=== PATIENT | male | born 1950 | race Caucasian/White ===

== ENCOUNTER 2016-11-10 12:48 | Inpatient (IN) | payer MEDICARE, MEDICAID ==
[~2016-11-10] VITALS: Ht 182.8 cm; Wt 103.9 kg
[2016-11-10] VITALS (10 sets, daily range): BP systolic 115–170; BP diastolic 71–97
--- NOTE | ~2016-11-10 | EKG ---
[place], [place] ELECTROCARDIOGRAM REPORT NAME: DEBORAH SANTACRUZ UNIT #: [id number] ROOM: 421 DOCTOR: PAM ALVARADO MD BIRTHDATE: [birth year] DOS: 11/11/2016 TIME: 1236 hours. Normal sinus rhythm at 60 beats per minute. Poor R-wave progression is present. Possible old anterior wall ME. An old inferior wall ME is also noted. There is no significant change from ECG of last week. PAM ALVARADO MD CM:EKGRPT:ELECTROCARDIOGRAM REPORT [id number] 44 PAM ALVARADO MD
--- NOTE | ~2016-11-10 | CON ---
[place], [place] REPORT OF CONSULTATION NAME: DEBORAH SANTACRUZ [facility] #: [id number] UNIT #: [id number] ROOM: 421 DOCTOR: PAM ALVARADO MD BIRTHDATE: [birth year] DOS: 11/12/2016 HISTORY OF PRESENT ILLNESS: This is a 66-year-old -[place] man who is in and out of this hospital almost every week, he has had admissions in [facility] as well and generally nothing really pans out and he is discharged. He comes back again with vague symptoms. He was discharged home just a few days ago and now comes back because of right lateral abdominal pain. He does not complain of any chest pain or heaviness in the chest. He has chronic shortness of breath. He has not had any palpitation, dizziness, or loss of consciousness, although he has taken a fall recently. He has morbid obesity, COPD, some speech problems, essential hypertension, diabetes mellitus, hyperlipidemia, cholecystectomy, but a year and a half or 2 ago, I had stented the right coronary artery and subsequent study had demonstrated patent stent. His LV systolic function has been normal. He does not smoke. I believe he lives at home. He is on numerous medications. His cardiac medications included atorvastatin, carvedilol, furosemide, Protonix, potassium chloride, ranolazine, nitroglycerin sublingually. PHYSICAL EXAMINATION: GENERAL: The patient is morbidly obese. He has a rash on the left side of the face and the neck. His complexion is fine. He is not tachypneic. His temperature is normal. VITAL SIGNS: Pulse is regular at 80 beats per minute, blood pressure of 128/67. NECK: JVP difficult to assess because of short and big neck. HEART: No murmurs are present. There is no cardiomegaly. There is no edema in lower extremities. LUNGS: Breath sounds are fairly decent with some adventitious sounds. LABORATORY DATA: An ECG showed normal sinus rhythm with old inferior wall AZ and perhaps old anterior wall AZ, although by his coronary angiogram, LAD was patent. Troponin I level is also normal. Hemoglobin is 7.7 grams. Creatinine 1.9. IMPRESSION: 1. This patient has coronary artery disease, but does not complain of chest pain. His pain is mainly on the right side of the abdomen. Initially, he winces, although the wince is rather delayed due to palpation and then I tried to distract him and he did not have any tenderness. 2. Severe anemia is present, he may need blood transfusion to raise his hemoglobin to 9-10 grams. 3. Chronic kidney disease. [place], [place] REPORT OF CONSULTATION NAME: DEBORAH SANTACRUZ UNIT #: [id number] ROOM: 421 DOCTOR: PAM ALVARADO MD BIRTHDATE: [birth year] I thank you for this consult. PAM ALVARADO MD CM:CONSTR:REPORT OF CONSULTATION 1738 11/13/16 0446 interface
--- NOTE | ~2016-11-10 | CON ---
[place], [place] REPORT OF CONSULTATION NAME: DEBORAH SANTACRUZ [facility] #: [id number] UNIT #: [id number] ROOM: 421 DOCTOR: LAURA WHITTINGTON M.D. BIRTHDATE: [birth year] DOS: 11/11/2016 WOUND CARE CONSULT HISTORY OF PRESENT ILLNESS: This is a 66-year-old male known to the Wound Clinic for a diabetic foot ulcer with history of recent osteomyelitis that was treated with oral Zyvox. The patient was taken to surgery and had incision and drainage of infection. This was done at the end of August and he has been following up in the Wound Clinic since September. He has been in and out of the hospital on multiple occasions since has been initially to the Wound Clinic with multiple complaints, complaints have varied from recurrent chest pains, recurrent shortness of breath, generalized weakness, difficulty ambulating. He was recently discharged from the hospital on 11/07/2016 where he said he felt good as I did see him upon the day of discharge and it was reported to me that the patient had been walking on his foot without a protection, without a sock or a shoe, just the dressing. He continues to have an open wound on the bottom of his right foot. In any case, the patient was discharged home and returns through the Emergency Room Department on 11/10/2016 with complaints of difficulty taking his medications, repetitive nausea, vomiting, generalized weakness since discharge. He was having difficulty keeping down any food or pills. PAST MEDICAL HISTORY: He has got multiple problems including anxiety which is chronic, ataxia, BPH, coronary artery disease, multiple stents, apparently recent acute SC with ST elevation, chronic diastolic heart failure, chronic kidney disease, COPD, depression, dizziness, gastric ulcer, GERD, gout, history of CVA with residual deficit, hypothyroidism, insulin-dependent diabetes, mixed hyperlipidemia, normocytic anemia, non-ST elevation SC, obesity, chronic osteomyelitis, acute renal calculus, seizure disorder, severe protein calorie malnutrition, history of chronic shortness of breath, ST elevation myocardial infarction, temporal arteritis. PAST SURGICAL HISTORY: He is status post coronary artery stents, rotator cuff surgery, right total hip replacement, laparoscopic cholecystectomy, status post appendectomy, he is status post left great toe amputation, status post amputation of the left foot, of a toe from the left foot as well. SOCIAL HISTORY: He does drink alcohol, 6-pack of beer a week, former smoker, history of cocaine abuse. The patient denies drug use. The patient reports that home health has not been coming in any more. Apparently, they discharged him from their practice. He was told by home health that his home situation is very unsanitary. FAMILY HISTORY: Mother has some history of stomach cancer, at age 40-50; father, coronary artery disease. ALLERGIES: Multiple and include DOXYCYCLINE, PIPERACILLIN, TAZOBACTAM, VANCOMYCIN. CURRENT MEDICATIONS: That have been ordered are as follows: Vitamin D 1999 [place], [place] REPORT OF CONSULTATION NAME: DEBORAH SANTACRUZ UNIT #: [id number] ROOM: 421 DOCTOR: LAURA WHITTINGTON M.D. BIRTHDATE: [birth year] units daily, sodium bicarbonate 650 p.o. b.i.d., Micro-K 10 mEq t.i.d., Zyvox 600 p.o. b.i.d., iron sulfate 325 daily, Lovenox 40 subcutaneously daily, Cymbalta 60 daily, Depakote 250 daily, Protonix 40 daily, levothyroxine 125 mcg daily, Ranexa 500 q.12, Dulera 200 mcg daily, Levemir subcutaneously q.12 hours, Neurontin 300 q.8, Coreg 25 p.o. b.i.d., Tessalon Perles 100 mg q.8 hours, Lipitor 40 daily, albuterol nebs p.r.n., magnesium, just a one-time dose. REVIEW OF SYSTEMS: The patient reports some chronic shortness of breath with exertion. Currently, he denies any chest pain. He said he had some abdominal discomfort, nausea. No fevers or chills are noted, but he did state that he felt cold at home. He does have a rash present on his face. He reports that his dressing was removed yesterday in hospital. I had put a dressing prior to discharge on Thursday, it should have been changed on Thursday. However, apparently he kept the dressing on and it was removed yesterday; however, a new dressing was not applied, not even just plain Telfa or 4 x 4, it was just open to air when I walked into the room. He offers no other specific complaints. PHYSICAL EXAMINATION: VITAL SIGNS: From this morning, his temperature is 97.7, pulse of 71, respirations 20, blood pressure is 102/63, pulse ox is 98%. GENERAL: The patient appears to be in no acute respiratory distress. He is pleasant and cooperative. He does have a diffuse erythematous rash on his face. He had had a rash on his face on prior occasions; however, does seem more prominent today than before. NECK: I do not appreciate any JVD. LUNGS: Fairly clear. CARDIOVASCULAR: S1, S2 regular rate and rhythm. ABDOMEN: Soft, slightly tender in the epigastric region on examination at this time. EXTREMITIES: He has no edema. His pulses are palpable. He has got a wound that is measuring approximately 7 cm in length by 0.7 in width and 0.5 in depth, possibly in the deepest part; however, it measures slightly deeper at 0.6-0.7. The undermining that was noted last time is much improved by my exam, there is still some fibrin slough present in the most distal part of the wound, the closest by the toes. There is some necrotic tissue still present, but overall I do not appreciate any redness. There is no purulence. There is no odor and it is not acutely tender to touch. I can feel bone with probing, however, it is not visible as it was last time I had examined him. LABORATORY DATA: His white count is 6.5. His hemoglobin is 8.8, hematocrit is 27.6, platelets are 103. Initial troponin was negative. Blood cultures were done. Chest x-ray shows no acute pulmonary process. The patient had an abdominal and pelvic CT which showed a hyperdense cyst of the lower pole of the right kidney, cortical thinning of the kidneys, diverticulosis in the sigmoid area, status post cholecystectomy. His BUN was 35, his creatinine is 2.21. Hemoglobin A1c is 8.6. Lactic acid is 3.4, down to 2.9. C-reactive protein on the 10th was 1.79, last albumin is 2.7 and prealbumin is 12. ASSESSMENT AND PLAN: Multiple medical problems in this patient that are being managed by his medical team. His wound, however, seems to be stable. At this [place], [place] REPORT OF CONSULTATION NAME: DEBORAH SANTACRUZ UNIT #: [id number] ROOM: [facility] DOCTOR: NELSY Rodriguez,LAURA BIRTHDATE: [birth year] point clinically, it does not appear to be cellulitic in any way. I do not see any significant change as far as the wound goes. In fact, it does seem to be filling in. The undermined areas are also improved. I would wait to see what Infectious Disease says regarding this. If there is concern of a possible source of infection, perhaps an imaging study such as a CT scan without contrast may be helpful. He is on oral Zyvox. He does have a rash present on his face, the etiology of the rash is unclear, might possibly be related to medications at this point. The dressing orders were written for. I would continue to use some of the TheraHoney to help with some of the necrotic tissue that is still present and also pack the wound with Aquacel Ag. A very bulky dressing was applied and a gentle Yariel wrap was applied over this to help keep the dressing in place. I was concerned that when I walked into the room, the patient did not have a dressing on. He reports having no dressing on since yesterday when it was taken off, so this is of concern. I would definitely want this wound to be covered. I encouraged him to make sure that if he is going to be ambulating, he needs to keep the area protected, he does have a postop shoe. I will follow along with you. LAURA WHITTINGTON MD CM:CONSTR:REPORT OF CONSULTATION 1408 11/24/16 1219 interface
--- NOTE | ~2016-11-10 | CON ---
[place], [place] REPORT OF CONSULTATION NAME: DEBORAH SANTACRUZ [facility] #: [id number] UNIT #: [id number] ROOM: 421 DOCTOR: BLADIMIR MOYA MD BIRTHDATE: [birth year] DOS: 11/11/2016 REASON FOR CONSULTATION: Osteomyelitis, on treatment. CHIEF COMPLAINT: Dizziness. HISTORY OF PRESENTING ILLNESS: This is a 66-year-old man whom I have recently seen about a week ago, now presenting with dizziness and nausea and vomiting. He was recently admitted and discharged a few days ago for same complaints and symptomatically got better in the next few days and was discharged home. He had been on oral Zyvox twice daily for the last 5 weeks. He will finish 6 weeks of treatment next week for the osteomyelitis associated with MRSA and he had been following up with wound care for the same. His wound had been healing well except the proximal portion, which is still slow to heal, but no real drainage. Of note, he admitted that he had been taking Cymbalta at home, although he was advised not to take Cymbalta while on Zyvox. PAST MEDICAL HISTORY: Positive for history of anxiety, ataxia, BPH, coronary artery disease, diastolic heart failure, chronic kidney disease, COPD, depression, dizziness, GERD, gout, stroke, hypothyroidism, insulin-dependent diabetes mellitus, hyperlipidemia, coronary artery disease, osteomyelitis, temporal arteritis. PAST SURGICAL HISTORY: History of coronary artery stent, rotator cuff surgery, total hip replacement, laparoscopic cholecystectomy, amputation of left great toe, and left fourth toe amputation, I and D. SOCIAL HISTORY: Still smokes about 6 pack of beer per week. Former smoker, occasionally cocaine use. No marijuana use. FAMILY HISTORY: Mother had stomach cancer. Father had coronary artery disease. ALLERGIES: Reviewed. HE IS ALLERGIC TO PIPERACILLIN, TAZOBACTAM, which causes him to have rash and trouble breathing as well as VANCOMYCIN with face rash and trouble breathing. Per documentation, he is allergic to DOXYCYCLINE, which causes rash and trouble breathing, but when I asked the patient, he said he did not know that he is allergic to doxycycline and he only has allergy to PENICILLIN antibiotics and he is willing to try doxycycline. HOME MEDICATIONS: Reviewed. CURRENT INPATIENT MEDICATIONS: Reviewed. REVIEW OF SYSTEMS: A 14-review of systems otherwise negative unless otherwise specified in the HPI. PHYSICAL EXAMINATION: VITAL SIGNS: Showed temperature of 97.3, heart rate 65, blood pressure of 102/57, respiratory rate of 20, pulse ox 98 on room air. GENERAL APPEARANCE: Awake, alert, oriented to time, place and person. No acute [place], [place] REPORT OF CONSULTATION NAME: DEBORAH SANTACRUZ UNIT #: [id number] ROOM: 421 DOCTOR: BLADIMIR MOYA MD BIRTHDATE: [birth year] distress. Oral cavity moist and intact. NECK: Supple, no JVD, no lymphadenopathy. HEART: Regular rate and rhythm. S1, S2 normal. No murmurs, gallops or rubs. LUNGS: Clear to auscultation. Equal air entry bilaterally. ABDOMEN: Soft, nontender, nondistended. Bowel sounds heard. EXTREMITIES: Warm to touch. Pulses palpated bilaterally equal. Right foot with a 7-cm wound on the plantar aspect of the foot with a slow healing on the proximal portion. LABORATORY DATA: Reviewed. WBC of 6.5, hemoglobin of 8.8, platelets were 103. Chemistry showing BUN of 35; and creatinine of 2.2, baseline of 1.65. Microbiology from the wounds in the past showed MRSA sensitive to doxycycline, Bactrim, and clindamycin. Sed rate and C-reactive protein reviewed. Pathology in the past on 10/08/2016 has shown acute osteomyelitis. Lactic acid was 2.4 on admission, later it was 2.9. ASSESSMENT AND PLAN: 1. Adverse drug reaction likely secondary to linezolid with interaction with Cymbalta. Linezolid is known to cause a serotonin-like syndrome with SSRI, but the patient has no classical symptoms of serotonin syndrome. He has nausea and vomiting, but no high grade fever. He does have lactic acidosis. I will discontinue the Zyvox at this point. He was asked not to take Cymbalta as well before, but he had been taking the same in the last few weeks. I would repeat lactic acid tomorrow. I will get a sed rate and C-reactive protein repeated. He also a rash, which he thinks is secondary to allergy to topical moisturizers he had been using on his previous admission in the hospital. 2. Acute osteomyelitis of the right foot with MRSA. Currently, on week 5 of Zyvox. We will stop Zyvox and switch him to doxycycline p.o. 100 mg twice daily for one more week. The patient has an allergy documented to doxycycline, but the patient says he is allergic only to PENICILLIN ANTIBIOTICS AND VANCOMYCIN. He is willing to try doxycycline. 3. Acute follicular rash on his face, chest and upper back, likely mucocutaneous candidiasis. Try topical antifungals and see how he responds. We will also repeat sed rate and CRP tomorrow morning and follow. BLADIMIR MOYA MD CM:CONSTR:REPORT OF CONSULTATION 1702 11/28/16 0850 interface
[~2016-11-10 12:48] MED LIST: 'PARAFON FORTE500 M1 PO; 'XANAX1 MG PO; ABILIFY2 MG PO; ACETAMINOPHEN-H1 TA2 PO; ACTOS45 MG PO; ALBUTEROL0.09 MG/A2 IH; ALLOPURINOL100 MG PO; ALPRAZOLAM1 M2 PO; AMLODIPINE10 MG PO; AMLODIPINE5 MG PO; AMOX/CLAV POT 81 TAB PO; APLISOL5 TU/0.1 M ID; APRESOLINE25 MG PO; ASPIR LOW81 MG PO; ASPIRIN ADULT L81 M2 PO; ASPIRIN325 MG PO; ASPIRIN81 M1 PO; ATARAX25 MG PO; ATIVAN1 MG PO; AUGMENTIN 875 M1 TA1 PO; AUGMENTIN 875 M1 TAB PO; BACTRIM DS 8001 TA1 PO; BENADRYL25 M1 PO; CALCIUM CITRATE1 TA7 PO; CATAFLAM50 MG PO; CEFTIN250 MG PO; CENTRUM1 TAB PO; CILOXAN 10 ML10 ML; CILOXAN 5 ML5 M1 OP; CILOXAN 5 ML5 M1 OT; CIPRO500 MG PO; CIPRO500 MG/5 M PO; CIPROFLOXACIN 110 ML OPH; CIPROFLOXACIN 55 M2 OP; CIPROFLOXACIN500 MG PO; CLARITIN10 MG PO; CLINDAMYCIN HC300 MG PO; COLACE100 MG PO; COREG12.5 M1 PO; COREG25 MG PO; CRESTOR20 MG PO; CRESTOR5 MG PO; CYMBALTA60 M1 PO; CYMBALTA60 MG PO; Carafate1 GM PO; Carafate1 GM/10 ML PO; DARVOCET N 1001 TAB PO; DAYPRO600 M1 PO; DEEP SEA 45 ML45 ML NAS; DEPAKOTE DR500 MG PO; DEPAKOTE SPRIN125 MG PO; DEPAKOTE250 MG PO; DIVALPROEX SOD250 MG PO; DIVALPROEX SOD500 MG PO; DOXYCYCLINE MO100 MG PO; DULCOLAX R; DULCOLAX10 MG R; DULOXETINE20 MG PO; DULOXETINE60 MG PO; DUONEB 3 MG/3 ML3 M1 INH; Depakote ER500 MG PO; Depakote250 MG PO; Depakote500 MG PO; Duoneb 3ML 3 MG/3 ML INH; EFFIENT10 M1 PO; ELIMITE 5%60 GM T; FEOSOL325 MG PO; FERROUS SULFATE65 MG PO; FLAGYL500 MG PO; FLEET 135 ML135 ML R; FLEET ENEMA 13135 ML R; FLEXERIL10 MG PO; FLOMAX0.4 MG PO; FOLIC ACID1 MG PO; FUROSEMIDE20 M1 PO; GABAPENTIN300 MG PEG; GLIPIZIDE10 MG PO; GLIPIZIDE5 MG PO; HALDOL0.5 MG PO; HEP-LOCK100 U/ML IV; HUMALOG SC; HUMALOG100 U/ML SC; HYDROCODONE BIT1 T11 PO; HYDROCODONE-APA1 TA1 PO; IMDUR SA30 MG PO; IMDUR SA60 M1 PO; INSULIN-HUMA100 U/ML SC; KEFLEX500 MG PO; KLOR-CON 1010 ME1 PO; KLOR-CON M1010 ME1 PO; LANTUS SOLOS100 U/M1 SC; LANTUS100 U/ML SC; LANTUS100 U/ML SQ; LEVAQUIN500 M2 PO; LEVAQUIN750 M1 PO; LEVEMIR FLEX100 U/ML SC; LEVEMIR10 ML SQ; LEVOFLOXACIN500 MG PO; LEVOTHYROXIN0.025 M1 PO; LEVOTHYROXIN0.025 MG PO; LEVOTHYROXIN0.125 M1 PO; LIDODERM 5% PATC1 EA T; LIPITOR20 MG PO; LIPITOR40 MG PO; LISINOPRIL10 M1 PO; LISINOPRIL20 MG PO; LODINE PO; LOMOTIL 0.025 M1 TA1 PO; LOPRESSOR50 M1 PO; Lopressor25 MG PO; MAG-AL PLUS 3030 ML PO; MAG-OX 400400 MG PO; MAGNESIUM OXID400 MG PO; MAGOX 400400 MG PO; MEDROL DOSEPAK4 MG PO; MERREM IV1 GM IV; METICORTEN1 MG PO; METOPROLOL SR25 MG PO; METOPROLOL SR50 MG PO; METOPROLOL SUCC25 M2 PO; METOPROLOL SUCC50 M1 PO; METOPROLOL50 MG PO; MIRALAX17 GM PO; MIRTAZAPINE15 M2 PO; MOM30 ML PO; MOTRIN600 MG PO; MOTRIN800 MG PO; MULTIPLE VITAMI1 CAP PO; NAPROSYN500 MG PO; NAPROXEN250 MG PO; NATURE'S BLEND F1 MG PO; NEURONTIN100 MG PO; NEURONTIN300 MG PO; NEURONTIN600 MG PO; NITROSTAT0.4 MG SL; NO MED LIST; NORCO 325 MG-51 TAB PO; NORCO 5-325 TA1 EACH PO; NORFLEX100 MG PO; NORVASC5 MG PO; NOVOLIN N100 U/ML SC; NOVOLOG FLEX100 U/ML SC; NOVOLOG1 UNIT/0.0 SC; OMNICEF300 MG PO; OXYCODONE5 M1 PO; PANTOPRAZOLE SO40 MG PO; PERCOCET 325 MG1 TA2 PO; PLAVIX75 M1 PO; POTASSIUM CHLO10 ME4 PO; PRAVACHOL40 MG PO; PRAVASTATIN SOD40 MG PO; PREDNISONE10 MG PO; PREDNISONE20 M1 PO; PRILOSEC10 MG PO; PRILOSEC20 M1 PO; PRILOSEC20 M2 PO; PRILOSEC20 MG PO; PRINIVIL20 M1 PO; PROAIR HFA8.5 GM INH; PROTONIX40 MG PO; PULMICORT RES0.25 M1 INH; PULMICORT RESP0.5 MG INH; RANEXA500 M1 PO; RANEXA500 MG PO; REMERON15 M2 PO; ROBAXIN750 MG PO; SANTYL250 U/GM T; SENEXON-S 50 MG1 TAB PO; SEROQUEL100 MG PO; SEROQUEL50 MG PO; SLOW MAG 110 MG64 MG PO; SODIUM BICARBO650 MG PO; SYMBICORT1 AE1 IH; SYMBICORT1 AE1 INH; SYMBICORT1 AER IH; TESSALON PERLE100 M1 PO; TICAGRELOR PO; TOPROL XL50 M1 PO; TOPROL-XL50 MG PO; TORADOL10 MG PO; TRAMADOL HCL50 MG PO; TRIAMCINOLONE AC0.1% T; TYLENOL ES500 MG PO; TYLENOL325 M1 PO; TYLENOL325 M2 PO; Tobradex 0.3-0.15 ML OPH; ULTRAM50 MG PO; VENTOLIN H0.09 MG/AC INH; VIBRAMYCIN100 MG PO; VICODIN 5-3001 EACH PO; VICODIN 5/500 505 MG PO; VICODIN 500 MG-1 TAB PO; VICODIN ES 7501 TA1 PO; VISTARIL25 M2 PO; VITAMIN D31000 IU PO; VITAMIN D32000 UNIT PO; VITAMIN D50000 I1 PO; VITAMIN D50000 I3 PO; VOLTAREN50 MG PO; XANAX0.5 MG PO; XANAX1 MG PO; ZANTAC 150150 MG PO; ZITHROMAX Z PA250 MG PO; ZITHROMAX250 MG PO; ZOFRAN ODT4 MG PO; ZOFRAN ODT4 MG SL; ZOFRAN4 MG PO; ZOVIRAX800 MG PO; ZYVOX600 MG PO
[2016-11-10 14:03] LABS: BASO % 0.2 % (0.0-1.0); EOS # 0.2 10*3/uL (0.0-0.4); EOS % 1.9 % (1.0-4.0); HEMATOCRIT 34.4 % (42.0-52.0); HEMOGLOBIN 11.1 g/dl (14.0-18.0); LYMPH # 2.4 10*3/uL (1.3-4.4); MEAN CELL VOLUME 88.4 fl (80.0-94.0); MEAN CORPUSCULAR HGB 28.5 pg (27.0-31.0); MEAN CORPUSCULAR HGB CONC 32.3 g/dl (33.0-37.0); MEAN PLATELET VOLUME 11.3 fl (9.6-12.3); MONO # 0.7 10*3/uL (0.1-1.0); MONO % 7.4 % (3.0-9.0); NEUT # 6.5 10*3/uL (2.3-7.9); NEUT % 66.2 % (47.0-73.0); PLATELET COUNT AUTOMATED 130 10*3/uL (130-400); RED BLOOD COUNT 3.89 10*6/uL (4.50-5.90); RED CELL DISTRI WIDTH 18.2 % (0-14.5); WHITE BLOOD COUNT 9.8 10*3/uL (4.8-10.8)
[2016-11-10 14:22] LABS: ALBUMIN 3.3 gm/dl (3.1-4.5); BILIRUBIN, TOTAL 0.6 mg/dl (0.2-1.0); POTASSIUM 5.1 mmol/L (3.5-5.1); TOTAL PROTEIN 7.1 gm/dL (6.4-8.2)
[2016-11-10 16:00] LABS: LA>2 REFLEX 2 HR DRAW NOW
[2016-11-10 16:15] LABS: LA>2 RFLX FOLLOW UP AT 2 HRS 2.4 mmol/L (0.4-2.0)
[2016-11-10 16:18] LABS: INTERNATIONAL NORM RATIO 1.1 (2.0-3.5)
[2016-11-10 16:27] LABS: MAGNESIUM 1.1 mg/dL (1.5-2.1)
[2016-11-10 18:07] LABS: LA>2 REFLEX 4 HR DRAW NOW
[2016-11-10 18:51] LABS: CKMB 1.9 ng/ml (0.5-3.6)
[2016-11-11] VITALS: BP 105/55
[2016-11-11 00:46] LABS: CKMB 1.7 ng/ml (0.5-3.6)
[2016-11-11 06:17] LABS: BASO % 0.3 % (0.0-1.0); EOS # 0.3 10*3/uL (0.0-0.4); EOS % 3.9 % (1.0-4.0); LYMPH # 2.1 10*3/uL (1.3-4.4); MEAN CELL VOLUME 89.6 fl (80.0-94.0); MEAN CORPUSCULAR HGB 28.6 pg (27.0-31.0); MEAN CORPUSCULAR HGB CONC 31.9 g/dl (33.0-37.0); MEAN PLATELET VOLUME 11.5 fl (9.6-12.3); MONO # 0.7 10*3/uL (0.1-1.0); MONO % 10.9 % (3.0-9.0); NEUT # 3.4 10*3/uL (2.3-7.9); NEUT % 52.4 % (47.0-73.0); PLATELET COUNT AUTOMATED 103 10*3/uL (130-400); RED BLOOD COUNT 3.08 10*6/uL (4.50-5.90); RED CELL DISTRI WIDTH 17.8 % (0-14.5); WHITE BLOOD COUNT 6.5 10*3/uL (4.8-10.8)
[2016-11-11 06:20] LABS: CKMB 0.8 ng/ml (0.5-3.6)
[2016-11-11 06:25] LABS: HEMATOCRIT 27.6 % (42.0-52.0); HEMOGLOBIN 8.8 g/dl (14.0-18.0)
[2016-11-11 06:29] LABS: INTERNATIONAL NORM RATIO 1.1 (2.0-3.5); PROTHROMBIN TIME 11.9 SECONDS (9.0-12.4)
[2016-11-11 06:32] LABS: ALBUMIN 2.7 gm/dl (3.1-4.5); BILIRUBIN, TOTAL 0.5 mg/dl (0.2-1.0); POTASSIUM 4.5 mmol/L (3.5-5.1); TOTAL PROTEIN 5.8 gm/dL (6.4-8.2)
[2016-11-11 06:41] LABS: FREE T4 0.92 ng/dl (0.76-1.46); MAGNESIUM 1.7 mg/dL (1.5-2.1)
[2016-11-11 06:42] LABS: THYROID STIM HORMONE (HS) 7.12 uIU/ml (0.358-4.75)
[2016-11-11 08:00] VITALS: BP 102/63
[2016-11-11 12:00] VITALS: BP 84/60
[2016-11-11 15:47] LABS: BILIRUBIN NEGATIVE (NEGATIVE); BLOOD NEGATIVE (NEGATIVE); COLOR YELLOW (YELLOW); GLUCOSE 1+ (NEGATIVE); KETONE TRACE (NEGATIVE); LEUKO ESTERASE NEGATIVE (NEGATIVE); NITRITE NEGATIVE (NEGATIVE); PROTEIN 1+ (NEGATIVE); SPECIFIC GRAVITY >= 1.030 (1.005-1.030); UROBILINOGEN 0.2 E.U./dl (0.2-1.0)
[2016-11-11 16:00] VITALS: BP 102/57
[2016-11-11 16:04] LABS: CLARITY SL CLOUDY (CLEAR); HYALINE CAST 35-40; MUCOUS TRACE; RBC 0-2 rbc/hpf (0-2); URINE REFLEX COMMENT NO (NO)
[2016-11-11 18:24] LABS: CKMB 1.9 ng/ml (0.5-3.6)
[2016-11-11 20:00] VITALS: BP 119/62
[2016-11-12] VITALS: BP 120/65
[2016-11-12 01:25] LABS: CKMB 1.3 ng/ml (0.5-3.6)
[2016-11-12 06:32] LABS: BASO % 0.2 % (0.0-1.0); EOS # 0.2 10*3/uL (0.0-0.4); EOS % 4.4 % (1.0-4.0); HEMATOCRIT 24.4 % (42.0-52.0); HEMOGLOBIN 7.7 g/dl (14.0-18.0); LYMPH # 1.8 10*3/uL (1.3-4.4); LYMPH % 34.2 % (27.0-41.0); MEAN CELL VOLUME 90.7 fl (80.0-94.0); MEAN CORPUSCULAR HGB 28.6 pg (27.0-31.0); MEAN CORPUSCULAR HGB CONC 31.6 g/dl (33.0-37.0); MEAN PLATELET VOLUME 11.9 fl (9.6-12.3); MONO # 0.4 10*3/uL (0.1-1.0); MONO % 7.6 % (3.0-9.0); NEUT # 2.8 10*3/uL (2.3-7.9); PLATELET COUNT AUTOMATED 82 10*3/uL (130-400); RED BLOOD COUNT 2.69 10*6/uL (4.50-5.90); RED CELL DISTRI WIDTH 17.8 % (0-14.5); WHITE BLOOD COUNT 5.3 10*3/uL (4.8-10.8)
[2016-11-12 06:43] LABS: CKMB 1.5 ng/ml (0.5-3.6)
[2016-11-12 07:10] LABS: POTASSIUM 5.2 mmol/L (3.5-5.1)
[2016-11-12 07:58] VITALS: BP 150/62
[2016-11-12 12:00] VITALS: BP 100/72
[2016-11-12 16:00] VITALS: BP 128/67
[2016-11-12 20:00] VITALS: BP 128/60
[2016-11-13] VITALS: BP 160/64
[2016-11-13 06:55] LABS: BASO % 0.2 % (0.0-1.0); EOS # 0.2 10*3/uL (0.0-0.4); EOS % 2.9 % (1.0-4.0); HEMATOCRIT 24.8 % (42.0-52.0); HEMOGLOBIN 7.8 g/dl (14.0-18.0); LYMPH # 1.7 10*3/uL (1.3-4.4); LYMPH % 29.4 % (27.0-41.0); MEAN CELL VOLUME 90.2 fl (80.0-94.0); MEAN CORPUSCULAR HGB 28.4 pg (27.0-31.0); MEAN CORPUSCULAR HGB CONC 31.5 g/dl (33.0-37.0); MEAN PLATELET VOLUME 11.8 fl (9.6-12.3); MONO # 0.5 10*3/uL (0.1-1.0); MONO % 8.7 % (3.0-9.0); NEUT # 3.4 10*3/uL (2.3-7.9); NEUT % 58.1 % (47.0-73.0); PLATELET COUNT AUTOMATED 94 10*3/uL (130-400); RED BLOOD COUNT 2.75 10*6/uL (4.50-5.90); RED CELL DISTRI WIDTH 17.6 % (0-14.5); WHITE BLOOD COUNT 5.9 10*3/uL (4.8-10.8)
[2016-11-13 07:29] LABS: POTASSIUM 5.5 mmol/L (3.5-5.1)
[2016-11-13 07:43] VITALS: BP 140/74
[2016-11-13] MEDS ORDERED: DOXYCYCLINE MO100 M1 PO (11:02)
[2016-11-13] MEDS ORDERED: LASIX20 MG PO (11:02)
[2016-12-11] MEDS ORDERED: PREDNISONE20 M1 PO (14:58)
[2017-01-01] MEDS ORDERED: PRINIVIL20 M1 PO (10:22)
[2017-01-01] MEDS ORDERED: METOPROLOL SUCC50 M1 PO (10:23)
[2017-01-01] MEDS ORDERED: PANTOPRAZOLE SO40 MG PO (10:24)
[2017-01-01] MEDS ORDERED: K-TAB10 MEQ PO (10:25)
[2017-01-01] MEDS ORDERED: RANEXA500 M1 PO (10:26)
[2017-01-01] MEDS ORDERED: ANTACID II 1601 CTB PO (10:27)
[2017-01-01] MEDS ORDERED: FINASTERIDE5 M1 PO (10:28)
[2017-01-01] MEDS ORDERED: AMLODIPINE BES1 TAB PO (10:28)
[2017-01-01] MEDS ORDERED: TAMSULOSIN HCL0.4 MG PO (10:29)
[2017-01-01] MEDS ORDERED: INVANZ1 GM IV (10:30)
[2017-01-01] MEDS ORDERED: LEVEMIR10 ML SC (10:30)
[2017-01-07] MEDS ORDERED: AMLODIPINE BESYL5 MG PO (09:40)
== END 2016-11-13 12:15 | disposition home or self-care (01) | DRG 871 ==
LOC: ED 12:48 → EDHOLD 17:47 → 4E 17:47
PROVIDERS: Family Medicine; Hospitalist; Registered Nurse
DX: A41.9 Sepsis, unspecified organism (principal); E43 Unspecified severe protein-calorie malnutrition; I13.0 Hypertensive heart and chronic kidney disease with heart failure and stage 1 through stage 4 chronic kidney disease, or unspecified chronic kidney disease; B37.89 Other sites of candidiasis; M86.171 Other acute osteomyelitis, right ankle and foot; L03.115 Cellulitis of right lower limb; N18.3 Chronic kidney disease, stage 3 (moderate); Z96.641 Presence of right artificial hip joint; E11.69 Type 2 diabetes mellitus with other specified complication; K52.9 Noninfective gastroenteritis and colitis, unspecified; D63.8 Anemia in other chronic diseases classified elsewhere; E11.65 Type 2 diabetes mellitus with hyperglycemia; E83.42 Hypomagnesemia; K21.9 Gastro-esophageal reflux disease without esophagitis; E78.2 Mixed hyperlipidemia; E66.01 Morbid (severe) obesity due to excess calories; F41.9 Anxiety disorder, unspecified; I25.10 Atherosclerotic heart disease of native coronary artery without angina pectoris; Z86.73 Personal history of transient ischemic attack (TIA), and cerebral infarction without residual deficits; I25.2 Old myocardial infarction; Z90.49 Acquired absence of other specified parts of digestive tract; Z68.31 Body mass index [BMI] 31.0-31.9, adult; Z87.891 Personal history of nicotine dependence; Z80.0 Family history of malignant neoplasm of digestive organs; Z82.49 Family history of ischemic heart disease and other diseases of the circulatory system; Z88.1 Allergy status to other antibiotic agents; Z79.4 Long term (current) use of insulin; Z79.899 Other long term (current) drug therapy

== ENCOUNTER 2016-11-15 11:46 | Emergency (ER) | payer MEDICARE, MEDICAID ==
[~2016-11-15] VITALS: Ht 182.8 cm; Wt 103.4 kg
[~2016-11-15 11:46] MED LIST changes: +DOXYCYCLINE MO100 M1 PO; +LASIX20 MG PO
[2016-11-15 11:54] VITALS: BP 163/90
[2016-11-15 12:22] LABS: BASO % 0.3 % (0.0-1.0); EOS # 0.2 10*3/uL (0.0-0.4); EOS % 2.2 % (1.0-4.0); HEMATOCRIT 27.3 % (42.0-52.0); HEMOGLOBIN 8.9 g/dl (14.0-18.0); IG # 0.2 10*3/uL (0.0-0.1); LYMPH # 2.2 10*3/uL (1.3-4.4); LYMPH % 24.5 % (27.0-41.0); MEAN CELL VOLUME 88.9 fl (80.0-94.0); MEAN CORPUSCULAR HGB CONC 32.6 g/dl (33.0-37.0); MEAN PLATELET VOLUME 11.2 fl (9.6-12.3); MONO # 0.5 10*3/uL (0.1-1.0); MONO % 6.1 % (3.0-9.0); NEUT # 5.7 10*3/uL (2.3-7.9); NEUT % 64.7 % (47.0-73.0); NUCLEATED RED BLOOD CELL 0.2 % (0.0-0.0); PLATELET COUNT AUTOMATED 114 10*3/uL (130-400); RED BLOOD COUNT 3.07 10*6/uL (4.50-5.90); RED CELL DISTRI WIDTH 18.1 % (0-14.5); WHITE BLOOD COUNT 8.8 10*3/uL (4.8-10.8)
[2016-11-15 12:36] LABS: ALBUMIN 2.9 gm/dl (3.1-4.5); BILIRUBIN, TOTAL 0.4 mg/dl (0.2-1.0); TOTAL PROTEIN 6.3 gm/dL (6.4-8.2)
[2016-11-15 13:17] LABS: BILIRUBIN NEGATIVE (NEGATIVE); BLOOD NEGATIVE (NEGATIVE); CLARITY CLEAR (CLEAR); COLOR YELLOW (YELLOW); GLUCOSE NEGATIVE (NEGATIVE); KETONE NEGATIVE (NEGATIVE); LEUKO ESTERASE NEGATIVE (NEGATIVE); NITRITE NEGATIVE (NEGATIVE); PROTEIN 1+ (NEGATIVE); UROBILINOGEN 0.2 E.U./dl (0.2-1.0)
[2016-11-15 13:31] LABS: BACTERIA TRACE; HYALINE CAST 16-20; URINE REFLEX COMMENT NO (NO)
[2016-11-15] MEDS ORDERED: ZOFRAN ODT4 MG SL (13:39)
[2016-12-11] MEDS ORDERED: PREDNISONE20 M1 PO (14:58)
[2017-01-01] MEDS ORDERED: PRINIVIL20 M1 PO (10:22)
[2017-01-01] MEDS ORDERED: METOPROLOL SUCC50 M1 PO (10:23)
[2017-01-01] MEDS ORDERED: PANTOPRAZOLE SO40 MG PO (10:24)
[2017-01-01] MEDS ORDERED: K-TAB10 MEQ PO (10:25)
[2017-01-01] MEDS ORDERED: RANEXA500 M1 PO (10:26)
[2017-01-01] MEDS ORDERED: ANTACID II 1601 CTB PO (10:27)
[2017-01-01] MEDS ORDERED: FINASTERIDE5 M1 PO (10:28)
[2017-01-01] MEDS ORDERED: AMLODIPINE BES1 TAB PO (10:28)
[2017-01-01] MEDS ORDERED: TAMSULOSIN HCL0.4 MG PO (10:29)
[2017-01-01] MEDS ORDERED: INVANZ1 GM IV (10:30)
[2017-01-01] MEDS ORDERED: LEVEMIR10 ML SC (10:30)
[2017-01-07] MEDS ORDERED: AMLODIPINE BESYL5 MG PO (09:40)
== END 2016-11-15 13:40 | disposition home or self-care (01) ==
LOC: ED 11:46
PROVIDERS: Registered Nurse
DX: R10.30 Lower abdominal pain, unspecified (principal); L03.211 Cellulitis of face; E11.65 Type 2 diabetes mellitus with hyperglycemia; Z95.5 Presence of coronary angioplasty implant and graft; Z96.641 Presence of right artificial hip joint; Z90.49 Acquired absence of other specified parts of digestive tract; Z87.891 Personal history of nicotine dependence; Z88.1 Allergy status to other antibiotic agents; Z88.8 Allergy status to other drugs, medicaments and biological substances

== ENCOUNTER 2016-11-18 09:38 | Emergency (ER) | payer MEDICARE, MEDICAID ==
[~2016-11-18] VITALS: Ht 182.8 cm; Wt 103.4 kg
--- NOTE | ~2016-11-18 | EKG ---
[place], [place] ELECTROCARDIOGRAM REPORT NAME: DEBORAH SANTACRUZ UNIT #: [id number] ROOM: DOCTOR: PAM ALVARADO MD BIRTHDATE: [birth year] DOS: 11/18/2016 TIME: 1002 hours. Normal sinus rhythm at 93 beats per minute. Old inferior wall TN. Probable old anterior wall TN. No previous tracing is available for comparison. PAM ALVARADO MD CM:EKGRPT:ELECTROCARDIOGRAM REPORT 1703 1800 PAM ALVARADO MD
[~2016-11-18 09:38] MED LIST changes: -AMLODIPINE BES1 TAB PO; -AMLODIPINE BESYL5 MG PO; -ANTACID II 1601 CTB PO; -CILOXAN 10 ML10 ML OPH; -COREG6.25 MG PO; -COSOPT 2%-0.5%10 ML OPH; -FINASTERIDE5 M1 PO; -Fioricet 325 MG1 TAB PO; -INVANZ1 GM IV; -K-TAB10 MEQ PO; -LATANOPROST 2.2.5 ML OP; -LEVEMIR10 ML SC; -MAGNESIUM400 MG PO; -TAMSULOSIN HCL0.4 MG PO
[2016-11-18 10:22] LABS: BASO % 0.2 % (0.0-1.0); EOS # 0.2 10*3/uL (0.0-0.4); EOS % 3.4 % (1.0-4.0); HEMATOCRIT 28.9 % (42.0-52.0); HEMOGLOBIN 9.2 g/dl (14.0-18.0); LYMPH # 1.9 10*3/uL (1.3-4.4); LYMPH % 33.4 % (27.0-41.0); MEAN CELL VOLUME 89.8 fl (80.0-94.0); MEAN CORPUSCULAR HGB 28.6 pg (27.0-31.0); MEAN CORPUSCULAR HGB CONC 31.8 g/dl (33.0-37.0); MEAN PLATELET VOLUME 11.1 fl (9.6-12.3); MONO # 0.5 10*3/uL (0.1-1.0); MONO % 8.6 % (3.0-9.0); NEUT % 53.9 % (47.0-73.0); PLATELET COUNT AUTOMATED 127 10*3/uL (130-400); RED BLOOD COUNT 3.22 10*6/uL (4.50-5.90); RED CELL DISTRI WIDTH 18.3 % (0-14.5); WHITE BLOOD COUNT 5.6 10*3/uL (4.8-10.8)
[2016-11-18 10:31] LABS: INTERNATIONAL NORM RATIO 1.1 (2.0-3.5); PROTHROMBIN TIME 12.2 SECONDS (9.0-12.4)
[2016-11-18 10:48] LABS: BILIRUBIN, TOTAL 0.4 mg/dl (0.2-1.0); POTASSIUM 4.7 mmol/L (3.5-5.1); TOTAL PROTEIN 6.4 gm/dL (6.4-8.2)
[2016-11-18 11:18] LABS: URINE AMPHETAMINES < 1000 (1000ng/ml); URINE BARBITURATES < 200 (200ng/ml); URINE COCAINE < 300 (300ng/ml)
[2016-11-18 14:07] VITALS: BP 131/73
[2016-11-18 14:26] LABS: CKMB 0.9 ng/ml (0.5-3.6)
[2016-11-18] MEDS ORDERED: Fioricet 325 MG1 TAB PO (14:39)
[2016-12-11] MEDS ORDERED: PREDNISONE20 M1 PO (14:58)
[2017-01-01] MEDS ORDERED: PRINIVIL20 M1 PO (10:22)
[2017-01-01] MEDS ORDERED: METOPROLOL SUCC50 M1 PO (10:23)
[2017-01-01] MEDS ORDERED: PANTOPRAZOLE SO40 MG PO (10:24)
[2017-01-01] MEDS ORDERED: K-TAB10 MEQ PO (10:25)
[2017-01-01] MEDS ORDERED: RANEXA500 M1 PO (10:26)
[2017-01-01] MEDS ORDERED: ANTACID II 1601 CTB PO (10:27)
[2017-01-01] MEDS ORDERED: AMLODIPINE BES1 TAB PO (10:28)
[2017-01-01] MEDS ORDERED: FINASTERIDE5 M1 PO (10:28)
[2017-01-01] MEDS ORDERED: TAMSULOSIN HCL0.4 MG PO (10:29)
[2017-01-01] MEDS ORDERED: LEVEMIR10 ML SC (10:30)
[2017-01-01] MEDS ORDERED: INVANZ1 GM IV (10:30)
[2017-01-07] MEDS ORDERED: AMLODIPINE BESYL5 MG PO (09:40)
== END 2016-11-18 15:07 | disposition home or self-care (01) ==
LOC: ED 09:38
PROVIDERS: Student in an Organized Health Care Education/Training Program
DX: R07.9 Chest pain, unspecified (principal); R06.02 Shortness of breath; R51 Headache; R05 Cough; J44.9 Chronic obstructive pulmonary disease, unspecified; I25.2 Old myocardial infarction; F41.9 Anxiety disorder, unspecified; I25.10 Atherosclerotic heart disease of native coronary artery without angina pectoris; F32.9 Major depressive disorder, single episode, unspecified; K21.9 Gastro-esophageal reflux disease without esophagitis; Z86.73 Personal history of transient ischemic attack (TIA), and cerebral infarction without residual deficits; M1A.9XX0 Chronic gout, unspecified, without tophus (tophi); I99.8 Other disorder of circulatory system; E30.9 Disorder of puberty, unspecified; E78.5 Hyperlipidemia, unspecified; D64.9 Anemia, unspecified; G40.909 Epilepsy, unspecified, not intractable, without status epilepticus; E78.2 Mixed hyperlipidemia; E11.22 Type 2 diabetes mellitus with diabetic chronic kidney disease; N18.3 Chronic kidney disease, stage 3 (moderate); M86.9 Osteomyelitis, unspecified; F14.10 Cocaine abuse, uncomplicated; F17.200 Nicotine dependence, unspecified, uncomplicated; Z88.1 Allergy status to other antibiotic agents; Z79.899 Other long term (current) drug therapy

== ENCOUNTER → 2016-11-18 | Outpatient (CLI) | payer MEDICARE, MEDICAID ==
[~2016-11-18] MED LIST changes: +AMLODIPINE BES1 TAB PO; +AMLODIPINE BESYL5 MG PO; +ANTACID II 1601 CTB PO; +CILOXAN 10 ML10 ML OPH; +COREG6.25 MG PO; +COSOPT 2%-0.5%10 ML OPH; +FINASTERIDE5 M1 PO; +Fioricet 325 MG1 TAB PO; +INVANZ1 GM IV; +K-TAB10 MEQ PO; +LATANOPROST 2.2.5 ML OP; +LEVEMIR10 ML SC; +MAGNESIUM400 MG PO; +TAMSULOSIN HCL0.4 MG PO
--- NOTE | ~2016-11-18 | PR ---
[place], [place] PROGRESS NOTE NAME: DEBORAH SANTACRUZ [facility] #: [id number] UNIT #: [id number] ROOM: DOCTOR: NELSY RodriguezLAURA BIRTHDATE: [birth year] DOS: 11/18/2016 WOUND CARE PROGRESS NOTE CHIEF COMPLAINT: Followup of diabetic foot ulcer of the right foot. HISTORY OF PRESENT ILLNESS: This is a 66-year-old male with type 2 diabetes, who has had a plantar wound with acute osteomyelitis of the right foot since the beginning of September. He continues to have an open wound that has healed quite a bit since first coming; however, he still has an area that goes straight to bone at the metatarsal area that is still present. He is maintained on oral antibiotics. Recently, he was switched from p.o. linezolid to p.o. doxycycline. The patient has been in and out of the hospitals on multiple occasions since his wound visit last 2 weeks ago for complaints of chest pains and shortness of breath, difficulty ambulating. The patient comes in today without any new specific complaints regarding the wound. He says he still has a lot of discomfort in his leg when he walks not particularly from the wound; however. He does not have home health coming any more. They have refused to come to his house due to unsanitary conditions per patient report. He said he was able to follow up with Dr. Nixon as an outpatient and states that Dr. Nixon told him, he has a lot of blocked areas that he is going to open up and he plans to do this sometime later this week. We do not have a full report regarding this at this time. The patient also has a history of recurrent chest pains. The etiology is unclear and he is complaining to us today in the wound clinic of chest pain that started last night associated with some shortness of breath and he does admit to a cough. He is not really able to tell me any alleviating or aggravating factors at this time, but he says he has had it all night long and still has it today and it is just around the entire chest. PHYSICAL EXAMINATION: VITAL SIGNS: Today, he is afebrile. His pulse is 74, respirations 18, blood pressure is 138/70. WOUND EXAMINATION: The wound is generally measuring slightly smaller at 6.5 x 0.5 x 0.8 in depth. At the distal part of the wound near the metatarsal area, it is still fairly deep. There is some visible necrotic tissue present in that part of the wound itself. The rest of the wound seems to be doing fairly well and looks clean. There is undermining still noted in the 11 to 1 o'clock position with the maximum depth of 1 cm. Debridement was done today of the wound. The tissue removed was fibrin, slough, and subcutaneous tissue. There was really a small amount of bleeding that was controlled with pressure. The post-debridement measurements are unchanged. The patient tolerated the debridement well. Cetacaine spray was used for topical anesthesia. Timeout was conducted prior to the start of the procedure. I did listen to the patient's lungs. They seem to be clear; however, he does have a prolonged expiratory phase. In addition, his cardiovascular exam is S1, S2, regular rate and rhythm. ASSESSMENT AND PLAN: Chronic wound, diabetic foot ulcer, Coleman stage 3. He continues to have bone exposed in the distal part of the wound. I am concerned about this part not healing still. I would like to use a collagen dressing for now and have him follow up in the Wound Clinic in one week. Due to the [place], [place] PROGRESS NOTE NAME: DE[facility]ANT[facility]CRUZ [id number] UNIT #: [id number] ROOM: DOCTOR: LAURA WHITTINGTON M.D. BIRTHDATE: [birth year] complaints of chest pain, I did notify the Emergency Room Department, spoke with Dr. Smith. The patient will be transferred to the ER for further evaluation. In addition, he also has some vascular disease. We do not have the exact report whether where the blockages are but hope to hear from Dr. Nixon's office soon. He apparently is planning a revascularization. I hope this will facilitate healing. I would like to order a more sturdy offloading device for him. We will see if we can order a low Air Walker to see if this will help facilitate healing. In addition, there is no sign of acute infection. I think that he would probably benefit from a wound VAC; however, since he still has a fair amount of depth to the wound. Due to the fact that he does not have home health, so this may be very difficult to realistically order as he is not going to be able to do the change. He does not have anybody who can reliably help him to change the wound VAC and ideally the patient probably would benefit from a detention facility; however, he apparently has refused going to these on multiple occasions. In addition, he also would be considered to meet criteria for HBO as he continues to have bone exposed despite the antibiotics and bone debridement; however, due to his recurrent complaints of shortness of breath and recurrent chest pains, it is not ideal for him to be going into the hyperbaric chamber with these continued complaints. Follow up in the Wound Care Clinic once medically stable in one week. LAURA WHITTINGTON MD CM:RICHI [id number] LAURA WHITTINGTON M.D. 11/19/16 0757 interface
== END ==
LOC: WOUNDCARE 01:49
DX: E11.621 Type 2 diabetes mellitus with foot ulcer (principal); L97.512 Non-pressure chronic ulcer of other part of right foot with fat layer exposed; E11.69 Type 2 diabetes mellitus with other specified complication; M86.071 Acute hematogenous osteomyelitis, right ankle and foot; I99.9 Unspecified disorder of circulatory system; R06.02 Shortness of breath

== ENCOUNTER 2016-11-22 12:47 | Inpatient (IN) | payer MEDICARE, MEDICAID ==
[~2016-11-22] VITALS: Ht 182.9 cm; Wt 105.7 kg
--- NOTE | ~2016-11-22 | PR ---
[place], [place] PROGRESS NOTE NAME: DEBORAH SANTACRUZ [facility] #: [id number] UNIT #: [id number] ROOM: 520 DOCTOR: PAM ALVARADO MD BIRTHDATE: [birth year] DOS: 11/27/2016 SUBJECTIVE: He has been walking around a little bit and has been eating well, has not had any abdominal pain, just some discomfort on the lateral side of the abdomen and the chest. His breathing is fine. No palpitations. This patient has had numerous admissions and he comes to the hospital almost on a weekly or bi-weekly basis and usually workup is negative. PHYSICAL EXAMINATION: GENERAL: The patient who is pleasant, alert, morbidly obese, difficult to comprehend his speech. VITAL SIGNS: Pulse is regular at 64, blood pressure 142/70. NECK: JVP is normal. LUNGS: Clear. EXTREMITIES: 1+ pedal edema. LABORATORY DATA: He had an echocardiogram done 2 days ago. It demonstrated an LV ejection fraction of 55% to 60% and normal right ventricular systolic function, mildly hypertrophic interventricular septum, trace to mild aortic incompetence, and trace to mild pulmonic incompetence. IMPRESSION: This patient has coronary artery disease, but his symptoms are most likely noncardiac. From cardiac standpoint, he should be ambulated and discharged home. PAM ALVARADO MD CM:PNTRANS [id number] PMA ALVARADO MD 01/01/17 1024 interface
--- NOTE | ~2016-11-22 | CON ---
[place], [place] REPORT OF CONSULTATION NAME[id number] UNIT #: [id number] ROOM: 520 DOCTOR: RADHA OMNCADA MD BIRTHDATE: [birth year] DOS: 11/23/2016 NEPHROLOGY CONSULTATION REASON FOR CONSULTATION: Acute kidney injury. HISTORY OF PRESENT ILLNESS: This is a 66-year-old male. He has a history of known chronic kidney disease, BPH, coronary artery disease, COPD, and hypertension. He has been seen by our service on a number of occasions. It seems he has baseline creatinine in the low to middle 1s range. He was admitted to the hospital, it seems recently due to feeling dizzy and had questionable syncopal episode. He is receiving IV fluids and his creatinine has been elevated to 1.6, fairly stable. He denies shortness of breath, nausea, vomiting, fevers, chills or night sweats. His creatinine today was 1.56 and was noted to be 1.64 yesterday. It has also been noted that the patient has had some very high sugar readings, but this seems to be a little better controlled. Again, I do not know the details of what exactly has transpired, but he is being admitted for observation and further workup. I did see that he had a CT scan performed without contrast, which showed no acute intracranial process. HOME MEDICATIONS: Included nitroglycerin, albuterol, Neurontin, Vicodin, levothyroxine, Lipitor, iron, sodium bicarbonate tablets, vitamin D, Depakote. ALLERGIES: Listed DOXYCYCLINE, TAZOBACTAM, PIPERACILLIN, VANCOMYCIN. PAST MEDICAL HISTORY: 1. Acute on chronic kidney disease. 2. Hypertension. 3. Anxiety. 4. BPH. 4. Coronary artery disease. 5. COPD. 6. Depression. 7. Gastric ulcer. 8. GERD. 9. Gout. 10. History of CVA. 11. Hypothyroidism. 12. Diabetes mellitus. 13. Hyperlipidemia. 14. Renal calculi. 15. Seizure disorder. 16. History of questionable temporal arteritis. 17. Cardiac stenting. 18. Rotator cuff surgery. 19. Total right hip replacement. 20. Laparoscopic cholecystectomy. 21. Appendectomy. 22. Amputation of left great toe. 23. Amputation of the fourth toe. [place], [place] REPORT OF CONSULTATION NAME: DEBORAH SANTACRUZ UNIT #: [id number] ROOM: 520 DOCTOR: RADHA MONCADA MD BIRTHDATE: [birth year] 24. Lower extremity wound and peripheral vascular disease. 25. History of renal lesion. FAMILY HISTORY: No reported history of chronic kidney disease, otherwise, noncontributory. SOCIAL HISTORY: He has a previous history of tobacco abuse. He does drink alcohol about 6 beers per week, previously had a history of cocaine abuse, details unclear. REVIEW OF SYSTEMS: As per HPI, otherwise a 10-point review of systems was reviewed and was negative. PHYSICAL EXAMINATION: VITAL SIGNS: Temperature 97.3, pulse 65, respiratory rate 20, blood pressure 126/69. GENERAL: He is awake, alert, resting comfortably, in no acute distress. HEENT: Shows no JVD. Sclerae anicteric. Mucous membranes were moist. Oropharynx was clear. NECK: Supple. Trachea was midline. There is no neck lymphadenopathy. There is no thyromegaly. LUNGS: Clear. No crackles, wheezes, or rales. No tactile fremitus. He is not using accessory muscles of respiration. HEART: Normal S1, S2. No rub, thrill or gallop. ABDOMEN: Soft and nontender. There is no organomegaly or rigidity. There is no rebound or guarding. There is no CVA tenderness. EXTREMITIES: Had trace edema. There is no lower extremity lymphadenopathy. Distal pulses are present. SKIN: Showed no overt rash. There is no petechia or purpura. Skin temperature was warm. NEUROLOGIC: He is awake, alert and following commands. Cranial nerves are intact. LABORATORY DATA: Hemoglobin 8.1, white count of 4.2, platelets 149. BUN 29, creatinine 1.56. Sodium 143, potassium 4.2, calcium 7.2, albumin of 2.7. IMPRESSION: 1. Acute on chronic kidney disease with a baseline creatinine in the low to middle 1s range, likely related to prerenal factors. The patient's renal function is stable and seems to be at baseline. 2. Dizziness with questionable presyncope. 3. Anemia. 4. Diabetes mellitus. 5. Coronary artery disease. 6. Chronic obstructive pulmonary disease. 7. History of gout. PLAN: 1. Continue IV fluids for now. 2. Continue ongoing supportive care. Replace electrolytes as needed. [facility] [place], [place] REPORT OF CONSULTATION NAME: DEBORAH SANTACRUZ UNIT #: [id number] ROOM: 520 DOCTOR: CORAL HOOVER,RADHA Chaney BIRTHDATE: [birth year] 3. Avoid hypotension and nephrotoxic agents such as contrast if possible. 4. Await further plans per the primary service. Thank you for this consultation. We will follow with you. RADHA MONCADA MD CM:CONSTR:REPORT OF CONSULTATION 1443 11/24/16 0836 interface
--- NOTE | ~2016-11-22 | PR ---
[place], [place] PROGRESS NOTE NAME: [id number] UNIT #: [id number] ROOM: 520 DOCTOR: ARACELIS QUINTERO MD BIRTHDATE: [birth year] DOS: 11/24/2016 NEPHROLOGY PROGRESS NOTE SUBJECTIVE: The patient was seen and evaluated in followup of acute on chronic kidney injury. He is tolerating fluids well. He is without acute complaints at this time. No further syncopal episodes were noted. Blood sugars are under adequate control. OBJECTIVE: VITAL SIGNS: 98.2, 74, 20, 135/70, 94% on room air. GENERAL: Awake, alert and oriented, no acute distress, facial plethora and Pickwickian phenotype. LUNGS: Otherwise clear. No audible rales or wheeze. CARDIOVASCULAR: Rate regular. No audible rub. ABDOMEN: Obese, soft, nontender. No rebound, no guarding. EXTREMITIES: Peripheries with trace edema. LABORATORY DATA AND DIAGNOSTICS: White blood cell count 5.7, hemoglobin 8.1, platelets 148. Sodium 145, potassium 4.5, chloride 111, bicarb 24, BUN 27, creatinine 1.45, glucose 138, calcium 6.9, albumin 2.6, phosphorus 3.3, magnesium 0.7. He was replaced with 4 grams. ASSESSMENT AND PLAN: 1. Acute kidney injury on chronic kidney disease stage 3. Creatinine is near his baseline. IV fluids can be discontinued at this time. 2. Hypomagnesemia has been replaced with 4 grams of IV magnesium. We will continue to follow and replace further as necessary. May need to consider adjustment of this diuretic if it continues, monitor p.o. intake. 3. Anemia is stable. Continue on oral iron. Monitor for any acute blood loss. Hypertension is acceptably controlled. Avoid further NSAIDs and was given one dose of ketorolac on the . Creatinine does seem to be stable though. ARACELIS QUINTERO MD CM:PNTRANS 1614 [id number] ARACELIS QUINTERO MD 11/25/16 0422 interface
--- NOTE | ~2016-11-22 | CON ---
[place], [place] REPORT OF CONSULTATION NAME: DEBORAH SANTACRUZ [facility] #: [id number] UNIT #: [id number] ROOM: 520 DOCTOR: BLADIMIR MOYA MD BIRTHDATE: [birth year] DOS: 11/27/2016 The patient was seen on 11/27/2016. CHIEF COMPLAINT: Chest pain. REASON FOR CONSULTATION: Chronic osteomyelitis of the right foot, right big toe. CONSULTING DOCTOR: Dr. Steve Guzmán HISTORY OF PRESENT ILLNESS: This is a 66-year-old man who is well known to myself from his past visits for similar reasons, now admitted with chest pain again. I saw him actually in fact 2 weeks ago, and he was asked to finish his 6 weeks of antibiotic therapy a week ago. Prior to this, he had been on oral Zyvox twice daily. He had finished 5 weeks. When I saw him on 11/11/2016, we decided to stop his Zyvox and switch him to oral doxycycline for 1 more week to finish a total of 6 weeks. He had been following him with wound care for the same. He still has a slowly healing wound inside the plantar aspect of his right foot without any evidence of infection. PAST MEDICAL HISTORY: Positive for history of coronary artery disease, diabetes mellitus, chronic kidney disease, COPD, diastolic heart failure, depression, GERD, gout, stroke, hypothyroidism, hyperlipidemia, osteomyelitis, temporal arteritis, anxiety, ataxia, BPH. PAST SURGICAL HISTORY: History of rotator cuff surgery, total hip replacement, laparoscopic cholecystectomy, coronary artery stent placement, amputation of left great toe, left fourth toe amputation, and incision and drainage. SOCIAL HISTORY: He still drinks about 6-pack of beer per week. He is a former smoker with a [id number] history. Occasional cocaine. He used no marijuana or other illicit drugs. FAMILY HISTORY: Mother had stomach cancer. Father had coronary artery disease. ALLERGIES: Reviewed. He is allergic to PIPERACILLIN, TAZOBACTAM, AND VANCOMYCIN. He states he is ALLERGIC TO DOXYCYCLINE, but when I asked the patient, he said he is only allergic to PENICILLIN RELATED ANTIBIOTICS. He had tolerated doxycycline well in the past. HOME MEDICATIONS: Reviewed. CURRENT INPATIENT MEDICATIONS: Reviewed. REVIEW OF SYSTEMS: A 14-point review of systems otherwise negative unless, otherwise specified in the HPI. PHYSICAL EXAMINATION: VITAL SIGNS: Showed a temperature of 98.2, heart rate of 70, blood pressure of [place], [place] REPORT OF CONSULTATION NAME: DEBORAH SANTACRUZ UNIT #: [id number] ROOM: 520 DOCTOR: BLADIMIR MOYA MD BIRTHDATE: [birth year] 140/70, respiratory rate of 14, pulse ox of 97 on 2 liters of oxygen through nasal cannula. GENERAL APPEARANCE: Awake, alert, oriented in time, place, and person, in no acute distress. Oral cavity moist. NECK: Neck supple, no JVD, no lymphadenopathy. HEART: Regular rate and rhythm. S1, S2 normal. No murmurs, gallops or rubs. HEENT: Face with eczematous, erythematous rash on his bilateral nasal folds. ABDOMEN: Obese, distended, no hepatosplenomegaly. EXTREMITIES: Right foot with a 7-cm sized wound on the plantar aspect of the foot with a slow healing proximal portion without any purulence or drainage. LABORATORY DATA: Reviewed. WBC of 4.9, hemoglobin of 12.1, platelets were 172. BUN 30, creatinine of 1.49. X-ray of the foot reviewed, possible erosion focally of the medial aspect of the head of the first metatarsal indicative of osteomyelitis. ASSESSMENT AND PLAN: 1. Diabetic foot ulcer with first metatarsal head osteomyelitis, status post 6 weeks of antibiotics. He had 5 weeks of Zyvox followed by one week of oral doxycycline. The wound defect on the plantar aspect of his right foot is feeling in and he continues to follow up with wound care. I do not see any reason to continue the antibiotics at this point. He had an x-ray of the foot showing concerns for osteomyelitis of the first metatarsal head, but he had 6 weeks of treatment so far and the wound is healing well. Therefore, I do not recommend any further antibiotics at this point. Follow up with myself after discharge in about 4 weeks and continue following up with wound care. 2. Lactic acidosis present on admission. Unclear reason, resolved already. 3. Onychomycosis of bilateral toenails. We will recommend topical terbinafine along with oral terbinafine for up to a month and follow up with myself for further recommendations in the clinic. Thank you, Dr. Guzmán, for this consult. I will continue to follow as needed. BLADIMIR MOYA MD CM:CONSTR:REPORT OF CONSULTATION 1629 11/28/16 0541 interface
--- NOTE | ~2016-11-22 | WRIGHTHP ---
[place], [place] PATIENT HISTORY AND PHYSICAL EXAM NAME: DEBORAH SANTACRUZ [facility] #: [id number] UNIT #: [id number] ROOM: 520 DOCTOR: MGEHAN GREGORY MD BIRTHDATE: [birth year] DOS: HISTORY OF PRESENT ILLNESS: He is admitted to the hospital as he became dizzy and passed out at home and fell down at about 11:30 a.m. yesterday at his home and he was completely out for sometime and he fell down on the ground and also sustained some injury on his right hip, but he could get up after that and can move his right hip. He did not have any localized paralyzed o upper or lower limb. He can move all the 4 limbs. He is conscious and alert at present, but he is complaining of some pain in the chest, but no difficulty in breathing. PAST MEDICAL HISTORY: He has history of acute gastroenteritis in the past, history of acute kidney failure with tubular necrosis, anemia of chronic disease, anxiety with depression, BPH, coronary heart disease, has coronary stent placement, chronic diastolic failure, COPD, chronic kidney failure, depression, diabetes mellitus, dizziness, GERD syndrome, gout, history of CVA in the past, hypothyroidism, insulin dependent diabetes mellitus, hyperlipidemia, obesity, and seizure disorder. SURGICAL HISTORY: He has a history of heart stent placement with 9 stents placed, history of rotator cuff injury, history of total right hip replacement, history of laparoscopic cholecystectomy, status-post amputation of the left great toe, status-post amputation of the toe of the left foot i.e. fourth toe, and past history of incision and drainage. MEDICATIONS: The patient is taking following medications at present: Nitroglycerin 0.4 mg, albuterol sulfate 2 puffs q.6 hours p.r.n. for wheezing, Neurontin 300 mg 3 times daily, Vicodin 5/325 one tablet q.6 hours p.r.n., levothyroxine 125 mcg daily, Lipitor 40 mg daily, ferrous sulfate 325 mg daily, sodium bicarbonate 650 mg twice daily, vitamin-D 2000 units daily and Depakote 250 mg daily. FAMILY HISTORY: His mother of cancer when she was in 40s and his father of heart attack, he was 81-year-old. SOCIAL HISTORY: The patient drinks moderately. He has past history of chronic alcoholism. He used to smoke before, but he does not smoke now. He has a past history of cocaine abuse. PHYSICAL EXAMINATION: GENERAL: The patient is conscious, alert and oriented, does not seem to be in any distress. No cyanosis, no diaphoresis. VITAL SIGNS: His blood pressure 124/72, pulse is 66, respirations 20, temperature 97.4. HEENT: Pupils are equal and reacting to light and accommodation. NECK: Neck veins are not distended. Carotid pulsation normal. HEART: Regular. No murmur or thrills. LUNGS: Clear. No crepitus or rhonchi. ABDOMEN: Soft. Liver and spleen not palpable. No area of tenderness, no mass palpable. EXTREMITIES: The patient can move all the 4 limbs without any problem. There [place], [place] PATIENT HISTORY AND PHYSICAL EXAM [facility]: [id number] UNIT #: [id number] ROOM: [facility] DOCTOR: MEGHAN GREGORY MD BIRTHDATE: [birth year] is some tenderness in the right hip region, but the patient can move his hip and he is having amputation of the left big toe and fourth toe. NEUROLOGICAL: No evident localized neurological deficit observed. LABORATORY DATA: His baseline lactic acid is 3.1 which is high. Comprehensive metabolic profile shows glucose 446, BUN 25, creatinine 1.64, GFR 42. Calcium is 7.2, total protein 6.3, albumin is 2.9, having hyperproteinemia, albuminemia. Alkaline phosphatase is 134. Other values are normal. Troponin level is normal. Ketones are negative. CT scan of the head showed no acute intracranial bleed or any other abnormality. X-ray of the cervical spine shows no fracture or dislocation. X-ray of the right hip shows stable postsurgical change in the right hip, no acute fracture or dislocation seen. Repeat troponin level is normal. Repeat lactic acid level is 2.5. DIAGNOSES: Syncopal attack, cause of which is not definite with history of ASHD, status-post cardiac catheterization, status-post stent placement, history of diabetes mellitus insulin-dependent, history of seizure disorder and having hypochromic anemia, chronic renal failure, depression, and anxiety. PLAN OF TREATMENT: As dictated by Dr. Guzmán. He will be observed closely and we will do his cardiac workup, EKG and we will also watch him for any evidence of myocardial infarction or any evidence of stroke. MEGHAN GREGORY MD CM:HISPHYS:PATIENT HISTORY AND PHYSICAL EXAMINATION 1152 [id number] MEGHAN GREGORY MD 01/01/17 1022 interface
--- NOTE | ~2016-11-22 | CON ---
[place], [place] REPORT OF CONSULTATION NAME: DEBORAH SANTACRUZ [facility] #: [id number] UNIT #: [id number] ROOM: 520 DOCTOR: NELSY RodriguezLAURA BIRTHDATE: [birth year] DOS: 11/24/2016 WOUND CARE CONSULTATION HISTORY OF PRESENT ILLNESS: This is a 66-year-old male known to me from the Wound Clinic for a diabetic foot ulcer of the right foot. He has type 2 diabetes and had a diabetic foot infection with osteomyelitis present in September. He underwent OR debridement late in August and has been on oral antibiotics. Initially, was on linezolid and then this was recently switched to doxycycline. He has been coming to the Wound Clinic and has had a lot of improvement in the wound; however, there continues to be one area near the metatarsal head that continues to travel quite deep without any signs of granulation within the past several weeks now. He has had problems with recurrent hospitalizations for complaints of chest pains and shortness of breath, difficulty ambulating, so he has been in and out of the hospital quite frequently. In addition, he has a problem with peripheral vascular disease as well and is supposed to be seen by Dr. Nixon for a femoral angiogram this week. The patient was seen on 11/18/2016 in the Wound Clinic. The dressing that was applied was a collagen dressing and that the present dressing was still on when I came to see the patient this morning. The patient was admitted to the hospital for complaints of syncope. Thus, Wound Care has been consulted for his wound. PAST MEDICAL HISTORY: Significant for multiple medical problems and includes a history of gastroenteritis, gsrgp-[id number]-yugojeo renal failure, anemia of chronic disease, anxiety with depression, BPH, coronary artery disease. He is status post stent placement. He has a history of chronic diastolic failure, COPD, diabetes, dizziness, GERD, gout, history of CVA in the past, hypothyroidism, insulin-dependent diabetes, hyperlipidemia, obesity and seizure disorder. He has had a heart stent placed back in March I believe, he has had 9 stents placed total. Rotator cuff injury, total hip replacement, laparoscopic cholecystectomy. He is status post amputation of the left great toe, status post amputation of the toe of the left foot and a recent I and D as stated above. He has had multiple admissions for complaints of recurrent chest pains and shortness of breath very frequently. MEDICATIONS: The current medications that have been ordered are as follows: Cipro eyedrops, iron sulfate 325 daily, vitamin D 2000 units daily, Lasix 20 daily, Depakote 250 daily, NovoLog sliding scale, levothyroxine 125 daily, Ranexa 500 mg q.12, Dulera 200 mcg inhalation every 12, Levemir subcutaneously q.12 hours, Neurontin 300 t.i.d., doxycycline 100 p.o. b.i.d., Coreg 25 p.o. b.i.d., Lipitor 40 at bedtime, albuterol nebs q.i.d., sodium bicarbonate 650 p.o. b.i.d., nitroglycerin sublingual p.r.n. FAMILY HISTORY: His father had coronary artery disease, at the age of 81, his mother of cancer. SOCIAL HISTORY: He drinks moderately. He has a history of chronic alcoholism. He is a nonsmoker presently. Has a history of cocaine abuse. [place], [place] REPORT OF CONSULTATION NAME: DEBORAH SANTACRUZ UNIT #: [id number] ROOM: [facility] DOCTOR: LAURA WHITTINGTON M.D. BIRTHDATE: [birth year] ALLERGIES: TAZOBACTAM, PIPERACILLIN and VANCOMYCIN. REVIEW OF SYSTEMS: The patient is a very poor historian. He states he felt dizzy and weak at home and fell. Apparently, he passed out and sustained an injury on his right hip. He complains of some pain in his foot. He has not changed the dressings since it was placed 6 days ago. He does not have home health to come in and help him anymore and is really unable to do the dressing changes by himself. He has chronic shortness of breath and complains of chronic chest pains. No other specific complaints are noted at this time. PHYSICAL EXAMINATION: VITAL SIGNS: His temperature is 98.2, pulse is 74, respirations 20, blood pressure is 135/70. GENERAL: This is an elderly male who appears older than his stated age. He is pale on examination. Pleasant and cooperative. LUNGS: Clear to auscultation anteriorly. CARDIOVASCULAR: S1, S2 regular rate and rhythm. ABDOMEN: Soft at this time, but he does complain of tenderness upon minimal palpation. WOUND EXAMINATION: The wound dressing was removed today. There was a little bit of an odor; however, after cleansing out the odor was gone. There was drainage coming through the dressing. He had a lot of Kerlix applied to it and an ABD pad. There was some maceration present in the periwound. The wound itself looked pretty good. Measurements are approximately 6.5 x 0.5 x 0.8 at the deepest depth in the metatarsal area. There is still some slight undermining at the 12 o'clock position around 0.8, 0.9 cm. There is really no periwound erythema, that seems to have gone down quite a bit. There is a lot of healing with the distal part of the wound that was definitely improving. There is still that one area near the metatarsal head that has just not healed yet. There is really no surrounding cellulitis that I could see or purulence. The wound was redressed with Maxorb silver dressing to be packed to the wound base, I would continue that or Aquacel Ag. We do not have collagen available on the floors, collagen dressing was used in the Wound Clinic. ASSESSMENT AND PLAN: Chronic nonhealing diabetic foot ulcer with osteomyelitis. He is on p.o. antibiotics. He would meet criteria for hyperbaric oxygen; as adjuvant treatment as he has had the standard wound care as well as antibiotic therapy as well as bone debridement; however, he does need to get this vascular study done, which hopefully will be able to be done soon. He has multiple medical problems that include diabetes, uncontrolled, chronic anemia, chronic obstructive pulmonary disease, congestive heart failure, chronic renal failure, low albumin state that will all contribute to poor wound healing. The patient also has difficulty finding home health to come in to help him. Apparently, the last home health agency said they would not come into the house any longer due to the condition of the home, so he does not have home health anymore. Ideally, I think he would benefit from a custodial placement if he would agree to it. Due to his multiple medical problems, he is not an ideal candidate to go into hyperbaric oxygen therapy, but we will keep this in mind after revascularization if he continues to stall. We may need to work him up by obtaining the echocardiogram and results of recent PFTs. Another consideration is application [place], [place] REPORT OF CONSULTATION NAME: DEBORAH SANTACRUZ UNIT #: [id number] ROOM: 520 DOCTOR: NELSY Rodriguez,LAURA BIRTHDATE: [birth year] of a wound VAC to that area where it is still fairly deep. So, we will consider this at his next wound care appointment. Follow up in the Wound Care Clinic upon discharge. LAURA WHITTINGTON MD CM:CONSTR:REPORT OF CONSULTATION 1536 12/05/16 1328 interface
--- NOTE | ~2016-11-22 | EKG ---
[place], [place] ELECTROCARDIOGRAM REPORT NAME: DEBORAH SANTACRUZ UNIT #: [id number] ROOM: [facility] DOCTOR: PAM ALVARADO MD BIRTHDATE: [birth year] DOS: 11/22/2016 TIME: 1253 hours. Normal sinus rhythm at 76 beats per minute. An old inferior wall OR. Low voltage in limb leads. Probable old anterior wall OR. PAM ALVARADO MD CM:EKGRPT:ELECTROCARDIOGRAM REPORT 1703 1810 PAM ALVARADO MD
--- NOTE | ~2016-11-22 | CON ---
[place], [place] REPORT OF CONSULTATION NAME: DEBORAH SANTACRUZ [facility] #: [id number] UNIT #: [id number] ROOM: 520 DOCTOR: EMILY THACKER MDHISH BIRTHDATE: [birth year] DOS: The patient of Dr. Metz, I am covering for Dr. Metz. HISTORY OF PRESENT ILLNESS: A 66-year-old gentleman who has been admitted multiple times and basically like every other week here. Please refer to the detailed consultation by Dr. Metz done recently. The patient readmitted with significant bilaterally aches and pain and right-sided scalp pain, neck pain, right hip pain. He does have chronic chest pain also, has been admitted multiple times, had been evaluated, does have cardiomyopathy with a history of coronary artery disease, history of previous stent placement. No acute EKG changes suggestion of myocardial injury or infarction. He says that he is passing out recently and does have pain all across the chest and also the neck area. He is a very poor historian. He says it increases with movement. REVIEW OF SYSTEMS: CONSTITUTIONAL: No fever, no chills, as per HPI. HEENT: No visual disturbances, hearing problems. RESPIRATORY: Denies any cough. CARDIOVASCULAR: Positive for as per HPI. Does have history of syncope. No chest pain, body ache, left arm pain. GASTROINTESTINAL: No nausea, no vomiting. GENITOURINARY: No dysuria. MUSCULOSKELETAL: Positive for as per HPI. SKIN: No rashes. PSYCHIATRIC: Intact. HEMATOLOGIC: No symptoms. All other review of systems are noncontributory. MEDICATIONS: Nitroglycerin, gabapentin, levothyroxine, atorvastatin, ferrous sulfate, cholecalciferol. PAST MEDICAL HISTORY: Anxiety, ataxia, cellulitis, chronic chest pain, chronic diastolic heart failure, depression, gastroesophageal reflux disease, diabetes mellitus, hyperglycemia, morbid obesity, seizure disorder, septicemia, temporal arteritis. PAST SURGICAL HISTORY: Had multiple stents by Dr. Metz, rotator cuff surgery, hip surgery, cholecystectomy, status post amputation of the left great toe, amputation of the left foot permanent, status post incision and drainage, also had an arteriogram of the legs. SOCIAL HISTORY: Admits to alcohol use, former smoker, history of alcoholism which is chronic. FAMILY HISTORY: Positive for coronary artery disease. PHYSICAL EXAMINATION: GENERAL: Does not look to be in acute distress. The patient is sleeping. VITAL SIGNS: His blood pressure is 110/70. HEENT: Unremarkable. [place], [place] REPORT OF CONSULTATION NAME: DEBORAH SANTACRUZ UNIT #: [id number] ROOM: [facility] DOCTOR: NAIN THACKER MD BIRTHDATE: [birth year] NECK: Supple, no JVD, no thyromegaly, no lymphadenopathy. LUNGS: Diminished breath sounds. HEART: Sounds are regular. ABDOMEN: Soft, nontender. EXTREMITIES: Intact pulses. NEUROLOGIC: Intact. LABORATORY DATA: Shows hemoglobin 8.1, hematocrit 25.4, BUN and creatinine 29 and 1.5. Urine so far negative. IMPRESSION: The patient admitted with atypical chest discomfort and a near syncopal episode. I do not think there are any cardiac issues which are new at this point. RECOMMENDATIONS: Continue to monitor orthostatic blood pressure. CT scan of the head showed no acute intracranial bleed or territorial stroke, just chronic changes. The patient has hyperglycemia, diabetes mellitus, had a syncopal episode, get an echocardiogram if it is not done in 6 months, also get carotid Dopplers if it is not done, do orthostatic blood pressure. Continue the home medications and we will follow up. NAIN THACKER MD CM:CONSTR:REPORT OF CONSULTATION 0729 01/01/17 1031 interface
--- NOTE | ~2016-11-22 | PR ---
[place], [place] PROGRESS NOTE NAME: DEBORAH SANTACRUZ [facility] #: [id number] UNIT #: [id number] ROOM: 520 DOCTOR: NAIN THACKER MD BIRTHDATE: [birth year] DOS: 11/25/2016 SUBJECTIVE: 24-hour events noted. I am covering for Dr. Metz. The patient has multiple admissions in the past. Cardiac enzymes all have been negative. He has a nonspecific pain, had chest discomfort for which he had an EKG, showed no acute EKG abnormalities. Blood pressure and heart rate appeared to be normal. OBJECTIVE: VITAL SIGNS: The last blood pressure is 130/70. He is in sinus rhythm, heart rate of 76. NECK: Supple, no JVD. LUNGS: Diminished breath sounds. HEART: Sounds are regular. ABDOMEN: Obese. EXTREMITIES: Intact pulses. LABORATORY DATA: Last hemoglobin 8.1 repeat is pending. Electrolytes are all pending. The last creatinine is 1.4. IMPRESSION: The patient with known coronary artery disease, chronic renal insufficiency, chronic pain issues with multiple hospital admissions. I discussed with Dr. Metz who does not think anything needs to be done on him. All the cardiac workup has been done. Ultrasound of the carotid shows less than 50% bilateral carotid stenosis. The patient impression near syncopal episode, anemia, gastroesophageal reflux disease, COPD, morbid obesity, known history of coronary artery disease. RECOMMENDATIONS: Agree with the present care and management. We will get an echocardiogram. I will review the echocardiogram. Continue the other medications and we will follow up. NAIN THACKER MD CM:PNTRANS [id number] NAIN THACKER MD 01/01/17 1026 interface
--- NOTE | ~2016-11-22 | PR ---
[place], [place] PROGRESS NOTE NAME: DEBORAH SANTACRUZ [facility] #: [id number] UNIT #: [id number] ROOM: 520 DOCTOR: NELSY RodriguezLAURA BIRTHDATE: [birth year] DOS: 11/27/2016 WOUND CARE PROGRESS NOTE: The patient reports no significant changes regarding his foot. He has had the dressings changed by staff, and he has allowed them to do it. He reports that his oxygen drops when he was in therapy. His echo was done. It shows normal left ventricular systolic function. There is grade 1 diastolic dysfunction, [id number] aortic regurg, trace pulmonic regurgitation. OBJECTIVE: VITAL SIGNS: Show a temperature of 98.2, pulse is 70, respirations 14, blood pressure is 140/70. The dressing was removed today. The wound was examined. The wound is healed quite a bit actually, essentially now instead of 1 big long wound, it is 2 smaller wounds. The proximal metatarsal head area is still open and fairly deep, but seems to have filled in a bit. I would say the depth is not as deep as it was in and I would classify it as 0.6 to 0.7 instead of deeper. In addition, the actual open area near the metatarsal head, I would say is measuring approximately 1 cm x 0.5 cm, and there is less undermining noted as well. There is no purulence. There is no tenderness. There is no cellulitis. His labs show a white count of 4.9, a hemoglobin of 12, hematocrit of 39, and platelets of 172. Chem-7 shows a potassium of 5.2, BUN of 30, creatinine of 1.49, glucose is 131. He did have an x-ray done, which showed possible erosion of the medial aspect of the head of the first metatarsal area. They did recommend MRI if further evaluation is warranted. However, the patient does not have an open wound of this area. There is no wound, there is no callus, there is nothing in that area to suggest an ulcer and it does not mention anything between the fourth and fifth metatarsals, which is where the wound is. So, this does not correlate to my exam. ASSESSMENT AND PLAN: Chronic ulcer of the right foot secondary to diabetes, osteomyelitis. I was concerned that there was poor wound healing at the metatarsal area and I was considering possibly starting a wound VAC; however, it does look better to me today than just a few days ago, which may be related to the fact that the patient is getting the wound care and dressing changed that is like he should and has probably been staying off of his foot more. Also he does need to have his vascular study done, which once he gets this if there is a stenotic area, hopefully, this can be rectified. This should help his wound as well. We will see what Infectious Disease recommends. In general, I will continue with the same dressings for now and upon discharge. If he does end up going to residential, then we can change his wound care orders to a collagen. Wound care orders have been written for just in case he is being discharged. FOLLOWUP: The patient should follow up next week in the Wound Clinic. [place], [place] PROGRESS NOTE NAME: DEBORAH SANTACRUZ UNIT #: [id number] ROOM: [facility] [place] DOCTOR: LAURA WHITTINGTON M.D. BIRTHDATE: [birth year] LAURA WHITTINGTON MD CM:RICHI [id number] LAURA WHITTINGTON M.D. 11/28/16 0531 interface
[~2016-11-22 12:47] MED LIST changes: +Fioricet 325 MG1 TAB PO
[2016-11-22 13:01] VITALS: BP 155/76
[2016-11-22 13:12] LABS: BASO % 0.4 % (0.0-1.0); EOS # 0.1 10*3/uL (0.0-0.4); EOS % 2.5 % (1.0-4.0); HEMOGLOBIN 9.3 g/dl (14.0-18.0); LYMPH # 1.5 10*3/uL (1.3-4.4); LYMPH % 26.1 % (27.0-41.0); MEAN CELL VOLUME 90.1 fl (80.0-94.0); MEAN CORPUSCULAR HGB 28.9 pg (27.0-31.0); MEAN CORPUSCULAR HGB CONC 32.1 g/dl (33.0-37.0); MEAN PLATELET VOLUME 10.9 fl (9.6-12.3); MONO # 0.4 10*3/uL (0.1-1.0); MONO % 6.9 % (3.0-9.0); NEUT # 3.6 10*3/uL (2.3-7.9); NEUT % 63.6 % (47.0-73.0); PLATELET COUNT AUTOMATED 169 10*3/uL (130-400); RED BLOOD COUNT 3.22 10*6/uL (4.50-5.90); WHITE BLOOD COUNT 5.7 10*3/uL (4.8-10.8)
[2016-11-22 13:27] LABS: ALBUMIN 2.9 gm/dl (3.1-4.5); BILIRUBIN, TOTAL 0.4 mg/dl (0.2-1.0); POTASSIUM 4.9 mmol/L (3.5-5.1); TOTAL PROTEIN 6.3 gm/dL (6.4-8.2)
[2016-11-22 15:00] VITALS: BP 130/66
[2016-11-22 15:08] LABS: LA>2 REFLEX 2 HR DRAW NOW
[2016-11-22 15:35] LABS: LA>2 RFLX FOLLOW UP AT 2 HRS 3.3 mmol/L (0.4-2.0)
[2016-11-22 16:00] VITALS: BP 130/66
[2016-11-22 17:29] LABS: LA>2 REFLEX 4 HR DRAW NOW
[2016-11-22 18:14] LABS: BILIRUBIN NEGATIVE (NEGATIVE); BLOOD NEGATIVE (NEGATIVE); CLARITY SL CLOUDY (CLEAR); COLOR YELLOW (YELLOW); GLUCOSE TRACE (NEGATIVE); KETONE NEGATIVE (NEGATIVE); LEUKO ESTERASE NEGATIVE (NEGATIVE); NITRITE NEGATIVE (NEGATIVE); PROTEIN NEGATIVE (NEGATIVE); UROBILINOGEN 0.2 E.U./dl (0.2-1.0)
[2016-11-22 18:22] LABS: BACTERIA 1+; HYALINE CAST TNTC
[2016-11-22 20:00] VITALS: BP 124/59
[2016-11-23] VITALS: BP 121/70
[2016-11-23 02:28] LABS: LA>2 REFLEX 2 HR DRAW NOW
[2016-11-23 06:06] LABS: BASO % 0.2 % (0.0-1.0); EOS # 0.2 10*3/uL (0.0-0.4); EOS % 4.3 % (1.0-4.0); HEMATOCRIT 25.4 % (42.0-52.0); HEMOGLOBIN 8.1 g/dl (14.0-18.0); LYMPH # 1.3 10*3/uL (1.3-4.4); LYMPH % 31.8 % (27.0-41.0); MEAN CELL VOLUME 90.7 fl (80.0-94.0); MEAN CORPUSCULAR HGB 28.9 pg (27.0-31.0); MEAN CORPUSCULAR HGB CONC 31.9 g/dl (33.0-37.0); MEAN PLATELET VOLUME 10.8 fl (9.6-12.3); MONO # 0.3 10*3/uL (0.1-1.0); MONO % 7.3 % (3.0-9.0); NEUT # 2.4 10*3/uL (2.3-7.9); NEUT % 55.7 % (47.0-73.0); PLATELET COUNT AUTOMATED 149 10*3/uL (130-400); WHITE BLOOD COUNT 4.2 10*3/uL (4.8-10.8)
[2016-11-23 06:44] LABS: ALBUMIN 2.7 gm/dl (3.1-4.5); BILIRUBIN, TOTAL 0.3 mg/dl (0.2-1.0); POTASSIUM 4.2 mmol/L (3.5-5.1); TOTAL PROTEIN 5.4 gm/dL (6.4-8.2)
[2016-11-23 06:46] LABS: THYROID STIM HORMONE (HS) 1.77 uIU/ml (0.358-4.75)
[2016-11-23 08:00] VITALS: BP 124/72
[2016-11-23 12:00] VITALS: BP 126/69
[2016-11-23] MEDS ORDERED: CILOXAN 10 ML10 ML OPH (14:58)
[2016-11-23 16:00] VITALS: BP 117/63
[2016-11-23 20:00] VITALS: BP 120/70
[2016-11-24] VITALS (8 sets, daily range): BP systolic 104–149; BP diastolic 42–82
[2016-11-24 05:50] LABS: CKMB 1.2 ng/ml (0.5-3.6)
[2016-11-24 09:42] LABS: BASO % 0.3 % (0.0-1.0); EOS # 0.2 10*3/uL (0.0-0.4); EOS % 3.1 % (1.0-4.0); HEMATOCRIT 26.1 % (42.0-52.0); HEMOGLOBIN 8.1 g/dl (14.0-18.0); LYMPH # 2.3 10*3/uL (1.3-4.4); LYMPH % 40.4 % (27.0-41.0); MEAN CELL VOLUME 93.5 fl (80.0-94.0); MEAN PLATELET VOLUME 10.5 fl (9.6-12.3); MONO # 0.3 10*3/uL (0.1-1.0); MONO % 5.4 % (3.0-9.0); NEUT # 2.9 10*3/uL (2.3-7.9); NEUT % 50.1 % (47.0-73.0); PLATELET COUNT AUTOMATED 148 10*3/uL (130-400); RED BLOOD COUNT 2.79 10*6/uL (4.50-5.90); RED CELL DISTRI WIDTH 18.6 % (0-14.5); WHITE BLOOD COUNT 5.7 10*3/uL (4.8-10.8)
[2016-11-24 09:58] LABS: ALBUMIN 2.6 gm/dl (3.1-4.5); BILIRUBIN, TOTAL 0.2 mg/dl (0.2-1.0); PHOSPHOROUS 3.3 mg/dL (2.5-4.9); POTASSIUM 4.5 mmol/L (3.5-5.1); TOTAL PROTEIN 5.5 gm/dL (6.4-8.2)
[2016-11-24 10:02] LABS: MAGNESIUM 0.7 mg/dL (1.5-2.1)
[2016-11-25] VITALS (15 sets, daily range): BP systolic 117–175; BP diastolic 51–90
[2016-11-25 08:00] LABS: BASO % 0.2 % (0.0-1.0); EOS # 0.1 10*3/uL (0.0-0.4); EOS % 1.5 % (1.0-4.0); LYMPH # 1.4 10*3/uL (1.3-4.4); LYMPH % 34.8 % (27.0-41.0); MEAN CELL VOLUME 91.7 fl (80.0-94.0); MEAN CORPUSCULAR HGB 29.7 pg (27.0-31.0); MEAN CORPUSCULAR HGB CONC 32.4 g/dl (33.0-37.0); MEAN PLATELET VOLUME 10.9 fl (9.6-12.3); MONO # 0.3 10*3/uL (0.1-1.0); MONO % 8.1 % (3.0-9.0); NEUT # 2.2 10*3/uL (2.3-7.9); NEUT % 54.4 % (47.0-73.0); PLATELET COUNT AUTOMATED 149 10*3/uL (130-400); RED CELL DISTRI WIDTH 17.6 % (0-14.5); WHITE BLOOD COUNT 4.1 10*3/uL (4.8-10.8)
[2016-11-25 08:12] LABS: HEMATOCRIT 32.1 % (42.0-52.0); HEMOGLOBIN 10.4 g/dl (14.0-18.0)
[2016-11-25 08:36] LABS: ALBUMIN 2.8 gm/dl (3.1-4.5); ALKALINE PHOSPHATASE 120 U/L (45-117); BILIRUBIN, TOTAL 0.6 mg/dl (0.2-1.0); BUN 31 mg/dl (7-24); CARBON DIOXIDE 27 mmol/L (21-32); CHLORIDE 109 mmol/L (98-107); EST GLOM FILT AFRICAN AMERICAN > 60 ml/min; GLUCOSE 89 mg/dL (65-99); POTASSIUM 4.8 mmol/L (3.5-5.1); SGOT/AST 19 IU/L (3-35); SGPT/ALT 29 U/L (12-78); SODIUM 142 mmol/L (136-145); TOTAL PROTEIN 5.9 gm/dL (6.4-8.2)
[2016-11-25 11:56] LABS: BASO % 0.2 % (0.0-1.0); EOS # 0.2 10*3/uL (0.0-0.4); EOS % 2.8 % (1.0-4.0); HEMATOCRIT 34.1 % (42.0-52.0); LYMPH # 1.5 10*3/uL (1.3-4.4); LYMPH % 29.1 % (27.0-41.0); MEAN CELL VOLUME 91.7 fl (80.0-94.0); MEAN CORPUSCULAR HGB 29.6 pg (27.0-31.0); MEAN CORPUSCULAR HGB CONC 32.3 g/dl (33.0-37.0); MEAN PLATELET VOLUME 10.9 fl (9.6-12.3); MONO # 0.3 10*3/uL (0.1-1.0); MONO % 6.2 % (3.0-9.0); NEUT # 3.2 10*3/uL (2.3-7.9); NEUT % 60.9 % (47.0-73.0); PLATELET COUNT AUTOMATED 171 10*3/uL (130-400); RED BLOOD COUNT 3.72 10*6/uL (4.50-5.90); WHITE BLOOD COUNT 5.3 10*3/uL (4.8-10.8)
[2016-11-25 12:07] LABS: MAGNESIUM 1.3 mg/dL (1.5-2.1)
[2016-11-26] VITALS: BP 153/66
[2016-11-26 07:25] LABS: BASO % 0.2 % (0.0-1.0); EOS # 0.1 10*3/uL (0.0-0.4); EOS % 2.4 % (1.0-4.0); HEMATOCRIT 35.6 % (42.0-52.0); HEMOGLOBIN 11.5 g/dl (14.0-18.0); LYMPH # 1.9 10*3/uL (1.3-4.4); LYMPH % 35.2 % (27.0-41.0); MEAN CELL VOLUME 92.5 fl (80.0-94.0); MEAN CORPUSCULAR HGB 29.9 pg (27.0-31.0); MEAN CORPUSCULAR HGB CONC 32.3 g/dl (33.0-37.0); MEAN PLATELET VOLUME 10.7 fl (9.6-12.3); MONO # 0.6 10*3/uL (0.1-1.0); MONO % 10.4 % (3.0-9.0); NEUT # 2.8 10*3/uL (2.3-7.9); NEUT % 51.1 % (47.0-73.0); PLATELET COUNT AUTOMATED 162 10*3/uL (130-400); RED BLOOD COUNT 3.85 10*6/uL (4.50-5.90); RED CELL DISTRI WIDTH 18.2 % (0-14.5); WHITE BLOOD COUNT 5.5 10*3/uL (4.8-10.8)
[2016-11-26 07:38] LABS: BUN 26 mg/dl (7-24); CARBON DIOXIDE 29 mmol/L (21-32); CHLORIDE 105 mmol/L (98-107); EST GLOM FILT AFRICAN AMERICAN > 60 ml/min; GLUCOSE 152 mg/dL (65-99); MAGNESIUM 1.3 mg/dL (1.5-2.1); POTASSIUM 4.7 mmol/L (3.5-5.1); SODIUM 141 mmol/L (136-145)
[2016-11-26 08:00] VITALS: BP 142/70
[2016-11-26 12:00] VITALS: BP 150/78
[2016-11-26 16:00] VITALS: BP 144/78
[2016-11-26 20:00] VITALS: BP 129/61
[2016-11-27] VITALS: BP 140/56
[2016-11-27 08:00] VITALS: BP 146/68
[2016-11-27 08:19] LABS: BASO % 0.2 % (0.0-1.0); EOS # 0.2 10*3/uL (0.0-0.4); EOS % 4.1 % (1.0-4.0); HEMOGLOBIN 12.1 g/dl (14.0-18.0); LYMPH # 1.7 10*3/uL (1.3-4.4); LYMPH % 34.4 % (27.0-41.0); MEAN CELL VOLUME 93.8 fl (80.0-94.0); MEAN CORPUSCULAR HGB 29.1 pg (27.0-31.0); MEAN PLATELET VOLUME 11.2 fl (9.6-12.3); MONO # 0.7 10*3/uL (0.1-1.0); MONO % 13.6 % (3.0-9.0); NEUT # 2.3 10*3/uL (2.3-7.9); NEUT % 46.9 % (47.0-73.0); PLATELET COUNT AUTOMATED 172 10*3/uL (130-400); RED BLOOD COUNT 4.16 10*6/uL (4.50-5.90); RED CELL DISTRI WIDTH 17.9 % (0-14.5); WHITE BLOOD COUNT 4.9 10*3/uL (4.8-10.8)
[2016-11-27 08:42] LABS: POTASSIUM 5.2 mmol/L (3.5-5.1)
[2016-11-27 12:00] VITALS: BP 140/70
[2016-11-27 16:00] VITALS: BP 156/70
[2016-11-27 20:00] VITALS: BP 147/60
[2016-11-28] VITALS: BP 119/65
[2016-11-28 08:00] VITALS: BP 126/76
[2016-11-29] MEDS ORDERED: CYMBALTA60 MG PO (15:51)
[2016-11-29] MEDS ORDERED: LANTUS100 U/ML SC (15:52)
[2016-11-29] MEDS ORDERED: PRILOSEC20 M1 PO (15:53)
[2016-11-29] MEDS ORDERED: MAGNESIUM400 MG PO (15:54)
[2016-11-29] MEDS ORDERED: ALLOPURINOL100 MG PO (15:55)
[2016-11-29] MEDS ORDERED: TRIAMCINOLONE AC0.1% T (15:55)
[2016-11-29] MEDS ORDERED: COREG6.25 MG PO (15:56)
[2016-12-11] MEDS ORDERED: PREDNISONE20 M1 PO (14:58)
[2017-01-01] MEDS ORDERED: PRINIVIL20 M1 PO (10:22)
[2017-01-01] MEDS ORDERED: METOPROLOL SUCC50 M1 PO (10:23)
[2017-01-01] MEDS ORDERED: PANTOPRAZOLE SO40 MG PO (10:24)
[2017-01-01] MEDS ORDERED: K-TAB10 MEQ PO (10:25)
[2017-01-01] MEDS ORDERED: RANEXA500 M1 PO (10:26)
[2017-01-01] MEDS ORDERED: ANTACID II 1601 CTB PO (10:27)
[2017-01-01] MEDS ORDERED: FINASTERIDE5 M1 PO (10:28)
[2017-01-01] MEDS ORDERED: AMLODIPINE BES1 TAB PO (10:28)
[2017-01-01] MEDS ORDERED: TAMSULOSIN HCL0.4 MG PO (10:29)
[2017-01-01] MEDS ORDERED: INVANZ1 GM IV (10:30)
[2017-01-01] MEDS ORDERED: LEVEMIR10 ML SC (10:30)
[2017-01-07] MEDS ORDERED: AMLODIPINE BESYL5 MG PO (09:40)
== END 2016-11-28 08:23 | disposition other institution (70) | DRG 682 ==
LOC: ED 12:47 → EDHOLD 14:59 → 5E 14:59
PROVIDERS: Hospitalist; Internal Medicine; Internal Medicine Nephrology; Nurse Practitioner Family
PROC: 30233N1 Transfusion of Nonautologous Red Blood Cells into Peripheral Vein, Percutaneous Approach (ICD-10-PCS; principal; 2016-11-22)
DX: N17.9 Acute kidney failure, unspecified (principal); E43 Unspecified severe protein-calorie malnutrition; E11.621 Type 2 diabetes mellitus with foot ulcer; I50.32 Chronic diastolic (congestive) heart failure; E83.42 Hypomagnesemia; M86.8X7 Other osteomyelitis, ankle and foot; I13.0 Hypertensive heart and chronic kidney disease with heart failure and stage 1 through stage 4 chronic kidney disease, or unspecified chronic kidney disease; R55 Syncope and collapse; E11.69 Type 2 diabetes mellitus with other specified complication; G40.909 Epilepsy, unspecified, not intractable, without status epilepticus; D50.9 Iron deficiency anemia, unspecified; F32.9 Major depressive disorder, single episode, unspecified; F41.9 Anxiety disorder, unspecified; G89.29 Other chronic pain; R07.9 Chest pain, unspecified; D63.8 Anemia in other chronic diseases classified elsewhere; M1A.9XX0 Chronic gout, unspecified, without tophus (tophi); J43.9 Emphysema, unspecified; E66.9 Obesity, unspecified; E78.2 Mixed hyperlipidemia; D64.9 Anemia, unspecified; E03.9 Hypothyroidism, unspecified; B35.1 Tinea unguium; K21.9 Gastro-esophageal reflux disease without esophagitis; E11.65 Type 2 diabetes mellitus with hyperglycemia; E66.01 Morbid (severe) obesity due to excess calories; N18.3 Chronic kidney disease, stage 3 (moderate); I65.23 Occlusion and stenosis of bilateral carotid arteries; Z86.73 Personal history of transient ischemic attack (TIA), and cerebral infarction without residual deficits; Z95.5 Presence of coronary angioplasty implant and graft; Z90.49 Acquired absence of other specified parts of digestive tract; Z98.890 Other specified postprocedural states; Z79.4 Long term (current) use of insulin; Z89.432 Acquired absence of left foot; Z87.891 Personal history of nicotine dependence; Z80.0 Family history of malignant neoplasm of digestive organs; Z82.49 Family history of ischemic heart disease and other diseases of the circulatory system; Z88.1 Allergy status to other antibiotic agents; Z79.899 Other long term (current) drug therapy; Z79.2 Long term (current) use of antibiotics; Z68.31 Body mass index [BMI] 31.0-31.9, adult; I25.119 Atherosclerotic heart disease of native coronary artery with unspecified angina pectoris

== ENCOUNTER 2016-11-29 15:04 | Inpatient (IN) | payer MEDICARE, MEDICAID ==
[~2016-11-29] VITALS: Ht 182.9 cm; Wt 105.5 kg
--- NOTE | ~2016-11-29 | PR ---
[place], [place] PROGRESS NOTE NAME: DEBORAH SANTACRUZ [facility] #: [id number] UNIT #: [id number] ROOM: 410 DOCTOR: NELSY RodriguezLAURA BIRTHDATE: [birth year] DOS: 12/01/2016 WOUND CARE PROGRESS NOTE SUBJECTIVE: The patient was seen last for his right foot wound. He has a chronic diabetic foot ulcer of the right foot with bone exposed and osteomyelitis. Currently has finished his oral antibiotics. We have had trouble acquiring home health to come in and help him with his dressings; however, we have not been able to find anybody to do this. In addition, it was also felt that the patient would benefit from a retirement facility; however, was on hold as the patient was transferred to [place] for looks like a cardiac catheterization, which he underwent. He underwent a cardiac catheterization on that looks like the 11/29/2016 and came back to the Emergency Department yesterday for wound check as he does not have anybody to help him with his dressings. Apparently, his calf, the patient reports was good; however, he developed chest pain and had some swelling of his eyes and developed hives on his back and has had while he was in the Emergency Department; therefore, he was admitted for this. He said his dressing came off at some point and it was just left open according to the patient; however, he is very vague about this and when I walked into the room he did have a dressing on in place. He currently offers no specific complaints regarding the wound. He does state occasionally there is some bloody drainage noted. He says overall he is feeling better today. His vitals are stable. Temperature is 97.6, pulse of 76, respirations 20, blood pressure is 142/78. The dressing was removed. The wound was examined. He had a Maxorb silver dressing on it and there is still quite a bit of depths to the wound on this visit, it seems a little bit deeper than it did on , that is not quite clear to me why if perhaps he had been walking on it more or had not had the dressing changed in that manner that was prescribed may also be a possibility; however, still it is a deep wound that I can still feel bone and there is still a minimal amount of undermining of approximately 0.5 cm at the 11-12 o'clock position. There is really no purulence or tenderness or any signs of cellulitis. His white count today was 6.9, his hemoglobin 11.9, platelets are 152. His glucose was elevated at 483. ASSESSMENT AND PLAN: Chronic diabetic foot ulcer. The wound is stable; however, we are having trouble granulating in what this one particular area near the metatarsal head, which still goes to the bone and is fairly deep and there are no signs of infection. I will go ahead and write for the wound VAC to be placed today. We will use the white foam for now and he can have this changed in the wound clinic at least 3 times a week, so these orders were written and the patient does have vascular disease and he has been trying to get Dr. Nixon, but this has been on hold due to his multiple frequent admissions and this definitely needs to be done and so his vascular intervention has been on hold for some time now. Thank you for this consult. We will follow along with you and the patient will need to be seen in the wound clinic this week. [place], [place] PROGRESS NOTE NAME: DEBORAH SANTACRUZ UNIT #: [id number] ROOM: 410 DOCTOR: LAURA WHITTINGTON M.D. BIRTHDATE: [birth year] LAURA WHITTINGTON MD CM:RICHI [id number] LAURA WHITTINGTON M.D. 12/05/16 1329 interface
--- NOTE | ~2016-11-29 | EKG ---
[place], [place] ELECTROCARDIOGRAM REPORT NAME: DEBORAH SANTACRUZ UNIT #: [id number] ROOM: 410 DOCTOR: PAM ALVARADO MD BIRTHDATE: [birth year] DOS: 11/29/2016 TIME: 1531 hours. Normal sinus rhythm at 87 beats per minute. Old inferior wall myocardial infarction. Probable old anterior wall myocardial infarction as well. An abnormal ECG. No previous tracing is available for comparison. PAM ALVARADO MD CM:EKGRPT:ELECTROCARDIOGRAM REPORT 56 36 PAM ALVARADO MD
--- NOTE | ~2016-11-29 | WRIGHTHP ---
[place], [place] PATIENT HISTORY AND PHYSICAL EXAM NAME: DEBORAH SANTACRUZ [facility] #: [id number] UNIT #: [id number] ROOM: 410 DOCTOR: MEGHAN GREGORY MD BIRTHDATE: [birth year] DOS: 11/29/2016 HISTORY OF PRESENT ILLNESS: A 66-year-old male who was admitted to hospital as an emergency admission with chest pain and some difficulty breathing. The patient was only recently discharged from the hospital 2 days ago when he was admitted to hospital with hyperglycemia and syncopal attack and malnutrition. The patient has history of syncope in the past, history of anemia of chronic disease, GERD syndrome, osteomyelitis, gout, COPD with emphysema, obesity, anxiety attack, coronary artery disease, seizure disorder, chronic diastolic heart failure, chronic kidney disease, hyperlipidemia, depression, hypothyroidism and severe protein malnutrition and nonhealing wound of the foot. At present, the patient is lying in the bed, very comfortable, conscious, alert and oriented. He denies having any chest pain at present The patient had a chest x-ray done which showed normal lung volume. His urine for drug screen was positive for barbiturate and benzodiazepine which patient is taking, otherwise was negative and urine examination was normal, and LDH, CK, CK-MB, and troponin levels were normal. Urine culture and sensitivity did not grow any bacteria. A repeat LDH, CK, CK-MB, troponin level is normal. PHYSICAL EXAMINATION: VITAL SIGNS: The patient's blood pressure is 140/70, pulse 80, respirations 18, temperature 98. CHEST: Clear, having increased expiration. No crepitus. HEART: Regular. ABDOMEN: Soft. NEUROLOGIC: No localized neurological deficit observed. ASSESSMENT AND PLAN: The patient had chest pain which was noncardiac with all his other medical problems of hypertension, diabetes mellitus, chronic obstructive pulmonary disease, emphysema. Will be observed. Watch closely and Dr. Guzmán has already given his order for his management. MEGHAN GREGORY MD CM:HISPHYS:PATIENT HISTORY AND PHYSICAL EXAMINATION [id number] MEGHAN GREGORY MD 01/02/17 7795 interface
[~2016-11-29 15:04] MED LIST changes: +CILOXAN 10 ML10 ML OPH
[2016-11-29 15:22] VITALS: BP 135/82
[2016-11-29] MEDS ORDERED: CYMBALTA60 MG PO (15:51)
[2016-11-29] MEDS ORDERED: LANTUS100 U/ML SC (15:52)
[2016-11-29] MEDS ORDERED: PRILOSEC20 M1 PO (15:53)
[2016-11-29] MEDS ORDERED: MAGNESIUM400 MG PO (15:54)
[2016-11-29] MEDS ORDERED: TRIAMCINOLONE AC0.1% T (15:55)
[2016-11-29] MEDS ORDERED: ALLOPURINOL100 MG PO (15:55)
[2016-11-29] MEDS ORDERED: COREG6.25 MG PO (15:56)
[2016-11-29 16:08] LABS: BASO % 0.3 % (0.0-1.0); EOS # 0.2 10*3/uL (0.0-0.4); EOS % 3.3 % (1.0-4.0); HEMATOCRIT 37.1 % (42.0-52.0); HEMOGLOBIN 11.9 g/dl (14.0-18.0); LYMPH # 2.2 10*3/uL (1.3-4.4); LYMPH % 32.2 % (27.0-41.0); MEAN CELL VOLUME 93.7 fl (80.0-94.0); MEAN CORPUSCULAR HGB 30.1 pg (27.0-31.0); MEAN CORPUSCULAR HGB CONC 32.1 g/dl (33.0-37.0); MEAN PLATELET VOLUME 11.4 fl (9.6-12.3); MONO # 0.7 10*3/uL (0.1-1.0); MONO % 10.5 % (3.0-9.0); NEUT # 3.7 10*3/uL (2.3-7.9); NEUT % 53.1 % (47.0-73.0); PLATELET COUNT AUTOMATED 152 10*3/uL (130-400); RED BLOOD COUNT 3.96 10*6/uL (4.50-5.90); RED CELL DISTRI WIDTH 17.3 % (0-14.5); WHITE BLOOD COUNT 6.9 10*3/uL (4.8-10.8)
[2016-11-29 16:21] LABS: INTERNATIONAL NORM RATIO 1.2 (2.0-3.5); PROTHROMBIN TIME 12.6 SECONDS (9.0-12.4)
[2016-11-29 16:26] LABS: ALBUMIN 3.1 gm/dl (3.1-4.5); ALKALINE PHOSPHATASE 122 U/L (45-117); BILIRUBIN, TOTAL 0.4 mg/dl (0.2-1.0); BUN 35 mg/dl (7-24); CARBON DIOXIDE 24 mmol/L (21-32); CHLORIDE 107 mmol/L (98-107); CKMB 0.5 ng/ml (0.5-3.6); CPK 29 U/L (39-308); EST GLOM FILT AFRICAN AMERICAN 48 ml/min; GLUCOSE 185 mg/dL (65-99); LDH 196 U/L (87-241); MAGNESIUM 1.2 mg/dL (1.5-2.1); POTASSIUM 5.3 mmol/L (3.5-5.1); SGOT/AST 30 IU/L (3-35); SGPT/ALT 38 U/L (12-78); SODIUM 143 mmol/L (136-145); TOTAL PROTEIN 6.9 gm/dL (6.4-8.2)
[2016-11-29 16:27] LABS: TROPONIN I < 0.015 ng/ml (<0.5)
[2016-11-29 18:33] VITALS: BP 138/66
[2016-11-29 20:19] VITALS: BP 116/68
[2016-11-29 20:30] VITALS: BP 163/86
[2016-11-29 20:43] LABS: BILIRUBIN NEGATIVE (NEGATIVE); BLOOD NEGATIVE (NEGATIVE); CLARITY CLEAR (CLEAR); COLOR YELLOW (YELLOW); GLUCOSE NEGATIVE (NEGATIVE); KETONE NEGATIVE (NEGATIVE); LEUKO ESTERASE NEGATIVE (NEGATIVE); NITRITE NEGATIVE (NEGATIVE); PROTEIN NEGATIVE (NEGATIVE); UROBILINOGEN 0.2 E.U./dl (0.2-1.0)
[2016-11-29 20:52] LABS: URINE AMPHETAMINES < 1000 (1000ng/ml); URINE BARBITURATES > 200 (200ng/ml); URINE COCAINE < 300 (300ng/ml)
[2016-11-29 20:58] LABS: BACTERIA TRACE; URINE REFLEX COMMENT NO (NO); WBC 0-2 wbc/hpf (0-5)
[2016-11-29 22:00] VITALS: BP 163/86
[2016-11-30] VITALS: BP 141/52
[2016-11-30 01:49] LABS: CKMB 0.6 ng/ml (0.5-3.6); CPK 40 U/L (39-308); LDH 195 U/L (87-241); TROPONIN I < 0.015 ng/ml (<0.5)
[2016-11-30 07:59] LABS: CKMB 0.8 ng/ml (0.5-3.6); LDH 140 U/L (87-241)
[2016-11-30 08:00] VITALS: BP 139/74
[2016-11-30 08:03] LABS: CPK 29 U/L (39-308); TROPONIN I < 0.015 ng/ml (<0.5)
[2016-11-30 12:00] VITALS: BP 143/70
[2016-11-30 16:00] VITALS: BP 145/73
[2016-11-30 20:00] VITALS: BP 150/74
[2016-12-01] VITALS: BP 153/88
[2016-12-01 08:00] VITALS: BP 142/78
[2016-12-01 12:00] VITALS: BP 132/54; BP 146/82
[2016-12-11] MEDS ORDERED: PREDNISONE20 M1 PO (14:58)
[2017-01-01] MEDS ORDERED: PRINIVIL20 M1 PO (10:22)
[2017-01-01] MEDS ORDERED: METOPROLOL SUCC50 M1 PO (10:23)
[2017-01-01] MEDS ORDERED: PANTOPRAZOLE SO40 MG PO (10:24)
[2017-01-01] MEDS ORDERED: K-TAB10 MEQ PO (10:25)
[2017-01-01] MEDS ORDERED: RANEXA500 M1 PO (10:26)
[2017-01-01] MEDS ORDERED: ANTACID II 1601 CTB PO (10:27)
[2017-01-01] MEDS ORDERED: FINASTERIDE5 M1 PO (10:28)
[2017-01-01] MEDS ORDERED: AMLODIPINE BES1 TAB PO (10:28)
[2017-01-01] MEDS ORDERED: TAMSULOSIN HCL0.4 MG PO (10:29)
[2017-01-01] MEDS ORDERED: INVANZ1 GM IV (10:30)
[2017-01-01] MEDS ORDERED: LEVEMIR10 ML SC (10:30)
[2017-01-07] MEDS ORDERED: AMLODIPINE BESYL5 MG PO (09:40)
== END 2016-12-01 15:14 | disposition home or self-care (01) | DRG 880 ==
LOC: ED 15:04 → EDHOLD 18:39 → 4E 18:39
PROVIDERS: Internal Medicine; Nurse Practitioner Family
DX: F41.9 Anxiety disorder, unspecified (principal); E46 Unspecified protein-calorie malnutrition; M86.671 Other chronic osteomyelitis, right ankle and foot; E66.01 Morbid (severe) obesity due to excess calories; E11.22 Type 2 diabetes mellitus with diabetic chronic kidney disease; I50.32 Chronic diastolic (congestive) heart failure; I13.0 Hypertensive heart and chronic kidney disease with heart failure and stage 1 through stage 4 chronic kidney disease, or unspecified chronic kidney disease; I25.2 Old myocardial infarction; K21.9 Gastro-esophageal reflux disease without esophagitis; M1A.9XX0 Chronic gout, unspecified, without tophus (tophi); J43.9 Emphysema, unspecified; I25.10 Atherosclerotic heart disease of native coronary artery without angina pectoris; N18.3 Chronic kidney disease, stage 3 (moderate); E78.2 Mixed hyperlipidemia; E11.69 Type 2 diabetes mellitus with other specified complication; F32.9 Major depressive disorder, single episode, unspecified; N40.0 Benign prostatic hyperplasia without lower urinary tract symptoms; E03.9 Hypothyroidism, unspecified; G40.909 Epilepsy, unspecified, not intractable, without status epilepticus; E11.621 Type 2 diabetes mellitus with foot ulcer; Z96.641 Presence of right artificial hip joint; Z98.61 Coronary angioplasty status; Z90.49 Acquired absence of other specified parts of digestive tract; Z80.0 Family history of malignant neoplasm of digestive organs; Z82.49 Family history of ischemic heart disease and other diseases of the circulatory system; Z86.73 Personal history of transient ischemic attack (TIA), and cerebral infarction without residual deficits; Z83.3 Family history of diabetes mellitus; Z88.1 Allergy status to other antibiotic agents; Z79.899 Other long term (current) drug therapy; Z79.4 Long term (current) use of insulin; Z68.31 Body mass index [BMI] 31.0-31.9, adult

== ENCOUNTER → 2016-12-03 | Outpatient (CLI) | payer MEDICARE, MEDICAID ==
[~2016-12-03] MED LIST changes: +AMLODIPINE BES1 TAB PO; +AMLODIPINE BESYL5 MG PO; +ANTACID II 1601 CTB PO; +COREG6.25 MG PO; +COSOPT 2%-0.5%10 ML OPH; +FINASTERIDE5 M1 PO; +INVANZ1 GM IV; +K-TAB10 MEQ PO; +LATANOPROST 2.2.5 ML OP; +LEVEMIR10 ML SC; +MAGNESIUM400 MG PO; +TAMSULOSIN HCL0.4 MG PO
--- NOTE | ~2016-12-03 | PR ---
[place], [place] PROGRESS NOTE NAME: DEBORAH SANTACRUZ [facility] #: [id number] UNIT #: [id number] ROOM: DOCTOR: NELSY RodriguezLAURA BIRTHDATE: [birth year] DOS: 12/03/2016 WOUND CARE PROGRESS NOTE CHIEF COMPLAINT: Followup diabetic ulcer of the right foot. HISTORY OF PRESENT ILLNESS: The elements: The location of the wound is the plantar aspect of the right foot in fourth and fifth metatarsal heads. There was associated osteomyelitis. The patient has been on oral antibiotics, which have been discontinued by Infectious Disease. He has probable peripheral vascular disease and is still awaiting vascular workup. Comorbid conditions are diabetes, poorly controlled, chronic debility, difficulty ambulating, chronic renal failure, multiple hospital admissions, multiple Emergency Room visits, recent cardiac catheterization, which according to the patient was good. The patient has been seen on multiple occasions in the hospital when he was admitted for other conditions other than the foot ulcer. I have been examining the wound frequently. It is continuing to heal quite nicely; however, there is one area near the metatarsal head that still remains deep with poor granulation tissue. He has no fevers or chills, offers no specific complaints. Home health will not come in to provide any wound care for him. Thus, he has been going to the Emergency Room for occasional dressing changes. He had an appointment with Dr. Nixon, but due to his recent hospitalization, this had to be canceled and he was to reschedule. The patient did tell me that he had a followup appointment with Dr. Nixon this week; however, today he says he does not have a scheduled followup and he thought that I would be setting up his appointment, though there is some confusion regarding this. PHYSICAL EXAMINATION: VITAL SIGNS: Stable. Temperature is 97.5, pulse of 80, respirations 16, blood pressure is 120/80. WOUND EXAMINATION: Now, 2 smaller wounds measuring 2 x 0.5 x 1 cm in depth with 0.5 cm of undermining at the 11-12 o'clock position. The distal portion of the wound is very small at 0.7 x 0.2 x 0.3 and has definitely improved quite a bit. There is some maceration noted around the wound. There is no purulence or cellulitis noted. Debridement was done today. The tissue removed was just nonviable tissue only, fibrin, slough was removed. Instruments used were forceps and scissors. There was a moderate amount of bleeding that was controlled with pressure. ASSESSMENT AND PLAN: Chronic diabetic foot ulcer with history of osteomyelitis, recent x-ray did not show any bony abnormality within the area of the wound bed. The problem is that we still have poorly healing wound in one particular area. Ideally, I think he would benefit from a wound VAC, but after further discussion with the staff, it was felt that he may have issues with balance. He does have a history of falls and this may not be the best solution for him, so we will hold off on wound VAC at this time. If we can get approval for very small portable lightweight wound VAC that is not cumbersome that will be bridged to the top of this instead of the bottom, that may be something we can consider in the future if we continue to have poor wound healing. We will try to get a followup appointment with Dr. Nixon. He was told about the risks of possible [place], [place] PROGRESS NOTE [id number] UNIT #: [id number] ROOM: DOCTOR: LAURA WHITTINGTON M.D. BIRTHDATE: [birth year] renal worsening with angio and it was told by Nephrology to hold off on his Lasix on the day of his angiogram. So, we will see if we can get this scheduled for him. We have used Hydrofera on one occasion, but did not give it a good adequate amount of time to see if there would be any benefit from it, so I would like to go back to this and see if we can get some improvement in the granulation. We used a lot of Aquacel silver and Maxorb silver and I do not see any changes for the past couple of weeks as far as any continued improvement. I think we have sort of stalled out on these dressings. The patient will follow up this week for a dressing change and then wound care visit next week. Follow up in 1 week. LAURA WHITTINGTON MD CM:PNTRANS 19 [phone] LAURA WHITTINGTON M.D. 12/03/16 2019 interface
== END ==
LOC: WOUNDCARE 03:49
DX: E11.621 Type 2 diabetes mellitus with foot ulcer (principal); L97.512 Non-pressure chronic ulcer of other part of right foot with fat layer exposed; E11.69 Type 2 diabetes mellitus with other specified complication; M86.071 Acute hematogenous osteomyelitis, right ankle and foot; B99.9 Unspecified infectious disease

== ENCOUNTER → 2016-12-05 | Outpatient (CLI) | payer MEDICARE, MEDICAID | LOC: WOUNDCARE 02:21 | DX: E11.621 Type 2 diabetes mellitus with foot ulcer (principal); L97.512 Non-pressure chronic ulcer of other part of right foot with fat layer exposed; E11.69 Type 2 diabetes mellitus with other specified complication; M86.071 Acute hematogenous osteomyelitis, right ankle and foot ==

== ENCOUNTER 2017-01-21 09:46 | Inpatient (IN) | payer MEDICARE ==
[~2017-01-21] VITALS: Ht 177.8 cm; Wt 106.8 kg
--- NOTE | ~2017-01-21 | CON ---
[place], [place] REPORT OF CONSULTATION NAME: DEBORAH SANTACRUZ [facility] #: [id number] UNIT #: [id number] ROOM: 428 DOCTOR: NELSY RodriguezLAURA BIRTHDATE: [birth year] DOS: 01/21/2017 WOUND CARE CONSULTATION HISTORY OF PRESENT ILLNESS: This is a 66-year-old male well known to the wound clinic as he has been a patient there for the past several months now. He originally had a diabetic foot ulcer that was I and D'd and debrided back in September and he had a pretty large wound at the bottom of his right foot near the fourth metatarsal head. He does have poorly controlled diabetes and neuropathy as well as peripheral vascular disease. Most of the wound had healed; however, he continued to have an open wound that probed to bone, right at the fourth metatarsal head. The wound failed to heal and despite wound care, IV antibiotic therapy. X-ray showed persistent osteomyelitis of the fourth metatarsal head. He was also felt to have some peripheral vascular disease and needed further workup. Due to this fact, the patient was referred to [facility] for vascular workup as well as surgical intervention for the osteomyelitis that was still present. The patient underwent vascular assessment and according to Vascular there was adequate flow to heal this wound so no intervention was needed of the right leg. He did eventually undergo further bone debridement by Podiatry of the fourth metatarsal head and this was done by Dr. Cruz. His hospital course at [place] was quite complicated as he had problems with GI bleeding as well as complaints of chest pain. The patient underwent a fairly extensive workup that it did include a cardiac catheterization. The bone culture grew Staph aureus, Proteus and Enterobacter. He was placed on Invanz outpatient therapy. Initially, I was under the impression that it was an intravenous antibiotic; however, it was actually intramuscular. He has had several doses of the antibiotic approximately 3 weeks' worth. The wound continued to heal and do quite well until approximately 10 days ago where it was noted that there was further purulent material noted coming from the wound once again. His wound care orders were changed to Arglaes silver dressing and he was placed on ciprofloxacin PO for the purulent material; culture grew yeast. Repeat consultation was requested with Infectious Disease and Cipro was added for approximately 2 weeks. The patient has had about 10 days' worth of oral Cipro. The wound continued to improve nicely after that. The patient was completing his antibiotic course outpatient here at the hospital today when he experienced a chest burning and shortness of breath, so he was admitted through the Emergency Room Department for these above symptoms. PAST MEDICAL HISTORY: Significant for multiple problems and include acute gastroenteritis, history of kidney failure with tubular necrosis, alkaline phosphatase elevation allergic reaction caused by medication, anemia of chronic disease, angina, anxiety, ataxia, BPH, coronary artery disease, cellulitis, chest pain, chronic diastolic heart failure, chronic kidney disease, COPD, depression, dermatitis, diabetes, dizziness, gastric ulceration, GERD, gout, history of CVA with residual deficits, hypomagnesemia, hypothyroidism. He is insulin-dependent, history of lactic acidosis, malaise and fatigue, malnutrition, mixed hyperlipidemia, morbid obesity, mucocutaneous candidiasis, non-ST elevation [place], history of osteomyelitis of the foot. He has had previous amputations of the left great toe, the fourth toe of the right foot. He has had syncope, multiple admissions for shortness of breath, tachycardia, temporal [place], [place] REPORT OF CONSULTATION NAME: DEBORAH SANTACRUZ UNIT #: [id number] ROOM: [facility] DOCTOR: LAURA WHITTINGTON M.D. BIRTHDATE: [birth year] arteritis, unable to ambulate, history of cardiac stents 9 stents placed, rotator cuff surgery, hip replacement, laparoscopic cholecystectomy, status post appendectomy, history of incision and drainage. SOCIAL HISTORY: The patient smokes a 6-pack of beer a week. He is a former smoker, history of cocaine abuse, denies IV drug use. FAMILY HISTORY: Positive for cancer in the mother, father cardiac disease. ALLERGIES: PIPERACILLIN, TAZOBACTAM, VANCOMYCIN. MEDICATIONS: Flomax 0.4 daily, Micro-K 10 mEq daily, Toprol-XL 50 daily, lisinopril 20 daily, Proscar 5 mg daily, amlodipine 5 mg daily, Protonix 40 daily, Requip 0.25 daily, Ranexa 500 q. 12, Levemir q. 12 subQ, Solu-Medrol 80 mg q. 12 hours, DuoNebs q. 4. REVIEW OF SYSTEMS: The patient currently offers no specific complaints; however, this morning when he was admitted, he complained of dizziness, lightheadedness, near syncope and some shortness of breath associated with diaphoresis, palpitations, nausea, lower extremity swelling. He does complain of pain in his foot when he steps on it, but he is trying to keep pressure off of it. PHYSICAL EXAMINATION: VITAL SIGNS: He is afebrile, pulse is 86, respirations 18, blood pressure is 166/86. GENERAL: He is in no acute distress, pleasant and cooperative, somewhat pale on examination. LUNGS: Clear to auscultation anteriorly. CARDIOVASCULAR: S1, S2 regular rate and rhythm. ABDOMEN: Obese and soft. EXTREMITIES: He has no edema. His dressing was removed from his right foot. There is very minimal drainage. I do not even actually see much drainage at all. The wound appears to be epithelializing at this time. There is no surrounding erythema. There is no purulence or signs of cellulitis. There is no sign of infection. Clinically, the wound looks really good. Also, he does not complain of tenderness when I press around the wound; however, he does complain of some discomfort at the metatarsal head of the second digit, which is very prominent in his forefoot. He has got positive pedal pulses and his toes are warm and he has got severe onychomycosis. LABORATORY DATA: Show white count of 6.5, hemoglobin of 12.3, INR is 1, BUN of 22, creatinine 1.29, glucose is 332, alkaline phosphatase is elevated at 146. Lipase is 543. ASSESSMENT AND PLAN: Diabetic foot ulcer with associated osteomyelitis, chronic, he is status post metatarsal resection of the fourth digit. The wound looks good. From my standpoint, I would just use a dry dressing at this time, just a pad and protect the area. Since he is complaining of continued discomfort, I would go ahead and get an x-ray, although I do not think that the discomfort that he feels is secondary to the wound. It may be neuropathic in [place], [place] REPORT OF CONSULTATION NAME: DEBORAH SANTACRUZ [place] UNIT #: [id number] ROOM: [facility] DOCTOR: LAURA WHITTINGTON M.D. BIRTHDATE: [birth year] nature or secondary to the forefoot deformity that he has from the diabetes. He is going to be getting some diabetic shoes. It looks like ID has been consulted. He was completing the antibiotics, ciprofloxacin and he was almost done with the Invanz and had been started on Cipro approximately 10 days ago. I would like to see what ID says before ordering any further antibiotics. As far as the pain goes in his foot, I would recommend having Podiatry take a look and see what their opinion is regarding the continued pain that he has, but I will go ahead and order an x-ray in the meantime. Thank you for this consult. ADDENDUM The x-ray of the patient was unremarkable without any abnormalities noted. Since the wound appears epithelialized, he does not have to follow back up in the wound center unless it reopens. He also can keep the wound protected with a dry dressing and change it if it gets dirty for about a week or more and then he can leave it open. As long as the wound remains closed, he does not need to follow up in the wound center. LAURA WHITTINGTON MD CM:CONSTR:REPORT OF CONSULTATION 1727 01/23/17 1424 interface
--- NOTE | ~2017-01-21 | CON ---
[place], [place] REPORT OF CONSULTATION NAME: DEBORAH SANTACRUZ [facility] #: [id number] UNIT #: [id number] ROOM: 428 DOCTOR: PAM ALVARADO MD BIRTHDATE: [birth year] DOS: 01/22/2017 HISTORY OF PRESENT ILLNESS: The patient is a 66-year-old -[place] man whom I have known for a very long time. He has coronary artery disease and RCA was stented a couple of times. He has been in this hospital and in [facility] numerous times because of chest pain and for most of the time, no cardiac etiology had been identified. He had a diagnostic heart cath earlier this month, which demonstrated normal LV systolic function, widely patent stents in the posterior descending artery and the distal right coronary artery disease in the other vessels. He has peripheral vascular disease and had an ulcer on the right foot and recently had right femoral artery stented by Dr. Daquan Turner. He has COPD, essential hypertension, diabetes mellitus, hyperlipidemia, has had cholecystectomy and has had problem with cocaine abuse until recently. He does not smoke cigarettes. He lives at home. He had come here for I believe IV antibiotics and developed some burning sensation in the chest, which still persists. There is no radiation of this feeling to the neck or to the arm. He has some epigastric discomfort as well. No sweating, dizziness or loss of consciousness. His medications were reviewed. Current home medications included amlodipine, finasteride, lisinopril, metoprolol, pantoprazole/Protonix, potassium chloride, ranolazine, ropinirole, Flomax and insulin. PHYSICAL EXAMINATION: GENERAL: Reveals a patient who is moderately obese. He is alert, oriented, very comfortable. He is not in any distress. He is not tachypneic. VITAL SIGNS: Pulse is regular at 76 beats per minute, blood pressure 149/75. NECK: JVP is difficult to assess. There is no carotid bruit. HEART: There is no cardiomegaly. Auscultation reveals no obvious murmurs. EXTREMITIES: There is no edema of the lower extremities. Right foot has a dressing on. LUNGS: Breath sounds are fairly decent bilaterally. Epigastrium is mildly tender. DIAGNOSTIC STUDIES: An ECG showed normal sinus rhythm and poor R-wave progression and an old inferior wall WI, which has been seen on previous ECGs over the last few years. LABORATORY DATA: Hemoglobin is 11.4 g/dL, WBC 5.3, platelets 105,000. Troponin is less than 0.015. Blood sugar yesterday was 332 mg/dL, creatinine is 1.29, BUN 22. IMPRESSION: 1. Coronary artery disease. He has had chest pain and burning sensation over the last few years. Stress test and recent coronary angiogram demonstrated that his chest pain is noncardiac, which I believe is the case this time as well. No further cardiac workup is warranted. His cardiac medications will be continued. 2. Peripheral vascular disease. This is being addressed along with treatment [place], [place] REPORT OF CONSULTATION NAME: DEBORAH SANTACRUZ UNIT #: [id number] ROOM: 428 DOCTOR: PAM ALVARADO MD BIRTHDATE: [birth year] of ischemic ulcer. I thank you for this consult. PAM ALVARADO MD CM:CONSTR:REPORT OF CONSULTATION 0705 01/22/17 1402 interface
--- NOTE | ~2017-01-21 | PR ---
[place], [place] PROGRESS NOTE NAME: DEBORAH SANTACRUZ [facility] #: [id number] UNIT #: [id number] ROOM: 428 DOCTOR: LAURA WHITTINGTON M.D. BIRTHDATE: [birth year] DOS: 01/23/2017 INTERVAL HISTORY: The patient's wound was examined again today. The dry dressing was removed, it remains dry. There is no drainage. The wound appears to continue to be epithelialized and closed. It is not opening up. I did see him walking around in the hallway without his postop shoe. For now, an x-ray was done, which was negative. He does continue to complain of pain in his feet. The pain that he describes does not appear to be related to the wound in my opinion at this point. As he has pain and discomfort in both of his feet, there is no open wound on his left foot either and needs a very nonspecific about where the pain is. Also on the right foot, he did have some discomfort around the metatarsal head of the forefoot, second and third digits of the right foot. There is no open wound there, but he does have a prominent forefoot deformity secondary to neuropathy and diabetes. From my standpoint, the patient's wound appears healed. He does not need to come back to the wound clinic unless it opens back up again, but I would recommend for him to be seen by Podiatry regarding his continued complaints of foot pain. In the meantime, a dry dressing was applied just to protect the area that has recently healed. LAURA WHITTINGTON MD CM:PNTRANS [id number] LAURA WHITTINGTON M.D. 01/23/17 1102 interface
[~2017-01-21 09:46] MED LIST changes: -COSOPT 2%-0.5%10 ML OPH; -LATANOPROST 2.2.5 ML OP
[2017-01-21 10:29] LABS: BASO % 0.5 % (0.0-1.0); EOS # 0.5 10*3/uL (0.0-0.4); HEMATOCRIT 36.5 % (42.0-52.0); HEMOGLOBIN 12.3 g/dl (14.0-18.0); LYMPH # 1.9 10*3/uL (1.3-4.4); LYMPH % 29.5 % (27.0-41.0); MEAN CELL VOLUME 92.2 fl (80.0-94.0); MEAN CORPUSCULAR HGB 31.1 pg (27.0-31.0); MEAN CORPUSCULAR HGB CONC 33.7 g/dl (33.0-37.0); MEAN PLATELET VOLUME 11.7 fl (9.6-12.3); MONO # 0.5 10*3/uL (0.1-1.0); MONO % 7.3 % (3.0-9.0); NEUT # 3.6 10*3/uL (2.3-7.9); NEUT % 55.2 % (47.0-73.0); PLATELET COUNT AUTOMATED 103 10*3/uL (130-400); RED BLOOD COUNT 3.96 10*6/uL (4.50-5.90); RED CELL DISTRI WIDTH 13.9 % (0-14.5); WHITE BLOOD COUNT 6.5 10*3/uL (4.8-10.8)
[2017-01-21 10:38] LABS: INTERNATIONAL NORM RATIO 1.1 (2.0-3.5)
[2017-01-21 10:47] LABS: ALBUMIN 2.9 gm/dl (3.1-4.5); ALKALINE PHOSPHATASE 146 U/L (45-117); BILIRUBIN, TOTAL 0.4 mg/dl (0.2-1.0); BUN 22 mg/dl (7-24); CARBON DIOXIDE 21 mmol/L (21-32); CHLORIDE 108 mmol/L (98-107); EST GLOM FILT AFRICAN AMERICAN > 60 ml/min; GLUCOSE 332 mg/dL (65-99); POTASSIUM 4.8 mmol/L (3.5-5.1); SGOT/AST 29 IU/L (3-35); SGPT/ALT 47 U/L (12-78); SODIUM 141 mmol/L (136-145); TOTAL PROTEIN 6.2 gm/dL (6.4-8.2)
[2017-01-21 10:58] LABS: MAGNESIUM 0.9 mg/dL (1.5-2.1); TROPONIN I < 0.015 ng/ml (<0.045)
[2017-01-21 14:13] LABS: CKMB 1.3 ng/ml (0.5-3.6); CPK 68 U/L (39-308); LDH 174 U/L (87-241)
[2017-01-21 14:14] LABS: TROPONIN I < 0.015 ng/ml (<0.045)
[2017-01-22 06:44] LABS: BASO % 0.4 % (0.0-1.0); EOS # 0.4 10*3/uL (0.0-0.4); EOS % 6.6 % (1.0-4.0); HEMATOCRIT 33.7 % (42.0-52.0); HEMOGLOBIN 11.4 g/dl (14.0-18.0); LYMPH # 1.7 10*3/uL (1.3-4.4); LYMPH % 32.6 % (27.0-41.0); MEAN CELL VOLUME 91.3 fl (80.0-94.0); MEAN CORPUSCULAR HGB 30.9 pg (27.0-31.0); MEAN CORPUSCULAR HGB CONC 33.8 g/dl (33.0-37.0); MEAN PLATELET VOLUME 11.1 fl (9.6-12.3); MONO # 0.4 10*3/uL (0.1-1.0); MONO % 8.2 % (3.0-9.0); NEUT # 2.7 10*3/uL (2.3-7.9); NEUT % 51.6 % (47.0-73.0); PLATELET COUNT AUTOMATED 105 10*3/uL (130-400); RED BLOOD COUNT 3.69 10*6/uL (4.50-5.90); RED CELL DISTRI WIDTH 14.1 % (0-14.5); WHITE BLOOD COUNT 5.3 10*3/uL (4.8-10.8)
[2017-01-22 07:27] LABS: CHLORIDE 107 mmol/L (98-107); POTASSIUM 4.3 mmol/L (3.5-5.1); SODIUM 141 mmol/L (136-145)
[2017-01-22 07:44] LABS: ALBUMIN 2.9 gm/dl (3.1-4.5); ALKALINE PHOSPHATASE 139 U/L (45-117); BILIRUBIN, TOTAL 0.4 mg/dl (0.2-1.0); BUN 21 mg/dl (7-24); CARBON DIOXIDE 21 mmol/L (21-32); EST GLOM FILT AFRICAN AMERICAN > 60 ml/min; GLUCOSE 199 mg/dL (65-99); SGOT/AST 18 IU/L (3-35); SGPT/ALT 38 U/L (12-78); TOTAL PROTEIN 5.9 gm/dL (6.4-8.2)
[2017-01-23 11:41] LABS: URINE AMPHETAMINES < 1000 (1000ng/ml); URINE BARBITURATES < 200 (200ng/ml); URINE COCAINE < 300 (300ng/ml)
== END 2017-01-23 13:26 | disposition left against medical advice (07) | DRG 438 ==
LOC: ED 09:46 → EDHOLD 11:11 → 4E 11:11
PROVIDERS: Internal Medicine; Nurse Practitioner Family; Student in an Organized Health Care Education/Training Program
DX: K85.90 Acute pancreatitis without necrosis or infection, unspecified (principal); E11.00 Type 2 diabetes mellitus with hyperosmolarity without nonketotic hyperglycemic-hyperosmolar coma (NKHHC); E46 Unspecified protein-calorie malnutrition; E11.51 Type 2 diabetes mellitus with diabetic peripheral angiopathy without gangrene; M86.9 Osteomyelitis, unspecified; E83.42 Hypomagnesemia; J44.1 Chronic obstructive pulmonary disease with (acute) exacerbation; L02.611 Cutaneous abscess of right foot; J44.9 Chronic obstructive pulmonary disease, unspecified; E11.621 Type 2 diabetes mellitus with foot ulcer; N18.3 Chronic kidney disease, stage 3 (moderate); I25.10 Atherosclerotic heart disease of native coronary artery without angina pectoris; E78.2 Mixed hyperlipidemia; Z53.21 Procedure and treatment not carried out due to patient leaving prior to being seen by health care provider; E11.69 Type 2 diabetes mellitus with other specified complication; Z96.641 Presence of right artificial hip joint; F32.9 Major depressive disorder, single episode, unspecified; K21.9 Gastro-esophageal reflux disease without esophagitis; N40.0 Benign prostatic hyperplasia without lower urinary tract symptoms; F41.9 Anxiety disorder, unspecified; M10.9 Gout, unspecified; Z86.73 Personal history of transient ischemic attack (TIA), and cerebral infarction without residual deficits; Z79.4 Long term (current) use of insulin; I25.2 Old myocardial infarction; Z95.5 Presence of coronary angioplasty implant and graft; Z90.49 Acquired absence of other specified parts of digestive tract; Z87.891 Personal history of nicotine dependence; Z80.0 Family history of malignant neoplasm of digestive organs; Z82.49 Family history of ischemic heart disease and other diseases of the circulatory system; Z88.1 Allergy status to other antibiotic agents; Z79.899 Other long term (current) drug therapy; Z68.31 Body mass index [BMI] 31.0-31.9, adult

== ENCOUNTER 2017-01-29 10:16 | Inpatient (IN) | payer MEDICARE ==
[~2017-01-29] VITALS: Ht 182.8 cm; Wt 107.7 kg
[2017-01-29] VITALS (7 sets, daily range): BP systolic 134–185; BP diastolic 68–105
--- NOTE | ~2017-01-29 | EKG ---
[place], [place] ELECTROCARDIOGRAM REPORT NAME: DEBORAH SANTACRUZ UNIT #: [id number] ROOM: [facility] DOCTOR: PAM ALVARADO MD BIRTHDATE: [birth year] DOS: 01/29/2017 TIME: 10:29 hours. Supraventricular tachycardia at 187 beats per minute. The rate is very regular with multifocal PVCs. An old inferior wall myocardial infarction. An abnormal ECG. PAM ALVARADO MD CM:EKGRPT:ELECTROCARDIOGRAM REPORT 1150 1347 PAM ALVARADO MD
--- NOTE | ~2017-01-29 | O ---
[place], [place] OPERATIVE NOTE NAME[id number] UNIT #: [id number] ROOM: 401 DOCTOR: BETHEL CHAO MD BIRTHDATE: [birth year] DOS: 01/31/2017 GASTROENDOSCOPIC REPORT HISTORY OF PRESENT ILLNESS: A 66-year-old patient who has presented with chief complaint of atypical chest pain, recurrent admissions as well cardiac tachycardia presentation, some nausea, subxyphoid pain, atypical chest pain. PROCEDURE: Today's procedure part of investigation is panendoscopy. PREMEDICATION: Versed and Diprivan. SCOPE: Olympus forward viewing gastroscope Q10 video. REPORT: After putting the patient in the left lateral position and after application of lubricant to the scope, the scope was introduced. Thereafter, under direct visualization, I advanced through the length of esophagus without difficulty. Distal esophageal ulceration at the esophagogastric junction was noticed, some evidence of distal esophagitis secondary to reflux seen. Gastric pouch was entered, antral erosions and linear ulcerations were photographed, biopsied. Duodenal bulb, second and third part within normal limits. The patient extubated, tolerated procedure well. IMPRESSION: Antral linear ulcers, status post biopsy, gastritis, distal esophageal ulcer, distal esophageal reflux, esophagitis. PLAN AND DISCUSSION: PPI, Gaviscon as antiacid of choice p.c. meals and p.r.n., soft diet and clinical reassessment and cardiac management. BETHEL CHAO MD CM:OPRECORD:OPERATIVE NOTE 0856 [id number] BETHEL CHAO MD 01/31/17 0911 interface
--- NOTE | ~2017-01-29 | CON ---
[place], [place] REPORT OF CONSULTATION NAME: DEBORAH SANTACRUZ [facility] #: [id number] UNIT #: [id number] ROOM: 401 DOCTOR: PAM ALVARADO MD BIRTHDATE: [birth year] DOS: 01/30/2017 HISTORY OF PRESENT ILLNESS: The patient is a 66-year-old -[place] man whom I know very well. He has coronary artery disease and has had inferior wall myocardial infarction and stents were deployed in the right coronary artery as well as in the posterior descending artery. He had a diagnostic heart catheterization done within the last few months and the stents were widely patent. LV systolic function is normal. An echocardiogram was also normal LV systolic function. PAST MEDICAL HISTORY: Includes COPD; chronic kidney disease, which fluctuates; BPH; chronic anxiety; diabetes mellitus; GERD and gastric ulcers; remote CVA with no residual; hypothyroidism. He also had used cocaine over the years and has been free of this consumption for the last year or so. He is a frequent visitor in this hospital and comes in almost on a monthly basis if not more frequently and this time, he had a more of a genuine reason to come. He woke up and a made a cup of coffee for himself and was feeling fine and soon thereafter developed fluttering in the chest as if his heart was beating really fast. After this began, he had a chest burning sensation which was of moderate severity. He did not have dizziness, did not pass out, and there was no sweating and nausea, and when he came to the Emergency Department, he was found to be in SVT at a rate of about 187 beats per minute and he was given adenosine, which took care of this dysrhythmia. He feels fine now, does not have any chest pain or breathing difficulty. No palpitations. He has some abdominal pain, which has been there for many weeks now. HOME MEDICATIONS: Include latanoprost eye drops, Cosopt eye drops, amlodipine 5 daily, potassium 10 mEq daily, ranolazine 500 mg every 12 hours, Flomax 0.4 mg daily, Protonix 40 mg daily, gabapentin 300 b.i.d., finasteride 5 mg daily, Cymbalta 60 mg daily, Depakote 250 mg daily. Apparently, he is not on a beta nikia or NATAN inhibitor. PHYSICAL EXAMINATION: GENERAL: This is a patient who is moderately obese. He is very pleasant, alert. His speech is not very clear and this is chronic. His complexion is fine. He is not diaphoretic. VITAL SIGNS: Temperature is normal. Pulse is regular at rate 84, blood pressure 143/84. NECK: JVP is difficult to assess. No bruit in the neck. HEART: There is no cardiomegaly. Auscultation reveals no murmurs or rubs. EXTREMITIES: There is no edema in the lower extremities: Pedal pulses are palpable. CHEST: Lungs are clear to percussion and auscultation with excellent breath sounds. No adventitious sounds were present. There is no chest wall tenderness. LABORATORY DATA: An ECG done in the Emergency Department demonstrates a [place], [place] REPORT OF CONSULTATION NAME: DEBORAH SANTACRUZ UNIT #: [id number] ROOM: [facility] DOCTOR: PAM ALVARADO MD BIRTHDATE: [birth year] supraventricular tachycardia that is very regular at 187 beats per minute, with old inferior wall myocardial infarction. Second ECG after [facility] of normal rhythm demonstrated normal sinus rhythm at 102 beats per minute with poor R-wave progression in chest leads and old inferior wall MS. This ECG is unchanged from ECG of the previous year or two. Troponin level is also normal. IMPRESSION: 1. This patient had this supraventricular tachycardia, which has not been documented previously. He is back in sinus rhythm. I would strongly recommend use of beta nikia, metoprolol 25 mg b.i.d. would be appropriate, this could also be used because of his coronary artery disease. 2. Coronary artery disease. He had chest burning sensation which was probably related to tachycardia. He has ruled out from acute myocardial infarction. As I mentioned above, additional beta nikia would be very important. I think an angiotensin-converting enzyme inhibitor should also be added in small doses. At one time, his blood pressure had been dropping significantly, so one needs to watch out for that. 3. No further cardiac workup such as an echocardiogram necessary. I thank you for this consult. PAM ALVARADO MD CM:CONSTR:REPORT OF CONSULTATION 0646 01/30/17 0821 interface
--- NOTE | ~2017-01-29 | EKG ---
[place], [place] ELECTROCARDIOGRAM REPORT NAME: DEBORAH SANTACRUZ UNIT #: [id number] ROOM: 401 DOCTOR: PAM ALVARADO MD BIRTHDATE: [birth year] DOS: 01/29/2017 TIME: 10:42 hours. Sinus tachycardia at 102 beats per minute. An old inferior wall myocardial infarction. Possible old anterior wall myocardial infarction. When compared with an ECG done about 14 minutes earlier, supraventricular tachycardia has been replaced by a normal sinus rhythm. PAM ALVARADO MD CM:EKGRPT:ELECTROCARDIOGRAM REPORT 1150 1339 PAM ALVARADO MD
--- NOTE | ~2017-01-29 | EKG ---
[place], [place] ELECTROCARDIOGRAM REPORT NAME: DEBORAH SANTACRUZ UNIT #: [id number] ROOM: 401 DOCTOR: PAM ALVARADO MD BIRTHDATE: [birth year] DOS: 01/30/2017 TIME: 08:21 hours. Normal sinus rhythm at 79 beats per minute. Poor R-wave progression. Old inferior wall myocardial infarction. No significant change from ECG done a couple of days earlier. PAM ALVARADO MD CM:EKGRPT:ELECTROCARDIOGRAM REPORT 1150 1350 PAM ALVARADO MD
--- NOTE | ~2017-01-29 | CON ---
[place], [place] REPORT OF CONSULTATION NAME: DEBROAH SANTACRUZ UNIT #: [id number] ROOM: 401 DOCTOR: BETHEL CHAO MD BIRTHDATE: [birth year] DOS: HISTORY OF PRESENT ILLNESS: A 66-year-old patient who presented with chief complaint of atypical chest pain, nausea, emesis and not responding to PPI, H2 nikia. His H and H was 13 and 39 at the time of admission, white blood cell was 9. INR was 1.1. Comprehensive metabolic panel, BUN and creatinine elevation; 30 and 1.3, electrolyte balance, liver function test, alkaline phosphatase 155. Chest x-ray: Small right pleural effusion. Lipase was 600. Chest x-ray again was reassessed. PAST MEDICAL HISTORY: Gastroesophageal reflux, hypothyroidism, diabetes, anxiety, CVA, chronic renal disease, COPD, BPH, hypothyroidism. PAST SURGICAL HISTORY: Rotator cuff, total knee, cholecystectomy, right toe amputation. SOCIAL HISTORY: Smoker and alcohol consumer. Recreational drug history. FAMILY HISTORY: Noncontributory. ALLERGIES: Piperacillin, vancomycin, tazobactam. MEDICATIONS: Reviewed. REVIEW OF SYSTEMS: HEENT: Denies double vision, blurred vision. RESPIRATORY: Denies shortness of breath. CARDIOVASCULAR: Denies chest pain. DIGESTIVE SYSTEM: Nausea, vomiting. PHYSICAL EXAMINATION: VITAL SIGNS: Stable. HEENT: Benign. NECK: Supple, no thyromegaly. CHEST: Symmetric anatomy, equal expansion. HEART: Normal sinus rhythm, no gallop, no murmur. ABDOMEN: Soft. No hepato-organomegaly. Bowel sounds present. Obese. EXTREMITIES: No cyanosis, no pedal edema. NEUROLOGIC: Alert, oriented to time, place and person. IMPRESSION: Nausea, vomiting, epigastric distress. Other adjunctive diagnoses as outlined in the paragraph of past medical and surgical history; atypical chest pain, dyspepsia. PLAN: EGD today. [place], [place] REPORT OF CONSULTATION NAME: DEBORAH SANTACRUZ [place] UNIT #: [id number] ROOM: 401 DOCTOR: BETHEL CHAO MD BIRTHDATE: [birth year] BETHEL CHAO MD CM:CONSTR:REPORT OF CONSULTATION 01/31/17 0857 interface
[2017-01-29 10:53] LABS: BASO % 0.3 % (0.0-1.0); EOS # 0.4 10*3/uL (0.0-0.4); EOS % 4.8 % (1.0-4.0); HEMATOCRIT 39.5 % (42.0-52.0); HEMOGLOBIN 13.3 g/dl (14.0-18.0); IG # 0.2 10*3/uL (0.0-0.1); LYMPH # 2.8 10*3/uL (1.3-4.4); LYMPH % 30.1 % (27.0-41.0); MEAN CELL VOLUME 92.1 fl (80.0-94.0); MEAN CORPUSCULAR HGB CONC 33.7 g/dl (33.0-37.0); MEAN PLATELET VOLUME 10.4 fl (9.6-12.3); MONO # 0.7 10*3/uL (0.1-1.0); NEUT # 5.2 10*3/uL (2.3-7.9); NEUT % 56.2 % (47.0-73.0); PLATELET COUNT AUTOMATED 217 10*3/uL (130-400); RED BLOOD COUNT 4.29 10*6/uL (4.50-5.90); RED CELL DISTRI WIDTH 14.6 % (0-14.5); WHITE BLOOD COUNT 9.3 10*3/uL (4.8-10.8)
[2017-01-29 11:01] LABS: INTERNATIONAL NORM RATIO 1.1 (2.0-3.5); PROTHROMBIN TIME 11.5 SECONDS (9.0-12.4)
[2017-01-29 11:11] LABS: ALBUMIN 3.6 gm/dl (3.1-4.5); ALKALINE PHOSPHATASE 155 U/L (45-117); BILIRUBIN, TOTAL 0.5 mg/dl (0.2-1.0); BUN 30 mg/dl (7-24); CARBON DIOXIDE 22 mmol/L (21-32); CHLORIDE 109 mmol/L (98-107); EST GLOM FILT AFRICAN AMERICAN > 60 ml/min; GLUCOSE 184 mg/dL (65-99); MAGNESIUM 1.2 mg/dL (1.5-2.1); POTASSIUM 4.4 mmol/L (3.5-5.1); SGOT/AST 19 IU/L (3-35); SGPT/ALT 48 U/L (12-78); SODIUM 142 mmol/L (136-145); TOTAL PROTEIN 7.4 gm/dL (6.4-8.2)
[2017-01-29 11:13] LABS: TROPONIN I < 0.015 ng/ml (<0.045)
[2017-01-29] MEDS ORDERED: CYMBALTA60 MG PO (13:18)
[2017-01-29] MEDS ORDERED: DEPAKOTE250 MG PO (13:22)
[2017-01-29] MEDS ORDERED: NEURONTIN300 MG PO (13:23)
[2017-01-29] MEDS ORDERED: COSOPT 2%-0.5%10 ML OPH (13:27)
[2017-01-29] MEDS ORDERED: LATANOPROST 2.2.5 ML OP (13:29)
[2017-01-29 21:11] LABS: CKMB 1.7 ng/ml (0.5-3.6); TROPONIN I 0.023 ng/ml (<0.045)
[2017-01-30] VITALS (9 sets, daily range): BP systolic 104–160; BP diastolic 63–102
[2017-01-31] VITALS (9 sets, daily range): BP systolic 96–141; BP diastolic 47–87
[2017-02-01] VITALS: BP 138/70
[2017-02-01 06:49] LABS: BASO % 0.4 % (0.0-1.0); EOS # 0.2 10*3/uL (0.0-0.4); EOS % 3.4 % (1.0-4.0); HEMATOCRIT 32.8 % (42.0-52.0); HEMOGLOBIN 10.6 g/dl (14.0-18.0); IG # 0.1 10*3/uL (0.0-0.1); LYMPH # 1.6 10*3/uL (1.3-4.4); LYMPH % 32.1 % (27.0-41.0); MEAN CELL VOLUME 93.4 fl (80.0-94.0); MEAN CORPUSCULAR HGB 30.2 pg (27.0-31.0); MEAN CORPUSCULAR HGB CONC 32.3 g/dl (33.0-37.0); MEAN PLATELET VOLUME 10.6 fl (9.6-12.3); MONO # 0.4 10*3/uL (0.1-1.0); MONO % 7.2 % (3.0-9.0); NEUT # 2.8 10*3/uL (2.3-7.9); NEUT % 55.9 % (47.0-73.0); PLATELET COUNT AUTOMATED 148 10*3/uL (130-400); RED BLOOD COUNT 3.51 10*6/uL (4.50-5.90); RED CELL DISTRI WIDTH 14.4 % (0-14.5)
[2017-02-01 07:10] LABS: BUN 25 mg/dl (7-24); CARBON DIOXIDE 24 mmol/L (21-32); CHLORIDE 115 mmol/L (98-107); EST GLOM FILT AFRICAN AMERICAN > 60 ml/min; GLUCOSE 177 mg/dL (65-99); POTASSIUM 5.1 mmol/L (3.5-5.1); SODIUM 146 mmol/L (136-145)
[2017-02-01 08:00] VITALS: BP 150/70
[2017-02-01 12:00] VITALS: BP 121/66
[2017-02-01] MEDS ORDERED: LISINOPRIL2.5 MG PO (12:32)
[2017-02-01] MEDS ORDERED: PROTONIX40 MG/PACK PO (12:32)
[2017-02-01] MEDS ORDERED: LOPRESSOR25 MG PO (12:32)
[2017-02-01] MEDS ORDERED: CARAFATE1 G1 PO (13:01)
[2017-02-03] MEDS ORDERED: CILOXAN 5 ML5 M1 OT (08:18)
== END 2017-02-01 13:36 | disposition home or self-care (01) | DRG 309 ==
LOC: ED 10:16 → 4E 11:42 → EDHOLD 11:42 → 4E 11:58
PROVIDERS: Family Medicine Adult Medicine; Internal Medicine
PROC: 0DB68ZX Excision of Stomach, Via Natural or Artificial Opening Endoscopic, Diagnostic (ICD-10-PCS; principal; 2017-01-31)
DX: I47.1 Supraventricular tachycardia (principal); L02.611 Cutaneous abscess of right foot; E11.22 Type 2 diabetes mellitus with diabetic chronic kidney disease; K22.10 Ulcer of esophagus without bleeding; I48.91 Unspecified atrial fibrillation; I13.0 Hypertensive heart and chronic kidney disease with heart failure and stage 1 through stage 4 chronic kidney disease, or unspecified chronic kidney disease; I50.32 Chronic diastolic (congestive) heart failure; E83.42 Hypomagnesemia; K25.9 Gastric ulcer, unspecified as acute or chronic, without hemorrhage or perforation; G40.909 Epilepsy, unspecified, not intractable, without status epilepticus; E11.65 Type 2 diabetes mellitus with hyperglycemia; F32.9 Major depressive disorder, single episode, unspecified; K21.0 Gastro-esophageal reflux disease with esophagitis; K29.70 Gastritis, unspecified, without bleeding; I25.10 Atherosclerotic heart disease of native coronary artery without angina pectoris; J44.9 Chronic obstructive pulmonary disease, unspecified; D63.8 Anemia in other chronic diseases classified elsewhere; F41.9 Anxiety disorder, unspecified; N40.0 Benign prostatic hyperplasia without lower urinary tract symptoms; N18.3 Chronic kidney disease, stage 3 (moderate); Z96.641 Presence of right artificial hip joint; M10.9 Gout, unspecified; E03.9 Hypothyroidism, unspecified; E78.2 Mixed hyperlipidemia; E66.01 Morbid (severe) obesity due to excess calories; E83.51 Hypocalcemia; Z86.73 Personal history of transient ischemic attack (TIA), and cerebral infarction without residual deficits; I25.2 Old myocardial infarction; Z87.442 Personal history of urinary calculi; Z90.49 Acquired absence of other specified parts of digestive tract; Z95.5 Presence of coronary angioplasty implant and graft; Z89.412 Acquired absence of left great toe; Z80.0 Family history of malignant neoplasm of digestive organs; Z82.49 Family history of ischemic heart disease and other diseases of the circulatory system; Z83.3 Family history of diabetes mellitus; Z79.84 Long term (current) use of oral hypoglycemic drugs; Z79.899 Other long term (current) drug therapy; Z87.11 Personal history of peptic ulcer disease; Z68.31 Body mass index [BMI] 31.0-31.9, adult

== ENCOUNTER → 2017-02-03 | Day surgery (SDC) | payer MEDICARE ==
[2017-01-17 09:29] VITALS: BP 142/64
[~2017-02-03] MED LIST changes: +CARAFATE1 G1 PO; +COSOPT 2%-0.5%10 ML OPH; +LATANOPROST 2.2.5 ML OP; +LISINOPRIL2.5 MG PO; +LOPRESSOR25 MG PO; +PROTONIX40 MG/PACK PO
--- NOTE | ~2017-02-03 | O ---
[place], [place] OPERATIVE NOTE NAME: [facility]Z [id number] UNIT #: [id number] ROOM: DOCTOR: PATRICIA COOK MD BIRTHDATE: [birth year] DOS: 02/03/2017 PREOPERATIVE DIAGNOSIS: Chronic otitis media with effusion. POSTOPERATIVE DIAGNOSIS: Chronic otitis media with effusion. OPERATION: BMT. SURGEON: Dr. Cook. ANESTHESIA: General. OPERATIVE FINDINGS AND PROCEDURE: The patient was taken to the operating room for BMT. Following induction of general anesthesia, the patient was positioned supine on the OR table and draped in the standard fashion for ear surgery. The surgical microscope was brought into the operative field. The right ear was examined. Myringotomy was performed. Standard Dimitri tympanostomy tube was inserted, and topical Ciprofloxacin drops were instilled. Next, the left ear was examined. Left myringotomy was performed. Standard Dimitri tympanostomy tube was inserted, and topical Ciprofloxacin drops were instilled. The patient tolerated the procedure well, was awakened, and transported to PACU in satisfactory condition. PATRICIA COOK MD CM:OPRECORD:OPERATIVE NOTE 0816 PATRICIA COOK MD 02/03/17 0831 interface
[2017-02-03 06:45] VITALS: BP 173/83
[2017-02-03 08:08] VITALS: BP 108/56
[2017-02-03 08:25] VITALS: BP 148/72
[2017-02-03 08:38] VITALS: BP 157/81
== END | disposition home or self-care (01) ==
LOC: SDC 12-18 08:00
DX: J35.01 Chronic tonsillitis (principal); I25.10 Atherosclerotic heart disease of native coronary artery without angina pectoris; Z86.73 Personal history of transient ischemic attack (TIA), and cerebral infarction without residual deficits; E78.00 Pure hypercholesterolemia, unspecified; E78.4 Other hyperlipidemia; F41.8 Other specified anxiety disorders; E11.22 Type 2 diabetes mellitus with diabetic chronic kidney disease; I12.9 Hypertensive chronic kidney disease with stage 1 through stage 4 chronic kidney disease, or unspecified chronic kidney disease; N18.9 Chronic kidney disease, unspecified; Z96.641 Presence of right artificial hip joint

== ENCOUNTER 2017-02-15 12:36 | Inpatient (IN) | payer MEDICARE ==
[~2017-02-15] VITALS: Ht 183 cm; Wt 103.6 kg
[2017-02-15 12:42] VITALS: BP 196/111
[2017-02-15 13:11] VITALS: BP 169/97
[2017-02-15 13:46] LABS: BASO % 0.4 % (0.0-1.0); EOS # 0.2 10*3/uL (0.0-0.4); EOS % 2.5 % (1.0-4.0); HEMATOCRIT 38.8 % (42.0-52.0); HEMOGLOBIN 13.2 g/dl (14.0-18.0); IG # 0.1 10*3/uL (0.0-0.1); LYMPH # 1.4 10*3/uL (1.3-4.4); LYMPH % 20.7 % (27.0-41.0); MEAN CELL VOLUME 91.1 fl (80.0-94.0); MEAN PLATELET VOLUME 11.3 fl (9.6-12.3); MONO # 0.5 10*3/uL (0.1-1.0); MONO % 7.6 % (3.0-9.0); NEUT # 4.6 10*3/uL (2.3-7.9); NEUT % 67.9 % (47.0-73.0); PLATELET COUNT AUTOMATED 108 10*3/uL (130-400); RED BLOOD COUNT 4.26 10*6/uL (4.50-5.90); RED CELL DISTRI WIDTH 13.8 % (0-14.5); WHITE BLOOD COUNT 6.8 10*3/uL (4.8-10.8)
[2017-02-15 14:04] LABS: BUN 20 mg/dl (7-24); CARBON DIOXIDE 23 mmol/L (21-32); CHLORIDE 103 mmol/L (98-107); EST GLOM FILT AFRICAN AMERICAN > 60 ml/min; GLUCOSE 228 mg/dL (65-99); POTASSIUM 4.6 mmol/L (3.5-5.1); SODIUM 138 mmol/L (136-145)
[2017-02-15 14:06] LABS: TROPONIN I < 0.015 ng/ml (<0.045)
[2017-02-15] MEDS ORDERED: RISPERIDONE M-0.5 MG PO (14:10)
[2017-02-15 14:21] VITALS: BP 168/90
[2017-02-15 16:49] VITALS: BP 143/87
[2017-02-15 18:05] VITALS: BP 122/98
[2017-02-15 20:00] VITALS: BP 126/87
[2017-02-16] VITALS (7 sets, daily range): BP systolic 110–156; BP diastolic 69–86
[2017-02-16 06:57] LABS: BASO % 0.2 % (0.0-1.0); HEMATOCRIT 34.5 % (42.0-52.0); HEMOGLOBIN 11.7 g/dl (14.0-18.0); IG # 0.1 10*3/uL (0.0-0.1); LYMPH # 0.6 10*3/uL (1.3-4.4); LYMPH % 13.6 % (27.0-41.0); MEAN CELL VOLUME 90.6 fl (80.0-94.0); MEAN CORPUSCULAR HGB 30.7 pg (27.0-31.0); MEAN CORPUSCULAR HGB CONC 33.9 g/dl (33.0-37.0); MEAN PLATELET VOLUME 12.2 fl (9.6-12.3); MONO # 0.1 10*3/uL (0.1-1.0); MONO % 2.4 % (3.0-9.0); NEUT # 3.7 10*3/uL (2.3-7.9); NEUT % 81.8 % (47.0-73.0); PLATELET COUNT AUTOMATED 116 10*3/uL (130-400); RED BLOOD COUNT 3.81 10*6/uL (4.50-5.90); RED CELL DISTRI WIDTH 13.7 % (0-14.5); WHITE BLOOD COUNT 4.6 10*3/uL (4.8-10.8)
[2017-02-16 07:35] LABS: ALBUMIN 2.9 gm/dl (3.1-4.5); POTASSIUM 5.1 mmol/L (3.5-5.1)
[2017-02-16 07:42] LABS: BILIRUBIN, TOTAL 0.3 mg/dl (0.2-1.0)
== END 2017-02-16 20:30 | disposition left against medical advice (07) | DRG 191 ==
LOC: ED 12:36 → EDHOLD 15:46 → 4E 16:11
PROVIDERS: Emergency Medicine; Internal Medicine
DX: J44.1 Chronic obstructive pulmonary disease with (acute) exacerbation (principal); N17.9 Acute kidney failure, unspecified; E11.22 Type 2 diabetes mellitus with diabetic chronic kidney disease; I13.0 Hypertensive heart and chronic kidney disease with heart failure and stage 1 through stage 4 chronic kidney disease, or unspecified chronic kidney disease; I50.32 Chronic diastolic (congestive) heart failure; S79.911A Unspecified injury of right hip, initial encounter; F41.9 Anxiety disorder, unspecified; N40.0 Benign prostatic hyperplasia without lower urinary tract symptoms; N18.3 Chronic kidney disease, stage 3 (moderate); F32.9 Major depressive disorder, single episode, unspecified; Z53.21 Procedure and treatment not carried out due to patient leaving prior to being seen by health care provider; E78.2 Mixed hyperlipidemia; I25.10 Atherosclerotic heart disease of native coronary artery without angina pectoris; E66.9 Obesity, unspecified; Z95.5 Presence of coronary angioplasty implant and graft; Z90.49 Acquired absence of other specified parts of digestive tract; Z89.432 Acquired absence of left foot; Z86.73 Personal history of transient ischemic attack (TIA), and cerebral infarction without residual deficits; I25.2 Old myocardial infarction; Z87.891 Personal history of nicotine dependence; Z80.0 Family history of malignant neoplasm of digestive organs; Z82.49 Family history of ischemic heart disease and other diseases of the circulatory system; Z79.4 Long term (current) use of insulin; Z79.899 Other long term (current) drug therapy; Z79.2 Long term (current) use of antibiotics; Z88.1 Allergy status to other antibiotic agents; Z68.30 Body mass index [BMI] 30.0-30.9, adult

== ENCOUNTER → 2017-02-18 | Outpatient (CLI) | payer MEDICARE ==
[~2017-02-18] MED LIST changes: +RISPERIDONE M-0.5 MG PO
[2017-02-18 11:16] LABS: BASO % 0.3 % (0.0-1.0); EOS # 0.3 10*3/uL (0.0-0.4); EOS % 3.1 % (1.0-4.0); HEMATOCRIT 38.6 % (42.0-52.0); IG # 0.1 10*3/uL (0.0-0.1); LYMPH # 2.7 10*3/uL (1.3-4.4); LYMPH % 27.9 % (27.0-41.0); MEAN CELL VOLUME 91.7 fl (80.0-94.0); MEAN CORPUSCULAR HGB 30.9 pg (27.0-31.0); MEAN CORPUSCULAR HGB CONC 33.7 g/dl (33.0-37.0); MEAN PLATELET VOLUME 11.3 fl (9.6-12.3); MONO # 0.6 10*3/uL (0.1-1.0); MONO % 6.3 % (3.0-9.0); NEUT # 5.8 10*3/uL (2.3-7.9); PLATELET COUNT AUTOMATED 162 10*3/uL (130-400); RED BLOOD COUNT 4.21 10*6/uL (4.50-5.90); WHITE BLOOD COUNT 9.6 10*3/uL (4.8-10.8)
[2017-02-18 11:47] LABS: ALBUMIN 3.2 gm/dl (3.1-4.5); ALKALINE PHOSPHATASE 142 U/L (45-117); BILIRUBIN, DIRECT < 0.1 mg/dL (0.0-0.2); BILIRUBIN, TOTAL 0.3 mg/dl (0.2-1.0); BUN 40 mg/dl (7-24); CARBON DIOXIDE 23 mmol/L (21-32); CHLORIDE 106 mmol/L (98-107); EST GLOM FILT AFRICAN AMERICAN 41 ml/min; GLUCOSE 324 mg/dL (65-99); POTASSIUM 4.8 mmol/L (3.5-5.1); SGOT/AST 8 IU/L (3-35); SGPT/ALT 22 U/L (12-78); SODIUM 141 mmol/L (136-145)
== END | disposition home or self-care (01) ==
LOC: LAB 10:50
PROVIDERS: Nurse Practitioner Family
DX: Z79.899 Other long term (current) drug therapy (principal)

== ENCOUNTER 2017-02-22 11:01 | Inpatient (IN) | payer MEDICARE ==
[2017-02-22] VITALS (8 sets, daily range): BP systolic 149–166; BP diastolic 64–84
[~2017-02-22] VITALS: Ht 182.8 cm; Wt 106.6 kg
--- NOTE | ~2017-02-22 | CON ---
[place], [place] REPORT OF CONSULTATION NAME: DE[facility]ANT[facility]CRUZ [facility] [id number] UNIT #: [id number] ROOM: 520 DOCTOR: PAM ALVARADO MD BIRTHDATE: [birth year] DOS: 02/23/2017 HISTORY OF PRESENT ILLNESS: This is a 66-year-old -[place] man with a history of coronary artery disease. He had a couple of stents deployed in the right coronary artery, last one was a year and a half ago or so. He has preserved LV systolic function. He has come to the hospital because of abdominal discomfort and lower anterior chest discomfort and pain. When he moves his right arm up, he has pain over the lateral side of the chest. The pain has been persistent for the last 2 days and has been accompanied by some nausea. He has not had any shortness of breath more than he is accustomed to. No palpitations, sweating, or any loss of consciousness. He has not had any swelling of the lower extremities and no orthopnea. PAST MEDICAL HISTORY: Also includes COPD, chronic kidney disease, BPH, chronic anxiety, diabetes mellitus, gastric ulcers, GERD and hypothyroidism. He has used cocaine over the years and last use was I believe last year. SOCIAL HISTORY: He has had addiction of cocaine, but has been dry for the last year or so. He does not smoke, lives at home. HOME MEDICATIONS: Symbicort, Cosopt eyedrops, ciprofloxacin eyedrops, latanoprost eyedrops, Depakote, Cymbalta, finasteride, furosemide 20 mg daily, gabapentin, lisinopril 2.5 mg, Protonix 40 b.i.d., potassium chloride 10 mEq daily, ranolazine 500 b.i.d., risperidone 0.5 mg at bedtime, Carafate 1 gram t.i.d., Flomax and insulin. PHYSICAL EXAMINATION: GENERAL: The patient who is morbidly obese. His speech is not quite clear. This is chronic. His complexion is fine. VITAL SIGNS: Pulse is irregular at 72 beats per minute, blood pressure 130/60. NECK: Normal JVP. No bruit in the neck. HEART: There is no cardiomegaly, no murmurs are present. RESPIRATORY: Breath sounds are fairly decent bilaterally with hardly any adventitious sounds. EXTREMITIES: No edema of the lower extremities. LABORATORY DATA: An ECG showed normal sinus rhythm and an old inferior wall LA, poor RV progression/old anterior wall LA. The ECG is unchanged from previous ECG over the last couple of years. Troponin I level was also normal. IMPRESSION: This patient has had numerous hospitalizations. He comes to the hospital almost on a monthly basis with chest pain and abdominal pain. I think this is noncardiac. No further cardiac workup is warranted. From cardiac standpoint, he may be discharged. I thank you for this consult. [place], [place] REPORT OF CONSULTATION NAME: DEBORAH SANTACRUZ UNIT #: [id number] ROOM: 520 DOCTOR: PAM ALVARADO MD BIRTHDATE: [birth year] PAM ALVARADO MD CM:CONSTR:REPORT OF CONSULTATION 1245 02/24/17 0129 interface
[~2017-02-22 11:01] MED LIST changes: -LATANOPROST 2.2.5 ML OP; +LATANOPROST 2.2.5 ML OU
[2017-02-22 11:59] LABS: BASO % 0.3 % (0.0-1.0); EOS # 0.2 10*3/uL (0.0-0.4); EOS % 2.2 % (1.0-4.0); HEMATOCRIT 37.5 % (42.0-52.0); HEMOGLOBIN 12.8 g/dl (14.0-18.0); IG # 0.2 10*3/uL (0.0-0.1); LYMPH % 23.3 % (27.0-41.0); MEAN CELL VOLUME 90.4 fl (80.0-94.0); MEAN CORPUSCULAR HGB 30.8 pg (27.0-31.0); MEAN CORPUSCULAR HGB CONC 34.1 g/dl (33.0-37.0); MONO # 0.6 10*3/uL (0.1-1.0); MONO % 7.3 % (3.0-9.0); NEUT # 5.6 10*3/uL (2.3-7.9); NEUT % 64.9 % (47.0-73.0); PLATELET COUNT AUTOMATED 181 10*3/uL (130-400); RED BLOOD COUNT 4.15 10*6/uL (4.50-5.90); RED CELL DISTRI WIDTH 13.5 % (0-14.5); WHITE BLOOD COUNT 8.6 10*3/uL (4.8-10.8)
[2017-02-22 12:07] LABS: INTERNATIONAL NORM RATIO 1.1 (2.0-3.5); PROTHROMBIN TIME 11.7 SECONDS (9.0-12.4)
[2017-02-22 12:16] LABS: ALBUMIN 3.4 gm/dl (3.1-4.5); ALKALINE PHOSPHATASE 153 U/L (45-117); BILIRUBIN, TOTAL 0.4 mg/dl (0.2-1.0); BUN 35 mg/dl (7-24); CARBON DIOXIDE 24 mmol/L (21-32); CHLORIDE 101 mmol/L (98-107); EST GLOM FILT AFRICAN AMERICAN 48 ml/min; GLUCOSE 426 mg/dL (65-99); POTASSIUM 4.2 mmol/L (3.5-5.1); SGOT/AST 18 IU/L (3-35); SGPT/ALT 29 U/L (12-78); SODIUM 137 mmol/L (136-145); TOTAL PROTEIN 6.9 gm/dL (6.4-8.2)
[2017-02-22 12:18] LABS: TROPONIN I < 0.015 ng/ml (<0.045)
[2017-02-22 12:20] LABS: MAGNESIUM 0.8 mg/dL (1.5-2.1)
[2017-02-22 13:56] LABS: LA>2 REFLEX 2 HR DRAW NOW
[2017-02-22 14:14] LABS: LA>2 RFLX FOLLOW UP AT 2 HRS 4.7 mmol/L (0.4-2.0)
[2017-02-22] MEDS ORDERED: LASIX20 MG PO (15:31)
[2017-02-22] MEDS ORDERED: SYMBICORT1 AER INH (15:32)
[2017-02-22] MEDS ORDERED: NORCO 5-325 TA1 EACH PO (15:33)
[2017-02-22 16:03] LABS: LA>2 REFLEX 4 HR DRAW NOW
[2017-02-22 16:52] LABS: CKMB 1.2 ng/ml (0.5-3.6); CPK 33 U/L (39-308); LDH 167 U/L (87-241)
[2017-02-22 16:53] LABS: TROPONIN I < 0.015 ng/ml (<0.045)
[2017-02-22 19:54] LABS: URINE AMPHETAMINES < 1000 (1000ng/ml); URINE BARBITURATES < 200 (200ng/ml); URINE COCAINE < 300 (300ng/ml)
[2017-02-22] MEDS ORDERED: LOPRESSOR50 M1 PO (20:39)
[2017-02-23] VITALS: BP 154/76
[2017-02-23 06:05] LABS: HEMATOCRIT 32.4 % (42.0-52.0); HEMOGLOBIN 11.1 g/dl (14.0-18.0); MEAN CELL VOLUME 89.8 fl (80.0-94.0); MEAN CORPUSCULAR HGB 30.7 pg (27.0-31.0); MEAN CORPUSCULAR HGB CONC 34.3 g/dl (33.0-37.0); MEAN PLATELET VOLUME 11.2 fl (9.6-12.3); PLATELET COUNT AUTOMATED 164 10*3/uL (130-400); RED BLOOD COUNT 3.61 10*6/uL (4.50-5.90); RED CELL DISTRI WIDTH 13.1 % (0-14.5)
[2017-02-23 06:28] LABS: BILIRUBIN, TOTAL 0.3 mg/dl (0.2-1.0); MAGNESIUM 1.4 mg/dL (1.5-2.1); TOTAL PROTEIN 6.1 gm/dL (6.4-8.2)
[2017-02-23 06:31] LABS: POTASSIUM 5.2 mmol/L (3.5-5.1)
[2017-02-23 06:38] LABS: LYMPHOCYTE # 0.5 10*3/uL (1.3-4.4); METAMYELOCYTES 2 % (0-0); MONOCYTE # 0.1 10*3/uL (0.1-1.0); NEUTROPHIL # 8.3 10*3/uL (2.3-7.9); NEUTROPHILS 92 % (47-73); POLYCHROMASIA SLIGHT; TOTAL CELLS COUNTED 100 #CELLS
[2017-02-23 06:39] LABS: PLATELET SUFFICIENCY NORMAL (NORMAL)
[2017-02-23 08:00] VITALS: BP 148/85
[2017-02-23 12:00] VITALS: BP 130/60
[2017-02-23 15:39] LABS: LA>2 REFLEX 2 HR DRAW NOW
[2017-02-23 16:00] VITALS: BP 127/72
[2017-02-23 16:15] LABS: LA>2 RFLX FOLLOW UP AT 2 HRS 4.9 mmol/L (0.4-2.0)
[2017-02-23 17:57] LABS: LA>2 REFLEX 4 HR DRAW NOW
[2017-02-23 20:00] VITALS: BP 117/69
[2017-02-24] VITALS: BP 128/69
[2017-02-24 05:47] LABS: HEMOGLOBIN 10.8 g/dl (14.0-18.0); MEAN CELL VOLUME 91.7 fl (80.0-94.0); MEAN CORPUSCULAR HGB 30.9 pg (27.0-31.0); MEAN CORPUSCULAR HGB CONC 33.8 g/dl (33.0-37.0); MEAN PLATELET VOLUME 11.5 fl (9.6-12.3); PLATELET COUNT AUTOMATED 158 10*3/uL (130-400); RED BLOOD COUNT 3.49 10*6/uL (4.50-5.90); RED CELL DISTRI WIDTH 13.6 % (0-14.5); WHITE BLOOD COUNT 8.8 10*3/uL (4.8-10.8)
[2017-02-24 05:58] LABS: ALBUMIN 2.7 gm/dl (3.1-4.5); BILIRUBIN, TOTAL 0.2 mg/dl (0.2-1.0); MAGNESIUM 1.6 mg/dL (1.5-2.1); PHOSPHOROUS 2.5 mg/dL (2.5-4.9); POTASSIUM 4.5 mmol/L (3.5-5.1); TOTAL PROTEIN 5.6 gm/dL (6.4-8.2)
[2017-02-24 06:41] LABS: LYMPHOCYTE # 1.2 10*3/uL (1.3-4.4); MONOCYTE # 0.4 10*3/uL (0.1-1.0); NEUTROPHIL # 7.2 10*3/uL (2.3-7.9); NEUTROPHILS 82 % (47-73); PLATELET SUFFICIENCY NORMAL (NORMAL); TOTAL CELLS COUNTED 100 #CELLS
[2017-02-24 08:00] VITALS: BP 135/71
[2017-02-24] MEDS ORDERED: METOPROLOL TART50 M1 PO (11:11)
[2017-02-24] MEDS ORDERED: HUMALOG100 U/ML SC (11:11)
[2017-02-24] MEDS ORDERED: AMLODIPINE BESYL5 MG PO (11:11)
[2017-02-24] MEDS ORDERED: DOXYCYCLINE MO100 M1 PO (11:11)
[2017-02-24] MEDS ORDERED: LEVEMIR10 ML SC (11:11)
[2017-02-24] MEDS ORDERED: PROAIR HFA8.5 GM INH (11:11)
[2017-02-24] MEDS ORDERED: TEST STRIPS1 EACH MC (11:55)
[2017-02-24] MEDS ORDERED: [UNRECOGNIZED DRUG - OTHER] TP (11:55)
[2017-02-24] MEDS ORDERED: INSULIN SYRING1 EAC1 MC (11:55)
[2017-02-24 13:00] LABS: LA>2 REFLEX 2 HR DRAW NOW
== END 2017-02-24 12:35 | disposition home or self-care (01) | DRG 191 ==
LOC: ED 11:01 → EDHOLD 13:43 → 5E 13:43 → 4E 14:10 → 5E 14:20
PROVIDERS: Internal Medicine; Nurse Practitioner Family
DX: J44.1 Chronic obstructive pulmonary disease with (acute) exacerbation (principal); E44.0 Moderate protein-calorie malnutrition; N17.9 Acute kidney failure, unspecified; E87.2 Acidosis; E87.1 Hypo-osmolality and hyponatremia; E83.42 Hypomagnesemia; E87.5 Hyperkalemia; E11.65 Type 2 diabetes mellitus with hyperglycemia; E11.22 Type 2 diabetes mellitus with diabetic chronic kidney disease; D64.9 Anemia, unspecified; E78.2 Mixed hyperlipidemia; I12.9 Hypertensive chronic kidney disease with stage 1 through stage 4 chronic kidney disease, or unspecified chronic kidney disease; F41.9 Anxiety disorder, unspecified; Z96.641 Presence of right artificial hip joint; N40.0 Benign prostatic hyperplasia without lower urinary tract symptoms; E66.9 Obesity, unspecified; I25.10 Atherosclerotic heart disease of native coronary artery without angina pectoris; N18.3 Chronic kidney disease, stage 3 (moderate); K21.9 Gastro-esophageal reflux disease without esophagitis; M10.9 Gout, unspecified; Z86.73 Personal history of transient ischemic attack (TIA), and cerebral infarction without residual deficits; I25.2 Old myocardial infarction; Z95.5 Presence of coronary angioplasty implant and graft; Z90.49 Acquired absence of other specified parts of digestive tract; Z89.411 Acquired absence of right great toe; Z87.891 Personal history of nicotine dependence; Z80.0 Family history of malignant neoplasm of digestive organs; Z82.49 Family history of ischemic heart disease and other diseases of the circulatory system; Z88.1 Allergy status to other antibiotic agents; Z79.2 Long term (current) use of antibiotics; Z79.4 Long term (current) use of insulin; Z79.899 Other long term (current) drug therapy; Z68.30 Body mass index [BMI] 30.0-30.9, adult

== ENCOUNTER 2017-02-28 15:26 | Inpatient (IN) | payer MEDICARE ==
[~2017-02-28] VITALS: Ht 182.9 cm; Wt 102.1 kg
--- NOTE | ~2017-02-28 | CON ---
[place], [place] REPORT OF CONSULTATION NAME[id number] UNIT #: [id number] ROOM: 521 DOCTOR: PAM ALVARADO MD BIRTHDATE: [birth year] DOS: 03/02/2017 HISTORY OF PRESENT ILLNESS: This is tenth admission of this patient to this hospital since November and that averages to 1 admission every 12 days. He had similar admission last year. This patient keeps coming back with similar pain which are almost always noncardiac. He was here last week with anterior chest pain and left lateral abdominal pain and workup was fine. His pain seemed to go away eventually. He came back now because of right lateral and anterolateral chest pain and right shoulder pain. He did not fall. Now, he complains of numbness in left arm that started about 15 minutes before I examined him. He has not had any worsening of this pain when he is walking around. When he moves his shoulder and arm, it seems to bother him more. No sweating, nausea. He has not had any blackouts and no palpitations. PAST MEDICAL HISTORY: Includes drug addiction with cocaine, COPD, chronic kidney disease, BPH, chronic anxiety, diabetes mellitus, gastric ulcers, GERD, hypothyroidism and coronary artery disease. He has had a couple of stents deployed in the right coronary artery. Had a heart catheterization a few months ago, showed no significant blockages, stents were widely patent. HOME MEDICATIONS: Included a large list, few breathing treatments, amlodipine 5 mg daily, atorvastatin 40 daily, Depakote 250 mg daily, doxycycline 100 mg q.12 hours, Cymbalta 60 daily, finasteride 5 mg daily, furosemide 20 mg daily, gabapentin 300 b.i.d., hydrocodone 5/325 mg daily, levothyroxine 125 mcg daily, magnesium oxide 400 b.i.d., metoprolol tartrate 50 b.i.d., sublingual nitroglycerin p.r.n., Protonix 40 daily, potassium chloride 10 mEq daily, Ranexa 500 b.i.d., risperidone and Carafate, also Flomax and insulin. PHYSICAL EXAMINATION: GENERAL: Reveals a patient who is moderately obese. He is alert and oriented, but his speech is garbled which has been for years. There is no finger clubbing. VITAL SIGNS: Pulse is 66 and regular, blood pressure 136/74. JVP is difficult to assess, no bruit. CARDIOVASCULAR: Cardiac auscultation unremarkable. LUNGS: Breath sounds are fairly decent. EXTREMITIES: He has no edema of lower extremities. MUSCULOSKELETAL: There is quite a bit of tenderness over the anterior area of the right shoulder joint and abduction causes quite a bit of pain. There is right lateral pectoralis muscle tenderness as well. LABORATORY DATA: Two ECGs have showed normal sinus rhythm, old inferior wall IL and poor R-wave progression. have remained unchanged over the last few years. He had an echocardiogram not long ago, which showed normal LV systolic function. IMPRESSION: This patient has coronary artery disease, but his pains are noncardiac. I think this is most likely musculoskeletal. He may even have mild arthritis or capsulitis of the right shoulder. [place], [place] REPORT OF CONSULTATION NAME: DEBORAH SANTACRUZ UNIT #: [id number] ROOM: 521 DOCTOR: PMA ALVARADO MD BIRTHDATE: [birth year] From cardiac standpoint, he should be ambulated and may be discharged home. Thank you for this consult. PAM ALVARADO MD CM:CONSTR:REPORT OF CONSULTATION 1215 03/02/17 7728 interface
--- NOTE | ~2017-02-28 | WRIGHTHP ---
[place], [place] PATIENT HISTORY AND PHYSICAL EXAM NAME: DEBORAH SANTACRUZ [facility] #: [id number] UNIT #: [id number] ROOM: 521 DOCTOR: MEGHAN GREGORY MD BIRTHDATE: [birth year] DOS: 02/28/2017 HISTORY OF PRESENT ILLNESS: The patient has been admitted to hospital on 02/28/2017 with history of having sharp chest pain in the mid sternal region and to the right side of chest. He is a known case of known case of cardiac problem in the past plus he was also having some shortness of breath and nauseated, came to the Emergency Department from where he is admitted to the hospital. The patient was only recently discharged from the hospital on 02/24/2017. At that time, he was admitted with history of COPD, acute excerebration and patient is a known case of COPD with emphysema, chronic venous insufficiency, lactic acidosis, hyponatremia, hyperkalemia, hyperglycemia, protein caloric malnutrition, moderate renal failure, obesity, insulin-dependent diabetes mellitus, and normocytic anemia. The patient was seen by Dr. Metz during his last admission along with Dr. Cates, partner marketing intern. During his last stay in the hospital, there was no evidence of any myocardial infarction and patient had also had echocardiogram done during that time. His echocardiogram showed left ____ normal, aortic valve functions normal, no aortic regurgitation, no aortic valve stenosis, mild tricuspid regurgitation, mild pulmonary hypertension, pulmonary valve was normal, normal left ventricular systolic function, diastolic function of left ventricle, grade 1, mild pulmonary hypertension. According to Dr. Metz consulted the patient with coronary heart disease. He had mild chest burning signs, which was probably related to the tachycardia. He has ruled out any form of acute myocardial infarction during that admission. The patient denies any nausea or vomiting. MEDICATIONS: The patient is taking following medications: Carafate 1 gram 3 times daily, metoprolol 50 mg 3 times daily, amlodipine 5 mg daily, Levemir 35 units twice daily, aerosol treatment with albuterol, Protonix 40 mg twice daily. PAST MEDICAL HISTORY: The patient has past history of surgical stent placement with permanent pacemaker here ____ placement. PAST SURGICAL HISTORY: Rotator cuff surgery, history of total right hip replacement, history of laparoscopic cholecystectomy, status post amputation of the left great toe, status post amputation of the left foot, status post incision and drainage. SOCIAL HISTORY: The patient drinks alcohol 6 pack of beer in a week. She used to smoke up to smoke before, but has stopped smoking now. FAMILY HISTORY: His mother of cancer of the stomach. Father of myocardial infarction. There is history of myocardial infarction in the family and coronary heart disease with diabetes mellitus. PHYSICAL EXAMINATION: GENERAL: The patient is conscious, alert and oriented, not in any stress. VITAL SIGNS: His blood pressure is 129/72, pulse 64, respirations 18, temperature 97.7. He is 6 feet tall, weighing 234 pounds. HEENT: His ENT examination is unremarkable. No glandular enlargement. NECK: Trachea is center. Neck veins are not distended. Carotid pulsation [place], [place] PATIENT HISTORY AND PHYSICAL EXAM NAME: DE[facility]CRUZ [facility] [id number] UNIT #: [id number] ROOM: 521 DOCTOR: MEGHAN GREGORY MD BIRTHDATE: [birth year] normal. HEART: Regular, no murmur. LUNGS: Showing some increased expiration with slight wheezing. ABDOMEN: Soft. Liver and spleen not palpable. No area of tenderness. No mass palpable. Status post amputation of the left foot. EXTREMITIES: No edema of the leg. LABORATORY DATA: The patient's CK-MB, troponin level 2 times has been done and normal. Chest x-ray showing no abnormality. Comprehensive metabolic profile showed chronic renal failure. Lipase level is 211, which is normal. DIAGNOSES: Chest pain with anxiety with history of chronic renal failure due to diabetes, chronic obstructive pulmonary disease, emphysema, depression, insulin-dependent diabetes mellitus, elevated blood pressure, gastroesophageal reflux disease syndrome, gout, history of cerebrovascular accident in the past, history of hyperglycemia, hyperkalemia, hypomagnesemia, hypothyroidism, morbid obesity, protein-calorie malnutrition. PLAN OF TREATMENT: The patient will be admitted to the hospital, will be continued on his home medication and will do serial EKG and isoenzymes level and will be watched closely regarding his cardiac status. MEGHAN GREGORY MD CM:HISPHYS:PATIENT HISTORY AND PHYSICAL EXAMINATION 1237 [id number] MEGHAN GREGORY MD 03/01/17 1328 interface
[2017-02-28 15:26] VITALS: BP 191/112
[~2017-02-28 15:26] MED LIST changes: +INSULIN SYRING1 EAC1 MC; +METOPROLOL TART50 M1 PO; +SYMBICORT1 AER INH; +TEST STRIPS1 EACH MC; +[UNRECOGNIZED DRUG - OTHER] TP
[2017-02-28 15:54] LABS: BASO % 0.3 % (0.0-1.0); EOS # 0.4 10*3/uL (0.0-0.4); EOS % 2.7 % (1.0-4.0); HEMATOCRIT 42.7 % (42.0-52.0); HEMOGLOBIN 14.7 g/dl (14.0-18.0); IG # 0.2 10*3/uL (0.0-0.1); LYMPH % 22.7 % (27.0-41.0); MEAN CELL VOLUME 89.1 fl (80.0-94.0); MEAN CORPUSCULAR HGB 30.7 pg (27.0-31.0); MEAN CORPUSCULAR HGB CONC 34.4 g/dl (33.0-37.0); MEAN PLATELET VOLUME 11.4 fl (9.6-12.3); MONO # 0.7 10*3/uL (0.1-1.0); MONO % 5.6 % (3.0-9.0); NEUT # 8.8 10*3/uL (2.3-7.9); NEUT % 67.4 % (47.0-73.0); PLATELET COUNT AUTOMATED 185 10*3/uL (130-400); RED BLOOD COUNT 4.79 10*6/uL (4.50-5.90); RED CELL DISTRI WIDTH 13.5 % (0-14.5); WHITE BLOOD COUNT 13.1 10*3/uL (4.8-10.8)
[2017-02-28 16:04] LABS: INTERNATIONAL NORM RATIO 1.1 (2.0-3.5)
[2017-02-28 16:14] LABS: ALBUMIN 3.3 gm/dl (3.1-4.5); ALKALINE PHOSPHATASE 147 U/L (45-117); BILIRUBIN, TOTAL 0.5 mg/dl (0.2-1.0); BUN 40 mg/dl (7-24); CARBON DIOXIDE 23 mmol/L (21-32); CHLORIDE 102 mmol/L (98-107); EST GLOM FILT AFRICAN AMERICAN 56 ml/min; GLUCOSE 201 mg/dL (65-99); POTASSIUM 4.5 mmol/L (3.5-5.1); SGOT/AST 24 IU/L (3-35); SGPT/ALT 39 U/L (12-78); SODIUM 140 mmol/L (136-145); TOTAL PROTEIN 6.8 gm/dL (6.4-8.2)
[2017-02-28 16:15] LABS: TROPONIN I < 0.015 ng/ml (<0.045)
[2017-02-28] MEDS ORDERED: NITROSTAT0.4 MG PO (16:27)
[2017-02-28] MEDS ORDERED: LIPITOR40 MG PO (16:27)
[2017-02-28] MEDS ORDERED: Synthroid,Lev125 MCG PO (16:28)
[2017-02-28] MEDS ORDERED: MAGNESIUM OXID400 MG PO (16:29)
[2017-02-28 16:59] VITALS: BP 162/90
[2017-02-28 17:30] VITALS: BP 148/86
[2017-02-28 20:00] VITALS: BP 150/87
[2017-03-01] VITALS: BP 119/77
[2017-03-01 00:31] LABS: CKMB 1.7 ng/ml (0.5-3.6); CPK 30 U/L (39-308)
[2017-03-01 00:34] LABS: TROPONIN I < 0.015 ng/ml (<0.045)
[2017-03-01 06:29] LABS: CKMB 1.1 ng/ml (0.5-3.6); CPK 30 U/L (39-308)
[2017-03-01 06:41] LABS: TROPONIN I < 0.015 ng/ml (<0.045)
[2017-03-01 08:00] VITALS: BP 129/72
[2017-03-01 12:00] VITALS: BP 147/84
[2017-03-01 16:00] VITALS: BP 96/62
[2017-03-01 19:40] VITALS: BP 102/61
[2017-03-01 20:00] VITALS: BP 121/62
[2017-03-02] VITALS: BP 100/51
[2017-03-02 08:00] VITALS: BP 136/74
[2017-03-02 12:00] VITALS: BP 114/68
== END 2017-03-02 14:20 | disposition home or self-care (01) | DRG 558 ==
LOC: ED 15:26 → EDHOLD 16:22 → 5E 16:22
PROVIDERS: Emergency Medicine; Internal Medicine
DX: M75.01 Adhesive capsulitis of right shoulder (principal); E44.0 Moderate protein-calorie malnutrition; E11.22 Type 2 diabetes mellitus with diabetic chronic kidney disease; E83.42 Hypomagnesemia; I50.32 Chronic diastolic (congestive) heart failure; I27.2 Other secondary pulmonary hypertension; I13.0 Hypertensive heart and chronic kidney disease with heart failure and stage 1 through stage 4 chronic kidney disease, or unspecified chronic kidney disease; E87.1 Hypo-osmolality and hyponatremia; I25.2 Old myocardial infarction; I25.10 Atherosclerotic heart disease of native coronary artery without angina pectoris; E11.65 Type 2 diabetes mellitus with hyperglycemia; F17.200 Nicotine dependence, unspecified, uncomplicated; N18.3 Chronic kidney disease, stage 3 (moderate); F41.9 Anxiety disorder, unspecified; F32.9 Major depressive disorder, single episode, unspecified; K21.9 Gastro-esophageal reflux disease without esophagitis; M10.9 Gout, unspecified; E87.5 Hyperkalemia; E03.9 Hypothyroidism, unspecified; M25.511 Pain in right shoulder; E66.01 Morbid (severe) obesity due to excess calories; Z95.0 Presence of cardiac pacemaker; Z79.4 Long term (current) use of insulin; Z86.73 Personal history of transient ischemic attack (TIA), and cerebral infarction without residual deficits; Z80.0 Family history of malignant neoplasm of digestive organs; Z79.899 Other long term (current) drug therapy; Z82.49 Family history of ischemic heart disease and other diseases of the circulatory system; Z83.3 Family history of diabetes mellitus; Z68.30 Body mass index [BMI] 30.0-30.9, adult; I87.2 Venous insufficiency (chronic) (peripheral); Z88.1 Allergy status to other antibiotic agents; N40.0 Benign prostatic hyperplasia without lower urinary tract symptoms; Z96.641 Presence of right artificial hip joint; Z90.49 Acquired absence of other specified parts of digestive tract; Z89.432 Acquired absence of left foot; F10.20 Alcohol dependence, uncomplicated; I07.1 Rheumatic tricuspid insufficiency; J43.9 Emphysema, unspecified

== ENCOUNTER → 2017-03-03 | Outpatient (CLI) | payer MEDICARE ==
[~2017-03-03] MED LIST changes: +NITROSTAT0.4 MG PO; +Synthroid,Lev125 MCG PO
== END | disposition home or self-care (01) ==
LOC: RESCLI 10:58
DX: M75.01 Adhesive capsulitis of right shoulder (principal); T36.4X5A Adverse effect of tetracyclines, initial encounter; N18.3 Chronic kidney disease, stage 3 (moderate); J44.9 Chronic obstructive pulmonary disease, unspecified; E11.9 Type 2 diabetes mellitus without complications; I10 Essential (primary) hypertension; Z90.49 Acquired absence of other specified parts of digestive tract; Z87.891 Personal history of nicotine dependence

== ENCOUNTER 2017-03-14 15:43 | Emergency (ER) | payer MEDICARE ==
[~2017-03-14] VITALS: Ht 182.8 cm; Wt 101.2 kg
[2017-03-14 15:50] VITALS: BP 152/78
[2017-03-14 16:24] LABS: BASO % 0.4 % (0.0-1.0); EOS # 0.2 10*3/uL (0.0-0.4); EOS % 1.7 % (1.0-4.0); HEMATOCRIT 36.2 % (42.0-52.0); HEMOGLOBIN 12.2 g/dl (14.0-18.0); IG # 0.1 10*3/uL (0.0-0.1); LYMPH % 17.6 % (27.0-41.0); MEAN CORPUSCULAR HGB 30.7 pg (27.0-31.0); MEAN CORPUSCULAR HGB CONC 33.7 g/dl (33.0-37.0); MEAN PLATELET VOLUME 10.8 fl (9.6-12.3); MONO # 0.6 10*3/uL (0.1-1.0); MONO % 5.7 % (3.0-9.0); NEUT # 8.3 10*3/uL (2.3-7.9); NEUT % 73.7 % (47.0-73.0); PLATELET COUNT AUTOMATED 136 10*3/uL (130-400); RED BLOOD COUNT 3.98 10*6/uL (4.50-5.90); RED CELL DISTRI WIDTH 13.6 % (0-14.5); WHITE BLOOD COUNT 11.2 10*3/uL (4.8-10.8)
[2017-03-14 16:41] LABS: BILIRUBIN, TOTAL 0.5 mg/dl (0.2-1.0); POTASSIUM 4.5 mmol/L (3.5-5.1); TOTAL PROTEIN 6.1 gm/dL (6.4-8.2)
[2017-03-14 17:32] LABS: BILIRUBIN NEGATIVE (NEGATIVE); BLOOD NEGATIVE (NEGATIVE); CLARITY CLEAR (CLEAR); COLOR YELLOW (YELLOW); GLUCOSE NEGATIVE (NEGATIVE); KETONE NEGATIVE (NEGATIVE); LEUKO ESTERASE NEGATIVE (NEGATIVE); NITRITE NEGATIVE (NEGATIVE); PH 5.5 (5.0-9.0); PROTEIN NEGATIVE (NEGATIVE); UROBILINOGEN 0.2 E.U./dl (0.2-1.0)
[2017-03-14 17:40] LABS: EPITHELIAL CELLS 0-2; HYALINE CAST 0-2; RBC 0-2 rbc/hpf (0-2); URINE REFLEX COMMENT NO (NO); WBC 0-2 wbc/hpf (0-5)
[2017-03-14] MEDS ORDERED: BENTYL10 MG PO (18:29)
[2017-03-15] MEDS ORDERED: LEVEMIR10 ML SC (17:54)
== END 2017-03-14 19:13 | disposition home or self-care (01) ==
LOC: ED 15:43
PROVIDERS: Emergency Medicine
DX: R19.7 Diarrhea, unspecified (principal); R10.32 Left lower quadrant pain; F41.9 Anxiety disorder, unspecified; N40.0 Benign prostatic hyperplasia without lower urinary tract symptoms; I25.10 Atherosclerotic heart disease of native coronary artery without angina pectoris; I12.9 Hypertensive chronic kidney disease with stage 1 through stage 4 chronic kidney disease, or unspecified chronic kidney disease; N18.3 Chronic kidney disease, stage 3 (moderate); J44.1 Chronic obstructive pulmonary disease with (acute) exacerbation; F32.9 Major depressive disorder, single episode, unspecified; K21.9 Gastro-esophageal reflux disease without esophagitis; M10.9 Gout, unspecified; E10.65 Type 1 diabetes mellitus with hyperglycemia; E78.5 Hyperlipidemia, unspecified; I25.2 Old myocardial infarction; E66.9 Obesity, unspecified; G40.909 Epilepsy, unspecified, not intractable, without status epilepticus; Z96.641 Presence of right artificial hip joint; Z68.34 Body mass index [BMI] 34.0-34.9, adult; Z86.73 Personal history of transient ischemic attack (TIA), and cerebral infarction without residual deficits; Z90.49 Acquired absence of other specified parts of digestive tract; Z98.890 Other specified postprocedural states; Z79.899 Other long term (current) drug therapy; Z88.1 Allergy status to other antibiotic agents

== ENCOUNTER 2017-03-15 15:13 | Inpatient (IN) | payer MEDICARE ==
[~2017-03-15] VITALS: Ht 182.9 cm; Wt 103.0 kg
--- NOTE | ~2017-03-15 | CON ---
[place], [place] REPORT OF CONSULTATION NAME: DEBORAH SANTACRUZ [facility] #: [id number] UNIT #: [id number] ROOM: 421 DOCTOR: MARK PENA MD BIRTHDATE: [birth year] DOS: 03/19/2017 The consultation was requested by Dr. Samanta Guzmán. REASON FOR CONSULTATION: Assess the patient nonresolving respiratory symptoms. HISTORY OF PRESENT ILLNESS: A 67-year-old white male who has been noted with past history of uncomplicated moderate persistent bronchial asthma and centrilobular emphysema as well as obstructive sleep apnea disorder, had been seen in my office last time in 10/2016. The patient presented to the Emergency Room. The patient is admitted under care of Dr. Samanta Guzmán on 03/15/2017. The patient reported symptoms of having increased chest tightness for this patient and some pain, which were described in the retrosternal area for this patient, nonradiating. Later, the patient was also noted symptoms of coughing with chest congestion with the patient having increased shortness of breath and continuous wheezing. The symptoms of the patient has been noted gradually worsen. The patient has been treated for these problems. The patient exacerbation of COPD. The patient states his symptoms of cough was noted persistent nonresolving and were quite severe. He has been trying very hard to expectorate sputum, unable to do that completely. The wheezing for the patient still described intermittently. Shortness of breath occurs with exertion, but not noted any distress. The patient denies symptoms of hemoptysis or any chest pain at the present time of assessment. REVIEW OF SYSTEMS: CONSTITUTIONAL: Fatigue and tiredness noted without symptoms of fever or chills. EYES: Denies any burning, redness or tenderness. EARS, NOSE, THROAT SYMPTOMS: No sore throat, hoarseness, otalgia, postnasal drainage or epistaxis. GASTROINTESTINAL: Denies dysphagia, nausea, vomiting, diarrhea, abdominal pain, hematemesis, melena or hematochezia. GENITOURINARY: Denies dysuria, suprapubic pain or hematuria. MUSCULOSKELETAL: The patient denies any symptoms of acute joint pain, redness or tenderness noted history of chronic degenerative arthritis. SKIN: Denies any lesions or rashes. CENTRAL NERVOUS SYSTEM: No dizziness, headache, diplopia, syncopal episodes or seizures. Remaining systems were reviewed with the patient, they were noted all negative. PAST MEDICAL HISTORY: History of: 1. Centrilobular emphysema. 2. Uncomplicated moderate persistent bronchial asthma. 3. Degenerative arthritis. 4. Type 2 diabetes mellitus. 5. Hypothyroidism. 6. Chronic moderate obesity. 7. History of nicotine dependence. [place], [place] REPORT OF CONSULTATION NAME: DEBORAH SANTACRUZ UNIT #: [id number] ROOM: 421 DOCTOR: SHAHANA MARCOS MD,MARK BIRTHDATE: [birth year] 8. History of congestive heart failure, systolic and diastolic dysfunction unknown at the present time. 9. History of essential hypertension. 10. History of restless leg syndrome. SOCIAL HISTORY: The patient was noted with history of tobacco use, half a pack of cigarettes per day since the age of [age] years old. There was no history of alcohol use, illicit drug use. 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 PAST SURGICAL HISTORY: 1. Reported as history of right hip arthroplasty. 2. Right foot toe amputation. FAMILY HISTORY: The patient's father at the age of 8989 years old, complication of myocardial infarction. Mother at age 40 years with complications related to cancer of the stomach. MEDICATIONS: The current administered medication patient which were noted on this admission as use of levalbuterol, heparin for DVT prophylaxis, IV Solu-Medrol 80 mg b.i.d., Norvasc, calcium carbonate, Depakote, Cymbalta, potassium chloride, Mucinex, levothyroxine, Protonix, Levemir insulin, Lipitor, Risperdal, gabapentin, Ranexa, Zithromax, IV Rocephin, and other p.r.n. medications administration. DRUG ALLERGIES: NOTED ALLERGY TO THE: 1. ZOSYN. 2. VANCOMYCIN. PHYSICAL EXAMINATION: GENERAL: A 67-year-old male who has been currently noted to be resting comfortably in the bed, who has been noted nonproductive cough on assessment. Height of 6 feet, weight of 227 pounds, BMI 30.8. VITAL SIGNS: For the patient which was recorded as normal temperature, respiratory recorded 18-20, heart rate of 98-104, blood pressure 140/68-140/80. Pulse oxygen saturation recorded for the patient on room air 96% saturation. HEENT: Examination shows head was atraumatic. Eyes nonicterus. NECK: Supple and obese. CARDIOVASCULAR: S1, S2 is audible. LUNGS: The patient was noted without any crackles. However, the expiratory wheezing in this patient was noted. ABDOMEN: Soft, nontender, bowel sounds present. CENTRAL NERVOUS SYSTEM: The patient was noted without any gross focal deficit. EXTREMITIES: The patient was noted without any edema, clubbing, cyanosis. Visible skin shows no lesions or rashes. MUSCULOSKELETAL: No deformities. CENTRAL NERVOUS SYSTEM: Cranial nerves 2-12 intact for this patient, no focal deficit. [place], [place] REPORT OF CONSULTATION NAME: DEBORAH SANTACRUZ UNIT #: [id number] ROOM: [facility] DOCTOR: SHAHANA MARCOS MD,[facility] BIRTHDATE: [birth year] LABORATORY DATA: CBC of the patient on admission on 03/14/2017, WBC count 11.2, hemoglobin 12.2, hematocrit 36.2, platelet count of 136,000. The CMP of the patient on 03/14/2017, BUN 27, creatinine 1.56, glucose 257, total protein of 6.1, albumin 3.0. Urine drug screen for the patient, which were done on 03/15/2017, patient was noted positive for cocaine. Ethyl alcohol noted less than 3 on patient on 03/15/2017. The CBC of the patient on 03/19/2017, hemoglobin 9.9, hematocrit 30.3, platelet count was normal. WBC count was normal. CMP this morning, BUN 31, creatinine 1.29, glucose 241. Review of the radiology data for this patient was performed. Chest x-ray of the patient that was done for this patient on 03/14/2017 in the Emergency Room, just one view taken no acute abnormality. CT scan of the abdomen and pelvis of the patient, which was done in the Emergency Room, the patient as well was not noted with any acute abnormality for this patient in the lungs for this patient or in the abdomen. Diverticulosis was described. Chest x-ray repeated on 03/15/2017 shows the same findings with changes of COPD, hyperinflation, the left lower lobe atelectasis noted. On 03/16/2017 chest 1-view x-ray was taken. The culture of the sputum for this patient, which was done for this patient during this hospitalization of 03/18/2017 shows heavy growth of gram-negative bacilli for this patient, pending identification sensitivities. The Gram stain shows many white blood cells, few epithelial cells, many gram-negative bacilli. IMPRESSION: 1. The patient who has been currently admitted to the hospital was suspected with gram-negative pneumonia. The patient with persistent respiratory symptoms of coughing and wheezing with exacerbation of COPD and chronic nicotine dependence, not responding to the current treatment effectively. 2. The patient with history of chronic moderate obesity as well. 3. History of obstructive sleep apnea disorder. Other multiple comorbid conditions were noted as well. PLAN OF TREATMENT: The patient will be started on the intravenous antibiotic Azactam for this patient because of allergy to the IV Zosyn. Other possibility of gram-negative infection will be considered Stenotrophomonas maltophilia for this patient as well. Further treatment changes for the patient will be done based on progression of the illness. The bronchoscopy was planned for the patient to be done tomorrow morning with risk and benefits that will not only help to improve the mucus impaction of airways, which was suspected for this patient, but also improve his overall respiratory symptoms as well because no further response noted in the patient and the symptom plateaued. Continue current dose of Solu-Medrol. Discontinue the IV Rocephin use for this patient as well since the patient will be covered with gram-negative infection with the use of the Azactam. The patient has been also getting Zithromax that might not be needed at the present time and will be discontinued. Based on the culture result, antibiotics will be modified. I will be also ordering a chest x-ray, PA and lateral view for this patient as well for more clear assessment of the left lower lobe process in the patient for the acute pneumonia as well. The risks and benefits of bronchoscopy were discussed with the patient in detail and the patient agreed for the procedure. The patient may use his own CPAP from home for this patient for the continued chronic medical management of sleep apnea disorder as tolerated. I do not have any records of his previous sleep study in [place], [place] REPORT OF CONSULTATION NAME: DEBORAH SANTACRUZ [place] UNIT #: [id number] ROOM: [facility] DOCTOR: SHAHANA MARCOS MD,MARK BIRTHDATE: [birth year] the office. [facility] the [facility]. MARK HARKINS MD CM:CONSTR:REPORT OF CONSULTATION 1625 03/20/17 0625 interface
--- NOTE | ~2017-03-15 | PR ---
[place], [place] PROGRESS NOTE NAME: DEBORAH SANTACRUZ UNIT #: [id number] ROOM: 421 DOCTOR: MARK PENA MD BIRTHDATE: [birth year] DOS: 03/20/2017 PULMONARY PROGRESS NOTE SUBJECTIVE: The patient was noted n.p.o. past midnight for bronchoscopy. He has not been noted with any symptoms of chest pain or any abdominal pain. OBJECTIVE: VITAL SIGNS: For the patient, which were recorded show the temperature of the patient noted as normal, respiratory rate 20, heart rate 87, blood pressure of patient noted as 140/90. Pulse oxygen saturation of the patient recorded on 3 liters nasal cannula 93% saturation. HEENT: Examination showed chronic obesity. Head was atraumatic. NECK: Supple. CARDIOVASCULAR SYSTEM: S1, S2 audible. LUNGS: Noted persistent expiratory wheezing in the lungs bilaterally. ABDOMEN: Soft and nontender. EXTREMITIES: Shows no new acute changes. LABORATORY DATA: Culture of the sputum for the patient was noted as heavy growth of Morganella morganii, which were noted sensitive to ceftazidime resistant to fluoroquinolones. IMPRESSION: 1. Ongoing acute exacerbation of chronic obstructive pulmonary disease with acute tracheobronchitis which failed to respond to current treatment. 2. 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 3. Obstructive sleep apnea disorder. 4. Chronic obesity. PLAN OF TREATMENT: Changes in the antibiotics for the patient based on the sensitivity results will be recommended. Proceed with bronchoscopy as planned. No further changes in treatment otherwise will be needed. Other therapy, plan of management and care. Usual treatment. Supportive care. [place], [place] PROGRESS NOTE NAME: DEBORAH SANTACRUZ UNIT #: [id number] ROOM: 421 DOCTOR: MARK PENA MD BIRTHDATE: [birth year] MARK HARKINS MD CM:PNTRANS 1344 [id number] MARK MARCOS MD 03/21/17 0344 interface
--- NOTE | ~2017-03-15 | PR ---
[place], [place] PROGRESS NOTE NAME: DEBORAH SANTACRUZ [facility] #: [id number] UNIT #: [id number] ROOM: 421 DOCTOR: MEGHAN GREGORY MD BIRTHDATE: [birth year] DOS: 03/21/2017 SUBJECTIVE: The patient has been admitted to hospital with acute exacerbation of COPD with emphysema and acute tracheobronchitis. The patient had bronchoscopy done by Dr. Reynolds. He has been advised to continue taking the antibiotic by Dr. Reynolds. The patient has also been seen by Dr. Metz, clinic office coordinator, and he advised the patient has coronary heart disease, which is chest pain, noncardiac origin, so just control his hypertension and he did not advise anything acute to be done. The patient was supposed to be discharged today, but he is complaining of chest pain today and his heart is regular. Lungs are showing some wheezing, no crepitation. He is also complaining of some pain in the suprapubic region and is saying he is having constipation and having black colored stools, so we will hold his discharge and we will give him some Fleet enema and do his stools for occult blood. His troponin level on 2 different occasions is normal and his Gram stain is moderate white blood cells, many epithelial cells, few positive cocci, and fungi test is pending. OBJECTIVE: VITAL SIGNS: His blood pressure is 135/72, pulse is 86, respirations 20, temperature 97.6. MEGHAN GREGORY MD CM:PNTRANS [id number] MEGHAN GREGORY MD 03/21/17 9309 interface
--- NOTE | ~2017-03-15 | EKG ---
[place], [place] ELECTROCARDIOGRAM REPORT NAME: DEBORAH SANTACRUZ UNIT #: [id number] ROOM: 421 DOCTOR: STEVEN ALLEN MD BIRTHDATE: [birth year] DOS: 03/15/2017 TIME: 15:30:03. RATE AND RHYTHM: Normal sinus rhythm at 91 beats per minute, MA interval 182 milliseconds, QRS duration 99 milliseconds, corrected QT interval is 451 milliseconds, QRS axis 23. IMPRESSION: Normal sinus rhythm. Low voltage in precordial leads, otherwise normal EKG. STEVEN ALLEN MD CM:EKGRPT:ELECTROCARDIOGRAM REPORT 1138 1218 STEVEN ALLEN MD
--- NOTE | ~2017-03-15 | PR ---
[place], [place] PROGRESS NOTE NAME: DEBORAH SANTACRUZ [facility] #: [id number] UNIT #: [id number] ROOM: 421 DOCTOR: PAM ALVARADO MD BIRTHDATE: [birth year] DOS: 03/18/2017 SUBJECTIVE: This patient is chronic complainer. He now complains of chest pain that is over the chest, particularly on the left side. It bothered him all last night and still some. His breathing is fine. He did not have any palpitations. He is eating well. OBJECTIVE: GENERAL: He is alert, oriented. Speech is difficult to comprehend. VITAL SIGNS: Pulse is 84 and regular, blood pressure 163/89, previous blood pressure had been fairly decent. NECK: Normal JVP. LUNGS: Few adventitious sounds. EXTREMITIES: No edema of the lower extremities. CHEST: Anterior chest is quite tender, which is what he is complaining about. IMPRESSION: This patient has noncardiac chest pain, most likely from chest wall and further workup is not recommended. This patient loves to be in the hospital. From cardiac standpoint, he can be discharged home. PAM ALVARADO MD CM:PNTRANS [id number] PAM ALVARADO MD 03/19/17 1541 interface
--- NOTE | ~2017-03-15 | PR ---
[place], [place] PROGRESS NOTE NAME: DEBORAH SANTACRUZ [facility] #: [id number] UNIT #: [id number] ROOM: 421 DOCTOR: PAM ALVARADO MD BIRTHDATE: [birth year] DOS: SUBJECTIVE: He has some cough and has not expectorating much sputum, chest pain is much better now. He did walk a little bit. He has not had any breathing difficulty at rest and his appetite is fine, in fact his appetite is very good. He has no specific complaints. OBJECTIVE: GENERAL: He looks alert, oriented, sitting eating some crackers. VITAL SIGNS: Pulse is regular at 80 beats per minute, blood pressure 171/76. Previous blood pressures had been . CARDIAC: Auscultation reveals no murmurs. NECK: JVP is normal. EXREMITIES: No edema in the lower extremities. LUNGS: Breath sounds are diminished with few lower zone adventitious sounds. IMPRESSION: 1. Coronary artery disease. Chest pain is noncardiac and has settled down. 2. Hypertension. Blood pressure is somewhat elevated and lisinopril 10 mg daily will be started. PAM ALVARADO MD CM:PNTRANS 42 [phone] PAM ALVARADO MD 03/20/171807 interface
--- NOTE | ~2017-03-15 | PROC NOTE ---
[place], [place] PROCEDURE NOTE NAME: [id number] UNIT #: [id number] ROOM: 421 DOCTOR: SHAHANA MARCOS MD,MARK BIRTHDATE: [birth year] DOS: 03/20/2017 PREOPERATIVE DIAGNOSES: The patient with persistent cough and wheezing, not responding to current treatment. POSTOPERATIVE DIAGNOSES: 1. Severe impaction of the mucus plugs, cleared from endobronchial tree bilaterally. 2. Evidence of ongoing tracheobronchitis. PROCEDURE DESCRIPTION: Informed consent obtained from the patient. The patient brought to the OR and placed in supine position. Conscious sedation administered by the Anesthesia Department. After achieving appropriate sedation, airway introduced into the mouth. Bronchoscope advanced into the airway into laryngeal area. Epiglottis and vocal cords were seen. The vocal cords were noted symmetrically moving with the phonation. The bronchoscope advanced to the vocal cord and the tracheal lumen. Tracheal lumen noted with copious amount of thick mucus secretions of the patient mixed with purulent secretion, which was suctioned out to the yessi level. Yessi noted sharp. Right upper, right middle, right lower, left upper, lingular, lower bronchus were noted with severe impaction of the thick mucus plugs with purulent secretion mixture. All secretions suctioned out with the help of normal saline wash, sent for cultures. Procedure was well tolerated by the patient without any difficulty. Postoperative findings will be discussed with the patient once the patient recovered the effects of acute sedation. Based on the current bronchoscopy, no change in treatment needs to be done. The patient currently be treated with intravenous antibiotics, corticosteroids, bronchodilators as previously ordered. MARK HARKINS MD CM:PROCNOTE:PROCEDURE NOTE [id number] MARK MARCOS MD
--- NOTE | ~2017-03-15 | PR ---
[place], [place] PROGRESS NOTE NAME: [facility]Z [facility] [id number] UNIT #: [id number] ROOM: 421 DOCTOR: SHAHANA MARCOS MD,MARK BIRTHDATE: [birth year] DOS: 03/23/2017 PULMONARY PROGRESS NOTE SUBJECTIVE: He had bronchoscopy done last Thursday with significant reduction and improvement in respiratory symptoms noted. The symptoms had not been completely resolved for the patient, but noted with reduction of the symptoms. OBJECTIVE: VITAL SIGNS: For the patient which has been recorded shows the temperature noted as normal, respiratory rate of 20, heart rate of 84, blood pressure 154/86-152/71. Pulse oxygen saturation of the patient recorded on room air as 98% saturation recorded. HEENT: Examination shows no new change. NECK: Supple. CARDIOVASCULAR: S1, S2 audible. LUNGS: The patient was noted without any crackles or wheezing. ABDOMEN: Soft, nontender. LABORATORY DATA: Culture of the bronchial washing of the patient was noted as evidence of heavy growth of Proteus vulgaris. IMPRESSION: The patient with resolving acute exacerbation of chronic obstructive pulmonary disease with acute tracheobronchitis with gram-negative infection noted with Proteus species. PLAN OF TREATMENT: Continue the patient's current plan of management at this time, no changes in the medical management for the patient otherwise will be needed. The patient has been currently planned for possible discharge home for the patient on oral antibiotics. The antibiotic will be ordered by the primary care physician for this patient as well. Outpatient followup for this patient if the patient desires. Other supportive plan of management and care. MARK HARKINS MD CM:PNTRANS 1049 MARK MARCOS MD 03/24/1799 interface
--- NOTE | ~2017-03-15 | PR ---
[place], [place] PROGRESS NOTE NAME: [facility]Z [id number] UNIT #: [id number] ROOM: 421 DOCTOR: NAIN THACKER MD BIRTHDATE: [birth year] DOS: 03/17/2017 SUBJECTIVE: The patient was seen by Dr. Metz yesterday. Appears to be stable. The patient is sleeping comfortably. Hemodynamically appears to be stable. Cardiac enzymes are all negative. PHYSICAL EXAMINATION: VITAL SIGNS: Blood pressure is 110/40. HEENT: Unremarkable. NECK: Supple, no JVD. LUNGS: Diminished breath sounds. HEART: Sounds are regular. ABDOMEN: Obese, soft, nontender. NEUROLOGICAL: Appears to be stable. LABORATORY DATA: Shows hemoglobin 9.8, hematocrit 29.7. Electrolytes are all normal. Creatinine is 2.0. Troponins have all been negative. IMPRESSION AND PLAN: The patient with chronic pain with multiple hospital admissions, accelerated hypertension, history of coronary artery disease, cardiomyopathy. Chest x-ray shows no evidence of any congestive heart failure. The patient has acute on chronic respiratory failure, chronic chest pain. The patient has been worked up significantly in the past, history of cocaine abuse, COPD, seizure disorder, hypocalcemia. Urine tox positive for cocaine. Beta blockers have been stopped. The patient explained the importance of quitting drugs explained to the patient, but he is sleeping. At this point, he does not understand. He has been admitted multiple times for the same reason. Detox protocol should be instituted and the patient probably needs to be sent for drug rehab. Continue the present medications and beta-blockers, lipid lowering agents and we will follow up. NAIN THACKER MD CM:PNTRANS 0713 [id number] NAIN THACKER MD 03/25/17 0703 interface
--- NOTE | ~2017-03-15 | PR ---
[place], [place] PROGRESS NOTE NAME: DEBORAH SANTACRUZ [facility] #: [id number] UNIT #: [id number] ROOM: 421 DOCTOR: MEGHAN GREGORY MD BIRTHDATE: [birth year] DOS: SUBJECTIVE: He is complaining of some pain in the lower abdomen. He has not had any bowel movement for many days and he is taking narcotic. I had ordered for him Fleet enema yesterday, somehow it was not given. I have requested nurses to give him Fleet enema today, if that does not work, he can have soapsuds enema. His urine culture and sensitivity show heavy growth of gram negative which is Proteus Vulgars. Started the patient on Bactrim DS twice daily. OBJECTIVE: VITAL SIGNS: His blood pressure is 140/78, pulse is 98, respirations 20, temperature 98. CHEST: Clear. HEART: Regular. ABDOMEN: Soft. PLAN: I have encouraged the patient to be active and ambulating and also drink lot of water, so that he can move his bowel and he will receive Fleet enema today. MEGHAN GREGORY MD CM:PNTRANS [phone] 30 MEGHAN GREGORY MD 03/23/17 1229 interface
--- NOTE | ~2017-03-15 | EKG ---
[place], [place] ELECTROCARDIOGRAM REPORT NAME: DEBORAH SANTACRUZ UNIT #: [id number] ROOM: 421 DOCTOR: KELVIN GARCÍA MD BIRTHDATE: [birth year] DOS: 03/16/2017 TIME: 21:25 p.m. Sinus rhythm at rate of 99. Probable old inferior wall myocardial infarction. Poor precordial R-wave progression with possible old anterior myocardial infarction. Nonspecific T-wave flattening, abnormal electrocardiogram. KELVIN GARCÍA MD CM:EKGRPT:ELECTROCARDIOGRAM REPORT [id number] 0257 KELVIN GARCÍA MD
--- NOTE | ~2017-03-15 | CON ---
[place], [place] REPORT OF CONSULTATION NAME: DEBORAH SANTACRUZ [facility] #: [id number] UNIT #: [id number] ROOM: 421 DOCTOR: NILA BUSTAMANTEMADHAVI BIRTHDATE: [birth year] DOS: 03/20/2017 PODIATRY CONSULTATION SUBJECTIVE: The patient is seen complaining of right foot pain on the ball of the foot. He states it has been going on for 2-3 weeks. He denies any trauma or injury. He was admitted to the hospital because of chest pain. He states he only gets pain in the foot when he bears weight and again denies any trauma. PAST MEDICAL HISTORY: Positive for hypertension, chronic angina, chronic anxiety, ataxia, BPH, CAD, chest pain, chronic diastolic heart failure, chronic renal insufficiency, chronic kidney disease, COPD, depression, diabetes, history of right foot abscess with removal of bone, gastroesophageal reflux, gout, history of CVA, diabetes. ALLERGIES: TO TAZOBACTAM, PIPERACILLIN, AND VANCOMYCIN. CURRENT MEDICATIONS: Include Diprivan, DuoNeb, Zestril, Norvasc, albuterol, aztreonam, levalbuterol, heparin, Solu-Medrol, Micro-K, Cymbalta, Depakote, Norvasc, Humalog, Protonix, Synthroid, Ranexa, Levemir, Neurontin, Lipitor, Garnett. OBJECTIVE: Upon lower extremity physical examination, DP pedal pulses are palpable. Skin temperature is warm. CFT is less than 2 seconds to all digits. Sensation is diminished bilateral feet consistent with neuropathy. The right foot has evidence of previous surgery with bone removal at the fourth metatarsal. There is prominent second and third metatarsal heads noted to palpation with no real tenderness to palpation. There is no open wound. There is no erythema or increased temperature, no blisters or macerations, no signs of cellulitis or infection. His x-ray was negative other than post-surgical changes. ASSESSMENT: Diabetic neuropathy with right foot pain secondary to prominent metatarsal heads. PLAN: Consult is performed. I discussed with him there is no wound, no infection. He has osseous changes secondary to his previous surgery. Continue with diabetic shoes and inserts. No further treatment is needed for the right foot. He could follow up as an outpatient. Thank you for the opportunity to take part in the care of this patient. [place], [place] REPORT OF CONSULTATION NAME: DEBORAH SANTACRUZ UNIT #: [id number] ROOM: 421 DOCTOR: MADHAVI DOTSON DPM BIRTHDATE: [birth year] MADHAVI DOTSON DPM CM:CONSTR:REPORT OF CONSULTATION 1222 03/21/17 0257 interface
--- NOTE | ~2017-03-15 | CON ---
[place], [place] REPORT OF CONSULTATION [id number] UNIT #: [id number] ROOM: 421 DOCTOR: PAM ALVARADO MD BIRTHDATE: [birth year] DOS: 03/16/2017 HISTORY OF PRESENT ILLNESS: This is his eleventh admission this year. It averages to about one admission every 12 days. He has had admission, he was in the hospital on 03/02/2017 with some abdominal pain and right-sided belly pain, which he has had for quite a long time and almost always he will be ruled out for acute myocardial infarction and acute coronary syndrome. He has COPD. He now tells me that he came here because he could not breathe and had this rope around his chest. This has been going on for a couple of days, he finally came to the Emergency Department from which he was admitted. No swelling of the legs or orthopnea or any palpitation, no loss of consciousness. PAST MEDICAL HISTORY: Cocaine addiction in the past and has not used it for about a year or so, COPD, chronic kidney disease, BPH, chronic anxiety, diabetes mellitus, gastric ulcers, GERD, hypothyroidism and coronary artery disease. He has had inferior wall myocardial infarction and stents were deployed in the right coronary artery, heart cath earlier this year had demonstrated patent stents and normal LV systolic function. He has morbid obesity as well. HOME MEDICATIONS: Include amlodipine, atorvastatin, Depakote, doxycycline, Cymbalta, finasteride, furosemide, gabapentin, hydrocodone, levothyroxine, mag oxide, metoprolol tartrate, Protonix, potassium chloride, Ranexa, risperidone, Carafate, Flomax, insulin. PHYSICAL EXAMINATION: GENERAL: The patient who is morbidly obese. He is alert, very obese. VITAL SIGNS: Pulse is 72 and regular. Blood pressure 118/70. NECK: JVP is difficult to assess. No bruits in the neck. There is no cardiomegaly. No murmurs were present. EXTREMITIES: He has easily appreciated pedal pulses and no edema in the lower extremities. RESPIRATORY: He has oxygen on with no tachypnea. Auscultation reveals mildly diminished breath sounds, but no adventitious sounds. ABDOMEN: He seems to wince when I was palpating his abdomen; however, when I was doing abdominojugular reflux, he did not seem to wince suggesting that he probably does not have any tenderness. Bowel sounds are fine. LABORATORY DATA: An ECG showed normal sinus rhythm with an old inferior wall MS. ECG over the last 2 years, have remained unchanged. Troponin I level is normal. Creatinine is somewhat increased. IMPRESSION: This patient has had recurrent chest pains and this is his twelfth admission this year with the same symptom. Now he seemed to be overplaying symptom of shortness of breath more than anything else and I do not feel there is any need for any further workup. He needs to be ambulated and discharged home. He may be better in a supervised facility. [place], [place] REPORT OF CONSULTATION NAME: DEBORAH SANTACRUZ UNIT #: [id number] ROOM: 421 DOCTOR: PAM ALVARADO MD BIRTHDATE: [birth year] I thank you for this consult. PAM ALVARADO MD CM:CONSTR:REPORT OF CONSULTATION 1211 03/17/17 1447 interface
--- NOTE | ~2017-03-15 | EKG ---
[place], [place] ELECTROCARDIOGRAM REPORT NAME: DEBORAH SANTACRUZ UNIT #: [id number] ROOM: 421 DOCTOR: STEVEN ALLEN MD BIRTHDATE: [birth year] DOS: 03/15/2017 TIME: 1530 RATE AND RHYTHM: Normal sinus rhythm at 91 beats per minute, ND interval 182 milliseconds, QRS duration 89 milliseconds, corrected QT interval is 366 milliseconds, QRS axis 26. IMPRESSION: 1. Sinus rhythm. 2. Low voltage in precordial leads. STEVEN ALLEN MD CM:EKGRPT:ELECTROCARDIOGRAM REPORT 0945 1159 STEVEN ALLEN MD
[~2017-03-15 15:13] MED LIST changes: +BENTYL10 MG PO
[2017-03-15 15:24] VITALS: BP 155/86
[2017-03-15 15:47] LABS: BASO % 0.4 % (0.0-1.0); EOS # 0.2 10*3/uL (0.0-0.4); EOS % 1.8 % (1.0-4.0); HEMATOCRIT 35.5 % (42.0-52.0); HEMOGLOBIN 11.8 g/dl (14.0-18.0); IG # 0.1 10*3/uL (0.0-0.1); LYMPH # 2.7 10*3/uL (1.3-4.4); LYMPH % 27.3 % (27.0-41.0); MEAN CELL VOLUME 92.7 fl (80.0-94.0); MEAN CORPUSCULAR HGB 30.8 pg (27.0-31.0); MEAN CORPUSCULAR HGB CONC 33.2 g/dl (33.0-37.0); MEAN PLATELET VOLUME 11.4 fl (9.6-12.3); MONO # 0.7 10*3/uL (0.1-1.0); MONO % 6.6 % (3.0-9.0); NEUT # 6.3 10*3/uL (2.3-7.9); NEUT % 63.3 % (47.0-73.0); PLATELET COUNT AUTOMATED 143 10*3/uL (130-400); RED BLOOD COUNT 3.83 10*6/uL (4.50-5.90)
[2017-03-15 15:56] LABS: INTERNATIONAL NORM RATIO 1.1 (2.0-3.5); PROTHROMBIN TIME 11.9 SECONDS (9.0-12.4)
[2017-03-15 16:04] LABS: ALBUMIN 3.1 gm/dl (3.1-4.5); ALKALINE PHOSPHATASE 129 U/L (45-117); BILIRUBIN, TOTAL 0.3 mg/dl (0.2-1.0); BUN 29 mg/dl (7-24); CARBON DIOXIDE 21 mmol/L (21-32); CHLORIDE 106 mmol/L (98-107); EST GLOM FILT AFRICAN AMERICAN 57 ml/min; GLUCOSE 96 mg/dL (65-99); POTASSIUM 4.1 mmol/L (3.5-5.1); SGOT/AST 16 IU/L (3-35); SGPT/ALT 33 U/L (12-78); SODIUM 142 mmol/L (136-145); TOTAL PROTEIN 6.4 gm/dL (6.4-8.2)
[2017-03-15 16:11] VITALS: BP 108/58
[2017-03-15 16:16] LABS: TROPONIN I < 0.015 ng/ml (<0.045)
[2017-03-15 16:31] VITALS: BP 105/62
[2017-03-15] MEDS ORDERED: LEVEMIR10 ML SC (17:54)
[2017-03-15 20:00] VITALS: BP 103/54
[2017-03-15 21:16] LABS: BILIRUBIN NEGATIVE (NEGATIVE); BLOOD NEGATIVE (NEGATIVE); CLARITY CLEAR (CLEAR); COLOR YELLOW (YELLOW); GLUCOSE NEGATIVE (NEGATIVE); KETONE NEGATIVE (NEGATIVE); LEUKO ESTERASE NEGATIVE (NEGATIVE); NITRITE NEGATIVE (NEGATIVE); PROTEIN NEGATIVE (NEGATIVE); UROBILINOGEN 0.2 E.U./dl (0.2-1.0)
[2017-03-15 21:27] LABS: URINE AMPHETAMINES < 1000 (1000ng/ml); URINE BARBITURATES < 200 (200ng/ml); URINE COCAINE > 300 (300ng/ml)
[2017-03-15 21:29] LABS: RBC 0-2 rbc/hpf (0-2); URINE REFLEX COMMENT NO (NO); WBC 0-2 wbc/hpf (0-5)
[2017-03-16] VITALS (9 sets, daily range): BP systolic 102–144; BP diastolic 68–76
[2017-03-16 00:35] LABS: CKMB 1.6 ng/ml (0.5-3.6); CPK 41 U/L (39-308)
[2017-03-16 00:37] LABS: TROPONIN I < 0.015 ng/ml (<0.045)
[2017-03-16 06:20] LABS: BASO % 0.1 % (0.0-1.0); EOS % 0.1 % (1.0-4.0); HEMATOCRIT 34.7 % (42.0-52.0); HEMOGLOBIN 11.6 g/dl (14.0-18.0); IG # 0.1 10*3/uL (0.0-0.1); LYMPH # 0.6 10*3/uL (1.3-4.4); LYMPH % 8.9 % (27.0-41.0); MEAN CORPUSCULAR HGB 30.8 pg (27.0-31.0); MEAN CORPUSCULAR HGB CONC 33.4 g/dl (33.0-37.0); MEAN PLATELET VOLUME 11.2 fl (9.6-12.3); MONO # 0.1 10*3/uL (0.1-1.0); MONO % 0.9 % (3.0-9.0); NEUT # 6.1 10*3/uL (2.3-7.9); NEUT % 88.8 % (47.0-73.0); PLATELET COUNT AUTOMATED 128 10*3/uL (130-400); RED BLOOD COUNT 3.77 10*6/uL (4.50-5.90); RED CELL DISTRI WIDTH 13.9 % (0-14.5); WHITE BLOOD COUNT 6.8 10*3/uL (4.8-10.8)
[2017-03-16 06:32] LABS: CKMB 1.3 ng/ml (0.5-3.6); CPK 38 U/L (39-308)
[2017-03-16 06:33] LABS: TROPONIN I < 0.015 ng/ml (<0.045)
[2017-03-16 06:52] LABS: ALBUMIN 2.9 gm/dl (3.1-4.5); BILIRUBIN, TOTAL 0.3 mg/dl (0.2-1.0); FREE T4 1.1 ng/dl (0.76-1.46); PHOSPHOROUS 2.9 mg/dL (2.5-4.9); POTASSIUM 4.3 mmol/L (3.5-5.1); TOTAL PROTEIN 6.1 gm/dL (6.4-8.2)
[2017-03-16 06:55] LABS: INTERNATIONAL NORM RATIO 1.2 (2.0-3.5); PROTHROMBIN TIME 12.3 SECONDS (9.0-12.4)
[2017-03-16 06:56] LABS: THYROID STIM HORMONE (HS) 0.425 uIU/ml (0.358-4.75)
[2017-03-16 06:58] LABS: MAGNESIUM 0.9 mg/dL (1.5-2.1)
[2017-03-16 07:01] LABS: FOLIC ACID 14.32 ng/mL (>5.38); VITAMIN D, 25-HYDROXY 30.7 ng/mL (30-100)
[2017-03-16 12:26] LABS: CKMB 1.7 ng/ml (0.5-3.6); CPK 36 U/L (39-308); TROPONIN I < 0.015 ng/ml (<0.045)
[2017-03-17] VITALS: BP 110/47
[2017-03-17 05:49] LABS: ALBUMIN 2.7 gm/dl (3.1-4.5); ALKALINE PHOSPHATASE 92 U/L (45-117); BILIRUBIN, TOTAL 0.1 mg/dl (0.2-1.0); CARBON DIOXIDE 21 mmol/L (21-32); CHLORIDE 110 mmol/L (98-107); EST GLOM FILT AFRICAN AMERICAN 40 ml/min; GLUCOSE 329 mg/dL (65-99); POTASSIUM 4.7 mmol/L (3.5-5.1); SGOT/AST 7 IU/L (3-35); SGPT/ALT 22 U/L (12-78); SODIUM 140 mmol/L (136-145); TOTAL PROTEIN 5.5 gm/dL (6.4-8.2)
[2017-03-17 05:50] LABS: BUN 46 mg/dl (7-24); TROPONIN I < 0.015 ng/ml (<0.045)
[2017-03-17 06:05] LABS: HEMATOCRIT 29.7 % (42.0-52.0); HEMOGLOBIN 9.8 g/dl (14.0-18.0); MEAN CELL VOLUME 94.3 fl (80.0-94.0); MEAN CORPUSCULAR HGB 31.1 pg (27.0-31.0); PLATELET COUNT AUTOMATED 122 10*3/uL (130-400); RED BLOOD COUNT 3.15 10*6/uL (4.50-5.90); WHITE BLOOD COUNT 9.9 10*3/uL (4.8-10.8)
[2017-03-17 06:52] LABS: LYMPHOCYTE # 0.2 10*3/uL (1.3-4.4); MONOCYTE # 0.1 10*3/uL (0.1-1.0); NEUTROPHIL # 9.6 10*3/uL (2.3-7.9); NEUTROPHILS 97 % (47-73); TOTAL CELLS COUNTED 100 #CELLS
[2017-03-17 06:53] LABS: PLATELET SUFFICIENCY LOW (NORMAL); POLYCHROMASIA SLIGHT
[2017-03-17 08:00] VITALS: BP 140/72
[2017-03-17 12:00] VITALS: BP 122/76
[2017-03-17 16:00] VITALS: BP 122/67
[2017-03-17 20:00] VITALS: BP 142/67
[2017-03-18] VITALS: BP 163/76
[2017-03-18 07:41] LABS: HEMATOCRIT 30.8 % (42.0-52.0); MEAN CELL VOLUME 94.8 fl (80.0-94.0); MEAN CORPUSCULAR HGB 30.8 pg (27.0-31.0); MEAN CORPUSCULAR HGB CONC 32.5 g/dl (33.0-37.0); MEAN PLATELET VOLUME 11.4 fl (9.6-12.3); PLATELET COUNT AUTOMATED 126 10*3/uL (130-400); RED BLOOD COUNT 3.25 10*6/uL (4.50-5.90); RED CELL DISTRI WIDTH 14.5 % (0-14.5); WHITE BLOOD COUNT 8.6 10*3/uL (4.8-10.8)
[2017-03-18 08:00] VITALS: BP 138/80
[2017-03-18 08:06] LABS: LYMPHOCYTE # 0.3 10*3/uL (1.3-4.4); MONOCYTE # 0.1 10*3/uL (0.1-1.0); NEUTROPHIL # 8.3 10*3/uL (2.3-7.9); NEUTROPHILS 96 % (47-73); PLATELET SUFFICIENCY LOW (NORMAL); TOTAL CELLS COUNTED 100 #CELLS
[2017-03-18 08:11] LABS: ALBUMIN 2.8 gm/dl (3.1-4.5); BILIRUBIN, TOTAL 0.2 mg/dl (0.2-1.0); POTASSIUM 4.9 mmol/L (3.5-5.1); TOTAL PROTEIN 5.6 gm/dL (6.4-8.2)
[2017-03-18 12:00] VITALS: BP 156/82
[2017-03-18 16:00] VITALS: BP 163/89
[2017-03-18 20:00] VITALS: BP 134/52
[2017-03-19] VITALS (7 sets, daily range): BP systolic 140–184; BP diastolic 68–82
[2017-03-19 06:00] LABS: ALBUMIN 2.7 gm/dl (3.1-4.5); ALKALINE PHOSPHATASE 76 U/L (45-117); BILIRUBIN, TOTAL 0.1 mg/dl (0.2-1.0); BUN 31 mg/dl (7-24); CARBON DIOXIDE 25 mmol/L (21-32); CHLORIDE 113 mmol/L (98-107); EST GLOM FILT AFRICAN AMERICAN > 60 ml/min; GLUCOSE 241 mg/dL (65-99); POTASSIUM 4.8 mmol/L (3.5-5.1); SGOT/AST 8 IU/L (3-35); SGPT/ALT 29 U/L (12-78); SODIUM 145 mmol/L (136-145); TOTAL PROTEIN 5.5 gm/dL (6.4-8.2)
[2017-03-19 06:13] LABS: HEMATOCRIT 30.3 % (42.0-52.0); HEMOGLOBIN 9.9 g/dl (14.0-18.0); MEAN CORPUSCULAR HGB CONC 32.7 g/dl (33.0-37.0); MEAN PLATELET VOLUME 11.3 fl (9.6-12.3); PLATELET COUNT AUTOMATED 131 10*3/uL (130-400); RED BLOOD COUNT 3.19 10*6/uL (4.50-5.90); RED CELL DISTRI WIDTH 14.2 % (0-14.5); WHITE BLOOD COUNT 7.5 10*3/uL (4.8-10.8)
[2017-03-19 07:05] LABS: LYMPHOCYTE # 0.5 10*3/uL (1.3-4.4); METAMYELOCYTES 1 % (0-0); MONOCYTE # 0.5 10*3/uL (0.1-1.0); MYELOCYTES 1 % (0-0); NEUTROPHIL # 6.5 10*3/uL (2.3-7.9); NEUTROPHILS 86 % (47-73); PLATELET SUFFICIENCY NORMAL (NORMAL); TOTAL CELLS COUNTED 100 #CELLS
[2017-03-20] VITALS (9 sets, daily range): BP systolic 137–166; BP diastolic 68–93
[2017-03-20] MEDS ORDERED: BACTRIM DS 8001 TA1 PO (12:19)
[2017-03-21] VITALS: BP 135/72
[2017-03-21 08:00] VITALS: BP 149/78
[2017-03-21 12:00] VITALS: BP 157/84
[2017-03-21 15:08] LABS: ACID FAST SPEC PROCESSING Concentration (.)
[2017-03-21 16:00] VITALS: BP 137/71
[2017-03-21 20:00] VITALS: BP 153/73
[2017-03-22] VITALS: BP 166/74
[2017-03-22 08:00] VITALS: BP 140/78
[2017-03-22 12:00] VITALS: BP 150/84
[2017-03-22 16:00] VITALS: BP 161/75
[2017-03-22 20:00] VITALS: BP 159/78
[2017-03-23] VITALS: BP 152/71
[2017-03-23 08:00] VITALS: BP 154/86
[2017-03-23] MEDS ORDERED: PREDNISONE10 MG PO (09:47)
[2017-03-23] MEDS ORDERED: DOXYCYCLINE100 M3 PO (09:47)
[2017-03-23] MEDS ORDERED: BACTRIM DS 8001 TA1 PO (15:56)
== END 2017-03-23 11:45 | disposition home or self-care (01) | DRG 177 ==
LOC: ED 15:13 → EDHOLD 16:27 → 4E 16:27
PROVIDERS: Emergency Medicine; Hospitalist; Internal Medicine Critical Care Medicine
PROC: 0BC28ZZ Extirpation of Matter from Carina, Via Natural or Artificial Opening Endoscopic (ICD-10-PCS; principal; 2017-03-20)
PROC: 0BC88ZZ Extirpation of Matter from Left Upper Lobe Bronchus, Via Natural or Artificial Opening Endoscopic (ICD-10-PCS; principal; 2017-03-20)
PROC: 0BCB8ZZ Extirpation of Matter from Left Lower Lobe Bronchus, Via Natural or Artificial Opening Endoscopic (ICD-10-PCS; principal; 2017-03-20)
PROC: 0BC98ZZ Extirpation of Matter from Lingula Bronchus, Via Natural or Artificial Opening Endoscopic (ICD-10-PCS; principal; 2017-03-20)
PROC: 0BC58ZZ Extirpation of Matter from Right Middle Lobe Bronchus, Via Natural or Artificial Opening Endoscopic (ICD-10-PCS; principal; 2017-03-20)
PROC: 0BC68ZZ Extirpation of Matter from Right Lower Lobe Bronchus, Via Natural or Artificial Opening Endoscopic (ICD-10-PCS; principal; 2017-03-20)
PROC: 0BC48ZZ Extirpation of Matter from Right Upper Lobe Bronchus, Via Natural or Artificial Opening Endoscopic (ICD-10-PCS; principal; 2017-03-20)
DX: J15.6 Pneumonia due to other Gram-negative bacteria (principal); J96.20 Acute and chronic respiratory failure, unspecified whether with hypoxia or hypercapnia; E44.0 Moderate protein-calorie malnutrition; I13.0 Hypertensive heart and chronic kidney disease with heart failure and stage 1 through stage 4 chronic kidney disease, or unspecified chronic kidney disease; I50.32 Chronic diastolic (congestive) heart failure; J44.0 Chronic obstructive pulmonary disease with (acute) lower respiratory infection; J44.1 Chronic obstructive pulmonary disease with (acute) exacerbation; J98.11 Atelectasis; D64.9 Anemia, unspecified; F14.10 Cocaine abuse, uncomplicated; K21.9 Gastro-esophageal reflux disease without esophagitis; N40.0 Benign prostatic hyperplasia without lower urinary tract symptoms; E66.9 Obesity, unspecified; F41.9 Anxiety disorder, unspecified; I25.118 Atherosclerotic heart disease of native coronary artery with other forms of angina pectoris; G40.909 Epilepsy, unspecified, not intractable, without status epilepticus; N18.3 Chronic kidney disease, stage 3 (moderate); E11.22 Type 2 diabetes mellitus with diabetic chronic kidney disease; E03.9 Hypothyroidism, unspecified; G47.33 Obstructive sleep apnea (adult) (pediatric); E11.40 Type 2 diabetes mellitus with diabetic neuropathy, unspecified; F17.200 Nicotine dependence, unspecified, uncomplicated; F32.9 Major depressive disorder, single episode, unspecified; E78.2 Mixed hyperlipidemia; Z96.641 Presence of right artificial hip joint; E83.51 Hypocalcemia; M10.9 Gout, unspecified; E83.42 Hypomagnesemia; M79.672 Pain in left foot; J20.9 Acute bronchitis, unspecified; Z68.29 Body mass index [BMI] 29.0-29.9, adult; Z86.73 Personal history of transient ischemic attack (TIA), and cerebral infarction without residual deficits; I25.2 Old myocardial infarction; Z90.49 Acquired absence of other specified parts of digestive tract; Z95.5 Presence of coronary angioplasty implant and graft; Z80.0 Family history of malignant neoplasm of digestive organs; Z82.49 Family history of ischemic heart disease and other diseases of the circulatory system; Z89.431 Acquired absence of right foot; Z88.1 Allergy status to other antibiotic agents; Z79.51 Long term (current) use of inhaled steroids; Z79.4 Long term (current) use of insulin; Z79.899 Other long term (current) drug therapy

== ENCOUNTER 2017-03-28 22:37 | Emergency (ER) | payer MEDICARE ==
[~2017-03-28 22:37] MED LIST changes: +DOXYCYCLINE100 M3 PO
[2017-03-28 22:43] VITALS: BP 158/96
[2017-03-29] MEDS ORDERED: NORCO 5-325 TA1 EACH PO (02:17)
[2017-03-30] MEDS ORDERED: 'XANAX0.5 MG PO (14:51)
[2017-03-30] MEDS ORDERED: DULE1ARO INH (15:21)
== END 2017-03-29 02:43 | disposition home or self-care (01) ==
LOC: ED 22:37
DX: G89.29 Other chronic pain (principal); M54.5 Low back pain; M50.320 Other cervical disc degeneration, mid-cervical region, unspecified level; F41.9 Anxiety disorder, unspecified; N40.0 Benign prostatic hyperplasia without lower urinary tract symptoms; I25.10 Atherosclerotic heart disease of native coronary artery without angina pectoris; F14.10 Cocaine abuse, uncomplicated; F32.9 Major depressive disorder, single episode, unspecified; K21.9 Gastro-esophageal reflux disease without esophagitis; E11.65 Type 2 diabetes mellitus with hyperglycemia; M10.9 Gout, unspecified; E03.9 Hypothyroidism, unspecified; E78.5 Hyperlipidemia, unspecified; E66.9 Obesity, unspecified; G40.909 Epilepsy, unspecified, not intractable, without status epilepticus; I12.9 Hypertensive chronic kidney disease with stage 1 through stage 4 chronic kidney disease, or unspecified chronic kidney disease; N18.3 Chronic kidney disease, stage 3 (moderate); Z68.34 Body mass index [BMI] 34.0-34.9, adult; Z98.890 Other specified postprocedural states; Z86.73 Personal history of transient ischemic attack (TIA), and cerebral infarction without residual deficits; Z96.641 Presence of right artificial hip joint; Z87.891 Personal history of nicotine dependence; Z79.899 Other long term (current) drug therapy; Z88.1 Allergy status to other antibiotic agents; Z88.8 Allergy status to other drugs, medicaments and biological substances; W19.XXXA Unspecified fall, initial encounter; Y93.89 Activity, other specified; Y92.009 Unspecified place in unspecified non-institutional (private) residence as the place of occurrence of the external cause; Y99.9 Unspecified external cause status

== ENCOUNTER 2017-03-30 10:52 | Inpatient (IN) | payer MEDICARE ==
[~2017-03-30] VITALS: Ht 182.9 cm; Wt 109.3 kg
[2017-03-30] VITALS (7 sets, daily range): BP systolic 121–159; BP diastolic 67–89
--- NOTE | ~2017-03-30 | EKG ---
[place], [place] ELECTROCARDIOGRAM REPORT NAME: DEBORAH SANTACRUZ UNIT #: [id number] ROOM: 402 DOCTOR: PAM ALVARADO MD BIRTHDATE: [birth year] DOS: 03/30/2017 TIME: 1139 hours. Normal sinus rhythm at 79 beats per minute. Poor R-wave progression is present. An old inferior wall [place]. An abnormal ECG. No previous tracing is available for comparison. PAM ALVARADO MD CM:EKGRPT:ELECTROCARDIOGRAM REPORT 1127 1230 PAM ALVARADO MD
[2017-03-30 11:46] LABS: BASO % 0.2 % (0.0-1.0); EOS # 0.1 10*3/uL (0.0-0.4); HEMATOCRIT 31.5 % (42.0-52.0); HEMOGLOBIN 10.4 g/dl (14.0-18.0); IG # 0.2 10*3/uL (0.0-0.1); LYMPH # 1.6 10*3/uL (1.3-4.4); LYMPH % 27.5 % (27.0-41.0); MEAN CELL VOLUME 94.3 fl (80.0-94.0); MEAN CORPUSCULAR HGB 31.1 pg (27.0-31.0); MEAN PLATELET VOLUME 10.7 fl (9.6-12.3); MONO # 0.4 10*3/uL (0.1-1.0); MONO % 6.8 % (3.0-9.0); NEUT # 3.6 10*3/uL (2.3-7.9); NEUT % 61.6 % (47.0-73.0); PLATELET COUNT AUTOMATED 138 10*3/uL (130-400); RED BLOOD COUNT 3.34 10*6/uL (4.50-5.90); RED CELL DISTRI WIDTH 13.7 % (0-14.5); WHITE BLOOD COUNT 5.9 10*3/uL (4.8-10.8)
[2017-03-30 11:54] LABS: INTERNATIONAL NORM RATIO 1.1 (2.0-3.5); PROTHROMBIN TIME 11.5 SECONDS (9.0-12.4)
[2017-03-30 12:01] LABS: ALBUMIN 2.8 gm/dl (3.1-4.5); ALKALINE PHOSPHATASE 91 U/L (45-117); BILIRUBIN, TOTAL 0.2 mg/dl (0.2-1.0); BUN 22 mg/dl (7-24); C-REACTIVE PROTEIN 1.34 MG/DL (0-0.3); CARBON DIOXIDE 22 mmol/L (21-32); CHLORIDE 111 mmol/L (98-107); CKMB 1.7 ng/ml (0.5-3.6); CPK 83 U/L (39-308); EST GLOM FILT AFRICAN AMERICAN > 60 ml/min; GLUCOSE 220 mg/dL (65-99); MAGNESIUM 1.1 mg/dL (1.5-2.1); POTASSIUM 4.7 mmol/L (3.5-5.1); SGOT/AST 14 IU/L (3-35); SGPT/ALT 47 U/L (12-78); SODIUM 143 mmol/L (136-145); TOTAL PROTEIN 5.7 gm/dL (6.4-8.2); TROPONIN I < 0.015 ng/ml (<0.045)
[2017-03-30 13:43] LABS: LA>2 REFLEX 2 HR DRAW NOW
[2017-03-30] MEDS ORDERED: 'XANAX0.5 MG PO (14:51)
[2017-03-30] MEDS ORDERED: DULE1ARO INH (15:21)
[2017-03-30 15:55] LABS: URINE AMPHETAMINES < 1000 (1000ng/ml); URINE BARBITURATES < 200 (200ng/ml); URINE COCAINE < 300 (300ng/ml)
[2017-03-30 18:26] LABS: CKMB 1.9 ng/ml (0.5-3.6); CPK 87 U/L (39-308)
[2017-03-30 18:27] LABS: TROPONIN I < 0.015 ng/ml (<0.045)
[2017-03-31] VITALS: BP 154/74
[2017-03-31 00:20] LABS: CKMB 1.4 ng/ml (0.5-3.6); CPK 88 U/L (39-308); TROPONIN I < 0.015 ng/ml (<0.045)
[2017-03-31 06:27] LABS: BASO % 0.2 % (0.0-1.0); EOS # 0.1 10*3/uL (0.0-0.4); HEMATOCRIT 30.9 % (42.0-52.0); HEMOGLOBIN 10.1 g/dl (14.0-18.0); IG # 0.1 10*3/uL (0.0-0.1); LYMPH # 1.6 10*3/uL (1.3-4.4); LYMPH % 26.5 % (27.0-41.0); MEAN CELL VOLUME 94.5 fl (80.0-94.0); MEAN CORPUSCULAR HGB 30.9 pg (27.0-31.0); MEAN CORPUSCULAR HGB CONC 32.7 g/dl (33.0-37.0); MONO # 0.5 10*3/uL (0.1-1.0); MONO % 8.6 % (3.0-9.0); NEUT # 3.7 10*3/uL (2.3-7.9); NEUT % 62.7 % (47.0-73.0); PLATELET COUNT AUTOMATED 112 10*3/uL (130-400); RED BLOOD COUNT 3.27 10*6/uL (4.50-5.90); RED CELL DISTRI WIDTH 13.5 % (0-14.5); WHITE BLOOD COUNT 5.8 10*3/uL (4.8-10.8)
[2017-03-31 06:46] LABS: CKMB 0.9 ng/ml (0.5-3.6); CPK 79 U/L (39-308)
[2017-03-31 06:47] LABS: TROPONIN I < 0.015 ng/ml (<0.045)
[2017-03-31 07:03] LABS: BUN 25 mg/dl (7-24); CARBON DIOXIDE 29 mmol/L (21-32); CHLORIDE 108 mmol/L (98-107); EST GLOM FILT AFRICAN AMERICAN > 60 ml/min; FREE T4 1.09 ng/dl (0.76-1.46); GLUCOSE 125 mg/dL (65-99); MAGNESIUM 1.2 mg/dL (1.5-2.1); PHOSPHOROUS 3.9 mg/dL (2.5-4.9); POTASSIUM 4.2 mmol/L (3.5-5.1); SODIUM 141 mmol/L (136-145)
[2017-03-31 07:10] LABS: THYROID STIM HORMONE (HS) 0.273 uIU/ml (0.358-4.75)
[2017-03-31 08:00] VITALS: BP 133/75
[2017-03-31 08:14] LABS: HEMOGLOBIN A1c 9.8 % (4.8-5.6)
[2017-03-31 11:52] VITALS: BP 132/73
== END 2017-03-31 13:37 | disposition home or self-care (01) | DRG 391 ==
LOC: ED 10:52 → 4E 13:20 → EDHOLD 13:20 → 4E 13:41
PROVIDERS: Emergency Medicine; Student in an Organized Health Care Education/Training Program
DX: K21.9 Gastro-esophageal reflux disease without esophagitis (principal); I50.33 Acute on chronic diastolic (congestive) heart failure; E44.0 Moderate protein-calorie malnutrition; E87.2 Acidosis; E11.65 Type 2 diabetes mellitus with hyperglycemia; J44.9 Chronic obstructive pulmonary disease, unspecified; E83.42 Hypomagnesemia; N40.0 Benign prostatic hyperplasia without lower urinary tract symptoms; M10.9 Gout, unspecified; I25.10 Atherosclerotic heart disease of native coronary artery without angina pectoris; G40.909 Epilepsy, unspecified, not intractable, without status epilepticus; E78.2 Mixed hyperlipidemia; N18.3 Chronic kidney disease, stage 3 (moderate); Z96.641 Presence of right artificial hip joint; M85.88 Other specified disorders of bone density and structure, other site; E66.9 Obesity, unspecified; D64.9 Anemia, unspecified; F14.10 Cocaine abuse, uncomplicated; F41.9 Anxiety disorder, unspecified; Z86.73 Personal history of transient ischemic attack (TIA), and cerebral infarction without residual deficits; I25.2 Old myocardial infarction; Z95.5 Presence of coronary angioplasty implant and graft; Z90.49 Acquired absence of other specified parts of digestive tract; Z89.412 Acquired absence of left great toe; Z89.432 Acquired absence of left foot; Z80.0 Family history of malignant neoplasm of digestive organs; Z82.49 Family history of ischemic heart disease and other diseases of the circulatory system; Z88.1 Allergy status to other antibiotic agents; Z79.51 Long term (current) use of inhaled steroids; Z79.899 Other long term (current) drug therapy; Z79.4 Long term (current) use of insulin; Z79.1 Long term (current) use of non-steroidal anti-inflammatories (NSAID); Z68.31 Body mass index [BMI] 31.0-31.9, adult

== ENCOUNTER 2017-04-01 13:00 | Emergency (ER) | payer MEDICARE ==
[~2017-04-01] VITALS: Ht 182.8 cm; Wt 101.2 kg
--- NOTE | ~2017-04-01 | EKG ---
[place], [place] ELECTROCARDIOGRAM REPORT NAME: DEBORAH SANTACRUZ UNIT #: [id number] ROOM: DOCTOR: PAM ALVARADO MD BIRTHDATE: [birth year] DOS: 04/01/2017 TIME: 1325 hours. Sinus tachycardia at 110 beats per minute. An old inferior wall ND. Possible old anterior wall myocardial infarction. PAM ALVARADO MD CM:EKGRPT:ELECTROCARDIOGRAM REPORT 1127 1254 PAM ALVARADO MD
[~2017-04-01 13:00] MED LIST changes: +'XANAX0.5 MG PO; +DULE1ARO INH
[2017-04-01 13:30] LABS: BASO % 0.3 % (0.0-1.0); EOS # 0.1 10*3/uL (0.0-0.4); EOS % 1.5 % (1.0-4.0); HEMOGLOBIN 11.5 g/dl (14.0-18.0); IG # 0.1 10*3/uL (0.0-0.1); LYMPH # 1.8 10*3/uL (1.3-4.4); LYMPH % 29.2 % (27.0-41.0); MEAN CELL VOLUME 94.3 fl (80.0-94.0); MEAN CORPUSCULAR HGB CONC 32.9 g/dl (33.0-37.0); MEAN PLATELET VOLUME 11.2 fl (9.6-12.3); MONO # 0.5 10*3/uL (0.1-1.0); MONO % 7.4 % (3.0-9.0); NEUT # 3.7 10*3/uL (2.3-7.9); NEUT % 59.7 % (47.0-73.0); PLATELET COUNT AUTOMATED 131 10*3/uL (130-400); RED BLOOD COUNT 3.71 10*6/uL (4.50-5.90); RED CELL DISTRI WIDTH 13.4 % (0-14.5); WHITE BLOOD COUNT 6.2 10*3/uL (4.8-10.8)
[2017-04-01 13:37] LABS: INTERNATIONAL NORM RATIO 1.1 (2.0-3.5); PROTHROMBIN TIME 11.7 SECONDS (9.0-12.4)
[2017-04-01 13:44] LABS: ALKALINE PHOSPHATASE 98 U/L (45-117); BILIRUBIN, TOTAL 0.4 mg/dl (0.2-1.0); BUN 19 mg/dl (7-24); CARBON DIOXIDE 23 mmol/L (21-32); CHLORIDE 107 mmol/L (98-107); EST GLOM FILT AFRICAN AMERICAN > 60 ml/min; GLUCOSE 165 mg/dL (65-99); MAGNESIUM 1.5 mg/dL (1.5-2.1); POTASSIUM 5.1 mmol/L (3.5-5.1); SGOT/AST 26 IU/L (3-35); SGPT/ALT 43 U/L (12-78); SODIUM 141 mmol/L (136-145); TOTAL PROTEIN 6.4 gm/dL (6.4-8.2)
[2017-04-01 13:47] LABS: BILIRUBIN NEGATIVE (NEGATIVE); BLOOD NEGATIVE (NEGATIVE); CLARITY CLEAR (CLEAR); COLOR YELLOW (YELLOW); GLUCOSE NEGATIVE (NEGATIVE); KETONE NEGATIVE (NEGATIVE); LEUKO ESTERASE NEGATIVE (NEGATIVE); NITRITE NEGATIVE (NEGATIVE); PROTEIN NEGATIVE (NEGATIVE); UROBILINOGEN 0.2 E.U./dl (0.2-1.0)
[2017-04-01 13:48] LABS: TROPONIN I < 0.015 ng/ml (<0.045)
[2017-04-01 13:55] LABS: URINE AMPHETAMINES < 1000 (1000ng/ml); URINE BARBITURATES < 200 (200ng/ml); URINE COCAINE < 300 (300ng/ml)
[2017-04-01 14:04] LABS: URINE REFLEX COMMENT NO (NO)
[2017-04-01 16:43] VITALS: BP 144/76
[2017-04-02] MEDS ORDERED: CYCLOBENZAPRINE5 M3 PO (21:39)
[2017-04-02] MEDS ORDERED: MEDROL DOSEPAK4 MG PO (21:39)
== END 2017-04-01 16:46 | disposition home or self-care (01) ==
LOC: ED 13:00
PROVIDERS: Emergency Medicine; Physician Assistant
DX: I10 Essential (primary) hypertension (principal); F14.10 Cocaine abuse, uncomplicated; Z87.891 Personal history of nicotine dependence; Z98.890 Other specified postprocedural states; Z96.641 Presence of right artificial hip joint; Z79.899 Other long term (current) drug therapy; Z88.1 Allergy status to other antibiotic agents; Z88.8 Allergy status to other drugs, medicaments and biological substances; Z88.3 Allergy status to other anti-infective agents

== ENCOUNTER 2017-04-02 20:19 | Emergency (ER) | payer MEDICARE ==
[~2017-04-02] VITALS: Ht 182.8 cm; Wt 106.1 kg
[2017-04-02 20:32] VITALS: BP 147/66
[2017-04-02 21:19] LABS: BILIRUBIN NEGATIVE (NEGATIVE); BLOOD NEGATIVE (NEGATIVE); CLARITY CLEAR (CLEAR); COLOR YELLOW (YELLOW); GLUCOSE TRACE (NEGATIVE); KETONE NEGATIVE (NEGATIVE); LEUKO ESTERASE NEGATIVE (NEGATIVE); NITRITE NEGATIVE (NEGATIVE); PROTEIN NEGATIVE (NEGATIVE); SPECIFIC GRAVITY 1.015 (1.005-1.030)
[2017-04-02 21:26] LABS: EPITHELIAL CELLS 0-2
[2017-04-02] MEDS ORDERED: CYCLOBENZAPRINE5 M3 PO (21:39)
[2017-04-02] MEDS ORDERED: MEDROL DOSEPAK4 MG PO (21:39)
== END 2017-04-02 21:49 | disposition home or self-care (01) ==
LOC: ED 20:19
PROVIDERS: Emergency Medicine
DX: G89.29 Other chronic pain (principal); M54.5 Low back pain; M43.10 Spondylolisthesis, site unspecified; F41.9 Anxiety disorder, unspecified; I25.10 Atherosclerotic heart disease of native coronary artery without angina pectoris; J44.9 Chronic obstructive pulmonary disease, unspecified; F32.9 Major depressive disorder, single episode, unspecified; M19.90 Unspecified osteoarthritis, unspecified site; K21.9 Gastro-esophageal reflux disease without esophagitis; I50.32 Chronic diastolic (congestive) heart failure; F14.10 Cocaine abuse, uncomplicated; G40.909 Epilepsy, unspecified, not intractable, without status epilepticus; I25.2 Old myocardial infarction; E78.2 Mixed hyperlipidemia; M86.8X7 Other osteomyelitis, ankle and foot; E11.9 Type 2 diabetes mellitus without complications; Z86.73 Personal history of transient ischemic attack (TIA), and cerebral infarction without residual deficits; M10.9 Gout, unspecified; F17.200 Nicotine dependence, unspecified, uncomplicated; Z88.1 Allergy status to other antibiotic agents; Z79.899 Other long term (current) drug therapy

== ENCOUNTER 2017-04-04 09:45 | Emergency (ER) | payer MEDICARE ==
[~2017-04-04 09:45] MED LIST changes: +CYCLOBENZAPRINE5 M3 PO
[2017-04-04 10:15] LABS: HEMATOCRIT 30.2 % (42.0-52.0); IG # 0.2 10*3/uL (0.0-0.1); LYMPH # 0.9 10*3/uL (1.3-4.4); LYMPH % 9.7 % (27.0-41.0); MEAN CELL VOLUME 94.4 fl (80.0-94.0); MEAN CORPUSCULAR HGB 31.3 pg (27.0-31.0); MEAN CORPUSCULAR HGB CONC 33.1 g/dl (33.0-37.0); MEAN PLATELET VOLUME 10.8 fl (9.6-12.3); MONO # 0.5 10*3/uL (0.1-1.0); MONO % 5.8 % (3.0-9.0); NEUT # 7.3 10*3/uL (2.3-7.9); NEUT % 82.7 % (47.0-73.0); PLATELET COUNT AUTOMATED 147 10*3/uL (130-400); RED CELL DISTRI WIDTH 13.6 % (0-14.5); WHITE BLOOD COUNT 8.9 10*3/uL (4.8-10.8)
[2017-04-04 10:16] LABS: BILIRUBIN NEGATIVE (NEGATIVE); BLOOD NEGATIVE (NEGATIVE); CLARITY CLEAR (CLEAR); COLOR YELLOW (YELLOW); GLUCOSE 3+ (NEGATIVE); KETONE NEGATIVE (NEGATIVE); LEUKO ESTERASE NEGATIVE (NEGATIVE); NITRITE NEGATIVE (NEGATIVE); PH 5.5 (5.0-9.0); PROTEIN NEGATIVE (NEGATIVE); SPECIFIC GRAVITY <= 1.005 (1.005-1.030); UROBILINOGEN 0.2 E.U./dl (0.2-1.0)
[2017-04-04 10:29] LABS: BILIRUBIN, TOTAL 0.2 mg/dl (0.2-1.0); MAGNESIUM 1.2 mg/dL (1.5-2.1); POTASSIUM 4.7 mmol/L (3.5-5.1); TOTAL PROTEIN 6.3 gm/dL (6.4-8.2)
[2017-04-04 10:35] LABS: URINE REFLEX COMMENT NO (NO)
[2017-04-04 12:35] VITALS: BP 120/63
== END 2017-04-04 12:28 | disposition home or self-care (01) ==
LOC: ED 09:45
PROVIDERS: Emergency Medicine
DX: E11.65 Type 2 diabetes mellitus with hyperglycemia (principal); Z87.891 Personal history of nicotine dependence; Z90.49 Acquired absence of other specified parts of digestive tract; F41.9 Anxiety disorder, unspecified; N40.0 Benign prostatic hyperplasia without lower urinary tract symptoms; I25.10 Atherosclerotic heart disease of native coronary artery without angina pectoris; I12.9 Hypertensive chronic kidney disease with stage 1 through stage 4 chronic kidney disease, or unspecified chronic kidney disease; N18.3 Chronic kidney disease, stage 3 (moderate); J44.9 Chronic obstructive pulmonary disease, unspecified; F32.9 Major depressive disorder, single episode, unspecified; K21.9 Gastro-esophageal reflux disease without esophagitis; Z79.4 Long term (current) use of insulin; Z88.1 Allergy status to other antibiotic agents; Z79.899 Other long term (current) drug therapy; Z88.8 Allergy status to other drugs, medicaments and biological substances

== ENCOUNTER 2017-04-04 22:57 | Emergency (ER) | payer MEDICARE | END 2017-04-04 23:57 | disposition left against medical advice (07) | LOC: ED 22:57 | DX: F10.129 Alcohol abuse with intoxication, unspecified (principal); Z53.21 Procedure and treatment not carried out due to patient leaving prior to being seen by health care provider ==

== ENCOUNTER 2017-04-08 15:08 | Inpatient (IN) | payer MEDICARE ==
[~2017-04-08] VITALS: Ht 182.9 cm; Wt 106.3 kg
--- NOTE | ~2017-04-08 | EKG ---
[place], [place] ELECTROCARDIOGRAM REPORT NAME: DEBORAH SANTACRUZ UNIT #: [id number] ROOM: 422 DOCTOR: PAM ALVARADO MD BIRTHDATE: [birth year] DOS: 04/08/2017 TIME: 1528 hours. Sinus tachycardia at 100 beats per minute. Old inferior wall AL. An abnormal ECG. No previous tracing is available for comparison. PAM ALVARADO MD CM:EKGRPT:ELECTROCARDIOGRAM REPORT 1631 30 PAM ALVARADO MD
[2017-04-08 15:08] VITALS: BP 153/85
[2017-04-08 16:09] LABS: BASO % 0.3 % (0.0-1.0); EOS # 0.1 10*3/uL (0.0-0.4); EOS % 1.3 % (1.0-4.0); HEMATOCRIT 34.7 % (42.0-52.0); HEMOGLOBIN 11.8 g/dl (14.0-18.0); IG # 0.1 10*3/uL (0.0-0.1); LYMPH # 2.3 10*3/uL (1.3-4.4); LYMPH % 30.2 % (27.0-41.0); MEAN CELL VOLUME 93.3 fl (80.0-94.0); MEAN CORPUSCULAR HGB 31.7 pg (27.0-31.0); MEAN PLATELET VOLUME 10.8 fl (9.6-12.3); MONO # 0.4 10*3/uL (0.1-1.0); MONO % 4.9 % (3.0-9.0); NEUT # 4.7 10*3/uL (2.3-7.9); NEUT % 62.1 % (47.0-73.0); PLATELET COUNT AUTOMATED 178 10*3/uL (130-400); RED BLOOD COUNT 3.72 10*6/uL (4.50-5.90); RED CELL DISTRI WIDTH 13.7 % (0-14.5); WHITE BLOOD COUNT 7.5 10*3/uL (4.8-10.8)
[2017-04-08 16:17] LABS: INTERNATIONAL NORM RATIO 1.1 (2.0-3.5); PROTHROMBIN TIME 11.4 SECONDS (9.0-12.4)
[2017-04-08 16:27] LABS: ALKALINE PHOSPHATASE 100 U/L (45-117); BILIRUBIN, TOTAL 0.2 mg/dl (0.2-1.0); BUN 23 mg/dl (7-24); CARBON DIOXIDE 22 mmol/L (21-32); CHLORIDE 106 mmol/L (98-107); EST GLOM FILT AFRICAN AMERICAN 59 ml/min; GLUCOSE 253 mg/dL (65-99); POTASSIUM 3.7 mmol/L (3.5-5.1); SGOT/AST 12 IU/L (3-35); SGPT/ALT 26 U/L (12-78); SODIUM 142 mmol/L (136-145); TOTAL PROTEIN 6.2 gm/dL (6.4-8.2)
[2017-04-08 16:30] LABS: MAGNESIUM 0.9 mg/dL (1.5-2.1); TROPONIN I < 0.015 ng/ml (<0.045)
[2017-04-08 18:05] VITALS: BP 145/89
[2017-04-08 18:30] VITALS: BP 168/96
[2017-04-08 20:00] VITALS: BP 156/87
[2017-04-08 22:13] LABS: BILIRUBIN NEGATIVE (NEGATIVE); BLOOD NEGATIVE (NEGATIVE); CLARITY SL CLOUDY (CLEAR); COLOR YELLOW (YELLOW); GLUCOSE NEGATIVE (NEGATIVE); KETONE NEGATIVE (NEGATIVE); LEUKO ESTERASE NEGATIVE (NEGATIVE); NITRITE NEGATIVE (NEGATIVE); PROTEIN NEGATIVE (NEGATIVE); UROBILINOGEN 0.2 E.U./dl (0.2-1.0)
[2017-04-08 22:33] LABS: BACTERIA TRACE; EPITHELIAL CELLS 0-2; URINE REFLEX COMMENT NO (NO); WBC 0-2 wbc/hpf (0-5)
[2017-04-08 22:51] LABS: URINE AMPHETAMINES < 1000 (1000ng/ml); URINE COCAINE < 300 (300ng/ml)
[2017-04-08 22:56] LABS: URINE BARBITURATES < 200 (200ng/ml)
[2017-04-09] VITALS: BP 116/74
[2017-04-09 00:55] LABS: CKMB 1.3 ng/ml (0.5-3.6); CPK 27 U/L (39-308)
[2017-04-09 00:57] LABS: TROPONIN I < 0.015 ng/ml (<0.045)
[2017-04-09 06:30] LABS: BASO % 0.2 % (0.0-1.0); EOS # 0.1 10*3/uL (0.0-0.4); EOS % 2.1 % (1.0-4.0); HEMATOCRIT 32.2 % (42.0-52.0); HEMOGLOBIN 10.6 g/dl (14.0-18.0); IG # 0.1 10*3/uL (0.0-0.1); LYMPH # 0.6 10*3/uL (1.3-4.4); LYMPH % 14.3 % (27.0-41.0); MEAN CORPUSCULAR HGB 31.3 pg (27.0-31.0); MEAN CORPUSCULAR HGB CONC 32.9 g/dl (33.0-37.0); MEAN PLATELET VOLUME 11.1 fl (9.6-12.3); MONO # 0.2 10*3/uL (0.1-1.0); MONO % 4.5 % (3.0-9.0); NEUT # 3.2 10*3/uL (2.3-7.9); NEUT % 77.2 % (47.0-73.0); PLATELET COUNT AUTOMATED 136 10*3/uL (130-400); RED BLOOD COUNT 3.39 10*6/uL (4.50-5.90); RED CELL DISTRI WIDTH 13.7 % (0-14.5); WHITE BLOOD COUNT 4.2 10*3/uL (4.8-10.8)
[2017-04-09 06:46] LABS: CKMB 1.3 ng/ml (0.5-3.6); HEMOGLOBIN A1c 9.7 % (4.8-5.6)
[2017-04-09 06:47] LABS: CPK 35 U/L (39-308); TROPONIN I < 0.015 ng/ml (<0.045)
[2017-04-09 07:08] LABS: BUN 20 mg/dl (7-24); CARBON DIOXIDE 25 mmol/L (21-32); CHLORIDE 110 mmol/L (98-107); CHOLESTEROL 183 mg/dL (<200); EST GLOM FILT AFRICAN AMERICAN > 60 ml/min; FREE T4 0.93 ng/dl (0.76-1.46); GLUCOSE 116 mg/dL (65-99); HDL CHOLESTEROL 48 mg/dl (40-60); MAGNESIUM 1.9 mg/dL (1.5-2.1); PHOSPHOROUS 4.1 mg/dL (2.5-4.9); POTASSIUM 3.6 mmol/L (3.5-5.1); SODIUM 144 mmol/L (136-145); TRIGLYCERIDES 467 mg/dl (<150)
[2017-04-09 07:16] LABS: FOLIC ACID 11.45 ng/mL (>5.38); VITAMIN D, 25-HYDROXY 13.4 ng/mL (30-100)
[2017-04-09 08:00] VITALS: BP 132/66
[2017-04-09 12:00] VITALS: BP 119/68
[2017-04-09 12:32] LABS: CKMB 0.8 ng/ml (0.5-3.6)
[2017-04-09 12:35] LABS: CPK 24 U/L (39-308); TROPONIN I < 0.015 ng/ml (<0.045)
== END 2017-04-09 14:10 | disposition home or self-care (01) | DRG 392 ==
LOC: ED 15:08 → 4E 16:27 → EDHOLD 16:27 → 4E 17:02
PROVIDERS: Emergency Medicine; Student in an Organized Health Care Education/Training Program
DX: K21.9 Gastro-esophageal reflux disease without esophagitis (principal); E44.0 Moderate protein-calorie malnutrition; R65.10 Systemic inflammatory response syndrome (SIRS) of non-infectious origin without acute organ dysfunction; I13.0 Hypertensive heart and chronic kidney disease with heart failure and stage 1 through stage 4 chronic kidney disease, or unspecified chronic kidney disease; N28.1 Cyst of kidney, acquired; I50.32 Chronic diastolic (congestive) heart failure; E11.22 Type 2 diabetes mellitus with diabetic chronic kidney disease; N40.0 Benign prostatic hyperplasia without lower urinary tract symptoms; I25.119 Atherosclerotic heart disease of native coronary artery with unspecified angina pectoris; K57.90 Diverticulosis of intestine, part unspecified, without perforation or abscess without bleeding; I25.2 Old myocardial infarction; R91.1 Solitary pulmonary nodule; F10.20 Alcohol dependence, uncomplicated; G40.909 Epilepsy, unspecified, not intractable, without status epilepticus; Z96.641 Presence of right artificial hip joint; N18.3 Chronic kidney disease, stage 3 (moderate); E78.2 Mixed hyperlipidemia; F32.9 Major depressive disorder, single episode, unspecified; D64.9 Anemia, unspecified; F14.10 Cocaine abuse, uncomplicated; M85.80 Other specified disorders of bone density and structure, unspecified site; E66.9 Obesity, unspecified; M10.9 Gout, unspecified; Z90.49 Acquired absence of other specified parts of digestive tract; Z95.5 Presence of coronary angioplasty implant and graft; Z89.412 Acquired absence of left great toe; Z89.432 Acquired absence of left foot; Z86.73 Personal history of transient ischemic attack (TIA), and cerebral infarction without residual deficits; Z87.891 Personal history of nicotine dependence; Z82.49 Family history of ischemic heart disease and other diseases of the circulatory system; Z80.0 Family history of malignant neoplasm of digestive organs; Z88.1 Allergy status to other antibiotic agents; Z79.51 Long term (current) use of inhaled steroids; Z79.899 Other long term (current) drug therapy; Z79.4 Long term (current) use of insulin; Z68.31 Body mass index [BMI] 31.0-31.9, adult

== ENCOUNTER 2017-04-22 14:26 | Emergency (ER) | payer MEDICARE ==
[~2017-04-22] VITALS: Ht 182.8 cm; Wt 106.1 kg
[2017-04-22 14:56] VITALS: BP 192/90
== END 2017-04-22 16:44 | disposition home or self-care (01) ==
LOC: ED 14:26
DX: L23.9 Allergic contact dermatitis, unspecified cause (principal); G89.29 Other chronic pain; M54.9 Dorsalgia, unspecified; F14.10 Cocaine abuse, uncomplicated; Z88.1 Allergy status to other antibiotic agents; Z79.899 Other long term (current) drug therapy

== ENCOUNTER 2017-04-25 11:46 | Emergency (ER) | payer MEDICARE ==
[~2017-04-25] VITALS: Ht 182.8 cm; Wt 106.1 kg
[2017-04-25 12:23] LABS: BASO % 0.3 % (0.0-1.0); EOS # 0.1 10*3/uL (0.0-0.4); EOS % 0.5 % (1.0-4.0); HEMATOCRIT 36.9 % (42.0-52.0); HEMOGLOBIN 12.5 g/dl (14.0-18.0); IG # 0.1 10*3/uL (0.0-0.1); LYMPH # 3.1 10*3/uL (1.3-4.4); LYMPH % 29.9 % (27.0-41.0); MEAN CELL VOLUME 94.6 fl (80.0-94.0); MEAN CORPUSCULAR HGB 32.1 pg (27.0-31.0); MEAN CORPUSCULAR HGB CONC 33.9 g/dl (33.0-37.0); MEAN PLATELET VOLUME 11.2 fl (9.6-12.3); MONO # 0.9 10*3/uL (0.1-1.0); MONO % 8.8 % (3.0-9.0); NEUT # 6.3 10*3/uL (2.3-7.9); NEUT % 59.8 % (47.0-73.0); PLATELET COUNT AUTOMATED 221 10*3/uL (130-400); RED CELL DISTRI WIDTH 13.8 % (0-14.5); WHITE BLOOD COUNT 10.5 10*3/uL (4.8-10.8)
[2017-04-25 12:33] LABS: INTERNATIONAL NORM RATIO 1.1 (2.0-3.5); PROTHROMBIN TIME 11.5 SECONDS (9.0-12.4)
[2017-04-25 12:41] LABS: ALBUMIN 3.6 gm/dl (3.1-4.5); ALKALINE PHOSPHATASE 107 U/L (45-117); BILIRUBIN, TOTAL 0.5 mg/dl (0.2-1.0); BUN 30 mg/dl (7-24); CARBON DIOXIDE 21 mmol/L (21-32); CHLORIDE 106 mmol/L (98-107); EST GLOM FILT AFRICAN AMERICAN 41 ml/min; GLUCOSE 255 mg/dL (65-99); MAGNESIUM 1.1 mg/dL (1.5-2.1); POTASSIUM 3.7 mmol/L (3.5-5.1); SGOT/AST 31 IU/L (3-35); SGPT/ALT 40 U/L (12-78); SODIUM 144 mmol/L (136-145)
[2017-04-25 12:42] LABS: TROPONIN I < 0.015 ng/ml (<0.045)
[2017-04-25 14:06] VITALS: BP 133/83
== END 2017-04-25 14:55 | disposition left against medical advice (07) ==
LOC: ED 11:46
PROVIDERS: Emergency Medicine
DX: I47.1 Supraventricular tachycardia (principal); I25.10 Atherosclerotic heart disease of native coronary artery without angina pectoris; J44.9 Chronic obstructive pulmonary disease, unspecified; K21.9 Gastro-esophageal reflux disease without esophagitis; E78.2 Mixed hyperlipidemia; E11.9 Type 2 diabetes mellitus without complications; F14.10 Cocaine abuse, uncomplicated; M86.8X7 Other osteomyelitis, ankle and foot; M1A.9XX0 Chronic gout, unspecified, without tophus (tophi); I50.32 Chronic diastolic (congestive) heart failure; G40.909 Epilepsy, unspecified, not intractable, without status epilepticus; N18.3 Chronic kidney disease, stage 3 (moderate); Z88.1 Allergy status to other antibiotic agents; Z86.73 Personal history of transient ischemic attack (TIA), and cerebral infarction without residual deficits; Z79.899 Other long term (current) drug therapy

== ENCOUNTER 2017-04-26 11:15 | Inpatient (IN) | payer MEDICARE ==
[~2017-04-26] VITALS: Ht 182.9 cm; Wt 104.3 kg
[2017-04-26] VITALS (8 sets, daily range): BP systolic 131–156; BP diastolic 67–109
--- NOTE | ~2017-04-26 | CON ---
[place], [place] REPORT OF CONSULTATION NAME: DEBORAH SANTACRUZ [facility] #: [id number] UNIT #: [id number] ROOM: 516 DOCTOR: EMILY THACKER MDHISH BIRTHDATE: [birth year] DOS: 04/28/2017 I am covering for Dr. Metz. CHIEF COMPLAINT: Consultation was obtained because of chest pain. HISTORY OF PRESENT ILLNESS: The patient has been admitted multiple times in the hospital, every one week he comes to different hospitals and gets admitted. This time, he complains of right-sided chest pain and right-sided back pain. No acute EKG changes, suggestion of myocardial ischemia. No left-sided precordial chest discomfort. He does have chronic pain issues. PAST MEDICAL HISTORY: Significant for cardiomyopathy, coronary artery disease, hypertension, hyperlipidemia, morbid obesity, COPD, chronic pain problem, pain medication seeking habits and diabetes. MEDICATIONS: He is on amlodipine, atorvastatin, Xanax, Lasix, gabapentin, insulin, levothyroxine, magnesium, pantoprazole, Ranexa, insulin, potassium, Flexeril and Ventolin. ALLERGIES: DOXYCYCLINE, TAZOBACTAM, PIPERACILLIN AND VANCOMYCIN. SOCIAL HISTORY: Drug abuse, alcohol abuse and tobacco abuse in the past. REVIEW OF SYSTEMS: CONSTITUTIONAL: No fever, no chills. HEENT: No visual disturbances or hearing problems. CARDIOVASCULAR: As described in HPI. GASTROINTESTINAL: No nausea, no vomiting. GENITOURINARY: No dysuria, hematuria. NEUROLOGIC: No syncope. PHYSICAL EXAMINATION: VITAL SIGNS: Blood pressure is 150/80. He is in sinus rhythm. NECK: Supple, no JVD. LUNGS: Clear. CARDIOVASCULAR: Heart sounds are regular. No murmur, no rub. ABDOMEN: Obese, soft, nontender. EXTREMITIES: Intact pulses. NEUROLOGIC: Stable. LABORATORY DATA: Today's is pending. Cardiac enzymes have all been negative. EKG, normal sinus rhythm, normal axis, normal intervals, QRS, QT and NE within normal limits. No acute ST-T abnormalities, small Q-waves in lead 3. Cardiac enzymes have all been negative. IMPRESSION: The patient with history of multiple admissions with pain medication seeking habits and chronic pain, history of coronary artery disease, cardiomyopathy, hypertension and hyperlipidemia. No new cardiac issues at this point. [place], [place] REPORT OF CONSULTATION NAME: DEBORAH SANTACRUZ UNIT #: [id number] ROOM: 516 DOCTOR: KEDAR HOOVER,NAIN BIRTHDATE: [birth year] RECOMMENDATIONS: Continue the present care. The patient is already on Ranexa, atorvastatin, amlodipine, and insulin. Continue the present care and we will follow up. NAIN THACKER MD CM:CONSTR:REPORT OF CONSULTATION 0728 04/28/17 0910 interface
--- NOTE | ~2017-04-26 | DS ---
[place], [place] DISCHARGE SUMMARY NAME: DEBORAH SANTACRUZ [facility] #: [id number] UNIT #: [id number] ROOM: 516 DOCTOR: STEVEN ALLEN MD BIRTHDATE: [birth year] DOS: 04/28/2017 REASON OF ADMISSION: Chest pain. HOSPITAL COURSE: This is a 67-year-old gentleman who has presented to the hospital multiple times for chest pains and at this time, he had complained of right-sided chest pain and also the arm pain. The patient had no acute EKG changes suggestive of myocardial ischemia. He had left-sided bradycardia precordial chest discomfort. On examination, the patient did have right shoulder pain and the same pain was elicited on movement of the right shoulder. The patient's cardiac enzymes have been negative. The patient at this point is complaining of chronic back pain and he gets his medications from Dr. Sevilla. He was asked to follow up with Dr. Sevilla as soon as possible within a week after the discharge. The patient's condition at the time of discharge is fair. FINAL DIAGNOSES AT THE TIME OF DISCHARGE: 1. Right-sided chest pain, arm pain, most likely secondary to right shoulder pain, it is a musculoskeletal pain. 2. Multiple admissions in the past because of chest pain. The patient has history of non-ST elevation myocardial infarction in the past and also history of supraventricular tachycardia in the past. 3. Substance abuse. The patient had cocaine in the urine, so he is not a candidate for beta blockers. 4. Gastroesophageal reflux disease. 5. Anxiety. 6. Benign prostatic hyperplasia and also chronic kidney disease stage 3. 7. Chronic obstructive pulmonary disease. 8. L4-L5 anterolisthesis. The patient has degenerative disk disease and has residual back pain from that. The patient has gout. 9. History of cerebrovascular accident in the past. 10. Insulin-dependent diabetes. 11. Hyperlipidemia. 12. Obesity. 13. History of osteomyelitis of the foot and history of osteopenia. 14. Seizure disorder. 15. History of temporal arteritis. PAST SURGICAL HISTORY: He has 9 stents placed in the heart, history of rotator cuff surgery, history of total right hip replacement, history of laparoscopic cholecystectomy and then status post amputation of the left greater toe, then status post incision and drainage of the fourth left toe in the past. DISCHARGE MEDICATIONS: Please cut and paste all the 19 medications from history and physical dictated yesterday. All the 19 medicines are same. DISCHARGE INSTRUCTIONS: 1. The patient will follow up with his primary care doctor, Dr. Sevilla. 2. The patient was demanding narcotics and I told him that he has to get those from his primary care doctor as only one doctor can prescribed them. [place], [place] DISCHARGE SUMMARY NAME: DEBORAH SANTACRUZ UNIT #: [id number] ROOM: 516 DOCTOR: STEVEN ALLEN MD BIRTHDATE: [birth year] CONDITION OF PATIENT ON DISCHARGE: Fair. STEVEN ALLEN MD CM:ANN-MARIE 1419 28 STEVEN ALLEN MD 04/28/171927 interface
--- NOTE | ~2017-04-26 | WRIGHTHP ---
[place], [place] PATIENT HISTORY AND PHYSICAL EXAM NAME: DEBORAH SANTACRUZ [facility] #: [id number] UNIT #: [id number] ROOM: 516 DOCTOR: STEVEN ALLEN MD BIRTHDATE: [birth year] DOS: 04/26/2017 CHIEF COMPLAINT: Chest pain. HISTORY OF PRESENT ILLNESS: A 67-year-old gentleman presented to the ED for evaluation of chest pain. The patient was having midsternal chest pain that radiated to his back. The patient was seen day before yesterday also in the ER where he came with the similar complaint. As per Dr. Kramer, the patient had heart rate of 180 at that time, but the patient left against medical advice. The patient stated to the ER doctor that the was breaking up his past. The patient denied any shortness of breath, dysuria, abdominal pain, chills, fever, arm pain, cough, diaphoresis or any other symptoms at that time. The patient was admitted to the floor and his cardiac enzymes have been negative so far. His chest x-ray done on showed no acute process. His last creatinine was 1.37 and sodium 146, potassium 3.6, chloride 111, carbon dioxide 22. Magnesium is 0.9. INR 1.1. His WBC count was 10.4, hemoglobin 12.4, hematocrit 37.1, platelets 215. I saw the patient in the morning today. He is having pain more in the right shoulder. When I moved the arm, the patient was having similar pain. He also complains of back pain which is chronic. PAST MEDICAL HISTORY: Significant for: 1. Coronary artery disease. He had NSTEMI in the past and history of SVT in the past. 2. GERD. 3. Anxiety. 4. Benign prostatic hyperplasia. 5. Chronic kidney disease stage III. 6. History of cocaine abuse. 7. COPD. 8. Degenerative disk disease. The patient had L4-L5 anterolisthesis. 9. The patient has history of gout. 10. History of cardiovascular accident in the past with residual deficit. 11. Insulin-dependent diabetes. 12. Hyperlipidemia. 13. Obesity. 14. Osteomyelitis of the foot and osteopenia in the past. 15. Seizure disorder. 16. Temporal arthritis. PAST SURGICAL HISTORY: 1. He has 9 stents placed in the heart. 2. History of rotator cuff surgery. 3. History of total right hip replacement. 4. History of laparoscopic cholecystectomy. 5. Status post amputation of the left great toe. 6. Status post incision and drainage of the fourth toe, left side in the past. [place], [place] PATIENT HISTORY AND PHYSICAL EXAM [facility]: [id number] UNIT #: [id number] ROOM: 516 DOCTOR: STEVEN ALLEN MD BIRTHDATE: [birth year] SOCIAL HISTORY: He admits to alcohol use, he consumes 6 packs of beer per week; former smoker; history of chronic alcoholism and chronic cocaine abuse. FAMILY HISTORY: Mother had stomach cancer, at age between 40-50; father at the age of 81, had AL. ALLERGIES: ZOSYN causes rash and trouble breathing; TAZOBACTAM causes rash and trouble breathing; VANCOMYCIN, rash and trouble breathing; DOXYCYCLINE causes hives. MEDICATIONS: At home: 1. Xanax 0.5 mg p.r.n. 2. ProAir HFA 2 puffs 4 times a day. 3. Amlodipine 5 mg daily. 4. Lipitor 40 mg daily. 5. Celexa 5 mg b.i.d. p.r.n. for muscle spasm. 6. Depakote 250 mg daily. 7. Cymbalta 60 mg daily. 8. Dulera 200/5 two puffs b.i.d. 9. Lasix 20 mg daily. 10. Gabapentin 300 b.i.d. 11. Jefferson 5/325 one tablet q. 6 hours p.r.n. for pain. 12. Levemir 25 units b.i.d. 13. Levothyroxine 125 mcg daily. 14. Magnesium oxide 400 mg b.i.d. 15. Nitroglycerin 0.4 mg p.o. daily p.r.n. 16. Protonix 40 mg b.i.d. 17. Potassium chloride 10 mEq daily. 18. Ranexa 500 b.i.d. 19. Risperidone 0.5 mg at bedtime. REVIEW OF SYSTEMS: As dictated above, he does have right shoulder pain, chest pain which comes with the movement of the right shoulder suggesting that it is coming from the right shoulder and back pain. Denies any diarrhea, constipation at this point. Denies any hemoptysis, denies wheezing. No edema noted in the lower extremities. Denied any substance abuse. Rest 10-point review of systems is unremarkable. PHYSICAL EXAMINATION: VITAL SIGNS: Today, blood pressure 119/74, pulse is 74, respiratory rate 20, temperature 97. HEENT: Head normocephalic, atraumatic. Eyes: Pupils equal, round, react to light. Extraocular movements are intact. Ear, nose, and throat: No discharge noted. NECK: No JVD, no lymphadenopathy, no thyromegaly. CHEST: Clinically clear to auscultation bilaterally. HEART: S1, S2, regular rate and no murmur. ABDOMEN: Soft, nontender. EXTREMITIES: No cyanosis, clubbing or edema. NEUROLOGIC: Grossly intact. No focal deficit. [place], [place] PATIENT HISTORY AND PHYSICAL EXAM NAME: DEBORAH SANTACRUZ UNIT #: [id number] ROOM: 6 DOCTOR: STEVEN ALLEN MD BIRTHDATE: [birth year] LUNGS: Normal breath sounds, no respiratory distress, no rhonchi, no wheeze. ABDOMEN: Soft. Positive bowel sounds. No guarding or rigidity noted. NEUROLOGICAL: As dictated. PSYCHOLOGICAL: Fair insight, fair judgment. SKIN: Warm and dry, no rashes, no ulcerations. ASSESSMENT: At this time: 1. Chest pain, rule out coronary artery disease. Dr. Metz was consulted. Cardiac enzymes have been negative. 2. Right shoulder pain. The patient already completed physical therapy at home. It seems to have improved, but this pain could also be the cause of his chest pain. 3. Back pain from spondylolisthesis, which is chronic. 4. Diabetes mellitus type 2. 5. Morbid obesity. 6. Chronic kidney disease stage 3. 7. Hypernatremia. 8. Hypocalcemia. PLAN OF CARE: 1. We will continue to monitor. 2. The patient's cardiac enzymes have been negative so far. 3. Dr. Metz has not seen the patient yet. 4. We will continue all home medications. 5. We will follow the patient in the morning. 6. All home meds were continued. STEVEN ALLEN MD CM:HISPHYS:PATIENT HISTORY AND PHYSICAL EXAMINATION 1315 1418 STEVEN ALLEN MD 04/27/17 1417 interface
[2017-04-26 11:48] LABS: BASO % 0.3 % (0.0-1.0); EOS # 0.1 10*3/uL (0.0-0.4); EOS % 1.3 % (1.0-4.0); HEMATOCRIT 37.1 % (42.0-52.0); HEMOGLOBIN 12.4 g/dl (14.0-18.0); IG # 0.1 10*3/uL (0.0-0.1); LYMPH # 3.1 10*3/uL (1.3-4.4); LYMPH % 29.2 % (27.0-41.0); MEAN CORPUSCULAR HGB 31.1 pg (27.0-31.0); MEAN CORPUSCULAR HGB CONC 33.4 g/dl (33.0-37.0); MONO # 0.7 10*3/uL (0.1-1.0); NEUT # 6.4 10*3/uL (2.3-7.9); NEUT % 61.5 % (47.0-73.0); PLATELET COUNT AUTOMATED 215 10*3/uL (130-400); RED BLOOD COUNT 3.99 10*6/uL (4.50-5.90); RED CELL DISTRI WIDTH 13.7 % (0-14.5); WHITE BLOOD COUNT 10.4 10*3/uL (4.8-10.8)
[2017-04-26 11:57] LABS: INTERNATIONAL NORM RATIO 1.1 (2.0-3.5); PROTHROMBIN TIME 12.2 SECONDS (9.0-12.4)
[2017-04-26 12:05] LABS: ALBUMIN 3.5 gm/dl (3.1-4.5); ALKALINE PHOSPHATASE 105 U/L (45-117); BILIRUBIN, TOTAL 0.7 mg/dl (0.2-1.0); BUN 22 mg/dl (7-24); CARBON DIOXIDE 22 mmol/L (21-32); CHLORIDE 111 mmol/L (98-107); EST GLOM FILT AFRICAN AMERICAN > 60 ml/min; GLUCOSE 86 mg/dL (65-99); POTASSIUM 3.6 mmol/L (3.5-5.1); SGOT/AST 27 IU/L (3-35); SGPT/ALT 47 U/L (12-78); SODIUM 146 mmol/L (136-145); TOTAL PROTEIN 6.6 gm/dL (6.4-8.2); TROPONIN I 0.022 ng/ml (<0.045)
[2017-04-26 12:08] LABS: MAGNESIUM 0.9 mg/dL (1.5-2.1)
[2017-04-26 17:39] LABS: CKMB 0.9 ng/ml (0.5-3.6); TROPONIN I 0.031 ng/ml (<0.045)
[2017-04-26 23:15] LABS: TROPONIN I 0.023 ng/ml (<0.045)
[2017-04-27] VITALS: BP 137/90
[2017-04-27 05:44] LABS: CKMB 1.1 ng/ml (0.5-3.6); LDH 154 U/L (87-241)
[2017-04-27 05:48] LABS: CPK 29 U/L (39-308); TROPONIN I < 0.015 ng/ml (<0.045)
[2017-04-27 08:00] VITALS: BP 119/74
[2017-04-27 12:00] VITALS: BP 131/69
[2017-04-27 16:00] VITALS: BP 150/71
[2017-04-27 20:00] VITALS: BP 139/66
[2017-04-28] VITALS: BP 142/72
[2017-04-28 08:00] VITALS: BP 128/63
== END 2017-04-28 14:22 | disposition home or self-care (01) | DRG 313 ==
LOC: ED 11:15 → 5E 14:08 → EDHOLD 14:08 → 5E 14:27
PROVIDERS: Emergency Medicine; Internal Medicine
DX: R07.89 Other chest pain (principal); I25.2 Old myocardial infarction; E87.0 Hyperosmolality and hypernatremia; E11.22 Type 2 diabetes mellitus with diabetic chronic kidney disease; I13.0 Hypertensive heart and chronic kidney disease with heart failure and stage 1 through stage 4 chronic kidney disease, or unspecified chronic kidney disease; I50.32 Chronic diastolic (congestive) heart failure; F14.10 Cocaine abuse, uncomplicated; K21.9 Gastro-esophageal reflux disease without esophagitis; F41.9 Anxiety disorder, unspecified; N40.0 Benign prostatic hyperplasia without lower urinary tract symptoms; N18.3 Chronic kidney disease, stage 3 (moderate); J44.9 Chronic obstructive pulmonary disease, unspecified; M51.36 Other intervertebral disc degeneration, lumbar region; Z86.73 Personal history of transient ischemic attack (TIA), and cerebral infarction without residual deficits; E78.5 Hyperlipidemia, unspecified; E66.9 Obesity, unspecified; G40.909 Epilepsy, unspecified, not intractable, without status epilepticus; Z88.1 Allergy status to other antibiotic agents; Z88.0 Allergy status to penicillin; Z79.4 Long term (current) use of insulin; F10.20 Alcohol dependence, uncomplicated; Z82.49 Family history of ischemic heart disease and other diseases of the circulatory system; Z83.3 Family history of diabetes mellitus; Z80.0 Family history of malignant neoplasm of digestive organs; I25.9 Chronic ischemic heart disease, unspecified; M43.16 Spondylolisthesis, lumbar region

== ENCOUNTER 2017-05-02 12:43 | Emergency (ER) | payer MEDICARE ==
[~2017-05-02] VITALS: Ht 182.8 cm; Wt 101.2 kg
[2017-05-02 13:05] VITALS: BP 162/82
== END 2017-05-02 13:06 | disposition left against medical advice (07) ==
LOC: ED 12:43
DX: Z76.0 Encounter for issue of repeat prescription (principal); N40.0 Benign prostatic hyperplasia without lower urinary tract symptoms; I13.0 Hypertensive heart and chronic kidney disease with heart failure and stage 1 through stage 4 chronic kidney disease, or unspecified chronic kidney disease; N18.3 Chronic kidney disease, stage 3 (moderate); I50.30 Unspecified diastolic (congestive) heart failure; J44.9 Chronic obstructive pulmonary disease, unspecified; K21.9 Gastro-esophageal reflux disease without esophagitis; M10.9 Gout, unspecified; E11.9 Type 2 diabetes mellitus without complications; E78.5 Hyperlipidemia, unspecified; I25.2 Old myocardial infarction; E66.9 Obesity, unspecified; G40.909 Epilepsy, unspecified, not intractable, without status epilepticus; Z68.34 Body mass index [BMI] 34.0-34.9, adult; Z53.21 Procedure and treatment not carried out due to patient leaving prior to being seen by health care provider; Z89.412 Acquired absence of left great toe; Z89.432 Acquired absence of left foot; Z98.890 Other specified postprocedural states; Z79.899 Other long term (current) drug therapy; Z88.1 Allergy status to other antibiotic agents; Z88.8 Allergy status to other drugs, medicaments and biological substances

== ENCOUNTER 2017-05-05 12:27 | Inpatient (IN) | payer MEDICARE ==
[~2017-05-05] VITALS: Ht 182.8 cm; Wt 108.1 kg
[2017-05-05 12:44] VITALS: BP 110/86
[2017-05-05 13:23] LABS: BASO % 0.2 % (0.0-1.0); EOS # 0.2 10*3/uL (0.0-0.4); EOS % 2.5 % (1.0-4.0); HEMATOCRIT 34.1 % (42.0-52.0); HEMOGLOBIN 11.1 g/dl (14.0-18.0); IG # 0.1 10*3/uL (0.0-0.1); LYMPH % 24.5 % (27.0-41.0); MEAN CELL VOLUME 95.5 fl (80.0-94.0); MEAN CORPUSCULAR HGB 31.1 pg (27.0-31.0); MEAN CORPUSCULAR HGB CONC 32.6 g/dl (33.0-37.0); MONO # 0.4 10*3/uL (0.1-1.0); MONO % 5.1 % (3.0-9.0); NEUT # 5.5 10*3/uL (2.3-7.9); NEUT % 66.5 % (47.0-73.0); PLATELET COUNT AUTOMATED 186 10*3/uL (130-400); RED BLOOD COUNT 3.57 10*6/uL (4.50-5.90); RED CELL DISTRI WIDTH 13.8 % (0-14.5); WHITE BLOOD COUNT 8.3 10*3/uL (4.8-10.8)
[2017-05-05 13:32] LABS: INTERNATIONAL NORM RATIO 1.1 (2.0-3.5); PROTHROMBIN TIME 11.8 SECONDS (9.0-12.4)
[2017-05-05 13:39] LABS: ALBUMIN 3.2 gm/dl (3.1-4.5); BILIRUBIN, TOTAL 0.4 mg/dl (0.2-1.0); C-REACTIVE PROTEIN 2.35 MG/DL (0-0.3); CKMB 1.3 ng/ml (0.5-3.6); POTASSIUM 4.3 mmol/L (3.5-5.1); TOTAL PROTEIN 6.7 gm/dL (6.4-8.2); TROPONIN I 0.016 ng/ml (<0.045)
[2017-05-05 13:43] LABS: MAGNESIUM 0.9 mg/dL (1.5-2.1)
[2017-05-05 15:21] LABS: LA>2 REFLEX 2 HR DRAW NOW
[2017-05-05 15:49] VITALS: BP 110/86
[2017-05-05 17:16] VITALS: BP 142/70
[2017-05-05 17:40] LABS: LA>2 REFLEX 4 HR DRAW NOW
[2017-05-05 17:55] VITALS: BP 135/75
[2017-05-05 18:32] LABS: CPK 54 U/L (39-308)
[2017-05-05 18:33] LABS: CKMB 1.5 ng/ml (0.5-3.6)
[2017-05-05 18:34] LABS: LDH 254 U/L (87-241); TROPONIN I < 0.015 ng/ml (<0.045)
[2017-05-05 20:00] VITALS: BP 103/55
[2017-05-06] VITALS: BP 129/57
[2017-05-06 00:36] LABS: CKMB 0.9 ng/ml (0.5-3.6)
[2017-05-06 06:27] LABS: BUN 23 mg/dl (7-24); CARBON DIOXIDE 20 mmol/L (21-32); CHLORIDE 109 mmol/L (98-107); EST GLOM FILT AFRICAN AMERICAN > 60 ml/min; GLUCOSE 292 mg/dL (65-99); MAGNESIUM 1.6 mg/dL (1.5-2.1); POTASSIUM 4.1 mmol/L (3.5-5.1); SODIUM 140 mmol/L (136-145)
[2017-05-06 08:00] VITALS: BP 133/73
[2017-05-06] MEDS ORDERED: DEPAKOTE ER250 MG PO (11:41)
[2017-05-06] MEDS ORDERED: CYMBALTA60 MG PO (11:42)
[2017-05-06] MEDS ORDERED: TRUSOPT 5 ML5 ML OPH (11:43)
[2017-05-06] MEDS ORDERED: XALATAN 0.005%2.5 ML OU (11:44)
[2017-05-06] MEDS ORDERED: NARCAN4 MG NAS (11:45)
[2017-05-06 12:00] VITALS: BP 124/53
[2017-05-06 13:05] LABS: BILIRUBIN NEGATIVE (NEGATIVE); BLOOD NEGATIVE (NEGATIVE); CLARITY SL CLOUDY (CLEAR); COLOR YELLOW (YELLOW); GLUCOSE 3+ (NEGATIVE); KETONE NEGATIVE (NEGATIVE); LEUKO ESTERASE NEGATIVE (NEGATIVE); NITRITE NEGATIVE (NEGATIVE); PH 5.5 (5.0-9.0); PROTEIN NEGATIVE (NEGATIVE); UROBILINOGEN 0.2 E.U./dl (0.2-1.0)
[2017-05-06 13:12] LABS: RBC 0-2 rbc/hpf (0-2); WBC 0-2 wbc/hpf (0-5)
[2017-05-06 16:00] VITALS: BP 152/73
[2017-05-06 20:00] VITALS: BP 145/72
[2017-05-07] VITALS: BP 136/57
[2017-05-07 06:25] LABS: BASO % 0.2 % (0.0-1.0); EOS # 0.1 10*3/uL (0.0-0.4); HEMATOCRIT 28.7 % (42.0-52.0); HEMOGLOBIN 9.5 g/dl (14.0-18.0); LYMPH # 1.6 10*3/uL (1.3-4.4); LYMPH % 33.1 % (27.0-41.0); MEAN CELL VOLUME 95.3 fl (80.0-94.0); MEAN CORPUSCULAR HGB 31.6 pg (27.0-31.0); MEAN CORPUSCULAR HGB CONC 33.1 g/dl (33.0-37.0); MEAN PLATELET VOLUME 10.7 fl (9.6-12.3); MONO # 0.3 10*3/uL (0.1-1.0); MONO % 6.2 % (3.0-9.0); NEUT # 2.7 10*3/uL (2.3-7.9); NEUT % 56.9 % (47.0-73.0); PLATELET COUNT AUTOMATED 142 10*3/uL (130-400); RED BLOOD COUNT 3.01 10*6/uL (4.50-5.90); RED CELL DISTRI WIDTH 13.7 % (0-14.5); WHITE BLOOD COUNT 4.7 10*3/uL (4.8-10.8)
[2017-05-07 06:53] LABS: ALBUMIN 2.7 gm/dl (3.1-4.5); BUN 20 mg/dl (7-24); CARBON DIOXIDE 22 mmol/L (21-32); CHLORIDE 112 mmol/L (98-107); EST GLOM FILT AFRICAN AMERICAN > 60 ml/min; GLUCOSE 265 mg/dL (65-99); MAGNESIUM 1.7 mg/dL (1.5-2.1); SGOT/AST 10 IU/L (3-35); SGPT/ALT 24 U/L (12-78); SODIUM 145 mmol/L (136-145)
[2017-05-07 06:54] LABS: ALKALINE PHOSPHATASE 92 U/L (45-117); BILIRUBIN, TOTAL 0.3 mg/dl (0.2-1.0); TOTAL PROTEIN 5.4 gm/dL (6.4-8.2)
[2017-05-07 06:57] LABS: POTASSIUM 5.7 mmol/L (3.5-5.1)
[2017-05-07 08:00] VITALS: BP 132/68
[2017-05-07 11:58] VITALS: BP 142/76
[2017-05-07 13:30] LABS: IRON 54 ug/dL (65-175); IRON SATURATION 20 %; UIBC 213 ug/dL (110-410)
[2017-05-07 15:42] VITALS: BP 130/73
[2017-05-07 20:00] VITALS: BP 145/76
[2017-05-08] VITALS: BP 152/71
[2017-05-08 06:29] LABS: BUN 15 mg/dl (7-24); CARBON DIOXIDE 24 mmol/L (21-32); CHLORIDE 109 mmol/L (98-107); EST GLOM FILT AFRICAN AMERICAN > 60 ml/min; GLUCOSE 104 mg/dL (65-99); POTASSIUM 5.7 mmol/L (3.5-5.1); SODIUM 141 mmol/L (136-145)
[2017-05-08 07:56] VITALS: BP 160/80
[2017-05-08 12:00] VITALS: BP 133/73
== END 2017-05-08 13:05 | disposition left against medical advice (07) | DRG 683 ==
LOC: ED 12:27 → EDHOLD 15:42 → 4E 15:42
PROVIDERS: Emergency Medicine; Family Medicine; Internal Medicine; Internal Medicine Cardiovascular Disease
DX: N17.0 Acute kidney failure with tubular necrosis (principal); E87.2 Acidosis; E44.0 Moderate protein-calorie malnutrition; E11.22 Type 2 diabetes mellitus with diabetic chronic kidney disease; I12.9 Hypertensive chronic kidney disease with stage 1 through stage 4 chronic kidney disease, or unspecified chronic kidney disease; N18.3 Chronic kidney disease, stage 3 (moderate); J44.9 Chronic obstructive pulmonary disease, unspecified; E11.618 Type 2 diabetes mellitus with other diabetic arthropathy; F10.20 Alcohol dependence, uncomplicated; Y90.9 Presence of alcohol in blood, level not specified; N40.0 Benign prostatic hyperplasia without lower urinary tract symptoms; I25.10 Atherosclerotic heart disease of native coronary artery without angina pectoris; E83.42 Hypomagnesemia; M19.90 Unspecified osteoarthritis, unspecified site; K21.9 Gastro-esophageal reflux disease without esophagitis; M10.9 Gout, unspecified; Z96.641 Presence of right artificial hip joint; Z53.21 Procedure and treatment not carried out due to patient leaving prior to being seen by health care provider; E78.2 Mixed hyperlipidemia; F41.9 Anxiety disorder, unspecified; F32.9 Major depressive disorder, single episode, unspecified; Z88.1 Allergy status to other antibiotic agents; Z90.49 Acquired absence of other specified parts of digestive tract; Z89.412 Acquired absence of left great toe; Z89.432 Acquired absence of left foot; Z79.4 Long term (current) use of insulin; Z86.73 Personal history of transient ischemic attack (TIA), and cerebral infarction without residual deficits; I25.2 Old myocardial infarction; Z95.5 Presence of coronary angioplasty implant and graft; Z80.0 Family history of malignant neoplasm of digestive organs; Z82.49 Family history of ischemic heart disease and other diseases of the circulatory system; Z79.51 Long term (current) use of inhaled steroids; Z79.899 Other long term (current) drug therapy; Z68.32 Body mass index [BMI] 32.0-32.9, adult

== ENCOUNTER 2017-05-12 17:51 | Inpatient (IN) | payer MEDICARE ==
[~2017-05-12] VITALS: Ht 182.9 cm; Wt 103.0 kg
[2017-05-12 02:50] VITALS: BP 129/64
[~2017-05-12 17:51] MED LIST changes: +DEPAKOTE ER250 MG PO; +NARCAN4 MG NAS; +TRUSOPT 5 ML5 ML OPH; +XALATAN 0.005%2.5 ML OU
[2017-05-12 18:07] VITALS: BP 90/50
[2017-05-12] MEDS ORDERED: ATORVASTATIN CA40 M1 PO (18:10)
[2017-05-12] MEDS ORDERED: RISPERDAL0.5 MG PO (18:11)
[2017-05-12] MEDS ORDERED: POTASSIUM CHLO10 ME4 PO (18:11)
[2017-05-12] MEDS ORDERED: NORVASC5 MG PO (18:12)
[2017-05-12] MEDS ORDERED: LISINOPRIL2.5 MG PO (18:12)
[2017-05-12] MEDS ORDERED: PROTONIX40 MG PO (18:12)
[2017-05-12] MEDS ORDERED: LASIX20 MG PO (18:13)
[2017-05-12] MEDS ORDERED: LOPRESSOR50 M1 PO (18:13)
[2017-05-12] MEDS ORDERED: NITROGLYCERIN0.4 MG SL (18:14)
[2017-05-12 18:24] VITALS: BP 144/77
[2017-05-12 18:35] LABS: BASO % 0.3 % (0.0-1.0); EOS # 0.2 10*3/uL (0.0-0.4); EOS % 2.2 % (1.0-4.0); HEMATOCRIT 31.8 % (42.0-52.0); HEMOGLOBIN 10.4 g/dl (14.0-18.0); IG # 0.1 10*3/uL (0.0-0.1); LYMPH # 2.5 10*3/uL (1.3-4.4); LYMPH % 35.3 % (27.0-41.0); MEAN CELL VOLUME 94.9 fl (80.0-94.0); MEAN CORPUSCULAR HGB CONC 32.7 g/dl (33.0-37.0); MEAN PLATELET VOLUME 11.3 fl (9.6-12.3); MONO # 0.4 10*3/uL (0.1-1.0); NEUT # 3.9 10*3/uL (2.3-7.9); NEUT % 55.4 % (47.0-73.0); PLATELET COUNT AUTOMATED 192 10*3/uL (130-400); RED BLOOD COUNT 3.35 10*6/uL (4.50-5.90); RED CELL DISTRI WIDTH 13.4 % (0-14.5); WHITE BLOOD COUNT 7.1 10*3/uL (4.8-10.8)
[2017-05-12 18:51] LABS: ALBUMIN 3.2 gm/dl (3.1-4.5); BILIRUBIN, TOTAL 0.3 mg/dl (0.2-1.0); POTASSIUM 5.6 mmol/L (3.5-5.1); TOTAL PROTEIN 6.4 gm/dL (6.4-8.2)
[2017-05-12 19:13] VITALS: BP 108/63
[2017-05-12 20:21] VITALS: BP 110/68
[2017-05-13] VITALS: BP 121/78
[2017-05-13 06:16] LABS: BASO % 0.4 % (0.0-1.0); EOS # 0.2 10*3/uL (0.0-0.4); HEMATOCRIT 30.4 % (42.0-52.0); IG # 0.1 10*3/uL (0.0-0.1); LYMPH # 2.1 10*3/uL (1.3-4.4); LYMPH % 39.4 % (27.0-41.0); MEAN CELL VOLUME 95.6 fl (80.0-94.0); MEAN CORPUSCULAR HGB 31.4 pg (27.0-31.0); MEAN CORPUSCULAR HGB CONC 32.9 g/dl (33.0-37.0); MEAN PLATELET VOLUME 11.2 fl (9.6-12.3); MONO # 0.4 10*3/uL (0.1-1.0); MONO % 6.8 % (3.0-9.0); NEUT # 2.6 10*3/uL (2.3-7.9); NEUT % 49.1 % (47.0-73.0); PLATELET COUNT AUTOMATED 156 10*3/uL (130-400); RED BLOOD COUNT 3.18 10*6/uL (4.50-5.90); RED CELL DISTRI WIDTH 13.3 % (0-14.5); WHITE BLOOD COUNT 5.3 10*3/uL (4.8-10.8)
[2017-05-13 06:38] LABS: FREE T4 0.69 ng/dl (0.76-1.46); PHOSPHOROUS 4.2 mg/dL (2.5-4.9); POTASSIUM 5.3 mmol/L (3.5-5.1)
[2017-05-13 06:44] LABS: THYROID STIM HORMONE (HS) 3.21 uIU/ml (0.358-4.75)
[2017-05-13 06:51] LABS: MAGNESIUM 0.8 mg/dL (1.5-2.1)
[2017-05-13 07:08] LABS: INTERNATIONAL NORM RATIO 1.1 (2.0-3.5); PROTHROMBIN TIME 12.2 SECONDS (9.0-12.4)
[2017-05-13 08:00] VITALS: BP 123/75
[2017-05-13 16:23] VITALS: BP 135/72
[2017-05-13 20:00] VITALS: BP 123/70
[2017-05-14] VITALS: BP 125/68
[2017-05-14 06:18] LABS: BASO % 0.4 % (0.0-1.0); EOS # 0.2 10*3/uL (0.0-0.4); EOS % 3.1 % (1.0-4.0); HEMATOCRIT 29.4 % (42.0-52.0); HEMOGLOBIN 9.6 g/dl (14.0-18.0); IG # 0.1 10*3/uL (0.0-0.1); LYMPH # 1.9 10*3/uL (1.3-4.4); LYMPH % 38.4 % (27.0-41.0); MEAN CELL VOLUME 94.8 fl (80.0-94.0); MEAN CORPUSCULAR HGB CONC 32.7 g/dl (33.0-37.0); MEAN PLATELET VOLUME 11.4 fl (9.6-12.3); MONO # 0.3 10*3/uL (0.1-1.0); MONO % 6.2 % (3.0-9.0); NEUT # 2.5 10*3/uL (2.3-7.9); NEUT % 50.7 % (47.0-73.0); PLATELET COUNT AUTOMATED 136 10*3/uL (130-400); RED CELL DISTRI WIDTH 13.4 % (0-14.5); WHITE BLOOD COUNT 4.8 10*3/uL (4.8-10.8)
[2017-05-14 06:38] LABS: BUN 21 mg/dl (7-24); CARBON DIOXIDE 21 mmol/L (21-32); CHLORIDE 109 mmol/L (98-107); EST GLOM FILT AFRICAN AMERICAN > 60 ml/min; GLUCOSE 220 mg/dL (65-99); POTASSIUM 4.7 mmol/L (3.5-5.1); SODIUM 142 mmol/L (136-145)
[2017-05-14 08:00] VITALS: BP 139/79
[2017-05-14 12:00] VITALS: BP 135/71
[2017-05-14 15:58] VITALS: BP 127/56
[2017-05-14 20:00] VITALS: BP 118/72
[2017-05-15] VITALS: BP 127/66
[2017-05-15 06:33] LABS: BASO % 0.2 % (0.0-1.0); EOS # 0.2 10*3/uL (0.0-0.4); EOS % 3.6 % (1.0-4.0); HEMATOCRIT 29.5 % (42.0-52.0); HEMOGLOBIN 9.8 g/dl (14.0-18.0); IG # 0.1 10*3/uL (0.0-0.1); LYMPH # 1.8 10*3/uL (1.3-4.4); LYMPH % 38.1 % (27.0-41.0); MEAN CELL VOLUME 95.8 fl (80.0-94.0); MEAN CORPUSCULAR HGB 31.8 pg (27.0-31.0); MEAN CORPUSCULAR HGB CONC 33.2 g/dl (33.0-37.0); MEAN PLATELET VOLUME 11.5 fl (9.6-12.3); MONO # 0.3 10*3/uL (0.1-1.0); MONO % 6.8 % (3.0-9.0); NEUT # 2.4 10*3/uL (2.3-7.9); NEUT % 49.8 % (47.0-73.0); PLATELET COUNT AUTOMATED 134 10*3/uL (130-400); RED BLOOD COUNT 3.08 10*6/uL (4.50-5.90); RED CELL DISTRI WIDTH 13.6 % (0-14.5); WHITE BLOOD COUNT 4.7 10*3/uL (4.8-10.8)
[2017-05-15 07:02] LABS: BUN 24 mg/dl (7-24); CARBON DIOXIDE 22 mmol/L (21-32); CHLORIDE 110 mmol/L (98-107); EST GLOM FILT AFRICAN AMERICAN > 60 ml/min; GLUCOSE 216 mg/dL (65-99); POTASSIUM 4.9 mmol/L (3.5-5.1); SODIUM 144 mmol/L (136-145)
[2017-05-15 08:00] VITALS: BP 140/75
[2017-05-15 12:00] VITALS: BP 120/66
== END 2017-05-15 12:14 | disposition home or self-care (01) | DRG 391 ==
LOC: ED 17:51 → EDHOLD 19:14 → 5E 19:14
PROVIDERS: Hospitalist; Internal Medicine; Internal Medicine Hospice and Palliative Medicine; Nurse Practitioner Family
DX: K21.9 Gastro-esophageal reflux disease without esophagitis (principal); N17.0 Acute kidney failure with tubular necrosis; E44.0 Moderate protein-calorie malnutrition; I50.32 Chronic diastolic (congestive) heart failure; I13.0 Hypertensive heart and chronic kidney disease with heart failure and stage 1 through stage 4 chronic kidney disease, or unspecified chronic kidney disease; I25.119 Atherosclerotic heart disease of native coronary artery with unspecified angina pectoris; E11.22 Type 2 diabetes mellitus with diabetic chronic kidney disease; M1A.9XX0 Chronic gout, unspecified, without tophus (tophi); E87.5 Hyperkalemia; D53.9 Nutritional anemia, unspecified; E87.8 Other disorders of electrolyte and fluid balance, not elsewhere classified; N18.3 Chronic kidney disease, stage 3 (moderate); G89.29 Other chronic pain; E78.2 Mixed hyperlipidemia; F41.9 Anxiety disorder, unspecified; F32.9 Major depressive disorder, single episode, unspecified; J44.9 Chronic obstructive pulmonary disease, unspecified; G40.909 Epilepsy, unspecified, not intractable, without status epilepticus; M51.36 Other intervertebral disc degeneration, lumbar region; E66.01 Morbid (severe) obesity due to excess calories; N40.0 Benign prostatic hyperplasia without lower urinary tract symptoms; Z96.641 Presence of right artificial hip joint; E11.65 Type 2 diabetes mellitus with hyperglycemia; E83.42 Hypomagnesemia; Z86.73 Personal history of transient ischemic attack (TIA), and cerebral infarction without residual deficits; I25.2 Old myocardial infarction; Z95.5 Presence of coronary angioplasty implant and graft; Z90.49 Acquired absence of other specified parts of digestive tract; Z89.432 Acquired absence of left foot; Z89.422 Acquired absence of other left toe(s); Z87.891 Personal history of nicotine dependence; Z82.49 Family history of ischemic heart disease and other diseases of the circulatory system; Z80.0 Family history of malignant neoplasm of digestive organs; Z88.1 Allergy status to other antibiotic agents; Z79.51 Long term (current) use of inhaled steroids; Z79.899 Other long term (current) drug therapy; Z79.4 Long term (current) use of insulin; Z68.30 Body mass index [BMI] 30.0-30.9, adult

== ENCOUNTER → 2017-05-17 | Outpatient (CLI) | payer MEDICARE ==
[~2017-05-17] MED LIST changes: +ATORVASTATIN CA40 M1 PO; +NITROGLYCERIN0.4 MG SL; +RISPERDAL0.5 MG PO
[2017-05-17 13:11] LABS: BUN 29 mg/dl (7-24); CARBON DIOXIDE 19 mmol/L (21-32); CHLORIDE 109 mmol/L (98-107); EST GLOM FILT AFRICAN AMERICAN > 60 ml/min; GLUCOSE 84 mg/dL (65-99); POTASSIUM 4.6 mmol/L (3.5-5.1); SODIUM 144 mmol/L (136-145)
== END | disposition home or self-care (01) ==
LOC: LAB 12:20
PROVIDERS: Internal Medicine
DX: N17.0 Acute kidney failure with tubular necrosis (principal)

== ENCOUNTER 2017-05-21 11:39 | Inpatient (IN) | payer MEDICARE ==
[~2017-05-21] VITALS: Ht 182.8 cm; Wt 107.7 kg
[2017-05-21 11:39] VITALS: BP 118/79
[2017-05-21 12:10] VITALS: BP 113/59
[2017-05-21 12:22] LABS: BASO % 0.3 % (0.0-1.0); EOS # 0.2 10*3/uL (0.0-0.4); EOS % 2.8 % (1.0-4.0); HEMATOCRIT 31.5 % (42.0-52.0); HEMOGLOBIN 10.3 g/dl (14.0-18.0); IG # 0.1 10*3/uL (0.0-0.1); LYMPH # 2.5 10*3/uL (1.3-4.4); LYMPH % 35.8 % (27.0-41.0); MEAN CELL VOLUME 94.6 fl (80.0-94.0); MEAN CORPUSCULAR HGB 30.9 pg (27.0-31.0); MEAN CORPUSCULAR HGB CONC 32.7 g/dl (33.0-37.0); MEAN PLATELET VOLUME 10.5 fl (9.6-12.3); MONO # 0.6 10*3/uL (0.1-1.0); MONO % 8.9 % (3.0-9.0); NEUT # 3.6 10*3/uL (2.3-7.9); NEUT % 50.9 % (47.0-73.0); PLATELET COUNT AUTOMATED 177 10*3/uL (130-400); RED BLOOD COUNT 3.33 10*6/uL (4.50-5.90); RED CELL DISTRI WIDTH 13.4 % (0-14.5); WHITE BLOOD COUNT 7.1 10*3/uL (4.8-10.8)
[2017-05-21 12:30] LABS: INTERNATIONAL NORM RATIO 1.1 (2.0-3.5); PROTHROMBIN TIME 12.2 SECONDS (9.0-12.4)
[2017-05-21 12:43] LABS: ALBUMIN 3.2 gm/dl (3.1-4.5); ALKALINE PHOSPHATASE 94 U/L (45-117); BILIRUBIN, TOTAL 0.3 mg/dl (0.2-1.0); BUN 46 mg/dl (7-24); CARBON DIOXIDE 22 mmol/L (21-32); CHLORIDE 107 mmol/L (98-107); EST GLOM FILT AFRICAN AMERICAN 36 ml/min; GLUCOSE 263 mg/dL (65-99); POTASSIUM 5.5 mmol/L (3.5-5.1); SGOT/AST 9 IU/L (3-35); SGPT/ALT 18 U/L (12-78); SODIUM 139 mmol/L (136-145)
[2017-05-21 12:49] LABS: TROPONIN I < 0.015 ng/ml (<0.045)
[2017-05-21 13:19] LABS: MAGNESIUM 0.8 mg/dL (1.5-2.1)
[2017-05-21 13:26] VITALS: BP 134/76
[2017-05-21 14:43] VITALS: BP 113/62; BP 137/73
[2017-05-21 16:21] VITALS: BP 140/70
[2017-05-21] MEDS ORDERED: LEVEMIR10 ML SQ (16:28)
[2017-05-21] MEDS ORDERED: NEURONTIN300 MG PO (16:29)
[2017-05-21] MEDS ORDERED: XANAX0.5 MG PO (16:29)
[2017-05-21 18:01] LABS: MAGNESIUM 2.6 mg/dL (1.5-2.1); POTASSIUM 4.8 mmol/L (3.5-5.1)
[2017-05-21 20:00] VITALS: BP 101/58
[2017-05-22] VITALS: BP 105/63
[2017-05-22 07:06] LABS: BASO % 0.2 % (0.0-1.0); EOS # 0.2 10*3/uL (0.0-0.4); EOS % 3.4 % (1.0-4.0); HEMATOCRIT 29.5 % (42.0-52.0); HEMOGLOBIN 9.8 g/dl (14.0-18.0); LYMPH # 1.6 10*3/uL (1.3-4.4); LYMPH % 32.5 % (27.0-41.0); MEAN CELL VOLUME 95.5 fl (80.0-94.0); MEAN CORPUSCULAR HGB 31.7 pg (27.0-31.0); MEAN CORPUSCULAR HGB CONC 33.2 g/dl (33.0-37.0); MEAN PLATELET VOLUME 11.2 fl (9.6-12.3); MONO # 0.4 10*3/uL (0.1-1.0); MONO % 8.6 % (3.0-9.0); NEUT # 2.7 10*3/uL (2.3-7.9); NEUT % 54.5 % (47.0-73.0); PLATELET COUNT AUTOMATED 130 10*3/uL (130-400); RED BLOOD COUNT 3.09 10*6/uL (4.50-5.90); RED CELL DISTRI WIDTH 13.2 % (0-14.5)
[2017-05-22 07:35] LABS: PHOSPHOROUS 4.3 mg/dL (2.5-4.9); POTASSIUM 4.6 mmol/L (3.5-5.1)
[2017-05-22 07:44] LABS: FREE T4 0.73 ng/dl (0.76-1.46); THYROID STIM HORMONE (HS) 2.92 uIU/ml (0.358-4.75)
[2017-05-22 08:52] VITALS: BP 122/64
[2017-05-22 13:02] VITALS: BP 120/68
[2017-05-22] MEDS ORDERED: LASIX20 MG PO (14:03)
== END 2017-05-22 15:56 | disposition home or self-care (01) | DRG 391 ==
LOC: ED 11:39 → EDHOLD 14:44 → 5E 14:44
PROVIDERS: Emergency Medicine; Internal Medicine
DX: K21.9 Gastro-esophageal reflux disease without esophagitis (principal); N17.0 Acute kidney failure with tubular necrosis; E11.65 Type 2 diabetes mellitus with hyperglycemia; I50.32 Chronic diastolic (congestive) heart failure; I13.10 Hypertensive heart and chronic kidney disease without heart failure, with stage 1 through stage 4 chronic kidney disease, or unspecified chronic kidney disease; I10 Essential (primary) hypertension; E11.9 Type 2 diabetes mellitus without complications; D53.9 Nutritional anemia, unspecified; E44.1 Mild protein-calorie malnutrition; E11.22 Type 2 diabetes mellitus with diabetic chronic kidney disease; R07.9 Chest pain, unspecified; I25.2 Old myocardial infarction; I25.10 Atherosclerotic heart disease of native coronary artery without angina pectoris; E78.5 Hyperlipidemia, unspecified; F41.9 Anxiety disorder, unspecified; F32.9 Major depressive disorder, single episode, unspecified; G89.29 Other chronic pain; I12.9 Hypertensive chronic kidney disease with stage 1 through stage 4 chronic kidney disease, or unspecified chronic kidney disease; E11.69 Type 2 diabetes mellitus with other specified complication; N18.3 Chronic kidney disease, stage 3 (moderate); J44.9 Chronic obstructive pulmonary disease, unspecified; M10.9 Gout, unspecified; E66.01 Morbid (severe) obesity due to excess calories; G40.909 Epilepsy, unspecified, not intractable, without status epilepticus; Z96.641 Presence of right artificial hip joint; E83.42 Hypomagnesemia; K59.00 Constipation, unspecified; E87.5 Hyperkalemia; Z68.32 Body mass index [BMI] 32.0-32.9, adult; Z95.5 Presence of coronary angioplasty implant and graft; Z90.49 Acquired absence of other specified parts of digestive tract; Z89.412 Acquired absence of left great toe; Z89.422 Acquired absence of other left toe(s); Z82.49 Family history of ischemic heart disease and other diseases of the circulatory system; Z83.3 Family history of diabetes mellitus; Z80.0 Family history of malignant neoplasm of digestive organs; Z86.73 Personal history of transient ischemic attack (TIA), and cerebral infarction without residual deficits; E86.0 Dehydration; N40.0 Benign prostatic hyperplasia without lower urinary tract symptoms

== ENCOUNTER 2017-05-24 14:29 | Emergency (ER) | payer MEDICARE ==
[~2017-05-24] VITALS: Wt 106.1 kg
[2017-05-24 15:32] LABS: BASO % 0.4 % (0.0-1.0); EOS # 0.2 10*3/uL (0.0-0.4); EOS % 2.6 % (1.0-4.0); HEMATOCRIT 31.7 % (42.0-52.0); HEMOGLOBIN 10.7 g/dl (14.0-18.0); IG # 0.1 10*3/uL (0.0-0.1); LYMPH # 1.7 10*3/uL (1.3-4.4); LYMPH % 25.4 % (27.0-41.0); MEAN CORPUSCULAR HGB 31.4 pg (27.0-31.0); MEAN CORPUSCULAR HGB CONC 33.8 g/dl (33.0-37.0); MEAN PLATELET VOLUME 10.6 fl (9.6-12.3); MONO # 0.6 10*3/uL (0.1-1.0); MONO % 8.5 % (3.0-9.0); NEUT # 4.2 10*3/uL (2.3-7.9); NEUT % 61.6 % (47.0-73.0); PLATELET COUNT AUTOMATED 157 10*3/uL (130-400); RED BLOOD COUNT 3.41 10*6/uL (4.50-5.90); RED CELL DISTRI WIDTH 13.3 % (0-14.5); WHITE BLOOD COUNT 6.9 10*3/uL (4.8-10.8)
[2017-05-24 15:41] LABS: INTERNATIONAL NORM RATIO 1.1 (2.0-3.5); PROTHROMBIN TIME 11.8 SECONDS (9.0-12.4)
[2017-05-24 15:48] LABS: ALBUMIN 3.4 gm/dl (3.1-4.5); ALKALINE PHOSPHATASE 103 U/L (45-117); BILIRUBIN, TOTAL 0.3 mg/dl (0.2-1.0); BUN 23 mg/dl (7-24); CARBON DIOXIDE 20 mmol/L (21-32); CHLORIDE 111 mmol/L (98-107); EST GLOM FILT AFRICAN AMERICAN > 60 ml/min; GLUCOSE 208 mg/dL (65-99); POTASSIUM 5.2 mmol/L (3.5-5.1); SGOT/AST 9 IU/L (3-35); SGPT/ALT 20 U/L (12-78); SODIUM 141 mmol/L (136-145); TOTAL PROTEIN 6.3 gm/dL (6.4-8.2)
[2017-05-24 15:53] LABS: TROPONIN I < 0.015 ng/ml (<0.045)
[2017-05-24 15:54] LABS: MAGNESIUM 0.9 mg/dL (1.5-2.1)
[2017-05-24 16:07] VITALS: BP 138/86
[2017-05-24 16:08] LABS: BILIRUBIN NEGATIVE (NEGATIVE); BLOOD TRACE-LYSED (NEGATIVE); CLARITY CLEAR (CLEAR); COLOR YELLOW (YELLOW); GLUCOSE TRACE (NEGATIVE); KETONE NEGATIVE (NEGATIVE); LEUKO ESTERASE NEGATIVE (NEGATIVE); NITRITE NEGATIVE (NEGATIVE); PH 5.5 (5.0-9.0); PROTEIN TRACE (NEGATIVE); UROBILINOGEN 0.2 E.U./dl (0.2-1.0)
[2017-05-24 16:16] LABS: URINE AMPHETAMINES < 1000 (1000ng/ml); URINE BARBITURATES < 200 (200ng/ml); URINE COCAINE < 300 (300ng/ml)
[2017-05-24 16:20] LABS: BACTERIA TRACE
[2017-05-24 16:21] LABS: EPITHELIAL CELLS 0-2; URINE REFLEX COMMENT NO (NO)
== END 2017-05-24 16:31 | disposition home or self-care (01) ==
LOC: ED 14:29
PROVIDERS: Physician Assistant
DX: S80.212A Abrasion, left knee, initial encounter (principal); R07.89 Other chest pain; Z87.891 Personal history of nicotine dependence; Z90.49 Acquired absence of other specified parts of digestive tract; Z95.5 Presence of coronary angioplasty implant and graft; Z88.0 Allergy status to penicillin; Z88.1 Allergy status to other antibiotic agents; Z88.8 Allergy status to other drugs, medicaments and biological substances; Z79.899 Other long term (current) drug therapy; W10.9XXA Fall (on) (from) unspecified stairs and steps, initial encounter; Y93.01 Activity, walking, marching and hiking; Y92.9 Unspecified place or not applicable; Y99.9 Unspecified external cause status

== ENCOUNTER → 2017-05-26 | Outpatient (CLI) | payer MEDICARE | END | disposition home or self-care (01) | LOC: RESCLI 04:14 | DX: E83.42 Hypomagnesemia (principal); E11.65 Type 2 diabetes mellitus with hyperglycemia; G89.4 Chronic pain syndrome; M19.90 Unspecified osteoarthritis, unspecified site; K21.9 Gastro-esophageal reflux disease without esophagitis; F41.9 Anxiety disorder, unspecified; M10.9 Gout, unspecified; M10.20 Drug-induced gout, unspecified site; E78.00 Pure hypercholesterolemia, unspecified; I25.10 Atherosclerotic heart disease of native coronary artery without angina pectoris; J44.9 Chronic obstructive pulmonary disease, unspecified; I12.9 Hypertensive chronic kidney disease with stage 1 through stage 4 chronic kidney disease, or unspecified chronic kidney disease; N18.3 Chronic kidney disease, stage 3 (moderate); E11.22 Type 2 diabetes mellitus with diabetic chronic kidney disease; F32.9 Major depressive disorder, single episode, unspecified; D63.1 Anemia in chronic kidney disease; Z91.81 History of falling; Z79.4 Long term (current) use of insulin ==

== ENCOUNTER 2017-05-31 10:19 | Emergency (ER) | payer MEDICARE ==
[~2017-05-31] VITALS: Wt 81.6 kg
--- NOTE | ~2017-05-31 | EKG ---
[place], [place] ELECTROCARDIOGRAM REPORT NAME: DEBORAH SANTACRUZ UNIT #: [id number] ROOM: DOCTOR: PAM ALVARADO MD BIRTHDATE: [birth year] DOS: 05/31/2017 TIME: 1034 hours. Sinus tachycardia at 103 beats per minute. Old inferior wall NE. Likely old anterior wall NE. Low voltage in precordial leads. An abnormal ECG. No previous tracing from an ECG of 05/21/2017. PAM ALVARADO MD CM:EKGRPT:ELECTROCARDIOGRAM REPORT 1739 00 PAM ALVARADO MD
[2017-05-31 10:34] LABS: BASO % 0.2 % (0.0-1.0); EOS # 0.3 10*3/uL (0.0-0.4); EOS % 2.9 % (1.0-4.0); HEMATOCRIT 34.1 % (42.0-52.0); HEMOGLOBIN 11.6 g/dl (14.0-18.0); IG # 0.1 10*3/uL (0.0-0.1); LYMPH # 2.1 10*3/uL (1.3-4.4); LYMPH % 23.7 % (27.0-41.0); MEAN CELL VOLUME 93.4 fl (80.0-94.0); MEAN CORPUSCULAR HGB 31.8 pg (27.0-31.0); MONO # 0.4 10*3/uL (0.1-1.0); MONO % 4.6 % (3.0-9.0); NEUT # 6.1 10*3/uL (2.3-7.9); NEUT % 67.8 % (47.0-73.0); PLATELET COUNT AUTOMATED 170 10*3/uL (130-400); RED BLOOD COUNT 3.65 10*6/uL (4.50-5.90); RED CELL DISTRI WIDTH 13.4 % (0-14.5)
[2017-05-31 10:43] LABS: INTERNATIONAL NORM RATIO 1.1 (2.0-3.5); PROTHROMBIN TIME 11.5 SECONDS (9.0-12.4)
[2017-05-31 10:51] LABS: ALBUMIN 3.5 gm/dl (3.1-4.5); ALKALINE PHOSPHATASE 125 U/L (45-117); BILIRUBIN, TOTAL 0.3 mg/dl (0.2-1.0); BUN 22 mg/dl (7-24); CARBON DIOXIDE 21 mmol/L (21-32); CHLORIDE 108 mmol/L (98-107); EST GLOM FILT AFRICAN AMERICAN 53 ml/min; GLUCOSE 227 mg/dL (65-99); POTASSIUM 3.9 mmol/L (3.5-5.1); SGOT/AST 16 IU/L (3-35); SGPT/ALT 25 U/L (12-78); SODIUM 141 mmol/L (136-145); TOTAL PROTEIN 6.8 gm/dL (6.4-8.2); TROPONIN I < 0.015 ng/ml (<0.045)
[2017-05-31 10:52] LABS: MAGNESIUM 0.8 mg/dL (1.5-2.1)
[2017-05-31 12:26] VITALS: BP 138/66
[2017-05-31 12:34] LABS: BILIRUBIN NEGATIVE (NEGATIVE); BLOOD NEGATIVE (NEGATIVE); CLARITY CLEAR (CLEAR); COLOR YELLOW (YELLOW); GLUCOSE NEGATIVE (NEGATIVE); KETONE NEGATIVE (NEGATIVE); LEUKO ESTERASE NEGATIVE (NEGATIVE); NITRITE NEGATIVE (NEGATIVE); PH 5.5 (5.0-9.0); PROTEIN NEGATIVE (NEGATIVE); UROBILINOGEN 0.2 E.U./dl (0.2-1.0)
[2017-05-31 12:41] LABS: EPITHELIAL CELLS 0-2; URINE REFLEX COMMENT NO (NO)
[2017-05-31 12:43] LABS: URINE AMPHETAMINES < 1000 (1000ng/ml); URINE BARBITURATES < 200 (200ng/ml); URINE COCAINE < 300 (300ng/ml)
[2017-05-31] MEDS ORDERED: MAGOX 400400 MG PO (14:11)
== END 2017-05-31 14:51 | disposition home or self-care (01) ==
LOC: ED 10:19
PROVIDERS: Emergency Medicine; Nurse Practitioner Family
DX: R07.9 Chest pain, unspecified (principal); R00.2 Palpitations; I16.0 Hypertensive urgency; R73.9 Hyperglycemia, unspecified; E83.42 Hypomagnesemia; Z88.1 Allergy status to other antibiotic agents; Z79.899 Other long term (current) drug therapy; Z87.891 Personal history of nicotine dependence

== ENCOUNTER 2017-06-10 20:08 | Emergency (ER) | payer MEDICARE ==
[~2017-06-10] VITALS: Ht 167.6 cm; Wt 104.3 kg
[2017-06-10 22:18] VITALS: BP 119/72
== END 2017-06-10 23:32 | disposition home or self-care (01) ==
LOC: ED 20:08
DX: S70.02XA Contusion of left hip, initial encounter (principal); S80.02XA Contusion of left knee, initial encounter; M54.9 Dorsalgia, unspecified; I25.10 Atherosclerotic heart disease of native coronary artery without angina pectoris; E11.22 Type 2 diabetes mellitus with diabetic chronic kidney disease; I13.0 Hypertensive heart and chronic kidney disease with heart failure and stage 1 through stage 4 chronic kidney disease, or unspecified chronic kidney disease; N18.3 Chronic kidney disease, stage 3 (moderate); I50.32 Chronic diastolic (congestive) heart failure; K21.9 Gastro-esophageal reflux disease without esophagitis; M10.9 Gout, unspecified; F14.10 Cocaine abuse, uncomplicated; M86.8X7 Other osteomyelitis, ankle and foot; G40.909 Epilepsy, unspecified, not intractable, without status epilepticus; E11.65 Type 2 diabetes mellitus with hyperglycemia; E78.5 Hyperlipidemia, unspecified; Z79.4 Long term (current) use of insulin; Z86.73 Personal history of transient ischemic attack (TIA), and cerebral infarction without residual deficits; Z88.0 Allergy status to penicillin; Z88.1 Allergy status to other antibiotic agents; Z79.899 Other long term (current) drug therapy; Z87.891 Personal history of nicotine dependence; W01.0XXA Fall on same level from slipping, tripping and stumbling without subsequent striking against object, initial encounter; Y93.89 Activity, other specified; Y92.89 Other specified places as the place of occurrence of the external cause; Y99.8 Other external cause status

== ENCOUNTER 2017-06-12 15:16 | Emergency (ER) | payer OTHER, MEDICARE ==
[~2017-06-12] VITALS: Ht 182.8 cm; Wt 106.6 kg
--- NOTE | ~2017-06-12 | EKG ---
[place], [place] ELECTROCARDIOGRAM REPORT NAME: DEBORAH SANTACRUZ UNIT #: [id number] ROOM: DOCTOR: PAM ALVARADO MD BIRTHDATE: [birth year] DOS: 06/12/2017 TIME: 1542 HOURS. Sinus tachycardia at 112 beats per minute. An old inferior wall W[place]. Probably an old anterior wall [place] as well. No significant change from ECG of previous few months. PAM ALVARADO MD CM:EKGRPT:ELECTROCARDIOGRAM REPORT 31 10 PAM ALVARADO MD
[2017-06-12 16:00] LABS: BILIRUBIN NEGATIVE (NEGATIVE); BLOOD NEGATIVE (NEGATIVE); CLARITY CLEAR (CLEAR); COLOR YELLOW (YELLOW); GLUCOSE NEGATIVE (NEGATIVE); KETONE NEGATIVE (NEGATIVE); LEUKO ESTERASE NEGATIVE (NEGATIVE); NITRITE NEGATIVE (NEGATIVE); PH 5.5 (5.0-9.0); PROTEIN NEGATIVE (NEGATIVE); SPECIFIC GRAVITY 1.015 (1.005-1.030); UROBILINOGEN 0.2 E.U./dl (0.2-1.0)
[2017-06-12 16:07] LABS: BASO % 0.2 % (0.0-1.0); EOS # 0.2 10*3/uL (0.0-0.4); EOS % 3.2 % (1.0-4.0); HEMATOCRIT 29.9 % (42.0-52.0); HEMOGLOBIN 10.1 g/dl (14.0-18.0); IG # 0.1 10*3/uL (0.0-0.1); LYMPH # 1.8 10*3/uL (1.3-4.4); LYMPH % 26.9 % (27.0-41.0); MEAN CELL VOLUME 95.2 fl (80.0-94.0); MEAN CORPUSCULAR HGB 32.2 pg (27.0-31.0); MEAN CORPUSCULAR HGB CONC 33.8 g/dl (33.0-37.0); MEAN PLATELET VOLUME 10.9 fl (9.6-12.3); MONO # 0.5 10*3/uL (0.1-1.0); NEUT % 60.8 % (47.0-73.0); PLATELET COUNT AUTOMATED 128 10*3/uL (130-400); RED BLOOD COUNT 3.14 10*6/uL (4.50-5.90); RED CELL DISTRI WIDTH 13.7 % (0-14.5); WHITE BLOOD COUNT 6.6 10*3/uL (4.8-10.8)
[2017-06-12 16:15] VITALS: BP 119/66
[2017-06-12 16:15] LABS: URINE AMPHETAMINES < 1000 (1000ng/ml); URINE BARBITURATES < 200 (200ng/ml); URINE COCAINE < 300 (300ng/ml)
[2017-06-12 16:16] LABS: INTERNATIONAL NORM RATIO 1.1 (2.0-3.5); PROTHROMBIN TIME 11.3 SECONDS (9.0-12.4)
[2017-06-12 16:27] LABS: BACTERIA TRACE
[2017-06-12 16:28] LABS: EPITHELIAL CELLS 0-2; MUCOUS 1+; URINE REFLEX COMMENT NO (NO); WBC 0-2 wbc/hpf (0-5)
[2017-06-12 16:29] LABS: ALBUMIN 2.9 gm/dl (3.1-4.5); ALKALINE PHOSPHATASE 134 U/L (45-117); BILIRUBIN, TOTAL 0.4 mg/dl (0.2-1.0); BUN 33 mg/dl (7-24); CARBON DIOXIDE 22 mmol/L (21-32); CHLORIDE 108 mmol/L (98-107); EST GLOM FILT AFRICAN AMERICAN 38 ml/min; GLUCOSE 170 mg/dL (65-99); POTASSIUM 4.8 mmol/L (3.5-5.1); SGOT/AST 18 IU/L (3-35); SGPT/ALT 23 U/L (12-78); SODIUM 140 mmol/L (136-145); TOTAL PROTEIN 5.9 gm/dL (6.4-8.2)
[2017-06-12 16:33] LABS: TROPONIN I < 0.015 ng/ml (<0.045)
[2017-06-12 16:34] LABS: MAGNESIUM 0.9 mg/dL (1.5-2.1)
== END 2017-06-12 18:05 | disposition short-term general hospital (02) ==
LOC: ED 15:16
PROVIDERS: Nurse Practitioner Family
DX: S20.219A Contusion of unspecified front wall of thorax, initial encounter (principal); R55 Syncope and collapse; E83.51 Hypocalcemia; E83.42 Hypomagnesemia; Z90.49 Acquired absence of other specified parts of digestive tract; Z95.5 Presence of coronary angioplasty implant and graft; Z88.1 Allergy status to other antibiotic agents; Z88.8 Allergy status to other drugs, medicaments and biological substances; Z79.4 Long term (current) use of insulin; Z79.899 Other long term (current) drug therapy; V59.9XXA Occupant (driver) (passenger) of pick-up truck or van injured in unspecified traffic accident, initial encounter; Y93.89 Activity, other specified; Y92.413 State road as the place of occurrence of the external cause; Y99.9 Unspecified external cause status

== ENCOUNTER → 2017-07-15 | Outpatient (CLI) | payer MEDICARE | END | disposition home or self-care (01) | LOC: RESCLI 01:32 | DX: J44.9 Chronic obstructive pulmonary disease, unspecified (principal); D64.9 Anemia, unspecified; E83.42 Hypomagnesemia; E11.65 Type 2 diabetes mellitus with hyperglycemia; G89.4 Chronic pain syndrome; M19.90 Unspecified osteoarthritis, unspecified site; K21.9 Gastro-esophageal reflux disease without esophagitis; F41.9 Anxiety disorder, unspecified; M10.9 Gout, unspecified; M10.20 Drug-induced gout, unspecified site; E78.5 Hyperlipidemia, unspecified; E03.9 Hypothyroidism, unspecified; H40.9 Unspecified glaucoma; N40.0 Benign prostatic hyperplasia without lower urinary tract symptoms; E11.22 Type 2 diabetes mellitus with diabetic chronic kidney disease; N18.3 Chronic kidney disease, stage 3 (moderate); I12.9 Hypertensive chronic kidney disease with stage 1 through stage 4 chronic kidney disease, or unspecified chronic kidney disease; F17.200 Nicotine dependence, unspecified, uncomplicated; Z91.81 History of falling ==

== ENCOUNTER 2017-07-20 13:25 | Inpatient (IN) | payer MEDICARE ==
[~2017-07-20] VITALS: Ht 182.8 cm; Wt 102.7 kg
--- NOTE | ~2017-07-20 | EKG ---
[place], [place] ELECTROCARDIOGRAM REPORT NAME: DEBORAH SANTACRUZ UNIT #: [id number] ROOM: 425 DOCTOR: PAM ALVARADO MD BIRTHDATE: [birth year] DOS: 07/22/2017 TIME: 1350 hours. Normal sinus rhythm at 71 beats per minute. An old inferior wall NM. Low voltage in precordial leads. An abnormal ECG. No previous tracing is available for comparison. PAM ALVARADO MD Jennifer Roach NP CM:EKGRPT:ELECTROCARDIOGRAM REPORT 1457 2225 PAM ALVARADO MD
[2017-07-20 13:37] VITALS: BP 140/72
[2017-07-20 13:46] LABS: BASO % 0.2 % (0.0-1.0); EOS # 0.2 10*3/uL (0.0-0.4); HEMATOCRIT 32.2 % (42.0-52.0); HEMOGLOBIN 10.3 g/dl (14.0-18.0); LYMPH # 3.7 10*3/uL (1.3-4.4); LYMPH % 33.3 % (27.0-41.0); MEAN CORPUSCULAR HGB 29.4 pg (27.0-31.0); MEAN PLATELET VOLUME 10.5 fl (9.6-12.3); MONO # 0.6 10*3/uL (0.1-1.0); MONO % 5.6 % (3.0-9.0); NEUT # 6.4 10*3/uL (2.3-7.9); NEUT % 58.2 % (47.0-73.0); PLATELET COUNT AUTOMATED 226 10*3/uL (130-400); WHITE BLOOD COUNT 11.1 10*3/uL (4.8-10.8)
[2017-07-20 14:01] LABS: ACT PARTIAL THROMBO TIME 26.4 SECONDS (20.8-31.5); INTERNATIONAL NORM RATIO 1.2 (2.0-3.5)
[2017-07-20 14:12] LABS: ALBUMIN 2.9 gm/dl (3.1-4.5); ALKALINE PHOSPHATASE 121 U/L (45-117); BUN 44 mg/dl (7-24); CHLORIDE 107 mmol/L (98-107); CKMB 0.6 ng/ml (0.5-3.6); CPK 44 U/L (39-308); CREATININE 1.92 mg/dL (0.70-1.30); LIPASE 479 U/L (73-393); MAGNESIUM 1.2 mg/dL (1.5-2.1); POTASSIUM 4.9 mmol/L (3.5-5.1); SGOT/AST 14 IU/L (3-35); SGPT/ALT 25 U/L (12-78); SODIUM 136 mmol/L (136-145); TOTAL PROTEIN 6.9 gm/dL (6.4-8.2)
[2017-07-20 14:13] LABS: TROPONIN I < 0.015 ng/ml (<0.045)
[2017-07-20 14:27] LABS: VALPROIC ACID (DEPAKENE) 30.1 ug/ml (50-100)
--- NOTE | 2017-07-20 16:21 | NUR ---
REPORT TO ANUJ RIVERS ON 4TH FLOOR.
[2017-07-20 16:23] VITALS: BP 116/62
--- NOTE | 2017-07-20 16:25 | NUR ---
PATIENT TAKEN TO 4TH FLOOR AT THIS TIME BY THIS NURSE.
--- NOTE | 2017-07-20 16:35 | NUR ---
A 67, admitted to , under the services of STEVEN Bennett MD with a diagnosis of DEHYDRATION, DIZZINESS, ARF. Chief complaint is DIZZINESS. Patient arrived via stretcher from ER. Monitor applied. Initial assessment completed. Vital signs taken and recorded. STEVEN BENNETT MD notified of admission to the unit. Orders received. See assessment for past medical history, medications and allergies. Patient and/or family oriented to unit. [address] visitation policy reviewed. Clothing/patient valuable form completed. DELFINA DE SOUZA
[2017-07-20 16:40] VITALS: BP 142/70
--- NOTE | 2017-07-20 16:40 | NUR ---
PATIENT WALKER HAS BEEN TAKEN TO 4TH FLOOR BY THIS NURSE. 4TH FLOOR STAFF WITH PATIENT AT THIS TIME.
[2017-07-20 18:16] LABS: BILIRUBIN NEGATIVE (NEGATIVE); BLOOD NEGATIVE (NEGATIVE); CLARITY CLEAR (CLEAR); COLOR YELLOW (YELLOW); GLUCOSE NEGATIVE (NEGATIVE); KETONE NEGATIVE (NEGATIVE); LEUKO ESTERASE NEGATIVE (NEGATIVE); NITRITE NEGATIVE (NEGATIVE); PH 5.5 (5.0-9.0); UROBILINOGEN 0.2 E.U./dl (0.2-1.0)
[2017-07-20 18:23] LABS: EPITHELIAL CELLS 0-2; RBC 0-2 rbc/hpf (0-2); WBC 0-2 wbc/hpf (0-5)
[2017-07-20 20:00] VITALS: BP 130/68
--- NOTE | 2017-07-20 20:25 | NUR ---
PATIENT RESTING IN BED WATCHING TV. RESPIRATIONS EASY/REGULAR. NO SXS OF DISTRESS. C/O HEADACHE AT AN 8. WILL MONITOR.
--- NOTE | 2017-07-20 20:37 | NUR ---
PATIENT OFF FLOOR FOR CT AT THIS TIME.
--- NOTE | 2017-07-20 20:50 | NUR ---
PATIENT RETURNED TO FLOOR.
--- NOTE | 2017-07-20 21:05 | NUR ---
DR LAKE NOTIFIED OF POSITIVE ORTHOS. NO NEW ORDERS AT THIS TIME.
[2017-07-21] VITALS: BP 94/55
[2017-07-21 05:53] LABS: ALBUMIN 2.7 gm/dl (3.1-4.5); CREATININE 1.49 mg/dL (0.70-1.30); MAGNESIUM 2.3 mg/dL (1.5-2.1); PHOSPHOROUS 3.5 mg/dL (2.5-4.9); POTASSIUM 4.1 mmol/L (3.5-5.1); TOTAL PROTEIN 6.3 gm/dL (6.4-8.2)
[2017-07-21 05:57] LABS: BASO % 0.1 % (0.0-1.0); EOS # 0.3 10*3/uL (0.0-0.4); EOS % 3.8 % (1.0-4.0); HEMATOCRIT 29.6 % (42.0-52.0); HEMOGLOBIN 9.5 g/dl (14.0-18.0); LYMPH # 2.3 10*3/uL (1.3-4.4); LYMPH % 34.3 % (27.0-41.0); MEAN CELL VOLUME 93.4 fl (80.0-94.0); MEAN CORPUSCULAR HGB CONC 32.1 g/dl (33.0-37.0); MEAN PLATELET VOLUME 10.6 fl (9.6-12.3); MONO # 0.5 10*3/uL (0.1-1.0); MONO % 7.2 % (3.0-9.0); NEUT # 3.7 10*3/uL (2.3-7.9); NEUT % 53.9 % (47.0-73.0); PLATELET COUNT AUTOMATED 183 10*3/uL (130-400); RED BLOOD COUNT 3.17 10*6/uL (4.50-5.90); RED CELL DISTRI WIDTH 14.8 % (0-14.5); WHITE BLOOD COUNT 6.8 10*3/uL (4.8-10.8)
[2017-07-21 05:59] LABS: THYROID STIM HORMONE (HS) 2.26 uIU/ml (0.358-4.75)
--- NOTE | 2017-07-21 06:08 | NUR ---
MEDICATED WITH PRN TYLENOL ORDERED FOR C/O A HEADACHE AND BACK PAIN RATED AN 8.
[2017-07-21 06:14] LABS: ACT PARTIAL THROMBO TIME 26.6 SECONDS (20.8-31.5); INTERNATIONAL NORM RATIO 1.1 (2.0-3.5)
--- NOTE | 2017-07-21 06:47 | NUR ---
PATIENT SLEPT THROUGHOUT SHIFT. PLEASANT/COOPERATIVE WITH CARE. FLUIDS MAINTAINED PER ORDER. CALL LIGHT IN REACH.
--- NOTE | 2017-07-21 07:30 | NUR ---
Media Senior Recruiter in to talk to patient. Patient states lives at [facility] ALONE with . There are steps in the home. Physician: DR ALLEN Pharmacy: [facility] Home health services: NONE Patient's level of ADLs: INDEPENDENT Patient has working utilities: YES DME: [facility] Follow-up physician's appointment after d/c: PREFERS TO MAKE HIS OWN APPT Does patient want to access PORTAL?: Discharge plan HOME. ARYA HOLT
[2017-07-21 08:00] VITALS: BP 107/72
--- NOTE | 2017-07-21 09:00 | NUR ---
Patient established with Dr. cooper and Dr. Metz. Patient requests to have Dr. Cooper to read echo.
--- NOTE | 2017-07-21 09:11 | NUR ---
PHYSICAL THERAPY PAtient with ECHO at this time. Thank you for this referral. Aziza De León,PT
--- NOTE | 2017-07-21 10:59 | NUR ---
OT EVALUATION COMPLETED AT BS. OT MOD COMPLEXITY DETERMINED BY CHART REVIEW, ASSESSMENT AND PT INFORMATION
[2017-07-21 11:05] LABS: VITAMIN D, 25-HYDROXY 32.1 ng/mL (30-100)
--- NOTE | 2017-07-21 11:13 | NUR ---
REC'D CALL FROM [facility]. HE IS UNDER THEIR SERVICES AT HOME.
--- NOTE | 2017-07-21 11:33 | NUR ---
PHYSICAL THERAPY APtient evaluated on 4, full evaluation to follow. Continue with PT as per plan of care with fall, vertigo and acute debility precautions. MAy require SNF for impaired mobility, pending progress of vertigo. PAtient is moderate complexity via chart review, tests and evaluation: 88621. tTank you for this referral. jan De León,PT
[2017-07-21 12:00] VITALS: BP 126/56
--- NOTE | 2017-07-21 12:27 | NUR ---
office notified of consult
[2017-07-21 16:00] VITALS: BP 94/50
[2017-07-21 20:00] VITALS: BP 135/72
--- NOTE | 2017-07-21 20:32 | NUR ---
PATIENT RESTING IN BED WATCHING TV. ONLY COMPLAINTS OF A BRAUN AT AN 8. RESPIRATIONS EASY/REGULAR. NO SXS OF DISTRESS. CALL LIGHT IS IN REACH. WILL MONITOR.
--- NOTE | 2017-07-21 21:50 | NUR ---
PATIENT MEDICATED WITH PRN TYLENOL ORDERD FOR C/O A HEADACHE.
[2017-07-22] VITALS: BP 113/66
--- NOTE | 2017-07-22 03:18 | NUR ---
SLEEPING. NO SXS OF DISTRESS. RESPIRATIONS EASY/REG. CALL LIGHT IN REACH.
[2017-07-22 06:49] LABS: BASO % 0.3 % (0.0-1.0); EOS # 0.3 10*3/uL (0.0-0.4); EOS % 4.9 % (1.0-4.0); HEMATOCRIT 28.4 % (42.0-52.0); LYMPH # 2.1 10*3/uL (1.3-4.4); LYMPH % 35.6 % (27.0-41.0); MEAN CELL VOLUME 93.1 fl (80.0-94.0); MEAN CORPUSCULAR HGB 29.5 pg (27.0-31.0); MEAN CORPUSCULAR HGB CONC 31.7 g/dl (33.0-37.0); MEAN PLATELET VOLUME 10.9 fl (9.6-12.3); MONO # 0.4 10*3/uL (0.1-1.0); MONO % 6.4 % (3.0-9.0); NEUT % 52.5 % (47.0-73.0); PLATELET COUNT AUTOMATED 163 10*3/uL (130-400); RED BLOOD COUNT 3.05 10*6/uL (4.50-5.90); RED CELL DISTRI WIDTH 14.6 % (0-14.5); WHITE BLOOD COUNT 5.8 10*3/uL (4.8-10.8)
[2017-07-22 07:03] LABS: BUN 33 mg/dl (7-24); CHLORIDE 109 mmol/L (98-107); CREATININE 1.35 mg/dL (0.70-1.30); SODIUM 140 mmol/L (136-145)
[2017-07-22 08:00] VITALS: BP 133/67
--- NOTE | 2017-07-22 09:15 | NUR ---
PHONE CALL TO DR MARIA REQUESTING STRONGER PAIN MED, PERCOCET ORDERED.
--- NOTE | 2017-07-22 09:55 | NUR ---
PRN PAIN MED GIVEN FOR 9/10 HEADACHE PAIN.
--- NOTE | 2017-07-22 10:13 | NUR ---
ORTHOSTATIC BLOOD PRESSURES; RIGHT ARM, LAYING BP 125/53, HR 64 SITTING BP 114/66, HR 72 STANDING BP 116/60, HR 77 PT REPORTS DIZZINESS WITH SITTING AND STANDING.
--- NOTE | 2017-07-22 11:36 | NUR ---
PATIENT SEEN 1:1 THIS DATE. IDENTIFIED PATIENT BY NAME AND DATE OF . PATIENT COMPLETED STAND TOLERANCE ACTIVITY APPROX 1 MIN USE FWW SUPPORT CGA WHILE COMPLETING SINGLE ARM LIFTS WITH C/O FEELING LIGHT HEADED. PATIENT INSTRUCTED TO SIT ON BED WITH C/O FEELING LIGHT HEADED SUBSIDING. PATIENT COMPLETED BUE STR. SEATED EOB ALL PLANES AND ALL JOINTS X 15 REPS WITH F+ ACTIVITY TOLERANCE WITH REST BREAKS REQUIRED FOR OPTIMAL FUCNTIONAL PERFORAMCE. PATIENT COMPLETED ADL TRAINING SEATED EOB DOFFING GOWN/DONNING NEW GOWN SBA AND DOFFING/DONNING SOCKS SEATED EOB SBA. CONTINUE TOWARDS PLAN OF CARE. BECKY CASTRO/Woodrow
[2017-07-22 12:00] VITALS: BP 123/68
[2017-07-22] MEDS ORDERED: LISINOPRIL2.5 MG PO (12:27)
--- NOTE | 2017-07-22 13:49 | NUR ---
Discharge instructions reviewed with patient/family. Patient receptive and verbalizes understanding. Follow-up care arranged. Written instructions given to patient/family. BEATRICE HOFFMANN
--- NOTE | 2017-07-23 14:14 | NUR ---
OCCUPATIONAL THERAPY CO-SIGN I approve of the Occupational Therapy notes written above. SERGE SNELL OTR/Woodrow
== END 2017-07-22 13:10 | disposition home or self-care (01) | DRG 683 ==
LOC: ED 13:25 → 4E 15:43 → EDHOLD 15:43 → 4E 16:15
PROVIDERS: Emergency Medicine; Internal Medicine; ADMIT Internal Medicine
DX: N17.9 Acute kidney failure, unspecified (principal); E44.0 Moderate protein-calorie malnutrition; I31.3 Pericardial effusion (noninflammatory); I50.32 Chronic diastolic (congestive) heart failure; I13.0 Hypertensive heart and chronic kidney disease with heart failure and stage 1 through stage 4 chronic kidney disease, or unspecified chronic kidney disease; E11.22 Type 2 diabetes mellitus with diabetic chronic kidney disease; G44.301 Post-traumatic headache, unspecified, intractable; E86.0 Dehydration; D72.829 Elevated white blood cell count, unspecified; R74.8 Abnormal levels of other serum enzymes; R79.82 Elevated C-reactive protein (CRP); K21.9 Gastro-esophageal reflux disease without esophagitis; N40.0 Benign prostatic hyperplasia without lower urinary tract symptoms; M10.9 Gout, unspecified; I25.10 Atherosclerotic heart disease of native coronary artery without angina pectoris; G40.909 Epilepsy, unspecified, not intractable, without status epilepticus; N18.3 Chronic kidney disease, stage 3 (moderate); M43.10 Spondylolisthesis, site unspecified; M85.80 Other specified disorders of bone density and structure, unspecified site; J44.9 Chronic obstructive pulmonary disease, unspecified; F41.9 Anxiety disorder, unspecified; F32.9 Major depressive disorder, single episode, unspecified; E78.5 Hyperlipidemia, unspecified; G89.29 Other chronic pain; E11.65 Type 2 diabetes mellitus with hyperglycemia; D64.9 Anemia, unspecified; E66.09 Other obesity due to excess calories; Z96.641 Presence of right artificial hip joint; H05.223 Edema of bilateral orbit; I25.2 Old myocardial infarction; Z98.61 Coronary angioplasty status; Z86.73 Personal history of transient ischemic attack (TIA), and cerebral infarction without residual deficits; Z88.1 Allergy status to other antibiotic agents; Z89.412 Acquired absence of left great toe; Z87.891 Personal history of nicotine dependence; Z90.49 Acquired absence of other specified parts of digestive tract; Z79.4 Long term (current) use of insulin; Z80.0 Family history of malignant neoplasm of digestive organs; Z82.49 Family history of ischemic heart disease and other diseases of the circulatory system; Z82.3 Family history of stroke; Z83.3 Family history of diabetes mellitus; Z68.30 Body mass index [BMI] 30.0-30.9, adult; Z79.899 Other long term (current) drug therapy

== ENCOUNTER → 2017-07-28 | Outpatient (CLI) | payer MEDICARE ==
[2017-07-28 12:27] LABS: BASO % 0.4 % (0.0-1.0); EOS # 0.2 10*3/uL (0.0-0.4); HEMATOCRIT 30.9 % (42.0-52.0); HEMOGLOBIN 9.7 g/dl (14.0-18.0); LYMPH # 2.6 10*3/uL (1.3-4.4); LYMPH % 32.6 % (27.0-41.0); MEAN CELL VOLUME 92.8 fl (80.0-94.0); MEAN CORPUSCULAR HGB 29.1 pg (27.0-31.0); MEAN CORPUSCULAR HGB CONC 31.4 g/dl (33.0-37.0); MEAN PLATELET VOLUME 11.4 fl (9.6-12.3); MONO # 0.6 10*3/uL (0.1-1.0); MONO % 7.1 % (3.0-9.0); NEUT # 4.5 10*3/uL (2.3-7.9); NEUT % 56.5 % (47.0-73.0); PLATELET COUNT AUTOMATED 176 10*3/uL (130-400); RED BLOOD COUNT 3.33 10*6/uL (4.50-5.90); RED CELL DISTRI WIDTH 14.5 % (0-14.5); WHITE BLOOD COUNT 7.9 10*3/uL (4.8-10.8)
[2017-07-28 12:57] LABS: BUN 25 mg/dl (7-24); CHLORIDE 107 mmol/L (98-107); CREATININE 1.26 mg/dL (0.70-1.30); POTASSIUM 5.1 mmol/L (3.5-5.1); SGOT/AST 13 IU/L (3-35); SGPT/ALT 24 U/L (12-78); SODIUM 138 mmol/L (136-145)
[2017-07-28 12:59] LABS: TOTAL PROTEIN 6.4 gm/dL (6.4-8.2)
[2017-07-28 13:02] LABS: ALKALINE PHOSPHATASE 101 U/L (45-117)
== END | disposition home or self-care (01) ==
LOC: LAB 11:57
PROVIDERS: Internal Medicine
DX: E11.9 Type 2 diabetes mellitus without complications (principal); Z79.899 Other long term (current) drug therapy

== ENCOUNTER → 2017-07-29 | Outpatient (CLI) | payer MEDICARE | END | disposition home or self-care (01) | LOC: RESCLI | DX: E11.65 Type 2 diabetes mellitus with hyperglycemia (principal); G89.4 Chronic pain syndrome; D64.9 Anemia, unspecified; E83.42 Hypomagnesemia; K21.9 Gastro-esophageal reflux disease without esophagitis; E78.5 Hyperlipidemia, unspecified; G40.909 Epilepsy, unspecified, not intractable, without status epilepticus; F32.9 Major depressive disorder, single episode, unspecified; G44.309 Post-traumatic headache, unspecified, not intractable; E11.22 Type 2 diabetes mellitus with diabetic chronic kidney disease; N18.3 Chronic kidney disease, stage 3 (moderate); J44.9 Chronic obstructive pulmonary disease, unspecified; I12.9 Hypertensive chronic kidney disease with stage 1 through stage 4 chronic kidney disease, or unspecified chronic kidney disease ==

== ENCOUNTER 2017-07-31 12:45 | Emergency (ER) | payer MEDICARE ==
[~2017-07-31] VITALS: Wt 81.6 kg
--- NOTE | ~2017-07-31 | EKG ---
[place], [place] ELECTROCARDIOGRAM REPORT NAME: DEBORAH SANTACRUZ UNIT #: [id number] ROOM: DOCTOR: PAM ALVARADO MD BIRTHDATE: [birth year] DOS: 07/31/2017 TIME: 1245 hours. Normal sinus rhythm at 69 beats per minute. Low voltage in all leads. An old inferior wall FL. Possible old anterior wall FL/poor R wave progression. An abnormal ECG. Previous tracing is not available for comparison. PAM ALVARADO MD CM:EKGRPT:ELECTROCARDIOGRAM REPORT PAM ALVARADO MD
[2017-07-31 12:45] VITALS: BP 126/78
[2017-07-31 13:01] LABS: BASO % 0.4 % (0.0-1.0); EOS # 0.2 10*3/uL (0.0-0.4); EOS % 3.5 % (1.0-4.0); HEMATOCRIT 29.1 % (42.0-52.0); HEMOGLOBIN 9.3 g/dl (14.0-18.0); LYMPH # 2.2 10*3/uL (1.3-4.4); LYMPH % 32.4 % (27.0-41.0); MEAN CELL VOLUME 92.1 fl (80.0-94.0); MEAN CORPUSCULAR HGB 29.4 pg (27.0-31.0); MEAN PLATELET VOLUME 10.9 fl (9.6-12.3); MONO # 0.5 10*3/uL (0.1-1.0); MONO % 7.1 % (3.0-9.0); NEUT # 3.8 10*3/uL (2.3-7.9); NEUT % 56.3 % (47.0-73.0); PLATELET COUNT AUTOMATED 135 10*3/uL (130-400); RED BLOOD COUNT 3.16 10*6/uL (4.50-5.90); RED CELL DISTRI WIDTH 14.3 % (0-14.5); WHITE BLOOD COUNT 6.8 10*3/uL (4.8-10.8)
[2017-07-31 13:10] LABS: ACT PARTIAL THROMBO TIME 28.3 SECONDS (20.8-31.5); INTERNATIONAL NORM RATIO 1.2 (2.0-3.5)
[2017-07-31 13:19] LABS: BUN 26 mg/dl (7-24); CHLORIDE 105 mmol/L (98-107); CREATININE 1.23 mg/dL (0.70-1.30); POTASSIUM 5.1 mmol/L (3.5-5.1); SODIUM 136 mmol/L (136-145); TROPONIN I < 0.015 ng/ml (<0.045)
== END 2017-07-31 14:12 | disposition home or self-care (01) ==
LOC: ED 12:45
PROVIDERS: Emergency Medicine
DX: R07.9 Chest pain, unspecified (principal); R73.9 Hyperglycemia, unspecified; I25.10 Atherosclerotic heart disease of native coronary artery without angina pectoris; I13.0 Hypertensive heart and chronic kidney disease with heart failure and stage 1 through stage 4 chronic kidney disease, or unspecified chronic kidney disease; E11.22 Type 2 diabetes mellitus with diabetic chronic kidney disease; N18.3 Chronic kidney disease, stage 3 (moderate); I50.32 Chronic diastolic (congestive) heart failure; F14.10 Cocaine abuse, uncomplicated; K21.9 Gastro-esophageal reflux disease without esophagitis; M10.9 Gout, unspecified; J44.9 Chronic obstructive pulmonary disease, unspecified; E78.5 Hyperlipidemia, unspecified; M86.8X7 Other osteomyelitis, ankle and foot; G40.909 Epilepsy, unspecified, not intractable, without status epilepticus; Z79.4 Long term (current) use of insulin; Z86.73 Personal history of transient ischemic attack (TIA), and cerebral infarction without residual deficits; Z88.1 Allergy status to other antibiotic agents; Z79.899 Other long term (current) drug therapy; Z87.891 Personal history of nicotine dependence

== ENCOUNTER 2017-08-03 10:31 | Emergency (ER) | payer MEDICARE ==
[~2017-08-03] VITALS: Ht 182.8 cm; Wt 106.6 kg
[2017-08-03 11:20] VITALS: BP 133/59
[2017-08-03] MEDS ORDERED: CLINDAMYCIN HC300 MG PO (13:21)
== END 2017-08-03 14:27 | disposition home or self-care (01) ==
LOC: ED 10:31
DX: L03.011 Cellulitis of right finger (principal); F17.200 Nicotine dependence, unspecified, uncomplicated; E11.65 Type 2 diabetes mellitus with hyperglycemia; I12.9 Hypertensive chronic kidney disease with stage 1 through stage 4 chronic kidney disease, or unspecified chronic kidney disease; E11.22 Type 2 diabetes mellitus with diabetic chronic kidney disease; N18.3 Chronic kidney disease, stage 3 (moderate); I25.10 Atherosclerotic heart disease of native coronary artery without angina pectoris; J44.9 Chronic obstructive pulmonary disease, unspecified; K21.9 Gastro-esophageal reflux disease without esophagitis; M10.9 Gout, unspecified; E78.5 Hyperlipidemia, unspecified; E66.9 Obesity, unspecified; G40.909 Epilepsy, unspecified, not intractable, without status epilepticus; Z86.73 Personal history of transient ischemic attack (TIA), and cerebral infarction without residual deficits; Z95.5 Presence of coronary angioplasty implant and graft; Z96.641 Presence of right artificial hip joint; Z89.412 Acquired absence of left great toe; Z89.432 Acquired absence of left foot; Z98.890 Other specified postprocedural states; Z79.899 Other long term (current) drug therapy; Z88.3 Allergy status to other anti-infective agents; Z88.1 Allergy status to other antibiotic agents

== ENCOUNTER 2017-08-12 12:41 | Inpatient (IN) | payer MEDICARE ==
[~2017-08-12] VITALS: Ht 182.8 cm; Wt 111.1 kg
[2017-08-12] VITALS (7 sets, daily range): BP systolic 106–153; BP diastolic 58–73
--- NOTE | ~2017-08-12 | EKG ---
[place], [place] ELECTROCARDIOGRAM REPORT NAME: DEBORAH SANTACRUZ UNIT #: [id number] ROOM: 428 DOCTOR: PAM ALVARADO MD BIRTHDATE: [birth year] DOS: 08/12/2017 TIME: 1321 hours. Normal sinus rhythm at 82 beats per minute. Consider an old inferior wall myocardial infarction and an old anterior wall myocardial infarction. Low voltage ECG. An abnormal ECG. No significant ECG done previously this year. PAM ALVARADO MD CM:EKGRPT:ELECTROCARDIOGRAM REPORT 1255 1406 PAM ALVARADO MD
--- NOTE | ~2017-08-12 | O ---
[place], [place] OPERATIVE NOTE NAME: DEBORAH SANTACRUZ UNIT #: [id number] ROOM: 428 DOCTOR: BETHEL CHAO MD BIRTHDATE: [birth year] DOS: HISTORY OF PRESENT ILLNESS: This is a 67-year-old patient who has presented with chief complaint of dysphagia, undergoing investigation. I have been asked for assessment of the patient regarding persistent dysphagia and dyspepsia. PAST MEDICAL HISTORY: Associated with congestive heart failure, morbid obesity, benign prostatic hypertrophy, COPD, diabetes mellitus, gastroesophageal reflux symptomatology. PAST SURGICAL HISTORY: Cholecystectomy, total right hip, rotator cuff, amputation of multiple fingers, lower extremities. SOCIAL HISTORY: Six packs per week, beer drinker, cocaine user, past smoker. FAMILY HISTORY: Noncontributory. ALLERGIES: VANCOMYCIN, PIPERACILLIN AND TAZOBACTAM and DOXYCYCLINE. MEDICATIONS: List has been reviewed. PROCEDURE: Today's procedure part of investigation is panendoscopy plus biopsy and balloon dilation of the esophagus. PREMEDICATION: Versed and Diprivan. SCOPE: Olympus forward-viewing gastroscope Q10 video. REPORT: After putting the patient in the left lateral position and after application of lubricant to the scope, the scope was introduced. Thereafter, under direct visualization, I advanced through the length of esophagus without difficulty. Ulceration of the mid esophagus with ulcer plaques was photographed, biopsied from one of the ulcer scar was obtained. Gastric pouch was entered. Gastritis, gastric erosions noted. Antral biopsy obtained. Duodenal bulb, second and third part within normal limits. Bile reflux, gastritis documented with photographic series The patient extubated, tolerated procedure well. IMPRESSION: Multiple gastric erosions, status post biopsy, esophageal ulcer secondary to reflux, gastroesophageal reflux disease (GERD). PLAN AND DISCUSSION: Protonix 40 mg daily, Carafate 2 grams slurry q.i.d. while he is inpatient, addition of Reglan 5 mg a.c. dinner to improve his gastric motility and clinical reassessment again. Thank you very much indeed for kind referral. [place], [place] OPERATIVE NOTE NAME: DEBORAH SANTACRUZ UNIT #: [id number] ROOM: 428 DOCTOR: BETHEL CHAO MD BIRTHDATE: [birth year] BETHEL CHAO MD CM:PETERORD:OPERATIVE NOTE 1513 30 BETHEL CHAO MD 08/14/171929 interface
--- NOTE | ~2017-08-12 | CON ---
[place], [place] REPORT OF CONSULTATION NAME: DEBORAH SANTACRUZ [facility] #: [id number] UNIT #: [id number] ROOM: 428 DOCTOR: PAM ALVARADO MD BIRTHDATE: [birth year] DOS: 08/14/2017 HISTORY OF PRESENT ILLNESS: This is a 67-year-old -[place] African man with a history of coronary artery disease. I stented his right coronary artery distally a couple of times and heart cath earlier this year had demonstrated widely patent stents, normal LV function and there was no significant stenosis of the other vessels. He has chronic chest pain, at least recurrent chest pains that has resolved in numerous hospitalizations. He was admitted to the hospital because of a burning sensation in the retrosternal area and also some left-sided chest pain. To me, he tells me it radiates to the right side of the chest, but the attending physician's history and physical examination mentions left-sided chest pain radiating into the left arm. He also had some nausea and retching, but did not vomit anything. He claims his appetite is not good. He has not had any dizziness or loss of consciousness, no swelling in the legs and he has not had difficulty breathing at night. PAST MEDICAL HISTORY: Includes recurrent addiction with cocaine; he has used it this year. He has COPD, BPH, diabetes mellitus, GERD, gastric ulcers, hypothyroidism and coronary artery disease with normal LV systolic function. HOME MEDICATIONS: Include albuterol HFA, alprazolam, amlodipine, atorvastatin, clindamycin, Depakote, Cymbalta, ferrous sulfate, gabapentin, lisinopril, mag oxide, metoprolol tartrate, Protonix, Risperdal, insulin lispro and sublingual nitroglycerin. He takes Levemir as well. PHYSICAL EXAMINATION: GENERAL: Reveals a patient who is alert, oriented. His speech is slurred as it has been for years. His complexion is fine. He is not jaundiced. He is not tachypneic. VITAL SIGNS: Pulse is 64 and regular, blood pressure 150/67. NECK: JVP difficult to assess, but appears to be normal. LUNGS: Auscultation reveals fairly good breath sounds without any adventitious sounds. EXTREMITIES: There is no edema in the lower extremities and pulses are fine. An ECG showed normal sinus rhythm with an old inferior wall DC and probably old anterior wall DC, although anterior wall has shown normal motion on echocardiogram. IMPRESSION: This patient has coronary artery disease and has had chest pain; however, recent diagnostic heart catheterization had demonstrated patent coronary arteries with patent coronary stents and normal left ventricular systolic function. He has ruled out for an acute myocardial infarction. GI etiology being sought with an upper EGD, which I think can be performed at average risk for perioperative cardiac complications. I thank you for this consult. [place], [place] REPORT OF CONSULTATION NAME: DEBORAH SANTACRUZ [id number] UNIT #: [id number] ROOM: [facility] DOCTOR: PAM ALVARADO MD BIRTHDATE: [birth year] PAM ALVARADO MD CM:CONSTR:REPORT OF CONSULTATION 1355 08/15/17 0229 interface
[~2017-08-12 12:41] MED LIST changes: +LEVEMIR FL100 UNIT/1 SQ
[2017-08-12 13:10] LABS: BASO % 0.7 % (0.0-1.0); EOS # 0.4 10*3/uL (0.0-0.4); HEMATOCRIT 30.8 % (42.0-52.0); HEMOGLOBIN 9.9 g/dl (14.0-18.0); LYMPH # 2.6 10*3/uL (1.3-4.4); MEAN CELL VOLUME 89.5 fl (80.0-94.0); MEAN CORPUSCULAR HGB 28.8 pg (27.0-31.0); MEAN CORPUSCULAR HGB CONC 32.1 g/dl (33.0-37.0); MEAN PLATELET VOLUME 10.3 fl (9.6-12.3); MONO # 0.4 10*3/uL (0.1-1.0); MONO % 6.8 % (3.0-9.0); NEUT # 2.6 10*3/uL (2.3-7.9); NEUT % 42.2 % (47.0-73.0); PLATELET COUNT AUTOMATED 204 10*3/uL (130-400); RED BLOOD COUNT 3.44 10*6/uL (4.50-5.90); RED CELL DISTRI WIDTH 14.1 % (0-14.5)
[2017-08-12 13:20] LABS: ACT PARTIAL THROMBO TIME 29.3 SECONDS (20.8-31.5); INTERNATIONAL NORM RATIO 1.2 (2.0-3.5)
[2017-08-12 13:27] LABS: ALBUMIN 2.9 gm/dl (3.1-4.5); ALKALINE PHOSPHATASE 109 U/L (45-117); BUN 19 mg/dl (7-24); CHLORIDE 109 mmol/L (98-107); CREATININE 1.37 mg/dL (0.70-1.30); LIPASE 280 U/L (73-393); MAGNESIUM 1.1 mg/dL (1.5-2.1); POTASSIUM 4.9 mmol/L (3.5-5.1); SGOT/AST 14 IU/L (3-35); SGPT/ALT 20 U/L (12-78); SODIUM 141 mmol/L (136-145); TOTAL PROTEIN 6.2 gm/dL (6.4-8.2)
[2017-08-12 13:28] LABS: TROPONIN I < 0.015 ng/ml (<0.045)
--- NOTE | 2017-08-12 13:36 | NUR ---
REPORT FROM [facility]. NO C/O PT ALERT,PLEASANT. VITALS STABLE.---RONNI MAHONEY RN
[2017-08-12 13:37] LABS: VALPROIC ACID (DEPAKENE) 17.1 ug/ml (50-100)
--- NOTE | 2017-08-12 14:25 | NUR ---
NO C/O RESP EASY. PULSE OX 99 ON 2L NOW. HE IS TALKING WITH HIS VISITOR---RONNI MAHONEY RN
--- NOTE | 2017-08-12 15:40 | NUR ---
PT MEDICATED WITH TYLENOL 975 MG PO PER MD ORDER FOR C/O HEADACHE.---RONNI MAHONEY RN
--- NOTE | 2017-08-12 16:35 | NUR ---
A 67, admitted to , under the services of STEVEN Benntet MD with a diagnosis of CHEST PAIN R/O CA. Chief complaint is SHORTNESS OF BREATH STARTE A FEW HOURS AGO AND LEFT SHOULDER PAIN. Patient arrived via stretcher from ER. Monitor applied. Initial assessment completed. Vital signs taken and recorded. STEVEN BENNETT MD notified of admission to the unit. Orders received. See assessment for past medical history, medications and allergies. Patient and/or family oriented to unit. [address] visitation policy reviewed. Clothing/patient valuable form completed. CHRISTOPH APPIAH
--- NOTE | 2017-08-12 16:45 | NUR ---
ADVISED PATIENT TO NOT BE WALKING IN THE [place] AND TO USE CALL LIGHT. BED ALARM IS ON. PATIENT IS VERY UNSTEADY ON HIS FEET.
[2017-08-12] MEDS ORDERED: HUMALOG KW200 UNIT/1 SQ (16:52)
[2017-08-12] MEDS ORDERED: PROZAC10 MG PO (16:54)
[2017-08-12] MEDS ORDERED: FERROUS SULFAT325 MG PO (17:38)
--- NOTE | 2017-08-12 17:43 | NUR ---
DR BARNARD AWARE THAT MEDS ARE VERIFIED PER PHARMACY
--- NOTE | 2017-08-12 20:00 | NUR ---
PT RESTING QUIETLY IN BED. NO C/O VOICED. PLEASANT AND COOPERATIVE. CALL LIGHT IN REACH.
[2017-08-13] VITALS: BP 148/74
--- NOTE | 2017-08-13 04:25 | NUR ---
PATIENT RESTING IN BED WITH EYES CLOSED. NO SIGNS OR SYMPTOMS OF DISTRESS NOTED. WILL CONTINUE TO MONITOR. CALL LIGHT IN REACH.
[2017-08-13 06:04] LABS: BASO % 0.6 % (0.0-1.0); EOS # 0.2 10*3/uL (0.0-0.4); EOS % 4.7 % (1.0-4.0); HEMATOCRIT 28.6 % (42.0-52.0); LYMPH # 2.2 10*3/uL (1.3-4.4); LYMPH % 43.2 % (27.0-41.0); MEAN CELL VOLUME 90.2 fl (80.0-94.0); MEAN CORPUSCULAR HGB 28.4 pg (27.0-31.0); MEAN CORPUSCULAR HGB CONC 31.5 g/dl (33.0-37.0); MEAN PLATELET VOLUME 10.8 fl (9.6-12.3); MONO # 0.5 10*3/uL (0.1-1.0); NEUT # 2.1 10*3/uL (2.3-7.9); NEUT % 41.3 % (47.0-73.0); PLATELET COUNT AUTOMATED 174 10*3/uL (130-400); RED BLOOD COUNT 3.17 10*6/uL (4.50-5.90); RED CELL DISTRI WIDTH 14.2 % (0-14.5); WHITE BLOOD COUNT 5.1 10*3/uL (4.8-10.8)
[2017-08-13 06:29] LABS: ALBUMIN 2.7 gm/dl (3.1-4.5); BUN 19 mg/dl (7-24); CHLORIDE 112 mmol/L (98-107); MAGNESIUM 1.6 mg/dL (1.5-2.1); POTASSIUM 4.9 mmol/L (3.5-5.1); SODIUM 142 mmol/L (136-145); TOTAL PROTEIN 5.6 gm/dL (6.4-8.2)
[2017-08-13 06:35] LABS: ALKALINE PHOSPHATASE 97 U/L (45-117); CHOLESTEROL 105 mg/dL (<200); CREATININE 1.15 mg/dL (0.70-1.30); HDL CHOLESTEROL 38 mg/dl (40-60); LDL CHOLESTEROL 23 mg/dL (9-159); SGOT/AST 12 IU/L (3-35); SGPT/ALT 18 U/L (12-78); TRIGLYCERIDES 222 mg/dl (<150); VLDL CHOLESTEROL 44 mg/dL (6-40)
[2017-08-13 08:00] VITALS: BP 128/76
--- NOTE | 2017-08-13 08:21 | NUR ---
PATIENT IS RESTING COMFORTABLY IN BED. PATIENT HAS HAD CHEST PAIN THAT RADIATES TO THE LEFT SHOULDER, BUT DENIES ANY PAIN AT THIS TIME. PATIENT DOES NOTE HAVING SOME INDIGESTION. SKIN IS WARM, DRY, AND INTACT WITH NO OPEN WOUNDS. PATIENT DENIES ANY SOB WITH 2LPM VIA NC. SEE SHIFT ASSESSMENT. CALL LIGHT IS WITHIN REACH.
--- NOTE | 2017-08-13 08:30 | NUR ---
[employer] in to talk to patient. Patient states lives at [facility] ALONE with . There are 0 steps in the home. Physician: DR ALLEN Pharmacy: Home health services: [facility] FILLS HIS MED CONTAINERS. AID 3X WEEK Patient's level of ADLs: MINIMAL ASSIST Patient has working utilities: YES DME: [facility] Follow-up physician's appointment after d/c: PREFERS TO MAKE HIS OWN APPT Does patient want to access PORTAL?: Discharge plan HOME. ARYA HOLT
[2017-08-13 12:00] VITALS: BP 145/76
--- NOTE | 2017-08-13 12:41 | NUR ---
PATIENT RESTING IN BED. PATIENT IS HAVING CHEST DISCOMFORT BUT SAYS IT FEELS LIKE INDIGESTION. PATIENT WAS GIVEN MAALOX AND PROTONIX PER PHYSICIAN ORDER. PATIENT IS ALERT AND ORIENTED BUT UPPER [place]. CALL LIGHT SYSTEM REINFORCED.
--- NOTE | 2017-08-13 13:00 | NUR ---
PATIENT STARTED HAVING SEVERE CHEST PAIN RATED A 9/10 WITH A COUGHING FIT THAT WAS EXACERBATING THE PAIN. PATIENT WAS GIVEN 50MG ULTRAM. WILL CONTINUE TO MONITOR AND RE-EVALUATE EFFECTIVENESS.
--- NOTE | 2017-08-13 13:48 | NUR ---
PAIN MEDICATION HAS BEEN EFFECTIVE EVIDENCE BY PATIENT RESTING COMFORTABLY IN BED WITHOUT ANY DISCOMFORT. WILL CONTINUE TO MONITOR.
--- NOTE | 2017-08-13 13:51 | NUR ---
DR. CHAO NOTIFIED OF CONUSLT. NEW ORDERS GIVEN.
[2017-08-13 16:00] VITALS: BP 173/90
--- NOTE | 2017-08-13 18:43 | NUR ---
PATIENT IS RESTING COMFORTABLY IN BED. PATIENT IS AWAKE AND ALERT BUT IS [place] AND HAS OCCASIONAL FORGETFULNESS. PATIENT HAS HAS MULTIPLE COMPLAINTS OF INDIGESTION AND PAIN THAT HAS BEEN UNRELIEVED WITH MAALOX, CARAFATE, AND PROTONIX. PATIENT HAS BEEN ABLE TO SLEEP THROUGHOUT THE DAY AND HAS BEEN COOPERATIVE DURING ASSESSMENT. CALL LIGHT IS WITHIN REACH. SEE SHIFT ASSESSMENT.
[2017-08-13 20:00] VITALS: BP 162/70
[2017-08-14] VITALS (7 sets, daily range): BP systolic 123–150; BP diastolic 62–71
--- NOTE | 2017-08-14 04:04 | NUR ---
PATIENT RESTING IN BED WITH EYES CLOSED. NO SIGNS OR SYMPTOMS OF DISTRESS NOTED. NO COMPLAINTS OF PAIN OR DISCOMFORT VOICED THROUGHOUT SHIFT. WILL CONTINUE TO MONITOR. CALL LIGHT IN REACH.
--- NOTE | 2017-08-14 10:00 | NUR ---
Sitting up in chair. Remains NPO for EGD. Elsa ARAUZ
--- NOTE | 2017-08-14 11:50 | NUR ---
DEXTROSE GIVEN FOR BSG OF 50. PT ASYMPTOMATIC. WILL MONITOR.
--- NOTE | 2017-08-14 12:20 | NUR ---
OFF FLOOR TO SURGERY.
--- NOTE | 2017-08-14 14:03 | NUR ---
DR. ALVARADO NOTIFIED OF CONSULT.
[2017-08-14] MEDS ORDERED: CLINDAMYCIN HC300 MG PO (15:51)
[2017-08-14] MEDS ORDERED: Synthroid,Levo25 MCG PO (15:51)
[2017-08-14] MEDS ORDERED: METOCLOPRAMIDE H5 M1 PO (15:51)
--- NOTE | 2017-08-14 16:02 | NUR ---
DISCHARGE INSTRUCTIONS REVIEWED WITH PT AND HE VERBALIZES GOOD UNDERSTANDING
--- NOTE | 2017-08-14 16:14 | NUR ---
DC TO HOME PT DROVE HERE HISSELF
[2017-08-15] MEDS ORDERED: NAPROSYN500 MG PO (15:13)
[2017-08-15] MEDS ORDERED: NORCO 5-325 TA1 EACH PO (15:13)
== END 2017-08-14 16:14 | disposition home or self-care (01) | DRG 392 ==
LOC: ED 12:41 → EDHOLD 15:06 → 4E 15:06
PROVIDERS: Emergency Medicine; Internal Medicine Hospice and Palliative Medicine; ADMIT Internal Medicine
DX: K21.9 Gastro-esophageal reflux disease without esophagitis (principal); E44.0 Moderate protein-calorie malnutrition; E87.2 Acidosis; I50.32 Chronic diastolic (congestive) heart failure; E11.22 Type 2 diabetes mellitus with diabetic chronic kidney disease; I13.0 Hypertensive heart and chronic kidney disease with heart failure and stage 1 through stage 4 chronic kidney disease, or unspecified chronic kidney disease; L03.116 Cellulitis of left lower limb; K22.10 Ulcer of esophagus without bleeding; I25.2 Old myocardial infarction; E83.42 Hypomagnesemia; F32.9 Major depressive disorder, single episode, unspecified; N40.0 Benign prostatic hyperplasia without lower urinary tract symptoms; I25.119 Atherosclerotic heart disease of native coronary artery with unspecified angina pectoris; E11.65 Type 2 diabetes mellitus with hyperglycemia; E66.09 Other obesity due to excess calories; R07.89 Other chest pain; D64.9 Anemia, unspecified; F41.1 Generalized anxiety disorder; G89.29 Other chronic pain; M51.36 Other intervertebral disc degeneration, lumbar region; G40.909 Epilepsy, unspecified, not intractable, without status epilepticus; K29.70 Gastritis, unspecified, without bleeding; N18.3 Chronic kidney disease, stage 3 (moderate); J44.9 Chronic obstructive pulmonary disease, unspecified; Z96.641 Presence of right artificial hip joint; M10.9 Gout, unspecified; E78.5 Hyperlipidemia, unspecified; Z68.33 Body mass index [BMI] 33.0-33.9, adult; Z90.49 Acquired absence of other specified parts of digestive tract; Z89.412 Acquired absence of left great toe; Z88.1 Allergy status to other antibiotic agents; Z88.0 Allergy status to penicillin; Z88.8 Allergy status to other drugs, medicaments and biological substances; Z79.4 Long term (current) use of insulin; Z79.899 Other long term (current) drug therapy; Z89.422 Acquired absence of other left toe(s); Z72.89 Other problems related to lifestyle; Z82.49 Family history of ischemic heart disease and other diseases of the circulatory system; Z83.3 Family history of diabetes mellitus; Z80.9 Family history of malignant neoplasm, unspecified; Z82.3 Family history of stroke; E87.8 Other disorders of electrolyte and fluid balance, not elsewhere classified

== ENCOUNTER 2017-08-15 13:01 | Emergency (ER) | payer MEDICARE ==
[~2017-08-15] VITALS: Ht 182.8 cm; Wt 111.1 kg
[2017-08-15 13:15] VITALS: BP 171/89
[2017-08-15] MEDS ORDERED: NAPROSYN500 MG PO (15:13)
[2017-08-15] MEDS ORDERED: NORCO 5-325 TA1 EACH PO (15:13)
== END 2017-08-15 15:18 | disposition home or self-care (01) ==
LOC: ED 13:01
DX: M70.22 Olecranon bursitis, left elbow (principal); R03.0 Elevated blood-pressure reading, without diagnosis of hypertension; Z87.891 Personal history of nicotine dependence; Z79.899 Other long term (current) drug therapy; Z88.1 Allergy status to other antibiotic agents

== ENCOUNTER → 2017-08-15 | Outpatient (CLI) | payer OTHER, MEDICARE ==
[~2017-08-15] MED LIST changes: +FERROUS SULFAT325 MG PO; +HUMALOG KW200 UNIT/1 SQ; +METOCLOPRAMIDE H5 M1 PO; +PROZAC10 MG PO; +Synthroid,Levo25 MCG PO
== END | disposition home or self-care (01) ==
LOC: US 08:20
DX: Z13.6 Encounter for screening for cardiovascular disorders (principal); T65.294S Toxic effect of other tobacco and nicotine, undetermined, sequela; Z72.0 Tobacco use

== ENCOUNTER → 2017-08-17 | Outpatient (CLI) | payer MEDICARE | END | disposition home or self-care (01) | LOC: RESCLI 01:30 | DX: Z09 Encounter for follow-up examination after completed treatment for conditions other than malignant neoplasm (principal); E11.65 Type 2 diabetes mellitus with hyperglycemia; K22.10 Ulcer of esophagus without bleeding; G89.4 Chronic pain syndrome; K21.0 Gastro-esophageal reflux disease with esophagitis; R07.89 Other chest pain; E78.5 Hyperlipidemia, unspecified; I10 Essential (primary) hypertension; E03.9 Hypothyroidism, unspecified; J44.9 Chronic obstructive pulmonary disease, unspecified; Z79.4 Long term (current) use of insulin ==

== ENCOUNTER 2017-08-25 17:22 | Emergency (ER) | payer MEDICARE ==
[~2017-08-25] VITALS: Wt 113.4 kg
[2017-08-25 17:41] LABS: BASO # 0.1 10*3/uL (0.0-0.1); BASO % 0.5 % (0.0-1.0); EOS # 0.4 10*3/uL (0.0-0.4); EOS % 4.3 % (1.0-4.0); HEMATOCRIT 34.1 % (42.0-52.0); HEMOGLOBIN 11.1 g/dl (14.0-18.0); LYMPH # 3.3 10*3/uL (1.3-4.4); LYMPH % 34.4 % (27.0-41.0); MEAN CELL VOLUME 88.3 fl (80.0-94.0); MEAN CORPUSCULAR HGB 28.8 pg (27.0-31.0); MEAN CORPUSCULAR HGB CONC 32.6 g/dl (33.0-37.0); MEAN PLATELET VOLUME 10.9 fl (9.6-12.3); MONO # 0.6 10*3/uL (0.1-1.0); MONO % 6.2 % (3.0-9.0); NEUT # 5.1 10*3/uL (2.3-7.9); NEUT % 53.9 % (47.0-73.0); PLATELET COUNT AUTOMATED 175 10*3/uL (130-400); RED BLOOD COUNT 3.86 10*6/uL (4.50-5.90); RED CELL DISTRI WIDTH 15.6 % (0-14.5); WHITE BLOOD COUNT 9.5 10*3/uL (4.8-10.8)
[2017-08-25 17:52] LABS: ACT PARTIAL THROMBO TIME 27.7 SECONDS (20.8-31.5); INTERNATIONAL NORM RATIO 1.1 (2.0-3.5)
[2017-08-25 17:58] VITALS: BP 173/91
[2017-08-25 17:58] LABS: ALBUMIN 3.6 gm/dl (3.1-4.5); ALKALINE PHOSPHATASE 113 U/L (45-117); BUN 30 mg/dl (7-24); CHLORIDE 107 mmol/L (98-107); CREATININE 1.49 mg/dL (0.70-1.30); MAGNESIUM 1.2 mg/dL (1.5-2.1); POTASSIUM 4.7 mmol/L (3.5-5.1); SGOT/AST 11 IU/L (3-35); SGPT/ALT 18 U/L (12-78); SODIUM 138 mmol/L (136-145); TOTAL PROTEIN 7.3 gm/dL (6.4-8.2)
[2017-08-25 18:01] LABS: TROPONIN I < 0.015 ng/ml (<0.045)
[2017-08-25] MEDS ORDERED: CARAFATE1 G1 PO (18:55)
== END 2017-08-25 18:58 | disposition home or self-care (01) ==
LOC: ED 17:22
PROVIDERS: Emergency Medicine
DX: K21.9 Gastro-esophageal reflux disease without esophagitis (principal); Z95.5 Presence of coronary angioplasty implant and graft; Z87.891 Personal history of nicotine dependence; E11.65 Type 2 diabetes mellitus with hyperglycemia; Z79.4 Long term (current) use of insulin; Z86.73 Personal history of transient ischemic attack (TIA), and cerebral infarction without residual deficits; I12.9 Hypertensive chronic kidney disease with stage 1 through stage 4 chronic kidney disease, or unspecified chronic kidney disease; N18.3 Chronic kidney disease, stage 3 (moderate); I25.10 Atherosclerotic heart disease of native coronary artery without angina pectoris; N40.0 Benign prostatic hyperplasia without lower urinary tract symptoms; Z88.1 Allergy status to other antibiotic agents

== ENCOUNTER → 2017-09-14 | Outpatient (CLI) | payer MEDICARE ==
[2017-09-14 15:23] LABS: FREE T4 0.82 ng/dl (0.76-1.46)
== END ==
LOC: RESCLI 01:57 → LAB 01:57 → RESCLI 13:38
PROVIDERS: Internal Medicine
DX: E03.9 Hypothyroidism, unspecified (principal); I10 Essential (primary) hypertension; E10.9 Type 1 diabetes mellitus without complications; I25.10 Atherosclerotic heart disease of native coronary artery without angina pectoris

== ENCOUNTER 2017-10-02 18:23 | Inpatient (IN) | payer MEDICARE ==
[~2017-10-02] VITALS: Ht 182.8 cm; Wt 111.1 kg
--- NOTE | ~2017-10-02 | EKG ---
[place], [place] ELECTROCARDIOGRAM REPORT NAME: DEBORAH SANTACRUZ UNIT #: [id number] ROOM: 532 DOCTOR: PAM ALVARADO MD BIRTHDATE: [birth year] DOS: 10/04/2017 TIME: 1435 hours. 1. Normal sinus rhythm at 65 beats per minute. 2. An old inferior wall [place]. 3. Possible old anteroseptal myocardial infarction. 4. Low voltage in limb leads. 5. No significant change from ECG of the previous day. PAM ALVARADO MD CM:EKGRPT:ELECTROCARDIOGRAM REPORT 1206 1341 PAM ALVARADO MD
--- NOTE | ~2017-10-02 | EKG ---
[place], [place] ELECTROCARDIOGRAM REPORT NAME: DEBORAH SANTACRUZ UNIT #: [id number] ROOM: 532 DOCTOR: PAM ALVARADO MD BIRTHDATE: [birth year] DOS: 10/03/2017 TIME: 0010 hours. 1. Normal sinus rhythm at 75 beats per minute. 2. An old inferior wall VA. 3. Also consider an old anteroseptal myocardial infarction. 4. When compared with an ECG of the previous day, no significant change has become apparent. PAM ALVARADO MD CM:EKGRPT:ELECTROCARDIOGRAM REPORT 1202 1254 PAM ALVARADO MD
--- NOTE | ~2017-10-02 | EKG ---
[place], [place] ELECTROCARDIOGRAM REPORT NAME: DEBORAH SANTACRUZ UNIT #: [id number] ROOM: 532 DOCTOR: PAM ALVARADO MD BIRTHDATE: [birth year] DOS: 10/02/2017 TIME: 2115 hours. 1. Normal sinus rhythm at 88 beats per minute. 2. An old inferior wall myocardial infarction. 3. Also an old anterior wall myocardial infarction. 4. No significant change from the ECG done at 1827 hours of the same day. PAM ALVARADO MD CM:EKGRPT:ELECTROCARDIOGRAM REPORT 1202 1251 PAM ALVARADO MD
--- NOTE | ~2017-10-02 | EKG ---
[place], [place] ELECTROCARDIOGRAM REPORT NAME: DEBORAH SANTACRUZ UNIT #: [id number] ROOM: [facility] DOCTOR: PAM ALVARADO MD BIRTHDATE: [birth year] DOS: 10/03/2017 TIME: 1809 hours. 1. Normal sinus rhythm at 77 beats per minute. 2. Low voltage in precordial leads. 3. An old inferior wall UT. 4. Possible old anteroseptal myocardial infarction. 5. Old ____ anteroseptal myocardial infarction. 6. No significant change from an ECG done 18 hours earlier. PAM ALVARADO MD CM:EKGRPT:ELECTROCARDIOGRAM REPORT 1202 1256 PAM ALVARADO MD
--- NOTE | ~2017-10-02 | EKG ---
[place], [place] ELECTROCARDIOGRAM REPORT NAME: DEBORAH SANTACRUZ UNIT #: [id number] ROOM: 532 DOCTOR: PAM ALVARADO MD BIRTHDATE: [birth year] DOS: 10/02/2017 TIME: 1827 hours. 1. Normal sinus rhythm at 84 beats per minute. 2. An old anterior wall UT. 3. Also consider an old ____ anterior wall myocardial infarction. 4. No previous tracing is available for comparison. PAM ALVARADO MD CM:EKGRPT:ELECTROCARDIOGRAM REPORT 1202 1249 PAM ALVARADO MD
[2017-10-02 18:35] VITALS: BP 178/92
[2017-10-02 18:42] LABS: BASO % 0.3 % (0.0-1.0); EOS # 0.3 10*3/uL (0.0-0.4); EOS % 3.6 % (1.0-4.0); HEMOGLOBIN 12.5 g/dl (14.0-18.0); LYMPH # 2.7 10*3/uL (1.3-4.4); LYMPH % 30.2 % (27.0-41.0); MEAN CELL VOLUME 87.4 fl (80.0-94.0); MEAN CORPUSCULAR HGB 28.7 pg (27.0-31.0); MEAN CORPUSCULAR HGB CONC 32.9 g/dl (33.0-37.0); MONO # 0.6 10*3/uL (0.1-1.0); MONO % 6.4 % (3.0-9.0); NEUT # 5.2 10*3/uL (2.3-7.9); NEUT % 58.2 % (47.0-73.0); PLATELET COUNT AUTOMATED 170 10*3/uL (130-400); RED BLOOD COUNT 4.35 10*6/uL (4.50-5.90); RED CELL DISTRI WIDTH 15.6 % (0-14.5)
[2017-10-02 18:52] LABS: ACT PARTIAL THROMBO TIME 25.3 SECONDS (20.8-31.5); INTERNATIONAL NORM RATIO 1.1 (2.0-3.5)
[2017-10-02 18:58] LABS: ALBUMIN 3.6 gm/dl (3.1-4.5); ALKALINE PHOSPHATASE 137 U/L (45-117); BUN 30 mg/dl (7-24); CHLORIDE 98 mmol/L (98-107); CREATININE 1.67 mg/dL (0.70-1.30); POTASSIUM 4.3 mmol/L (3.5-5.1); SGOT/AST 19 IU/L (3-35); SGPT/ALT 45 U/L (12-78); SODIUM 133 mmol/L (136-145); TOTAL PROTEIN 7.3 gm/dL (6.4-8.2)
[2017-10-02 19:02] LABS: TROPONIN I < 0.015 ng/ml (<0.045)
[2017-10-02 19:21] VITALS: BP 140/80
[2017-10-02 19:23] LABS: BILIRUBIN NEGATIVE (NEGATIVE); BLOOD 1+ (NEGATIVE); CLARITY SL CLOUDY (CLEAR); COLOR YELLOW (YELLOW); GLUCOSE 3+ (NEGATIVE); KETONE NEGATIVE (NEGATIVE); LEUKO ESTERASE NEGATIVE (NEGATIVE); NITRITE NEGATIVE (NEGATIVE); SPECIFIC GRAVITY 1.025 (1.005-1.030); UROBILINOGEN 0.2 E.U./dl (0.2-1.0)
[2017-10-02 19:29] LABS: BACTERIA 1+; MUCOUS TRACE
[2017-10-02 19:31] LABS: URINE AMPHETAMINES < 1000 (1000ng/ml); URINE BARBITURATES < 200 (200ng/ml); URINE BENZODIAZEPINES < 200 (200ng/ml); URINE CANNABINOIDS (THC) < 50 (50ng/ml); URINE COCAINE < 300 (300ng/ml); URINE METHADONE < 300 (300ng/ml); URINE OPIATES < 300 (300ng/ml); URINE PHENCYCLIDINE < 25 (25ng/ml)
[2017-10-02 20:00] VITALS: BP 161/83
[2017-10-02 20:05] VITALS: BP 161/83
[2017-10-03] VITALS (7 sets, daily range): BP systolic 132–158; BP diastolic 78–100
[2017-10-03 06:30] LABS: BASO % 0.7 % (0.0-1.0); EOS # 0.3 10*3/uL (0.0-0.4); EOS % 4.8 % (1.0-4.0); HEMATOCRIT 36.6 % (42.0-52.0); HEMOGLOBIN 12.2 g/dl (14.0-18.0); LYMPH # 1.9 10*3/uL (1.3-4.4); LYMPH % 32.6 % (27.0-41.0); MEAN CELL VOLUME 87.1 fl (80.0-94.0); MEAN CORPUSCULAR HGB CONC 33.3 g/dl (33.0-37.0); MEAN PLATELET VOLUME 11.7 fl (9.6-12.3); MONO # 0.5 10*3/uL (0.1-1.0); MONO % 7.8 % (3.0-9.0); NEUT # 3.1 10*3/uL (2.3-7.9); NEUT % 52.9 % (47.0-73.0); PLATELET COUNT AUTOMATED 146 10*3/uL (130-400); RED CELL DISTRI WIDTH 15.8 % (0-14.5); WHITE BLOOD COUNT 5.8 10*3/uL (4.8-10.8)
[2017-10-03 06:47] LABS: CHLORIDE 102 mmol/L (98-107); POTASSIUM 4.3 mmol/L (3.5-5.1); SODIUM 137 mmol/L (136-145)
[2017-10-03 06:59] LABS: ALBUMIN 3.2 gm/dl (3.1-4.5); ALKALINE PHOSPHATASE 125 U/L (45-117); BUN 30 mg/dl (7-24); CREATININE 1.31 mg/dL (0.70-1.30); SGOT/AST 16 IU/L (3-35); SGPT/ALT 40 U/L (12-78); TOTAL PROTEIN 6.7 gm/dL (6.4-8.2); VALPROIC ACID (DEPAKENE) 22.8 ug/ml (50-100)
[2017-10-03 07:14] LABS: VITAMIN D, 25-HYDROXY 9.3 ng/mL (30-100)
[2017-10-04] VITALS: BP 143/71
[2017-10-04 06:25] LABS: BASO % 0.6 % (0.0-1.0); EOS # 0.3 10*3/uL (0.0-0.4); EOS % 5.2 % (1.0-4.0); HEMATOCRIT 34.1 % (42.0-52.0); HEMOGLOBIN 11.1 g/dl (14.0-18.0); LYMPH # 2.1 10*3/uL (1.3-4.4); LYMPH % 38.4 % (27.0-41.0); MEAN CELL VOLUME 88.3 fl (80.0-94.0); MEAN CORPUSCULAR HGB 28.8 pg (27.0-31.0); MEAN CORPUSCULAR HGB CONC 32.6 g/dl (33.0-37.0); MEAN PLATELET VOLUME 11.4 fl (9.6-12.3); MONO # 0.4 10*3/uL (0.1-1.0); MONO % 7.9 % (3.0-9.0); NEUT # 2.5 10*3/uL (2.3-7.9); NEUT % 46.6 % (47.0-73.0); PLATELET COUNT AUTOMATED 134 10*3/uL (130-400); RED BLOOD COUNT 3.86 10*6/uL (4.50-5.90); RED CELL DISTRI WIDTH 15.7 % (0-14.5); WHITE BLOOD COUNT 5.4 10*3/uL (4.8-10.8)
[2017-10-04 07:03] LABS: CHLORIDE 107 mmol/L (98-107); POTASSIUM 4.6 mmol/L (3.5-5.1); SODIUM 140 mmol/L (136-145)
[2017-10-04 07:12] LABS: BUN 31 mg/dl (7-24); CREATININE 1.18 mg/dL (0.70-1.30); FREE T4 0.69 ng/dl (0.76-1.46); PHOSPHOROUS 3.5 mg/dL (2.5-4.9)
[2017-10-04 08:00] VITALS: BP 122/68
[2017-10-04 12:00] VITALS: BP 138/62
[2017-10-04 16:00] VITALS: BP 127/62
[2017-10-04 20:00] VITALS: BP 127/76
[2017-10-05] VITALS: BP 139/65
[2017-10-05 06:20] LABS: BASO % 0.6 % (0.0-1.0); EOS # 0.2 10*3/uL (0.0-0.4); EOS % 4.5 % (1.0-4.0); HEMATOCRIT 32.4 % (42.0-52.0); HEMOGLOBIN 10.6 g/dl (14.0-18.0); LYMPH # 1.6 10*3/uL (1.3-4.4); LYMPH % 32.2 % (27.0-41.0); MEAN CELL VOLUME 89.3 fl (80.0-94.0); MEAN CORPUSCULAR HGB 29.2 pg (27.0-31.0); MEAN CORPUSCULAR HGB CONC 32.7 g/dl (33.0-37.0); MEAN PLATELET VOLUME 11.6 fl (9.6-12.3); MONO # 0.4 10*3/uL (0.1-1.0); MONO % 7.3 % (3.0-9.0); NEUT # 2.7 10*3/uL (2.3-7.9); NEUT % 54.6 % (47.0-73.0); PLATELET COUNT AUTOMATED 118 10*3/uL (130-400); RED BLOOD COUNT 3.63 10*6/uL (4.50-5.90); RED CELL DISTRI WIDTH 15.9 % (0-14.5); WHITE BLOOD COUNT 4.9 10*3/uL (4.8-10.8)
[2017-10-05 06:34] LABS: BUN 27 mg/dl (7-24); CHLORIDE 112 mmol/L (98-107); POTASSIUM 4.8 mmol/L (3.5-5.1); SODIUM 141 mmol/L (136-145)
[2017-10-05 06:37] LABS: CREATININE 1.13 mg/dL (0.70-1.30)
[2017-10-05 08:00] VITALS: BP 130/72
[2017-10-05 12:00] VITALS: BP 120/82
[2017-10-05 14:45] VITALS: BP 119/59
[2017-10-05 20:00] VITALS: BP 155/74
[2017-10-06] VITALS: BP 150/71
[2017-10-06 06:36] LABS: BASO % 0.6 % (0.0-1.0); EOS # 0.2 10*3/uL (0.0-0.4); EOS % 3.8 % (1.0-4.0); HEMATOCRIT 32.7 % (42.0-52.0); HEMOGLOBIN 10.7 g/dl (14.0-18.0); LYMPH # 1.8 10*3/uL (1.3-4.4); LYMPH % 36.9 % (27.0-41.0); MEAN CELL VOLUME 89.8 fl (80.0-94.0); MEAN CORPUSCULAR HGB 29.4 pg (27.0-31.0); MEAN CORPUSCULAR HGB CONC 32.7 g/dl (33.0-37.0); MONO # 0.4 10*3/uL (0.1-1.0); MONO % 8.6 % (3.0-9.0); NEUT # 2.3 10*3/uL (2.3-7.9); NEUT % 49.1 % (47.0-73.0); PLATELET COUNT AUTOMATED 111 10*3/uL (130-400); RED BLOOD COUNT 3.64 10*6/uL (4.50-5.90); WHITE BLOOD COUNT 4.8 10*3/uL (4.8-10.8)
[2017-10-06 06:48] LABS: ALBUMIN 2.8 gm/dl (3.1-4.5); ALKALINE PHOSPHATASE 98 U/L (45-117); BUN 28 mg/dl (7-24); CHLORIDE 111 mmol/L (98-107); CREATININE 1.02 mg/dL (0.70-1.30); PHOSPHOROUS 3.1 mg/dL (2.5-4.9); POTASSIUM 4.8 mmol/L (3.5-5.1); SGPT/ALT 27 U/L (12-78); SODIUM 141 mmol/L (136-145); TOTAL PROTEIN 5.8 gm/dL (6.4-8.2)
[2017-10-06 06:55] LABS: SGOT/AST 12 IU/L (3-35)
[2017-10-06 08:00] VITALS: BP 160/58
[2017-10-06] MEDS ORDERED: Synthroid,Lev100 MCG PO (10:26)
== END 2017-10-06 12:41 | disposition home or self-care (01) | DRG 683 ==
LOC: ED 18:23 → 5E 18:37 → EDHOLD 18:37 → 5E 18:55
PROVIDERS: Emergency Medicine; Hospitalist; Internal Medicine Nephrology; Student in an Organized Health Care Education/Training Program; ADMIT Internal Medicine
DX: N17.0 Acute kidney failure with tubular necrosis (principal); E44.1 Mild protein-calorie malnutrition; E11.22 Type 2 diabetes mellitus with diabetic chronic kidney disease; E11.42 Type 2 diabetes mellitus with diabetic polyneuropathy; I25.110 Atherosclerotic heart disease of native coronary artery with unstable angina pectoris; I13.0 Hypertensive heart and chronic kidney disease with heart failure and stage 1 through stage 4 chronic kidney disease, or unspecified chronic kidney disease; I50.32 Chronic diastolic (congestive) heart failure; E87.1 Hypo-osmolality and hyponatremia; F33.9 Major depressive disorder, recurrent, unspecified; I95.1 Orthostatic hypotension; R13.10 Dysphagia, unspecified; K21.9 Gastro-esophageal reflux disease without esophagitis; G40.909 Epilepsy, unspecified, not intractable, without status epilepticus; N18.3 Chronic kidney disease, stage 3 (moderate); J44.9 Chronic obstructive pulmonary disease, unspecified; F41.1 Generalized anxiety disorder; M10.9 Gout, unspecified; F14.10 Cocaine abuse, uncomplicated; G89.29 Other chronic pain; E66.9 Obesity, unspecified; D64.9 Anemia, unspecified; E83.42 Hypomagnesemia; E78.5 Hyperlipidemia, unspecified; E03.9 Hypothyroidism, unspecified; N40.0 Benign prostatic hyperplasia without lower urinary tract symptoms; R31.9 Hematuria, unspecified; R74.8 Abnormal levels of other serum enzymes; R26.2 Difficulty in walking, not elsewhere classified; E11.65 Type 2 diabetes mellitus with hyperglycemia; E83.51 Hypocalcemia; Z96.641 Presence of right artificial hip joint; Z88.1 Allergy status to other antibiotic agents; Z87.891 Personal history of nicotine dependence; Z98.61 Coronary angioplasty status; Z87.11 Personal history of peptic ulcer disease; Z86.73 Personal history of transient ischemic attack (TIA), and cerebral infarction without residual deficits; I25.2 Old myocardial infarction; Z90.49 Acquired absence of other specified parts of digestive tract; Z89.412 Acquired absence of left great toe; Z89.422 Acquired absence of other left toe(s); Z82.49 Family history of ischemic heart disease and other diseases of the circulatory system; Z82.3 Family history of stroke; Z83.3 Family history of diabetes mellitus; Z80.0 Family history of malignant neoplasm of digestive organs; Z79.4 Long term (current) use of insulin; Z79.899 Other long term (current) drug therapy

== ENCOUNTER 2017-10-11 18:19 | Inpatient (IN) | payer MEDICARE ==
[~2017-10-11] VITALS: Ht 182.8 cm; Wt 106.7 kg
[~2017-10-11 18:19] MED LIST changes: +Synthroid,Lev100 MCG PO
[2017-10-11 18:57] LABS: BASO % 0.3 % (0.0-1.0); EOS # 0.2 10*3/uL (0.0-0.4); EOS % 2.6 % (1.0-4.0); HEMATOCRIT 33.5 % (42.0-52.0); HEMOGLOBIN 11.4 g/dl (14.0-18.0); LYMPH # 1.8 10*3/uL (1.3-4.4); LYMPH % 27.1 % (27.0-41.0); MEAN CELL VOLUME 85.9 fl (80.0-94.0); MEAN CORPUSCULAR HGB 29.2 pg (27.0-31.0); MEAN PLATELET VOLUME 10.8 fl (9.6-12.3); MONO # 0.5 10*3/uL (0.1-1.0); MONO % 7.6 % (3.0-9.0); NEUT % 61.2 % (47.0-73.0); PLATELET COUNT AUTOMATED 189 10*3/uL (130-400); RED CELL DISTRI WIDTH 15.6 % (0-14.5); WHITE BLOOD COUNT 6.5 10*3/uL (4.8-10.8)
[2017-10-11 19:00] VITALS: BP 160/88
[2017-10-11 19:07] LABS: ACT PARTIAL THROMBO TIME 25.8 SECONDS (20.8-31.5); INTERNATIONAL NORM RATIO 1.1 (2.0-3.5)
[2017-10-11 19:14] LABS: ALBUMIN 3.3 gm/dl (3.1-4.5); ALKALINE PHOSPHATASE 122 U/L (45-117); BUN 23 mg/dl (7-24); CHLORIDE 103 mmol/L (98-107); CREATININE 1.29 mg/dL (0.70-1.30); POTASSIUM 4.2 mmol/L (3.5-5.1); SGOT/AST 30 IU/L (3-35); SGPT/ALT 47 U/L (12-78); SODIUM 137 mmol/L (136-145); TOTAL PROTEIN 6.7 gm/dL (6.4-8.2)
[2017-10-11 19:19] LABS: TROPONIN I < 0.015 ng/ml (<0.045)
[2017-10-11 19:27] VITALS: BP 165/96
[2017-10-11 20:12] LABS: BILIRUBIN NEGATIVE (NEGATIVE); BLOOD 1+ (NEGATIVE); CLARITY CLEAR (CLEAR); COLOR YELLOW (YELLOW); GLUCOSE 2+ (NEGATIVE); KETONE NEGATIVE (NEGATIVE); LEUKO ESTERASE NEGATIVE (NEGATIVE); NITRITE NEGATIVE (NEGATIVE); SPECIFIC GRAVITY 1.025 (1.005-1.030); UROBILINOGEN 0.2 E.U./dl (0.2-1.0)
[2017-10-11 20:22] LABS: URINE AMPHETAMINES < 1000 (1000ng/ml); URINE BARBITURATES < 200 (200ng/ml); URINE BENZODIAZEPINES < 200 (200ng/ml); URINE CANNABINOIDS (THC) < 50 (50ng/ml); URINE COCAINE < 300 (300ng/ml); URINE METHADONE < 300 (300ng/ml); URINE OPIATES < 300 (300ng/ml)
[2017-10-11 20:23] LABS: URINE PHENCYCLIDINE < 25 (25ng/ml)
[2017-10-11 21:23] VITALS: BP 185/96
[2017-10-12] VITALS: BP 181/92
[2017-10-12 06:11] LABS: ALBUMIN 3.4 gm/dl (3.1-4.5); ALKALINE PHOSPHATASE 123 U/L (45-117); BUN 24 mg/dl (7-24); CHLORIDE 107 mmol/L (98-107); CREATININE 1.21 mg/dL (0.70-1.30); POTASSIUM 4.2 mmol/L (3.5-5.1); SGOT/AST 28 IU/L (3-35); SGPT/ALT 48 U/L (12-78); SODIUM 142 mmol/L (136-145); TOTAL PROTEIN 6.9 gm/dL (6.4-8.2)
[2017-10-12 06:25] LABS: BASO % 0.5 % (0.0-1.0); EOS # 0.2 10*3/uL (0.0-0.4); HEMATOCRIT 34.9 % (42.0-52.0); HEMOGLOBIN 11.5 g/dl (14.0-18.0); LYMPH # 2.6 10*3/uL (1.3-4.4); LYMPH % 45.6 % (27.0-41.0); MEAN CELL VOLUME 88.1 fl (80.0-94.0); MEAN PLATELET VOLUME 11.1 fl (9.6-12.3); MONO # 0.6 10*3/uL (0.1-1.0); MONO % 10.4 % (3.0-9.0); NEUT # 2.2 10*3/uL (2.3-7.9); NEUT % 39.3 % (47.0-73.0); PLATELET COUNT AUTOMATED 168 10*3/uL (130-400); RED BLOOD COUNT 3.96 10*6/uL (4.50-5.90); RED CELL DISTRI WIDTH 15.9 % (0-14.5); WHITE BLOOD COUNT 5.7 10*3/uL (4.8-10.8)
[2017-10-12 06:33] LABS: ACT PARTIAL THROMBO TIME 25.1 SECONDS (20.8-31.5)
[2017-10-12 08:00] VITALS: BP 160/80
[2017-10-12 12:00] VITALS: BP 164/88
== END 2017-10-12 13:55 | disposition home or self-care (01) | DRG 206 ==
LOC: ED 18:19 → 4E 19:48 → EDHOLD 19:48 → 4E 19:56
PROVIDERS: Hospitalist; Nurse Practitioner Family; ADMIT Internal Medicine
DX: M94.0 Chondrocostal junction syndrome [Tietze] (principal); E11.22 Type 2 diabetes mellitus with diabetic chronic kidney disease; E11.40 Type 2 diabetes mellitus with diabetic neuropathy, unspecified; I50.32 Chronic diastolic (congestive) heart failure; I13.0 Hypertensive heart and chronic kidney disease with heart failure and stage 1 through stage 4 chronic kidney disease, or unspecified chronic kidney disease; R07.9 Chest pain, unspecified; I25.10 Atherosclerotic heart disease of native coronary artery without angina pectoris; E83.42 Hypomagnesemia; J44.9 Chronic obstructive pulmonary disease, unspecified; N40.0 Benign prostatic hyperplasia without lower urinary tract symptoms; F32.9 Major depressive disorder, single episode, unspecified; F41.1 Generalized anxiety disorder; K21.9 Gastro-esophageal reflux disease without esophagitis; M10.9 Gout, unspecified; E78.5 Hyperlipidemia, unspecified; E03.9 Hypothyroidism, unspecified; G40.909 Epilepsy, unspecified, not intractable, without status epilepticus; E11.65 Type 2 diabetes mellitus with hyperglycemia; R80.9 Proteinuria, unspecified; R81 Glycosuria; E83.51 Hypocalcemia; E66.9 Obesity, unspecified; N18.3 Chronic kidney disease, stage 3 (moderate); Z96.641 Presence of right artificial hip joint; Z79.4 Long term (current) use of insulin; Z86.73 Personal history of transient ischemic attack (TIA), and cerebral infarction without residual deficits; I25.2 Old myocardial infarction; Z79.899 Other long term (current) drug therapy; Z95.5 Presence of coronary angioplasty implant and graft; Z90.49 Acquired absence of other specified parts of digestive tract; Z89.412 Acquired absence of left great toe; Z89.422 Acquired absence of other left toe(s); Z68.31 Body mass index [BMI] 31.0-31.9, adult; Z87.891 Personal history of nicotine dependence; Z88.1 Allergy status to other antibiotic agents; Z88.8 Allergy status to other drugs, medicaments and biological substances; Z80.0 Family history of malignant neoplasm of digestive organs; Z82.3 Family history of stroke; Z82.49 Family history of ischemic heart disease and other diseases of the circulatory system; Z83.3 Family history of diabetes mellitus

== ENCOUNTER 2017-10-18 08:17 | Emergency (ER) | payer MEDICARE ==
[~2017-10-18] VITALS: Ht 172.7 cm; Wt 108.9 kg
[2017-10-18 08:41] LABS: BASO % 0.4 % (0.0-1.0); EOS # 0.3 10*3/uL (0.0-0.4); EOS % 4.2 % (1.0-4.0); HEMATOCRIT 34.7 % (42.0-52.0); HEMOGLOBIN 11.3 g/dl (14.0-18.0); LYMPH # 1.8 10*3/uL (1.3-4.4); LYMPH % 25.1 % (27.0-41.0); MEAN CELL VOLUME 88.1 fl (80.0-94.0); MEAN CORPUSCULAR HGB 28.7 pg (27.0-31.0); MEAN CORPUSCULAR HGB CONC 32.6 g/dl (33.0-37.0); MEAN PLATELET VOLUME 10.4 fl (9.6-12.3); MONO # 0.5 10*3/uL (0.1-1.0); MONO % 6.4 % (3.0-9.0); NEUT # 4.5 10*3/uL (2.3-7.9); PLATELET COUNT AUTOMATED 151 10*3/uL (130-400); RED BLOOD COUNT 3.94 10*6/uL (4.50-5.90); RED CELL DISTRI WIDTH 15.5 % (0-14.5); WHITE BLOOD COUNT 7.2 10*3/uL (4.8-10.8)
[2017-10-18 08:51] LABS: ACT PARTIAL THROMBO TIME 25.1 SECONDS (20.8-31.5)
[2017-10-18 08:58] LABS: ALBUMIN 3.2 gm/dl (3.1-4.5); ALKALINE PHOSPHATASE 138 U/L (45-117); BUN 33 mg/dl (7-24); CHLORIDE 102 mmol/L (98-107); CREATININE 1.47 mg/dL (0.70-1.30); POTASSIUM 4.5 mmol/L (3.5-5.1); SGOT/AST 43 IU/L (3-35); SGPT/ALT 55 U/L (12-78); SODIUM 136 mmol/L (136-145)
[2017-10-18 09:00] LABS: TROPONIN I < 0.015 ng/ml (<0.045)
[2017-10-18 09:26] VITALS: BP 168/70
[2017-10-18] MEDS ORDERED: COMBIVENT RESPIM4 GM INH (09:59)
[2017-10-18] MEDS ORDERED: AVPAK AZITHROM250 M1 PO (09:59)
[2017-10-18] MEDS ORDERED: PREDNISONE50 MG PO (09:59)
== END 2017-10-18 09:50 | disposition home or self-care (01) ==
LOC: ED 08:17
PROVIDERS: Emergency Medicine
DX: J40 Bronchitis, not specified as acute or chronic (principal); J06.9 Acute upper respiratory infection, unspecified; F15.10 Other stimulant abuse, uncomplicated; G89.29 Other chronic pain; E11.22 Type 2 diabetes mellitus with diabetic chronic kidney disease; I12.9 Hypertensive chronic kidney disease with stage 1 through stage 4 chronic kidney disease, or unspecified chronic kidney disease; N18.3 Chronic kidney disease, stage 3 (moderate); I50.32 Chronic diastolic (congestive) heart failure; F32.9 Major depressive disorder, single episode, unspecified; E11.40 Type 2 diabetes mellitus with diabetic neuropathy, unspecified; E11.65 Type 2 diabetes mellitus with hyperglycemia; K21.9 Gastro-esophageal reflux disease without esophagitis; E83.51 Hypocalcemia; E78.5 Hyperlipidemia, unspecified; Z87.891 Personal history of nicotine dependence; Z79.4 Long term (current) use of insulin

== ENCOUNTER 2017-10-20 11:30 | Inpatient (IN) | payer MEDICARE, MEDICAID ==
[2017-10-20] VITALS (8 sets, daily range): BP systolic 144–177; BP diastolic 74–90
[~2017-10-20] VITALS: Ht 182.8 cm; Wt 110.4 kg
--- NOTE | ~2017-10-20 | EKG ---
[place], [place] ELECTROCARDIOGRAM REPORT NAME: DEBORAH SANTACRUZ UNIT #: [id number] ROOM: 506 DOCTOR: PAM ALVARADO MD BIRTHDATE: [birth year] DOS: 10/20/2017 TIME: 15:12 hours Normal sinus rhythm at 96 beats per minute. Low voltage ECG. An old inferior wall myocardial infarction. Probable old anterior wall myocardial infarction. No significant change from the ECG done about 3 hours earlier. PAM ALVARADO MD CM:EKGRPT:ELECTROCARDIOGRAM REPORT 1731 2231 PAM ALVARADO MD
--- NOTE | ~2017-10-20 | EKG ---
[place], [place] ELECTROCARDIOGRAM REPORT NAME: DEBORAH SANTACRUZ UNIT #: [id number] ROOM: 506 DOCTOR: PAM ALVARADO MD BIRTHDATE: [birth year] DOS: 10/20/2017 TIME: At 12:21 hours. This is a sinus tachycardia at 106 beats per minute. An old inferior wall myocardial infarction. Possible old anterior wall myocardial infarction. An abnormal ECG. No significant change from ECG done several days earlier. PAM ALVARADO MD CM:EKGRPT:ELECTROCARDIOGRAM REPORT 1731 2229 PAM ALVARADO MD
--- NOTE | ~2017-10-20 | EKG ---
[place], [place] ELECTROCARDIOGRAM REPORT NAME: DEBORAH SANTACRUZ UNIT #: [id number] ROOM: 506 DOCTOR: PAM ALVARADO MD BIRTHDATE: [birth year] DOS: 10/20/2017 TIME: 18:35 hours. Normal sinus rhythm at 90 beats per minute, an old inferior myocardial infarction. Likely old anterior wall myocardial infarction. No significant change from the ECG done about 3.5 hours earlier. PAM ALVARADO MD CM:EKGRPT:ELECTROCARDIOGRAM REPORT 1731 2232 PAM ALVARADO MD
[~2017-10-20 11:30] MED LIST changes: +AVPAK AZITHROM250 M1 PO; +COMBIVENT RESPIM4 GM INH; +PREDNISONE50 MG PO
--- NOTE | 2017-10-20 12:07 | NUR ---
PT TO LOBBY AMBULATING WITH WALKER WITHOUT DIFFICULTY.
--- NOTE | 2017-10-20 12:08 | NUR ---
PT STATES HE HAS NOW HAS DEVELOPED CHEST PAIN.
[2017-10-20 12:34] LABS: BASO % 0.4 % (0.0-1.0); EOS # 0.3 10*3/uL (0.0-0.4); EOS % 4.3 % (1.0-4.0); HEMOGLOBIN 10.9 g/dl (14.0-18.0); LYMPH # 1.8 10*3/uL (1.3-4.4); MEAN CORPUSCULAR HGB 29.3 pg (27.0-31.0); MEAN CORPUSCULAR HGB CONC 34.1 g/dl (33.0-37.0); MEAN PLATELET VOLUME 10.8 fl (9.6-12.3); MONO # 0.6 10*3/uL (0.1-1.0); MONO % 7.9 % (3.0-9.0); NEUT # 4.6 10*3/uL (2.3-7.9); NEUT % 61.1 % (47.0-73.0); PLATELET COUNT AUTOMATED 141 10*3/uL (130-400); RED BLOOD COUNT 3.72 10*6/uL (4.50-5.90); RED CELL DISTRI WIDTH 15.3 % (0-14.5); WHITE BLOOD COUNT 7.5 10*3/uL (4.8-10.8)
[2017-10-20 12:46] LABS: ACT PARTIAL THROMBO TIME 28.5 SECONDS (20.8-31.5); INTERNATIONAL NORM RATIO 1.1 (2.0-3.5)
--- NOTE | 2017-10-20 12:51 | NUR ---
THE PATIENT WAS GIVEN A WARM BLANKET. HE IS RESTING ON THE BED. NO NEW C/O AT THIS TIME
[2017-10-20 12:53] LABS: ALBUMIN 2.9 gm/dl (3.1-4.5); ALKALINE PHOSPHATASE 136 U/L (45-117); BUN 26 mg/dl (7-24); CHLORIDE 99 mmol/L (98-107); CREATININE 1.65 mg/dL (0.70-1.30); POTASSIUM 4.9 mmol/L (3.5-5.1); SGOT/AST 32 IU/L (3-35); SGPT/ALT 40 U/L (12-78); SODIUM 133 mmol/L (136-145); TOTAL PROTEIN 7.1 gm/dL (6.4-8.2)
[2017-10-20 13:00] LABS: TROPONIN I < 0.015 ng/ml (<0.045)
--- NOTE | 2017-10-20 13:47 | NUR ---
DR RAZA CALLED AND ASKED THAT PT BE CHANGED TO DR ALLEN'S SERVICE. HE WAS NOT A HOSPITALIST PT. NOTIFIED NURSING MOCK UP BUILDER WHO STATED"SHE WILL FIGURE THIS OUT". I EXPLAINED THAT DR RAZA WANTED HIM ADDED TO DR ALLEN'S SERVICE.
--- NOTE | 2017-10-20 13:49 | NUR ---
A 67, admitted to , under the services of LAKHWINDER Varghese DO with a diagnosis of CHEST PAIN . Chief complaint is CHEST PAIN. Patient arrived via stretcher from ER. Monitor applied. Initial assessment completed. Vital signs taken and recorded. DR.MOHINDAR ALLEN notified of admission to the unit. Orders received. See assessment for past medical history, medications and allergies. Patient and/or family oriented to unit. [facility] reviewed. Clothing/patient valuable form completed. PIPO SOTO
--- NOTE | 2017-10-20 13:59 | NUR ---
A 67, admitted to , under the services of LAKHWINDER Haas DO with a diagnosis of CHEST PAIN. Chief complaint is CHEST PAIN. Patient arrived via stretcher from ER. Monitor applied. Initial assessment completed. Vital signs taken and recorded. LAKHWINDER HAAS DO notified of admission to the unit. Orders received. See assessment for past medical history, medications and allergies. Patient and/or family oriented to unit. [facility] Clothing/patient valuable form completed. PIPO SOTO
--- NOTE | 2017-10-20 16:16 | NUR ---
RECIEVED CRITICAL 2 HR LACTIC ACID, 3.2. NOTIFIED DR ROSENBERG, NO NEW ORDERS. TRENDING DOWN FROM PREVIOUS BASE.
--- NOTE | 2017-10-20 18:14 | NUR ---
MED RECONCILIATION COMPLETED VIA FAX FROM PHARMACY. DR RAZA NOTIFIED AND AWARE.
--- NOTE | 2017-10-20 18:45 | NUR ---
NOTIFIED DR RAZA OF CRITICAL LACTIC OF 3.1. NO NEW ORDERS.
[2017-10-20 20:12] LABS: URINE AMPHETAMINES < 1000 (1000ng/ml); URINE BARBITURATES < 200 (200ng/ml); URINE BENZODIAZEPINES < 200 (200ng/ml); URINE CANNABINOIDS (THC) < 50 (50ng/ml); URINE COCAINE < 300 (300ng/ml); URINE METHADONE < 300 (300ng/ml); URINE OPIATES < 300 (300ng/ml); URINE PHENCYCLIDINE < 25 (25ng/ml)
[2017-10-21] VITALS: BP 158/70
[2017-10-21 07:47] LABS: HEMATOCRIT 30.9 % (42.0-52.0); HEMOGLOBIN 10.2 g/dl (14.0-18.0); MEAN CELL VOLUME 87.3 fl (80.0-94.0); MEAN CORPUSCULAR HGB 28.8 pg (27.0-31.0); MEAN PLATELET VOLUME 10.5 fl (9.6-12.3); PLATELET COUNT AUTOMATED 134 10*3/uL (130-400); RED BLOOD COUNT 3.54 10*6/uL (4.50-5.90); RED CELL DISTRI WIDTH 15.4 % (0-14.5); WHITE BLOOD COUNT 4.7 10*3/uL (4.8-10.8)
[2017-10-21 08:00] VITALS: BP 140/82
[2017-10-21 08:08] LABS: ATYPICAL LYMPHS 1 % (0-0); TOTAL CELLS COUNTED 100 #CELLS
[2017-10-21 08:15] LABS: ALBUMIN 2.6 gm/dl (3.1-4.5); ALKALINE PHOSPHATASE 116 U/L (45-117); BUN 17 mg/dl (7-24); CHLORIDE 108 mmol/L (98-107); CREATININE 1.07 mg/dL (0.70-1.30); SGOT/AST 18 IU/L (3-35); SGPT/ALT 32 U/L (12-78); TOTAL PROTEIN 6.2 gm/dL (6.4-8.2)
[2017-10-21 08:19] LABS: PLATELET SUFFICIENCY NORMAL (NORMAL); POLYCHROMASIA SLIGHT
[2017-10-21 08:25] LABS: POTASSIUM 3.8 mmol/L (3.5-5.1); SODIUM 138 mmol/L (136-145)
--- NOTE | 2017-10-21 08:30 | NUR ---
MARINE SUPERINTENDENT VS. PT UPSET THAT "JOSE" NOT AVAILABLE AND KICKED ME OUT OF HIS ROOM.
[2017-10-21 12:00] VITALS: BP 140/76
--- NOTE | 2017-10-21 12:08 | NUR ---
MEDICATED WITH PRN PO TYLENOL FOR LUQ PAIN.
--- NOTE | 2017-10-21 13:57 | NUR ---
SPEECH PATHOLOGY MBS completed as per orders. Patient was cooperative for tasks. He reported having difficulty swallowing since tracheostomy was performed several years ago. Patient was challenged with puree, solid foods and thin liquids taken by cup and straw. Oral and pharyngeal swallowing skills were WFL. One instance of transient penetration occurred with straw drinking but on subsequent swallow with straw, penetration did not occur. No aspiration occurred with any consistency. Recommend patient receive a regular diet and thin liquids. Recommend patient implement safe swallow strategies with meals including small bites/sips, chewing thoroughly due to limited dentition, alternating liquids and solids and eating slowly. Patient was educated on results and dana. and verbalized understanding of all information provided and was able to repeat it back. No follow up therapy is recommended at this time. Will inform patient's nurse of results and dana. Dictated report to follow. Thank you for this referral. YASMINE PAULSON MSCCC-ACCESS LEAD
--- NOTE | 2017-10-21 14:16 | NUR ---
PER SPEECH THERAPIST, PATIENT PASSED THE MODIFIED BARIUM SWALLOW, AND SHE RECOMMENDS REGULAR FOOD AND THIN LIQUIDS. DR. ROSENBERG NOTIFIED.
--- NOTE | 2017-10-21 15:10 | NUR ---
PRN PO TYLENOL EFFECTIVE, PER PATIENT.
--- NOTE | 2017-10-21 17:00 | NUR ---
PATIENT LEFT WITHOUT RECEIVING HIS DISCHARGE INSTRUCTIONS AND FOLLOW UP APPOINTMENT INFORMATION. HE WAS AMBULATORY TO [facility] FOR TRANSPORT HOME BY PRIVATE VEHICLE.
== END 2017-10-21 17:00 | disposition home or self-care (01) | DRG 871 ==
LOC: ED 11:30 → EDHOLD 13:10 → 5E 13:10
PROVIDERS: Internal Medicine; Physician Assistant; ADMIT Internal Medicine
PROC: BD1BYZZ Fluoroscopy of Mouth/Oropharynx using Other Contrast (ICD-10-PCS; principal; 2017-10-21)
DX: A41.9 Sepsis, unspecified organism (principal); N17.0 Acute kidney failure with tubular necrosis; E43 Unspecified severe protein-calorie malnutrition; E87.2 Acidosis; E83.42 Hypomagnesemia; E11.22 Type 2 diabetes mellitus with diabetic chronic kidney disease; R13.10 Dysphagia, unspecified; E11.40 Type 2 diabetes mellitus with diabetic neuropathy, unspecified; E87.1 Hypo-osmolality and hyponatremia; I13.0 Hypertensive heart and chronic kidney disease with heart failure and stage 1 through stage 4 chronic kidney disease, or unspecified chronic kidney disease; I50.32 Chronic diastolic (congestive) heart failure; E11.65 Type 2 diabetes mellitus with hyperglycemia; R65.20 Severe sepsis without septic shock; K52.9 Noninfective gastroenteritis and colitis, unspecified; D72.810 Lymphocytopenia; I25.119 Atherosclerotic heart disease of native coronary artery with unspecified angina pectoris; N18.3 Chronic kidney disease, stage 3 (moderate); N40.1 Benign prostatic hyperplasia with lower urinary tract symptoms; R35.0 Frequency of micturition; K21.9 Gastro-esophageal reflux disease without esophagitis; M1A.9XX0 Chronic gout, unspecified, without tophus (tophi); G40.909 Epilepsy, unspecified, not intractable, without status epilepticus; F14.10 Cocaine abuse, uncomplicated; J44.9 Chronic obstructive pulmonary disease, unspecified; G89.29 Other chronic pain; E03.9 Hypothyroidism, unspecified; F32.9 Major depressive disorder, single episode, unspecified; F41.1 Generalized anxiety disorder; D64.9 Anemia, unspecified; R74.8 Abnormal levels of other serum enzymes; R07.2 Precordial pain; Z96.641 Presence of right artificial hip joint; M51.36 Other intervertebral disc degeneration, lumbar region; E66.9 Obesity, unspecified; Z82.49 Family history of ischemic heart disease and other diseases of the circulatory system; Z79.4 Long term (current) use of insulin; Z79.899 Other long term (current) drug therapy; Z80.0 Family history of malignant neoplasm of digestive organs; Z83.3 Family history of diabetes mellitus; Z88.1 Allergy status to other antibiotic agents; Z88.8 Allergy status to other drugs, medicaments and biological substances; Z68.33 Body mass index [BMI] 33.0-33.9, adult; Z90.49 Acquired absence of other specified parts of digestive tract; Z89.432 Acquired absence of left foot; I25.2 Old myocardial infarction

== ENCOUNTER 2017-10-23 14:33 | Inpatient (IN) | payer MEDICARE, MEDICAID ==
[~2017-10-23] VITALS: Ht 182.9 cm; Wt 105.2 kg
--- NOTE | 2017-10-23 15:05 | NUR ---
PATIENT GLUCOSE NOTED >445. M CAROL GAMBLING DEALER NOTIFIED.
[2017-10-23 15:06] VITALS: BP 138/78
[2017-10-23 15:09] LABS: HEMATOCRIT 33.4 % (42.0-52.0); HEMOGLOBIN 11.1 g/dl (14.0-18.0); MEAN CELL VOLUME 88.1 fl (80.0-94.0); MEAN CORPUSCULAR HGB 29.3 pg (27.0-31.0); MEAN CORPUSCULAR HGB CONC 33.2 g/dl (33.0-37.0); MEAN PLATELET VOLUME 10.1 fl (9.6-12.3); NUCLEATED RED BLOOD CELL 0.2 % (0.0-0.0); PLATELET COUNT AUTOMATED 203 10*3/uL (130-400); RED BLOOD COUNT 3.79 10*6/uL (4.50-5.90); RED CELL DISTRI WIDTH 15.9 % (0-14.5); WHITE BLOOD COUNT 8.7 10*3/uL (4.8-10.8)
[2017-10-23 15:26] LABS: ALBUMIN 3.1 gm/dl (3.1-4.5); ALKALINE PHOSPHATASE 126 U/L (45-117); BUN 30 mg/dl (7-24); CHLORIDE 103 mmol/L (98-107); LIPASE 306 U/L (73-393); POTASSIUM 5.6 mmol/L (3.5-5.1); SGOT/AST 14 IU/L (3-35); SGPT/ALT 31 U/L (12-78); SODIUM 137 mmol/L (136-145); TOTAL PROTEIN 7.2 gm/dL (6.4-8.2)
[2017-10-23 15:28] LABS: TROPONIN I < 0.015 ng/ml (<0.045)
[2017-10-23 15:30] LABS: TOTAL CELLS COUNTED 100 #CELLS
[2017-10-23 15:31] LABS: PLATELET SUFFICIENCY NORMAL (NORMAL); POLYCHROMASIA SLIGHT
[2017-10-23 16:28] VITALS: BP 110/68
--- NOTE | 2017-10-23 16:58 | NUR ---
PT STATES HE DOESN'T WANT CT SCAN OF ABD BECAUSE HE JUST HAD ONE ON THE 10/20/17. DR HUFF NOTIFIED AND HE STATED IT WAS OK TO CANCEL THE TEST.
--- NOTE | 2017-10-23 17:12 | NUR ---
SPOKE TO DR GONZALES REGADING 2ND CT SCAN ORDERED AND NOTIFIED HIM THAT PT HAD BEEN REFUSING BECAUSE OF THE ONE HE JUST HAD ON THE 12TH AND THAT I SPOKE TO DR HUFF ALREADY REGARDING THIS.
[2017-10-23 19:38] LABS: BILIRUBIN NEGATIVE (NEGATIVE); BLOOD TRACE-LYSED (NEGATIVE); CLARITY CLEAR (CLEAR); COLOR YELLOW (YELLOW); GLUCOSE 3+ (NEGATIVE); KETONE NEGATIVE (NEGATIVE); LEUKO ESTERASE NEGATIVE (NEGATIVE); NITRITE NEGATIVE (NEGATIVE); UROBILINOGEN 0.2 E.U./dl (0.2-1.0)
--- NOTE | 2017-10-23 19:46 | NUR ---
NOTIFIED DR QURESHI OF CRITICAL LACTIC ACID 2.8
[2017-10-23 19:50] LABS: BACTERIA TRACE; HYALINE CAST 0-2; WBC 0-2 wbc/hpf (0-5)
--- NOTE | 2017-10-23 19:56 | NUR ---
LATE ENTRY---PTS HOME MEDICATIONS VERIFIED WITH [facility].
[2017-10-23 20:00] VITALS: BP 163/92
[2017-10-24] VITALS: BP 143/82
--- NOTE | 2017-10-24 04:15 | NUR ---
NOTIFIED DR GONZALES THAT PATIENT'S EXPENDITURE REQUISITION CLERK STRIP APPEARS TO BE HAVING SOME ST ELEVATION AT THIS TIME. DR GONZALES STATES HE WILL ORDER AN EKG AT THIS TIME. PATIENT RESTING IN BED WITH EYES CLOSED, NO S/S OF DISTRESS NOTED AT THIS TIME. BED IN LOW POSITION, SIDERAILS UP X2 AND CALL LIGHT WITHIN REACH.
[2017-10-24 06:53] LABS: HEMOGLOBIN 10.5 g/dl (14.0-18.0); MEAN CELL VOLUME 87.2 fl (80.0-94.0); MEAN CORPUSCULAR HGB 28.6 pg (27.0-31.0); MEAN CORPUSCULAR HGB CONC 32.8 g/dl (33.0-37.0); MEAN PLATELET VOLUME 10.5 fl (9.6-12.3); NUCLEATED RED BLOOD CELL 0.2 % (0.0-0.0); PLATELET COUNT AUTOMATED 208 10*3/uL (130-400); RED BLOOD COUNT 3.67 10*6/uL (4.50-5.90); RED CELL DISTRI WIDTH 15.3 % (0-14.5); WHITE BLOOD COUNT 10.4 10*3/uL (4.8-10.8)
[2017-10-24 07:23] LABS: PLATELET SUFFICIENCY NORMAL (NORMAL); TOTAL CELLS COUNTED 100 #CELLS
[2017-10-24 07:27] LABS: BUN 31 mg/dl (7-24); CHLORIDE 101 mmol/L (98-107); POLYCHROMASIA SLIGHT; POTASSIUM 5.3 mmol/L (3.5-5.1); SODIUM 138 mmol/L (136-145)
[2017-10-24 07:28] LABS: CREATININE 1.42 mg/dL (0.70-1.30); PHOSPHOROUS 2.8 mg/dL (2.5-4.9)
[2017-10-24 08:00] VITALS: BP 155/94
[2017-10-24 09:44] VITALS: BP 138/82
[2017-10-24 12:00] VITALS: BP 156/82; BP 156/91
--- NOTE | 2017-10-24 14:02 | NUR ---
PATIENT WALKING DOWN HALLWAY STATES HE HAS "ANTS IN MY PANTS" AND WANTS TO GO HOME PT WANTING ME TO CALL DR MARIA AND TELL HIM HE IS SIGNING OUT AMA DR MAGALIE MARIA NOTIFIED PATIENT SIGNING OUT AMA
--- NOTE | 2017-10-24 14:13 | NUR ---
PATIENT SIGNED AMA PAPER IV AND EXPENSE ANALYST REMOVED
--- NOTE | 2017-10-24 14:32 | NUR ---
PATIENT OFF THE FLOOR TO PRIVATE VEHICLE AFTER SIGNING OUT AMA ALL PRIVATE BELONGINGS IN HAND
== END 2017-10-24 14:34 | disposition left against medical advice (07) | DRG 637 ==
LOC: ED 14:33 → 4E 15:55 → EDHOLD 15:55 → 4E 16:07
PROVIDERS: Nurse Practitioner Family; Student in an Organized Health Care Education/Training Program; ADMIT Emergency Medicine
DX: E11.65 Type 2 diabetes mellitus with hyperglycemia (principal); N17.0 Acute kidney failure with tubular necrosis; E87.2 Acidosis; I50.32 Chronic diastolic (congestive) heart failure; I13.0 Hypertensive heart and chronic kidney disease with heart failure and stage 1 through stage 4 chronic kidney disease, or unspecified chronic kidney disease; E87.5 Hyperkalemia; R13.10 Dysphagia, unspecified; E11.22 Type 2 diabetes mellitus with diabetic chronic kidney disease; N18.3 Chronic kidney disease, stage 3 (moderate); I25.10 Atherosclerotic heart disease of native coronary artery without angina pectoris; J44.9 Chronic obstructive pulmonary disease, unspecified; F32.9 Major depressive disorder, single episode, unspecified; F41.1 Generalized anxiety disorder; K21.9 Gastro-esophageal reflux disease without esophagitis; M10.9 Gout, unspecified; E03.9 Hypothyroidism, unspecified; M85.80 Other specified disorders of bone density and structure, unspecified site; G40.909 Epilepsy, unspecified, not intractable, without status epilepticus; Z96.641 Presence of right artificial hip joint; E86.0 Dehydration; E78.5 Hyperlipidemia, unspecified; E66.09 Other obesity due to excess calories; E11.41 Type 2 diabetes mellitus with diabetic mononeuropathy; R74.8 Abnormal levels of other serum enzymes; N40.1 Benign prostatic hyperplasia with lower urinary tract symptoms; R35.0 Frequency of micturition; D64.9 Anemia, unspecified; Z80.0 Family history of malignant neoplasm of digestive organs; Z53.21 Procedure and treatment not carried out due to patient leaving prior to being seen by health care provider; Z79.899 Other long term (current) drug therapy; Z88.0 Allergy status to penicillin; Z88.1 Allergy status to other antibiotic agents; Z88.8 Allergy status to other drugs, medicaments and biological substances; Z86.73 Personal history of transient ischemic attack (TIA), and cerebral infarction without residual deficits; I25.2 Old myocardial infarction; Z79.4 Long term (current) use of insulin; Z95.5 Presence of coronary angioplasty implant and graft; Z90.49 Acquired absence of other specified parts of digestive tract; Z89.432 Acquired absence of left foot; Z89.431 Acquired absence of right foot; Z87.891 Personal history of nicotine dependence; Z82.49 Family history of ischemic heart disease and other diseases of the circulatory system; Z82.3 Family history of stroke; Z91.14 Patient's other noncompliance with medication regimen; Z68.31 Body mass index [BMI] 31.0-31.9, adult

== ENCOUNTER → 2017-10-27 | Outpatient (CLI) | payer MEDICARE, MEDICAID | END | disposition home or self-care (01) | LOC: RESCLI 02:07 | DX: I10 Essential (primary) hypertension (principal); J44.9 Chronic obstructive pulmonary disease, unspecified; E78.5 Hyperlipidemia, unspecified; E03.9 Hypothyroidism, unspecified; G89.4 Chronic pain syndrome; E11.65 Type 2 diabetes mellitus with hyperglycemia; K21.0 Gastro-esophageal reflux disease with esophagitis; F32.9 Major depressive disorder, single episode, unspecified; M10.9 Gout, unspecified; F41.9 Anxiety disorder, unspecified; Z91.19 Patient's noncompliance with other medical treatment and regimen; I25.10 Atherosclerotic heart disease of native coronary artery without angina pectoris ==

== ENCOUNTER 2017-10-31 12:34 | Inpatient (IN) | payer MEDICARE, MEDICAID ==
[~2017-10-31] VITALS: Ht 177.8 cm; Wt 104.6 kg
--- NOTE | ~2017-10-31 | CON ---
[place], [place] REPORT OF CONSULTATION NAME[id number] UNIT #: [id number] ROOM: 427 DOCTOR: ELIN CASANOVA MD BIRTHDATE: [birth year] DOS: 11/01/2017 REASON FOR CONSULTATION: Chest pain and nonsustained ventricular tachycardia. HISTORY OF PRESENT ILLNESS: The patient is a patient known to Dr. Mitchell and Dr. Metz, was admitted for chest pain. Dr. Metz is out of [facility] and [facility] was asked to see in consultation for his atypical chest pain and also 8 beats of nonsustained ventricular tachycardia. The patient has history of coronary artery disease with previous stents, details are unknown. He apparently had a cardiac catheterization in earlier part of 2016, which showed patent stent, per Dr. Metz's report. He had echo a few months ago, showed normal LV function. He is complaining of intermittent chest pains, which he is pointing towards his epigastric area as well as upper abdominal area. This pain came after eating a bowl of ____. He took some aspirin and came in to the Emergency Room. He described the pain as sharp, burning type of pain, which came at rest, but this pain did not get any better after sublingual nitroglycerin in the Emergency Room. This pain has no radiation, no associated nausea, but he did have some shortness of breath. This pain was relieved on its own. He denies any nausea, vomiting. No fever and chills. No cough or hemoptysis. No palpitations or dizziness. No PND, no orthopnea. No edema. REVIEW OF SYSTEMS: Review of the 8 systems except as mentioned above. PAST MEDICAL HISTORY: 1. Coronary artery disease, status post multiple stents, about possibly 9 stents, details unknown. Cardiac catheterization in earlier part of 2016, showed patent stents per Dr. Metz's notes. 2. Hypertension. 3. Non-morbid obesity. 4. Acid reflux. 5. History of cerebrovascular accident. 6. Hypothyroidism. 7. Anemia. 8. Depression. 9. COPD. PAST SURGICAL HISTORY: 1. History of multiple stents. 2. History of right hip replacement. SOCIAL HISTORY: The patient drinks 6-pack of beer per week. He uses sometimes cocaine, former smoker, but denies alcohol abuse. FAMILY HISTORY: Noncontributory. MEDICATIONS AND ALLERGIES: Reviewed. HOME MEDICATIONS: Reviewed. PHYSICAL EXAMINATION: [place], [place] REPORT OF CONSULTATION NAME: DEBORAH SANTACRUZ UNIT #: [id number] ROOM: 427 DOCTOR: JOCELYNE HOOVER,ABIGAILRAMÓN BIRTHDATE: [birth year] VITAL SIGNS: Blood pressure 157/84, pulse 74, respiratory rate 16. GENERAL: Alert, comfortable, in no acute distress. NECK: Supple, no distended neck veins, no carotid bruit. CHEST: Symmetrical, nontender. LUNGS: Clear to auscultation bilaterally. HEART: Regular rhythm, no S3. ABDOMEN: Obese. The patient had some significant tenderness present in the epigastric area of the right upper quadrant as well as left upper quadrant. Bowel sounds normal. No palpable masses. EXTREMITIES: Showed trace edema. Distal pulses palpable. HEART: Regular rhythm, no S3, no significant murmurs. LUNGS: Clear to auscultation bilaterally. NEUROLOGIC: The patient is alert, oriented. No focal neurologic deficit. RECTAL: Deferred. GENITOURINARY: Deferred. REVIEW OF THE DIAGNOSTIC TESTS: Labs, rhythm strips and EKGs reviewed. His magnesium is 1.4. EKG showed normal sinus rhythm with possible old inferior infarction. IMPRESSION: 1. Chest pain, atypical, myocardial infarction ruled out. Nonsustained ventricular tachycardia, possibly due to hypomagnesemia, N/R LV hypertrophy. Normal LV function by echo a few months ago. 2. Coronary artery disease, status multiple stents, cardiac catheterization 2017 apparently showed normal patent stents. 3. Hypermagnesemia. 4. Non-morbid obesity. 5. Hypertension. 6. History of cocaine use. RECOMMENDATIONS: 1. I had a long discussion with the patient regarding his atypical chest pains. I would give 2 mg magnesium sulfate intravenously for his low magnesium. 2. Increase beta blockers, metoprolol to 75 b.i.d. and monitor heart rate and blood pressures. 3. Repeat his magnesium levels today. If they are in the normal range, he can be discharged from the cardiac standpoint due to holidays and he will follow with his all purpose clerk in 1-2 weeks. 4. Aggressive risk factor modification for diet, exercise, weight loss as well as noncompliance with medications and also to quit using illicit drugs was discussed. [place], [place] REPORT OF CONSULTATION NAME: DEBORAH SANTACRUZ UNIT #: [id number] ROOM: 427 DOCTOR: JOCELYNE HOOVER,ELIN BIRTHDATE: [birth year] ELIN CASANOVA MD CM:CONSTR:REPORT OF CONSULTATION 175 11/01/17 2242 interface
--- NOTE | ~2017-10-31 | EKG ---
[place], [place] ELECTROCARDIOGRAM REPORT NAME: DEBORAH SANTACRUZ UNIT #: [id number] ROOM: 427 DOCTOR: JOCELYNE HOOVER,ELIN BIRTHDATE: [birth year] DOS: 10/31/2017 TIME: 2129 hours. IMPRESSION: 1. Sinus rhythm. 2. Poor R-wave progression. 3. Nonspecific ST-T changes. 4. Normal QT interval. ELIN CASANOVA MD CM:EKGRPT:ELECTROCARDIOGRAM REPORT 1044 1106 ELIN CASANOVA MD
[2017-10-31 13:00] VITALS: BP 160/86
[2017-10-31 13:06] LABS: BASO % 0.3 % (0.0-1.0); EOS # 0.1 10*3/uL (0.0-0.4); EOS % 1.7 % (1.0-4.0); HEMATOCRIT 32.3 % (42.0-52.0); HEMOGLOBIN 10.5 g/dl (14.0-18.0); LYMPH % 17.1 % (27.0-41.0); MEAN CELL VOLUME 88.7 fl (80.0-94.0); MEAN CORPUSCULAR HGB 28.8 pg (27.0-31.0); MEAN CORPUSCULAR HGB CONC 32.5 g/dl (33.0-37.0); MEAN PLATELET VOLUME 10.3 fl (9.6-12.3); MONO # 0.5 10*3/uL (0.1-1.0); MONO % 7.9 % (3.0-9.0); NEUT # 4.3 10*3/uL (2.3-7.9); NEUT % 71.7 % (47.0-73.0); PLATELET COUNT AUTOMATED 127 10*3/uL (130-400); RED BLOOD COUNT 3.64 10*6/uL (4.50-5.90); RED CELL DISTRI WIDTH 15.2 % (0-14.5)
[2017-10-31 13:25] LABS: ALBUMIN 2.8 gm/dl (3.1-4.5); ALKALINE PHOSPHATASE 101 U/L (45-117); BUN 30 mg/dl (7-24); CHLORIDE 104 mmol/L (98-107); CREATININE 1.65 mg/dL (0.70-1.30); POTASSIUM 4.9 mmol/L (3.5-5.1); SGOT/AST 58 IU/L (3-35); SGPT/ALT 57 U/L (12-78); SODIUM 136 mmol/L (136-145); TOTAL PROTEIN 6.1 gm/dL (6.4-8.2)
[2017-10-31 13:28] LABS: TROPONIN I < 0.015 ng/ml (<0.045)
[2017-10-31 13:55] LABS: ACT PARTIAL THROMBO TIME 23.9 SECONDS (20.8-31.5); INTERNATIONAL NORM RATIO 1.1 (2.0-3.5)
[2017-10-31 14:40] VITALS: BP 160/96
--- NOTE | 2017-10-31 14:40 | NUR ---
A 67, admitted to , under the services of RY Epstein DO with a diagnosis of CHEST PAIN. Chief complaint is CHEST PAIN. Patient arrived via stretcher from ER. Monitor applied. Initial assessment completed. Vital signs taken and recorded. RY EPSTEIN DO notified of admission to the unit. Orders received. See assessment for past medical history, medications and allergies. Patient and/or family oriented to unit. [facility]. Clothing/patient valuable form completed. NICOLE RENTERIA
[2017-10-31 16:00] VITALS: BP 146/75
--- NOTE | 2017-10-31 16:40 | NUR ---
MEDICATED PO TYLENOL FOR C/O CHEST PAIN. INFORMED PT THAT LUNG SCAN WAS ORDERED AND THEY WERE COMING IN TO DO IT. VOICES UNDERSTANDING
[2017-10-31 20:00] VITALS: BP 154/94
--- NOTE | 2017-10-31 20:52 | NUR ---
SPOKE TO AT THIS TIME CONCERNING PATIENT'S C/O CHEST PAIN. PO TYLENOL ADMINISTERED PER PRN ORDER AT THIS TIME, BUT PATIENT STATES THIS TYLENOL DID NOT WORK EARLIER. INSTRUCTED TO ORDER 400 MG OF PO MOTRIN X1 DOSE.
--- NOTE | 2017-10-31 21:36 | NUR ---
PO MOTRIN ADMINISTERED PER ONE TIME ORDER. PATIENT STATES EARLIER TYLENOL INEFFECTIVE. WILL MONITOR. CALL LIGHT LEFT IN REACH.
--- NOTE | 2017-10-31 22:34 | NUR ---
PATIENT STATES EARLIER MOTRIN HELPED SOME WITH HIS CHEST PAIN. STATES HE IS NOT REALLY HAVING ANYMORE AND IS JUST COMPLAINING OF HEARTBURN. WILL MONITOR. CALL LIGHT LEFT IN REACH.
[2017-11-01] VITALS (7 sets, daily range): BP systolic 132–176; BP diastolic 80–104
--- NOTE | 2017-11-01 00:56 | NUR ---
NOTIFIED OF 8 BEAT RUN OF [facility] AT 2307. PATIENT DENIES ANY NEW OR WORSENING SYMPTOMS, STATING THAT HE JUST FEELS HEARTBURN AT THIS TIME. INSTRUCTED TO OBSERVE PATIENT FOR NOW.
--- NOTE | 2017-11-01 06:00 | NUR ---
PT MEDICATED WITH PO TYLENOL PER PRN ORDER FOR C/O CHEST PAIN 04/18. WILL MONITOR EFFECTIVENESS. CALL LIGHT LEFT IN REACH.
[2017-11-01 06:38] LABS: BASO % 0.3 % (0.0-1.0); EOS # 0.2 10*3/uL (0.0-0.4); EOS % 4.2 % (1.0-4.0); HEMATOCRIT 28.5 % (42.0-52.0); HEMOGLOBIN 9.4 g/dl (14.0-18.0); LYMPH % 26.6 % (27.0-41.0); MEAN CELL VOLUME 89.1 fl (80.0-94.0); MEAN CORPUSCULAR HGB 29.4 pg (27.0-31.0); MEAN PLATELET VOLUME 10.9 fl (9.6-12.3); MONO # 0.3 10*3/uL (0.1-1.0); MONO % 9.4 % (3.0-9.0); NEUT # 2.1 10*3/uL (2.3-7.9); NEUT % 58.1 % (47.0-73.0); PLATELET COUNT AUTOMATED 102 10*3/uL (130-400); RED CELL DISTRI WIDTH 15.1 % (0-14.5); WHITE BLOOD COUNT 3.6 10*3/uL (4.8-10.8)
--- NOTE | 2017-11-01 07:01 | NUR ---
IN TO SEE PATIENT AT THIS TIME
[2017-11-01 07:10] LABS: CREATININE 1.46 mg/dL (0.70-1.30); POTASSIUM 4.3 mmol/L (3.5-5.1)
--- NOTE | 2017-11-01 07:22 | NUR ---
CALLED DR SEO ANSWERING SERVICE. TAX CLERK SAID KEDAR IS COVERING FOR HIM AT THIS TIME AND THAT SHE WOULD PAGE HIM.
[2017-11-01 07:23] LABS: THYROID STIM HORMONE (HS) 0.911 uIU/ml (0.358-4.75)
--- NOTE | 2017-11-01 08:00 | NUR ---
ASSUMED CARE OF PATIENT. PATIENT WAS AWAKE AND ALERT UPON ASSESSMENT. HE WAS SITTING IN BED, PLEASANT DEMEANOR. COOPERATIVE WITH NURSING DIRECTION. PATIENT HAS DIMINISHED LUNGS, NO EDEMA NOTED, AND IN STABLE CONDITION. C/O OF MILD CHEST PAIN, BUT STATES NOT INTOLERABLE.
[2017-11-01 08:26] LABS: VITAMIN D, 25-HYDROXY 17.6 ng/mL (30-100)
--- NOTE | 2017-11-01 15:22 | NUR ---
CARDIOLOGY CONSULT HAS BEEN CHANGED TO [facility]. SPOKE WITH DR CASNAOVA, WHO SAYS HE WILL SEE HIM IN THE MORNING. PATIENT HAS RECENT POTASSIUM AND MAGNESIUM LEVELS THAT WERE DRAWN THIS MORNING.
--- NOTE | 2017-11-01 16:00 | NUR ---
DR CASANOVA DECIDED TO LOOK AT PATIENT'S CHART. SAID THAT ONCE THE PATIENT RECEIVES HIS MAG RUN AND HAS HIS MAG LEVELS CHECKED, HE COULD BE DISCHARGED LONG MAG WAS WITHIN NORMAL LIMITS.
--- NOTE | 2017-11-01 19:30 | NUR ---
PT. AWAKE, ALERT, AND ORIENTED X 3 AT THIS TIME. PT. DENIES SOB ON RA, C/O MILD, INTERMITTENT CP, BP - 138/80, P - 92 AT THIS TIME, SPO2- 100%. CALL LIGHT WITHIN REACH, BED IN LOWEST POSITION. SEE SHIFT ASSESSMENT.
--- NOTE | 2017-11-01 19:34 | NUR ---
CALLED DR. LAKE AT THIS TIME REGARDING PTS. C/O OF CHEST PAIN/LOW BACK PAIN RATED 9/10, AND REFUSAL TO TAKE PRN TYLENOL. UPDATED DR. LAKE ON PTS. CURRENT VITALS OF BP - 138/80, P - 92, AND PT. STATING "I WANT THE SHOT, BUT THEY WON'T GIVE IT TO ME. DR. LAKE UPDATED ON PTS. POSSIBLE D/C TODAY THAT WAS POST-PONED D/T A NUMBER OF D/C'S THAT WERE DONE TODAY. PER DR. LAKE IT IS OKAY TO ORDER AND ADM. A ONE-TIME DOSE OF TORADOL AT THIS TIME.
--- NOTE | 2017-11-01 22:17 | NUR ---
PT. STATED HE FELT SOB AT THIS TIME. SPO2 - 95% AT THIS TIME, PT. REQUESTED NC AT THIS TIME. NC ON @ 2L.
[2017-11-02] VITALS: BP 160/90
[2017-11-02 01:40] VITALS: BP 148/84
[2017-11-02 08:00] VITALS: BP 166/76
--- NOTE | 2017-11-02 12:34 | NUR ---
[facility] Discharge instructions reviewed with patient/family. Patient receptive and verbalizes understanding. Follow-up care arranged. Written instructions given to patient/family. SÁNCHEZ FIELD
== END 2017-11-02 12:33 | disposition home or self-care (01) | DRG 641 ==
LOC: ED 12:34 → EDHOLD 13:10 → 4E 13:34
PROVIDERS: Emergency Medicine; Family Medicine; ADMIT Emergency Medicine
DX: E83.42 Hypomagnesemia (principal); I47.2 Ventricular tachycardia; E11.22 Type 2 diabetes mellitus with diabetic chronic kidney disease; E11.40 Type 2 diabetes mellitus with diabetic neuropathy, unspecified; I50.32 Chronic diastolic (congestive) heart failure; I13.0 Hypertensive heart and chronic kidney disease with heart failure and stage 1 through stage 4 chronic kidney disease, or unspecified chronic kidney disease; R07.89 Other chest pain; I25.10 Atherosclerotic heart disease of native coronary artery without angina pectoris; F41.1 Generalized anxiety disorder; E03.9 Hypothyroidism, unspecified; F32.9 Major depressive disorder, single episode, unspecified; G40.909 Epilepsy, unspecified, not intractable, without status epilepticus; M19.90 Unspecified osteoarthritis, unspecified site; N40.0 Benign prostatic hyperplasia without lower urinary tract symptoms; Z96.641 Presence of right artificial hip joint; E78.5 Hyperlipidemia, unspecified; G89.29 Other chronic pain; F14.90 Cocaine use, unspecified, uncomplicated; J44.9 Chronic obstructive pulmonary disease, unspecified; K21.9 Gastro-esophageal reflux disease without esophagitis; N18.3 Chronic kidney disease, stage 3 (moderate); Z88.1 Allergy status to other antibiotic agents; Z79.4 Long term (current) use of insulin; Z79.899 Other long term (current) drug therapy; Z86.73 Personal history of transient ischemic attack (TIA), and cerebral infarction without residual deficits; I25.2 Old myocardial infarction; Z95.5 Presence of coronary angioplasty implant and graft; Z90.49 Acquired absence of other specified parts of digestive tract; Z89.412 Acquired absence of left great toe; Z89.432 Acquired absence of left foot; Z87.891 Personal history of nicotine dependence; Z80.9 Family history of malignant neoplasm, unspecified; Z82.49 Family history of ischemic heart disease and other diseases of the circulatory system

== ENCOUNTER 2017-11-11 17:16 | Inpatient (IN) | payer OTHER, MEDICAID ==
[~2017-11-11] VITALS: Ht 185.4 cm; Wt 110.4 kg
--- NOTE | ~2017-11-11 | CON ---
[place], [place] REPORT OF CONSULTATION NAME[id number] UNIT #: [id number] ROOM: 505 DOCTOR: PAM ALVARADO MD BIRTHDATE: [birth year] DOS: 11/12/2017 HISTORY OF PRESENT ILLNESS: This is a 67-year-old -[place] man with morbid obesity, coronary artery disease. He had stents deployed in the right coronary artery a few years ago and a heart catheterization last year had demonstrated fairly patent vessels with normal LV systolic function. He also has a narrow complex regular SVT at a rate of about 180 beats per minute that has been documented few times in the past. This only appeared about a couple of years ago. He has never had atrial fibrillation. He does have COPD, diabetes mellitus, GERD, gastric ulcers, hypothyroidism and BPH. 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 He had numerous admissions to this hospital. He is in this hospital at least more than three times a month for palpitations and chest pain and has almost all the time has ruled out for myocardial infarction. He comes in again with some palpitations where his heart was racing and then it stopped. He had some chest pain which started yesterday and it is still lingering on. He had mild dizziness, but no loss of consciousness. No swelling of the lower extremities. He did sweat with palpitations. HOME MEDICATIONS: He is on Combivent, alprazolam, atorvastatin 40, Depakote 250 daily at night, Cymbalta 60 daily, ferrous sulfate, gabapentin, lisinopril 2.5 mg daily, magnesium oxide 400 mg b.i.d., metoprolol 50 b.i.d., Protonix and Carafate and also insulin/Levemir 40 units b.i.d. PHYSICAL EXAMINATION: GENERAL: This is a patient who is moderately obese. He is alert, oriented. Speech is not very easily understood, but this is chronic. VITAL SIGNS: Pulse is regular at 88 beats per minute, blood pressure 151/84. NECK: JVP is normal, no bruit in the neck. HEART: There is no murmur. EXTREMITIES: There is no edema in the lower extremities. Pedal pulses are palpable. RESPIRATORY: Breath sounds are mildly diminished bilaterally with a few adventitious sounds. ABDOMEN: Rather large and nontender. Several ECGs showed normal sinus rhythm and sinus tachycardia with old inferior wall DC and probably old anterior wall DC. These ECGs are same as in the last year or two. Monitor did show a narrow complex supraventricular tachycardia at about 180 beats per minute. This resolved spontaneously. Troponin I levels have been normal. Glucose 422 mg/dL on admission, BUN 24, creatinine 1.72, potassium 4.3. IMPRESSION: 1. This patient had narrow complex supraventricular tachycardia, which had [place], [place] REPORT OF CONSULTATION NAME: DEBORAH SANTACRUZ UNIT #: [id number] ROOM: 505 DOCTOR: CHRISTIANO HOOVER,PAM BIRTHDATE: [birth year] resolved spontaneously while inpatient and presumably had the same rhythm when he had palpitations. 2. Chest pain. He has coronary artery disease, but symptoms have persisted for over a day and troponin level is normal. ECG has shown no change., therefore I do not suspect this to be cardiac. I do not have any new recommendations for this gentleman. If blood pressure stays high, it is probably a good idea to increase the dose of metoprolol to 75 mg b.i.d. and it may help with SVT. I thank you for this consult. PAM ALVARADO MD CM:CONSTR:REPORT OF CONSULTATION 1914 11/12/17 2331 interface
--- NOTE | ~2017-11-11 | EKG ---
[place], [place] ELECTROCARDIOGRAM REPORT NAME: DEBORAH SANTACRUZ UNIT #: [id number] ROOM: [facility] DOCTOR: PAM ALVARADO MD BIRTHDATE: [birth year] DOS: 11/11/2017 TIME: 1732 hours. IMPRESSION: 1. Sinus tachycardia at 126 beats per minute. 2. Old anterior wall myocardial infarction and an old inferior wall myocardial infarction. 3. No significant change from previous ECGs of the last year or so. PAM ALVARADO MD CM:EKGRPT:ELECTROCARDIOGRAM REPORT 1152 1235 PAM ALVARADO MD
--- NOTE | ~2017-11-11 | EKG ---
[place], [place] ELECTROCARDIOGRAM REPORT NAME: DEBORAH SANTACRUZ UNIT #: [id number] ROOM: [facility] DOCTOR: PAM ALVARADO MD BIRTHDATE: [birth year] DOS: 11/11/2017 TIME: 2043 hours IMPRESSION: 1. Sinus tachycardia at 117 beats per minute. 2. Old inferior and anterior wall myocardial infarctions. 3. No significant change from ECG done at 1722 hours of the same day. PAM ALVARADO MD CM:EKGRPT:ELECTROCARDIOGRAM REPORT 1152 1241 PAM ALVARADO MD
--- NOTE | ~2017-11-11 | EKG ---
[place], [place] ELECTROCARDIOGRAM REPORT NAME: DEBORAH SANTACRUZ UNIT #: [id number] ROOM: [facility] DOCTOR: PAM ALVARADO MD BIRTHDATE: [birth year] DOS: 11/11/2017 TIME: 2259 hours IMPRESSION: 1. Sinus tachycardia at 103 beats per minute. 3. Old inferior and old anterior wall myocardial infarctions are likely to be present. 3. An abnormal ECG. 4. No significant change from an ECG done at 2043 hours of the same day. PAM ALVARADO MD CM:EKGRPT:ELECTROCARDIOGRAM REPORT 1152 1243 PAM ALVARADO MD
--- NOTE | ~2017-11-11 | PR ---
[place], [place] PROGRESS NOTE NAME: DEBORAH SANTACRUZ [facility] #: [id number] UNIT #: [id number] ROOM: 505 DOCTOR: NAIN THACKER MD BIRTHDATE: [birth year] DOS: 11/13/2017 SUBJECTIVE: A 24-hour events noted. Discussed with the nursing staff. The patient was seen by Dr. Metz. Lashay felt that his chest pain is probably noncardiac. No other significant cardiac dysrhythmia. The patient is comfortably sleeping now. He is in sinus rhythm. OBJECTIVE: VITAL SIGNS: Blood pressure is 140/70. HEENT: Unremarkable. NECK: Supple, no JVD. LUNGS: Clear. HEART: Sounds are regular. NEUROLOGIC: No changes. REVIEW OF SYSTEMS: The patient is improving. A 6-8 systems reviewed. LABORATORY DATA: Hemoglobin 10 and hematocrit 31. Electrolytes, creatinine is 1.3. All other labs are within normal limits. IMPRESSION: The patient with cardiomyopathy, history of drug abuse in the past, history of ventricular tachycardia, and nonischemic cardiomyopathy. RECOMMENDATIONS: Continue the metoprolol, NATAN inhibitor, Lipitor, and aspirin. Monitor the heart rate and blood pressure closely. Increase activity and we will follow up. The patient is not in congestive heart failure. NAIN THACKER MD CM:PNTRANS 0718 NAIN THACKER MD 11/13/17 0855 interface
[2017-11-11 17:19] VITALS: BP 156/66
[2017-11-11 17:40] VITALS: BP 135/81
[2017-11-11 17:41] LABS: BASO % 0.6 % (0.0-1.0); EOS # 0.1 10*3/uL (0.0-0.4); HEMATOCRIT 31.2 % (42.0-52.0); HEMOGLOBIN 10.4 g/dl (14.0-18.0); LYMPH # 1.3 10*3/uL (1.3-4.4); LYMPH % 26.7 % (27.0-41.0); MEAN CELL VOLUME 87.6 fl (80.0-94.0); MEAN CORPUSCULAR HGB 29.2 pg (27.0-31.0); MEAN CORPUSCULAR HGB CONC 33.3 g/dl (33.0-37.0); MEAN PLATELET VOLUME 10.7 fl (9.6-12.3); MONO # 0.3 10*3/uL (0.1-1.0); MONO % 7.2 % (3.0-9.0); NEUT # 2.9 10*3/uL (2.3-7.9); NEUT % 61.4 % (47.0-73.0); PLATELET COUNT AUTOMATED 146 10*3/uL (130-400); RED BLOOD COUNT 3.56 10*6/uL (4.50-5.90); RED CELL DISTRI WIDTH 14.4 % (0-14.5); WHITE BLOOD COUNT 4.7 10*3/uL (4.8-10.8)
[2017-11-11 17:49] LABS: ACT PARTIAL THROMBO TIME 29.9 SECONDS (20.8-31.5); INTERNATIONAL NORM RATIO 1.2 (2.0-3.5)
[2017-11-11 17:59] LABS: ALKALINE PHOSPHATASE 133 U/L (45-117); BUN 24 mg/dl (7-24); CHLORIDE 96 mmol/L (98-107); CREATININE 1.72 mg/dL (0.70-1.30); POTASSIUM 4.3 mmol/L (3.5-5.1); SGOT/AST 14 IU/L (3-35); SGPT/ALT 43 U/L (12-78); SODIUM 132 mmol/L (136-145)
[2017-11-11 18:01] LABS: TROPONIN I < 0.015 ng/ml (<0.045)
[2017-11-11 18:10] VITALS: BP 140/71
[2017-11-11 18:37] LABS: URINE AMPHETAMINES < 1000 (1000ng/ml); URINE BARBITURATES < 200 (200ng/ml); URINE BENZODIAZEPINES < 200 (200ng/ml); URINE CANNABINOIDS (THC) < 50 (50ng/ml); URINE COCAINE < 300 (300ng/ml); URINE METHADONE < 300 (300ng/ml); URINE OPIATES < 300 (300ng/ml); URINE PHENCYCLIDINE < 25 (25ng/ml)
[2017-11-11 18:40] VITALS: BP 158/85
[2017-11-11 19:10] VITALS: BP 144/84
[2017-11-11 20:00] VITALS: BP 144/84
[2017-11-11] MEDS ORDERED: MAGNESIUM400 MG PO (22:18)
[2017-11-11] MEDS ORDERED: CARAFATE1 G1 PO (22:19)
[2017-11-11] MEDS ORDERED: COMBIVENT RESPIM4 GM INH (22:20)
[2017-11-11] MEDS ORDERED: LEVEMIR100 UNIT/1 SC (22:21)
[2017-11-12] VITALS: BP 144/75
[2017-11-12 04:02] VITALS: BP 130/85
[2017-11-12 07:28] LABS: BASO % 0.5 % (0.0-1.0); EOS # 0.2 10*3/uL (0.0-0.4); EOS % 5.1 % (1.0-4.0); HEMATOCRIT 29.7 % (42.0-52.0); LYMPH # 1.1 10*3/uL (1.3-4.4); LYMPH % 29.5 % (27.0-41.0); MEAN CELL VOLUME 87.6 fl (80.0-94.0); MEAN CORPUSCULAR HGB 29.5 pg (27.0-31.0); MEAN CORPUSCULAR HGB CONC 33.7 g/dl (33.0-37.0); MONO # 0.3 10*3/uL (0.1-1.0); NEUT # 2.1 10*3/uL (2.3-7.9); NEUT % 55.8 % (47.0-73.0); PLATELET COUNT AUTOMATED 143 10*3/uL (130-400); RED BLOOD COUNT 3.39 10*6/uL (4.50-5.90); RED CELL DISTRI WIDTH 14.5 % (0-14.5); WHITE BLOOD COUNT 3.8 10*3/uL (4.8-10.8)
[2017-11-12 07:57] LABS: INTERNATIONAL NORM RATIO 1.1 (2.0-3.5)
[2017-11-12 08:00] VITALS: BP 160/74
[2017-11-12 08:00] LABS: ALBUMIN 2.7 gm/dl (3.1-4.5); ALKALINE PHOSPHATASE 115 U/L (45-117); BUN 24 mg/dl (7-24); CHLORIDE 103 mmol/L (98-107); CHOLESTEROL 147 mg/dL (<200); CREATININE 1.35 mg/dL (0.70-1.30); HDL CHOLESTEROL 42 mg/dl (40-60); LDL CHOLESTEROL 35 mg/dL (9-159); PHOSPHOROUS 4.1 mg/dL (2.5-4.9); SGOT/AST 14 IU/L (3-35); SGPT/ALT 36 U/L (12-78); SODIUM 138 mmol/L (136-145); TOTAL PROTEIN 6.1 gm/dL (6.4-8.2); TRIGLYCERIDES 348 mg/dl (<150); VLDL CHOLESTEROL 70 mg/dL (6-40)
[2017-11-12 08:47] LABS: VITAMIN D, 25-HYDROXY 15.6 ng/mL (30-100)
[2017-11-12 12:00] VITALS: BP 157/90
[2017-11-12 16:00] VITALS: BP 125/57
[2017-11-12 20:00] VITALS: BP 143/89
[2017-11-13] VITALS: BP 143/75
[2017-11-13 07:00] LABS: BASO % 0.6 % (0.0-1.0); EOS # 0.2 10*3/uL (0.0-0.4); EOS % 4.7 % (1.0-4.0); LYMPH # 1.5 10*3/uL (1.3-4.4); MEAN CELL VOLUME 89.3 fl (80.0-94.0); MEAN CORPUSCULAR HGB 28.8 pg (27.0-31.0); MEAN CORPUSCULAR HGB CONC 32.3 g/dl (33.0-37.0); MEAN PLATELET VOLUME 10.6 fl (9.6-12.3); MONO # 0.4 10*3/uL (0.1-1.0); MONO % 7.1 % (3.0-9.0); NEUT # 2.9 10*3/uL (2.3-7.9); NEUT % 57.2 % (47.0-73.0); PLATELET COUNT AUTOMATED 147 10*3/uL (130-400); RED BLOOD COUNT 3.47 10*6/uL (4.50-5.90); RED CELL DISTRI WIDTH 14.7 % (0-14.5); WHITE BLOOD COUNT 5.1 10*3/uL (4.8-10.8)
[2017-11-13 07:35] LABS: CHLORIDE 103 mmol/L (98-107); POTASSIUM 4.4 mmol/L (3.5-5.1); SODIUM 139 mmol/L (136-145)
[2017-11-13 07:42] LABS: BUN 22 mg/dl (7-24); PHOSPHOROUS 3.3 mg/dL (2.5-4.9)
[2017-11-13 08:00] VITALS: BP 136/76
[2017-11-13 12:00] VITALS: BP 140/68
[2017-11-13 16:00] VITALS: BP 115/70
[2017-11-13 20:00] VITALS: BP 121/75
[2017-11-14] VITALS: BP 142/78
[2017-11-14 07:05] LABS: BASO % 0.5 % (0.0-1.0); EOS # 0.2 10*3/uL (0.0-0.4); EOS % 4.3 % (1.0-4.0); HEMATOCRIT 32.8 % (42.0-52.0); HEMOGLOBIN 10.8 g/dl (14.0-18.0); LYMPH # 1.1 10*3/uL (1.3-4.4); LYMPH % 25.3 % (27.0-41.0); MEAN CELL VOLUME 90.9 fl (80.0-94.0); MEAN CORPUSCULAR HGB 29.9 pg (27.0-31.0); MEAN CORPUSCULAR HGB CONC 32.9 g/dl (33.0-37.0); MEAN PLATELET VOLUME 10.7 fl (9.6-12.3); MONO # 0.3 10*3/uL (0.1-1.0); NEUT # 2.7 10*3/uL (2.3-7.9); NEUT % 60.9 % (47.0-73.0); PLATELET COUNT AUTOMATED 167 10*3/uL (130-400); RED BLOOD COUNT 3.61 10*6/uL (4.50-5.90); RED CELL DISTRI WIDTH 14.9 % (0-14.5); WHITE BLOOD COUNT 4.4 10*3/uL (4.8-10.8)
[2017-11-14 07:17] LABS: ALBUMIN 2.8 gm/dl (3.1-4.5); ALKALINE PHOSPHATASE 116 U/L (45-117); BUN 21 mg/dl (7-24); CHLORIDE 102 mmol/L (98-107); CREATININE 1.27 mg/dL (0.70-1.30); PHOSPHOROUS 2.8 mg/dL (2.5-4.9); POTASSIUM 4.5 mmol/L (3.5-5.1); SGOT/AST 22 IU/L (3-35); SGPT/ALT 35 U/L (12-78); SODIUM 135 mmol/L (136-145); TOTAL PROTEIN 6.8 gm/dL (6.4-8.2)
[2017-11-14 08:00] VITALS: BP 152/74
[2017-11-14] MEDS ORDERED: Vitamin D PO (11:13)
[2017-11-14] MEDS ORDERED: LEVEMIR100 UNIT/1 SC (11:13)
== END 2017-11-14 13:00 | disposition home or self-care (01) | DRG 683 ==
LOC: ED 17:16 → EDHOLD 18:19 → 5E 18:19
PROVIDERS: Emergency Medicine; Family Medicine; Hospitalist; Student in an Organized Health Care Education/Training Program
DX: N17.0 Acute kidney failure with tubular necrosis (principal); I47.2 Ventricular tachycardia; E44.0 Moderate protein-calorie malnutrition; E11.22 Type 2 diabetes mellitus with diabetic chronic kidney disease; E11.42 Type 2 diabetes mellitus with diabetic polyneuropathy; E83.42 Hypomagnesemia; I47.1 Supraventricular tachycardia; I42.9 Cardiomyopathy, unspecified; E87.1 Hypo-osmolality and hyponatremia; I50.32 Chronic diastolic (congestive) heart failure; I13.0 Hypertensive heart and chronic kidney disease with heart failure and stage 1 through stage 4 chronic kidney disease, or unspecified chronic kidney disease; R07.9 Chest pain, unspecified; I25.10 Atherosclerotic heart disease of native coronary artery without angina pectoris; F32.9 Major depressive disorder, single episode, unspecified; N18.3 Chronic kidney disease, stage 3 (moderate); K21.9 Gastro-esophageal reflux disease without esophagitis; N40.1 Benign prostatic hyperplasia with lower urinary tract symptoms; J44.9 Chronic obstructive pulmonary disease, unspecified; F41.1 Generalized anxiety disorder; E78.5 Hyperlipidemia, unspecified; E03.9 Hypothyroidism, unspecified; G89.29 Other chronic pain; D64.9 Anemia, unspecified; M1A.9XX0 Chronic gout, unspecified, without tophus (tophi); M51.37 Other intervertebral disc degeneration, lumbosacral region; E66.09 Other obesity due to excess calories; G40.909 Epilepsy, unspecified, not intractable, without status epilepticus; Z96.641 Presence of right artificial hip joint; Z95.5 Presence of coronary angioplasty implant and graft; I69.30 Unspecified sequelae of cerebral infarction; Z68.31 Body mass index [BMI] 31.0-31.9, adult; Z90.49 Acquired absence of other specified parts of digestive tract; Z79.4 Long term (current) use of insulin; Z91.14 Patient's other noncompliance with medication regimen; Z89.412 Acquired absence of left great toe; Z88.8 Allergy status to other drugs, medicaments and biological substances; I25.2 Old myocardial infarction; Z79.899 Other long term (current) drug therapy; Z88.1 Allergy status to other antibiotic agents; Z87.891 Personal history of nicotine dependence; Z80.0 Family history of malignant neoplasm of digestive organs; Z82.3 Family history of stroke; Z82.49 Family history of ischemic heart disease and other diseases of the circulatory system

== ENCOUNTER 2017-11-15 12:58 | Emergency (ER) | payer OTHER, MEDICAID ==
[~2017-11-15] VITALS: Ht 182.8 cm; Wt 106.1 kg
--- NOTE | ~2017-11-15 | EKG ---
[place], [place] ELECTROCARDIOGRAM REPORT NAME: DEBORAH SANTACRUZ UNIT #: [id number] ROOM: DOCTOR: PAM ALVARADO MD BIRTHDATE: [birth year] DOS: 11/15/2017 TIME: 1301 hours. IMPRESSION: 1. Normal sinus rhythm at 90 beats per minute. 2. Old inferior and anterior wall myocardial infarctions. 3. No significant change from ECG of 11/11/2017. PAM ALVARADO MD CM:EKGRPT:ELECTROCARDIOGRAM REPORT 1152 1245 PAM ALVARADO MD
[~2017-11-15 12:58] MED LIST changes: +LEVEMIR100 UNIT/1 SC; +Vitamin D PO
[2017-11-15 13:00] VITALS: BP 113/65
[2017-11-15 13:34] LABS: BASO % 0.5 % (0.0-1.0); EOS # 0.3 10*3/uL (0.0-0.4); EOS % 4.1 % (1.0-4.0); HEMATOCRIT 35.1 % (42.0-52.0); HEMOGLOBIN 11.7 g/dl (14.0-18.0); LYMPH # 1.4 10*3/uL (1.3-4.4); LYMPH % 22.6 % (27.0-41.0); MEAN CELL VOLUME 89.1 fl (80.0-94.0); MEAN CORPUSCULAR HGB 29.7 pg (27.0-31.0); MEAN CORPUSCULAR HGB CONC 33.3 g/dl (33.0-37.0); MONO # 0.5 10*3/uL (0.1-1.0); MONO % 8.3 % (3.0-9.0); NEUT # 3.9 10*3/uL (2.3-7.9); PLATELET COUNT AUTOMATED 200 10*3/uL (130-400); RED BLOOD COUNT 3.94 10*6/uL (4.50-5.90); RED CELL DISTRI WIDTH 14.8 % (0-14.5); WHITE BLOOD COUNT 6.1 10*3/uL (4.8-10.8)
[2017-11-15 13:51] LABS: ALKALINE PHOSPHATASE 127 U/L (45-117); BUN 17 mg/dl (7-24); CHLORIDE 99 mmol/L (98-107); CREATININE 1.59 mg/dL (0.70-1.30); POTASSIUM 4.2 mmol/L (3.5-5.1); SGOT/AST 19 IU/L (3-35); SGPT/ALT 30 U/L (12-78); SODIUM 138 mmol/L (136-145); TOTAL PROTEIN 7.4 gm/dL (6.4-8.2)
[2017-11-15 13:52] LABS: TROPONIN I < 0.015 ng/ml (<0.045)
[2017-11-15 13:53] LABS: ACT PARTIAL THROMBO TIME 33.1 SECONDS (20.8-31.5); INTERNATIONAL NORM RATIO 1.2 (2.0-3.5)
== END 2017-11-15 15:45 | disposition home or self-care (01) ==
LOC: ED 12:58
PROVIDERS: Emergency Medicine
DX: R42 Dizziness and giddiness (principal); R00.2 Palpitations; E83.42 Hypomagnesemia; F14.10 Cocaine abuse, uncomplicated; I25.10 Atherosclerotic heart disease of native coronary artery without angina pectoris; I13.0 Hypertensive heart and chronic kidney disease with heart failure and stage 1 through stage 4 chronic kidney disease, or unspecified chronic kidney disease; E11.22 Type 2 diabetes mellitus with diabetic chronic kidney disease; N18.3 Chronic kidney disease, stage 3 (moderate); I50.9 Heart failure, unspecified; J44.9 Chronic obstructive pulmonary disease, unspecified; K21.9 Gastro-esophageal reflux disease without esophagitis; E78.5 Hyperlipidemia, unspecified; E03.9 Hypothyroidism, unspecified; E66.9 Obesity, unspecified; E11.65 Type 2 diabetes mellitus with hyperglycemia; Z87.891 Personal history of nicotine dependence; Z79.4 Long term (current) use of insulin; Z98.890 Other specified postprocedural states; Z96.641 Presence of right artificial hip joint; Z90.49 Acquired absence of other specified parts of digestive tract; Z79.899 Other long term (current) drug therapy; Z88.1 Allergy status to other antibiotic agents; Z88.8 Allergy status to other drugs, medicaments and biological substances

== ENCOUNTER 2017-11-16 17:40 | Inpatient (IN) | payer OTHER, MEDICAID ==
[~2017-11-16] VITALS: Ht 172.7 cm; Wt 106.6 kg
--- NOTE | ~2017-11-16 | PR ---
[place], [place] PROGRESS NOTE NAME: [facility] [id number] UNIT #: [id number] ROOM: 503 DOCTOR: PAM ALVARADO MD BIRTHDATE: [birth year] DOS: SUBJECTIVE: This patient has been in this hospital maybe 40-50 times this year. He is back at this hospital almost on a weekly basis because of chest pain and he has almost always ruled out for acute myocardial infarction. Heart catheterization done a year and half ago demonstrated patent stents in the RCA, normal LV function. He also has SVT at a rate of 180 beats per minute, which has not bothered him except when he was here last time. OBJECTIVE: GENERAL: He looks well, remains obese, alert, oriented. VITAL SIGNS: Fine with blood pressure ____. LUNGS: Breath sounds are diminished. IMPRESSION AND PLAN: This patient has frequent recurrent chest pain that ____ noncardiac. From cardiac standpoint, he may be discharged home. PAM ALVARADO MD CM:PNTRANS 1203 1336 PAM ALVARADO MD 11/18/17 1336 interface
--- NOTE | ~2017-11-16 | EKG ---
[place], [place] ELECTROCARDIOGRAM REPORT NAME: DEBORAH SANTACRUZ UNIT #: [id number] ROOM: [facility] DOCTOR: PAM ALVARADO MD BIRTHDATE: [birth year] DOS: 11/16/2017 TIME: 1804 hours. FINDINGS: 1. Normal sinus rhythm at 84 beats per minute. 2. An old inferior wall DC. 3. Poor R-wave progression is noted. 4. An abnormal ECG. 5. No previous tracing is available for comparison. PAM ALVARADO MD CM:EKGRPT:ELECTROCARDIOGRAM REPORT 1347 1748 PAM ALVARADO MD
--- NOTE | ~2017-11-16 | CON ---
[place], [place] REPORT OF CONSULTATION NAME: DEBORAH SANTACRUZ [facility] #: [id number] UNIT #: [id number] ROOM: 503 DOCTOR: NAIN THACKER MD BIRTHDATE: [birth year] DOS: 11/17/2017 HISTORY OF PRESENT ILLNESS: I am covering for Dr. Metz. The patient was recently discharged. He was seen by Dr. Metz on 11/12/2017. The patient apparently states that when he stands up, he is feeling extremely dizzy. He states that he did have some loss of consciousness and he fell, and hit the occipital area. CT scan of the head is negative. Orthostatic pressures are not documented. It looks like he says that whenever he stands up his pressure is dropping and he feels extremely lightheaded. He is on Lopressor 50 b.i.d. He denies any chest discomfort, surprisingly, this time. PAST MEDICAL HISTORY: History of cardiomyopathy, CHF, history of drug abuse, history of CVA, leukopenia, moderate protein malnutrition, history of previous myocardial infarction, and diabetes mellitus. PAST SURGICAL HISTORY: Coronary artery stent placement, history of hip replacement, and amputation of the great toe. SOCIAL HISTORY: Admits to alcohol abuse. A 6-pack of beer every day. Cocaine abuse. Former smoker. FAMILY HISTORY: Positive for coronary artery. ALLERGIES: VANCOMYCIN. HOME MEDICATIONS: He is on lisinopril 2.5 daily and metoprolol 50 b.i.d. REVIEW OF SYSTEMS: Complains of significant dizziness. No fever, no chills, no chest discomfort, no shortness of breath. As mentioned, he had a syncopal episode. ENDOCRINE: Intact. PHYSICAL EXAMINATION: VITAL SIGNS: Blood pressure 105/50. Orthostatic pressures are not done. HEENT: Unremarkable. NECK: Supple, no JVD. LUNGS: Clear. HEART: Sounds are regular. NEUROLOGICAL: Stable. LABORATORY DATA: Sodium 134, potassium 4.3, and creatinine is 3.1. Liver functions are normal. Troponin is negative. Hemoglobin 10.[address] of the head is normal. CT of the neck is normal. IMPRESSION: Probable orthostatic hypotension with a near syncopal episode and dizziness, sinus tachycardia, normocytic anemia, hyponatremia, history of systolic congestive heart failure, COPD, and chronic renal disease. RECOMMENDATIONS: Gentle hydration, decrease the beta blockers, do orthostatic blood pressures, use AMNA hose stockings if needed. , If an echo has not been [place], [place] REPORT OF CONSULTATION NAME: DEBORAH SANTACRUZ UNIT #: [id number] ROOM: [facility] DOCTOR: KEDAR HOOVER,NAIN BIRTHDATE: [birth year] done for the last 6 months, consider to repeat an echocardiogram to assess his ejection fraction. I thank on behalf of Dr. Metz for this consultation and we will follow up. NAIN THACKER MD CM:CONSTR:REPORT OF CONSULTATION 0740 11/17/17 0755 interface
[2017-11-16 18:11] VITALS: BP 97/70
[2017-11-16 18:40] LABS: BASO % 0.4 % (0.0-1.0); EOS # 0.3 10*3/uL (0.0-0.4); EOS % 4.6 % (1.0-4.0); HEMATOCRIT 32.9 % (42.0-52.0); HEMOGLOBIN 10.9 g/dl (14.0-18.0); LYMPH # 2.7 10*3/uL (1.3-4.4); LYMPH % 37.6 % (27.0-41.0); MEAN CELL VOLUME 88.9 fl (80.0-94.0); MEAN CORPUSCULAR HGB 29.5 pg (27.0-31.0); MEAN CORPUSCULAR HGB CONC 33.1 g/dl (33.0-37.0); MEAN PLATELET VOLUME 10.4 fl (9.6-12.3); MONO # 0.8 10*3/uL (0.1-1.0); MONO % 11.5 % (3.0-9.0); NEUT # 3.2 10*3/uL (2.3-7.9); NEUT % 43.9 % (47.0-73.0); PLATELET COUNT AUTOMATED 242 10*3/uL (130-400); RED CELL DISTRI WIDTH 14.9 % (0-14.5); WHITE BLOOD COUNT 7.2 10*3/uL (4.8-10.8)
[2017-11-16 18:50] LABS: ACT PARTIAL THROMBO TIME 36.1 SECONDS (20.8-31.5); INTERNATIONAL NORM RATIO 1.2 (2.0-3.5)
[2017-11-16 19:07] LABS: ALBUMIN 2.9 gm/dl (3.1-4.5); ALKALINE PHOSPHATASE 118 U/L (45-117); CHLORIDE 100 mmol/L (98-107); CREATININE 3.11 mg/dL (0.70-1.30); LIPASE 193 U/L (73-393); POTASSIUM 4.3 mmol/L (3.5-5.1); SGOT/AST 10 IU/L (3-35); SGPT/ALT 24 U/L (12-78); SODIUM 134 mmol/L (136-145)
[2017-11-16 19:08] LABS: BUN 31 mg/dl (7-24); TROPONIN I < 0.015 ng/ml (<0.045)
[2017-11-16 20:14] VITALS: BP 108/54
[2017-11-16 20:53] VITALS: BP 105/51
[2017-11-16 21:30] VITALS: BP 105/51
[2017-11-16 22:01] LABS: CPK 52 U/L (39-308)
[2017-11-16 22:02] LABS: TROPONIN I < 0.015 ng/ml (<0.045)
[2017-11-17] VITALS: BP 113/65
[2017-11-17 07:00] LABS: BASO % 0.5 % (0.0-1.0); EOS # 0.2 10*3/uL (0.0-0.4); EOS % 5.6 % (1.0-4.0); HEMATOCRIT 28.6 % (42.0-52.0); HEMOGLOBIN 9.4 g/dl (14.0-18.0); LYMPH # 1.8 10*3/uL (1.3-4.4); LYMPH % 43.6 % (27.0-41.0); MEAN CELL VOLUME 90.5 fl (80.0-94.0); MEAN CORPUSCULAR HGB 29.7 pg (27.0-31.0); MEAN CORPUSCULAR HGB CONC 32.9 g/dl (33.0-37.0); MEAN PLATELET VOLUME 10.6 fl (9.6-12.3); MONO # 0.5 10*3/uL (0.1-1.0); MONO % 12.7 % (3.0-9.0); NEUT # 1.5 10*3/uL (2.3-7.9); NEUT % 35.9 % (47.0-73.0); PLATELET COUNT AUTOMATED 190 10*3/uL (130-400); RED BLOOD COUNT 3.16 10*6/uL (4.50-5.90); RED CELL DISTRI WIDTH 14.7 % (0-14.5); WHITE BLOOD COUNT 4.1 10*3/uL (4.8-10.8)
[2017-11-17 07:21] LABS: ALBUMIN 2.7 gm/dl (3.1-4.5); CREATININE 2.44 mg/dL (0.70-1.30); PHOSPHOROUS 4.2 mg/dL (2.5-4.9); POTASSIUM 4.2 mmol/L (3.5-5.1); TOTAL PROTEIN 6.1 gm/dL (6.4-8.2)
[2017-11-17 07:30] LABS: THYROID STIM HORMONE (HS) 4.19 uIU/ml (0.358-4.75); VALPROIC ACID (DEPAKENE) 12.3 ug/ml (50-100)
[2017-11-17 08:00] VITALS: BP 123/71
[2017-11-17 12:00] VITALS: BP 107/59
[2017-11-17 14:03] LABS: BILIRUBIN NEGATIVE (NEGATIVE); BLOOD NEGATIVE (NEGATIVE); CLARITY CLEAR (CLEAR); COLOR YELLOW (YELLOW); GLUCOSE NEGATIVE (NEGATIVE); KETONE NEGATIVE (NEGATIVE); LEUKO ESTERASE NEGATIVE (NEGATIVE); NITRITE NEGATIVE (NEGATIVE); PH 5.5 (5.0-9.0); UROBILINOGEN 0.2 E.U./dl (0.2-1.0)
[2017-11-17 14:10] LABS: BACTERIA TRACE
[2017-11-17 16:00] VITALS: BP 124/64
[2017-11-17 20:00] VITALS: BP 126/75
[2017-11-18] VITALS: BP 149/81
[2017-11-18 07:16] LABS: BASO % 0.6 % (0.0-1.0); EOS # 0.2 10*3/uL (0.0-0.4); EOS % 6.3 % (1.0-4.0); HEMATOCRIT 30.9 % (42.0-52.0); HEMOGLOBIN 9.9 g/dl (14.0-18.0); LYMPH % 30.9 % (27.0-41.0); MEAN CELL VOLUME 90.4 fl (80.0-94.0); MEAN CORPUSCULAR HGB 28.9 pg (27.0-31.0); MEAN PLATELET VOLUME 10.3 fl (9.6-12.3); MONO # 0.4 10*3/uL (0.1-1.0); NEUT # 1.6 10*3/uL (2.3-7.9); NEUT % 48.7 % (47.0-73.0); PLATELET COUNT AUTOMATED 179 10*3/uL (130-400); RED BLOOD COUNT 3.42 10*6/uL (4.50-5.90); RED CELL DISTRI WIDTH 14.9 % (0-14.5); WHITE BLOOD COUNT 3.3 10*3/uL (4.8-10.8)
[2017-11-18 07:34] LABS: BUN 26 mg/dl (7-24); CHLORIDE 109 mmol/L (98-107); CREATININE 1.39 mg/dL (0.70-1.30); PHOSPHOROUS 2.5 mg/dL (2.5-4.9); POTASSIUM 4.5 mmol/L (3.5-5.1); SODIUM 140 mmol/L (136-145)
[2017-11-18 08:00] VITALS: BP 148/72
[2017-11-18] MEDS ORDERED: LOPRESSOR25 MG PO (11:25)
[2017-11-18 12:00] VITALS: BP 151/70
== END 2017-11-18 13:31 | disposition home or self-care (01) | DRG 682 ==
LOC: ED 17:40 → 5E 20:20 → EDHOLD 20:20 → 5E 20:56
PROVIDERS: Emergency Medicine; Family Medicine; Hospitalist; Student in an Organized Health Care Education/Training Program
DX: N17.0 Acute kidney failure with tubular necrosis (principal); E43 Unspecified severe protein-calorie malnutrition; E87.2 Acidosis; E87.1 Hypo-osmolality and hyponatremia; E11.40 Type 2 diabetes mellitus with diabetic neuropathy, unspecified; E11.65 Type 2 diabetes mellitus with hyperglycemia; I47.1 Supraventricular tachycardia; I50.32 Chronic diastolic (congestive) heart failure; I13.0 Hypertensive heart and chronic kidney disease with heart failure and stage 1 through stage 4 chronic kidney disease, or unspecified chronic kidney disease; Z79.899 Other long term (current) drug therapy; I69.30 Unspecified sequelae of cerebral infarction; N18.3 Chronic kidney disease, stage 3 (moderate); K21.9 Gastro-esophageal reflux disease without esophagitis; F41.1 Generalized anxiety disorder; F14.10 Cocaine abuse, uncomplicated; N40.0 Benign prostatic hyperplasia without lower urinary tract symptoms; M62.838 Other muscle spasm; R55 Syncope and collapse; I25.10 Atherosclerotic heart disease of native coronary artery without angina pectoris; J44.9 Chronic obstructive pulmonary disease, unspecified; F32.9 Major depressive disorder, single episode, unspecified; M10.9 Gout, unspecified; E78.5 Hyperlipidemia, unspecified; E03.9 Hypothyroidism, unspecified; E66.9 Obesity, unspecified; G40.909 Epilepsy, unspecified, not intractable, without status epilepticus; W18.39XA Other fall on same level, initial encounter; D64.9 Anemia, unspecified; G89.4 Chronic pain syndrome; R26.2 Difficulty in walking, not elsewhere classified; Z96.649 Presence of unspecified artificial hip joint; Z82.49 Family history of ischemic heart disease and other diseases of the circulatory system; Z68.35 Body mass index [BMI] 35.0-35.9, adult; Y93.89 Activity, other specified; Y92.89 Other specified places as the place of occurrence of the external cause; Y99.8 Other external cause status; Z79.4 Long term (current) use of insulin; Z95.5 Presence of coronary angioplasty implant and graft; I25.2 Old myocardial infarction; Z90.49 Acquired absence of other specified parts of digestive tract; Z89.412 Acquired absence of left great toe; Z87.891 Personal history of nicotine dependence; Z88.1 Allergy status to other antibiotic agents; Z88.0 Allergy status to penicillin

== ENCOUNTER → 2017-11-27 | Outpatient (CLI) | payer OTHER, MEDICAID | END | disposition home or self-care (01) | LOC: RAD 10:22 | DX: M47.897 Other spondylosis, lumbosacral region (principal); Z96.641 Presence of right artificial hip joint; Z91.81 History of falling ==

== ENCOUNTER 2017-11-28 12:39 | Emergency (ER) | payer OTHER, MEDICAID ==
[~2017-11-28] VITALS: Ht 182.8 cm; Wt 106.6 kg
[2017-11-28 13:43] VITALS: BP 112/62
== END 2017-11-28 13:44 | disposition home or self-care (01) ==
LOC: ED 12:39
DX: R42 Dizziness and giddiness (principal); I25.10 Atherosclerotic heart disease of native coronary artery without angina pectoris; I13.0 Hypertensive heart and chronic kidney disease with heart failure and stage 1 through stage 4 chronic kidney disease, or unspecified chronic kidney disease; E11.22 Type 2 diabetes mellitus with diabetic chronic kidney disease; N18.3 Chronic kidney disease, stage 3 (moderate); I50.9 Heart failure, unspecified; E11.65 Type 2 diabetes mellitus with hyperglycemia; E11.40 Type 2 diabetes mellitus with diabetic neuropathy, unspecified; K21.9 Gastro-esophageal reflux disease without esophagitis; E78.5 Hyperlipidemia, unspecified; E03.9 Hypothyroidism, unspecified; G40.909 Epilepsy, unspecified, not intractable, without status epilepticus; I25.2 Old myocardial infarction; E66.9 Obesity, unspecified; Z95.5 Presence of coronary angioplasty implant and graft; Z96.641 Presence of right artificial hip joint; Z98.890 Other specified postprocedural states; Z79.899 Other long term (current) drug therapy; Z86.73 Personal history of transient ischemic attack (TIA), and cerebral infarction without residual deficits; Z88.1 Allergy status to other antibiotic agents; Z88.3 Allergy status to other anti-infective agents; Z79.4 Long term (current) use of insulin; W19.XXXA Unspecified fall, initial encounter; Y93.89 Activity, other specified; Y92.098 Other place in other non-institutional residence as the place of occurrence of the external cause; Y99.9 Unspecified external cause status

== ENCOUNTER → 2017-12-01 | Outpatient (CLI) | payer OTHER, MEDICAID ==
[~2017-12-01] MED LIST changes: +FLECAINIDE ACE100 M1 PO; +MUCINEX1200 M1 PO
== END | disposition home or self-care (01) ==
LOC: RESCLI
DX: K21.9 Gastro-esophageal reflux disease without esophagitis (principal); G40.909 Epilepsy, unspecified, not intractable, without status epilepticus; E11.65 Type 2 diabetes mellitus with hyperglycemia; G89.4 Chronic pain syndrome; R42 Dizziness and giddiness; E83.42 Hypomagnesemia; M10.9 Gout, unspecified; L20.9 Atopic dermatitis, unspecified; I47.1 Supraventricular tachycardia; I25.118 Atherosclerotic heart disease of native coronary artery with other forms of angina pectoris; I12.9 Hypertensive chronic kidney disease with stage 1 through stage 4 chronic kidney disease, or unspecified chronic kidney disease; N18.3 Chronic kidney disease, stage 3 (moderate); Z88.1 Allergy status to other antibiotic agents; E11.22 Type 2 diabetes mellitus with diabetic chronic kidney disease

== ENCOUNTER 2017-12-05 23:56 | Inpatient (IN) | payer OTHER, MEDICAID ==
[~2017-12-05] VITALS: Ht 182.8 cm; Wt 106.1 kg
--- NOTE | ~2017-12-05 | EKG ---
[place], [place] ELECTROCARDIOGRAM REPORT NAME: DEBORAH SANTACRUZ UNIT #: [id number] ROOM: 416 DOCTOR: PAM ALVARADO MD BIRTHDATE: [birth year] DOS: 12/06/2017 TIME: 0015 hours. Normal sinus rhythm at 89 beats per minute. An old anterior wall myocardial infarction. Low voltage in precordial leads. An abnormal ECG. No significant change from ECG many done earlier this month. PAM ALVARADO MD CM:EKGRPT:ELECTROCARDIOGRAM REPORT 1703 2249 PAM ALVARADO MD
[~2017-12-05 23:56] MED LIST changes: -FLECAINIDE ACE100 M1 PO; -MUCINEX1200 M1 PO
[2017-12-06] VITALS (13 sets, daily range): BP systolic 101–182; BP diastolic 67–94
[2017-12-06 00:34] LABS: BASO % 0.5 % (0.0-1.0); EOS # 0.3 10*3/uL (0.0-0.4); EOS % 5.4 % (1.0-4.0); HEMATOCRIT 31.5 % (42.0-52.0); HEMOGLOBIN 10.2 g/dl (14.0-18.0); LYMPH # 2.2 10*3/uL (1.3-4.4); MEAN CELL VOLUME 90.5 fl (80.0-94.0); MEAN CORPUSCULAR HGB 29.3 pg (27.0-31.0); MEAN CORPUSCULAR HGB CONC 32.4 g/dl (33.0-37.0); MEAN PLATELET VOLUME 11.1 fl (9.6-12.3); MONO # 0.4 10*3/uL (0.1-1.0); MONO % 7.5 % (3.0-9.0); NEUT # 2.8 10*3/uL (2.3-7.9); NEUT % 47.9 % (47.0-73.0); PLATELET COUNT AUTOMATED 149 10*3/uL (130-400); RED BLOOD COUNT 3.48 10*6/uL (4.50-5.90); WHITE BLOOD COUNT 5.9 10*3/uL (4.8-10.8)
[2017-12-06 00:43] LABS: INTERNATIONAL NORM RATIO 1.1 (2.0-3.5)
[2017-12-06 00:54] LABS: ALBUMIN 3.2 gm/dl (3.1-4.5); ALKALINE PHOSPHATASE 93 U/L (45-117); BUN 35 mg/dl (7-24); CHLORIDE 108 mmol/L (98-107); CREATININE 2.07 mg/dL (0.70-1.30); LIPASE 159 U/L (73-393); SGOT/AST 10 IU/L (3-35); SGPT/ALT 17 U/L (12-78); SODIUM 142 mmol/L (136-145); TOTAL PROTEIN 6.1 gm/dL (6.4-8.2)
[2017-12-06 00:56] LABS: TROPONIN I < 0.015 ng/ml (<0.045)
[2017-12-06 01:18] LABS: BILIRUBIN NEGATIVE (NEGATIVE); BLOOD NEGATIVE (NEGATIVE); CLARITY CLEAR (CLEAR); COLOR YELLOW (YELLOW); GLUCOSE NEGATIVE (NEGATIVE); KETONE TRACE (NEGATIVE); LEUKO ESTERASE NEGATIVE (NEGATIVE); NITRITE NEGATIVE (NEGATIVE); PH 5.5 (5.0-9.0); SPECIFIC GRAVITY 1.015 (1.005-1.030); UROBILINOGEN 0.2 E.U./dl (0.2-1.0)
[2017-12-06 01:23] LABS: URINE AMPHETAMINES < 1000 (1000ng/ml); URINE BARBITURATES < 200 (200ng/ml); URINE BENZODIAZEPINES < 200 (200ng/ml); URINE CANNABINOIDS (THC) < 50 (50ng/ml); URINE COCAINE < 300 (300ng/ml); URINE METHADONE < 300 (300ng/ml); URINE OPIATES > 300 (300ng/ml)
[2017-12-06 01:31] LABS: URINE PHENCYCLIDINE < 25 (25ng/ml)
[2017-12-06 05:59] LABS: BASO % 0.7 % (0.0-1.0); EOS # 0.3 10*3/uL (0.0-0.4); HEMATOCRIT 30.8 % (42.0-52.0); HEMOGLOBIN 9.8 g/dl (14.0-18.0); LYMPH # 1.8 10*3/uL (1.3-4.4); LYMPH % 39.3 % (27.0-41.0); MEAN CELL VOLUME 91.4 fl (80.0-94.0); MEAN CORPUSCULAR HGB 29.1 pg (27.0-31.0); MEAN CORPUSCULAR HGB CONC 31.8 g/dl (33.0-37.0); MEAN PLATELET VOLUME 11.3 fl (9.6-12.3); MONO # 0.4 10*3/uL (0.1-1.0); NEUT % 44.7 % (47.0-73.0); PLATELET COUNT AUTOMATED 148 10*3/uL (130-400); RED BLOOD COUNT 3.37 10*6/uL (4.50-5.90); WHITE BLOOD COUNT 4.5 10*3/uL (4.8-10.8)
[2017-12-06 06:03] LABS: ALBUMIN 3.2 gm/dl (3.1-4.5); BUN 32 mg/dl (7-24); CHLORIDE 108 mmol/L (98-107); CREATININE 1.73 mg/dL (0.70-1.30); PHOSPHOROUS 3.6 mg/dL (2.5-4.9); POTASSIUM 4.9 mmol/L (3.5-5.1); SGOT/AST 10 IU/L (3-35); SGPT/ALT 19 U/L (12-78); SODIUM 141 mmol/L (136-145); TOTAL PROTEIN 6.2 gm/dL (6.4-8.2)
[2017-12-06 06:06] LABS: ALKALINE PHOSPHATASE 97 U/L (45-117)
[2017-12-06 06:12] LABS: TROPONIN I < 0.015 ng/ml (<0.045)
== END 2017-12-06 18:30 | disposition home or self-care (01) | DRG 683 ==
LOC: ED 23:56 → EDHOLD 12-06 03:25 → 4E 12-06 03:38
PROVIDERS: Emergency Medicine Emergency Medical Services; Hospitalist
DX: N17.9 Acute kidney failure, unspecified (principal); I50.32 Chronic diastolic (congestive) heart failure; E11.22 Type 2 diabetes mellitus with diabetic chronic kidney disease; E11.40 Type 2 diabetes mellitus with diabetic neuropathy, unspecified; I13.0 Hypertensive heart and chronic kidney disease with heart failure and stage 1 through stage 4 chronic kidney disease, or unspecified chronic kidney disease; N40.0 Benign prostatic hyperplasia without lower urinary tract symptoms; J44.9 Chronic obstructive pulmonary disease, unspecified; N18.3 Chronic kidney disease, stage 3 (moderate); I25.10 Atherosclerotic heart disease of native coronary artery without angina pectoris; K21.9 Gastro-esophageal reflux disease without esophagitis; G89.29 Other chronic pain; F32.9 Major depressive disorder, single episode, unspecified; F41.1 Generalized anxiety disorder; M10.9 Gout, unspecified; E83.42 Hypomagnesemia; E11.65 Type 2 diabetes mellitus with hyperglycemia; E78.5 Hyperlipidemia, unspecified; E66.9 Obesity, unspecified; G40.909 Epilepsy, unspecified, not intractable, without status epilepticus; Z96.641 Presence of right artificial hip joint; Z86.73 Personal history of transient ischemic attack (TIA), and cerebral infarction without residual deficits; Z79.4 Long term (current) use of insulin; Z98.61 Coronary angioplasty status; Z90.49 Acquired absence of other specified parts of digestive tract; Z89.412 Acquired absence of left great toe; Z89.432 Acquired absence of left foot; Z87.891 Personal history of nicotine dependence; Z80.0 Family history of malignant neoplasm of digestive organs; Z83.3 Family history of diabetes mellitus; Z88.1 Allergy status to other antibiotic agents; Z79.899 Other long term (current) drug therapy; I25.2 Old myocardial infarction; Z68.31 Body mass index [BMI] 31.0-31.9, adult

== ENCOUNTER 2017-12-11 23:40 | Inpatient (IN) | payer OTHER, MEDICAID ==
[~2017-12-11] VITALS: Ht 182.9 cm; Wt 104.8 kg
--- NOTE | ~2017-12-11 | EKG ---
[place], [place] ELECTROCARDIOGRAM REPORT NAME: DEBORAH SANTACRUZ UNIT #: [id number] ROOM: 405 DOCTOR: PAM ALVARADO MD BIRTHDATE: [birth year] DOS: 12/12/2017 TIME: 2346 hours. FINDINGS: 1. Sinus tachycardia at 119 beats per minute. 2. Consider an old inferior wall AL. 3. Also consider an old anterior wall myocardial infarction. 4. No previous tracing is available for comparison. PAM ALVARADO MD CM:EKGRPT:ELECTROCARDIOGRAM REPORT 1356 1709 PAM ALVARADO MD
--- NOTE | ~2017-12-11 | CON ---
[place], [place] REPORT OF CONSULTATION NAME: DEBORAH SANTACRUZ [facility] #: [id number] UNIT #: [id number] ROOM: 405 DOCTOR: PAM ALVARADO MD BIRTHDATE: [birth year] DOS: 12/12/2017 HISTORY OF PRESENT ILLNESS: This is a 67-year-old -[place] man whom I have known for many years now. He has coronary artery disease and has had inferior wall myocardial infarction. He had a couple of stents deployed in the right coronary artery, a few years ago. I believe I performed a diagnostic heart catheterization with selective coronary angiogram earlier last year and the stents were patent. LV systolic function was also normal. He also has SVT, which was diagnosed just a couple of years ago and this has recurred many times and has been admitted for this. He has never had atrial fibrillation, does have diabetes mellitus type 2, COPD, GERD, gastric ulcers, hypothyroidism and BPH. He also had been a cocaine addict and tells me that he has not used any for quite a long time now. He came to the hospital yesterday with palpitation, dizziness, loss of lightheadedness and also had some epigastric discomfort, pain and then had burning sensation in the chest. This feeling lasted for many, many hours and he has had such symptoms previously. He was not sweating, did not have any nausea, vomiting, and did not pass out. HOME MEDICATIONS: Include Combivent, metoprolol 25 mg b.i.d., gabapentin 300 b.i.d., mag oxide 400 b.i.d., ferrous sulfate 325 mg daily, Cymbalta 60 daily and Depakote ER 250 mg at night, atorvastatin 40 daily, alprazolam 0.5 mg at bedtime and Combivent inhaler. He also takes Protonix, Carafate, and vitamin D, and also Levemir insulin. PHYSICAL EXAMINATION: GENERAL: The patient who is morbidly obese, pleasant, alert. His speech is slurred, but this has been like this for years. He is not in any distress. There is no finger clubbing. There is no cyanosis. VITAL SIGNS: Pulse is irregular at 84 beats per minute, blood pressure 146/81. NECK: JVP difficult to assess. There is no carotid bruit. HEART: Auscultation revealed regular heart rate and no murmurs or rub. EXTREMITIES: He has good pedal pulses and no edema in lower extremities. RESPIRATORY: He is not tachypneic. Auscultation reveals reduced breath sounds with a few adventitious sounds in the lower zones. DIAGNOSTIC STUDIES: An ECG on admission demonstrated a narrow complex regular tachycardia at 171 beats per minute and old inferior wall NC. LABORATORY DATA: ECG shows sinus tachycardia at 119 beats per minute. Troponin I level have been normal. Hemoglobin 11.7 g/dL, creatinine 1.97, BUN 29, glucose 335 mg/dL, potassium 3.9, sodium 135. IMPRESSION: 1. This patient has had recurrent narrow complex supraventricular tachycardia. Metoprolol does not seem to be helping. 2. Chest pain. He has had numerous admissions for this over the last few years and seldom has he had any acute coronary issue. No further workup for this is [place], [place] REPORT OF CONSULTATION NAME: DEBORAH SANTACRUZ UNIT #: [id number] ROOM: 405 DOCTOR: CHRISTIANO HOOVER,PAM BIRTHDATE: [birth year] necessary. RECOMMENDATIONS: I think flecainide 100 mg q.12 hours, should be tried to see if SVT could be kept at bay. I discussed this plan with the resident looking after this patient. PAM ALVARADO MD CM:CONSTR:REPORT OF CONSULTATION 1236 12/12/172121 interface
--- NOTE | ~2017-12-11 | EKG ---
[place], [place] ELECTROCARDIOGRAM REPORT NAME: DEBORAH SANTACRUZ UNIT #: [id number] ROOM: 405 DOCTOR: PAM ALVARADO MD BIRTHDATE: [birth year] DOS: 12/12/2017 TIME: 0433 hours. FINDINGS: 1. Supraventricular tachycardia at 171 beats per minute, it is regular. 2. A single PVC is present. 3. Low voltage in precordial leads. 4. An old inferior wall PR. 5. No previous tracing is available for comparison. PAM ALVARADO MD CM:EKGRPT:ELECTROCARDIOGRAM REPORT 1356 1706 PAM ALVARADO MD
[2017-12-11 23:43] VITALS: BP 143/86
[2017-12-12] VITALS (16 sets, daily range): BP systolic 108–158; BP diastolic 62–101
[2017-12-12 00:05] LABS: BASO % 0.5 % (0.0-1.0); EOS # 0.2 10*3/uL (0.0-0.4); EOS % 2.2 % (1.0-4.0); HEMATOCRIT 34.7 % (42.0-52.0); HEMOGLOBIN 11.5 g/dl (14.0-18.0); LYMPH # 2.9 10*3/uL (1.3-4.4); LYMPH % 38.4 % (27.0-41.0); MEAN CELL VOLUME 88.3 fl (80.0-94.0); MEAN CORPUSCULAR HGB 29.3 pg (27.0-31.0); MEAN CORPUSCULAR HGB CONC 33.1 g/dl (33.0-37.0); MONO # 0.6 10*3/uL (0.1-1.0); MONO % 8.2 % (3.0-9.0); NEUT # 3.8 10*3/uL (2.3-7.9); NEUT % 49.5 % (47.0-73.0); PLATELET COUNT AUTOMATED 156 10*3/uL (130-400); RED BLOOD COUNT 3.93 10*6/uL (4.50-5.90); RED CELL DISTRI WIDTH 14.3 % (0-14.5); WHITE BLOOD COUNT 7.6 10*3/uL (4.8-10.8)
[2017-12-12 00:17] LABS: INTERNATIONAL NORM RATIO 1.2 (2.0-3.5)
[2017-12-12 00:25] LABS: ALBUMIN 3.3 gm/dl (3.1-4.5); CREATININE 1.97 mg/dL (0.70-1.30); POTASSIUM 3.9 mmol/L (3.5-5.1); TOTAL PROTEIN 6.7 gm/dL (6.4-8.2)
[2017-12-12 01:28] LABS: URINE AMPHETAMINES < 1000 (1000ng/ml); URINE BARBITURATES < 200 (200ng/ml); URINE BENZODIAZEPINES < 200 (200ng/ml); URINE CANNABINOIDS (THC) < 50 (50ng/ml); URINE COCAINE < 300 (300ng/ml); URINE METHADONE < 300 (300ng/ml); URINE OPIATES < 300 (300ng/ml)
[2017-12-12 01:30] LABS: URINE PHENCYCLIDINE < 25 (25ng/ml)
[2017-12-12 06:41] LABS: BASO # 0.1 10*3/uL (0.0-0.1); BASO % 0.8 % (0.0-1.0); EOS # 0.2 10*3/uL (0.0-0.4); EOS % 4.1 % (1.0-4.0); HEMATOCRIT 34.6 % (42.0-52.0); HEMOGLOBIN 11.7 g/dl (14.0-18.0); LYMPH # 1.7 10*3/uL (1.3-4.4); LYMPH % 29.5 % (27.0-41.0); MEAN CELL VOLUME 88.7 fl (80.0-94.0); MEAN CORPUSCULAR HGB CONC 33.8 g/dl (33.0-37.0); MEAN PLATELET VOLUME 11.3 fl (9.6-12.3); MONO # 0.5 10*3/uL (0.1-1.0); MONO % 8.8 % (3.0-9.0); NEUT # 3.3 10*3/uL (2.3-7.9); PLATELET COUNT AUTOMATED 149 10*3/uL (130-400); RED CELL DISTRI WIDTH 14.4 % (0-14.5); WHITE BLOOD COUNT 5.9 10*3/uL (4.8-10.8)
[2017-12-12 07:10] LABS: CREATININE 1.72 mg/dL (0.70-1.30); PHOSPHOROUS 3.4 mg/dL (2.5-4.9); POTASSIUM 3.9 mmol/L (3.5-5.1)
[2017-12-12 07:18] LABS: FREE T4 0.73 ng/dl (0.76-1.46); THYROID STIM HORMONE (HS) 5.38 uIU/ml (0.358-4.75)
[2017-12-13] VITALS: BP 153/79
[2017-12-13 07:15] LABS: CREATININE 1.86 mg/dL (0.70-1.30)
[2017-12-13 07:16] LABS: POTASSIUM 4.9 mmol/L (3.5-5.1)
[2017-12-13 08:00] VITALS: BP 158/90
[2017-12-13] MEDS ORDERED: MUCINEX1200 M1 PO (09:52)
[2017-12-13] MEDS ORDERED: LEVOFLOXACIN500 MG PO (09:52)
[2017-12-13] MEDS ORDERED: PREDNISONE10 MG PO (09:52)
[2017-12-13] MEDS ORDERED: FLECAINIDE ACE100 M1 PO (09:52)
== END 2017-12-13 10:51 | disposition home or self-care (01) | DRG 308 ==
LOC: ED 23:40 → EDHOLD 12-12 05:00 → 4E 12-12 05:06
PROVIDERS: Emergency Medicine; Internal Medicine; Student in an Organized Health Care Education/Training Program
DX: I48.91 Unspecified atrial fibrillation (principal); N17.0 Acute kidney failure with tubular necrosis; E87.2 Acidosis; E44.0 Moderate protein-calorie malnutrition; I50.32 Chronic diastolic (congestive) heart failure; J44.1 Chronic obstructive pulmonary disease with (acute) exacerbation; E87.1 Hypo-osmolality and hyponatremia; I13.0 Hypertensive heart and chronic kidney disease with heart failure and stage 1 through stage 4 chronic kidney disease, or unspecified chronic kidney disease; I47.1 Supraventricular tachycardia; E11.22 Type 2 diabetes mellitus with diabetic chronic kidney disease; E11.40 Type 2 diabetes mellitus with diabetic neuropathy, unspecified; E11.65 Type 2 diabetes mellitus with hyperglycemia; E83.42 Hypomagnesemia; F10.929 Alcohol use, unspecified with intoxication, unspecified; K21.9 Gastro-esophageal reflux disease without esophagitis; G40.909 Epilepsy, unspecified, not intractable, without status epilepticus; F41.1 Generalized anxiety disorder; F32.9 Major depressive disorder, single episode, unspecified; E03.9 Hypothyroidism, unspecified; E78.5 Hyperlipidemia, unspecified; D64.9 Anemia, unspecified; N40.0 Benign prostatic hyperplasia without lower urinary tract symptoms; I25.10 Atherosclerotic heart disease of native coronary artery without angina pectoris; G89.29 Other chronic pain; N18.3 Chronic kidney disease, stage 3 (moderate); Z96.641 Presence of right artificial hip joint; M10.9 Gout, unspecified; E66.9 Obesity, unspecified; Z79.4 Long term (current) use of insulin; Z86.73 Personal history of transient ischemic attack (TIA), and cerebral infarction without residual deficits; I25.2 Old myocardial infarction; Z95.5 Presence of coronary angioplasty implant and graft; Z90.49 Acquired absence of other specified parts of digestive tract; Z89.422 Acquired absence of other left toe(s); Z89.412 Acquired absence of left great toe; Z87.891 Personal history of nicotine dependence; Z80.0 Family history of malignant neoplasm of digestive organs; Z83.3 Family history of diabetes mellitus; Z82.49 Family history of ischemic heart disease and other diseases of the circulatory system; Z88.1 Allergy status to other antibiotic agents; Z88.8 Allergy status to other drugs, medicaments and biological substances; Z79.899 Other long term (current) drug therapy; Z68.31 Body mass index [BMI] 31.0-31.9, adult

== ENCOUNTER → 2017-12-17 | Outpatient (CLI) | payer OTHER, MEDICAID ==
[~2017-12-17] MED LIST changes: +FLECAINIDE ACE100 M1 PO; +MUCINEX1200 M1 PO
== END | disposition home or self-care (01) ==
LOC: RAD 11:55
DX: M25.551 Pain in right hip (principal); Z96.641 Presence of right artificial hip joint

== ENCOUNTER 2017-12-27 14:08 | Emergency (ER) | payer OTHER, MEDICAID ==
[~2017-12-27] VITALS: Ht 182.8 cm; Wt 106.1 kg
[2017-12-27 14:19] VITALS: BP 150/88
[2017-12-27 14:45] LABS: BASO % 0.2 % (0.0-1.0); LYMPH # 0.8 10*3/uL (1.3-4.4); LYMPH % 6.1 % (27.0-41.0); MEAN CELL VOLUME 91.1 fl (80.0-94.0); MEAN CORPUSCULAR HGB 30.4 pg (27.0-31.0); MEAN CORPUSCULAR HGB CONC 33.3 g/dl (33.0-37.0); MEAN PLATELET VOLUME 10.7 fl (9.6-12.3); MONO # 0.4 10*3/uL (0.1-1.0); NEUT # 11.6 10*3/uL (2.3-7.9); NEUT % 89.2 % (47.0-73.0); PLATELET COUNT AUTOMATED 233 10*3/uL (130-400); RED BLOOD COUNT 4.28 10*6/uL (4.50-5.90)
[2017-12-27 15:05] LABS: CREATININE 1.8 mg/dL (0.70-1.30); POTASSIUM 4.8 mmol/L (3.5-5.1)
== END 2017-12-27 15:18 | disposition home or self-care (01) ==
LOC: ED 14:08
PROVIDERS: Emergency Medicine
DX: I44.0 Atrioventricular block, first degree (principal); J44.9 Chronic obstructive pulmonary disease, unspecified; K21.9 Gastro-esophageal reflux disease without esophagitis; E03.9 Hypothyroidism, unspecified; I25.10 Atherosclerotic heart disease of native coronary artery without angina pectoris; I13.0 Hypertensive heart and chronic kidney disease with heart failure and stage 1 through stage 4 chronic kidney disease, or unspecified chronic kidney disease; E11.22 Type 2 diabetes mellitus with diabetic chronic kidney disease; N18.3 Chronic kidney disease, stage 3 (moderate); I50.9 Heart failure, unspecified; G40.909 Epilepsy, unspecified, not intractable, without status epilepticus; E78.5 Hyperlipidemia, unspecified; E11.40 Type 2 diabetes mellitus with diabetic neuropathy, unspecified; Z88.0 Allergy status to penicillin; Z88.1 Allergy status to other antibiotic agents; Z79.899 Other long term (current) drug therapy

== ENCOUNTER 2017-12-30 10:06 | Emergency (ER) | payer OTHER, MEDICAID ==
[~2017-12-30] VITALS: Ht 182.8 cm; Wt 106.1 kg
[2017-12-30 10:37] VITALS: BP 130/88
[2017-12-30 12:26] LABS: BASO % 0.1 % (0.0-1.0); EOS # 0.1 10*3/uL (0.0-0.4); EOS % 1.4 % (1.0-4.0); HEMATOCRIT 38.7 % (42.0-52.0); HEMOGLOBIN 12.5 g/dl (14.0-18.0); LYMPH # 1.8 10*3/uL (1.3-4.4); LYMPH % 19.3 % (27.0-41.0); MEAN CELL VOLUME 91.9 fl (80.0-94.0); MEAN CORPUSCULAR HGB 29.7 pg (27.0-31.0); MEAN CORPUSCULAR HGB CONC 32.3 g/dl (33.0-37.0); MEAN PLATELET VOLUME 10.4 fl (9.6-12.3); MONO # 0.8 10*3/uL (0.1-1.0); MONO % 8.4 % (3.0-9.0); NEUT # 6.4 10*3/uL (2.3-7.9); NEUT % 69.4 % (47.0-73.0); PLATELET COUNT AUTOMATED 164 10*3/uL (130-400); RED BLOOD COUNT 4.21 10*6/uL (4.50-5.90); RED CELL DISTRI WIDTH 15.2 % (0-14.5); WHITE BLOOD COUNT 9.2 10*3/uL (4.8-10.8)
[2017-12-30 12:35] LABS: ACT PARTIAL THROMBO TIME 21.4 SECONDS (20.8-31.5); INTERNATIONAL NORM RATIO 1.1 (2.0-3.5)
[2017-12-30 12:42] LABS: CREATININE 1.6 mg/dL (0.70-1.30); POTASSIUM 4.8 mmol/L (3.5-5.1)
[2017-12-30 12:43] LABS: TROPONIN I 0.015 ng/ml (<0.045)
== END 2017-12-30 13:14 | disposition home or self-care (01) ==
LOC: ED 10:06
PROVIDERS: Emergency Medicine
DX: S79.912A Unspecified injury of left hip, initial encounter (principal); R10.32 Left lower quadrant pain; F14.10 Cocaine abuse, uncomplicated; I13.0 Hypertensive heart and chronic kidney disease with heart failure and stage 1 through stage 4 chronic kidney disease, or unspecified chronic kidney disease; E11.22 Type 2 diabetes mellitus with diabetic chronic kidney disease; N18.3 Chronic kidney disease, stage 3 (moderate); I50.9 Heart failure, unspecified; G89.29 Other chronic pain; J44.9 Chronic obstructive pulmonary disease, unspecified; K21.9 Gastro-esophageal reflux disease without esophagitis; E66.9 Obesity, unspecified; G40.909 Epilepsy, unspecified, not intractable, without status epilepticus; I25.2 Old myocardial infarction; E11.65 Type 2 diabetes mellitus with hyperglycemia; I25.10 Atherosclerotic heart disease of native coronary artery without angina pectoris; E03.9 Hypothyroidism, unspecified; E78.5 Hyperlipidemia, unspecified; M10.9 Gout, unspecified; Z79.899 Other long term (current) drug therapy; Z79.4 Long term (current) use of insulin; Z87.891 Personal history of nicotine dependence; Z86.73 Personal history of transient ischemic attack (TIA), and cerebral infarction without residual deficits; Z98.890 Other specified postprocedural states; Z95.5 Presence of coronary angioplasty implant and graft; Z88.1 Allergy status to other antibiotic agents; Z88.8 Allergy status to other drugs, medicaments and biological substances; Z88.3 Allergy status to other anti-infective agents; W06.XXXA Fall from bed, initial encounter; Y93.89 Activity, other specified; Y92.69 Other specified industrial and construction area as the place of occurrence of the external cause; Y99.9 Unspecified external cause status

== ENCOUNTER 2018-01-10 13:20 | Inpatient (IN) | payer OTHER, MEDICAID ==
[~2018-01-10] VITALS: Ht 182.8 cm; Wt 101.6 kg
[2018-01-10] VITALS (10 sets, daily range): BP systolic 104–145; BP diastolic 57–86
--- NOTE | ~2018-01-10 | CON ---
[place], [place] REPORT OF CONSULTATION [id number] UNIT #: [id number] ROOM: 517 DOCTOR: PAM ALVARADO MD BIRTHDATE: [birth year] DOS: 01/11/2018 HISTORY OF PRESENT ILLNESS: This is a 67-year-old -Cypriot male with a history of coronary artery disease. RCA was stented a couple of years ago and early last year, stent was found to be widely patent. He also has had narrow complex SVT at a rate of 180 beats per minute, and has presented with this a few times, but he has never had atrial flutter or fibrillation. He is a frequent visitor to this hospital, comes here almost on a weekly basis or every other week. He presented to the Emergency Department because of palpitations and he was found to be in atrial flutter with 2:1 AV conduction. He was on IV Cardizem drip and eventually reverted to normal sinus rhythm and drip was discontinued. He did not have any dizziness or loss of consciousness, but has some chest pain, which he has had for years. PAST MEDICAL HISTORY: Coronary artery disease, type 2 diabetes mellitus, COPD, gastric ulcers, hypothyroidism, BPH and a SVT, also cocaine addict. His medications were reviewed and one of them was flecainide 100 b.i.d., which was started recently for SVT. PHYSICAL EXAMINATION: GENERAL: This is a patient who is alert, oriented. His speech is a little garbled, which is chronic. His complexion is fine. He is not in any distress. He is not tachypneic, but has oxygen on. VITAL SIGNS: Pulse now is 76 and regular, blood pressure 118/66. NECK: JVP difficult to assess. RESPIRATORY: Breath sounds are diminished with hardly any adventitious sounds. EXTREMITIES: There is no edema in the lower extremities. LABORATORY DATA: ECG showed atrial flutter with a rapid ventricular rate, and monitor now shows normal sinus rhythm with a QT interval that seems to be normal. IMPRESSION: This patient has atrial flutter and has gone back to normal sinus rhythm. Dose of flecainide has been increased to 150 b.i.d. and I think he should have chronic anticoagulation unless there is a contraindication to use of this drug. I thank you for this consult. PS: Recent echocardiograms have shown normal LV systolic function. [place], [place] REPORT OF CONSULTATION NAME: DEBORAH SANTACRUZ UNIT #: [id number] ROOM: [facility] DOCTOR: PAM ALVARADO MD BIRTHDATE: [birth year] PAM ALVARADO MD CM:CONSTR:REPORT OF CONSULTATION 1657 01/11/18 2144 interface
--- NOTE | ~2018-01-10 | PR ---
[place], [place] PROGRESS NOTE [id number] UN[facility] #: [id number] ROOM: 517 DOCTOR: NAIN THACKER MD BIRTHDATE: [birth year] DOS: 01/12/2018 SUBJECTIVE: The patient was seen by Dr. Metz. I am seeing this patient on behalf of Dr. Metz. The patient has been admitted multiple times. He has a history of RCA stent many years ago and also had a repeat heart catheterization. The patient stents were all patent. The patient had atrial flutter for a brief period of time, has gone back into normal sinus rhythm. The patient's flecainide has been increased to 150 b.i.d. The patient was seen by Dr. Metz as mentioned. Recent echocardiogram showed an excellent ejection fraction. PHYSICAL EXAMINATION: VITAL SIGNS: His blood pressure today is 115/58 and heart rate is much better 88. NECK: Supple. No JVD. LUNGS: Diminished breath sounds. HEART: Heart sounds are regular. NEUROLOGIC: Stable. REVIEW OF SYSTEMS: As per HPI, 6-8 systems are reviewed. LABORATORY DATA: Hemoglobin 8.6 and hematocrit 27.3. Potassium was 3.3, it looks like it has been supplemented by the house staff. IMPRESSION AND PLAN: The patient with a brief episode of atrial fibrillation, on flecainide, which has been increased. Long-term anticoagulation should be considered with Eliquis or Xarelto as mentioned by Dr. Metz. Monitor the H and H very closely and we will closely follow up. NAIN THACKER MD CM:PNTRANS 0732 0747 NAIN THACKER MD 01/12/18 0745 interface
--- NOTE | ~2018-01-10 | CON ---
[place], [place] REPORT OF CONSULTATION NAME: DEBORAH SANTACRUZ UNIT #: [id number] ROOM: 517 DOCTOR: YINKA HOOVERMADAY J BIRTHDATE: [birth year] DOS: 01/12/2018 PALLIATIVE CONSULT NOTE HISTORY OF PRESENT ILLNESS: The patient is a 67-year-old gentleman, presently admitted for atrial flutter with rapid ventricular response. The patient came in for palpitations. The patient says he is starting to feel better. No complaints of any chest pains recently and no increasing shortness of breath. No dizziness or fainting episode. No other GI or urinary symptoms. Just generalized weakness. The patient says he is living in an apartment building and is helped by his niece and also followed by ____ and he gets food with the help of Meals on Wheels. The patient says he is able to walk a little bit and he likes his present living situation. The patient was treated with flecainide, seen by his precision jig grinder, Dr. Mitchell and Dr. Metz and his heart rate is better controlled now. REVIEW OF SYSTEMS: LUNGS: No increasing shortness of breath. GASTROINTESTINAL: No nausea, vomiting, diarrhea or constipation. CARDIOVASCULAR: No chest pains, but recent complaints of palpitations. PAST MEDICAL HISTORY: 1. Positive for history of alcoholism. 2. Chronic kidney disease stage 3a 3. Benign prostatic hypertrophy. 4. Coronary artery disease of the [place] vessels. 5. Chronic diastolic type CHF 6. History of cocaine abuse. 7. COPD. 8. Diabetic polyneuropathy. 9. Type 2 diabetes mellitus. 10. Generalized anxiety disorder and major depression. 11. Obesity. 12. GERD. 13. Chronic gouty arthritis. 14. Mixed hyperlipidemia. 15. Hypothyroidism. 16. Moderate protein calorie malnutrition. 17. History of generalized seizure disorder. 18. History of total right hip replacement. 19. Laparoscopic cholecystectomy. 20. Amputation of the left great toe. MEDICATIONS: The patient is on flecainide, vitamin D, magnesium, iron, Cymbalta, Lipitor, Lovenox, Protonix, Carafate, metoprolol, gabapentin, Depakote, Vicodin, Xanax. [place], [place] REPORT OF CONSULTATION NAME: NOAMDEBORAH UNIT #: [id number] ROOM: [facility] DOCTOR: YINKA HOOVERMADAY Nava BIRTHDATE: [birth year] ALLERGIES: Known allergies to DOXYCYCLINE, TAZOBACTAM, PIPERACILLIN which is PENICILLIN AND VANCOMYCIN. PHYSICAL EXAMINATION: GENERAL: Alert and oriented x 3, in no visible distress, generalized weakness and morbid obesity. EXTREMITIES: With amputation of the left great toe in remote past. LABORATORY DATA: Blood cultures have been negative. BUN and creatinine 24 and 1.5, blood sugar 180. Hemoglobin 8.6, white cell count of 3500, platelets low at 108,000. IMPRESSION: The patient with multiple medical problems including advanced coronary artery disease, chronic diastolic type compensated congestive heart failure, atrial flutter with rapid ventricular response, type 2 diabetes mellitus and stage 3a chronic kidney disease with diabetic nephropathy, lives by himself in an apartment building with help from his niece who visits him regularly and ____ and also he gets Meals on Wheels. The patient is quite satisfied with his present living situation and would like to go back home and is not interested in hospice services at this time. The patient does get readmitted to hospital very frequently. For 1 year now the patient has been admitted monthly to the hospital. The patient may benefit from a alf placement where he can get better medical care, which may reduce his hospital readmissions. The patient does not appear to be interested in hospice services at this time, but he will be followed by palliative care nursing. Chronic obstructive pulmonary disease and centrilobular emphysema with chronic shortness of breath, treated and controlled. Chronic kidney disease and diabetic nephropathy stage 3a, appears to be stable at this time. Compensated diastolic type congestive heart failure with chronic shortness of breath. Generalized seizure disorder, asymptomatic with treatment with Depakote. Benign prostatic hypertrophy. The patient remains on Flomax and finasteride. Coronary artery disease of the [place] vessels. The patient remains on Ranexa and is followed by Cardiology. Atrial flutter with rapid ventricular response, better controlled with flecainide now. Dr. Mitchell and Dr. Metz, his cardiologists are following him. The patient with multiple medical problems and advanced adult failure to thrive with recurrent admissions to the hospital, almost monthly for last 1 year. [place], [place] REPORT OF CONSULTATION NAME: DEBORAH SANTACRUZ [facility] #: [id number] UNIT #: [id number] ROOM: 517 DOCTOR: YINKA HOOVER,MADAY Nava BIRTHDATE: [birth year] detention placement should be considered to reduce his hospital readmission and to make sure that he gets more reliable medical treatment. The patient is apparently noncompliant with treatment and having multiple medical issues. He gets sick at home and returns to the hospital for acute care. The patient can be followed by palliative care nurses at his apartment or if he decides to go for alf placement. At this time the patient prefers to be in the apartment where he lives with the help of his niece, ____ and Meals on Wheels. Dr. Zeus Costello, thank you for asking us to evaluate your patient. The patient will be followed by palliative care nursing and after discharge from the hospital. The patient's frequent readmissions to the hospital may be reduced if he decides to stay at a long-term facility because he is apparently not compliant with his medical treatment at home, although he likes his home living situation at present time. MADAY HONEYCUTT MD CM:CONSTR:REPORT OF CONSULTATION 1639 01/13/18 0502 interface
--- NOTE | ~2018-01-10 | EKG ---
[place], [place] ELECTROCARDIOGRAM REPORT NAME: DEBORAH SANTACRUZ UNIT #: [id number] ROOM: [facility] DOCTOR: PAM ALVARADO MD BIRTHDATE: [birth year] DOS: 01/14/2018 TIME: 0720 hours. FINDINGS: 1. Normal sinus rhythm at 74 beats per minute. 2. First degree heart block. 3. An old inferior wall ME. 4. Probably an old anterior wall ME. 5. An abnormal ECG. 6. No significant change from ECG just done a minute or 2 earlier. PAM ALVARADO MD CM:EKGRPT:ELECTROCARDIOGRAM REPORT 1849 22 PAM ALVARADO MD
--- NOTE | ~2018-01-10 | EKG ---
[place], [place] ELECTROCARDIOGRAM REPORT NAME: DEBORAH SANTACRUZ UNIT #: [id number] ROOM: [facility] DOCTOR: PAM ALVARADO MD BIRTHDATE: [birth year] DOS: 01/10/2018 TIME: 1736 hours. FINDINGS: 1. Atrial flutter with a ventricular rate of 100 beats per minute. 2. Old inferior wall MS. 3. Probably old anterior wall MS. 4. When compared with an ECG done about 4 hours earlier, atrial flutter persists, but ventricular rate has slowed down. PAM ALVARADO MD CM:EKGRPT:ELECTROCARDIOGRAM REPORT 1845 191 PAM ALVARADO MD
--- NOTE | ~2018-01-10 | PR ---
[place], [place] PROGRESS NOTE NAME: DEBORAH SANTACRUZ [facility] #: [id number] UNIT #: [id number] ROOM: 517 DOCTOR: PAM ALVARADO MD BIRTHDATE: [birth year] DOS: 01/14/2018 He is complaining of some chest pain. This started yesterday. He also had some cough after he tried to eat food as if it got stuck in his chest. His breathing is fine. He has no palpitations. PHYSICAL EXAMINATION: GENERAL: The patient is morbidly obese. Complexion is fine. He has some diffuse rash on the face. VITAL SIGNS: Pulse is 75 and regular, blood pressure 156/76. NECK: JVP difficult to assess. LUNGS: Clear. EXTREMITIES: There is no edema in lower extremities. Monitor shows normal sinus rhythm. IMPRESSION: 1. This patient had atrial flutter with 2:1 AV conduction and is now in normal sinus rhythm. 2. He also has supraventricular tachycardia, which he has not had this now. He was started on flecainide 150 b.i.d., not long ago. 3. Chest pain that he is complaining of is most likely noncardiac. PAM ALVARADO MD CM:PNTRANS 19 23 PAM ALVARADO MD 01/14/182021 interface
--- NOTE | ~2018-01-10 | EKG ---
[place], [place] ELECTROCARDIOGRAM REPORT NAME: DEBORAH SANTACRUZ UNIT #: [id number] ROOM: [facility] DOCTOR: PAM ALVARADO MD BIRTHDATE: [birth year] DOS: 01/12/2018 TIME: 0719 hours. FINDINGS: 1. Normal sinus rhythm at 77 beats per minute. 2. First degree heart block. 3. Inferior wall myocardial infarction. 4. Probably old anterior wall ME. 5. No significant ECG change from ECG done a few days ago. PAM ALVARADO MD CM:EKGRPT:ELECTROCARDIOGRAM REPORT 1849 19 PAM ALVARADO MD
--- NOTE | ~2018-01-10 | CON ---
[place], [place] REPORT OF CONSULTATION NAME: DEBORAH SANTACRUZ UNIT #: [id number] ROOM: 517 DOCTOR: ZHANNA HOOVERBETHEL BIRTHDATE: [birth year] DOS: 01/15/2018 HISTORY OF PRESENT ILLNESS: A 67-year-old patient who has presented with H of H initially 12 and 37, which is gradually dropped and the patient continued with dyspepsia, abdominal pain nonspecific, undergoing investigation with EGD planning. His fluid studies were negative. Her comprehensive metabolic panel revealed glucose of greater than 470. BUN and creatinine 24 and 1.8. Electrolytes were balanced, magnesium of 1.1. Troponin was normal. Lactic acid 5.3. Initially chest x-ray normal single image. Urine drugs study for opiate positivity. Lactic acid was followed and gradually comes down. His comprehensive metabolic panel of today, normalization of sugar nearly, liver function test normal. H and H 10 and 31. Troponins were negative. PAST MEDICAL HISTORY: Obesity, rosacea, coronary artery disease, congestive heart failure, COPD, depression, diabetes mellitus, CVA, electrolyte imbalance, gastroesophageal reflux. 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 SOCIAL HISTORY: Passive smoker, social drinker, 6 pack a week. FAMILY HISTORY: Noncontributory. MEDICATION: List has been reviewed. Records have been reviewed. ALLERGIES: Noticed PENICILLIN, TAZOBACTAM, VANCOMYCIN AND DOXYCYCLINE. REVIEW OF SYSTEMS: HEENT: Denies double vision, blurred vision. RESPIRATORY: Denies shortness of breath. CARDIOVASCULAR: Denies chest pain. DIGESTIVE SYSTEM: Abdominal pain. PHYSICAL EXAMINATION: VITAL SIGNS: Stable, rosacea is noticed. HEENT: Within normal limit. NECK: Supple, no thyromegaly. CHEST: Symmetric anatomy, COPD pattern. HEART: Normal sinus rhythm, no gallop, no murmur. ABDOMEN: Nonspecific epigastric tenderness. EXTREMITIES: 1+ edema. NEUROLOGIC: Alert and slow orientation. IMPRESSION: Anemia, drop in H and H, epigastric distress. Other adjunctive diagnoses as outlined above in past medical, surgical history. PLAN: Endoscopic assessment. [place], [place] REPORT OF CONSULTATION NAME: DEBORAH SANTACRUZ UNIT #: [id number] ROOM: [facility] DOCTOR: ZHANNA HOOVER,BETHEL BIRTHDATE: [birth year] BETHEL CHAO MD CM:CONSTR:REPORT OF CONSULTATION 1102 01/16/18 0132 interface
--- NOTE | ~2018-01-10 | O ---
[place], [place] OPERATIVE NOTE NAME: [facility]Z [id number] UNIT #: [id number] ROOM: 517 DOCTOR: BETHEL CHAO MD BIRTHDATE: [birth year] DOS: 01/15/2018 GASTROENDOSCOPIC REPORT INDICATIONS: A 67-year-old patient, who has presented with chief complaint of epigastric abdominal pain, anemia, drop in H and H. PROCEDURE: Today's procedure part of investigation is panendoscopy. PREMEDICATION: Propofol. SCOPE: Olympus forward-viewing gastroscope Q10 video. REPORT: After putting the patient in the left lateral position and after application of lubricant to the scope, the scope was introduced. Thereafter, under direct visualization, I advanced through the length of esophagus without difficulty. Esophagus, cervicothoracic distally carefully examined. A very small hiatal hernia was noticed. Gastric pouch was entered. Gastritis noticed. No biopsies obtained. Duodenal bulb, second and third part within normal limit. The patient extubated, tolerated the procedure well. IMPRESSION: Mild gastritis, small hiatal hernia. PLAN AND DISCUSSION: We are going to proceed with feeding the patient with a soft diet. Other systemic management in progress. BETHEL CHAO MD CM:OPRECORD:OPERATIVE NOTE 1155 1239 BETHEL CHAO MD 01/15/18 1237 interface
--- NOTE | ~2018-01-10 | EKG ---
[place], [place] ELECTROCARDIOGRAM REPORT NAME: DEBORAH SANTACRUZ UNIT #: [id number] ROOM: [facility] DOCTOR: PAM ALVARADO MD BIRTHDATE: [birth year] DOS: 01/10/2018 TIME: 1336 hours. FINDINGS: 1. Atrial flutter with 2:1 AV conduction with ventricular rate of 151 beats per minute. 2. Old inferior wall AK. 3. Probably old anterior wall AK. 4. An abnormal ECG. 5. No previous tracing is available for comparison. PAM ALVARADO MD CM:EKGRPT:ELECTROCARDIOGRAM REPORT 1845 1908 PAM ALVARADO MD
[2018-01-10 13:39] LABS: BASO % 0.4 % (0.0-1.0); EOS # 0.2 10*3/uL (0.0-0.4); EOS % 2.3 % (1.0-4.0); HEMATOCRIT 37.4 % (42.0-52.0); HEMOGLOBIN 12.4 g/dl (14.0-18.0); LYMPH # 2.2 10*3/uL (1.3-4.4); LYMPH % 30.1 % (27.0-41.0); MEAN CELL VOLUME 90.3 fl (80.0-94.0); MEAN CORPUSCULAR HGB CONC 33.2 g/dl (33.0-37.0); MEAN PLATELET VOLUME 10.6 fl (9.6-12.3); MONO # 0.5 10*3/uL (0.1-1.0); MONO % 7.5 % (3.0-9.0); NEUT # 4.3 10*3/uL (2.3-7.9); NEUT % 59.1 % (47.0-73.0); PLATELET COUNT AUTOMATED 166 10*3/uL (130-400); RED BLOOD COUNT 4.14 10*6/uL (4.50-5.90); RED CELL DISTRI WIDTH 14.6 % (0-14.5); WHITE BLOOD COUNT 7.2 10*3/uL (4.8-10.8)
[2018-01-10 13:48] LABS: ACT PARTIAL THROMBO TIME 26.3 SECONDS (20.8-31.5); INTERNATIONAL NORM RATIO 1.1 (2.0-3.5)
[2018-01-10 13:58] LABS: ALBUMIN 2.9 gm/dl (3.1-4.5); CREATININE 1.87 mg/dL (0.70-1.30); POTASSIUM 4.2 mmol/L (3.5-5.1); TOTAL PROTEIN 6.6 gm/dL (6.4-8.2); TROPONIN I 0.021 ng/ml (<0.045)
[2018-01-10 15:44] LABS: BILIRUBIN 1+ (NEGATIVE); BLOOD TRACE-LYSED (NEGATIVE); CLARITY CLEAR (CLEAR); COLOR YELLOW (YELLOW); GLUCOSE 3+ (NEGATIVE); KETONE TRACE (NEGATIVE); LEUKO ESTERASE NEGATIVE (NEGATIVE); NITRITE NEGATIVE (NEGATIVE); SPECIFIC GRAVITY 1.025 (1.005-1.030); UROBILINOGEN 0.2 E.U./dl (0.2-1.0)
[2018-01-10 15:52] LABS: URINE AMPHETAMINES < 1000 (1000ng/ml); URINE BARBITURATES < 200 (200ng/ml); URINE BENZODIAZEPINES < 200 (200ng/ml); URINE CANNABINOIDS (THC) < 50 (50ng/ml); URINE COCAINE < 300 (300ng/ml); URINE METHADONE < 300 (300ng/ml); URINE OPIATES > 300 (300ng/ml)
[2018-01-10 15:53] LABS: BACTERIA TRACE
[2018-01-10 15:56] LABS: URINE PHENCYCLIDINE < 25 (25ng/ml)
[2018-01-10] MEDS ORDERED: LOPRESSOR25 MG PO (17:22)
[2018-01-10] MEDS ORDERED: FLECAINIDE ACE100 M1 PO (17:23)
[2018-01-10] MEDS ORDERED: NORCO 5-325 TA1 EACH PO (17:34)
[2018-01-11] VITALS (10 sets, daily range): BP systolic 93–118; BP diastolic 47–68
[2018-01-11 05:43] LABS: ALBUMIN 2.5 gm/dl (3.1-4.5); ALKALINE PHOSPHATASE 102 U/L (45-117); BUN 24 mg/dl (7-24); CHLORIDE 104 mmol/L (98-107); CREATININE 1.37 mg/dL (0.70-1.30); PHOSPHOROUS 3.2 mg/dL (2.5-4.9); POTASSIUM 3.3 mmol/L (3.5-5.1); SGOT/AST 25 IU/L (3-35); SGPT/ALT 35 U/L (12-78); SODIUM 140 mmol/L (136-145); TOTAL PROTEIN 5.3 gm/dL (6.4-8.2)
[2018-01-11 05:50] LABS: BASO % 0.5 % (0.0-1.0); EOS # 0.2 10*3/uL (0.0-0.4); EOS % 3.3 % (1.0-4.0); LYMPH # 1.5 10*3/uL (1.3-4.4); LYMPH % 26.9 % (27.0-41.0); MEAN CELL VOLUME 91.4 fl (80.0-94.0); MEAN CORPUSCULAR HGB 30.2 pg (27.0-31.0); MEAN PLATELET VOLUME 11.2 fl (9.6-12.3); MONO # 0.5 10*3/uL (0.1-1.0); MONO % 8.2 % (3.0-9.0); NEUT # 3.3 10*3/uL (2.3-7.9); NEUT % 60.6 % (47.0-73.0); NUCLEATED RED BLOOD CELL 0.4 % (0.0-0.0); PLATELET COUNT AUTOMATED 145 10*3/uL (130-400); RED BLOOD COUNT 3.25 10*6/uL (4.50-5.90); RED CELL DISTRI WIDTH 14.8 % (0-14.5); WHITE BLOOD COUNT 5.5 10*3/uL (4.8-10.8)
[2018-01-11 06:02] LABS: HEMATOCRIT 29.7 % (42.0-52.0); HEMOGLOBIN 9.8 g/dl (14.0-18.0)
[2018-01-12] VITALS: BP 115/58
[2018-01-12 07:23] LABS: BASO % 0.6 % (0.0-1.0); EOS # 0.1 10*3/uL (0.0-0.4); HEMATOCRIT 27.3 % (42.0-52.0); HEMOGLOBIN 8.6 g/dl (14.0-18.0); LYMPH # 1.2 10*3/uL (1.3-4.4); LYMPH % 33.3 % (27.0-41.0); MEAN CELL VOLUME 94.1 fl (80.0-94.0); MEAN CORPUSCULAR HGB 29.7 pg (27.0-31.0); MEAN CORPUSCULAR HGB CONC 31.5 g/dl (33.0-37.0); MEAN PLATELET VOLUME 10.9 fl (9.6-12.3); MONO # 0.2 10*3/uL (0.1-1.0); MONO % 5.6 % (3.0-9.0); NEUT % 55.7 % (47.0-73.0); PLATELET COUNT AUTOMATED 108 10*3/uL (130-400); RED CELL DISTRI WIDTH 14.8 % (0-14.5); WHITE BLOOD COUNT 3.5 10*3/uL (4.8-10.8)
[2018-01-12 07:29] LABS: ALBUMIN 2.1 gm/dl (3.1-4.5); CREATININE 1.53 mg/dL (0.70-1.30); POTASSIUM 4.1 mmol/L (3.5-5.1); TOTAL PROTEIN 5.1 gm/dL (6.4-8.2)
[2018-01-12 08:00] VITALS: BP 134/78
[2018-01-12 12:00] VITALS: BP 104/54
[2018-01-12 16:00] VITALS: BP 133/77
[2018-01-12 20:00] VITALS: BP 132/67
[2018-01-12 23:55] VITALS: BP 131/74
[2018-01-13 06:38] LABS: BASO % 0.2 % (0.0-1.0); EOS # 0.1 10*3/uL (0.0-0.4); EOS % 2.9 % (1.0-4.0); HEMATOCRIT 27.7 % (42.0-52.0); LYMPH # 1.5 10*3/uL (1.3-4.4); LYMPH % 35.4 % (27.0-41.0); MEAN CELL VOLUME 94.2 fl (80.0-94.0); MEAN CORPUSCULAR HGB 30.6 pg (27.0-31.0); MEAN CORPUSCULAR HGB CONC 32.5 g/dl (33.0-37.0); MEAN PLATELET VOLUME 10.5 fl (9.6-12.3); MONO # 0.3 10*3/uL (0.1-1.0); MONO % 6.6 % (3.0-9.0); NEUT # 2.2 10*3/uL (2.3-7.9); NEUT % 53.7 % (47.0-73.0); PLATELET COUNT AUTOMATED 122 10*3/uL (130-400); RED BLOOD COUNT 2.94 10*6/uL (4.50-5.90); RED CELL DISTRI WIDTH 14.9 % (0-14.5); WHITE BLOOD COUNT 4.1 10*3/uL (4.8-10.8)
[2018-01-13 06:59] LABS: ALBUMIN 2.3 gm/dl (3.1-4.5); CREATININE 1.54 mg/dL (0.70-1.30); POTASSIUM 4.3 mmol/L (3.5-5.1); TOTAL PROTEIN 5.3 gm/dL (6.4-8.2)
[2018-01-13 08:00] VITALS: BP 130/70
[2018-01-13 12:00] VITALS: BP 142/84
[2018-01-13 16:00] VITALS: BP 155/88
[2018-01-13 20:00] VITALS: BP 158/84
[2018-01-14 00:25] VITALS: BP 152/78
[2018-01-14 07:45] LABS: BASO % 0.4 % (0.0-1.0); EOS # 0.1 10*3/uL (0.0-0.4); EOS % 2.3 % (1.0-4.0); HEMOGLOBIN 9.6 g/dl (14.0-18.0); LYMPH # 1.7 10*3/uL (1.3-4.4); LYMPH % 34.2 % (27.0-41.0); MEAN CELL VOLUME 92.9 fl (80.0-94.0); MEAN CORPUSCULAR HGB 30.8 pg (27.0-31.0); MEAN CORPUSCULAR HGB CONC 33.1 g/dl (33.0-37.0); MEAN PLATELET VOLUME 10.4 fl (9.6-12.3); MONO # 0.4 10*3/uL (0.1-1.0); MONO % 8.5 % (3.0-9.0); NEUT # 2.6 10*3/uL (2.3-7.9); NUCLEATED RED BLOOD CELL 0.6 % (0.0-0.0); PLATELET COUNT AUTOMATED 139 10*3/uL (130-400); RED BLOOD COUNT 3.12 10*6/uL (4.50-5.90); RED CELL DISTRI WIDTH 15.3 % (0-14.5); WHITE BLOOD COUNT 4.9 10*3/uL (4.8-10.8)
[2018-01-14 08:00] VITALS: BP 124/80
[2018-01-14 08:00] LABS: CKMB 0.8 ng/ml (0.5-3.6)
[2018-01-14 08:06] LABS: TROPONIN I < 0.015 ng/ml (<0.045)
[2018-01-14 08:14] LABS: ALBUMIN 2.5 gm/dl (3.1-4.5); ALKALINE PHOSPHATASE 104 U/L (45-117); BUN 21 mg/dl (7-24); CHLORIDE 105 mmol/L (98-107); POTASSIUM 4.2 mmol/L (3.5-5.1); SGOT/AST 16 IU/L (3-35); SGPT/ALT 26 U/L (12-78); SODIUM 140 mmol/L (136-145); TOTAL PROTEIN 5.8 gm/dL (6.4-8.2)
[2018-01-14 12:00] VITALS: BP 156/76
[2018-01-14 16:00] VITALS: BP 110/70
[2018-01-14 20:00] VITALS: BP 138/73
[2018-01-15] VITALS (7 sets, daily range): BP systolic 114–140; BP diastolic 57–72
[2018-01-15 07:31] LABS: BASO % 0.5 % (0.0-1.0); EOS # 0.2 10*3/uL (0.0-0.4); HEMATOCRIT 31.4 % (42.0-52.0); HEMOGLOBIN 10.1 g/dl (14.0-18.0); LYMPH # 1.9 10*3/uL (1.3-4.4); LYMPH % 32.6 % (27.0-41.0); MEAN CELL VOLUME 92.6 fl (80.0-94.0); MEAN CORPUSCULAR HGB 29.8 pg (27.0-31.0); MEAN CORPUSCULAR HGB CONC 32.2 g/dl (33.0-37.0); MEAN PLATELET VOLUME 10.7 fl (9.6-12.3); MONO # 0.4 10*3/uL (0.1-1.0); MONO % 7.2 % (3.0-9.0); NEUT # 3.3 10*3/uL (2.3-7.9); NEUT % 54.9 % (47.0-73.0); NUCLEATED RED BLOOD CELL 0.5 % (0.0-0.0); PLATELET COUNT AUTOMATED 172 10*3/uL (130-400); RED BLOOD COUNT 3.39 10*6/uL (4.50-5.90); RED CELL DISTRI WIDTH 15.6 % (0-14.5)
[2018-01-15 07:45] LABS: ALBUMIN 2.6 gm/dl (3.1-4.5); ALKALINE PHOSPHATASE 105 U/L (45-117); BUN 23 mg/dl (7-24); CHLORIDE 102 mmol/L (98-107); CREATININE 1.24 mg/dL (0.70-1.30); POTASSIUM 4.1 mmol/L (3.5-5.1); SGOT/AST 14 IU/L (3-35); SGPT/ALT 24 U/L (12-78); SODIUM 139 mmol/L (136-145); TOTAL PROTEIN 6.1 gm/dL (6.4-8.2)
[2018-01-15] MEDS ORDERED: FLECAINIDE ACE100 M1 PO (14:42)
[2018-01-15] MEDS ORDERED: XARE20MG PO (14:42)
== END 2018-01-15 15:54 | disposition home or self-care (01) | DRG 951 ==
LOC: ED 13:20 → EDHOLD 16:28 → 5E 16:28 → ICCU 16:52 → 5E 01-11 12:59
PROVIDERS: Emergency Medicine; Family Medicine Adult Medicine; Internal Medicine; Student in an Organized Health Care Education/Training Program
PROC: 0DJ08ZZ Inspection of Upper Intestinal Tract, Via Natural or Artificial Opening Endoscopic (ICD-10-PCS; principal; 2018-01-15)
DX: Z68.35 Body mass index [BMI] 35.0-35.9, adult (principal); E11.00 Type 2 diabetes mellitus with hyperosmolarity without nonketotic hyperglycemic-hyperosmolar coma (NKHHC); E44.0 Moderate protein-calorie malnutrition; E11.22 Type 2 diabetes mellitus with diabetic chronic kidney disease; E11.42 Type 2 diabetes mellitus with diabetic polyneuropathy; I47.1 Supraventricular tachycardia; I50.32 Chronic diastolic (congestive) heart failure; I13.0 Hypertensive heart and chronic kidney disease with heart failure and stage 1 through stage 4 chronic kidney disease, or unspecified chronic kidney disease; I48.91 Unspecified atrial fibrillation; I48.92 Unspecified atrial flutter; E83.42 Hypomagnesemia; J44.1 Chronic obstructive pulmonary disease with (acute) exacerbation; E66.9 Obesity, unspecified; N40.0 Benign prostatic hyperplasia without lower urinary tract symptoms; I25.10 Atherosclerotic heart disease of native coronary artery without angina pectoris; N18.3 Chronic kidney disease, stage 3 (moderate); F32.9 Major depressive disorder, single episode, unspecified; F41.1 Generalized anxiety disorder; K21.9 Gastro-esophageal reflux disease without esophagitis; E78.5 Hyperlipidemia, unspecified; G89.29 Other chronic pain; E03.9 Hypothyroidism, unspecified; G40.909 Epilepsy, unspecified, not intractable, without status epilepticus; Z96.641 Presence of right artificial hip joint; R74.0 Nonspecific elevation of levels of transaminase and lactic acid dehydrogenase [LDH]; D64.9 Anemia, unspecified; K29.70 Gastritis, unspecified, without bleeding; K44.9 Diaphragmatic hernia without obstruction or gangrene; M1A.9XX0 Chronic gout, unspecified, without tophus (tophi); Z79.01 Long term (current) use of anticoagulants; Z86.73 Personal history of transient ischemic attack (TIA), and cerebral infarction without residual deficits; Z88.0 Allergy status to penicillin; I25.2 Old myocardial infarction; Z88.1 Allergy status to other antibiotic agents; Z79.4 Long term (current) use of insulin; Z88.8 Allergy status to other drugs, medicaments and biological substances; Z79.899 Other long term (current) drug therapy; Z90.49 Acquired absence of other specified parts of digestive tract; Z89.412 Acquired absence of left great toe; Z95.5 Presence of coronary angioplasty implant and graft; Z87.891 Personal history of nicotine dependence; Z82.49 Family history of ischemic heart disease and other diseases of the circulatory system; Z80.0 Family history of malignant neoplasm of digestive organs; Z82.3 Family history of stroke

== ENCOUNTER 2018-01-18 15:21 | Inpatient (IN) | payer OTHER, MEDICAID ==
[2018-01-18] VITALS (7 sets, daily range): BP systolic 71–134; BP diastolic 44–104
[~2018-01-18] VITALS: Ht 175.3 cm; Wt 108.2 kg
--- NOTE | ~2018-01-18 | CON ---
[place], [place] REPORT OF CONSULTATION NAME: [id number] UNIT #: [id number] [facility]OM: [facility] DOCTOR: NAIN THACKER MD BIRTHDATE: [birth year] DOS: 01/19/2018 HISTORY OF PRESENT ILLNESS: The patient is 67 years old with multiple admissions in the hospital. I am seeing on behalf of Dr. Metz. The patient has a known history of coronary artery disease and history of drug abuse. The patient apparently discharged last week. The patient stated that he was lightheaded in the bathroom and upon standing, blacked out and fell, then he got up, he does not remember, on the way back, he blacked out again. The patient states he cannot remember anything. No acute EKG changes suggestion of myocardial injury or infarction. Known history of coronary artery disease and supraventricular tachycardia with frequent Emergency Department visits. The patient also has history of hypotension. He had unequal pupils. The patient is quite somnolent. I am not able to get much history from the patient. Blood sugar was normal. CAT scan showed no acute fracture or traumatic issues. Mild to moderate atrophy, mild presumed chronic microvascular ischemic changes. The patient is examined in the Intensive Care Unit. PAST MEDICAL HISTORY: Significant for cardiac dysrhythmia, congestive heart failure, cardiomyopathy, depression, drug abuse, hypertension, history of CVA with residual deficit, history of ST elevation infarction, history of coronary artery disease, history of stents, and diabetes mellitus. PAST SURGICAL HISTORY: Rotator cuff surgery, laparoscopic cholecystectomy, hip replacement, status post amputation of the left great toe, status post I and D. SOCIAL HISTORY: Permanent 6 packs of beer per week, cocaine abuse, former smoker. FAMILY HISTORY: Positive for coronary artery disease. ALLERGIES: VANCOMYCIN AND DOXYCYCLINE. HOME MEDICATIONS: Atorvastatin, ferrous sulfate, insulin, magnesium, metoprolol, rivaroxaban, and sucralfate. REVIEW OF SYSTEMS: Somewhat restricted because of altered mental status and lethargy. HEENT: No visual disturbances. Complains of headache. No fever, no chills. CARDIOVASCULAR: No chest discomfort. No palpitations. RESPIRATORY: No cough. No shortness of breath. ABDOMEN: Reports abdominal pain, generalized pain. GENITOURINARY: No dysuria. NEUROLOGIC: Somewhat lethargic, but arousable. PSYCHIATRIC: Depression. PHYSICAL EXAMINATION: VITAL SIGNS: Blood pressure is 98/48, pulse is 74. GENERAL: Alert, awake, not in distress. HEENT: Unremarkable. No carotid bruit. No thyromegaly. Pupils are reactive. [place], [place] REPORT OF CONSULTATION NAME: DEBORAH SANTACRUZ UNIT #: [id number] ROOM: [facility] DOCTOR: NAIN THACKER MD BIRTHDATE: [birth year] LUNGS: Diminished air entry. HEART: Heart sounds are regular. ABDOMEN: Soft, positive bowel sounds. NEUROLOGIC: Moving all extremities, intact. LABORATORY DATA: Shows hemoglobin 9.4, hematocrit 28.4, creatinine is 1.7. Sodium is 142. This morning, blood pressure is much better, 150/70. IMPRESSION: 1. Syncopal episode, probable hypotension, probable vasovagal episode. 2. Known history of coronary artery disease. 3. Hypertension. 4. Benign prostatic hyperplasia. 5. Seizure disorder. 6. History of cerebrovascular accident. 7. Diabetes mellitus. RECOMMENDATIONS: Agree with the present management. Agree with IV hydration. Monitor the blood pressure very closely. Hold antihypertensives till the pressure comes up. Continue neurological workup. Get an echocardiogram to assess the ejection fraction and we will follow up. NAIN THACKER MD CM:CONSTR:REPORT OF CONSULTATION 0730 01/19/18 0746 interface
--- NOTE | ~2018-01-18 | EKG ---
[place], [place] ELECTROCARDIOGRAM REPORT NAME: DEBORAH SANTACRUZ UNIT #: [id number] ROOM: 428 DOCTOR: PAM ALVARADO MD BIRTHDATE: [birth year] DOS: 01/18/2018 TIME: 1545 hours. FINDINGS: 1. Normal sinus rhythm at 74 beats per minute. 2. An intraventricular conduction defect. 3. An old inferior wall MS. 4. An abnormal ECG. 5. No previous tracing is available for comparison. PAM ALVARADO MD CM:EKGRPT:ELECTROCARDIOGRAM REPORT 1347 1359 PAM ALVARADO MD
--- NOTE | ~2018-01-18 | PR ---
[place], [place] PROGRESS NOTE NAME: DEBORAH SANTACRUZ UNIT #: [id number] ROOM: 428 DOCTOR: NAIN THACKER MD BIRTHDATE: [birth year] DOS: 01/20/2018 SUBJECTIVE: The patient is evaluated. The patient is comfortably sleeping at this point. He appears to be very comfortable. REVIEW OF SYSTEMS: A 6-8 systems reviewed, unchanged, and is stable. PHYSICAL EXAMINATION: VITAL SIGNS: Blood pressure is stable. His pressure is 140/69, heart rate is 73, respiratory rate is 19. She is afebrile. HEENT: Unremarkable. NECK: Supple. No JVD. LUNGS: Clear. HEART: Sounds are regular. ABDOMEN: Soft. Nontender. NEUROLOGIC: Appears to be stable. LABORATORY DATA: Sodium 142, potassium 4, BUN and creatinine is 25 and 1.75. Hemoglobin and hematocrit 9.4 and 28.4. IMPRESSION: The patient is admitted with hypotension, syncope, gastroesophageal reflux disease, coronary artery disease, and chronic diastolic heart failure. RECOMMENDATIONS: Continue the present medications as ordered. The patient is significantly improving. Agree with PT, OT, and present medications, which have been adjusted and we will follow up. NAIN THACKER MD CM:PNTRANS 0726 0810 NAIN THACKER MD 01/20/18 0808 interface
[~2018-01-18 15:21] MED LIST changes: +XARE20MG PO
[2018-01-18] MEDS ORDERED: VITAMIN D31000 UNI1 PO (16:43)
[2018-01-18 16:54] LABS: ABG HCO3 19.7 mmol/l (22-26); ABG O2 SATURATION 99.5 % (95-97); ARTERIAL BLOOD GAS PCO2 40.6 mmHg (35-45); ARTERIAL BLOOD GAS PH 7.305 (7.35-7.45)
[2018-01-18 16:56] LABS: ABG BASE EXCESS -5.8 mmol/L (-2.0-2.0)
[2018-01-18 18:08] LABS: BASO % 0.2 % (0.0-1.0); EOS # 0.1 10*3/uL (0.0-0.4); EOS % 2.7 % (1.0-4.0); HEMATOCRIT 28.6 % (42.0-52.0); HEMOGLOBIN 9.3 g/dl (14.0-18.0); LYMPH # 1.6 10*3/uL (1.3-4.4); LYMPH % 31.8 % (27.0-41.0); MEAN CELL VOLUME 91.4 fl (80.0-94.0); MEAN CORPUSCULAR HGB 29.7 pg (27.0-31.0); MEAN CORPUSCULAR HGB CONC 32.5 g/dl (33.0-37.0); MEAN PLATELET VOLUME 10.1 fl (9.6-12.3); MONO # 0.5 10*3/uL (0.1-1.0); MONO % 11.1 % (3.0-9.0); NEUT # 2.6 10*3/uL (2.3-7.9); NEUT % 53.4 % (47.0-73.0); PLATELET COUNT AUTOMATED 164 10*3/uL (130-400); RED BLOOD COUNT 3.13 10*6/uL (4.50-5.90); RED CELL DISTRI WIDTH 15.4 % (0-14.5); WHITE BLOOD COUNT 4.9 10*3/uL (4.8-10.8)
[2018-01-18 18:18] LABS: ACT PARTIAL THROMBO TIME 46.6 SECONDS (20.8-31.5); INTERNATIONAL NORM RATIO 1.8 (2.0-3.5)
[2018-01-18 18:24] LABS: ALBUMIN 2.6 gm/dl (3.1-4.5); CREATININE 2.33 mg/dL (0.70-1.30); TOTAL PROTEIN 5.8 gm/dL (6.4-8.2)
[2018-01-18 18:25] LABS: CKMB 0.8 ng/ml (0.5-3.6)
[2018-01-18 21:40] LABS: BILIRUBIN NEGATIVE (NEGATIVE); BLOOD NEGATIVE (NEGATIVE); CLARITY CLEAR (CLEAR); COLOR YELLOW (YELLOW); GLUCOSE NEGATIVE (NEGATIVE); KETONE NEGATIVE (NEGATIVE); LEUKO ESTERASE NEGATIVE (NEGATIVE); NITRITE NEGATIVE (NEGATIVE); PH 5.5 (5.0-9.0); UROBILINOGEN 0.2 E.U./dl (0.2-1.0)
[2018-01-18 21:48] LABS: BACTERIA TRACE; EPITHELIAL CELLS 20-25; HYALINE CAST 20-25; RBC 0-2 rbc/hpf (0-2)
[2018-01-18 21:49] LABS: URINE AMPHETAMINES < 1000 (1000ng/ml); URINE BARBITURATES < 200 (200ng/ml); URINE BENZODIAZEPINES < 200 (200ng/ml); URINE CANNABINOIDS (THC) < 50 (50ng/ml); URINE COCAINE < 300 (300ng/ml); URINE METHADONE < 300 (300ng/ml); URINE OPIATES > 300 (300ng/ml)
[2018-01-18 21:55] LABS: URINE PHENCYCLIDINE < 25 (25ng/ml)
[2018-01-19] VITALS: BP 144/78
[2018-01-19 04:00] VITALS: BP 154/78
[2018-01-19 05:25] LABS: ALBUMIN 2.6 gm/dl (3.1-4.5); CREATININE 1.75 mg/dL (0.70-1.30); PHOSPHOROUS 3.4 mg/dL (2.5-4.9); TOTAL PROTEIN 5.7 gm/dL (6.4-8.2)
[2018-01-19 05:53] LABS: BASO % 0.4 % (0.0-1.0); EOS # 0.1 10*3/uL (0.0-0.4); EOS % 1.8 % (1.0-4.0); HEMATOCRIT 28.4 % (42.0-52.0); HEMOGLOBIN 9.4 g/dl (14.0-18.0); LYMPH # 1.8 10*3/uL (1.3-4.4); LYMPH % 39.5 % (27.0-41.0); MEAN CELL VOLUME 92.2 fl (80.0-94.0); MEAN CORPUSCULAR HGB 30.5 pg (27.0-31.0); MEAN CORPUSCULAR HGB CONC 33.1 g/dl (33.0-37.0); MEAN PLATELET VOLUME 10.9 fl (9.6-12.3); MONO # 0.6 10*3/uL (0.1-1.0); MONO % 13.2 % (3.0-9.0); NEUT % 44.4 % (47.0-73.0); PLATELET COUNT AUTOMATED 179 10*3/uL (130-400); RED BLOOD COUNT 3.08 10*6/uL (4.50-5.90); RED CELL DISTRI WIDTH 15.4 % (0-14.5); WHITE BLOOD COUNT 4.5 10*3/uL (4.8-10.8)
[2018-01-19 06:14] LABS: ACT PARTIAL THROMBO TIME 45.5 SECONDS (20.8-31.5); INTERNATIONAL NORM RATIO 1.7 (2.0-3.5)
[2018-01-19 08:00] VITALS: BP 148/73
[2018-01-19 10:45] VITALS: BP 149/91
[2018-01-19 16:00] VITALS: BP 148/92
[2018-01-19 20:00] VITALS: BP 152/67
[2018-01-20] VITALS: BP 149/66
[2018-01-20 06:22] LABS: BASO % 0.4 % (0.0-1.0); EOS # 0.1 10*3/uL (0.0-0.4); EOS % 1.6 % (1.0-4.0); HEMATOCRIT 29.1 % (42.0-52.0); HEMOGLOBIN 9.6 g/dl (14.0-18.0); LYMPH # 1.7 10*3/uL (1.3-4.4); LYMPH % 34.1 % (27.0-41.0); MEAN CELL VOLUME 91.2 fl (80.0-94.0); MEAN CORPUSCULAR HGB 30.1 pg (27.0-31.0); MONO # 0.5 10*3/uL (0.1-1.0); MONO % 9.9 % (3.0-9.0); NEUT # 2.6 10*3/uL (2.3-7.9); NEUT % 53.6 % (47.0-73.0); PLATELET COUNT AUTOMATED 187 10*3/uL (130-400); RED BLOOD COUNT 3.19 10*6/uL (4.50-5.90); RED CELL DISTRI WIDTH 15.4 % (0-14.5); WHITE BLOOD COUNT 4.9 10*3/uL (4.8-10.8)
[2018-01-20 06:48] LABS: ALBUMIN 2.8 gm/dl (3.1-4.5); ALKALINE PHOSPHATASE 113 U/L (45-117); BUN 21 mg/dl (7-24); CHLORIDE 102 mmol/L (98-107); CREATININE 1.42 mg/dL (0.70-1.30); POTASSIUM 3.9 mmol/L (3.5-5.1); SGOT/AST 11 IU/L (3-35); SGPT/ALT 17 U/L (12-78); SODIUM 137 mmol/L (136-145); TOTAL PROTEIN 6.4 gm/dL (6.4-8.2)
[2018-01-20 06:52] LABS: INTERNATIONAL NORM RATIO 1.4 (2.0-3.5)
[2018-01-20 08:00] VITALS: BP 125/64
[2018-01-20 10:47] VITALS: BP 143/66
== END 2018-01-20 12:50 | disposition left against medical advice (07) | DRG 312 ==
LOC: ED 15:21 → 4E 16:11 → ICCU 16:11 → EDHOLD 16:11 → ICCU 16:15 → 4E 01-19 11:02
PROVIDERS: Emergency Medicine; Internal Medicine; Internal Medicine Hospice and Palliative Medicine
DX: I95.1 Orthostatic hypotension (principal); E43 Unspecified severe protein-calorie malnutrition; E87.2 Acidosis; E11.42 Type 2 diabetes mellitus with diabetic polyneuropathy; E11.22 Type 2 diabetes mellitus with diabetic chronic kidney disease; E11.65 Type 2 diabetes mellitus with hyperglycemia; I48.92 Unspecified atrial flutter; I50.32 Chronic diastolic (congestive) heart failure; I13.0 Hypertensive heart and chronic kidney disease with heart failure and stage 1 through stage 4 chronic kidney disease, or unspecified chronic kidney disease; Z79.82 Long term (current) use of aspirin; N18.3 Chronic kidney disease, stage 3 (moderate); G40.909 Epilepsy, unspecified, not intractable, without status epilepticus; K21.9 Gastro-esophageal reflux disease without esophagitis; R29.6 Repeated falls; I25.10 Atherosclerotic heart disease of native coronary artery without angina pectoris; G89.29 Other chronic pain; E66.9 Obesity, unspecified; F32.9 Major depressive disorder, single episode, unspecified; E03.9 Hypothyroidism, unspecified; E78.5 Hyperlipidemia, unspecified; J44.9 Chronic obstructive pulmonary disease, unspecified; D64.9 Anemia, unspecified; F14.10 Cocaine abuse, uncomplicated; N40.0 Benign prostatic hyperplasia without lower urinary tract symptoms; Z53.21 Procedure and treatment not carried out due to patient leaving prior to being seen by health care provider; M1A.9XX0 Chronic gout, unspecified, without tophus (tophi); M50.30 Other cervical disc degeneration, unspecified cervical region; Z96.641 Presence of right artificial hip joint; F41.1 Generalized anxiety disorder; Z68.29 Body mass index [BMI] 29.0-29.9, adult; Z88.1 Allergy status to other antibiotic agents; Z87.891 Personal history of nicotine dependence; Z86.73 Personal history of transient ischemic attack (TIA), and cerebral infarction without residual deficits; I25.2 Old myocardial infarction; Z90.49 Acquired absence of other specified parts of digestive tract; Z95.5 Presence of coronary angioplasty implant and graft; Z89.412 Acquired absence of left great toe; Z89.432 Acquired absence of left foot; Z80.0 Family history of malignant neoplasm of digestive organs; Z82.49 Family history of ischemic heart disease and other diseases of the circulatory system; Z79.899 Other long term (current) drug therapy

== ENCOUNTER 2018-01-20 14:17 | Inpatient (IN) | payer OTHER, MEDICAID ==
[~2018-01-20] VITALS: Ht 182.8 cm; Wt 82.8 kg
--- NOTE | ~2018-01-20 | PROC NOTE ---
[place], [place] PROCEDURE NOTE NAME: DEBORAH SANTACRUZ UNIT #: [id number] ROOM: [place] [address] DOCTOR: ROME RANDALL DO BIRTHDATE: [birth year] DOS: 01/24/2018 PROCEDURE: Lumbar puncture. INDICATION: Altered mental status, fever with unknown source. Head CT performed earlier today, was unremarkable for warning signs of herniation. PROCEDURE IN DETAIL: Informed consent was obtained from patient's power of attorney lawyer verbally over the phone and confirmed by 2 nurses given the patient's altered mental status and inability to cooperate. Conscious sedation was utilized, 250 mg of ketamine was injected. The patient was monitored hemodynamically and electrocardiographically throughout the procedure and placed on nonrebreather oxygen. Area was prepped and draped in usual sterile fashion using iliac crest as landmarks and lumbar puncture needle. The patient was anesthetized with 1% lidocaine using usual landmarks. The appropriate interspinous space was identified. Needle was advanced until clear fluid was obtained. 4 mL of clear fluid was collected in 4 tubes, 1 mL per tube. Labs ordered by Dr. Montalvo. Patient tolerated the procedure well and was monitored for the duration of the ketamine injection and remained stable throughout. ROME RANDALL DO CM:PROCNOTE:PROCEDURE NOTE 0122 0159 ROME RANDALL DO
--- NOTE | ~2018-01-20 | PR ---
[place], [place] PROGRESS NOTE NAME: DEBORAH SANTACRUZ UNIT #: [id number] ROOM: [place] [address] DOCTOR: PAM ALVARADO MD BIRTHDATE: [birth year] DOS: 01/23/2018 SUBJECTIVE: He is in 4 point restraints, agitated. He has garbled speech. Complexion is fine. OBJECTIVE: VITAL SIGNS: Temperature is normal, pulse is 96, blood pressure 104/74. LUNGS: A few crackles in both lungs. IMPRESSION: 1. This patient has acute confusional state, reason has not been determined. 2. History of atrial fibrillation, but remains in normal sinus rhythm. 3. History of coronary artery disease. This is not an issue at this time. PAM ALVARADO MD CM:PNTRANS 1305 1936 PAM ALVARADO MD 02/09/18 0902 interface
--- NOTE | ~2018-01-20 | PR ---
[place], [place] PROGRESS NOTE NAME: [id number] UNIT #: [id number] ROOM: [place] [address] DOCTOR: PAM ALVARADO MD BIRTHDATE: [birth year] DOS: 01/24/2018 SUBJECTIVE: He is less agitated. He is not able to answer any questions. He is still in 4-point restraints. He is just looking around aimlessly. When I asked him if he can see me, he was looking away from me and he said sure. I think there is probably some problem with his vision. He is not diaphoretic. Complexion is fine. OBJECTIVE: VITAL SIGNS: Pulse is regular at 88 beats per minute, blood pressure 158/72. NECK: JVP is difficult to assess. CARDIAC: Auscultation with no murmurs. LUNGS: Breath sounds are diminished and he has crackles, more so on the left side. EXTREMITIES: No edema in the lower extremities. Feet are warm. LABORATORY DATA: Monitor shows normal sinus rhythm with heart rate in the 90s. IMPRESSION: 1. This patient was admitted with acute confusional state, reason is not clear. He is still disoriented and is not following any instructions. 2. History of atrial fibrillation/flutter and supraventricular tachycardia, but now he is in normal sinus rhythm. 3. Coronary artery disease, status post stenting of the right coronary artery in the remote past. This is not causing any problems at this time. 4. No new recommendations. PAM ALVARADO MD CM:PNTRANS 1138 180 PAM ALVARADO MD 01/24/18 1758 interface
--- NOTE | ~2018-01-20 | PR ---
[place], [place] PROGRESS NOTE NAME: DEBORAH SANTACRUZ UNIT #: [id number] ROOM: [place] [address] DOCTOR: PAM ALVARADO MD BIRTHDATE: [birth year] DOS: 01/25/2018 He remains confused and short of breath. He is not able to talk much. Blood cultures were positive for Streptococci and the possibility of endocarditis was entertained and a GABRIELLE was requested. After getting consent from relative, the GABRIELLE procedure was performed. Anesthesia was provided by Anesthesiology service. No complications occurred from the procedure. LV ejection fraction was 65% with normal wall motion. Right ventricle was of normal size with normal systolic function. There was mild tricuspid regurgitation, mild aortic incompetence, and trace mitral regurgitation. There was no evidence of endocarditis. Trace pulmonic incompetence was also noted. There was no thrombus or spontaneous echo contrast in the left atrium or the left atrial appendage. The findings were discussed with Dr. Zeus Costello. PAM ALVARADO MD CM:PNTRANS 1050 1125 PAM ALVARADO MD 02/09/18 0856 interface
--- NOTE | ~2018-01-20 | CON ---
[place], [place] REPORT OF CONSULTATION NAME: DEBORAH SANTACRUZ UNIT #: [id number] ROOM: [place] [address] DOCTOR: PAM ALVARADO MD BIRTHDATE: [birth year] DOS: HISTORY OF PRESENT ILLNESS: I have been seeing this patient numerous this year. He was seen by me on the of this month and was discharged home, only to come back to the ER after a so-called fall. At this time, he was apparently hypotensive and had been very confused, disoriented. Speech was much worse than usually is and no obvious injuries were identified. He has had atrial fibrillation, atrial flutter and SVT, has coronary artery disease as described in my previous consult. MEDICATIONS: Reviewed. PHYSICAL EXAMINATION: GENERAL: The patient is totally out of it. He is agitated, restless and is in full restraints. Complexion is fine. His face is very large, but he is not cyanotic. He is tachypneic. VITAL SIGNS: Temperature is normal, pulse is regular at 96 beats per minute, blood pressure 100/50. RESPIRATORY: Breath sounds are diminished with adventitious sounds, but no edema in lower extremities. DIAGNOSTIC STUDIES: The monitor shows normal sinus rhythm with some ectopy. IMPRESSION: 1. This patient is in sinus rhythm now. 2. Coronary artery disease is not an issue. 3. Acute confusional state is present and reason is not clear, cerebrovascular accident is a possibility or drugs may be involved. RECOMMENDATIONS: No specific recommendations are offered at this time. I thank you for this consult. PAM ALVARADO MD CM:CONSTR:REPORT OF CONSULTATION 1304 02/09/18 0858 interface
--- NOTE | ~2018-01-20 | CON ---
[place], [place] REPORT OF CONSULTATION NAME: [facility]CRUZ [id number] UNIT #: [id number] ROOM: [place] [address] DOCTOR: PAM ALVARADO MD BIRTHDATE: [birth year] DOS: 01/21/2018 HISTORY OF PRESENT ILLNESS: This is a 67-year-old -[place] man with a history of extreme obesity, coronary artery disease. He had stents deployed in the right coronary artery a few years ago 2015. Stents were found to be patent and LV systolic function is normal. Recently, he had developed atrial flutter and has remained in sinus rhythm. He also has an SVT that has recorded rate of about 180 beats per minute. This is different from atrial flutter. He has diabetes mellitus type 2, COPD, gastric ulcers, hypothyroidism and cocaine addict. He lives at home. He has been in this hospital almost on a weekly basis for the last few years other the facilities from where he has left against medical advice and signed out from many facilities. He apparently fell out of his chair and hit his head. He is confused now. He does not know what happened, why he came to the hospital, when he left this hospital, which was just a couple of days ago. His medications were reviewed and have pretty much remained unchanged for quite some time. PHYSICAL EXAMINATION: GENERAL: The patient, who is extremely obese. Speech is much more slurred than previously. He is confused and disoriented. Complexion is fine. VITAL SIGNS: Pulse is 64, blood pressure 159/69. NECK: No bruit in the neck. HEART: No murmurs are present. EXTREMITIES: He has no edema in the lower extremity. RESPIRATORY: Breath sounds are diminished because of obesity and no adventitious sounds were present. DIAGNOSTIC DATA: Monitor shows normal sinus rhythm at a good rate. LABORATORY DATA: BUN 27, creatinine 1.52, glucose 84 mg/dL, potassium 4.7. Hemoglobin 9.6 grams. IMPRESSION: This patient had a fall, probably being because of being off balance. He is so confused now, disoriented. I do not suspect any acute cardiac problem, although SVT or atrial fibrillation and flutter of very short duration could have caused these symptoms, but I doubt this very much. My strongest recommendation would be to have him evaluated by renal social worker and he needs to be placed in an institution from where he cannot leave. I thank for this consult. [place], [place] REPORT OF CONSULTATION NAME: DEBORAH SANTACRUZ UNIT #: [id number] ROOM: [place] [address] DOCTOR: PAM ALVARADO MD BIRTHDATE: [birth year] PAM ALVARADO MD CM:CONSTR:REPORT OF CONSULTATION 1058 02/09/18 0900 interface
[~2018-01-20 14:17] MED LIST changes: +VITAMIN D31000 UNI1 PO
[2018-01-20 14:28] VITALS: BP 107/70
[2018-01-20 15:38] VITALS: BP 122/74
[2018-01-20 15:56] LABS: BASO % 0.3 % (0.0-1.0); EOS # 0.1 10*3/uL (0.0-0.4); HEMATOCRIT 29.3 % (42.0-52.0); HEMOGLOBIN 9.4 g/dl (14.0-18.0); LYMPH # 1.5 10*3/uL (1.3-4.4); LYMPH % 25.2 % (27.0-41.0); MEAN CELL VOLUME 92.4 fl (80.0-94.0); MEAN CORPUSCULAR HGB 29.7 pg (27.0-31.0); MEAN CORPUSCULAR HGB CONC 32.1 g/dl (33.0-37.0); MEAN PLATELET VOLUME 10.5 fl (9.6-12.3); MONO # 0.6 10*3/uL (0.1-1.0); MONO % 9.5 % (3.0-9.0); NEUT # 3.8 10*3/uL (2.3-7.9); NEUT % 62.2 % (47.0-73.0); PLATELET COUNT AUTOMATED 169 10*3/uL (130-400); RED BLOOD COUNT 3.17 10*6/uL (4.50-5.90); RED CELL DISTRI WIDTH 15.5 % (0-14.5); WHITE BLOOD COUNT 6.1 10*3/uL (4.8-10.8)
[2018-01-20 16:08] LABS: CREATININE 1.61 mg/dL (0.70-1.30); POTASSIUM 4.4 mmol/L (3.5-5.1)
[2018-01-20 16:21] VITALS: BP 126/60
[2018-01-20 17:38] VITALS: BP 110/54
[2018-01-20 20:00] VITALS: BP 116/61
[2018-01-21] VITALS: BP 158/70
[2018-01-21 07:19] LABS: BASO % 0.5 % (0.0-1.0); EOS # 0.1 10*3/uL (0.0-0.4); EOS % 1.8 % (1.0-4.0); HEMATOCRIT 30.2 % (42.0-52.0); HEMOGLOBIN 9.6 g/dl (14.0-18.0); LYMPH # 2.1 10*3/uL (1.3-4.4); LYMPH % 31.9 % (27.0-41.0); MEAN CELL VOLUME 93.2 fl (80.0-94.0); MEAN CORPUSCULAR HGB 29.6 pg (27.0-31.0); MEAN CORPUSCULAR HGB CONC 31.8 g/dl (33.0-37.0); MEAN PLATELET VOLUME 11.1 fl (9.6-12.3); MONO # 0.7 10*3/uL (0.1-1.0); MONO % 10.5 % (3.0-9.0); NEUT # 3.6 10*3/uL (2.3-7.9); NEUT % 54.7 % (47.0-73.0); NUCLEATED RED BLOOD CELL 0.3 % (0.0-0.0); PLATELET COUNT AUTOMATED 195 10*3/uL (130-400); RED BLOOD COUNT 3.24 10*6/uL (4.50-5.90); RED CELL DISTRI WIDTH 15.4 % (0-14.5); WHITE BLOOD COUNT 6.6 10*3/uL (4.8-10.8)
[2018-01-21 07:36] LABS: CREATININE 1.52 mg/dL (0.70-1.30); PHOSPHOROUS 3.8 mg/dL (2.5-4.9); POTASSIUM 4.3 mmol/L (3.5-5.1)
[2018-01-21 08:00] VITALS: BP 159/69
[2018-01-21 12:00] VITALS: BP 109/60
[2018-01-21 16:00] VITALS: BP 142/63
[2018-01-21 20:00] VITALS: BP 134/63
[2018-01-22] VITALS: BP 145/81
[2018-01-22 04:00] VITALS: BP 132/76
[2018-01-22 07:03] LABS: CREATININE 2.16 mg/dL (0.70-1.30)
[2018-01-22 08:00] VITALS: BP 90/50
[2018-01-22 08:02] LABS: BASO % 0.5 % (0.0-1.0); EOS # 0.2 10*3/uL (0.0-0.4); EOS % 1.9 % (1.0-4.0); HEMATOCRIT 32.2 % (42.0-52.0); HEMOGLOBIN 10.3 g/dl (14.0-18.0); LYMPH # 2.4 10*3/uL (1.3-4.4); LYMPH % 28.3 % (27.0-41.0); MEAN CELL VOLUME 94.4 fl (80.0-94.0); MEAN CORPUSCULAR HGB 30.2 pg (27.0-31.0); MEAN PLATELET VOLUME 11.5 fl (9.6-12.3); MONO # 0.7 10*3/uL (0.1-1.0); MONO % 7.8 % (3.0-9.0); NEUT # 5.1 10*3/uL (2.3-7.9); NEUT % 60.5 % (47.0-73.0); NUCLEATED RED BLOOD CELL 0.4 % (0.0-0.0); PLATELET COUNT AUTOMATED 207 10*3/uL (130-400); RED BLOOD COUNT 3.41 10*6/uL (4.50-5.90); RED CELL DISTRI WIDTH 15.6 % (0-14.5); WHITE BLOOD COUNT 8.3 10*3/uL (4.8-10.8)
[2018-01-22 08:06] LABS: ABG BASE EXCESS -2.4 mmol/L (-2.0-2.0); ABG HCO3 26.2 mmol/l (22-26); ABG O2 SATURATION 39.8 % (95-97); ARTERIAL BLOOD GAS PCO2 69.4 mmHg (35-45)
[2018-01-22 08:09] LABS: ARTERIAL BLOOD GAS PH 7.195 (7.35-7.45)
[2018-01-22 08:11] LABS: ARTERIAL BLOOD GAS PO2 26.6 mmHg (80-90)
[2018-01-22 08:27] LABS: ALBUMIN 2.6 gm/dl (3.1-4.5); ALKALINE PHOSPHATASE 94 U/L (45-117); BUN 30 mg/dl (7-24); CHLORIDE 102 mmol/L (98-107); CREATININE 2.17 mg/dL (0.70-1.30); PHOSPHOROUS 4.5 mg/dL (2.5-4.9); POTASSIUM 5.3 mmol/L (3.5-5.1); SGOT/AST 17 IU/L (3-35); SGPT/ALT 16 U/L (12-78); SODIUM 135 mmol/L (136-145); TOTAL PROTEIN 6.3 gm/dL (6.4-8.2)
[2018-01-22 08:35] LABS: TROPONIN I < 0.015 ng/ml (<0.045)
[2018-01-22 10:51] LABS: URINE AMPHETAMINES < 1000 (1000ng/ml); URINE BARBITURATES < 200 (200ng/ml); URINE BENZODIAZEPINES < 200 (200ng/ml); URINE CANNABINOIDS (THC) < 50 (50ng/ml); URINE COCAINE < 300 (300ng/ml); URINE METHADONE < 300 (300ng/ml); URINE OPIATES > 300 (300ng/ml)
[2018-01-22 10:53] LABS: BILIRUBIN NEGATIVE (NEGATIVE); BLOOD NEGATIVE (NEGATIVE); CLARITY CLEAR (CLEAR); COLOR YELLOW (YELLOW); GLUCOSE NEGATIVE (NEGATIVE); KETONE NEGATIVE (NEGATIVE); LEUKO ESTERASE NEGATIVE (NEGATIVE); NITRITE NEGATIVE (NEGATIVE); SPECIFIC GRAVITY 1.025 (1.005-1.030); UROBILINOGEN 0.2 E.U./dl (0.2-1.0)
[2018-01-22 10:54] LABS: URINE PHENCYCLIDINE < 25 (25ng/ml)
[2018-01-22 10:55] LABS: ABG HCO3 20.1 mmol/l (22-26); ABG O2 SATURATION 97.9 % (95-97); ARTERIAL BLOOD GAS PCO2 46.6 mmHg (35-45); ARTERIAL BLOOD GAS PH 7.256 (7.35-7.45)
[2018-01-22 11:03] LABS: ABG BASE EXCESS -6.2 mmol/L (-2.0-2.0)
[2018-01-22 12:00] VITALS: BP 92/40
[2018-01-22 12:20] LABS: BACTERIA TRACE; HYALINE CAST TNTC
[2018-01-22 16:00] VITALS: BP 100/50
[2018-01-22 20:00] VITALS: BP 135/57
[2018-01-23] VITALS: BP 113/35
[2018-01-23 04:00] VITALS: BP 137/71
[2018-01-23 06:01] LABS: BASO % 0.4 % (0.0-1.0); EOS # 0.1 10*3/uL (0.0-0.4); EOS % 1.4 % (1.0-4.0); HEMATOCRIT 27.8 % (42.0-52.0); HEMOGLOBIN 8.9 g/dl (14.0-18.0); LYMPH # 1.2 10*3/uL (1.3-4.4); LYMPH % 17.7 % (27.0-41.0); MEAN CELL VOLUME 93.6 fl (80.0-94.0); MONO # 0.5 10*3/uL (0.1-1.0); MONO % 7.8 % (3.0-9.0); NEUT % 72.3 % (47.0-73.0); RED BLOOD COUNT 2.97 10*6/uL (4.50-5.90); RED CELL DISTRI WIDTH 15.5 % (0-14.5); WHITE BLOOD COUNT 6.9 10*3/uL (4.8-10.8)
[2018-01-23 06:02] LABS: PLATELET COUNT AUTOMATED 286 10*3/uL (130-400)
[2018-01-23 08:00] VITALS: BP 114/63
[2018-01-23 09:04] LABS: ALBUMIN 2.6 gm/dl (3.1-4.5); CREATININE 2.16 mg/dL (0.70-1.30); PHOSPHOROUS 3.7 mg/dL (2.5-4.9); POTASSIUM 4.6 mmol/L (3.5-5.1); TOTAL PROTEIN 6.1 gm/dL (6.4-8.2)
[2018-01-23 12:00] VITALS: BP 101/34
[2018-01-23 16:00] VITALS: BP 133/61; BP 95/39
[2018-01-23 20:00] VITALS: BP 151/71
[2018-01-24] VITALS: BP 118/56
[2018-01-24 04:00] VITALS: BP 149/77
[2018-01-24 05:36] LABS: CHLORIDE 107 mmol/L (98-107); CREATININE 1.39 mg/dL (0.70-1.30); PHOSPHOROUS 2.7 mg/dL (2.5-4.9); POTASSIUM 4.2 mmol/L (3.5-5.1); SODIUM 139 mmol/L (136-145)
[2018-01-24 05:49] LABS: BASO % 0.2 % (0.0-1.0); EOS # 0.1 10*3/uL (0.0-0.4); EOS % 1.9 % (1.0-4.0); HEMATOCRIT 23.2 % (42.0-52.0); HEMOGLOBIN 7.3 g/dl (14.0-18.0); LYMPH # 1.3 10*3/uL (1.3-4.4); LYMPH % 20.7 % (27.0-41.0); MEAN CELL VOLUME 93.9 fl (80.0-94.0); MEAN CORPUSCULAR HGB 29.6 pg (27.0-31.0); MEAN CORPUSCULAR HGB CONC 31.5 g/dl (33.0-37.0); MONO # 0.6 10*3/uL (0.1-1.0); MONO % 9.5 % (3.0-9.0); NEUT # 4.3 10*3/uL (2.3-7.9); NEUT % 67.1 % (47.0-73.0); RED BLOOD COUNT 2.47 10*6/uL (4.50-5.90); RED CELL DISTRI WIDTH 15.3 % (0-14.5); WHITE BLOOD COUNT 6.3 10*3/uL (4.8-10.8)
[2018-01-24 05:52] LABS: BUN 18 mg/dl (7-24)
[2018-01-24 06:01] LABS: PLATELET COUNT AUTOMATED 184 10*3/uL (130-400)
[2018-01-24 08:00] VITALS: BP 158/72
[2018-01-24 12:00] VITALS: BP 104/54
[2018-01-24 16:00] VITALS: BP 122/59
[2018-01-24 19:22] LABS: ABG BASE EXCESS -3.1 mmol/L (-2.0-2.0); ABG HCO3 23.2 mmol/l (22-26); ABG O2 SATURATION 96.7 % (95-97); ARTERIAL BLOOD GAS PCO2 50.2 mmHg (35-45); ARTERIAL BLOOD GAS PH 7.282 (7.35-7.45); ARTERIAL BLOOD GAS PO2 92.4 mmHg (80-90)
[2018-01-24 20:00] VITALS: BP 152/79
[2018-01-24 21:25] LABS: ALBUMIN 2.2 gm/dl (3.1-4.5); ALKALINE PHOSPHATASE 85 U/L (45-117); BUN 13 mg/dl (7-24); CHLORIDE 100 mmol/L (98-107); CREATININE 1.26 mg/dL (0.70-1.30); POTASSIUM 4.1 mmol/L (3.5-5.1); SGOT/AST 16 IU/L (3-35); SGPT/ALT 12 U/L (12-78); SODIUM 133 mmol/L (136-145); TOTAL PROTEIN 5.7 gm/dL (6.4-8.2)
[2018-01-24 21:28] LABS: BASO % 0.3 % (0.0-1.0); EOS # 0.1 10*3/uL (0.0-0.4); EOS % 1.9 % (1.0-4.0); HEMATOCRIT 26.7 % (42.0-52.0); HEMOGLOBIN 8.3 g/dl (14.0-18.0); LYMPH # 1.4 10*3/uL (1.3-4.4); LYMPH % 18.1 % (27.0-41.0); MEAN CELL VOLUME 94.3 fl (80.0-94.0); MEAN CORPUSCULAR HGB 29.3 pg (27.0-31.0); MEAN CORPUSCULAR HGB CONC 31.1 g/dl (33.0-37.0); MEAN PLATELET VOLUME 10.5 fl (9.6-12.3); MONO # 0.7 10*3/uL (0.1-1.0); MONO % 9.3 % (3.0-9.0); NEUT # 5.3 10*3/uL (2.3-7.9); NEUT % 69.9 % (47.0-73.0); PLATELET COUNT AUTOMATED 213 10*3/uL (130-400); RED BLOOD COUNT 2.83 10*6/uL (4.50-5.90); RED CELL DISTRI WIDTH 15.4 % (0-14.5); WHITE BLOOD COUNT 7.5 10*3/uL (4.8-10.8)
[2018-01-25] VITALS: BP 152/79
[2018-01-25 02:01] LABS: CSF RBC < 1000 /uL; CSF WBC 8 /uL
[2018-01-25 02:02] LABS: CSF GLUCOSE 64 mg/dL (40-70)
[2018-01-25 02:03] LABS: CSF TOTAL PROTEIN 38.8 mg/dL (15-45)
[2018-01-25 02:15] LABS: CLARITY CLEAR; COLOR COLORLESS
[2018-01-25 04:00] VITALS: BP 117/48
[2018-01-25 04:50] LABS: CSF LYMPHOCYTES 54 % (40-80); CSF MONOCYTES 46 % (15-45)
[2018-01-25 05:28] LABS: ALBUMIN 2.3 gm/dl (3.1-4.5); ALKALINE PHOSPHATASE 87 U/L (45-117); BUN 13 mg/dl (7-24); CHLORIDE 101 mmol/L (98-107); CREATININE 1.19 mg/dL (0.70-1.30); PHOSPHOROUS 3.8 mg/dL (2.5-4.9); POTASSIUM 4.4 mmol/L (3.5-5.1); SGOT/AST 14 IU/L (3-35); SGPT/ALT 16 U/L (12-78); SODIUM 135 mmol/L (136-145); TOTAL PROTEIN 5.6 gm/dL (6.4-8.2)
[2018-01-25 06:18] LABS: BASO % 0.3 % (0.0-1.0); EOS # 0.2 10*3/uL (0.0-0.4); EOS % 1.8 % (1.0-4.0); HEMATOCRIT 26.2 % (42.0-52.0); HEMOGLOBIN 8.2 g/dl (14.0-18.0); LYMPH # 0.9 10*3/uL (1.3-4.4); LYMPH % 9.6 % (27.0-41.0); MEAN CELL VOLUME 94.6 fl (80.0-94.0); MEAN CORPUSCULAR HGB 29.6 pg (27.0-31.0); MEAN CORPUSCULAR HGB CONC 31.3 g/dl (33.0-37.0); MEAN PLATELET VOLUME 10.7 fl (9.6-12.3); MONO # 0.9 10*3/uL (0.1-1.0); MONO % 9.8 % (3.0-9.0); NEUT # 7.1 10*3/uL (2.3-7.9); NEUT % 77.7 % (47.0-73.0); PLATELET COUNT AUTOMATED 218 10*3/uL (130-400); RED BLOOD COUNT 2.77 10*6/uL (4.50-5.90); RED CELL DISTRI WIDTH 15.3 % (0-14.5); WHITE BLOOD COUNT 9.1 10*3/uL (4.8-10.8)
[2018-01-25 08:00] VITALS: BP 111/46
[2018-01-25 12:00] VITALS: BP 120/60
[2018-01-25 16:00] VITALS: BP 130/69
[2018-01-25] MEDS ORDERED: SEPTDS PO (16:52)
[2018-01-25] MEDS ORDERED: MIDODRINE HCL5 M1 PO (16:52)
[2018-01-25 18:25] VITALS: BP 126/84
[2018-01-26 08:10] LABS: HEPATITIS B SURFACE AG Negative (Negative); HEPATITIS C VIRUS ANTIBODY 0.1 s/co (0.0-0.9); HIV 1+2 AB + HIV1 P24 AG Non Reactive (Non Reactive)
[2018-01-29 20:09] LABS: HSV-2 DNA Negative (Negative)
== END 2018-01-25 18:25 | disposition short-term general hospital (02) | DRG 682 ==
LOC: ED 14:17 → EDHOLD 16:53 → ICCU 16:53 → 5E 16:53 → ICCU 01-22 07:06
PROVIDERS: Emergency Medicine; Family Medicine; Hospitalist; Internal Medicine; Internal Medicine Nephrology; Student in an Organized Health Care Education/Training Program
PROC: 02HV33Z Insertion of Infusion Device into Superior Vena Cava, Percutaneous Approach (ICD-10-PCS; 2018-01-23)
PROC: B548ZZA Ultrasonography of Superior Vena Cava, Guidance (ICD-10-PCS; 2018-01-23)
PROC: 009U3ZX Drainage of Spinal Canal, Percutaneous Approach, Diagnostic (ICD-10-PCS; principal; 2018-01-25)
DX: N17.9 Acute kidney failure, unspecified (principal); G93.41 Metabolic encephalopathy; E11.22 Type 2 diabetes mellitus with diabetic chronic kidney disease; I13.0 Hypertensive heart and chronic kidney disease with heart failure and stage 1 through stage 4 chronic kidney disease, or unspecified chronic kidney disease; E11.40 Type 2 diabetes mellitus with diabetic neuropathy, unspecified; I48.91 Unspecified atrial fibrillation; I50.32 Chronic diastolic (congestive) heart failure; R65.10 Systemic inflammatory response syndrome (SIRS) of non-infectious origin without acute organ dysfunction; I48.92 Unspecified atrial flutter; E11.649 Type 2 diabetes mellitus with hypoglycemia without coma; E87.1 Hypo-osmolality and hyponatremia; I95.1 Orthostatic hypotension; E11.65 Type 2 diabetes mellitus with hyperglycemia; J44.9 Chronic obstructive pulmonary disease, unspecified; R29.6 Repeated falls; D72.810 Lymphocytopenia; K21.9 Gastro-esophageal reflux disease without esophagitis; M1A.9XX0 Chronic gout, unspecified, without tophus (tophi); M51.35 Other intervertebral disc degeneration, thoracolumbar region; F32.9 Major depressive disorder, single episode, unspecified; N18.3 Chronic kidney disease, stage 3 (moderate); K29.50 Unspecified chronic gastritis without bleeding; I25.10 Atherosclerotic heart disease of native coronary artery without angina pectoris; F41.1 Generalized anxiety disorder; G89.29 Other chronic pain; E66.9 Obesity, unspecified; G40.909 Epilepsy, unspecified, not intractable, without status epilepticus; Z96.641 Presence of right artificial hip joint; E03.9 Hypothyroidism, unspecified; N40.1 Benign prostatic hyperplasia with lower urinary tract symptoms; H66.91 Otitis media, unspecified, right ear; L53.8 Other specified erythematous conditions; M31.6 Other giant cell arteritis; D64.9 Anemia, unspecified; F14.10 Cocaine abuse, uncomplicated; E78.5 Hyperlipidemia, unspecified; R33.9 Retention of urine, unspecified; E87.5 Hyperkalemia; E83.42 Hypomagnesemia; Z88.1 Allergy status to other antibiotic agents; Z79.4 Long term (current) use of insulin; Z79.899 Other long term (current) drug therapy; Z86.73 Personal history of transient ischemic attack (TIA), and cerebral infarction without residual deficits; Z95.5 Presence of coronary angioplasty implant and graft; Z90.49 Acquired absence of other specified parts of digestive tract; Z89.412 Acquired absence of left great toe; Z87.891 Personal history of nicotine dependence; Z82.49 Family history of ischemic heart disease and other diseases of the circulatory system; Z80.0 Family history of malignant neoplasm of digestive organs; Z82.3 Family history of stroke; Y93.89 Activity, other specified; Y92.098 Other place in other non-institutional residence as the place of occurrence of the external cause; Y99.8 Other external cause status; Z78.1 Physical restraint status; W01.198A Fall on same level from slipping, tripping and stumbling with subsequent striking against other object, initial encounter

== ENCOUNTER 2018-02-11 16:00 | Inpatient (IN) | payer OTHER, MEDICAID ==
[~2018-02-11] VITALS: Ht 182.9 cm; Wt 99.3 kg
[~2018-02-11 16:00] MED LIST changes: +MIDODRINE HCL5 M1 PO; +SEPTDS PO
[2018-02-11 16:01] VITALS: BP 144/92
[2018-02-11 17:07] LABS: BASO # 0.1 10*3/uL (0.0-0.1); BASO % 0.6 % (0.0-1.0); EOS # 0.6 10*3/uL (0.0-0.4); EOS % 5.9 % (1.0-4.0); HEMATOCRIT 28.1 % (42.0-52.0); HEMOGLOBIN 8.8 g/dl (14.0-18.0); LYMPH # 2.9 10*3/uL (1.3-4.4); LYMPH % 29.2 % (27.0-41.0); MEAN CELL VOLUME 90.6 fl (80.0-94.0); MEAN CORPUSCULAR HGB 28.4 pg (27.0-31.0); MEAN CORPUSCULAR HGB CONC 31.3 g/dl (33.0-37.0); MEAN PLATELET VOLUME 10.4 fl (9.6-12.3); MONO # 0.6 10*3/uL (0.1-1.0); NEUT # 5.7 10*3/uL (2.3-7.9); NEUT % 57.9 % (47.0-73.0); PLATELET COUNT AUTOMATED 350 10*3/uL (130-400); WHITE BLOOD COUNT 9.9 10*3/uL (4.8-10.8)
[2018-02-11 17:19] LABS: INTERNATIONAL NORM RATIO 1.2 (2.0-3.5)
[2018-02-11 17:24] LABS: ALBUMIN 2.6 gm/dl (3.1-4.5); ALKALINE PHOSPHATASE 103 U/L (45-117); BUN 26 mg/dl (7-24); CHLORIDE 103 mmol/L (98-107); CREATININE 3.08 mg/dL (0.70-1.30); POTASSIUM 4.1 mmol/L (3.5-5.1); SGOT/AST 17 IU/L (3-35); SGPT/ALT 20 U/L (12-78); SODIUM 137 mmol/L (136-145); TOTAL PROTEIN 6.8 gm/dL (6.4-8.2)
[2018-02-11 17:26] LABS: TROPONIN I < 0.015 ng/ml (<0.045)
[2018-02-11 18:50] VITALS: BP 117/49
[2018-02-11 20:00] VITALS: BP 94/49
[2018-02-12] VITALS: BP 111/46
[2018-02-12 06:38] LABS: BASO # 0.1 10*3/uL (0.0-0.1); BASO % 0.7 % (0.0-1.0); EOS # 0.6 10*3/uL (0.0-0.4); HEMATOCRIT 26.4 % (42.0-52.0); HEMOGLOBIN 8.2 g/dl (14.0-18.0); LYMPH # 2.3 10*3/uL (1.3-4.4); LYMPH % 31.6 % (27.0-41.0); MEAN CORPUSCULAR HGB 28.3 pg (27.0-31.0); MEAN CORPUSCULAR HGB CONC 31.1 g/dl (33.0-37.0); MEAN PLATELET VOLUME 10.4 fl (9.6-12.3); MONO # 0.6 10*3/uL (0.1-1.0); MONO % 8.1 % (3.0-9.0); NEUT # 3.7 10*3/uL (2.3-7.9); NEUT % 51.2 % (47.0-73.0); PLATELET COUNT AUTOMATED 296 10*3/uL (130-400); RED CELL DISTRI WIDTH 14.8 % (0-14.5); WHITE BLOOD COUNT 7.2 10*3/uL (4.8-10.8)
[2018-02-12 07:13] LABS: ALBUMIN 2.5 gm/dl (3.1-4.5); CREATININE 2.58 mg/dL (0.70-1.30); PHOSPHOROUS 5.8 mg/dL (2.5-4.9); TOTAL PROTEIN 6.1 gm/dL (6.4-8.2)
[2018-02-12 07:18] LABS: THYROID STIM HORMONE (HS) 1.27 uIU/ml (0.358-4.75)
[2018-02-12 08:00] VITALS: BP 124/59
[2018-02-12] MEDS ORDERED: FLECAINIDE ACE100 M1 PO (09:36)
[2018-02-12] MEDS ORDERED: HUMALOG100 UNIT/2 SQ (09:39)
[2018-02-12] MEDS ORDERED: PROTONIX40 MG PO (09:40)
[2018-02-12] MEDS ORDERED: RISPERDAL0.5 MG PO (09:41)
[2018-02-12] MEDS ORDERED: LEVEMIR100 UNIT/1 IV (09:43)
[2018-02-12] MEDS ORDERED: TOPROL XL25 MG PO (09:44)
[2018-02-12] MEDS ORDERED: Synthroid,Lev100 MCG PO (09:45)
[2018-02-12 12:00] VITALS: BP 120/40
[2018-02-12 16:00] VITALS: BP 125/43
[2018-02-12 20:00] VITALS: BP 128/58
[2018-02-13] VITALS: BP 145/54
[2018-02-13 07:48] LABS: BASO % 0.6 % (0.0-1.0); EOS # 0.5 10*3/uL (0.0-0.4); EOS % 7.7 % (1.0-4.0); HEMATOCRIT 26.3 % (42.0-52.0); MEAN CELL VOLUME 93.3 fl (80.0-94.0); MEAN CORPUSCULAR HGB 28.4 pg (27.0-31.0); MEAN CORPUSCULAR HGB CONC 30.4 g/dl (33.0-37.0); MEAN PLATELET VOLUME 10.9 fl (9.6-12.3); MONO # 0.4 10*3/uL (0.1-1.0); MONO % 6.5 % (3.0-9.0); NEUT # 3.6 10*3/uL (2.3-7.9); NEUT % 54.9 % (47.0-73.0); PLATELET COUNT AUTOMATED 274 10*3/uL (130-400); RED BLOOD COUNT 2.82 10*6/uL (4.50-5.90); RED CELL DISTRI WIDTH 15.1 % (0-14.5); WHITE BLOOD COUNT 6.6 10*3/uL (4.8-10.8)
[2018-02-13 08:00] VITALS: BP 147/66
[2018-02-13 08:01] LABS: CREATININE 1.51 mg/dL (0.70-1.30); POTASSIUM 4.3 mmol/L (3.5-5.1)
[2018-02-13 12:00] VITALS: BP 139/55
[2018-02-13 16:00] VITALS: BP 139/67
[2018-02-13 20:00] VITALS: BP 153/52
[2018-02-14] VITALS: BP 143/75
[2018-02-14 06:39] LABS: BASO # 0.1 10*3/uL (0.0-0.1); BASO % 0.8 % (0.0-1.0); EOS # 0.5 10*3/uL (0.0-0.4); EOS % 7.4 % (1.0-4.0); HEMATOCRIT 23.9 % (42.0-52.0); HEMOGLOBIN 7.4 g/dl (14.0-18.0); LYMPH # 2.5 10*3/uL (1.3-4.4); LYMPH % 39.5 % (27.0-41.0); MEAN CELL VOLUME 91.9 fl (80.0-94.0); MEAN CORPUSCULAR HGB 28.5 pg (27.0-31.0); MEAN PLATELET VOLUME 10.7 fl (9.6-12.3); MONO # 0.4 10*3/uL (0.1-1.0); MONO % 7.1 % (3.0-9.0); NEUT # 2.8 10*3/uL (2.3-7.9); NEUT % 44.7 % (47.0-73.0); PLATELET COUNT AUTOMATED 245 10*3/uL (130-400); WHITE BLOOD COUNT 6.2 10*3/uL (4.8-10.8)
[2018-02-14 06:56] LABS: ALBUMIN 2.4 gm/dl (3.1-4.5); BUN 20 mg/dl (7-24); CHLORIDE 113 mmol/L (98-107); POTASSIUM 4.2 mmol/L (3.5-5.1); SODIUM 142 mmol/L (136-145)
[2018-02-14 07:00] LABS: ALKALINE PHOSPHATASE 83 U/L (45-117); CREATININE 1.17 mg/dL (0.70-1.30); SGOT/AST 15 IU/L (3-35); SGPT/ALT 15 U/L (12-78); TOTAL PROTEIN 5.8 gm/dL (6.4-8.2)
[2018-02-14 08:00] VITALS: BP 120/50
[2018-02-14 12:00] VITALS: BP 138/64
[2018-02-14 16:00] VITALS: BP 126/47
[2018-02-14 20:00] VITALS: BP 135/63
[2018-02-15] VITALS: BP 135/66
[2018-02-15 06:42] LABS: BASO % 0.6 % (0.0-1.0); EOS # 0.5 10*3/uL (0.0-0.4); EOS % 9.3 % (1.0-4.0); HEMATOCRIT 25.5 % (42.0-52.0); HEMOGLOBIN 7.9 g/dl (14.0-18.0); LYMPH # 1.9 10*3/uL (1.3-4.4); LYMPH % 37.2 % (27.0-41.0); MEAN CELL VOLUME 91.1 fl (80.0-94.0); MEAN CORPUSCULAR HGB 28.2 pg (27.0-31.0); MEAN PLATELET VOLUME 10.6 fl (9.6-12.3); MONO # 0.4 10*3/uL (0.1-1.0); MONO % 7.6 % (3.0-9.0); NEUT # 2.2 10*3/uL (2.3-7.9); NEUT % 45.1 % (47.0-73.0); PLATELET COUNT AUTOMATED 226 10*3/uL (130-400); RED CELL DISTRI WIDTH 14.8 % (0-14.5)
[2018-02-15 08:00] VITALS: BP 150/90
[2018-02-16] MEDS ORDERED: IMODIUM A-D2 M2 PO (17:53)
[2018-02-16] MEDS ORDERED: ZOFRAN ODT4 MG SL (17:53)
== END 2018-02-15 11:41 | disposition home or self-care (01) | DRG 682 ==
LOC: ED 16:00 → 5E 17:41 → EDHOLD 17:41 → 5E 18:09
PROVIDERS: Emergency Medicine; Internal Medicine
DX: N17.0 Acute kidney failure with tubular necrosis (principal); E43 Unspecified severe protein-calorie malnutrition; E11.42 Type 2 diabetes mellitus with diabetic polyneuropathy; E11.22 Type 2 diabetes mellitus with diabetic chronic kidney disease; D72.1 Eosinophilia; E11.40 Type 2 diabetes mellitus with diabetic neuropathy, unspecified; E11.621 Type 2 diabetes mellitus with foot ulcer; I50.32 Chronic diastolic (congestive) heart failure; F33.9 Major depressive disorder, recurrent, unspecified; I13.0 Hypertensive heart and chronic kidney disease with heart failure and stage 1 through stage 4 chronic kidney disease, or unspecified chronic kidney disease; I95.1 Orthostatic hypotension; B37.2 Candidiasis of skin and nail; E11.65 Type 2 diabetes mellitus with hyperglycemia; D64.9 Anemia, unspecified; G40.909 Epilepsy, unspecified, not intractable, without status epilepticus; L89.620 Pressure ulcer of left heel, unstageable; I25.10 Atherosclerotic heart disease of native coronary artery without angina pectoris; K21.9 Gastro-esophageal reflux disease without esophagitis; L30.4 Erythema intertrigo; N18.3 Chronic kidney disease, stage 3 (moderate); N40.0 Benign prostatic hyperplasia without lower urinary tract symptoms; M1A.9XX0 Chronic gout, unspecified, without tophus (tophi); G89.29 Other chronic pain; F41.1 Generalized anxiety disorder; E03.9 Hypothyroidism, unspecified; E66.9 Obesity, unspecified; Z96.642 Presence of left artificial hip joint; I50.9 Heart failure, unspecified; F17.200 Nicotine dependence, unspecified, uncomplicated; I12.9 Hypertensive chronic kidney disease with stage 1 through stage 4 chronic kidney disease, or unspecified chronic kidney disease; J44.9 Chronic obstructive pulmonary disease, unspecified; K44.9 Diaphragmatic hernia without obstruction or gangrene; Y93.89 Activity, other specified; Y92.89 Other specified places as the place of occurrence of the external cause; Y99.8 Other external cause status; Z88.1 Allergy status to other antibiotic agents; Z88.8 Allergy status to other drugs, medicaments and biological substances; Z79.01 Long term (current) use of anticoagulants; Z79.899 Other long term (current) drug therapy; Z86.73 Personal history of transient ischemic attack (TIA), and cerebral infarction without residual deficits; V89.2XXA Person injured in unspecified motor-vehicle accident, traffic, initial encounter; Z95.818 Presence of other cardiac implants and grafts; Z90.49 Acquired absence of other specified parts of digestive tract; Z89.412 Acquired absence of left great toe; Z72.89 Other problems related to lifestyle; Z80.0 Family history of malignant neoplasm of digestive organs; Z82.3 Family history of stroke; Z83.3 Family history of diabetes mellitus; Z82.49 Family history of ischemic heart disease and other diseases of the circulatory system; Z68.29 Body mass index [BMI] 29.0-29.9, adult

== ENCOUNTER 2018-02-16 14:18 | Emergency (ER) | payer OTHER, MEDICAID ==
[~2018-02-16] VITALS: Wt 98.9 kg
[~2018-02-16 14:18] MED LIST changes: +HUMALOG100 UNIT/2 SQ; +LEVEMIR100 UNIT/1 IV; +TOPROL XL25 MG PO
[2018-02-16 15:04] LABS: BASO # 0.1 10*3/uL (0.0-0.1); BASO % 0.5 % (0.0-1.0); EOS # 0.7 10*3/uL (0.0-0.4); EOS % 7.1 % (1.0-4.0); HEMATOCRIT 25.8 % (42.0-52.0); HEMOGLOBIN 8.1 g/dl (14.0-18.0); LYMPH # 2.6 10*3/uL (1.3-4.4); LYMPH % 28.9 % (27.0-41.0); MEAN CELL VOLUME 90.8 fl (80.0-94.0); MEAN CORPUSCULAR HGB 28.5 pg (27.0-31.0); MEAN CORPUSCULAR HGB CONC 31.4 g/dl (33.0-37.0); MEAN PLATELET VOLUME 10.4 fl (9.6-12.3); MONO # 0.7 10*3/uL (0.1-1.0); MONO % 7.4 % (3.0-9.0); NEUT # 5.1 10*3/uL (2.3-7.9); NEUT % 55.7 % (47.0-73.0); PLATELET COUNT AUTOMATED 238 10*3/uL (130-400); RED BLOOD COUNT 2.84 10*6/uL (4.50-5.90); RED CELL DISTRI WIDTH 15.2 % (0-14.5); WHITE BLOOD COUNT 9.1 10*3/uL (4.8-10.8)
[2018-02-16 15:22] LABS: ALBUMIN 2.5 gm/dl (3.1-4.5); CREATININE 1.45 mg/dL (0.70-1.30); POTASSIUM 4.7 mmol/L (3.5-5.1); TOTAL PROTEIN 6.1 gm/dL (6.4-8.2)
[2018-02-16 17:46] VITALS: BP 119/65
[2018-02-16] MEDS ORDERED: IMODIUM A-D2 M2 PO (17:53)
[2018-02-16] MEDS ORDERED: ZOFRAN ODT4 MG SL (17:53)
== END 2018-02-16 17:54 | disposition home or self-care (01) ==
LOC: ED 14:18
PROVIDERS: Emergency Medicine
DX: K52.9 Noninfective gastroenteritis and colitis, unspecified (principal); E11.22 Type 2 diabetes mellitus with diabetic chronic kidney disease; I12.9 Hypertensive chronic kidney disease with stage 1 through stage 4 chronic kidney disease, or unspecified chronic kidney disease; N18.3 Chronic kidney disease, stage 3 (moderate); N17.9 Acute kidney failure, unspecified; E11.65 Type 2 diabetes mellitus with hyperglycemia; I25.10 Atherosclerotic heart disease of native coronary artery without angina pectoris; I48.92 Unspecified atrial flutter; G89.29 Other chronic pain; J44.9 Chronic obstructive pulmonary disease, unspecified; F32.9 Major depressive disorder, single episode, unspecified; E11.40 Type 2 diabetes mellitus with diabetic neuropathy, unspecified; K21.9 Gastro-esophageal reflux disease without esophagitis; E78.5 Hyperlipidemia, unspecified; G40.909 Epilepsy, unspecified, not intractable, without status epilepticus; E03.9 Hypothyroidism, unspecified; M10.9 Gout, unspecified; I95.9 Hypotension, unspecified; Z86.73 Personal history of transient ischemic attack (TIA), and cerebral infarction without residual deficits; Z88.1 Allergy status to other antibiotic agents; Z88.8 Allergy status to other drugs, medicaments and biological substances; Z79.899 Other long term (current) drug therapy; Z79.4 Long term (current) use of insulin; Z90.49 Acquired absence of other specified parts of digestive tract; Z96.643 Presence of artificial hip joint, bilateral; Z87.891 Personal history of nicotine dependence

== ENCOUNTER 2018-02-19 19:32 | Inpatient (IN) | payer OTHER, MEDICAID ==
[~2018-02-19] VITALS: Ht 182.8 cm; Wt 101.7 kg
--- NOTE | ~2018-02-19 | EKG ---
[place], [place] ELECTROCARDIOGRAM REPORT NAME: DEBORAH SANTACRUZ UNIT #: [id number] ROOM: 526 DOCTOR: PAM ALVARADO MD BIRTHDATE: [birth year] DOS: 02/19/2018 TIME: 2052 hours. FINDINGS: 1. Normal sinus rhythm at 93 beats per minute. 2. An old anterior wall VT is likely. 3. Also consider an old inferior wall VT. 4. An abnormal ECG. 5. No previous tracing is available for comparison. PAM ALVARADO MD CM:EKGRPT:ELECTROCARDIOGRAM REPORT 1646 1833 PAM ALVARADO MD
[~2018-02-19 19:32] MED LIST changes: +IMODIUM A-D2 M2 PO
[2018-02-19 19:39] VITALS: BP 137/57
[2018-02-19 20:46] LABS: BASO % 0.5 % (0.0-1.0); EOS # 0.3 10*3/uL (0.0-0.4); EOS % 4.5 % (1.0-4.0); HEMATOCRIT 25.7 % (42.0-52.0); HEMOGLOBIN 8.1 g/dl (14.0-18.0); LYMPH % 32.3 % (27.0-41.0); MEAN CELL VOLUME 89.9 fl (80.0-94.0); MEAN CORPUSCULAR HGB 28.3 pg (27.0-31.0); MEAN CORPUSCULAR HGB CONC 31.5 g/dl (33.0-37.0); MEAN PLATELET VOLUME 10.4 fl (9.6-12.3); MONO # 0.4 10*3/uL (0.1-1.0); MONO % 6.5 % (3.0-9.0); NEUT # 3.5 10*3/uL (2.3-7.9); PLATELET COUNT AUTOMATED 203 10*3/uL (130-400); RED BLOOD COUNT 2.86 10*6/uL (4.50-5.90); RED CELL DISTRI WIDTH 15.6 % (0-14.5); WHITE BLOOD COUNT 6.2 10*3/uL (4.8-10.8)
[2018-02-19 20:53] VITALS: BP 131/66
[2018-02-19 21:00] LABS: ACT PARTIAL THROMBO TIME 27.7 SECONDS (20.8-31.5); INTERNATIONAL NORM RATIO 1.2 (2.0-3.5)
[2018-02-19 21:02] LABS: ALBUMIN 2.7 gm/dl (3.1-4.5); ALKALINE PHOSPHATASE 94 U/L (45-117); BUN 13 mg/dl (7-24); CHLORIDE 107 mmol/L (98-107); CREATININE 1.34 mg/dL (0.70-1.30); LIPASE 170 U/L (73-393); POTASSIUM 4.2 mmol/L (3.5-5.1); SGOT/AST 16 IU/L (3-35); SGPT/ALT 14 U/L (12-78); SODIUM 141 mmol/L (136-145); TOTAL PROTEIN 6.2 gm/dL (6.4-8.2)
[2018-02-19 21:08] LABS: TROPONIN I < 0.015 ng/ml (<0.045)
[2018-02-19 23:05] VITALS: BP 119/79
[2018-02-20 02:27] LABS: BASO % 0.5 % (0.0-1.0); EOS # 0.4 10*3/uL (0.0-0.4); EOS % 6.3 % (1.0-4.0); HEMATOCRIT 26.1 % (42.0-52.0); HEMOGLOBIN 8.3 g/dl (14.0-18.0); LYMPH # 2.2 10*3/uL (1.3-4.4); LYMPH % 38.6 % (27.0-41.0); MEAN CELL VOLUME 89.7 fl (80.0-94.0); MEAN CORPUSCULAR HGB 28.5 pg (27.0-31.0); MEAN CORPUSCULAR HGB CONC 31.8 g/dl (33.0-37.0); MEAN PLATELET VOLUME 10.4 fl (9.6-12.3); MONO # 0.5 10*3/uL (0.1-1.0); MONO % 8.3 % (3.0-9.0); NEUT # 2.6 10*3/uL (2.3-7.9); NEUT % 46.1 % (47.0-73.0); PLATELET COUNT AUTOMATED 181 10*3/uL (130-400); RED BLOOD COUNT 2.91 10*6/uL (4.50-5.90); RED CELL DISTRI WIDTH 15.6 % (0-14.5); WHITE BLOOD COUNT 5.6 10*3/uL (4.8-10.8)
[2018-02-20 02:45] LABS: ALBUMIN 2.5 gm/dl (3.1-4.5); ALKALINE PHOSPHATASE 92 U/L (45-117); BUN 13 mg/dl (7-24); CHLORIDE 109 mmol/L (98-107); PHOSPHOROUS 3.8 mg/dL (2.5-4.9); POTASSIUM 4.2 mmol/L (3.5-5.1); SGOT/AST 11 IU/L (3-35); SGPT/ALT 13 U/L (12-78); SODIUM 142 mmol/L (136-145); TOTAL PROTEIN 5.9 gm/dL (6.4-8.2)
[2018-02-20 08:00] VITALS: BP 146/96
[2018-02-20 12:00] VITALS: BP 122/62
[2018-02-20 16:14] VITALS: BP 152/74
[2018-02-20 20:50] VITALS: BP 125/48
[2018-02-21] VITALS: BP 116/65
[2018-02-21 08:00] VITALS: BP 134/62
[2018-02-21 12:00] VITALS: BP 117/48
[2018-02-21] MEDS ORDERED: LEVEMIR100 UNIT/1 IV (12:45)
[2018-02-21] MEDS ORDERED: MAGNESIUM OXID400 MG PO (12:45)
== END 2018-02-21 14:00 | disposition home or self-care (01) | DRG 391 ==
LOC: ED 19:32 → EDHOLD 21:43 → 5E 21:58
PROVIDERS: Internal Medicine Nephrology; Physician Assistant
DX: K21.9 Gastro-esophageal reflux disease without esophagitis (principal); E43 Unspecified severe protein-calorie malnutrition; E11.40 Type 2 diabetes mellitus with diabetic neuropathy, unspecified; E11.22 Type 2 diabetes mellitus with diabetic chronic kidney disease; E87.2 Acidosis; D70.9 Neutropenia, unspecified; E87.8 Other disorders of electrolyte and fluid balance, not elsewhere classified; R65.10 Systemic inflammatory response syndrome (SIRS) of non-infectious origin without acute organ dysfunction; I48.92 Unspecified atrial flutter; I50.32 Chronic diastolic (congestive) heart failure; L97.429 Non-pressure chronic ulcer of left heel and midfoot with unspecified severity; I13.0 Hypertensive heart and chronic kidney disease with heart failure and stage 1 through stage 4 chronic kidney disease, or unspecified chronic kidney disease; I25.10 Atherosclerotic heart disease of native coronary artery without angina pectoris; E11.65 Type 2 diabetes mellitus with hyperglycemia; E83.41 Hypermagnesemia; R29.6 Repeated falls; R42 Dizziness and giddiness; R53.1 Weakness; R06.82 Tachypnea, not elsewhere classified; D64.9 Anemia, unspecified; E66.9 Obesity, unspecified; N40.0 Benign prostatic hyperplasia without lower urinary tract symptoms; M10.9 Gout, unspecified; G40.909 Epilepsy, unspecified, not intractable, without status epilepticus; M50.30 Other cervical disc degeneration, unspecified cervical region; G89.29 Other chronic pain; F41.1 Generalized anxiety disorder; F32.9 Major depressive disorder, single episode, unspecified; E03.9 Hypothyroidism, unspecified; E78.5 Hyperlipidemia, unspecified; J44.9 Chronic obstructive pulmonary disease, unspecified; N18.3 Chronic kidney disease, stage 3 (moderate); Z79.4 Long term (current) use of insulin; Z79.899 Other long term (current) drug therapy; Z88.1 Allergy status to other antibiotic agents; Z88.8 Allergy status to other drugs, medicaments and biological substances; Z90.49 Acquired absence of other specified parts of digestive tract; Z82.49 Family history of ischemic heart disease and other diseases of the circulatory system; Z80.9 Family history of malignant neoplasm, unspecified; Z83.3 Family history of diabetes mellitus; Z82.3 Family history of stroke; Z79.82 Long term (current) use of aspirin; Z87.19 Personal history of other diseases of the digestive system; Z89.412 Acquired absence of left great toe; Z89.432 Acquired absence of left foot; Z68.28 Body mass index [BMI] 28.0-28.9, adult; Z86.73 Personal history of transient ischemic attack (TIA), and cerebral infarction without residual deficits

== ENCOUNTER → 2018-02-22 | Outpatient (CLI) | payer OTHER, MEDICAID ==
--- NOTE | ~2018-02-22 | EKG ---
[place], [place] ELECTROCARDIOGRAM REPORT NAME: DEBORAH SANTACRUZ UNIT #: [id number] ROOM: DOCTOR: STEVEN ALLEN MD BIRTHDATE: [birth year] DOS: 02/23/2018 TIME: 14:59: RATE AND RHYTHM: Normal sinus rhythm at 71 beats per minute. IL interval 250 milliseconds, QRS duration 97 milliseconds, corrected QT interval 444 milliseconds, QRS axis 26. IMPRESSION: 1. Normal sinus rhythm. 2. Prolonged IL interval, first degree AV block. 3. Low voltage in precordial leads and Q-wave in leads V2-V4. Q-wave is more than 30 milliseconds. Consider old anterior infarct. 4. No old EKG to compare with. This is abnormal EKG. STEVEN ALLEN MD CM:EKGRPT:ELECTROCARDIOGRAM REPORT 1111 1205 STEVEN ALLEN MD
== END | disposition home or self-care (01) ==
LOC: RESCLI 00:43
DX: E11.65 Type 2 diabetes mellitus with hyperglycemia (principal); R00.2 Palpitations; E83.42 Hypomagnesemia; E78.5 Hyperlipidemia, unspecified; E03.9 Hypothyroidism, unspecified; J44.9 Chronic obstructive pulmonary disease, unspecified; I10 Essential (primary) hypertension; G40.909 Epilepsy, unspecified, not intractable, without status epilepticus; K21.9 Gastro-esophageal reflux disease without esophagitis; Z79.4 Long term (current) use of insulin

== ENCOUNTER 2018-02-26 20:20 | Inpatient (IN) | payer OTHER, MEDICAID ==
[~2018-02-26] VITALS: Ht 182.8 cm; Wt 114.8 kg
--- NOTE | ~2018-02-26 | EKG ---
[place], [place] ELECTROCARDIOGRAM REPORT NAME: DEBORAH SANTACRUZ UNIT #: [id number] ROOM: [facility] DOCTOR: PAM ALVARADO MD BIRTHDATE: [birth year] DOS: 02/27/2018 TIME: 0303 hours. FINDINGS: 1. Normal sinus rhythm at 68 beats per minute. 2. First degree heart block. 3. Complete left bundle-branch block. 4. An abnormal ECG. 5. No significant change from an ECG of the previous day. PAM ALVARADO MD CM:EKGRPT:ELECTROCARDIOGRAM REPORT 1658 1809 PAM ALVARADO MD
--- NOTE | ~2018-02-26 | EKG ---
[place], [place] ELECTROCARDIOGRAM REPORT NAME: DEBORAH SANTACRUZ UNIT #: [id number] ROOM: [facility] DOCTOR: PAM ALVARADO MD BIRTHDATE: [birth year] DOS: 02/26/2018 TIME: 2315 hours. FINDINGS: 1. Normal sinus rhythm at 68 beats per minute. 2. Incomplete left bundle-branch block. 3. No significant change from ECG done about an hour earlier. PAM ALVARADO MD CM:EKGRPT:ELECTROCARDIOGRAM REPORT 1658 1807 PAM ALVARADO MD
--- NOTE | ~2018-02-26 | EKG ---
[place], [place] ELECTROCARDIOGRAM REPORT NAME: DEBORAH SANTACRUZ UNIT #: [id number] ROOM: [facility] DOCTOR: PAM ALVARADO MD BIRTHDATE: [birth year] DOS: 02/26/2018 TIME: 2023. FINDINGS: 1. Normal sinus rhythm at 71 beats per minute. 2. First degree heart block. 3. Incomplete left bundle-branch block. 4. Low voltage in most leads. 5. An abnormal ECG. 6. No previous tracing is available for comparison. PAM ALVARADO MD CM:EKGRPT:ELECTROCARDIOGRAM REPORT 1658 1805 PAM ALVARADO MD
[2018-02-26 20:23] VITALS: BP 98/48
[2018-02-26 21:04] LABS: BASO % 0.5 % (0.0-1.0); EOS # 0.7 10*3/uL (0.0-0.4); EOS % 10.7 % (1.0-4.0); HEMATOCRIT 25.9 % (42.0-52.0); HEMOGLOBIN 7.9 g/dl (14.0-18.0); LYMPH # 2.3 10*3/uL (1.3-4.4); LYMPH % 35.6 % (27.0-41.0); MEAN CELL VOLUME 92.2 fl (80.0-94.0); MEAN CORPUSCULAR HGB 28.1 pg (27.0-31.0); MEAN CORPUSCULAR HGB CONC 30.5 g/dl (33.0-37.0); MONO # 0.5 10*3/uL (0.1-1.0); MONO % 7.1 % (3.0-9.0); NEUT # 2.9 10*3/uL (2.3-7.9); NEUT % 45.9 % (47.0-73.0); PLATELET COUNT AUTOMATED 123 10*3/uL (130-400); RED BLOOD COUNT 2.81 10*6/uL (4.50-5.90); RED CELL DISTRI WIDTH 15.3 % (0-14.5); WHITE BLOOD COUNT 6.4 10*3/uL (4.8-10.8)
[2018-02-26 21:16] LABS: ACT PARTIAL THROMBO TIME 41.1 SECONDS (20.8-31.5); INTERNATIONAL NORM RATIO 1.5 (2.0-3.5)
[2018-02-26 21:21] LABS: ALBUMIN 2.6 gm/dl (3.1-4.5); ALKALINE PHOSPHATASE 94 U/L (45-117); BUN 26 mg/dl (7-24); CHLORIDE 107 mmol/L (98-107); CREATININE 1.81 mg/dL (0.70-1.30); POTASSIUM 4.8 mmol/L (3.5-5.1); SGOT/AST 13 IU/L (3-35); SGPT/ALT 15 U/L (12-78); SODIUM 139 mmol/L (136-145); TOTAL PROTEIN 6.2 gm/dL (6.4-8.2)
[2018-02-26 21:24] LABS: TROPONIN I < 0.015 ng/ml (<0.045)
[2018-02-26 23:30] VITALS: BP 119/64
[2018-02-27] VITALS (12 sets, daily range): BP systolic 95–145; BP diastolic 20–79
[2018-02-27 03:06] LABS: INTERNATIONAL NORM RATIO 1.6 (2.0-3.5)
[2018-02-27 03:11] LABS: ALBUMIN 2.5 gm/dl (3.1-4.5); CREATININE 1.66 mg/dL (0.70-1.30); PHOSPHOROUS 4.1 mg/dL (2.5-4.9); POTASSIUM 4.7 mmol/L (3.5-5.1); TOTAL PROTEIN 5.8 gm/dL (6.4-8.2)
[2018-02-27 03:20] LABS: THYROID STIM HORMONE (HS) 3.61 uIU/ml (0.358-4.75)
[2018-02-27 05:25] LABS: URINE AMPHETAMINES < 1000 (1000ng/ml); URINE BARBITURATES < 200 (200ng/ml); URINE BENZODIAZEPINES < 200 (200ng/ml); URINE CANNABINOIDS (THC) < 50 (50ng/ml); URINE COCAINE < 300 (300ng/ml); URINE METHADONE < 300 (300ng/ml); URINE OPIATES > 300 (300ng/ml)
[2018-02-27 05:26] LABS: URINE PHENCYCLIDINE < 25 (25ng/ml)
[2018-02-27] MEDS ORDERED: LEVEMIR FL100 UNIT/1 SQ (06:14)
[2018-02-27 07:55] LABS: BASO % 0.4 % (0.0-1.0); EOS # 0.6 10*3/uL (0.0-0.4); EOS % 10.1 % (1.0-4.0); HEMATOCRIT 27.3 % (42.0-52.0); HEMOGLOBIN 8.5 g/dl (14.0-18.0); LYMPH # 1.7 10*3/uL (1.3-4.4); LYMPH % 31.6 % (27.0-41.0); MEAN CORPUSCULAR HGB 28.3 pg (27.0-31.0); MEAN CORPUSCULAR HGB CONC 31.1 g/dl (33.0-37.0); MEAN PLATELET VOLUME 11.3 fl (9.6-12.3); MONO # 0.4 10*3/uL (0.1-1.0); MONO % 7.3 % (3.0-9.0); NEUT # 2.7 10*3/uL (2.3-7.9); NEUT % 50.2 % (47.0-73.0); PLATELET COUNT AUTOMATED 125 10*3/uL (130-400); RED CELL DISTRI WIDTH 15.3 % (0-14.5); WHITE BLOOD COUNT 5.5 10*3/uL (4.8-10.8)
[2018-02-28] VITALS: BP 102/51; BP 107/53
[2018-02-28 07:50] LABS: BASO % 0.6 % (0.0-1.0); EOS # 0.5 10*3/uL (0.0-0.4); EOS % 8.3 % (1.0-4.0); LYMPH # 1.8 10*3/uL (1.3-4.4); LYMPH % 32.5 % (27.0-41.0); MEAN CELL VOLUME 90.1 fl (80.0-94.0); MEAN PLATELET VOLUME 11.5 fl (9.6-12.3); MONO # 0.3 10*3/uL (0.1-1.0); MONO % 6.1 % (3.0-9.0); NEUT # 2.9 10*3/uL (2.3-7.9); NEUT % 52.3 % (47.0-73.0); PLATELET COUNT AUTOMATED 128 10*3/uL (130-400); RED BLOOD COUNT 3.22 10*6/uL (4.50-5.90); RED CELL DISTRI WIDTH 15.2 % (0-14.5); WHITE BLOOD COUNT 5.5 10*3/uL (4.8-10.8)
[2018-02-28 08:00] VITALS: BP 148/70
[2018-02-28 08:17] LABS: CHLORIDE 107 mmol/L (98-107); POTASSIUM 4.5 mmol/L (3.5-5.1); SODIUM 139 mmol/L (136-145)
[2018-02-28 08:25] LABS: BUN 22 mg/dl (7-24); CREATININE 1.23 mg/dL (0.70-1.30); PHOSPHOROUS 4.1 mg/dL (2.5-4.9)
[2018-02-28 12:00] VITALS: BP 155/77
[2018-02-28 16:00] VITALS: BP 134/66
[2018-02-28 20:00] VITALS: BP 154/86
[2018-03-01] VITALS: BP 152/74
[2018-03-01 08:00] VITALS: BP 159/90
[2018-03-01 08:02] LABS: BASO % 0.5 % (0.0-1.0); EOS # 0.5 10*3/uL (0.0-0.4); EOS % 8.5 % (1.0-4.0); HEMATOCRIT 29.9 % (42.0-52.0); HEMOGLOBIN 9.3 g/dl (14.0-18.0); LYMPH # 1.9 10*3/uL (1.3-4.4); LYMPH % 30.4 % (27.0-41.0); MEAN CELL VOLUME 89.8 fl (80.0-94.0); MEAN CORPUSCULAR HGB 27.9 pg (27.0-31.0); MEAN CORPUSCULAR HGB CONC 31.1 g/dl (33.0-37.0); MEAN PLATELET VOLUME 11.3 fl (9.6-12.3); MONO # 0.4 10*3/uL (0.1-1.0); MONO % 7.2 % (3.0-9.0); NEUT # 3.2 10*3/uL (2.3-7.9); NEUT % 53.1 % (47.0-73.0); PLATELET COUNT AUTOMATED 138 10*3/uL (130-400); RED BLOOD COUNT 3.33 10*6/uL (4.50-5.90); RED CELL DISTRI WIDTH 15.5 % (0-14.5); WHITE BLOOD COUNT 6.1 10*3/uL (4.8-10.8)
[2018-03-01 08:20] LABS: BUN 19 mg/dl (7-24); CHLORIDE 108 mmol/L (98-107); CREATININE 1.23 mg/dL (0.70-1.30); PHOSPHOROUS 4.2 mg/dL (2.5-4.9); POTASSIUM 4.8 mmol/L (3.5-5.1); SODIUM 141 mmol/L (136-145)
[2018-03-01 12:00] VITALS: BP 134/82
[2018-03-01 16:00] VITALS: BP 128/62
[2018-03-01 20:00] VITALS: BP 133/60
[2018-03-02] VITALS: BP 139/63
[2018-03-02 06:29] LABS: BASO % 0.3 % (0.0-1.0); EOS # 0.5 10*3/uL (0.0-0.4); EOS % 8.4 % (1.0-4.0); HEMATOCRIT 29.6 % (42.0-52.0); HEMOGLOBIN 9.3 g/dl (14.0-18.0); LYMPH # 1.9 10*3/uL (1.3-4.4); LYMPH % 31.1 % (27.0-41.0); MEAN CORPUSCULAR HGB 28.3 pg (27.0-31.0); MEAN CORPUSCULAR HGB CONC 31.4 g/dl (33.0-37.0); MEAN PLATELET VOLUME 11.9 fl (9.6-12.3); MONO # 0.4 10*3/uL (0.1-1.0); MONO % 6.3 % (3.0-9.0); NEUT # 3.3 10*3/uL (2.3-7.9); NEUT % 53.7 % (47.0-73.0); PLATELET COUNT AUTOMATED 140 10*3/uL (130-400); RED BLOOD COUNT 3.29 10*6/uL (4.50-5.90); RED CELL DISTRI WIDTH 15.2 % (0-14.5); WHITE BLOOD COUNT 6.2 10*3/uL (4.8-10.8)
[2018-03-02 06:37] LABS: BUN 18 mg/dl (7-24); CHLORIDE 107 mmol/L (98-107); CREATININE 1.23 mg/dL (0.70-1.30); POTASSIUM 4.5 mmol/L (3.5-5.1); SODIUM 140 mmol/L (136-145)
[2018-03-02 08:00] VITALS: BP 148/72
[2018-03-02 12:00] VITALS: BP 151/78
[2018-03-02] MEDS ORDERED: MAGNESIUM400 MG PO (14:52)
[2018-03-02] MEDS ORDERED: NATURE'S BLEND F1 MG PO (14:52)
== END 2018-03-02 15:18 | disposition home or self-care (01) | DRG 682 ==
LOC: ED 20:20 → 5E 22:40 → EDHOLD 22:40 → 5E 22:49
PROVIDERS: Emergency Medicine; Emergency Medicine Emergency Medical Services; Family Medicine; Internal Medicine
PROC: 30233N1 Transfusion of Nonautologous Red Blood Cells into Peripheral Vein, Percutaneous Approach (ICD-10-PCS; principal; 2018-02-27)
DX: N17.0 Acute kidney failure with tubular necrosis (principal); E43 Unspecified severe protein-calorie malnutrition; D69.6 Thrombocytopenia, unspecified; D68.9 Coagulation defect, unspecified; E11.22 Type 2 diabetes mellitus with diabetic chronic kidney disease; E11.40 Type 2 diabetes mellitus with diabetic neuropathy, unspecified; I50.32 Chronic diastolic (congestive) heart failure; L97.429 Non-pressure chronic ulcer of left heel and midfoot with unspecified severity; I13.0 Hypertensive heart and chronic kidney disease with heart failure and stage 1 through stage 4 chronic kidney disease, or unspecified chronic kidney disease; K21.9 Gastro-esophageal reflux disease without esophagitis; Z91.81 History of falling; R07.89 Other chest pain; I25.10 Atherosclerotic heart disease of native coronary artery without angina pectoris; I95.2 Hypotension due to drugs; E83.42 Hypomagnesemia; E83.51 Hypocalcemia; N18.3 Chronic kidney disease, stage 3 (moderate); L97.519 Non-pressure chronic ulcer of other part of right foot with unspecified severity; N40.0 Benign prostatic hyperplasia without lower urinary tract symptoms; G89.29 Other chronic pain; J44.9 Chronic obstructive pulmonary disease, unspecified; E78.5 Hyperlipidemia, unspecified; E03.9 Hypothyroidism, unspecified; E66.9 Obesity, unspecified; G40.909 Epilepsy, unspecified, not intractable, without status epilepticus; E11.621 Type 2 diabetes mellitus with foot ulcer; M19.90 Unspecified osteoarthritis, unspecified site; F32.9 Major depressive disorder, single episode, unspecified; Z96.641 Presence of right artificial hip joint; F41.1 Generalized anxiety disorder; M10.9 Gout, unspecified; M51.37 Other intervertebral disc degeneration, lumbosacral region; M43.10 Spondylolisthesis, site unspecified; K44.9 Diaphragmatic hernia without obstruction or gangrene; Z68.34 Body mass index [BMI] 34.0-34.9, adult; Z88.1 Allergy status to other antibiotic agents; Z88.8 Allergy status to other drugs, medicaments and biological substances; Z79.01 Long term (current) use of anticoagulants; Z79.4 Long term (current) use of insulin; Z79.899 Other long term (current) drug therapy; Z95.818 Presence of other cardiac implants and grafts; Z90.49 Acquired absence of other specified parts of digestive tract; Z89.412 Acquired absence of left great toe; Z72.89 Other problems related to lifestyle; Z87.891 Personal history of nicotine dependence; Z80.0 Family history of malignant neoplasm of digestive organs; Z83.3 Family history of diabetes mellitus; Z82.3 Family history of stroke; Z82.49 Family history of ischemic heart disease and other diseases of the circulatory system; Z86.73 Personal history of transient ischemic attack (TIA), and cerebral infarction without residual deficits

== ENCOUNTER → 2018-02-26 | Outpatient (CLI) | payer OTHER, MEDICAID | END | disposition home or self-care (01) | LOC: WOUNDCARE 02:12 | DX: E11.621 Type 2 diabetes mellitus with foot ulcer (principal); L97.422 Non-pressure chronic ulcer of left heel and midfoot with fat layer exposed; L97.411 Non-pressure chronic ulcer of right heel and midfoot limited to breakdown of skin; E11.40 Type 2 diabetes mellitus with diabetic neuropathy, unspecified; E11.65 Type 2 diabetes mellitus with hyperglycemia; E03.9 Hypothyroidism, unspecified; E78.5 Hyperlipidemia, unspecified; E11.22 Type 2 diabetes mellitus with diabetic chronic kidney disease; I12.9 Hypertensive chronic kidney disease with stage 1 through stage 4 chronic kidney disease, or unspecified chronic kidney disease; N18.3 Chronic kidney disease, stage 3 (moderate); I48.92 Unspecified atrial flutter; J44.9 Chronic obstructive pulmonary disease, unspecified; Z96.641 Presence of right artificial hip joint; Z90.49 Acquired absence of other specified parts of digestive tract; Z89.422 Acquired absence of other left toe(s); Z87.891 Personal history of nicotine dependence ==

== ENCOUNTER → 2018-03-05 | Outpatient (CLI) | payer OTHER, MEDICAID | END | disposition home or self-care (01) | LOC: WOUNDCARE 00:44 | DX: E11.621 Type 2 diabetes mellitus with foot ulcer (principal); L97.422 Non-pressure chronic ulcer of left heel and midfoot with fat layer exposed; L97.511 Non-pressure chronic ulcer of other part of right foot limited to breakdown of skin; E11.65 Type 2 diabetes mellitus with hyperglycemia; E11.40 Type 2 diabetes mellitus with diabetic neuropathy, unspecified; E03.9 Hypothyroidism, unspecified; E78.5 Hyperlipidemia, unspecified; E11.22 Type 2 diabetes mellitus with diabetic chronic kidney disease; I12.9 Hypertensive chronic kidney disease with stage 1 through stage 4 chronic kidney disease, or unspecified chronic kidney disease; N18.3 Chronic kidney disease, stage 3 (moderate); I48.92 Unspecified atrial flutter; J44.9 Chronic obstructive pulmonary disease, unspecified; Z90.49 Acquired absence of other specified parts of digestive tract; Z89.412 Acquired absence of left great toe; Z89.422 Acquired absence of other left toe(s); Z96.643 Presence of artificial hip joint, bilateral; Z87.891 Personal history of nicotine dependence ==

== ENCOUNTER 2018-03-07 19:17 | Emergency (ER) | payer OTHER, MEDICAID ==
[~2018-03-07] VITALS: Wt 97.1 kg
--- NOTE | ~2018-03-07 | EKG ---
[place], [place] ELECTROCARDIOGRAM REPORT NAME: DEBORAH SANTACRUZ UNIT #: [id number] ROOM: DOCTOR: PAM ALVARADO MD BIRTHDATE: [birth year] DOS: 03/07/2018 TIME: 1939 hours. FINDINGS: 1. Normal sinus rhythm at 70 beats per minute. 2. Old inferior wall IL. 3. Also consider old anterior wall myocardial infarction. 4. An abnormal ECG. 5. No previous tracing is available for comparison. PAM ALVARADO MD CM:EKGRPT:ELECTROCARDIOGRAM REPORT 1636 1832 PAM ALVARADO MD
--- NOTE | ~2018-03-07 | EKG ---
[place], [place] ELECTROCARDIOGRAM REPORT NAME: DEBORAH SANTACRUZ UNIT #: [id number] ROOM: DOCTOR: PAM ALVARADO MD BIRTHDATE: [birth year] DOS: 03/07/2018 TIME: 2224 hours. FINDINGS: 1. Normal sinus rhythm at 62 beats per minute. 2. An old inferior wall MN. 3. Probably old anterior wall MN. 4. An abnormal ECG. 5. No significant change from the ECG done at 1929 hours of the same day. PAM ALVARADO MD CM:EKGRPT:ELECTROCARDIOGRAM REPORT 1636 1833 PAM ALVARADO MD
[2018-03-07 20:03] LABS: BASO % 0.3 % (0.0-1.0); EOS # 0.5 10*3/uL (0.0-0.4); EOS % 6.1 % (1.0-4.0); HEMATOCRIT 32.1 % (42.0-52.0); HEMOGLOBIN 9.6 g/dl (14.0-18.0); LYMPH # 3.1 10*3/uL (1.3-4.4); LYMPH % 35.6 % (27.0-41.0); MEAN CELL VOLUME 92.2 fl (80.0-94.0); MEAN CORPUSCULAR HGB 27.6 pg (27.0-31.0); MEAN CORPUSCULAR HGB CONC 29.9 g/dl (33.0-37.0); MONO # 0.7 10*3/uL (0.1-1.0); MONO % 7.4 % (3.0-9.0); NEUT # 4.4 10*3/uL (2.3-7.9); NEUT % 50.3 % (47.0-73.0); PLATELET COUNT AUTOMATED 181 10*3/uL (130-400); RED BLOOD COUNT 3.48 10*6/uL (4.50-5.90); WHITE BLOOD COUNT 8.8 10*3/uL (4.8-10.8)
[2018-03-07 20:20] LABS: ACT PARTIAL THROMBO TIME 48.8 SECONDS (20.8-31.5); INTERNATIONAL NORM RATIO 1.7 (2.0-3.5)
[2018-03-07 20:21] LABS: ALBUMIN 2.9 gm/dl (3.1-4.5); ALKALINE PHOSPHATASE 96 U/L (45-117); BUN 17 mg/dl (7-24); CHLORIDE 104 mmol/L (98-107); POTASSIUM 4.3 mmol/L (3.5-5.1); SGOT/AST 8 IU/L (3-35); SGPT/ALT 11 U/L (12-78); SODIUM 137 mmol/L (136-145); TOTAL PROTEIN 6.6 gm/dL (6.4-8.2)
[2018-03-07 20:22] LABS: TROPONIN I < 0.015 ng/ml (<0.045)
[2018-03-08 05:15] VITALS: BP 118/65
== END 2018-03-08 06:27 | disposition home or self-care (01) ==
LOC: ED 19:17
PROVIDERS: Emergency Medicine
DX: R07.89 Other chest pain (principal); E83.42 Hypomagnesemia; E78.5 Hyperlipidemia, unspecified; E03.9 Hypothyroidism, unspecified; G40.909 Epilepsy, unspecified, not intractable, without status epilepticus; E66.9 Obesity, unspecified; M10.9 Gout, unspecified; K21.9 Gastro-esophageal reflux disease without esophagitis; I13.0 Hypertensive heart and chronic kidney disease with heart failure and stage 1 through stage 4 chronic kidney disease, or unspecified chronic kidney disease; E11.22 Type 2 diabetes mellitus with diabetic chronic kidney disease; N18.3 Chronic kidney disease, stage 3 (moderate); I50.30 Unspecified diastolic (congestive) heart failure; I48.92 Unspecified atrial flutter; I25.10 Atherosclerotic heart disease of native coronary artery without angina pectoris; G89.29 Other chronic pain; Z79.4 Long term (current) use of insulin; Z86.73 Personal history of transient ischemic attack (TIA), and cerebral infarction without residual deficits; Z87.891 Personal history of nicotine dependence; Z95.5 Presence of coronary angioplasty implant and graft; Z96.651 Presence of right artificial knee joint; Z79.899 Other long term (current) drug therapy; Z88.1 Allergy status to other antibiotic agents; Z88.3 Allergy status to other anti-infective agents; Z88.8 Allergy status to other drugs, medicaments and biological substances

== ENCOUNTER → 2018-03-10 | Outpatient (CLI) | payer OTHER, MEDICAID ==
[~2018-03-10] MED LIST changes: +LIDEX 0.05% CRE15 GM T; +ONETOUCH LANCE1 EACH MC; +VISTARIL25 MG PO; +ZANTAC 7575 M1 PO
== END | disposition home or self-care (01) ==
LOC: WOUNDCARE 14:36
DX: E11.621 Type 2 diabetes mellitus with foot ulcer (principal); L97.422 Non-pressure chronic ulcer of left heel and midfoot with fat layer exposed; L97.411 Non-pressure chronic ulcer of right heel and midfoot limited to breakdown of skin; L97.511 Non-pressure chronic ulcer of other part of right foot limited to breakdown of skin; E11.22 Type 2 diabetes mellitus with diabetic chronic kidney disease; I12.9 Hypertensive chronic kidney disease with stage 1 through stage 4 chronic kidney disease, or unspecified chronic kidney disease; N18.3 Chronic kidney disease, stage 3 (moderate); E11.40 Type 2 diabetes mellitus with diabetic neuropathy, unspecified; E03.9 Hypothyroidism, unspecified; I48.92 Unspecified atrial flutter; J44.9 Chronic obstructive pulmonary disease, unspecified; Z87.891 Personal history of nicotine dependence; Z96.641 Presence of right artificial hip joint; Z89.412 Acquired absence of left great toe; Z89.422 Acquired absence of other left toe(s)

== ENCOUNTER → 2018-03-12 | Outpatient (CLI) | payer OTHER, MEDICAID ==
[~2018-03-12] MED LIST changes: -LIDEX 0.05% CRE15 GM T; -ONETOUCH LANCE1 EACH MC; -VISTARIL25 MG PO
== END | disposition home or self-care (01) ==
LOC: WOUNDCARE 02:01
DX: E11.621 Type 2 diabetes mellitus with foot ulcer (principal); L97.511 Non-pressure chronic ulcer of other part of right foot limited to breakdown of skin; L97.422 Non-pressure chronic ulcer of left heel and midfoot with fat layer exposed; L97.411 Non-pressure chronic ulcer of right heel and midfoot limited to breakdown of skin; E03.9 Hypothyroidism, unspecified; E11.40 Type 2 diabetes mellitus with diabetic neuropathy, unspecified; E78.5 Hyperlipidemia, unspecified; E11.22 Type 2 diabetes mellitus with diabetic chronic kidney disease; I12.9 Hypertensive chronic kidney disease with stage 1 through stage 4 chronic kidney disease, or unspecified chronic kidney disease; N18.3 Chronic kidney disease, stage 3 (moderate); E11.65 Type 2 diabetes mellitus with hyperglycemia; I48.92 Unspecified atrial flutter; J44.9 Chronic obstructive pulmonary disease, unspecified; Z87.891 Personal history of nicotine dependence; Z96.641 Presence of right artificial hip joint; Z90.49 Acquired absence of other specified parts of digestive tract; Z89.422 Acquired absence of other left toe(s); Z89.412 Acquired absence of left great toe

== ENCOUNTER → 2018-03-16 | Outpatient (CLI) | payer OTHER, MEDICAID ==
[~2018-03-16] MED LIST changes: +LIDEX 0.05% CRE15 GM T; +ONETOUCH LANCE1 EACH MC; +VISTARIL25 MG PO
== END | disposition home or self-care (01) ==
LOC: WOUNDCARE 02:39
DX: E11.621 Type 2 diabetes mellitus with foot ulcer (principal); L97.422 Non-pressure chronic ulcer of left heel and midfoot with fat layer exposed; L97.411 Non-pressure chronic ulcer of right heel and midfoot limited to breakdown of skin; L97.511 Non-pressure chronic ulcer of other part of right foot limited to breakdown of skin; E11.40 Type 2 diabetes mellitus with diabetic neuropathy, unspecified; E11.22 Type 2 diabetes mellitus with diabetic chronic kidney disease; I12.9 Hypertensive chronic kidney disease with stage 1 through stage 4 chronic kidney disease, or unspecified chronic kidney disease; N18.3 Chronic kidney disease, stage 3 (moderate); E03.9 Hypothyroidism, unspecified; E78.5 Hyperlipidemia, unspecified; I48.92 Unspecified atrial flutter; J44.9 Chronic obstructive pulmonary disease, unspecified; Z96.641 Presence of right artificial hip joint; Z90.49 Acquired absence of other specified parts of digestive tract; Z89.412 Acquired absence of left great toe; Z89.422 Acquired absence of other left toe(s); Z87.891 Personal history of nicotine dependence

== ENCOUNTER 2018-03-17 01:28 | Inpatient (IN) | payer OTHER, MEDICAID ==
[2018-03-17] VITALS (8 sets, daily range): BP systolic 130–180; BP diastolic 52–90
[~2018-03-17] VITALS: Ht 182.9 cm; Wt 110.0 kg
--- NOTE | ~2018-03-17 | EKG ---
[place], [place] ELECTROCARDIOGRAM REPORT NAME: DEBORAH SANTACRUZ UNIT #: [id number] ROOM: 425 DOCTOR: PAM ALVARADO MD BIRTHDATE: [birth year] DOS: 03/17/2018 TIME: 0147 hours. FINDINGS: 1. Normal sinus rhythm at 83 beats per minute. 2. First degree heart block. 3. An old inferior wall TX. 4. Probably an old anterior wall TX. 5. No previous tracing is available for comparison. PAM ALVARADO MD CM:EKGRPT:ELECTROCARDIOGRAM REPORT 183 19 PAM ALVARADO MD
--- NOTE | ~2018-03-17 | CON ---
[place], [place] REPORT OF CONSULTATION NAME: DEBORAH SANTACRUZ [facility] #: [id number] UNIT #: [id number] ROOM: 425 DOCTOR: PAM ALVARADO MD BIRTHDATE: [birth year] DOS: 03/17/2018 HISTORY OF PRESENT ILLNESS: This is a 68-year-old -[place] man whom I know very well. He has a history of coronary artery disease and had an inferior wall PR in the remote past and a stent was deployed in the right coronary artery. A couple of years ago, stents were widely patent. The LV ejection fraction was normal and an echocardiogram, less than 2 years ago, demonstrated normal LV systolic function as well. He has had atrial flutter that has been reverted to normal sinus rhythm previously with IV medications. He also has an SVT where his heart rate usually runs around 180 or so. He has hyperlipidemia, hypermagnesemia, hypothyroidism, chronic anemia, morbid obesity, seizure disorder, GERD, anxiety, essential hypertension, type 2 diabetes mellitus. He had used cocaine in the past. I believe earlier this year and last year, he had used it. He does not smoke. He has been admitted to this hospital numerous times, but this time, he came because of [facility] with [facility] magnesium level, which was 0.9 and was advised to come to the hospital for treatment. The patient tells me that he did not have any chest pain or more than usual shortness of breath. He had no palpitations, dizziness or loss of consciousness. He felt a little weak, but no twitching or any cramps in the muscles. CURRENT MEDICATIONS: Atorvastatin 40 daily, flecainide 100 mg b.i.d., levothyroxine 100 mcg daily, Mag-Ox 400 mg b.i.d., folic acid 1 mg daily, Cymbalta 60 mg daily, Depakote ER 250 mg at night, Imodium p.r.n., hydrocodone/acetaminophen 5/325, metoprolol succinate 25 mg b.i.d., midodrine 5 mg, Protonix 40 mg daily, ranitidine 75 mg daily, Risperdal 0.5 mg at bedtime, Xarelto 20 mg daily and insulin detemir 40 units b.i.d. and Humalog using sliding scale. PHYSICAL EXAMINATION: GENERAL: Reveals a patient who is moderately obese. He is alert, oriented. His speech has always been somewhat slurred. He is not in any distress. His complexion is a little pale. VITAL SIGNS: Temperature is normal, pulse is 72 and regular, blood pressure 155/81. NECK: Veins are difficult to appreciate. No bruit in the neck palpated. CARDIOVASCULAR: There is no cardiomegaly and there are no murmurs. Pedal pulses are fine. EXTREMITIES: He has 1+ right pedal and lower leg edema. RESPIRATORY: Breath sounds are diminished with few crackles in both lungs, more so on the right side. ABDOMEN: Supple. LABORATORY DATA: An ECG demonstrated normal sinus rhythm and first-degree heart block and old inferior wall PR and incomplete left bundle branch block. This is unchanged from previous ECGs. Troponin I levels are also normal. [place], [place] REPORT OF CONSULTATION NAME: DEBORHA SANTACRUZ UNIT #: [id number] ROOM: 425 DOCTOR: PAM ALVARADO MD BIRTHDATE: [birth year] BUN is 24, creatinine is 1.39, potassium 4.2, hemoglobin is 8.6 g/dL. IMPRESSION: 1. This patient has severe hypomagnesemia with just mild symptoms. This is being corrected with intravenous and p.o. supplement. 2. He has coronary artery disease that is asymptomatic. 3. There is no evidence of cardiac decompensation. 4. History of atrial flutter and supraventricular tachycardia. Hypomagnesemia did not precipitate these dysrhythmias. Currently, I have no recommendations. His cardiac medication should be continued. PAM ALVARADO MD CM:CONSTR:REPORT OF CONSULTATION 0238 03/17/182108 interface
--- NOTE | ~2018-03-17 | EKG ---
[place], [place] ELECTROCARDIOGRAM REPORT NAME: DEBORAH SANTACRUZ UNIT #: [id number] ROOM: 425 DOCTOR: PAM ALVARADO MD BIRTHDATE: [birth year] DOS: 03/17/2018 TIME: 0715 hours. FINDINGS: 1. Normal sinus rhythm at 84 beats per minute. 2. First-degree heart block. 3. Probably incomplete left bundle-branch block. 4. An old inferior wall IA. 5. No significant change from an ECG done at 0447 of the same day. PAM ALVARADO MD CM:EKGRPT:ELECTROCARDIOGRAM REPORT 183 23 PAM ALVARADO MD
--- NOTE | ~2018-03-17 | EKG ---
[place], [place] ELECTROCARDIOGRAM REPORT NAME: DEBORAH SANTACRUZ UNIT #: [id number] ROOM: 425 DOCTOR: PAM ALVARADO MD BIRTHDATE: [birth year] DOS: 03/17/2018 TIME: 0447 hours. FINDINGS: 1. Normal sinus rhythm at 78 beats per minute. 2. First-degree heart block. 3. An old inferior wall SC. 4. Probably old anterior wall myocardial infarction. 5. This may be from incomplete left bundle-branch block. 1. No significant change from an ECG done at 0147 hours of the same day. PAM ALVARADO MD CM:EKGRPT:ELECTROCARDIOGRAM REPORT 183 21 PAM ALVARADO MD
[~2018-03-17 01:28] MED LIST changes: -LIDEX 0.05% CRE15 GM T; -ONETOUCH LANCE1 EACH MC; -VISTARIL25 MG PO; -ZANTAC 7575 M1 PO
[2018-03-17 01:56] LABS: BASO % 0.4 % (0.0-1.0); EOS # 0.4 10*3/uL (0.0-0.4); HEMATOCRIT 28.7 % (42.0-52.0); HEMOGLOBIN 9.1 g/dl (14.0-18.0); LYMPH # 2.7 10*3/uL (1.3-4.4); LYMPH % 38.3 % (27.0-41.0); MEAN CELL VOLUME 87.2 fl (80.0-94.0); MEAN CORPUSCULAR HGB 27.7 pg (27.0-31.0); MEAN CORPUSCULAR HGB CONC 31.7 g/dl (33.0-37.0); MEAN PLATELET VOLUME 10.6 fl (9.6-12.3); MONO # 0.4 10*3/uL (0.1-1.0); MONO % 4.9 % (3.0-9.0); NEUT # 3.5 10*3/uL (2.3-7.9); NEUT % 49.4 % (47.0-73.0); PLATELET COUNT AUTOMATED 196 10*3/uL (130-400); RED BLOOD COUNT 3.29 10*6/uL (4.50-5.90); RED CELL DISTRI WIDTH 14.6 % (0-14.5); WHITE BLOOD COUNT 7.1 10*3/uL (4.8-10.8)
[2018-03-17 02:06] LABS: ACT PARTIAL THROMBO TIME 35.5 SECONDS (20.8-31.5); INTERNATIONAL NORM RATIO 1.4 (2.0-3.5)
[2018-03-17 02:12] LABS: ALBUMIN 2.9 gm/dl (3.1-4.5); ALKALINE PHOSPHATASE 107 U/L (45-117); BUN 24 mg/dl (7-24); CHLORIDE 104 mmol/L (98-107); CREATININE 1.54 mg/dL (0.70-1.30); POTASSIUM 4.1 mmol/L (3.5-5.1); SGOT/AST 16 IU/L (3-35); SGPT/ALT 22 U/L (12-78); SODIUM 139 mmol/L (136-145); TOTAL PROTEIN 6.4 gm/dL (6.4-8.2)
[2018-03-17 02:13] LABS: TROPONIN I < 0.015 ng/ml (<0.045)
[2018-03-17 06:17] LABS: ALBUMIN 2.7 gm/dl (3.1-4.5); ALKALINE PHOSPHATASE 105 U/L (45-117); BUN 24 mg/dl (7-24); CHLORIDE 103 mmol/L (98-107); CHOLESTEROL 108 mg/dL (<200); CREATININE 1.39 mg/dL (0.70-1.30); HDL CHOLESTEROL 41 mg/dl (40-60); LDL CHOLESTEROL 7 mg/dL (9-159); POTASSIUM 4.2 mmol/L (3.5-5.1); SGOT/AST 12 IU/L (3-35); SGPT/ALT 22 U/L (12-78); SODIUM 137 mmol/L (136-145); TOTAL PROTEIN 5.9 gm/dL (6.4-8.2); TRIGLYCERIDES 301 mg/dl (<150); VLDL CHOLESTEROL 60 mg/dL (6-40)
[2018-03-17 06:18] LABS: FREE T4 0.82 ng/dl (0.76-1.46)
[2018-03-17 06:28] LABS: INTERNATIONAL NORM RATIO 1.3 (2.0-3.5)
[2018-03-17 06:50] LABS: BASO % 0.4 % (0.0-1.0); EOS # 0.4 10*3/uL (0.0-0.4); EOS % 7.3 % (1.0-4.0); HEMATOCRIT 26.4 % (42.0-52.0); HEMOGLOBIN 8.6 g/dl (14.0-18.0); LYMPH # 1.9 10*3/uL (1.3-4.4); LYMPH % 33.3 % (27.0-41.0); MEAN CELL VOLUME 86.6 fl (80.0-94.0); MEAN CORPUSCULAR HGB 28.2 pg (27.0-31.0); MEAN CORPUSCULAR HGB CONC 32.6 g/dl (33.0-37.0); MEAN PLATELET VOLUME 11.2 fl (9.6-12.3); MONO # 0.3 10*3/uL (0.1-1.0); MONO % 6.1 % (3.0-9.0); NEUT # 2.9 10*3/uL (2.3-7.9); NEUT % 51.5 % (47.0-73.0); PLATELET COUNT AUTOMATED 203 10*3/uL (130-400); RED BLOOD COUNT 3.05 10*6/uL (4.50-5.90); RED CELL DISTRI WIDTH 14.6 % (0-14.5); WHITE BLOOD COUNT 5.6 10*3/uL (4.8-10.8)
[2018-03-17] MEDS ORDERED: ZANTAC 7575 M1 PO (13:53)
[2018-03-18] VITALS: BP 162/80
[2018-03-18 06:26] LABS: BASO % 0.5 % (0.0-1.0); EOS # 0.4 10*3/uL (0.0-0.4); HEMATOCRIT 31.4 % (42.0-52.0); HEMOGLOBIN 9.9 g/dl (14.0-18.0); LYMPH % 32.8 % (27.0-41.0); MEAN CELL VOLUME 86.7 fl (80.0-94.0); MEAN CORPUSCULAR HGB 27.3 pg (27.0-31.0); MEAN CORPUSCULAR HGB CONC 31.5 g/dl (33.0-37.0); MEAN PLATELET VOLUME 10.8 fl (9.6-12.3); MONO # 0.4 10*3/uL (0.1-1.0); MONO % 6.5 % (3.0-9.0); NEUT # 3.2 10*3/uL (2.3-7.9); NEUT % 52.9 % (47.0-73.0); PLATELET COUNT AUTOMATED 195 10*3/uL (130-400); RED BLOOD COUNT 3.62 10*6/uL (4.50-5.90); RED CELL DISTRI WIDTH 14.6 % (0-14.5)
[2018-03-18 06:45] LABS: BUN 26 mg/dl (7-24); CHLORIDE 105 mmol/L (98-107); CREATININE 1.22 mg/dL (0.70-1.30); POTASSIUM 4.2 mmol/L (3.5-5.1); SODIUM 139 mmol/L (136-145)
[2018-03-18 08:00] VITALS: BP 132/62
== END 2018-03-18 11:04 | disposition home or self-care (01) | DRG 640 ==
LOC: ED 01:28 → 4E 02:40 → EDHOLD 02:40 → 4E 02:58
PROVIDERS: Internal Medicine; Internal Medicine Hospice and Palliative Medicine; Student in an Organized Health Care Education/Training Program
DX: E83.42 Hypomagnesemia (principal); N17.0 Acute kidney failure with tubular necrosis; E44.0 Moderate protein-calorie malnutrition; E11.40 Type 2 diabetes mellitus with diabetic neuropathy, unspecified; E11.22 Type 2 diabetes mellitus with diabetic chronic kidney disease; I48.92 Unspecified atrial flutter; I50.32 Chronic diastolic (congestive) heart failure; I13.0 Hypertensive heart and chronic kidney disease with heart failure and stage 1 through stage 4 chronic kidney disease, or unspecified chronic kidney disease; I25.10 Atherosclerotic heart disease of native coronary artery without angina pectoris; R07.89 Other chest pain; N40.0 Benign prostatic hyperplasia without lower urinary tract symptoms; J44.9 Chronic obstructive pulmonary disease, unspecified; N18.3 Chronic kidney disease, stage 3 (moderate); G89.29 Other chronic pain; E11.65 Type 2 diabetes mellitus with hyperglycemia; K44.9 Diaphragmatic hernia without obstruction or gangrene; E53.8 Deficiency of other specified B group vitamins; F41.1 Generalized anxiety disorder; F10.21 Alcohol dependence, in remission; M10.9 Gout, unspecified; Z96.641 Presence of right artificial hip joint; E66.9 Obesity, unspecified; G40.909 Epilepsy, unspecified, not intractable, without status epilepticus; Z88.1 Allergy status to other antibiotic agents; Z88.8 Allergy status to other drugs, medicaments and biological substances; Z79.01 Long term (current) use of anticoagulants; Z79.4 Long term (current) use of insulin; Z79.899 Other long term (current) drug therapy; I69.90 Unspecified sequelae of unspecified cerebrovascular disease; Z91.81 History of falling; Z95.818 Presence of other cardiac implants and grafts; Z90.49 Acquired absence of other specified parts of digestive tract; Z89.412 Acquired absence of left great toe; Z89.429 Acquired absence of other toe(s), unspecified side; Z87.891 Personal history of nicotine dependence; Z80.0 Family history of malignant neoplasm of digestive organs; Z82.49 Family history of ischemic heart disease and other diseases of the circulatory system; Z83.3 Family history of diabetes mellitus; Z82.3 Family history of stroke; Z68.32 Body mass index [BMI] 32.0-32.9, adult

== ENCOUNTER → 2018-03-19 | Outpatient (CLI) | payer OTHER, MEDICAID ==
[~2018-03-19] MED LIST changes: +ZANTAC 7575 M1 PO
== END | disposition home or self-care (01) ==
LOC: WOUNDCARE 02:59
DX: E11.621 Type 2 diabetes mellitus with foot ulcer (principal); L97.511 Non-pressure chronic ulcer of other part of right foot limited to breakdown of skin; L97.422 Non-pressure chronic ulcer of left heel and midfoot with fat layer exposed; L97.411 Non-pressure chronic ulcer of right heel and midfoot limited to breakdown of skin; E03.9 Hypothyroidism, unspecified; E11.40 Type 2 diabetes mellitus with diabetic neuropathy, unspecified; E78.5 Hyperlipidemia, unspecified; E11.22 Type 2 diabetes mellitus with diabetic chronic kidney disease; I12.9 Hypertensive chronic kidney disease with stage 1 through stage 4 chronic kidney disease, or unspecified chronic kidney disease; N18.3 Chronic kidney disease, stage 3 (moderate); I48.92 Unspecified atrial flutter; Z96.641 Presence of right artificial hip joint; Z90.49 Acquired absence of other specified parts of digestive tract; Z89.412 Acquired absence of left great toe; Z89.422 Acquired absence of other left toe(s); Z87.891 Personal history of nicotine dependence

== ENCOUNTER → 2018-03-22 | Outpatient (CLI) | payer OTHER, MEDICAID ==
[~2018-03-22] MED LIST changes: +LIDEX 0.05% CRE15 GM T; +VISTARIL25 MG PO
== END | disposition home or self-care (01) ==
LOC: RESCLI 03-18 08:44
DX: E83.42 Hypomagnesemia (principal)

== ENCOUNTER 2018-03-23 06:44 | Emergency (ER) | payer OTHER, MEDICAID ==
[~2018-03-23] VITALS: Ht 182.8 cm; Wt 96.6 kg
[~2018-03-23 06:44] MED LIST changes: -LIDEX 0.05% CRE15 GM T; -ONETOUCH LANCE1 EACH MC; -VISTARIL25 MG PO
[2018-03-23 07:09] LABS: BASO % 0.7 % (0.0-1.0); EOS # 0.4 10*3/uL (0.0-0.4); EOS % 6.4 % (1.0-4.0); HEMATOCRIT 32.1 % (42.0-52.0); HEMOGLOBIN 10.3 g/dl (14.0-18.0); LYMPH # 2.4 10*3/uL (1.3-4.4); LYMPH % 40.1 % (27.0-41.0); MEAN CELL VOLUME 87.2 fl (80.0-94.0); MEAN CORPUSCULAR HGB CONC 32.1 g/dl (33.0-37.0); MEAN PLATELET VOLUME 10.4 fl (9.6-12.3); MONO # 0.4 10*3/uL (0.1-1.0); MONO % 5.9 % (3.0-9.0); NEUT # 2.7 10*3/uL (2.3-7.9); NEUT % 46.2 % (47.0-73.0); PLATELET COUNT AUTOMATED 225 10*3/uL (130-400); RED BLOOD COUNT 3.68 10*6/uL (4.50-5.90); WHITE BLOOD COUNT 5.9 10*3/uL (4.8-10.8)
[2018-03-23 07:17] LABS: ACT PARTIAL THROMBO TIME 27.3 SECONDS (20.8-31.5); INTERNATIONAL NORM RATIO 1.1 (2.0-3.5)
[2018-03-23 07:24] LABS: ALBUMIN 3.3 gm/dl (3.1-4.5); ALKALINE PHOSPHATASE 140 U/L (45-117); BUN 25 mg/dl (7-24); CHLORIDE 108 mmol/L (98-107); CREATININE 1.41 mg/dL (0.70-1.30); POTASSIUM 4.5 mmol/L (3.5-5.1); SGOT/AST 21 IU/L (3-35); SGPT/ALT 35 U/L (12-78); SODIUM 141 mmol/L (136-145)
[2018-03-23 07:31] LABS: TROPONIN I < 0.015 ng/ml (<0.045)
[2018-03-23 08:15] VITALS: BP 138/52
== END 2018-03-23 09:22 | disposition home or self-care (01) ==
LOC: ED 06:44
PROVIDERS: Student in an Organized Health Care Education/Training Program
DX: S09.90XA Unspecified injury of head, initial encounter (principal); R07.89 Other chest pain; R06.02 Shortness of breath; I25.10 Atherosclerotic heart disease of native coronary artery without angina pectoris; J44.9 Chronic obstructive pulmonary disease, unspecified; E11.40 Type 2 diabetes mellitus with diabetic neuropathy, unspecified; K21.9 Gastro-esophageal reflux disease without esophagitis; E03.9 Hypothyroidism, unspecified; E78.5 Hyperlipidemia, unspecified; I13.0 Hypertensive heart and chronic kidney disease with heart failure and stage 1 through stage 4 chronic kidney disease, or unspecified chronic kidney disease; E11.22 Type 2 diabetes mellitus with diabetic chronic kidney disease; N18.3 Chronic kidney disease, stage 3 (moderate); I50.30 Unspecified diastolic (congestive) heart failure; Z88.1 Allergy status to other antibiotic agents; Z86.73 Personal history of transient ischemic attack (TIA), and cerebral infarction without residual deficits; Z79.4 Long term (current) use of insulin; Z79.899 Other long term (current) drug therapy; Z87.891 Personal history of nicotine dependence; W06.XXXA Fall from bed, initial encounter; Y93.89 Activity, other specified; Y92.89 Other specified places as the place of occurrence of the external cause; Y99.8 Other external cause status

== ENCOUNTER → 2018-03-23 | Outpatient (CLI) | payer OTHER, MEDICAID ==
[~2018-03-23] MED LIST changes: +ONETOUCH LANCE1 EACH MC
--- NOTE | ~2018-03-23 | EKG ---
[place], [place] ELECTROCARDIOGRAM REPORT NAME: DEBORAH SANTACRUZ UNIT #: [id number] ROOM: DOCTOR: PAM ALVARADO MD BIRTHDATE: [birth year] DOS: 03/23/2018 TIME: 0648 hours. FINDINGS: 1. Normal sinus rhythm at 86 beats per minute. 2. An old inferior wall NE. 3. Probably old anterior wall NE. 4. An abnormal ECG. 5. No significant change from ECG that he has had many times this year. PAM ALVARADO MD CM:EKGRPT:ELECTROCARDIOGRAM REPORT 1637 1830 PAM ALVARADO MD
== END | disposition home or self-care (01) ==
LOC: WOUNDCARE 09:54
DX: E11.621 Type 2 diabetes mellitus with foot ulcer (principal); L97.512 Non-pressure chronic ulcer of other part of right foot with fat layer exposed; E11.40 Type 2 diabetes mellitus with diabetic neuropathy, unspecified; E03.9 Hypothyroidism, unspecified; E11.22 Type 2 diabetes mellitus with diabetic chronic kidney disease; I12.9 Hypertensive chronic kidney disease with stage 1 through stage 4 chronic kidney disease, or unspecified chronic kidney disease; N18.3 Chronic kidney disease, stage 3 (moderate); I48.92 Unspecified atrial flutter; E78.5 Hyperlipidemia, unspecified; Z89.412 Acquired absence of left great toe; Z89.422 Acquired absence of other left toe(s); Z87.891 Personal history of nicotine dependence

== ENCOUNTER 2018-03-26 12:16 | Emergency (ER) | payer OTHER, MEDICAID ==
[~2018-03-26] VITALS: Ht 182.8 cm; Wt 108.4 kg
[~2018-03-26 12:16] MED LIST changes: -LIDEX 0.05% CRE15 GM T; -VISTARIL25 MG PO
[2018-03-26 12:18] VITALS: BP 145/69
[2018-03-26] MEDS ORDERED: LIDEX 0.05% CRE15 GM T (12:47)
[2018-03-26] MEDS ORDERED: VISTARIL25 MG PO (13:15)
== END 2018-03-26 12:45 | disposition home or self-care (01) ==
LOC: ED 12:16
DX: L30.9 Dermatitis, unspecified (principal); R03.0 Elevated blood-pressure reading, without diagnosis of hypertension; K21.9 Gastro-esophageal reflux disease without esophagitis; J44.9 Chronic obstructive pulmonary disease, unspecified; G89.29 Other chronic pain; F32.9 Major depressive disorder, single episode, unspecified; I13.0 Hypertensive heart and chronic kidney disease with heart failure and stage 1 through stage 4 chronic kidney disease, or unspecified chronic kidney disease; E11.22 Type 2 diabetes mellitus with diabetic chronic kidney disease; N18.3 Chronic kidney disease, stage 3 (moderate); I50.32 Chronic diastolic (congestive) heart failure; N40.0 Benign prostatic hyperplasia without lower urinary tract symptoms; I25.10 Atherosclerotic heart disease of native coronary artery without angina pectoris; E11.40 Type 2 diabetes mellitus with diabetic neuropathy, unspecified; M10.9 Gout, unspecified; Z86.73 Personal history of transient ischemic attack (TIA), and cerebral infarction without residual deficits; Z79.4 Long term (current) use of insulin; Z79.899 Other long term (current) drug therapy; Z88.1 Allergy status to other antibiotic agents; Z88.8 Allergy status to other drugs, medicaments and biological substances

== ENCOUNTER → 2018-03-26 | Outpatient (CLI) | payer OTHER, MEDICAID ==
[~2018-03-26] MED LIST changes: +LIDEX 0.05% CRE15 GM T; +VISTARIL25 MG PO
== END | disposition home or self-care (01) ==
LOC: WOUNDCARE 02:42
DX: E11.621 Type 2 diabetes mellitus with foot ulcer (principal); L97.422 Non-pressure chronic ulcer of left heel and midfoot with fat layer exposed; L97.411 Non-pressure chronic ulcer of right heel and midfoot limited to breakdown of skin; L97.511 Non-pressure chronic ulcer of other part of right foot limited to breakdown of skin; L84 Corns and callosities; E03.9 Hypothyroidism, unspecified; E11.40 Type 2 diabetes mellitus with diabetic neuropathy, unspecified; E78.5 Hyperlipidemia, unspecified; E11.22 Type 2 diabetes mellitus with diabetic chronic kidney disease; I12.9 Hypertensive chronic kidney disease with stage 1 through stage 4 chronic kidney disease, or unspecified chronic kidney disease; N18.3 Chronic kidney disease, stage 3 (moderate); I48.92 Unspecified atrial flutter; J44.9 Chronic obstructive pulmonary disease, unspecified; Z87.891 Personal history of nicotine dependence; Z96.641 Presence of right artificial hip joint; Z90.49 Acquired absence of other specified parts of digestive tract; Z89.412 Acquired absence of left great toe; Z89.422 Acquired absence of other left toe(s)

== ENCOUNTER 2018-03-29 14:24 | Emergency (ER) | payer OTHER, MEDICAID ==
[~2018-03-29] VITALS: Wt 108.4 kg
[~2018-03-29 14:24] MED LIST changes: +LIDEX 0.05% CRE15 GM T; +VISTARIL25 MG PO
[2018-03-29 15:10] VITALS: BP 144/72
== END 2018-03-29 15:28 | disposition home or self-care (01) ==
LOC: ED 14:24
DX: S20.212A Contusion of left front wall of thorax, initial encounter (principal); I25.10 Atherosclerotic heart disease of native coronary artery without angina pectoris; G89.29 Other chronic pain; J44.9 Chronic obstructive pulmonary disease, unspecified; I13.0 Hypertensive heart and chronic kidney disease with heart failure and stage 1 through stage 4 chronic kidney disease, or unspecified chronic kidney disease; E11.22 Type 2 diabetes mellitus with diabetic chronic kidney disease; N18.3 Chronic kidney disease, stage 3 (moderate); I50.32 Chronic diastolic (congestive) heart failure; K21.9 Gastro-esophageal reflux disease without esophagitis; E11.40 Type 2 diabetes mellitus with diabetic neuropathy, unspecified; E11.65 Type 2 diabetes mellitus with hyperglycemia; E03.9 Hypothyroidism, unspecified; E78.5 Hyperlipidemia, unspecified; Z86.73 Personal history of transient ischemic attack (TIA), and cerebral infarction without residual deficits; Z88.1 Allergy status to other antibiotic agents; Z79.4 Long term (current) use of insulin; W01.0XXA Fall on same level from slipping, tripping and stumbling without subsequent striking against object, initial encounter; Y93.01 Activity, walking, marching and hiking; Y92.89 Other specified places as the place of occurrence of the external cause; Y99.8 Other external cause status

== ENCOUNTER → 2018-03-30 | Outpatient (CLI) | payer OTHER, MEDICAID ==
[~2018-03-30] MED LIST changes: +ONETOUCH LANCE1 EACH MC
== END | disposition home or self-care (01) ==
LOC: WOUNDCARE 09:48
DX: E11.621 Type 2 diabetes mellitus with foot ulcer (principal); L97.422 Non-pressure chronic ulcer of left heel and midfoot with fat layer exposed; L97.411 Non-pressure chronic ulcer of right heel and midfoot limited to breakdown of skin; L97.511 Non-pressure chronic ulcer of other part of right foot limited to breakdown of skin; E03.9 Hypothyroidism, unspecified; E11.40 Type 2 diabetes mellitus with diabetic neuropathy, unspecified; E78.5 Hyperlipidemia, unspecified; E11.22 Type 2 diabetes mellitus with diabetic chronic kidney disease; I12.9 Hypertensive chronic kidney disease with stage 1 through stage 4 chronic kidney disease, or unspecified chronic kidney disease; N18.3 Chronic kidney disease, stage 3 (moderate); I48.92 Unspecified atrial flutter; J44.9 Chronic obstructive pulmonary disease, unspecified; Z96.641 Presence of right artificial hip joint; Z90.49 Acquired absence of other specified parts of digestive tract; Z87.891 Personal history of nicotine dependence; Z89.412 Acquired absence of left great toe; Z89.422 Acquired absence of other left toe(s)

== ENCOUNTER → 2018-04-01 | Outpatient (CLI) | payer OTHER, MEDICAID ==
[~2018-04-01] MED LIST changes: -ONETOUCH LANCE1 EACH MC
== END | disposition home or self-care (01) ==
LOC: WOUNDCARE 02:49
DX: E11.621 Type 2 diabetes mellitus with foot ulcer (principal); L97.422 Non-pressure chronic ulcer of left heel and midfoot with fat layer exposed; L97.411 Non-pressure chronic ulcer of right heel and midfoot limited to breakdown of skin; L97.511 Non-pressure chronic ulcer of other part of right foot limited to breakdown of skin; E11.40 Type 2 diabetes mellitus with diabetic neuropathy, unspecified; E11.65 Type 2 diabetes mellitus with hyperglycemia; E03.9 Hypothyroidism, unspecified; E78.5 Hyperlipidemia, unspecified; J44.9 Chronic obstructive pulmonary disease, unspecified; I48.92 Unspecified atrial flutter; E11.22 Type 2 diabetes mellitus with diabetic chronic kidney disease; I12.9 Hypertensive chronic kidney disease with stage 1 through stage 4 chronic kidney disease, or unspecified chronic kidney disease; N18.3 Chronic kidney disease, stage 3 (moderate); Z87.891 Personal history of nicotine dependence

== ENCOUNTER → 2018-04-06 | Outpatient (CLI) | payer OTHER, MEDICAID ==
[~2018-04-06] MED LIST changes: +ONETOUCH LANCE1 EACH MC
== END | disposition home or self-care (01) ==
LOC: WOUNDCARE 04:34
DX: E11.621 Type 2 diabetes mellitus with foot ulcer (principal); L97.511 Non-pressure chronic ulcer of other part of right foot limited to breakdown of skin; L97.422 Non-pressure chronic ulcer of left heel and midfoot with fat layer exposed; E11.40 Type 2 diabetes mellitus with diabetic neuropathy, unspecified; E03.9 Hypothyroidism, unspecified; E78.5 Hyperlipidemia, unspecified; J44.9 Chronic obstructive pulmonary disease, unspecified; I48.92 Unspecified atrial flutter; E11.22 Type 2 diabetes mellitus with diabetic chronic kidney disease; I12.9 Hypertensive chronic kidney disease with stage 1 through stage 4 chronic kidney disease, or unspecified chronic kidney disease; N18.3 Chronic kidney disease, stage 3 (moderate); Z87.891 Personal history of nicotine dependence; Z89.412 Acquired absence of left great toe; Z89.422 Acquired absence of other left toe(s)

== ENCOUNTER 2018-04-10 12:05 | Emergency (ER) | payer OTHER, MEDICAID ==
[~2018-04-10] VITALS: Wt 119.7 kg
[~2018-04-10 12:05] MED LIST changes: -ONETOUCH LANCE1 EACH MC
[2018-04-10 12:11] VITALS: BP 182/89
[2018-04-10 12:55] LABS: BASO # 0.1 10*3/uL (0.0-0.1); BASO % 0.7 % (0.0-1.0); EOS # 0.3 10*3/uL (0.0-0.4); EOS % 3.7 % (1.0-4.0); HEMOGLOBIN 11.7 g/dl (14.0-18.0); LYMPH # 2.2 10*3/uL (1.3-4.4); LYMPH % 31.7 % (27.0-41.0); MEAN CELL VOLUME 86.2 fl (80.0-94.0); MEAN CORPUSCULAR HGB 27.3 pg (27.0-31.0); MEAN CORPUSCULAR HGB CONC 31.6 g/dl (33.0-37.0); MEAN PLATELET VOLUME 10.7 fl (9.6-12.3); MONO # 0.5 10*3/uL (0.1-1.0); MONO % 6.6 % (3.0-9.0); NEUT # 3.9 10*3/uL (2.3-7.9); PLATELET COUNT AUTOMATED 212 10*3/uL (130-400); RED BLOOD COUNT 4.29 10*6/uL (4.50-5.90); RED CELL DISTRI WIDTH 15.9 % (0-14.5); WHITE BLOOD COUNT 6.8 10*3/uL (4.8-10.8)
[2018-04-10 13:08] LABS: CREATININE 1.47 mg/dL (0.70-1.30); POTASSIUM 4.6 mmol/L (3.5-5.1)
== END 2018-04-10 14:20 | disposition home or self-care (01) ==
LOC: ED 12:05
PROVIDERS: Emergency Medicine
DX: R05 Cough (principal); R06.02 Shortness of breath; F17.200 Nicotine dependence, unspecified, uncomplicated; Z79.4 Long term (current) use of insulin; Z88.1 Allergy status to other antibiotic agents

== ENCOUNTER → 2018-04-12 | Outpatient (CLI) | payer OTHER, MEDICAID ==
[~2018-04-12] MED LIST changes: +ONETOUCH LANCE1 EACH MC
[2018-04-12 14:19] LABS: HEMATOCRIT 36.7 % (42.0-52.0); HEMOGLOBIN 11.8 g/dl (14.0-18.0)
[2018-04-12 15:02] LABS: ALBUMIN 3.5 gm/dl (3.1-4.5); ALKALINE PHOSPHATASE 157 U/L (45-117); BUN 30 mg/dl (7-24); PHOSPHOROUS 3.5 mg/dL (2.5-4.9); SGOT/AST 26 IU/L (3-35); SGPT/ALT 31 U/L (12-78); TOTAL PROTEIN 7.5 gm/dL (6.4-8.2)
[2018-04-12 15:15] LABS: CHLORIDE 102 mmol/L (98-107); POTASSIUM 4.6 mmol/L (3.5-5.1); SODIUM 135 mmol/L (136-145)
== END | disposition home or self-care (01) ==
LOC: RESCLI 04:04
PROVIDERS: Internal Medicine
DX: I10 Essential (primary) hypertension (principal); K21.9 Gastro-esophageal reflux disease without esophagitis; E03.9 Hypothyroidism, unspecified; E11.65 Type 2 diabetes mellitus with hyperglycemia; I25.10 Atherosclerotic heart disease of native coronary artery without angina pectoris; I48.92 Unspecified atrial flutter; E78.5 Hyperlipidemia, unspecified; E66.01 Morbid (severe) obesity due to excess calories; F41.1 Generalized anxiety disorder; N17.9 Acute kidney failure, unspecified; K92.1 Melena; I95.1 Orthostatic hypotension; G89.4 Chronic pain syndrome; G40.909 Epilepsy, unspecified, not intractable, without status epilepticus; E83.42 Hypomagnesemia; M10.9 Gout, unspecified; E53.8 Deficiency of other specified B group vitamins; F41.9 Anxiety disorder, unspecified; N40.0 Benign prostatic hyperplasia without lower urinary tract symptoms; R42 Dizziness and giddiness; R07.9 Chest pain, unspecified; R05 Cough

== ENCOUNTER 2018-04-13 15:12 | Emergency (ER) | payer OTHER, MEDICAID ==
[~2018-04-13] VITALS: Wt 104.3 kg
--- NOTE | ~2018-04-13 | EKG ---
[place], [place] ELECTROCARDIOGRAM REPORT NAME: DEBORAH SANTACRUZ UNIT #: [id number] ROOM: DOCTOR: PAM ALVARADO MD BIRTHDATE: [birth year] DOS: 04/13/2018 TIME: 1517 hours. FINDINGS: 1. Normal sinus rhythm at 95 beats per minute. 2. Old inferior wall myocardial infarction. 3. Probably old anterior wall myocardial infarction. 4. No previous tracing is available for comparison. PAM ALVARADO MD CM:EKGRPT:ELECTROCARDIOGRAM REPORT 1107 1237 PAM ALVARADO MD
[~2018-04-13 15:12] MED LIST changes: -ONETOUCH LANCE1 EACH MC
[2018-04-13 15:52] LABS: BASO % 0.5 % (0.0-1.0); EOS # 0.3 10*3/uL (0.0-0.4); EOS % 3.6 % (1.0-4.0); HEMATOCRIT 33.8 % (42.0-52.0); HEMOGLOBIN 10.9 g/dl (14.0-18.0); LYMPH # 2.3 10*3/uL (1.3-4.4); LYMPH % 29.2 % (27.0-41.0); MEAN CELL VOLUME 84.9 fl (80.0-94.0); MEAN CORPUSCULAR HGB 27.4 pg (27.0-31.0); MEAN CORPUSCULAR HGB CONC 32.2 g/dl (33.0-37.0); MEAN PLATELET VOLUME 10.8 fl (9.6-12.3); MONO # 0.5 10*3/uL (0.1-1.0); MONO % 6.4 % (3.0-9.0); NEUT # 4.7 10*3/uL (2.3-7.9); NEUT % 59.7 % (47.0-73.0); PLATELET COUNT AUTOMATED 225 10*3/uL (130-400); RED BLOOD COUNT 3.98 10*6/uL (4.50-5.90); RED CELL DISTRI WIDTH 15.9 % (0-14.5)
[2018-04-13 16:07] LABS: ALBUMIN 3.2 gm/dl (3.1-4.5); ALKALINE PHOSPHATASE 160 U/L (45-117); BUN 26 mg/dl (7-24); CHLORIDE 103 mmol/L (98-107); CREATININE 1.32 mg/dL (0.70-1.30); POTASSIUM 4.3 mmol/L (3.5-5.1); SGOT/AST 38 IU/L (3-35); SGPT/ALT 43 U/L (12-78); SODIUM 135 mmol/L (136-145); TOTAL PROTEIN 6.8 gm/dL (6.4-8.2)
[2018-04-13 16:10] LABS: TROPONIN I < 0.015 ng/ml (<0.045)
[2018-04-13 17:00] VITALS: BP 144/62
== END 2018-04-13 17:04 | disposition home or self-care (01) ==
LOC: ED 15:12
PROVIDERS: Family Medicine
DX: J06.9 Acute upper respiratory infection, unspecified (principal); R07.9 Chest pain, unspecified; I25.10 Atherosclerotic heart disease of native coronary artery without angina pectoris; I50.9 Heart failure, unspecified; J44.9 Chronic obstructive pulmonary disease, unspecified; F32.9 Major depressive disorder, single episode, unspecified; K21.9 Gastro-esophageal reflux disease without esophagitis; E11.22 Type 2 diabetes mellitus with diabetic chronic kidney disease; I12.9 Hypertensive chronic kidney disease with stage 1 through stage 4 chronic kidney disease, or unspecified chronic kidney disease; N18.3 Chronic kidney disease, stage 3 (moderate); E11.65 Type 2 diabetes mellitus with hyperglycemia; E78.5 Hyperlipidemia, unspecified; E83.42 Hypomagnesemia; F10.10 Alcohol abuse, uncomplicated; Z86.73 Personal history of transient ischemic attack (TIA), and cerebral infarction without residual deficits; Z87.891 Personal history of nicotine dependence; Z88.1 Allergy status to other antibiotic agents; Z88.8 Allergy status to other drugs, medicaments and biological substances; Z79.4 Long term (current) use of insulin; Z79.899 Other long term (current) drug therapy

== ENCOUNTER → 2018-04-13 | Outpatient (CLI) | payer OTHER, MEDICAID | END | disposition home or self-care (01) | LOC: WOUNDCARE 11:10 | DX: E11.621 Type 2 diabetes mellitus with foot ulcer (principal); L97.511 Non-pressure chronic ulcer of other part of right foot limited to breakdown of skin; L97.422 Non-pressure chronic ulcer of left heel and midfoot with fat layer exposed; E03.9 Hypothyroidism, unspecified; E11.40 Type 2 diabetes mellitus with diabetic neuropathy, unspecified; E78.5 Hyperlipidemia, unspecified; E11.22 Type 2 diabetes mellitus with diabetic chronic kidney disease; I12.9 Hypertensive chronic kidney disease with stage 1 through stage 4 chronic kidney disease, or unspecified chronic kidney disease; N18.3 Chronic kidney disease, stage 3 (moderate); I48.92 Unspecified atrial flutter; J44.9 Chronic obstructive pulmonary disease, unspecified; Z96.641 Presence of right artificial hip joint; Z90.49 Acquired absence of other specified parts of digestive tract; Z89.412 Acquired absence of left great toe; Z89.422 Acquired absence of other left toe(s); Z87.891 Personal history of nicotine dependence ==

== ENCOUNTER → 2018-04-16 | Outpatient (CLI) | payer OTHER, MEDICAID ==
[~2018-04-16] MED LIST changes: +ONETOUCH LANCE1 EACH MC
== END | disposition home or self-care (01) ==
LOC: WOUNDCARE 01:43
DX: E11.621 Type 2 diabetes mellitus with foot ulcer (principal); L97.511 Non-pressure chronic ulcer of other part of right foot limited to breakdown of skin; L97.422 Non-pressure chronic ulcer of left heel and midfoot with fat layer exposed; E11.40 Type 2 diabetes mellitus with diabetic neuropathy, unspecified; E03.9 Hypothyroidism, unspecified; E78.5 Hyperlipidemia, unspecified; J44.9 Chronic obstructive pulmonary disease, unspecified; E11.22 Type 2 diabetes mellitus with diabetic chronic kidney disease; I12.9 Hypertensive chronic kidney disease with stage 1 through stage 4 chronic kidney disease, or unspecified chronic kidney disease; N18.3 Chronic kidney disease, stage 3 (moderate); I48.92 Unspecified atrial flutter; Z87.891 Personal history of nicotine dependence; Z89.412 Acquired absence of left great toe; Z89.422 Acquired absence of other left toe(s)

== ENCOUNTER → 2018-04-20 | Outpatient (CLI) | payer OTHER, MEDICAID | END | disposition home or self-care (01) | LOC: WOUNDCARE 07:56 | DX: E11.621 Type 2 diabetes mellitus with foot ulcer (principal); L97.511 Non-pressure chronic ulcer of other part of right foot limited to breakdown of skin; E11.22 Type 2 diabetes mellitus with diabetic chronic kidney disease; I12.9 Hypertensive chronic kidney disease with stage 1 through stage 4 chronic kidney disease, or unspecified chronic kidney disease; N18.3 Chronic kidney disease, stage 3 (moderate); E11.40 Type 2 diabetes mellitus with diabetic neuropathy, unspecified; E11.65 Type 2 diabetes mellitus with hyperglycemia; E03.9 Hypothyroidism, unspecified; E78.5 Hyperlipidemia, unspecified; J44.9 Chronic obstructive pulmonary disease, unspecified; I48.92 Unspecified atrial flutter; Z96.641 Presence of right artificial hip joint; Z89.412 Acquired absence of left great toe; Z89.422 Acquired absence of other left toe(s); Z87.891 Personal history of nicotine dependence ==

== ENCOUNTER 2018-04-22 22:25 | Emergency (ER) | payer OTHER, MEDICAID ==
[~2018-04-22] VITALS: Ht 177.8 cm; Wt 95.3 kg
--- NOTE | ~2018-04-22 | EKG ---
[place], [place] ELECTROCARDIOGRAM REPORT NAME: DEBORAH SANTACRUZ UNIT #: [id number] ROOM: DOCTOR: PAM ALVARADO MD BIRTHDATE: [birth year] DOS: 04/22/2018 TIME: 2248 hours. FINDINGS: 1. Normal sinus rhythm at 70 beats per minute. 2. First-degree heart block. 3. An old inferior wall myocardial infarction. 4. Poor RV progression is present. 5. No previous tracing is available for comparison. PAM ALVARADO MD CM:EKGRPT:ELECTROCARDIOGRAM REPORT 1117 1404 PAM ALVARADO MD
[~2018-04-22 22:25] MED LIST changes: -ONETOUCH LANCE1 EACH MC
[2018-04-22 22:28] VITALS: BP 134/77
[2018-04-22 23:42] LABS: BASO # 0.1 10*3/uL (0.0-0.1); BASO % 0.5 % (0.0-1.0); EOS # 0.4 10*3/uL (0.0-0.4); EOS % 3.3 % (1.0-4.0); HEMATOCRIT 37.5 % (42.0-52.0); HEMOGLOBIN 11.5 g/dl (14.0-18.0); LYMPH # 4.3 10*3/uL (1.3-4.4); LYMPH % 38.5 % (27.0-41.0); MEAN CELL VOLUME 89.3 fl (80.0-94.0); MEAN CORPUSCULAR HGB 27.4 pg (27.0-31.0); MEAN CORPUSCULAR HGB CONC 30.7 g/dl (33.0-37.0); MEAN PLATELET VOLUME 10.7 fl (9.6-12.3); MONO # 0.6 10*3/uL (0.1-1.0); MONO % 5.3 % (3.0-9.0); NEUT # 5.7 10*3/uL (2.3-7.9); PLATELET COUNT AUTOMATED 192 10*3/uL (130-400); RED CELL DISTRI WIDTH 16.7 % (0-14.5); WHITE BLOOD COUNT 11.1 10*3/uL (4.8-10.8)
[2018-04-22 23:58] LABS: ALKALINE PHOSPHATASE 147 U/L (45-117); BUN 32 mg/dl (7-24); CHLORIDE 107 mmol/L (98-107); CKMB 1.6 ng/ml (0.5-3.6); CPK 69 U/L (39-308); LIPASE 393 U/L (73-393); POTASSIUM 4.5 mmol/L (3.5-5.1); SGOT/AST 18 IU/L (3-35); SGPT/ALT 29 U/L (12-78); SODIUM 136 mmol/L (136-145); TOTAL PROTEIN 6.7 gm/dL (6.4-8.2)
[2018-04-22 23:59] LABS: TROPONIN I < 0.015 ng/ml (<0.045)
== END 2018-04-23 02:13 | disposition left against medical advice (07) ==
LOC: ED 22:25
PROVIDERS: Emergency Medicine
DX: Z04.1 Encounter for examination and observation following transport accident (principal); I25.10 Atherosclerotic heart disease of native coronary artery without angina pectoris; I13.0 Hypertensive heart and chronic kidney disease with heart failure and stage 1 through stage 4 chronic kidney disease, or unspecified chronic kidney disease; E11.22 Type 2 diabetes mellitus with diabetic chronic kidney disease; N18.3 Chronic kidney disease, stage 3 (moderate); I50.30 Unspecified diastolic (congestive) heart failure; I48.92 Unspecified atrial flutter; J44.9 Chronic obstructive pulmonary disease, unspecified; K21.9 Gastro-esophageal reflux disease without esophagitis; E78.5 Hyperlipidemia, unspecified; E66.9 Obesity, unspecified; E03.9 Hypothyroidism, unspecified; G40.909 Epilepsy, unspecified, not intractable, without status epilepticus; E11.65 Type 2 diabetes mellitus with hyperglycemia; Z79.4 Long term (current) use of insulin; Z98.890 Other specified postprocedural states; Z79.899 Other long term (current) drug therapy; Z88.1 Allergy status to other antibiotic agents; Z88.3 Allergy status to other anti-infective agents; Z88.8 Allergy status to other drugs, medicaments and biological substances; Z86.73 Personal history of transient ischemic attack (TIA), and cerebral infarction without residual deficits; Z95.5 Presence of coronary angioplasty implant and graft; Z87.891 Personal history of nicotine dependence; V49.88XA Car occupant (driver) (passenger) injured in other specified transport accidents, initial encounter; Y93.89 Activity, other specified; Y92.89 Other specified places as the place of occurrence of the external cause; Y99.9 Unspecified external cause status

== ENCOUNTER → 2018-04-23 | Outpatient (CLI) | payer OTHER, MEDICAID ==
[~2018-04-23] MED LIST changes: +ONETOUCH LANCE1 EACH MC
== END ==
LOC: WOUNDCARE 08:50
DX: E11.621 Type 2 diabetes mellitus with foot ulcer (principal); L97.511 Non-pressure chronic ulcer of other part of right foot limited to breakdown of skin; E11.40 Type 2 diabetes mellitus with diabetic neuropathy, unspecified; E03.9 Hypothyroidism, unspecified; E11.65 Type 2 diabetes mellitus with hyperglycemia; E78.5 Hyperlipidemia, unspecified; J44.9 Chronic obstructive pulmonary disease, unspecified; E11.22 Type 2 diabetes mellitus with diabetic chronic kidney disease; I12.9 Hypertensive chronic kidney disease with stage 1 through stage 4 chronic kidney disease, or unspecified chronic kidney disease; N18.3 Chronic kidney disease, stage 3 (moderate); I48.92 Unspecified atrial flutter; Z89.412 Acquired absence of left great toe; Z89.422 Acquired absence of other left toe(s); Z87.891 Personal history of nicotine dependence

== ENCOUNTER 2018-04-26 22:02 | Inpatient (IN) | payer OTHER, MEDICAID ==
[~2018-04-26] VITALS: Ht 182.9 cm; Wt 104.3 kg
--- NOTE | ~2018-04-26 | EKG ---
[place], [place] ELECTROCARDIOGRAM REPORT NAME: DEBORAH SANTACRUZ UNIT #: [id number] ROOM: 516 DOCTOR: PAM ALVARADO MD BIRTHDATE: [birth year] DOS: 04/27/2018 TIME: 2336 hours. FINDINGS: 1. Normal sinus rhythm at 94 beats per minute. 2. First-degree heart block. 3. An old inferior wall MO should be considered. 4. Probably old anterior wall myocardial infarction. 5. No previous tracing is available for comparison. PAM ALVARADO MD CM:EKGRPT:ELECTROCARDIOGRAM REPORT 1121 1442 PAM ALVARADO MD
[~2018-04-26 22:02] MED LIST changes: -ONETOUCH LANCE1 EACH MC
[2018-04-26 22:16] VITALS: BP 117/70
[2018-04-26 22:51] LABS: BASO # 0.1 10*3/uL (0.0-0.1); BASO % 0.6 % (0.0-1.0); EOS # 0.3 10*3/uL (0.0-0.4); EOS % 3.9 % (1.0-4.0); HEMATOCRIT 32.7 % (42.0-52.0); HEMOGLOBIN 10.3 g/dl (14.0-18.0); LYMPH # 4.2 10*3/uL (1.3-4.4); MEAN CELL VOLUME 87.7 fl (80.0-94.0); MEAN CORPUSCULAR HGB 27.6 pg (27.0-31.0); MEAN CORPUSCULAR HGB CONC 31.5 g/dl (33.0-37.0); MEAN PLATELET VOLUME 10.5 fl (9.6-12.3); MONO # 0.6 10*3/uL (0.1-1.0); MONO % 6.5 % (3.0-9.0); NEUT # 3.5 10*3/uL (2.3-7.9); NEUT % 40.4 % (47.0-73.0); PLATELET COUNT AUTOMATED 174 10*3/uL (130-400); RED BLOOD COUNT 3.73 10*6/uL (4.50-5.90); RED CELL DISTRI WIDTH 17.2 % (0-14.5); WHITE BLOOD COUNT 8.7 10*3/uL (4.8-10.8)
[2018-04-26 23:08] LABS: ALBUMIN 3.1 gm/dl (3.1-4.5); CREATININE 2.02 mg/dL (0.70-1.30); POTASSIUM 4.1 mmol/L (3.5-5.1); TOTAL PROTEIN 6.9 gm/dL (6.4-8.2)
[2018-04-27] VITALS (10 sets, daily range): BP systolic 99–155; BP diastolic 42–88
[2018-04-27 05:13] LABS: BASO % 0.6 % (0.0-1.0); EOS # 0.2 10*3/uL (0.0-0.4); EOS % 3.7 % (1.0-4.0); HEMATOCRIT 32.3 % (42.0-52.0); HEMOGLOBIN 9.9 g/dl (14.0-18.0); LYMPH # 2.7 10*3/uL (1.3-4.4); LYMPH % 49.2 % (27.0-41.0); MEAN CORPUSCULAR HGB 27.3 pg (27.0-31.0); MEAN CORPUSCULAR HGB CONC 30.7 g/dl (33.0-37.0); MEAN PLATELET VOLUME 10.3 fl (9.6-12.3); MONO # 0.3 10*3/uL (0.1-1.0); MONO % 6.3 % (3.0-9.0); NEUT # 2.1 10*3/uL (2.3-7.9); NEUT % 39.5 % (47.0-73.0); PLATELET COUNT AUTOMATED 159 10*3/uL (130-400); RED BLOOD COUNT 3.63 10*6/uL (4.50-5.90); RED CELL DISTRI WIDTH 17.2 % (0-14.5); WHITE BLOOD COUNT 5.4 10*3/uL (4.8-10.8)
[2018-04-27 05:26] LABS: ACT PARTIAL THROMBO TIME 31.5 SECONDS (20.8-31.5); INTERNATIONAL NORM RATIO 1.2 (2.0-3.5)
[2018-04-27 05:30] LABS: ALKALINE PHOSPHATASE 139 U/L (45-117); BUN 28 mg/dl (7-24); CHLORIDE 105 mmol/L (98-107); CREATININE 2.07 mg/dL (0.70-1.30); PHOSPHOROUS 3.2 mg/dL (2.5-4.9); POTASSIUM 4.4 mmol/L (3.5-5.1); SGOT/AST 8 IU/L (3-35); SGPT/ALT 16 U/L (12-78); SODIUM 136 mmol/L (136-145); TOTAL PROTEIN 6.5 gm/dL (6.4-8.2)
[2018-04-27 05:31] LABS: TROPONIN I < 0.015 ng/ml (<0.045)
[2018-04-27 07:54] LABS: BILIRUBIN NEGATIVE (NEGATIVE); BLOOD NEGATIVE (NEGATIVE); CLARITY CLEAR (CLEAR); COLOR YELLOW (YELLOW); GLUCOSE 1+ (NEGATIVE); KETONE NEGATIVE (NEGATIVE); LEUKO ESTERASE NEGATIVE (NEGATIVE); NITRITE NEGATIVE (NEGATIVE); PH 5.5 (5.0-9.0); UROBILINOGEN 0.2 E.U./dl (0.2-1.0)
[2018-04-27 08:03] LABS: URINE AMPHETAMINES < 1000 (1000ng/ml); URINE BARBITURATES < 200 (200ng/ml); URINE BENZODIAZEPINES < 200 (200ng/ml); URINE CANNABINOIDS (THC) < 50 (50ng/ml); URINE COCAINE < 300 (300ng/ml); URINE METHADONE < 300 (300ng/ml); URINE OPIATES < 300 (300ng/ml)
[2018-04-27 08:04] LABS: BACTERIA 1+; URINE PHENCYCLIDINE < 25 (25ng/ml)
[2018-04-27] MEDS ORDERED: PANTOPRAZOLE SO40 MG PO (10:42)
[2018-04-28] VITALS: BP 142/77
[2018-04-28 07:20] LABS: HEMATOCRIT 32.7 % (42.0-52.0); HEMOGLOBIN 10.3 g/dl (14.0-18.0); MEAN CELL VOLUME 86.5 fl (80.0-94.0); MEAN CORPUSCULAR HGB 27.2 pg (27.0-31.0); MEAN CORPUSCULAR HGB CONC 31.5 g/dl (33.0-37.0); PLATELET COUNT AUTOMATED 184 10*3/uL (130-400); RED BLOOD COUNT 3.78 10*6/uL (4.50-5.90); RED CELL DISTRI WIDTH 16.7 % (0-14.5); WHITE BLOOD COUNT 9.1 10*3/uL (4.8-10.8)
[2018-04-28 07:31] LABS: POTASSIUM 4.4 mmol/L (3.5-5.1)
[2018-04-28 07:39] LABS: ALBUMIN 3.2 gm/dl (3.1-4.5); CREATININE 1.67 mg/dL (0.70-1.30); PHOSPHOROUS 2.5 mg/dL (2.5-4.9); TOTAL PROTEIN 6.8 gm/dL (6.4-8.2)
[2018-04-28 08:00] VITALS: BP 175/88
[2018-04-28 08:02] LABS: PLATELET SUFFICIENCY NORMAL (NORMAL); TOTAL CELLS COUNTED 100 #CELLS
[2018-04-28 09:00] VITALS: BP 148/74
[2018-04-28] MEDS ORDERED: LEVOFLOXACIN500 MG PO (10:37)
[2018-04-28] MEDS ORDERED: PREDNISONE10 MG PO (10:37)
== END 2018-04-28 13:00 | disposition home or self-care (01) | DRG 871 ==
LOC: ED 22:02 → EDHOLD 04-27 02:16 → ICCU 04-27 02:16 → 5E 04-27 15:04
PROVIDERS: Emergency Medicine Emergency Medical Services; Internal Medicine; Internal Medicine Nephrology
DX: A41.9 Sepsis, unspecified organism (principal); N17.0 Acute kidney failure with tubular necrosis; E44.0 Moderate protein-calorie malnutrition; F10.121 Alcohol abuse with intoxication delirium; J18.9 Pneumonia, unspecified organism; D68.9 Coagulation defect, unspecified; E11.22 Type 2 diabetes mellitus with diabetic chronic kidney disease; E11.42 Type 2 diabetes mellitus with diabetic polyneuropathy; I13.0 Hypertensive heart and chronic kidney disease with heart failure and stage 1 through stage 4 chronic kidney disease, or unspecified chronic kidney disease; I48.92 Unspecified atrial flutter; I50.32 Chronic diastolic (congestive) heart failure; J44.1 Chronic obstructive pulmonary disease with (acute) exacerbation; J44.0 Chronic obstructive pulmonary disease with (acute) lower respiratory infection; Z68.31 Body mass index [BMI] 31.0-31.9, adult; E11.65 Type 2 diabetes mellitus with hyperglycemia; E03.9 Hypothyroidism, unspecified; E78.5 Hyperlipidemia, unspecified; E83.42 Hypomagnesemia; E66.09 Other obesity due to excess calories; Z96.641 Presence of right artificial hip joint; F41.1 Generalized anxiety disorder; K21.9 Gastro-esophageal reflux disease without esophagitis; E53.8 Deficiency of other specified B group vitamins; M51.37 Other intervertebral disc degeneration, lumbosacral region; M43.10 Spondylolisthesis, site unspecified; G40.909 Epilepsy, unspecified, not intractable, without status epilepticus; G89.29 Other chronic pain; R07.9 Chest pain, unspecified; M10.9 Gout, unspecified; I25.10 Atherosclerotic heart disease of native coronary artery without angina pectoris; N40.0 Benign prostatic hyperplasia without lower urinary tract symptoms; F32.9 Major depressive disorder, single episode, unspecified; N18.3 Chronic kidney disease, stage 3 (moderate); Z88.1 Allergy status to other antibiotic agents; Z88.8 Allergy status to other drugs, medicaments and biological substances; Z79.4 Long term (current) use of insulin; Z79.899 Other long term (current) drug therapy; Z90.49 Acquired absence of other specified parts of digestive tract; Z89.412 Acquired absence of left great toe; Z95.818 Presence of other cardiac implants and grafts; Z82.49 Family history of ischemic heart disease and other diseases of the circulatory system; Z83.3 Family history of diabetes mellitus; Z82.3 Family history of stroke; Z80.9 Family history of malignant neoplasm, unspecified; Z91.81 History of falling

== ENCOUNTER → 2018-04-30 | Outpatient (CLI) | payer OTHER, MEDICAID ==
[~2018-04-30] MED LIST changes: +ONETOUCH LANCE1 EACH MC
== END | disposition home or self-care (01) ==
LOC: WOUNDCARE 04:27
DX: E11.621 Type 2 diabetes mellitus with foot ulcer (principal); L97.511 Non-pressure chronic ulcer of other part of right foot limited to breakdown of skin; E11.40 Type 2 diabetes mellitus with diabetic neuropathy, unspecified; E11.65 Type 2 diabetes mellitus with hyperglycemia; E11.22 Type 2 diabetes mellitus with diabetic chronic kidney disease; I12.9 Hypertensive chronic kidney disease with stage 1 through stage 4 chronic kidney disease, or unspecified chronic kidney disease; N18.3 Chronic kidney disease, stage 3 (moderate); E03.9 Hypothyroidism, unspecified; E78.5 Hyperlipidemia, unspecified; J44.9 Chronic obstructive pulmonary disease, unspecified; I48.92 Unspecified atrial flutter; Z96.641 Presence of right artificial hip joint; Z89.412 Acquired absence of left great toe; Z89.422 Acquired absence of other left toe(s); Z87.891 Personal history of nicotine dependence

== ENCOUNTER 2018-05-01 11:31 | Emergency (ER) | payer OTHER, MEDICAID ==
[~2018-05-01 11:31] MED LIST changes: -ONETOUCH LANCE1 EACH MC
[2018-05-01 11:53] LABS: BASO % 0.1 % (0.0-1.0); HEMATOCRIT 37.2 % (42.0-52.0); HEMOGLOBIN 11.8 g/dl (14.0-18.0); LYMPH # 1.5 10*3/uL (1.3-4.4); MEAN CELL VOLUME 86.9 fl (80.0-94.0); MEAN CORPUSCULAR HGB 27.6 pg (27.0-31.0); MEAN CORPUSCULAR HGB CONC 31.7 g/dl (33.0-37.0); MEAN PLATELET VOLUME 11.1 fl (9.6-12.3); MONO # 0.4 10*3/uL (0.1-1.0); MONO % 3.5 % (3.0-9.0); NEUT # 9.3 10*3/uL (2.3-7.9); NEUT % 82.4 % (47.0-73.0); PLATELET COUNT AUTOMATED 217 10*3/uL (130-400); RED BLOOD COUNT 4.28 10*6/uL (4.50-5.90); RED CELL DISTRI WIDTH 16.8 % (0-14.5); WHITE BLOOD COUNT 11.3 10*3/uL (4.8-10.8)
[2018-05-01 12:07] LABS: ALBUMIN 3.4 gm/dl (3.1-4.5); CREATININE 1.68 mg/dL (0.70-1.30); POTASSIUM 4.6 mmol/L (3.5-5.1); TOTAL PROTEIN 7.3 gm/dL (6.4-8.2)
[2018-05-01 12:41] VITALS: BP 184/94
== END 2018-05-01 13:29 | disposition home or self-care (01) ==
LOC: ED 11:31
PROVIDERS: Emergency Medicine
DX: R51 Headache (principal); E11.65 Type 2 diabetes mellitus with hyperglycemia; Z88.1 Allergy status to other antibiotic agents; Z88.3 Allergy status to other anti-infective agents; Z79.899 Other long term (current) drug therapy; Z79.4 Long term (current) use of insulin; Z95.5 Presence of coronary angioplasty implant and graft; Z98.890 Other specified postprocedural states; Z96.641 Presence of right artificial hip joint; Z87.891 Personal history of nicotine dependence

== ENCOUNTER → 2018-05-07 | Outpatient (CLI) | payer OTHER, MEDICAID ==
[~2018-05-07] MED LIST changes: +DIVALPROEX SOD500 M1 PO; +ONETOUCH LANCE1 EACH MC
== END | disposition home or self-care (01) ==
LOC: WOUNDCARE 03:44
DX: E11.621 Type 2 diabetes mellitus with foot ulcer (principal); L97.511 Non-pressure chronic ulcer of other part of right foot limited to breakdown of skin; L84 Corns and callosities; E03.9 Hypothyroidism, unspecified; E11.40 Type 2 diabetes mellitus with diabetic neuropathy, unspecified; E78.5 Hyperlipidemia, unspecified; E11.22 Type 2 diabetes mellitus with diabetic chronic kidney disease; I12.9 Hypertensive chronic kidney disease with stage 1 through stage 4 chronic kidney disease, or unspecified chronic kidney disease; N18.3 Chronic kidney disease, stage 3 (moderate); I48.92 Unspecified atrial flutter; J44.9 Chronic obstructive pulmonary disease, unspecified; Z87.891 Personal history of nicotine dependence; Z96.651 Presence of right artificial knee joint; Z90.49 Acquired absence of other specified parts of digestive tract; Z89.422 Acquired absence of other left toe(s)

== ENCOUNTER 2018-05-08 09:39 | Emergency (ER) | payer OTHER, MEDICAID ==
[~2018-05-08] VITALS: Ht 182.8 cm; Wt 106.1 kg
[~2018-05-08 09:39] MED LIST changes: -DIVALPROEX SOD500 M1 PO; -ONETOUCH LANCE1 EACH MC
[2018-05-08 10:42] LABS: BASO % 0.1 % (0.0-1.0); EOS % 0.1 % (1.0-4.0); HEMATOCRIT 35.9 % (42.0-52.0); HEMOGLOBIN 11.5 g/dl (14.0-18.0); LYMPH # 2.5 10*3/uL (1.3-4.4); LYMPH % 19.1 % (27.0-41.0); MEAN CELL VOLUME 85.7 fl (80.0-94.0); MEAN CORPUSCULAR HGB 27.4 pg (27.0-31.0); MEAN PLATELET VOLUME 11.2 fl (9.6-12.3); MONO # 0.6 10*3/uL (0.1-1.0); MONO % 4.7 % (3.0-9.0); NEUT # 9.7 10*3/uL (2.3-7.9); NEUT % 75.1 % (47.0-73.0); PLATELET COUNT AUTOMATED 183 10*3/uL (130-400); RED BLOOD COUNT 4.19 10*6/uL (4.50-5.90); RED CELL DISTRI WIDTH 16.3 % (0-14.5)
[2018-05-08 10:57] LABS: ALBUMIN 3.3 gm/dl (3.1-4.5); CREATININE 1.79 mg/dL (0.70-1.30); POTASSIUM 5.1 mmol/L (3.5-5.1); TOTAL PROTEIN 6.8 gm/dL (6.4-8.2)
[2018-05-08 11:09] VITALS: BP 142/82
[2018-05-08 11:30] LABS: BILIRUBIN NEGATIVE (NEGATIVE); BLOOD TRACE-INTACT (NEGATIVE); CLARITY CLEAR (CLEAR); COLOR YELLOW (YELLOW); GLUCOSE 3+ (NEGATIVE); KETONE NEGATIVE (NEGATIVE); LEUKO ESTERASE NEGATIVE (NEGATIVE); NITRITE NEGATIVE (NEGATIVE); UROBILINOGEN 0.2 E.U./dl (0.2-1.0)
[2018-05-08] MEDS ORDERED: ONETOUCH LANCE1 EACH MC (12:32)
== END 2018-05-08 12:14 | disposition home or self-care (01) ==
LOC: ED 09:39
PROVIDERS: Nurse Practitioner Family
DX: Z48.01 Encounter for change or removal of surgical wound dressing (principal); E11.9 Type 2 diabetes mellitus without complications; Z87.891 Personal history of nicotine dependence; Z79.899 Other long term (current) drug therapy; Z79.4 Long term (current) use of insulin; Z88.1 Allergy status to other antibiotic agents

== ENCOUNTER 2018-05-10 16:48 | Inpatient (IN) | payer OTHER, MEDICAID ==
[~2018-05-10] VITALS: Ht 182.8 cm; Wt 102.5 kg
[~2018-05-10 16:48] MED LIST changes: +ONETOUCH LANCE1 EACH MC
[2018-05-10 16:51] VITALS: BP 158/88
[2018-05-10 17:15] LABS: BASO % 0.2 % (0.0-1.0); EOS # 0.2 10*3/uL (0.0-0.4); EOS % 1.4 % (1.0-4.0); HEMATOCRIT 38.7 % (42.0-52.0); HEMOGLOBIN 12.1 g/dl (14.0-18.0); LYMPH # 3.4 10*3/uL (1.3-4.4); LYMPH % 25.8 % (27.0-41.0); MEAN CELL VOLUME 87.8 fl (80.0-94.0); MEAN CORPUSCULAR HGB 27.4 pg (27.0-31.0); MEAN CORPUSCULAR HGB CONC 31.3 g/dl (33.0-37.0); MEAN PLATELET VOLUME 11.4 fl (9.6-12.3); MONO # 0.7 10*3/uL (0.1-1.0); MONO % 5.7 % (3.0-9.0); NEUT # 8.6 10*3/uL (2.3-7.9); NEUT % 66.3 % (47.0-73.0); PLATELET COUNT AUTOMATED 223 10*3/uL (130-400); RED BLOOD COUNT 4.41 10*6/uL (4.50-5.90); RED CELL DISTRI WIDTH 16.5 % (0-14.5)
[2018-05-10 17:24] LABS: ACT PARTIAL THROMBO TIME 21.5 SECONDS (20.8-31.5)
[2018-05-10 17:32] LABS: ALBUMIN 3.2 gm/dl (3.1-4.5); BUN 35 mg/dl (7-24); CHLORIDE 105 mmol/L (98-107); CREATININE 1.82 mg/dL (0.70-1.30); LIPASE 336 U/L (73-393); POTASSIUM 4.4 mmol/L (3.5-5.1); SGOT/AST 12 IU/L (3-35); SGPT/ALT 23 U/L (12-78); SODIUM 138 mmol/L (136-145); TOTAL PROTEIN 7.1 gm/dL (6.4-8.2)
[2018-05-10 17:33] LABS: ALKALINE PHOSPHATASE 129 U/L (45-117)
[2018-05-10 17:34] LABS: VALPROIC ACID (DEPAKENE) 4.1 ug/ml (50-100)
[2018-05-10 17:37] LABS: TROPONIN I < 0.015 ng/ml (<0.045)
[2018-05-10 20:00] VITALS: BP 154/89
[2018-05-10 23:00] VITALS: BP 154/89
[2018-05-11] VITALS: BP 117/97; BP 126/74
[2018-05-11 05:23] LABS: ALBUMIN 2.6 gm/dl (3.1-4.5); BUN 32 mg/dl (7-24); CHLORIDE 111 mmol/L (98-107); PHOSPHOROUS 3.2 mg/dL (2.5-4.9); POTASSIUM 4.1 mmol/L (3.5-5.1); SODIUM 144 mmol/L (136-145)
[2018-05-11 05:56] LABS: BASO % 0.3 % (0.0-1.0); EOS # 0.1 10*3/uL (0.0-0.4); HEMOGLOBIN 10.2 g/dl (14.0-18.0); LYMPH # 2.7 10*3/uL (1.3-4.4); LYMPH % 38.1 % (27.0-41.0); MEAN CELL VOLUME 87.3 fl (80.0-94.0); MEAN CORPUSCULAR HGB 27.5 pg (27.0-31.0); MEAN CORPUSCULAR HGB CONC 31.5 g/dl (33.0-37.0); MEAN PLATELET VOLUME 11.2 fl (9.6-12.3); MONO # 0.5 10*3/uL (0.1-1.0); MONO % 7.3 % (3.0-9.0); NEUT # 3.6 10*3/uL (2.3-7.9); NEUT % 51.6 % (47.0-73.0); PLATELET COUNT AUTOMATED 161 10*3/uL (130-400); RED BLOOD COUNT 3.71 10*6/uL (4.50-5.90); RED CELL DISTRI WIDTH 16.9 % (0-14.5)
[2018-05-11 06:06] LABS: HEMATOCRIT 32.4 % (42.0-52.0)
[2018-05-11 08:00] VITALS: BP 125/69
[2018-05-11 12:00] VITALS: BP 126/66
== END 2018-05-11 12:32 | disposition home or self-care (01) | DRG 682 ==
LOC: ED 16:48 → EDHOLD 18:11 → 4E 18:11
PROVIDERS: Emergency Medicine; Internal Medicine
DX: N17.0 Acute kidney failure with tubular necrosis (principal); R65.11 Systemic inflammatory response syndrome (SIRS) of non-infectious origin with acute organ dysfunction; E43 Unspecified severe protein-calorie malnutrition; E11.22 Type 2 diabetes mellitus with diabetic chronic kidney disease; E11.42 Type 2 diabetes mellitus with diabetic polyneuropathy; E11.51 Type 2 diabetes mellitus with diabetic peripheral angiopathy without gangrene; E87.2 Acidosis; I48.92 Unspecified atrial flutter; E86.0 Dehydration; I50.32 Chronic diastolic (congestive) heart failure; I13.0 Hypertensive heart and chronic kidney disease with heart failure and stage 1 through stage 4 chronic kidney disease, or unspecified chronic kidney disease; R55 Syncope and collapse; M43.10 Spondylolisthesis, site unspecified; K21.9 Gastro-esophageal reflux disease without esophagitis; N40.1 Benign prostatic hyperplasia with lower urinary tract symptoms; R35.0 Frequency of micturition; M10.9 Gout, unspecified; E87.8 Other disorders of electrolyte and fluid balance, not elsewhere classified; G40.909 Epilepsy, unspecified, not intractable, without status epilepticus; I69.30 Unspecified sequelae of cerebral infarction; M51.37 Other intervertebral disc degeneration, lumbosacral region; G89.29 Other chronic pain; F41.1 Generalized anxiety disorder; F32.9 Major depressive disorder, single episode, unspecified; E03.9 Hypothyroidism, unspecified; E11.65 Type 2 diabetes mellitus with hyperglycemia; N18.3 Chronic kidney disease, stage 3 (moderate); J44.9 Chronic obstructive pulmonary disease, unspecified; K44.9 Diaphragmatic hernia without obstruction or gangrene; E53.8 Deficiency of other specified B group vitamins; D64.9 Anemia, unspecified; E83.42 Hypomagnesemia; Z96.641 Presence of right artificial hip joint; E66.09 Other obesity due to excess calories; Z91.81 History of falling; Z86.79 Personal history of other diseases of the circulatory system; Z68.30 Body mass index [BMI] 30.0-30.9, adult; Z79.4 Long term (current) use of insulin; Z90.49 Acquired absence of other specified parts of digestive tract; Z89.422 Acquired absence of other left toe(s); Z87.891 Personal history of nicotine dependence; Z80.0 Family history of malignant neoplasm of digestive organs; Z82.49 Family history of ischemic heart disease and other diseases of the circulatory system; Z83.3 Family history of diabetes mellitus; Z88.1 Allergy status to other antibiotic agents; Z88.8 Allergy status to other drugs, medicaments and biological substances; Z79.899 Other long term (current) drug therapy

== ENCOUNTER → 2018-05-13 | Outpatient (CLI) | payer OTHER, MEDICAID ==
[~2018-05-13] MED LIST changes: +DIVALPROEX SOD500 M1 PO
== END | disposition home or self-care (01) ==
LOC: WOUNDCARE 15:04
DX: E11.621 Type 2 diabetes mellitus with foot ulcer (principal); L97.511 Non-pressure chronic ulcer of other part of right foot limited to breakdown of skin; L84 Corns and callosities; E03.9 Hypothyroidism, unspecified; E11.40 Type 2 diabetes mellitus with diabetic neuropathy, unspecified; E78.5 Hyperlipidemia, unspecified; E11.22 Type 2 diabetes mellitus with diabetic chronic kidney disease; I12.9 Hypertensive chronic kidney disease with stage 1 through stage 4 chronic kidney disease, or unspecified chronic kidney disease; N18.3 Chronic kidney disease, stage 3 (moderate); I48.92 Unspecified atrial flutter; J44.9 Chronic obstructive pulmonary disease, unspecified; Z90.49 Acquired absence of other specified parts of digestive tract; Z89.412 Acquired absence of left great toe; Z89.422 Acquired absence of other left toe(s); Z96.641 Presence of right artificial hip joint; Z87.891 Personal history of nicotine dependence

== ENCOUNTER → 2018-05-17 | Outpatient (CLI) | payer OTHER, MEDICAID | END | disposition home or self-care (01) | LOC: WOUNDCARE 04:08 | DX: E11.621 Type 2 diabetes mellitus with foot ulcer (principal); L97.511 Non-pressure chronic ulcer of other part of right foot limited to breakdown of skin; E03.9 Hypothyroidism, unspecified; E11.40 Type 2 diabetes mellitus with diabetic neuropathy, unspecified; E78.5 Hyperlipidemia, unspecified; E11.22 Type 2 diabetes mellitus with diabetic chronic kidney disease; I12.9 Hypertensive chronic kidney disease with stage 1 through stage 4 chronic kidney disease, or unspecified chronic kidney disease; N18.3 Chronic kidney disease, stage 3 (moderate); I48.92 Unspecified atrial flutter; J44.9 Chronic obstructive pulmonary disease, unspecified; Z90.49 Acquired absence of other specified parts of digestive tract; Z96.641 Presence of right artificial hip joint; Z87.891 Personal history of nicotine dependence; Z89.412 Acquired absence of left great toe; Z89.422 Acquired absence of other left toe(s) ==

== ENCOUNTER → 2018-05-21 | Outpatient (CLI) | payer OTHER, MEDICAID | END | disposition home or self-care (01) | LOC: WOUNDCARE 12:29 | DX: E11.621 Type 2 diabetes mellitus with foot ulcer (principal); L97.511 Non-pressure chronic ulcer of other part of right foot limited to breakdown of skin; E11.40 Type 2 diabetes mellitus with diabetic neuropathy, unspecified; E11.65 Type 2 diabetes mellitus with hyperglycemia; E03.9 Hypothyroidism, unspecified; E78.5 Hyperlipidemia, unspecified; J44.9 Chronic obstructive pulmonary disease, unspecified; I48.92 Unspecified atrial flutter; E11.22 Type 2 diabetes mellitus with diabetic chronic kidney disease; I12.9 Hypertensive chronic kidney disease with stage 1 through stage 4 chronic kidney disease, or unspecified chronic kidney disease; N18.3 Chronic kidney disease, stage 3 (moderate); Z87.891 Personal history of nicotine dependence ==

== ENCOUNTER 2018-05-22 14:08 | Emergency (ER) | payer OTHER, MEDICAID ==
[~2018-05-22] VITALS: Ht 182.8 cm; Wt 106.1 kg
--- NOTE | ~2018-05-22 | EKG ---
[place], [place] ELECTROCARDIOGRAM REPORT NAME: DEBORAH SANTACRUZ UNIT #: [id number] ROOM: DOCTOR: PAM ALVARADO MD BIRTHDATE: [birth year] DOS: 05/22/2018 TIME: 1438 hours. FINDINGS: 1. Sinus tachycardia at 117 beats per minute with a single PVC. 2. An old inferior wall [place]. 3. Likely old anteroseptal myocardial infarction. 4. An abnormal ECG. 5. No previous tracing is available for comparison. PAM ALVARADO MD CM:EKGRPT:ELECTROCARDIOGRAM REPORT 1642 1813 PAM ALVARADO MD
--- NOTE | ~2018-05-22 | EKG ---
[place], [place] ELECTROCARDIOGRAM REPORT NAME: DEBORAH SANTACRUZ UNIT #: [id number] ROOM: DOCTOR: [facility] DRAFT REPORT BIRTHDATE: [birth year] [facility] Test Date: 2018-05-22 Test Time: 14:38:52 Pat Name: DEBORAH SANTACRUZ Department: Room: Gender: Public Health Registrar: : 1950 Requested By: BRADY COSTA Order Number: [id number] Reading MD: Janessa Metz MD Measurements Intervals [place] Rate: 117 P: -17 IA: 174 QRS: 27 QRSD: 86 T: 64 QT: 322 QTc: 450 Interpretive Statements Sinus tachycardia Ventricular premature complex Inferior infarct, old Anterior infarct, old Baseline wander in lead(s) V4 Electronically Signed On 05-24-2018 14:05:23 PDT by Janessa Metz MD CM:EKGRPT:ELECTROCARDIOGRAM REPORT 1438 1405 BRADY MORATAYA DRAFT REPORT BRADY COSTA M.D.
[~2018-05-22 14:08] MED LIST changes: -DIVALPROEX SOD500 M1 PO
[2018-05-22 14:50] LABS: BASO % 0.5 % (0.0-1.0); EOS # 0.2 10*3/uL (0.0-0.4); EOS % 3.8 % (1.0-4.0); HEMATOCRIT 35.3 % (42.0-52.0); HEMOGLOBIN 11.3 g/dl (14.0-18.0); LYMPH # 1.9 10*3/uL (1.3-4.4); LYMPH % 29.5 % (27.0-41.0); MEAN CELL VOLUME 85.3 fl (80.0-94.0); MEAN CORPUSCULAR HGB 27.3 pg (27.0-31.0); MEAN PLATELET VOLUME 10.6 fl (9.6-12.3); MONO # 0.4 10*3/uL (0.1-1.0); NEUT # 3.8 10*3/uL (2.3-7.9); NEUT % 59.7 % (47.0-73.0); PLATELET COUNT AUTOMATED 165 10*3/uL (130-400); RED BLOOD COUNT 4.14 10*6/uL (4.50-5.90); RED CELL DISTRI WIDTH 16.3 % (0-14.5); WHITE BLOOD COUNT 6.3 10*3/uL (4.8-10.8)
[2018-05-22 15:06] LABS: CREATININE 1.73 mg/dL (0.70-1.30); POTASSIUM 4.1 mmol/L (3.5-5.1); TOTAL PROTEIN 6.6 gm/dL (6.4-8.2)
[2018-05-22 15:45] VITALS: BP 132/80
== END 2018-05-22 16:30 | disposition home or self-care (01) ==
LOC: ED 14:08
PROVIDERS: Emergency Medicine
DX: E11.65 Type 2 diabetes mellitus with hyperglycemia (principal); I48.92 Unspecified atrial flutter; I25.10 Atherosclerotic heart disease of native coronary artery without angina pectoris; G89.29 Other chronic pain; I13.0 Hypertensive heart and chronic kidney disease with heart failure and stage 1 through stage 4 chronic kidney disease, or unspecified chronic kidney disease; E11.22 Type 2 diabetes mellitus with diabetic chronic kidney disease; N18.3 Chronic kidney disease, stage 3 (moderate); I50.32 Chronic diastolic (congestive) heart failure; J44.9 Chronic obstructive pulmonary disease, unspecified; K21.9 Gastro-esophageal reflux disease without esophagitis; M10.9 Gout, unspecified; E78.00 Pure hypercholesterolemia, unspecified; E78.5 Hyperlipidemia, unspecified; E03.9 Hypothyroidism, unspecified; E66.9 Obesity, unspecified; G40.909 Epilepsy, unspecified, not intractable, without status epilepticus; Z95.5 Presence of coronary angioplasty implant and graft; Z98.890 Other specified postprocedural states; Z96.641 Presence of right artificial hip joint; Z86.73 Personal history of transient ischemic attack (TIA), and cerebral infarction without residual deficits; Z90.49 Acquired absence of other specified parts of digestive tract; Z87.891 Personal history of nicotine dependence; Z79.899 Other long term (current) drug therapy; Z88.1 Allergy status to other antibiotic agents; Z88.3 Allergy status to other anti-infective agents

== ENCOUNTER 2018-05-28 00:33 | Inpatient (IN) | payer OTHER, MEDICAID ==
[~2018-05-28] VITALS: Ht 172.7 cm; Wt 108.5 kg
--- NOTE | ~2018-05-28 | EKG ---
[place], [place] ELECTROCARDIOGRAM REPORT NAME: DEBORAH SANTACRUZ UNIT #: [id number] ROOM: 516 DOCTOR: EPIPHANY DRAFT REPORT BIRTHDATE: [address] [facility] Test Date: 2018-05-28 Test Time: 00:40:41 Pat Name: DEBORAH SANTACRUZ Department: Room: Gender: Social Insurance Specialist: : 1950 Requested By: SACHA SAENZ Order Number: [id number] Reading MD: Hayder Cooper MD Measurements Intervals [place] Rate: 80 P: 26 IN: 242 QRS: 43 QRSD: 100 T: 68 QT: 404 QTc: 466 Interpretive Statements Sinus rhythm with first degree AVB Prolonged IN interval Low voltage, precordial leads Electronically Signed On 05-28-2018 11:14:24 PDT by Hayder Cooper MD CM:EKGRPT:ELECTROCARDIOGRAM REPORT 0040 1114 SACHA SAENZ MD EPIPHANY DRAFT REPORT SACHA SAENZ MD
--- NOTE | ~2018-05-28 | EKG ---
[place], [place] ELECTROCARDIOGRAM REPORT NAME: DEBORAH SANTACRUZ UNIT #: [id number] ROOM: 516 DOCTOR: RAFIA DRAFT REPORT BIRTHDATE: [birth year] [facility] Test Date: 2018-05-28 Test Time: 06:57:02 Pat Name: DEBORAH SANTACRUZ Department: Room: Gender: Parenting Skills Instructor: 0012 : 1950 Requested By: SACHA SAENZ Order Number: [id number] Reading MD: Hayder Cooper MD Measurements Intervals [place] Rate: 70 P: 0 LA: 224 QRS: 19 QRSD: 95 T: 67 QT: 414 QTc: 447 Interpretive Statements Sinus rhythm with first degree AVB Low voltage, precordial leads Nonspecific T abnormalities, lateral leads Electronically Signed On 05-28-2018 11:15:16 PDT by Hayder Cooper MD CM:EKGRPT:ELECTROCARDIOGRAM REPORT 0657 1115 SACHA SAENZ MD EPIPHANY DRAFT REPORT SACHA SAENZ MD
--- NOTE | ~2018-05-28 | EKG ---
[place], [place] ELECTROCARDIOGRAM REPORT NAME: DEBORAH SANTACRUZ UNIT #: [id number] ROOM: [facility] DOCTOR: RAFIA DRAFT REPORT BIRTHDATE: [birth year] [facility] Test Date: 2018-05-28 Test Time: 03:35:00 Pat Name: DEBORAH SANTACRUZ Department: 5E Room: [facility] Gender: M Conversion Developer: : 1950 Requested By: SACHA SAENZ Order Number: [id number] Reading MD: Hayder Cooper MD Measurements Intervals [place] Rate: 69 P: 6 MS: 234 QRS: 8 QRSD: 102 T: 29 QT: 441 QTc: 473 Interpretive Statements Sinus rhythm with first degree AVB Prolonged MS interval Inferior infarct, old Electronically Signed On 05-28-2018 11:14:45 PDT by Hayder Cooper MD CM:EKGRPT:ELECTROCARDIOGRAM REPORT 0335 1114 SACHA SAENZ MD EPIPHANY DRAFT REPORT SACHA SAENZ MD
[2018-05-28 00:57] LABS: BASO % 0.3 % (0.0-1.0); EOS # 0.3 10*3/uL (0.0-0.4); EOS % 4.5 % (1.0-4.0); LYMPH # 2.1 10*3/uL (1.3-4.4); LYMPH % 34.8 % (27.0-41.0); MEAN CELL VOLUME 88.4 fl (80.0-94.0); MEAN CORPUSCULAR HGB 27.4 pg (27.0-31.0); MEAN PLATELET VOLUME 10.6 fl (9.6-12.3); MONO # 0.5 10*3/uL (0.1-1.0); MONO % 7.9 % (3.0-9.0); NEUT # 3.1 10*3/uL (2.3-7.9); NEUT % 51.8 % (47.0-73.0); PLATELET COUNT AUTOMATED 189 10*3/uL (130-400); RED BLOOD COUNT 3.28 10*6/uL (4.50-5.90); RED CELL DISTRI WIDTH 15.9 % (0-14.5); WHITE BLOOD COUNT 5.9 10*3/uL (4.8-10.8)
[2018-05-28 01:03] VITALS: BP 88/51
[2018-05-28 01:05] LABS: ACT PARTIAL THROMBO TIME 34.7 SECONDS (20.8-31.5); INTERNATIONAL NORM RATIO 1.1 (2.0-3.5)
[2018-05-28 01:06] VITALS: BP 115/55
[2018-05-28 01:13] LABS: ALBUMIN 2.8 gm/dl (3.1-4.5); ALKALINE PHOSPHATASE 124 U/L (45-117); BUN 30 mg/dl (7-24); CHLORIDE 103 mmol/L (98-107); CREATININE 1.78 mg/dL (0.70-1.30); POTASSIUM 4.3 mmol/L (3.5-5.1); SGOT/AST 5 IU/L (3-35); SGPT/ALT 14 U/L (12-78); SODIUM 136 mmol/L (136-145); TOTAL PROTEIN 6.6 gm/dL (6.4-8.2)
[2018-05-28 01:14] LABS: TROPONIN I < 0.015 ng/ml (<0.045)
[2018-05-28 01:30] VITALS: BP 121/61
[2018-05-28 02:00] VITALS: BP 132/69
[2018-05-28 02:30] VITALS: BP 118/72; BP 128/66
[2018-05-28 04:11] LABS: BASO % 0.2 % (0.0-1.0); EOS # 0.2 10*3/uL (0.0-0.4); EOS % 4.5 % (1.0-4.0); HEMATOCRIT 30.3 % (42.0-52.0); HEMOGLOBIN 9.6 g/dl (14.0-18.0); LYMPH # 1.4 10*3/uL (1.3-4.4); LYMPH % 34.2 % (27.0-41.0); MEAN CELL VOLUME 87.3 fl (80.0-94.0); MEAN CORPUSCULAR HGB 27.7 pg (27.0-31.0); MEAN CORPUSCULAR HGB CONC 31.7 g/dl (33.0-37.0); MEAN PLATELET VOLUME 10.7 fl (9.6-12.3); MONO # 0.3 10*3/uL (0.1-1.0); MONO % 7.7 % (3.0-9.0); NEUT # 2.2 10*3/uL (2.3-7.9); NEUT % 52.7 % (47.0-73.0); PLATELET COUNT AUTOMATED 166 10*3/uL (130-400); RED BLOOD COUNT 3.47 10*6/uL (4.50-5.90); RED CELL DISTRI WIDTH 15.9 % (0-14.5); WHITE BLOOD COUNT 4.2 10*3/uL (4.8-10.8)
[2018-05-28 04:22] LABS: CREATININE 1.55 mg/dL (0.70-1.30); PHOSPHOROUS 3.8 mg/dL (2.5-4.9); POTASSIUM 4.4 mmol/L (3.5-5.1)
[2018-05-28 06:26] LABS: URINE BARBITURATES < 200 (200ng/ml); URINE BENZODIAZEPINES < 200 (200ng/ml); URINE COCAINE < 300 (300ng/ml); URINE METHADONE < 300 (300ng/ml); URINE OPIATES < 300 (300ng/ml)
[2018-05-28 06:35] LABS: URINE AMPHETAMINES < 1000 (1000ng/ml); URINE CANNABINOIDS (THC) < 50 (50ng/ml)
[2018-05-28 06:41] LABS: URINE PHENCYCLIDINE < 25 (25ng/ml)
[2018-05-28 08:00] VITALS: BP 149/82
== END 2018-05-28 11:00 | disposition home or self-care (01) | DRG 303 ==
LOC: ED 00:33 → EDHOLD 01:38 → 5E 01:38
PROVIDERS: Emergency Medicine Emergency Medical Services; Internal Medicine
DX: I25.119 Atherosclerotic heart disease of native coronary artery with unspecified angina pectoris (principal); E44.0 Moderate protein-calorie malnutrition; E11.22 Type 2 diabetes mellitus with diabetic chronic kidney disease; D68.59 Other primary thrombophilia; E11.65 Type 2 diabetes mellitus with hyperglycemia; E11.42 Type 2 diabetes mellitus with diabetic polyneuropathy; N18.3 Chronic kidney disease, stage 3 (moderate); I48.92 Unspecified atrial flutter; I50.32 Chronic diastolic (congestive) heart failure; E83.42 Hypomagnesemia; F10.920 Alcohol use, unspecified with intoxication, uncomplicated; N40.0 Benign prostatic hyperplasia without lower urinary tract symptoms; G89.29 Other chronic pain; J44.9 Chronic obstructive pulmonary disease, unspecified; F32.9 Major depressive disorder, single episode, unspecified; K21.9 Gastro-esophageal reflux disease without esophagitis; F41.1 Generalized anxiety disorder; M10.9 Gout, unspecified; E03.9 Hypothyroidism, unspecified; G40.909 Epilepsy, unspecified, not intractable, without status epilepticus; E78.2 Mixed hyperlipidemia; K44.9 Diaphragmatic hernia without obstruction or gangrene; E53.8 Deficiency of other specified B group vitamins; E66.01 Morbid (severe) obesity due to excess calories; Z96.641 Presence of right artificial hip joint; Z90.49 Acquired absence of other specified parts of digestive tract; Z89.412 Acquired absence of left great toe; Z80.8 Family history of malignant neoplasm of other organs or systems; Z79.4 Long term (current) use of insulin; Z88.8 Allergy status to other drugs, medicaments and biological substances; Z79.899 Other long term (current) drug therapy; Z86.73 Personal history of transient ischemic attack (TIA), and cerebral infarction without residual deficits; Z89.422 Acquired absence of other left toe(s); Z98.61 Coronary angioplasty status; Z87.891 Personal history of nicotine dependence; Z82.49 Family history of ischemic heart disease and other diseases of the circulatory system; Z83.3 Family history of diabetes mellitus; Z82.3 Family history of stroke; Z78.9 Other specified health status; Z68.36 Body mass index [BMI] 36.0-36.9, adult

== ENCOUNTER 2018-05-31 11:50 | Inpatient (IN) | payer OTHER, MEDICAID ==
[~2018-05-31] VITALS: Ht 172.7 cm; Wt 108.4 kg
--- NOTE | ~2018-05-31 | EKG ---
[place], [place] ELECTROCARDIOGRAM REPORT NAME: DEBORAH SANTACRUZ UNIT #: [id number] ROOM: 422 DOCTOR: RAFIA DRAFT REPORT BIRTHDATE: [birth year] [facility] Test Date: 2018-06-05 Test Time: 16:34:27 Pat Name: DEBORAH SANTACRUZ Department: Room: 422 1 Gender: M Hydrate Control Tender: : 1950 Requested By: CANDE HUFF Order Number: [id number] Reading MD: Hayder Cooper MD Measurements Intervals [place] Rate: 66 P: 260 AL: 261 QRS: 24 QRSD: 103 T: 92 QT: 454 QTc: 476 Interpretive Statements Sinus rhythm Prolonged AL interval Inferior infarct, old Anteroseptal infarct, old Compared to ECG 05/31/2018 15:24:21 Ectopic atrial rhythm now present First degree AV block now present Myocardial infarct finding now present Sinus rhythm no longer present Electronically Signed On 06-06-2018 11:12:03 PDT by Hayder Cooper MD CM:EKGRPT:ELECTROCARDIOGRAM REPORT 1634 1112 CANDE MEHTA DRAFT REPORT CANDE HUFF DO
--- NOTE | ~2018-05-31 | CON ---
[place], [place] REPORT OF CONSULTATION NAME: DEBORAH SANTACRUZ [facility] #: [id number] UNIT #: [id number] ROOM: 422 DOCTOR: BETHEL CHAO MD BIRTHDATE: [birth year] DOS: 06/02/2018 GASTROENDOSCOPIC CONSULTATION REPORT HISTORY OF PRESENT ILLNESS: The patient has presented with multiple problems, among which have been and right foot cellulitis which is undergoing investigation. His H and H at the time of admission was 9 and 29 with platelet count of 189. His INR was 1.0. Comprehensive metabolic panel with uncontrolled glucose of approximately 400, BUN and creatinine of 30 and 1.7 with GFR of 46. Electrolyte is balanced. Magnesium 1.4 and his albumin 2.8, alkaline phosphatase 124. Troponin was within normal limits. Chest x-ray was done and no acute pathology. His serum alcohol was 157. His hemoglobin A1c was greater than 10. The patient has been complaining of multiple issues. PAST MEDICAL HISTORY: Atrial fibrillation, BPH, coronary artery disease, morbid obesity, renal insufficiency, COPD, degenerative joint disease, diabetes, neuropathy, essential hypertension, GERD, and history of right foot ulceration. PAST SURGICAL HISTORY: Cholecystectomy, appendectomy, rotator cuff, post-amputation of left great toe, and status post incision and drainage previously. SOCIAL HISTORY: Passive smoker, heavy alcohol consumer. FAMILY HISTORY: Noncontributory except diabetes mellitus. ALLERGIES: TAZOBACTAM, PIPERACILLIN, VANCOMYCIN, DOXYCYCLINE. MEDICATIONS AT HOME: Reviewed. He is on Xarelto 20 mg daily. REVIEW OF SYSTEMS: HEENT: Denies double vision or blurred vision. RESPIRATORY: Denies acute shortness of breath; however, chronically short of breath. CARDIOVASCULAR: Denies chest pain; however, chronically subxiphoid pain. DIGESTIVE SYSTEM: No hematemesis, no hematochezia. PHYSICAL EXAMINATION: GENERAL: Morbidly obese patient. HEENT: Head is normocephalic, nontraumatic. Mouth and buccal mucosa benign. NECK: Supple. No thyromegaly, no cervical lymphadenopathy. CHEST: Symmetric anatomy. Decreased air entry in general. HEART: Normal sinus rhythm. No gallop, no murmur. ABDOMEN: Obese, large, soft. No hepato-organomegaly. Bowel sounds present. EXTREMITIES: Edema of the right foot with pre-markings for an incision and drainage. NEUROLOGIC: Alert and oriented to time, place, and person. IMPRESSION: 1. Anemia. [place], [place] REPORT OF CONSULTATION NAME: DEBORAH SANTACRUZ UNIT #: [id number] ROOM: 422 DOCTOR: BETHEL CHAO MD BIRTHDATE: [birth year] 2. Cellulitis of right foot. 3. Diabetes mellitus. 4. Alcohol intoxication. 5. Gastroesophageal reflux disease. 6. On anticoagulants. 7. Gout. 8. History of atrial fibrillation. 9. Coronary artery disease. 10. Seizure disorder. All have been recognized. PLAN AND DISCUSSION: We are going to do an EGD to assure that we do not have source of bleeding in upper GI tract. BETHEL CHAO MD CM:CONSTR:REPORT OF CONSULTATION 0933 06/02/18 1111 interface
--- NOTE | ~2018-05-31 | EKG ---
[place], [place] ELECTROCARDIOGRAM REPORT NAME: DEBORAH SANTACRUZ UNIT #: [id number] ROOM: 422 DOCTOR: RAFIA DRAFT REPORT BIRTHDATE: [birth year] [facility] Test Date: 2018-05-31 Test Time: 15:24:21 Pat Name: DEBORAH SANTACRUZ Department: Room: 422 1 Gender: M Cardiopulmonary Supervisor: : 1950 Requested By: URIEL HAWTHORNE Order Number: [id number] Reading MD: Cooper Thompson MD Measurements Intervals [place] Rate: 76 P: 46 MO: 206 QRS: 38 QRSD: 93 T: 24 QT: 396 QTc: 446 Interpretive Statements Sinus rhythm Poor precordial R-wave progression Compared to ECG 05/28/2018 06:57:02 No significant change Electronically Signed On 05-31-2018 19:22:41 PDT by Cooper Thompson MD CM:EKGRPT:ELECTROCARDIOGRAM REPORT 1524 1922 URIEL HAWTHORNE EPIPHANY DRAFT REPORT URIEL HAWTHORNE
--- NOTE | ~2018-05-31 | O ---
[place], [place] OPERATIVE NOTE NAME[id number] UNIT #: [id number] ROOM: 422 DOCTOR: BETHEL CHAO MD BIRTHDATE: [birth year] DOS: 06/02/2018 HISTORY: This is a 68-year-old who has presented with chief complaint of anemia, drop in H and H and multi other medical issues, alcohol intoxication, recreational drug history and diabetic foot ulcer complex. PROCEDURE: Today's procedure part of investigation is panendoscopy for anemia, drop in H and H. PREMEDICATION: Propofol. SCOPE: Olympus forward-viewing gastroscope Q10 video. REPORT: After putting the patient in left lateral position and application of lubricant to the scope, the scope was introduced. Thereafter, under direct visualization, advanced through the length of esophagus without difficulty. Gastric pouch was entered. Evidence of gastritis was seen. Antral erosions noticed. Duodenal bulb, second and third part within normal limits, no esophageal varicosity identified. No biopsy obtained from the antrum; however, photographic series were obtained for documentation. The biopsy was not obtained due to the fact the patient has been on Xarelto till yesterday. IMPRESSION: Gastritis, gastric erosions. PLAN AND DISCUSSION: Protonix 40 mg daily with holding Xarelto. The patient is undergoing diabetic foot ulcer management by Dr. Santos. Work in progress. BETHEL CHAO MD CM:OPRECORD:OPERATIVE NOTE 0959 1028 BETHEL CHAO MD 06/02/18 1027 interface
--- NOTE | ~2018-05-31 | PR ---
[place], [place] PROGRESS NOTE NAME: [id number] UNIT #: [id number] ROOM: 422 DOCTOR: BETHEL CHAO MD BIRTHDATE: [birth year] DOS: 06/04/2018 GASTROENDOSCOPIC REPORT HISTORY OF PRESENT ILLNESS: A 68-year-old patient who presented with chief complaint of epigastric distress. The patient underwent endoscopic evaluation, was found to have gastritis and gastric erosion. No acute bleeding was noticed. The patient did a history of ETOH and recreational drugs. He has been tolerating his diet. He has been complaining of nausea. His latest H and H is 10 and 31. His bowel movement is in order. His laboratory values were reviewed. CT scan of the abdomen of yesterday noticed. No acute process was found in the abdomen and compared to the last CT. REVIEW OF SYSTEMS: No hematemesis, no hematochezia, no shortness of breath, no chest pain, no nausea, some frequency of his stools secondary to contrast yesterday for a CT scan. PHYSICAL EXAMINATION: VITAL SIGNS: Stable. HEENT: Head normocephalic, nontraumatic. Mouth and buccal mucosa benign. NECK: Supple, no thyromegaly, no cervical lymphadenopathy. CHEST: Symmetric anatomy, equal expansion. Few scattered rhonchi. HEART: Normal sinus rhythm, no gallop, no murmur. ABDOMEN: Soft. No hepato-organomegaly. Bowel sounds present. No pulsatile mass. Obese. EXTREMITIES: 1+ edema bilaterally. NEUROLOGIC: Alert and oriented. IMPRESSION: Gastritis, borderline anemia. Other adjunctive diagnoses as outlined in consultation report. PLAN AND DISCUSSION: We are going to continue with supportive therapy for his COPD, atrial fibrillation, morbid obesity, degenerative joint disease, renal insufficiency, and diabetes mellitus. We are going to remain without a PPI management. Dietary modification given. [place], [place] PROGRESS NOTE NAME: DEBORAH SANTACRUZ UNIT #: [id number] ROOM: 422 DOCTOR: BETHEL CHAO MD BIRTHDATE: [birth year] BETHEL CHAO MD CM:RICHI 1231 1722 BETHEL CHAO MD 06/04/18 1720 interface
--- NOTE | ~2018-05-31 | EKG ---
[place], [place] ELECTROCARDIOGRAM REPORT NAME: DEBORAH SANTACRUZ UNIT #: [id number] ROOM: 422 DOCTOR: RAFIA DRAFT REPORT BIRTHDATE: [birth year] [facility] Test Date: 2018-06-04 Test Time: 10:23:51 Pat Name: DEBORAH SANTACRUZ Department: Room: 422 1 Gender: M Facility Operations Manager: : 1950 Requested By: URIEL HAWTHORNE Order Number: [id number] Reading MD: Measurements Intervals [place] Rate: 74 P: -15 NH: 271 QRS: 8 QRSD: 115 T: 35 QT: 417 QTc: 463 Interpretive Statements Sinus rhythm Prolonged [place] interval Nonspecific intraventricular conduction delay Inferior infarct, old Anterior infarct, old Lateral leads are also involved Baseline wander in lead(s) V4 Compared to ECG 05/31/2018 15:24:21 First degree AV block now present Intraventricular conduction delay now present Myocardial infarct finding now present CM:EKGRPT:ELECTROCARDIOGRAM REPORT 1023 0725 URIEL HAWTHORNE EPIPHANY DRAFT REPORT URIEL HAWTHORNE
--- NOTE | ~2018-05-31 | PR ---
[place], [place] PROGRESS NOTE [id number] UN[facility] #: [id number] ROOM: 422 DOCTOR: INGRID HOOVER,ARACELIS Guerrero BIRTHDATE: [birth year] DOS: 06/03/2018 TIME OF SERVICE: 11:00 a.m. SUBJECTIVE: The patient was seen in followup of acute kidney injury with volume and blood transfusion yesterday. His hemoglobin has improved. Blood pressure has stabilized. He is making a bit more urine. His creatinine has not significantly resolved yet, but is trending in positive directions. He is afebrile. His other vital signs are stable. His exam is otherwise unchanged. Plan will be continued gentle provision of volume as necessary for hypotensive events, but at this point if he is able to take orally, IV fluids can be discontinued and continue to hold other antihypertensive medications or diuretics for now. Case discussed with resident and nursing. ARACELIS QUINTERO MD CM:PNTRANS 22 0 ARACELIS QUINTERO MD 06/14/1820 interface
--- NOTE | ~2018-05-31 | PR ---
[place], [place] PROGRESS NOTE NAME: DEBORAH SANTACRUZ UNIT #: [id number] ROOM: 422 DOCTOR: RADHA MONCADA MD BIRTHDATE: [birth year] DOS: 06/05/2018 NEPHROLOGY FOLLOWUP NOTE SUBJECTIVE: The patient was seen and examined. He is awake and alert. He feels well. He is a poor historian. He hopes to go home. He was on room air. Denied shortness of breath. PHYSICAL EXAMINATION: VITAL SIGNS: Temperature 98.2, pulse 66, respiratory rate 20, blood pressure 128/78. HEENT: Shows no JVD. LUNGS: Fairly clear. HEART: S1, S2. No rub, thrill, or gallop. ABDOMEN: Soft, nontender. EXTREMITIES: With trace edema. LABORATORY DATA: Hemoglobin from yesterday 10.0, white count of 6.5. Chemistry from today showed sodium 143, potassium 5.4, CO2 of 26, BUN 21, creatinine 1.26, calcium 8.4, phosphorus 4.1, magnesium 1.9. ASSESSMENT AND PLAN: 1. Acute on chronic kidney disease. The patient's creatinine appears to be improved and likely now at baseline. Continue ongoing supportive care. His potassium is mildly elevated. Continue to monitor. Keep off ACEs and ARBs for now. 2. Hypertension. The patient has had recent low blood pressures. It seems he is now on midodrine. Keep off ACEs and ARBs at this time. 3. Anemia. Stable H and H. Transfuse as needed. 4. Osteomyelitis. The patient is on antibiotics. The patient states he is being discharged likely tomorrow. From renal standpoint, it is acceptable for discharge. He should follow up with Dr. Cates as an outpatient. We will sign off for now. [place], [place] PROGRESS NOTE NAME: DEBORAH SANTACRUZ UNIT #: [id number] ROOM: 422 DOCTOR: RADHA MONCADA MD BIRTHDATE: [birth year] RADHA MONCADA MD CM:PNTRANS 1413 2344 RADHA MONCADA MD 06/05/18 2342 interface
--- NOTE | ~2018-05-31 | CON ---
[place], [place] REPORT OF CONSULTATION NAME: DEBORAH SANTACRUZ UNIT #: [id number] ROOM: 422 DOCTOR: ARACELIS QUINTERO MD BIRTHDATE: [birth year] DOS: 06/02/2018 TIME: 11:45. HISTORY OF PRESENT ILLNESS: The patient is a 68-year-old gentleman with past medical history significant for chronic kidney disease with acute exacerbations on multiple occasions of COPD, uncontrolled hypertension, hyperlipidemia and congestive heart failure. The patient is admitted with cellulitis and shortness of breath, abdominal pain. GI has been consulted and there is note of hypotension with worsening anemia and decreased blood counts with hematochezia. The patient is not able to provide a full reliable history or medical history at this time. REVIEW OF SYSTEMS: Limited from the patient at this time due to current clinical condition. PAST MEDICAL, FAMILY AND SOCIAL HISTORY: Reviewed from the H and P. PHYSICAL EXAMINATION: VITAL SIGNS: Blood pressure 90/58, temperature 96.8, pulse 73, respiratory rate 16. GENERAL: The patient is ill appearing, older appearing than stated age, chronically ill gentleman. Work of breathing is increased as is fatigue and lethargy. The patient has no acute diaphoresis, but does appear to be working a bit harder and feels more fatigued and in pain. This seems to be worsening compared to earlier in the day according to nursing. LUNGS: His lung medellin are clear. His blood pressure is soft and he appears more pale than usual. SKIN: Without diffuse rashes otherwise. There are areas of cellulitis in the legs that are stable and dressed. ABDOMEN: There is no abdominal distention or rebound tenderness. No peritoneal signs. LABORATORY AND DIAGNOSTIC DATA: Reviewed from the EMR. ASSESSMENT AND PLAN: 1. Acute kidney injury, likely prerenal in nature. Continue to hold antihypertensive medications and diuretics and provide gentle IV fluid and/or blood products given the acute blood loss anemia, suspected secondary to gastrointestinal bleeding. 2. Gastroenterology has been consulted and plans are for an endoscopy and colonoscopy as necessary. 3. History of hypertension, now hypotension. Follow up for distributive shock and hypovolemic shock if there is a component of sepsis as well as acute loss of blood. Follow serial labs. No acute indication for dialysis at this time. [place], [place] REPORT OF CONSULTATION NAME: DEBORAH SANTACRUZ UNIT #: [id number] ROOM: 422 DOCTOR: INGRID HOOVER,ARACELIS Guerrero BIRTHDATE: [birth year] ARACELIS QUINTERO MD CM:CONSTR:REPORT OF CONSULTATION 2107 06/18/18 0716 interface
[2018-05-31 12:15] VITALS: BP 137/68
[2018-05-31 13:50] LABS: BASO % 0.6 % (0.0-1.0); EOS # 0.2 10*3/uL (0.0-0.4); EOS % 3.3 % (1.0-4.0); HEMATOCRIT 30.9 % (42.0-52.0); LYMPH # 1.7 10*3/uL (1.3-4.4); LYMPH % 31.2 % (27.0-41.0); MEAN CELL VOLUME 86.1 fl (80.0-94.0); MEAN CORPUSCULAR HGB 27.9 pg (27.0-31.0); MEAN CORPUSCULAR HGB CONC 32.4 g/dl (33.0-37.0); MEAN PLATELET VOLUME 10.9 fl (9.6-12.3); MONO # 0.4 10*3/uL (0.1-1.0); MONO % 7.4 % (3.0-9.0); NEUT # 3.1 10*3/uL (2.3-7.9); NEUT % 56.8 % (47.0-73.0); PLATELET COUNT AUTOMATED 214 10*3/uL (130-400); RED BLOOD COUNT 3.59 10*6/uL (4.50-5.90); RED CELL DISTRI WIDTH 15.5 % (0-14.5); WHITE BLOOD COUNT 5.4 10*3/uL (4.8-10.8)
[2018-05-31 14:12] LABS: ALBUMIN 2.9 gm/dl (3.1-4.5); CREATININE 1.53 mg/dL (0.70-1.30); POTASSIUM 4.1 mmol/L (3.5-5.1); TOTAL PROTEIN 6.8 gm/dL (6.4-8.2)
[2018-05-31 16:00] VITALS: BP 152/87
[2018-05-31 16:13] LABS: BILIRUBIN NEGATIVE (NEGATIVE); BLOOD NEGATIVE (NEGATIVE); CLARITY CLEAR (CLEAR); COLOR YELLOW (YELLOW); GLUCOSE NEGATIVE (NEGATIVE); KETONE NEGATIVE (NEGATIVE); LEUKO ESTERASE NEGATIVE (NEGATIVE); NITRITE NEGATIVE (NEGATIVE); PH 5.5 (5.0-9.0); UROBILINOGEN 0.2 E.U./dl (0.2-1.0)
[2018-05-31 16:19] LABS: BACTERIA 2+; RBC 0-2 rbc/hpf (0-2); WBC 16-20 wbc/hpf (0-5)
[2018-05-31 16:21] LABS: URINE AMPHETAMINES < 1000 (1000ng/ml); URINE BARBITURATES < 200 (200ng/ml); URINE BENZODIAZEPINES < 200 (200ng/ml); URINE CANNABINOIDS (THC) < 50 (50ng/ml); URINE COCAINE < 300 (300ng/ml); URINE METHADONE < 300 (300ng/ml); URINE OPIATES < 300 (300ng/ml); URINE PHENCYCLIDINE < 25 (25ng/ml)
[2018-06-01] VITALS: BP 151/76
[2018-06-01 05:50] LABS: BASO % 0.4 % (0.0-1.0); EOS # 0.2 10*3/uL (0.0-0.4); HEMOGLOBIN 8.7 g/dl (14.0-18.0); LYMPH # 1.7 10*3/uL (1.3-4.4); LYMPH % 35.1 % (27.0-41.0); MEAN CELL VOLUME 87.2 fl (80.0-94.0); MEAN CORPUSCULAR HGB 27.1 pg (27.0-31.0); MEAN CORPUSCULAR HGB CONC 31.1 g/dl (33.0-37.0); MEAN PLATELET VOLUME 11.1 fl (9.6-12.3); MONO # 0.4 10*3/uL (0.1-1.0); MONO % 8.1 % (3.0-9.0); NEUT # 2.6 10*3/uL (2.3-7.9); NEUT % 51.8 % (47.0-73.0); PLATELET COUNT AUTOMATED 185 10*3/uL (130-400); RED BLOOD COUNT 3.21 10*6/uL (4.50-5.90); RED CELL DISTRI WIDTH 15.6 % (0-14.5)
[2018-06-01 06:01] LABS: ALBUMIN 2.6 gm/dl (3.1-4.5); CREATININE 1.65 mg/dL (0.70-1.30); PHOSPHOROUS 4.1 mg/dL (2.5-4.9); POTASSIUM 4.1 mmol/L (3.5-5.1)
[2018-06-01 06:09] LABS: VALPROIC ACID (DEPAKENE) 13.8 ug/ml (50-100)
[2018-06-01 08:00] VITALS: BP 153/65
[2018-06-01 12:22] LABS: HEMATOCRIT 27.8 % (42.0-52.0); HEMOGLOBIN 8.6 g/dl (14.0-18.0)
[2018-06-01 16:00] VITALS: BP 107/57
[2018-06-02] VITALS (8 sets, daily range): BP systolic 90–116; BP diastolic 54–76
[2018-06-02 06:12] LABS: BASO % 0.4 % (0.0-1.0); EOS # 0.2 10*3/uL (0.0-0.4); HEMATOCRIT 26.3 % (42.0-52.0); HEMOGLOBIN 8.2 g/dl (14.0-18.0); LYMPH # 1.7 10*3/uL (1.3-4.4); MEAN CELL VOLUME 88.3 fl (80.0-94.0); MEAN CORPUSCULAR HGB 27.5 pg (27.0-31.0); MEAN CORPUSCULAR HGB CONC 31.2 g/dl (33.0-37.0); MEAN PLATELET VOLUME 11.2 fl (9.6-12.3); MONO # 0.3 10*3/uL (0.1-1.0); MONO % 7.5 % (3.0-9.0); NEUT # 2.3 10*3/uL (2.3-7.9); NEUT % 50.2 % (47.0-73.0); PLATELET COUNT AUTOMATED 165 10*3/uL (130-400); RED BLOOD COUNT 2.98 10*6/uL (4.50-5.90); RED CELL DISTRI WIDTH 15.9 % (0-14.5); RETICULOCYTE % 2.32 % (0.50-2.50); WHITE BLOOD COUNT 4.5 10*3/uL (4.8-10.8)
[2018-06-02 06:30] LABS: ALBUMIN 2.5 gm/dl (3.1-4.5); CREATININE 1.91 mg/dL (0.70-1.30); POTASSIUM 4.8 mmol/L (3.5-5.1); TOTAL PROTEIN 5.7 gm/dL (6.4-8.2)
[2018-06-02 07:43] LABS: FERRITIN 14.8 ng/mL (22.0-322.0)
[2018-06-02 10:01] LABS: PHOSPHOROUS 4.3 mg/dL (2.5-4.9)
[2018-06-03] VITALS (10 sets, daily range): BP systolic 107–155; BP diastolic 59–73
[2018-06-03 07:24] LABS: BASO % 0.5 % (0.0-1.0); EOS # 0.2 10*3/uL (0.0-0.4); EOS % 3.7 % (1.0-4.0); HEMOGLOBIN 8.1 g/dl (14.0-18.0); LYMPH # 1.4 10*3/uL (1.3-4.4); MEAN CELL VOLUME 88.4 fl (80.0-94.0); MEAN CORPUSCULAR HGB 27.6 pg (27.0-31.0); MEAN CORPUSCULAR HGB CONC 31.2 g/dl (33.0-37.0); MEAN PLATELET VOLUME 10.9 fl (9.6-12.3); MONO # 0.4 10*3/uL (0.1-1.0); MONO % 8.9 % (3.0-9.0); NEUT # 2.1 10*3/uL (2.3-7.9); NEUT % 50.7 % (47.0-73.0); PLATELET COUNT AUTOMATED 152 10*3/uL (130-400); RED BLOOD COUNT 2.94 10*6/uL (4.50-5.90); RED CELL DISTRI WIDTH 16.1 % (0-14.5); WHITE BLOOD COUNT 4.1 10*3/uL (4.8-10.8)
[2018-06-03 07:39] LABS: ALBUMIN 2.5 gm/dl (3.1-4.5); CREATININE 1.49 mg/dL (0.70-1.30); PHOSPHOROUS 3.2 mg/dL (2.5-4.9); POTASSIUM 4.9 mmol/L (3.5-5.1)
[2018-06-03 07:48] LABS: VALPROIC ACID (DEPAKENE) 28.8 ug/ml (50-100)
[2018-06-03 11:44] LABS: HEMATOCRIT 26.9 % (42.0-52.0); HEMOGLOBIN 8.3 g/dl (14.0-18.0)
[2018-06-03 21:07] LABS: HEMATOCRIT 30.3 % (42.0-52.0); HEMOGLOBIN 9.6 g/dl (14.0-18.0)
[2018-06-04] VITALS: BP 139/71
[2018-06-04 06:19] LABS: BASO % 0.5 % (0.0-1.0); EOS # 0.1 10*3/uL (0.0-0.4); EOS % 2.2 % (1.0-4.0); HEMATOCRIT 31.1 % (42.0-52.0); LYMPH # 2.2 10*3/uL (1.3-4.4); LYMPH % 33.8 % (27.0-41.0); MEAN CELL VOLUME 86.6 fl (80.0-94.0); MEAN CORPUSCULAR HGB 27.9 pg (27.0-31.0); MEAN CORPUSCULAR HGB CONC 32.2 g/dl (33.0-37.0); MEAN PLATELET VOLUME 10.6 fl (9.6-12.3); MONO # 0.5 10*3/uL (0.1-1.0); MONO % 7.1 % (3.0-9.0); NEUT # 3.6 10*3/uL (2.3-7.9); PLATELET COUNT AUTOMATED 172 10*3/uL (130-400); RED BLOOD COUNT 3.59 10*6/uL (4.50-5.90); RED CELL DISTRI WIDTH 15.9 % (0-14.5); WHITE BLOOD COUNT 6.5 10*3/uL (4.8-10.8)
[2018-06-04 07:03] LABS: ALBUMIN 2.7 gm/dl (3.1-4.5); BUN 21 mg/dl (7-24); CHLORIDE 108 mmol/L (98-107); CREATININE 1.22 mg/dL (0.70-1.30); PHOSPHOROUS 3.1 mg/dL (2.5-4.9); POTASSIUM 4.3 mmol/L (3.5-5.1); SODIUM 141 mmol/L (136-145)
[2018-06-04 08:00] VITALS: BP 167/70
[2018-06-04 12:31] VITALS: BP 150/75
[2018-06-04 16:50] VITALS: BP 129/66
[2018-06-04 20:00] VITALS: BP 148/71
[2018-06-05 07:25] LABS: ALBUMIN 2.6 gm/dl (3.1-4.5); ALKALINE PHOSPHATASE 105 U/L (45-117); BUN 21 mg/dl (7-24); CHLORIDE 108 mmol/L (98-107); CREATININE 1.26 mg/dL (0.70-1.30); PHOSPHOROUS 4.1 mg/dL (2.5-4.9); SGOT/AST 22 IU/L (3-35); SGPT/ALT 10 U/L (12-78); TOTAL PROTEIN 6.2 gm/dL (6.4-8.2)
[2018-06-05 07:39] LABS: SODIUM 143 mmol/L (136-145)
[2018-06-05 07:43] LABS: POTASSIUM 5.4 mmol/L (3.5-5.1)
[2018-06-05 08:00] VITALS: BP 128/78
[2018-06-05 15:59] VITALS: BP 140/70
[2018-06-06] VITALS: BP 141/68
[2018-06-06 08:00] VITALS: BP 142/74
[2018-06-06 09:02] LABS: BASO % 0.5 % (0.0-1.0); EOS # 0.2 10*3/uL (0.0-0.4); EOS % 2.7 % (1.0-4.0); HEMATOCRIT 31.8 % (42.0-52.0); HEMOGLOBIN 9.9 g/dl (14.0-18.0); LYMPH # 2.2 10*3/uL (1.3-4.4); LYMPH % 34.2 % (27.0-41.0); MEAN CELL VOLUME 88.6 fl (80.0-94.0); MEAN CORPUSCULAR HGB 27.6 pg (27.0-31.0); MEAN CORPUSCULAR HGB CONC 31.1 g/dl (33.0-37.0); MEAN PLATELET VOLUME 10.6 fl (9.6-12.3); MONO # 0.6 10*3/uL (0.1-1.0); NEUT # 3.3 10*3/uL (2.3-7.9); PLATELET COUNT AUTOMATED 172 10*3/uL (130-400); RED BLOOD COUNT 3.59 10*6/uL (4.50-5.90); RED CELL DISTRI WIDTH 15.6 % (0-14.5); WHITE BLOOD COUNT 6.4 10*3/uL (4.8-10.8)
[2018-06-06 09:29] LABS: BUN 24 mg/dl (7-24); CHLORIDE 106 mmol/L (98-107); CREATININE 1.24 mg/dL (0.70-1.30); POTASSIUM 4.6 mmol/L (3.5-5.1); SODIUM 140 mmol/L (136-145)
[2018-06-06 12:00] VITALS: BP 136/72
[2018-06-06 16:00] VITALS: BP 122/72
[2018-06-06 20:00] VITALS: BP 154/73
[2018-06-07] VITALS: BP 150/66
[2018-06-07 08:00] VITALS: BP 141/66
[2018-06-07 09:16] LABS: BASO % 0.6 % (0.0-1.0); EOS # 0.2 10*3/uL (0.0-0.4); EOS % 3.3 % (1.0-4.0); LYMPH # 1.7 10*3/uL (1.3-4.4); MEAN CELL VOLUME 89.1 fl (80.0-94.0); MEAN CORPUSCULAR HGB 27.9 pg (27.0-31.0); MEAN CORPUSCULAR HGB CONC 31.3 g/dl (33.0-37.0); MEAN PLATELET VOLUME 11.4 fl (9.6-12.3); MONO # 0.8 10*3/uL (0.1-1.0); MONO % 11.1 % (3.0-9.0); NEUT # 4.3 10*3/uL (2.3-7.9); NEUT % 58.9 % (47.0-73.0); PLATELET COUNT AUTOMATED 167 10*3/uL (130-400); RED BLOOD COUNT 3.59 10*6/uL (4.50-5.90); RED CELL DISTRI WIDTH 15.5 % (0-14.5); WHITE BLOOD COUNT 7.2 10*3/uL (4.8-10.8)
[2018-06-07 09:33] LABS: ALBUMIN 2.9 gm/dl (3.1-4.5); ALKALINE PHOSPHATASE 104 U/L (45-117); BUN 26 mg/dl (7-24); CHLORIDE 104 mmol/L (98-107); CREATININE 1.35 mg/dL (0.70-1.30); PHOSPHOROUS 3.5 mg/dL (2.5-4.9); POTASSIUM 4.6 mmol/L (3.5-5.1); SGOT/AST 11 IU/L (3-35); SGPT/ALT 8 U/L (12-78); SODIUM 138 mmol/L (136-145); TOTAL PROTEIN 6.5 gm/dL (6.4-8.2)
[2018-06-07] MEDS ORDERED: XARE20MG PO (12:05)
[2018-06-07] MEDS ORDERED: DIVALPROEX SOD500 M1 PO (12:05)
== END 2018-06-07 14:30 | disposition home or self-care (01) | DRG 623 ==
LOC: WOUNDCARE 11:50 → 4E 12:17
PROVIDERS: Internal Medicine; Registered Nurse; Student in an Organized Health Care Education/Training Program
PROC: 0QBN0ZX Excision of Right Metatarsal, Open Approach, Diagnostic (ICD-10-PCS; principal; 2018-06-02)
PROC: 0JBQ0ZZ Excision of Right Foot Subcutaneous Tissue and Fascia, Open Approach (ICD-10-PCS; principal; 2018-06-02)
PROC: 0DJ08ZZ Inspection of Upper Intestinal Tract, Via Natural or Artificial Opening Endoscopic (ICD-10-PCS; principal; 2018-06-02)
PROC: 30233N1 Transfusion of Nonautologous Red Blood Cells into Peripheral Vein, Percutaneous Approach (ICD-10-PCS; 2018-06-03)
DX: E11.69 Type 2 diabetes mellitus with other specified complication (principal); L03.115 Cellulitis of right lower limb; M86.171 Other acute osteomyelitis, right ankle and foot; N17.9 Acute kidney failure, unspecified; E44.0 Moderate protein-calorie malnutrition; E11.22 Type 2 diabetes mellitus with diabetic chronic kidney disease; E11.40 Type 2 diabetes mellitus with diabetic neuropathy, unspecified; I48.91 Unspecified atrial fibrillation; E87.2 Acidosis; E11.65 Type 2 diabetes mellitus with hyperglycemia; I48.92 Unspecified atrial flutter; I50.32 Chronic diastolic (congestive) heart failure; I13.0 Hypertensive heart and chronic kidney disease with heart failure and stage 1 through stage 4 chronic kidney disease, or unspecified chronic kidney disease; J44.9 Chronic obstructive pulmonary disease, unspecified; D50.9 Iron deficiency anemia, unspecified; I25.118 Atherosclerotic heart disease of native coronary artery with other forms of angina pectoris; E66.01 Morbid (severe) obesity due to excess calories; E78.2 Mixed hyperlipidemia; R07.9 Chest pain, unspecified; N18.3 Chronic kidney disease, stage 3 (moderate); K29.00 Acute gastritis without bleeding; N40.0 Benign prostatic hyperplasia without lower urinary tract symptoms; G89.29 Other chronic pain; F32.9 Major depressive disorder, single episode, unspecified; F41.1 Generalized anxiety disorder; K21.9 Gastro-esophageal reflux disease without esophagitis; M10.9 Gout, unspecified; E78.5 Hyperlipidemia, unspecified; E03.9 Hypothyroidism, unspecified; G40.909 Epilepsy, unspecified, not intractable, without status epilepticus; Z90.49 Acquired absence of other specified parts of digestive tract; M19.90 Unspecified osteoarthritis, unspecified site; B96.20 Unspecified Escherichia coli [E. coli] as the cause of diseases classified elsewhere; K44.9 Diaphragmatic hernia without obstruction or gangrene; Z96.641 Presence of right artificial hip joint; E83.42 Hypomagnesemia; F10.120 Alcohol abuse with intoxication, uncomplicated; Z22.322 Carrier or suspected carrier of Methicillin resistant Staphylococcus aureus; Z86.73 Personal history of transient ischemic attack (TIA), and cerebral infarction without residual deficits; Z95.5 Presence of coronary angioplasty implant and graft; Z89.412 Acquired absence of left great toe; Z87.891 Personal history of nicotine dependence; Z82.49 Family history of ischemic heart disease and other diseases of the circulatory system; Z83.3 Family history of diabetes mellitus; Z80.0 Family history of malignant neoplasm of digestive organs; Z80.52 Family history of malignant neoplasm of bladder; Z80.8 Family history of malignant neoplasm of other organs or systems; Z88.8 Allergy status to other drugs, medicaments and biological substances; Z79.899 Other long term (current) drug therapy; Z79.4 Long term (current) use of insulin; Z79.01 Long term (current) use of anticoagulants; Z68.36 Body mass index [BMI] 36.0-36.9, adult

== ENCOUNTER → 2018-06-08 | Outpatient (CLI) | payer OTHER, MEDICAID ==
[~2018-06-08] MED LIST changes: +DIVALPROEX SOD500 M1 PO
== END | disposition home or self-care (01) ==
LOC: WOUNDCARE 03:30 → RESCLI 11:49 → WOUNDCARE 13:52
DX: E11.621 Type 2 diabetes mellitus with foot ulcer (principal); L97.511 Non-pressure chronic ulcer of other part of right foot limited to breakdown of skin; L97.521 Non-pressure chronic ulcer of other part of left foot limited to breakdown of skin; L84 Corns and callosities; S90.852A Superficial foreign body, left foot, initial encounter; E11.22 Type 2 diabetes mellitus with diabetic chronic kidney disease; I12.9 Hypertensive chronic kidney disease with stage 1 through stage 4 chronic kidney disease, or unspecified chronic kidney disease; N18.3 Chronic kidney disease, stage 3 (moderate); E03.9 Hypothyroidism, unspecified; E11.40 Type 2 diabetes mellitus with diabetic neuropathy, unspecified; E78.5 Hyperlipidemia, unspecified; I48.92 Unspecified atrial flutter; J44.9 Chronic obstructive pulmonary disease, unspecified; Z87.891 Personal history of nicotine dependence; Z90.49 Acquired absence of other specified parts of digestive tract; Z89.412 Acquired absence of left great toe; Z89.422 Acquired absence of other left toe(s); Z96.641 Presence of right artificial hip joint; X58.XXXA Exposure to other specified factors, initial encounter; Y93.89 Activity, other specified; Y92.89 Other specified places as the place of occurrence of the external cause; Y99.8 Other external cause status

== ENCOUNTER 2018-06-15 22:39 | Emergency (ER) | payer OTHER, MEDICAID ==
[~2018-06-15] VITALS: Ht 182.8 cm; Wt 104.3 kg
[~2018-06-15 22:39] MED LIST changes: -CLEOCIN HCL300 MG PO; -DICYCLOMINE HCL10 MG PO; -INDOMETHACIN50 MG PO; -MUCINEX ER600 MG PO; -Meclizine25 MG PO; -Motrin,Rufen400 MG PO; -NOVOLOG FL100 UNIT/1 SC; -PROTONIX40 M1 PO
[2018-06-15 23:06] VITALS: BP 109/59
== END 2018-06-16 04:11 | disposition home or self-care (01) ==
LOC: ED 22:39
DX: I82.611 Acute embolism and thrombosis of superficial veins of right upper extremity (principal); I25.10 Atherosclerotic heart disease of native coronary artery without angina pectoris; J44.9 Chronic obstructive pulmonary disease, unspecified; M10.9 Gout, unspecified; G40.909 Epilepsy, unspecified, not intractable, without status epilepticus; M86.9 Osteomyelitis, unspecified; E03.9 Hypothyroidism, unspecified; E78.5 Hyperlipidemia, unspecified; K21.9 Gastro-esophageal reflux disease without esophagitis; E11.40 Type 2 diabetes mellitus with diabetic neuropathy, unspecified; I12.9 Hypertensive chronic kidney disease with stage 1 through stage 4 chronic kidney disease, or unspecified chronic kidney disease; E11.22 Type 2 diabetes mellitus with diabetic chronic kidney disease; N18.3 Chronic kidney disease, stage 3 (moderate); I48.92 Unspecified atrial flutter; F17.200 Nicotine dependence, unspecified, uncomplicated; Z79.4 Long term (current) use of insulin; Z86.73 Personal history of transient ischemic attack (TIA), and cerebral infarction without residual deficits; Z87.891 Personal history of nicotine dependence; Z88.1 Allergy status to other antibiotic agents; Z79.899 Other long term (current) drug therapy

== ENCOUNTER → 2018-06-15 | Outpatient (CLI) | payer OTHER, MEDICAID ==
[~2018-06-15] MED LIST changes: +CLEOCIN HCL300 MG PO; +DICYCLOMINE HCL10 MG PO; +INDOMETHACIN50 MG PO; +MUCINEX ER600 MG PO; +Meclizine25 MG PO; +Motrin,Rufen400 MG PO; +NOVOLOG FL100 UNIT/1 SC; +PROTONIX40 M1 PO
== END | disposition home or self-care (01) ==
LOC: WOUNDCARE 04:27
DX: E11.621 Type 2 diabetes mellitus with foot ulcer (principal); L97.511 Non-pressure chronic ulcer of other part of right foot limited to breakdown of skin; L97.528 Non-pressure chronic ulcer of other part of left foot with other specified severity; L84 Corns and callosities; E11.22 Type 2 diabetes mellitus with diabetic chronic kidney disease; I12.9 Hypertensive chronic kidney disease with stage 1 through stage 4 chronic kidney disease, or unspecified chronic kidney disease; N18.3 Chronic kidney disease, stage 3 (moderate); E03.9 Hypothyroidism, unspecified; E11.40 Type 2 diabetes mellitus with diabetic neuropathy, unspecified; E78.5 Hyperlipidemia, unspecified; I48.92 Unspecified atrial flutter; J44.9 Chronic obstructive pulmonary disease, unspecified; Z87.891 Personal history of nicotine dependence; Z96.641 Presence of right artificial hip joint; Z89.412 Acquired absence of left great toe; Z89.422 Acquired absence of other left toe(s)

== ENCOUNTER 2018-06-19 11:13 | Emergency (ER) | payer OTHER, MEDICAID ==
[~2018-06-19] VITALS: Ht 182.8 cm; Wt 106.1 kg
[2018-06-19 11:15] VITALS: BP 150/85
== END 2018-06-19 12:59 | disposition home or self-care (01) ==
LOC: ED 11:13
DX: S20.212A Contusion of left front wall of thorax, initial encounter (principal); I25.10 Atherosclerotic heart disease of native coronary artery without angina pectoris; I13.0 Hypertensive heart and chronic kidney disease with heart failure and stage 1 through stage 4 chronic kidney disease, or unspecified chronic kidney disease; I50.32 Chronic diastolic (congestive) heart failure; N18.3 Chronic kidney disease, stage 3 (moderate); J44.9 Chronic obstructive pulmonary disease, unspecified; E11.22 Type 2 diabetes mellitus with diabetic chronic kidney disease; M86.9 Osteomyelitis, unspecified; E66.01 Morbid (severe) obesity due to excess calories; E03.9 Hypothyroidism, unspecified; E78.5 Hyperlipidemia, unspecified; K21.9 Gastro-esophageal reflux disease without esophagitis; F17.200 Nicotine dependence, unspecified, uncomplicated; F14.10 Cocaine abuse, uncomplicated; Z88.1 Allergy status to other antibiotic agents; Z88.8 Allergy status to other drugs, medicaments and biological substances; Z79.899 Other long term (current) drug therapy; Z79.4 Long term (current) use of insulin; Z89.412 Acquired absence of left great toe; Z89.422 Acquired absence of other left toe(s); Z98.890 Other specified postprocedural states; W01.0XXA Fall on same level from slipping, tripping and stumbling without subsequent striking against object, initial encounter; Y93.89 Activity, other specified; Y92.89 Other specified places as the place of occurrence of the external cause; Y99.8 Other external cause status

== ENCOUNTER → 2018-07-02 | Outpatient (CLI) | payer OTHER, MEDICAID ==
[~2018-07-02] MED LIST changes: +CLEOCIN HCL300 MG PO; +DICYCLOMINE HCL10 MG PO; +INDOMETHACIN50 MG PO; +MUCINEX ER600 MG PO; +Meclizine25 MG PO; +Motrin,Rufen400 MG PO; +NOVOLOG FL100 UNIT/1 SC; +PROTONIX40 M1 PO
== END | disposition home or self-care (01) ==
LOC: WOUNDCARE 10:22
DX: E11.621 Type 2 diabetes mellitus with foot ulcer (principal); L97.511 Non-pressure chronic ulcer of other part of right foot limited to breakdown of skin; L84 Corns and callosities; E11.22 Type 2 diabetes mellitus with diabetic chronic kidney disease; I12.9 Hypertensive chronic kidney disease with stage 1 through stage 4 chronic kidney disease, or unspecified chronic kidney disease; N18.3 Chronic kidney disease, stage 3 (moderate); E11.65 Type 2 diabetes mellitus with hyperglycemia; E03.9 Hypothyroidism, unspecified; E11.40 Type 2 diabetes mellitus with diabetic neuropathy, unspecified; J44.9 Chronic obstructive pulmonary disease, unspecified; I48.92 Unspecified atrial flutter; Z87.891 Personal history of nicotine dependence

== ENCOUNTER → 2018-07-13 | Outpatient (CLI) | payer OTHER, MEDICAID | END | disposition home or self-care (01) | LOC: WOUNDCARE 10:42 | DX: E11.621 Type 2 diabetes mellitus with foot ulcer (principal); L97.516 Non-pressure chronic ulcer of other part of right foot with bone involvement without evidence of necrosis; E11.40 Type 2 diabetes mellitus with diabetic neuropathy, unspecified; E03.9 Hypothyroidism, unspecified; J44.9 Chronic obstructive pulmonary disease, unspecified; I48.92 Unspecified atrial flutter; E11.22 Type 2 diabetes mellitus with diabetic chronic kidney disease; I12.9 Hypertensive chronic kidney disease with stage 1 through stage 4 chronic kidney disease, or unspecified chronic kidney disease; N18.3 Chronic kidney disease, stage 3 (moderate); Z87.891 Personal history of nicotine dependence ==

== ENCOUNTER → 2018-07-16 | Outpatient (CLI) | payer OTHER, MEDICAID | END | disposition home or self-care (01) | LOC: WOUNDCARE 03:54 | DX: E11.621 Type 2 diabetes mellitus with foot ulcer (principal); L97.516 Non-pressure chronic ulcer of other part of right foot with bone involvement without evidence of necrosis; E11.22 Type 2 diabetes mellitus with diabetic chronic kidney disease; I12.9 Hypertensive chronic kidney disease with stage 1 through stage 4 chronic kidney disease, or unspecified chronic kidney disease; N18.3 Chronic kidney disease, stage 3 (moderate); E03.9 Hypothyroidism, unspecified; E11.40 Type 2 diabetes mellitus with diabetic neuropathy, unspecified; E78.5 Hyperlipidemia, unspecified; I10 Essential (primary) hypertension; J44.9 Chronic obstructive pulmonary disease, unspecified; I48.92 Unspecified atrial flutter; Z87.891 Personal history of nicotine dependence ==

== ENCOUNTER → 2018-07-22 | Outpatient (CLI) | payer OTHER, MEDICAID | END | disposition home or self-care (01) | LOC: WOUNDCARE 09:15 | DX: E11.621 Type 2 diabetes mellitus with foot ulcer (principal); L97.516 Non-pressure chronic ulcer of other part of right foot with bone involvement without evidence of necrosis; E11.40 Type 2 diabetes mellitus with diabetic neuropathy, unspecified; S90.852D Superficial foreign body, left foot, subsequent encounter; E11.65 Type 2 diabetes mellitus with hyperglycemia; E11.22 Type 2 diabetes mellitus with diabetic chronic kidney disease; I12.9 Hypertensive chronic kidney disease with stage 1 through stage 4 chronic kidney disease, or unspecified chronic kidney disease; N18.3 Chronic kidney disease, stage 3 (moderate); E03.9 Hypothyroidism, unspecified; E78.5 Hyperlipidemia, unspecified; J44.9 Chronic obstructive pulmonary disease, unspecified; I48.92 Unspecified atrial flutter; Z87.891 Personal history of nicotine dependence; X58.XXXA Exposure to other specified factors, initial encounter; Y93.89 Activity, other specified; Y92.89 Other specified places as the place of occurrence of the external cause; Y99.8 Other external cause status ==

== ENCOUNTER 2018-07-24 15:54 | Inpatient (IN) | payer OTHER, MEDICAID ==
[~2018-07-24] VITALS: Ht 182.8 cm; Wt 108.9 kg
--- NOTE | ~2018-07-24 | PR ---
[place], [place] PROGRESS NOTE NAME: DEBORAH SANTACRUZ UNIT #: [id number] ROOM: 424 DOCTOR: GUZMAN HOOVER,EVETTE BIRTHDATE: [birth year] DOS: 07/28/2018 I agree with the assessment and plan made by the certified medical asst Dr. Holder. I had a [id number] encounter. Reviewed imaging and labs and made the necessary changes in the note. Ara Hinds MD CM:PNTRANS 1654 EVETTE HINDS MD 08/24/18 0234 interface
--- NOTE | ~2018-07-24 | EKG ---
[place], [place] ELECTROCARDIOGRAM REPORT NAME: DEBORAH SANTACRUZ UNIT #: [id number] ROOM: 424 DOCTOR: RAFIA DRAFT REPORT BIRTHDATE: [birth year] [facility] Test Date: 2018-07-28 Test Time: 10:03:35 Pat Name: DEBORAH SANTACRUZ Department: Room: 424 1 Gender: M Disintegrator Feeder: : 1950 Requested By: LUIS QURESHI Order Number: [id number] Reading MD: Measurements Intervals [place] Rate: 58 P: -14 IN: 236 QRS: 3 QRSD: 102 T: 61 QT: 442 QTc: 435 Interpretive Statements Sinus rhythm Prolonged [place] interval Inferior infarct, old Compared to ECG 07/19/2018 13:01:41 Myocardial infarct finding now present Left bundle-branch block no longer present CM:EKGRPT:ELECTROCARDIOGRAM REPORT 1003 0706 LUIS MEHTA DRAFT REPORT LUIS QURESHI DO
--- NOTE | ~2018-07-24 | EKG ---
[place], [place] ELECTROCARDIOGRAM REPORT NAME: DEBORAH SANTACRUZ UNIT #: [id number] ROOM: 424 DOCTOR: RAFIA DRAFT REPORT BIRTHDATE: [birth year] [facility] Test Date: 2018-07-28 Test Time: 00:22:39 Pat Name: DEBORAH SANTACRUZ Department: Room: 424 1 Gender: M Gallery Assistant: : 1950 Requested By: LUIS QURESHI Order Number: [id number] Reading MD: Measurements Intervals [place] Rate: 72 P: -30 DE: 235 QRS: 10 QRSD: 100 T: 42 QT: 405 QTc: 444 Interpretive Statements Sinus rhythm Prolonged [place] interval Inferior infarct, old Consider anterior infarct Compared to ECG 07/19/2018 13:01:41 Myocardial infarct finding now present Left bundle-branch block no longer present CM:EKGRPT:ELECTROCARDIOGRAM REPORT LUIS MEHTA DRAFT REPORT LUIS QURESHI DO
--- NOTE | ~2018-07-24 | O ---
[place], [place] OPERATIVE NOTE NAME: DEBORAH SANTACRUZ [facility] #: [id number] UNIT #: [id number] ROOM: 424 DOCTOR: OUSMANE HONG MD BIRTHDATE: [birth year] DOS: 07/28/2018 SURGEON: Ousmane Hong MD. ASSISTANTS: Balwinder Daniels, PGY2, DPM and Kaye Fine MS3. PREOPERATIVE DIAGNOSIS: Osteomyelitis, fifth metatarsal head, right foot ulcer, lateral fifth metatarsal head, right. POSTOPERATIVE DIAGNOSIS: Osteomyelitis, fifth metatarsal head, right foot ulcer, lateral fifth metatarsal head, right. PROCEDURE: Right foot excisional debridement, bone biopsy of fifth metatarsal head. ANESTHESIA: MAC with local. HEMOSTASIS: None. ESTIMATED BLOOD LOSS: Less than 5 mL. MATERIALS: 1-0 nylon and 1/4 inch iodoform packing. INJECTABLES: 10 mL of 0.25 Marcaine plain. PATHOLOGY: Fifth metatarsal head. MICROBIOLOGY: Fifth metatarsal head and anaerobic, aerobic stain. COMPLICATIONS: None. DESCRIPTION OF PROCEDURE: Following satisfactory preop evaluation, the patient was brought into the OR and placed on the OR table in the supine position. MAC sedation was administered by anesthesia team. Following sedation of 10 mL of 0.25% Marcaine plain and ring block type fashion to the fifth metatarsal proximally, the foot was then prepped and draped in the usual sterile manner and lower down to the surgical field. Attention then was directed to the lateral aspect of the fifth metatarsal where there was noted to be an approximate 1 cm x 1 cm ulceration, probing to bone. Using a 15 blade, a skin incision was made around the ulcer edges, debriding any nonvital and nonviable tissue including necrotic and infected tissue. Hemostasis was achieved by pressure. The subcutaneous layers followed by the periosteum were then reflected utilizing a blunt dissection and a 15 blade exposing the distal half of the fifth metatarsal head. At this time, the metatarsal head was assessed as for quality. The bone was penetrated using blunt instrumentation and the bone quality was noted to be of poor quality. At this time, curettes were utilized to take a lateral portion of the fifth metatarsal head, which was handed off the field and sent for pathology and permanent stain. Another specimen of the bone was taken for microbiology, handed off the field. At this time, a Culturette was utilized to swab the soft tissues and was again passed off the field. The cavity was then [place], [place] OPERATIVE NOTE NAME: DEBORAH SANTACRUZ UNIT #: [id number] ROOM: 424 DOCTOR: HAL HOOVER,OUSMANE SALDIVAR BIRTHDATE: [birth year] inspected for any loose bony fragments, any spicules remaining on the fifth metatarsal remnant. They were removed using a pickup and 15 blades as well as planed with a file. All nonviable tissue was removed including the base of the skin ulcer. The wound was then flushed with copious amounts of normal saline. At this time, a 1-0 nylon suture was utilized for the purpose of primary closure on followup appointments. The ends of the suture were not tied and no reapproximation was made at this time. Plans are to primarily close in clinic once infection has subsided. Quarter inch iodoform packing was placed into the wound loosely to avoid any vascular complications or prevent any granulation from occurring. The dressings were as follows, 4 x 4, sterile gauze, 2 ABDs, 1 Kerlix and 1 Yariel to secure the dry sterile dressings. The patient tolerated the anesthesia and the procedure well, was transported to the PACU with vital signs stable and vascular status intact to the right foot. There was adequate capillary refill time to the fifth toe. Orders for the following were written: 1. Allowed partial weightbearing with a walker and surgical shoe to the right foot. 2. Elevate right leg. 3. Keep dressings clean, dry and intact. 4. No ice to the right lower extremity. 5. Discharge per anesthesia. 6. Follow up with Dr. Hong in the [facility]. OUSMANE HONG MD CM:OPRECORD:OPERATIVE NOTE 1326 1629 OUSMANE HONG MD 07/28/18 0727 interface
--- NOTE | ~2018-07-24 | EKG ---
[place], [place] ELECTROCARDIOGRAM REPORT NAME: DEBORAH SANTACRUZ UNIT #: [id number] ROOM: 424 DOCTOR: RAFIA DRAFT REPORT BIRTHDATE: [birth year] [facility] Test Date: 2018-07-28 Test Time: 02:59:54 Pat Name: DEBORAH SANTACRUZ Department: Room: 424 1 Gender: M Patient Intake Representative: ANTHONY : 1950 Requested By: LUIS QURESHI Order Number: [id number] Reading MD: Measurements Intervals [place] Rate: 67 P: 4 TX: 238 QRS: 5 QRSD: 101 T: 45 QT: 427 QTc: 451 Interpretive Statements Sinus rhythm Prolonged [place] interval Inferior infarct, old Anterior infarct, old Compared to ECG 07/19/2018 13:01:41 Myocardial infarct finding now present Left bundle-branch block no longer present CM:EKGRPT:ELECTROCARDIOGRAM REPORT 0259 0002 LUIS MEHTA DRAFT REPORT LUIS QURESHI DO
[~2018-07-24 15:54] MED LIST changes: -DICYCLOMINE HCL10 MG PO; -INDOMETHACIN50 MG PO; -MUCINEX ER600 MG PO; -Meclizine25 MG PO; -Motrin,Rufen400 MG PO; -NOVOLOG FL100 UNIT/1 SC; -PROTONIX40 M1 PO
[2018-07-24 15:55] VITALS: BP 166/82
[2018-07-24 17:04] LABS: BASO % 0.5 % (0.0-1.0); EOS # 0.3 10*3/uL (0.0-0.4); HEMATOCRIT 33.3 % (42.0-52.0); HEMOGLOBIN 10.7 g/dl (14.0-18.0); LYMPH # 2.3 10*3/uL (1.3-4.4); MEAN CELL VOLUME 92.5 fl (80.0-94.0); MEAN CORPUSCULAR HGB 29.7 pg (27.0-31.0); MEAN CORPUSCULAR HGB CONC 32.1 g/dl (33.0-37.0); MEAN PLATELET VOLUME 10.6 fl (9.6-12.3); MONO # 0.6 10*3/uL (0.1-1.0); MONO % 8.7 % (3.0-9.0); NEUT # 3.9 10*3/uL (2.3-7.9); NEUT % 53.8 % (47.0-73.0); PLATELET COUNT AUTOMATED 240 10*3/uL (130-400); WHITE BLOOD COUNT 7.3 10*3/uL (4.8-10.8)
[2018-07-24 17:20] LABS: ACT PARTIAL THROMBO TIME 47.2 SECONDS (20.8-31.5); INTERNATIONAL NORM RATIO 1.7 (2.0-3.5)
[2018-07-24 17:24] LABS: ALKALINE PHOSPHATASE 124 U/L (45-117); BUN 24 mg/dl (7-24); CHLORIDE 109 mmol/L (98-107); CREATININE 1.42 mg/dL (0.70-1.30); POTASSIUM 4.4 mmol/L (3.5-5.1); SGOT/AST 24 IU/L (3-35); SGPT/ALT 27 U/L (12-78); SODIUM 142 mmol/L (136-145); TOTAL PROTEIN 7.3 gm/dL (6.4-8.2)
[2018-07-24 17:25] LABS: TROPONIN I < 0.015 ng/ml (<0.045)
[2018-07-24 18:00] VITALS: BP 167/76
[2018-07-24 18:20] VITALS: BP 167/76
[2018-07-24] MEDS ORDERED: MAGOX 400400 MG PO (18:32)
[2018-07-24 19:07] LABS: BILIRUBIN NEGATIVE (NEGATIVE); BLOOD TRACE-LYSED (NEGATIVE); CLARITY CLEAR (CLEAR); COLOR YELLOW (YELLOW); GLUCOSE NEGATIVE (NEGATIVE); KETONE NEGATIVE (NEGATIVE); LEUKO ESTERASE NEGATIVE (NEGATIVE); NITRITE NEGATIVE (NEGATIVE); UROBILINOGEN 0.2 E.U./dl (0.2-1.0)
[2018-07-24 19:23] LABS: BACTERIA 1+; RBC 0-2 rbc/hpf (0-2); WBC 0-2 wbc/hpf (0-5)
[2018-07-24 20:00] VITALS: BP 151/66
[2018-07-25] VITALS: BP 152/62
[2018-07-25 07:06] LABS: BASO % 0.7 % (0.0-1.0); EOS # 0.3 10*3/uL (0.0-0.4); EOS % 5.2 % (1.0-4.0); HEMATOCRIT 31.9 % (42.0-52.0); HEMOGLOBIN 10.1 g/dl (14.0-18.0); LYMPH # 1.6 10*3/uL (1.3-4.4); LYMPH % 28.1 % (27.0-41.0); MEAN CELL VOLUME 94.1 fl (80.0-94.0); MEAN CORPUSCULAR HGB 29.8 pg (27.0-31.0); MEAN CORPUSCULAR HGB CONC 31.7 g/dl (33.0-37.0); MEAN PLATELET VOLUME 10.5 fl (9.6-12.3); MONO # 0.5 10*3/uL (0.1-1.0); MONO % 8.8 % (3.0-9.0); NEUT # 3.1 10*3/uL (2.3-7.9); NEUT % 56.3 % (47.0-73.0); PLATELET COUNT AUTOMATED 183 10*3/uL (130-400); RED BLOOD COUNT 3.39 10*6/uL (4.50-5.90); RED CELL DISTRI WIDTH 14.9 % (0-14.5); WHITE BLOOD COUNT 5.6 10*3/uL (4.8-10.8)
[2018-07-25 07:42] LABS: CREATININE 1.58 mg/dL (0.70-1.30); PHOSPHOROUS 3.8 mg/dL (2.5-4.9); POTASSIUM 4.4 mmol/L (3.5-5.1)
[2018-07-25 08:00] VITALS: BP 122/68
[2018-07-25 12:00] VITALS: BP 159/74
[2018-07-25 16:00] VITALS: BP 149/74
[2018-07-25 20:00] VITALS: BP 146/60; BP 150/63
[2018-07-26] VITALS: BP 119/82; BP 132/72
[2018-07-26 07:00] LABS: BUN 31 mg/dl (7-24); CHLORIDE 109 mmol/L (98-107); CREATININE 1.38 mg/dL (0.70-1.30); POTASSIUM 4.6 mmol/L (3.5-5.1); SODIUM 140 mmol/L (136-145)
[2018-07-26 12:00] VITALS: BP 117/63
[2018-07-26 16:00] VITALS: BP 113/72
[2018-07-26 20:00] VITALS: BP 126/57
[2018-07-27] VITALS: BP 121/62
[2018-07-27 08:00] VITALS: BP 129/72
[2018-07-27 12:00] VITALS: BP 131/72
[2018-07-27 16:00] VITALS: BP 114/51
[2018-07-27 20:00] VITALS: BP 139/63
[2018-07-28] VITALS (9 sets, daily range): BP systolic 89–164; BP diastolic 52–86
[2018-07-28 00:26] LABS: BASO % 0.8 % (0.0-1.0); EOS # 0.3 10*3/uL (0.0-0.4); EOS % 5.1 % (1.0-4.0); HEMATOCRIT 32.6 % (42.0-52.0); HEMOGLOBIN 10.3 g/dl (14.0-18.0); LYMPH # 1.8 10*3/uL (1.3-4.4); LYMPH % 33.4 % (27.0-41.0); MEAN CELL VOLUME 93.9 fl (80.0-94.0); MEAN CORPUSCULAR HGB 29.7 pg (27.0-31.0); MEAN CORPUSCULAR HGB CONC 31.6 g/dl (33.0-37.0); MEAN PLATELET VOLUME 10.2 fl (9.6-12.3); MONO # 0.5 10*3/uL (0.1-1.0); MONO % 9.1 % (3.0-9.0); NEUT # 2.7 10*3/uL (2.3-7.9); NEUT % 50.8 % (47.0-73.0); PLATELET COUNT AUTOMATED 184 10*3/uL (130-400); RED BLOOD COUNT 3.47 10*6/uL (4.50-5.90); WHITE BLOOD COUNT 5.3 10*3/uL (4.8-10.8)
[2018-07-28 00:37] LABS: ACT PARTIAL THROMBO TIME 38.7 SECONDS (20.8-31.5); INTERNATIONAL NORM RATIO 1.4 (2.0-3.5)
[2018-07-28 00:45] LABS: ALBUMIN 2.7 gm/dl (3.1-4.5); ALKALINE PHOSPHATASE 103 U/L (45-117); BUN 35 mg/dl (7-24); CHLORIDE 110 mmol/L (98-107); CREATININE 1.38 mg/dL (0.70-1.30); POTASSIUM 4.9 mmol/L (3.5-5.1); SGOT/AST 17 IU/L (3-35); SGPT/ALT 24 U/L (12-78); SODIUM 141 mmol/L (136-145); TOTAL PROTEIN 6.4 gm/dL (6.4-8.2)
[2018-07-28 00:47] LABS: TROPONIN I < 0.015 ng/ml (<0.045)
[2018-07-28 06:35] LABS: BASO % 0.6 % (0.0-1.0); EOS # 0.2 10*3/uL (0.0-0.4); EOS % 4.2 % (1.0-4.0); HEMATOCRIT 32.2 % (42.0-52.0); HEMOGLOBIN 10.3 g/dl (14.0-18.0); LYMPH % 39.1 % (27.0-41.0); MEAN CELL VOLUME 93.3 fl (80.0-94.0); MEAN CORPUSCULAR HGB 29.9 pg (27.0-31.0); MEAN PLATELET VOLUME 10.1 fl (9.6-12.3); MONO # 0.5 10*3/uL (0.1-1.0); MONO % 9.1 % (3.0-9.0); NEUT # 2.3 10*3/uL (2.3-7.9); NEUT % 46.2 % (47.0-73.0); PLATELET COUNT AUTOMATED 178 10*3/uL (130-400); RED BLOOD COUNT 3.45 10*6/uL (4.50-5.90); RED CELL DISTRI WIDTH 14.9 % (0-14.5); WHITE BLOOD COUNT 5.1 10*3/uL (4.8-10.8)
[2018-07-28 06:41] LABS: BUN 31 mg/dl (7-24); CHLORIDE 111 mmol/L (98-107); CREATININE 1.29 mg/dL (0.70-1.30); SODIUM 144 mmol/L (136-145)
[2018-07-29] VITALS: BP 124/66
[2018-07-29 06:14] LABS: BASO % 0.7 % (0.0-1.0); EOS # 0.3 10*3/uL (0.0-0.4); EOS % 4.9 % (1.0-4.0); HEMATOCRIT 31.7 % (42.0-52.0); LYMPH # 1.5 10*3/uL (1.3-4.4); LYMPH % 27.4 % (27.0-41.0); MEAN CELL VOLUME 93.8 fl (80.0-94.0); MEAN CORPUSCULAR HGB 29.6 pg (27.0-31.0); MEAN CORPUSCULAR HGB CONC 31.5 g/dl (33.0-37.0); MEAN PLATELET VOLUME 10.6 fl (9.6-12.3); MONO # 0.4 10*3/uL (0.1-1.0); MONO % 7.3 % (3.0-9.0); NEUT # 3.2 10*3/uL (2.3-7.9); NEUT % 59.2 % (47.0-73.0); PLATELET COUNT AUTOMATED 185 10*3/uL (130-400); RED BLOOD COUNT 3.38 10*6/uL (4.50-5.90); RED CELL DISTRI WIDTH 14.7 % (0-14.5); WHITE BLOOD COUNT 5.5 10*3/uL (4.8-10.8)
[2018-07-29 06:47] LABS: BUN 30 mg/dl (7-24); CHLORIDE 108 mmol/L (98-107); CREATININE 1.37 mg/dL (0.70-1.30); POTASSIUM 4.7 mmol/L (3.5-5.1); SODIUM 139 mmol/L (136-145)
[2018-07-29 08:00] VITALS: BP 129/70
[2018-07-29 12:00] VITALS: BP 130/77
[2018-07-29 16:00] VITALS: BP 114/53
[2018-07-29 20:00] VITALS: BP 128/61
[2018-07-30] VITALS: BP 141/75
[2018-07-30 07:03] LABS: BASO % 0.5 % (0.0-1.0); EOS # 0.2 10*3/uL (0.0-0.4); HEMATOCRIT 30.3 % (42.0-52.0); HEMOGLOBIN 9.7 g/dl (14.0-18.0); LYMPH # 1.9 10*3/uL (1.3-4.4); LYMPH % 33.5 % (27.0-41.0); MEAN CELL VOLUME 93.8 fl (80.0-94.0); MEAN PLATELET VOLUME 10.7 fl (9.6-12.3); MONO # 0.5 10*3/uL (0.1-1.0); MONO % 9.3 % (3.0-9.0); NEUT % 52.3 % (47.0-73.0); PLATELET COUNT AUTOMATED 168 10*3/uL (130-400); RED BLOOD COUNT 3.23 10*6/uL (4.50-5.90); RED CELL DISTRI WIDTH 14.7 % (0-14.5); WHITE BLOOD COUNT 5.7 10*3/uL (4.8-10.8)
[2018-07-30 07:14] LABS: BUN 33 mg/dl (7-24); CHLORIDE 110 mmol/L (98-107); CREATININE 1.35 mg/dL (0.70-1.30); SODIUM 143 mmol/L (136-145)
[2018-07-30 08:00] VITALS: BP 153/75
[2018-07-30 12:00] VITALS: BP 120/54
[2018-07-30 16:00] VITALS: BP 144/76
[2018-08-16] MEDS ORDERED: NEURONTIN300 MG PO (18:33)
[2018-09-01] MEDS ORDERED: ZOFRAN ODT4 MG SL (19:51)
[2018-09-24] MEDS ORDERED: Meclizine25 MG PO (21:36)
[2018-09-27] MEDS ORDERED: PREDNISONE20 M1 PO (10:55)
[2018-09-27] MEDS ORDERED: MUCINEX ER600 MG PO (10:55)
[2018-09-27] MEDS ORDERED: LEVAQUIN500 M2 PO (10:55)
== END 2018-07-30 18:03 | disposition home or self-care (01) | DRG 622 ==
LOC: ED 15:54 → 4E 16:22 → EDHOLD 16:22 → 4E 16:46
PROVIDERS: Emergency Medicine; Family Medicine; Internal Medicine; Student in an Organized Health Care Education/Training Program
DX: E11.69 Type 2 diabetes mellitus with other specified complication (principal); L89.893 Pressure ulcer of other site, stage 3; L03.115 Cellulitis of right lower limb; E87.2 Acidosis; E44.0 Moderate protein-calorie malnutrition; I50.32 Chronic diastolic (congestive) heart failure; I13.0 Hypertensive heart and chronic kidney disease with heart failure and stage 1 through stage 4 chronic kidney disease, or unspecified chronic kidney disease; L97.506 Non-pressure chronic ulcer of other part of unspecified foot with bone involvement without evidence of necrosis; I48.92 Unspecified atrial flutter; M86.8X7 Other osteomyelitis, ankle and foot; Z68.32 Body mass index [BMI] 32.0-32.9, adult; R21 Rash and other nonspecific skin eruption; L97.512 Non-pressure chronic ulcer of other part of right foot with fat layer exposed; D64.9 Anemia, unspecified; E87.8 Other disorders of electrolyte and fluid balance, not elsewhere classified; K21.9 Gastro-esophageal reflux disease without esophagitis; N40.0 Benign prostatic hyperplasia without lower urinary tract symptoms; M1A.9XX0 Chronic gout, unspecified, without tophus (tophi); G40.909 Epilepsy, unspecified, not intractable, without status epilepticus; M51.36 Other intervertebral disc degeneration, lumbar region; M43.16 Spondylolisthesis, lumbar region; G89.29 Other chronic pain; F41.1 Generalized anxiety disorder; F32.9 Major depressive disorder, single episode, unspecified; E03.9 Hypothyroidism, unspecified; E11.41 Type 2 diabetes mellitus with diabetic mononeuropathy; J44.9 Chronic obstructive pulmonary disease, unspecified; N18.3 Chronic kidney disease, stage 3 (moderate); E53.8 Deficiency of other specified B group vitamins; E11.22 Type 2 diabetes mellitus with diabetic chronic kidney disease; I25.10 Atherosclerotic heart disease of native coronary artery without angina pectoris; Z96.641 Presence of right artificial hip joint; E11.621 Type 2 diabetes mellitus with foot ulcer; R19.7 Diarrhea, unspecified; Z79.4 Long term (current) use of insulin; Z88.8 Allergy status to other drugs, medicaments and biological substances; Z79.899 Other long term (current) drug therapy; Z86.73 Personal history of transient ischemic attack (TIA), and cerebral infarction without residual deficits; Z95.5 Presence of coronary angioplasty implant and graft; Z90.49 Acquired absence of other specified parts of digestive tract; Z89.432 Acquired absence of left foot; Z89.422 Acquired absence of other left toe(s); Z82.49 Family history of ischemic heart disease and other diseases of the circulatory system; Z82.3 Family history of stroke; Z83.3 Family history of diabetes mellitus; Z85.89 Personal history of malignant neoplasm of other organs and systems; Z91.19 Patient's noncompliance with other medical treatment and regimen; Z22.322 Carrier or suspected carrier of Methicillin resistant Staphylococcus aureus

== ENCOUNTER 2018-07-31 22:37 | Emergency (ER) | payer OTHER, MEDICAID ==
[~2018-07-31] VITALS: Ht 182.8 cm; Wt 106.6 kg
[2018-07-31 22:42] VITALS: BP 96/51
[2018-08-16] MEDS ORDERED: NEURONTIN300 MG PO (18:33)
[2018-09-01] MEDS ORDERED: ZOFRAN ODT4 MG SL (19:51)
[2018-09-24] MEDS ORDERED: Meclizine25 MG PO (21:36)
[2018-09-27] MEDS ORDERED: LEVAQUIN500 M2 PO (10:55)
[2018-09-27] MEDS ORDERED: MUCINEX ER600 MG PO (10:55)
[2018-09-27] MEDS ORDERED: PREDNISONE20 M1 PO (10:55)
== END 2018-08-01 00:23 | disposition home or self-care (01) ==
LOC: ED 22:37
DX: Z48.01 Encounter for change or removal of surgical wound dressing (principal); I25.10 Atherosclerotic heart disease of native coronary artery without angina pectoris; I13.0 Hypertensive heart and chronic kidney disease with heart failure and stage 1 through stage 4 chronic kidney disease, or unspecified chronic kidney disease; E11.22 Type 2 diabetes mellitus with diabetic chronic kidney disease; N18.3 Chronic kidney disease, stage 3 (moderate); I50.32 Chronic diastolic (congestive) heart failure; J44.9 Chronic obstructive pulmonary disease, unspecified; K21.9 Gastro-esophageal reflux disease without esophagitis; M10.9 Gout, unspecified; E78.5 Hyperlipidemia, unspecified; E03.9 Hypothyroidism, unspecified; G40.909 Epilepsy, unspecified, not intractable, without status epilepticus; M86.9 Osteomyelitis, unspecified; E11.40 Type 2 diabetes mellitus with diabetic neuropathy, unspecified; Z88.1 Allergy status to other antibiotic agents; Z79.899 Other long term (current) drug therapy; Z79.4 Long term (current) use of insulin; Z86.73 Personal history of transient ischemic attack (TIA), and cerebral infarction without residual deficits

== ENCOUNTER → 2018-08-03 | Outpatient (CLI) | payer OTHER, MEDICAID ==
[~2018-08-03] MED LIST changes: +DICYCLOMINE HCL10 MG PO; +INDOMETHACIN50 MG PO; +MUCINEX ER600 MG PO; +Meclizine25 MG PO; +Motrin,Rufen400 MG PO; +NOVOLOG FL100 UNIT/1 SC; +PROTONIX40 M1 PO
== END | disposition home or self-care (01) ==
LOC: RESCLI 00:38
DX: E03.9 Hypothyroidism, unspecified (principal); E83.42 Hypomagnesemia; E11.65 Type 2 diabetes mellitus with hyperglycemia; B88.8 Other specified infestations; G89.4 Chronic pain syndrome; E78.5 Hyperlipidemia, unspecified; J44.9 Chronic obstructive pulmonary disease, unspecified; I10 Essential (primary) hypertension; G40.909 Epilepsy, unspecified, not intractable, without status epilepticus; K21.9 Gastro-esophageal reflux disease without esophagitis; I25.118 Atherosclerotic heart disease of native coronary artery with other forms of angina pectoris; I48.92 Unspecified atrial flutter; F41.1 Generalized anxiety disorder; N40.0 Benign prostatic hyperplasia without lower urinary tract symptoms; E66.01 Morbid (severe) obesity due to excess calories; H40.9 Unspecified glaucoma; E53.8 Deficiency of other specified B group vitamins; F32.9 Major depressive disorder, single episode, unspecified; L03.115 Cellulitis of right lower limb; Z79.4 Long term (current) use of insulin; Z79.899 Other long term (current) drug therapy; Z88.8 Allergy status to other drugs, medicaments and biological substances; Z87.891 Personal history of nicotine dependence; Z72.89 Other problems related to lifestyle

== ENCOUNTER 2018-08-05 23:16 | Emergency (ER) | payer OTHER, MEDICAID ==
[~2018-08-05] VITALS: Ht 182.8 cm; Wt 127.0 kg
[~2018-08-05 23:16] MED LIST changes: -DICYCLOMINE HCL10 MG PO; -INDOMETHACIN50 MG PO; -MUCINEX ER600 MG PO; -Meclizine25 MG PO; -Motrin,Rufen400 MG PO; -NOVOLOG FL100 UNIT/1 SC; -PROTONIX40 M1 PO
[2018-08-06 00:37] VITALS: BP 132/60
[2018-08-16] MEDS ORDERED: NEURONTIN300 MG PO (18:33)
[2018-09-01] MEDS ORDERED: ZOFRAN ODT4 MG SL (19:51)
[2018-09-24] MEDS ORDERED: Meclizine25 MG PO (21:36)
[2018-09-27] MEDS ORDERED: PREDNISONE20 M1 PO (10:55)
[2018-09-27] MEDS ORDERED: MUCINEX ER600 MG PO (10:55)
[2018-09-27] MEDS ORDERED: LEVAQUIN500 M2 PO (10:55)
== END 2018-08-06 02:30 | disposition home or self-care (01) ==
LOC: ED 23:16
DX: M79.671 Pain in right foot (principal); M79.604 Pain in right leg; Z88.1 Allergy status to other antibiotic agents; Z79.899 Other long term (current) drug therapy

== ENCOUNTER 2018-08-09 14:15 | Inpatient (IN) | payer OTHER ==
[~2018-08-09] VITALS: Ht 182.8 cm; Wt 105.3 kg
--- NOTE | ~2018-08-09 | EKG ---
[place], [place] ELECTROCARDIOGRAM REPORT NAME: DEBORAH SANTACRUZ UNIT #: [id number] ROOM: 525 DOCTOR: RAFIA DRAFT REPORT BIRTHDATE: [birth year] [facility] Test Date: 2018-08-09 Test Time: 20:27:14 Pat Name: DEBORAH SANTACRUZ Department: Room: 525 Gender: M Acls Specialist: Rosa Eckert : 1950 Requested By: RY MARIA Order Number: [id number] Reading MD: Janessa Metz MD Measurements Intervals [place] Rate: 68 P: 41 NV: 222 QRS: 30 QRSD: 103 T: 58 QT: 445 QTc: 474 Interpretive Statements Sinus rhythm Prolonged [place] interval Inferior infarct, old Anterior infarct, old Compared to ECG 07/28/2018 10:03:35 No significant changes Electronically Signed On 08-13-2018 11:27:52 PDT by Janessa Metz MD CM:EKGRPT:ELECTROCARDIOGRAM REPORT 26 1127 RY MEHTA DRAFT REPORT RY MARIA DO
--- NOTE | ~2018-08-09 | EKG ---
[place], [place] ELECTROCARDIOGRAM REPORT NAME: DEBORAH SANTACRUZ UNIT #: [id number] ROOM: 525 DOCTOR: RAFIA DRAFT REPORT BIRTHDATE: [birth year] [facility] Test Date: 2018-08-09 Test Time: 14:23:34 Pat Name: DEBORAH SANTACRUZ Department: Room: 525 Gender: M Final Canoe Inspector: Rosa Eckert : 1950 Requested By: RY MARIA Order Number: [id number] Reading MD: Janessa Metz MD Measurements Intervals [place] Rate: 72 P: 9 [place]: 220 QRS: 30 QRSD: 102 T: 69 QT: 423 QTc: 463 Interpretive Statements Sinus rhythm Prolonged [place] interval Inferior infarct, old Anterior infarct, old Baseline wander in lead(s) V4 Compared to ECG 07/28/2018 10:03:35 No significant changes Electronically Signed On 08-13-2018 11:27:29 PDT by Janessa Metz MD CM:EKGRPT:ELECTROCARDIOGRAM REPORT 1423 1127 RY MEHTA DRAFT REPORT RY MARIA DO
--- NOTE | ~2018-08-09 | EKG ---
[place], [place] ELECTROCARDIOGRAM REPORT NAME: DEBORAH SANTACRUZ UNIT #: [id number] ROOM: 525 DOCTOR: RAFIA DRAFT REPORT BIRTHDATE: [birth year] [facility] Test Date: 2018-08-09 Test Time: 16:59:09 Pat Name: DEBORAH SANTACRUZ Department: Room: 525 Gender: M Rubbish Collector: Rosa Eckert : 1950 Requested By: RY MARIA Order Number: [id number] Reading MD: Janessa Metz MD Measurements Intervals [place] Rate: 68 P: 36 MD: 229 QRS: 31 QRSD: 95 T: 59 QT: 430 QTc: 458 Interpretive Statements Sinus rhythm Prolonged MD interval Inferior infarct, old Anterior infarct, old Baseline wander in lead(s) V4,V5 Compared to ECG 07/28/2018 10:03:35 No significant changes Electronically Signed On 08-13-2018 11:27:41 PDT by Janessa Metz MD CM:EKGRPT:ELECTROCARDIOGRAM REPORT 1659 1127 RY MEHTA DRAFT REPORT RY MARIA DO
[2018-08-09 14:18] VITALS: BP 176/67
[2018-08-09 14:48] LABS: BASO % 0.4 % (0.0-1.0); EOS # 0.3 10*3/uL (0.0-0.4); EOS % 3.8 % (1.0-4.0); HEMATOCRIT 34.2 % (42.0-52.0); HEMOGLOBIN 11.4 g/dl (14.0-18.0); LYMPH # 1.9 10*3/uL (1.3-4.4); LYMPH % 23.4 % (27.0-41.0); MEAN CORPUSCULAR HGB 30.3 pg (27.0-31.0); MEAN CORPUSCULAR HGB CONC 33.3 g/dl (33.0-37.0); MEAN PLATELET VOLUME 10.4 fl (9.6-12.3); MONO # 0.3 10*3/uL (0.1-1.0); MONO % 3.8 % (3.0-9.0); NEUT # 5.6 10*3/uL (2.3-7.9); NEUT % 68.4 % (47.0-73.0); PLATELET COUNT AUTOMATED 160 10*3/uL (130-400); RED BLOOD COUNT 3.76 10*6/uL (4.50-5.90); RED CELL DISTRI WIDTH 14.1 % (0-14.5); WHITE BLOOD COUNT 8.2 10*3/uL (4.8-10.8)
[2018-08-09 14:57] LABS: ACT PARTIAL THROMBO TIME 33.8 SECONDS (20.8-31.5); INTERNATIONAL NORM RATIO 1.4 (2.0-3.5)
[2018-08-09 15:14] LABS: ALBUMIN 3.4 gm/dl (3.1-4.5); ALKALINE PHOSPHATASE 131 U/L (45-117); BUN 36 mg/dl (7-24); CHLORIDE 102 mmol/L (98-107); CREATININE 1.63 mg/dL (0.70-1.30); POTASSIUM 4.8 mmol/L (3.5-5.1); SGOT/AST 25 IU/L (3-35); SGPT/ALT 38 U/L (12-78); SODIUM 135 mmol/L (136-145); TOTAL PROTEIN 7.1 gm/dL (6.4-8.2)
[2018-08-09 15:26] LABS: TROPONIN I < 0.015 ng/ml (<0.045)
[2018-08-09 17:07] VITALS: BP 156/72
[2018-08-09 17:20] VITALS: BP 170/79
[2018-08-09 20:00] VITALS: BP 150/70
[2018-08-10] VITALS: BP 141/67
[2018-08-10 07:04] LABS: BASO % 0.6 % (0.0-1.0); EOS # 0.3 10*3/uL (0.0-0.4); EOS % 6.5 % (1.0-4.0); HEMATOCRIT 31.3 % (42.0-52.0); HEMOGLOBIN 10.1 g/dl (14.0-18.0); LYMPH # 1.8 10*3/uL (1.3-4.4); LYMPH % 34.9 % (27.0-41.0); MEAN CELL VOLUME 92.1 fl (80.0-94.0); MEAN CORPUSCULAR HGB 29.7 pg (27.0-31.0); MEAN CORPUSCULAR HGB CONC 32.3 g/dl (33.0-37.0); MONO # 0.2 10*3/uL (0.1-1.0); MONO % 4.4 % (3.0-9.0); NEUT # 2.7 10*3/uL (2.3-7.9); NEUT % 53.4 % (47.0-73.0); PLATELET COUNT AUTOMATED 125 10*3/uL (130-400); RED CELL DISTRI WIDTH 13.9 % (0-14.5); WHITE BLOOD COUNT 5.1 10*3/uL (4.8-10.8)
[2018-08-10 07:27] LABS: ALBUMIN 2.9 gm/dl (3.1-4.5); ALKALINE PHOSPHATASE 109 U/L (45-117); BUN 31 mg/dl (7-24); CHLORIDE 107 mmol/L (98-107); POTASSIUM 4.3 mmol/L (3.5-5.1); SGOT/AST 15 IU/L (3-35); SGPT/ALT 30 U/L (12-78); SODIUM 141 mmol/L (136-145); TOTAL PROTEIN 6.3 gm/dL (6.4-8.2)
[2018-08-10 08:20] VITALS: BP 150/68
[2018-08-10 12:00] VITALS: BP 127/70
[2018-08-10 16:00] VITALS: BP 123/64
[2018-08-10 20:00] VITALS: BP 140/68
[2018-08-11] VITALS: BP 152/66
[2018-08-11 06:28] LABS: BASO % 0.6 % (0.0-1.0); EOS # 0.3 10*3/uL (0.0-0.4); EOS % 6.8 % (1.0-4.0); HEMATOCRIT 30.3 % (42.0-52.0); HEMOGLOBIN 9.9 g/dl (14.0-18.0); LYMPH % 40.5 % (27.0-41.0); MEAN CELL VOLUME 91.8 fl (80.0-94.0); MEAN CORPUSCULAR HGB CONC 32.7 g/dl (33.0-37.0); MEAN PLATELET VOLUME 10.9 fl (9.6-12.3); MONO # 0.3 10*3/uL (0.1-1.0); MONO % 5.6 % (3.0-9.0); NEUT # 2.3 10*3/uL (2.3-7.9); NEUT % 46.5 % (47.0-73.0); PLATELET COUNT AUTOMATED 104 10*3/uL (130-400); RED CELL DISTRI WIDTH 13.9 % (0-14.5); WHITE BLOOD COUNT 4.8 10*3/uL (4.8-10.8)
[2018-08-11 06:51] LABS: ALBUMIN 2.9 gm/dl (3.1-4.5); ALKALINE PHOSPHATASE 109 U/L (45-117); BUN 33 mg/dl (7-24); CHLORIDE 108 mmol/L (98-107); CREATININE 1.24 mg/dL (0.70-1.30); POTASSIUM 4.6 mmol/L (3.5-5.1); SGOT/AST 15 IU/L (3-35); SGPT/ALT 28 U/L (12-78); SODIUM 141 mmol/L (136-145); TOTAL PROTEIN 5.8 gm/dL (6.4-8.2)
[2018-08-11 12:00] VITALS: BP 125/57
[2018-08-11 16:00] VITALS: BP 129/62
[2018-08-11 20:00] VITALS: BP 165/67
[2018-08-12] VITALS: BP 129/69
[2018-08-12 07:18] LABS: BASO % 0.9 % (0.0-1.0); EOS # 0.3 10*3/uL (0.0-0.4); EOS % 5.9 % (1.0-4.0); HEMATOCRIT 32.5 % (42.0-52.0); HEMOGLOBIN 10.5 g/dl (14.0-18.0); LYMPH # 1.8 10*3/uL (1.3-4.4); LYMPH % 41.6 % (27.0-41.0); MEAN CELL VOLUME 92.3 fl (80.0-94.0); MEAN CORPUSCULAR HGB 29.8 pg (27.0-31.0); MEAN CORPUSCULAR HGB CONC 32.3 g/dl (33.0-37.0); MEAN PLATELET VOLUME 10.6 fl (9.6-12.3); MONO # 0.3 10*3/uL (0.1-1.0); MONO % 6.2 % (3.0-9.0); NEUT % 45.4 % (47.0-73.0); PLATELET COUNT AUTOMATED 97 10*3/uL (130-400); RED BLOOD COUNT 3.52 10*6/uL (4.50-5.90); RED CELL DISTRI WIDTH 13.8 % (0-14.5); WHITE BLOOD COUNT 4.4 10*3/uL (4.8-10.8)
[2018-08-12 07:44] LABS: ALBUMIN 3.2 gm/dl (3.1-4.5); ALKALINE PHOSPHATASE 117 U/L (45-117); BUN 36 mg/dl (7-24); CHLORIDE 107 mmol/L (98-107); CREATININE 1.38 mg/dL (0.70-1.30); POTASSIUM 4.6 mmol/L (3.5-5.1); SGOT/AST 16 IU/L (3-35); SGPT/ALT 30 U/L (12-78); SODIUM 140 mmol/L (136-145); TOTAL PROTEIN 6.5 gm/dL (6.4-8.2)
[2018-08-12 12:00] VITALS: BP 112/63
[2018-08-12 16:00] VITALS: BP 145/50
[2018-08-12 20:00] VITALS: BP 155/94
[2018-08-13] VITALS: BP 133/61
[2018-08-13 06:29] LABS: BASO % 0.8 % (0.0-1.0); EOS # 0.3 10*3/uL (0.0-0.4); EOS % 5.7 % (1.0-4.0); HEMATOCRIT 29.6 % (42.0-52.0); HEMOGLOBIN 9.7 g/dl (14.0-18.0); LYMPH # 1.7 10*3/uL (1.3-4.4); LYMPH % 33.3 % (27.0-41.0); MEAN CELL VOLUME 91.1 fl (80.0-94.0); MEAN CORPUSCULAR HGB 29.8 pg (27.0-31.0); MEAN CORPUSCULAR HGB CONC 32.8 g/dl (33.0-37.0); MEAN PLATELET VOLUME 11.3 fl (9.6-12.3); MONO # 0.4 10*3/uL (0.1-1.0); MONO % 8.7 % (3.0-9.0); NEUT # 2.6 10*3/uL (2.3-7.9); NEUT % 51.3 % (47.0-73.0); PLATELET COUNT AUTOMATED 90 10*3/uL (130-400); RED BLOOD COUNT 3.25 10*6/uL (4.50-5.90); RED CELL DISTRI WIDTH 13.8 % (0-14.5); WHITE BLOOD COUNT 5.1 10*3/uL (4.8-10.8)
[2018-08-13 06:46] LABS: ALBUMIN 3.1 gm/dl (3.1-4.5); BUN 36 mg/dl (7-24); CHLORIDE 107 mmol/L (98-107); CREATININE 1.32 mg/dL (0.70-1.30); PHOSPHOROUS 3.5 mg/dL (2.5-4.9); POTASSIUM 4.8 mmol/L (3.5-5.1); SGOT/AST 13 IU/L (3-35); SGPT/ALT 26 U/L (12-78); SODIUM 140 mmol/L (136-145)
[2018-08-13 06:48] LABS: ALKALINE PHOSPHATASE 109 U/L (45-117); TOTAL PROTEIN 6.2 gm/dL (6.4-8.2)
[2018-08-13 12:00] VITALS: BP 120/54
[2018-08-16] MEDS ORDERED: NEURONTIN300 MG PO (18:33)
[2018-09-01] MEDS ORDERED: ZOFRAN ODT4 MG SL (19:51)
[2018-09-24] MEDS ORDERED: Meclizine25 MG PO (21:36)
[2018-09-27] MEDS ORDERED: MUCINEX ER600 MG PO (10:55)
[2018-09-27] MEDS ORDERED: LEVAQUIN500 M2 PO (10:55)
[2018-09-27] MEDS ORDERED: PREDNISONE20 M1 PO (10:55)
== END 2018-08-13 14:34 | disposition home or self-care (01) | DRG 391 ==
LOC: ED 14:15 → EDHOLD 16:18 → 5E 16:18
PROVIDERS: Emergency Medicine; Family Medicine; Internal Medicine
DX: K52.9 Noninfective gastroenteritis and colitis, unspecified (principal); N17.1 Acute kidney failure with acute cortical necrosis; E44.0 Moderate protein-calorie malnutrition; I50.32 Chronic diastolic (congestive) heart failure; D68.59 Other primary thrombophilia; M86.271 Subacute osteomyelitis, right ankle and foot; E87.2 Acidosis; I48.92 Unspecified atrial flutter; I13.0 Hypertensive heart and chronic kidney disease with heart failure and stage 1 through stage 4 chronic kidney disease, or unspecified chronic kidney disease; N18.3 Chronic kidney disease, stage 3 (moderate); L97.519 Non-pressure chronic ulcer of other part of right foot with unspecified severity; N40.0 Benign prostatic hyperplasia without lower urinary tract symptoms; I25.10 Atherosclerotic heart disease of native coronary artery without angina pectoris; J44.9 Chronic obstructive pulmonary disease, unspecified; E11.22 Type 2 diabetes mellitus with diabetic chronic kidney disease; E86.0 Dehydration; G89.29 Other chronic pain; F32.9 Major depressive disorder, single episode, unspecified; F41.1 Generalized anxiety disorder; E78.5 Hyperlipidemia, unspecified; E11.42 Type 2 diabetes mellitus with diabetic polyneuropathy; E03.9 Hypothyroidism, unspecified; G40.909 Epilepsy, unspecified, not intractable, without status epilepticus; K21.9 Gastro-esophageal reflux disease without esophagitis; M10.9 Gout, unspecified; F17.210 Nicotine dependence, cigarettes, uncomplicated; E11.69 Type 2 diabetes mellitus with other specified complication; K44.9 Diaphragmatic hernia without obstruction or gangrene; E53.8 Deficiency of other specified B group vitamins; D64.9 Anemia, unspecified; Z96.641 Presence of right artificial hip joint; Z68.28 Body mass index [BMI] 28.0-28.9, adult; Z86.73 Personal history of transient ischemic attack (TIA), and cerebral infarction without residual deficits; Z91.81 History of falling; Z95.5 Presence of coronary angioplasty implant and graft; Z90.49 Acquired absence of other specified parts of digestive tract; Z89.412 Acquired absence of left great toe; Z89.422 Acquired absence of other left toe(s); Z79.4 Long term (current) use of insulin; Z79.01 Long term (current) use of anticoagulants; Z79.899 Other long term (current) drug therapy; Z88.1 Allergy status to other antibiotic agents; Z80.0 Family history of malignant neoplasm of digestive organs; Z83.3 Family history of diabetes mellitus; Z82.49 Family history of ischemic heart disease and other diseases of the circulatory system; T36.8X5A Adverse effect of other systemic antibiotics, initial encounter

== ENCOUNTER → 2018-08-18 | Outpatient (CLI) | payer OTHER ==
[~2018-08-18] MED LIST changes: +DICYCLOMINE HCL10 MG PO; +INDOMETHACIN50 MG PO; +MUCINEX ER600 MG PO; +Meclizine25 MG PO; +Motrin,Rufen400 MG PO; +NOVOLOG FL100 UNIT/1 SC; +PROTONIX40 M1 PO
[2018-08-18 13:19] LABS: ALBUMIN 3.6 gm/dl (3.1-4.5); CREATININE 1.56 mg/dL (0.70-1.30); POTASSIUM 4.2 mmol/L (3.5-5.1); TOTAL PROTEIN 7.4 gm/dL (6.4-8.2)
[2018-08-18 13:21] LABS: BILIRUBIN NEGATIVE (NEGATIVE); BLOOD TRACE-INTACT (NEGATIVE); CLARITY CLEAR (CLEAR); COLOR YELLOW (YELLOW); GLUCOSE NEGATIVE (NEGATIVE); KETONE NEGATIVE (NEGATIVE); LEUKO ESTERASE NEGATIVE (NEGATIVE); NITRITE NEGATIVE (NEGATIVE); UROBILINOGEN 0.2 E.U./dl (0.2-1.0)
[2018-08-18 13:41] LABS: WBC 0-2 wbc/hpf (0-5)
== END | disposition home or self-care (01) ==
LOC: RESCLI 01:20
PROVIDERS: Student in an Organized Health Care Education/Training Program
DX: Z09 Encounter for follow-up examination after completed treatment for conditions other than malignant neoplasm (principal); E03.9 Hypothyroidism, unspecified; E83.42 Hypomagnesemia; E11.65 Type 2 diabetes mellitus with hyperglycemia; E78.5 Hyperlipidemia, unspecified; G89.4 Chronic pain syndrome; J44.9 Chronic obstructive pulmonary disease, unspecified; I10 Essential (primary) hypertension; G40.909 Epilepsy, unspecified, not intractable, without status epilepticus; K21.9 Gastro-esophageal reflux disease without esophagitis; I48.92 Unspecified atrial flutter; F41.1 Generalized anxiety disorder; N40.0 Benign prostatic hyperplasia without lower urinary tract symptoms; E66.01 Morbid (severe) obesity due to excess calories; E53.8 Deficiency of other specified B group vitamins; F32.9 Major depressive disorder, single episode, unspecified; L03.115 Cellulitis of right lower limb; I48.2 Chronic atrial fibrillation; I95.1 Orthostatic hypotension; R39.9 Unspecified symptoms and signs involving the genitourinary system; I25.118 Atherosclerotic heart disease of native coronary artery with other forms of angina pectoris; Z79.4 Long term (current) use of insulin

== ENCOUNTER → 2018-08-19 | Outpatient (CLI) | payer OTHER | END | disposition home or self-care (01) | LOC: WOUNDCARE 03:35 | DX: E11.621 Type 2 diabetes mellitus with foot ulcer (principal); L97.516 Non-pressure chronic ulcer of other part of right foot with bone involvement without evidence of necrosis; E11.65 Type 2 diabetes mellitus with hyperglycemia; E11.22 Type 2 diabetes mellitus with diabetic chronic kidney disease; I12.9 Hypertensive chronic kidney disease with stage 1 through stage 4 chronic kidney disease, or unspecified chronic kidney disease; N18.3 Chronic kidney disease, stage 3 (moderate); E11.40 Type 2 diabetes mellitus with diabetic neuropathy, unspecified; I48.92 Unspecified atrial flutter; E78.5 Hyperlipidemia, unspecified; E03.9 Hypothyroidism, unspecified; J44.9 Chronic obstructive pulmonary disease, unspecified; F19.90 Other psychoactive substance use, unspecified, uncomplicated; Z87.891 Personal history of nicotine dependence ==

== ENCOUNTER 2018-08-22 12:52 | Inpatient (IN) | payer OTHER ==
[~2018-08-22] VITALS: Ht 182.9 cm; Wt 105.2 kg
[2018-08-22] VITALS (7 sets, daily range): BP systolic 164–184; BP diastolic 75–91
--- NOTE | ~2018-08-22 | EKG ---
[place], [place] ELECTROCARDIOGRAM REPORT NAME: DEBORAH SANTACRUZ UNIT #: [id number] ROOM: DOCTOR: EPIPHANY DRAFT REPORT BIRTHDATE: [birth year] [facility] [place] Test Date: 2018-08-22 Test Time: 15:26:50 Pat Name: DEBORAH SANTACRUZ Department: Room: Gender: Nutrition Program Instructor: [place] : 1950 Requested By: URIEL HAWTHORNE Order Number: [id number] Reading MD: Measurements Intervals [place] Rate: 59 P: -4 VT: 273 QRS: 8 QRSD: 115 T: 65 QT: 459 QTc: 455 Interpretive Statements Sinus rhythm Prolonged [place] interval Nonspecific intraventricular conduction delay Inferior infarct, old Anterior infarct, old Compared to ECG 08/09/2018 20:27:14 Intraventricular conduction delay now present Myocardial infarct finding still present CM:EKGRPT:ELECTROCARDIOGRAM REPORT 1526 1230 URIEL HAWTHORNE EPIPHANY DRAFT REPORT URIEL HAWTHORNE
--- NOTE | ~2018-08-22 | PR ---
[place], [place] PROGRESS NOTE NAME: DEBORAH SANTACRUZ UNIT #: [id number] ROOM: 421 DOCTOR: RICH ZUNIGA DPM BIRTHDATE: [birth year] DOS: 08/25/2018 This patient is seen with resident PGY1, Simon Calloway, for wound of his right fifth toe. A full thickness sharp excisional debridement was performed on the fifth toe of the right foot. I was present, and with evaluation and treatment of the patient with the resident Simon Calloway. RICH ZUNIGA DPM CM:PNTRANS 0924 RICH ZUNIGA DPM 08/26/18 1147 interface
--- NOTE | ~2018-08-22 | PN ---
[place], [place] PROGRESS NOTE NAME: DEBORAH SANTACRUZ UNIT #: [id number] ROOM: 421 DOCTOR: RICH ZUNIGA DPM BIRTHDATE: [birth year] DATE: 08/25/18 ADDENDUM TO RESIDENT REPORT: I rounded with the resident and concur with their diagnosis and treatment as documented by the resident. RICH ZUNIGA DPM CM:PNTRANS 1030 154 RICH ZUNIGA DPM 09/22/18 1540 MARY KINGSLEY MIS.LLR
[~2018-08-22 12:52] MED LIST changes: -DICYCLOMINE HCL10 MG PO; -INDOMETHACIN50 MG PO; -MUCINEX ER600 MG PO; -Meclizine25 MG PO; -Motrin,Rufen400 MG PO; -NOVOLOG FL100 UNIT/1 SC; -PROTONIX40 M1 PO
[2018-08-22 15:50] LABS: BASO % 0.3 % (0.0-1.0); EOS # 0.5 10*3/uL (0.0-0.4); EOS % 3.8 % (1.0-4.0); HEMATOCRIT 37.6 % (42.0-52.0); HEMOGLOBIN 12.3 g/dl (14.0-18.0); LYMPH # 3.2 10*3/uL (1.3-4.4); LYMPH % 24.6 % (27.0-41.0); MEAN CELL VOLUME 93.3 fl (80.0-94.0); MEAN CORPUSCULAR HGB 30.5 pg (27.0-31.0); MEAN CORPUSCULAR HGB CONC 32.7 g/dl (33.0-37.0); MONO # 0.6 10*3/uL (0.1-1.0); MONO % 4.9 % (3.0-9.0); NEUT # 8.4 10*3/uL (2.3-7.9); NEUT % 65.6 % (47.0-73.0); PLATELET COUNT AUTOMATED 191 10*3/uL (130-400); RED BLOOD COUNT 4.03 10*6/uL (4.50-5.90); RED CELL DISTRI WIDTH 15.1 % (0-14.5); WHITE BLOOD COUNT 12.8 10*3/uL (4.8-10.8)
[2018-08-22 16:12] LABS: BILIRUBIN NEGATIVE (NEGATIVE); BLOOD TRACE-LYSED (NEGATIVE); CLARITY CLEAR (CLEAR); COLOR YELLOW (YELLOW); GLUCOSE 2+ (NEGATIVE); KETONE NEGATIVE (NEGATIVE); LEUKO ESTERASE NEGATIVE (NEGATIVE); NITRITE NEGATIVE (NEGATIVE); SPECIFIC GRAVITY 1.025 (1.005-1.030); UROBILINOGEN 0.2 E.U./dl (0.2-1.0)
[2018-08-22 16:15] LABS: ALBUMIN 3.5 gm/dl (3.1-4.5); ALKALINE PHOSPHATASE 141 U/L (45-117); BUN 31 mg/dl (7-24); CHLORIDE 106 mmol/L (98-107); CREATININE 1.37 mg/dL (0.70-1.30); POTASSIUM 5.4 mmol/L (3.5-5.1); SGOT/AST 36 IU/L (3-35); SGPT/ALT 43 U/L (12-78); SODIUM 138 mmol/L (136-145); TOTAL PROTEIN 7.5 gm/dL (6.4-8.2)
[2018-08-22 16:18] LABS: BACTERIA TRACE; WBC 0-2 wbc/hpf (0-5)
[2018-08-22 16:19] LABS: TROPONIN I < 0.015 ng/ml (<0.045)
[2018-08-23] VITALS: BP 165/66
[2018-08-23 06:36] LABS: HEMATOCRIT 32.4 % (42.0-52.0); HEMOGLOBIN 10.8 g/dl (14.0-18.0); MEAN CELL VOLUME 90.5 fl (80.0-94.0); MEAN CORPUSCULAR HGB 30.2 pg (27.0-31.0); MEAN CORPUSCULAR HGB CONC 33.3 g/dl (33.0-37.0); MEAN PLATELET VOLUME 10.9 fl (9.6-12.3); PLATELET COUNT AUTOMATED 180 10*3/uL (130-400); RED BLOOD COUNT 3.58 10*6/uL (4.50-5.90); RED CELL DISTRI WIDTH 14.9 % (0-14.5); WHITE BLOOD COUNT 11.2 10*3/uL (4.8-10.8)
[2018-08-23 06:47] LABS: ALBUMIN 3.3 gm/dl (3.1-4.5); ALKALINE PHOSPHATASE 135 U/L (45-117); BUN 31 mg/dl (7-24); CHLORIDE 107 mmol/L (98-107); CREATININE 1.42 mg/dL (0.70-1.30); FREE T4 0.97 ng/dl (0.76-1.46); PHOSPHOROUS 2.7 mg/dL (2.5-4.9); POTASSIUM 4.8 mmol/L (3.5-5.1); SGOT/AST 16 IU/L (3-35); SGPT/ALT 39 U/L (12-78); SODIUM 138 mmol/L (136-145)
[2018-08-23 06:52] LABS: THYROID STIM HORMONE (HS) 0.372 uIU/ml (0.358-4.75)
[2018-08-23 07:10] LABS: PLATELET SUFFICIENCY NORMAL (NORMAL); POLYCHROMASIA SLIGHT; TOTAL CELLS COUNTED 100 #CELLS
[2018-08-23 07:21] LABS: ACT PARTIAL THROMBO TIME 30.2 SECONDS (20.8-31.5); INTERNATIONAL NORM RATIO 1.3 (2.0-3.5)
[2018-08-23 08:00] VITALS: BP 150/90
[2018-08-23] MEDS ORDERED: NOVOLOG FL100 UNIT/1 SC (09:25)
[2018-08-23 12:00] VITALS: BP 144/88
[2018-08-23 16:00] VITALS: BP 162/78
[2018-08-23 20:00] VITALS: BP 151/66
[2018-08-24] VITALS: BP 140/74
[2018-08-24 06:25] LABS: HEMATOCRIT 29.5 % (42.0-52.0); HEMOGLOBIN 9.6 g/dl (14.0-18.0); MEAN CELL VOLUME 92.8 fl (80.0-94.0); MEAN CORPUSCULAR HGB 30.2 pg (27.0-31.0); MEAN CORPUSCULAR HGB CONC 32.5 g/dl (33.0-37.0); MEAN PLATELET VOLUME 11.4 fl (9.6-12.3); PLATELET COUNT AUTOMATED 192 10*3/uL (130-400); RED BLOOD COUNT 3.18 10*6/uL (4.50-5.90); RED CELL DISTRI WIDTH 15.6 % (0-14.5); WHITE BLOOD COUNT 12.9 10*3/uL (4.8-10.8)
[2018-08-24 06:54] LABS: ALBUMIN 3.2 gm/dl (3.1-4.5); POTASSIUM 4.9 mmol/L (3.5-5.1)
[2018-08-24 06:58] LABS: CREATININE 1.55 mg/dL (0.70-1.30); TOTAL PROTEIN 6.3 gm/dL (6.4-8.2)
[2018-08-24 07:15] LABS: ATYPICAL LYMPHS 1 % (0-0); TOTAL CELLS COUNTED 100 #CELLS
[2018-08-24 07:16] LABS: PLATELET SUFFICIENCY NORMAL (NORMAL)
[2018-08-24 08:00] VITALS: BP 134/56; BP 153/49
[2018-08-24 12:00] VITALS: BP 140/70
[2018-08-24 16:00] VITALS: BP 134/70
[2018-08-24 20:00] VITALS: BP 153/81
[2018-08-25] VITALS: BP 147/60
[2018-08-25 06:05] LABS: BASO % 0.1 % (0.0-1.0); HEMATOCRIT 30.6 % (42.0-52.0); HEMOGLOBIN 9.9 g/dl (14.0-18.0); LYMPH # 0.9 10*3/uL (1.3-4.4); LYMPH % 8.1 % (27.0-41.0); MEAN CELL VOLUME 94.2 fl (80.0-94.0); MEAN CORPUSCULAR HGB 30.5 pg (27.0-31.0); MEAN CORPUSCULAR HGB CONC 32.4 g/dl (33.0-37.0); MEAN PLATELET VOLUME 11.7 fl (9.6-12.3); MONO # 0.2 10*3/uL (0.1-1.0); NEUT # 9.5 10*3/uL (2.3-7.9); NEUT % 87.9 % (47.0-73.0); PLATELET COUNT AUTOMATED 192 10*3/uL (130-400); RED BLOOD COUNT 3.25 10*6/uL (4.50-5.90); RED CELL DISTRI WIDTH 15.9 % (0-14.5); WHITE BLOOD COUNT 10.8 10*3/uL (4.8-10.8)
[2018-08-25 06:32] LABS: BUN 40 mg/dl (7-24); CHLORIDE 110 mmol/L (98-107); POTASSIUM 5.1 mmol/L (3.5-5.1); SODIUM 141 mmol/L (136-145)
[2018-08-25 06:33] LABS: CREATININE 1.32 mg/dL (0.70-1.30); PHOSPHOROUS 3.3 mg/dL (2.5-4.9)
[2018-08-25 08:00] VITALS: BP 157/78
[2018-08-25 12:00] VITALS: BP 151/76
[2018-08-25] MEDS ORDERED: XARE20MG PO (12:23)
[2018-08-25] MEDS ORDERED: PREDNISONE10 MG PO (12:25)
[2018-09-01] MEDS ORDERED: ZOFRAN ODT4 MG SL (19:51)
[2018-09-24] MEDS ORDERED: Meclizine25 MG PO (21:36)
[2018-09-27] MEDS ORDERED: PREDNISONE20 M1 PO (10:55)
[2018-09-27] MEDS ORDERED: LEVAQUIN500 M2 PO (10:55)
[2018-09-27] MEDS ORDERED: MUCINEX ER600 MG PO (10:55)
== END 2018-08-25 13:30 | disposition home or self-care (01) | DRG 166 ==
LOC: ED 12:52 → 4E 17:03 → EDHOLD 17:03 → 4E 17:11
PROVIDERS: Internal Medicine; Nurse Practitioner; Student in an Organized Health Care Education/Training Program
PROC: 0JBR0ZZ Excision of Left Foot Subcutaneous Tissue and Fascia, Open Approach (ICD-10-PCS; principal; 2018-08-25)
DX: J44.0 Chronic obstructive pulmonary disease with (acute) lower respiratory infection (principal); J18.9 Pneumonia, unspecified organism; E87.2 Acidosis; I50.32 Chronic diastolic (congestive) heart failure; D68.59 Other primary thrombophilia; I48.92 Unspecified atrial flutter; I13.0 Hypertensive heart and chronic kidney disease with heart failure and stage 1 through stage 4 chronic kidney disease, or unspecified chronic kidney disease; I16.1 Hypertensive emergency; J44.1 Chronic obstructive pulmonary disease with (acute) exacerbation; R55 Syncope and collapse; E86.0 Dehydration; K21.9 Gastro-esophageal reflux disease without esophagitis; E87.5 Hyperkalemia; N40.0 Benign prostatic hyperplasia without lower urinary tract symptoms; G40.909 Epilepsy, unspecified, not intractable, without status epilepticus; I25.10 Atherosclerotic heart disease of native coronary artery without angina pectoris; N18.3 Chronic kidney disease, stage 3 (moderate); M51.36 Other intervertebral disc degeneration, lumbar region; K44.9 Diaphragmatic hernia without obstruction or gangrene; L97.519 Non-pressure chronic ulcer of other part of right foot with unspecified severity; D64.9 Anemia, unspecified; M10.9 Gout, unspecified; M43.16 Spondylolisthesis, lumbar region; G89.29 Other chronic pain; R00.1 Bradycardia, unspecified; E11.65 Type 2 diabetes mellitus with hyperglycemia; E83.42 Hypomagnesemia; F41.1 Generalized anxiety disorder; F32.9 Major depressive disorder, single episode, unspecified; E03.9 Hypothyroidism, unspecified; E11.42 Type 2 diabetes mellitus with diabetic polyneuropathy; Z96.641 Presence of right artificial hip joint; E78.5 Hyperlipidemia, unspecified; E11.22 Type 2 diabetes mellitus with diabetic chronic kidney disease; E11.621 Type 2 diabetes mellitus with foot ulcer; E53.8 Deficiency of other specified B group vitamins; R29.898 Other symptoms and signs involving the musculoskeletal system; Z72.0 Tobacco use; Z79.4 Long term (current) use of insulin; Z88.1 Allergy status to other antibiotic agents; Z95.5 Presence of coronary angioplasty implant and graft; Z90.49 Acquired absence of other specified parts of digestive tract; Z89.412 Acquired absence of left great toe; Z89.422 Acquired absence of other left toe(s); Z82.49 Family history of ischemic heart disease and other diseases of the circulatory system; Z80.0 Family history of malignant neoplasm of digestive organs; Z83.3 Family history of diabetes mellitus; Z82.3 Family history of stroke; Z86.73 Personal history of transient ischemic attack (TIA), and cerebral infarction without residual deficits; Z91.81 History of falling; Z79.899 Other long term (current) drug therapy

== ENCOUNTER → 2018-08-27 | Outpatient (CLI) | payer OTHER ==
[~2018-08-27] MED LIST changes: +DICYCLOMINE HCL10 MG PO; +INDOMETHACIN50 MG PO; +MUCINEX ER600 MG PO; +Meclizine25 MG PO; +Motrin,Rufen400 MG PO; +NOVOLOG FL100 UNIT/1 SC; +PROTONIX40 M1 PO
== END | disposition home or self-care (01) ==
LOC: RESCLI 03:44
DX: E11.621 Type 2 diabetes mellitus with foot ulcer (principal); L97.816 Non-pressure chronic ulcer of other part of right lower leg with bone involvement without evidence of necrosis; E11.40 Type 2 diabetes mellitus with diabetic neuropathy, unspecified; E11.65 Type 2 diabetes mellitus with hyperglycemia; E11.22 Type 2 diabetes mellitus with diabetic chronic kidney disease; I12.0 Hypertensive chronic kidney disease with stage 5 chronic kidney disease or end stage renal disease; N18.3 Chronic kidney disease, stage 3 (moderate); I48.92 Unspecified atrial flutter; E78.5 Hyperlipidemia, unspecified; E03.9 Hypothyroidism, unspecified; J44.9 Chronic obstructive pulmonary disease, unspecified; Z87.891 Personal history of nicotine dependence

== ENCOUNTER → 2018-08-31 | Outpatient (CLI) | payer OTHER | END | disposition home or self-care (01) | LOC: WOUNDCARE 03:41 | DX: E11.621 Type 2 diabetes mellitus with foot ulcer (principal); L97.519 Non-pressure chronic ulcer of other part of right foot with unspecified severity; E11.40 Type 2 diabetes mellitus with diabetic neuropathy, unspecified; E11.65 Type 2 diabetes mellitus with hyperglycemia; E11.22 Type 2 diabetes mellitus with diabetic chronic kidney disease; I12.0 Hypertensive chronic kidney disease with stage 5 chronic kidney disease or end stage renal disease; N18.3 Chronic kidney disease, stage 3 (moderate); E03.9 Hypothyroidism, unspecified; E78.5 Hyperlipidemia, unspecified; I48.92 Unspecified atrial flutter; J44.9 Chronic obstructive pulmonary disease, unspecified; Z87.891 Personal history of nicotine dependence ==

== ENCOUNTER 2018-09-04 11:05 | Inpatient (IN) | payer OTHER ==
[~2018-09-04] VITALS: Ht 182.8 cm; Wt 104.9 kg
--- NOTE | ~2018-09-04 | O ---
[place], [place] OPERATIVE NOTE NAME: DEBORAH SANTACRUZ UNIT #: [id number] ROOM: 425 DOCTOR: BETHEL CHAO MD BIRTHDATE: [birth year] DOS: 09/06/2018 IDENTIFICATION: The patient is a 68-year-old patient who presented with profound anemia, guaiac positivity, undergoing investigation. The patient with extreme chemical abnormalities as well as rhabdomyolysis and rescued with electrolyte correction and saline infusions and his sodium corrected to 127, potassium to 3.4, myoglobin remains about 1400. PROCEDURE: Today's procedure part of investigation is panendoscopy without biopsy plus photographic series. PREMEDICATION: Propofol. SCOPE: Olympus forward-viewing gastroscope Q10 video. REPORT: After putting the patient in left lateral position and application of lubricant to the scope, the scope was introduced. Thereafter, under direct visualization, advanced through the length of esophagus without difficulty. Diffuse esophageal ulcerations in upper and lower esophagus was identified. Small hiatal hernia of 2.5 cm was noticed. Gastric pouch was entered. Gastritis identified. As we approached in the second part of the duodenum after passing through duodenal bulb, there is a circular deeply penetrated ulcerations. No biopsy obtained since the patient just came off the heparin infusion. PLAN AND DISCUSSION: Continuation with Protonix 40 mg IV b.i.d., addition of sucralfate 2 g slurry q.i.d. and Ensure 1 can 5-6 times daily for his protein-calorie malnutrition and keeping him on soft diet hoping that his ulcer is going to organize and improved. Transfusion as may be necessary. At the present time his latest H and H has improved to 7 and 23, which I think he needs another unit of packed cell to at least improve his cardiac status. BETHEL CHAO MD CM:OPRECORD:OPERATIVE NOTE 1856 0614 BETHEL CHAO MD 09/07/18 0617 interface
--- NOTE | ~2018-09-04 | O ---
[place], [place] OPERATIVE NOTE NAME: [id number] UN[facility] #: [id number] ROOM: 425 DOCTOR: BETHEL CHAO MD BIRTHDATE: [birth year] DOS: 09/06/2018 GASTROENDOSCOPIC REPORT FAMILY HISTORY: [place]. INDICATIONS: The patient has presented with epigastric pain symptomatology of reflux, borderline anemia, renal insufficiency as of diabetes mellitus, advanced this stage. PROCEDURE: Today's procedure part of investigation is panendoscopy plus biopsy. PREMEDICATION: Propofol. SCOPE: Olympus forward-viewing gastroscope Q10 video. REPORT: After putting the patient in left lateral position and application of lubricant to the scope, the scope was introduced. Thereafter, under direct visualization, I advanced through the length of esophagus. Small hiatal hernia of 2 cm was noticed. Gastritis was appreciated. Antrum was biopsied. Duodenitis of mild degree seen. The patient was gradually extubated and tolerated the procedure well. IMPRESSION: Reflux esophagitis, small hiatal hernia, gastritis and duodenitis. PLAN: Protonix 40 mg days. Supportive management. BETHEL CHAO MD CM:OPRECORD:OPERATIVE NOTE 11 40 BETHEL CHAO MD 09/06/181840 interface
--- NOTE | ~2018-09-04 | EKG ---
[place], [place] ELECTROCARDIOGRAM REPORT NAME: DEBORAH SANTACRUZ UNIT #: [id number] ROOM: 425 DOCTOR: RAFIA DRAFT REPORT BIRTHDATE: [birth year] [facility] Test Date: 2018-09-05 Test Time: 06:37:30 Pat Name: DEBORAH SANTACRUZ Department: Room: 425 1 Gender: M Webbing Inspector: Jossy Pierre : 1950 Requested By: LUIS GONZALES Order Number: [id number] Reading MD: Janessa Metz MD Measurements Intervals [place] Rate: 61 P: -4 MN: 222 QRS: 8 QRSD: 99 T: 60 QT: 469 QTc: 473 Interpretive Statements Sinus rhythm Prolonged [place] interval Inferior infarct, old Compared to ECG 08/22/2018 15:26:50 Intraventricular conduction delay no longer present Myocardial infarct finding still present Electronically Signed On 09-05-2018 5:39:43 PDT by Janessa Metz MD CM:EKGRPT:ELECTROCARDIOGRAM REPORT 0637 0539 LUIS MEHTA DRAFT REPORT LUIS GONZALES DO
--- NOTE | ~2018-09-04 | EKG ---
[place], [place] ELECTROCARDIOGRAM REPORT NAME: DEBORAH SANTACRUZ UNIT #: [id number] ROOM: 425 DOCTOR: RAFIA DRAFT REPORT BIRTHDATE: [birth year] [facility] Test Date: 2018-09-04 Test Time: 11:22:17 Pat Name: DEBORAH SANTACRUZ Department: Room: 425 Gender: M Bow Making Machine Operator: : 1950 Requested By: RY MARIA Order Number: [id number] Reading MD: Janessa Metz MD Measurements Intervals [place] Rate: 80 P: 5 IL: 216 QRS: 25 QRSD: 94 T: 66 QT: 391 QTc: 451 Interpretive Statements Sinus rhythm Borderline prolonged [place] interval Inferior infarct, old Anterior infarct, old Compared to ECG 08/22/2018 15:26:50 Intraventricular conduction delay no longer present Myocardial infarct finding still present Electronically Signed On 09-05-2018 5:34:18 PDT by Janessa Metz MD CM:EKGRPT:ELECTROCARDIOGRAM REPORT 1122 0534 RY MEHTA DRAFT REPORT RY MARIA DO
--- NOTE | ~2018-09-04 | CON ---
[place], [place] REPORT OF CONSULTATION NAME[id number] UN[facility] #: [id number] ROOM: 425 DOCTOR: BETHEL CHAO MD BIRTHDATE: [birth year] DOS: 09/06/2018 HISTORY OF PRESENT ILLNESS: The patient is a 68-year-old who presented to Emergency Room with abdominal pain and Dr. Zeus Costello called me regarding his ambiguous abdominal pain after he has been studied as well as his borderline anemia and ambiguity of diagnosis as far as history of peptic ulcer disease is concerned. The patient's laboratory values were reviewed. His BUN and creatinine is 30 and 1.9, GFR 41. Electrolytes are balanced. Lipase of 520 initially. White blood cell of 8, H and H of 11 and 32. CBC differential was reassessed. Lactic acid 2.5. Comprehensive metabolic panel, electrolyte balance, liver function test normal. BNP 500. Chest x-ray was reassessed, no acute process. Abdominal KUB with no acute pathology. Cultures are negative. CBC: H and H dropped to 9 and 28, however macrocytic. PAST MEDICAL HISTORY: Associated with chronic congestive heart failure, history of peptic ulcer disease, foot ulcers, history of diabetes mellitus, history of gout, coronary artery disease, diabetic neuropathy, diabetic nephropathy, COPD, obesity, history of seizure disorder. PAST SURGICAL HISTORY: Multiple podiatric surgeries, status post amputation of left great toe, incision and drainage, status post appendectomy, myringotomy, cholecystectomy, right hip, rotator cuff. SOCIAL HISTORY: History of drug abuse, cocaine, and history of alcohol. FAMILY HISTORY: Noncontributory. ALLERGIES: PIPERACILLIN, VANCOMYCIN, TAZOBACTAM, AND DOXYCYCLINE. MEDICATIONS: List has been reviewed. REVIEW OF SYSTEMS: In general: HEENT: Denies double vision or blurred vision. RESPIRATORY: Denies shortness of breath. CARDIOVASCULAR: Denies chest pain. DIGESTIVE SYSTEM: Nonspecific abdominal pain. PHYSICAL EXAMINATION: VITAL SIGNS: Stable. HEENT: Difficulty with speech, this is chronic; otherwise, HEENT is benign. NECK: Supple. No thyromegaly. CHEST: Symmetric anatomy. Few scattered rhonchi. HEART: Normal sinus rhythm. No gallop, no murmur. ABDOMEN: Soft. No hepato-organomegaly. Obese. Bowel sounds present. EXTREMITIES: No cyanosis, no pedal edema. Multiple amputations and deformities as such of toes were noticed. NEUROLOGIC: Alert and oriented per degree of his IQ. IMPRESSION: Nonspecific abdominal pain, otherwise as dictated in the past medical and surgical history borderline anemia, renal insufficiency, sequelae of [place], [place] REPORT OF CONSULTATION NAME: DEBORAH SANTACRUZ UNIT #: [id number] ROOM: 425 DOCTOR: BETHEL CHAO MD BIRTHDATE: [birth year] advanced diabetes mellitus and complications of gastroesophageal reflux, and seizure disorder. PLAN: With the history of peptic ulcer disease and also history of abdominal pain, we are going to proceed with panendoscopy. BETHEL CHAO MD CM:CONSTR:REPORT OF CONSULTATION 1758 09/07/18 0446 interface
[~2018-09-04 11:05] MED LIST changes: -DICYCLOMINE HCL10 MG PO; -INDOMETHACIN50 MG PO; -MUCINEX ER600 MG PO; -Meclizine25 MG PO; -Motrin,Rufen400 MG PO; -PROTONIX40 M1 PO
[2018-09-04 11:07] VITALS: BP 127/71
[2018-09-04 11:29] LABS: BASO % 0.3 % (0.0-1.0); EOS # 0.2 10*3/uL (0.0-0.4); EOS % 2.2 % (1.0-4.0); HEMOGLOBIN 10.4 g/dl (14.0-18.0); LYMPH # 1.6 10*3/uL (1.3-4.4); LYMPH % 21.6 % (27.0-41.0); MEAN CELL VOLUME 95.5 fl (80.0-94.0); MEAN CORPUSCULAR HGB CONC 32.5 g/dl (33.0-37.0); MEAN PLATELET VOLUME 11.2 fl (9.6-12.3); MONO # 0.5 10*3/uL (0.1-1.0); MONO % 7.2 % (3.0-9.0); NEUT # 4.9 10*3/uL (2.3-7.9); NEUT % 68.3 % (47.0-73.0); PLATELET COUNT AUTOMATED 125 10*3/uL (130-400); RED BLOOD COUNT 3.35 10*6/uL (4.50-5.90); RED CELL DISTRI WIDTH 15.8 % (0-14.5); WHITE BLOOD COUNT 7.2 10*3/uL (4.8-10.8)
[2018-09-04 11:43] LABS: ALBUMIN 2.7 gm/dl (3.1-4.5); ALKALINE PHOSPHATASE 117 U/L (45-117); BUN 18 mg/dl (7-24); CHLORIDE 113 mmol/L (98-107); CREATININE 1.59 mg/dL (0.70-1.30); LIPASE 571 U/L (73-393); POTASSIUM 4.5 mmol/L (3.5-5.1); SGOT/AST 19 IU/L (3-35); SGPT/ALT 49 U/L (12-78); SODIUM 141 mmol/L (136-145); TOTAL PROTEIN 6.2 gm/dL (6.4-8.2)
[2018-09-04 11:44] LABS: TROPONIN I < 0.015 ng/ml (<0.045)
[2018-09-04 11:46] LABS: ACT PARTIAL THROMBO TIME 34.8 SECONDS (20.8-31.5); INTERNATIONAL NORM RATIO 1.4 (2.0-3.5)
[2018-09-04 17:23] VITALS: BP 125/80
[2018-09-04 20:00] VITALS: BP 124/63
[2018-09-05] VITALS: BP 140/57
[2018-09-05 06:45] LABS: BASO % 0.4 % (0.0-1.0); EOS # 0.2 10*3/uL (0.0-0.4); EOS % 3.4 % (1.0-4.0); HEMATOCRIT 32.2 % (42.0-52.0); HEMOGLOBIN 10.1 g/dl (14.0-18.0); LYMPH # 2.2 10*3/uL (1.3-4.4); LYMPH % 39.2 % (27.0-41.0); MEAN CORPUSCULAR HGB 30.4 pg (27.0-31.0); MEAN CORPUSCULAR HGB CONC 31.4 g/dl (33.0-37.0); MEAN PLATELET VOLUME 11.4 fl (9.6-12.3); MONO # 0.4 10*3/uL (0.1-1.0); MONO % 6.7 % (3.0-9.0); NEUT # 2.8 10*3/uL (2.3-7.9); NEUT % 49.9 % (47.0-73.0); PLATELET COUNT AUTOMATED 126 10*3/uL (130-400); RED BLOOD COUNT 3.32 10*6/uL (4.50-5.90); RED CELL DISTRI WIDTH 15.7 % (0-14.5); WHITE BLOOD COUNT 5.7 10*3/uL (4.8-10.8)
[2018-09-05 06:59] LABS: ALBUMIN 2.5 gm/dl (3.1-4.5); ALKALINE PHOSPHATASE 116 U/L (45-117); BUN 17 mg/dl (7-24); CHLORIDE 119 mmol/L (98-107); CREATININE 1.33 mg/dL (0.70-1.30); LIPASE 493 U/L (73-393); PHOSPHOROUS 2.9 mg/dL (2.5-4.9); POTASSIUM 4.9 mmol/L (3.5-5.1); SGOT/AST 23 IU/L (3-35); SGPT/ALT 48 U/L (12-78); SODIUM 145 mmol/L (136-145); TOTAL PROTEIN 5.8 gm/dL (6.4-8.2)
[2018-09-05 08:00] VITALS: BP 142/68
[2018-09-05 12:00] VITALS: BP 94/56
[2018-09-05 16:00] VITALS: BP 126/57
[2018-09-05 20:00] VITALS: BP 112/45
[2018-09-06] VITALS (8 sets, daily range): BP systolic 100–150; BP diastolic 45–87
[2018-09-06 06:45] LABS: BASO % 0.4 % (0.0-1.0); EOS # 0.2 10*3/uL (0.0-0.4); EOS % 3.8 % (1.0-4.0); HEMATOCRIT 28.4 % (42.0-52.0); HEMOGLOBIN 9.2 g/dl (14.0-18.0); LYMPH # 1.5 10*3/uL (1.3-4.4); LYMPH % 31.7 % (27.0-41.0); MEAN CELL VOLUME 96.6 fl (80.0-94.0); MEAN CORPUSCULAR HGB 31.3 pg (27.0-31.0); MEAN CORPUSCULAR HGB CONC 32.4 g/dl (33.0-37.0); MEAN PLATELET VOLUME 11.5 fl (9.6-12.3); MONO # 0.3 10*3/uL (0.1-1.0); MONO % 6.7 % (3.0-9.0); NEUT # 2.7 10*3/uL (2.3-7.9); PLATELET COUNT AUTOMATED 126 10*3/uL (130-400); RED BLOOD COUNT 2.94 10*6/uL (4.50-5.90); RED CELL DISTRI WIDTH 15.5 % (0-14.5); WHITE BLOOD COUNT 4.8 10*3/uL (4.8-10.8)
[2018-09-06 07:01] LABS: BUN 17 mg/dl (7-24); CHLORIDE 116 mmol/L (98-107); CREATININE 1.19 mg/dL (0.70-1.30); POTASSIUM 5.1 mmol/L (3.5-5.1); SODIUM 142 mmol/L (136-145)
[2018-09-07] VITALS: BP 131/58
[2018-09-07 08:00] VITALS: BP 140/58
[2018-09-07 11:53] VITALS: BP 105/68
[2018-09-07] MEDS ORDERED: DICYCLOMINE HCL10 MG PO (12:30)
[2018-09-07] MEDS ORDERED: Carafate1 GM/10 ML PO (12:30)
[2018-09-07] MEDS ORDERED: PROTONIX40 M1 PO (12:30)
[2018-09-24] MEDS ORDERED: Meclizine25 MG PO (21:36)
[2018-09-27] MEDS ORDERED: LEVAQUIN500 M2 PO (10:55)
[2018-09-27] MEDS ORDERED: MUCINEX ER600 MG PO (10:55)
[2018-09-27] MEDS ORDERED: PREDNISONE20 M1 PO (10:55)
== END 2018-09-07 13:38 | disposition home or self-care (01) | DRG 391 ==
LOC: ED 11:05 → EDHOLD 16:31 → 4E 16:31 → 5E 17:37 → 4E 18:06
PROVIDERS: Emergency Medicine; Internal Medicine
PROC: 0DB68ZX Excision of Stomach, Via Natural or Artificial Opening Endoscopic, Diagnostic (ICD-10-PCS; principal; 2018-09-06)
DX: K29.00 Acute gastritis without bleeding (principal); N17.0 Acute kidney failure with tubular necrosis; I50.32 Chronic diastolic (congestive) heart failure; I48.92 Unspecified atrial flutter; D68.59 Other primary thrombophilia; E87.2 Acidosis; M86.671 Other chronic osteomyelitis, right ankle and foot; K29.80 Duodenitis without bleeding; K44.9 Diaphragmatic hernia without obstruction or gangrene; K21.9 Gastro-esophageal reflux disease without esophagitis; N18.3 Chronic kidney disease, stage 3 (moderate); E83.42 Hypomagnesemia; N40.0 Benign prostatic hyperplasia without lower urinary tract symptoms; I25.10 Atherosclerotic heart disease of native coronary artery without angina pectoris; G89.29 Other chronic pain; E11.9 Type 2 diabetes mellitus without complications; F41.1 Generalized anxiety disorder; M10.9 Gout, unspecified; E78.5 Hyperlipidemia, unspecified; E03.9 Hypothyroidism, unspecified; D64.9 Anemia, unspecified; G40.909 Epilepsy, unspecified, not intractable, without status epilepticus; F17.210 Nicotine dependence, cigarettes, uncomplicated; M51.37 Other intervertebral disc degeneration, lumbosacral region; M43.10 Spondylolisthesis, site unspecified; F32.9 Major depressive disorder, single episode, unspecified; E11.42 Type 2 diabetes mellitus with diabetic polyneuropathy; J44.9 Chronic obstructive pulmonary disease, unspecified; E53.8 Deficiency of other specified B group vitamins; Z79.4 Long term (current) use of insulin; Z86.73 Personal history of transient ischemic attack (TIA), and cerebral infarction without residual deficits; Z96.641 Presence of right artificial hip joint; Z90.49 Acquired absence of other specified parts of digestive tract; Z95.5 Presence of coronary angioplasty implant and graft; Z80.0 Family history of malignant neoplasm of digestive organs; Z89.412 Acquired absence of left great toe; Z83.3 Family history of diabetes mellitus; Z82.49 Family history of ischemic heart disease and other diseases of the circulatory system; Z88.9 Allergy status to unspecified drugs, medicaments and biological substances; Z88.1 Allergy status to other antibiotic agents

== ENCOUNTER 2018-09-12 17:14 | Emergency (ER) | payer OTHER ==
--- NOTE | ~2018-09-12 | EKG ---
[place], [place] ELECTROCARDIOGRAM REPORT NAME: DEBORAH SANTACRUZ UNIT #: [id number] ROOM: DOCTOR: EPIPHANY DRAFT REPORT BIRTHDATE: [birth year] [facility] Test Date: 2018-09-12 Test Time: 17:47:23 Pat Name: DEBORAH SANTACRUZ Department: Room: Gender: Machine Assembler For Puller Over: Rosa Eckert : 1950 Requested By: LARA PRITCHETT DNP Order Number: [id number] Reading MD: Janessa Metz MD Measurements Intervals [place] Rate: 87 P: 76 DC: 209 QRS: 51 QRSD: 88 T: 72 QT: 386 QTc: 465 Interpretive Statements Sinus rhythm Inferior infarct, old Anterior infarct, old Baseline wander in lead(s) II,aVR Compared to ECG 09/05/2018 06:37:30 First degree AV block no longer present Myocardial infarct finding still present Electronically Signed On 09-16-2018 14:21:18 PST by Janessa Metz MD CM:EKGRPT:ELECTROCARDIOGRAM REPORT 1747 1421 [facility] RE[facility] LARA PRITCHETT DNP
[~2018-09-12 17:14] MED LIST changes: +DICYCLOMINE HCL10 MG PO; +PROTONIX40 M1 PO
[2018-09-12 17:56] LABS: BASO # 0.1 10*3/uL (0.0-0.1); BASO % 0.7 % (0.0-1.0); EOS # 0.3 10*3/uL (0.0-0.4); EOS % 3.4 % (1.0-4.0); HEMATOCRIT 32.9 % (42.0-52.0); LYMPH # 2.9 10*3/uL (1.3-4.4); LYMPH % 31.8 % (27.0-41.0); MEAN CELL VOLUME 92.7 fl (80.0-94.0); MEAN CORPUSCULAR HGB CONC 33.4 g/dl (33.0-37.0); MEAN PLATELET VOLUME 10.6 fl (9.6-12.3); MONO # 0.5 10*3/uL (0.1-1.0); MONO % 5.1 % (3.0-9.0); NEUT # 5.3 10*3/uL (2.3-7.9); NEUT % 58.1 % (47.0-73.0); PLATELET COUNT AUTOMATED 187 10*3/uL (130-400); RED BLOOD COUNT 3.55 10*6/uL (4.50-5.90); RED CELL DISTRI WIDTH 14.6 % (0-14.5); WHITE BLOOD COUNT 9.2 10*3/uL (4.8-10.8)
[2018-09-12 18:05] LABS: ACT PARTIAL THROMBO TIME 46.2 SECONDS (20.8-31.5); INTERNATIONAL NORM RATIO 1.7 (2.0-3.5)
[2018-09-12 18:13] LABS: ALBUMIN 2.9 gm/dl (3.1-4.5); CREATININE 2.23 mg/dL (0.70-1.30); POTASSIUM 4.4 mmol/L (3.5-5.1); TOTAL PROTEIN 6.8 gm/dL (6.4-8.2)
[2018-09-12 18:14] LABS: TROPONIN I 0.04 ng/ml (<0.045)
[2018-09-12 20:56] LABS: BILIRUBIN 1+ (NEGATIVE); BLOOD TRACE-LYSED (NEGATIVE); CLARITY SL CLOUDY (CLEAR); COLOR YELLOW (YELLOW); GLUCOSE 1+ (NEGATIVE); KETONE TRACE (NEGATIVE); LEUKO ESTERASE NEGATIVE (NEGATIVE); NITRITE NEGATIVE (NEGATIVE); PH 5.5 (5.0-9.0); SPECIFIC GRAVITY >= 1.030 (1.005-1.030); UROBILINOGEN 0.2 E.U./dl (0.2-1.0)
[2018-09-12 21:09] LABS: BACTERIA 2+; HYALINE CAST 51-100; RBC 21-30 rbc/hpf (0-2)
[2018-09-12 23:22] VITALS: BP 108/56
[2018-09-24] MEDS ORDERED: Meclizine25 MG PO (21:36)
[2018-09-27] MEDS ORDERED: PREDNISONE20 M1 PO (10:55)
[2018-09-27] MEDS ORDERED: LEVAQUIN500 M2 PO (10:55)
[2018-09-27] MEDS ORDERED: MUCINEX ER600 MG PO (10:55)
== END 2018-09-13 05:02 | disposition home or self-care (01) ==
LOC: ED 17:14
PROVIDERS: Nurse Practitioner Family
DX: I12.9 Hypertensive chronic kidney disease with stage 1 through stage 4 chronic kidney disease, or unspecified chronic kidney disease (principal); E11.22 Type 2 diabetes mellitus with diabetic chronic kidney disease; N18.9 Chronic kidney disease, unspecified; E11.65 Type 2 diabetes mellitus with hyperglycemia; R11.2 Nausea with vomiting, unspecified; R19.7 Diarrhea, unspecified; R10.11 Right upper quadrant pain; I25.10 Atherosclerotic heart disease of native coronary artery without angina pectoris; J44.9 Chronic obstructive pulmonary disease, unspecified; I25.2 Old myocardial infarction; Z88.1 Allergy status to other antibiotic agents; Z79.899 Other long term (current) drug therapy; Z86.73 Personal history of transient ischemic attack (TIA), and cerebral infarction without residual deficits; Z79.4 Long term (current) use of insulin

== ENCOUNTER 2018-09-17 12:17 | Emergency (ER) | payer OTHER ==
[~2018-09-17] VITALS: Ht 182.8 cm; Wt 124.3 kg
--- NOTE | ~2018-09-17 | EKG ---
[place], [place] ELECTROCARDIOGRAM REPORT NAME: DEBORAH SANTACRUZ UNIT #: [id number] ROOM: DOCTOR: RAFIA DRAFT REPORT BIRTHDATE: [birth year] [facility] Test Date: 2018-09-17 Test Time: 12:25:22 Pat Name: DEBORAH SANTACRUZ Department: Room: Gender: Shoe Cleaner: [place] : 1950 Requested By: BRADY COSTA Order Number: [id number] Reading MD: Measurements Intervals [place] Rate: 69 P: 27 [place]: 219 QRS: 44 QRSD: 95 T: 65 QT: 402 QTc: 431 Interpretive Statements Sinus rhythm Borderline prolonged [place] interval Anterior infarct, old Compared to ECG 09/15/2018 08:42:55 No significant changes CM:EKGRPT:ELECTROCARDIOGRAM REPORT 1225 0927 BRADY MORATAYA DRAFT REPORT BRADY COSTA M.D.
[2018-09-17 12:46] LABS: BASO # 0.1 10*3/uL (0.0-0.1); BASO % 0.6 % (0.0-1.0); EOS # 0.4 10*3/uL (0.0-0.4); EOS % 5.3 % (1.0-4.0); HEMATOCRIT 32.2 % (42.0-52.0); HEMOGLOBIN 10.9 g/dl (14.0-18.0); LYMPH # 1.9 10*3/uL (1.3-4.4); LYMPH % 24.8 % (27.0-41.0); MEAN CELL VOLUME 92.8 fl (80.0-94.0); MEAN CORPUSCULAR HGB 31.4 pg (27.0-31.0); MEAN CORPUSCULAR HGB CONC 33.9 g/dl (33.0-37.0); MEAN PLATELET VOLUME 11.7 fl (9.6-12.3); MONO # 0.5 10*3/uL (0.1-1.0); MONO % 6.9 % (3.0-9.0); NEUT # 4.8 10*3/uL (2.3-7.9); NEUT % 61.6 % (47.0-73.0); PLATELET COUNT AUTOMATED 164 10*3/uL (130-400); RED BLOOD COUNT 3.47 10*6/uL (4.50-5.90); RED CELL DISTRI WIDTH 14.5 % (0-14.5); WHITE BLOOD COUNT 7.8 10*3/uL (4.8-10.8)
[2018-09-17 13:02] LABS: ALKALINE PHOSPHATASE 143 U/L (45-117); BUN 25 mg/dl (7-24); CHLORIDE 105 mmol/L (98-107); CREATININE 1.48 mg/dL (0.70-1.30); POTASSIUM 4.6 mmol/L (3.5-5.1); SGOT/AST 24 IU/L (3-35); SGPT/ALT 31 U/L (12-78); SODIUM 140 mmol/L (136-145); TOTAL PROTEIN 6.7 gm/dL (6.4-8.2)
[2018-09-17 13:07] LABS: TROPONIN I < 0.015 ng/ml (<0.045)
[2018-09-17 14:32] VITALS: BP 125/79
[2018-09-24] MEDS ORDERED: Meclizine25 MG PO (21:36)
[2018-09-27] MEDS ORDERED: MUCINEX ER600 MG PO (10:55)
[2018-09-27] MEDS ORDERED: PREDNISONE20 M1 PO (10:55)
[2018-09-27] MEDS ORDERED: LEVAQUIN500 M2 PO (10:55)
== END 2018-09-17 14:39 | disposition home or self-care (01) ==
LOC: ED 12:17
PROVIDERS: Emergency Medicine
DX: E11.65 Type 2 diabetes mellitus with hyperglycemia (principal); I25.10 Atherosclerotic heart disease of native coronary artery without angina pectoris; J44.9 Chronic obstructive pulmonary disease, unspecified; E11.40 Type 2 diabetes mellitus with diabetic neuropathy, unspecified; K21.9 Gastro-esophageal reflux disease without esophagitis; E78.5 Hyperlipidemia, unspecified; E03.9 Hypothyroidism, unspecified; G40.909 Epilepsy, unspecified, not intractable, without status epilepticus; M19.90 Unspecified osteoarthritis, unspecified site; I13.0 Hypertensive heart and chronic kidney disease with heart failure and stage 1 through stage 4 chronic kidney disease, or unspecified chronic kidney disease; E11.22 Type 2 diabetes mellitus with diabetic chronic kidney disease; N18.3 Chronic kidney disease, stage 3 (moderate); I50.32 Chronic diastolic (congestive) heart failure; Z79.4 Long term (current) use of insulin; Z86.73 Personal history of transient ischemic attack (TIA), and cerebral infarction without residual deficits; Z88.1 Allergy status to other antibiotic agents; Z79.899 Other long term (current) drug therapy

== ENCOUNTER 2018-09-30 14:49 | Emergency (ER) | payer OTHER ==
[~2018-09-30] VITALS: Wt 106.1 kg
--- NOTE | ~2018-09-30 | EKG ---
[place], [place] ELECTROCARDIOGRAM REPORT NAME: DEBORAH SANTACRUZ UNIT #: [id number] ROOM: DOCTOR: RAFIA DRAFT REPORT BIRTHDATE: [birth year] [facility] Test Date: 2018-09-30 Test Time: 14:57:58 Pat Name: DEBORAH SANTACRUZ Department: Room: Gender: Machine Operator Packaging: : 1950 Requested By: BRADY COSTA Order Number: [id number] Reading MD: Measurements Intervals [place] Rate: 96 P: 49 RI: 195 QRS: 18 QRSD: 93 T: 51 QT: 365 QTc: 462 Interpretive Statements Sinus rhythm Inferior infarct, old Anterior infarct, old Compared to ECG 09/25/2018 13:40:27 First degree AV block no longer present ST (T wave) deviation no longer present Myocardial infarct finding still present CM:EKGRPT:ELECTROCARDIOGRAM REPORT 1457 1201 BRADY MORATAYA DRAFT REPORT BRADY COSTA M.D.
[~2018-09-30 14:49] MED LIST changes: +MUCINEX ER600 MG PO; +Meclizine25 MG PO
[2018-09-30 15:08] LABS: HEMATOCRIT 36.2 % (42.0-52.0); HEMOGLOBIN 12.1 g/dl (14.0-18.0); MEAN CELL VOLUME 94.8 fl (80.0-94.0); MEAN CORPUSCULAR HGB 31.7 pg (27.0-31.0); MEAN CORPUSCULAR HGB CONC 33.4 g/dl (33.0-37.0); MEAN PLATELET VOLUME 11.3 fl (9.6-12.3); NUCLEATED RED BLOOD CELL 0.2 % (0.0-0.0); PLATELET COUNT AUTOMATED 193 10*3/uL (130-400); RED BLOOD COUNT 3.82 10*6/uL (4.50-5.90); RED CELL DISTRI WIDTH 14.6 % (0-14.5); WHITE BLOOD COUNT 10.2 10*3/uL (4.8-10.8)
[2018-09-30 15:27] LABS: ALBUMIN 2.9 gm/dl (3.1-4.5); ALKALINE PHOSPHATASE 134 U/L (45-117); BUN 37 mg/dl (7-24); CHLORIDE 103 mmol/L (98-107); CREATININE 1.72 mg/dL (0.70-1.30); POTASSIUM 4.5 mmol/L (3.5-5.1); SGOT/AST 31 IU/L (3-35); SGPT/ALT 73 U/L (12-78); SODIUM 138 mmol/L (136-145); TOTAL PROTEIN 6.3 gm/dL (6.4-8.2)
[2018-09-30 15:29] LABS: TROPONIN I < 0.015 ng/ml (<0.045)
[2018-09-30 15:53] LABS: ATYPICAL LYMPHS 1 % (0-0); TOTAL CELLS COUNTED 100 #CELLS
[2018-09-30 15:54] LABS: PLATELET SUFFICIENCY NORMAL (NORMAL); POLYCHROMASIA SLIGHT
[2018-09-30 17:24] VITALS: BP 151/67
[2018-09-30] MEDS ORDERED: Fioricet 325 MG1 TAB PO (18:29)
== END 2018-09-30 18:22 | disposition home or self-care (01) ==
LOC: ED 14:49
PROVIDERS: Emergency Medicine
DX: R07.1 Chest pain on breathing (principal); E11.65 Type 2 diabetes mellitus with hyperglycemia; I25.10 Atherosclerotic heart disease of native coronary artery without angina pectoris; J44.9 Chronic obstructive pulmonary disease, unspecified; I12.9 Hypertensive chronic kidney disease with stage 1 through stage 4 chronic kidney disease, or unspecified chronic kidney disease; E11.22 Type 2 diabetes mellitus with diabetic chronic kidney disease; N18.3 Chronic kidney disease, stage 3 (moderate); E03.9 Hypothyroidism, unspecified; E66.9 Obesity, unspecified; G40.909 Epilepsy, unspecified, not intractable, without status epilepticus; E78.5 Hyperlipidemia, unspecified; K21.9 Gastro-esophageal reflux disease without esophagitis; Z79.4 Long term (current) use of insulin; Z88.1 Allergy status to other antibiotic agents; Z79.899 Other long term (current) drug therapy; Z86.73 Personal history of transient ischemic attack (TIA), and cerebral infarction without residual deficits

== ENCOUNTER 2018-10-08 14:10 | Emergency (ER) | payer OTHER ==
[~2018-10-08] VITALS: Ht 182.8 cm; Wt 106.1 kg
[2018-10-08 15:30] VITALS: BP 160/75
== END 2018-10-08 15:39 | disposition home or self-care (01) ==
LOC: ED 14:10
DX: J40 Bronchitis, not specified as acute or chronic (principal); E11.9 Type 2 diabetes mellitus without complications; F17.200 Nicotine dependence, unspecified, uncomplicated; Z88.1 Allergy status to other antibiotic agents; Z88.8 Allergy status to other drugs, medicaments and biological substances; Z79.2 Long term (current) use of antibiotics; Z79.899 Other long term (current) drug therapy; Z79.4 Long term (current) use of insulin; Z89.412 Acquired absence of left great toe; Z89.422 Acquired absence of other left toe(s); Z90.49 Acquired absence of other specified parts of digestive tract

== ENCOUNTER 2018-10-14 10:39 | Emergency (ER) | payer OTHER ==
[~2018-10-14] VITALS: Wt 106.1 kg
[2018-10-14 10:40] VITALS: BP 167/78
[2018-10-14] MEDS ORDERED: Motrin,Rufen400 MG PO (13:58)
[2018-10-15] MEDS ORDERED: NEURONTIN300 MG PO (10:38)
== END 2018-10-14 14:57 | disposition home or self-care (01) ==
LOC: ED 10:39
DX: S80.01XA Contusion of right knee, initial encounter (principal); I25.10 Atherosclerotic heart disease of native coronary artery without angina pectoris; J44.9 Chronic obstructive pulmonary disease, unspecified; I13.0 Hypertensive heart and chronic kidney disease with heart failure and stage 1 through stage 4 chronic kidney disease, or unspecified chronic kidney disease; E11.22 Type 2 diabetes mellitus with diabetic chronic kidney disease; N18.3 Chronic kidney disease, stage 3 (moderate); I50.32 Chronic diastolic (congestive) heart failure; K21.9 Gastro-esophageal reflux disease without esophagitis; E78.5 Hyperlipidemia, unspecified; M10.9 Gout, unspecified; E03.9 Hypothyroidism, unspecified; E66.9 Obesity, unspecified; G40.909 Epilepsy, unspecified, not intractable, without status epilepticus; Z88.1 Allergy status to other antibiotic agents; Z79.899 Other long term (current) drug therapy; Z79.4 Long term (current) use of insulin; Z86.73 Personal history of transient ischemic attack (TIA), and cerebral infarction without residual deficits; W06.XXXA Fall from bed, initial encounter; Y93.89 Activity, other specified; Y92.89 Other specified places as the place of occurrence of the external cause; Y99.8 Other external cause status

== ENCOUNTER 2018-10-14 22:58 | Inpatient (IN) | payer OTHER ==
[~2018-10-14] VITALS: Ht 182.8 cm; Wt 118.8 kg
--- NOTE | ~2018-10-14 | EKG ---
[place], [place] ELECTROCARDIOGRAM REPORT NAME: DEBORAH SANTACRUZ UNIT #: [id number] ROOM: 416 DOCTOR: RAFIA DRAFT REPORT BIRTHDATE: [birth year] [facility] Test Date: 2018-10-16 Test Time: 13:56:01 Pat Name: DEBORAH SANTACRUZ Department: Room: 416 2 Gender: M Monotype Mechanic: : 1950 Requested By: SHEY OBREGON Order Number: [id number] Reading MD: Measurements Intervals [place] Rate: 65 P: -27 FL: 258 QRS: 28 QRSD: 110 T: 45 QT: 462 QTc: 481 Interpretive Statements Sinus rhythm Prolonged [place] interval Incomplete left bundle branch block Inferior infarct, old Consider anterior infarct Compared to ECG 09/30/2018 14:57:58 First degree AV block now present Left bundle-branch block now present Myocardial infarct finding still present CM:EKGRPT:ELECTROCARDIOGRAM REPORT [id number] 1057 SHEY MEHTA DRAFT REPORT SHEY OBREGON DO
[2018-10-14 22:58] VITALS: BP 136/61
[~2018-10-14 22:58] MED LIST changes: +Motrin,Rufen400 MG PO
[2018-10-15 00:02] LABS: BASO # 0.1 10*3/uL (0.0-0.1); BASO % 0.8 % (0.0-1.0); EOS # 0.4 10*3/uL (0.0-0.4); EOS % 4.9 % (1.0-4.0); HEMATOCRIT 30.3 % (42.0-52.0); HEMOGLOBIN 10.3 g/dl (14.0-18.0); LYMPH # 1.9 10*3/uL (1.3-4.4); LYMPH % 24.1 % (27.0-41.0); MEAN CELL VOLUME 92.7 fl (80.0-94.0); MEAN CORPUSCULAR HGB 31.5 pg (27.0-31.0); MEAN PLATELET VOLUME 11.2 fl (9.6-12.3); MONO # 0.5 10*3/uL (0.1-1.0); MONO % 6.2 % (3.0-9.0); NEUT # 4.9 10*3/uL (2.3-7.9); NUCLEATED RED BLOOD CELL 0.4 % (0.0-0.0); PLATELET COUNT AUTOMATED 160 10*3/uL (130-400); RED BLOOD COUNT 3.27 10*6/uL (4.50-5.90); RED CELL DISTRI WIDTH 13.9 % (0-14.5); WHITE BLOOD COUNT 7.7 10*3/uL (4.8-10.8)
[2018-10-15 00:14] LABS: CREATININE 1.55 mg/dL (0.70-1.30); POTASSIUM 4.6 mmol/L (3.5-5.1)
[2018-10-15 01:56] VITALS: BP 147/69
[2018-10-15 04:00] VITALS: BP 152/74
[2018-10-15 04:19] LABS: BASO % 0.7 % (0.0-1.0); EOS # 0.3 10*3/uL (0.0-0.4); EOS % 5.2 % (1.0-4.0); HEMATOCRIT 31.7 % (42.0-52.0); HEMOGLOBIN 10.6 g/dl (14.0-18.0); LYMPH # 1.6 10*3/uL (1.3-4.4); LYMPH % 28.4 % (27.0-41.0); MEAN CELL VOLUME 94.1 fl (80.0-94.0); MEAN CORPUSCULAR HGB 31.5 pg (27.0-31.0); MEAN CORPUSCULAR HGB CONC 33.4 g/dl (33.0-37.0); MEAN PLATELET VOLUME 11.2 fl (9.6-12.3); MONO # 0.4 10*3/uL (0.1-1.0); MONO % 6.7 % (3.0-9.0); NEUT # 3.4 10*3/uL (2.3-7.9); NEUT % 58.3 % (47.0-73.0); PLATELET COUNT AUTOMATED 151 10*3/uL (130-400); RED BLOOD COUNT 3.37 10*6/uL (4.50-5.90); RED CELL DISTRI WIDTH 13.8 % (0-14.5); WHITE BLOOD COUNT 5.8 10*3/uL (4.8-10.8)
[2018-10-15 04:33] LABS: ALBUMIN 2.7 gm/dl (3.1-4.5); ALKALINE PHOSPHATASE 141 U/L (45-117); BUN 31 mg/dl (7-24); CHLORIDE 108 mmol/L (98-107); CREATININE 1.35 mg/dL (0.70-1.30); PHOSPHOROUS 3.9 mg/dL (2.5-4.9); SGOT/AST 22 IU/L (3-35); SGPT/ALT 41 U/L (12-78); SODIUM 143 mmol/L (136-145)
[2018-10-15 08:00] VITALS: BP 156/78
[2018-10-15] MEDS ORDERED: NEURONTIN300 MG PO (10:38)
[2018-10-15 12:00] VITALS: BP 156/78
[2018-10-15 16:00] VITALS: BP 142/69
[2018-10-15 18:10] LABS: BODY FLUID WBC 107 /uL
[2018-10-15 18:54] LABS: BF LYMPHOCYTES 37 %; BF MONOCYTES 42 %; BF NEUTROPHILS 21 %
[2018-10-15 20:00] VITALS: BP 165/68
[2018-10-16] VITALS: BP 146/72
[2018-10-16 08:00] VITALS: BP 140/80; BP 177/92
[2018-10-16 12:00] VITALS: BP 157/72
[2018-10-16] MEDS ORDERED: INDOMETHACIN50 MG PO (15:48)
[2018-10-16] MEDS ORDERED: PREDNISONE10 MG PO (15:48)
[2018-10-16 16:00] VITALS: BP 149/89
== END 2018-10-16 17:22 | disposition home or self-care (01) | DRG 564 ==
LOC: ED 22:58 → EDHOLD 10-15 03:11 → 4E 10-15 03:11
PROVIDERS: Emergency Medicine Emergency Medical Services; Family Medicine; Orthopaedic Surgery
PROC: 0S9C3ZZ Drainage of Right Knee Joint, Percutaneous Approach (ICD-10-PCS; principal; 2018-10-15)
DX: M25.461 Effusion, right knee (principal); M10.061 Idiopathic gout, right knee; E43 Unspecified severe protein-calorie malnutrition; E87.2 Acidosis; I50.32 Chronic diastolic (congestive) heart failure; D68.59 Other primary thrombophilia; I13.0 Hypertensive heart and chronic kidney disease with heart failure and stage 1 through stage 4 chronic kidney disease, or unspecified chronic kidney disease; M86.671 Other chronic osteomyelitis, right ankle and foot; I48.92 Unspecified atrial flutter; L03.115 Cellulitis of right lower limb; E87.8 Other disorders of electrolyte and fluid balance, not elsewhere classified; E11.42 Type 2 diabetes mellitus with diabetic polyneuropathy; I25.10 Atherosclerotic heart disease of native coronary artery without angina pectoris; E11.65 Type 2 diabetes mellitus with hyperglycemia; J44.9 Chronic obstructive pulmonary disease, unspecified; E11.22 Type 2 diabetes mellitus with diabetic chronic kidney disease; N18.3 Chronic kidney disease, stage 3 (moderate); G40.909 Epilepsy, unspecified, not intractable, without status epilepticus; N40.0 Benign prostatic hyperplasia without lower urinary tract symptoms; M19.90 Unspecified osteoarthritis, unspecified site; Z96.641 Presence of right artificial hip joint; F32.9 Major depressive disorder, single episode, unspecified; E83.42 Hypomagnesemia; D53.9 Nutritional anemia, unspecified; M50.320 Other cervical disc degeneration, mid-cervical region, unspecified level; M43.10 Spondylolisthesis, site unspecified; G89.29 Other chronic pain; E53.8 Deficiency of other specified B group vitamins; E66.01 Morbid (severe) obesity due to excess calories; E11.69 Type 2 diabetes mellitus with other specified complication; L97.519 Non-pressure chronic ulcer of other part of right foot with unspecified severity; F41.1 Generalized anxiety disorder; E03.9 Hypothyroidism, unspecified; K44.9 Diaphragmatic hernia without obstruction or gangrene; Z86.73 Personal history of transient ischemic attack (TIA), and cerebral infarction without residual deficits; Z95.5 Presence of coronary angioplasty implant and graft; Z90.49 Acquired absence of other specified parts of digestive tract; Z89.412 Acquired absence of left great toe; Z89.422 Acquired absence of other left toe(s); Z68.35 Body mass index [BMI] 35.0-35.9, adult; Z72.0 Tobacco use

== ENCOUNTER 2018-10-19 22:12 | Emergency (ER) | payer OTHER ==
[~2018-10-19] VITALS: Ht 185.4 cm; Wt 99.8 kg
[~2018-10-19 22:12] MED LIST changes: +INDOMETHACIN50 MG PO
[2018-10-19 22:13] VITALS: BP 165/86
[2018-10-19 23:09] LABS: ALBUMIN 2.8 gm/dl (3.1-4.5); CREATININE 1.88 mg/dL (0.70-1.30); POTASSIUM 3.8 mmol/L (3.5-5.1); TOTAL PROTEIN 6.4 gm/dL (6.4-8.2)
[2018-10-19 23:10] LABS: BASO % 0.4 % (0.0-1.0); EOS # 0.2 10*3/uL (0.0-0.4); EOS % 3.1 % (1.0-4.0); HEMATOCRIT 34.3 % (42.0-52.0); HEMOGLOBIN 11.1 g/dl (14.0-18.0); LYMPH # 2.7 10*3/uL (1.3-4.4); LYMPH % 35.3 % (27.0-41.0); MEAN CELL VOLUME 95.3 fl (80.0-94.0); MEAN CORPUSCULAR HGB 30.8 pg (27.0-31.0); MEAN CORPUSCULAR HGB CONC 32.4 g/dl (33.0-37.0); MONO # 0.8 10*3/uL (0.1-1.0); NEUT # 3.9 10*3/uL (2.3-7.9); NEUT % 50.5 % (47.0-73.0); PLATELET COUNT AUTOMATED 189 10*3/uL (130-400); RED CELL DISTRI WIDTH 14.5 % (0-14.5); WHITE BLOOD COUNT 7.7 10*3/uL (4.8-10.8)
== END 2018-10-20 02:12 | disposition home or self-care (01) ==
LOC: ED 22:12
PROVIDERS: Student in an Organized Health Care Education/Training Program
DX: R19.7 Diarrhea, unspecified (principal); K92.1 Melena; R10.30 Lower abdominal pain, unspecified; R50.9 Fever, unspecified; R11.2 Nausea with vomiting, unspecified; I25.10 Atherosclerotic heart disease of native coronary artery without angina pectoris; J44.9 Chronic obstructive pulmonary disease, unspecified; I13.0 Hypertensive heart and chronic kidney disease with heart failure and stage 1 through stage 4 chronic kidney disease, or unspecified chronic kidney disease; E11.22 Type 2 diabetes mellitus with diabetic chronic kidney disease; N18.3 Chronic kidney disease, stage 3 (moderate); I50.32 Chronic diastolic (congestive) heart failure; K21.9 Gastro-esophageal reflux disease without esophagitis; E03.9 Hypothyroidism, unspecified; G40.909 Epilepsy, unspecified, not intractable, without status epilepticus; E66.9 Obesity, unspecified; M10.9 Gout, unspecified; E11.40 Type 2 diabetes mellitus with diabetic neuropathy, unspecified; M86.9 Osteomyelitis, unspecified; Z88.1 Allergy status to other antibiotic agents; Z79.4 Long term (current) use of insulin; Z79.899 Other long term (current) drug therapy; Z86.73 Personal history of transient ischemic attack (TIA), and cerebral infarction without residual deficits

== ENCOUNTER → 2018-10-21 | Outpatient (CLI) | payer OTHER | END | disposition home or self-care (01) | LOC: RESCLI 11:16 | DX: I10 Essential (primary) hypertension (principal); K52.9 Noninfective gastroenteritis and colitis, unspecified; M10.9 Gout, unspecified; E11.65 Type 2 diabetes mellitus with hyperglycemia; E83.42 Hypomagnesemia; F17.210 Nicotine dependence, cigarettes, uncomplicated; Z79.899 Other long term (current) drug therapy; Z88.8 Allergy status to other drugs, medicaments and biological substances ==

== ENCOUNTER → 2018-10-26 | Outpatient (CLI) | payer OTHER | END | disposition home or self-care (01) | LOC: RESCLI 09:20 | DX: A04.72 Enterocolitis due to Clostridium difficile, not specified as recurrent (principal); I12.9 Hypertensive chronic kidney disease with stage 1 through stage 4 chronic kidney disease, or unspecified chronic kidney disease; E11.22 Type 2 diabetes mellitus with diabetic chronic kidney disease; N18.3 Chronic kidney disease, stage 3 (moderate); E78.5 Hyperlipidemia, unspecified; I25.10 Atherosclerotic heart disease of native coronary artery without angina pectoris; J44.9 Chronic obstructive pulmonary disease, unspecified; E66.9 Obesity, unspecified; Z88.8 Allergy status to other drugs, medicaments and biological substances; Z79.899 Other long term (current) drug therapy ==

== ENCOUNTER → 2018-11-04 | Outpatient (CLI) | payer OTHER ==
[~2018-11-04] MED LIST changes: +CARAFATE1 GM PO; +FLONASE ALLERG9.9 ML NAS; +LANTUS SOL100 UNIT/1 SQ; +LOMOTIL 2.5-0.1 EACH PO; +LOPERAMIDE HCL2 MG PO; +METOPROLOL SUC100 M1 PO; +NEURONTIN400 MG PO; +OCUFLOX 0.3% 5 M5 ML OT; +SYMB160 INH; +Synthroid,Levo88 MCG PO; -TOPROL XL25 MG PO; +VITAMIN D32000 UNI1 PO; +ZYLOPRIM100 MG PO
== END | disposition home or self-care (01) ==
LOC: RESCLI 08:23 → US 08:23
DX: R23.0 Cyanosis (principal); I70.213 Atherosclerosis of native arteries of extremities with intermittent claudication, bilateral legs

== ENCOUNTER → 2018-11-17 | Outpatient (CLI) | payer OTHER | END | disposition home or self-care (01) | LOC: RESCLI 13:02 | DX: I48.2 Chronic atrial fibrillation (principal); M10.9 Gout, unspecified; F41.9 Anxiety disorder, unspecified; M19.90 Unspecified osteoarthritis, unspecified site; E11.65 Type 2 diabetes mellitus with hyperglycemia; G89.4 Chronic pain syndrome; E78.5 Hyperlipidemia, unspecified; E03.9 Hypothyroidism, unspecified; J44.9 Chronic obstructive pulmonary disease, unspecified; I10 Essential (primary) hypertension; G40.909 Epilepsy, unspecified, not intractable, without status epilepticus; F32.9 Major depressive disorder, single episode, unspecified; K22.10 Ulcer of esophagus without bleeding; K21.9 Gastro-esophageal reflux disease without esophagitis; I47.1 Supraventricular tachycardia; I25.118 Atherosclerotic heart disease of native coronary artery with other forms of angina pectoris; F41.1 Generalized anxiety disorder; N40.0 Benign prostatic hyperplasia without lower urinary tract symptoms; E66.01 Morbid (severe) obesity due to excess calories; H91.93 Unspecified hearing loss, bilateral; G62.9 Polyneuropathy, unspecified; F39 Unspecified mood [affective] disorder; B86 Scabies; F17.200 Nicotine dependence, unspecified, uncomplicated; Z79.899 Other long term (current) drug therapy; Z96.22 Myringotomy tube(s) status; Z79.4 Long term (current) use of insulin; Z88.8 Allergy status to other drugs, medicaments and biological substances ==

== ENCOUNTER 2018-11-24 13:42 | Emergency (ER) | payer OTHER ==
[~2018-11-24] VITALS: Ht 182.8 cm; Wt 109.3 kg
[~2018-11-24 13:42] MED LIST changes: -CARAFATE1 GM PO; -FLONASE ALLERG9.9 ML NAS; -LANTUS SOL100 UNIT/1 SQ; -LOMOTIL 2.5-0.1 EACH PO; -LOPERAMIDE HCL2 MG PO; -METOPROLOL SUC100 M1 PO; -OCUFLOX 0.3% 5 M5 ML OT; -SYMB160 INH; -Synthroid,Levo88 MCG PO; -VITAMIN D32000 UNI1 PO; -ZYLOPRIM100 MG PO
[2018-11-24 13:43] VITALS: BP 121/79
[2018-11-24 14:24] LABS: BASO # 0.1 10*3/uL (0.0-0.1); BASO % 0.6 % (0.0-1.0); EOS # 0.4 10*3/uL (0.0-0.4); EOS % 5.1 % (1.0-4.0); HEMATOCRIT 36.4 % (42.0-52.0); HEMOGLOBIN 12.3 g/dl (14.0-18.0); LYMPH # 1.8 10*3/uL (1.3-4.4); LYMPH % 21.9 % (27.0-41.0); MEAN CELL VOLUME 92.2 fl (80.0-94.0); MEAN CORPUSCULAR HGB 31.1 pg (27.0-31.0); MEAN CORPUSCULAR HGB CONC 33.8 g/dl (33.0-37.0); MONO # 0.4 10*3/uL (0.1-1.0); MONO % 4.5 % (3.0-9.0); NEUT # 5.6 10*3/uL (2.3-7.9); NEUT % 67.3 % (47.0-73.0); PLATELET COUNT AUTOMATED 146 10*3/uL (130-400); RED BLOOD COUNT 3.95 10*6/uL (4.50-5.90); RED CELL DISTRI WIDTH 13.5 % (0-14.5); WHITE BLOOD COUNT 8.3 10*3/uL (4.8-10.8)
[2018-11-24 15:01] LABS: ALKALINE PHOSPHATASE 151 U/L (45-117); BUN 26 mg/dl (7-24); CHLORIDE 108 mmol/L (98-107); CREATININE 1.34 mg/dL (0.70-1.30); LIPASE 438 U/L (73-393); POTASSIUM 4.4 mmol/L (3.5-5.1); SGOT/AST 52 IU/L (3-35); SGPT/ALT 72 U/L (12-78); SODIUM 140 mmol/L (136-145); TOTAL PROTEIN 6.3 gm/dL (6.4-8.2)
[2018-11-24] MEDS ORDERED: LOMOTIL 2.5-0.1 EACH PO (15:19)
[2018-11-24 15:41] LABS: BILIRUBIN NEGATIVE (NEGATIVE); BLOOD 2+ (NEGATIVE); CLARITY CLEAR (CLEAR); COLOR YELLOW (YELLOW); GLUCOSE 1+ (NEGATIVE); KETONE NEGATIVE (NEGATIVE); LEUKO ESTERASE NEGATIVE (NEGATIVE); NITRITE NEGATIVE (NEGATIVE); SPECIFIC GRAVITY >= 1.030 (1.005-1.030); UROBILINOGEN 0.2 E.U./dl (0.2-1.0)
[2018-11-24 15:54] LABS: BACTERIA TRACE; WBC 0-2 wbc/hpf (0-5)
[2018-12-20] MEDS ORDERED: ZYLOPRIM100 MG PO (13:26)
[2018-12-20] MEDS ORDERED: PROAIR HFA8.5 GM INH (13:29)
[2018-12-20] MEDS ORDERED: SYMB160 INH (13:30)
[2018-12-20] MEDS ORDERED: LOPERAMIDE HCL2 MG PO (13:33)
[2018-12-20] MEDS ORDERED: ULTRAM50 MG PO (13:37)
[2018-12-20] MEDS ORDERED: OCUFLOX 0.3% 5 M5 ML OT (13:41)
[2019-01-11] MEDS ORDERED: FLONASE ALLERG9.9 ML NAS (19:01)
[2019-01-11] MEDS ORDERED: NOVOLOG FL100 UNIT/1 SC (19:02)
[2019-01-11] MEDS ORDERED: CARAFATE1 GM PO (19:03)
[2019-01-11] MEDS ORDERED: DICYCLOMINE HCL10 MG PO (19:04)
[2019-01-17] MEDS ORDERED: MERREM IV1 GM IV (14:53)
[2019-01-17] MEDS ORDERED: PREDNISONE10 MG PO (15:47)
[2019-01-17] MEDS ORDERED: LANTUS SOL100 UNIT/1 SQ (15:47)
[2019-01-17] MEDS ORDERED: Synthroid,Levo88 MCG PO (15:47)
[2019-01-17] MEDS ORDERED: METOPROLOL SUC100 M1 PO (15:47)
[2019-01-23] MEDS ORDERED: LANTUS SOL100 UNIT/1 SQ (08:48)
[2019-01-23] MEDS ORDERED: Synthroid,Lev100 MCG PO (08:53)
== END 2018-11-24 16:23 | disposition home or self-care (01) ==
LOC: ED 13:42
PROVIDERS: Physician Assistant
DX: R19.7 Diarrhea, unspecified (principal); N18.9 Chronic kidney disease, unspecified; E11.22 Type 2 diabetes mellitus with diabetic chronic kidney disease; I12.9 Hypertensive chronic kidney disease with stage 1 through stage 4 chronic kidney disease, or unspecified chronic kidney disease; J44.9 Chronic obstructive pulmonary disease, unspecified; I25.10 Atherosclerotic heart disease of native coronary artery without angina pectoris; E78.5 Hyperlipidemia, unspecified; F17.200 Nicotine dependence, unspecified, uncomplicated; Z88.8 Allergy status to other drugs, medicaments and biological substances; Z88.1 Allergy status to other antibiotic agents; Z79.4 Long term (current) use of insulin; Z79.899 Other long term (current) drug therapy; Z90.49 Acquired absence of other specified parts of digestive tract; Z89.412 Acquired absence of left great toe; Z89.422 Acquired absence of other left toe(s)

== ENCOUNTER → 2018-11-26 | Outpatient (CLI) | payer OTHER ==
[~2018-11-26] MED LIST changes: +BENADRYL ALLERG25 M5 PO; +CARAFATE1 GM PO; +CYMBALTA30 MG PO; +DICYCLOMINE HYD10 MG PO; +ERTAPENEM1 GM IV; +FLONASE ALLERG9.9 ML NAS; +KEFLEX500 M1 PO; +LANTUS SOL100 UNIT/1 SQ; +LEVEMIR FL100 UNIT/1 SC; +LEVOXYL88 MCG PO; +LOMOTIL 2.5-0.1 EACH PO; +LOPERAMIDE HCL2 MG PO; +METOPROLOL SUC100 M1 PO; +METOPROLOL SUC100 M2 PO; +MOTION SICKNESS25 MG PO; +OCUFLOX 0.3% 5 M5 ML OT; +ONDANSETRON HYDR4 M1 PO; +SYMB160 INH; +SYNTHROID,LEVO88 MCG PO; +Synthroid,Levo88 MCG PO; +VITAMIN D32000 UNI1 PO; +ZYLOPRIM100 MG PO
== END | disposition home or self-care (01) ==
LOC: RESCLI 02:25
DX: F41.9 Anxiety disorder, unspecified (principal); A04.72 Enterocolitis due to Clostridium difficile, not specified as recurrent; M19.90 Unspecified osteoarthritis, unspecified site; I12.9 Hypertensive chronic kidney disease with stage 1 through stage 4 chronic kidney disease, or unspecified chronic kidney disease; E11.65 Type 2 diabetes mellitus with hyperglycemia; E11.22 Type 2 diabetes mellitus with diabetic chronic kidney disease; N18.3 Chronic kidney disease, stage 3 (moderate); G89.4 Chronic pain syndrome; E78.5 Hyperlipidemia, unspecified; E03.9 Hypothyroidism, unspecified; M10.9 Gout, unspecified; J44.9 Chronic obstructive pulmonary disease, unspecified; E83.42 Hypomagnesemia; G40.909 Epilepsy, unspecified, not intractable, without status epilepticus; F32.9 Major depressive disorder, single episode, unspecified; K22.10 Ulcer of esophagus without bleeding; K21.9 Gastro-esophageal reflux disease without esophagitis; I47.1 Supraventricular tachycardia; I25.118 Atherosclerotic heart disease of native coronary artery with other forms of angina pectoris; F41.1 Generalized anxiety disorder; N40.0 Benign prostatic hyperplasia without lower urinary tract symptoms; E66.01 Morbid (severe) obesity due to excess calories; I48.2 Chronic atrial fibrillation; H91.93 Unspecified hearing loss, bilateral; G62.9 Polyneuropathy, unspecified; F39 Unspecified mood [affective] disorder; B86 Scabies; F17.200 Nicotine dependence, unspecified, uncomplicated; Z79.899 Other long term (current) drug therapy; Z79.4 Long term (current) use of insulin; Z96.22 Myringotomy tube(s) status; Z86.2 Personal history of diseases of the blood and blood-forming organs and certain disorders involving the immune mechanism; Z88.8 Allergy status to other drugs, medicaments and biological substances

== ENCOUNTER 2018-12-21 13:41 | Inpatient (IN) | payer OTHER ==
[~2018-12-21] VITALS: Ht 182.8 cm; Wt 110.2 kg
--- NOTE | ~2018-12-21 | EKG ---
[place], [place] ELECTROCARDIOGRAM REPORT NAME: DEBORAH SANTACRUZ UNIT #: [id number] ROOM: 426 DOCTOR: RAFIA DRAFT REPORT BIRTHDATE: [birth year] [facility] Test Date: 2018-12-21 Test Time: 17:22:34 Pat Name: DEBORAH SANTACRUZ Department: Room: 42 1 Gender: M Osteopathic Neurologist: : 1950 Requested By: AASHISH MAS Order Number: [id number] Reading MD: Measurements Intervals [place] Rate: 63 P: -8 OK: 248 QRS: 10 QRSD: 103 T: 53 QT: 421 QTc: 431 Interpretive Statements Sinus rhythm Prolonged [place] interval Inferior infarct, old Anterior infarct, old Baseline wander in lead(s) III,aVL,V1,V2,V3 Compared to ECG 10/28/2018 15:17:44 No significant changes CM:EKGRPT:ELECTROCARDIOGRAM REPORT 1722 1423 AASHISH MEHTA DRAFT REPORT AASHISH MAS DO
--- NOTE | ~2018-12-21 | EKG ---
[place], [place] ELECTROCARDIOGRAM REPORT NAME: DEBORAH SANTACRUZ UNIT #: [id number] ROOM: 426 DOCTOR: RAFIA DRAFT REPORT BIRTHDATE: [birth year] [facility] Test Date: 2018-12-21 Test Time: 20:02:20 Pat Name: DEBORAH SANTACRUZ Department: Room: 42 1 Gender: M Reconciliation Coordinator: : 1950 Requested By: AASHISH MAS Order Number: [id number] Reading MD: Measurements Intervals [place] Rate: 68 P: 5 ME: 245 QRS: 28 QRSD: 102 T: 68 QT: 436 QTc: 464 Interpretive Statements Sinus rhythm Prolonged [place] interval Anterior infarct, old Nonspecific T abnormalities, lateral leads Baseline wander in lead(s) I,II,aVR,aVF,V3 Compared to ECG 10/28/2018 15:17:44 T-wave abnormality now present Myocardial infarct finding still present CM:EKGRPT:ELECTROCARDIOGRAM REPORT 01 1703 AASHISH MEHTA DRAFT REPORT AASHISH MAS DO
--- NOTE | ~2018-12-21 | EKG ---
[place], [place] ELECTROCARDIOGRAM REPORT NAME: DEBORAH SANTACRUZ UNIT #: [id number] ROOM: DOCTOR: RAFIA DRAFT REPORT BIRTHDATE: [birth year] [facility] Test Date: 2018-12-21 Test Time: 14:10:52 Pat Name: DEBORAH SANTACRUZ Department: Room: Gender: Child Welfare Counselor: : 1950 Requested By: RY MARIA Order Number: [id number] Reading MD: Measurements Intervals [place] Rate: 66 P: 17 NV: 257 QRS: 27 QRSD: 104 T: 63 QT: 429 QTc: 450 Interpretive Statements Sinus rhythm Prolonged [place] interval Inferior infarct, old Anterior infarct, old Baseline wander in lead(s) I,II,aVR Compared to ECG 10/28/2018 15:17:44 No significant changes CM:EKGRPT:ELECTROCARDIOGRAM REPORT 1410 1114 RY MEHTA DRAFT REPORT RY MARIA DO
[~2018-12-21 13:41] MED LIST changes: -BENADRYL ALLERG25 M5 PO; -CARAFATE1 GM PO; -CYMBALTA30 MG PO; -DICYCLOMINE HYD10 MG PO; -ERTAPENEM1 GM IV; -FLONASE ALLERG9.9 ML NAS; -KEFLEX500 M1 PO; -LANTUS SOL100 UNIT/1 SQ; -LEVEMIR FL100 UNIT/1 SC; -LEVOXYL88 MCG PO; -METOPROLOL SUC100 M1 PO; -METOPROLOL SUC100 M2 PO; -MOTION SICKNESS25 MG PO; -ONDANSETRON HYDR4 M1 PO; -SYNTHROID,LEVO88 MCG PO; -Synthroid,Levo88 MCG PO; -VITAMIN D32000 UNI1 PO
[2018-12-21 13:44] VITALS: BP 171/80
[2018-12-21 15:39] LABS: BASO % 0.5 % (0.0-1.0); EOS # 0.3 10*3/uL (0.0-0.4); EOS % 3.9 % (1.0-4.0); HEMATOCRIT 36.4 % (42.0-52.0); HEMOGLOBIN 12.1 g/dl (14.0-18.0); LYMPH # 1.5 10*3/uL (1.3-4.4); LYMPH % 23.4 % (27.0-41.0); MEAN CELL VOLUME 91.2 fl (80.0-94.0); MEAN CORPUSCULAR HGB 30.3 pg (27.0-31.0); MEAN CORPUSCULAR HGB CONC 33.2 g/dl (33.0-37.0); MEAN PLATELET VOLUME 11.6 fl (9.6-12.3); MONO # 0.4 10*3/uL (0.1-1.0); MONO % 6.2 % (3.0-9.0); NEUT # 4.2 10*3/uL (2.3-7.9); NEUT % 65.5 % (47.0-73.0); PLATELET COUNT AUTOMATED 156 10*3/uL (130-400); RED BLOOD COUNT 3.99 10*6/uL (4.50-5.90); RED CELL DISTRI WIDTH 13.5 % (0-14.5); WHITE BLOOD COUNT 6.4 10*3/uL (4.8-10.8)
[2018-12-21 15:48] LABS: ACT PARTIAL THROMBO TIME 31.6 SECONDS (20.8-31.5); INTERNATIONAL NORM RATIO 1.2 (2.0-3.5)
--- NOTE | 2018-12-21 15:50 | NUR ---
PT DENIES ANY WOUNDS AT THIS TIME.
[2018-12-21 15:59] LABS: ALBUMIN 2.9 gm/dl (3.1-4.5); ALKALINE PHOSPHATASE 168 U/L (45-117); BUN 25 mg/dl (7-24); CHLORIDE 111 mmol/L (98-107); CREATININE 1.35 mg/dL (0.70-1.30); LIPASE 142 U/L (73-393); SGOT/AST 37 IU/L (3-35); SGPT/ALT 70 U/L (12-78); SODIUM 140 mmol/L (136-145); TOTAL PROTEIN 6.7 gm/dL (6.4-8.2)
[2018-12-21 16:00] VITALS: BP 122/64
[2018-12-21 16:01] LABS: TROPONIN I < 0.015 ng/ml (<0.045)
--- NOTE | 2018-12-21 16:28 | NUR ---
A 68, admitted to , under the services of CANDE Baker DO with a diagnosis of syncope. Chief complaint is fall today. Patient arrived via stretcher from ER. Monitor applied. Initial assessment completed. Vital signs taken and recorded. CANDE BAKER DO notified of admission to the unit. Orders received. See assessment for past medical history, medications and allergies. Patient and/or family oriented to unit. [facility] visitation policy reviewed. Clothing/patient valuable form completed. DEVYN BERG
[2018-12-21 16:42] VITALS: BP 122/64
--- NOTE | 2018-12-21 17:52 | NUR ---
DR. ALVARADO NOTIFIED OF CONSULT.
--- NOTE | 2018-12-21 19:00 | NUR ---
PERMETHRIN CREAM APPLIED ORDERED
[2018-12-21 20:00] VITALS: BP 153/69; BP 153/89
--- NOTE | 2018-12-21 21:45 | NUR ---
IV IN RIGHT FOOT PULLED OUT AND DISCONTINUED. Hep Lock discontinued. Site asymptomatic. Pressure applied. Sterile dressing applied. IV started right wrist with #22 angiocath after 1ST attempts. The IV site was prepped with Chloraprep. Heparin lock attached. Sterile dressing applied. Patient tolerated precedure well. Procedure performed according to [facility] policy & procedure. YAMILA ETIENNE
--- NOTE | 2018-12-21 23:56 | NUR ---
ULTRAM GIVEN PER ORDER FOR PAIN IN RIGHT LEG AND HIP RATED "8" SEE MAR.
[2018-12-22] VITALS: BP 145/76
--- NOTE | 2018-12-22 00:50 | NUR ---
ULTRAM HELPING A LITTLE PER PT.
--- NOTE | 2018-12-22 02:50 | NUR ---
PT. UPSET WANTING TO WALK IN THE HALLWAY EXPLAINED TO PATIENT HE HAD FALLEN AND WE DO NOT WANT HIM UP WALKING IN THE HALLWAY AT THIS TIME UNTIL HE IS REEVALUATED. PT. C/O PAIN MEDICATION ULTRAM IS NOT WORKING FOR THE PAIN IN HIS LEG AND HE CAN'T SLEEP AND "IM GOING TO SIGN MY SELF OUT". CALLED DR NOVA AND NOTIFIED HER OF THIS AND ORDERS RECEIVED.
--- NOTE | 2018-12-22 03:05 | NUR ---
SPOKE WITH PATIENT AND HE IS WILLING TO TAKE HIS MEDICATION AND LAY BACK DOWN IN BED.
--- NOTE | 2018-12-22 03:35 | NUR ---
PERCOCET GIVEN PER ORDER FOR PAIN IN LEGS AND VISTARIL GIVEN PER ORDER FOR ANXIETY. SEE MAR.
--- NOTE | 2018-12-22 04:31 | NUR ---
PERCOCET AND VISTARIL EFFECTIVE FOR PAIN AND ANXIETY PER PT.
--- NOTE | 2018-12-22 04:48 | NUR ---
24 HR chart check completed.
[2018-12-22 06:17] LABS: BASO % 0.5 % (0.0-1.0); EOS # 0.3 10*3/uL (0.0-0.4); EOS % 4.3 % (1.0-4.0); HEMATOCRIT 32.7 % (42.0-52.0); HEMOGLOBIN 10.7 g/dl (14.0-18.0); LYMPH # 1.6 10*3/uL (1.3-4.4); LYMPH % 25.7 % (27.0-41.0); MEAN CELL VOLUME 92.6 fl (80.0-94.0); MEAN CORPUSCULAR HGB 30.3 pg (27.0-31.0); MEAN CORPUSCULAR HGB CONC 32.7 g/dl (33.0-37.0); MEAN PLATELET VOLUME 11.1 fl (9.6-12.3); MONO # 0.4 10*3/uL (0.1-1.0); MONO % 6.3 % (3.0-9.0); NEUT # 3.9 10*3/uL (2.3-7.9); NEUT % 62.6 % (47.0-73.0); PLATELET COUNT AUTOMATED 122 10*3/uL (130-400); RED BLOOD COUNT 3.53 10*6/uL (4.50-5.90); RED CELL DISTRI WIDTH 13.6 % (0-14.5); WHITE BLOOD COUNT 6.2 10*3/uL (4.8-10.8)
[2018-12-22 06:45] LABS: ALBUMIN 2.7 gm/dl (3.1-4.5); ALKALINE PHOSPHATASE 140 U/L (45-117); BUN 29 mg/dl (7-24); CHLORIDE 111 mmol/L (98-107); CHOLESTEROL 110 mg/dL (<200); CREATININE 1.27 mg/dL (0.70-1.30); FREE T4 0.99 ng/dl (0.76-1.46); HDL CHOLESTEROL 34 mg/dl (40-60); LDL CHOLESTEROL 11 mg/dL (9-159); POTASSIUM 5.2 mmol/L (3.5-5.1); SGOT/AST 20 IU/L (3-35); SGPT/ALT 57 U/L (12-78); SODIUM 141 mmol/L (136-145); TRIGLYCERIDES 325 mg/dl (<150); VLDL CHOLESTEROL 65 mg/dL (6-40)
[2018-12-22 06:50] LABS: THYROID STIM HORMONE (HS) 0.149 uIU/ml (0.358-4.75)
--- NOTE | 2018-12-22 09:00 | NUR ---
case management visits with patient, patient lives at home, uses a walker to ambulate, patient has [facility] at home, called [facility] and staff stated that patient was scheduled to have an aid visit him at 11am, that staff would reschedule the aid for later today. patient denies any other needs at this time
[2018-12-22] MEDS ORDERED: VITAMIN D32000 UNI1 PO (09:26)
--- NOTE | 2018-12-22 10:48 | NUR ---
PT DISCHARGED AT THIS TIME. IV REMOVED AND PRESSURE DRESSING APPLIED. HEART MONITOR RETURNED TO FLOOR. VERBALIZED UNDERSTANDING OF DISCHARGE INSTRUCTIONS.
[2019-01-11] MEDS ORDERED: FLONASE ALLERG9.9 ML NAS (19:01)
[2019-01-11] MEDS ORDERED: NOVOLOG FL100 UNIT/1 SC (19:02)
[2019-01-11] MEDS ORDERED: CARAFATE1 GM PO (19:03)
[2019-01-11] MEDS ORDERED: DICYCLOMINE HCL10 MG PO (19:04)
[2019-01-17] MEDS ORDERED: MERREM IV1 GM IV (14:53)
[2019-01-17] MEDS ORDERED: LANTUS SOL100 UNIT/1 SQ (15:47)
[2019-01-17] MEDS ORDERED: METOPROLOL SUC100 M1 PO (15:47)
[2019-01-17] MEDS ORDERED: Synthroid,Levo88 MCG PO (15:47)
[2019-01-17] MEDS ORDERED: PREDNISONE10 MG PO (15:47)
[2019-01-23] MEDS ORDERED: LANTUS SOL100 UNIT/1 SQ (08:48)
[2019-01-23] MEDS ORDERED: SYNTHROID,LEVO88 MCG PO (08:53)
[2019-01-23] MEDS ORDERED: Synthroid,Lev100 MCG PO (08:53)
[2019-01-30] MEDS ORDERED: CLINDAMYCIN HC300 MG PO (17:44)
[2019-04-23] MEDS ORDERED: KEFLEX500 M1 PO (14:33)
== END 2018-12-22 10:48 | disposition home or self-care (01) | DRG 312 ==
LOC: ED 13:41 → 4E 14:40 → EDHOLD 14:40 → 4E 14:45
PROVIDERS: Emergency Medicine; Internal Medicine Nephrology; ADMIT Internal Medicine
DX: R55 Syncope and collapse (principal); E44.0 Moderate protein-calorie malnutrition; E87.2 Acidosis; I48.92 Unspecified atrial flutter; I50.32 Chronic diastolic (congestive) heart failure; I13.0 Hypertensive heart and chronic kidney disease with heart failure and stage 1 through stage 4 chronic kidney disease, or unspecified chronic kidney disease; D68.59 Other primary thrombophilia; M86.671 Other chronic osteomyelitis, right ankle and foot; D64.9 Anemia, unspecified; G40.909 Epilepsy, unspecified, not intractable, without status epilepticus; E11.42 Type 2 diabetes mellitus with diabetic polyneuropathy; B86 Scabies; R42 Dizziness and giddiness; D72.810 Lymphocytopenia; R74.0 Nonspecific elevation of levels of transaminase and lactic acid dehydrogenase [LDH]; R74.8 Abnormal levels of other serum enzymes; R79.89 Other specified abnormal findings of blood chemistry; R79.82 Elevated C-reactive protein (CRP); K21.9 Gastro-esophageal reflux disease without esophagitis; N40.0 Benign prostatic hyperplasia without lower urinary tract symptoms; E11.65 Type 2 diabetes mellitus with hyperglycemia; M1A.9XX0 Chronic gout, unspecified, without tophus (tophi); I25.10 Atherosclerotic heart disease of native coronary artery without angina pectoris; R07.89 Other chest pain; E11.69 Type 2 diabetes mellitus with other specified complication; M43.10 Spondylolisthesis, site unspecified; E11.621 Type 2 diabetes mellitus with foot ulcer; L97.519 Non-pressure chronic ulcer of other part of right foot with unspecified severity; M51.37 Other intervertebral disc degeneration, lumbosacral region; G89.29 Other chronic pain; F41.1 Generalized anxiety disorder; F32.9 Major depressive disorder, single episode, unspecified; E03.9 Hypothyroidism, unspecified; Z96.641 Presence of right artificial hip joint; E66.9 Obesity, unspecified; J44.9 Chronic obstructive pulmonary disease, unspecified; E11.22 Type 2 diabetes mellitus with diabetic chronic kidney disease; N18.3 Chronic kidney disease, stage 3 (moderate); K44.9 Diaphragmatic hernia without obstruction or gangrene; E53.8 Deficiency of other specified B group vitamins; M17.11 Unilateral primary osteoarthritis, right knee; W18.30XA Fall on same level, unspecified, initial encounter; Y93.89 Activity, other specified; Y92.89 Other specified places as the place of occurrence of the external cause; Y99.8 Other external cause status; Z72.0 Tobacco use; Z79.4 Long term (current) use of insulin; Z68.32 Body mass index [BMI] 32.0-32.9, adult; Z86.73 Personal history of transient ischemic attack (TIA), and cerebral infarction without residual deficits; Z95.5 Presence of coronary angioplasty implant and graft; Z89.412 Acquired absence of left great toe; Z80.1 Family history of malignant neoplasm of trachea, bronchus and lung; Z82.49 Family history of ischemic heart disease and other diseases of the circulatory system; Z83.3 Family history of diabetes mellitus; Z88.1 Allergy status to other antibiotic agents; Z79.899 Other long term (current) drug therapy

== ENCOUNTER → 2018-12-28 | Outpatient (CLI) | payer OTHER ==
[~2018-12-28] MED LIST changes: +BENADRYL ALLERG25 M5 PO; +CARAFATE1 GM PO; +CYMBALTA30 MG PO; +DICYCLOMINE HYD10 MG PO; +ERTAPENEM1 GM IV; +FLONASE ALLERG9.9 ML NAS; +KEFLEX500 M1 PO; +LANTUS SOL100 UNIT/1 SQ; +LEVEMIR FL100 UNIT/1 SC; +LEVOXYL88 MCG PO; +METOPROLOL SUC100 M1 PO; +METOPROLOL SUC100 M2 PO; +MOTION SICKNESS25 MG PO; +ONDANSETRON HYDR4 M1 PO; +SYNTHROID,LEVO88 MCG PO; +Synthroid,Levo88 MCG PO; +VITAMIN D32000 UNI1 PO
== END | disposition home or self-care (01) ==
LOC: RESCLI 13:22
DX: J44.1 Chronic obstructive pulmonary disease with (acute) exacerbation (principal); G89.4 Chronic pain syndrome; I25.10 Atherosclerotic heart disease of native coronary artery without angina pectoris; E78.5 Hyperlipidemia, unspecified; E11.22 Type 2 diabetes mellitus with diabetic chronic kidney disease; N18.3 Chronic kidney disease, stage 3 (moderate); E66.9 Obesity, unspecified; Z79.899 Other long term (current) drug therapy; Z86.2 Personal history of diseases of the blood and blood-forming organs and certain disorders involving the immune mechanism; Z88.8 Allergy status to other drugs, medicaments and biological substances

== ENCOUNTER 2019-01-02 20:04 | Inpatient (IN) | payer OTHER ==
[~2019-01-02] VITALS: Ht 182.9 cm; Wt 112.2 kg
[~2019-01-02 20:04] MED LIST changes: -BENADRYL ALLERG25 M5 PO; -CARAFATE1 GM PO; -CYMBALTA30 MG PO; -DICYCLOMINE HYD10 MG PO; -ERTAPENEM1 GM IV; -FLONASE ALLERG9.9 ML NAS; -KEFLEX500 M1 PO; -LANTUS SOL100 UNIT/1 SQ; -LEVEMIR FL100 UNIT/1 SC; -LEVOXYL88 MCG PO; -METOPROLOL SUC100 M1 PO; -METOPROLOL SUC100 M2 PO; -MOTION SICKNESS25 MG PO; -ONDANSETRON HYDR4 M1 PO; -SYNTHROID,LEVO88 MCG PO; -Synthroid,Levo88 MCG PO
--- NOTE | 2019-01-02 20:24 | NUR ---
THE PT WAS GIVEN A URINAL TO PROVIDE A SAMPLE
[2019-01-02 20:47] LABS: BILIRUBIN NEGATIVE (NEGATIVE); BLOOD 2+ (NEGATIVE); CLARITY CLEAR (CLEAR); COLOR YELLOW (YELLOW); GLUCOSE 3+ (NEGATIVE); KETONE NEGATIVE (NEGATIVE); LEUKO ESTERASE NEGATIVE (NEGATIVE); NITRITE NEGATIVE (NEGATIVE); SPECIFIC GRAVITY 1.015 (1.005-1.030); UROBILINOGEN 0.2 E.U./dl (0.2-1.0)
[2019-01-02 20:50] LABS: HEMOGLOBIN 12.2 g/dl (14.0-18.0); MEAN CELL VOLUME 88.8 fl (80.0-94.0); MEAN CORPUSCULAR HGB CONC 34.9 g/dl (33.0-37.0); MEAN PLATELET VOLUME 10.9 fl (9.6-12.3); NUCLEATED RED BLOOD CELL 0.2 % (0.0-0.0); PLATELET COUNT AUTOMATED 168 10*3/uL (130-400); RED BLOOD COUNT 3.94 10*6/uL (4.50-5.90); RED CELL DISTRI WIDTH 13.4 % (0-14.5); WHITE BLOOD COUNT 9.1 10*3/uL (4.8-10.8)
--- NOTE | 2019-01-02 20:56 | NUR ---
CRITICAL LAB 6.3 LACTIC ACID. RICHARD VEGA PA-C NOTIFIED..
[2019-01-02 20:58] LABS: BACTERIA TRACE; EPITHELIAL CELLS 0-2; WBC 0-2 wbc/hpf (0-5)
[2019-01-02 21:00] LABS: ACT PARTIAL THROMBO TIME 28.3 SECONDS (20.8-31.5); INTERNATIONAL NORM RATIO 1.4 (2.0-3.5)
[2019-01-02 21:03] VITALS: BP 190/110
[2019-01-02 21:14] LABS: ALBUMIN 3.2 gm/dl (3.1-4.5); ALKALINE PHOSPHATASE 169 U/L (45-117); BUN 35 mg/dl (7-24); CHLORIDE 104 mmol/L (98-107); CREATININE 1.45 mg/dL (0.70-1.30); LIPASE 176 U/L (73-393); POTASSIUM 4.6 mmol/L (3.5-5.1); SGOT/AST 96 IU/L (3-35); SGPT/ALT 137 U/L (12-78); SODIUM 136 mmol/L (136-145); TOTAL PROTEIN 6.5 gm/dL (6.4-8.2)
[2019-01-02 21:18] LABS: TROPONIN I < 0.015 ng/ml (<0.045)
[2019-01-02 21:20] LABS: TOTAL CELLS COUNTED 100 #CELLS
[2019-01-02 21:21] LABS: OVALOCYTES FEW; PLATELET SUFFICIENCY NORMAL (NORMAL); POLYCHROMASIA SLIGHT
[2019-01-02 21:56] VITALS: BP 228/121
[2019-01-02 22:17] VITALS: BP 190/96
[2019-01-02 22:45] VITALS: BP 128/52
[2019-01-02 23:00] VITALS: BP 168/84
--- NOTE | 2019-01-02 23:00 | NUR ---
A 68, admitted to 4E, under the services of DIEGO Coronado DO with a diagnosis of HYPERGLYCEMIA, GEN WEAKNESS, LACTIC ACIDOSIS. Chief complaint is HYPERGLYCEMIA. Patient arrived via bed from ER. Monitor applied. Initial assessment completed. Vital signs taken and recorded. DIEGO CORONADO DO notified of admission to the unit. Orders received. See assessment for past medical history, medications and allergies. Patient and/or family oriented to unit. [facility] visitation policy reviewed. Clothing/patient valuable form completed. SILVESTRE TAVARES
--- NOTE | 2019-01-02 23:23 | NUR ---
DR NOVA NOTIFIED OF ELEVATED LACTIC ACID LEVEL OF 3.0 NO FURTHER ORDERS AT THIS TIME.
[2019-01-03 01:51] LABS: BUN 32 mg/dl (7-24); CHLORIDE 108 mmol/L (98-107); CREATININE 1.08 mg/dL (0.70-1.30); POTASSIUM 4.5 mmol/L (3.5-5.1); SODIUM 140 mmol/L (136-145)
[2019-01-03 06:11] LABS: HEMOGLOBIN 12.4 g/dl (14.0-18.0); MEAN CORPUSCULAR HGB 30.3 pg (27.0-31.0); MEAN CORPUSCULAR HGB CONC 34.4 g/dl (33.0-37.0); MEAN PLATELET VOLUME 11.1 fl (9.6-12.3); NUCLEATED RED BLOOD CELL 0.4 % (0.0-0.0); PLATELET COUNT AUTOMATED 190 10*3/uL (130-400); RED BLOOD COUNT 4.09 10*6/uL (4.50-5.90); RED CELL DISTRI WIDTH 13.4 % (0-14.5); WHITE BLOOD COUNT 10.2 10*3/uL (4.8-10.8)
[2019-01-03 06:22] LABS: ALKALINE PHOSPHATASE 154 U/L (45-117); BUN 28 mg/dl (7-24); CHLORIDE 107 mmol/L (98-107); CREATININE 0.96 mg/dL (0.70-1.30); PHOSPHOROUS 2.4 mg/dL (2.5-4.9); POTASSIUM 4.1 mmol/L (3.5-5.1); SGOT/AST 77 IU/L (3-35); SGPT/ALT 126 U/L (12-78); SODIUM 140 mmol/L (136-145); TOTAL PROTEIN 6.1 gm/dL (6.4-8.2)
[2019-01-03 06:58] LABS: ATYPICAL LYMPHS 3 % (0-0); PLATELET SUFFICIENCY NORMAL (NORMAL); TOTAL CELLS COUNTED 100 #CELLS
[2019-01-03 08:00] VITALS: BP 154/90
--- NOTE | 2019-01-03 09:00 | NUR ---
Accounting Director in to talk to patient. Patient states lives at home with alone. There are few steps in the home. [facility]: [facility] Patient's level of ADLs: INDEPENDENT Patient has working utilities: all working DME: walker Follow-up physician's appointment after d/c: will be made by hospitalist nurse director upon discharge Does patient want to access PORTAL?: no Discharge plan discussed with patient, patient lives at home alone, he is independent in adls and uses a walker for ambulation, patient has [facility] aids. he will be going home when able and denies any home needs. STEVAN CASPER
[2019-01-03 12:00] VITALS: BP 164/74
--- NOTE | 2019-01-03 15:20 | NUR ---
Discharge instructions reviewed with patient/family. Patient receptive and verbalizes understanding. Follow-up care arranged with pcp in 1-2 weeks. Written instructions given to patient. patient taken off the floor via wheelchair. DAYLIN EDEN
[2019-01-11] MEDS ORDERED: FLONASE ALLERG9.9 ML NAS (19:01)
[2019-01-11] MEDS ORDERED: NOVOLOG FL100 UNIT/1 SC (19:02)
[2019-01-11] MEDS ORDERED: CARAFATE1 GM PO (19:03)
[2019-01-11] MEDS ORDERED: DICYCLOMINE HCL10 MG PO (19:04)
[2019-01-17] MEDS ORDERED: MERREM IV1 GM IV (14:53)
[2019-01-17] MEDS ORDERED: METOPROLOL SUC100 M1 PO (15:47)
[2019-01-17] MEDS ORDERED: PREDNISONE10 MG PO (15:47)
[2019-01-17] MEDS ORDERED: LANTUS SOL100 UNIT/1 SQ (15:47)
[2019-01-17] MEDS ORDERED: Synthroid,Levo88 MCG PO (15:47)
[2019-01-23] MEDS ORDERED: LANTUS SOL100 UNIT/1 SQ (08:48)
[2019-01-23] MEDS ORDERED: SYNTHROID,LEVO88 MCG PO (08:53)
[2019-01-23] MEDS ORDERED: Synthroid,Lev100 MCG PO (08:53)
[2019-01-30] MEDS ORDERED: CLINDAMYCIN HC300 MG PO (17:44)
[2019-04-23] MEDS ORDERED: KEFLEX500 M1 PO (14:33)
== END 2019-01-03 15:20 | disposition home or self-care (01) | DRG 637 ==
LOC: ED 20:04 → 4E 22:22 → EDHOLD 22:22 → 4E 22:52
PROVIDERS: Internal Medicine; Physician Assistant; ADMIT Internal Medicine
DX: E11.00 Type 2 diabetes mellitus with hyperosmolarity without nonketotic hyperglycemic-hyperosmolar coma (NKHHC) (principal); N17.0 Acute kidney failure with tubular necrosis; I50.32 Chronic diastolic (congestive) heart failure; E44.0 Moderate protein-calorie malnutrition; I13.0 Hypertensive heart and chronic kidney disease with heart failure and stage 1 through stage 4 chronic kidney disease, or unspecified chronic kidney disease; E87.2 Acidosis; D68.59 Other primary thrombophilia; I48.92 Unspecified atrial flutter; M86.671 Other chronic osteomyelitis, right ankle and foot; E11.65 Type 2 diabetes mellitus with hyperglycemia; E83.42 Hypomagnesemia; I16.0 Hypertensive urgency; I25.10 Atherosclerotic heart disease of native coronary artery without angina pectoris; K21.9 Gastro-esophageal reflux disease without esophagitis; N40.0 Benign prostatic hyperplasia without lower urinary tract symptoms; E11.621 Type 2 diabetes mellitus with foot ulcer; E11.69 Type 2 diabetes mellitus with other specified complication; L97.519 Non-pressure chronic ulcer of other part of right foot with unspecified severity; M10.9 Gout, unspecified; Z96.641 Presence of right artificial hip joint; F41.1 Generalized anxiety disorder; F32.9 Major depressive disorder, single episode, unspecified; E03.9 Hypothyroidism, unspecified; E66.9 Obesity, unspecified; G40.909 Epilepsy, unspecified, not intractable, without status epilepticus; E11.40 Type 2 diabetes mellitus with diabetic neuropathy, unspecified; E11.22 Type 2 diabetes mellitus with diabetic chronic kidney disease; N18.3 Chronic kidney disease, stage 3 (moderate); Z88.1 Allergy status to other antibiotic agents; Z95.5 Presence of coronary angioplasty implant and graft; Z90.49 Acquired absence of other specified parts of digestive tract; Z89.412 Acquired absence of left great toe; Z82.49 Family history of ischemic heart disease and other diseases of the circulatory system; Z83.3 Family history of diabetes mellitus; Z82.3 Family history of stroke; Z80.9 Family history of malignant neoplasm, unspecified; Z91.81 History of falling; Z79.899 Other long term (current) drug therapy; Z79.01 Long term (current) use of anticoagulants; Z68.33 Body mass index [BMI] 33.0-33.9, adult

== ENCOUNTER → 2019-01-04 | Outpatient (CLI) | payer OTHER ==
[~2019-01-04] MED LIST changes: +BENADRYL ALLERG25 M5 PO; +CARAFATE1 GM PO; +CYMBALTA30 MG PO; +DICYCLOMINE HYD10 MG PO; +ERTAPENEM1 GM IV; +FLONASE ALLERG9.9 ML NAS; +KEFLEX500 M1 PO; +LANTUS SOL100 UNIT/1 SQ; +LEVEMIR FL100 UNIT/1 SC; +LEVOXYL88 MCG PO; +METOPROLOL SUC100 M1 PO; +METOPROLOL SUC100 M2 PO; +MOTION SICKNESS25 MG PO; +ONDANSETRON HYDR4 M1 PO; +SYNTHROID,LEVO88 MCG PO; +Synthroid,Levo88 MCG PO
[2019-01-04 10:37] LABS: BASO % 0.3 % (0.0-1.0); EOS # 0.3 10*3/uL (0.0-0.4); EOS % 2.6 % (1.0-4.0); HEMATOCRIT 40.9 % (42.0-52.0); HEMOGLOBIN 13.9 g/dl (14.0-18.0); LYMPH # 1.7 10*3/uL (1.3-4.4); LYMPH % 17.6 % (27.0-41.0); MEAN CELL VOLUME 90.3 fl (80.0-94.0); MEAN CORPUSCULAR HGB 30.7 pg (27.0-31.0); MEAN PLATELET VOLUME 11.5 fl (9.6-12.3); MONO # 0.7 10*3/uL (0.1-1.0); MONO % 7.3 % (3.0-9.0); NEUT # 6.8 10*3/uL (2.3-7.9); NEUT % 69.4 % (47.0-73.0); NUCLEATED RED BLOOD CELL 0.2 % (0.0-0.0); PLATELET COUNT AUTOMATED 180 10*3/uL (130-400); RED BLOOD COUNT 4.53 10*6/uL (4.50-5.90); RED CELL DISTRI WIDTH 13.8 % (0-14.5); WHITE BLOOD COUNT 9.8 10*3/uL (4.8-10.8)
[2019-01-04 11:15] LABS: ALBUMIN 3.2 gm/dl (3.1-4.5); ALKALINE PHOSPHATASE 184 U/L (45-117); BUN 37 mg/dl (7-24); CHLORIDE 107 mmol/L (98-107); CHOLESTEROL 158 mg/dL (<200); CREATININE 1.42 mg/dL (0.70-1.30); HDL CHOLESTEROL 47 mg/dl (40-60); POTASSIUM 4.3 mmol/L (3.5-5.1); SGOT/AST 44 IU/L (3-35); SGPT/ALT 105 U/L (12-78); SODIUM 138 mmol/L (136-145); TOTAL PROTEIN 6.8 gm/dL (6.4-8.2); TRIGLYCERIDES 595 mg/dl (<150)
[2019-01-04 11:24] LABS: VITAMIN D, 25-HYDROXY 20.6 ng/mL (30-100)
== END | disposition home or self-care (01) ==
LOC: LAB 09:24
PROVIDERS: Family Medicine
DX: E11.65 Type 2 diabetes mellitus with hyperglycemia (principal); E03.9 Hypothyroidism, unspecified; E55.9 Vitamin D deficiency, unspecified; N18.3 Chronic kidney disease, stage 3 (moderate); E78.5 Hyperlipidemia, unspecified; Z79.899 Other long term (current) drug therapy

== ENCOUNTER → 2019-01-19 | Outpatient (CLI) | payer OTHER | END | disposition home or self-care (01) | LOC: RESCLI 02:32 | DX: E03.9 Hypothyroidism, unspecified (principal); I12.9 Hypertensive chronic kidney disease with stage 1 through stage 4 chronic kidney disease, or unspecified chronic kidney disease; E11.22 Type 2 diabetes mellitus with diabetic chronic kidney disease; E11.65 Type 2 diabetes mellitus with hyperglycemia; N18.3 Chronic kidney disease, stage 3 (moderate); E78.5 Hyperlipidemia, unspecified; D64.9 Anemia, unspecified; F32.9 Major depressive disorder, single episode, unspecified; M10.9 Gout, unspecified; K21.9 Gastro-esophageal reflux disease without esophagitis; I25.10 Atherosclerotic heart disease of native coronary artery without angina pectoris; I48.2 Chronic atrial fibrillation; G62.9 Polyneuropathy, unspecified; J44.1 Chronic obstructive pulmonary disease with (acute) exacerbation; F17.200 Nicotine dependence, unspecified, uncomplicated; Z79.4 Long term (current) use of insulin; Z79.899 Other long term (current) drug therapy ==

== ENCOUNTER → 2019-02-08 | Outpatient (CLI) | payer OTHER | END | disposition home or self-care (01) | LOC: WOUNDCARE 02:36 | DX: E11.621 Type 2 diabetes mellitus with foot ulcer (principal); L97.422 Non-pressure chronic ulcer of left heel and midfoot with fat layer exposed; E11.51 Type 2 diabetes mellitus with diabetic peripheral angiopathy without gangrene; E11.40 Type 2 diabetes mellitus with diabetic neuropathy, unspecified; E11.22 Type 2 diabetes mellitus with diabetic chronic kidney disease; I13.0 Hypertensive heart and chronic kidney disease with heart failure and stage 1 through stage 4 chronic kidney disease, or unspecified chronic kidney disease; N18.3 Chronic kidney disease, stage 3 (moderate); I50.9 Heart failure, unspecified; I25.10 Atherosclerotic heart disease of native coronary artery without angina pectoris; J44.9 Chronic obstructive pulmonary disease, unspecified; E03.9 Hypothyroidism, unspecified; E78.5 Hyperlipidemia, unspecified; K21.9 Gastro-esophageal reflux disease without esophagitis; D64.9 Anemia, unspecified; M10.9 Gout, unspecified; M19.90 Unspecified osteoarthritis, unspecified site; Z87.891 Personal history of nicotine dependence; Z96.641 Presence of right artificial hip joint; F41.9 Anxiety disorder, unspecified; F32.9 Major depressive disorder, single episode, unspecified; F19.10 Other psychoactive substance abuse, uncomplicated; Z90.49 Acquired absence of other specified parts of digestive tract; Z89.412 Acquired absence of left great toe; Z89.422 Acquired absence of other left toe(s) ==

== ENCOUNTER 2019-02-14 10:44 | Emergency (ER) | payer OTHER ==
[~2019-02-14] VITALS: Ht 182.8 cm; Wt 106.1 kg
[~2019-02-14 10:44] MED LIST changes: -BENADRYL ALLERG25 M5 PO; -CYMBALTA30 MG PO; -DICYCLOMINE HYD10 MG PO; -ERTAPENEM1 GM IV; -KEFLEX500 M1 PO; -LEVEMIR FL100 UNIT/1 SC; -LEVOXYL88 MCG PO; -METOPROLOL SUC100 M2 PO; -MOTION SICKNESS25 MG PO; -ONDANSETRON HYDR4 M1 PO
[2019-02-14 10:51] VITALS: BP 140/80
[2019-02-14] MEDS ORDERED: DEPAKOTE ER250 MG PO (11:08)
[2019-02-14] MEDS ORDERED: CYMBALTA30 MG PO (11:10)
[2019-02-14 12:02] LABS: HEMATOCRIT 33.3 % (42.0-52.0); HEMOGLOBIN 10.9 g/dl (14.0-18.0); MEAN CELL VOLUME 92.8 fl (80.0-94.0); MEAN CORPUSCULAR HGB 30.4 pg (27.0-31.0); MEAN CORPUSCULAR HGB CONC 32.7 g/dl (33.0-37.0); MEAN PLATELET VOLUME 10.9 fl (9.6-12.3); NUCLEATED RED BLOOD CELL 0.3 % (0.0-0.0); PLATELET COUNT AUTOMATED 207 10*3/uL (130-400); RED BLOOD COUNT 3.59 10*6/uL (4.50-5.90); RED CELL DISTRI WIDTH 13.7 % (0-14.5); WHITE BLOOD COUNT 6.3 10*3/uL (4.8-10.8)
[2019-02-14 12:22] LABS: PLATELET SUFFICIENCY NORMAL (NORMAL); TOTAL CELLS COUNTED 100 #CELLS
[2019-02-14 12:28] LABS: CREATININE 1.51 mg/dL (0.70-1.30); POTASSIUM 4.9 mmol/L (3.5-5.1); TOTAL PROTEIN 6.3 gm/dL (6.4-8.2)
[2019-02-14] MEDS ORDERED: ZOFRAN4 MG PO (14:13)
[2019-04-23] MEDS ORDERED: KEFLEX500 M1 PO (14:33)
== END 2019-02-14 14:10 | disposition home or self-care (01) ==
LOC: ED 10:44
PROVIDERS: Emergency Medicine
DX: R11.0 Nausea (principal); R63.0 Anorexia; R10.9 Unspecified abdominal pain; I25.10 Atherosclerotic heart disease of native coronary artery without angina pectoris; G89.29 Other chronic pain; J44.9 Chronic obstructive pulmonary disease, unspecified; E11.22 Type 2 diabetes mellitus with diabetic chronic kidney disease; I13.0 Hypertensive heart and chronic kidney disease with heart failure and stage 1 through stage 4 chronic kidney disease, or unspecified chronic kidney disease; N18.3 Chronic kidney disease, stage 3 (moderate); I50.32 Chronic diastolic (congestive) heart failure; E11.40 Type 2 diabetes mellitus with diabetic neuropathy, unspecified; K21.9 Gastro-esophageal reflux disease without esophagitis; E03.9 Hypothyroidism, unspecified; G40.909 Epilepsy, unspecified, not intractable, without status epilepticus; E66.9 Obesity, unspecified; F17.200 Nicotine dependence, unspecified, uncomplicated; Z88.8 Allergy status to other drugs, medicaments and biological substances; Z88.1 Allergy status to other antibiotic agents; Z79.899 Other long term (current) drug therapy; Z79.4 Long term (current) use of insulin; Z68.30 Body mass index [BMI] 30.0-30.9, adult; Z90.49 Acquired absence of other specified parts of digestive tract; Z89.412 Acquired absence of left great toe; Z89.422 Acquired absence of other left toe(s)

== ENCOUNTER 2019-02-16 10:21 | Inpatient (IN) | payer OTHER ==
[~2019-02-16] VITALS: Ht 182.9 cm; Wt 107.5 kg
--- NOTE | ~2019-02-16 | EKG ---
[place], [place] ELECTROCARDIOGRAM REPORT NAME: DEBORAH SANTACRUZ UNIT #: [id number] ROOM: DOCTOR: RAFIA DRAFT REPORT BIRTHDATE: [birth year] [facility] Test Date: 2019-02-16 Test Time: 10:35:14 Pat Name: DEBORAH SANTACRUZ Department: Room: Gender: Commercial Property Administrator: : 1950 Requested By: RY MARIA Order Number: [id number] Reading MD: Measurements Intervals [place] Rate: 107 P: 16 IN: 185 QRS: -4 QRSD: 94 T: 76 QT: 347 QTc: 463 Interpretive Statements Sinus tachycardia Inferior infarct, old Probable anterior infarct, old Baseline wander in lead(s) V5 Compared to ECG 02/08/2019 15:48:55 Sinus rhythm no longer present Myocardial infarct finding still present CM:EKGRPT:ELECTROCARDIOGRAM REPORT 1035 0740 RY MEHTA DRAFT REPORT RY MARIA DO
[~2019-02-16 10:21] MED LIST changes: +CYMBALTA30 MG PO
[2019-02-16 10:25] VITALS: BP 112/61
--- NOTE | 2019-02-16 10:51 | NUR ---
PATIENT VERBALLY CONSENTED TO AN IV ACCESS IN R BREAST. IV ACCESS SUCCESSFUL.
[2019-02-16 11:02] LABS: HEMATOCRIT 32.1 % (42.0-52.0); HEMOGLOBIN 10.4 g/dl (14.0-18.0); MEAN CELL VOLUME 94.1 fl (80.0-94.0); MEAN CORPUSCULAR HGB 30.5 pg (27.0-31.0); MEAN CORPUSCULAR HGB CONC 32.4 g/dl (33.0-37.0); MEAN PLATELET VOLUME 10.5 fl (9.6-12.3); NUCLEATED RED BLOOD CELL 0.2 % (0.0-0.0); PLATELET COUNT AUTOMATED 241 10*3/uL (130-400); RED BLOOD COUNT 3.41 10*6/uL (4.50-5.90); RED CELL DISTRI WIDTH 13.6 % (0-14.5); WHITE BLOOD COUNT 8.9 10*3/uL (4.8-10.8)
[2019-02-16 11:11] LABS: ACT PARTIAL THROMBO TIME 31.9 SECONDS (20.8-31.5); INTERNATIONAL NORM RATIO 1.2 (2.0-3.5)
--- NOTE | 2019-02-16 11:16 | NUR ---
NOTIFIED BY LAB PTS LACTIC ACID 2.4. DR MARIA NOTIFIED.
[2019-02-16 11:20] LABS: BURR CELLS FEW; PLATELET SUFFICIENCY NORMAL (NORMAL); TOTAL CELLS COUNTED 100 #CELLS
[2019-02-16 11:21] LABS: ALBUMIN 2.3 gm/dl (3.1-4.5); ALKALINE PHOSPHATASE 145 U/L (45-117); CHLORIDE 104 mmol/L (98-107); CREATININE 2.56 mg/dL (0.70-1.30); LIPASE 149 U/L (73-393); POTASSIUM 4.5 mmol/L (3.5-5.1); SGOT/AST 19 IU/L (3-35); SGPT/ALT 23 U/L (12-78); SODIUM 136 mmol/L (136-145); TOTAL PROTEIN 6.1 gm/dL (6.4-8.2)
[2019-02-16 11:23] LABS: BUN 28 mg/dl (7-24); TROPONIN I < 0.015 ng/ml (<0.045)
[2019-02-16 11:40] LABS: VALPROIC ACID (DEPAKENE) < 3.0 ug/ml (50-100)
--- NOTE | 2019-02-16 12:14 | NUR ---
TAYLA GIVEN BY TOBIAS RIVERS
[2019-02-16 13:44] VITALS: BP 136/74
[2019-02-16 14:50] VITALS: BP 117/54
--- NOTE | 2019-02-16 14:50 | NUR ---
A 68, admitted to , under the services of ZULMA Alberto DO with a diagnosis of DEHYDRATION,ACUTE RENAL FAILURE. Chief complaint is NOT EATING OR DRINKING PER PT, SHORTNESS OF BREATHE. Patient arrived via bed from ER. Monitor applied. Initial assessment completed. Vital signs taken and recorded. ZULMA ALBERTO DO notified of admission to the unit. Orders received. See assessment for past medical history, medications and allergies. Patient and/or family oriented to unit. [address] visitation policy reviewed. Clothing/patient valuable form completed. RADHA BRONSON
--- NOTE | 2019-02-16 15:15 | NUR ---
MEDICATIONS VERIFIED FROM LAST VISIT LAST WEEK FROM PHARMACY.
[2019-02-16 20:00] VITALS: BP 149/71
[2019-02-17] VITALS: BP 158/82
--- NOTE | 2019-02-17 02:33 | NUR ---
DR LARA NOTIFIED OF ELEVATED BP 158/80. PER DR LARA THIS IS OK. ALSO ASKED DR LARA REGARDING BLOOD SUGAR MEASUREMENTS. DR LARA STATES PATIENT SHOULD HAVE BLOOD SUGAR'S PLACED.
[2019-02-17 06:29] LABS: BASO % 0.3 % (0.0-1.0); EOS # 0.1 10*3/uL (0.0-0.4); EOS % 1.5 % (1.0-4.0); HEMATOCRIT 30.1 % (42.0-52.0); HEMOGLOBIN 9.4 g/dl (14.0-18.0); LYMPH # 1.6 10*3/uL (1.3-4.4); MEAN CELL VOLUME 93.8 fl (80.0-94.0); MEAN CORPUSCULAR HGB 29.3 pg (27.0-31.0); MEAN CORPUSCULAR HGB CONC 31.2 g/dl (33.0-37.0); MEAN PLATELET VOLUME 10.4 fl (9.6-12.3); MONO # 0.4 10*3/uL (0.1-1.0); MONO % 5.7 % (3.0-9.0); NEUT % 67.8 % (47.0-73.0); PLATELET COUNT AUTOMATED 195 10*3/uL (130-400); RED BLOOD COUNT 3.21 10*6/uL (4.50-5.90); RED CELL DISTRI WIDTH 13.7 % (0-14.5); WHITE BLOOD COUNT 7.4 10*3/uL (4.8-10.8)
[2019-02-17 06:57] LABS: CREATININE 1.7 mg/dL (0.70-1.30); PHOSPHOROUS 3.9 mg/dL (2.5-4.9); POTASSIUM 4.3 mmol/L (3.5-5.1)
--- NOTE | 2019-02-17 07:12 | NUR ---
NOAMDEBORAH Guerrero [id number] Please refer to the physician's history and physical for past medical history, comorbid conditions, and allergies. Diagnosis: ABDOMINAL PAIN,ACUTE RENAL FAILURE,DEHYDRATION Isauro Score: 18,AT RISK WOUND DESCRIPTIONS: Location of the wound: left great toe Thickness: Full Size: 1.5cm x 1.5cm x 0.2cm Tunneling: none Undermining: none Sinus Tract: none Presence of Exudate: Serosanguineous Amount: Light Color: Red, yellow, brown Odor: None Periwound Skin Appearance: Normal Wound edges: approximated Pain (associated with wound): none at time of assessment How does patient state this happened? pt stated he follows with Dr. Mayen and was supposed to follow up with [facility] today but unable since he was admitted here Surface the patient is resting on: Position Pro SKIN PREVENTION RECOMMENDATION: 1. Pressure redistribution support surface as appropriate 2. Elevate heels 3. Remove boots/TEDS every shift and reapply 4. Head of bed 30 degrees as tolerated 5. Assess nutrition and hydration 6. Manage moisture 7. Avoid the use of containment devices while in bed 8. Use absorptive products on surfaces limit layers of linens on bed 9. Turn and reposition every 1-2 hours in bed and every 1 hour in chair as tolerated 10. Weight shifts every 15 minutes while up in chair 11. Offloading with pillows or device to keep heels elevated off bed 12. Monitor skin at least every shift 13. Inspect under medical devices twice a day WOUND TREATMENT RECOMMENDATIONS: consult Dr. Mayen since patient follows with Dr. Mayen in the wound care center. Full thickness guidelines: Cleanse left great toe with nss and apply therahoney and cover with optifoam gentle daily and prn for soiling. Heel raiser pro boots to bilateral heels while in bed.
[2019-02-17 08:00] VITALS: BP 141/55
--- NOTE | 2019-02-17 10:04 | NUR ---
Dr. Patel notified of wound care recommendations.
--- NOTE | 2019-02-17 10:12 | NUR ---
Nursing screen received and chart review completed. Patient for probable discharge home today. Kinsey Sutherland OTR/L
--- NOTE | 2019-02-17 10:52 | NUR ---
Large Sheetfed Press Operator in to talk to patient. Patient states lives at HOME with ALONE. There are FEW steps in the home. [facility]ician[facility] Home health services: NONE Patient's level of ADLs: INDEPENDENT Patient has working utilities: YES DME: CONNIE Follow-up physician's appointment after d/c: WILL BE MADE BY HOSPITALIST NURSE DIRECTOR ON DISCHARGE Does patient want to access PORTAL?: NO Discharge plan PT LIVES AT HOME ALONE. PLANS TO RETURN HOME ON DISCHARGE. DENIES HOME NEEDS. WILL CONTINUE TO FOLLOW. STATES HE WILL HAVE A RIDE HOME.. NICOLE RENTERIA
[2019-02-17] MEDS ORDERED: ZOFRAN4 MG PO (14:14)
--- NOTE | 2019-02-17 15:28 | NUR ---
PT REFUSING DISCHARGE PHOTOS.
--- NOTE | 2019-02-17 16:33 | NUR ---
Discharge instructions reviewed with patient/family. Patient receptive and verbalizes understanding. Follow-up care arranged. Written instructions given to patient/family. ISIDRA SHERIDAN
[2019-04-23] MEDS ORDERED: KEFLEX500 M1 PO (14:33)
== END 2019-02-17 16:33 | disposition home or self-care (01) | DRG 682 ==
LOC: ED 10:21 → 4E 14:03
PROVIDERS: Emergency Medicine; Student in an Organized Health Care Education/Training Program; ADMIT Internal Medicine
DX: N17.0 Acute kidney failure with tubular necrosis (principal); E43 Unspecified severe protein-calorie malnutrition; E87.2 Acidosis; I50.32 Chronic diastolic (congestive) heart failure; I48.92 Unspecified atrial flutter; I13.0 Hypertensive heart and chronic kidney disease with heart failure and stage 1 through stage 4 chronic kidney disease, or unspecified chronic kidney disease; A08.4 Viral intestinal infection, unspecified; E86.0 Dehydration; E83.42 Hypomagnesemia; K21.9 Gastro-esophageal reflux disease without esophagitis; N40.0 Benign prostatic hyperplasia without lower urinary tract symptoms; M10.9 Gout, unspecified; I25.10 Atherosclerotic heart disease of native coronary artery without angina pectoris; G40.909 Epilepsy, unspecified, not intractable, without status epilepticus; F41.1 Generalized anxiety disorder; D64.9 Anemia, unspecified; N18.9 Chronic kidney disease, unspecified; E11.22 Type 2 diabetes mellitus with diabetic chronic kidney disease; Z79.4 Long term (current) use of insulin; Z68.32 Body mass index [BMI] 32.0-32.9, adult; Z82.49 Family history of ischemic heart disease and other diseases of the circulatory system; Z88.1 Allergy status to other antibiotic agents; Z88.8 Allergy status to other drugs, medicaments and biological substances; Z79.51 Long term (current) use of inhaled steroids; Z79.899 Other long term (current) drug therapy

== ENCOUNTER 2019-02-26 16:47 | Inpatient (IN) | payer OTHER ==
[~2019-02-26] VITALS: Ht 182.9 cm; Wt 104.4 kg
[2019-02-26] VITALS (7 sets, daily range): BP systolic 114–160; BP diastolic 52–70
--- NOTE | ~2019-02-26 | EKG ---
[place], [place] ELECTROCARDIOGRAM REPORT NAME: DEBORAH SANTACRUZ UNIT #: [id number] ROOM: 516 DOCTOR: RAFIA DRAFT REPORT BIRTHDATE: [birth year] [facility] Test Date: 2019-02-28 Test Time: 09:05:19 Pat Name: DEBORAH SANTACRUZ Department: Room: 51 1 Gender: M Marbleizer: Jossy Pierre : 1950 Requested By: LUIS GONZALES Order Number: [id number] Reading MD: Janessa Metz MD Measurements Intervals [place] Rate: 67 P: -72 OK: 271 QRS: 14 QRSD: 104 T: 54 QT: 427 QTc: 451 Interpretive Statements Sinus rhythm Prolonged [place] interval Inferior infarct, old Compared to ECG 02/26/2019 22:58:15 No significant changes Electronically Signed On 02-28-2019 8:12:16 PDT by Janessa Metz MD CM:EKGRPT:ELECTROCARDIOGRAM REPORT 4 0812 LUIS MEHTA DRAFT REPORT LUIS GONZALES DO
--- NOTE | ~2019-02-26 | EKG ---
[place], [place] ELECTROCARDIOGRAM REPORT NAME: DEBORAH SANTACRUZ UNIT #: [id number] ROOM: 516 DOCTOR: RAFIA DRAFT REPORT BIRTHDATE: [birth year] [facility] Test Date: 2019-02-26 Test Time: 19:31:53 Pat Name: DEBORAH SANTACRUZ Department: Room: 516 Gender: M Heel Sewer: Chilango Westfall : 1950 Requested By: TONY RIOS Order Number: [id number] Reading MD: Margareth Mancini Measurements Intervals [place] Rate: 73 P: -26 MI: 233 QRS: 9 QRSD: 105 T: 56 QT: 428 QTc: 472 Interpretive Statements Sinus rhythm Prolonged [place] interval Inferior infarct, old Consider anterior infarct Baseline wander in lead(s) V2 Compared to ECG 02/16/2019 10:35:14 First degree AV block now present Sinus tachycardia no longer present Myocardial infarct finding still present Electronically Signed On 02-27-2019 9:01:08 PDT by Margareth Mancini CM:EKGRPT:ELECTROCARDIOGRAM REPORT 30 0901 TONY MORATAYA DRAFT REPORT OTNY RIOS MD
--- NOTE | ~2019-02-26 | EKG ---
[place], [place] ELECTROCARDIOGRAM REPORT NAME: DEBORAH SANTACRUZ UNIT #: [id number] ROOM: 516 DOCTOR: RAFIA DRAFT REPORT BIRTHDATE: [birth year] [facility] Test Date: 2019-02-26 Test Time: 16:52:55 Pat Name: DEBORAH SANTACRUZ Department: Room: 516 Gender: M Second Ride Fare Collector: Sherrie Fernandez : 1950 Requested By: TONY RIOS Order Number: [id number] Reading MD: Margareth Mancini Measurements Intervals [place] Rate: 80 P: 4 TX: 230 QRS: -4 QRSD: 103 T: 42 QT: 396 QTc: 457 Interpretive Statements Sinus rhythm Prolonged [place] interval Inferior infarct, old Consider anterior infarct Compared to ECG 02/16/2019 10:35:14 First degree AV block now present Sinus tachycardia no longer present Myocardial infarct finding still present Electronically Signed On 02-27-2019 9:00:51 PDT by Margareth Mancini CM:EKGRPT:ELECTROCARDIOGRAM REPORT 1652 0900 TONY MORATAYA DRAFT REPORT TONY RIOS MD
--- NOTE | ~2019-02-26 | EKG ---
[place], [place] ELECTROCARDIOGRAM REPORT NAME: DEBORAH SANTACRUZ UNIT #: [id number] ROOM: 516 DOCTOR: RAFIA DRAFT REPORT BIRTHDATE: [birth year] [facility] Test Date: 2019-02-26 Test Time: 22:58:15 Pat Name: DEBORAH SANTACRUZ Department: Room: 516 Gender: M Middleware Architect: Chilango Westfall : 1950 Requested By: TONY RIOS Order Number: [id number] Reading MD: Margareth Mancini Measurements Intervals [place] Rate: 79 P: -53 DE: 232 QRS: 15 QRSD: 106 T: 45 QT: 416 QTc: 477 Interpretive Statements Sinus or ectopic atrial rhythm Prolonged [place] interval Inferior infarct, old Anterior infarct, old Compared to ECG 02/16/2019 10:35:14 Ectopic atrial rhythm now present First degree AV block now present Sinus tachycardia no longer present Myocardial infarct finding still present Electronically Signed On 02-27-2019 9:01:42 PDT by Margareth Mancini CM:EKGRPT:ELECTROCARDIOGRAM REPORT 2258 0901 TONY MORATAYA DRAFT REPORT TONY RIOS MD
[2019-02-26 17:09] LABS: BASO % 0.5 % (0.0-1.0); EOS # 0.1 10*3/uL (0.0-0.4); EOS % 1.8 % (1.0-4.0); HEMATOCRIT 33.8 % (42.0-52.0); HEMOGLOBIN 10.8 g/dl (14.0-18.0); LYMPH # 2.4 10*3/uL (1.3-4.4); MEAN CELL VOLUME 94.2 fl (80.0-94.0); MEAN CORPUSCULAR HGB 30.1 pg (27.0-31.0); MEAN PLATELET VOLUME 11.2 fl (9.6-12.3); MONO # 0.6 10*3/uL (0.1-1.0); MONO % 7.1 % (3.0-9.0); NEUT # 4.7 10*3/uL (2.3-7.9); NEUT % 60.1 % (47.0-73.0); PLATELET COUNT AUTOMATED 169 10*3/uL (130-400); RED BLOOD COUNT 3.59 10*6/uL (4.50-5.90); RED CELL DISTRI WIDTH 14.8 % (0-14.5); WHITE BLOOD COUNT 7.9 10*3/uL (4.8-10.8)
[2019-02-26 17:25] LABS: ACT PARTIAL THROMBO TIME 35.9 SECONDS (20.8-31.5); INTERNATIONAL NORM RATIO 1.3 (2.0-3.5)
[2019-02-26 17:27] LABS: ALBUMIN 2.6 gm/dl (3.1-4.5); ALKALINE PHOSPHATASE 140 U/L (45-117); BUN 21 mg/dl (7-24); CHLORIDE 107 mmol/L (98-107); CREATININE 1.66 mg/dL (0.70-1.30); POTASSIUM 4.4 mmol/L (3.5-5.1); SGOT/AST 14 IU/L (3-35); SGPT/ALT 15 U/L (12-78); SODIUM 137 mmol/L (136-145); TOTAL PROTEIN 6.6 gm/dL (6.4-8.2)
[2019-02-26 17:28] LABS: TROPONIN I < 0.015 ng/ml (<0.045)
--- NOTE | 2019-02-26 20:50 | NUR ---
A 68, admitted to 5E, under the services of RY Epstein DO with a diagnosis of CELLULITIS AND ABSCESS OF FOOT/DIZZINESS. Chief complaint is DIZZINESS. Patient arrived via stretcher from ER. Monitor applied. Initial assessment completed. Vital signs taken and recorded. RY EPSTEIN DO notified of admission to the unit. Orders received. See assessment for past medical history, medications and allergies. Patient and/or family oriented to unit. visitation policy reviewed. Clothing/patient valuable form completed. HARIS SAWANT
[2019-02-27] VITALS: BP 141/48
[2019-02-27] MEDS ORDERED: LIPITOR40 MG PO (00:53)
[2019-02-27] MEDS ORDERED: MIDODRINE HCL5 M1 PO (00:54)
[2019-02-27] MEDS ORDERED: FLECAINIDE ACE100 M1 PO (00:54)
[2019-02-27] MEDS ORDERED: XARE20MG PO (00:55)
[2019-02-27] MEDS ORDERED: MAGOX 400400 MG PO (00:55)
[2019-02-27] MEDS ORDERED: MOTION SICKNESS25 MG PO (02:08)
[2019-02-27] MEDS ORDERED: NEURONTIN400 MG PO (02:08)
[2019-02-27] MEDS ORDERED: ZYLOPRIM100 MG PO (02:08)
[2019-02-27] MEDS ORDERED: PROAIR HFA8.5 GM INH (02:09)
[2019-02-27] MEDS ORDERED: LOPERAMIDE HCL2 MG PO (02:11)
[2019-02-27] MEDS ORDERED: SYMB160 INH (02:11)
[2019-02-27] MEDS ORDERED: FLONASE ALLERG9.9 ML NAS (02:14)
[2019-02-27] MEDS ORDERED: VITAMIN D32000 UNI1 PO (02:14)
[2019-02-27] MEDS ORDERED: DICYCLOMINE HYD10 MG PO (02:15)
[2019-02-27] MEDS ORDERED: CARAFATE1 G1 PO (02:15)
[2019-02-27] MEDS ORDERED: METOPROLOL SUC100 M2 PO (02:16)
[2019-02-27] MEDS ORDERED: LEVOXYL88 MCG PO (02:17)
[2019-02-27] MEDS ORDERED: LEVEMIR FL100 UNIT/1 SC (02:17)
[2019-02-27] MEDS ORDERED: CYMBALTA30 MG PO (02:18)
[2019-02-27] MEDS ORDERED: ONDANSETRON HYDR4 M1 PO (02:18)
[2019-02-27] MEDS ORDERED: Depakote250 MG PO (02:18)
[2019-02-27 06:23] LABS: BASO # 0.1 10*3/uL (0.0-0.1); BASO % 0.8 % (0.0-1.0); EOS # 0.1 10*3/uL (0.0-0.4); EOS % 2.1 % (1.0-4.0); HEMATOCRIT 34.5 % (42.0-52.0); MEAN CORPUSCULAR HGB 30.3 pg (27.0-31.0); MEAN CORPUSCULAR HGB CONC 31.9 g/dl (33.0-37.0); MEAN PLATELET VOLUME 11.3 fl (9.6-12.3); MONO # 0.5 10*3/uL (0.1-1.0); MONO % 8.8 % (3.0-9.0); NEUT # 3.4 10*3/uL (2.3-7.9); NEUT % 55.8 % (47.0-73.0); PLATELET COUNT AUTOMATED 154 10*3/uL (130-400); RED BLOOD COUNT 3.63 10*6/uL (4.50-5.90); RED CELL DISTRI WIDTH 14.6 % (0-14.5); WHITE BLOOD COUNT 6.1 10*3/uL (4.8-10.8)
[2019-02-27 06:34] LABS: BUN 19 mg/dl (7-24); CHLORIDE 109 mmol/L (98-107); CREATININE 1.36 mg/dL (0.70-1.30); POTASSIUM 4.2 mmol/L (3.5-5.1); SODIUM 138 mmol/L (136-145)
[2019-02-27 08:00] VITALS: BP 148/56
--- NOTE | 2019-02-27 08:13 | NUR ---
INFECTION DISEASE AND PODIATRY CONSULTS COMPLETE AT THIS TIME.
[2019-02-27 16:00] VITALS: BP 115/44
[2019-02-27 20:00] VITALS: BP 127/46
--- NOTE | 2019-02-27 20:30 | NUR ---
RESTING IN BED WITH EYES CLOSED. NO DISTRESS NOTED. RESPIRATIONS EASY. LUNGS DIMINISHED, CLEAR. PULSE OX 100% RA. TRACE LLE EDEMA WITH DRESSING INTACT TO LEFT FOOT. OFFERED AND EDUCATED REGARDING TEDS, DECLINED. CALL LIGHT WITHIN REACH. NO VOICED COMPLAINTS
--- NOTE | 2019-02-27 21:12 | NUR ---
24 HR chart check completed.
--- NOTE | 2019-02-27 21:31 | NUR ---
MEDICATED WITH TYLENOL PER PRN ORDER FOR COMPLAINTS OF LEFT FOOT PAIN RATING A 5. CALL LIGHT WITHIN REACH. WILL MONITOR FOR EFFECTIVENESS
--- NOTE | 2019-02-27 23:00 | NUR ---
MEDS EFFECTIVE. SLEEPING. CALL LIGHT WITHIN REACH
[2019-02-28] VITALS: BP 119/43
--- NOTE | 2019-02-28 00:30 | NUR ---
SLEEPING WITH NO DISTRESS NOTED. RESPIRATIONS EASY. VSS. CALL LIGHT WITHIN REACH
--- NOTE | 2019-02-28 06:00 | NUR ---
SLEPT THROUGHOUT NIGHT WITH NO DISTRESS NOTED. RESPIRATIONS EASY. CALL LIGHT WITHIN REACH. NO VOICED COMPLAINTS THIS SHIFT
[2019-02-28 07:04] LABS: BASO % 0.6 % (0.0-1.0); EOS # 0.2 10*3/uL (0.0-0.4); EOS % 3.3 % (1.0-4.0); HEMATOCRIT 31.3 % (42.0-52.0); LYMPH % 21.4 % (27.0-41.0); MEAN CORPUSCULAR HGB CONC 31.9 g/dl (33.0-37.0); MEAN PLATELET VOLUME 11.5 fl (9.6-12.3); MONO # 0.4 10*3/uL (0.1-1.0); MONO % 7.2 % (3.0-9.0); NEUT # 3.2 10*3/uL (2.3-7.9); NEUT % 66.7 % (47.0-73.0); PLATELET COUNT AUTOMATED 154 10*3/uL (130-400); RED BLOOD COUNT 3.33 10*6/uL (4.50-5.90); RED CELL DISTRI WIDTH 14.4 % (0-14.5); WHITE BLOOD COUNT 4.9 10*3/uL (4.8-10.8)
[2019-02-28 07:13] LABS: POTASSIUM 4.5 mmol/L (3.5-5.1)
[2019-02-28 07:26] LABS: CREATININE 1.48 mg/dL (0.70-1.30); PHOSPHOROUS 3.2 mg/dL (2.5-4.9)
[2019-02-28 08:00] VITALS: BP 131/65
--- NOTE | 2019-02-28 08:53 | NUR ---
DEBORAH SANTACRUZ [id number] Please refer to the physician's history and physical for past medical history, comorbid conditions, and allergies. Diagnosis: CELLULITIS AND ABCESS OF FOOT,DIZZINESS Isauro Score: 16,AT RISK WOUND DESCRIPTIONS: Location of the wound: LEFT GREAT TOE Type of wound: SURGICAL Thickness: Full Size: 3.5cm X 2.0cm X <0.1cm Tunneling: NONE Undermining: NONE Sinus Tract: NONE Presence of Exudate: SEROSANG Amount: Light Color: Yellow, Red, Brown Odor: None Periwound Skin Appearance: Normal Wound edges: CLOSED WITH THREE INTACT SUTURES. Pain (associated with wound): DENIED AT TIME OF ASSESSMENT How does patient state this happened? PATIENT UNSURE HOW THIS HAPPENED. If wound is on legs/feet or hands, capillary refill time, pulses, color temp, sensation: CAP REFILL < 3 SECONDS. Location of the wound: LEFT HEEL Type of wound: FISSURE Thickness: Partial Size: 1.3cm X 0.2cm X 0.1cm Tunneling: NONE Undermining: NONE Sinus Tract: NONE Presence of Exudate: NONE Amount: None Color: Red Odor: None Periwound Skin Appearance: Normal Wound edges: APPROXIMATED Pain (associated with wound): DENIED AT TIME OF ASSESSMENT How does patient state this happened? PATIENT UNSURE HOW THIS HAPPENED. If wound is on legs/feet or hands, capillary refill time, pulses, color temp, sensation: CAP REFILL < 3 SECONDS. Surface the patient is resting on: Isoflex SKIN PREVENTION RECOMMENDATION: 1. Pressure redistribution support surface as appropriate 2. Elevate heels 3. Remove boots/TEDS every shift and reapply 4. Head of bed 30 degrees as tolerated 5. Assess nutrition and hydration 6. Manage moisture 7. Avoid the use of containment devices while in bed 8. Use absorptive products on surfaces limit layers of linens on bed 9. Turn and reposition every 1-2 hours in bed and every 1 hour in chair as tolerated 10. Weight shifts every 15 minutes while up in chair 11. Offloading with pillows or device to keep heels elevated off bed 12. Monitor skin at least every shift 13. Inspect under medical devices twice a day WOUND TREATMENT RECOMMENDATIONS: CONSULT PODIATRY PATIENT IS KNOWN TO THEM AND PERFORMED SURGERY 02-24-19. STAGE 3&4 GUIDELINES TO LEFT GREAT TOE AND LEFT HEEL FISSURE: CLEANSE WITH NSS APPLY SUREPREP AROUND THE WOUND ALLOW TO DRY APPLY THERAHONEY AND COVER WITH ABD KERLIX DAILY. HEEL RAISER PRO BOOTS WHILE IN BED.
--- NOTE | 2019-02-28 08:58 | NUR ---
PT COMPLAINS OF CHEST PAIN RATED AT A 6, FEELING DIZZY AND JUST "FEELING FUNNY". STATES HE CAN'T SIT UP TO EAT. DR. GONZALES NOTIFIED AND ORDERS OBTAINED. PTS VITALS WERE STABLE.
--- NOTE | 2019-02-28 09:15 | NUR ---
PT SLEEPING BEFORE STAT EKG ARRIVE. PT WOKE UP FOR EKG AND FELL BACK ASLEEP. WILL CONTINUE TO MONITOR.
--- NOTE | 2019-02-28 09:32 | NUR ---
SPEECH PATHOLOGY Nursing screen completed. Speech pathology services are not indicated at this time as there are no reports of acute communication or swallowing problems. This dept. will be available if future needs arise. JESUS ALBERTO PAULSON MSCCC-ARTIFICIAL BREAST FABRICATOR
--- NOTE | 2019-02-28 10:10 | NUR ---
Dr. Nails notified of wound care recommendations.
[2019-02-28 12:00] VITALS: BP 109/51
--- NOTE | 2019-02-28 13:48 | NUR ---
Linoleum Tile Layer in to talk to patient. Patient states lives at HOME with ALONE. There are NO steps in the home. [facility] [place] health services: NONE Patient's level of ADLs: INDEPENDENT Patient has working utilities: YES DME: CONNIE Follow-up physician's appointment after d/c: WILL BE MADE BY HOSPITIALIST NURSE DIRECTOR ON DISCHARGE Does patient want to access PORTAL?: NO Discharge plan PT LIVES AT HOME AND STATES NO NEEDS ON DISCHARGE. WILL CONTINUE TO FOLLOW. PT STATES HE WILL HAVE A RIDE HOME. . NICOLE RENTERIA
[2019-02-28 16:00] VITALS: BP 127/55
--- NOTE | 2019-02-28 16:06 | NUR ---
Nursing screen received and chart review completed. Encourage ADLs and functional mobility as able with wound care. No furtherOT indicated at this time. Thank you. Kinsey Sutherland OTR/l
--- NOTE | 2019-02-28 16:22 | NUR ---
PHYSICAL THERAPY Nursing screen received. Chart review complete. Recommend normal daily mobility with nursing prn. Just left AMA and was at home, (I) with mobility prior to returning with current medical issues. No PT recommended at this time. Thank you. Aziza De León,PT
--- NOTE | 2019-02-28 19:18 | NUR ---
24 HR chart check completed.
[2019-02-28 20:00] VITALS: BP 140/63
--- NOTE | 2019-02-28 20:00 | NUR ---
SLEEPING, AWAKENS EASILY. RESPIRATIONS EASY. LUNGS DIMINISHE, CLEAR. PULSE OX 98% RA. ABD SOFT WITH HYPERACTIVE BOWEL SOUNDS, C/O DIARRHEA - HAT PLACED IN TOILET FOR SPECIMEN. TRACE LLE EDEMA WITH DRESSING DRY AND INTACT. CALL LIGHT WITHIN REACH.
--- NOTE | 2019-02-28 20:44 | NUR ---
MEDICATED WITH TYLENOL PER PRN ORDER FOR COMPLAINTS OF LEFT FOOT PAIN RATING A 5. CALL LIGHT WITHIN REACH. WILL MONITOR FOR EFFECTIVENESS
--- NOTE | 2019-02-28 23:00 | NUR ---
MEDS EFFECTIVE. SLEEPING. RESPIRATIONS EASY. CALL LIGHT WITHIN REACH
[2019-03-01] VITALS (7 sets, daily range): BP systolic 98–146; BP diastolic 46–80
--- NOTE | 2019-03-01 00:30 | NUR ---
AWAKE, DRESSING REMOVED FROM LEFT FOOT STATING "IT HURTS." WOUND REDRESSED PER ORDER. PATIENT ENCOURAGED TO LEAVE IN PLACE
--- NOTE | 2019-03-01 01:00 | NUR ---
DRESSING AGAIN REMOVED. PATIENT REFUSING TO REAPPLY AT THIS TIME
--- NOTE | 2019-03-01 04:06 | NUR ---
Patient will follow up with podiatry on discharge.
--- NOTE | 2019-03-01 06:00 | NUR ---
PATIENT NOW PULLED IV OUT. ATTEMPTS X 4 TO RESTART UNSUCCESSFUL. AGREEABLE TO WOUND TO BE REDRESSED. WOUND LEFT FOOT NOTED TO HAVE 3 SUTURES INTACT
[2019-03-01 06:34] LABS: BASO # 0.1 10*3/uL (0.0-0.1); BASO % 0.9 % (0.0-1.0); EOS # 0.4 10*3/uL (0.0-0.4); EOS % 6.1 % (1.0-4.0); HEMATOCRIT 31.2 % (42.0-52.0); HEMOGLOBIN 9.8 g/dl (14.0-18.0); LYMPH # 2.6 10*3/uL (1.3-4.4); LYMPH % 44.5 % (27.0-41.0); MEAN CELL VOLUME 93.7 fl (80.0-94.0); MEAN CORPUSCULAR HGB 29.4 pg (27.0-31.0); MEAN CORPUSCULAR HGB CONC 31.4 g/dl (33.0-37.0); MEAN PLATELET VOLUME 11.6 fl (9.6-12.3); MONO # 0.6 10*3/uL (0.1-1.0); MONO % 9.7 % (3.0-9.0); NEUT # 2.2 10*3/uL (2.3-7.9); NEUT % 38.3 % (47.0-73.0); PLATELET COUNT AUTOMATED 142 10*3/uL (130-400); RED BLOOD COUNT 3.33 10*6/uL (4.50-5.90); RED CELL DISTRI WIDTH 14.5 % (0-14.5); WHITE BLOOD COUNT 5.8 10*3/uL (4.8-10.8)
[2019-03-01 06:59] LABS: CREATININE 1.71 mg/dL (0.70-1.30); POTASSIUM 4.5 mmol/L (3.5-5.1)
--- NOTE | 2019-03-01 09:43 | NUR ---
Patient is eating 100% of meals and receiving Glucerna with meals. Continue providing Glucerna supplements. Nutritional assessment was completed 02/24/2019. No further nutrition intervention needed at this time. Will monitor. Marce Coulter Marie Dietetic Student
--- NOTE | 2019-03-01 12:56 | NUR ---
PT STATES IF HE NEED IV ANTIBIOTICS AFTER DISCHARGE, HE WILL COME TO HOSPITAL AND GET THEM, THAT IS WHAT HE DID BEFORE. WILL CONTINUE TO FOLLOW.
--- NOTE | 2019-03-01 22:49 | NUR ---
CALLED DR. LARA AND NOTIFIED HIM PATIENT C/O "SOME LADY IS IN HERE KNOCKING ON THE WINDOW, KNOCKING ME IN THE HEAD." PT. CLIMBING OUT OF BED. DR. LARA ORDERS TO BE RECEIVED. MOVING PATIENT TO ROOM 524 FROM ROOM 516.
--- NOTE | 2019-03-01 23:08 | NUR ---
RESTORIL GIVEN PER ORDER TO HELP PT. RELAX/ SLEEP.
[2019-03-02] VITALS: BP 138/45
--- NOTE | 2019-03-02 01:00 | NUR ---
RESTORIL EFFECTIVE PT. SLEEPING.
--- NOTE | 2019-03-02 03:57 | NUR ---
24 HR chart check completed.
[2019-03-02 06:18] LABS: POTASSIUM 4.9 mmol/L (3.5-5.1)
[2019-03-02 06:22] LABS: CREATININE 1.86 mg/dL (0.70-1.30)
--- NOTE | 2019-03-02 07:30 | NUR ---
Patient resting quietly with no c/o discomfort. Respirations easy and regular. Vital signs stable. No overt distress. DEVYN SANCHEZ
[2019-03-02 07:50] VITALS: BP 148/68
--- NOTE | 2019-03-02 08:30 | NUR ---
Patient resting quietly with no c/o discomfort. Respirations easy and regular. Vital signs stable. No overt distress. DEVYN SANCHEZ
--- NOTE | 2019-03-02 08:42 | NUR ---
DR HINDS IN TOO SEE, SCRIPTS ON CHART.
--- NOTE | 2019-03-02 08:47 | NUR ---
DR ROBERTS STATES TO HOLD MIDODRINE D/T HTN CURRENTLY W/ A SBP IN THE 140s.
--- NOTE | 2019-03-02 11:00 | NUR ---
DR POTTER IN TO SEE PT. DRESSING TO LEFT GREAT TOE WILL BE CHANGED BY STUDENTS AND THEIR INSTRUCTOR SHORTLY.
[2019-03-02 11:33] LABS: ABG BASE EXCESS -0.8 mmol/L (-2.0-2.0); ABG HCO3 24.4 mmol/l (22-26); ABG O2 SATURATION 95.9 % (95-97); ARTERIAL BLOOD GAS PCO2 44.7 mmHg (35-45); ARTERIAL BLOOD GAS PH 7.354 (7.35-7.45); ARTERIAL BLOOD GAS PO2 79.5 mmHg (80-90)
--- NOTE | 2019-03-02 12:05 | NUR ---
DR. ROBERTS MADE AWARE BP 131/67, STATED TO HOLD MIDODRINE AT THIS TIME.
[2019-03-02 12:07] VITALS: BP 131/67
--- NOTE | 2019-03-02 13:12 | NUR ---
CALL PLACE TO INSURANCE FOR PRE AUTHORAZATION FOR IV DALVANCE AND ERTAPENEM FOR PT. AUTH RECIEVED FOR DALANCE. NO AUTH REQUIRED TO ERTAPENEM. WAITING FOR APPROVAL LETTER TO ARRIVE VIA FAX THEN WILL SET UP IV ANTIBIOTICS OUTPT PER PT REQUEST.
--- NOTE | 2019-03-02 15:30 | NUR ---
PT ASSISTED TO RESTROOM X5 RNS AND IS CUSSING AND YELLING, MAKING VERY LITTLE SENSE. HE THEN PROCEEDED TO REFUSE TO USE THE RESTROOM AND QUICKLY WALKED BACK TO BED, SHOVING THE RN'S HAND FROM HIS ARM SHE ASSISTED HIM INTO BED. HE IS REFUSING TO WEAR HIS O2, HAVE HIS IV HOOKED BACK UP AND TO HAVE HIS VITALS DONE. DR GONZALES ASKED TO SPEAK WITH PT.
[2019-03-02 16:00] VITALS: BP 119/48
[2019-03-02 20:00] VITALS: BP 135/66
[2019-03-03] VITALS: BP 123/51
[2019-03-03 06:39] LABS: CREATININE 1.46 mg/dL (0.70-1.30); POTASSIUM 5.2 mmol/L (3.5-5.1)
[2019-03-03 06:41] LABS: BASO % 0.2 % (0.0-1.0); EOS # 0.4 10*3/uL (0.0-0.4); EOS % 7.5 % (1.0-4.0); HEMATOCRIT 29.1 % (42.0-52.0); HEMOGLOBIN 9.1 g/dl (14.0-18.0); LYMPH # 1.9 10*3/uL (1.3-4.4); LYMPH % 34.1 % (27.0-41.0); MEAN CELL VOLUME 92.7 fl (80.0-94.0); MEAN CORPUSCULAR HGB CONC 31.3 g/dl (33.0-37.0); MEAN PLATELET VOLUME 11.7 fl (9.6-12.3); MONO # 0.5 10*3/uL (0.1-1.0); MONO % 8.2 % (3.0-9.0); NEUT # 2.7 10*3/uL (2.3-7.9); NEUT % 49.6 % (47.0-73.0); PLATELET COUNT AUTOMATED 105 10*3/uL (130-400); RED BLOOD COUNT 3.14 10*6/uL (4.50-5.90); RED CELL DISTRI WIDTH 14.3 % (0-14.5); WHITE BLOOD COUNT 5.5 10*3/uL (4.8-10.8)
[2019-03-03 08:00] VITALS: BP 84/40
--- NOTE | 2019-03-03 09:01 | NUR ---
PT SITTING UP EATING BREAKFAST. PT UPSET MUMBLING . PT ENCOURAGED TO SIT AND EAT HIS BREAKFAST. BED ALARM ON
--- NOTE | 2019-03-03 09:30 | NUR ---
PT MUMBLING THAT HES LEAVING STATING HE SIGNING OUT
[2019-03-03 09:59] VITALS: BP 124/56
[2019-03-03 10:52] VITALS: BP 130/74
--- NOTE | 2019-03-03 11:00 | NUR ---
PT RESTING IN BED, EYES CLOSED.
[2019-03-03 11:47] VITALS: BP 126/67
[2019-03-03 12:00] VITALS: BP 114/58
--- NOTE | 2019-03-03 12:00 | NUR ---
PT STATING AGAIN THAT HES LEAVING AMA
[2019-03-03 12:30] LABS: CREATININE 1.48 mg/dL (0.70-1.30); POTASSIUM 4.8 mmol/L (3.5-5.1)
--- NOTE | 2019-03-03 13:35 | NUR ---
PHYSICAL THERAPY PAtient discharged. Thank you for this referral. Aziza De León,PT
--- NOTE | 2019-03-03 14:00 | NUR ---
PT HAS VISITOR IN ROOM , ENCOURAGING PT TO STAY UNTIL HES DC'D
--- NOTE | 2019-03-03 14:03 | NUR ---
COPY OF ORDER, APPROVAL LETTERS AND FACE SHEET SENT TO PHARMACY, CENTRAL SCHEDULING AND REGISTRATION.
--- NOTE | 2019-03-03 15:54 | NUR ---
PT REFUSED DC WOUND PHOTOS
--- NOTE | 2019-03-03 16:00 | NUR ---
PT NOW UPSET THAT HES DC'D PT INSTRUCTED THAT HES DC'D AND COMING BACK [facility] FOR OUPT ANTIBIOTICS
--- NOTE | 2019-03-03 18:05 | NUR ---
Discharge instructions reviewed with patient/family. Patient receptive and verbalizes understanding. Follow-up care arranged. Written instructions given to patient/family. ELANA LEMON
[2019-04-23] MEDS ORDERED: KEFLEX500 M1 PO (14:33)
== END 2019-03-03 18:31 | disposition home or self-care (01) | DRG 637 ==
LOC: ED 16:47 → EDHOLD 19:54 → 5E 19:54
PROVIDERS: Emergency Medicine; Internal Medicine; Student in an Organized Health Care Education/Training Program; ADMIT Emergency Medicine
PROC: 05HY33Z Insertion of Infusion Device into Upper Vein, Percutaneous Approach (ICD-10-PCS; principal; 2019-03-01)
DX: E11.69 Type 2 diabetes mellitus with other specified complication (principal); E43 Unspecified severe protein-calorie malnutrition; I13.0 Hypertensive heart and chronic kidney disease with heart failure and stage 1 through stage 4 chronic kidney disease, or unspecified chronic kidney disease; I50.32 Chronic diastolic (congestive) heart failure; M86.671 Other chronic osteomyelitis, right ankle and foot; L02.612 Cutaneous abscess of left foot; L03.116 Cellulitis of left lower limb; E83.42 Hypomagnesemia; L97.524 Non-pressure chronic ulcer of other part of left foot with necrosis of bone; R42 Dizziness and giddiness; K21.9 Gastro-esophageal reflux disease without esophagitis; M1A.9XX0 Chronic gout, unspecified, without tophus (tophi); N40.0 Benign prostatic hyperplasia without lower urinary tract symptoms; G89.29 Other chronic pain; F32.9 Major depressive disorder, single episode, unspecified; F41.1 Generalized anxiety disorder; E11.42 Type 2 diabetes mellitus with diabetic polyneuropathy; N18.3 Chronic kidney disease, stage 3 (moderate); E11.22 Type 2 diabetes mellitus with diabetic chronic kidney disease; E11.621 Type 2 diabetes mellitus with foot ulcer; E11.65 Type 2 diabetes mellitus with hyperglycemia; Z96.641 Presence of right artificial hip joint; E03.9 Hypothyroidism, unspecified; E66.9 Obesity, unspecified; K44.9 Diaphragmatic hernia without obstruction or gangrene; L97.519 Non-pressure chronic ulcer of other part of right foot with unspecified severity; D64.9 Anemia, unspecified; I25.10 Atherosclerotic heart disease of native coronary artery without angina pectoris; Z91.81 History of falling; Z86.73 Personal history of transient ischemic attack (TIA), and cerebral infarction without residual deficits; Z95.5 Presence of coronary angioplasty implant and graft; Z90.49 Acquired absence of other specified parts of digestive tract; Z89.412 Acquired absence of left great toe; Z80.0 Family history of malignant neoplasm of digestive organs; Z89.422 Acquired absence of other left toe(s); Z83.3 Family history of diabetes mellitus; Z82.49 Family history of ischemic heart disease and other diseases of the circulatory system; Z88.1 Allergy status to other antibiotic agents; Z79.899 Other long term (current) drug therapy; Z79.01 Long term (current) use of anticoagulants; Z91.19 Patient's noncompliance with other medical treatment and regimen; Z68.31 Body mass index [BMI] 31.0-31.9, adult

== ENCOUNTER 2019-03-06 13:18 | Emergency (ER) | payer OTHER ==
[~2019-03-06] VITALS: Ht 182.8 cm; Wt 106.1 kg
[~2019-03-06 13:18] MED LIST changes: +DICYCLOMINE HYD10 MG PO; +LEVEMIR FL100 UNIT/1 SC; +LEVOXYL88 MCG PO; +METOPROLOL SUC100 M2 PO; +MOTION SICKNESS25 MG PO; +ONDANSETRON HYDR4 M1 PO
[2019-03-06 13:24] VITALS: BP 138/58
[2019-03-06] MEDS ORDERED: BENADRYL ALLERG25 M5 PO (14:11)
[2019-04-23] MEDS ORDERED: KEFLEX500 M1 PO (14:33)
== END 2019-03-06 14:21 | disposition home or self-care (01) ==
LOC: ED 13:18
DX: L23.9 Allergic contact dermatitis, unspecified cause (principal); L03.211 Cellulitis of face; L03.114 Cellulitis of left upper limb; L03.113 Cellulitis of right upper limb; K21.9 Gastro-esophageal reflux disease without esophagitis; E11.40 Type 2 diabetes mellitus with diabetic neuropathy, unspecified; I13.0 Hypertensive heart and chronic kidney disease with heart failure and stage 1 through stage 4 chronic kidney disease, or unspecified chronic kidney disease; E11.22 Type 2 diabetes mellitus with diabetic chronic kidney disease; N18.3 Chronic kidney disease, stage 3 (moderate); I50.32 Chronic diastolic (congestive) heart failure; I25.10 Atherosclerotic heart disease of native coronary artery without angina pectoris; E66.9 Obesity, unspecified; M86.9 Osteomyelitis, unspecified; E03.9 Hypothyroidism, unspecified; F17.200 Nicotine dependence, unspecified, uncomplicated; Z79.4 Long term (current) use of insulin; Z68.39 Body mass index [BMI] 39.0-39.9, adult; Z88.1 Allergy status to other antibiotic agents; Z79.899 Other long term (current) drug therapy; Z86.73 Personal history of transient ischemic attack (TIA), and cerebral infarction without residual deficits

== ENCOUNTER → 2019-03-22 | Outpatient (CLI) | payer OTHER ==
[~2019-03-22] MED LIST changes: +BENADRYL ALLERG25 M5 PO; +ERTAPENEM1 GM IV; +KEFLEX500 M1 PO
== END | disposition home or self-care (01) ==
LOC: US 14:28
DX: M79.662 Pain in left lower leg (principal); R60.0 Localized edema

== ENCOUNTER 2019-04-25 12:51 | Inpatient (IN) | payer OTHER ==
[~2019-04-25] VITALS: Ht 182.8 cm; Wt 106.7 kg
--- NOTE | ~2019-04-25 | PR ---
[place], [place] PROGRESS NOTE NAME: DEBORAH SANTACRUZ UNIT #: [id number] ROOM: 422 DOCTOR: CHUCK SANTIAGOFEBRUARY BIRTHDATE: [birth year] DOS: 04/30/2019 SUBJECTIVE: The patient is a 69-year-old obese male who is being followed for osteomyelitis of the left fifth metatarsal. Cultures have grown ESBL Proteus and Klebsiella pneumoniae. He is currently on Merrem. He is alert, very difficult to obtain review of systems or level of orientation as he has a significant speech impediment but he seems to be responding fairly appropriately. He does state he has pain in the left foot. Denies any nausea, vomiting or diarrhea. No trouble breathing, had blood transfusion earlier today according to the patient. LABORATORY DATA: BUN 41, creatinine 2.19. WBC is 10.4, platelets 202. PHYSICAL EXAMINATION: VITAL SIGNS: Temperature 97.5, pulse 80, respirations 20, BP 127/60. GENERAL: A 69-year-old obese male, in no acute distress. HEAD, EYES, EARS, NOSE AND THROAT: Normocephalic. Conjunctivae clear. NECK: Supple. No thrush. LUNGS: Clear to auscultation bilaterally. Respirations even and unlabored. HEART: Regular rhythm. No murmur appreciated. ABDOMEN: Soft, nontender, obese. EXTREMITIES: No edema. Left foot wrapped. SKIN: Warm, dry, pale. Free of rashes. ASSESSMENT: Left fifth metatarsal osteomyelitis with extended-spectrum beta-lactamase Proteus and Klebsiella. PLAN: Continue the Merrem, to be given ertapenem upon discharge. His creatinine is rising. He is up to 2.19. Labs today did not have peripheral eosinophilia, but we will check a urine for eosinophils. ADDENDUM I agree with the assessment and plan made by the nurse practitioner, Christine Woods. I reviewed the labs and imaging and made the necessary changes in the note. CHRISTINE WOODS CNP [place], [place] PROGRESS NOTE NAME: DEBORAH SANTACRUZ UNIT #: [id number] ROOM: 422 DOCTOR: CHUCK SANTIAGOFEBRUARY BIRTHDATE: [birth year] Stephy Jones MD CM:RICHI [id number] FEBRUARY CHUCK SANTIAGO 05/04/19 0547 interface
--- NOTE | ~2019-04-25 | EKG ---
[place], [place] ELECTROCARDIOGRAM REPORT NAME: DEBORAH SANTACRUZ UNIT #: [id number] ROOM: 422 DOCTOR: RAFIA DRAFT REPORT BIRTHDATE: [birth year] [facility] Test Date: 2019-04-25 Test Time: 21:18:23 Pat Name: DEBORAH SANTACRUZ Department: Room: 422 Gender: M Gas Collection System Operator: WILEY RESP : 1950 Requested By: PHYLICIA ROSENBERG Order Number: [id number] Reading MD: Margareth Mancini Measurements Intervals [place] Rate: 94 P: -23 PA: 197 QRS: 16 QRSD: 93 T: 20 QT: 364 QTc: 456 Interpretive Statements Sinus rhythm Inferior infarct, old Probable anterior infarct, old Compared to ECG 03/28/2019 22:13:51 No significant changes Electronically Signed On 04-28-2019 4:27:18 PDT by Margareth Mancini CM:EKGRPT:ELECTROCARDIOGRAM REPORT 17 0427 PHYLICIA MEHTA DRAFT REPORT PHYLICIA ROSENBERG DO
--- NOTE | ~2019-04-25 | EKG ---
[place], [place] ELECTROCARDIOGRAM REPORT NAME: DEBORAH SANTACRUZ UNIT #: [id number] ROOM: 422 DOCTOR: RAFIA DRAFT REPORT BIRTHDATE: [birth year] [facility] Test Date: 2019-04-25 Test Time: 13:34:47 Pat Name: DEBORAH SANTACRUZ Department: Room: 422 Gender: M Chief Counsel: : 1950 Requested By: RY MARIA Order Number: [id number] Reading MD: Margareth Mancini Measurements Intervals [place] Rate: 86 P: -18 LA: 194 QRS: 0 QRSD: 97 T: 27 QT: 371 QTc: 444 Interpretive Statements Sinus rhythm Ventricular premature complex Inferior infarct, old Anteroseptal infarct, old Baseline wander in lead(s) V3 Compared to ECG 03/28/2019 22:13:51 Ventricular premature complex(es) now present Myocardial infarct finding still present Electronically Signed On 04-28-2019 4:23:51 PDT by Margareth Mancini CM:EKGRPT:ELECTROCARDIOGRAM REPORT [id number] RY MEHTA DRAFT REPORT RY MARIA DO
--- NOTE | ~2019-04-25 | EKG ---
[place], [place] ELECTROCARDIOGRAM REPORT NAME: DEBORAH SANTACRUZ UNIT #: [id number] ROOM: 422 DOCTOR: RAFIA DRAFT REPORT BIRTHDATE: [birth year] [facility] Test Date: 2019-04-25 Test Time: 19:10:05 Pat Name: DEBORAH SANTACRUZ Department: Room: 422 Gender: M Behavioral Health Assistant: WILEY RESP : 1950 Requested By: PHYLICIA ROSENBERG Order Number: [id number] Reading MD: Margareth Mancini Measurements Intervals [place] Rate: 94 P: -10 LA: 179 QRS: 21 QRSD: 94 T: 31 QT: 349 QTc: 437 Interpretive Statements Sinus rhythm Inferior infarct, old Anterior infarct, old Baseline wander in lead(s) V2,V3,V5,V6 Compared to ECG 03/28/2019 22:13:51 No significant changes Electronically Signed On 04-28-2019 4:26:47 PDT by Margareth Mancini CM:EKGRPT:ELECTROCARDIOGRAM REPORT 09 0426 PHYLICIA MEHTA DRAFT REPORT PHYLICIA ROSENBERG DO
--- NOTE | ~2019-04-25 | PR ---
[place], [place] PROGRESS NOTE NAME: DEBORAH SANTACRUZ UNIT #: [id number] ROOM: 422 DOCTOR: CHUCK SANTIAGOFEBRUARY BIRTHDATE: [birth year] DOS: 05/01/2019 SUBJECTIVE: The patient is being seen for a left fifth metatarsal osteomyelitis. Cultures have grown ESBL positive Proteus and Klebsiella. He remains on Merrem. Today, he is sleepy, but does not really have any other complaints. He has significant speech impediment, very much limiting. REVIEW OF SYSTEMS: He has had no fevers. LABORATORY DATA: Show WBCs 8.7, platelets 204. BUN 36, creatinine is down to 1.7. OBJECTIVE: VITAL SIGNS: Temperature 98.4, pulse 75, respirations 20, BP 138/74. GENERAL: Very sleepy, a 69-year-old male, in no acute distress, does awaken easily. HEENT: Normocephalic, no thrush. Conjunctivae clear. NECK: Supple. LUNGS: Clear to auscultation bilaterally. Respirations even and unlabored. HEART: Regular rhythm. No murmur appreciated. ABDOMEN: Soft, nondistended. EXTREMITIES: +1 edema bilateral lower extremities. Left foot is wrapped. Right upper extremity has PICC in place. Dressing dry and intact. No signs of phlebitis. SKIN: Warm, dry, pale. Free of rashes. ASSESSMENT: Left fifth metatarsal osteomyelitis with extended-spectrum beta-lactamase Proteus and Klebsiella. PLAN: Continue Merrem. He is to be switched over to ertapenem upon discharge. Creatinine did show improvement today. Urine for eosinophils is pending, was ordered yesterday as there was a bump in his creatinine. ADDENDUM I agree with the assessment and plan made by the nurse practitioner, Christine Woods. I reviewed the labs and imaging and made the necessary changes in the note. CHRISTINE WOODS CNP [place], [place] PROGRESS NOTE NAME: DEBORAH SANTACRUZ UNIT #: [id number] ROOM: 422 DOCTOR: CHUCK SANTIAGOFEBRUARY BIRTHDATE: [birth year] Stephy Jones MD CM:RICHI [id number] FEBRUARY WOODS [facility] 05/04/19 0518 interface
[~2019-04-25 12:51] MED LIST changes: -ERTAPENEM1 GM IV
[2019-04-25 12:52] VITALS: BP 120/57
[2019-04-25 13:45] LABS: BASO % 0.2 % (0.0-1.0); EOS # 0.5 10*3/uL (0.0-0.4); EOS % 4.2 % (1.0-4.0); HEMOGLOBIN 8.5 g/dl (14.0-18.0); LYMPH # 1.6 10*3/uL (1.3-4.4); LYMPH % 14.3 % (27.0-41.0); MEAN CELL VOLUME 92.2 fl (80.0-94.0); MEAN CORPUSCULAR HGB CONC 31.5 g/dl (33.0-37.0); MEAN PLATELET VOLUME 10.8 fl (9.6-12.3); MONO # 0.5 10*3/uL (0.1-1.0); MONO % 4.7 % (3.0-9.0); NEUT # 8.3 10*3/uL (2.3-7.9); NEUT % 75.6 % (47.0-73.0); PLATELET COUNT AUTOMATED 188 10*3/uL (130-400); RED BLOOD COUNT 2.93 10*6/uL (4.50-5.90); RED CELL DISTRI WIDTH 13.8 % (0-14.5)
[2019-04-25 13:56] LABS: ACT PARTIAL THROMBO TIME 34.2 SECONDS (20.0-32.1); INTERNATIONAL NORM RATIO 1.2 (2.0-3.5)
[2019-04-25 14:03] LABS: ALBUMIN 2.2 gm/dl (3.1-4.5); ALKALINE PHOSPHATASE 110 U/L (45-117); BUN 33 mg/dl (7-24); CHLORIDE 106 mmol/L (98-107); CREATININE 1.68 mg/dL (0.70-1.30); LIPASE 124 U/L (73-393); POTASSIUM 4.6 mmol/L (3.5-5.1); SGOT/AST 11 IU/L (3-35); SGPT/ALT 27 U/L (12-78); SODIUM 136 mmol/L (136-145); TOTAL PROTEIN 5.8 gm/dL (6.4-8.2)
[2019-04-25 14:07] LABS: TROPONIN I < 0.015 ng/ml (<0.045)
--- NOTE | 2019-04-25 14:40 | NUR ---
PATIENT REFUSES IV AT THIS TIME. STATES HE WAS JUST SUPPOSED TO GET A SHOT AND GO HOME
[2019-04-25 16:49] VITALS: BP 147/64
[2019-04-25 17:31] VITALS: BP 137/64
--- NOTE | 2019-04-25 19:10 | NUR ---
WOUND PHOTOS TAKEN. PATIENT DENIES ANY OTHER WOUNDS AND REFUSES TO BE CHECKED.
[2019-04-25 20:00] VITALS: BP 145/59
--- NOTE | 2019-04-25 20:00 | NUR ---
Time: 1999 A 69 year old MALE admitted to under services of SHEY CLAUDIO DO. Pt. arrived via bed from ER. Chief complaint: HYPERGLYCEMIA. PT oriented to room/unit. Safety measures put in place. Initial assessment completed. Wounds to left foot measured, photos were taken in the ER per ER nurse. PT voices no complaints or needs at this time. He denies any pain or discomfort. ekg monitor tech applied. Belongings accounted for. TROY ESTRELLA
--- NOTE | 2019-04-25 22:36 | NUR ---
DR. WILEY NOTIFIED PT'S MED REC IS UNABLE TO BE UPDATED AT THIS TIME. PT STATES SOME OF HIS MEDICATIONS WERE RECENTLY SWITCHED AND HE IS NOT SURE WHAT HE TAKES. HE ALSO STATES HE WAS RECENTLY STARTED ON AN ANTIBIOTIC FOR A UTI BUT IS UNABLE TO REMEMBER THE NAME OF IT. HIS PHARMACY IS [facility] WHICH IS CLOSED AT THIS TIME AND DOES NOT OPEN UNTIL 9AM. THE PHONE NUMBER IS: PLEASE CALL TO VERIFY MEDICATIONS ON MED REC.
[2019-04-26] VITALS: BP 129/51
[2019-04-26 07:17] LABS: BASO % 0.2 % (0.0-1.0); EOS # 0.5 10*3/uL (0.0-0.4); EOS % 6.1 % (1.0-4.0); HEMOGLOBIN 8.2 g/dl (14.0-18.0); LYMPH # 1.4 10*3/uL (1.3-4.4); LYMPH % 16.6 % (27.0-41.0); MEAN CELL VOLUME 92.2 fl (80.0-94.0); MEAN CORPUSCULAR HGB 29.1 pg (27.0-31.0); MEAN CORPUSCULAR HGB CONC 31.5 g/dl (33.0-37.0); MEAN PLATELET VOLUME 10.7 fl (9.6-12.3); MONO # 0.4 10*3/uL (0.1-1.0); MONO % 4.6 % (3.0-9.0); NEUT % 71.2 % (47.0-73.0); PLATELET COUNT AUTOMATED 172 10*3/uL (130-400); RED BLOOD COUNT 2.82 10*6/uL (4.50-5.90); RED CELL DISTRI WIDTH 13.7 % (0-14.5); WHITE BLOOD COUNT 8.5 10*3/uL (4.8-10.8)
--- NOTE | 2019-04-26 07:25 | NUR ---
PHYSICAL THERAPY Nursing screen received. Chart reviewed. PAtient admitted due to BS 420+. PAtient usually (I) with mobility. No PT indicated at this time. Daily mobility with nursing prn recommneded. Thank you. Aziza De León,PT
--- NOTE | 2019-04-26 07:26 | NUR ---
DEBORAH SANTACRUZ [id number] Please refer to the physician's history and physical for past medical history, comorbid conditions, and allergies. Diagnosis: DEHYDRATION Isauro Score: 18,LOW OR NO RISK WOUND DESCRIPTIONS: Wound Number: 1 Location of the wound: left medial aspect of foot ( previous site of great toe) Type of wound: surgical Thickness: Full Size: 1.1cm x 1.6cm x <0.1cm Tunneling: none Undermining: none Sinus Tract: none Presence of Exudate: none Amount: None Color: Yellow, brown, red Odor: None Periwound Skin Appearance: Normal Wound edges: approximated Pain (associated with wound): none at time of assessment How does patient state this happened? pt stated he had the bone removed Wound Number: 2 Location of the wound: left heel distal Type of wound: fissure Thickness: Size: 1.1cm x 0.3cm x <0.1cm Tunneling: none Undermining: none Sinus Tract: none Presence of Exudate: Amount: None Color: Yellow Odor: None Periwound Skin Appearance: Normal Wound edges: closed Pain (associated with wound): none at time of assessment How does patient state this happened? pt stated he had this area for a while Wound Number: 3 Location of the wound: left lateral aspect of foot near 5th toe Thickness: Full Size: 3.6cm x 3.8cm x <0.1cm Tunneling: none Undermining: none Sinus Tract: none Presence of Exudate: none Amount: None Color: Black, brown, yellow, red Odor: None Periwound Skin Appearance: callus Wound edges: approximated Pain (associated with wound): none at time of assessment How does patient state this happened? pt stated he woke up when he was transfered with that wound Wound Number: 4 Location of the wound: left 3rd toe Thickness: Full Size: 0.2cm x 0.9cm x <0.1cm Tunneling: none Undermining: none Sinus Tract: none Presence of Exudate: none Amount: None Color: brown, yellow, red Odor: None Periwound Skin Appearance: Normal Wound edges: approximated Pain (associated with wound): none at time of assessment How does patient state this happened? pt is unsure how this happened Wound Number: 5 Location of the wound: left heel proximal Type of wound: unstageable Thickness: Full Size: 0.4cm x 0.3cm x <0.1cm Tunneling: none Undermining: none Sinus Tract: none Presence of Exudate: none Amount: None Color: Brown Odor: None Periwound Skin Appearance: Normal Wound edges: approximated Pain (associated with wound): none at time of assessment How does patient state this happened? pt is unsure how this happened Wound Number: 6 Location of the wound: left 5th toe Thickness: Partial Size: 0.2cm x 0.2cm x 0.1cm Tunneling: none Undermining: none Sinus Tract: none Presence of Exudate: none Amount: None Color: Red Odor: None Periwound Skin Appearance: Normal Wound edges: approximated Pain (associated with wound): none at time of assessment How does patient state this happened? pt is unsure how he got this wound Wound Number: 7 Location of the wound: below left 2nd toe Thickness: Partial Size: 1.2cm x 0.8cm x 0.1cm Tunneling: none Undermining: none Sinus Tract: none Presence of Exudate: none Amount: None Color: Red Odor: None Periwound Skin Appearance: Normal Wound edges: approximated Pain (associated with wound): none at time of assessment How does patient state this happened? pt unsure how this happened Surface the patient is resting on: Position Pro SKIN PREVENTION RECOMMENDATION: 1. Pressure redistribution support surface as appropriate 2. Elevate heels 3. Remove boots/TEDS every shift and reapply 4. Head of bed 30 degrees as tolerated 5. Assess nutrition and hydration 6. Manage moisture 7. Avoid the use of containment devices while in bed 8. Use absorptive products on surfaces limit layers of linens on bed 9. Turn and reposition every 1-2 hours in bed and every 1 hour in chair as tolerated 10. Weight shifts every 15 minutes while up in chair 11. Offloading with pillows or device to keep heels elevated off bed 12. Monitor skin at least every shift 13. Inspect under medical devices twice a day WOUND TREATMENT RECOMMENDATIONS: Consult podiatry since this patient is known to them and they did the last surgery, also for possible debridement if studies allow Venous and arterial studies due to non-healing wounds Imaging studies to left foot due to non-healing wounds. Partial thickness guidelines: Cleanse left 5th toe and below left 2nd toe with nss apply sureprep around the wound hydrogel to wound bed and cover with bandaid. Full thickness guidelines: Cleanse left medial aspect of foot. left heel distal, left lateral foot, left 3rd toe and left heel proximal with nss and apply sureprep around the wound therahoney to wound bed and cover with dsd daily and prn for soiling. Heel raiser pro boots to bilateral feet while in bed.
[2019-04-26 07:52] LABS: ALKALINE PHOSPHATASE 102 U/L (45-117); BUN 27 mg/dl (7-24); CHLORIDE 111 mmol/L (98-107); CREATININE 1.24 mg/dL (0.70-1.30); PHOSPHOROUS 3.7 mg/dL (2.5-4.9); POTASSIUM 4.3 mmol/L (3.5-5.1); SGOT/AST 10 IU/L (3-35); SGPT/ALT 21 U/L (12-78); SODIUM 139 mmol/L (136-145); TOTAL PROTEIN 5.3 gm/dL (6.4-8.2)
[2019-04-26 08:00] VITALS: BP 136/52
--- NOTE | 2019-04-26 08:07 | NUR ---
Nursing screen completed. Patient admitted with hyperglycemia. Patient is usually independent in ADLs at home. No OT indicated at this time. Encourage ADls with nursing care. Thank you. Kinsey Sutherland OTR/L
--- NOTE | 2019-04-26 09:00 | NUR ---
Crystal Attacher in to talk to patient. Patient states lives at home with alone. There are few steps in the home. [facility]ician: [facility] Home health services: aids 3 days a week Patient's level of ADLs: MINIMAL ASSIST Patient has working utilities: all working DME: walker Follow-up physician's appointment after d/c: will be made by hospitalist nurse director upon discharge Does patient want to access PORTAL?: no Discharge plan discussed with patient, patient lives at home alone, he is independent in ambulation with a walker. patient has aid services Thursday and Thursday 4 hours and Thursday 4 hours in the evening. he states his insurance company also provides him frozen meals 14 meals every two weeks, patient stated he has an appointment with Dr Zambrano on of this week, and would also like his va billed for his stay, patient denies any other needs at this time. STEVAN CASPER
--- NOTE | 2019-04-26 10:02 | NUR ---
MICHAELA CHAVEZ CALLED REGARDING PATIENTS MEDICATION LIST. SPOKE WITH PHARMACIST WHO STATES THAT THE ONLY MEDICATION THE PATIENT HAS HAD FILLED RECENTLY IS KEFLEX 500MG Q6H. HE STATES THAT ALL OTHER MEDICATIONS ARE CURRENTLY ON HOLD.
[2019-04-26] MEDS ORDERED: KEFLEX500 M1 PO (10:04)
--- NOTE | 2019-04-26 10:09 | NUR ---
DR RAZA NOTIFIED THAT PATIENTS MED REC IS UP TO DATE.
--- NOTE | 2019-04-26 10:31 | NUR ---
Dr. Schulz notified of wound care recommendations.
--- NOTE | 2019-04-26 11:30 | NUR ---
case management contacted Raudel Jolley [facility] regarding patient's admission to this facility, spoke to Meche, patient's information given, will await a return call from [facility] case finishing machine adjuster
[2019-04-26 12:00] VITALS: BP 138/56
--- NOTE | 2019-04-26 12:47 | NUR ---
case management received a call from Monik, case management from [facility], Monik requested patient's information be faxed, patient's information faxed to Monik
[2019-04-26 16:00] VITALS: BP 130/64
--- NOTE | 2019-04-26 19:20 | NUR ---
PT RESTING IN BED AT THIS TIME WITH HIS EYES SHUT. THERE ARE NO OBVIOUS SIGNS/SYMPTOMS OF PAIN OR DISCOMFORT NOTED. RESPIRATIONS ARE EASY AND NONLABORED ON ROOM AIR. HE IS NSR ON THE MONITOR. SAFETY MEASURES IN PLACE, CALL LIGHT IS WITHIN REACH. WILL CONTINUE TO MONITOR PT
--- NOTE | 2019-04-26 19:26 | NUR ---
PT STATES HE IS NAUSEATED AND FEELS LIKE HE IS GOING TO VOMIT. DR. MAYS NOTIFIED, NEW ORDERS FOR PRN ZOFRAN ADDED. WILL CONTINUE TO MONITOR PT
--- NOTE | 2019-04-26 19:35 | NUR ---
IV ZOFRAN ADMINISTERED PER ORDER FOR C/O NAUSEA. THERE IS NO ACTIVE VOMITING AT THIS TIME. WILL MONITOR FOR EFFECTIVENESS OF MEDICATION.
--- NOTE | 2019-04-26 19:52 | NUR ---
DR. MAYS NOTIFIED MED REC UP TO DATE.
--- NOTE | 2019-04-26 19:53 | NUR ---
DR. MAYS NOTIFIED OF PT'S TEMP OF 100.3 F. ONE TIME DOSE OF MOTRIN ORDERED. WILL REASSESS VITALS & CONTINUE TO MONITOR PT.
[2019-04-26 20:00] VITALS: BP 118/50
[2019-04-27] VITALS (7 sets, daily range): BP systolic 98–145; BP diastolic 44–67
--- NOTE | 2019-04-27 09:00 | NUR ---
case management visits with patient, patient will be having a procedure this am, no needs at this time
--- NOTE | 2019-04-27 09:03 | NUR ---
Dr. Schulz notified of wound care recommendations.
--- NOTE | 2019-04-27 15:36 | NUR ---
DR RAZA NOTIFIED OF PT C/O OF PAIN TO OPERATIVE FOOT. NEW ORDERS RECEIVED.
--- NOTE | 2019-04-27 21:30 | NUR ---
PT. C/O ABOUT PAIN TO LEFT FOOT. INFORMED PATIENT THAT I WOULD CALL THE DRCasandra FOR PAIN MEDICATION.
--- NOTE | 2019-04-27 22:00 | NUR ---
BLOOD SUGAR 325; COVERAGE GIVEN PER EMAR.
--- NOTE | 2019-04-27 22:05 | NUR ---
MEDICATED WITH ULTRAM FOR C/O LEFT FOOT PAIN RATED A 6/10. PT. STATES THAT "THAT'S NOT GOING TO DO ANY GOOD." WILL CONTINUE TO MONITOR.
--- NOTE | 2019-04-27 22:19 | NUR ---
MEDICATED WITH RESTORIL FOR C/O INSOMNIA.
[2019-04-28] VITALS: BP 98/47
--- NOTE | 2019-04-28 01:06 | NUR ---
MEDICATED WITH TYLENOL FOR C/O LEFT FOOT PAIN. PT. C/O THAT TYLENOL IS NOT GOING TO HELP. INFORMED PATIENT THAT HE WAS JUST MEDICATED AT APPROXIMATELY 22:00 WITH PAIN MEDICATION & SHORTLY AFTER THAT WITH RESTORIL. PT. VERBALIZED UNDERSTANDING. CALL LIGHT WITHIN REACH.
--- NOTE | 2019-04-28 02:36 | NUR ---
MEDICATED WITH MS 1 MG ONE TIME ORDER PER DUE TO PT. C/O LEFT FOOT PAIN.
--- NOTE | 2019-04-28 06:18 | NUR ---
MEDICATED WITH ULTRAM FOR C/O LEFT FOOT PAIN. BLOOD SUGAR 209; COVERAGE GIVEN PER EMAR.
--- NOTE | 2019-04-28 06:30 | NUR ---
BLOOD SUGAR 209; COVERAGE PER EMAR.
[2019-04-28 07:02] LABS: BASO % 0.2 % (0.0-1.0); EOS # 0.5 10*3/uL (0.0-0.4); EOS % 4.5 % (1.0-4.0); HEMATOCRIT 26.8 % (42.0-52.0); HEMOGLOBIN 8.3 g/dl (14.0-18.0); LYMPH # 1.4 10*3/uL (1.3-4.4); MEAN CELL VOLUME 92.4 fl (80.0-94.0); MEAN CORPUSCULAR HGB 28.6 pg (27.0-31.0); MONO # 0.5 10*3/uL (0.1-1.0); MONO % 4.4 % (3.0-9.0); NEUT # 7.8 10*3/uL (2.3-7.9); NEUT % 76.1 % (47.0-73.0); PLATELET COUNT AUTOMATED 205 10*3/uL (130-400); RED CELL DISTRI WIDTH 13.7 % (0-14.5); WHITE BLOOD COUNT 10.3 10*3/uL (4.8-10.8)
[2019-04-28 07:26] LABS: POTASSIUM 4.5 mmol/L (3.5-5.1)
[2019-04-28 07:49] LABS: ALBUMIN 2.2 gm/dl (3.1-4.5); CREATININE 1.66 mg/dL (0.70-1.30); TOTAL PROTEIN 5.8 gm/dL (6.4-8.2)
[2019-04-28 08:00] VITALS: BP 105/61
--- NOTE | 2019-04-28 08:30 | NUR ---
Patient resting quietly with no c/o discomfort. Respirations easy and regular. Vital signs stable. No overt distress. DELFINA DE SOUZA R
--- NOTE | 2019-04-28 09:00 | NUR ---
case mangagement visits with patient, patient states he will probable be discharged to home today, patient states he doesn't have any needs at home
[2019-04-28 12:00] VITALS: BP 122/61
[2019-04-28 15:07] LABS: ACID FAST SPEC PROCESSING Tissue Grinding (.)
[2019-04-28 15:07] LABS: ACID FAST SPEC PROCESSING Tissue Grinding (.)
[2019-04-28 16:00] VITALS: BP 146/76
[2019-04-28 20:00] VITALS: BP 125/66
--- NOTE | 2019-04-28 20:00 | NUR ---
PT. UP IN ROOM WITH WALKER & STATES THAT HE HAS TO GO TO THE BATHROOM BUT WALKING TO THE WINDOW. ASSIST OF 2 RN'S TO BATHROOM.
--- NOTE | 2019-04-28 20:10 | NUR ---
PT. VERY AGITATED AND DISREPECTFUL TO STAFF/PA'S WHILE PA'S ATTEMPTING TO ASSIST PATIENT BACK TO BED; CHANGE HIS PJ BOTTOMS & CHANGE HIS LINENS.
--- NOTE | 2019-04-28 20:15 | NUR ---
CHARGE NURSE INFORMED OF PT. BEING DISREPECTFUL & UNCOOPERATIVE & CAME INTO THE ROOM TO TALK TO THE PT.
--- NOTE | 2019-04-28 20:25 | NUR ---
MEDICATED WITH TYLENOL FOR ELEVATED TEMPERATURE.
--- NOTE | 2019-04-28 22:00 | NUR ---
TEMPERATURE 100.8; TYLENOL GIVEN EARLIER APPARENTLY EFFECTIVE.
--- NOTE | 2019-04-28 22:30 | NUR ---
PT. GETTING UP TO BATHROOM. PT. WILL NOT WAIT FOR RN TO DISCONNET IV; PT. FELL BACK ON THE BED. ASSISTED BACK UP BY THIS RN AND AMBULATED TO BATHROOM WITH ASSISTANCE OF WALKER. PA CALLED TO ROOM TO HELP THIS RN CHANGE PATIENT'S LINENS. PT. HAS HAD SEVERAL BOUTS OF DIARRHEA. BACK TO BED WITH ASSISTANCE OF 2. CALL LIGHT PLACED WITHIN REACH. WILL CONTINUE TO MONITOR.
[2019-04-29] VITALS: BP 106/53
--- NOTE | 2019-04-29 03:12 | NUR ---
MEDICATED WITH RESTORIL FOR C/O INSOMNIA. IV FLUIDS CONTINUE TO INFUSE WITHOUT DIFFICULTY. PT. STATES THAT HE IS FEELING BETTER THAN EARLIER IN THE SHIFT. CALL LIGHT WITHIN REACH. NO DISTRESS NOTED.
--- NOTE | 2019-04-29 06:15 | NUR ---
PT. PULLED OUT IV.
[2019-04-29 06:57] LABS: BASO % 0.2 % (0.0-1.0); EOS # 0.3 10*3/uL (0.0-0.4); EOS % 2.2 % (1.0-4.0); HEMATOCRIT 27.6 % (42.0-52.0); HEMOGLOBIN 8.4 g/dl (14.0-18.0); LYMPH # 1.5 10*3/uL (1.3-4.4); LYMPH % 11.8 % (27.0-41.0); MEAN CELL VOLUME 94.8 fl (80.0-94.0); MEAN CORPUSCULAR HGB 28.9 pg (27.0-31.0); MEAN CORPUSCULAR HGB CONC 30.4 g/dl (33.0-37.0); MEAN PLATELET VOLUME 10.7 fl (9.6-12.3); MONO # 0.7 10*3/uL (0.1-1.0); MONO % 5.3 % (3.0-9.0); NEUT # 10.4 10*3/uL (2.3-7.9); PLATELET COUNT AUTOMATED 210 10*3/uL (130-400); RED BLOOD COUNT 2.91 10*6/uL (4.50-5.90); RED CELL DISTRI WIDTH 13.8 % (0-14.5); WHITE BLOOD COUNT 12.9 10*3/uL (4.8-10.8)
[2019-04-29 07:09] LABS: CREATININE 1.89 mg/dL (0.70-1.30); TOTAL PROTEIN 5.8 gm/dL (6.4-8.2)
[2019-04-29 08:00] VITALS: BP 111/56
--- NOTE | 2019-04-29 11:31 | NUR ---
PT REQUESTED AND WAS MEDICATED WITH ULTRAM FOR C/O LEFT FOOT PAIN. CALL LIGHT IN REACH. WILL MONITOR
[2019-04-29 11:59] VITALS: BP 124/60
--- NOTE | 2019-04-29 15:41 | NUR ---
24 HR chart check completed.
[2019-04-29 15:47] VITALS: BP 128/58
[2019-04-29 20:00] VITALS: BP 102/43
--- NOTE | 2019-04-29 22:00 | NUR ---
PATIENT AGIATED. SCREAMING, CUSSING AT STAFF. PATIENT ATTEMPTED TO THROW WALKER AT RN ALEIDA. DISCONNECTED IV FLUIDS FROM PICC LINE. REFUSING FLUIDS,ANITBIOTICS. STATES HES LEAVING. DR. GREGORY NOTIFIED. RECOMMENED TO HAVE NRUSING DOUGH SCALER AND MIXER COME TO FLOOR. SECURITY CALLED TO FLOOR AT THIS TIME.
--- NOTE | 2019-04-29 22:15 | NUR ---
COMMERCIAL CREDIT HEAD AND THIS NURSE IN ROOM WITH SECURITY. PATIENT CAN NOT FIND HIS CELL PHONE. ACCUSING STAFF OF STEALING HIS CELL PHONE. CELL PHONE LOCATED IN HOSPITAL GROWN POCKET. STILL IRRATIONABLE, SCREAMING AND CUSSING AT STAFF. ATTEMPTING TO GET DRESSED. REFUSING ASSISTANCE.
--- NOTE | 2019-04-29 22:30 | NUR ---
SPOKE WITH DR. GREGORY REGARDING PATIENT PICC LINE. STATES THE PICC LINE MUST COME OUT BEFORE PATIENT LEAVES.
--- NOTE | 2019-04-29 22:35 | NUR ---
PATIENT STILL UNABLE TO GET DRESSED. STILL INSISTING HE IS LEAVING, REFUSING HELP TO PUT HIS CLOTHES ON. SECURITY OUTSIDE PATIENTS DOOR.
--- NOTE | 2019-04-29 22:45 | NUR ---
PATIENT NOW LAYING BACK IN BED. ATTEMPTED TO REMOVE PICC LINE. PATIENT REFUSING. THIS NURSE STATED "IF YOU ARE LEAVING AMA I HAVE TO REMOVE THE PICC LINE" PATIENT STATED "YOU ARENT FUCKING TOUCHING ME, ILL LEAVE IN A LITTLE. IM RELAXING." PATIENT REFUSING ALL CARE AND MEDICATIONS AT THIS TIME. WILL CONTINUE TO MONITOR. DR. GREGORY AND ENGLISH LANGUAGE LEARNER TEACHER NOTIFIED. SECURITY OFF FLOOR.
--- NOTE | 2019-04-29 22:45 | NUR ---
PATIENT NOW LAYING BACK IN BED. ATTEMPTED TO REMOVE PICC LINE. PATIENT REFUSES. PATIENT STATES " YOU ARENT FUCKING TOUCHING ME, ILL LEAVE IN A LITTLE, IM RELAXING." REFUSING TREATMENT. NOTIFIED DR. GREGORY. WILL CONTINUE TO MONITOR.
--- NOTE | 2019-04-30 02:22 | NUR ---
PATIENT SCREAMING OUT. THIS NURSE, TUBER OPERATOR AND PAS IN ROOM. PATIENT STATING THEIR IS A WOMEN IN THE BATHROOM AND SHE FELL AND NEEDS OUR HELP. ALSO STATES "HES MOVING OUT" SCREAMING AND CUSSING AT STAFF AGAIN. ATTEMPTED TO REORIENT PATIENT, ASSURED PATIENT THERE IS NO ONE IN HIS BATHROOM. PATIENT REQUESTED ICE FOR HIS DIET COLA. THIS NURSE GOT ICE FOR PATIENT. PATIENT NOW STATES WE ARE TRYING TO POSION HIM AND HE DOESNT WANT ANYTHING THAT WE GIVE HIM. PATIENT IN BED WITH BED ALARM ON. CALL LIGHT JADEN SINCLAIR. DR. GREGORY NOTIFIED. WILL CONTINUE TO MONITOR.
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
--- NOTE | 2019-04-30 03:43 | NUR ---
SLEEPING AT PRESENT TIME. RESP. EASY AND REG. VISUALLY SEE PICC LINE DRESSING SITE BLOODY BUT DOES NOT APPEAR TO BE ACTIVELY BLEEDING AT THIS TIME.
--- NOTE | 2019-04-30 04:05 | NUR ---
PT. SLEEPING AT PRESENT TIME. NOT AWAKENING PT AT THIS TIME.
[2019-04-30 07:08] LABS: BASO % 0.1 % (0.0-1.0); EOS # 0.4 10*3/uL (0.0-0.4); EOS % 3.5 % (1.0-4.0); HEMATOCRIT 24.5 % (42.0-52.0); HEMOGLOBIN 7.3 g/dl (14.0-18.0); LYMPH # 1.2 10*3/uL (1.3-4.4); LYMPH % 11.4 % (27.0-41.0); MEAN CORPUSCULAR HGB 28.3 pg (27.0-31.0); MEAN CORPUSCULAR HGB CONC 29.8 g/dl (33.0-37.0); MEAN PLATELET VOLUME 10.6 fl (9.6-12.3); MONO # 0.6 10*3/uL (0.1-1.0); MONO % 5.6 % (3.0-9.0); NEUT # 8.2 10*3/uL (2.3-7.9); NEUT % 78.8 % (47.0-73.0); PLATELET COUNT AUTOMATED 202 10*3/uL (130-400); RED BLOOD COUNT 2.58 10*6/uL (4.50-5.90); RED CELL DISTRI WIDTH 14.1 % (0-14.5); WHITE BLOOD COUNT 10.4 10*3/uL (4.8-10.8)
[2019-04-30 07:29] LABS: CREATININE 1.92 mg/dL (0.70-1.30); POTASSIUM 5.6 mmol/L (3.5-5.1)
[2019-04-30 08:00] VITALS: BP 122/58
[2019-04-30 08:57] VITALS: BP 122/58
--- NOTE | 2019-04-30 10:28 | NUR ---
PATIENT SCREAMING CUSSING WALKER ON BED PATIENT PANTS FALLING OFF INSISTING ON WALKING PICC LINE AND IVF'S ARE COMPOMISED AT THIS POINT. INSTRUCTED STUDENT NURSES TO GET OUT OF ROOM PATIENT WANTING TO HIT STAFF. DR. ROBERTS AWARE. PATIENT NON COMPLIANT WILL NOT LISTEN.
--- NOTE | 2019-04-30 10:46 | NUR ---
DR. ROBERTS IN ROOM.
[2019-04-30 11:35] VITALS: BP 127/60
[2019-04-30 12:17] LABS: CREATININE 2.19 mg/dL (0.70-1.30); POTASSIUM 4.9 mmol/L (3.5-5.1)
--- NOTE | 2019-04-30 12:25 | NUR ---
PATIENT FULLY DRESSED SAYS HE IS GOING HOME. A LITTLE LESS AGITATED.
--- NOTE | 2019-04-30 14:35 | NUR ---
PATIENT CALM IN CHAIR EATING.
[2019-04-30 16:00] VITALS: BP 109/64
[2019-04-30 20:00] VITALS: BP 137/66
[2019-05-01] VITALS: BP 131/80
[2019-05-01 06:28] LABS: BASO % 0.2 % (0.0-1.0); EOS # 0.7 10*3/uL (0.0-0.4); EOS % 7.6 % (1.0-4.0); HEMATOCRIT 25.8 % (42.0-52.0); HEMOGLOBIN 7.9 g/dl (14.0-18.0); LYMPH # 1.7 10*3/uL (1.3-4.4); LYMPH % 19.6 % (27.0-41.0); MEAN CELL VOLUME 94.2 fl (80.0-94.0); MEAN CORPUSCULAR HGB 28.8 pg (27.0-31.0); MEAN CORPUSCULAR HGB CONC 30.6 g/dl (33.0-37.0); MEAN PLATELET VOLUME 10.4 fl (9.6-12.3); MONO # 0.6 10*3/uL (0.1-1.0); MONO % 6.8 % (3.0-9.0); NEUT # 5.7 10*3/uL (2.3-7.9); NEUT % 65.5 % (47.0-73.0); PLATELET COUNT AUTOMATED 204 10*3/uL (130-400); RED BLOOD COUNT 2.74 10*6/uL (4.50-5.90); RED CELL DISTRI WIDTH 14.3 % (0-14.5); WHITE BLOOD COUNT 8.7 10*3/uL (4.8-10.8)
[2019-05-01 06:42] LABS: CREATININE 1.7 mg/dL (0.70-1.30); POTASSIUM 5.2 mmol/L (3.5-5.1)
[2019-05-01 08:00] VITALS: BP 138/74
[2019-05-01 16:00] VITALS: BP 143/63
[2019-05-01 20:00] VITALS: BP 138/58
[2019-05-02] VITALS (10 sets, daily range): BP systolic 99–137; BP diastolic 45–82
[2019-05-02 06:34] LABS: BASO % 0.3 % (0.0-1.0); EOS # 0.6 10*3/uL (0.0-0.4); EOS % 9.2 % (1.0-4.0); HEMATOCRIT 23.2 % (42.0-52.0); HEMOGLOBIN 7.1 g/dl (14.0-18.0); LYMPH # 1.6 10*3/uL (1.3-4.4); LYMPH % 25.2 % (27.0-41.0); MEAN CELL VOLUME 92.4 fl (80.0-94.0); MEAN CORPUSCULAR HGB 28.3 pg (27.0-31.0); MEAN CORPUSCULAR HGB CONC 30.6 g/dl (33.0-37.0); MEAN PLATELET VOLUME 10.5 fl (9.6-12.3); MONO # 0.6 10*3/uL (0.1-1.0); MONO % 9.7 % (3.0-9.0); NEUT # 3.5 10*3/uL (2.3-7.9); NEUT % 55.1 % (47.0-73.0); PLATELET COUNT AUTOMATED 194 10*3/uL (130-400); RED BLOOD COUNT 2.51 10*6/uL (4.50-5.90); RED CELL DISTRI WIDTH 14.2 % (0-14.5); WHITE BLOOD COUNT 6.3 10*3/uL (4.8-10.8)
[2019-05-02 07:03] LABS: BUN 29 mg/dl (7-24); CHLORIDE 113 mmol/L (98-107); CREATININE 1.21 mg/dL (0.70-1.30); POTASSIUM 4.9 mmol/L (3.5-5.1); SODIUM 142 mmol/L (136-145)
--- NOTE | 2019-05-02 09:00 | NUR ---
case management visits with patient, patient states he will be going home when able, discussed with him needing iv antibiotics as an outpatient, patient states he will be coming back to the hospital to received the antibiotics, no other needs at this time
--- NOTE | 2019-05-02 12:21 | NUR ---
MR. SANTACRUZ IS RESTING. HE HAS BEEN PLEASANT AND COOPERATIVE. AMBULATES TO RESTROOM INDEPENDANTLY. AWARE OF PENDING BLOOD TRANSFUSION ORDERRED. CONSENT HAS BEEN SIGNED AND AWAITING LAB NOTIFICATION.
--- NOTE | 2019-05-02 13:44 | NUR ---
case management contacted [employer] to precert Ertapenem iv for patient to receive as an outpatient upon discharge, spoke to Bel, ertepenem is covered at 100% through patient's insurance, call reference number is [id number], will set up with central scheduling when discharge is received
--- NOTE | 2019-05-02 20:38 | NUR ---
24 HR chart check completed.
--- NOTE | 2019-05-02 21:00 | NUR ---
SLEEPING, AWAKENS EASILY. RESPIRATIONS EASY. LUNGS DIMINISHED, CLEAR. PULSE OX 93% RA. TRACE BLE EDEMA. DRESSING INTACT TO LLE. CALL LIGHT WITHIN REACH. NO VOICED COMPLAINTS. BED ALARM MAINTAINED FOR SAFETY
[2019-05-03] VITALS: BP 145/70
--- NOTE | 2019-05-03 | NUR ---
SLEEPING. NO DISTRESS NOTED. RESPIRATIONS EASY. VSS. CALL LIGHT WITHIN REACH. BED ALARM MAINTAINED FOR SAFETY
--- NOTE | 2019-05-03 06:30 | NUR ---
BSG 58. PATIENT A&O, TALKATIVE. DECLINES D50. PROVIDED WITH SLEIN HARTLEY AND MEGHA
--- NOTE | 2019-05-03 06:30 | NUR ---
MEDCIATED WITH ULTRAM PER PRN ORDER FOR COMPLAINTS OF LEFT FOOT PAIN RATING A 5. WILL MONITOR FOR EFFECTIVENESS
--- NOTE | 2019-05-03 07:30 | NUR ---
STATES RELIEF FROM EARLIER ULTRAM. STUDENT NURSE TO RECHECK BSG
--- NOTE | 2019-05-03 07:50 | NUR ---
DEBORAH SANTACRUZ [id number] Please refer to the physician's history and physical for past medical history, comorbid conditions, and allergies. Diagnosis: DEHYDRATION Isauro Score: 18,LOW OR NO RISK WOUND DESCRIPTIONS: Patient has dressing intact to Left lower extremity we are not to remove post op dressing per physician orders until patient is seen in the outpatient clinic for follow up. Surface the patient is resting on: Position Pro SKIN PREVENTION RECOMMENDATION: 1. Pressure redistribution support surface as appropriate 2. Elevate heels 3. Remove boots/TEDS every shift and reapply 4. Head of bed 30 degrees as tolerated 5. Assess nutrition and hydration 6. Manage moisture 7. Avoid the use of containment devices while in bed 8. Use absorptive products on surfaces limit layers of linens on bed 9. Turn and reposition every 1-2 hours in bed and every 1 hour in chair as tolerated 10. Weight shifts every 15 minutes while up in chair 11. Offloading with pillows or device to keep heels elevated off bed 12. Monitor skin at least every shift 13. Inspect under medical devices twice a day
[2019-05-03 07:52] LABS: BASO % 0.4 % (0.0-1.0); EOS # 0.6 10*3/uL (0.0-0.4); EOS % 8.8 % (1.0-4.0); LYMPH # 1.7 10*3/uL (1.3-4.4); LYMPH % 24.8 % (27.0-41.0); MEAN CELL VOLUME 91.9 fl (80.0-94.0); MEAN CORPUSCULAR HGB 28.8 pg (27.0-31.0); MEAN CORPUSCULAR HGB CONC 31.3 g/dl (33.0-37.0); MEAN PLATELET VOLUME 10.2 fl (9.6-12.3); MONO # 0.5 10*3/uL (0.1-1.0); MONO % 7.4 % (3.0-9.0); PLATELET COUNT AUTOMATED 206 10*3/uL (130-400); RED CELL DISTRI WIDTH 13.8 % (0-14.5); WHITE BLOOD COUNT 6.9 10*3/uL (4.8-10.8)
[2019-05-03 07:53] LABS: HEMATOCRIT 29.4 % (42.0-52.0); HEMOGLOBIN 9.2 g/dl (14.0-18.0)
[2019-05-03 08:00] VITALS: BP 143/67
[2019-05-03 08:01] LABS: ALKALINE PHOSPHATASE 221 U/L (45-117); BUN 25 mg/dl (7-24); CHLORIDE 112 mmol/L (98-107); CREATININE 1.09 mg/dL (0.70-1.30); SGOT/AST 74 IU/L (3-35); SGPT/ALT 69 U/L (12-78); SODIUM 144 mmol/L (136-145); TOTAL PROTEIN 5.7 gm/dL (6.4-8.2)
--- NOTE | 2019-05-03 08:20 | NUR ---
Spoke with Dr. Dias regarding patient stating he wants to take the dressing off and he was going to remove himself if we don't remove it. This nurse explained to him what the physician orders were and that is to keep the dressing intact until his follow appointment in the clinic.
--- NOTE | 2019-05-03 09:00 | NUR ---
case management visits with patient, patient will be going home when medically stable and resume home services. patient will also be coming back to the hospital daily for 6 weeks for iv antibiotics. case management will follow for any other home needs
--- NOTE | 2019-05-03 10:29 | NUR ---
case management contacted [facility] pharmacy, spoke to Rodger regarding patient coming to the hospital on a daily basis for 6 weeks of iv ertapenem, Rodger stated they have this medication in stock, will notify pharmacy when patient is discharge, antibiotic script faxed
[2019-05-03] MEDS ORDERED: ERTAPENEM1 GM IV (10:48)
--- NOTE | 2019-05-03 10:52 | NUR ---
case management received a message that patient would be discharged to home today, notified scheduling and patient is set up for 10am daily for 6 weeks, notified patient and patient's nurse of what time patient would need to be back at the hospital in the am, patient verbalized understanding
--- NOTE | 2019-05-03 13:16 | NUR ---
[facility] Discharge instructions reviewed with patient/family. Patient receptive and verbalizes understanding. Follow-up care arranged. Written instructions given to patient/family. SÁNCHEZ FIELD
[2019-06-08 10:06] LABS: ACID FAST CULTURE Negative (.)
[2019-06-08 10:06] LABS: ACID FAST CULTURE Negative (.)
== END 2019-05-03 13:16 | disposition home or self-care (01) | DRG 853 ==
LOC: ED 12:51 → EDHOLD 16:44 → 4E 16:44
PROVIDERS: Emergency Medicine; Internal Medicine; Podiatrist Foot & Ankle Surgery; Registered Nurse; Student in an Organized Health Care Education/Training Program; ADMIT Internal Medicine
PROC: 0QBP0ZX Excision of Left Metatarsal, Open Approach, Diagnostic (ICD-10-PCS; principal; 2019-04-27)
PROC: 02HV33Z Insertion of Infusion Device into Superior Vena Cava, Percutaneous Approach (ICD-10-PCS; 2019-04-29)
DX: A41.9 Sepsis, unspecified organism (principal); G93.41 Metabolic encephalopathy; N17.0 Acute kidney failure with tubular necrosis; D68.59 Other primary thrombophilia; I50.32 Chronic diastolic (congestive) heart failure; I13.0 Hypertensive heart and chronic kidney disease with heart failure and stage 1 through stage 4 chronic kidney disease, or unspecified chronic kidney disease; M86.671 Other chronic osteomyelitis, right ankle and foot; M86.172 Other acute osteomyelitis, left ankle and foot; E86.0 Dehydration; R19.7 Diarrhea, unspecified; E83.42 Hypomagnesemia; K21.9 Gastro-esophageal reflux disease without esophagitis; N18.3 Chronic kidney disease, stage 3 (moderate); M10.9 Gout, unspecified; G89.29 Other chronic pain; R07.89 Other chest pain; L97.519 Non-pressure chronic ulcer of other part of right foot with unspecified severity; E11.621 Type 2 diabetes mellitus with foot ulcer; H66.91 Otitis media, unspecified, right ear; Z96.641 Presence of right artificial hip joint; E03.9 Hypothyroidism, unspecified; E66.9 Obesity, unspecified; B96.1 Klebsiella pneumoniae [K. pneumoniae] as the cause of diseases classified elsewhere; B96.4 Proteus (mirabilis) (morganii) as the cause of diseases classified elsewhere; E11.42 Type 2 diabetes mellitus with diabetic polyneuropathy; Z16.12 Extended spectrum beta lactamase (ESBL) resistance; E11.65 Type 2 diabetes mellitus with hyperglycemia; E11.69 Type 2 diabetes mellitus with other specified complication; I25.10 Atherosclerotic heart disease of native coronary artery without angina pectoris; N40.0 Benign prostatic hyperplasia without lower urinary tract symptoms; F41.1 Generalized anxiety disorder; F32.9 Major depressive disorder, single episode, unspecified; E11.22 Type 2 diabetes mellitus with diabetic chronic kidney disease; Z79.4 Long term (current) use of insulin; Z86.73 Personal history of transient ischemic attack (TIA), and cerebral infarction without residual deficits; Z91.81 History of falling; Z95.5 Presence of coronary angioplasty implant and graft; Z90.49 Acquired absence of other specified parts of digestive tract; Z89.412 Acquired absence of left great toe; Z89.422 Acquired absence of other left toe(s); Z80.0 Family history of malignant neoplasm of digestive organs; Z83.3 Family history of diabetes mellitus; Z82.49 Family history of ischemic heart disease and other diseases of the circulatory system; Z88.1 Allergy status to other antibiotic agents; Z79.899 Other long term (current) drug therapy; Z79.01 Long term (current) use of anticoagulants; Z68.31 Body mass index [BMI] 31.0-31.9, adult

== ENCOUNTER 2019-07-05 18:33 | Inpatient (IN) | payer MEDICARE, OTHER ==
[~2019-07-05] VITALS: Ht 182.8 cm; Wt 99.1 kg
[2019-07-05 18:45] VITALS: BP 112/53
[2019-07-05 19:00] LABS: BASO % 0.5 % (0.0-1.0); EOS # 0.5 10*3/uL (0.0-0.4); EOS % 6.5 % (1.0-4.0); HEMATOCRIT 29.1 % (42.0-52.0); LYMPH # 2.2 10*3/uL (1.3-4.4); LYMPH % 26.4 % (27.0-41.0); MEAN CELL VOLUME 90.4 fl (80.0-94.0); MEAN CORPUSCULAR HGB CONC 30.9 g/dl (33.0-37.0); MEAN PLATELET VOLUME 12.3 fl (9.6-12.3); MONO # 0.4 10*3/uL (0.1-1.0); MONO % 4.7 % (3.0-9.0); NEUT # 5.1 10*3/uL (2.3-7.9); NEUT % 61.5 % (47.0-73.0); PLATELET COUNT AUTOMATED 145 10*3/uL (130-400); RED BLOOD COUNT 3.22 10*6/uL (4.50-5.90); RED CELL DISTRI WIDTH 16.6 % (0-14.5); WHITE BLOOD COUNT 8.3 10*3/uL (4.8-10.8)
[2019-07-05 19:08] VITALS: BP 116/57
[2019-07-05 19:11] LABS: ACT PARTIAL THROMBO TIME 26.2 SECONDS (20.0-32.1); INTERNATIONAL NORM RATIO 1.1 (2.0-3.5)
[2019-07-05 19:17] LABS: ALKALINE PHOSPHATASE 144 U/L (45-117); BUN 29 mg/dl (7-24); CHLORIDE 113 mmol/L (98-107); CREATININE 1.48 mg/dL (0.70-1.30); POTASSIUM 4.6 mmol/L (3.5-5.1); SGOT/AST 17 IU/L (3-35); SGPT/ALT 30 U/L (12-78); SODIUM 141 mmol/L (136-145)
[2019-07-05 19:19] LABS: TROPONIN I < 0.015 ng/ml (<0.045)
[2019-07-05 19:20] VITALS: BP 117/58
[2019-07-05 19:38] VITALS: BP 117/63
[2019-07-05 20:14] VITALS: BP 124/63
--- NOTE | 2019-07-05 20:37 | NUR ---
patient refused wound photo on the left lower extremity. patient states he does not want me unwrapping bandage.
--- NOTE | 2019-07-05 21:00 | NUR ---
A 69, admitted to , under the services of CANDE Baker DO with a diagnosis of CHEST PAIN. Chief complaint is CHEST PAIN. Patient arrived via stretcher from ER. Monitor applied. Initial assessment completed. Vital signs taken and recorded. CANDE BAKER DO notified of admission to the unit. Orders received. See assessment for past medical history, medications and allergies. Patient and/or family oriented to unit. [facility]. Clothing/patient valuable form completed. JOSS CAMARENA
--- NOTE | 2019-07-05 21:09 | NUR ---
PATIENT AMBULATED TO ROOM WITH 2 ASSIST AND WALKER. MULTIPLE FALLS DURING AMBULATION. PATIENT STATES "I CAN NOT WALK". STATES "THEY GAVE ME THAT NITRO INSTEAD OF REAL PAIN MEDICINE SO NOW I HAVE A HEADACHE. I CAN GO HOME". REFUSING TO TAKE BOOT OFF OF LEFT LEG FOR ASSESSMENT.
--- NOTE | 2019-07-05 21:20 | NUR ---
DR LARA AWARE OF PATIENT STATING HE IS LEAVING UNLESS HE GETS PAIN MEDICATION.
[2019-07-05 22:00] VITALS: BP 133/58
--- NOTE | 2019-07-05 22:30 | NUR ---
OK TO COMPLETE MED REC FROM DISCHARGE PAPERS FROM April PER DR LARA
[2019-07-06] VITALS: BP 114/53
--- NOTE | 2019-07-06 03:45 | NUR ---
PATIENT RESTING IN BED WITH NO S/S OF DISTRESS. RESPS EASY AND REGULAR. BED IN LOWEST POSITION, CALL LIGHT IN REACH
--- NOTE | 2019-07-06 06:10 | NUR ---
PATIENT SETTING OFF BED ALARM. STATES "TURN THIS F*CKING THING OFF! I DO NOT WANT THIS F*CKING THING ON! I AM BETTER NOW AND CAN WALK JUST FINE!". WHEN TRIED TO DISCUSS WITH PATIENT THAT THE BED ALARM IS ON FOR HIS SAFETY DUE TO NOT BEING ABLE TO WALK STEADY EVEN WITH A WALKER AND 2 ASSIST, PATIENT STATES "I DO NOT GIVE A SHIT, I AM GOING HOME!". WHEN OFFERED TO SIGN AN AMA PAPER TO GO HOME PATIENT STATES "I DO NOT DO THAT SHIT! THEY WILL HAVE TO F*CKING RELEASE ME! THAT DOCTOR TOLD ME IT IS JUST MY ACID REFLUX AND I CAN GO HOME!". PATIENT OUT OF BED REFUSING ASSIST. VISIBLY UNSTEADY. WHEN OFFERED HELP PATIENT STATES "NO, I DO THIS SHIT AT HOME ON MY OWN EVERYDAY. I AM JUST GOING TO SIT IN THE CHAIR!". PATIENT PIVOTED TO CHAIR WITH NO ASSIST, VISIBLY UNSTEADY. PATIENT REFUSING BODY ALARM FOR SAFETY, EVEN AFTER SAFETY BENEFITS WERE EXPLAINED TO THE PATIENT. PATIENT IS SITTING IN CHAIR AT BEDSIDE WITH LOCKED WHEELS. ENCOURAGED TO USE CALL LIGHT WHEN NEEDING TO GET OUT OF CHAIR. CALL LIGHT IN REACH.
[2019-07-06 06:55] LABS: BASO % 0.4 % (0.0-1.0); EOS # 0.5 10*3/uL (0.0-0.4); EOS % 9.6 % (1.0-4.0); HEMATOCRIT 27.2 % (42.0-52.0); HEMOGLOBIN 8.5 g/dl (14.0-18.0); LYMPH # 1.8 10*3/uL (1.3-4.4); LYMPH % 31.9 % (27.0-41.0); MEAN CELL VOLUME 88.6 fl (80.0-94.0); MEAN CORPUSCULAR HGB 27.7 pg (27.0-31.0); MEAN CORPUSCULAR HGB CONC 31.3 g/dl (33.0-37.0); MEAN PLATELET VOLUME 12.4 fl (9.6-12.3); MONO # 0.3 10*3/uL (0.1-1.0); MONO % 5.5 % (3.0-9.0); NEUT # 2.9 10*3/uL (2.3-7.9); NEUT % 52.2 % (47.0-73.0); PLATELET COUNT AUTOMATED 136 10*3/uL (130-400); RED BLOOD COUNT 3.07 10*6/uL (4.50-5.90); RED CELL DISTRI WIDTH 16.4 % (0-14.5); WHITE BLOOD COUNT 5.6 10*3/uL (4.8-10.8)
[2019-07-06 07:04] LABS: BUN 28 mg/dl (7-24); CHLORIDE 114 mmol/L (98-107); CREATININE 1.31 mg/dL (0.70-1.30); PHOSPHOROUS 3.3 mg/dL (2.5-4.9); POTASSIUM 4.2 mmol/L (3.5-5.1); SODIUM 143 mmol/L (136-145)
[2019-07-06 08:00] VITALS: BP 148/79
--- NOTE | 2019-07-06 08:00 | NUR ---
RESTING IN BED, DENIES ANY COMPLAINTS. VITALS STABLE. WANTS TO GO HOME
--- NOTE | 2019-07-06 09:00 | NUR ---
Cyber Operator in to talk to patient. Patient states lives at home with alone. There are few steps in the home. Physician: [facility] Patient's level of ADLs: MINIMAL ASSIST Patient has working utilities: all working DME: walker, Follow-up physician's appointment after d/c: will be made by hospitalist nurse director upon discharge Does patient want to access PORTAL?: no Discharge plan discussed with patient, he states he lives at home alone, he uses a walker for ambulation, he has aid services Thursday, Thursday and Thursday 4 hours each day, he has 14 frozen meals delivered every 2 weeks from his insurance company, he states he was recently at [facility] and was recently discharged. he states he will be returning home when medically stable and will continue with current services, case management will follow. STEVAN CASPER
[2019-07-06] MEDS ORDERED: CARAFATE1 G1 PO (10:17)
[2019-07-06] MEDS ORDERED: PROTONIX40 MG PO (10:17)
--- NOTE | 2019-07-06 11:15 | NUR ---
Discharge instructions reviewed with patient/family. Patient receptive and verbalizes understanding. Follow-up care arranged. Written instructions given to patient/family. DEVYN BERG
--- NOTE | 2019-07-06 12:07 | NUR ---
PHYSICAL THERAPY Nursing screen received. Patient discharged at this time. Thank you. Zoila Edgar,PT,DPT.
--- NOTE | 2019-07-06 13:34 | NUR ---
Nursing screen received and patient discharged to home. Kinsey Sutherland OTr/L
== END 2019-07-06 11:15 | disposition home or self-care (01) | DRG 392 ==
LOC: ED 18:33 → EDHOLD 20:06 → 4E 20:39
PROVIDERS: Emergency Medicine; Internal Medicine; ADMIT Internal Medicine
DX: K21.9 Gastro-esophageal reflux disease without esophagitis (principal); E44.0 Moderate protein-calorie malnutrition; I50.32 Chronic diastolic (congestive) heart failure; M86.671 Other chronic osteomyelitis, right ankle and foot; I13.0 Hypertensive heart and chronic kidney disease with heart failure and stage 1 through stage 4 chronic kidney disease, or unspecified chronic kidney disease; E86.0 Dehydration; R11.0 Nausea; E87.8 Other disorders of electrolyte and fluid balance, not elsewhere classified; R42 Dizziness and giddiness; D72.1 Eosinophilia; N40.0 Benign prostatic hyperplasia without lower urinary tract symptoms; I25.10 Atherosclerotic heart disease of native coronary artery without angina pectoris; M50.30 Other cervical disc degeneration, unspecified cervical region; F41.1 Generalized anxiety disorder; F17.210 Nicotine dependence, cigarettes, uncomplicated; F32.9 Major depressive disorder, single episode, unspecified; E03.9 Hypothyroidism, unspecified; E11.69 Type 2 diabetes mellitus with other specified complication; N18.3 Chronic kidney disease, stage 3 (moderate); H66.91 Otitis media, unspecified, right ear; G89.29 Other chronic pain; E11.621 Type 2 diabetes mellitus with foot ulcer; L97.519 Non-pressure chronic ulcer of other part of right foot with unspecified severity; M10.9 Gout, unspecified; E53.8 Deficiency of other specified B group vitamins; Z96.641 Presence of right artificial hip joint; E11.22 Type 2 diabetes mellitus with diabetic chronic kidney disease; E66.9 Obesity, unspecified; E11.65 Type 2 diabetes mellitus with hyperglycemia; D64.9 Anemia, unspecified; E83.42 Hypomagnesemia; E11.42 Type 2 diabetes mellitus with diabetic polyneuropathy; Z79.4 Long term (current) use of insulin; Z71.6 Tobacco abuse counseling; Z86.73 Personal history of transient ischemic attack (TIA), and cerebral infarction without residual deficits; Z91.81 History of falling; Z90.49 Acquired absence of other specified parts of digestive tract; Z95.5 Presence of coronary angioplasty implant and graft; Z89.422 Acquired absence of other left toe(s); Z82.49 Family history of ischemic heart disease and other diseases of the circulatory system; Z83.3 Family history of diabetes mellitus; Z80.8 Family history of malignant neoplasm of other organs or systems; Z88.1 Allergy status to other antibiotic agents; Z79.899 Other long term (current) drug therapy; Z79.01 Long term (current) use of anticoagulants; Z68.29 Body mass index [BMI] 29.0-29.9, adult

== ENCOUNTER → 2019-07-05 | Outpatient (CLI) | payer MEDICARE, OTHER ==
[~2019-07-05] MED LIST changes: +ERTAPENEM1 GM IV
== END | disposition home or self-care (01) ==
LOC: RESCLI 08:31
DX: E03.9 Hypothyroidism, unspecified (principal); M10.9 Gout, unspecified; J44.9 Chronic obstructive pulmonary disease, unspecified; K21.9 Gastro-esophageal reflux disease without esophagitis; I48.2 Chronic atrial fibrillation; E83.42 Hypomagnesemia; J30.2 Other seasonal allergic rhinitis; I95.1 Orthostatic hypotension; E78.5 Hyperlipidemia, unspecified; R42 Dizziness and giddiness; I73.00 Raynaud's syndrome without gangrene; K58.9 Irritable bowel syndrome, unspecified; I12.9 Hypertensive chronic kidney disease with stage 1 through stage 4 chronic kidney disease, or unspecified chronic kidney disease; E11.22 Type 2 diabetes mellitus with diabetic chronic kidney disease; N18.3 Chronic kidney disease, stage 3 (moderate); Z79.899 Other long term (current) drug therapy

== ENCOUNTER → 2019-07-18 | Outpatient (CLI) | payer MEDICARE, OTHER, MEDICAID ==
[~2019-07-18] MED LIST changes: +ADALAT10 MG PO; +COZAAR25 M1 PO; +HYDROCODONE-AC1 EAC1 PO; +MAGNESIUM400 M1 PO; +PEPCID40 MG PO
== END | disposition home or self-care (01) ==
LOC: RESCLI 12:22
DX: L24.9 Irritant contact dermatitis, unspecified cause (principal); E11.65 Type 2 diabetes mellitus with hyperglycemia; E03.9 Hypothyroidism, unspecified; E78.5 Hyperlipidemia, unspecified; I12.9 Hypertensive chronic kidney disease with stage 1 through stage 4 chronic kidney disease, or unspecified chronic kidney disease; E11.22 Type 2 diabetes mellitus with diabetic chronic kidney disease; N18.3 Chronic kidney disease, stage 3 (moderate); J44.9 Chronic obstructive pulmonary disease, unspecified; F32.9 Major depressive disorder, single episode, unspecified; K21.9 Gastro-esophageal reflux disease without esophagitis; Z79.899 Other long term (current) drug therapy

== ENCOUNTER 2019-07-19 16:10 | Inpatient (IN) | payer MEDICARE, OTHER ==
[~2019-07-19] VITALS: Ht 182.8 cm; Wt 102.7 kg
[~2019-07-19 16:10] MED LIST changes: -ADALAT10 MG PO; -COZAAR25 M1 PO; -HYDROCODONE-AC1 EAC1 PO; -MAGNESIUM400 M1 PO; -PEPCID40 MG PO
[2019-07-19 16:12] VITALS: BP 116/57
[2019-07-19 16:40] LABS: BASO % 0.5 % (0.0-1.0); EOS # 0.5 10*3/uL (0.0-0.4); EOS % 7.1 % (1.0-4.0); HEMATOCRIT 29.3 % (42.0-52.0); HEMOGLOBIN 9.4 g/dl (14.0-18.0); LYMPH # 1.9 10*3/uL (1.3-4.4); MEAN CELL VOLUME 88.3 fl (80.0-94.0); MEAN CORPUSCULAR HGB 28.3 pg (27.0-31.0); MEAN CORPUSCULAR HGB CONC 32.1 g/dl (33.0-37.0); MEAN PLATELET VOLUME 11.7 fl (9.6-12.3); MONO # 0.4 10*3/uL (0.1-1.0); MONO % 5.1 % (3.0-9.0); NEUT # 4.7 10*3/uL (2.3-7.9); NEUT % 61.8 % (47.0-73.0); PLATELET COUNT AUTOMATED 186 10*3/uL (130-400); RED BLOOD COUNT 3.32 10*6/uL (4.50-5.90); RED CELL DISTRI WIDTH 17.7 % (0-14.5); WHITE BLOOD COUNT 7.6 10*3/uL (4.8-10.8)
[2019-07-19 16:54] LABS: ACT PARTIAL THROMBO TIME 23.9 SECONDS (20.0-32.1); INTERNATIONAL NORM RATIO 1.5 (2.0-3.5)
[2019-07-19 16:56] LABS: ALKALINE PHOSPHATASE 176 U/L (45-117); BUN 39 mg/dl (7-24); CHLORIDE 107 mmol/L (98-107); CREATININE 1.46 mg/dL (0.70-1.30); POTASSIUM 4.6 mmol/L (3.5-5.1); SGOT/AST 13 IU/L (3-35); SGPT/ALT 32 U/L (12-78); SODIUM 137 mmol/L (136-145); TOTAL PROTEIN 6.1 gm/dL (6.4-8.2)
[2019-07-19 16:57] LABS: TROPONIN I < 0.015 ng/ml (<0.045)
[2019-07-19 17:19] VITALS: BP 124/58; BP 129/61
--- NOTE | 2019-07-19 17:21 | NUR ---
PT SLEEPING IN BED AWOKE EASILY WITH VERBAL STIMULI NO SIGN OF DISTRESS RESP EASY
--- NOTE | 2019-07-19 17:22 | NUR ---
BED IN LOWEST POSITION BED RAILS UP X 2 CALL LIGHT IN REACH
[2019-07-19 18:45] VITALS: BP 129/61
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
--- NOTE | 2019-07-19 19:02 | NUR ---
THE PATIENT WANTED TO STAND UP TO SEE IF HE STILL FELT DIZZY WHEN HE STOOD UP. I DID HELP HIM TO STAND WITH HIS WALKER IN FRONT OF HIM. HE VERBALIZED THAT HE DID FELL DIZZY WHEN HE STOOD. HE LAYED BACK DOWN ON THE BED. BILATERAL SIDE RAILS WERE RAISED FOR SAFETY. CALL BUTTON IS ON THE BED BESIDE THE PATIENT
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
--- NOTE | 2019-07-19 19:25 | NUR ---
THE PT CAN NOT PROVIDE A URINE SAMPLE AT THE PRESENT
[2019-07-19 20:41] VITALS: BP 129/61
[2019-07-19 21:00] VITALS: BP 133/60
--- NOTE | 2019-07-19 21:00 | NUR ---
A 69, admitted to , under the services of SHEY Claudio DO with a diagnosis of SYNCOPY,CHEST PAIN. Chief complaint is DIZZINESS, CP. Patient arrived via stretcher from ER. Monitor applied. Initial assessment completed. Vital signs taken and recorded. SHEY CLAUDIO DO notified of admission to the unit. Orders received. See assessment for past medical history, medications and allergies. Patient and/or family oriented to unit. [facility] visitation policy reviewed. Clothing/patient valuable form completed. ALEXEI NEVAREZ
--- NOTE | 2019-07-19 23:30 | NUR ---
ANSWERING SERVICE NOTIFIED OF CONSULT FOR DR. ALVARADO.
--- NOTE | 2019-07-19 23:30 | NUR ---
DR. BRYANT NOTIFIED OF WOUNDS TO FEET. WANTS TO WAIT FOR RECCOMENDATIONS FROM WOUND CARE. PATIENT NOT WANTING SECOND PHOTO TAKEN . STATING HE WNTS TO TO BE LEFT ALONE SO HE CAN SLEEP
[2019-07-20] VITALS: BP 134/71
[2019-07-20 01:36] LABS: BILIRUBIN NEGATIVE (NEGATIVE); BLOOD NEGATIVE (NEGATIVE); CLARITY CLEAR (CLEAR); COLOR YELLOW (YELLOW); GLUCOSE 3+ (NEGATIVE); KETONE NEGATIVE (NEGATIVE); LEUKO ESTERASE NEGATIVE (NEGATIVE); NITRITE NEGATIVE (NEGATIVE); UROBILINOGEN 0.2 E.U./dl (0.2-1.0)
[2019-07-20 01:45] LABS: URINE AMPHETAMINES < 1000 (1000ng/ml); URINE BARBITURATES < 200 (200ng/ml); URINE BENZODIAZEPINES < 200 (200ng/ml); URINE CANNABINOIDS (THC) < 50 (50ng/ml); URINE COCAINE > 300 (300ng/ml); URINE METHADONE < 300 (300ng/ml); URINE OPIATES < 300 (300ng/ml)
[2019-07-20 01:46] LABS: URINE PHENCYCLIDINE < 25 (25ng/ml)
[2019-07-20 06:18] LABS: BASO % 0.6 % (0.0-1.0); EOS # 0.5 10*3/uL (0.0-0.4); EOS % 7.4 % (1.0-4.0); HEMATOCRIT 32.3 % (42.0-52.0); HEMOGLOBIN 10.2 g/dl (14.0-18.0); LYMPH # 1.8 10*3/uL (1.3-4.4); LYMPH % 29.3 % (27.0-41.0); MEAN CORPUSCULAR HGB 28.1 pg (27.0-31.0); MEAN CORPUSCULAR HGB CONC 31.6 g/dl (33.0-37.0); MEAN PLATELET VOLUME 11.5 fl (9.6-12.3); MONO # 0.4 10*3/uL (0.1-1.0); MONO % 5.9 % (3.0-9.0); NEUT # 3.5 10*3/uL (2.3-7.9); NEUT % 56.5 % (47.0-73.0); PLATELET COUNT AUTOMATED 181 10*3/uL (130-400); RED BLOOD COUNT 3.63 10*6/uL (4.50-5.90); RED CELL DISTRI WIDTH 17.8 % (0-14.5); WHITE BLOOD COUNT 6.2 10*3/uL (4.8-10.8)
[2019-07-20 06:48] LABS: ALBUMIN 3.3 gm/dl (3.1-4.5); BUN 32 mg/dl (7-24); CHLORIDE 111 mmol/L (98-107); POTASSIUM 3.8 mmol/L (3.5-5.1); SGOT/AST 13 IU/L (3-35); SGPT/ALT 32 U/L (12-78); SODIUM 142 mmol/L (136-145)
[2019-07-20 06:54] LABS: ALKALINE PHOSPHATASE 187 U/L (45-117); CHOLESTEROL 178 mg/dL (<200); CREATININE 1.24 mg/dL (0.70-1.30); HDL CHOLESTEROL 47 mg/dl (40-60); LDL CHOLESTEROL 58 mg/dL (9-159); PHOSPHOROUS 3.5 mg/dL (2.5-4.9); TOTAL PROTEIN 6.6 gm/dL (6.4-8.2); TRIGLYCERIDES 365 mg/dl (<150); VLDL CHOLESTEROL 73 mg/dL (6-40)
--- NOTE | 2019-07-20 07:24 | NUR ---
DEBORAH SANTACRUZ [id number] Please refer to the physician's history and physical for past medical history, comorbid conditions, and allergies. Diagnosis: DIZZINESS,ACUTE ON CHRONIC RENAL FAILURE Isauro Score: 17,AT RISK WOUND DESCRIPTIONS: Wound Number: 1 Location of the wound: left foot medial Thickness: Full Size: 2.0cm x 2.8cm x <0.1cm Tunneling: none Undermining: none Sinus Tract: none Presence of Exudate: none Amount: None Color: Yellow, red Odor: none Periwound Skin Appearance: Normal Wound edges: approximated Pain (associated with wound): none at time of assessment How does patient state this happened? pt stated that he no longer follows with podiatry and went to be seen in the wound care center yesterday but they told him he didnt need anything at this time. Wound Number: 2 Location of the wound: right 2nd toe Thickness: Partial Size: 0.5cm x 0.5cm x 0.1cm Tunneling: none Undermining: none Sinus Tract: none Presence of Exudate: none Amount: None Color: Red Odor: None Periwound Skin Appearance: Normal Wound edges: approximated Pain (associated with wound): none at time of assessment How does patient state this happened? pt stated that he no longer follows with podiatry and went to be seen in the wound care center yesterday but they told him he didnt need anything at this time. Wound Number: 3 Location of the wound: proximal left foot Thickness: Partial Size: 0.3cm x 2.5cm x 0.1cm Tunneling: none Undermining: none Sinus Tract: none Presence of Exudate: none Amount: None Color: Red Odor: None Periwound Skin Appearance: Normal Wound edges: approximated Pain (associated with wound): none at time of assessment How does patient state this happened? pt stated that he no longer follows with podiatry and went to be seen in the wound care center yesterday but they told him he didnt need anything at this time. Wound Number: 4 Location of the wound: distal left foot Thickness: Partial Size: 0.6cm x 0.6cm x 0.1cm Tunneling: none Undermining: none Sinus Tract: none Presence of Exudate: none Amount: None Color: Red Odor: None Periwound Skin Appearance: Normal Wound edges: approximated Pain (associated with wound): none at time of assessment How does patient state this happened? pt stated that he no longer follows with podiatry and went to be seen in the wound care center yesterday but they told him he didnt need anything at this time. Surface the patient is resting on: Isoflex SKIN PREVENTION RECOMMENDATION: 1. Pressure redistribution support surface as appropriate 2. Elevate heels 3. Remove boots/TEDS every shift and reapply 4. Head of bed 30 degrees as tolerated 5. Assess nutrition and hydration 6. Manage moisture 7. Avoid the use of containment devices while in bed 8. Use absorptive products on surfaces limit layers of linens on bed 9. Turn and reposition every 1-2 hours in bed and every 1 hour in chair as tolerated 10. Weight shifts every 15 minutes while up in chair 11. Offloading with pillows or device to keep heels elevated off bed 12. Monitor skin at least every shift 13. Inspect under medical devices twice a day WOUND TREATMENT RECOMMENDATIONS: Cleanse left foot proximal medial and distal with nss and apply sureprep around the wound therahoney to wound bed and cover with dsd daily and prn for soiling. Partial thickness guidelines: Cleanse right 2nd toe with nss and apply sureprep then cover with bandaid. Heel raiser pro boots to bilateral heels while in bed. Patient states will follow up in the wound care center with Geraldine LIVE.
[2019-07-20 08:00] VITALS: BP 134/78
--- NOTE | 2019-07-20 09:00 | NUR ---
Sales Program Coordinator in to talk to patient. Patient states lives at home with alone. There are no steps in the home. Physician: rosalinda ames [facility] Home health services: aid services -thu and thursday Patient's level of ADLs: INDEPENDENT Patient has working utilities: all working DME: walker Follow-up physician's appointment after d/c: will be made by hospitalist nurse director upon discharge Does patient want to access PORTAL?: no Discharge plan discuss with patient, he lives at home alone, uses a walker for ambulation. he has aid services 3 days a week for 4 hours each day, he has 14 meals delivered from the insurance [employer] every 2 weeks, patient states he will be returning home when medically stable and denies any home needs. STEVAN CASPER
--- NOTE | 2019-07-20 10:29 | NUR ---
Dr. Sánchez notified of wound care recommendations.
--- NOTE | 2019-07-20 11:00 | NUR ---
INFORMED CONSENT OBTAINED FOR LEXISCAN NUCLEAR STRESS TEST WITH DR. ALVARADO. RESTING EKG NSR WITH A RESTING HR OF 75 AND BP OF 132/68. LUNGS CLEAR WITH SPO2 OF 99% ON ROOM AIR. PT COMPLETED A 1:00 LEXISCAN PROTOCOL RECEIVING LEXISCAN 0.4 MG IV OVER 10 SECONDS. HAD NO CHEST PAIN OR ANY EKG CHANGES. HAD C/O NAUSEA THAT WAS RELIEVED IN RECOVERY. HAD A PEAK HR OF 93 WITH BP OF 124/70. LAST RECOVERY HR OF 89 WITH BP OF 132/70. AWAITING SCANNING IN STABLE CONDITION.
[2019-07-20 12:00] VITALS: BP 138/66
--- NOTE | 2019-07-20 13:52 | NUR ---
PHYSICAL THERAPY Physical therapy evaluation complete, 4E. Full evaluation/details to follow. Low complexity PT evaluation (01126) per chart review and evaluation. PT to progress with gait, transfers, LE strength, balance and safety per POC. Recommend home health PT/Nursing services at discharge. Thank you. Zoila Edgar,PT,DPT.
--- NOTE | 2019-07-20 14:36 | NUR ---
NOTIFIED DR. PLASCENCIA THAT PATIENTS MED REC IS UP TO DATE FOR MEDS TO BE ORDERED.
[2019-07-20 16:00] VITALS: BP 136/61
[2019-07-20 20:00] VITALS: BP 160/67
--- NOTE | 2019-07-20 21:33 | NUR ---
NORCO GIVEN FOR C/O FOOT PAIN RATED 6/10. CALL LIGHT IN REACH. WILL MONITOR.
--- NOTE | 2019-07-20 22:19 | NUR ---
SLEEPING, NO SXS OF DISTRESS. NORCO SEEMS TO BE EFFECTIVE FOR COMPLAINTS. CALL LIGHT IN REACH.
[2019-07-21] VITALS: BP 122/69
--- NOTE | 2019-07-21 02:59 | NUR ---
24HR CHART CHECK COMPLETED
--- NOTE | 2019-07-21 04:00 | NUR ---
PT SLEEPING IN BED. RESP-EASY AND REGULAR. CALL LIGHT IN REACH.
--- NOTE | 2019-07-21 05:25 | NUR ---
PT C/O RIGHT FOOT PAIN, RATES PAIN 10 ON PAIN SCALE 0-10. MEDICATED WITH NORCO PO PER PRN ORDER, SEE EMAR. [id number] SEE EMAR. TOLERATED ROUTINE MED WITH NO PROBLEM. CALL LIGHT IN REACH.
--- NOTE | 2019-07-21 09:00 | NUR ---
case management visits with patient, he will be returning home when able and denies any home needs
--- NOTE | 2019-07-21 09:01 | NUR ---
PHYSICAL THERAPY Patient is eating breakfast at this time. Will check back later. LAURA HINOJOSA LIFE ENRICHMENT ASSISTANT
--- NOTE | 2019-07-21 10:20 | NUR ---
PHYSICAL THERAPY Patient presented to therapy in supine with bed alarm NOT activated and head of bed elevated. Patient reports pain at base of toes when he walks and pain down legs at times. Patient gives informed consent for treatment. Patient was identified by name and . Patient performed supine to sitting at EOB with SBA. Patient sat on EOB unassisted. Patient sit to stand from EOB with SBA. Patient performed ambulation with Wh Walker and Close Supervision for 220' x 1 with no LOB or SOB. PATIENT DID HAVE PAIN IN THE BASE OF TOES WITH AMBUALTION. Patient then sat on EOB and performed seated bilateral LE ther ex x 15 reps each in all planes of movement for strengthening the LEs in order to improve patient's functional mobility. Patient was left in sitting at EOB with call light within reach and tray table near patient. Patient ambulates too and from restroom on his own throughtout the day. Patient was 1:1 with this TUTORIAL LABORATORY SUPERVISOR for 24 minutes total. LAURA HINOJOSA TUTORIAL LABORATORY SUPERVISOR
[2019-07-21] MEDS ORDERED: HYDROCODONE-AC1 EAC1 PO (10:58)
--- NOTE | 2019-07-21 12:00 | NUR ---
Discharge instructions reviewed with patient/family. Patient receptive and verbalizes understanding. Follow-up care arranged. Written instructions given to patient/family. HEPLOCK REMOVED 2X2 APPLIED. MONITOR REMOVED. PT ASSISTED VIA WHEELCHAIR WITH VISITOR AT HIS SIDE. RADHA BRONSON
--- NOTE | 2019-07-21 15:02 | NUR ---
SAMRA received call from Brenda([phone])- Rep at [facility]. She stated she needed clinicals to resume care for the patient at home. She provided fax number [phone]. SAMRA provided information to Monisha in Case Management. -SAMRA Bailey
--- NOTE | 2019-07-22 07:40 | NUR ---
PHYSICAL THERAPY CO-SIGN I approve of the Physical Therapy notes written above. YEHUDA HERRERA PT,DPT
== END 2019-07-21 12:00 | disposition home or self-care (01) | DRG 205 ==
LOC: ED 16:10 → EDHOLD 19:59 → 4E 19:59
PROVIDERS: Emergency Medicine; Internal Medicine; Nurse Practitioner; ADMIT Internal Medicine
PROC: 4A02XM4 Measurement of Cardiac Total Activity, External Approach (ICD-10-PCS; principal; 2019-07-20)
PROC: 3E073KZ Introduction of Other Diagnostic Substance into Coronary Artery, Percutaneous Approach (ICD-10-PCS; principal; 2019-07-20)
DX: M94.0 Chondrocostal junction syndrome [Tietze] (principal); N17.0 Acute kidney failure with tubular necrosis; I50.32 Chronic diastolic (congestive) heart failure; D68.59 Other primary thrombophilia; E44.0 Moderate protein-calorie malnutrition; I13.0 Hypertensive heart and chronic kidney disease with heart failure and stage 1 through stage 4 chronic kidney disease, or unspecified chronic kidney disease; M86.671 Other chronic osteomyelitis, right ankle and foot; I47.1 Supraventricular tachycardia; N18.3 Chronic kidney disease, stage 3 (moderate); H65.491 Other chronic nonsuppurative otitis media, right ear; F17.210 Nicotine dependence, cigarettes, uncomplicated; E87.8 Other disorders of electrolyte and fluid balance, not elsewhere classified; Z96.641 Presence of right artificial hip joint; N40.0 Benign prostatic hyperplasia without lower urinary tract symptoms; M43.10 Spondylolisthesis, site unspecified; I25.10 Atherosclerotic heart disease of native coronary artery without angina pectoris; M50.30 Other cervical disc degeneration, unspecified cervical region; D64.9 Anemia, unspecified; M54.5 Low back pain; E11.42 Type 2 diabetes mellitus with diabetic polyneuropathy; I48.91 Unspecified atrial fibrillation; J44.9 Chronic obstructive pulmonary disease, unspecified; E11.65 Type 2 diabetes mellitus with hyperglycemia; E11.22 Type 2 diabetes mellitus with diabetic chronic kidney disease; E55.9 Vitamin D deficiency, unspecified; F14.10 Cocaine abuse, uncomplicated; F41.1 Generalized anxiety disorder; M10.9 Gout, unspecified; E03.9 Hypothyroidism, unspecified; K44.9 Diaphragmatic hernia without obstruction or gangrene; Z88.0 Allergy status to penicillin; Z88.1 Allergy status to other antibiotic agents; Z88.8 Allergy status to other drugs, medicaments and biological substances; Z95.5 Presence of coronary angioplasty implant and graft; Z90.49 Acquired absence of other specified parts of digestive tract; Z82.3 Family history of stroke; Z89.422 Acquired absence of other left toe(s); Z80.0 Family history of malignant neoplasm of digestive organs; Z83.3 Family history of diabetes mellitus; Z79.84 Long term (current) use of oral hypoglycemic drugs; Z79.899 Other long term (current) drug therapy; Z79.82 Long term (current) use of aspirin; Z71.6 Tobacco abuse counseling; Z68.30 Body mass index [BMI] 30.0-30.9, adult; I25.2 Old myocardial infarction

== ENCOUNTER 2019-07-29 20:53 | Emergency (ER) | payer MEDICARE, OTHER ==
[~2019-07-29] VITALS: Ht 170 cm; Wt 72.6 kg
--- NOTE | ~2019-07-29 | EKG ---
[place], [place] ELECTROCARDIOGRAM REPORT NAME: DEBORAH SANTACRUZ UNIT #: [id number] ROOM: DOCTOR: EPIPHANY DRAFT REPORT BIRTHDATE: [birth year] [facility] Test Date: 2019-07-29 Test Time: 23:31:36 Pat Name: DEBORAH SANTACRUZ Department: ED Room: 13 Gender: M Certified Medical Coder: Nicolasa Garcias : 1950 Requested By: SACHA SAENZ Order Number: [id number] Reading MD: Janessa Metz MD Measurements Intervals [place] Rate: 75 P: -8 WV: 205 QRS: 13 QRSD: 85 T: 55 QT: 404 QTc: 452 Interpretive Statements Sinus rhythm Inferior infarct, old Consider anterior infarct Baseline wander in lead(s) V5 Compared to ECG 07/19/2019 21:15:20 No significant changes Electronically Signed On 08-01-2019 17:57:43 PDT by Janessa Metz MD CM:EKGRPT:ELECTROCARDIOGRAM REPORT [id number] SACHA SAENZ MD EPIPHANY DRAFT REPORT SACHA SAENZ MD
--- NOTE | ~2019-07-29 | EKG ---
[place], [place] ELECTROCARDIOGRAM REPORT NAME: DEBORAH SANTACRUZ UNIT #: [id number] ROOM: DOCTOR: EPIPHANY DRAFT REPORT BIRTHDATE: [birth year] [facility] Test Date: 2019-07-29 Test Time: 20:58:28 Pat Name: DEBORAH SANTACRUZ Department: Room: Gender: Slag Dumper: : 1950 Requested By: SACHA SAENZ Order Number: [id number] Reading MD: Janessa Metz MD Measurements Intervals [place] Rate: 70 P: 14 NC: 193 QRS: 33 QRSD: 82 T: 53 QT: 396 QTc: 428 Interpretive Statements Sinus rhythm Low voltage, precordial leads Anteroseptal infarct, old Compared to ECG 07/19/2019 21:15:20 Low QRS voltage now present Myocardial infarct finding still present Electronically Signed On 08-01-2019 17:57:13 PDT by Janessa Metz MD CM:EKGRPT:ELECTROCARDIOGRAM REPORT [id number] SACHA SAENZ MD EPIPHANY DRAFT REPORT SACHA SAENZ MD
[~2019-07-29 20:53] MED LIST changes: +HYDROCODONE-AC1 EAC1 PO
[2019-07-29 21:34] LABS: BASO # 0.1 10*3/uL (0.0-0.1); BASO % 0.6 % (0.0-1.0); EOS # 0.5 10*3/uL (0.0-0.4); EOS % 6.1 % (1.0-4.0); HEMATOCRIT 29.6 % (42.0-52.0); HEMOGLOBIN 9.2 g/dl (14.0-18.0); LYMPH # 2.3 10*3/uL (1.3-4.4); LYMPH % 29.2 % (27.0-41.0); MEAN CELL VOLUME 91.1 fl (80.0-94.0); MEAN CORPUSCULAR HGB 28.3 pg (27.0-31.0); MEAN CORPUSCULAR HGB CONC 31.1 g/dl (33.0-37.0); MEAN PLATELET VOLUME 11.1 fl (9.6-12.3); MONO # 0.4 10*3/uL (0.1-1.0); MONO % 5.2 % (3.0-9.0); NEUT # 4.6 10*3/uL (2.3-7.9); NEUT % 58.3 % (47.0-73.0); PLATELET COUNT AUTOMATED 178 10*3/uL (130-400); RED BLOOD COUNT 3.25 10*6/uL (4.50-5.90); RED CELL DISTRI WIDTH 17.1 % (0-14.5); WHITE BLOOD COUNT 7.9 10*3/uL (4.8-10.8)
[2019-07-29 21:50] LABS: ACT PARTIAL THROMBO TIME 33.1 SECONDS (20.0-32.1); ALBUMIN 3.1 gm/dl (3.1-4.5); ALKALINE PHOSPHATASE 169 U/L (45-117); BUN 24 mg/dl (7-24); CHLORIDE 105 mmol/L (98-107); CREATININE 1.25 mg/dL (0.70-1.30); INTERNATIONAL NORM RATIO 1.3 (2.0-3.5); POTASSIUM 4.8 mmol/L (3.5-5.1); SGOT/AST 9 IU/L (3-35); SGPT/ALT 24 U/L (12-78); SODIUM 136 mmol/L (136-145); TOTAL PROTEIN 6.2 gm/dL (6.4-8.2)
[2019-07-29 21:56] LABS: TROPONIN I < 0.015 ng/ml (<0.045)
[2019-07-29 23:40] VITALS: BP 142/68
[2019-07-30] MEDS ORDERED: ZITHROMAX250 MG PO (00:47)
== END 2019-07-30 01:05 | disposition home or self-care (01) ==
LOC: ED 20:53
PROVIDERS: Emergency Medicine Emergency Medical Services
DX: J06.9 Acute upper respiratory infection, unspecified (principal); I25.10 Atherosclerotic heart disease of native coronary artery without angina pectoris; K21.9 Gastro-esophageal reflux disease without esophagitis; E78.5 Hyperlipidemia, unspecified; E03.9 Hypothyroidism, unspecified; M86.9 Osteomyelitis, unspecified; M10.9 Gout, unspecified; I13.0 Hypertensive heart and chronic kidney disease with heart failure and stage 1 through stage 4 chronic kidney disease, or unspecified chronic kidney disease; E11.22 Type 2 diabetes mellitus with diabetic chronic kidney disease; N18.3 Chronic kidney disease, stage 3 (moderate); I50.32 Chronic diastolic (congestive) heart failure; E11.40 Type 2 diabetes mellitus with diabetic neuropathy, unspecified; Z88.0 Allergy status to penicillin; Z88.1 Allergy status to other antibiotic agents; Z79.899 Other long term (current) drug therapy; Z86.73 Personal history of transient ischemic attack (TIA), and cerebral infarction without residual deficits; Z79.4 Long term (current) use of insulin

== ENCOUNTER 2019-08-01 00:08 | Inpatient (IN) | payer MEDICARE, OTHER ==
[~2019-08-01] VITALS: Ht 182.9 cm; Wt 103.1 kg
[2019-08-01 00:14] VITALS: BP 132/64
[2019-08-01 00:53] LABS: BASO % 0.5 % (0.0-1.0); EOS # 0.5 10*3/uL (0.0-0.4); EOS % 6.3 % (1.0-4.0); HEMATOCRIT 30.2 % (42.0-52.0); HEMOGLOBIN 9.5 g/dl (14.0-18.0); INTERNATIONAL NORM RATIO 1.3 (2.0-3.5); LYMPH # 3.2 10*3/uL (1.3-4.4); LYMPH % 42.6 % (27.0-41.0); MEAN CELL VOLUME 91.2 fl (80.0-94.0); MEAN CORPUSCULAR HGB 28.7 pg (27.0-31.0); MEAN CORPUSCULAR HGB CONC 31.5 g/dl (33.0-37.0); MEAN PLATELET VOLUME 11.3 fl (9.6-12.3); MONO # 0.3 10*3/uL (0.1-1.0); MONO % 4.3 % (3.0-9.0); NEUT # 3.4 10*3/uL (2.3-7.9); NEUT % 45.1 % (47.0-73.0); PLATELET COUNT AUTOMATED 179 10*3/uL (130-400); RED BLOOD COUNT 3.31 10*6/uL (4.50-5.90); WHITE BLOOD COUNT 7.5 10*3/uL (4.8-10.8)
[2019-08-01 01:02] LABS: ALBUMIN 3.1 gm/dl (3.1-4.5); ALKALINE PHOSPHATASE 162 U/L (45-117); BUN 24 mg/dl (7-24); CHLORIDE 107 mmol/L (98-107); CREATININE 1.72 mg/dL (0.70-1.30); POTASSIUM 3.7 mmol/L (3.5-5.1); SGOT/AST 14 IU/L (3-35); SGPT/ALT 23 U/L (12-78); SODIUM 138 mmol/L (136-145); TOTAL PROTEIN 6.1 gm/dL (6.4-8.2)
[2019-08-01 01:03] LABS: TROPONIN I < 0.015 ng/ml (<0.045)
[2019-08-01] MEDS ORDERED: LANTUS SOL100 UNIT/1 SQ (04:43)
[2019-08-01] MEDS ORDERED: ADALAT10 MG PO (04:46)
[2019-08-01 04:50] VITALS: BP 156/74
--- NOTE | 2019-08-01 04:50 | NUR ---
A 69, admitted to , under the services of ZULMA Alberto DO with a diagnosis of DEBRA, HYPERGLYCEMIA, CHF. Chief complaint is SHORTNESS OF BREATH. Patient arrived via bed from ER. Monitor applied. Initial assessment completed. Vital signs taken and recorded. ZULMA ALBERTO DO notified of admission to the unit. Orders received. See assessment for past medical history, medications and allergies. Patient and/or family oriented to unit. [facility] visitation policy reviewed. Clothing/patient valuable form completed. CARLOS MANUEL THAKKAR
--- NOTE | 2019-08-01 05:19 | NUR ---
PATIENT HAS NO MED LIST WITH HIM. STATES HE GOES TO [facility] FOR HIS PHARMACY. UNABLE TO VERIFY MEDS AT THIS TIME
--- NOTE | 2019-08-01 05:44 | NUR ---
DR. PERRY MADE AWARE OF PATIENTS SKIN IMPAIRMENTS
--- NOTE | 2019-08-01 05:57 | NUR ---
EXPLAINED TO PATIENT THAT HE WAS A FALL RISK AND THAT TO MAKE SURE HE IS SAFE, HIS BED ALARM GETS PUT ON. PATIENT REFUSING BED ALARM.
--- NOTE | 2019-08-01 05:59 | NUR ---
ORTHOS PERFORMED. PATIENT ASYMPTOMATIC. ORTHOS NEGATIVE
--- NOTE | 2019-08-01 06:42 | NUR ---
DEBORAH SANTACRUZ [id number] Please refer to the physician's history and physical for past medical history, comorbid conditions, and allergies. Diagnosis: DEBRA CHF HYPERGLYCEMIA Isauro Score: 22,LOW OR NO RISK WOUND DESCRIPTIONS: Wound Number: 1 Location of the wound: left proximal foot Type of wound: unstageable Thickness: Full Size: 0.8cm x 2.0cm x <0.1cm Tunneling: none Undermining: none Sinus Tract: none Presence of Exudate: none Amount: None Color: Brown, yellow Odor: None Periwound Skin Appearance: Normal Wound edges: approximated Pain (associated with wound): none at time of assessment How does patient state this happened? he stated he has an appointment in the wound care center tomorrow and he will make his follow up appointment when he is discharged Wound Number: 2 Location of the wound: left lateral foot Type of wound: unstageable Thickness: Full Size: 0.5cm x 0.9cm x <0.1cm Tunneling: none Undermining: none Sinus Tract: none Presence of Exudate: none Amount: None Color: Brown, yellow Odor: None Periwound Skin Appearance: Normal Wound edges: approximated Pain (associated with wound): none at time of assessment How does patient state this happened? he stated he has an appointment in the wound care center tomorrow and he will make his follow up appointment when he is discharged Wound Number: 3 Location of the wound: right 2nd toe Type of wound: unstageable Thickness: Full Size: 0.2cm x 0.5cm x <0.1cm Tunneling: none Undermining: none Sinus Tract: none Presence of Exudate: Amount: None Color: Black Odor: None Periwound Skin Appearance: Normal Wound edges: approximated Pain (associated with wound): none How does patient state this happened? he stated he has an appointment in the wound care center tomorrow and he will make his follow up appointment when he is discharged Patient has red raised areas noted to upper back and chest patients states areas are very itchy at time of assessment. Intact scabs noted to left lower extremity no drainage or redness at time of assessment. Pt stated these areas just started when he was in the nursing facility. Surface the patient is resting on: Isoflex SKIN PREVENTION RECOMMENDATION: 1. Pressure redistribution support surface as appropriate 2. Elevate heels 3. Remove boots/TEDS every shift and reapply 4. Head of bed 30 degrees as tolerated 5. Assess nutrition and hydration 6. Manage moisture 7. Avoid the use of containment devices while in bed 8. Use absorptive products on surfaces limit layers of linens on bed 9. Turn and reposition every 1-2 hours in bed and every 1 hour in chair as tolerated 10. Weight shifts every 15 minutes while up in chair 11. Offloading with pillows or device to keep heels elevated off bed 12. Monitor skin at least every shift 13. Inspect under medical devices twice a day WOUND TREATMENT RECOMMENDATIONS: Full thickness guidelines: Cleanse left proximal foot, left lateral foot and right 2nd toe with nss and apply sureprep around the wound thereahoney to wound bed and cover with optifoam gentle or bandaid daily and prn for soiling. Heel rasier pro boots to bilateral feet while in bed. Cleanse back and upper chest with soap and water pat area dry then apply hydrocortisone BID.
[2019-08-01 08:26] VITALS: BP 140/82
--- NOTE | 2019-08-01 09:35 | NUR ---
PHYSICAL THERAPY Nursing screen received and chart reviewed. Physical therapy referral received. Thank you. Zoila Edgar,PT,DPT
--- NOTE | 2019-08-01 10:00 | NUR ---
Dr. Brumfield notified of wound care recommendations.
[2019-08-01 12:00] VITALS: BP 171/80
--- NOTE | 2019-08-01 15:18 | NUR ---
PHYSICAL THERAPY Physical therapy evaluation complete, 5E. Full evaluation/details to follow. Low complexity PT evaluation (16227) per chart review and evaluation. PT to progress transfers, gait, and balance per POC. Recommend return home with home health services at discharge. Thank you. Zoila Edgar,PT,DPT
--- NOTE | 2019-08-01 15:18 | NUR ---
Occupational therapy orders received and chart reviewed. OT eval and POC completed in full on floor five. Patient precautions include fall risk, IV lines, WW use, and impulsivity. Per OT eval, OT recommends home with HH SN, OT, and PT. Patient would benefit from OT treatment to maximize independence and safety with ADLs and mobility/transfers. Patient complexity is low, [id number]. Thank you for the referral. Deidra Scott, OTR/L
[2019-08-01 16:00] VITALS: BP 155/69
[2019-08-01 20:00] VITALS: BP 155/73
--- NOTE | 2019-08-01 22:52 | NUR ---
24 HR chart check completed.
[2019-08-02] VITALS: BP 152/77
--- NOTE | 2019-08-02 03:35 | NUR ---
SPOKE WITH DR. GREGORY ABOUT PATIENT RASH. HYDROCORTISONE CREAM ORDERED.
--- NOTE | 2019-08-02 04:05 | NUR ---
SLEEPING NO ACUTE DISTRESS NOTED. RESP EASY AND REG.
[2019-08-02 07:13] LABS: BASO % 0.4 % (0.0-1.0); EOS # 0.3 10*3/uL (0.0-0.4); EOS % 4.1 % (1.0-4.0); HEMATOCRIT 28.1 % (42.0-52.0); LYMPH # 1.9 10*3/uL (1.3-4.4); LYMPH % 27.4 % (27.0-41.0); MEAN CELL VOLUME 89.8 fl (80.0-94.0); MEAN CORPUSCULAR HGB 28.8 pg (27.0-31.0); MEAN PLATELET VOLUME 11.4 fl (9.6-12.3); MONO # 0.4 10*3/uL (0.1-1.0); MONO % 5.5 % (3.0-9.0); NEUT # 4.2 10*3/uL (2.3-7.9); PLATELET COUNT AUTOMATED 182 10*3/uL (130-400); RED BLOOD COUNT 3.13 10*6/uL (4.50-5.90); RED CELL DISTRI WIDTH 17.1 % (0-14.5); WHITE BLOOD COUNT 6.8 10*3/uL (4.8-10.8)
[2019-08-02 07:29] LABS: BUN 23 mg/dl (7-24); CHLORIDE 109 mmol/L (98-107); CREATININE 1.14 mg/dL (0.70-1.30); PHOSPHOROUS 3.1 mg/dL (2.5-4.9); POTASSIUM 3.5 mmol/L (3.5-5.1); SODIUM 140 mmol/L (136-145)
[2019-08-02 08:00] VITALS: BP 173/96
--- NOTE | 2019-08-02 09:31 | NUR ---
PHYSICAL THERAPY PT SUPINE IN BED UPON ARRIVAL WITH IV. PT IDENTIFIED BT NAME AND . PT AGREED TO ALL PT TREATMENT THIS A.M. PT PERFORMED BED MOBILITY (I). PT PERFORMES STS FROM EOB (I). PT GAIT TRAINED 220FT X1 WITH FWW AND SURGICAL FIRST ASSISTANT PULLING IV PULL. PT HAD NO LOB. PT PERFORMED STS TO EOB (I). PT IN BED WITH CALL LIGHT IN TRAY WITH IN ARMS REACH AND REPORTS NO OTHER NEEDS AT THIS TIME. PT STATES "I AM GOING HOME TODAY." PT SEEN 1:1 FOR 14 MINS. ALLEN REED PTA
--- NOTE | 2019-08-02 11:55 | NUR ---
Discharge instructions reviewed with patient/family. Patient receptive and verbalizes understanding. Follow-up care arranged. Written instructions given to patient/family. LYLY MELENDREZ
--- NOTE | 2019-08-02 12:06 | NUR ---
Senior Software Manager in to talk to patient. Patient states lives at HOME with ALONE. There are NO steps in the home. [facility]ician[facility] Home [facility]: [facility], STATES NURSES 2 DAYS A WEEK AND AIDS 3 DAYS A WEEK. SOMEONE TO CLEAN HOUSE. Patient's level of ADLs: MINIMAL ASSIST Patient has working utilities: YES DME: WALKER Follow-up physician's appointment after d/c: WILL BE MADE BY HOSPITALIST NURSE DIRECTOR Does patient want to access PORTAL?: NO Discharge plan PT LIVES AT HOME AND STATES HE HAS [facility] NURSES AND AIDS. STATES I HAVE ALL THE SERVICES I NEED AT THIS TIME. USES A WALKER TO GET AROUND. WILL CONTINUE TO FOLLOW. PT STATES HE WILL HAVE A RIDE HOME ON DISCHARGE.. NICOLE RENTERIA
--- NOTE | 2019-08-03 07:56 | NUR ---
PHYSICAL THERAPY CO-SIGN I approve of the Physical Therapy notes written above. YEHUDA HERRERA PT,DPT
== END 2019-08-02 12:33 | disposition home or self-care (01) | DRG 637 ==
LOC: ED 00:08 → EDHOLD 04:05 → 5E 04:05
PROVIDERS: Emergency Medicine; Internal Medicine; ADMIT Internal Medicine
DX: E11.65 Type 2 diabetes mellitus with hyperglycemia (principal); N17.0 Acute kidney failure with tubular necrosis; I50.32 Chronic diastolic (congestive) heart failure; M86.671 Other chronic osteomyelitis, right ankle and foot; I25.10 Atherosclerotic heart disease of native coronary artery without angina pectoris; E03.9 Hypothyroidism, unspecified; E11.22 Type 2 diabetes mellitus with diabetic chronic kidney disease; N40.0 Benign prostatic hyperplasia without lower urinary tract symptoms; F41.1 Generalized anxiety disorder; K21.9 Gastro-esophageal reflux disease without esophagitis; K44.9 Diaphragmatic hernia without obstruction or gangrene; M10.9 Gout, unspecified; E83.42 Hypomagnesemia; N18.3 Chronic kidney disease, stage 3 (moderate); F32.9 Major depressive disorder, single episode, unspecified; Z96.641 Presence of right artificial hip joint; E11.40 Type 2 diabetes mellitus with diabetic neuropathy, unspecified; E78.5 Hyperlipidemia, unspecified; M19.90 Unspecified osteoarthritis, unspecified site; E11.69 Type 2 diabetes mellitus with other specified complication; F17.210 Nicotine dependence, cigarettes, uncomplicated; Z90.49 Acquired absence of other specified parts of digestive tract; Z95.5 Presence of coronary angioplasty implant and graft; Z89.432 Acquired absence of left foot; Z86.73 Personal history of transient ischemic attack (TIA), and cerebral infarction without residual deficits; Z83.3 Family history of diabetes mellitus; Z82.49 Family history of ischemic heart disease and other diseases of the circulatory system; Z88.1 Allergy status to other antibiotic agents; Z88.8 Allergy status to other drugs, medicaments and biological substances; Z82.3 Family history of stroke; Z79.84 Long term (current) use of oral hypoglycemic drugs; Z79.899 Other long term (current) drug therapy

== ENCOUNTER 2019-08-05 14:38 | Inpatient (IN) | payer MEDICARE, OTHER, MEDICAID ==
[~2019-08-05] VITALS: Ht 182.8 cm; Wt 103.0 kg
[~2019-08-05 14:38] MED LIST changes: -COZAAR25 M1 PO; -MAGNESIUM400 M1 PO; -PEPCID40 MG PO
[2019-08-05 14:46] VITALS: BP 188/81
--- NOTE | 2019-08-05 14:51 | NUR ---
PT REFUSES IV START AT THIS TIME.
[2019-08-05 15:52] LABS: BASO # 0.1 10*3/uL (0.0-0.1); BASO % 0.6 % (0.0-1.0); EOS # 0.5 10*3/uL (0.0-0.4); EOS % 5.8 % (1.0-4.0); HEMATOCRIT 30.4 % (42.0-52.0); HEMOGLOBIN 9.6 g/dl (14.0-18.0); LYMPH # 2.5 10*3/uL (1.3-4.4); MEAN CELL VOLUME 91.3 fl (80.0-94.0); MEAN CORPUSCULAR HGB 28.8 pg (27.0-31.0); MEAN CORPUSCULAR HGB CONC 31.6 g/dl (33.0-37.0); MONO # 0.5 10*3/uL (0.1-1.0); MONO % 5.5 % (3.0-9.0); NEUT # 5.3 10*3/uL (2.3-7.9); NEUT % 59.3 % (47.0-73.0); PLATELET COUNT AUTOMATED 183 10*3/uL (130-400); RED BLOOD COUNT 3.33 10*6/uL (4.50-5.90); WHITE BLOOD COUNT 8.9 10*3/uL (4.8-10.8)
[2019-08-05 16:07] LABS: INTERNATIONAL NORM RATIO 1.5 (2.0-3.5)
[2019-08-05 16:18] LABS: ALBUMIN 3.1 gm/dl (3.1-4.5); ALKALINE PHOSPHATASE 158 U/L (45-117); BUN 34 mg/dl (7-24); CHLORIDE 108 mmol/L (98-107); CREATININE 1.31 mg/dL (0.70-1.30); SGOT/AST 9 IU/L (3-35); SGPT/ALT 21 U/L (12-78); SODIUM 140 mmol/L (136-145)
[2019-08-05 16:20] LABS: TROPONIN I < 0.015 ng/ml (<0.045)
[2019-08-05] MEDS ORDERED: COZAAR25 M1 PO (17:53)
[2019-08-05] MEDS ORDERED: ADALAT10 MG PO (17:54)
[2019-08-05 18:26] VITALS: BP 159/84
[2019-08-05 19:20] VITALS: BP 159/84
--- NOTE | 2019-08-05 19:34 | NUR ---
Time: 1919 A 69 year old MALE admitted to 4E under services of ZULMA RIVER DO. Pt. arrived via bed from ER. Chief complaint: CHEST PAIN. PATIENT ORIENTED TO THE FLOOR 4E. CALL LIGHT SYSTEM REVIEWED ORDERS RECEIVED. DAYLIN EDEN
[2019-08-06] VITALS: BP 154/86
[2019-08-06 06:42] LABS: HEMATOCRIT 33.8 % (42.0-52.0); HEMOGLOBIN 10.6 g/dl (14.0-18.0); MEAN CELL VOLUME 89.9 fl (80.0-94.0); MEAN CORPUSCULAR HGB 28.2 pg (27.0-31.0); MEAN CORPUSCULAR HGB CONC 31.4 g/dl (33.0-37.0); MEAN PLATELET VOLUME 11.3 fl (9.6-12.3); PLATELET COUNT AUTOMATED 198 10*3/uL (130-400); RED BLOOD COUNT 3.76 10*6/uL (4.50-5.90); RED CELL DISTRI WIDTH 16.5 % (0-14.5); WHITE BLOOD COUNT 9.2 10*3/uL (4.8-10.8)
[2019-08-06 07:04] LABS: ALBUMIN 3.3 gm/dl (3.1-4.5); ALKALINE PHOSPHATASE 176 U/L (45-117); BUN 35 mg/dl (7-24); CHLORIDE 106 mmol/L (98-107); CREATININE 1.39 mg/dL (0.70-1.30); POTASSIUM 4.4 mmol/L (3.5-5.1); SGOT/AST 10 IU/L (3-35); SGPT/ALT 20 U/L (12-78); SODIUM 138 mmol/L (136-145); TOTAL PROTEIN 6.6 gm/dL (6.4-8.2)
[2019-08-06 07:07] LABS: INTERNATIONAL NORM RATIO 1.1 (2.0-3.5)
[2019-08-06 07:48] LABS: OVALOCYTES FEW; PLATELET SUFFICIENCY NORMAL (NORMAL); ROULEAUX SLIGHT; SCHISTOCYTES FEW; TOTAL CELLS COUNTED 100 #CELLS
[2019-08-06 07:49] LABS: POLYCHROMASIA SLIGHT
[2019-08-06 08:00] VITALS: BP 145/82
[2019-08-06] MEDS ORDERED: PREDNISONE10 MG PO (09:22)
--- NOTE | 2019-08-06 10:38 | NUR ---
Discharge instructions reviewed with patient/family. Patient receptive and verbalizes understanding. Follow-up care arranged. Written instructions given to patient/family. PIPO SOTO
--- NOTE | 2019-08-08 09:21 | NUR ---
PHYSICAL THERAPY Nursing screen reviewed and chart reviewed. Patient discharged on 08/06/19. Thank you, Luz Marina Vidales,SPT Zoila Edgar,PT,SPT
== END 2019-08-06 10:38 | disposition home or self-care (01) | DRG 190 ==
LOC: ED 14:38 → EDHOLD 17:43 → 4E 17:44
PROVIDERS: Emergency Medicine; Student in an Organized Health Care Education/Training Program; ADMIT Internal Medicine
DX: J44.0 Chronic obstructive pulmonary disease with (acute) lower respiratory infection (principal); J18.9 Pneumonia, unspecified organism; I50.32 Chronic diastolic (congestive) heart failure; I13.0 Hypertensive heart and chronic kidney disease with heart failure and stage 1 through stage 4 chronic kidney disease, or unspecified chronic kidney disease; D68.59 Other primary thrombophilia; I25.10 Atherosclerotic heart disease of native coronary artery without angina pectoris; N40.0 Benign prostatic hyperplasia without lower urinary tract symptoms; N18.3 Chronic kidney disease, stage 3 (moderate); F32.9 Major depressive disorder, single episode, unspecified; E11.22 Type 2 diabetes mellitus with diabetic chronic kidney disease; F41.1 Generalized anxiety disorder; K21.9 Gastro-esophageal reflux disease without esophagitis; M10.9 Gout, unspecified; E78.5 Hyperlipidemia, unspecified; E03.9 Hypothyroidism, unspecified; D64.9 Anemia, unspecified; D72.1 Eosinophilia; E11.65 Type 2 diabetes mellitus with hyperglycemia; E83.52 Hypercalcemia; E83.41 Hypermagnesemia; J30.2 Other seasonal allergic rhinitis; M50.30 Other cervical disc degeneration, unspecified cervical region; M43.10 Spondylolisthesis, site unspecified; E11.40 Type 2 diabetes mellitus with diabetic neuropathy, unspecified; Z82.49 Family history of ischemic heart disease and other diseases of the circulatory system; Z83.3 Family history of diabetes mellitus; Z86.73 Personal history of transient ischemic attack (TIA), and cerebral infarction without residual deficits; Z80.0 Family history of malignant neoplasm of digestive organs; Z88.1 Allergy status to other antibiotic agents; Z88.0 Allergy status to penicillin; Z88.8 Allergy status to other drugs, medicaments and biological substances

== ENCOUNTER → 2019-08-05 | Outpatient (CLI) | payer MEDICARE, OTHER ==
[~2019-08-05] MED LIST changes: +ADALAT10 MG PO; +COZAAR25 M1 PO; +MAGNESIUM400 M1 PO; +PEPCID40 MG PO
== END | disposition home or self-care (01) ==
LOC: RESCLI 00:32
DX: E55.9 Vitamin D deficiency, unspecified (principal); M10.9 Gout, unspecified; J44.9 Chronic obstructive pulmonary disease, unspecified; I10 Essential (primary) hypertension; K21.9 Gastro-esophageal reflux disease without esophagitis; I48.2 Chronic atrial fibrillation; J30.2 Other seasonal allergic rhinitis; I95.1 Orthostatic hypotension; I73.00 Raynaud's syndrome without gangrene; K58.9 Irritable bowel syndrome, unspecified; E03.9 Hypothyroidism, unspecified; L24.9 Irritant contact dermatitis, unspecified cause; E78.5 Hyperlipidemia, unspecified; G62.9 Polyneuropathy, unspecified; R31.21 Asymptomatic microscopic hematuria; E66.9 Obesity, unspecified; F17.200 Nicotine dependence, unspecified, uncomplicated; E11.65 Type 2 diabetes mellitus with hyperglycemia; Z91.89 Other specified personal risk factors, not elsewhere classified; Z79.4 Long term (current) use of insulin; Z79.899 Other long term (current) drug therapy; Z86.2 Personal history of diseases of the blood and blood-forming organs and certain disorders involving the immune mechanism

== ENCOUNTER → 2019-08-08 | Outpatient (CLI) | payer MEDICARE, OTHER, MEDICAID ==
[~2019-08-08] MED LIST changes: +COZAAR25 M1 PO; +MAGNESIUM400 M1 PO; +PEPCID40 MG PO
== END | disposition home or self-care (01) ==
LOC: RESCLI 00:56
DX: E55.9 Vitamin D deficiency, unspecified (principal); M10.9 Gout, unspecified; J44.9 Chronic obstructive pulmonary disease, unspecified; K21.9 Gastro-esophageal reflux disease without esophagitis; I48.2 Chronic atrial fibrillation; I73.00 Raynaud's syndrome without gangrene; K58.9 Irritable bowel syndrome, unspecified; E03.9 Hypothyroidism, unspecified; L24.9 Irritant contact dermatitis, unspecified cause; E78.5 Hyperlipidemia, unspecified; G62.9 Polyneuropathy, unspecified; E66.9 Obesity, unspecified; I12.9 Hypertensive chronic kidney disease with stage 1 through stage 4 chronic kidney disease, or unspecified chronic kidney disease; E11.22 Type 2 diabetes mellitus with diabetic chronic kidney disease; N18.3 Chronic kidney disease, stage 3 (moderate); Z79.899 Other long term (current) drug therapy; Z91.89 Other specified personal risk factors, not elsewhere classified

== ENCOUNTER 2019-08-17 10:04 | Emergency (ER) | payer MEDICARE, OTHER ==
[~2019-08-17] VITALS: Wt 99.8 kg
[~2019-08-17 10:04] MED LIST changes: -MAGNESIUM400 M1 PO; -PEPCID40 MG PO
[2019-08-17 10:06] VITALS: BP 177/93
== END 2019-08-17 12:10 | disposition home or self-care (01) ==
LOC: ED 10:04
DX: S20.212A Contusion of left front wall of thorax, initial encounter (principal); Z88.0 Allergy status to penicillin; Z88.8 Allergy status to other drugs, medicaments and biological substances; Z88.1 Allergy status to other antibiotic agents; Z79.899 Other long term (current) drug therapy; Z79.4 Long term (current) use of insulin; Z89.422 Acquired absence of other left toe(s); Z90.49 Acquired absence of other specified parts of digestive tract; Z87.891 Personal history of nicotine dependence; W18.09XA Striking against other object with subsequent fall, initial encounter; Y93.89 Activity, other specified; Y92.098 Other place in other non-institutional residence as the place of occurrence of the external cause; Y99.8 Other external cause status

== ENCOUNTER → 2019-08-17 | Outpatient (CLI) | payer MEDICARE, OTHER ==
[2019-08-17 14:29] LABS: CREATININE 1.49 mg/dL (0.70-1.30); POTASSIUM 5.1 mmol/L (3.5-5.1)
== END | disposition home or self-care (01) ==
LOC: RESCLI 13:36
PROVIDERS: Internal Medicine Nephrology
DX: M10.9 Gout, unspecified (principal); F41.9 Anxiety disorder, unspecified; M19.90 Unspecified osteoarthritis, unspecified site; D64.9 Anemia, unspecified; E11.65 Type 2 diabetes mellitus with hyperglycemia; G89.4 Chronic pain syndrome; E78.5 Hyperlipidemia, unspecified; E03.9 Hypothyroidism, unspecified; J44.9 Chronic obstructive pulmonary disease, unspecified; G40.909 Epilepsy, unspecified, not intractable, without status epilepticus; F32.9 Major depressive disorder, single episode, unspecified; K21.9 Gastro-esophageal reflux disease without esophagitis; I25.118 Atherosclerotic heart disease of native coronary artery with other forms of angina pectoris; N40.0 Benign prostatic hyperplasia without lower urinary tract symptoms; E66.01 Morbid (severe) obesity due to excess calories; I48.20 Chronic atrial fibrillation, unspecified; H91.93 Unspecified hearing loss, bilateral; G62.9 Polyneuropathy, unspecified; E55.9 Vitamin D deficiency, unspecified; J30.2 Other seasonal allergic rhinitis; K58.9 Irritable bowel syndrome, unspecified; I95.1 Orthostatic hypotension; L20.9 Atopic dermatitis, unspecified; I12.9 Hypertensive chronic kidney disease with stage 1 through stage 4 chronic kidney disease, or unspecified chronic kidney disease; E11.22 Type 2 diabetes mellitus with diabetic chronic kidney disease; N18.3 Chronic kidney disease, stage 3 (moderate); Z79.899 Other long term (current) drug therapy

== ENCOUNTER 2019-08-20 16:38 | Emergency (ER) | payer MEDICARE, OTHER ==
[~2019-08-20] VITALS: Ht 182.8 cm; Wt 99.8 kg
--- NOTE | ~2019-08-20 | EKG ---
[place], [place] ELECTROCARDIOGRAM REPORT NAME: DEBORAH SANTACRUZ UNIT #: [id number] ROOM: DOCTOR: EPIPHANY DRAFT REPORT BIRTHDATE: [birth year] [facility] Test Date: 2019-08-20 Test Time: 16:38:58 Pat Name: DEBORAH SANTACRUZ Department: er Room: Gender: Ampoule Filler: : 1950 Requested By: BRADY COSTA Order Number: [id number] Reading MD: Yogesh Jordan MD Measurements Intervals [place] Rate: 66 P: 20 [place]: 172 QRS: 19 QRSD: 88 T: 59 QT: 390 QTc: 409 Interpretive Statements Sinus rhythm Low voltage, precordial leads Possible old anterior AR vs lead placement Electronically Signed On 08-21-2019 7:52:59 PDT by Yogesh Jordan MD CM:EKGRPT:ELECTROCARDIOGRAM REPORT [id number] BRADY MORATAYA DRAFT REPORT BRADY COSTA M.D.
[2019-08-20 17:00] LABS: BASO % 0.1 % (0.0-1.0); EOS # 0.1 10*3/uL (0.0-0.4); EOS % 0.7 % (1.0-4.0); HEMATOCRIT 33.4 % (42.0-52.0); HEMOGLOBIN 10.1 g/dl (14.0-18.0); LYMPH # 3.5 10*3/uL (1.3-4.4); LYMPH % 31.9 % (27.0-41.0); MEAN CORPUSCULAR HGB CONC 30.2 g/dl (33.0-37.0); MEAN PLATELET VOLUME 11.4 fl (9.6-12.3); MONO # 0.7 10*3/uL (0.1-1.0); NEUT # 6.5 10*3/uL (2.3-7.9); NEUT % 60.4 % (47.0-73.0); PLATELET COUNT AUTOMATED 168 10*3/uL (130-400); RED BLOOD COUNT 3.48 10*6/uL (4.50-5.90); RED CELL DISTRI WIDTH 18.2 % (0-14.5); WHITE BLOOD COUNT 10.8 10*3/uL (4.8-10.8)
[2019-08-20 17:12] LABS: ACT PARTIAL THROMBO TIME 29.6 SECONDS (20.0-32.1); INTERNATIONAL NORM RATIO 1.3 (2.0-3.5)
[2019-08-20 17:18] LABS: ALBUMIN 2.8 gm/dl (3.1-4.5); ALKALINE PHOSPHATASE 114 U/L (45-117); BUN 44 mg/dl (7-24); CHLORIDE 116 mmol/L (98-107); CREATININE 1.37 mg/dL (0.70-1.30); POTASSIUM 5.3 mmol/L (3.5-5.1); SGOT/AST 84 IU/L (3-35); SGPT/ALT 75 U/L (12-78); SODIUM 146 mmol/L (136-145); TOTAL PROTEIN 5.7 gm/dL (6.4-8.2); TROPONIN I < 0.015 ng/ml (<0.045)
[2019-08-20 19:15] VITALS: BP 168/88
== END 2019-08-20 19:31 | disposition home or self-care (01) ==
LOC: ED 16:38
PROVIDERS: Emergency Medicine
DX: R07.89 Other chest pain (principal); I25.10 Atherosclerotic heart disease of native coronary artery without angina pectoris; I13.0 Hypertensive heart and chronic kidney disease with heart failure and stage 1 through stage 4 chronic kidney disease, or unspecified chronic kidney disease; E11.22 Type 2 diabetes mellitus with diabetic chronic kidney disease; N18.3 Chronic kidney disease, stage 3 (moderate); I50.9 Heart failure, unspecified; J44.9 Chronic obstructive pulmonary disease, unspecified; E11.40 Type 2 diabetes mellitus with diabetic neuropathy, unspecified; F14.10 Cocaine abuse, uncomplicated; K21.9 Gastro-esophageal reflux disease without esophagitis; M10.9 Gout, unspecified; E78.5 Hyperlipidemia, unspecified; E11.65 Type 2 diabetes mellitus with hyperglycemia; E66.9 Obesity, unspecified; M19.90 Unspecified osteoarthritis, unspecified site; Z86.73 Personal history of transient ischemic attack (TIA), and cerebral infarction without residual deficits; Z68.34 Body mass index [BMI] 34.0-34.9, adult; Z87.891 Personal history of nicotine dependence; Z79.4 Long term (current) use of insulin; Z79.899 Other long term (current) drug therapy; Z88.1 Allergy status to other antibiotic agents; Z88.0 Allergy status to penicillin; Z88.3 Allergy status to other anti-infective agents

== ENCOUNTER 2019-08-23 10:00 | Emergency (ER) | payer OTHER ==
[~2019-08-23] VITALS: Ht 182.8 cm; Wt 99.8 kg
--- NOTE | ~2019-08-23 | EKG ---
[place], [place] ELECTROCARDIOGRAM REPORT NAME: DEBORAH SANTACRUZ UNIT #: [id number] ROOM: DOCTOR: EPIPHANY DRAFT REPORT BIRTHDATE: [birth year] [facility] Test Date: 2019-08-23 Test Time: 10:09:24 Pat Name: DEBORAH SANTACRUZ Department: Room: Gender: Refrigerator Mover: : 1950 Requested By: LARA PRITCHETT DNP Order Number: [id number] Reading MD: Janessa Metz MD Measurements Intervals [place] Rate: 73 P: 47 [place]: 204 QRS: 39 QRSD: 84 T: 60 QT: 389 QTc: 429 Interpretive Statements Sinus rhythm Low voltage, precordial leads Old inferior infarction Electronically Signed On 08-27-2019 10:29:52 PDT by Janessa Metz MD CM:EKGRPT:ELECTROCARDIOGRAM REPORT [id number] 1029 LARA MORATAYA DRAFT REPORT LARA PRITCHETT DNP
[2019-08-23 10:40] LABS: BASO % 0.1 % (0.0-1.0); EOS # 0.2 10*3/uL (0.0-0.4); EOS % 1.7 % (1.0-4.0); HEMATOCRIT 34.3 % (42.0-52.0); HEMOGLOBIN 10.6 g/dl (14.0-18.0); LYMPH # 1.5 10*3/uL (1.3-4.4); LYMPH % 14.8 % (27.0-41.0); MEAN CELL VOLUME 94.2 fl (80.0-94.0); MEAN CORPUSCULAR HGB 29.1 pg (27.0-31.0); MEAN CORPUSCULAR HGB CONC 30.9 g/dl (33.0-37.0); MEAN PLATELET VOLUME 10.8 fl (9.6-12.3); MONO # 0.5 10*3/uL (0.1-1.0); MONO % 4.7 % (3.0-9.0); NEUT # 7.7 10*3/uL (2.3-7.9); NEUT % 78.1 % (47.0-73.0); PLATELET COUNT AUTOMATED 134 10*3/uL (130-400); RED BLOOD COUNT 3.64 10*6/uL (4.50-5.90); RED CELL DISTRI WIDTH 17.1 % (0-14.5); WHITE BLOOD COUNT 9.9 10*3/uL (4.8-10.8)
[2019-08-23 10:44] VITALS: BP 158/78
[2019-08-23 10:48] LABS: ACT PARTIAL THROMBO TIME 36.7 SECONDS (20.0-32.1); INTERNATIONAL NORM RATIO 1.5 (2.0-3.5)
[2019-08-23 10:53] LABS: ALBUMIN 2.8 gm/dl (3.1-4.5); ALKALINE PHOSPHATASE 125 U/L (45-117); BUN 24 mg/dl (7-24); CHLORIDE 104 mmol/L (98-107); CREATININE 1.22 mg/dL (0.70-1.30); LIPASE 277 U/L (73-393); PHOSPHOROUS 3.3 mg/dL (2.5-4.9); POTASSIUM 4.2 mmol/L (3.5-5.1); SGOT/AST 15 IU/L (3-35); SGPT/ALT 40 U/L (12-78); SODIUM 139 mmol/L (136-145); TOTAL PROTEIN 5.9 gm/dL (6.4-8.2); TROPONIN I 0.021 ng/ml (<0.045)
[2019-08-23 11:52] LABS: BILIRUBIN NEGATIVE (NEGATIVE); BLOOD 2+ (NEGATIVE); CLARITY SL CLOUDY (CLEAR); COLOR YELLOW (YELLOW); GLUCOSE 3+ (NEGATIVE); KETONE NEGATIVE (NEGATIVE); LEUKO ESTERASE NEGATIVE (NEGATIVE); NITRITE NEGATIVE (NEGATIVE); PH 6.5 (5.0-9.0); UROBILINOGEN 0.2 E.U./dl (0.2-1.0)
[2019-08-23 12:23] LABS: RBC 21-30 rbc/hpf (0-2)
[2019-08-23 12:24] LABS: BACTERIA 1+
== END 2019-08-23 13:29 | disposition home or self-care (01) ==
LOC: ED 10:00
PROVIDERS: Nurse Practitioner Family
DX: E83.42 Hypomagnesemia (principal); I25.10 Atherosclerotic heart disease of native coronary artery without angina pectoris; J44.9 Chronic obstructive pulmonary disease, unspecified; I25.2 Old myocardial infarction; E78.5 Hyperlipidemia, unspecified; E11.22 Type 2 diabetes mellitus with diabetic chronic kidney disease; I12.9 Hypertensive chronic kidney disease with stage 1 through stage 4 chronic kidney disease, or unspecified chronic kidney disease; N18.9 Chronic kidney disease, unspecified; Z88.0 Allergy status to penicillin; Z88.1 Allergy status to other antibiotic agents; Z79.899 Other long term (current) drug therapy; Z79.4 Long term (current) use of insulin; Z89.422 Acquired absence of other left toe(s); Z89.412 Acquired absence of left great toe; Z86.73 Personal history of transient ischemic attack (TIA), and cerebral infarction without residual deficits; Z87.891 Personal history of nicotine dependence

== ENCOUNTER → 2019-09-08 | Outpatient (CLI) | payer MEDICARE, OTHER ==
[~2019-09-08] MED LIST changes: +MAGNESIUM400 M1 PO; +PEPCID40 MG PO
[2019-09-08 15:57] LABS: CREATININE 1.9 mg/dL (0.70-1.30); POTASSIUM 4.3 mmol/L (3.5-5.1)
== END | disposition home or self-care (01) ==
LOC: RESCLI 00:40
PROVIDERS: Internal Medicine
DX: J30.2 Other seasonal allergic rhinitis (principal); E11.65 Type 2 diabetes mellitus with hyperglycemia; J44.9 Chronic obstructive pulmonary disease, unspecified; E03.9 Hypothyroidism, unspecified; L20.9 Atopic dermatitis, unspecified; E78.5 Hyperlipidemia, unspecified; K21.9 Gastro-esophageal reflux disease without esophagitis; I48.20 Chronic atrial fibrillation, unspecified; K58.9 Irritable bowel syndrome, unspecified; E11.42 Type 2 diabetes mellitus with diabetic polyneuropathy; M10.9 Gout, unspecified; E83.42 Hypomagnesemia; I12.9 Hypertensive chronic kidney disease with stage 1 through stage 4 chronic kidney disease, or unspecified chronic kidney disease; E11.22 Type 2 diabetes mellitus with diabetic chronic kidney disease; N18.3 Chronic kidney disease, stage 3 (moderate); Z79.899 Other long term (current) drug therapy

== ENCOUNTER 2019-09-10 12:26 | Emergency (ER) | payer MEDICARE, OTHER ==
[~2019-09-10] VITALS: Ht 182.8 cm; Wt 101.6 kg
[~2019-09-10 12:26] MED LIST changes: -MAGNESIUM400 M1 PO; -PEPCID40 MG PO
[2019-09-10 12:57] LABS: BASO % 0.5 % (0.0-1.0); EOS # 0.2 10*3/uL (0.0-0.4); EOS % 3.9 % (1.0-4.0); HEMATOCRIT 31.7 % (42.0-52.0); HEMOGLOBIN 10.5 g/dl (14.0-18.0); LYMPH # 1.8 10*3/uL (1.3-4.4); LYMPH % 32.3 % (27.0-41.0); MEAN CELL VOLUME 86.6 fl (80.0-94.0); MEAN CORPUSCULAR HGB 28.7 pg (27.0-31.0); MEAN CORPUSCULAR HGB CONC 33.1 g/dl (33.0-37.0); MEAN PLATELET VOLUME 10.6 fl (9.6-12.3); MONO # 0.4 10*3/uL (0.1-1.0); MONO % 6.4 % (3.0-9.0); NEUT # 3.2 10*3/uL (2.3-7.9); NEUT % 56.2 % (47.0-73.0); PLATELET COUNT AUTOMATED 226 10*3/uL (130-400); RED BLOOD COUNT 3.66 10*6/uL (4.50-5.90); RED CELL DISTRI WIDTH 14.5 % (0-14.5); WHITE BLOOD COUNT 5.6 10*3/uL (4.8-10.8)
[2019-09-10 13:08] LABS: ACT PARTIAL THROMBO TIME 33.6 SECONDS (20.0-32.1); CREATININE 1.72 mg/dL (0.70-1.30); INTERNATIONAL NORM RATIO 1.3 (2.0-3.5); POTASSIUM 4.5 mmol/L (3.5-5.1)
[2019-09-10 14:09] VITALS: BP 183/85
== END 2019-09-10 14:56 | disposition home or self-care (01) ==
LOC: ED 12:26
PROVIDERS: Emergency Medicine
DX: E11.65 Type 2 diabetes mellitus with hyperglycemia (principal); E83.42 Hypomagnesemia; R42 Dizziness and giddiness; E11.22 Type 2 diabetes mellitus with diabetic chronic kidney disease; I13.0 Hypertensive heart and chronic kidney disease with heart failure and stage 1 through stage 4 chronic kidney disease, or unspecified chronic kidney disease; N18.3 Chronic kidney disease, stage 3 (moderate); I50.32 Chronic diastolic (congestive) heart failure; E11.40 Type 2 diabetes mellitus with diabetic neuropathy, unspecified; I25.10 Atherosclerotic heart disease of native coronary artery without angina pectoris; E66.9 Obesity, unspecified; E03.9 Hypothyroidism, unspecified; E78.00 Pure hypercholesterolemia, unspecified; K21.9 Gastro-esophageal reflux disease without esophagitis; J44.9 Chronic obstructive pulmonary disease, unspecified; Z87.891 Personal history of nicotine dependence; Z90.49 Acquired absence of other specified parts of digestive tract; Z89.422 Acquired absence of other left toe(s); Z89.412 Acquired absence of left great toe; Z88.1 Allergy status to other antibiotic agents; Z88.0 Allergy status to penicillin; Z79.899 Other long term (current) drug therapy; Z79.4 Long term (current) use of insulin; Z68.30 Body mass index [BMI] 30.0-30.9, adult; Z86.73 Personal history of transient ischemic attack (TIA), and cerebral infarction without residual deficits

== ENCOUNTER 2019-09-11 13:11 | Emergency (ER) | payer MEDICARE, OTHER ==
[~2019-09-11] VITALS: Ht 182.8 cm; Wt 101.6 kg
--- NOTE | ~2019-09-11 | EKG ---
[place], [place] ELECTROCARDIOGRAM REPORT NAME: DEBORAH SANTACRUZ UNIT #: [id number] ROOM: DOCTOR: EPIPHANY DRAFT REPORT BIRTHDATE: [birth year] [facility] Test Date: 2019-09-11 Test Time: 17:02:59 Pat Name: DEBORAH SANTACRUZ Department: Room: Gender: Marine Firer: : 1950 Requested By: TONY RIOS Order Number: [id number] Reading MD: Margareth Mancini Measurements Intervals [place] Rate: 63 P: 9 [place]: 203 QRS: 17 QRSD: 97 T: 49 QT: 429 QTc: 440 Interpretive Statements Sinus rhythm Atrial premature complex Inferior infarct, old Compared to ECG 08/23/2019 10:09:24 Atrial premature complex(es) now present Myocardial infarct finding still present Electronically Signed On 09-12-2019 11:15:03 PST by Margareth Mancini CM:EKGRPT:ELECTROCARDIOGRAM REPORT [id number] [id number] TONY MORATAYA DRAFT REPORT TONY RIOS MD
--- NOTE | ~2019-09-11 | EKG ---
[place], [place] ELECTROCARDIOGRAM REPORT NAME: DEBORAH SANTACRUZ UNIT #: [id number] ROOM: DOCTOR: EPIPHANY DRAFT REPORT BIRTHDATE: [birth year] [facility] Test Date: 2019-09-21 Test Time: 13:12:33 Pat Name: DEBORAH SANTACRUZ Department: Room: Gender: Railway Track Worker: : 1950 Requested By: TONY RIOS Order Number: [id number] Reading MD: Margareth Mancini Measurements Intervals [place] Rate: 69 P: 3 [place]: 206 QRS: 3 QRSD: 96 T: 57 QT: 413 QTc: 443 Interpretive Statements Sinus rhythm Inferior infarct, old Anteroseptal infarct, old Compared to ECG 08/23/2019 10:09:24 No significant changes Electronically Signed On 09-12-2019 11:17:24 PST by Margareth Mancini CM:EKGRPT:ELECTROCARDIOGRAM REPORT [id number] 1117 TONY MORATAYA DRAFT REPORT TONY RIOS MD
[2019-09-11 13:41] LABS: BASO % 0.5 % (0.0-1.0); EOS # 0.2 10*3/uL (0.0-0.4); EOS % 3.9 % (1.0-4.0); HEMATOCRIT 29.3 % (42.0-52.0); HEMOGLOBIN 9.6 g/dl (14.0-18.0); LYMPH # 1.9 10*3/uL (1.3-4.4); LYMPH % 31.3 % (27.0-41.0); MEAN CELL VOLUME 88.3 fl (80.0-94.0); MEAN CORPUSCULAR HGB 28.9 pg (27.0-31.0); MEAN CORPUSCULAR HGB CONC 32.8 g/dl (33.0-37.0); MEAN PLATELET VOLUME 10.6 fl (9.6-12.3); MONO # 0.5 10*3/uL (0.1-1.0); MONO % 7.3 % (3.0-9.0); NEUT # 3.5 10*3/uL (2.3-7.9); NEUT % 56.3 % (47.0-73.0); PLATELET COUNT AUTOMATED 218 10*3/uL (130-400); RED BLOOD COUNT 3.32 10*6/uL (4.50-5.90); RED CELL DISTRI WIDTH 14.6 % (0-14.5); WHITE BLOOD COUNT 6.1 10*3/uL (4.8-10.8)
[2019-09-11 13:54] LABS: ACT PARTIAL THROMBO TIME 40.2 SECONDS (20.0-32.1); INTERNATIONAL NORM RATIO 1.6 (2.0-3.5)
[2019-09-11 13:57] LABS: ALKALINE PHOSPHATASE 140 U/L (45-117); BUN 30 mg/dl (7-24); CHLORIDE 106 mmol/L (98-107); CREATININE 1.45 mg/dL (0.70-1.30); POTASSIUM 4.5 mmol/L (3.5-5.1); SGOT/AST 13 IU/L (3-35); SGPT/ALT 18 U/L (12-78); SODIUM 137 mmol/L (136-145); TOTAL PROTEIN 6.3 gm/dL (6.4-8.2)
[2019-09-11 14:09] LABS: TROPONIN I < 0.015 ng/ml (<0.045)
[2019-09-11 15:18] VITALS: BP 130/67
== END 2019-09-11 17:52 | disposition home or self-care (01) ==
LOC: ED 13:11
PROVIDERS: Emergency Medicine
DX: R07.9 Chest pain, unspecified (principal); E11.65 Type 2 diabetes mellitus with hyperglycemia; I25.10 Atherosclerotic heart disease of native coronary artery without angina pectoris; J44.9 Chronic obstructive pulmonary disease, unspecified; M10.9 Gout, unspecified; I25.2 Old myocardial infarction; M86.9 Osteomyelitis, unspecified; E78.5 Hyperlipidemia, unspecified; E03.9 Hypothyroidism, unspecified; E11.40 Type 2 diabetes mellitus with diabetic neuropathy, unspecified; I50.9 Heart failure, unspecified; I11.0 Hypertensive heart disease with heart failure; Z88.1 Allergy status to other antibiotic agents; Z88.0 Allergy status to penicillin; Z79.899 Other long term (current) drug therapy; Z79.4 Long term (current) use of insulin; Z87.891 Personal history of nicotine dependence; Z95.5 Presence of coronary angioplasty implant and graft; Z86.718 Personal history of other venous thrombosis and embolism; Z86.73 Personal history of transient ischemic attack (TIA), and cerebral infarction without residual deficits

== ENCOUNTER → 2019-09-12 | Outpatient (CLI) | payer MEDICARE, OTHER ==
[~2019-09-12] MED LIST changes: +MAGNESIUM400 M1 PO; +PEPCID40 MG PO
[2019-09-12 11:00] LABS: CREATININE 1.47 mg/dL (0.70-1.30); POTASSIUM 5.2 mmol/L (3.5-5.1)
== END | disposition home or self-care (01) ==
LOC: LAB 09:39
PROVIDERS: Family Medicine
DX: E83.42 Hypomagnesemia (principal)

== ENCOUNTER 2019-09-19 12:43 | Observation (INO) | payer MEDICARE, OTHER ==
[~2019-09-19] VITALS: Ht 182.8 cm; Wt 103.9 kg
--- NOTE | ~2019-09-19 | EKG ---
[place], [place] ELECTROCARDIOGRAM REPORT NAME: DEBORAH SANTACRUZ UNIT #: [id number] ROOM: 428 DOCTOR: RAFIA DRAFT REPORT BIRTHDATE: [birth year] [facility] Test Date: 2019-09-19 Test Time: 16:02:12 Pat Name: DEBORAH SANTACRUZ Department: Room: 428 Gender: M Remote Pilot Operator: : 1950 Requested By: TONY RIOS Order Number: [id number] Reading MD: Janessa Metz MD Measurements Intervals [place] Rate: 77 P: 38 [place]: 200 QRS: 29 QRSD: 88 T: 57 QT: 402 QTc: 455 Interpretive Statements Sinus rhythm Inferior infarct, old Compared to ECG 09/11/2019 17:02:59 Atrial premature complex(es) no longer present Myocardial infarct finding still present Electronically Signed On 09-24-2019 4:22:10 PST by Janessa Metz MD CM:EKGRPT:ELECTROCARDIOGRAM REPORT [id number] 0422 TONY MORATAYA DRAFT REPORT TONY RIOS MD
--- NOTE | ~2019-09-19 | EKG ---
[place], [place] ELECTROCARDIOGRAM REPORT NAME: DEBORAH SANTACRUZ UNIT #: [id number] ROOM: 428 DOCTOR: RAFIA DRAFT REPORT BIRTHDATE: [birth year] [facility] Test Date: 2019-09-19 Test Time: 19:19:08 Pat Name: DEBORAH SANTACRUZ Department: Room: 428 Gender: M Health Clinician: Nicolasa Garcias : 1950 Requested By: TONY RIOS Order Number: [id number] Reading MD: Janessa Metz MD Measurements Intervals [place] Rate: 70 P: 12 IN: 199 QRS: 43 QRSD: 88 T: 64 QT: 423 QTc: 457 Interpretive Statements Sinus rhythm Ventricular premature complex Anterior infarct, old Compared to ECG 09/11/2019 17:02:59 Ventricular premature complex(es) now present Atrial premature complex(es) no longer present Myocardial infarct finding still present Electronically Signed On 09-24-2019 4:22:29 PST by Janessa Metz MD CM:EKGRPT:ELECTROCARDIOGRAM REPORT 18 0422 TONY MORATAYA DRAFT REPORT TONY RIOS MD
--- NOTE | ~2019-09-19 | EKG ---
[place], [place] ELECTROCARDIOGRAM REPORT NAME: DEBORAH SANTACRUZ UNIT #: [id number] ROOM: 428 DOCTOR: RAFIA DRAFT REPORT BIRTHDATE: [birth year] [facility] Test Date: 2019-09-19 Test Time: 12:45:41 Pat Name: DEBORAH SANTACRUZ Department: Room: 428 Gender: M Restorative Care Technician: : 1950 Requested By: TONY RIOS Order Number: [id number] Reading MD: Janessa Metz MD Measurements Intervals [place] Rate: 84 P: 3 MD: 190 QRS: 16 QRSD: 90 T: 53 QT: 377 QTc: 446 Interpretive Statements Sinus rhythm Atrial premature complex Inferior infarct, old Consider anterior infarct Compared to ECG 09/11/2019 17:02:59 No significant changes Electronically Signed On 09-24-2019 4:21:58 PST by Janessa Metz MD CM:EKGRPT:ELECTROCARDIOGRAM REPORT [id number] 0421 TONY MORATAYA DRAFT REPORT TONY RIOS MD
[~2019-09-19 12:43] MED LIST changes: -MAGNESIUM400 M1 PO; -PEPCID40 MG PO
[2019-09-19 12:46] VITALS: BP 162/87
[2019-09-19 13:12] LABS: BASO % 0.5 % (0.0-1.0); EOS # 0.3 10*3/uL (0.0-0.4); EOS % 4.8 % (1.0-4.0); HEMATOCRIT 35.9 % (42.0-52.0); HEMOGLOBIN 11.4 g/dl (14.0-18.0); LYMPH % 33.1 % (27.0-41.0); MEAN CELL VOLUME 88.4 fl (80.0-94.0); MEAN CORPUSCULAR HGB 28.1 pg (27.0-31.0); MEAN CORPUSCULAR HGB CONC 31.8 g/dl (33.0-37.0); MEAN PLATELET VOLUME 11.4 fl (9.6-12.3); MONO # 0.5 10*3/uL (0.1-1.0); MONO % 7.4 % (3.0-9.0); NEUT # 3.2 10*3/uL (2.3-7.9); NEUT % 53.4 % (47.0-73.0); PLATELET COUNT AUTOMATED 149 10*3/uL (130-400); RED BLOOD COUNT 4.06 10*6/uL (4.50-5.90); RED CELL DISTRI WIDTH 15.1 % (0-14.5); WHITE BLOOD COUNT 6.1 10*3/uL (4.8-10.8)
[2019-09-19 13:22] LABS: ACT PARTIAL THROMBO TIME 34.7 SECONDS (20.0-32.1); INTERNATIONAL NORM RATIO 1.4 (2.0-3.5)
[2019-09-19 13:29] LABS: ALKALINE PHOSPHATASE 153 U/L (45-117); BUN 25 mg/dl (7-24); CHLORIDE 110 mmol/L (98-107); CREATININE 1.44 mg/dL (0.70-1.30); POTASSIUM 4.3 mmol/L (3.5-5.1); SGOT/AST 30 IU/L (3-35); SGPT/ALT 34 U/L (12-78); SODIUM 140 mmol/L (136-145); TOTAL PROTEIN 6.3 gm/dL (6.4-8.2); TROPONIN I < 0.015 ng/ml (<0.045)
[2019-09-19] MEDS ORDERED: MAGNESIUM400 M1 PO (14:02)
--- NOTE | 2019-09-19 14:20 | NUR ---
A 69, admitted to , under the services of CANDE Baker DO with a diagnosis of CHEST PAIN, HYPOMAGNESEMIA. Chief complaint is CHEST PAIN. Patient arrived via bed from ER. Monitor applied. Initial assessment completed. Vital signs taken and recorded. CANDE BAKER DO notified of admission to the unit. Orders received. See assessment for past medical history, medications and allergies. Patient and/or family oriented to unit. [facility] visitation policy reviewed. Clothing/patient valuable form completed. MATTEO GALDAMEZ
[2019-09-19] MEDS ORDERED: SYNTHROID,LEVO88 MCG PO (14:55)
[2019-09-19 15:00] VITALS: BP 174/84
[2019-09-19 16:00] VITALS: BP 151/67
--- NOTE | 2019-09-19 16:25 | NUR ---
NORCO GIVEN FOR C/O CHEST PAIN OF 04/18. WILL CONT TO MONITOR. CALL LIGHT IN REACH.
--- NOTE | 2019-09-19 16:32 | NUR ---
DR PERRY NOTIFIED PT HR 149 WHILE AMBULATING TO RESTROOM FOR 30SECS PER BEHAVIOR SPECIALIST. STRIP PLACED ON CHART.
--- NOTE | 2019-09-19 17:25 | NUR ---
PT STATES NORCO INEFF.
--- NOTE | 2019-09-19 17:48 | NUR ---
DR PERRY NOTIFIED [facility]. HE STATED HE WILL PUT SOMETHING IN.
--- NOTE | 2019-09-19 19:56 | NUR ---
REPORT RECEIVED FROM DAYLIGHT NURSE. PT LYING IN BED WATCHING TV. STATES THAT THE PAIN MEDICINE HE HAD EARLIER HELPED HIS CHEST PAIN A LITTLE BIT. VOICES NO COMPLAINTS AT THIS TIME. RESPIRATIONS EASY AND UNLABORED. CALL LIGHT IN REACH.
[2019-09-19 20:00] VITALS: BP 145/71
--- NOTE | 2019-09-19 22:48 | NUR ---
NORCO GIVEN PER ORDER FOR COMPLAINTS OF 6/10 CHEST PAIN. WILL MONITOR EFFECTIVENESS.
--- NOTE | 2019-09-19 23:00 | NUR ---
PT WATCHING TV AT THIS TIME. NO COMPLAINTS. CALL LIGHT IN REACH.
[2019-09-20] VITALS: BP 154/65
--- NOTE | 2019-09-20 | NUR ---
NORCO APPEARS EFFECTIVE. PT SLEEPING AT THIS TIME.
--- NOTE | 2019-09-20 01:00 | NUR ---
PT SLEEPING WITH CALL LIGHT IN REACH.
--- NOTE | 2019-09-20 03:00 | NUR ---
PT IS SLEEPING
--- NOTE | 2019-09-20 03:05 | NUR ---
24 HR chart check completed.
--- NOTE | 2019-09-20 05:04 | NUR ---
PT LYING IN BED SLEEPING AT THIS TIME. RESPIRATIONS EASY AND UNLABORED. CALL LIGHT IN REACH.
--- NOTE | 2019-09-20 06:03 | NUR ---
PT MEDICATED PER ORDER WITH NORCO FOR COMPLAINTS OF CHEST PAIN. WILL MONITOR EFFECTIVENESS.
[2019-09-20 06:27] LABS: BASO % 0.2 % (0.0-1.0); EOS % 0.2 % (1.0-4.0); HEMATOCRIT 32.9 % (42.0-52.0); HEMOGLOBIN 10.7 g/dl (14.0-18.0); LYMPH # 0.4 10*3/uL (1.3-4.4); LYMPH % 7.9 % (27.0-41.0); MEAN CORPUSCULAR HGB 28.6 pg (27.0-31.0); MEAN CORPUSCULAR HGB CONC 32.5 g/dl (33.0-37.0); MEAN PLATELET VOLUME 11.1 fl (9.6-12.3); MONO # 0.1 10*3/uL (0.1-1.0); NEUT # 4.5 10*3/uL (2.3-7.9); NEUT % 88.9 % (47.0-73.0); PLATELET COUNT AUTOMATED 125 10*3/uL (130-400); RED BLOOD COUNT 3.74 10*6/uL (4.50-5.90); RED CELL DISTRI WIDTH 14.9 % (0-14.5); WHITE BLOOD COUNT 5.1 10*3/uL (4.8-10.8)
[2019-09-20 06:36] LABS: CREATININE 1.5 mg/dL (0.70-1.30); POTASSIUM 5.1 mmol/L (3.5-5.1)
[2019-09-20 08:00] VITALS: BP 134/62
--- NOTE | 2019-09-20 09:00 | NUR ---
Prenatal Genetic Counselor in to talk to patient. Patient states lives at home with alone. There are few steps in the home. [facility] Patient's level of ADLs: MINIMAL ASSIST Patient has working utilities: all working DME: walker Follow-up physician's appointment after d/c: will be made by hospitalist nurse director upon discharge Does patient want to access PORTAL?: no Discharge plan discussed with patient, he states he lives at home alone, he has a walker to use for ambulation, he has [facility] with a nurse 2 days a week and aids 3 days a week, he stated he would return home when medically stable and denies any other home need. STEVAN CASPER
[2019-09-20] MEDS ORDERED: PEPCID40 MG PO (10:35)
[2019-09-20] MEDS ORDERED: MAGNESIUM400 M1 PO (10:35)
--- NOTE | 2019-09-20 11:25 | NUR ---
PT DISCHARGED AT THIS TIME. IV REMOVED AND PRESSURE DRESSING APPLIED. VERBALIZED UNDERSTANDING OF DISCHARGE INSTRUCTIONS.
== END 2019-09-20 11:25 | disposition home or self-care (01) ==
LOC: ED 12:43 → EDHOLD 14:03 → 4E 14:44
PROVIDERS: Emergency Medicine; Internal Medicine; ADMIT Internal Medicine
DX: R07.89 Other chest pain (principal); E83.42 Hypomagnesemia; R06.82 Tachypnea, not elsewhere classified; E87.8 Other disorders of electrolyte and fluid balance, not elsewhere classified; K21.9 Gastro-esophageal reflux disease without esophagitis; I25.10 Atherosclerotic heart disease of native coronary artery without angina pectoris; I12.9 Hypertensive chronic kidney disease with stage 1 through stage 4 chronic kidney disease, or unspecified chronic kidney disease; N18.3 Chronic kidney disease, stage 3 (moderate); E11.65 Type 2 diabetes mellitus with hyperglycemia; E11.22 Type 2 diabetes mellitus with diabetic chronic kidney disease; E78.5 Hyperlipidemia, unspecified; E03.9 Hypothyroidism, unspecified; J44.1 Chronic obstructive pulmonary disease with (acute) exacerbation; J18.9 Pneumonia, unspecified organism

== ENCOUNTER → 2019-09-21 | Outpatient (CLI) | payer MEDICARE, OTHER ==
[~2019-09-21] MED LIST changes: +MAGNESIUM400 M1 PO; +PEPCID40 MG PO
[2019-09-22 09:04] LABS: URINE MAGNESIUM 24 HR 141.6 mg/24 hr (12.0-293.0)
== END | disposition home or self-care (01) ==
LOC: LAB 13:48
PROVIDERS: Family Medicine
DX: E83.42 Hypomagnesemia (principal)

== ENCOUNTER 2019-09-23 16:48 | Emergency (ER) | payer MEDICARE, OTHER ==
[~2019-09-23] VITALS: Wt 111.1 kg
--- NOTE | ~2019-09-23 | EKG ---
[place], [place] ELECTROCARDIOGRAM REPORT NAME: DEBORAH SANTACRUZ UNIT #: [id number] ROOM: DOCTOR: EPIPHANY DRAFT REPORT BIRTHDATE: [birth year] [facility] Test Date: 2019-09-23 Test Time: 16:48:45 Pat Name: DEBORAH SANTACRUZ Department: Room: Gender: M English Composition Teacher: Sparkle Maldonado : 1950 Requested By: BRADY COSTA Order Number: [id number] Reading MD: Janessa Metz MD Measurements Intervals [place] Rate: 76 P: 13 [place]: 183 QRS: 37 QRSD: 88 T: 53 QT: 374 QTc: 421 Interpretive Statements Sinus rhythm Low voltage, precordial leads Poor R wave progression Compared to ECG 09/21/2019 13:12:33 Low QRS voltage now present Myocardial infarct finding no longer present Electronically Signed On 09-24-2019 4:25:59 PST by Janessa Metz MD CM:EKGRPT:ELECTROCARDIOGRAM REPORT [id number] 0425 BRADY COSTA M.D. EPIPHFABIOLA DRAFT REPORT BRADY COSTA M.D.
[2019-09-23 17:14] LABS: BASO % 0.4 % (0.0-1.0); EOS # 0.3 10*3/uL (0.0-0.4); EOS % 3.7 % (1.0-4.0); HEMATOCRIT 33.8 % (42.0-52.0); HEMOGLOBIN 10.9 g/dl (14.0-18.0); LYMPH # 2.3 10*3/uL (1.3-4.4); LYMPH % 28.6 % (27.0-41.0); MEAN CELL VOLUME 89.2 fl (80.0-94.0); MEAN CORPUSCULAR HGB 28.8 pg (27.0-31.0); MEAN CORPUSCULAR HGB CONC 32.2 g/dl (33.0-37.0); MEAN PLATELET VOLUME 11.3 fl (9.6-12.3); MONO # 0.6 10*3/uL (0.1-1.0); MONO % 7.1 % (3.0-9.0); NEUT # 4.8 10*3/uL (2.3-7.9); NEUT % 58.4 % (47.0-73.0); PLATELET COUNT AUTOMATED 149 10*3/uL (130-400); RED BLOOD COUNT 3.79 10*6/uL (4.50-5.90); RED CELL DISTRI WIDTH 15.4 % (0-14.5); WHITE BLOOD COUNT 8.2 10*3/uL (4.8-10.8)
[2019-09-23 17:26] LABS: INTERNATIONAL NORM RATIO 1.3 (2.0-3.5)
[2019-09-23 17:31] LABS: ALBUMIN 3.2 gm/dl (3.1-4.5); ALKALINE PHOSPHATASE 138 U/L (45-117); BUN 46 mg/dl (7-24); CHLORIDE 108 mmol/L (98-107); POTASSIUM 4.7 mmol/L (3.5-5.1); SGOT/AST 22 IU/L (3-35); SGPT/ALT 33 U/L (12-78); SODIUM 139 mmol/L (136-145); TOTAL PROTEIN 6.3 gm/dL (6.4-8.2)
[2019-09-23 17:32] LABS: TROPONIN I < 0.015 ng/ml (<0.045)
[2019-09-23 17:52] VITALS: BP 164/80
== END 2019-09-23 18:48 | disposition home or self-care (01) ==
LOC: ED 16:48
PROVIDERS: Emergency Medicine
DX: E11.65 Type 2 diabetes mellitus with hyperglycemia (principal); E83.42 Hypomagnesemia; R07.9 Chest pain, unspecified; R42 Dizziness and giddiness; J44.9 Chronic obstructive pulmonary disease, unspecified; I25.10 Atherosclerotic heart disease of native coronary artery without angina pectoris; K21.9 Gastro-esophageal reflux disease without esophagitis; M10.9 Gout, unspecified; E78.5 Hyperlipidemia, unspecified; E03.9 Hypothyroidism, unspecified; E66.9 Obesity, unspecified; E11.42 Type 2 diabetes mellitus with diabetic polyneuropathy; I13.0 Hypertensive heart and chronic kidney disease with heart failure and stage 1 through stage 4 chronic kidney disease, or unspecified chronic kidney disease; E11.22 Type 2 diabetes mellitus with diabetic chronic kidney disease; N18.3 Chronic kidney disease, stage 3 (moderate); I50.32 Chronic diastolic (congestive) heart failure; M86.9 Osteomyelitis, unspecified; I25.2 Old myocardial infarction; Z88.0 Allergy status to penicillin; Z88.1 Allergy status to other antibiotic agents; Z79.899 Other long term (current) drug therapy; Z79.4 Long term (current) use of insulin; Z86.73 Personal history of transient ischemic attack (TIA), and cerebral infarction without residual deficits; Z68.34 Body mass index [BMI] 34.0-34.9, adult; Z87.891 Personal history of nicotine dependence; Z86.718 Personal history of other venous thrombosis and embolism

== ENCOUNTER → 2019-09-30 | Outpatient (CLI) | payer MEDICARE, OTHER | END | disposition home or self-care (01) | LOC: RESCLI 00:33 | DX: Z12.11 Encounter for screening for malignant neoplasm of colon (principal); E11.65 Type 2 diabetes mellitus with hyperglycemia; J30.2 Other seasonal allergic rhinitis; E11.22 Type 2 diabetes mellitus with diabetic chronic kidney disease; I12.9 Hypertensive chronic kidney disease with stage 1 through stage 4 chronic kidney disease, or unspecified chronic kidney disease; N18.3 Chronic kidney disease, stage 3 (moderate); M10.9 Gout, unspecified; L20.9 Atopic dermatitis, unspecified; E03.9 Hypothyroidism, unspecified; E78.5 Hyperlipidemia, unspecified; K21.9 Gastro-esophageal reflux disease without esophagitis; K58.9 Irritable bowel syndrome, unspecified; J44.9 Chronic obstructive pulmonary disease, unspecified; G62.9 Polyneuropathy, unspecified; E83.42 Hypomagnesemia; I48.19 Other persistent atrial fibrillation; Z79.899 Other long term (current) drug therapy; Z79.4 Long term (current) use of insulin; Z87.891 Personal history of nicotine dependence; Z88.1 Allergy status to other antibiotic agents ==

== ENCOUNTER 2019-10-05 14:43 | Emergency (ER) | payer MEDICARE, OTHER ==
[~2019-10-05] VITALS: Ht 182.8 cm; Wt 102.1 kg
--- NOTE | ~2019-10-05 | EKG ---
[place], [place] ELECTROCARDIOGRAM REPORT NAME: DEBORAH SANTACRUZ UNIT #: [id number] ROOM: DOCTOR: EPIPHFABIOLA DRAFT REPORT BIRTHDATE: [birth year] [facility] Test Date: 2019-10-05 Test Time: 15:07:37 Pat Name: DEBORAH SANTACRUZ Department: Room: Gender: Banking Services Officer: : 1950 Requested By: RY MARIA Order Number: [id number] Reading MD: Ross Nixon MD Measurements Intervals [place] Rate: 81 P: 3 IN: 194 QRS: 7 QRSD: 85 T: 56 QT: 367 QTc: 426 Interpretive Statements Sinus rhythm Inferior infarct, old Probable anterior infarct, old Baseline wander in lead(s) III Compared to ECG 09/23/2019 16:48:45 Myocardial infarct finding now present Poor R-wave progression no longer present Electronically Signed On 10-06-2019 9:17:52 PST by Ross Nixon MD CM:EKGRPT:ELECTROCARDIOGRAM REPORT [id number] 0917 RY MEHTA DRAFT REPORT RY MARIA DO
[2019-10-05 14:53] VITALS: BP 157/95
[2019-10-05 15:16] LABS: BASO # 0.1 10*3/uL (0.0-0.1); BASO % 0.7 % (0.0-1.0); EOS # 0.6 10*3/uL (0.0-0.4); EOS % 6.8 % (1.0-4.0); HEMATOCRIT 36.3 % (42.0-52.0); HEMOGLOBIN 11.5 g/dl (14.0-18.0); LYMPH # 2.2 10*3/uL (1.3-4.4); LYMPH % 26.4 % (27.0-41.0); MEAN CELL VOLUME 89.9 fl (80.0-94.0); MEAN CORPUSCULAR HGB 28.5 pg (27.0-31.0); MEAN CORPUSCULAR HGB CONC 31.7 g/dl (33.0-37.0); MEAN PLATELET VOLUME 11.6 fl (9.6-12.3); MONO # 0.5 10*3/uL (0.1-1.0); MONO % 5.4 % (3.0-9.0); NEUT % 59.9 % (47.0-73.0); PLATELET COUNT AUTOMATED 170 10*3/uL (130-400); RED BLOOD COUNT 4.04 10*6/uL (4.50-5.90); RED CELL DISTRI WIDTH 15.3 % (0-14.5); WHITE BLOOD COUNT 8.3 10*3/uL (4.8-10.8)
[2019-10-05 15:30] LABS: ACT PARTIAL THROMBO TIME 35.3 SECONDS (20.0-32.1); INTERNATIONAL NORM RATIO 1.4 (2.0-3.5)
[2019-10-05 15:31] LABS: ALBUMIN 3.4 gm/dl (3.1-4.5); ALKALINE PHOSPHATASE 150 U/L (45-117); BUN 33 mg/dl (7-24); CHLORIDE 113 mmol/L (98-107); CREATININE 1.34 mg/dL (0.70-1.30); LIPASE 343 U/L (73-393); POTASSIUM 5.1 mmol/L (3.5-5.1); SGOT/AST 22 IU/L (3-35); SGPT/ALT 37 U/L (12-78); SODIUM 138 mmol/L (136-145); TOTAL PROTEIN 6.7 gm/dL (6.4-8.2)
[2019-10-05 15:34] LABS: TROPONIN I < 0.015 ng/ml (<0.045)
== END 2019-10-05 16:29 | disposition home or self-care (01) ==
LOC: ED 14:43
PROVIDERS: Emergency Medicine
DX: E83.42 Hypomagnesemia (principal); R79.1 Abnormal coagulation profile; I25.10 Atherosclerotic heart disease of native coronary artery without angina pectoris; J44.9 Chronic obstructive pulmonary disease, unspecified; I13.0 Hypertensive heart and chronic kidney disease with heart failure and stage 1 through stage 4 chronic kidney disease, or unspecified chronic kidney disease; E11.22 Type 2 diabetes mellitus with diabetic chronic kidney disease; N18.3 Chronic kidney disease, stage 3 (moderate); I50.32 Chronic diastolic (congestive) heart failure; K21.9 Gastro-esophageal reflux disease without esophagitis; E78.5 Hyperlipidemia, unspecified; E03.9 Hypothyroidism, unspecified; E66.9 Obesity, unspecified; M10.9 Gout, unspecified; M86.9 Osteomyelitis, unspecified; I25.2 Old myocardial infarction; Z79.4 Long term (current) use of insulin; Z68.34 Body mass index [BMI] 34.0-34.9, adult; Z79.899 Other long term (current) drug therapy; Z88.1 Allergy status to other antibiotic agents; Z88.0 Allergy status to penicillin; Z86.718 Personal history of other venous thrombosis and embolism; Z87.891 Personal history of nicotine dependence

== ENCOUNTER 2019-10-13 10:04 | Emergency (ER) | payer MEDICARE, OTHER ==
[~2019-10-13] VITALS: Ht 182.8 cm; Wt 113.4 kg
--- NOTE | ~2019-10-13 | EKG ---
[place], [place] ELECTROCARDIOGRAM REPORT NAME: DEBORAH SANTACRUZ UNIT #: [id number] ROOM: DOCTOR: EPIPHFABIOLA DRAFT REPORT BIRTHDATE: [birth year] [facility] Test Date: 2019-10-13 Test Time: 10:22:16 Pat Name: DEBORAH SANTACRUZ Department: Room: Gender: Service Planner: : 1950 Requested By: RY MARIA Order Number: [id number] Reading MD: Janessa Metz MD Measurements Intervals [place] Rate: 84 P: 7 [place]: 191 QRS: 20 QRSD: 85 T: 47 QT: 348 QTc: 412 Interpretive Statements Sinus rhythm Ventricular premature complex Inferior infarct, old Compared to ECG 10/05/2019 15:07:37 Ventricular premature complex(es) now present Myocardial infarct finding still present Electronically Signed On 10-17-2019 13:43:23 PST by Janessa Metz MD CM:EKGRPT:ELECTROCARDIOGRAM REPORT 1022 1343 RY MEHTA DRAFT REPORT RY MARIA DO
[2019-10-13 10:05] VITALS: BP 198/83
[2019-10-13 10:43] LABS: BASO # 0.1 10*3/uL (0.0-0.1); BASO % 0.7 % (0.0-1.0); EOS # 0.4 10*3/uL (0.0-0.4); EOS % 6.1 % (1.0-4.0); HEMATOCRIT 35.1 % (42.0-52.0); HEMOGLOBIN 11.3 g/dl (14.0-18.0); LYMPH # 2.3 10*3/uL (1.3-4.4); LYMPH % 33.9 % (27.0-41.0); MEAN CELL VOLUME 89.5 fl (80.0-94.0); MEAN CORPUSCULAR HGB 28.8 pg (27.0-31.0); MEAN CORPUSCULAR HGB CONC 32.2 g/dl (33.0-37.0); MEAN PLATELET VOLUME 11.1 fl (9.6-12.3); MONO # 0.4 10*3/uL (0.1-1.0); MONO % 5.6 % (3.0-9.0); NEUT # 3.6 10*3/uL (2.3-7.9); NEUT % 53.1 % (47.0-73.0); PLATELET COUNT AUTOMATED 168 10*3/uL (130-400); RED BLOOD COUNT 3.92 10*6/uL (4.50-5.90); RED CELL DISTRI WIDTH 15.6 % (0-14.5); WHITE BLOOD COUNT 6.8 10*3/uL (4.8-10.8)
[2019-10-13 10:54] LABS: ACT PARTIAL THROMBO TIME 30.1 SECONDS (20.0-32.1); INTERNATIONAL NORM RATIO 1.1 (2.0-3.5)
[2019-10-13 11:04] LABS: ALBUMIN 3.1 gm/dl (3.1-4.5); ALKALINE PHOSPHATASE 156 U/L (45-117); BUN 31 mg/dl (7-24); CHLORIDE 110 mmol/L (98-107); CREATININE 1.35 mg/dL (0.70-1.30); LIPASE 235 U/L (73-393); POTASSIUM 4.7 mmol/L (3.5-5.1); SGOT/AST 39 IU/L (3-35); SGPT/ALT 46 U/L (12-78); SODIUM 139 mmol/L (136-145); TOTAL PROTEIN 6.4 gm/dL (6.4-8.2); TROPONIN I < 0.015 ng/ml (<0.045)
== END 2019-10-13 11:37 | disposition home or self-care (01) ==
LOC: ED 10:04
PROVIDERS: Emergency Medicine
DX: E83.42 Hypomagnesemia (principal); E11.22 Type 2 diabetes mellitus with diabetic chronic kidney disease; I13.0 Hypertensive heart and chronic kidney disease with heart failure and stage 1 through stage 4 chronic kidney disease, or unspecified chronic kidney disease; N18.3 Chronic kidney disease, stage 3 (moderate); I50.32 Chronic diastolic (congestive) heart failure; E11.40 Type 2 diabetes mellitus with diabetic neuropathy, unspecified; I25.10 Atherosclerotic heart disease of native coronary artery without angina pectoris; J44.9 Chronic obstructive pulmonary disease, unspecified; I25.2 Old myocardial infarction; E78.5 Hyperlipidemia, unspecified; K21.9 Gastro-esophageal reflux disease without esophagitis; E03.9 Hypothyroidism, unspecified; E66.9 Obesity, unspecified; Z87.891 Personal history of nicotine dependence; Z90.49 Acquired absence of other specified parts of digestive tract; Z89.422 Acquired absence of other left toe(s); Z89.412 Acquired absence of left great toe; Z86.73 Personal history of transient ischemic attack (TIA), and cerebral infarction without residual deficits; Z68.30 Body mass index [BMI] 30.0-30.9, adult; Z88.0 Allergy status to penicillin; Z88.1 Allergy status to other antibiotic agents; Z79.899 Other long term (current) drug therapy; Z79.4 Long term (current) use of insulin

== ENCOUNTER 2019-10-26 14:05 | Emergency (ER) | payer MEDICARE, OTHER ==
[~2019-10-26] VITALS: Ht 182.8 cm; Wt 114.8 kg
[2019-10-26 14:20] VITALS: BP 124/78
[2019-10-26 15:09] LABS: BASO % 0.5 % (0.0-1.0); EOS # 0.3 10*3/uL (0.0-0.4); EOS % 3.1 % (1.0-4.0); HEMATOCRIT 36.6 % (42.0-52.0); HEMOGLOBIN 11.9 g/dl (14.0-18.0); LYMPH # 2.2 10*3/uL (1.3-4.4); LYMPH % 26.9 % (27.0-41.0); MEAN CELL VOLUME 90.4 fl (80.0-94.0); MEAN CORPUSCULAR HGB 29.4 pg (27.0-31.0); MEAN CORPUSCULAR HGB CONC 32.5 g/dl (33.0-37.0); MEAN PLATELET VOLUME 11.1 fl (9.6-12.3); MONO # 0.6 10*3/uL (0.1-1.0); MONO % 6.6 % (3.0-9.0); NEUT # 5.1 10*3/uL (2.3-7.9); NEUT % 62.2 % (47.0-73.0); PLATELET COUNT AUTOMATED 164 10*3/uL (130-400); RED BLOOD COUNT 4.05 10*6/uL (4.50-5.90); RED CELL DISTRI WIDTH 16.1 % (0-14.5); WHITE BLOOD COUNT 8.3 10*3/uL (4.8-10.8)
[2019-10-26 15:25] LABS: ALKALINE PHOSPHATASE 167 U/L (45-117); BUN 30 mg/dl (7-24); CHLORIDE 109 mmol/L (98-107); CREATININE 1.58 mg/dL (0.70-1.30); POTASSIUM 4.6 mmol/L (3.5-5.1); SGOT/AST 36 IU/L (3-35); SGPT/ALT 37 U/L (12-78); SODIUM 140 mmol/L (136-145); TOTAL PROTEIN 6.5 gm/dL (6.4-8.2)
[2019-10-26 15:28] LABS: ACT PARTIAL THROMBO TIME 39.3 SECONDS (20.0-32.1); INTERNATIONAL NORM RATIO 1.6 (2.0-3.5)
[2019-10-26 15:29] LABS: TROPONIN I < 0.015 ng/ml (<0.045)
[2019-10-26] MEDS ORDERED: ZITHROMAX250 MG PO (17:36)
== END 2019-10-26 17:43 | disposition home or self-care (01) ==
LOC: ED 14:05
PROVIDERS: Emergency Medicine
DX: J44.9 Chronic obstructive pulmonary disease, unspecified (principal); I25.10 Atherosclerotic heart disease of native coronary artery without angina pectoris; E11.22 Type 2 diabetes mellitus with diabetic chronic kidney disease; I13.0 Hypertensive heart and chronic kidney disease with heart failure and stage 1 through stage 4 chronic kidney disease, or unspecified chronic kidney disease; N18.3 Chronic kidney disease, stage 3 (moderate); I50.32 Chronic diastolic (congestive) heart failure; I25.2 Old myocardial infarction; E78.5 Hyperlipidemia, unspecified; Z88.1 Allergy status to other antibiotic agents; Z88.0 Allergy status to penicillin; Z79.899 Other long term (current) drug therapy; Z79.4 Long term (current) use of insulin; E11.40 Type 2 diabetes mellitus with diabetic neuropathy, unspecified; K21.9 Gastro-esophageal reflux disease without esophagitis; E03.9 Hypothyroidism, unspecified; E66.9 Obesity, unspecified; Z68.30 Body mass index [BMI] 30.0-30.9, adult; Z89.422 Acquired absence of other left toe(s); Z89.412 Acquired absence of left great toe; Z87.891 Personal history of nicotine dependence; Z86.73 Personal history of transient ischemic attack (TIA), and cerebral infarction without residual deficits

== ENCOUNTER 2019-10-29 12:59 | Emergency (ER) | payer MEDICARE, OTHER ==
[~2019-10-29] VITALS: Ht 182.8 cm; Wt 115.2 kg
[2019-10-29 13:03] VITALS: BP 127/90
[2019-10-29] MEDS ORDERED: KEFLEX500 M1 PO ×2 (13:30→13:33)
[2019-10-29] MEDS ORDERED: Motrin,Rufen800 MG PO (13:33)
[2019-10-29] MEDS ORDERED: NORCO 10-325 T1 EACH PO (13:55)
== END 2019-10-29 13:39 | disposition home or self-care (01) ==
LOC: ED 12:59
DX: K02.9 Dental caries, unspecified (principal); R11.0 Nausea; I25.10 Atherosclerotic heart disease of native coronary artery without angina pectoris; J44.9 Chronic obstructive pulmonary disease, unspecified; K21.9 Gastro-esophageal reflux disease without esophagitis; E66.9 Obesity, unspecified; E03.9 Hypothyroidism, unspecified; E78.5 Hyperlipidemia, unspecified; M10.9 Gout, unspecified; I13.0 Hypertensive heart and chronic kidney disease with heart failure and stage 1 through stage 4 chronic kidney disease, or unspecified chronic kidney disease; E11.22 Type 2 diabetes mellitus with diabetic chronic kidney disease; N18.3 Chronic kidney disease, stage 3 (moderate); I50.32 Chronic diastolic (congestive) heart failure; Z88.0 Allergy status to penicillin; Z88.1 Allergy status to other antibiotic agents; Z79.899 Other long term (current) drug therapy; Z79.4 Long term (current) use of insulin; Z68.34 Body mass index [BMI] 34.0-34.9, adult; Z86.73 Personal history of transient ischemic attack (TIA), and cerebral infarction without residual deficits

== ENCOUNTER → 2019-11-01 | Outpatient (CLI) | payer MEDICARE, OTHER ==
[~2019-11-01] MED LIST changes: +Motrin,Rufen800 MG PO; +NORCO 10-325 T1 EACH PO
[2019-11-01 10:52] LABS: ALBUMIN 3.2 gm/dl (3.1-4.5); CREATININE 1.67 mg/dL (0.70-1.30); PHOSPHOROUS 3.4 mg/dL (2.5-4.9); TOTAL PROTEIN 6.9 gm/dL (6.4-8.2)
== END | disposition home or self-care (01) ==
LOC: RESCLI 02:18
PROVIDERS: Internal Medicine
DX: Z12.11 Encounter for screening for malignant neoplasm of colon (principal); E11.65 Type 2 diabetes mellitus with hyperglycemia; E11.22 Type 2 diabetes mellitus with diabetic chronic kidney disease; N18.3 Chronic kidney disease, stage 3 (moderate); J30.2 Other seasonal allergic rhinitis; J44.9 Chronic obstructive pulmonary disease, unspecified; E03.9 Hypothyroidism, unspecified; L20.9 Atopic dermatitis, unspecified; E78.5 Hyperlipidemia, unspecified; K21.9 Gastro-esophageal reflux disease without esophagitis; K58.9 Irritable bowel syndrome, unspecified; M10.9 Gout, unspecified; G62.9 Polyneuropathy, unspecified; E83.42 Hypomagnesemia; I48.19 Other persistent atrial fibrillation; Z79.899 Other long term (current) drug therapy; Z87.891 Personal history of nicotine dependence; Z88.1 Allergy status to other antibiotic agents; Z90.49 Acquired absence of other specified parts of digestive tract

== ENCOUNTER 2019-11-11 16:44 | Emergency (ER) | payer MEDICARE, OTHER ==
[~2019-11-11] VITALS: Ht 182.8 cm; Wt 115.2 kg
[2019-11-11 16:51] VITALS: BP 103/44
== END 2019-11-11 17:15 | disposition left against medical advice (07) ==
LOC: ED 16:44
DX: S99.822A Other specified injuries of left foot, initial encounter (principal); R11.10 Vomiting, unspecified; R10.9 Unspecified abdominal pain; M54.5 Low back pain; Z53.21 Procedure and treatment not carried out due to patient leaving prior to being seen by health care provider; X58.XXXA Exposure to other specified factors, initial encounter; Y93.89 Activity, other specified; Y92.89 Other specified places as the place of occurrence of the external cause; Y99.8 Other external cause status

== ENCOUNTER 2019-11-12 12:01 | Emergency (ER) | payer MEDICARE, OTHER ==
[~2019-11-12] VITALS: Wt 117.9 kg
[2019-11-12 12:40] LABS: BASO % 0.8 % (0.0-1.0); EOS # 0.3 10*3/uL (0.0-0.4); EOS % 5.6 % (1.0-4.0); HEMATOCRIT 34.7 % (42.0-52.0); HEMOGLOBIN 11.3 g/dl (14.0-18.0); LYMPH # 1.3 10*3/uL (1.3-4.4); MEAN CELL VOLUME 91.6 fl (80.0-94.0); MEAN CORPUSCULAR HGB 29.8 pg (27.0-31.0); MEAN CORPUSCULAR HGB CONC 32.6 g/dl (33.0-37.0); MEAN PLATELET VOLUME 11.3 fl (9.6-12.3); MONO # 0.4 10*3/uL (0.1-1.0); MONO % 7.8 % (3.0-9.0); NEUT # 3.1 10*3/uL (2.3-7.9); NEUT % 59.6 % (47.0-73.0); PLATELET COUNT AUTOMATED 154 10*3/uL (130-400); RED BLOOD COUNT 3.79 10*6/uL (4.50-5.90); RED CELL DISTRI WIDTH 15.3 % (0-14.5); WHITE BLOOD COUNT 5.2 10*3/uL (4.8-10.8)
[2019-11-12 12:52] LABS: ACT PARTIAL THROMBO TIME 37.1 SECONDS (20.0-32.1); INTERNATIONAL NORM RATIO 1.4 (2.0-3.5)
[2019-11-12 12:55] LABS: ALBUMIN 3.1 gm/dl (3.1-4.5); ALKALINE PHOSPHATASE 143 U/L (45-117); BUN 45 mg/dl (7-24); CHLORIDE 109 mmol/L (98-107); CREATININE 1.72 mg/dL (0.70-1.30); LIPASE 290 U/L (73-393); POTASSIUM 4.8 mmol/L (3.5-5.1); SGOT/AST 55 IU/L (3-35); SGPT/ALT 59 U/L (12-78); SODIUM 139 mmol/L (136-145); TOTAL PROTEIN 6.2 gm/dL (6.4-8.2); TROPONIN I < 0.015 ng/ml (<0.045)
[2019-11-12 13:19] LABS: BILIRUBIN NEGATIVE (NEGATIVE); BLOOD TRACE-INTACT (NEGATIVE); CLARITY CLEAR (CLEAR); COLOR YELLOW (YELLOW); GLUCOSE 1+ (NEGATIVE); KETONE NEGATIVE (NEGATIVE); LEUKO ESTERASE NEGATIVE (NEGATIVE); NITRITE NEGATIVE (NEGATIVE); SPECIFIC GRAVITY 1.025 (1.005-1.030); UROBILINOGEN 0.2 E.U./dl (0.2-1.0)
[2019-11-12 13:32] LABS: MUCOUS 1+
[2019-11-12 15:45] VITALS: BP 122/78
== END 2019-11-12 17:25 | disposition home or self-care (01) ==
LOC: ED 12:01
PROVIDERS: Nurse Practitioner Family
DX: R11.2 Nausea with vomiting, unspecified (principal); E83.42 Hypomagnesemia; R19.7 Diarrhea, unspecified; I25.10 Atherosclerotic heart disease of native coronary artery without angina pectoris; J44.9 Chronic obstructive pulmonary disease, unspecified; I25.2 Old myocardial infarction; E78.5 Hyperlipidemia, unspecified; E11.22 Type 2 diabetes mellitus with diabetic chronic kidney disease; N18.9 Chronic kidney disease, unspecified; Z88.1 Allergy status to other antibiotic agents; Z88.8 Allergy status to other drugs, medicaments and biological substances; Z79.899 Other long term (current) drug therapy; Z79.2 Long term (current) use of antibiotics; Z79.4 Long term (current) use of insulin; Z89.422 Acquired absence of other left toe(s); Z90.49 Acquired absence of other specified parts of digestive tract; Z87.891 Personal history of nicotine dependence

== ENCOUNTER 2019-12-05 12:03 | Inpatient (IN) | payer MEDICARE, OTHER ==
[~2019-12-05] VITALS: Ht 182.9 cm; Wt 107.5 kg
[2019-12-05 12:17] VITALS: BP 169/82
[2019-12-05 13:02] LABS: BASO % 0.6 % (0.0-1.0); EOS # 0.4 10*3/uL (0.0-0.4); HEMATOCRIT 35.2 % (42.0-52.0); HEMOGLOBIN 11.4 g/dl (14.0-18.0); LYMPH # 1.8 10*3/uL (1.3-4.4); LYMPH % 25.5 % (27.0-41.0); MEAN CELL VOLUME 92.9 fl (80.0-94.0); MEAN CORPUSCULAR HGB 30.1 pg (27.0-31.0); MEAN CORPUSCULAR HGB CONC 32.4 g/dl (33.0-37.0); MEAN PLATELET VOLUME 10.9 fl (9.6-12.3); MONO # 0.5 10*3/uL (0.1-1.0); NEUT # 4.2 10*3/uL (2.3-7.9); NEUT % 59.9 % (47.0-73.0); PLATELET COUNT AUTOMATED 142 10*3/uL (130-400); RED BLOOD COUNT 3.79 10*6/uL (4.50-5.90); RED CELL DISTRI WIDTH 15.2 % (0-14.5); WHITE BLOOD COUNT 7.1 10*3/uL (4.8-10.8)
[2019-12-05 13:10] LABS: ACT PARTIAL THROMBO TIME 37.8 SECONDS (20.0-32.1); INTERNATIONAL NORM RATIO 1.7 (2.0-3.5)
[2019-12-05 13:19] LABS: ALBUMIN 3.2 gm/dl (3.1-4.5); ALKALINE PHOSPHATASE 135 U/L (45-117); BUN 40 mg/dl (7-24); CHLORIDE 115 mmol/L (98-107); CREATININE 1.53 mg/dL (0.70-1.30); POTASSIUM 5.2 mmol/L (3.5-5.1); SGOT/AST 17 IU/L (3-35); SGPT/ALT 34 U/L (12-78); SODIUM 139 mmol/L (136-145); TOTAL PROTEIN 6.3 gm/dL (6.4-8.2)
[2019-12-05 13:20] LABS: TROPONIN I < 0.015 ng/ml (<0.045)
[2019-12-05 14:50] VITALS: BP 159/73
--- NOTE | 2019-12-05 14:50 | NUR ---
A 69, admitted to , under the services of SHEY Claudio DO with a diagnosis of CHEST PAIN. Chief complaint is CHEST PAIN. Patient arrived via bed from ER. Monitor applied. Initial assessment completed. Vital signs taken and recorded. SHEY CLAUDIO DO notified of admission to the unit. Orders received. See assessment for past medical history, medications and allergies. Patient and/or family oriented to unit. [address] visitation policy reviewed. Clothing/patient valuable form completed. RADHA BRONSON
[2019-12-05 14:54] VITALS: BP 159/73
[2019-12-05] MEDS ORDERED: Klor-Con/Ef25 MEQ PO (15:20)
[2019-12-05] MEDS ORDERED: LATANOPROST2.5 ML OP (15:20)
[2019-12-05] MEDS ORDERED: COREG6.25 MG PO (15:20)
[2019-12-05] MEDS ORDERED: TIMOLOL MALEATE15 ML OPH (15:21)
--- NOTE | 2019-12-05 16:30 | NUR ---
PT SITTING UP ON SIDE OF BED. RESP-EASY AND REGULAR. EATING DINNER. NO C/O AT THIS TIME. CALL LIGHT IN REACH. SEE SHIFT ASSESSMENT.
[2019-12-05 20:00] VITALS: BP 125/69
[2019-12-06] VITALS: BP 111/55
--- NOTE | 2019-12-06 01:56 | NUR ---
PATIENT STATES HE IS HAVING CHEST PAIN. VITALS STABLE. DENIES SHORTNESS OF BREATH. UPON REENTERING ROOM, PATIENT SLEEPING WITH NO S/S OF DISTRESS. RESPS EASY AND REGULAR
[2019-12-06 01:59] VITALS: BP 126/66
--- NOTE | 2019-12-06 05:42 | NUR ---
PATIENT STATES THAT LAST NIGHT WHEN HE SAID THAT HE HAD CHEST PAIN, HE TOOK HIS HOME NITRO PILLS THAT HE HAS AT HIS BEDSIDE. THIS RN EDUCATED PATIENT ON IMPORTANCE OF NOT TAKING ANYTHING FROM HOME THAT HE IS NOT GIVEN BY A NURSE HERE. NITRO PILLS LOCKED IN [place].
--- NOTE | 2019-12-06 05:52 | NUR ---
DEBORAH SANTACRUZ [id number] Please refer to the physician's history and physical for past medical history, comorbid conditions, and allergies. Diagnosis: CHEST PAIN Isauro Score: 17,AT RISK WOUND DESCRIPTIONS: Wound Number: 1 Location of the wound: top of left foot Type of wound: stage 1 Size: 1.5cm x 2.3cm x <0.1cm Tunneling: none Undermining: none Sinus Tract: none Presence of Exudate: none Amount: None Color: Red Odor: None Periwound Skin Appearance: Normal Wound edges: closed Pain (associated with wound): none at time of assessment How does patient state this happened? 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 pt stated he is waiting for his new shoe to be made Bilateral heels are red and blanchable at time of assessment. No open areas noted at time of assessment. no drainage noted at time of assessment. Surface the patient is resting on: Isoflex SKIN PREVENTION RECOMMENDATION: 1. Pressure redistribution support surface as appropriate 2. Elevate heels 3. Remove boots/TEDS every shift and reapply 4. Head of bed 30 degrees as tolerated 5. Assess nutrition and hydration 6. Manage moisture 7. Avoid the use of containment devices while in bed 8. Use absorptive products on surfaces limit layers of linens on bed 9. Turn and reposition every 1-2 hours in bed and every 1 hour in chair as tolerated 10. Weight shifts every 15 minutes while up in chair 11. Offloading with pillows or device to keep heels elevated off bed 12. Monitor skin at least every shift 13. Inspect under medical devices twice a day WOUND TREATMENT RECOMMENDATIONS: Dressing change: Apply sureprep to left top of foot along amputation healed incison and top of left foot then cover with optifoam gentle daily and prn for soiling. Heel raiser pro boots to bilateral feet while in bed.
[2019-12-06 06:39] LABS: ALBUMIN 3.3 gm/dl (3.1-4.5); ALKALINE PHOSPHATASE 130 U/L (45-117); BUN 37 mg/dl (7-24); CHLORIDE 116 mmol/L (98-107); CHOLESTEROL 155 mg/dL (<200); CREATININE 1.29 mg/dL (0.70-1.30); FREE T4 0.81 ng/dl (0.76-1.46); HDL CHOLESTEROL 35 mg/dl (40-60); PHOSPHOROUS 4.3 mg/dL (2.5-4.9); POTASSIUM 4.9 mmol/L (3.5-5.1); SGOT/AST 14 IU/L (3-35); SGPT/ALT 29 U/L (12-78); SODIUM 140 mmol/L (136-145); TOTAL PROTEIN 6.5 gm/dL (6.4-8.2); TRIGLYCERIDES 486 mg/dl (<150)
[2019-12-06 06:42] LABS: BASO # 0.1 10*3/uL (0.0-0.1); BASO % 0.8 % (0.0-1.0); EOS # 0.5 10*3/uL (0.0-0.4); EOS % 7.7 % (1.0-4.0); HEMATOCRIT 37.3 % (42.0-52.0); LYMPH # 1.7 10*3/uL (1.3-4.4); MEAN CELL VOLUME 92.8 fl (80.0-94.0); MEAN CORPUSCULAR HGB 29.9 pg (27.0-31.0); MEAN CORPUSCULAR HGB CONC 32.2 g/dl (33.0-37.0); MEAN PLATELET VOLUME 11.6 fl (9.6-12.3); MONO # 0.4 10*3/uL (0.1-1.0); MONO % 6.7 % (3.0-9.0); NEUT # 3.4 10*3/uL (2.3-7.9); NEUT % 55.7 % (47.0-73.0); PLATELET COUNT AUTOMATED 145 10*3/uL (130-400); RED BLOOD COUNT 4.02 10*6/uL (4.50-5.90); RED CELL DISTRI WIDTH 15.1 % (0-14.5); WHITE BLOOD COUNT 6.1 10*3/uL (4.8-10.8)
[2019-12-06 07:13] LABS: VITAMIN D, 25-HYDROXY 32.6 ng/mL (30-100)
--- NOTE | 2019-12-06 07:53 | NUR ---
Nursing screen received and chart reviewed. Patient admitted for increased chest pain. If patient has a decline in ADLs, functional transfers, or mobility, please send OT orders when appropriate. Thank you. Deidra Scott, OTR/L
[2019-12-06 08:00] VITALS: BP 132/78
--- NOTE | 2019-12-06 08:00 | NUR ---
PHYSICAL THERAPY Screen received pt from home admit with chest pain please consult PT if pt has decline in functional status from baseline thank you Marlee Shearer PT
--- NOTE | 2019-12-06 08:10 | NUR ---
DR. THACKER IN TO SEE PT.
--- NOTE | 2019-12-06 08:15 | NUR ---
PT SITTING UP AT SIDE OF BED. BERHANE DANIELS SEE PT. RESP-EASY AND REGULAR. NO C/O AT THIS TIME. CALL LIGHT IN REACH. SEE SHIFT ASSESSMENT.
--- NOTE | 2019-12-06 08:30 | NUR ---
TOLERATED ROUTINE MEDS WITH NO PROBLEM. MEDICATED WITH MOM PER BERHANE MATTA ORDER TO GIVE. CALL LIGHT IN REACH.
--- NOTE | 2019-12-06 09:00 | NUR ---
Heater Operator in to talk to patient. Patient states lives at home with alone. There are no steps in the home. [facility]ician[facility] health services: has services 5 days a week Patient's level of ADLs: INDEPENDENT Patient has working utilities: all working DME: walker Follow-up physician's appointment after d/c: will be made by hospitalist nurse director upon discharge Does patient want to access PORTAL?: no Discharge plan discussed with patient he is lives at home alone, is independent in adls and ambulation, he home services set up, he will return home when medically stable and denies any other home needs. STEVAN CASPER
[2019-12-06 12:00] VITALS: BP 107/56
--- NOTE | 2019-12-06 12:40 | NUR ---
PT C/O LOWER BACK PAIN, RATES PAIN 5 ON PAIN SCALE. MEDICATED WITH TYLENOL PO PER PRN ORDER, SEE EMAR. CALL LIGHT IN REACH.
--- NOTE | 2019-12-06 13:15 | NUR ---
RESTING IN BEED WITH EYES CLOSED. MEDICATION SEEMS TO BE EFFECTIVE. CALL LIGTH IN REACH.
--- NOTE | 2019-12-06 14:19 | NUR ---
CALLED BERHANE MADE AWARE PT MAG IS DONE RUNNING. SHE IS GOING TO DISCHARGE HIME.
--- NOTE | 2019-12-06 14:20 | NUR ---
Discharge instructions reviewed with patient/family. Patient receptive and verbalizes understanding. Follow-up care arranged. Written instructions given to patient/family. HEPLOCK REMOVED 2X2 APPLIED. MONITOR REMOVED. RADHA BRONSON
--- NOTE | 2019-12-06 14:30 | NUR ---
PT AMBULATORY OFF THE FLOOR WITH WALKER FOR DISCHARGE.
[2019-12-06] MEDS ORDERED: IMDUR SA30 MG PO (14:31)
[2019-12-19] MEDS ORDERED: PROVENTIL HFA6.7 GM INH (15:12)
[2019-12-19] MEDS ORDERED: PREDNISONE20 M1 PO (15:12)
[2019-12-19] MEDS ORDERED: TESSALON PERLE100 M1 PO (15:12)
== END 2019-12-06 14:30 | disposition home or self-care (01) | DRG 313 ==
LOC: CANPREER → ED 12:03 → EDHOLD 13:19 → 4E 13:32
PROVIDERS: Emergency Medicine; Registered Nurse; ADMIT Internal Medicine
DX: R07.89 Other chest pain (principal); I50.32 Chronic diastolic (congestive) heart failure; D68.59 Other primary thrombophilia; I13.0 Hypertensive heart and chronic kidney disease with heart failure and stage 1 through stage 4 chronic kidney disease, or unspecified chronic kidney disease; M86.671 Other chronic osteomyelitis, right ankle and foot; I25.10 Atherosclerotic heart disease of native coronary artery without angina pectoris; E83.42 Hypomagnesemia; K21.9 Gastro-esophageal reflux disease without esophagitis; N40.0 Benign prostatic hyperplasia without lower urinary tract symptoms; M10.9 Gout, unspecified; F41.1 Generalized anxiety disorder; N18.3 Chronic kidney disease, stage 3 (moderate); E11.22 Type 2 diabetes mellitus with diabetic chronic kidney disease; E78.5 Hyperlipidemia, unspecified; E87.5 Hyperkalemia; J44.9 Chronic obstructive pulmonary disease, unspecified; E11.42 Type 2 diabetes mellitus with diabetic polyneuropathy; E11.69 Type 2 diabetes mellitus with other specified complication; F32.9 Major depressive disorder, single episode, unspecified; I48.91 Unspecified atrial fibrillation; Z96.641 Presence of right artificial hip joint; T46.3X5A Adverse effect of coronary vasodilators, initial encounter; R42 Dizziness and giddiness; Y92.89 Other specified places as the place of occurrence of the external cause; Z79.4 Long term (current) use of insulin; Z88.1 Allergy status to other antibiotic agents; Z88.8 Allergy status to other drugs, medicaments and biological substances; Z79.899 Other long term (current) drug therapy; Z86.73 Personal history of transient ischemic attack (TIA), and cerebral infarction without residual deficits; Z95.5 Presence of coronary angioplasty implant and graft; Z90.49 Acquired absence of other specified parts of digestive tract; Z89.422 Acquired absence of other left toe(s); Z87.891 Personal history of nicotine dependence; Z82.49 Family history of ischemic heart disease and other diseases of the circulatory system; Z83.3 Family history of diabetes mellitus; Z80.0 Family history of malignant neoplasm of digestive organs

== ENCOUNTER 2019-12-08 22:15 | Emergency (ER) | payer MEDICARE, OTHER ==
[~2019-12-08] VITALS: Ht 182.8 cm; Wt 119.7 kg
[~2019-12-08 22:15] MED LIST changes: +Klor-Con/Ef25 MEQ PO; +LATANOPROST2.5 ML OP; +TIMOLOL MALEATE15 ML OPH
[2019-12-19] MEDS ORDERED: PREDNISONE20 M1 PO (15:12)
[2019-12-19] MEDS ORDERED: PROVENTIL HFA6.7 GM INH (15:12)
[2019-12-19] MEDS ORDERED: TESSALON PERLE100 M1 PO (15:12)
== END 2019-12-08 22:51 | disposition home or self-care (01) ==
LOC: ED 22:15
DX: S90.851A Superficial foreign body, right foot, initial encounter (principal); I13.0 Hypertensive heart and chronic kidney disease with heart failure and stage 1 through stage 4 chronic kidney disease, or unspecified chronic kidney disease; E11.22 Type 2 diabetes mellitus with diabetic chronic kidney disease; N18.3 Chronic kidney disease, stage 3 (moderate); I50.32 Chronic diastolic (congestive) heart failure; I25.10 Atherosclerotic heart disease of native coronary artery without angina pectoris; J44.9 Chronic obstructive pulmonary disease, unspecified; K21.9 Gastro-esophageal reflux disease without esophagitis; E78.5 Hyperlipidemia, unspecified; E66.9 Obesity, unspecified; Z79.4 Long term (current) use of insulin; M10.9 Gout, unspecified; E11.43 Type 2 diabetes mellitus with diabetic autonomic (poly)neuropathy; Z88.0 Allergy status to penicillin; Z88.1 Allergy status to other antibiotic agents; Z79.899 Other long term (current) drug therapy; Z86.73 Personal history of transient ischemic attack (TIA), and cerebral infarction without residual deficits; Z68.34 Body mass index [BMI] 34.0-34.9, adult; W22.8XXA Striking against or struck by other objects, initial encounter; Y93.89 Activity, other specified; Y92.89 Other specified places as the place of occurrence of the external cause; Y99.8 Other external cause status

== ENCOUNTER 2019-12-09 11:50 | Emergency (ER) | payer MEDICARE, OTHER ==
[2019-12-09 12:45] LABS: BASO % 0.6 % (0.0-1.0); EOS # 0.3 10*3/uL (0.0-0.4); EOS % 6.5 % (1.0-4.0); HEMATOCRIT 33.9 % (42.0-52.0); HEMOGLOBIN 10.8 g/dl (14.0-18.0); LYMPH # 1.4 10*3/uL (1.3-4.4); LYMPH % 27.3 % (27.0-41.0); MEAN CELL VOLUME 94.7 fl (80.0-94.0); MEAN CORPUSCULAR HGB 30.2 pg (27.0-31.0); MEAN CORPUSCULAR HGB CONC 31.9 g/dl (33.0-37.0); MEAN PLATELET VOLUME 11.7 fl (9.6-12.3); MONO # 0.4 10*3/uL (0.1-1.0); MONO % 7.1 % (3.0-9.0); NEUT # 2.9 10*3/uL (2.3-7.9); NEUT % 56.7 % (47.0-73.0); PLATELET COUNT AUTOMATED 142 10*3/uL (130-400); RED BLOOD COUNT 3.58 10*6/uL (4.50-5.90); RED CELL DISTRI WIDTH 14.9 % (0-14.5); WHITE BLOOD COUNT 5.1 10*3/uL (4.8-10.8)
[2019-12-09 13:01] LABS: ALBUMIN 3.2 gm/dl (3.1-4.5); CREATININE 1.64 mg/dL (0.70-1.30); TOTAL PROTEIN 6.2 gm/dL (6.4-8.2)
[2019-12-09 13:06] VITALS: BP 100/60
[2019-12-09 13:07] LABS: POTASSIUM 6.5 mmol/L (3.5-5.1)
[2019-12-19] MEDS ORDERED: PROVENTIL HFA6.7 GM INH (15:12)
[2019-12-19] MEDS ORDERED: PREDNISONE20 M1 PO (15:12)
[2019-12-19] MEDS ORDERED: TESSALON PERLE100 M1 PO (15:12)
== END 2019-12-09 15:38 ==
LOC: ED 11:50
PROVIDERS: Emergency Medicine
DX: I95.9 Hypotension, unspecified (principal); R42 Dizziness and giddiness; I25.10 Atherosclerotic heart disease of native coronary artery without angina pectoris; J44.9 Chronic obstructive pulmonary disease, unspecified; K21.9 Gastro-esophageal reflux disease without esophagitis; E78.5 Hyperlipidemia, unspecified; E66.9 Obesity, unspecified; M10.9 Gout, unspecified; E11.43 Type 2 diabetes mellitus with diabetic autonomic (poly)neuropathy; I13.0 Hypertensive heart and chronic kidney disease with heart failure and stage 1 through stage 4 chronic kidney disease, or unspecified chronic kidney disease; E11.22 Type 2 diabetes mellitus with diabetic chronic kidney disease; N18.3 Chronic kidney disease, stage 3 (moderate); I50.32 Chronic diastolic (congestive) heart failure; Z88.1 Allergy status to other antibiotic agents; Z88.0 Allergy status to penicillin; Z79.899 Other long term (current) drug therapy; Z79.4 Long term (current) use of insulin; Z68.34 Body mass index [BMI] 34.0-34.9, adult; Z86.73 Personal history of transient ischemic attack (TIA), and cerebral infarction without residual deficits

== ENCOUNTER 2019-12-15 01:55 | Emergency (ER) | payer MEDICARE, OTHER ==
[~2019-12-15] VITALS: Ht 182.8 cm; Wt 115.2 kg
[2019-12-15 03:07] LABS: BASO % 0.8 % (0.0-1.0); EOS # 0.4 10*3/uL (0.0-0.4); EOS % 7.6 % (1.0-4.0); HEMATOCRIT 32.7 % (42.0-52.0); HEMOGLOBIN 10.5 g/dl (14.0-18.0); LYMPH # 1.4 10*3/uL (1.3-4.4); LYMPH % 27.7 % (27.0-41.0); MEAN CELL VOLUME 95.3 fl (80.0-94.0); MEAN CORPUSCULAR HGB 30.6 pg (27.0-31.0); MEAN CORPUSCULAR HGB CONC 32.1 g/dl (33.0-37.0); MEAN PLATELET VOLUME 11.4 fl (9.6-12.3); MONO # 0.4 10*3/uL (0.1-1.0); MONO % 7.8 % (3.0-9.0); NEUT # 2.8 10*3/uL (2.3-7.9); NEUT % 55.7 % (47.0-73.0); PLATELET COUNT AUTOMATED 131 10*3/uL (130-400); RED BLOOD COUNT 3.43 10*6/uL (4.50-5.90); RED CELL DISTRI WIDTH 15.2 % (0-14.5)
[2019-12-15 03:16] LABS: INTERNATIONAL NORM RATIO 1.3 (2.0-3.5)
[2019-12-15 03:24] LABS: ALBUMIN 3.1 gm/dl (3.1-4.5); ALKALINE PHOSPHATASE 152 U/L (45-117); BUN 42 mg/dl (7-24); CHLORIDE 119 mmol/L (98-107); CREATININE 1.58 mg/dL (0.70-1.30); POTASSIUM 4.9 mmol/L (3.5-5.1); SGOT/AST 21 IU/L (3-35); SGPT/ALT 36 U/L (12-78); SODIUM 147 mmol/L (136-145); TOTAL PROTEIN 6.2 gm/dL (6.4-8.2)
[2019-12-15 03:26] LABS: TROPONIN I < 0.015 ng/ml (<0.045)
[2019-12-15 03:28] LABS: ETHYL ALCOHOL < 3.0 mg/dl (<3)
[2019-12-15 04:41] VITALS: BP 174/88
[2019-12-19] MEDS ORDERED: PROVENTIL HFA6.7 GM INH (15:12)
[2019-12-19] MEDS ORDERED: PREDNISONE20 M1 PO (15:12)
[2019-12-19] MEDS ORDERED: TESSALON PERLE100 M1 PO (15:12)
== END 2019-12-15 06:39 | disposition home or self-care (01) ==
LOC: ED 01:55
PROVIDERS: Emergency Medicine
DX: R11.2 Nausea with vomiting, unspecified (principal); R42 Dizziness and giddiness; I25.10 Atherosclerotic heart disease of native coronary artery without angina pectoris; E11.22 Type 2 diabetes mellitus with diabetic chronic kidney disease; I13.0 Hypertensive heart and chronic kidney disease with heart failure and stage 1 through stage 4 chronic kidney disease, or unspecified chronic kidney disease; N18.3 Chronic kidney disease, stage 3 (moderate); I50.32 Chronic diastolic (congestive) heart failure; J44.9 Chronic obstructive pulmonary disease, unspecified; E11.40 Type 2 diabetes mellitus with diabetic neuropathy, unspecified; K21.9 Gastro-esophageal reflux disease without esophagitis; E66.9 Obesity, unspecified; I25.2 Old myocardial infarction; E78.5 Hyperlipidemia, unspecified; F17.200 Nicotine dependence, unspecified, uncomplicated; Z88.1 Allergy status to other antibiotic agents; Z88.0 Allergy status to penicillin; Z79.899 Other long term (current) drug therapy; Z79.4 Long term (current) use of insulin; Z86.73 Personal history of transient ischemic attack (TIA), and cerebral infarction without residual deficits; Z68.30 Body mass index [BMI] 30.0-30.9, adult; Z90.49 Acquired absence of other specified parts of digestive tract; Z98.61 Coronary angioplasty status; Z89.422 Acquired absence of other left toe(s)

== ENCOUNTER 2019-12-20 07:57 | Inpatient (IN) | payer MEDICARE, OTHER ==
[~2019-12-20] VITALS: Ht 182.8 cm; Wt 114.1 kg
[~2019-12-20 07:57] MED LIST changes: +PROVENTIL HFA6.7 GM INH
[2019-12-20 08:04] VITALS: BP 185/77
[2019-12-20 08:40] LABS: HEMATOCRIT 32.4 % (42.0-52.0); HEMOGLOBIN 10.7 g/dl (14.0-18.0); MEAN CELL VOLUME 91.8 fl (80.0-94.0); MEAN CORPUSCULAR HGB 30.3 pg (27.0-31.0); MEAN PLATELET VOLUME 11.5 fl (9.6-12.3); PLATELET COUNT AUTOMATED 130 10*3/uL (130-400); RED BLOOD COUNT 3.53 10*6/uL (4.50-5.90); RED CELL DISTRI WIDTH 14.5 % (0-14.5); WHITE BLOOD COUNT 8.7 10*3/uL (4.8-10.8)
[2019-12-20 08:45] LABS: ACT PARTIAL THROMBO TIME 41.6 SECONDS (20.0-32.1); INTERNATIONAL NORM RATIO 1.7 (2.0-3.5)
[2019-12-20 08:49] LABS: ALBUMIN 3.4 gm/dl (3.1-4.5); ALKALINE PHOSPHATASE 156 U/L (45-117); BUN 30 mg/dl (7-24); CHLORIDE 104 mmol/L (98-107); CREATININE 1.77 mg/dL (0.70-1.30); LIPASE 118 U/L (73-393); POTASSIUM 5.2 mmol/L (3.5-5.1); SGOT/AST 16 IU/L (3-35); SGPT/ALT 44 U/L (12-78); SODIUM 133 mmol/L (136-145); TOTAL PROTEIN 6.6 gm/dL (6.4-8.2)
[2019-12-20 08:51] LABS: TROPONIN I < 0.015 ng/ml (<0.045)
[2019-12-20 08:53] LABS: ATYPICAL LYMPHS 1 % (0-0); TOTAL CELLS COUNTED 100 #CELLS
[2019-12-20 08:54] LABS: PLATELET SUFFICIENCY NORMAL (NORMAL)
[2019-12-20 08:55] LABS: POLYCHROMASIA SLIGHT
[2019-12-20 10:00] VITALS: BP 164/82
[2019-12-20 10:10] LABS: BILIRUBIN NEGATIVE (NEGATIVE); CLARITY CLEAR (CLEAR); COLOR STRAW (YELLOW); GLUCOSE 3+ (NEGATIVE); KETONE NEGATIVE (NEGATIVE); SPECIFIC GRAVITY 1.015 (1.005-1.030)
[2019-12-20 10:11] LABS: BLOOD 2+ (NEGATIVE); EPITHELIAL CELLS 0-2; LEUKO ESTERASE NEGATIVE (NEGATIVE); NITRITE NEGATIVE (NEGATIVE); UROBILINOGEN 0.2 E.U./dl (0.2-1.0); WBC 0-2 wbc/hpf (0-5)
[2019-12-20 12:00] VITALS: BP 164/78
[2019-12-20 13:53] VITALS: BP 178/78
--- NOTE | 2019-12-20 13:54 | NUR ---
NOTIFIED BERHANE MATTA RESPIRATORY MANAGER OF BP 176/74 MANUAL AND MED REC UPDATED.
--- NOTE | 2019-12-20 14:04 | NUR ---
NOTIFIED BERHANE MATTA OF CRITICAL LACTIC ACID OF 3.2.
--- NOTE | 2019-12-20 14:41 | NUR ---
DEBORAH SANTACRUZ [id number] Please refer to the physician's history and physical for past medical history, comorbid conditions, and allergies. Diagnosis: ACUTE RENAL FAILURE DEHYDRATION HYPERGLYCEMIA Isauro Score: , WOUND DESCRIPTIONS: WOUND #1 LEFT TOP OF FOOT AND WOUND #2 LEFT OUTER SIDE OF FOOT INTACT SCAB NOTED. NO DRAINAGE, ERYTHEMA, EDEMA NOTED AT TIME OF ASSESSMENT. SCARRING NOTED TO TOP OF LEFT FOOT TOWARD ANKLE. PATIENT STATES THAT HE HAS BEEN TAKING GOOD CARE OF HIS SELF AND HIS FEET. Surface the patient is resting on: Position Pro SKIN PREVENTION RECOMMENDATION: 1. Pressure redistribution support surface as appropriate 2. Elevate heels 3. Remove boots/TEDS every shift and reapply 4. Head of bed 30 degrees as tolerated 5. Assess nutrition and hydration 6. Manage moisture 7. Avoid the use of containment devices while in bed 8. Use absorptive products on surfaces limit layers of linens on bed 9. Turn and reposition every 1-2 hours in bed and every 1 hour in chair as tolerated 10. Weight shifts every 15 minutes while up in chair 11. Offloading with pillows or device to keep heels elevated off bed 12. Monitor skin at least every shift 13. Inspect under medical devices twice a day WOUND TREATMENT RECOMMENDATIONS: LEAVE OPEN TO AIR.
[2019-12-20 16:00] VITALS: BP 166/75
--- NOTE | 2019-12-20 16:09 | NUR ---
CALLED BERHANE SANTIAGO FOR BSG OF [phone]. ORDERED TO GIVE 25UNITS INSULIN.
[2019-12-20] MEDS ORDERED: XALATAN 2.5 ML2.5 ML OP (16:20)
--- NOTE | 2019-12-20 16:23 | NUR ---
BP 166/75. NOTIFIED. NO NEW ORDERS REC'D. AT THIS TIME.
--- NOTE | 2019-12-20 19:45 | NUR ---
IN PT ROOM AT THIS TIME TO COMPLETE ASSESSMENT. PT STATES NO COMPLAINTS AT THIS TIME. CALL LIGHT IS WITHIN REACH, WILL CONTINUE TO MONITOR
[2019-12-20 20:00] VITALS: BP 153/82
[2019-12-21] VITALS: BP 130/53
--- NOTE | 2019-12-21 01:02 | NUR ---
24 HR chart check completed.
--- NOTE | 2019-12-21 02:29 | NUR ---
IN PT ROOM DUE TO LIGHT BEING ON, PT WANTS HIS BED RAISED HIGHER BECAUSE IT IS EASIER FOR HIM TO GET UP WHEN HE NEEDS TO USE THE URINAL. I STATE THAT IT IS AGAINST POLICY TO LEAVE A BED RAISED, THAT IT HAS TO BE IN LOWEST POSITION BUT WHEN HE PUTS THE CALL LIGHT ON WE WOULD BE GLAD TO RAISE IT FOR HIM. PT IS NOT HAPPY AND USING INNAPROPRIATE LANGUAGE STATING HE WANTS TO TALK TO THE DOCTOR ABOUT THIS. CALL LIGHT IS WITHIN REACH, WILL CONTINUE TO MONITOR
--- NOTE | 2019-12-21 04:00 | NUR ---
Patient sleeping. Respirations relaxed and easy. Siderails up . [place] on. BROOKS YUNG
[2019-12-21 07:09] LABS: LYMPH # 0.6 10*3/uL (1.3-4.4); LYMPH % 7.2 % (27.0-41.0); MEAN CELL VOLUME 91.2 fl (80.0-94.0); MEAN CORPUSCULAR HGB 30.4 pg (27.0-31.0); MEAN CORPUSCULAR HGB CONC 33.3 g/dl (33.0-37.0); MEAN PLATELET VOLUME 12.1 fl (9.6-12.3); MONO # 0.1 10*3/uL (0.1-1.0); MONO % 1.6 % (3.0-9.0); NEUT # 7.2 10*3/uL (2.3-7.9); PLATELET COUNT AUTOMATED 116 10*3/uL (130-400); RED BLOOD COUNT 3.29 10*6/uL (4.50-5.90); RED CELL DISTRI WIDTH 14.6 % (0-14.5); WHITE BLOOD COUNT 8.1 10*3/uL (4.8-10.8)
[2019-12-21 07:35] LABS: ALBUMIN 3.1 gm/dl (3.1-4.5); CREATININE 1.43 mg/dL (0.70-1.30); PHOSPHOROUS 2.8 mg/dL (2.5-4.9); POTASSIUM 4.6 mmol/L (3.5-5.1)
[2019-12-21 08:00] VITALS: BP 138/66
--- NOTE | 2019-12-21 09:00 | NUR ---
Sales Operations Lead in to talk to patient. Patient states lives at home with alone. There are no steps in the home. [facility]ician[facility] Home health services: nurses and aids and cleaning person Patient's level of ADLs: INDEPENDENT Patient has working utilities: al working DME: walker Follow-up physician's appointment after d/c: will be made by hospitalist nurse director upon discharge Does patient want to access PORTAL?: no Discharge plan discussed with patient he states he lives at home alone, he is independent in ambulation with a walker.he has my care aids 3 days a week and nurses 2 days a week, he also has someone that keeps his home clean, he states he will return home when medically stable and denies any other home needs, case management will follow. STEVAN CASPER
[2019-12-21 12:00] VITALS: BP 143/61
[2019-12-21 16:00] VITALS: BP 157/76
--- NOTE | 2019-12-21 19:30 | NUR ---
IN PT ROOM TO DO HIS ASSESSMENT. PT IS AWARE THAT HE IS HAVING A BRONCH DONE TOMORROW AND IS TO BE NPO AT MIDNIGHT. PT HAS NO COMPLAINTS AT THIS TIME, CALL LIGHT IS WITHIN REACH. WILL CONTINUE TO MONITOR
[2019-12-21 20:00] VITALS: BP 127/87
--- NOTE | 2019-12-21 21:38 | NUR ---
IN PT ROOM AT THIS TIME PASSING MEDS. AFTER SCANNING ALL MEDS AND GOING OVER THEM WITH THE PATIENT HE VERIFIES THAT THEYA RE THE CORRECT MEDS... AFTER GIVIN THE INSULIN PT STATES THAT HE NO LONGER WANTS TO TAKE THE PREDNISONE AND STATES THAT HE WANTS TO REFUSE IT SO THAT HIS BLOOD SUGAR DOES NOT RISE. STATES HE TOLD THE AM NURSE THAT HE WANTED TO REFUSE THAT, SO I WILL PASS IT ALONG IN THE MORNING TO THE NEW NURSE
--- NOTE | 2019-12-21 21:55 | NUR ---
PT IN ROOM UPSET THAT HE STILL IS GETTING THE PREDNISONE. UPDATED THE PATIENT THAT HE CAN "REFUSE" THE MEDICATION IF HE WANTS, WHICH HE STATES HE WILL DO FROM NOW ON.. PT IN ROOM USING AGGRESSIVE LANGUAGE SAYING HE WANTS HIS OWN ROOM THAT HE DOES NOT WANT TO LISTEN TO HIS NEIGHBORS IV ALL NIGHT, THAT HE WILL SLEEP IN THE LOBBY.
[2019-12-22] VITALS (10 sets, daily range): BP systolic 138–179; BP diastolic 57–97
--- NOTE | 2019-12-22 01:19 | NUR ---
24 HR chart check completed.
--- NOTE | 2019-12-22 03:33 | NUR ---
Patient sleeping. Respirations relaxed and easy. Siderails up . [place] on. BROOKS YUNG
[2019-12-22 05:57] LABS: CREATININE 1.53 mg/dL (0.70-1.30); POTASSIUM 4.4 mmol/L (3.5-5.1)
--- NOTE | 2019-12-22 09:00 | NUR ---
case management visits with patient, he will return home when medically stable, denies any needs
[2019-12-23] VITALS: BP 140/56
--- NOTE | 2019-12-23 00:50 | NUR ---
PATIENT MEDICATED WITH A ONE TIME DOSE OF RESTORIL FOR COMPLAINTS OF INSOMNIA AND GETTING A ROOMMATE. WILL CONTINUE TO MONITOR. CALL LIGHT IN REACH.
[2019-12-23 07:33] LABS: CREATININE 1.46 mg/dL (0.70-1.30)
[2019-12-23 08:00] VITALS: BP 168/76
--- NOTE | 2019-12-23 08:12 | NUR ---
PATIENT IS RESTING COMFORTABLY WATCHING TV. PLEASANT AND NO COMPLAINTS AT THIS TIME. RADHA RODAS [facility]
--- NOTE | 2019-12-23 09:00 | NUR ---
case management visits with patient, he states he will return home when medically stable and denies any home needs
--- NOTE | 2019-12-23 10:27 | NUR ---
PATIENT SITTING IN CHAIR TALKING ON HIS PHONE. NO COMPLAINTS AT THIS TIME. RADHA RODAS SPCHANTELLCC
[2019-12-23 12:00] VITALS: BP 152/84
--- NOTE | 2019-12-23 12:00 | NUR ---
PATIENT PLEASANT AND RESTING COMFORTABLY. NO COMPLAINTS AT THIS TIME. WILL CONTINUE TO MONITOR. RADHA HANKINS
--- NOTE | 2019-12-23 13:16 | NUR ---
PATIENT IS SITTING AT THE SIDE OF THE BED READING A NEWSPAPER. PLEASANT TO TAKE CARE OF. NO COMPLAINTS AT THIS TIME. RADHA PAVONCC
[2019-12-23 15:08] LABS: ACID FAST SPEC PROCESSING Concentration (.)
[2019-12-23 16:00] VITALS: BP 164/80
[2019-12-23 20:00] VITALS: BP 158/72
[2019-12-24] VITALS: BP 130/68
--- NOTE | 2019-12-24 06:28 | NUR ---
24 HR chart check completed.
[2019-12-24 08:00] VITALS: BP 130/80
[2019-12-24] MEDS ORDERED: SEPTDS PO (09:38)
[2019-12-24] MEDS ORDERED: PREDNISONE10 MG PO (09:38)
--- NOTE | 2019-12-24 10:05 | NUR ---
[facility] Discharge instructions reviewed with patient/family. Patient receptive and verbalizes understanding. Follow-up care arranged. Written instructions given to patient/family. SÁNCHEZ FIELD
--- NOTE | 2019-12-24 10:16 | NUR ---
[facility] Discharge instructions reviewed with patient/family. Patient receptive and verbalizes understanding. Follow-up care arranged. Written instructions given to patient/family. SÁNCHEZ FIELD
[2020-01-09 16:06] LABS: ORGANISM ID, MOLD Final report (.); RESULT 1 Penicillium species (.)
== END 2019-12-24 10:16 | disposition home or self-care (01) | DRG 190 ==
LOC: ED 07:57 → 4E 09:50 → EDHOLD 09:50 → 4E 12:39
PROVIDERS: Emergency Medicine; Internal Medicine; Internal Medicine Critical Care Medicine; Registered Nurse; ADMIT Family Medicine
PROC: 0BC38ZZ Extirpation of Matter from Right Main Bronchus, Via Natural or Artificial Opening Endoscopic (ICD-10-PCS; principal; 2019-12-22)
PROC: 0BCB8ZZ Extirpation of Matter from Left Lower Lobe Bronchus, Via Natural or Artificial Opening Endoscopic (ICD-10-PCS; principal; 2019-12-22)
PROC: 0BC48ZZ Extirpation of Matter from Right Upper Lobe Bronchus, Via Natural or Artificial Opening Endoscopic (ICD-10-PCS; principal; 2019-12-22)
PROC: 0BC68ZZ Extirpation of Matter from Right Lower Lobe Bronchus, Via Natural or Artificial Opening Endoscopic (ICD-10-PCS; principal; 2019-12-22)
PROC: 0BC88ZZ Extirpation of Matter from Left Upper Lobe Bronchus, Via Natural or Artificial Opening Endoscopic (ICD-10-PCS; principal; 2019-12-22)
PROC: 0BC98ZZ Extirpation of Matter from Lingula Bronchus, Via Natural or Artificial Opening Endoscopic (ICD-10-PCS; principal; 2019-12-22)
PROC: 0BC18ZZ Extirpation of Matter from Trachea, Via Natural or Artificial Opening Endoscopic (ICD-10-PCS; principal; 2019-12-22)
PROC: 0BC58ZZ Extirpation of Matter from Right Middle Lobe Bronchus, Via Natural or Artificial Opening Endoscopic (ICD-10-PCS; principal; 2019-12-22)
PROC: 0BC28ZZ Extirpation of Matter from Carina, Via Natural or Artificial Opening Endoscopic (ICD-10-PCS; principal; 2019-12-22)
PROC: 0BC78ZZ Extirpation of Matter from Left Main Bronchus, Via Natural or Artificial Opening Endoscopic (ICD-10-PCS; principal; 2019-12-22)
DX: J44.0 Chronic obstructive pulmonary disease with (acute) lower respiratory infection (principal); N17.0 Acute kidney failure with tubular necrosis; D68.59 Other primary thrombophilia; E87.2 Acidosis; E44.0 Moderate protein-calorie malnutrition; I13.0 Hypertensive heart and chronic kidney disease with heart failure and stage 1 through stage 4 chronic kidney disease, or unspecified chronic kidney disease; I50.32 Chronic diastolic (congestive) heart failure; I48.21 Permanent atrial fibrillation; J44.1 Chronic obstructive pulmonary disease with (acute) exacerbation; J20.9 Acute bronchitis, unspecified; J98.09 Other diseases of bronchus, not elsewhere classified; E86.0 Dehydration; E87.5 Hyperkalemia; E83.42 Hypomagnesemia; N18.3 Chronic kidney disease, stage 3 (moderate); E78.5 Hyperlipidemia, unspecified; E11.65 Type 2 diabetes mellitus with hyperglycemia; E11.22 Type 2 diabetes mellitus with diabetic chronic kidney disease; N40.0 Benign prostatic hyperplasia without lower urinary tract symptoms; M10.9 Gout, unspecified; F41.1 Generalized anxiety disorder; F32.9 Major depressive disorder, single episode, unspecified; I25.10 Atherosclerotic heart disease of native coronary artery without angina pectoris; M94.0 Chondrocostal junction syndrome [Tietze]; K21.9 Gastro-esophageal reflux disease without esophagitis; E78.00 Pure hypercholesterolemia, unspecified; D69.6 Thrombocytopenia, unspecified; T38.0X5A Adverse effect of glucocorticoids and synthetic analogues, initial encounter; Y92.89 Other specified places as the place of occurrence of the external cause; Z68.34 Body mass index [BMI] 34.0-34.9, adult; Z86.73 Personal history of transient ischemic attack (TIA), and cerebral infarction without residual deficits; I25.2 Old myocardial infarction; Z88.1 Allergy status to other antibiotic agents; Z88.0 Allergy status to penicillin; Z88.8 Allergy status to other drugs, medicaments and biological substances; Z79.4 Long term (current) use of insulin; Z79.899 Other long term (current) drug therapy; Z95.5 Presence of coronary angioplasty implant and graft; Z90.49 Acquired absence of other specified parts of digestive tract; Z89.422 Acquired absence of other left toe(s); Z87.891 Personal history of nicotine dependence; Z83.3 Family history of diabetes mellitus; Z82.49 Family history of ischemic heart disease and other diseases of the circulatory system; Z80.0 Family history of malignant neoplasm of digestive organs; Z79.01 Long term (current) use of anticoagulants

== ENCOUNTER 2020-01-01 08:20 | Emergency (ER) | payer MEDICARE, OTHER ==
[~2020-01-01] VITALS: Wt 106.6 kg
[~2020-01-01 08:20] MED LIST changes: +XALATAN 2.5 ML2.5 ML OP
[2020-01-01 09:10] LABS: BASO % 0.2 % (0.0-1.0); EOS # 0.3 10*3/uL (0.0-0.4); EOS % 5.6 % (1.0-4.0); HEMATOCRIT 35.6 % (42.0-52.0); HEMOGLOBIN 11.2 g/dl (14.0-18.0); LYMPH # 1.5 10*3/uL (1.3-4.4); LYMPH % 28.8 % (27.0-41.0); MEAN CELL VOLUME 96.5 fl (80.0-94.0); MEAN CORPUSCULAR HGB 30.4 pg (27.0-31.0); MEAN CORPUSCULAR HGB CONC 31.5 g/dl (33.0-37.0); MEAN PLATELET VOLUME 11.6 fl (9.6-12.3); MONO # 0.4 10*3/uL (0.1-1.0); MONO % 7.4 % (3.0-9.0); NEUT # 2.9 10*3/uL (2.3-7.9); NEUT % 57.2 % (47.0-73.0); PLATELET COUNT AUTOMATED 116 10*3/uL (130-400); RED BLOOD COUNT 3.69 10*6/uL (4.50-5.90); RED CELL DISTRI WIDTH 14.1 % (0-14.5)
[2020-01-01 09:19] LABS: ACT PARTIAL THROMBO TIME 32.1 SECONDS (20.0-32.1); INTERNATIONAL NORM RATIO 1.1 (2.0-3.5)
[2020-01-01 09:24] LABS: ALBUMIN 2.9 gm/dl (3.1-4.5); ALKALINE PHOSPHATASE 137 U/L (45-117); BUN 34 mg/dl (7-24); CHLORIDE 115 mmol/L (98-107); CREATININE 1.63 mg/dL (0.70-1.30); POTASSIUM 5.7 mmol/L (3.5-5.1); SGOT/AST 25 IU/L (3-35); SGPT/ALT 49 U/L (12-78); SODIUM 142 mmol/L (136-145); TOTAL PROTEIN 6.7 gm/dL (6.4-8.2); TROPONIN I < 0.015 ng/ml (<0.045)
[2020-01-01 11:36] VITALS: BP 162/88; BP 170/90
== END 2020-01-01 11:46 | disposition home or self-care (01) ==
LOC: ED 08:20
PROVIDERS: Emergency Medicine
DX: R10.32 Left lower quadrant pain (principal); R19.7 Diarrhea, unspecified; R06.02 Shortness of breath; R07.9 Chest pain, unspecified; J44.9 Chronic obstructive pulmonary disease, unspecified; I25.10 Atherosclerotic heart disease of native coronary artery without angina pectoris; M86.9 Osteomyelitis, unspecified; E66.9 Obesity, unspecified; E78.5 Hyperlipidemia, unspecified; M10.9 Gout, unspecified; K21.9 Gastro-esophageal reflux disease without esophagitis; I13.0 Hypertensive heart and chronic kidney disease with heart failure and stage 1 through stage 4 chronic kidney disease, or unspecified chronic kidney disease; E11.22 Type 2 diabetes mellitus with diabetic chronic kidney disease; N18.2 Chronic kidney disease, stage 2 (mild); I50.32 Chronic diastolic (congestive) heart failure; Z88.1 Allergy status to other antibiotic agents; Z88.0 Allergy status to penicillin; Z79.899 Other long term (current) drug therapy; Z79.4 Long term (current) use of insulin; Z68.34 Body mass index [BMI] 34.0-34.9, adult; Z87.891 Personal history of nicotine dependence; Z86.73 Personal history of transient ischemic attack (TIA), and cerebral infarction without residual deficits

== ENCOUNTER → 2020-01-11 | Outpatient (CLI) | payer MEDICARE, OTHER ==
[~2020-01-11] MED LIST changes: +NOVOLIN 70100 UNIT/2 SQ
== END | disposition home or self-care (01) ==
LOC: RESCLI 00:17
DX: I10 Essential (primary) hypertension (principal); E11.65 Type 2 diabetes mellitus with hyperglycemia; E03.9 Hypothyroidism, unspecified; E78.5 Hyperlipidemia, unspecified; E83.42 Hypomagnesemia; I48.19 Other persistent atrial fibrillation; K21.9 Gastro-esophageal reflux disease without esophagitis; K58.9 Irritable bowel syndrome, unspecified; J44.9 Chronic obstructive pulmonary disease, unspecified; J30.2 Other seasonal allergic rhinitis; L20.9 Atopic dermatitis, unspecified; M10.9 Gout, unspecified; G62.9 Polyneuropathy, unspecified; F17.210 Nicotine dependence, cigarettes, uncomplicated; Z09 Encounter for follow-up examination after completed treatment for conditions other than malignant neoplasm; Z12.11 Encounter for screening for malignant neoplasm of colon; Z88.8 Allergy status to other drugs, medicaments and biological substances; Z79.899 Other long term (current) drug therapy

== ENCOUNTER 2020-01-17 11:53 | Observation (INO) | payer MEDICARE, OTHER ==
[~2020-01-17] VITALS: Ht 182.8 cm; Wt 111.8 kg
[~2020-01-17 11:53] MED LIST changes: -NOVOLIN 70100 UNIT/2 SQ
[2020-01-17 12:02] VITALS: BP 136/64
[2020-01-17 12:28] LABS: BASO % 0.6 % (0.0-1.0); EOS # 0.4 10*3/uL (0.0-0.4); EOS % 7.6 % (1.0-4.0); HEMATOCRIT 33.9 % (42.0-52.0); HEMOGLOBIN 11.1 g/dl (14.0-18.0); LYMPH # 1.8 10*3/uL (1.3-4.4); LYMPH % 36.9 % (27.0-41.0); MEAN CELL VOLUME 93.1 fl (80.0-94.0); MEAN CORPUSCULAR HGB 30.5 pg (27.0-31.0); MEAN CORPUSCULAR HGB CONC 32.7 g/dl (33.0-37.0); MEAN PLATELET VOLUME 11.4 fl (9.6-12.3); MONO # 0.5 10*3/uL (0.1-1.0); MONO % 9.7 % (3.0-9.0); NEUT # 2.1 10*3/uL (2.3-7.9); NEUT % 44.2 % (47.0-73.0); PLATELET COUNT AUTOMATED 131 10*3/uL (130-400); RED BLOOD COUNT 3.64 10*6/uL (4.50-5.90); RED CELL DISTRI WIDTH 13.9 % (0-14.5); WHITE BLOOD COUNT 4.9 10*3/uL (4.8-10.8)
[2020-01-17 12:32] LABS: ACT PARTIAL THROMBO TIME 26.3 SECONDS (20.0-32.1); INTERNATIONAL NORM RATIO 1.1 (2.0-3.5)
[2020-01-17 12:47] LABS: ALBUMIN 2.8 gm/dl (3.1-4.5); ALKALINE PHOSPHATASE 132 U/L (45-117); BUN 29 mg/dl (7-24); CHLORIDE 104 mmol/L (98-107); CREATININE 1.71 mg/dL (0.70-1.30); POTASSIUM 4.5 mmol/L (3.5-5.1); SGOT/AST 37 IU/L (3-35); SGPT/ALT 58 U/L (12-78); SODIUM 139 mmol/L (136-145); TOTAL PROTEIN 6.1 gm/dL (6.4-8.2)
[2020-01-17 12:48] LABS: TROPONIN I < 0.015 ng/ml (<0.045)
[2020-01-17 13:52] VITALS: BP 155/82
[2020-01-17] MEDS ORDERED: HUMALOG100 UNIT/2 SQ (15:28)
--- NOTE | 2020-01-17 15:52 | NUR ---
[facility] , under the services of DIEGO Coronado DO with a diagnosis of CHEST PAIN. Chief complaint is PAIN. Patient arrived via bed from ER. Monitor applied. Initial assessment completed. Vital signs taken and recorded. DIEGO CORONADO DO notified of admission to the unit. Orders received. See assessment for past medical history, medications and allergies. Patient and/or family oriented to unit. [facility] visitation policy reviewed. Clothing/patient valuable form completed. SÁNCHEZ FIELD
[2020-01-17 16:00] VITALS: BP 132/80
[2020-01-17 20:00] VITALS: BP 152/78
--- NOTE | 2020-01-17 20:16 | NUR ---
1943 RESTING IN BED WATCHING TV. HEP LOCK INTACT. NO DISTRESS NOTED. NO C/O'S VOICED AT PRESENT.
[2020-01-18] VITALS: BP 150/58
--- NOTE | 2020-01-18 02:15 | NUR ---
RESTING IN BED WITH EYES CLOSED. APPEARS TO BE SLEEPING.
--- NOTE | 2020-01-18 06:04 | NUR ---
SLEPT WELL THIS SHIFT. REMAINS WITHOUT C/O'S. CONDITION GUARDED.
[2020-01-18 06:38] LABS: BASO % 0.5 % (0.0-1.0); EOS # 0.4 10*3/uL (0.0-0.4); EOS % 9.6 % (1.0-4.0); HEMATOCRIT 33.2 % (42.0-52.0); LYMPH # 1.4 10*3/uL (1.3-4.4); LYMPH % 35.9 % (27.0-41.0); MEAN CORPUSCULAR HGB 30.8 pg (27.0-31.0); MEAN CORPUSCULAR HGB CONC 33.1 g/dl (33.0-37.0); MEAN PLATELET VOLUME 11.2 fl (9.6-12.3); MONO # 0.3 10*3/uL (0.1-1.0); MONO % 8.3 % (3.0-9.0); NEUT # 1.7 10*3/uL (2.3-7.9); NEUT % 44.9 % (47.0-73.0); PLATELET COUNT AUTOMATED 118 10*3/uL (130-400); RED BLOOD COUNT 3.57 10*6/uL (4.50-5.90); RED CELL DISTRI WIDTH 13.9 % (0-14.5); WHITE BLOOD COUNT 3.9 10*3/uL (4.8-10.8)
[2020-01-18 06:51] LABS: ALBUMIN 2.6 gm/dl (3.1-4.5); ALKALINE PHOSPHATASE 113 U/L (45-117); BUN 27 mg/dl (7-24); CHLORIDE 109 mmol/L (98-107); CREATININE 1.33 mg/dL (0.70-1.30); PHOSPHOROUS 3.6 mg/dL (2.5-4.9); SGOT/AST 28 IU/L (3-35); SGPT/ALT 46 U/L (12-78); SODIUM 141 mmol/L (136-145); TOTAL PROTEIN 5.4 gm/dL (6.4-8.2)
[2020-01-18 08:00] VITALS: BP 138/72
[2020-01-18] MEDS ORDERED: NOVOLIN 70100 UNIT/2 SQ (08:31)
--- NOTE | 2020-01-18 09:00 | NUR ---
case management visits with patient, he states he lives at home alone, he uses a walker to ambulate, he states he has always [facility] several days a week, he states he would like to have [place] [facility], case management will notify [facility] [facility] when patient is discharged
[2020-01-18] MEDS ORDERED: IMDUR SA30 MG PO ×2 (11:41→11:43)
--- NOTE | 2020-01-18 13:30 | NUR ---
Discharge instructions reviewed with patient/family. Patient receptive and verbalizes understanding. Follow-up care arranged. Written instructions given to patient/family. PIPO SOTO
== END 2020-01-18 13:30 | disposition home or self-care (01) ==
LOC: ED 11:53 → 4E 14:21 → EDHOLD 14:21 → 4E 14:36
PROVIDERS: Emergency Medicine; Registered Nurse; ADMIT Internal Medicine
DX: R55 Syncope and collapse (principal); R07.89 Other chest pain; E83.42 Hypomagnesemia; K21.9 Gastro-esophageal reflux disease without esophagitis; N40.0 Benign prostatic hyperplasia without lower urinary tract symptoms; M10.9 Gout, unspecified; I25.10 Atherosclerotic heart disease of native coronary artery without angina pectoris; I13.0 Hypertensive heart and chronic kidney disease with heart failure and stage 1 through stage 4 chronic kidney disease, or unspecified chronic kidney disease; E11.22 Type 2 diabetes mellitus with diabetic chronic kidney disease; N18.3 Chronic kidney disease, stage 3 (moderate); I50.32 Chronic diastolic (congestive) heart failure; F41.1 Generalized anxiety disorder; D68.59 Other primary thrombophilia; E78.5 Hyperlipidemia, unspecified; D64.9 Anemia, unspecified; E44.0 Moderate protein-calorie malnutrition; I48.91 Unspecified atrial fibrillation; Z79.4 Long term (current) use of insulin

== ENCOUNTER 2020-01-26 11:07 | Emergency (ER) | payer MEDICARE, OTHER ==
[~2020-01-26] VITALS: Ht 182.8 cm; Wt 106.1 kg
[~2020-01-26 11:07] MED LIST changes: +NOVOLIN 70100 UNIT/2 SQ
[2020-01-26 11:20] VITALS: BP 135/68
[2020-01-26 11:56] LABS: CREATININE 1.81 mg/dL (0.70-1.30); POTASSIUM 4.6 mmol/L (3.5-5.1)
== END 2020-01-26 14:22 | disposition home or self-care (01) ==
LOC: ED 11:07
PROVIDERS: Emergency Medicine
DX: E11.65 Type 2 diabetes mellitus with hyperglycemia (principal); I25.10 Atherosclerotic heart disease of native coronary artery without angina pectoris; J44.9 Chronic obstructive pulmonary disease, unspecified; K21.9 Gastro-esophageal reflux disease without esophagitis; M10.9 Gout, unspecified; I13.0 Hypertensive heart and chronic kidney disease with heart failure and stage 1 through stage 4 chronic kidney disease, or unspecified chronic kidney disease; E11.22 Type 2 diabetes mellitus with diabetic chronic kidney disease; N18.3 Chronic kidney disease, stage 3 (moderate); I50.32 Chronic diastolic (congestive) heart failure; E78.5 Hyperlipidemia, unspecified; E11.40 Type 2 diabetes mellitus with diabetic neuropathy, unspecified; E66.9 Obesity, unspecified; Z87.891 Personal history of nicotine dependence; Z86.73 Personal history of transient ischemic attack (TIA), and cerebral infarction without residual deficits; Z68.34 Body mass index [BMI] 34.0-34.9, adult

== ENCOUNTER 2020-02-15 12:01 | Emergency (ER) | payer MEDICARE, OTHER ==
[~2020-02-15] VITALS: Ht 182.8 cm; Wt 101.6 kg
[2020-02-15 12:40] LABS: BASO # 0.1 10*3/uL (0.0-0.1); BASO % 1.1 % (0.0-1.0); EOS # 0.5 10*3/uL (0.0-0.4); EOS % 8.8 % (1.0-4.0); HEMATOCRIT 35.3 % (42.0-52.0); HEMOGLOBIN 11.8 g/dl (14.0-18.0); LYMPH # 1.7 10*3/uL (1.3-4.4); LYMPH % 26.7 % (27.0-41.0); MEAN CELL VOLUME 92.4 fl (80.0-94.0); MEAN CORPUSCULAR HGB 30.9 pg (27.0-31.0); MEAN CORPUSCULAR HGB CONC 33.4 g/dl (33.0-37.0); MEAN PLATELET VOLUME 11.5 fl (9.6-12.3); MONO # 0.3 10*3/uL (0.1-1.0); MONO % 5.5 % (3.0-9.0); NEUT # 3.5 10*3/uL (2.3-7.9); NEUT % 57.3 % (47.0-73.0); PLATELET COUNT AUTOMATED 128 10*3/uL (130-400); RED BLOOD COUNT 3.82 10*6/uL (4.50-5.90); RED CELL DISTRI WIDTH 14.1 % (0-14.5); WHITE BLOOD COUNT 6.2 10*3/uL (4.8-10.8)
[2020-02-15 12:53] LABS: INTERNATIONAL NORM RATIO 1.6 (2.0-3.5)
[2020-02-15 12:55] LABS: ALBUMIN 2.8 gm/dl (3.1-4.5); ALKALINE PHOSPHATASE 136 U/L (45-117); BUN 32 mg/dl (7-24); CHLORIDE 103 mmol/L (98-107); CREATININE 1.51 mg/dL (0.70-1.30); LIPASE 165 U/L (73-393); POTASSIUM 4.4 mmol/L (3.5-5.1); SGOT/AST 33 IU/L (3-35); SGPT/ALT 56 U/L (12-78); SODIUM 134 mmol/L (136-145); TOTAL PROTEIN 6.2 gm/dL (6.4-8.2)
[2020-02-15 12:56] LABS: TROPONIN I < 0.015 ng/ml (<0.045)
[2020-02-15 13:16] LABS: BILIRUBIN NEGATIVE (NEGATIVE); BLOOD TRACE-INTACT (NEGATIVE); CLARITY SL CLOUDY (CLEAR); COLOR YELLOW (YELLOW); GLUCOSE 3+ (NEGATIVE); KETONE NEGATIVE (NEGATIVE); LEUKO ESTERASE NEGATIVE (NEGATIVE); NITRITE NEGATIVE (NEGATIVE); UROBILINOGEN 0.2 E.U./dl (0.2-1.0)
[2020-02-15 13:21] LABS: WBC 0-2 wbc/hpf (0-5)
[2020-02-15 18:31] VITALS: BP 159/95
== END 2020-02-15 19:20 | disposition short-term general hospital (02) ==
LOC: ED 12:01
PROVIDERS: Nurse Practitioner Family
DX: I63.9 Cerebral infarction, unspecified (principal); R42 Dizziness and giddiness; I25.10 Atherosclerotic heart disease of native coronary artery without angina pectoris; J44.9 Chronic obstructive pulmonary disease, unspecified; I13.0 Hypertensive heart and chronic kidney disease with heart failure and stage 1 through stage 4 chronic kidney disease, or unspecified chronic kidney disease; E11.22 Type 2 diabetes mellitus with diabetic chronic kidney disease; N18.9 Chronic kidney disease, unspecified; I25.2 Old myocardial infarction; I50.30 Unspecified diastolic (congestive) heart failure; M10.9 Gout, unspecified; F41.9 Anxiety disorder, unspecified; I48.91 Unspecified atrial fibrillation; E78.5 Hyperlipidemia, unspecified; Z88.0 Allergy status to penicillin; Z88.8 Allergy status to other drugs, medicaments and biological substances; Z88.1 Allergy status to other antibiotic agents; Z79.899 Other long term (current) drug therapy; Z79.4 Long term (current) use of insulin; Z90.49 Acquired absence of other specified parts of digestive tract; Z87.891 Personal history of nicotine dependence

== ENCOUNTER 2020-02-20 13:04 | Emergency (ER) | payer MEDICARE, OTHER ==
[~2020-02-20] VITALS: Ht 182.8 cm; Wt 101.6 kg
[2020-02-20 13:57] LABS: BASO # 0.1 10*3/uL (0.0-0.1); BASO % 0.8 % (0.0-1.0); EOS # 0.5 10*3/uL (0.0-0.4); EOS % 7.2 % (1.0-4.0); HEMATOCRIT 35.9 % (42.0-52.0); HEMOGLOBIN 11.7 g/dl (14.0-18.0); LYMPH # 1.9 10*3/uL (1.3-4.4); LYMPH % 29.1 % (27.0-41.0); MEAN CELL VOLUME 93.2 fl (80.0-94.0); MEAN CORPUSCULAR HGB 30.4 pg (27.0-31.0); MEAN CORPUSCULAR HGB CONC 32.6 g/dl (33.0-37.0); MEAN PLATELET VOLUME 11.8 fl (9.6-12.3); MONO # 0.5 10*3/uL (0.1-1.0); MONO % 7.6 % (3.0-9.0); NEUT # 3.4 10*3/uL (2.3-7.9); NEUT % 53.3 % (47.0-73.0); PLATELET COUNT AUTOMATED 129 10*3/uL (130-400); RED BLOOD COUNT 3.85 10*6/uL (4.50-5.90); RED CELL DISTRI WIDTH 14.2 % (0-14.5); WHITE BLOOD COUNT 6.4 10*3/uL (4.8-10.8)
[2020-02-20 14:05] LABS: ACT PARTIAL THROMBO TIME 34.6 SECONDS (20.0-32.1); INTERNATIONAL NORM RATIO 1.7 (2.0-3.5)
[2020-02-20 14:11] LABS: ALBUMIN 2.9 gm/dl (3.1-4.5); ALKALINE PHOSPHATASE 123 U/L (45-117); BUN 33 mg/dl (7-24); CHLORIDE 111 mmol/L (98-107); CREATININE 1.46 mg/dL (0.70-1.30); LIPASE 252 U/L (73-393); POTASSIUM 5.3 mmol/L (3.5-5.1); SGOT/AST 48 IU/L (3-35); SGPT/ALT 54 U/L (12-78); SODIUM 137 mmol/L (136-145); TOTAL PROTEIN 6.2 gm/dL (6.4-8.2)
[2020-02-20 14:12] LABS: TROPONIN I < 0.015 ng/ml (<0.045)
[2020-02-20 15:47] VITALS: BP 158/72
[2020-02-20] MEDS ORDERED: PROTONIX40 MG PO (17:08)
== END 2020-02-20 17:54 | disposition home or self-care (01) ==
LOC: ED 13:04
PROVIDERS: Emergency Medicine
DX: K21.9 Gastro-esophageal reflux disease without esophagitis (principal); R05 Cough; J44.9 Chronic obstructive pulmonary disease, unspecified; I25.10 Atherosclerotic heart disease of native coronary artery without angina pectoris; E11.9 Type 2 diabetes mellitus without complications; I10 Essential (primary) hypertension; I25.2 Old myocardial infarction; E78.5 Hyperlipidemia, unspecified; Z88.1 Allergy status to other antibiotic agents; Z88.0 Allergy status to penicillin; Z79.899 Other long term (current) drug therapy; Z79.2 Long term (current) use of antibiotics; Z96.651 Presence of right artificial knee joint; Z87.891 Personal history of nicotine dependence; Z89.412 Acquired absence of left great toe; Z86.14 Personal history of Methicillin resistant Staphylococcus aureus infection

== ENCOUNTER 2020-02-21 12:28 | Emergency (ER) | payer MEDICARE, OTHER ==
[~2020-02-21] VITALS: Wt 103.9 kg
[2020-02-21 12:47] LABS: BASO % 0.5 % (0.0-1.0); EOS # 0.5 10*3/uL (0.0-0.4); EOS % 6.7 % (1.0-4.0); HEMATOCRIT 36.3 % (42.0-52.0); LYMPH # 1.6 10*3/uL (1.3-4.4); LYMPH % 22.3 % (27.0-41.0); MEAN CELL VOLUME 94.8 fl (80.0-94.0); MEAN CORPUSCULAR HGB 30.3 pg (27.0-31.0); MEAN PLATELET VOLUME 11.5 fl (9.6-12.3); MONO # 0.5 10*3/uL (0.1-1.0); MONO % 6.3 % (3.0-9.0); NEUT # 4.6 10*3/uL (2.3-7.9); NEUT % 63.4 % (47.0-73.0); PLATELET COUNT AUTOMATED 128 10*3/uL (130-400); RED BLOOD COUNT 3.83 10*6/uL (4.50-5.90); RED CELL DISTRI WIDTH 14.3 % (0-14.5); WHITE BLOOD COUNT 7.3 10*3/uL (4.8-10.8)
[2020-02-21 12:57] LABS: ACT PARTIAL THROMBO TIME 34.8 SECONDS (20.0-32.1); INTERNATIONAL NORM RATIO 1.7 (2.0-3.5)
[2020-02-21 13:02] LABS: ALBUMIN 2.9 gm/dl (3.1-4.5); ALKALINE PHOSPHATASE 129 U/L (45-117); BUN 32 mg/dl (7-24); CHLORIDE 109 mmol/L (98-107); CREATININE 1.42 mg/dL (0.70-1.30); POTASSIUM 5.2 mmol/L (3.5-5.1); SGOT/AST 27 IU/L (3-35); SGPT/ALT 50 U/L (12-78); SODIUM 139 mmol/L (136-145); TOTAL PROTEIN 6.1 gm/dL (6.4-8.2)
[2020-02-21 13:03] LABS: TROPONIN I < 0.015 ng/ml (<0.045)
[2020-02-21 15:36] VITALS: BP 167/86
== END 2020-02-21 19:03 | disposition home or self-care (01) ==
LOC: ED 12:28
PROVIDERS: Emergency Medicine
DX: I25.119 Atherosclerotic heart disease of native coronary artery with unspecified angina pectoris (principal); I13.0 Hypertensive heart and chronic kidney disease with heart failure and stage 1 through stage 4 chronic kidney disease, or unspecified chronic kidney disease; I50.32 Chronic diastolic (congestive) heart failure; E11.22 Type 2 diabetes mellitus with diabetic chronic kidney disease; N18.3 Chronic kidney disease, stage 3 (moderate); J44.9 Chronic obstructive pulmonary disease, unspecified; M10.9 Gout, unspecified; E78.5 Hyperlipidemia, unspecified; K21.9 Gastro-esophageal reflux disease without esophagitis; Z88.8 Allergy status to other drugs, medicaments and biological substances; Z88.0 Allergy status to penicillin; Z79.899 Other long term (current) drug therapy; Z79.4 Long term (current) use of insulin; Z90.49 Acquired absence of other specified parts of digestive tract

== ENCOUNTER 2020-03-11 19:07 | Emergency (ER) | payer MEDICARE, OTHER ==
[~2020-03-11] VITALS: Ht 182.8 cm; Wt 100.2 kg
[2020-03-11 19:15] VITALS: BP 158/81
== END 2020-03-11 21:32 | disposition home or self-care (01) ==
LOC: ED 19:07
DX: E11.65 Type 2 diabetes mellitus with hyperglycemia (principal); Z88.8 Allergy status to other drugs, medicaments and biological substances; Z88.0 Allergy status to penicillin; Z88.1 Allergy status to other antibiotic agents; Z79.899 Other long term (current) drug therapy

== ENCOUNTER → 2020-03-12 | Outpatient (CLI) | payer OTHER | END | disposition home or self-care (01) | LOC: LAB 12:10 | DX: E78.00 Pure hypercholesterolemia, unspecified (principal); M86.8X7 Other osteomyelitis, ankle and foot ==

== ENCOUNTER 2020-03-21 09:55 | Emergency (ER) | payer OTHER ==
[~2020-03-21] VITALS: Ht 182.8 cm; Wt 101.6 kg
[2020-03-21 10:39] LABS: BASO # 0.1 10*3/uL (0.0-0.1); BASO % 0.9 % (0.0-1.0); EOS # 0.4 10*3/uL (0.0-0.4); EOS % 8.1 % (1.0-4.0); HEMATOCRIT 34.3 % (42.0-52.0); LYMPH # 1.5 10*3/uL (1.3-4.4); LYMPH % 28.9 % (27.0-41.0); MEAN CELL VOLUME 94.8 fl (80.0-94.0); MEAN CORPUSCULAR HGB 30.7 pg (27.0-31.0); MEAN CORPUSCULAR HGB CONC 32.4 g/dl (33.0-37.0); MEAN PLATELET VOLUME 11.6 fl (9.6-12.3); MONO # 0.4 10*3/uL (0.1-1.0); MONO % 7.8 % (3.0-9.0); NEUT # 2.8 10*3/uL (2.3-7.9); PLATELET COUNT AUTOMATED 120 10*3/uL (130-400); RED BLOOD COUNT 3.62 10*6/uL (4.50-5.90); RED CELL DISTRI WIDTH 13.9 % (0-14.5); WHITE BLOOD COUNT 5.3 10*3/uL (4.8-10.8)
[2020-03-21 10:49] LABS: ACT PARTIAL THROMBO TIME 28.4 SECONDS (20.0-32.1); INTERNATIONAL NORM RATIO 1.3 (2.0-3.5)
[2020-03-21 10:57] LABS: ALBUMIN 2.7 gm/dl (3.1-4.5); ALKALINE PHOSPHATASE 130 U/L (45-117); BUN 37 mg/dl (7-24); CHLORIDE 107 mmol/L (98-107); CREATININE 1.64 mg/dL (0.70-1.30); POTASSIUM 4.9 mmol/L (3.5-5.1); SGOT/AST 145 IU/L (3-35); SGPT/ALT 105 U/L (12-78); SODIUM 139 mmol/L (136-145); TOTAL PROTEIN 5.9 gm/dL (6.4-8.2)
[2020-03-21 10:59] LABS: TROPONIN I < 0.015 ng/ml (<0.045)
[2020-03-21 13:47] VITALS: BP 144/58
== END 2020-03-21 15:26 | disposition home or self-care (01) ==
LOC: ED 09:55
PROVIDERS: Emergency Medicine
DX: R07.89 Other chest pain (principal); R06.02 Shortness of breath; R42 Dizziness and giddiness; E83.42 Hypomagnesemia; I48.91 Unspecified atrial fibrillation; I25.10 Atherosclerotic heart disease of native coronary artery without angina pectoris; J44.9 Chronic obstructive pulmonary disease, unspecified; K21.9 Gastro-esophageal reflux disease without esophagitis; I13.0 Hypertensive heart and chronic kidney disease with heart failure and stage 1 through stage 4 chronic kidney disease, or unspecified chronic kidney disease; E11.22 Type 2 diabetes mellitus with diabetic chronic kidney disease; N18.3 Chronic kidney disease, stage 3 (moderate); I50.32 Chronic diastolic (congestive) heart failure; E66.9 Obesity, unspecified; E78.5 Hyperlipidemia, unspecified; M10.9 Gout, unspecified; Z88.0 Allergy status to penicillin; Z88.1 Allergy status to other antibiotic agents; Z87.891 Personal history of nicotine dependence; Z86.73 Personal history of transient ischemic attack (TIA), and cerebral infarction without residual deficits

== ENCOUNTER 2020-03-26 00:52 | Emergency (ER) | payer OTHER ==
[~2020-03-26] VITALS: Ht 177.8 cm; Wt 115.7 kg
[2020-03-26 01:55] LABS: BASO % 0.5 % (0.0-1.0); EOS # 0.5 10*3/uL (0.0-0.4); EOS % 8.2 % (1.0-4.0); HEMATOCRIT 32.5 % (42.0-52.0); LYMPH # 1.4 10*3/uL (1.3-4.4); LYMPH % 26.1 % (27.0-41.0); MEAN CELL VOLUME 93.1 fl (80.0-94.0); MEAN CORPUSCULAR HGB 30.9 pg (27.0-31.0); MEAN CORPUSCULAR HGB CONC 33.2 g/dl (33.0-37.0); MEAN PLATELET VOLUME 10.7 fl (9.6-12.3); MONO # 0.5 10*3/uL (0.1-1.0); MONO % 8.2 % (3.0-9.0); NEUT # 3.1 10*3/uL (2.3-7.9); NEUT % 55.7 % (47.0-73.0); PLATELET COUNT AUTOMATED 130 10*3/uL (130-400); RED BLOOD COUNT 3.49 10*6/uL (4.50-5.90); WHITE BLOOD COUNT 5.5 10*3/uL (4.8-10.8)
[2020-03-26 02:03] LABS: INTERNATIONAL NORM RATIO 1.2 (2.0-3.5)
[2020-03-26 02:09] LABS: ALBUMIN 2.8 gm/dl (3.1-4.5); ALKALINE PHOSPHATASE 129 U/L (45-117); BUN 35 mg/dl (7-24); CHLORIDE 112 mmol/L (98-107); CREATININE 1.48 mg/dL (0.70-1.30); SGOT/AST 63 IU/L (3-35); SGPT/ALT 73 U/L (12-78); SODIUM 143 mmol/L (136-145); TOTAL PROTEIN 5.8 gm/dL (6.4-8.2)
[2020-03-26 02:10] LABS: TROPONIN I < 0.015 ng/ml (<0.045)
[2020-03-26 04:12] VITALS: BP 152/86
== END 2020-03-26 06:28 | disposition home or self-care (01) ==
LOC: ED 00:52
PROVIDERS: Emergency Medicine
DX: I12.9 Hypertensive chronic kidney disease with stage 1 through stage 4 chronic kidney disease, or unspecified chronic kidney disease (principal); E11.22 Type 2 diabetes mellitus with diabetic chronic kidney disease; N18.3 Chronic kidney disease, stage 3 (moderate); I48.91 Unspecified atrial fibrillation; I25.10 Atherosclerotic heart disease of native coronary artery without angina pectoris; K21.9 Gastro-esophageal reflux disease without esophagitis; M10.9 Gout, unspecified; J44.9 Chronic obstructive pulmonary disease, unspecified; E78.5 Hyperlipidemia, unspecified; F41.9 Anxiety disorder, unspecified; Z88.0 Allergy status to penicillin; Z88.8 Allergy status to other drugs, medicaments and biological substances; Z79.899 Other long term (current) drug therapy; Z79.4 Long term (current) use of insulin; Z90.49 Acquired absence of other specified parts of digestive tract; Z86.73 Personal history of transient ischemic attack (TIA), and cerebral infarction without residual deficits

== ENCOUNTER 2020-03-29 14:01 | Inpatient (IN) | payer OTHER ==
[2020-03-29 14:08] VITALS: BP 110/53
[2020-03-29 15:02] LABS: BASO % 0.7 % (0.0-1.0); EOS # 0.6 10*3/uL (0.0-0.4); EOS % 9.2 % (1.0-4.0); HEMATOCRIT 32.2 % (42.0-52.0); LYMPH # 1.8 10*3/uL (1.3-4.4); LYMPH % 28.9 % (27.0-41.0); MEAN CELL VOLUME 94.4 fl (80.0-94.0); MEAN CORPUSCULAR HGB 31.4 pg (27.0-31.0); MEAN CORPUSCULAR HGB CONC 33.2 g/dl (33.0-37.0); MEAN PLATELET VOLUME 11.1 fl (9.6-12.3); MONO # 0.5 10*3/uL (0.1-1.0); MONO % 7.6 % (3.0-9.0); NEUT # 3.2 10*3/uL (2.3-7.9); NEUT % 52.8 % (47.0-73.0); PLATELET COUNT AUTOMATED 122 10*3/uL (130-400); RED BLOOD COUNT 3.41 10*6/uL (4.50-5.90); RED CELL DISTRI WIDTH 14.2 % (0-14.5); WHITE BLOOD COUNT 6.1 10*3/uL (4.8-10.8)
[2020-03-29 15:12] LABS: INTERNATIONAL NORM RATIO 1.9 (2.0-3.5)
[2020-03-29 15:23] LABS: ALBUMIN 2.7 gm/dl (3.1-4.5); ALKALINE PHOSPHATASE 124 U/L (45-117); BUN 40 mg/dl (7-24); CHLORIDE 109 mmol/L (98-107); CREATININE 1.95 mg/dL (0.70-1.30); LIPASE 147 U/L (73-393); POTASSIUM 4.9 mmol/L (3.5-5.1); SGOT/AST 34 IU/L (3-35); SGPT/ALT 51 U/L (12-78); SODIUM 139 mmol/L (136-145); TOTAL PROTEIN 5.8 gm/dL (6.4-8.2); TROPONIN I < 0.015 ng/ml (<0.045)
--- NOTE | 2020-03-29 15:30 | NUR ---
PT IS RESTING IN BED. NO SIGNS OF ACUTE DISTRESS NOTED. SIDE RAILS UP X2. CALL HERNANDES WITHIN REACH. RESPIRATIONS ARE EASY AND NONLABORED.
--- NOTE | 2020-03-29 16:10 | NUR ---
PT REQUESTING SOMETHING FOR PAIN. DR. MARIA MADE AWARE.
--- NOTE | 2020-03-29 16:45 | NUR ---
DR OBREGON DOWN TO SEE PT. HE IS DISCHARGING PT FROM THE ED.
== END 2020-03-29 18:00 | disposition home or self-care (01) | DRG 682 ==
LOC: ED 14:01 → EDHOLD 16:39
PROVIDERS: Emergency Medicine; ADMIT Internal Medicine
DX: N17.0 Acute kidney failure with tubular necrosis (principal); E43 Unspecified severe protein-calorie malnutrition; I13.0 Hypertensive heart and chronic kidney disease with heart failure and stage 1 through stage 4 chronic kidney disease, or unspecified chronic kidney disease; I50.32 Chronic diastolic (congestive) heart failure; E86.0 Dehydration; I25.10 Atherosclerotic heart disease of native coronary artery without angina pectoris; N40.0 Benign prostatic hyperplasia without lower urinary tract symptoms; N18.3 Chronic kidney disease, stage 3 (moderate); F32.9 Major depressive disorder, single episode, unspecified; F41.1 Generalized anxiety disorder; K21.9 Gastro-esophageal reflux disease without esophagitis; E78.5 Hyperlipidemia, unspecified; E11.22 Type 2 diabetes mellitus with diabetic chronic kidney disease; E11.40 Type 2 diabetes mellitus with diabetic neuropathy, unspecified; M10.9 Gout, unspecified; M50.30 Other cervical disc degeneration, unspecified cervical region; M43.10 Spondylolisthesis, site unspecified; E55.9 Vitamin D deficiency, unspecified; D64.9 Anemia, unspecified; E66.9 Obesity, unspecified; J30.2 Other seasonal allergic rhinitis; E87.8 Other disorders of electrolyte and fluid balance, not elsewhere classified; E11.65 Type 2 diabetes mellitus with hyperglycemia; F17.200 Nicotine dependence, unspecified, uncomplicated; M25.552 Pain in left hip; Z80.0 Family history of malignant neoplasm of digestive organs; Z82.49 Family history of ischemic heart disease and other diseases of the circulatory system; Z83.3 Family history of diabetes mellitus; Z88.0 Allergy status to penicillin; Z88.1 Allergy status to other antibiotic agents; Z79.899 Other long term (current) drug therapy; Z79.01 Long term (current) use of anticoagulants; Z79.4 Long term (current) use of insulin; Z86.73 Personal history of transient ischemic attack (TIA), and cerebral infarction without residual deficits

== ENCOUNTER 2020-04-02 18:10 | Emergency (ER) | payer OTHER ==
[~2020-04-02] VITALS: Ht 182.8 cm; Wt 101.6 kg
[2020-04-02 18:49] VITALS: BP 144/60
== END 2020-04-02 21:56 | disposition home or self-care (01) ==
LOC: ED 18:10
DX: S86.912A Strain of unspecified muscle(s) and tendon(s) at lower leg level, left leg, initial encounter (principal); I12.9 Hypertensive chronic kidney disease with stage 1 through stage 4 chronic kidney disease, or unspecified chronic kidney disease; E11.22 Type 2 diabetes mellitus with diabetic chronic kidney disease; N18.9 Chronic kidney disease, unspecified; K21.9 Gastro-esophageal reflux disease without esophagitis; I48.91 Unspecified atrial fibrillation; I25.10 Atherosclerotic heart disease of native coronary artery without angina pectoris; M10.9 Gout, unspecified; E78.5 Hyperlipidemia, unspecified; Z88.8 Allergy status to other drugs, medicaments and biological substances; Z88.0 Allergy status to penicillin; Z88.1 Allergy status to other antibiotic agents; Z79.899 Other long term (current) drug therapy; Z79.4 Long term (current) use of insulin; Z87.891 Personal history of nicotine dependence; X58.XXXA Exposure to other specified factors, initial encounter; Y93.89 Activity, other specified; Y92.89 Other specified places as the place of occurrence of the external cause; Y99.8 Other external cause status

== ENCOUNTER 2020-04-09 02:32 | Emergency (ER) | payer OTHER ==
[~2020-04-09] VITALS: Ht 182.8 cm; Wt 102.1 kg
[2020-04-09 03:09] VITALS: BP 149/77
== END 2020-04-09 03:49 | disposition home or self-care (01) ==
LOC: ED 02:32
DX: S05.11XA Contusion of eyeball and orbital tissues, right eye, initial encounter (principal); S70.01XA Contusion of right hip, initial encounter; I25.10 Atherosclerotic heart disease of native coronary artery without angina pectoris; J44.9 Chronic obstructive pulmonary disease, unspecified; E11.9 Type 2 diabetes mellitus without complications; I10 Essential (primary) hypertension; I25.2 Old myocardial infarction; Z88.1 Allergy status to other antibiotic agents; Z88.0 Allergy status to penicillin; Z79.899 Other long term (current) drug therapy; Z79.4 Long term (current) use of insulin; Z96.641 Presence of right artificial hip joint; Z94.9 Transplanted organ and tissue status, unspecified; Z90.49 Acquired absence of other specified parts of digestive tract; Z89.422 Acquired absence of other left toe(s); Z89.412 Acquired absence of left great toe; Z98.61 Coronary angioplasty status; Z87.891 Personal history of nicotine dependence; Z86.73 Personal history of transient ischemic attack (TIA), and cerebral infarction without residual deficits; Z86.14 Personal history of Methicillin resistant Staphylococcus aureus infection; W19.XXXA Unspecified fall, initial encounter; Y93.89 Activity, other specified; Y92.098 Other place in other non-institutional residence as the place of occurrence of the external cause; Y99.8 Other external cause status

== ENCOUNTER 2020-04-29 09:37 | Inpatient (IN) | payer OTHER ==
[~2020-04-29] VITALS: Ht 182.8 cm; Wt 117.3 kg
[2020-04-29 09:39] VITALS: BP 128/53
[2020-04-29 10:12] LABS: BASO % 0.7 % (0.0-1.0); EOS # 0.5 10*3/uL (0.0-0.4); EOS % 7.4 % (1.0-4.0); LYMPH # 1.9 10*3/uL (1.3-4.4); LYMPH % 30.9 % (27.0-41.0); MEAN CORPUSCULAR HGB 30.9 pg (27.0-31.0); MEAN CORPUSCULAR HGB CONC 32.2 g/dl (33.0-37.0); MEAN PLATELET VOLUME 11.3 fl (9.6-12.3); MONO # 0.5 10*3/uL (0.1-1.0); MONO % 7.6 % (3.0-9.0); NEUT # 3.2 10*3/uL (2.3-7.9); NEUT % 52.4 % (47.0-73.0); PLATELET COUNT AUTOMATED 122 10*3/uL (130-400); RED BLOOD COUNT 3.75 10*6/uL (4.50-5.90); RED CELL DISTRI WIDTH 14.6 % (0-14.5); WHITE BLOOD COUNT 6.1 10*3/uL (4.8-10.8)
[2020-04-29 10:24] VITALS: BP 123/65
[2020-04-29 10:24] LABS: ACT PARTIAL THROMBO TIME 36.4 SECONDS (20.0-32.1); INTERNATIONAL NORM RATIO 1.8 (2.0-3.5)
[2020-04-29 10:28] LABS: BUN 35 mg/dl (7-24); CHLORIDE 102 mmol/L (98-107); CREATININE 3.26 mg/dL (0.70-1.30); POTASSIUM 4.1 mmol/L (3.5-5.1); SODIUM 136 mmol/L (136-145)
[2020-04-29 10:37] LABS: TROPONIN I < 0.015 ng/ml (<0.045)
[2020-04-29] MEDS ORDERED: NOVOLIN 70100 UNIT/2 SC (11:28)
--- NOTE | 2020-04-29 11:39 | NUR ---
MSADMTime: N A 70 year old MALE admitted to under services of RY EPSTEIN DO. Pt. arrived via bed from [place]. Chief complaint: EDILSON. SÁNCHEZ FIELD
[2020-04-29 12:00] VITALS: BP 136/67
--- NOTE | 2020-04-29 13:30 | NUR ---
ORTHOSTATIC BP'S ARE NEGATIVE.
[2020-04-29 16:00] VITALS: BP 146/78
[2020-04-29 20:00] VITALS: BP 140/58
[2020-04-30] VITALS: BP 147/73
[2020-04-30 06:22] LABS: BASO % 0.7 % (0.0-1.0); EOS # 0.4 10*3/uL (0.0-0.4); EOS % 6.6 % (1.0-4.0); HEMATOCRIT 32.7 % (42.0-52.0); LYMPH # 1.5 10*3/uL (1.3-4.4); LYMPH % 26.6 % (27.0-41.0); MEAN CELL VOLUME 95.9 fl (80.0-94.0); MEAN CORPUSCULAR HGB 31.7 pg (27.0-31.0); MEAN PLATELET VOLUME 12.2 fl (9.6-12.3); MONO # 0.4 10*3/uL (0.1-1.0); MONO % 6.1 % (3.0-9.0); NEUT # 3.4 10*3/uL (2.3-7.9); NEUT % 59.5 % (47.0-73.0); PLATELET COUNT AUTOMATED 107 10*3/uL (130-400); RED BLOOD COUNT 3.41 10*6/uL (4.50-5.90); RED CELL DISTRI WIDTH 14.2 % (0-14.5); WHITE BLOOD COUNT 5.8 10*3/uL (4.8-10.8)
[2020-04-30 06:32] LABS: CREATININE 1.95 mg/dL (0.70-1.30); POTASSIUM 4.6 mmol/L (3.5-5.1)
[2020-04-30 08:00] VITALS: BP 129/66
[2020-04-30 08:25] LABS: BILIRUBIN NEGATIVE (NEGATIVE); BLOOD TRACE-INTACT (NEGATIVE); CLARITY CLEAR (CLEAR); COLOR YELLOW (YELLOW); GLUCOSE 3+ (NEGATIVE); KETONE NEGATIVE (NEGATIVE); LEUKO ESTERASE NEGATIVE (NEGATIVE); NITRITE NEGATIVE (NEGATIVE); SPECIFIC GRAVITY 1.005 (1.005-1.030); UROBILINOGEN 0.2 E.U./dl (0.2-1.0)
[2020-04-30 08:35] LABS: EPITHELIAL CELLS 0-2; WBC 0-2 wbc/hpf (0-5)
--- NOTE | 2020-04-30 08:53 | NUR ---
PT RESTING IN BED. NO DISTRESS NOTED. WILL MONITOR
--- NOTE | 2020-04-30 09:00 | NUR ---
Director Immunology in to talk to patient. Patient states lives at home with alone. There are no steps in the home. Physician: [facility] Home health services: none Patient's level of ADLs: minimal assist Patient has working utilities: all working DME: walker Follow-up physician's appointment after d/c:[facility] Does patient want to access PORTAL?:no Discharge plan .discussed with patient, he states he lives at home alone, he has a walker he uses for ambulation and requires minimal assist for adls, he has always [facility] aids 3 days a week, he also has a railway station manager. patient stated he doesn't drive so his aids take him to doctors appointments and gets his groceries, he states he will return home when medically stable and denies any other home needs STEVAN CASPER
[2020-04-30 12:00] VITALS: BP 110/70
--- NOTE | 2020-04-30 13:00 | NUR ---
PT LEFT AMA. DR GENTILE AND NADINE SPINNING MACHINE OPERATOR NOTIFIED
== END 2020-04-30 13:00 | disposition left against medical advice (07) | DRG 683 ==
LOC: ED 09:37 → 4E 10:45 → EDHOLD 10:45 → 4E 10:58
PROVIDERS: Emergency Medicine; Student in an Organized Health Care Education/Training Program; ADMIT Emergency Medicine
DX: N17.0 Acute kidney failure with tubular necrosis (principal); D68.9 Coagulation defect, unspecified; E87.2 Acidosis; I50.32 Chronic diastolic (congestive) heart failure; I13.0 Hypertensive heart and chronic kidney disease with heart failure and stage 1 through stage 4 chronic kidney disease, or unspecified chronic kidney disease; I48.21 Permanent atrial fibrillation; E11.65 Type 2 diabetes mellitus with hyperglycemia; E86.0 Dehydration; R55 Syncope and collapse; R00.0 Tachycardia, unspecified; D69.6 Thrombocytopenia, unspecified; N40.0 Benign prostatic hyperplasia without lower urinary tract symptoms; M10.9 Gout, unspecified; I25.10 Atherosclerotic heart disease of native coronary artery without angina pectoris; M51.34 Other intervertebral disc degeneration, thoracic region; F41.1 Generalized anxiety disorder; F32.9 Major depressive disorder, single episode, unspecified; E11.41 Type 2 diabetes mellitus with diabetic mononeuropathy; E55.9 Vitamin D deficiency, unspecified; D53.9 Nutritional anemia, unspecified; E66.9 Obesity, unspecified; K21.9 Gastro-esophageal reflux disease without esophagitis; Z96.641 Presence of right artificial hip joint; N18.3 Chronic kidney disease, stage 3 (moderate); J44.9 Chronic obstructive pulmonary disease, unspecified; E78.5 Hyperlipidemia, unspecified; Z53.29 Procedure and treatment not carried out because of patient's decision for other reasons; Z79.4 Long term (current) use of insulin; Z88.1 Allergy status to other antibiotic agents; Z88.0 Allergy status to penicillin; Z86.73 Personal history of transient ischemic attack (TIA), and cerebral infarction without residual deficits; Z91.81 History of falling; Z89.412 Acquired absence of left great toe; Z90.49 Acquired absence of other specified parts of digestive tract; Z89.422 Acquired absence of other left toe(s); Z95.5 Presence of coronary angioplasty implant and graft; Z87.891 Personal history of nicotine dependence; Z82.49 Family history of ischemic heart disease and other diseases of the circulatory system; Z80.0 Family history of malignant neoplasm of digestive organs; Z82.3 Family history of stroke; Z79.899 Other long term (current) drug therapy; Z79.01 Long term (current) use of anticoagulants; Z68.34 Body mass index [BMI] 34.0-34.9, adult

== ENCOUNTER 2020-05-01 12:08 | Emergency (ER) | payer OTHER ==
[~2020-05-01] VITALS: Ht 182.8 cm; Wt 120.2 kg
[~2020-05-01 12:08] MED LIST changes: +NOVOLIN 70100 UNIT/2 SC
[2020-05-01 12:15] VITALS: BP 124/72
[2020-05-01 12:49] LABS: BASO % 0.4 % (0.0-1.0); EOS # 0.5 10*3/uL (0.0-0.4); EOS % 6.8 % (1.0-4.0); HEMATOCRIT 34.9 % (42.0-52.0); LYMPH # 1.6 10*3/uL (1.3-4.4); LYMPH % 24.1 % (27.0-41.0); MEAN CELL VOLUME 96.1 fl (80.0-94.0); MEAN CORPUSCULAR HGB 31.4 pg (27.0-31.0); MEAN CORPUSCULAR HGB CONC 32.7 g/dl (33.0-37.0); MEAN PLATELET VOLUME 11.5 fl (9.6-12.3); MONO # 0.4 10*3/uL (0.1-1.0); NEUT # 4.2 10*3/uL (2.3-7.9); PLATELET COUNT AUTOMATED 132 10*3/uL (130-400); RED BLOOD COUNT 3.63 10*6/uL (4.50-5.90); RED CELL DISTRI WIDTH 14.5 % (0-14.5); WHITE BLOOD COUNT 6.7 10*3/uL (4.8-10.8)
[2020-05-01 13:01] LABS: ALBUMIN 2.8 gm/dl (3.1-4.5); CREATININE 1.94 mg/dL (0.70-1.30); POTASSIUM 4.9 mmol/L (3.5-5.1); TOTAL PROTEIN 6.2 gm/dL (6.4-8.2)
== END 2020-05-01 14:40 | disposition home or self-care (01) ==
LOC: ED 12:08
PROVIDERS: Emergency Medicine
DX: J06.9 Acute upper respiratory infection, unspecified (principal); Z20.828 Contact with and (suspected) exposure to other viral communicable diseases; Z88.1 Allergy status to other antibiotic agents; Z88.0 Allergy status to penicillin; Z79.899 Other long term (current) drug therapy; Z87.891 Personal history of nicotine dependence

== ENCOUNTER 2020-05-05 19:03 | Emergency (ER) | payer OTHER ==
[~2020-05-05] VITALS: Wt 119.7 kg
[2020-05-05 19:55] LABS: BASO % 0.7 % (0.0-1.0); EOS # 0.4 10*3/uL (0.0-0.4); EOS % 7.2 % (1.0-4.0); LYMPH # 1.8 10*3/uL (1.3-4.4); LYMPH % 31.7 % (27.0-41.0); MEAN CELL VOLUME 93.5 fl (80.0-94.0); MEAN CORPUSCULAR HGB 30.6 pg (27.0-31.0); MEAN CORPUSCULAR HGB CONC 32.7 g/dl (33.0-37.0); MEAN PLATELET VOLUME 11.5 fl (9.6-12.3); MONO # 0.5 10*3/uL (0.1-1.0); MONO % 8.1 % (3.0-9.0); NEUT # 2.9 10*3/uL (2.3-7.9); NEUT % 51.6 % (47.0-73.0); PLATELET COUNT AUTOMATED 135 10*3/uL (130-400); RED BLOOD COUNT 3.53 10*6/uL (4.50-5.90); RED CELL DISTRI WIDTH 14.6 % (0-14.5); WHITE BLOOD COUNT 5.6 10*3/uL (4.8-10.8)
[2020-05-05 20:06] LABS: ACT PARTIAL THROMBO TIME 36.3 SECONDS (20.0-32.1); INTERNATIONAL NORM RATIO 1.6 (2.0-3.5)
[2020-05-05 20:14] LABS: ALBUMIN 2.9 gm/dl (3.1-4.5); ALKALINE PHOSPHATASE 126 U/L (45-117); BUN 35 mg/dl (7-24); CHLORIDE 111 mmol/L (98-107); POTASSIUM 4.5 mmol/L (3.5-5.1); SGOT/AST 29 IU/L (3-35); SGPT/ALT 45 U/L (12-78); SODIUM 141 mmol/L (136-145); TOTAL PROTEIN 6.3 gm/dL (6.4-8.2)
[2020-05-05 20:15] LABS: TROPONIN I < 0.015 ng/ml (<0.045)
[2020-05-05 20:51] VITALS: BP 130/80
[2020-05-05 21:02] LABS: CLARITY CLEAR (CLEAR); COLOR YELLOW (YELLOW); GLUCOSE NEGATIVE (NEGATIVE)
[2020-05-05 21:03] LABS: BILIRUBIN NEGATIVE (NEGATIVE); KETONE NEGATIVE (NEGATIVE); SPECIFIC GRAVITY 1.015 (1.005-1.030)
[2020-05-05 21:04] LABS: BACTERIA TRACE; BLOOD 2+ (NEGATIVE); LEUKO ESTERASE NEGATIVE (NEGATIVE); NITRITE NEGATIVE (NEGATIVE); PH 6.5 (5.0-9.0); UROBILINOGEN 0.2 E.U./dl (0.2-1.0)
[2020-05-05] MEDS ORDERED: TYLENOL325 M1 PO (22:52)
--- NOTE | 2020-05-09 13:11 | NUR ---
ELECTRICIAN BUS RECEIVED CALL FROM RN HOSPITALIST COORDINATOR VANESSA STATING THAT THIS PATIENT CALLED REQUESTING THEIR COVID TESTING BE SENT TO [facility]. ELECTRICIAN BUS CALLED AND CONFIRMED THAT [facility] WAS REQUESTING THE RESULTS. THEY CONFIRMED. ELECTRICIAN BUS FAXED RESULTS TO [facility] [phone].
== END 2020-05-05 23:02 | disposition home or self-care (01) ==
LOC: ED 19:03
PROVIDERS: Emergency Medicine Emergency Medical Services
DX: S39.012A Strain of muscle, fascia and tendon of lower back, initial encounter (principal); I25.10 Atherosclerotic heart disease of native coronary artery without angina pectoris; I48.91 Unspecified atrial fibrillation; E11.9 Type 2 diabetes mellitus without complications; F32.9 Major depressive disorder, single episode, unspecified; K21.9 Gastro-esophageal reflux disease without esophagitis; E78.5 Hyperlipidemia, unspecified; M10.9 Gout, unspecified; Z88.8 Allergy status to other drugs, medicaments and biological substances; Z88.0 Allergy status to penicillin; Z88.5 Allergy status to narcotic agent; Z79.899 Other long term (current) drug therapy; Z79.4 Long term (current) use of insulin; W19.XXXA Unspecified fall, initial encounter; Y93.89 Activity, other specified; Y92.89 Other specified places as the place of occurrence of the external cause; Y99.8 Other external cause status

== ENCOUNTER → 2020-05-09 | Outpatient (CLI) | payer OTHER ==
[~2020-05-09] MED LIST changes: +VENT7GM INH
[2020-05-09 11:58] LABS: CREATININE 2.38 mg/dL (0.70-1.30); POTASSIUM 5.4 mmol/L (3.5-5.1)
== END | disposition home or self-care (01) ==
LOC: RESCLI 00:55
PROVIDERS: Student in an Organized Health Care Education/Training Program
DX: J20.9 Acute bronchitis, unspecified (principal); K59.00 Constipation, unspecified; L03.211 Cellulitis of face; E03.9 Hypothyroidism, unspecified; E78.5 Hyperlipidemia, unspecified; K21.9 Gastro-esophageal reflux disease without esophagitis; E55.9 Vitamin D deficiency, unspecified; I73.00 Raynaud's syndrome without gangrene; K58.9 Irritable bowel syndrome, unspecified; I48.91 Unspecified atrial fibrillation; G62.9 Polyneuropathy, unspecified; I25.119 Atherosclerotic heart disease of native coronary artery with unspecified angina pectoris; M10.9 Gout, unspecified; I10 Essential (primary) hypertension; E11.65 Type 2 diabetes mellitus with hyperglycemia; E87.5 Hyperkalemia; E11.9 Type 2 diabetes mellitus without complications; Z98.2 Presence of cerebrospinal fluid drainage device; Z79.899 Other long term (current) drug therapy; Z95.828 Presence of other vascular implants and grafts; Z98.890 Other specified postprocedural states; Z90.49 Acquired absence of other specified parts of digestive tract; Z87.891 Personal history of nicotine dependence; Z88.0 Allergy status to penicillin; Z88.8 Allergy status to other drugs, medicaments and biological substances

== ENCOUNTER 2020-05-12 18:52 | Emergency (ER) | payer OTHER ==
[~2020-05-12 18:52] MED LIST changes: -VENT7GM INH
[2020-05-12 19:21] LABS: BASO # 0.1 10*3/uL (0.0-0.1); BASO % 0.9 % (0.0-1.0); EOS # 0.4 10*3/uL (0.0-0.4); EOS % 6.3 % (1.0-4.0); LYMPH % 30.9 % (27.0-41.0); MEAN CELL VOLUME 99.2 fl (80.0-94.0); MEAN CORPUSCULAR HGB 30.6 pg (27.0-31.0); MEAN CORPUSCULAR HGB CONC 30.8 g/dl (33.0-37.0); MEAN PLATELET VOLUME 11.9 fl (9.6-12.3); MONO # 0.5 10*3/uL (0.1-1.0); MONO % 7.9 % (3.0-9.0); NEUT # 3.4 10*3/uL (2.3-7.9); NEUT % 53.2 % (47.0-73.0); PLATELET COUNT AUTOMATED 141 10*3/uL (130-400); RED BLOOD COUNT 3.63 10*6/uL (4.50-5.90); RED CELL DISTRI WIDTH 14.2 % (0-14.5); WHITE BLOOD COUNT 6.4 10*3/uL (4.8-10.8)
[2020-05-12 19:39] LABS: ALBUMIN 3.2 gm/dl (3.1-4.5); ALKALINE PHOSPHATASE 125 U/L (45-117); BUN 49 mg/dl (7-24); CHLORIDE 109 mmol/L (98-107); CREATININE 1.98 mg/dL (0.70-1.30); POTASSIUM 4.7 mmol/L (3.5-5.1); SGOT/AST 23 IU/L (3-35); SGPT/ALT 33 U/L (12-78); SODIUM 136 mmol/L (136-145); TOTAL PROTEIN 6.5 gm/dL (6.4-8.2)
[2020-05-12 19:41] LABS: TROPONIN I < 0.015 ng/ml (<0.045)
[2020-05-12 19:42] LABS: ACT PARTIAL THROMBO TIME 35.6 SECONDS (20.0-32.1); INTERNATIONAL NORM RATIO 1.6 (2.0-3.5)
[2020-05-12] MEDS ORDERED: VENT7GM INH (21:17)
[2020-05-12] MEDS ORDERED: MEDROL DOSEPAK4 MG PO (21:17)
[2020-05-12 22:02] VITALS: BP 152/71
== END 2020-05-12 22:22 | disposition home or self-care (01) ==
LOC: ED 18:52
PROVIDERS: Emergency Medicine
DX: J44.1 Chronic obstructive pulmonary disease with (acute) exacerbation (principal); I25.10 Atherosclerotic heart disease of native coronary artery without angina pectoris; E11.9 Type 2 diabetes mellitus without complications; I10 Essential (primary) hypertension; F41.9 Anxiety disorder, unspecified; Z88.8 Allergy status to other drugs, medicaments and biological substances; Z88.0 Allergy status to penicillin; Z88.1 Allergy status to other antibiotic agents; Z79.899 Other long term (current) drug therapy; Z79.2 Long term (current) use of antibiotics; Z87.891 Personal history of nicotine dependence

== ENCOUNTER 2020-05-16 18:20 | Emergency (ER) | payer OTHER ==
[~2020-05-16] VITALS: Ht 182.8 cm; Wt 147.0 kg
[2020-05-16 18:28] VITALS: BP 104/63
[2020-05-16 19:57] LABS: CREATININE 2.02 mg/dL (0.70-1.30); POTASSIUM 3.9 mmol/L (3.5-5.1)
== END 2020-05-16 20:42 | disposition home or self-care (01) ==
LOC: ED 18:20
PROVIDERS: Physician Assistant
DX: E11.65 Type 2 diabetes mellitus with hyperglycemia (principal); I25.10 Atherosclerotic heart disease of native coronary artery without angina pectoris; J44.9 Chronic obstructive pulmonary disease, unspecified; I10 Essential (primary) hypertension; I25.2 Old myocardial infarction; M86.8X7 Other osteomyelitis, ankle and foot; E78.5 Hyperlipidemia, unspecified; Z88.1 Allergy status to other antibiotic agents; Z88.0 Allergy status to penicillin; Z79.899 Other long term (current) drug therapy; Z79.4 Long term (current) use of insulin; Z87.891 Personal history of nicotine dependence; Z86.73 Personal history of transient ischemic attack (TIA), and cerebral infarction without residual deficits

== ENCOUNTER → 2020-05-16 | Outpatient (CLI) | payer OTHER ==
[~2020-05-16] MED LIST changes: +VENT7GM INH
[2020-05-16 14:20] LABS: CREATININE 1.87 mg/dL (0.70-1.30); POTASSIUM 3.8 mmol/L (3.5-5.1)
== END | disposition home or self-care (01) ==
LOC: LAB 12:56
PROVIDERS: Student in an Organized Health Care Education/Training Program
DX: I10 Essential (primary) hypertension (principal); Z79.899 Other long term (current) drug therapy

== ENCOUNTER 2020-05-21 12:57 | Observation (INO) | payer OTHER ==
[~2020-05-21] VITALS: Ht 182.8 cm; Wt 114.4 kg
[2020-05-21 13:28] VITALS: BP 155/69
[2020-05-21 15:05] LABS: BASO % 0.4 % (0.0-1.0); EOS # 0.4 10*3/uL (0.0-0.4); EOS % 6.7 % (1.0-4.0); HEMATOCRIT 36.4 % (42.0-52.0); LYMPH # 1.2 10*3/uL (1.3-4.4); LYMPH % 21.5 % (27.0-41.0); MEAN CELL VOLUME 94.3 fl (80.0-94.0); MEAN CORPUSCULAR HGB 30.6 pg (27.0-31.0); MEAN CORPUSCULAR HGB CONC 32.4 g/dl (33.0-37.0); MONO # 0.4 10*3/uL (0.1-1.0); MONO % 6.9 % (3.0-9.0); NEUT # 3.6 10*3/uL (2.3-7.9); NEUT % 63.4 % (47.0-73.0); PLATELET COUNT AUTOMATED 148 10*3/uL (130-400); RED BLOOD COUNT 3.86 10*6/uL (4.50-5.90); RED CELL DISTRI WIDTH 13.9 % (0-14.5); WHITE BLOOD COUNT 5.7 10*3/uL (4.8-10.8)
[2020-05-21 15:15] LABS: ACT PARTIAL THROMBO TIME 27.1 SECONDS (20.0-32.1); INTERNATIONAL NORM RATIO 1.1 (2.0-3.5)
[2020-05-21 15:19] LABS: ALBUMIN 3.2 gm/dl (3.1-4.5); ALKALINE PHOSPHATASE 131 U/L (45-117); BUN 32 mg/dl (7-24); CHLORIDE 106 mmol/L (98-107); CREATININE 1.95 mg/dL (0.70-1.30); LIPASE 249 U/L (73-393); POTASSIUM 4.8 mmol/L (3.5-5.1); SGOT/AST 19 IU/L (3-35); SGPT/ALT 27 U/L (12-78); SODIUM 135 mmol/L (136-145); TOTAL PROTEIN 6.8 gm/dL (6.4-8.2)
[2020-05-21 15:20] LABS: TROPONIN I < 0.015 ng/ml (<0.045)
[2020-05-21 17:18] VITALS: BP 181/72
--- NOTE | 2020-05-21 17:30 | NUR ---
A 70, admitted to , under the services of SHEY Claudio DO with a diagnosis of DEHYDRATION, DIZZINESS. Chief complaint is RASH. Patient arrived via bed from ER. Monitor applied. Initial assessment completed. Vital signs taken and recorded. SHEY CLAUDIO DO notified of admission to the unit. Orders received. See assessment for past medical history, medications and allergies. Patient and/or family oriented to unit. [facility] Clothing/patient valuable form completed. BROOKS YUNG
--- NOTE | 2020-05-21 17:40 | NUR ---
PT COMPLAINS OF ITCHING TO RASH ON BILATERAL ARMS. THE LAST TIME HE HAD DIARRHEA AND THREW UP WAS THIS MORNING, NO MORE COMPLAINTS OF DIZZINESS. STATES HE JUST WANTS TO STOP HIS ARMS FROM ITCHING
[2020-05-21] MEDS ORDERED: FAMOTIDINE40 MG PO (17:50)
[2020-05-21] MEDS ORDERED: LOSARTAN POTASS25 M1 PO (17:51)
[2020-05-21] MEDS ORDERED: METOPROLOL SUC100 M1 PO (17:55)
[2020-05-21 17:56] VITALS: BP 190/79
--- NOTE | 2020-05-21 18:00 | NUR ---
CALLED PHARMACY TO GET UPDATED MED LIST. THEY STATES THAT THE PATIENT TOOK [facility] A WEEK AGO FOR COMPLAINTS OF CONSTIPATION. DR GUERRERO MADE AWARE OF THIS AND UPDATED MED LIST
[2020-05-21 20:00] VITALS: BP 139/74
[2020-05-22] VITALS: BP 122/81
--- NOTE | 2020-05-22 06:08 | NUR ---
Patient resting quietly with no c/o discomfort. Respirations easy and regular. Vital signs stable. No overt distress. AARTI CURRY
[2020-05-22 06:25] LABS: BASO % 0.4 % (0.0-1.0); EOS # 0.3 10*3/uL (0.0-0.4); EOS % 6.8 % (1.0-4.0); HEMATOCRIT 34.8 % (42.0-52.0); LYMPH # 1.3 10*3/uL (1.3-4.4); MEAN CELL VOLUME 94.3 fl (80.0-94.0); MEAN CORPUSCULAR HGB 30.4 pg (27.0-31.0); MEAN CORPUSCULAR HGB CONC 32.2 g/dl (33.0-37.0); MEAN PLATELET VOLUME 11.9 fl (9.6-12.3); MONO # 0.4 10*3/uL (0.1-1.0); MONO % 8.2 % (3.0-9.0); NEUT # 2.8 10*3/uL (2.3-7.9); PLATELET COUNT AUTOMATED 129 10*3/uL (130-400); RED BLOOD COUNT 3.69 10*6/uL (4.50-5.90); RED CELL DISTRI WIDTH 13.9 % (0-14.5); WHITE BLOOD COUNT 4.9 10*3/uL (4.8-10.8)
[2020-05-22 06:34] LABS: CREATININE 1.43 mg/dL (0.70-1.30); POTASSIUM 4.3 mmol/L (3.5-5.1)
[2020-05-22 06:41] LABS: THYROID STIM HORMONE (HS) 3.85 uIU/ml (0.358-4.75)
--- NOTE | 2020-05-22 07:28 | NUR ---
DEBORAH SANTACRUZ [id number] Please refer to the physician's history and physical for past medical history, comorbid conditions, and allergies. Diagnosis: DEGYDRATION,DIZZINESS Isauro Score: 21,LOW OR NO RISK WOUND DESCRIPTIONS: This nurse along with with Valentine Yepez RN evaluated patient for skin impairments. Wound Number: 1 Location of the wound: left arm raised red rash noted. No open areas noted at time of assessment. No drainage noted at time of assessment. Wound Number: 2 Location of the wound: right arm raised red rash noted. No open areas noted at time of assessment. No drainage noted at time of assessment. Wound Number: 3 Location of the wound: face raised red rash noted. No open areas noted at time of assessment. No drainage noted at time of assessment. Surface the patient is resting on: Isoflex SKIN PREVENTION RECOMMENDATION: 1. Pressure redistribution support surface as appropriate 2. Elevate heels 3. Remove boots/TEDS every shift and reapply 4. Head of bed 30 degrees as tolerated 5. Assess nutrition and hydration 6. Manage moisture 7. Avoid the use of containment devices while in bed 8. Use absorptive products on surfaces limit layers of linens on bed 9. Turn and reposition every 1-2 hours in bed and every 1 hour in chair as tolerated 10. Weight shifts every 15 minutes while up in chair 11. Offloading with pillows or device to keep heels elevated off bed 12. Monitor skin at least every shift 13. Inspect under medical devices twice a day WOUND TREATMENT RECOMMENDATIONS: Continue hydrocortison 1& cream per provider orders.
[2020-05-22 08:00] VITALS: BP 128/64; BP 132/68
--- NOTE | 2020-05-22 09:00 | NUR ---
Sales Consulting Director in to talk to patient. Patient states lives at home with alone. There are no steps in the home. Physician: [facility] Home health services: none at present Patient's level of ADLs: MINIMAL ASSIST Patient has working utilities: all working DME: walker Follow-up physician's appointment after d/c: will be made by hospitalist nurse director upon discharge Does patient want to access PORTAL?: no Discharge plan discussed with patient, he states he lives at home alone, is independent in adls and ambulation with a walker, he has always [facility] aids 3 days a week, he has a machine accountant, he stated he doesn't drive anymore, if he needs to go somewhere he takes a taxi, his aid from [employer] goes to the grocery store for him, he states he will return home when discharged and denies any other home needs, case management will follow. STEVAN CASPER
[2020-05-22] MEDS ORDERED: IMODIUM A-D2 M2 PO (10:50)
--- NOTE | 2020-05-22 13:36 | NUR ---
Discharge instructions reviewed with patient/family. Patient receptive and verbalizes understanding. Follow-up care arranged. Written instructions given to patient/family. PIPO SOTO
== END 2020-05-22 14:30 | disposition home or self-care (01) ==
LOC: ED 12:57 → 4E 16:32 → EDHOLD 16:32 → 4E 16:32
PROVIDERS: Emergency Medicine; Student in an Organized Health Care Education/Training Program; ADMIT Internal Medicine
DX: R11.2 Nausea with vomiting, unspecified (principal); R19.7 Diarrhea, unspecified; E86.0 Dehydration; R42 Dizziness and giddiness; E87.1 Hypo-osmolality and hyponatremia; E11.65 Type 2 diabetes mellitus with hyperglycemia; R79.82 Elevated C-reactive protein (CRP); R74.8 Abnormal levels of other serum enzymes; L27.0 Generalized skin eruption due to drugs and medicaments taken internally; N40.0 Benign prostatic hyperplasia without lower urinary tract symptoms; M10.9 Gout, unspecified; I50.32 Chronic diastolic (congestive) heart failure; E66.9 Obesity, unspecified; I11.0 Hypertensive heart disease with heart failure; K21.9 Gastro-esophageal reflux disease without esophagitis; I16.1 Hypertensive emergency; N17.0 Acute kidney failure with tubular necrosis

== ENCOUNTER 2020-06-10 10:32 | Emergency (ER) | payer OTHER ==
[~2020-06-10] VITALS: Ht 180.3 cm; Wt 101.6 kg
[~2020-06-10 10:32] MED LIST changes: +FAMOTIDINE40 MG PO; +LOSARTAN POTASS25 M1 PO
[2020-06-10 11:31] LABS: BASO % 0.5 % (0.0-1.0); EOS # 0.5 10*3/uL (0.0-0.4); EOS % 7.4 % (1.0-4.0); HEMATOCRIT 30.6 % (42.0-52.0); LYMPH # 1.3 10*3/uL (1.3-4.4); LYMPH % 19.5 % (27.0-41.0); MEAN CELL VOLUME 94.2 fl (80.0-94.0); MEAN CORPUSCULAR HGB 30.5 pg (27.0-31.0); MEAN CORPUSCULAR HGB CONC 32.4 g/dl (33.0-37.0); MONO # 0.3 10*3/uL (0.1-1.0); MONO % 5.3 % (3.0-9.0); NEUT # 4.3 10*3/uL (2.3-7.9); NEUT % 66.4 % (47.0-73.0); PLATELET COUNT AUTOMATED 163 10*3/uL (130-400); RED BLOOD COUNT 3.25 10*6/uL (4.50-5.90); RED CELL DISTRI WIDTH 13.3 % (0-14.5); WHITE BLOOD COUNT 6.5 10*3/uL (4.8-10.8)
[2020-06-10 11:41] LABS: INTERNATIONAL NORM RATIO 2.3 (2.0-3.5)
[2020-06-10 11:49] LABS: ALBUMIN 2.8 gm/dl (3.1-4.5); ALKALINE PHOSPHATASE 118 U/L (45-117); BUN 49 mg/dl (7-24); CHLORIDE 111 mmol/L (98-107); CREATININE 1.82 mg/dL (0.70-1.30); POTASSIUM 5.1 mmol/L (3.5-5.1); SGOT/AST 24 IU/L (3-35); SGPT/ALT 40 U/L (12-78); SODIUM 138 mmol/L (136-145); TOTAL PROTEIN 6.1 gm/dL (6.4-8.2)
[2020-06-10 11:51] LABS: TROPONIN I < 0.015 ng/ml (<0.045)
[2020-06-10 14:06] VITALS: BP 126/58
[2020-06-10 14:11] LABS: BILIRUBIN NEGATIVE (NEGATIVE); BLOOD NEGATIVE (NEGATIVE); CLARITY SL CLOUDY (CLEAR); COLOR YELLOW (YELLOW); GLUCOSE NEGATIVE (NEGATIVE); KETONE NEGATIVE (NEGATIVE); LEUKO ESTERASE NEGATIVE (NEGATIVE); NITRITE NEGATIVE (NEGATIVE); UROBILINOGEN 0.2 E.U./dl (0.2-1.0)
[2020-06-10 14:16] LABS: BACTERIA TRACE; EPITHELIAL CELLS 0-2; RBC 0-2 rbc/hpf (0-2); WBC 0-2 wbc/hpf (0-5)
[2020-06-10 14:19] LABS: URINE AMPHETAMINES < 1000 (1000ng/ml); URINE BARBITURATES < 200 (200ng/ml); URINE BENZODIAZEPINES < 200 (200ng/ml); URINE CANNABINOIDS (THC) < 50 (50ng/ml); URINE COCAINE > 300 (300ng/ml); URINE METHADONE < 300 (300ng/ml); URINE OPIATES < 300 (300ng/ml)
[2020-06-10 14:20] LABS: URINE PHENCYCLIDINE < 25 (25ng/ml)
[2020-06-10] MEDS ORDERED: LEVOFLOXACIN500 MG PO (15:55)
== END 2020-06-10 16:11 | disposition home or self-care (01) ==
LOC: ED 10:32
PROVIDERS: Physician Assistant
DX: J32.9 Chronic sinusitis, unspecified (principal); R79.1 Abnormal coagulation profile; Z88.1 Allergy status to other antibiotic agents; Z88.0 Allergy status to penicillin; Z79.899 Other long term (current) drug therapy; Z79.2 Long term (current) use of antibiotics; Z87.891 Personal history of nicotine dependence

== ENCOUNTER → 2020-06-13 | Outpatient (CLI) | payer OTHER | END | disposition home or self-care (01) | LOC: RESCLI 01:05 | DX: D64.9 Anemia, unspecified (principal); J44.9 Chronic obstructive pulmonary disease, unspecified; E03.9 Hypothyroidism, unspecified; E78.5 Hyperlipidemia, unspecified; E55.9 Vitamin D deficiency, unspecified; I48.91 Unspecified atrial fibrillation; G62.9 Polyneuropathy, unspecified; M10.9 Gout, unspecified; I12.9 Hypertensive chronic kidney disease with stage 1 through stage 4 chronic kidney disease, or unspecified chronic kidney disease; N18.3 Chronic kidney disease, stage 3 (moderate); J30.2 Other seasonal allergic rhinitis; E11.65 Type 2 diabetes mellitus with hyperglycemia; I25.10 Atherosclerotic heart disease of native coronary artery without angina pectoris; J20.9 Acute bronchitis, unspecified; K59.00 Constipation, unspecified; H40.9 Unspecified glaucoma; J32.9 Chronic sinusitis, unspecified; K21.9 Gastro-esophageal reflux disease without esophagitis; L23.9 Allergic contact dermatitis, unspecified cause; F17.200 Nicotine dependence, unspecified, uncomplicated; Z12.5 Encounter for screening for malignant neoplasm of prostate; Z79.899 Other long term (current) drug therapy; Z79.82 Long term (current) use of aspirin; Z95.828 Presence of other vascular implants and grafts; Z90.49 Acquired absence of other specified parts of digestive tract; Z98.890 Other specified postprocedural states; Z88.8 Allergy status to other drugs, medicaments and biological substances ==

== ENCOUNTER → 2020-06-18 | Outpatient (CLI) | payer OTHER ==
[2020-06-18 10:26] LABS: FERRITIN 50.2 ng/mL (22.0-322.0); VITAMIN D, 25-HYDROXY 32.6 ng/mL (30-100)
== END | disposition home or self-care (01) ==
LOC: LAB 08:33
PROVIDERS: Internal Medicine Nephrology
DX: Z12.5 Encounter for screening for malignant neoplasm of prostate (principal); I25.10 Atherosclerotic heart disease of native coronary artery without angina pectoris; E11.65 Type 2 diabetes mellitus with hyperglycemia; D64.9 Anemia, unspecified; E55.9 Vitamin D deficiency, unspecified

== ENCOUNTER 2020-06-25 14:18 | Inpatient (IN) | payer OTHER ==
[~2020-06-25] VITALS: Ht 180.3 cm; Wt 117.0 kg
[2020-06-25 14:48] LABS: BASO % 0.5 % (0.0-1.0); EOS # 0.3 10*3/uL (0.0-0.4); EOS % 4.3 % (1.0-4.0); HEMATOCRIT 38.1 % (42.0-52.0); LYMPH # 2.1 10*3/uL (1.3-4.4); LYMPH % 27.7 % (27.0-41.0); MEAN CELL VOLUME 93.8 fl (80.0-94.0); MEAN CORPUSCULAR HGB 30.5 pg (27.0-31.0); MEAN CORPUSCULAR HGB CONC 32.5 g/dl (33.0-37.0); MEAN PLATELET VOLUME 10.9 fl (9.6-12.3); MONO # 0.5 10*3/uL (0.1-1.0); MONO % 6.5 % (3.0-9.0); NEUT # 4.5 10*3/uL (2.3-7.9); NEUT % 60.5 % (47.0-73.0); PLATELET COUNT AUTOMATED 180 10*3/uL (130-400); RED BLOOD COUNT 4.06 10*6/uL (4.50-5.90); RED CELL DISTRI WIDTH 14.5 % (0-14.5); WHITE BLOOD COUNT 7.4 10*3/uL (4.8-10.8)
[2020-06-25 15:00] LABS: ACT PARTIAL THROMBO TIME 38.9 SECONDS (20.0-32.1); INTERNATIONAL NORM RATIO 1.8 (2.0-3.5)
[2020-06-25 15:05] LABS: ALBUMIN 3.3 gm/dl (3.1-4.5); ALKALINE PHOSPHATASE 149 U/L (45-117); BUN 32 mg/dl (7-24); CHLORIDE 107 mmol/L (98-107); CREATININE 1.95 mg/dL (0.70-1.30); POTASSIUM 4.1 mmol/L (3.5-5.1); SGOT/AST 22 IU/L (3-35); SGPT/ALT 48 U/L (12-78); SODIUM 139 mmol/L (136-145); TOTAL PROTEIN 6.8 gm/dL (6.4-8.2)
[2020-06-25 15:07] LABS: TROPONIN I < 0.015 ng/ml (<0.045)
[2020-06-25 16:22] VITALS: BP 122/77
[2020-06-25 16:45] VITALS: BP 152/89
[2020-06-25 16:58] VITALS: BP 152/89
[2020-06-25 17:06] VITALS: BP 108/54
[2020-06-25 20:00] VITALS: BP 147/85
[2020-06-26] VITALS: BP 106/68
[2020-06-26 06:26] LABS: HEMATOCRIT 34.6 % (42.0-52.0); MEAN CELL VOLUME 94.8 fl (80.0-94.0); MEAN CORPUSCULAR HGB 29.9 pg (27.0-31.0); MEAN CORPUSCULAR HGB CONC 31.5 g/dl (33.0-37.0); MEAN PLATELET VOLUME 11.7 fl (9.6-12.3); PLATELET COUNT AUTOMATED 139 10*3/uL (130-400); RED BLOOD COUNT 3.65 10*6/uL (4.50-5.90); RED CELL DISTRI WIDTH 14.3 % (0-14.5); WHITE BLOOD COUNT 7.7 10*3/uL (4.8-10.8)
[2020-06-26 06:49] LABS: ALBUMIN 3.1 gm/dl (3.1-4.5); CREATININE 2.1 mg/dL (0.70-1.30); POTASSIUM 4.3 mmol/L (3.5-5.1); TOTAL PROTEIN 6.5 gm/dL (6.4-8.2)
[2020-06-26 07:33] LABS: PLATELET SUFFICIENCY NORMAL (NORMAL); TOTAL CELLS COUNTED 100 #CELLS
[2020-06-26 08:00] VITALS: BP 144/72
[2020-06-26 12:00] VITALS: BP 126/64
[2020-06-26 16:00] VITALS: BP 111/56
[2020-06-26 20:00] VITALS: BP 114/64
[2020-06-27] VITALS (8 sets, daily range): BP systolic 111–143; BP diastolic 55–74
[2020-06-27 06:53] LABS: BASO % 0.1 % (0.0-1.0); HEMATOCRIT 32.2 % (42.0-52.0); LYMPH # 0.6 10*3/uL (1.3-4.4); LYMPH % 5.9 % (27.0-41.0); MEAN CELL VOLUME 96.1 fl (80.0-94.0); MEAN CORPUSCULAR HGB 30.1 pg (27.0-31.0); MEAN CORPUSCULAR HGB CONC 31.4 g/dl (33.0-37.0); MEAN PLATELET VOLUME 11.5 fl (9.6-12.3); MONO # 0.6 10*3/uL (0.1-1.0); MONO % 5.4 % (3.0-9.0); NEUT # 8.9 10*3/uL (2.3-7.9); NEUT % 87.1 % (47.0-73.0); PLATELET COUNT AUTOMATED 151 10*3/uL (130-400); RED BLOOD COUNT 3.35 10*6/uL (4.50-5.90); RED CELL DISTRI WIDTH 14.5 % (0-14.5); WHITE BLOOD COUNT 10.2 10*3/uL (4.8-10.8)
[2020-06-27 07:12] LABS: ALBUMIN 2.9 gm/dl (3.1-4.5); CREATININE 2.01 mg/dL (0.70-1.30); POTASSIUM 5.2 mmol/L (3.5-5.1)
[2020-06-28] VITALS: BP 156/73
[2020-06-28 06:36] LABS: BASO % 0.1 % (0.0-1.0); HEMATOCRIT 32.6 % (42.0-52.0); LYMPH % 11.2 % (27.0-41.0); MEAN CELL VOLUME 95.9 fl (80.0-94.0); MEAN CORPUSCULAR HGB 30.3 pg (27.0-31.0); MEAN CORPUSCULAR HGB CONC 31.6 g/dl (33.0-37.0); MEAN PLATELET VOLUME 11.8 fl (9.6-12.3); MONO # 0.4 10*3/uL (0.1-1.0); MONO % 4.6 % (3.0-9.0); NEUT % 82.2 % (47.0-73.0); PLATELET COUNT AUTOMATED 146 10*3/uL (130-400); RED CELL DISTRI WIDTH 14.6 % (0-14.5); WHITE BLOOD COUNT 8.5 10*3/uL (4.8-10.8)
[2020-06-28 06:51] LABS: ALBUMIN 2.9 gm/dl (3.1-4.5); CREATININE 1.65 mg/dL (0.70-1.30); POTASSIUM 5.1 mmol/L (3.5-5.1)
[2020-06-28 08:00] VITALS: BP 153/77
[2020-06-28 12:06] LABS: ACID FAST SPEC PROCESSING Concentration (.)
[2020-06-28] MEDS ORDERED: NOVOLIN 70100 UNIT/2 SC (12:29)
[2020-06-28] MEDS ORDERED: VITAMIN D350 MC3 PO (12:29)
[2020-06-28] MEDS ORDERED: LEVOFLOXACIN500 MG PO (12:31)
== END 2020-06-28 13:04 | disposition home or self-care (01) | DRG 205 ==
LOC: ED 14:18 → EDHOLD 16:13 → 4E 16:13
PROVIDERS: Emergency Medicine; Internal Medicine Critical Care Medicine; Registered Nurse; ADMIT Internal Medicine
PROC: 0BC68ZZ Extirpation of Matter from Right Lower Lobe Bronchus, Via Natural or Artificial Opening Endoscopic (ICD-10-PCS; principal; 2020-06-27)
PROC: 0BC48ZZ Extirpation of Matter from Right Upper Lobe Bronchus, Via Natural or Artificial Opening Endoscopic (ICD-10-PCS; principal; 2020-06-27)
PROC: 0BC38ZZ Extirpation of Matter from Right Main Bronchus, Via Natural or Artificial Opening Endoscopic (ICD-10-PCS; principal; 2020-06-27)
PROC: 0BC18ZZ Extirpation of Matter from Trachea, Via Natural or Artificial Opening Endoscopic (ICD-10-PCS; principal; 2020-06-27)
PROC: 0BC98ZZ Extirpation of Matter from Lingula Bronchus, Via Natural or Artificial Opening Endoscopic (ICD-10-PCS; principal; 2020-06-27)
PROC: 0BCB8ZZ Extirpation of Matter from Left Lower Lobe Bronchus, Via Natural or Artificial Opening Endoscopic (ICD-10-PCS; principal; 2020-06-27)
PROC: 0BC78ZZ Extirpation of Matter from Left Main Bronchus, Via Natural or Artificial Opening Endoscopic (ICD-10-PCS; principal; 2020-06-27)
PROC: 0BC58ZZ Extirpation of Matter from Right Middle Lobe Bronchus, Via Natural or Artificial Opening Endoscopic (ICD-10-PCS; principal; 2020-06-27)
PROC: 0BC88ZZ Extirpation of Matter from Left Upper Lobe Bronchus, Via Natural or Artificial Opening Endoscopic (ICD-10-PCS; principal; 2020-06-27)
DX: M94.0 Chondrocostal junction syndrome [Tietze] (principal); N17.0 Acute kidney failure with tubular necrosis; J44.1 Chronic obstructive pulmonary disease with (acute) exacerbation; I50.32 Chronic diastolic (congestive) heart failure; E44.0 Moderate protein-calorie malnutrition; D68.59 Other primary thrombophilia; I13.0 Hypertensive heart and chronic kidney disease with heart failure and stage 1 through stage 4 chronic kidney disease, or unspecified chronic kidney disease; I48.21 Permanent atrial fibrillation; J45.41 Moderate persistent asthma with (acute) exacerbation; J44.0 Chronic obstructive pulmonary disease with (acute) lower respiratory infection; E83.42 Hypomagnesemia; N18.3 Chronic kidney disease, stage 3 (moderate); E11.22 Type 2 diabetes mellitus with diabetic chronic kidney disease; E78.5 Hyperlipidemia, unspecified; I48.0 Paroxysmal atrial fibrillation; F41.1 Generalized anxiety disorder; F32.9 Major depressive disorder, single episode, unspecified; I25.10 Atherosclerotic heart disease of native coronary artery without angina pectoris; N40.0 Benign prostatic hyperplasia without lower urinary tract symptoms; M10.9 Gout, unspecified; D64.9 Anemia, unspecified; E66.9 Obesity, unspecified; J20.9 Acute bronchitis, unspecified; T38.0X5A Adverse effect of glucocorticoids and synthetic analogues, initial encounter; E11.65 Type 2 diabetes mellitus with hyperglycemia; E78.00 Pure hypercholesterolemia, unspecified; Z96.641 Presence of right artificial hip joint; E11.40 Type 2 diabetes mellitus with diabetic neuropathy, unspecified; K21.9 Gastro-esophageal reflux disease without esophagitis; Z79.4 Long term (current) use of insulin; Z88.1 Allergy status to other antibiotic agents; Z88.0 Allergy status to penicillin; Z95.5 Presence of coronary angioplasty implant and graft; Z90.49 Acquired absence of other specified parts of digestive tract; Z89.422 Acquired absence of other left toe(s); Z87.891 Personal history of nicotine dependence; Z82.49 Family history of ischemic heart disease and other diseases of the circulatory system; Z83.3 Family history of diabetes mellitus; Z82.3 Family history of stroke; Z91.81 History of falling; Z86.73 Personal history of transient ischemic attack (TIA), and cerebral infarction without residual deficits; Z79.899 Other long term (current) drug therapy; Z79.01 Long term (current) use of anticoagulants; Z80.0 Family history of malignant neoplasm of digestive organs; Y92.89 Other specified places as the place of occurrence of the external cause; Z68.35 Body mass index [BMI] 35.0-35.9, adult

== ENCOUNTER → 2020-07-17 | Outpatient (CLI) | payer OTHER ==
[~2020-07-17] MED LIST changes: +VITAMIN D350 MC3 PO
== END | disposition home or self-care (01) ==
LOC: RESCLI 07-12 09:37
PROVIDERS: ATTEND Student in an Organized Health Care Education/Training Program
DX: R51 Headache (principal); M54.5 Low back pain; M54.2 Cervicalgia; E11.65 Type 2 diabetes mellitus with hyperglycemia; E03.9 Hypothyroidism, unspecified; E78.5 Hyperlipidemia, unspecified; E55.9 Vitamin D deficiency, unspecified; I48.19 Other persistent atrial fibrillation; M10.9 Gout, unspecified; I12.9 Hypertensive chronic kidney disease with stage 1 through stage 4 chronic kidney disease, or unspecified chronic kidney disease; N18.3 Chronic kidney disease, stage 3 (moderate); J30.2 Other seasonal allergic rhinitis; J44.9 Chronic obstructive pulmonary disease, unspecified; J20.9 Acute bronchitis, unspecified; K59.00 Constipation, unspecified; H40.9 Unspecified glaucoma; J32.9 Chronic sinusitis, unspecified; G62.9 Polyneuropathy, unspecified; I25.10 Atherosclerotic heart disease of native coronary artery without angina pectoris; K21.9 Gastro-esophageal reflux disease without esophagitis; F17.200 Nicotine dependence, unspecified, uncomplicated; Z79.899 Other long term (current) drug therapy; Z95.818 Presence of other cardiac implants and grafts; Z90.49 Acquired absence of other specified parts of digestive tract; Z98.890 Other specified postprocedural states; Z88.8 Allergy status to other drugs, medicaments and biological substances

== ENCOUNTER 2020-07-25 11:52 | Emergency (ER) | payer OTHER ==
[~2020-07-25] VITALS: Ht 182.8 cm; Wt 101.6 kg
[2020-07-25 12:49] LABS: BASO % 0.3 % (0.0-1.0); EOS # 0.2 10*3/uL (0.0-0.4); EOS % 3.8 % (1.0-4.0); HEMATOCRIT 34.9 % (42.0-52.0); LYMPH # 1.5 10*3/uL (1.3-4.4); LYMPH % 24.6 % (27.0-41.0); MEAN CELL VOLUME 95.4 fl (80.0-94.0); MEAN CORPUSCULAR HGB 30.9 pg (27.0-31.0); MEAN CORPUSCULAR HGB CONC 32.4 g/dl (33.0-37.0); MEAN PLATELET VOLUME 11.3 fl (9.6-12.3); MONO # 0.4 10*3/uL (0.1-1.0); MONO % 6.2 % (3.0-9.0); NEUT % 63.3 % (47.0-73.0); NUCLEATED RED BLOOD CELL 0.3 % (0.0-0.0); PLATELET COUNT AUTOMATED 158 10*3/uL (130-400); RED BLOOD COUNT 3.66 10*6/uL (4.50-5.90); RED CELL DISTRI WIDTH 14.6 % (0-14.5); WHITE BLOOD COUNT 6.3 10*3/uL (4.8-10.8)
[2020-07-25 13:06] LABS: ALBUMIN 2.9 gm/dl (3.1-4.5); CREATININE 1.7 mg/dL (0.70-1.30); POTASSIUM 5.7 mmol/L (3.5-5.1); TOTAL PROTEIN 5.8 gm/dL (6.4-8.2)
[2020-07-25 16:00] VITALS: BP 137/80
== END 2020-07-25 17:27 | disposition home or self-care (01) ==
LOC: ED 11:52
PROVIDERS: Emergency Medicine
DX: R10.9 Unspecified abdominal pain (principal); I25.10 Atherosclerotic heart disease of native coronary artery without angina pectoris; J44.9 Chronic obstructive pulmonary disease, unspecified; E11.9 Type 2 diabetes mellitus without complications; I10 Essential (primary) hypertension; M10.9 Gout, unspecified; I25.2 Old myocardial infarction; F41.9 Anxiety disorder, unspecified; Z88.8 Allergy status to other drugs, medicaments and biological substances; Z88.0 Allergy status to penicillin; Z79.899 Other long term (current) drug therapy; Z79.4 Long term (current) use of insulin

== ENCOUNTER 2020-07-28 16:37 | Observation (INO) | payer OTHER ==
[~2020-07-28] VITALS: Ht 182.8 cm; Wt 101.6 kg
[2020-07-28 16:44] VITALS: BP 119/73
[2020-07-28 17:32] LABS: BASO % 0.4 % (0.0-1.0); EOS # 0.2 10*3/uL (0.0-0.4); EOS % 4.2 % (1.0-4.0); HEMATOCRIT 32.5 % (42.0-52.0); LYMPH # 1.6 10*3/uL (1.3-4.4); LYMPH % 27.1 % (27.0-41.0); MEAN CELL VOLUME 97.6 fl (80.0-94.0); MEAN CORPUSCULAR HGB 30.6 pg (27.0-31.0); MEAN CORPUSCULAR HGB CONC 31.4 g/dl (33.0-37.0); MEAN PLATELET VOLUME 11.5 fl (9.6-12.3); MONO # 0.4 10*3/uL (0.1-1.0); MONO % 6.8 % (3.0-9.0); NEUT # 3.5 10*3/uL (2.3-7.9); NEUT % 60.6 % (47.0-73.0); PLATELET COUNT AUTOMATED 149 10*3/uL (130-400); RED BLOOD COUNT 3.33 10*6/uL (4.50-5.90); RED CELL DISTRI WIDTH 15.2 % (0-14.5); WHITE BLOOD COUNT 5.7 10*3/uL (4.8-10.8)
[2020-07-28 17:51] VITALS: BP 121/78
[2020-07-28 17:51] LABS: ALBUMIN 2.8 gm/dl (3.1-4.5); ALKALINE PHOSPHATASE 118 U/L (45-117); BUN 44 mg/dl (7-24); CHLORIDE 117 mmol/L (98-107); CREATININE 2.17 mg/dL (0.70-1.30); POTASSIUM 5.1 mmol/L (3.5-5.1); SGOT/AST 31 IU/L (3-35); SGPT/ALT 43 U/L (12-78); SODIUM 144 mmol/L (136-145); TOTAL PROTEIN 5.8 gm/dL (6.4-8.2)
[2020-07-28 17:54] LABS: TROPONIN I < 0.015 ng/ml (<0.045)
[2020-07-28 17:59] LABS: ACT PARTIAL THROMBO TIME 40.9 SECONDS (20.0-32.1); INTERNATIONAL NORM RATIO 1.9 (2.0-3.5)
[2020-07-28] MEDS ORDERED: LISINOPRIL10 M1 PO (18:24)
[2020-07-28 19:24] VITALS: BP 174/85
[2020-07-28 19:32] VITALS: BP 111/62
[2020-07-29] VITALS: BP 98/42
[2020-07-29 06:09] LABS: BASO % 0.2 % (0.0-1.0); EOS # 0.2 10*3/uL (0.0-0.4); EOS % 3.8 % (1.0-4.0); HEMATOCRIT 32.1 % (42.0-52.0); LYMPH # 1.3 10*3/uL (1.3-4.4); LYMPH % 27.3 % (27.0-41.0); MEAN CELL VOLUME 98.2 fl (80.0-94.0); MEAN CORPUSCULAR HGB 30.6 pg (27.0-31.0); MEAN CORPUSCULAR HGB CONC 31.2 g/dl (33.0-37.0); MEAN PLATELET VOLUME 11.5 fl (9.6-12.3); MONO # 0.3 10*3/uL (0.1-1.0); MONO % 7.1 % (3.0-9.0); NEUT # 2.9 10*3/uL (2.3-7.9); NEUT % 60.6 % (47.0-73.0); PLATELET COUNT AUTOMATED 120 10*3/uL (130-400); RED BLOOD COUNT 3.27 10*6/uL (4.50-5.90); WHITE BLOOD COUNT 4.8 10*3/uL (4.8-10.8)
[2020-07-29 06:25] LABS: CREATININE 1.92 mg/dL (0.70-1.30); POTASSIUM 5.1 mmol/L (3.5-5.1)
[2020-07-29 08:00] VITALS: BP 117/69
[2020-07-29 12:00] VITALS: BP 105/51
[2020-07-29 16:00] VITALS: BP 124/60
[2020-07-29 20:00] VITALS: BP 119/69
[2020-07-30] VITALS: BP 119/58
[2020-07-30 06:34] LABS: BASO % 0.4 % (0.0-1.0); EOS # 0.2 10*3/uL (0.0-0.4); EOS % 4.1 % (1.0-4.0); HEMATOCRIT 31.4 % (42.0-52.0); LYMPH # 1.6 10*3/uL (1.3-4.4); LYMPH % 34.5 % (27.0-41.0); MEAN CELL VOLUME 100.6 fl (80.0-94.0); MEAN CORPUSCULAR HGB 31.4 pg (27.0-31.0); MEAN CORPUSCULAR HGB CONC 31.2 g/dl (33.0-37.0); MEAN PLATELET VOLUME 12.8 fl (9.6-12.3); MONO # 0.3 10*3/uL (0.1-1.0); NEUT # 2.4 10*3/uL (2.3-7.9); NEUT % 53.3 % (47.0-73.0); PLATELET COUNT AUTOMATED 123 10*3/uL (130-400); RED BLOOD COUNT 3.12 10*6/uL (4.50-5.90); RED CELL DISTRI WIDTH 15.4 % (0-14.5); WHITE BLOOD COUNT 4.6 10*3/uL (4.8-10.8)
[2020-07-30 06:57] LABS: CREATININE 2.08 mg/dL (0.70-1.30); POTASSIUM 5.3 mmol/L (3.5-5.1)
[2020-07-30 08:00] VITALS: BP 101/62
[2020-07-30] MEDS ORDERED: NOVOLIN 70100 UNIT/2 SC (10:25)
== END 2020-07-30 12:15 | disposition home or self-care (01) ==
LOC: ED 16:37 → EDHOLD 18:15 → 4E 18:15
PROVIDERS: Emergency Medicine; Internal Medicine; Student in an Organized Health Care Education/Training Program; ADMIT Internal Medicine; ATTEND Internal Medicine
DX: R42 Dizziness and giddiness (principal); N17.0 Acute kidney failure with tubular necrosis; I13.0 Hypertensive heart and chronic kidney disease with heart failure and stage 1 through stage 4 chronic kidney disease, or unspecified chronic kidney disease; N18.3 Chronic kidney disease, stage 3 (moderate); I50.32 Chronic diastolic (congestive) heart failure; N40.0 Benign prostatic hyperplasia without lower urinary tract symptoms; E83.42 Hypomagnesemia; E87.8 Other disorders of electrolyte and fluid balance, not elsewhere classified; F41.1 Generalized anxiety disorder; E11.40 Type 2 diabetes mellitus with diabetic neuropathy, unspecified; E11.22 Type 2 diabetes mellitus with diabetic chronic kidney disease; K44.9 Diaphragmatic hernia without obstruction or gangrene; D68.59 Other primary thrombophilia; E55.9 Vitamin D deficiency, unspecified; K21.9 Gastro-esophageal reflux disease without esophagitis; J44.9 Chronic obstructive pulmonary disease, unspecified

== ENCOUNTER 2020-08-18 16:11 | Emergency (ER) | payer OTHER ==
[2020-08-18 16:17] VITALS: BP 143/64
[2020-08-18 16:33] LABS: BASO # 0.1 10*3/uL (0.0-0.1); BASO % 0.6 % (0.0-1.0); EOS # 0.4 10*3/uL (0.0-0.4); HEMATOCRIT 35.7 % (42.0-52.0); LYMPH # 3.2 10*3/uL (1.3-4.4); LYMPH % 33.4 % (27.0-41.0); MEAN CELL VOLUME 94.9 fl (80.0-94.0); MEAN CORPUSCULAR HGB 30.6 pg (27.0-31.0); MEAN CORPUSCULAR HGB CONC 32.2 g/dl (33.0-37.0); MONO # 0.7 10*3/uL (0.1-1.0); MONO % 7.1 % (3.0-9.0); NEUT # 5.2 10*3/uL (2.3-7.9); NEUT % 54.2 % (47.0-73.0); NUCLEATED RED BLOOD CELL 0.2 % (0.0-0.0); PLATELET COUNT AUTOMATED 193 10*3/uL (130-400); RED BLOOD COUNT 3.76 10*6/uL (4.50-5.90); RED CELL DISTRI WIDTH 14.7 % (0-14.5); WHITE BLOOD COUNT 9.5 10*3/uL (4.8-10.8)
[2020-08-18 16:50] LABS: ALBUMIN 3.3 gm/dl (3.1-4.5); CREATININE 2.31 mg/dL (0.70-1.30); POTASSIUM 4.7 mmol/L (3.5-5.1); TOTAL PROTEIN 6.8 gm/dL (6.4-8.2)
== END 2020-08-18 17:02 | disposition home or self-care (01) ==
LOC: ED 16:11
PROVIDERS: Nurse Practitioner Family
DX: Z00.01 Encounter for general adult medical examination with abnormal findings (principal); I25.10 Atherosclerotic heart disease of native coronary artery without angina pectoris; J44.9 Chronic obstructive pulmonary disease, unspecified; E11.9 Type 2 diabetes mellitus without complications; M10.9 Gout, unspecified; Z79.899 Other long term (current) drug therapy; Z88.8 Allergy status to other drugs, medicaments and biological substances; Z79.4 Long term (current) use of insulin

== ENCOUNTER 2020-08-19 21:02 | Emergency (ER) | payer OTHER ==
[~2020-08-19] VITALS: Wt 102.1 kg
[2020-08-19 21:03] VITALS: BP 98/59
[2020-08-19 21:20] LABS: BASO % 0.4 % (0.0-1.0); EOS # 0.4 10*3/uL (0.0-0.4); HEMATOCRIT 32.7 % (42.0-52.0); LYMPH # 2.6 10*3/uL (1.3-4.4); LYMPH % 36.7 % (27.0-41.0); MEAN CELL VOLUME 95.1 fl (80.0-94.0); MEAN CORPUSCULAR HGB 31.1 pg (27.0-31.0); MEAN CORPUSCULAR HGB CONC 32.7 g/dl (33.0-37.0); MEAN PLATELET VOLUME 11.1 fl (9.6-12.3); MONO # 0.5 10*3/uL (0.1-1.0); MONO % 7.2 % (3.0-9.0); NEUT # 3.5 10*3/uL (2.3-7.9); NEUT % 49.8 % (47.0-73.0); PLATELET COUNT AUTOMATED 171 10*3/uL (130-400); RED BLOOD COUNT 3.44 10*6/uL (4.50-5.90); WHITE BLOOD COUNT 7.1 10*3/uL (4.8-10.8)
[2020-08-19 21:37] LABS: ALKALINE PHOSPHATASE 124 U/L (45-117); BUN 52 mg/dl (7-24); CHLORIDE 113 mmol/L (98-107); POTASSIUM 4.9 mmol/L (3.5-5.1); SGOT/AST 22 IU/L (3-35); SGPT/ALT 33 U/L (12-78); SODIUM 140 mmol/L (136-145)
[2020-08-19 21:38] LABS: TROPONIN I < 0.015 ng/ml (<0.045)
== END 2020-08-19 23:06 | disposition left against medical advice (07) ==
LOC: ED 21:02
PROVIDERS: Internal Medicine
DX: R07.9 Chest pain, unspecified (principal); N17.9 Acute kidney failure, unspecified; D64.9 Anemia, unspecified; F10.10 Alcohol abuse, uncomplicated; Z88.0 Allergy status to penicillin; Z88.1 Allergy status to other antibiotic agents; Z79.899 Other long term (current) drug therapy; Z87.891 Personal history of nicotine dependence; Y90.9 Presence of alcohol in blood, level not specified

== ENCOUNTER 2020-08-27 02:22 | Emergency (ER) | payer OTHER ==
[~2020-08-27] VITALS: Ht 185.4 cm; Wt 127.0 kg
[2020-08-27 03:00] VITALS: BP 152/84
[2020-08-27 03:55] LABS: BASO % 0.9 % (0.0-1.0); EOS # 0.3 10*3/uL (0.0-0.4); EOS % 5.8 % (1.0-4.0); HEMATOCRIT 35.3 % (42.0-52.0); LYMPH # 1.7 10*3/uL (1.3-4.4); LYMPH % 35.8 % (27.0-41.0); MEAN CELL VOLUME 98.3 fl (80.0-94.0); MEAN CORPUSCULAR HGB 30.6 pg (27.0-31.0); MEAN CORPUSCULAR HGB CONC 31.2 g/dl (33.0-37.0); MEAN PLATELET VOLUME 10.9 fl (9.6-12.3); MONO # 0.4 10*3/uL (0.1-1.0); MONO % 7.9 % (3.0-9.0); NEUT # 2.2 10*3/uL (2.3-7.9); NEUT % 47.7 % (47.0-73.0); NUCLEATED RED BLOOD CELL 0.4 % (0.0-0.0); PLATELET COUNT AUTOMATED 146 10*3/uL (130-400); RED BLOOD COUNT 3.59 10*6/uL (4.50-5.90); RED CELL DISTRI WIDTH 15.3 % (0-14.5); WHITE BLOOD COUNT 4.7 10*3/uL (4.8-10.8)
[2020-08-27 04:04] LABS: INTERNATIONAL NORM RATIO 1.4 (2.0-3.5)
[2020-08-27 04:12] LABS: ALBUMIN 3.1 gm/dl (3.1-4.5); ALKALINE PHOSPHATASE 128 U/L (45-117); BUN 49 mg/dl (7-24); CHLORIDE 118 mmol/L (98-107); CREATININE 1.65 mg/dL (0.70-1.30); POTASSIUM 5.4 mmol/L (3.5-5.1); SGOT/AST 19 IU/L (3-35); SGPT/ALT 27 U/L (12-78); SODIUM 142 mmol/L (136-145); TOTAL PROTEIN 6.1 gm/dL (6.4-8.2)
[2020-08-27 04:13] LABS: TROPONIN I < 0.015 ng/ml (<0.045)
== END 2020-08-27 06:08 | disposition home or self-care (01) ==
LOC: ED 02:22
PROVIDERS: Emergency Medicine
DX: I13.0 Hypertensive heart and chronic kidney disease with heart failure and stage 1 through stage 4 chronic kidney disease, or unspecified chronic kidney disease (principal); E11.22 Type 2 diabetes mellitus with diabetic chronic kidney disease; N18.30 Chronic kidney disease, stage 3 unspecified; I48.91 Unspecified atrial fibrillation; J44.9 Chronic obstructive pulmonary disease, unspecified; K21.9 Gastro-esophageal reflux disease without esophagitis; M10.9 Gout, unspecified; E78.5 Hyperlipidemia, unspecified; Z88.0 Allergy status to penicillin; Z88.1 Allergy status to other antibiotic agents; Z79.899 Other long term (current) drug therapy; Z87.891 Personal history of nicotine dependence

== ENCOUNTER 2020-09-02 17:28 | Emergency (ER) | payer OTHER ==
[~2020-09-02] VITALS: Ht 172.7 cm; Wt 79.4 kg
[2020-09-02 18:02] LABS: BASO % 0.6 % (0.0-1.0); EOS # 0.4 10*3/uL (0.0-0.4); EOS % 5.2 % (1.0-4.0); HEMATOCRIT 34.4 % (42.0-52.0); LYMPH # 1.8 10*3/uL (1.3-4.4); LYMPH % 25.7 % (27.0-41.0); MEAN CELL VOLUME 98.3 fl (80.0-94.0); MEAN CORPUSCULAR HGB 30.9 pg (27.0-31.0); MEAN CORPUSCULAR HGB CONC 31.4 g/dl (33.0-37.0); MEAN PLATELET VOLUME 11.1 fl (9.6-12.3); MONO # 0.4 10*3/uL (0.1-1.0); NEUT # 4.5 10*3/uL (2.3-7.9); NEUT % 62.2 % (47.0-73.0); PLATELET COUNT AUTOMATED 131 10*3/uL (130-400); RED CELL DISTRI WIDTH 15.6 % (0-14.5); WHITE BLOOD COUNT 7.2 10*3/uL (4.8-10.8)
[2020-09-02 18:13] LABS: ACT PARTIAL THROMBO TIME 29.1 SECONDS (20.0-32.1); INTERNATIONAL NORM RATIO 1.2 (2.0-3.5)
[2020-09-02 18:19] LABS: ALBUMIN 3.1 gm/dl (3.1-4.5); ALKALINE PHOSPHATASE 126 U/L (45-117); BUN 37 mg/dl (7-24); CHLORIDE 112 mmol/L (98-107); CREATININE 1.61 mg/dL (0.70-1.30); POTASSIUM 4.7 mmol/L (3.5-5.1); SGOT/AST 15 IU/L (3-35); SGPT/ALT 21 U/L (12-78); SODIUM 144 mmol/L (136-145); TOTAL PROTEIN 6.1 gm/dL (6.4-8.2)
[2020-09-02 18:20] LABS: TROPONIN I < 0.015 ng/ml (<0.045)
[2020-09-02 21:10] VITALS: BP 135/84
[2020-09-26] MEDS ORDERED: MIRALAX POWDER17 G1 PO (13:52)
== END 2020-09-03 04:57 | disposition home or self-care (01) ==
LOC: ED 17:28
PROVIDERS: Emergency Medicine
DX: E83.42 Hypomagnesemia (principal); T50.995A Adverse effect of other drugs, medicaments and biological substances, initial encounter; Z88.1 Allergy status to other antibiotic agents; Z88.0 Allergy status to penicillin; Z79.899 Other long term (current) drug therapy; Z87.891 Personal history of nicotine dependence; Y92.89 Other specified places as the place of occurrence of the external cause

== ENCOUNTER 2020-09-22 12:35 | Emergency (ER) | payer OTHER ==
[~2020-09-22] VITALS: Ht 182.8 cm; Wt 108.9 kg
[2020-09-22 13:11] LABS: BASO # 0.1 10*3/uL (0.0-0.1); BASO % 0.8 % (0.0-1.0); EOS # 0.4 10*3/uL (0.0-0.4); HEMATOCRIT 36.3 % (42.0-52.0); LYMPH # 1.5 10*3/uL (1.3-4.4); LYMPH % 22.1 % (27.0-41.0); MEAN CELL VOLUME 97.3 fl (80.0-94.0); MEAN CORPUSCULAR HGB 31.1 pg (27.0-31.0); MEAN PLATELET VOLUME 11.5 fl (9.6-12.3); MONO # 0.4 10*3/uL (0.1-1.0); NEUT # 4.3 10*3/uL (2.3-7.9); NEUT % 64.8 % (47.0-73.0); PLATELET COUNT AUTOMATED 143 10*3/uL (130-400); RED BLOOD COUNT 3.73 10*6/uL (4.50-5.90); RED CELL DISTRI WIDTH 14.4 % (0-14.5); WHITE BLOOD COUNT 6.6 10*3/uL (4.8-10.8)
[2020-09-22 13:27] LABS: ALBUMIN 3.1 gm/dl (3.1-4.5); ALKALINE PHOSPHATASE 144 U/L (45-117); BUN 28 mg/dl (7-24); CHLORIDE 110 mmol/L (98-107); CREATININE 1.69 mg/dL (0.70-1.30); POTASSIUM 5.2 mmol/L (3.5-5.1); SGOT/AST 23 IU/L (3-35); SGPT/ALT 22 U/L (12-78); SODIUM 141 mmol/L (136-145); TOTAL PROTEIN 6.6 gm/dL (6.4-8.2)
[2020-09-22 13:28] LABS: TROPONIN I < 0.015 ng/ml (<0.045)
[2020-09-22 13:30] LABS: ACT PARTIAL THROMBO TIME 41.6 SECONDS (20.0-32.1)
[2020-09-22 16:01] VITALS: BP 143/68
[2020-09-22] MEDS ORDERED: MIRALAX POWDER17 G1 PO ×2 (16:57)
[2020-09-26] MEDS ORDERED: MIRALAX POWDER17 G1 PO (13:52)
== END 2020-09-22 17:01 | disposition home or self-care (01) ==
LOC: ED 12:35
PROVIDERS: Emergency Medicine
DX: K59.00 Constipation, unspecified (principal); Z88.8 Allergy status to other drugs, medicaments and biological substances; Z79.899 Other long term (current) drug therapy

== ENCOUNTER 2020-10-16 10:29 | Emergency (ER) | payer OTHER ==
[~2020-10-16] VITALS: Ht 182.8 cm; Wt 122.5 kg
[~2020-10-16 10:29] MED LIST changes: +MIRALAX POWDER17 G1 PO
[2020-10-16 10:33] VITALS: BP 123/73
== END 2020-10-16 11:25 | disposition home or self-care (01) ==
LOC: ED 10:29
DX: R19.7 Diarrhea, unspecified (principal); R53.83 Other fatigue; I25.10 Atherosclerotic heart disease of native coronary artery without angina pectoris; J44.9 Chronic obstructive pulmonary disease, unspecified; E11.9 Type 2 diabetes mellitus without complications; I10 Essential (primary) hypertension; I25.2 Old myocardial infarction; E78.5 Hyperlipidemia, unspecified; F41.9 Anxiety disorder, unspecified; Z20.828 Contact with and (suspected) exposure to other viral communicable diseases; Z88.1 Allergy status to other antibiotic agents; Z88.8 Allergy status to other drugs, medicaments and biological substances; Z88.0 Allergy status to penicillin; Z79.899 Other long term (current) drug therapy; Z79.4 Long term (current) use of insulin; Z89.422 Acquired absence of other left toe(s); Z95.5 Presence of coronary angioplasty implant and graft; Z90.49 Acquired absence of other specified parts of digestive tract; Z87.891 Personal history of nicotine dependence; Z86.73 Personal history of transient ischemic attack (TIA), and cerebral infarction without residual deficits; Z96.641 Presence of right artificial hip joint

== ENCOUNTER → 2020-10-30 | Outpatient (CLI) | payer OTHER ==
[~2020-10-30] MED LIST changes: +LIPITOR80 MG PO
== END | disposition home or self-care (01) ==
LOC: RESCLI 00:17
PROVIDERS: ATTEND Internal Medicine
DX: R30.0 Dysuria (principal); I10 Essential (primary) hypertension; E03.9 Hypothyroidism, unspecified; K21.9 Gastro-esophageal reflux disease without esophagitis; E55.9 Vitamin D deficiency, unspecified; M10.9 Gout, unspecified; J30.2 Other seasonal allergic rhinitis; J44.9 Chronic obstructive pulmonary disease, unspecified; E11.65 Type 2 diabetes mellitus with hyperglycemia; H40.9 Unspecified glaucoma; I25.10 Atherosclerotic heart disease of native coronary artery without angina pectoris; E78.5 Hyperlipidemia, unspecified; I48.91 Unspecified atrial fibrillation; G62.9 Polyneuropathy, unspecified; Z79.899 Other long term (current) drug therapy; Z79.82 Long term (current) use of aspirin; Z88.8 Allergy status to other drugs, medicaments and biological substances

== ENCOUNTER → 2020-10-30 | Outpatient (CLI) | payer OTHER ==
[2020-10-30 13:37] LABS: BILIRUBIN Negative (Negative); BLOOD Negative (Negative); CLARITY Clear (Clear); COLOR Yellow (Yellow); GLUCOSE Negative (Negative); KETONE Negative (Negative); LEUKO ESTERASE Negative (Negative); NITRITE Negative (Negative); UROBILINOGEN 0.2 E.U./dl (0.0-1.0)
[2020-10-30 13:48] LABS: EPITHELIAL CELLS 0-2
[2020-10-30 13:50] LABS: CREATININE 2.34 mg/dL (0.70-1.30); POTASSIUM 4.7 mmol/L (3.5-5.1)
== END | disposition home or self-care (01) ==
LOC: LAB 12:58
PROVIDERS: Student in an Organized Health Care Education/Training Program; ATTEND Internal Medicine
DX: E11.65 Type 2 diabetes mellitus with hyperglycemia (principal); R30.0 Dysuria

== ENCOUNTER 2020-10-31 11:31 | Observation (INO) | payer OTHER ==
[~2020-10-31 11:31] MED LIST changes: -LIPITOR80 MG PO
[2020-10-31 12:01] VITALS: BP 119/61
[2020-10-31 12:27] LABS: BILIRUBIN Negative (Negative); BLOOD Negative (Negative); CLARITY Clear (Clear); COLOR Yellow (Yellow); GLUCOSE Negative (Negative); KETONE Negative (Negative); LEUKO ESTERASE Trace (Negative); NITRITE Negative (Negative); UROBILINOGEN 0.2 E.U./dl (0.0-1.0)
[2020-10-31 12:35] LABS: BASO % 0.5 % (0.0-1.0); EOS # 0.4 10*3/uL (0.0-0.4); HEMATOCRIT 38.7 % (42.0-52.0); LYMPH # 1.4 10*3/uL (1.3-4.4); LYMPH % 22.9 % (27.0-41.0); MEAN CORPUSCULAR HGB 30.7 pg (27.0-31.0); MEAN PLATELET VOLUME 11.4 fl (9.6-12.3); MONO # 0.4 10*3/uL (0.1-1.0); MONO % 6.8 % (3.0-9.0); NEUT # 3.8 10*3/uL (2.3-7.9); NEUT % 62.3 % (47.0-73.0); PLATELET COUNT AUTOMATED 144 10*3/uL (130-400); RED BLOOD COUNT 3.91 10*6/uL (4.50-5.90); RED CELL DISTRI WIDTH 13.8 % (0-14.5); WHITE BLOOD COUNT 6.2 10*3/uL (4.8-10.8)
[2020-10-31 12:44] LABS: ACT PARTIAL THROMBO TIME 40.9 SECONDS (20.0-32.1); INTERNATIONAL NORM RATIO 1.7 (2.0-3.5)
[2020-10-31 12:47] LABS: BACTERIA TRACE
[2020-10-31 12:52] LABS: ALBUMIN 3.1 gm/dl (3.1-4.5); CREATININE 2.36 mg/dL (0.70-1.30); POTASSIUM 5.5 mmol/L (3.5-5.1); TOTAL PROTEIN 6.4 gm/dL (6.4-8.2)
--- NOTE | 2020-10-31 15:02 | NUR ---
PT IS UPSET ABOUT NOT GETTING A BED UP ON THE FLOOR. PT WANTING TO BE TRANSFERRED TO ANOTHER HOSPITAL. Samanta MATTA IN ROOM AT THIS TIME.
--- NOTE | 2020-10-31 21:03 | NUR ---
RESTING IN BED WITH EYES CLOSED, CALL LIGHT WITHIN REACH, NO ACUTE DISTRESS NOTED UPON THIS RN EXITING THE ROOM
--- NOTE | 2020-10-31 21:12 | NUR ---
PT UP AMBULATING TO RESTROOM, GAIT STEADY, NO ACUTE DISTRESS NOTED
[2020-10-31 22:48] VITALS: BP 122/68
--- NOTE | 2020-10-31 22:50 | NUR ---
PT RESTING IN BED WITH EYES CLOSED, CALL LIGHT WITHIN REACH, NO ACUTE DISTRESS NOTED UPON THIS RN EXITING THE ROOM
--- NOTE | 2020-11-01 00:45 | NUR ---
PT RESTING IN BED WITH EYES CLOSED, CALL LIGHT WITHIN REACH, NO ACUTE DISTRESS NOTED UPON THIS RN EXITING THE ROOM
--- NOTE | 2020-11-01 02:10 | NUR ---
PT UP AMBULATING IN ROOM, GAIT STEADY, NO ACUTE DISTRESS NOTED
--- NOTE | 2020-11-01 04:50 | NUR ---
PT RESTING IN BED WITH EYES CLOSED, CALL LIGHT WITHIN REACH, NO ACUTE DISTRESS NOTED UPON THIS RN EXITING THE ROOM
[2020-11-01 06:09] LABS: BASO % 0.5 % (0.0-1.0); EOS # 0.4 10*3/uL (0.0-0.4); EOS % 7.3 % (1.0-4.0); HEMATOCRIT 38.4 % (42.0-52.0); LYMPH # 1.3 10*3/uL (1.3-4.4); LYMPH % 22.9 % (27.0-41.0); MEAN CELL VOLUME 98.7 fl (80.0-94.0); MEAN CORPUSCULAR HGB 31.1 pg (27.0-31.0); MEAN CORPUSCULAR HGB CONC 31.5 g/dl (33.0-37.0); MEAN PLATELET VOLUME 11.6 fl (9.6-12.3); MONO # 0.5 10*3/uL (0.1-1.0); MONO % 8.7 % (3.0-9.0); NEUT # 3.5 10*3/uL (2.3-7.9); NEUT % 60.3 % (47.0-73.0); PLATELET COUNT AUTOMATED 136 10*3/uL (130-400); RED BLOOD COUNT 3.89 10*6/uL (4.50-5.90); RED CELL DISTRI WIDTH 13.7 % (0-14.5); WHITE BLOOD COUNT 5.9 10*3/uL (4.8-10.8)
[2020-11-01 06:15] LABS: CREATININE 1.93 mg/dL (0.70-1.30); FREE T4 1.07 ng/dl (0.76-1.46); POTASSIUM 5.4 mmol/L (3.5-5.1); TOTAL PROTEIN 6.3 gm/dL (6.4-8.2)
[2020-11-01 06:21] LABS: THYROID STIM HORMONE (HS) 1.83 uIU/ml (0.358-4.75)
--- NOTE | 2020-11-01 07:10 | NUR ---
UNKNOWN IF PATIENT RECIEVED XALENTO OR HUMALOG AT 1800 AND 2200 LAST NIGHT.
--- NOTE | 2020-11-01 07:55 | NUR ---
PER DOCTOR SOLOMON ORDER, HOLD OFF ON INSULIN AT THIS TIME. [id number].
[2020-11-01 08:03] LABS: VITAMIN D, 25-HYDROXY 39.2 ng/mL (30-100)
[2020-11-01] MEDS ORDERED: LIPITOR80 MG PO (08:32)
--- NOTE | 2020-11-01 08:49 | NUR ---
PATIENT RESTING IN BED WITH EYES CLOSED. RR EASY AND NON-LABORED. CALL LIGHT WITHIN REACH. PATIENT APPEARS TO BE IN NO DISTRESS AT THIS TIME.
--- NOTE | 2020-11-01 09:30 | NUR ---
PATIENT C/O ABDOMINAL PAIN AT THIS TIME. NOTIFIED DR. CARBAJAL.
--- NOTE | 2020-11-01 10:17 | NUR ---
PATIENT IN ROOM EATING BREAKFAST AT THIS TIME.
[2020-11-01 10:21] VITALS: BP 132/70
== END 2020-11-01 12:20 | disposition home or self-care (01) ==
LOC: ED 11:31 → EDHOLD 16:24
PROVIDERS: Emergency Medicine; Registered Nurse; ADMIT Student in an Organized Health Care Education/Training Program; ATTEND Student in an Organized Health Care Education/Training Program
DX: R11.2 Nausea with vomiting, unspecified (principal); E86.0 Dehydration; E87.5 Hyperkalemia; E44.0 Moderate protein-calorie malnutrition; R80.9 Proteinuria, unspecified; R10.9 Unspecified abdominal pain; D64.9 Anemia, unspecified; D68.9 Coagulation defect, unspecified; N17.9 Acute kidney failure, unspecified; E87.8 Other disorders of electrolyte and fluid balance, not elsewhere classified; R73.9 Hyperglycemia, unspecified; Z79.899 Other long term (current) drug therapy

== ENCOUNTER 2020-11-27 21:08 | Emergency (ER) | payer OTHER ==
[~2020-11-27 21:08] MED LIST changes: +LIPITOR80 MG PO
[2020-11-27 21:10] VITALS: BP 91/58
[2020-11-27 22:33] LABS: BASO % 0.4 % (0.0-1.0); EOS # 0.3 10*3/uL (0.0-0.4); EOS % 4.3 % (1.0-4.0); HEMATOCRIT 35.4 % (42.0-52.0); LYMPH % 29.6 % (27.0-41.0); MEAN CELL VOLUME 100.3 fl (80.0-94.0); MEAN CORPUSCULAR HGB 30.3 pg (27.0-31.0); MEAN CORPUSCULAR HGB CONC 30.2 g/dl (33.0-37.0); MEAN PLATELET VOLUME 11.6 fl (9.6-12.3); MONO # 0.5 10*3/uL (0.1-1.0); MONO % 6.9 % (3.0-9.0); NEUT % 58.2 % (47.0-73.0); PLATELET COUNT AUTOMATED 136 10*3/uL (130-400); RED BLOOD COUNT 3.53 10*6/uL (4.50-5.90); RED CELL DISTRI WIDTH 14.7 % (0-14.5); WHITE BLOOD COUNT 6.8 10*3/uL (4.8-10.8)
[2020-11-27 23:03] LABS: ALBUMIN 2.8 gm/dl (3.1-4.5); CREATININE 2.16 mg/dL (0.70-1.30); POTASSIUM 4.3 mmol/L (3.5-5.1); TOTAL PROTEIN 5.9 gm/dL (6.4-8.2)
== END 2020-11-27 23:45 | disposition home or self-care (01) ==
LOC: ED 21:08
PROVIDERS: Nurse Practitioner Family
DX: M25.551 Pain in right hip (principal); Z88.1 Allergy status to other antibiotic agents; Z79.899 Other long term (current) drug therapy

== ENCOUNTER 2020-12-03 08:42 | Inpatient (IN) | payer OTHER ==
[2020-12-03] VITALS (14 sets, daily range): BP systolic 119–149; BP diastolic 68–83
[~2020-12-03] VITALS: Ht 190.5 cm; Wt 117.2 kg
[2020-12-03 09:11] LABS: BASO % 0.4 % (0.0-1.0); EOS # 0.4 10*3/uL (0.0-0.4); EOS % 5.2 % (1.0-4.0); HEMATOCRIT 36.6 % (42.0-52.0); LYMPH # 1.2 10*3/uL (1.3-4.4); LYMPH % 15.8 % (27.0-41.0); MEAN CORPUSCULAR HGB 30.3 pg (27.0-31.0); MEAN CORPUSCULAR HGB CONC 30.3 g/dl (33.0-37.0); MEAN PLATELET VOLUME 11.2 fl (9.6-12.3); MONO # 0.5 10*3/uL (0.1-1.0); MONO % 7.4 % (3.0-9.0); NEUT # 5.1 10*3/uL (2.3-7.9); NEUT % 70.5 % (47.0-73.0); PLATELET COUNT AUTOMATED 155 10*3/uL (130-400); RED BLOOD COUNT 3.66 10*6/uL (4.50-5.90); RED CELL DISTRI WIDTH 14.7 % (0-14.5); WHITE BLOOD COUNT 7.3 10*3/uL (4.8-10.8)
[2020-12-03 09:22] LABS: ACT PARTIAL THROMBO TIME 44.4 SECONDS (20.0-32.1)
[2020-12-03 09:30] LABS: ALBUMIN 3.1 gm/dl (3.1-4.5); ALKALINE PHOSPHATASE 148 U/L (45-117); BUN 23 mg/dl (7-24); CHLORIDE 110 mmol/L (98-107); SGOT/AST 31 IU/L (3-35); SGPT/ALT 52 U/L (12-78); SODIUM 140 mmol/L (136-145); TOTAL PROTEIN 6.5 gm/dL (6.4-8.2)
[2020-12-03 09:32] LABS: TROPONIN I < 0.015 ng/ml (<0.045)
[2020-12-03] MEDS ORDERED: ALOGLIPTIN12.5 MG PO (14:20)
[2020-12-03] MEDS ORDERED: COSOPT 2%-0.5%10 ML OPH (14:21)
[2020-12-03] MEDS ORDERED: LATANOPROST 0.7.5 ML OP (14:22)
[2020-12-03] MEDS ORDERED: NORVASC5 MG PO (14:23)
[2020-12-03] MEDS ORDERED: ASPIRIN81 M1 PO (14:24)
[2020-12-03] MEDS ORDERED: HYDR25T PO (14:25)
[2020-12-03] MEDS ORDERED: GLIMEPIRIDE2 MG PO (14:25)
[2020-12-03] MEDS ORDERED: TRULICITY1.5 MG/0.5 SC (14:27)
[2020-12-03] MEDS ORDERED: NOVOLOG MIX 70/33 ML SC (14:28)
[2020-12-03] MEDS ORDERED: MAGNESIUM CHLOR64 MG PO (14:30)
[2020-12-03] MEDS ORDERED: SENOKOT PO (14:31)
[2020-12-03] MEDS ORDERED: LEVOTHYROXINE112 MC1 PO (14:32)
[2020-12-03 15:24] LABS: ABG BASE EXCESS -0.9 mmol/L (-2.0-2.0); ARTERIAL BLOOD GAS PH 7.346 (7.35-7.45)
[2020-12-04] VITALS: BP 127/84
[2020-12-04 07:17] LABS: BASO % 0.4 % (0.0-1.0); EOS # 0.3 10*3/uL (0.0-0.4); EOS % 5.7 % (1.0-4.0); HEMATOCRIT 35.2 % (42.0-52.0); LYMPH # 1.3 10*3/uL (1.3-4.4); LYMPH % 24.6 % (27.0-41.0); MEAN CELL VOLUME 101.1 fl (80.0-94.0); MEAN CORPUSCULAR HGB CONC 30.7 g/dl (33.0-37.0); MEAN PLATELET VOLUME 11.7 fl (9.6-12.3); MONO # 0.4 10*3/uL (0.1-1.0); MONO % 7.9 % (3.0-9.0); NEUT # 3.1 10*3/uL (2.3-7.9); PLATELET COUNT AUTOMATED 132 10*3/uL (130-400); RED BLOOD COUNT 3.48 10*6/uL (4.50-5.90); RED CELL DISTRI WIDTH 14.7 % (0-14.5); WHITE BLOOD COUNT 5.1 10*3/uL (4.8-10.8)
[2020-12-04 07:32] LABS: ALBUMIN 2.8 gm/dl (3.1-4.5); ALKALINE PHOSPHATASE 125 U/L (45-117); BUN 25 mg/dl (7-24); CHLORIDE 108 mmol/L (98-107); CREATININE 1.38 mg/dL (0.70-1.30); POTASSIUM 4.6 mmol/L (3.5-5.1); SGOT/AST 14 IU/L (3-35); SGPT/ALT 38 U/L (12-78); SODIUM 142 mmol/L (136-145)
[2020-12-04 08:00] VITALS: BP 121/68
[2020-12-04 12:00] VITALS: BP 140/87
[2020-12-04 18:00] VITALS: BP 128/57
[2020-12-04 20:24] VITALS: BP 118/71
[2020-12-05] VITALS: BP 100/51
[2020-12-05 08:00] VITALS: BP 110/62
[2020-12-05 09:33] LABS: CREATININE 1.52 mg/dL (0.70-1.30); POTASSIUM 4.5 mmol/L (3.5-5.1)
[2020-12-05 12:00] VITALS: BP 120/57
[2020-12-05 16:00] VITALS: BP 125/60
[2020-12-05 20:00] VITALS: BP 110/57
[2020-12-06] VITALS: BP 104/61
[2020-12-06 03:01] LABS: BASO % 0.5 % (0.0-1.0); EOS # 0.4 10*3/uL (0.0-0.4); EOS % 5.3 % (1.0-4.0); LYMPH # 1.6 10*3/uL (1.3-4.4); LYMPH % 23.3 % (27.0-41.0); MEAN CORPUSCULAR HGB 30.3 pg (27.0-31.0); MEAN CORPUSCULAR HGB CONC 30.3 g/dl (33.0-37.0); MEAN PLATELET VOLUME 11.1 fl (9.6-12.3); MONO # 0.6 10*3/uL (0.1-1.0); MONO % 8.7 % (3.0-9.0); NEUT # 4.1 10*3/uL (2.3-7.9); NEUT % 61.6 % (47.0-73.0); PLATELET COUNT AUTOMATED 156 10*3/uL (130-400); RED CELL DISTRI WIDTH 14.5 % (0-14.5); WHITE BLOOD COUNT 6.7 10*3/uL (4.8-10.8)
[2020-12-06 03:17] LABS: ALBUMIN 2.6 gm/dl (3.1-4.5); CREATININE 1.97 mg/dL (0.70-1.30); POTASSIUM 4.5 mmol/L (3.5-5.1); TOTAL PROTEIN 5.8 gm/dL (6.4-8.2)
[2020-12-06 08:00] VITALS: BP 120/61
[2020-12-06 08:08] LABS: BASO % 0.4 % (0.0-1.0); EOS # 0.3 10*3/uL (0.0-0.4); EOS % 4.3 % (1.0-4.0); HEMATOCRIT 36.4 % (42.0-52.0); LYMPH # 1.9 10*3/uL (1.3-4.4); LYMPH % 26.4 % (27.0-41.0); MEAN CELL VOLUME 101.4 fl (80.0-94.0); MEAN CORPUSCULAR HGB 30.9 pg (27.0-31.0); MEAN CORPUSCULAR HGB CONC 30.5 g/dl (33.0-37.0); MEAN PLATELET VOLUME 11.3 fl (9.6-12.3); MONO # 0.6 10*3/uL (0.1-1.0); MONO % 7.7 % (3.0-9.0); NEUT # 4.3 10*3/uL (2.3-7.9); NEUT % 60.8 % (47.0-73.0); PLATELET COUNT AUTOMATED 161 10*3/uL (130-400); RED BLOOD COUNT 3.59 10*6/uL (4.50-5.90); RED CELL DISTRI WIDTH 14.7 % (0-14.5); WHITE BLOOD COUNT 7.2 10*3/uL (4.8-10.8)
[2020-12-06 08:25] LABS: ALBUMIN 2.9 gm/dl (3.1-4.5); CREATININE 1.96 mg/dL (0.70-1.30); POTASSIUM 4.6 mmol/L (3.5-5.1); TOTAL PROTEIN 6.4 gm/dL (6.4-8.2)
[2020-12-06 12:00] VITALS: BP 99/73
[2020-12-06 16:00] VITALS: BP 93/50
[2020-12-06 20:00] VITALS: BP 94/7
[2020-12-06 22:00] VITALS: BP 94/50
[2020-12-07] VITALS (9 sets, daily range): BP systolic 110–154; BP diastolic 59–94
[2020-12-07 06:44] LABS: CREATININE 1.87 mg/dL (0.70-1.30)
[2020-12-08] VITALS: BP 132/86
[2020-12-08 08:00] VITALS: BP 146/58
[2020-12-08 12:00] VITALS: BP 112/60
[2020-12-08 13:10] LABS: ACID FAST SPEC PROCESSING Concentration (.)
[2020-12-08 16:00] VITALS: BP 120/64
[2020-12-08 20:00] VITALS: BP 112/66
[2020-12-09] VITALS: BP 97/45
[2020-12-09 06:49] LABS: BUN 36 mg/dl (7-24); CHLORIDE 109 mmol/L (98-107); POTASSIUM 4.7 mmol/L (3.5-5.1); SODIUM 141 mmol/L (136-145)
[2020-12-09 08:00] VITALS: BP 110/65
[2020-12-09 12:00] VITALS: BP 119/69
[2020-12-09] MEDS ORDERED: FUROSEMIDE40 MG PO ×2 (12:32)
[2020-12-09] MEDS ORDERED: LEVOFLOXACIN750 M2 PO (12:32)
[2021-01-21 12:06] LABS: ACID FAST CULTURE Negative (.)
== END 2020-12-09 13:15 | disposition home health service (06) | DRG 291 ==
LOC: ED 08:42 → 5E 11:05 → EDHOLD 11:05 → 5E 17:30
PROVIDERS: Emergency Medicine; Hospitalist; Internal Medicine Critical Care Medicine; Registered Nurse; Student in an Organized Health Care Education/Training Program; ADMIT Internal Medicine; ATTEND Internal Medicine
PROC: 5A09357 Assistance with Respiratory Ventilation, Less than 24 Consecutive Hours, Continuous Positive Airway Pressure (ICD-10-PCS; 2020-12-03)
PROC: 5A09357 Assistance with Respiratory Ventilation, Less than 24 Consecutive Hours, Continuous Positive Airway Pressure (ICD-10-PCS; 2020-12-04)
PROC: 5A09357 Assistance with Respiratory Ventilation, Less than 24 Consecutive Hours, Continuous Positive Airway Pressure (ICD-10-PCS; 2020-12-05)
PROC: 0BC98ZZ Extirpation of Matter from Lingula Bronchus, Via Natural or Artificial Opening Endoscopic (ICD-10-PCS; principal; 2020-12-07)
PROC: 0BC48ZZ Extirpation of Matter from Right Upper Lobe Bronchus, Via Natural or Artificial Opening Endoscopic (ICD-10-PCS; 2020-12-07)
PROC: 0BC88ZZ Extirpation of Matter from Left Upper Lobe Bronchus, Via Natural or Artificial Opening Endoscopic (ICD-10-PCS; 2020-12-07)
PROC: 0BC58ZZ Extirpation of Matter from Right Middle Lobe Bronchus, Via Natural or Artificial Opening Endoscopic (ICD-10-PCS; 2020-12-07)
PROC: 0BC38ZZ Extirpation of Matter from Right Main Bronchus, Via Natural or Artificial Opening Endoscopic (ICD-10-PCS; 2020-12-07)
PROC: 0BC78ZZ Extirpation of Matter from Left Main Bronchus, Via Natural or Artificial Opening Endoscopic (ICD-10-PCS; 2020-12-07)
PROC: 0BC68ZZ Extirpation of Matter from Right Lower Lobe Bronchus, Via Natural or Artificial Opening Endoscopic (ICD-10-PCS; 2020-12-07)
PROC: 0BCB8ZZ Extirpation of Matter from Left Lower Lobe Bronchus, Via Natural or Artificial Opening Endoscopic (ICD-10-PCS; 2020-12-07)
PROC: 0BC18ZZ Extirpation of Matter from Trachea, Via Natural or Artificial Opening Endoscopic (ICD-10-PCS; 2020-12-07)
PROC: 5A09357 Assistance with Respiratory Ventilation, Less than 24 Consecutive Hours, Continuous Positive Airway Pressure (ICD-10-PCS; 2020-12-07)
DX: I13.0 Hypertensive heart and chronic kidney disease with heart failure and stage 1 through stage 4 chronic kidney disease, or unspecified chronic kidney disease (principal); I50.33 Acute on chronic diastolic (congestive) heart failure; D68.9 Coagulation defect, unspecified; E44.0 Moderate protein-calorie malnutrition; N17.9 Acute kidney failure, unspecified; J44.0 Chronic obstructive pulmonary disease with (acute) lower respiratory infection; F41.1 Generalized anxiety disorder; K21.9 Gastro-esophageal reflux disease without esophagitis; E83.42 Hypomagnesemia; Z20.822 Contact with and (suspected) exposure to COVID-19; I25.10 Atherosclerotic heart disease of native coronary artery without angina pectoris; N18.31 Chronic kidney disease, stage 3a; I48.0 Paroxysmal atrial fibrillation; E11.22 Type 2 diabetes mellitus with diabetic chronic kidney disease; E78.5 Hyperlipidemia, unspecified; E87.8 Other disorders of electrolyte and fluid balance, not elsewhere classified; E11.65 Type 2 diabetes mellitus with hyperglycemia; N40.0 Benign prostatic hyperplasia without lower urinary tract symptoms; M10.9 Gout, unspecified; E66.9 Obesity, unspecified; G47.33 Obstructive sleep apnea (adult) (pediatric); D53.9 Nutritional anemia, unspecified; B96.1 Klebsiella pneumoniae [K. pneumoniae] as the cause of diseases classified elsewhere; J20.9 Acute bronchitis, unspecified; Z79.51 Long term (current) use of inhaled steroids; Z82.49 Family history of ischemic heart disease and other diseases of the circulatory system; Z79.4 Long term (current) use of insulin; Z87.891 Personal history of nicotine dependence; Z80.0 Family history of malignant neoplasm of digestive organs; Z86.73 Personal history of transient ischemic attack (TIA), and cerebral infarction without residual deficits; Z96.641 Presence of right artificial hip joint; Z90.49 Acquired absence of other specified parts of digestive tract; Z79.82 Long term (current) use of aspirin; Z79.899 Other long term (current) drug therapy; Z68.32 Body mass index [BMI] 32.0-32.9, adult

== ENCOUNTER 2020-12-14 14:34 | Observation (INO) | payer OTHER ==
[2020-12-14] VITALS (7 sets, daily range): BP systolic 72–114; BP diastolic 40–61
[~2020-12-14] VITALS: Ht 190.5 cm; Wt 104.4 kg
[~2020-12-14 14:34] MED LIST changes: +ALOGLIPTIN12.5 MG PO; +FUROSEMIDE40 MG PO; +GLIMEPIRIDE2 MG PO; +HYDR25T PO; +LATANOPROST 0.7.5 ML OP; +LEVOFLOXACIN750 M2 PO; +LEVOTHYROXINE112 MC1 PO; +MAGNESIUM CHLOR64 MG PO; +NOVOLOG MIX 70/33 ML SC; +SENOKOT PO; +TRULICITY1.5 MG/0.5 SC
[2020-12-14 14:54] LABS: BASO % 0.3 % (0.0-1.0); EOS # 0.3 10*3/uL (0.0-0.4); EOS % 3.1 % (1.0-4.0); LYMPH % 23.3 % (27.0-41.0); MEAN CELL VOLUME 99.7 fl (80.0-94.0); MEAN CORPUSCULAR HGB 31.3 pg (27.0-31.0); MEAN CORPUSCULAR HGB CONC 31.4 g/dl (33.0-37.0); MEAN PLATELET VOLUME 11.8 fl (9.6-12.3); MONO # 0.6 10*3/uL (0.1-1.0); MONO % 6.5 % (3.0-9.0); NEUT # 5.7 10*3/uL (2.3-7.9); NEUT % 65.9 % (47.0-73.0); PLATELET COUNT AUTOMATED 177 10*3/uL (130-400); RED BLOOD COUNT 3.61 10*6/uL (4.50-5.90); RED CELL DISTRI WIDTH 14.2 % (0-14.5); WHITE BLOOD COUNT 8.7 10*3/uL (4.8-10.8)
[2020-12-14 15:05] LABS: ACT PARTIAL THROMBO TIME 45.8 SECONDS (20.0-32.1); INTERNATIONAL NORM RATIO 2.4 (2.0-3.5)
[2020-12-14 15:10] LABS: ALBUMIN 3.2 gm/dl (3.1-4.5); ALKALINE PHOSPHATASE 105 U/L (45-117); BUN 67 mg/dl (7-24); CHLORIDE 109 mmol/L (98-107); CREATININE 3.11 mg/dL (0.70-1.30); POTASSIUM 4.8 mmol/L (3.5-5.1); SGOT/AST 20 IU/L (3-35); SGPT/ALT 37 U/L (12-78); SODIUM 139 mmol/L (136-145); TOTAL PROTEIN 6.4 gm/dL (6.4-8.2)
[2020-12-14 15:16] LABS: TROPONIN I < 0.015 ng/ml (<0.045)
[2020-12-15] VITALS (8 sets, daily range): BP systolic 79–141; BP diastolic 40–74
[2020-12-15 04:57] LABS: BILIRUBIN Negative (Negative); BLOOD Negative (Negative); CLARITY Clear (Clear); COLOR Yellow (Yellow); GLUCOSE Negative (Negative); KETONE Negative (Negative); LEUKO ESTERASE Negative (Negative); NITRITE Negative (Negative); SPECIFIC GRAVITY 1.015 (1.001-1.030); UROBILINOGEN 0.2 E.U./dl (0.0-1.0)
[2020-12-15 05:20] LABS: BACTERIA TRACE; RBC 0-2 rbc/hpf (0-2); WBC 0-2 wbc/hpf (0-5)
[2020-12-15 06:05] LABS: BASO % 0.4 % (0.0-1.0); EOS # 0.4 10*3/uL (0.0-0.4); EOS % 4.3 % (1.0-4.0); HEMATOCRIT 34.2 % (42.0-52.0); LYMPH % 21.9 % (27.0-41.0); MEAN CELL VOLUME 101.5 fl (80.0-94.0); MEAN CORPUSCULAR HGB 30.9 pg (27.0-31.0); MEAN CORPUSCULAR HGB CONC 30.4 g/dl (33.0-37.0); MEAN PLATELET VOLUME 12.4 fl (9.6-12.3); MONO # 0.6 10*3/uL (0.1-1.0); MONO % 6.4 % (3.0-9.0); NEUT % 66.1 % (47.0-73.0); PLATELET COUNT AUTOMATED 142 10*3/uL (130-400); RED BLOOD COUNT 3.37 10*6/uL (4.50-5.90); RED CELL DISTRI WIDTH 14.2 % (0-14.5)
[2020-12-15 06:07] LABS: CREATININE 2.83 mg/dL (0.70-1.30); POTASSIUM 4.8 mmol/L (3.5-5.1)
[2020-12-16] VITALS: BP 135/55
[2020-12-16 07:13] LABS: BASO % 0.4 % (0.0-1.0); EOS # 0.3 10*3/uL (0.0-0.4); EOS % 3.9 % (1.0-4.0); HEMATOCRIT 32.5 % (42.0-52.0); LYMPH # 1.4 10*3/uL (1.3-4.4); LYMPH % 19.1 % (27.0-41.0); MEAN CELL VOLUME 101.9 fl (80.0-94.0); MEAN CORPUSCULAR HGB 31.3 pg (27.0-31.0); MEAN CORPUSCULAR HGB CONC 30.8 g/dl (33.0-37.0); MEAN PLATELET VOLUME 12.5 fl (9.6-12.3); MONO # 0.3 10*3/uL (0.1-1.0); MONO % 4.7 % (3.0-9.0); NEUT # 5.1 10*3/uL (2.3-7.9); NEUT % 70.8 % (47.0-73.0); PLATELET COUNT AUTOMATED 119 10*3/uL (130-400); RED BLOOD COUNT 3.19 10*6/uL (4.50-5.90); RED CELL DISTRI WIDTH 14.5 % (0-14.5); WHITE BLOOD COUNT 7.2 10*3/uL (4.8-10.8)
[2020-12-16 07:43] LABS: CREATININE 2.01 mg/dL (0.70-1.30); POTASSIUM 4.5 mmol/L (3.5-5.1)
[2020-12-16 08:00] VITALS: BP 120/51
== END 2020-12-16 13:27 | disposition home or self-care (01) ==
LOC: ED 14:34 → EDHOLD 16:25 → 5E 12-15 08:01
PROVIDERS: Emergency Medicine; Internal Medicine; ADMIT Emergency Medicine; ATTEND Emergency Medicine
DX: E86.0 Dehydration (principal); N17.0 Acute kidney failure with tubular necrosis; I95.9 Hypotension, unspecified; E86.1 Hypovolemia; E87.8 Other disorders of electrolyte and fluid balance, not elsewhere classified; E83.42 Hypomagnesemia; R07.89 Other chest pain; I25.10 Atherosclerotic heart disease of native coronary artery without angina pectoris; I12.9 Hypertensive chronic kidney disease with stage 1 through stage 4 chronic kidney disease, or unspecified chronic kidney disease; E11.65 Type 2 diabetes mellitus with hyperglycemia; E11.22 Type 2 diabetes mellitus with diabetic chronic kidney disease; N18.30 Chronic kidney disease, stage 3 unspecified; E55.9 Vitamin D deficiency, unspecified; E78.5 Hyperlipidemia, unspecified; D53.9 Nutritional anemia, unspecified; I48.91 Unspecified atrial fibrillation; E66.9 Obesity, unspecified; Z79.4 Long term (current) use of insulin; Z79.899 Other long term (current) drug therapy

== ENCOUNTER → 2020-12-18 | Outpatient (CLI) | payer OTHER ==
[~2020-12-18] MED LIST changes: +BISA-LAX5 MG PO; +GABAPENTIN400 MG PO; +IRON325 M1 PO; +LASIX40 MG PO; +OMEPRAZOLE40 MG PO; +XARE15TA PO
[2020-12-18 12:27] LABS: CREATININE 2.06 mg/dL (0.70-1.30)
== END | disposition home or self-care (01) ==
LOC: LAB 11:40
PROVIDERS: Internal Medicine; ATTEND Student in an Organized Health Care Education/Training Program
DX: N17.0 Acute kidney failure with tubular necrosis (principal)

== ENCOUNTER 2020-12-19 20:27 | Emergency (ER) | payer OTHER ==
[~2020-12-19] VITALS: Ht 182.8 cm; Wt 103.9 kg
[~2020-12-19 20:27] MED LIST changes: -BISA-LAX5 MG PO; -GABAPENTIN400 MG PO; -IRON325 M1 PO; -LASIX40 MG PO; -OMEPRAZOLE40 MG PO; -XARE15TA PO
[2020-12-19 20:59] LABS: BASO # 0.1 10*3/uL (0.0-0.1); BASO % 0.8 % (0.0-1.0); EOS # 0.5 10*3/uL (0.0-0.4); EOS % 6.5 % (1.0-4.0); HEMATOCRIT 35.7 % (42.0-52.0); LYMPH # 2.2 10*3/uL (1.3-4.4); LYMPH % 28.5 % (27.0-41.0); MEAN CELL VOLUME 98.6 fl (80.0-94.0); MEAN CORPUSCULAR HGB 30.9 pg (27.0-31.0); MEAN CORPUSCULAR HGB CONC 31.4 g/dl (33.0-37.0); MEAN PLATELET VOLUME 12.3 fl (9.6-12.3); MONO # 0.5 10*3/uL (0.1-1.0); MONO % 6.1 % (3.0-9.0); NEUT # 4.5 10*3/uL (2.3-7.9); NEUT % 57.1 % (47.0-73.0); PLATELET COUNT AUTOMATED 149 10*3/uL (130-400); RED BLOOD COUNT 3.62 10*6/uL (4.50-5.90); RED CELL DISTRI WIDTH 14.4 % (0-14.5); WHITE BLOOD COUNT 7.8 10*3/uL (4.8-10.8)
[2020-12-19 21:18] LABS: CREATININE 2.09 mg/dL (0.70-1.30); POTASSIUM 4.4 mmol/L (3.5-5.1); TOTAL PROTEIN 6.2 gm/dL (6.4-8.2)
[2020-12-19 21:33] VITALS: BP 105/59
== END 2020-12-19 21:30 | disposition home or self-care (01) ==
LOC: ED 20:27
PROVIDERS: Internal Medicine
DX: R51.9 Headache, unspecified (principal); E46 Unspecified protein-calorie malnutrition; I12.9 Hypertensive chronic kidney disease with stage 1 through stage 4 chronic kidney disease, or unspecified chronic kidney disease; E11.22 Type 2 diabetes mellitus with diabetic chronic kidney disease; N18.32 Chronic kidney disease, stage 3b; I25.10 Atherosclerotic heart disease of native coronary artery without angina pectoris; J44.9 Chronic obstructive pulmonary disease, unspecified; F17.200 Nicotine dependence, unspecified, uncomplicated; Z88.8 Allergy status to other drugs, medicaments and biological substances; Z88.0 Allergy status to penicillin; Z79.899 Other long term (current) drug therapy; Z79.4 Long term (current) use of insulin; Z79.82 Long term (current) use of aspirin; Z90.49 Acquired absence of other specified parts of digestive tract; Z98.890 Other specified postprocedural states; Z86.73 Personal history of transient ischemic attack (TIA), and cerebral infarction without residual deficits

== ENCOUNTER 2021-01-01 13:30 | Emergency (ER) | payer OTHER ==
[~2021-01-01] VITALS: Ht 177.8 cm; Wt 102.1 kg
[~2021-01-01 13:30] MED LIST changes: -BISA-LAX5 MG PO; -GABAPENTIN400 MG PO; -IRON325 M1 PO; -LASIX40 MG PO; -OMEPRAZOLE40 MG PO; -XARE15TA PO
[2021-01-01 13:59] LABS: BASO # 0.1 10*3/uL (0.0-0.1); BASO % 0.5 % (0.0-1.0); EOS # 0.4 10*3/uL (0.0-0.4); EOS % 3.8 % (1.0-4.0); HEMATOCRIT 42.7 % (42.0-52.0); LYMPH # 2.5 10*3/uL (1.3-4.4); LYMPH % 25.6 % (27.0-41.0); MEAN CORPUSCULAR HGB 31.1 pg (27.0-31.0); MEAN CORPUSCULAR HGB CONC 32.1 g/dl (33.0-37.0); MEAN PLATELET VOLUME 11.9 fl (9.6-12.3); MONO # 0.8 10*3/uL (0.1-1.0); MONO % 7.6 % (3.0-9.0); PLATELET COUNT AUTOMATED 149 10*3/uL (130-400); RED CELL DISTRI WIDTH 14.6 % (0-14.5); WHITE BLOOD COUNT 9.9 10*3/uL (4.8-10.8)
[2021-01-01 14:10] LABS: ACT PARTIAL THROMBO TIME 33.9 SECONDS (20.0-32.1); INTERNATIONAL NORM RATIO 1.9 (2.0-3.5)
[2021-01-01 14:16] LABS: ALBUMIN 3.8 gm/dl (3.1-4.5); ALKALINE PHOSPHATASE 130 U/L (45-117); BUN 48 mg/dl (7-24); CHLORIDE 111 mmol/L (98-107); CREATININE 2.04 mg/dL (0.70-1.30); POTASSIUM 4.8 mmol/L (3.5-5.1); SGOT/AST 23 IU/L (3-35); SGPT/ALT 44 U/L (12-78); SODIUM 141 mmol/L (136-145); TOTAL PROTEIN 7.4 gm/dL (6.4-8.2)
[2021-01-01 14:21] LABS: TROPONIN I < 0.015 ng/ml (<0.045)
[2021-01-01 16:16] VITALS: BP 140/89
== END 2021-01-01 17:05 | disposition home or self-care (01) ==
LOC: ED 13:30
PROVIDERS: Emergency Medicine
DX: R07.89 Other chest pain (principal); I25.10 Atherosclerotic heart disease of native coronary artery without angina pectoris; J44.9 Chronic obstructive pulmonary disease, unspecified; E11.22 Type 2 diabetes mellitus with diabetic chronic kidney disease; I12.9 Hypertensive chronic kidney disease with stage 1 through stage 4 chronic kidney disease, or unspecified chronic kidney disease; N18.9 Chronic kidney disease, unspecified; M19.90 Unspecified osteoarthritis, unspecified site; E78.5 Hyperlipidemia, unspecified; I48.91 Unspecified atrial fibrillation; Z88.1 Allergy status to other antibiotic agents; Z88.0 Allergy status to penicillin; Z79.899 Other long term (current) drug therapy; Z79.4 Long term (current) use of insulin; Z79.82 Long term (current) use of aspirin; Z96.641 Presence of right artificial hip joint; Z89.412 Acquired absence of left great toe; Z89.422 Acquired absence of other left toe(s); Z90.49 Acquired absence of other specified parts of digestive tract; Z87.891 Personal history of nicotine dependence

== ENCOUNTER → 2021-01-01 | Outpatient (CLI) | payer OTHER ==
[~2021-01-01] MED LIST changes: +BISA-LAX5 MG PO; +GABAPENTIN400 MG PO; +IRON325 M1 PO; +LASIX40 MG PO; +OMEPRAZOLE40 MG PO; +XARE15TA PO
[2021-01-01 13:46] LABS: CREATININE 2.09 mg/dL (0.70-1.30); POTASSIUM 5.3 mmol/L (3.5-5.1)
== END | disposition home or self-care (01) ==
LOC: LAB 13:12
PROVIDERS: Student in an Organized Health Care Education/Training Program; ATTEND Internal Medicine
DX: N18.30 Chronic kidney disease, stage 3 unspecified (principal)

== ENCOUNTER → 2021-01-08 | Outpatient (CLI) | payer OTHER ==
[~2021-01-08] MED LIST changes: +BISA-LAX5 MG PO; +GABAPENTIN400 MG PO; +IRON325 M1 PO; +LASIX40 MG PO; +OMEPRAZOLE40 MG PO; +XARE15TA PO
== END | disposition home or self-care (01) ==
LOC: RESCLI 01:45
PROVIDERS: ATTEND Student in an Organized Health Care Education/Training Program
DX: M79.605 Pain in left leg (principal); E11.65 Type 2 diabetes mellitus with hyperglycemia; G62.9 Polyneuropathy, unspecified; E11.40 Type 2 diabetes mellitus with diabetic neuropathy, unspecified; I50.30 Unspecified diastolic (congestive) heart failure; K59.00 Constipation, unspecified; F17.200 Nicotine dependence, unspecified, uncomplicated; Z79.82 Long term (current) use of aspirin; Z79.899 Other long term (current) drug therapy; Z95.828 Presence of other vascular implants and grafts; Z88.8 Allergy status to other drugs, medicaments and biological substances

== ENCOUNTER 2021-01-25 23:56 | Emergency (ER) | payer OTHER ==
[~2021-01-25] VITALS: Ht 177.8 cm; Wt 117.9 kg
[~2021-01-25 23:56] MED LIST changes: -BISA-LAX5 MG PO; -GABAPENTIN400 MG PO; -IRON325 M1 PO; -LASIX40 MG PO; -OMEPRAZOLE40 MG PO; -XARE15TA PO
[2021-01-25 23:58] VITALS: BP 98/52
== END 2021-01-26 03:37 | disposition home or self-care (01) ==
LOC: ED 23:56
DX: M54.5 Low back pain (principal); Z88.8 Allergy status to other drugs, medicaments and biological substances; Z88.2 Allergy status to sulfonamides; Z88.0 Allergy status to penicillin; Z79.899 Other long term (current) drug therapy; Z79.4 Long term (current) use of insulin; Z79.82 Long term (current) use of aspirin; Z90.49 Acquired absence of other specified parts of digestive tract; Z98.890 Other specified postprocedural states; Z96.641 Presence of right artificial hip joint; Z87.891 Personal history of nicotine dependence; W19.XXXA Unspecified fall, initial encounter; Y93.89 Activity, other specified; Y92.89 Other specified places as the place of occurrence of the external cause; Y99.8 Other external cause status

== ENCOUNTER 2021-01-29 13:10 | Observation (INO) | payer OTHER ==
[~2021-01-29] VITALS: Ht 182.9 cm; Wt 114.3 kg
[2021-01-29 13:10] VITALS: BP 114/61
[2021-01-29 13:26] LABS: BASO % 0.3 % (0.0-1.0); EOS # 0.2 10*3/uL (0.0-0.4); EOS % 3.8 % (1.0-4.0); HEMATOCRIT 38.2 % (42.0-52.0); LYMPH # 1.8 10*3/uL (1.3-4.4); LYMPH % 28.7 % (27.0-41.0); MEAN CORPUSCULAR HGB 31.1 pg (27.0-31.0); MEAN CORPUSCULAR HGB CONC 31.4 g/dl (33.0-37.0); MEAN PLATELET VOLUME 12.1 fl (9.6-12.3); MONO # 0.5 10*3/uL (0.1-1.0); MONO % 7.3 % (3.0-9.0); NEUT # 3.8 10*3/uL (2.3-7.9); NEUT % 59.1 % (47.0-73.0); PLATELET COUNT AUTOMATED 134 10*3/uL (130-400); RED BLOOD COUNT 3.86 10*6/uL (4.50-5.90); RED CELL DISTRI WIDTH 14.6 % (0-14.5); WHITE BLOOD COUNT 6.3 10*3/uL (4.8-10.8)
[2021-01-29 13:38] LABS: ACT PARTIAL THROMBO TIME 40.6 SECONDS (20.0-32.1); INTERNATIONAL NORM RATIO 1.9 (2.0-3.5)
[2021-01-29 13:43] LABS: ALBUMIN 3.3 gm/dl (3.1-4.5); ALKALINE PHOSPHATASE 112 U/L (45-117); BUN 54 mg/dl (7-24); CHLORIDE 112 mmol/L (98-107); CREATININE 2.14 mg/dL (0.70-1.30); POTASSIUM 5.3 mmol/L (3.5-5.1); SGOT/AST 9 IU/L (3-35); SGPT/ALT 30 U/L (12-78); SODIUM 141 mmol/L (136-145); TOTAL PROTEIN 6.6 gm/dL (6.4-8.2)
[2021-01-29 13:45] LABS: TROPONIN I < 0.015 ng/ml (<0.045)
[2021-01-29 14:54] VITALS: BP 120/68
[2021-01-29 15:20] VITALS: BP 157/76
[2021-01-29] MEDS ORDERED: HYDR25T PO (17:03)
[2021-01-29] MEDS ORDERED: OMEPRAZOLE40 MG PO (17:04)
[2021-01-29] MEDS ORDERED: BISA-LAX5 MG PO (17:05)
[2021-01-29] MEDS ORDERED: GABAPENTIN400 MG PO (17:07)
[2021-01-29] MEDS ORDERED: XARE15TA PO (17:07)
[2021-01-29] MEDS ORDERED: IRON325 M1 PO (17:10)
[2021-01-29] MEDS ORDERED: HUMALOG100 UNIT/2 SQ ×2 (18:00)
[2021-01-29] MEDS ORDERED: LASIX40 MG PO (18:03)
[2021-01-29 20:00] VITALS: BP 146/79
[2021-01-29 21:29] LABS: CREATININE 1.98 mg/dL (0.70-1.30); POTASSIUM 5.4 mmol/L (3.5-5.1)
[2021-01-30] VITALS: BP 127/76
[2021-01-30 05:55] LABS: CREATININE 1.71 mg/dL (0.70-1.30); POTASSIUM 5.1 mmol/L (3.5-5.1)
[2021-01-30 06:18] LABS: BASO % 0.4 % (0.0-1.0); EOS # 0.3 10*3/uL (0.0-0.4); EOS % 4.9 % (1.0-4.0); HEMATOCRIT 36.2 % (42.0-52.0); LYMPH # 1.7 10*3/uL (1.3-4.4); LYMPH % 31.1 % (27.0-41.0); MEAN CELL VOLUME 98.6 fl (80.0-94.0); MEAN CORPUSCULAR HGB 30.8 pg (27.0-31.0); MEAN CORPUSCULAR HGB CONC 31.2 g/dl (33.0-37.0); MEAN PLATELET VOLUME 12.7 fl (9.6-12.3); MONO # 0.4 10*3/uL (0.1-1.0); MONO % 6.6 % (3.0-9.0); NEUT # 3.1 10*3/uL (2.3-7.9); NEUT % 56.6 % (47.0-73.0); PLATELET COUNT AUTOMATED 114 10*3/uL (130-400); RED BLOOD COUNT 3.67 10*6/uL (4.50-5.90); RED CELL DISTRI WIDTH 14.5 % (0-14.5); WHITE BLOOD COUNT 5.5 10*3/uL (4.8-10.8)
[2021-01-30 07:51] VITALS: BP 136/84
== END 2021-01-30 13:10 | disposition home health service (06) ==
LOC: ED 13:10 → EDHOLD 14:46 → 4E 14:46
PROVIDERS: Emergency Medicine; Student in an Organized Health Care Education/Training Program; ADMIT Student in an Organized Health Care Education/Training Program; ATTEND Student in an Organized Health Care Education/Training Program
DX: R07.89 Other chest pain (principal); R42 Dizziness and giddiness; N17.0 Acute kidney failure with tubular necrosis; E86.0 Dehydration; E87.8 Other disorders of electrolyte and fluid balance, not elsewhere classified; E87.5 Hyperkalemia; D53.9 Nutritional anemia, unspecified; E83.42 Hypomagnesemia; R79.82 Elevated C-reactive protein (CRP); R79.89 Other specified abnormal findings of blood chemistry; N40.0 Benign prostatic hyperplasia without lower urinary tract symptoms; I13.0 Hypertensive heart and chronic kidney disease with heart failure and stage 1 through stage 4 chronic kidney disease, or unspecified chronic kidney disease; E11.22 Type 2 diabetes mellitus with diabetic chronic kidney disease; I50.9 Heart failure, unspecified; N18.32 Chronic kidney disease, stage 3b; I25.10 Atherosclerotic heart disease of native coronary artery without angina pectoris; M10.9 Gout, unspecified; I48.91 Unspecified atrial fibrillation; K21.9 Gastro-esophageal reflux disease without esophagitis; E66.9 Obesity, unspecified; Z79.4 Long term (current) use of insulin; Z68.34 Body mass index [BMI] 34.0-34.9, adult

== ENCOUNTER 2021-02-14 03:59 | Inpatient (IN) | payer OTHER ==
[2021-02-14] VITALS (19 sets, daily range): BP systolic 126–162; BP diastolic 74–97
[~2021-02-14] VITALS: Ht 182.8 cm; Wt 117.5 kg
[~2021-02-14 03:59] MED LIST changes: +BISA-LAX5 MG PO; +GABAPENTIN400 MG PO; +IRON325 M1 PO; +LASIX40 MG PO; +OMEPRAZOLE40 MG PO; +XARE15TA PO
[2021-02-14 04:20] LABS: BASO # 0.1 10*3/uL (0.0-0.1); BASO % 0.8 % (0.0-1.0); EOS # 0.3 10*3/uL (0.0-0.4); HEMATOCRIT 37.7 % (42.0-52.0); LYMPH # 2.1 10*3/uL (1.3-4.4); LYMPH % 34.6 % (27.0-41.0); MEAN CELL VOLUME 97.7 fl (80.0-94.0); MEAN CORPUSCULAR HGB 31.6 pg (27.0-31.0); MEAN CORPUSCULAR HGB CONC 32.4 g/dl (33.0-37.0); MONO # 0.4 10*3/uL (0.1-1.0); MONO % 6.2 % (3.0-9.0); NEUT # 3.2 10*3/uL (2.3-7.9); NEUT % 51.9 % (47.0-73.0); PLATELET COUNT AUTOMATED 139 10*3/uL (130-400); RED BLOOD COUNT 3.86 10*6/uL (4.50-5.90); RED CELL DISTRI WIDTH 13.7 % (0-14.5); WHITE BLOOD COUNT 6.2 10*3/uL (4.8-10.8)
[2021-02-14 04:47] LABS: ALBUMIN 3.2 gm/dl (3.1-4.5); ALKALINE PHOSPHATASE 120 U/L (45-117); BUN 53 mg/dl (7-24); CHLORIDE 109 mmol/L (98-107); CREATININE 2.43 mg/dL (0.70-1.30); POTASSIUM 3.9 mmol/L (3.5-5.1); SGOT/AST 12 IU/L (3-35); SGPT/ALT 32 U/L (12-78); SODIUM 141 mmol/L (136-145); TOTAL PROTEIN 6.6 gm/dL (6.4-8.2)
[2021-02-14 04:49] LABS: TROPONIN I < 0.015 ng/ml (<0.045)
[2021-02-14 13:10] LABS: POTASSIUM 4.5 mmol/L (3.5-5.1)
[2021-02-14 13:22] LABS: CREATININE 1.87 mg/dL (0.70-1.30)
[2021-02-15] VITALS: BP 101/68
[2021-02-15 04:00] VITALS: BP 100/65
[2021-02-15 06:08] LABS: ALBUMIN 3.1 gm/dl (3.1-4.5); POTASSIUM 4.3 mmol/L (3.5-5.1)
[2021-02-15 06:10] LABS: CREATININE 1.78 mg/dL (0.70-1.30); TOTAL PROTEIN 6.1 gm/dL (6.4-8.2)
[2021-02-15 06:24] LABS: BASO % 0.4 % (0.0-1.0); EOS # 0.2 10*3/uL (0.0-0.4); EOS % 3.2 % (1.0-4.0); HEMATOCRIT 35.2 % (42.0-52.0); LYMPH # 1.3 10*3/uL (1.3-4.4); LYMPH % 18.7 % (27.0-41.0); MEAN CORPUSCULAR HGB 31.1 pg (27.0-31.0); MEAN CORPUSCULAR HGB CONC 32.1 g/dl (33.0-37.0); MEAN PLATELET VOLUME 12.5 fl (9.6-12.3); MONO # 0.4 10*3/uL (0.1-1.0); MONO % 6.2 % (3.0-9.0); NEUT # 4.8 10*3/uL (2.3-7.9); NEUT % 70.9 % (47.0-73.0); PLATELET COUNT AUTOMATED 111 10*3/uL (130-400); RED BLOOD COUNT 3.63 10*6/uL (4.50-5.90); RED CELL DISTRI WIDTH 13.6 % (0-14.5); WHITE BLOOD COUNT 6.8 10*3/uL (4.8-10.8)
[2021-02-15 12:00] VITALS: BP 140/78
[2021-02-15] MEDS ORDERED: NITROSTAT0.4 MG SL (12:23)
== END 2021-02-15 13:12 | disposition home or self-care (01) | DRG 883 ==
LOC: ED 03:59 → ICCU 05:24 → EDHOLD 05:24 → 4E 05:24 → ICCU 10:18 → 4E 10:18 → ICCU 10:18 → 4E 02-15 06:42
PROVIDERS: Internal Medicine; ADMIT Internal Medicine; ATTEND Internal Medicine
DX: F68.10 Factitious disorder imposed on self, unspecified (principal); N17.0 Acute kidney failure with tubular necrosis; I50.32 Chronic diastolic (congestive) heart failure; I13.0 Hypertensive heart and chronic kidney disease with heart failure and stage 1 through stage 4 chronic kidney disease, or unspecified chronic kidney disease; E11.22 Type 2 diabetes mellitus with diabetic chronic kidney disease; N18.32 Chronic kidney disease, stage 3b; K21.9 Gastro-esophageal reflux disease without esophagitis; I25.10 Atherosclerotic heart disease of native coronary artery without angina pectoris; J44.9 Chronic obstructive pulmonary disease, unspecified; N18.30 Chronic kidney disease, stage 3 unspecified; I48.0 Paroxysmal atrial fibrillation; Z96.641 Presence of right artificial hip joint; D53.9 Nutritional anemia, unspecified; N40.0 Benign prostatic hyperplasia without lower urinary tract symptoms; F32.9 Major depressive disorder, single episode, unspecified; E11.40 Type 2 diabetes mellitus with diabetic neuropathy, unspecified; F41.1 Generalized anxiety disorder; M10.9 Gout, unspecified; G47.33 Obstructive sleep apnea (adult) (pediatric); E78.5 Hyperlipidemia, unspecified; E66.9 Obesity, unspecified; E87.8 Other disorders of electrolyte and fluid balance, not elsewhere classified; E11.65 Type 2 diabetes mellitus with hyperglycemia; M50.320 Other cervical disc degeneration, mid-cervical region, unspecified level; E11.42 Type 2 diabetes mellitus with diabetic polyneuropathy; M43.10 Spondylolisthesis, site unspecified; E55.9 Vitamin D deficiency, unspecified; F10.10 Alcohol abuse, uncomplicated; Z88.1 Allergy status to other antibiotic agents; Z88.0 Allergy status to penicillin; Z88.8 Allergy status to other drugs, medicaments and biological substances; Z79.4 Long term (current) use of insulin; Z95.5 Presence of coronary angioplasty implant and graft; Z90.49 Acquired absence of other specified parts of digestive tract; Z89.432 Acquired absence of left foot; Z82.49 Family history of ischemic heart disease and other diseases of the circulatory system; Z86.73 Personal history of transient ischemic attack (TIA), and cerebral infarction without residual deficits; Z68.35 Body mass index [BMI] 35.0-35.9, adult

== ENCOUNTER 2021-02-16 04:11 | Emergency (ER) | payer OTHER ==
[~2021-02-16] VITALS: Ht 172.7 cm; Wt 113.4 kg
[2021-02-16 06:01] LABS: BASO % 0.4 % (0.0-1.0); EOS # 0.3 10*3/uL (0.0-0.4); EOS % 3.2 % (1.0-4.0); HEMATOCRIT 35.4 % (42.0-52.0); LYMPH # 1.3 10*3/uL (1.3-4.4); LYMPH % 16.1 % (27.0-41.0); MEAN CELL VOLUME 98.6 fl (80.0-94.0); MEAN CORPUSCULAR HGB 31.2 pg (27.0-31.0); MEAN CORPUSCULAR HGB CONC 31.6 g/dl (33.0-37.0); MEAN PLATELET VOLUME 12.4 fl (9.6-12.3); MONO # 0.6 10*3/uL (0.1-1.0); MONO % 6.9 % (3.0-9.0); NEUT # 5.7 10*3/uL (2.3-7.9); NEUT % 72.1 % (47.0-73.0); PLATELET COUNT AUTOMATED 119 10*3/uL (130-400); RED BLOOD COUNT 3.59 10*6/uL (4.50-5.90); RED CELL DISTRI WIDTH 13.8 % (0-14.5); WHITE BLOOD COUNT 7.9 10*3/uL (4.8-10.8)
[2021-02-16 06:02] LABS: ALKALINE PHOSPHATASE 115 U/L (45-117); BUN 43 mg/dl (7-24); CHLORIDE 107 mmol/L (98-107); CREATININE 2.05 mg/dL (0.70-1.30); POTASSIUM 4.9 mmol/L (3.5-5.1); SGOT/AST 12 IU/L (3-35); SGPT/ALT 31 U/L (12-78); SODIUM 142 mmol/L (136-145); TOTAL PROTEIN 6.1 gm/dL (6.4-8.2)
[2021-02-16 06:03] LABS: TROPONIN I < 0.015 ng/ml (<0.045)
[2021-02-16 06:11] LABS: INTERNATIONAL NORM RATIO 1.3 (2.0-3.5)
[2021-02-16 06:21] VITALS: BP 107/71
== END 2021-02-16 08:55 | disposition home or self-care (01) ==
LOC: ED 04:11
PROVIDERS: Emergency Medicine
DX: E83.42 Hypomagnesemia (principal); R07.89 Other chest pain; Z88.8 Allergy status to other drugs, medicaments and biological substances; Z88.0 Allergy status to penicillin; Z79.899 Other long term (current) drug therapy; I50.32 Chronic diastolic (congestive) heart failure; I48.91 Unspecified atrial fibrillation; I25.10 Atherosclerotic heart disease of native coronary artery without angina pectoris; J44.9 Chronic obstructive pulmonary disease, unspecified; I11.0 Hypertensive heart disease with heart failure; E11.9 Type 2 diabetes mellitus without complications; F32.9 Major depressive disorder, single episode, unspecified; K21.9 Gastro-esophageal reflux disease without esophagitis; E78.5 Hyperlipidemia, unspecified; Z98.890 Other specified postprocedural states; Z95.818 Presence of other cardiac implants and grafts; Z90.49 Acquired absence of other specified parts of digestive tract; Z96.641 Presence of right artificial hip joint; Z87.891 Personal history of nicotine dependence

== ENCOUNTER → 2021-02-25 | Outpatient (CLI) | payer OTHER ==
[2021-02-25 16:37] LABS: CREATININE 2.19 mg/dL (0.70-1.30); POTASSIUM 5.4 mmol/L (3.5-5.1)
== END | disposition home or self-care (01) ==
LOC: LAB 15:40
PROVIDERS: ATTEND Internal Medicine Nephrology
DX: E83.42 Hypomagnesemia (principal); Z79.899 Other long term (current) drug therapy

== ENCOUNTER → 2021-02-26 | Outpatient (CLI) | payer OTHER | END | disposition home or self-care (01) | LOC: RAD 15:25 | PROVIDERS: ATTEND Physician Assistant | DX: R10.84 Generalized abdominal pain (principal) ==

== ENCOUNTER → 2021-03-04 | Outpatient (CLI) | payer OTHER ==
[2021-03-04 10:30] LABS: CREATININE 1.65 mg/dL (0.70-1.30); POTASSIUM 4.9 mmol/L (3.5-5.1)
== END | disposition home or self-care (01) ==
LOC: LAB 08:16
PROVIDERS: Student in an Organized Health Care Education/Training Program; ATTEND Internal Medicine Nephrology
DX: I10 Essential (primary) hypertension (principal); E03.9 Hypothyroidism, unspecified; E83.42 Hypomagnesemia

== ENCOUNTER → 2021-03-20 | Outpatient (CLI) | payer OTHER ==
[2021-03-20 11:00] LABS: BILIRUBIN Negative (Negative); BLOOD Negative (Negative); CLARITY Clear (Clear); COLOR Yellow (Yellow); GLUCOSE Negative (Negative); KETONE Negative (Negative); LEUKO ESTERASE Negative (Negative); NITRITE Negative (Negative); PH 5.5 (4.5-8.0); UROBILINOGEN 0.2 E.U./dl (0.0-1.0)
[2021-03-20 11:18] LABS: ALBUMIN 3.4 gm/dl (3.1-4.5); BILIRUBIN, DIRECT 0.1 mg/dL (0.0-0.2); CREATININE 1.83 mg/dL (0.70-1.30); POTASSIUM 4.7 mmol/L (3.5-5.1); TOTAL PROTEIN 7.1 gm/dL (6.4-8.2)
[2021-03-20 11:25] LABS: FREE T4 0.94 ng/dl (0.76-1.46); THYROID STIM HORMONE (HS) 2.69 uIU/ml (0.358-4.75)
[2021-03-20 11:27] LABS: VITAMIN D, 25-HYDROXY 46.2 ng/mL (30-100)
[2021-03-20 11:29] LABS: RBC 0-2 rbc/hpf (0-2); WBC 0-2 wbc/hpf (0-5)
[2021-03-20 11:30] LABS: BACTERIA TRACE; HYALINE CAST 0-2
== END | disposition home or self-care (01) ==
LOC: LAB 10:28
PROVIDERS: ATTEND Internal Medicine
DX: E11.65 Type 2 diabetes mellitus with hyperglycemia (principal); D64.9 Anemia, unspecified; E78.2 Mixed hyperlipidemia; E03.9 Hypothyroidism, unspecified; E55.9 Vitamin D deficiency, unspecified; G62.9 Polyneuropathy, unspecified

== ENCOUNTER 2021-03-22 21:04 | Emergency (ER) | payer OTHER ==
[~2021-03-22] VITALS: Ht 182.8 cm; Wt 114.3 kg
[2021-03-22 21:18] VITALS: BP 103/44
== END 2021-03-22 22:27 | disposition left against medical advice (07) ==
LOC: ED 21:04
DX: Z48.00 Encounter for change or removal of nonsurgical wound dressing (principal); Z53.21 Procedure and treatment not carried out due to patient leaving prior to being seen by health care provider

== ENCOUNTER 2021-03-26 07:37 | Emergency (ER) | payer OTHER ==
[~2021-03-26] VITALS: Ht 182.8 cm; Wt 102.1 kg
[2021-03-26 07:41] VITALS: BP 138/56
[2021-03-26 08:07] LABS: BASO % 0.4 % (0.0-1.0); EOS # 0.3 10*3/uL (0.0-0.4); EOS % 4.4 % (1.0-4.0); HEMATOCRIT 38.9 % (42.0-52.0); LYMPH # 2.1 10*3/uL (1.3-4.4); LYMPH % 27.8 % (27.0-41.0); MEAN CORPUSCULAR HGB 31.2 pg (27.0-31.0); MEAN CORPUSCULAR HGB CONC 31.9 g/dl (33.0-37.0); MEAN PLATELET VOLUME 11.3 fl (9.6-12.3); MONO # 0.6 10*3/uL (0.1-1.0); MONO % 8.6 % (3.0-9.0); NEUT # 4.4 10*3/uL (2.3-7.9); NEUT % 58.3 % (47.0-73.0); PLATELET COUNT AUTOMATED 177 10*3/uL (130-400); RED BLOOD COUNT 3.97 10*6/uL (4.50-5.90); RED CELL DISTRI WIDTH 13.7 % (0-14.5); WHITE BLOOD COUNT 7.5 10*3/uL (4.8-10.8)
[2021-03-26 08:19] LABS: ACT PARTIAL THROMBO TIME 41.8 SECONDS (20.0-32.1); INTERNATIONAL NORM RATIO 1.6 (2.0-3.5)
[2021-03-26 08:27] LABS: ALBUMIN 3.5 gm/dl (3.1-4.5); ALKALINE PHOSPHATASE 135 U/L (45-117); BUN 37 mg/dl (7-24); CHLORIDE 108 mmol/L (98-107); CREATININE 2.07 mg/dL (0.70-1.30); POTASSIUM 4.6 mmol/L (3.5-5.1); SGOT/AST 9 IU/L (3-35); SGPT/ALT 23 U/L (12-78); SODIUM 141 mmol/L (136-145); TOTAL PROTEIN 7.2 gm/dL (6.4-8.2)
[2021-03-26 08:32] LABS: TROPONIN I < 0.015 ng/ml (<0.045)
[2021-03-26] MEDS ORDERED: LEVOFLOXACIN500 MG PO (09:09)
[2021-03-26] MEDS ORDERED: PREDNISONE50 MG PO (09:10)
== END 2021-03-26 09:21 | disposition home or self-care (01) ==
LOC: ED 07:37
PROVIDERS: Emergency Medicine
DX: J40 Bronchitis, not specified as acute or chronic (principal); Z88.8 Allergy status to other drugs, medicaments and biological substances; Z79.899 Other long term (current) drug therapy; Z79.4 Long term (current) use of insulin; Z79.82 Long term (current) use of aspirin; Z95.818 Presence of other cardiac implants and grafts; Z96.641 Presence of right artificial hip joint; Z87.891 Personal history of nicotine dependence; Z90.49 Acquired absence of other specified parts of digestive tract; Z98.890 Other specified postprocedural states

== ENCOUNTER 2021-03-28 10:36 | Emergency (ER) | payer OTHER ==
[~2021-03-28] VITALS: Wt 114.1 kg
[2021-03-28 11:26] LABS: BASO % 0.5 % (0.0-1.0); EOS # 0.3 10*3/uL (0.0-0.4); EOS % 3.8 % (1.0-4.0); HEMATOCRIT 39.8 % (42.0-52.0); LYMPH # 1.5 10*3/uL (1.3-4.4); LYMPH % 18.5 % (27.0-41.0); MEAN CELL VOLUME 96.8 fl (80.0-94.0); MEAN CORPUSCULAR HGB 30.9 pg (27.0-31.0); MEAN CORPUSCULAR HGB CONC 31.9 g/dl (33.0-37.0); MEAN PLATELET VOLUME 11.4 fl (9.6-12.3); MONO # 0.5 10*3/uL (0.1-1.0); MONO % 5.8 % (3.0-9.0); NEUT # 5.7 10*3/uL (2.3-7.9); NEUT % 70.8 % (47.0-73.0); PLATELET COUNT AUTOMATED 197 10*3/uL (130-400); RED BLOOD COUNT 4.11 10*6/uL (4.50-5.90); RED CELL DISTRI WIDTH 13.7 % (0-14.5); WHITE BLOOD COUNT 8.1 10*3/uL (4.8-10.8)
[2021-03-28 11:37] LABS: ACT PARTIAL THROMBO TIME 36.1 SECONDS (20.0-32.1); INTERNATIONAL NORM RATIO 1.6 (2.0-3.5)
[2021-03-28 11:45] LABS: ALBUMIN 3.4 gm/dl (3.1-4.5); ALKALINE PHOSPHATASE 119 U/L (45-117); BUN 43 mg/dl (7-24); CHLORIDE 110 mmol/L (98-107); CREATININE 2.72 mg/dL (0.70-1.30); LIPASE 221 U/L (73-393); POTASSIUM 4.4 mmol/L (3.5-5.1); SGOT/AST 13 IU/L (3-35); SGPT/ALT 21 U/L (12-78); SODIUM 140 mmol/L (136-145); TOTAL PROTEIN 7.2 gm/dL (6.4-8.2); TROPONIN I < 0.015 ng/ml (<0.045)
[2021-03-28 12:53] VITALS: BP 124/84
[2021-03-28 13:36] LABS: BILIRUBIN Negative (Negative); BLOOD Negative (Negative); CLARITY Clear (Clear); COLOR Yellow (Yellow); GLUCOSE Negative (Negative); KETONE Negative (Negative); LEUKO ESTERASE Negative (Negative); NITRITE Negative (Negative); UROBILINOGEN 0.2 E.U./dl (0.0-1.0)
== END 2021-03-28 15:46 | disposition home or self-care (01) ==
LOC: ED 10:36
PROVIDERS: Emergency Medicine
DX: E86.0 Dehydration (principal); R11.2 Nausea with vomiting, unspecified; Z88.8 Allergy status to other drugs, medicaments and biological substances; Z88.0 Allergy status to penicillin; Z79.899 Other long term (current) drug therapy; Z79.4 Long term (current) use of insulin; Z79.82 Long term (current) use of aspirin; Z98.890 Other specified postprocedural states; Z96.641 Presence of right artificial hip joint

== ENCOUNTER 2021-04-01 14:32 | Inpatient (IN) | payer OTHER ==
[~2021-04-01] VITALS: Ht 182.8 cm; Wt 111.7 kg
[2021-04-01 14:36] VITALS: BP 117/61
[2021-04-01 16:32] LABS: BASO % 0.5 % (0.0-1.0); EOS # 0.3 10*3/uL (0.0-0.4); EOS % 3.7 % (1.0-4.0); HEMATOCRIT 36.1 % (42.0-52.0); LYMPH # 1.3 10*3/uL (1.3-4.4); LYMPH % 16.4 % (27.0-41.0); MEAN CELL VOLUME 98.1 fl (80.0-94.0); MEAN CORPUSCULAR HGB CONC 31.6 g/dl (33.0-37.0); MEAN PLATELET VOLUME 11.1 fl (9.6-12.3); MONO # 0.5 10*3/uL (0.1-1.0); MONO % 5.9 % (3.0-9.0); NEUT # 5.7 10*3/uL (2.3-7.9); NEUT % 73.1 % (47.0-73.0); PLATELET COUNT AUTOMATED 155 10*3/uL (130-400); RED BLOOD COUNT 3.68 10*6/uL (4.50-5.90); RED CELL DISTRI WIDTH 13.6 % (0-14.5); WHITE BLOOD COUNT 7.8 10*3/uL (4.8-10.8)
[2021-04-01 16:45] LABS: BILIRUBIN Negative (Negative); BLOOD Negative (Negative); CLARITY Clear (Clear); COLOR Yellow (Yellow); GLUCOSE Negative (Negative); KETONE Negative (Negative); LEUKO ESTERASE 1+ (Negative); NITRITE Negative (Negative); SPECIFIC GRAVITY 1.015 (1.001-1.030); UROBILINOGEN 0.2 E.U./dl (0.0-1.0)
[2021-04-01 16:47] LABS: ALBUMIN 3.2 gm/dl (3.1-4.5); ALKALINE PHOSPHATASE 102 U/L (45-117); BUN 55 mg/dl (7-24); CHLORIDE 106 mmol/L (98-107); LIPASE 249 U/L (73-393); POTASSIUM 4.3 mmol/L (3.5-5.1); SGOT/AST 10 IU/L (3-35); SGPT/ALT 17 U/L (12-78); SODIUM 138 mmol/L (136-145); TOTAL PROTEIN 6.5 gm/dL (6.4-8.2); TROPONIN I < 0.015 ng/ml (<0.045)
[2021-04-01 16:53] LABS: ACT PARTIAL THROMBO TIME 41.7 SECONDS (20.0-32.1); INTERNATIONAL NORM RATIO 1.8 (2.0-3.5)
[2021-04-01 16:54] LABS: BACTERIA TRACE; EPITHELIAL CELLS 0-2; RBC 0-2 rbc/hpf (0-2)
[2021-04-01 18:35] VITALS: BP 103/62
[2021-04-01 21:10] VITALS: BP 132/91
[2021-04-01 23:42] VITALS: BP 105/63
[2021-04-02 06:52] LABS: BASO % 0.5 % (0.0-1.0); EOS # 0.3 10*3/uL (0.0-0.4); EOS % 5.1 % (1.0-4.0); HEMATOCRIT 35.2 % (42.0-52.0); LYMPH # 1.1 10*3/uL (1.3-4.4); LYMPH % 17.9 % (27.0-41.0); MEAN CELL VOLUME 99.7 fl (80.0-94.0); MEAN CORPUSCULAR HGB 31.4 pg (27.0-31.0); MEAN CORPUSCULAR HGB CONC 31.5 g/dl (33.0-37.0); MEAN PLATELET VOLUME 11.9 fl (9.6-12.3); MONO # 0.5 10*3/uL (0.1-1.0); MONO % 8.5 % (3.0-9.0); NEUT % 67.7 % (47.0-73.0); PLATELET COUNT AUTOMATED 145 10*3/uL (130-400); RED BLOOD COUNT 3.53 10*6/uL (4.50-5.90); RED CELL DISTRI WIDTH 13.7 % (0-14.5); WHITE BLOOD COUNT 5.9 10*3/uL (4.8-10.8)
[2021-04-02 07:04] LABS: POTASSIUM 4.4 mmol/L (3.5-5.1)
[2021-04-02 07:08] LABS: CREATININE 3.25 mg/dL (0.70-1.30)
[2021-04-02 08:00] VITALS: BP 115/75
[2021-04-02 12:00] VITALS: BP 99/67
[2021-04-02 16:00] VITALS: BP 95/66
[2021-04-02 20:00] VITALS: BP 110/59
[2021-04-03] VITALS: BP 103/61
[2021-04-03 06:39] LABS: INTERNATIONAL NORM RATIO 1.3 (2.0-3.5)
[2021-04-03 06:43] LABS: CREATININE 2.57 mg/dL (0.70-1.30); POTASSIUM 4.5 mmol/L (3.5-5.1)
[2021-04-03 08:00] VITALS: BP 117/71
[2021-04-03 12:00] VITALS: BP 104/74
[2021-04-03 16:00] VITALS: BP 100/62
== END 2021-04-03 18:44 | disposition home health service (06) | DRG 683 ==
LOC: ED 14:32 → 5E 18:30 → EDHOLD 18:30 → 5E 20:22
PROVIDERS: Internal Medicine; Physician Assistant; ADMIT Family Medicine; ATTEND Family Medicine
DX: N17.0 Acute kidney failure with tubular necrosis (principal); I13.0 Hypertensive heart and chronic kidney disease with heart failure and stage 1 through stage 4 chronic kidney disease, or unspecified chronic kidney disease; E44.0 Moderate protein-calorie malnutrition; I50.32 Chronic diastolic (congestive) heart failure; I48.21 Permanent atrial fibrillation; E11.621 Type 2 diabetes mellitus with foot ulcer; E11.42 Type 2 diabetes mellitus with diabetic polyneuropathy; L97.519 Non-pressure chronic ulcer of other part of right foot with unspecified severity; E86.0 Dehydration; I95.1 Orthostatic hypotension; F32.9 Major depressive disorder, single episode, unspecified; N18.30 Chronic kidney disease, stage 3 unspecified; G47.33 Obstructive sleep apnea (adult) (pediatric); K21.9 Gastro-esophageal reflux disease without esophagitis; E55.9 Vitamin D deficiency, unspecified; Z79.4 Long term (current) use of insulin; E11.22 Type 2 diabetes mellitus with diabetic chronic kidney disease; N40.0 Benign prostatic hyperplasia without lower urinary tract symptoms; M1A.9XX0 Chronic gout, unspecified, without tophus (tophi); I25.10 Atherosclerotic heart disease of native coronary artery without angina pectoris; F41.1 Generalized anxiety disorder; E11.41 Type 2 diabetes mellitus with diabetic mononeuropathy; J42 Unspecified chronic bronchitis; Z88.1 Allergy status to other antibiotic agents; Z88.0 Allergy status to penicillin; Z88.8 Allergy status to other drugs, medicaments and biological substances; Z79.899 Other long term (current) drug therapy; Z79.82 Long term (current) use of aspirin; Z68.33 Body mass index [BMI] 33.0-33.9, adult

== ENCOUNTER → 2021-04-04 | Outpatient (CLI) | payer OTHER | LOC: WOUNDCARE 10:08 | PROVIDERS: ATTEND Nurse Practitioner | DX: E11.621 Type 2 diabetes mellitus with foot ulcer (principal); L97.512 Non-pressure chronic ulcer of other part of right foot with fat layer exposed; S50.821A Blister (nonthermal) of right forearm, initial encounter; E11.51 Type 2 diabetes mellitus with diabetic peripheral angiopathy without gangrene; E03.9 Hypothyroidism, unspecified; E78.5 Hyperlipidemia, unspecified; J44.9 Chronic obstructive pulmonary disease, unspecified; I12.9 Hypertensive chronic kidney disease with stage 1 through stage 4 chronic kidney disease, or unspecified chronic kidney disease; N18.30 Chronic kidney disease, stage 3 unspecified; Z96.641 Presence of right artificial hip joint; Z90.49 Acquired absence of other specified parts of digestive tract; Z87.891 Personal history of nicotine dependence; Z89.412 Acquired absence of left great toe; Z89.422 Acquired absence of other left toe(s); W57.XXXA Bitten or stung by nonvenomous insect and other nonvenomous arthropods, initial encounter; Y93.89 Activity, other specified; Y92.89 Other specified places as the place of occurrence of the external cause; Y99.8 Other external cause status ==

== ENCOUNTER 2021-04-14 14:42 | Emergency (ER) | payer OTHER ==
[2021-04-14 15:02] LABS: BASO # 0.1 10*3/uL (0.0-0.1); BASO % 0.6 % (0.0-1.0); EOS # 0.4 10*3/uL (0.0-0.4); EOS % 3.9 % (1.0-4.0); HEMATOCRIT 40.6 % (42.0-52.0); LYMPH # 2.3 10*3/uL (1.3-4.4); LYMPH % 21.6 % (27.0-41.0); MEAN CELL VOLUME 97.1 fl (80.0-94.0); MEAN CORPUSCULAR HGB 31.3 pg (27.0-31.0); MEAN CORPUSCULAR HGB CONC 32.3 g/dl (33.0-37.0); MEAN PLATELET VOLUME 11.6 fl (9.6-12.3); MONO # 0.7 10*3/uL (0.1-1.0); MONO % 6.2 % (3.0-9.0); NEUT # 7.1 10*3/uL (2.3-7.9); NEUT % 66.9 % (47.0-73.0); PLATELET COUNT AUTOMATED 199 10*3/uL (130-400); RED BLOOD COUNT 4.18 10*6/uL (4.50-5.90); RED CELL DISTRI WIDTH 13.5 % (0-14.5); WHITE BLOOD COUNT 10.6 10*3/uL (4.8-10.8)
[2021-04-14 15:21] LABS: ALBUMIN 3.2 gm/dl (3.1-4.5); ALKALINE PHOSPHATASE 112 U/L (45-117); BUN 40 mg/dl (7-24); CHLORIDE 111 mmol/L (98-107); CREATININE 1.96 mg/dL (0.70-1.30); POTASSIUM 4.6 mmol/L (3.5-5.1); SGOT/AST 26 IU/L (3-35); SGPT/ALT 32 U/L (12-78); SODIUM 140 mmol/L (136-145); TOTAL PROTEIN 7.3 gm/dL (6.4-8.2)
[2021-04-14 15:25] LABS: TROPONIN I < 0.015 ng/ml (<0.045)
[2021-04-14 17:13] VITALS: BP 138/83
== END 2021-04-14 17:37 | disposition home or self-care (01) ==
LOC: ED 14:42
PROVIDERS: Student in an Organized Health Care Education/Training Program
DX: R00.2 Palpitations (principal); I48.91 Unspecified atrial fibrillation; Z88.8 Allergy status to other drugs, medicaments and biological substances; Z88.0 Allergy status to penicillin; Z79.4 Long term (current) use of insulin; Z79.899 Other long term (current) drug therapy; Z98.890 Other specified postprocedural states; Z96.641 Presence of right artificial hip joint; Z95.818 Presence of other cardiac implants and grafts; Z90.49 Acquired absence of other specified parts of digestive tract

== ENCOUNTER → 2021-05-01 | Outpatient (CLI) | payer OTHER ==
[~2021-05-01] MED LIST changes: +BENZONATATE100 M1 PO; +Bactroban Oint22 GM T; +HUMALOG 751 UNIT/0.0 SC; +INSULIN LI100 UNIT/3 SQ
== END ==
LOC: WOUNDCARE 09:14
PROVIDERS: ATTEND Nurse Practitioner
DX: E11.621 Type 2 diabetes mellitus with foot ulcer (principal); L97.512 Non-pressure chronic ulcer of other part of right foot with fat layer exposed; E11.51 Type 2 diabetes mellitus with diabetic peripheral angiopathy without gangrene; E03.9 Hypothyroidism, unspecified; E78.5 Hyperlipidemia, unspecified; J44.9 Chronic obstructive pulmonary disease, unspecified; I12.9 Hypertensive chronic kidney disease with stage 1 through stage 4 chronic kidney disease, or unspecified chronic kidney disease; N18.30 Chronic kidney disease, stage 3 unspecified; Z96.641 Presence of right artificial hip joint; Z87.891 Personal history of nicotine dependence; Z90.49 Acquired absence of other specified parts of digestive tract; Z89.412 Acquired absence of left great toe; Z89.422 Acquired absence of other left toe(s)

== ENCOUNTER → 2021-05-15 | Outpatient (CLI) | payer OTHER ==
[~2021-05-15] MED LIST changes: +MAGNESIUM500 MG PO
== END ==
LOC: WOUNDCARE 02:10
PROVIDERS: ATTEND Nurse Practitioner
DX: E11.621 Type 2 diabetes mellitus with foot ulcer (principal); L97.512 Non-pressure chronic ulcer of other part of right foot with fat layer exposed; E11.51 Type 2 diabetes mellitus with diabetic peripheral angiopathy without gangrene; E03.9 Hypothyroidism, unspecified; E78.5 Hyperlipidemia, unspecified; J44.9 Chronic obstructive pulmonary disease, unspecified; I12.9 Hypertensive chronic kidney disease with stage 1 through stage 4 chronic kidney disease, or unspecified chronic kidney disease; N18.30 Chronic kidney disease, stage 3 unspecified; Z96.641 Presence of right artificial hip joint; Z87.891 Personal history of nicotine dependence; Z90.49 Acquired absence of other specified parts of digestive tract; Z89.412 Acquired absence of left great toe; Z89.422 Acquired absence of other left toe(s)

== ENCOUNTER → 2021-05-22 | Outpatient (CLI) | payer OTHER ==
[~2021-05-22] MED LIST changes: +TRULICITY4.5 MG/0.5 SQ
== END ==
LOC: WOUNDCARE 05-20 01:05
PROVIDERS: ATTEND Nurse Practitioner
DX: E11.621 Type 2 diabetes mellitus with foot ulcer (principal); L97.512 Non-pressure chronic ulcer of other part of right foot with fat layer exposed; L84 Corns and callosities; S40.821D Blister (nonthermal) of right upper arm, subsequent encounter; E11.51 Type 2 diabetes mellitus with diabetic peripheral angiopathy without gangrene; E11.22 Type 2 diabetes mellitus with diabetic chronic kidney disease; I12.9 Hypertensive chronic kidney disease with stage 1 through stage 4 chronic kidney disease, or unspecified chronic kidney disease; N18.30 Chronic kidney disease, stage 3 unspecified; E78.5 Hyperlipidemia, unspecified; E03.9 Hypothyroidism, unspecified; E11.40 Type 2 diabetes mellitus with diabetic neuropathy, unspecified; J44.9 Chronic obstructive pulmonary disease, unspecified; Z96.641 Presence of right artificial hip joint; Z89.412 Acquired absence of left great toe; Z89.422 Acquired absence of other left toe(s); Z95.5 Presence of coronary angioplasty implant and graft; Z87.891 Personal history of nicotine dependence; Z98.890 Other specified postprocedural states; X58.XXXD Exposure to other specified factors, subsequent encounter

== ENCOUNTER 2021-05-29 19:28 | Emergency (ER) | payer OTHER ==
[~2021-05-29] VITALS: Ht 182.8 cm; Wt 102.1 kg
[~2021-05-29 19:28] MED LIST changes: -TRULICITY4.5 MG/0.5 SQ
[2021-05-29 19:54] LABS: BASO % 0.4 % (0.0-1.0); EOS # 0.2 10*3/uL (0.0-0.4); EOS % 2.9 % (1.0-4.0); HEMATOCRIT 38.5 % (42.0-52.0); LYMPH # 2.2 10*3/uL (1.3-4.4); LYMPH % 27.9 % (27.0-41.0); MEAN CELL VOLUME 96.3 fl (80.0-94.0); MEAN CORPUSCULAR HGB 30.8 pg (27.0-31.0); MEAN CORPUSCULAR HGB CONC 31.9 g/dl (33.0-37.0); MEAN PLATELET VOLUME 11.5 fl (9.6-12.3); MONO # 0.6 10*3/uL (0.1-1.0); MONO % 8.3 % (3.0-9.0); NEUT # 4.6 10*3/uL (2.3-7.9); NEUT % 59.9 % (47.0-73.0); PLATELET COUNT AUTOMATED 189 10*3/uL (130-400); RED CELL DISTRI WIDTH 14.2 % (0-14.5); WHITE BLOOD COUNT 7.7 10*3/uL (4.8-10.8)
[2021-05-29 20:13] LABS: ALBUMIN 3.1 gm/dl (3.1-4.5); ALKALINE PHOSPHATASE 126 U/L (45-117); BUN 21 mg/dl (7-24); CHLORIDE 106 mmol/L (98-107); CREATININE 2.11 mg/dL (0.70-1.30); POTASSIUM 4.1 mmol/L (3.5-5.1); SGOT/AST 30 IU/L (3-35); SGPT/ALT 28 U/L (12-78); SODIUM 136 mmol/L (136-145); TOTAL PROTEIN 6.6 gm/dL (6.4-8.2)
[2021-05-29 20:20] LABS: TROPONIN I < 0.015 ng/ml (<0.045)
[2021-05-29 20:40] VITALS: BP 101/58
== END 2021-05-29 21:01 | disposition left against medical advice (07) ==
LOC: ED 19:28
PROVIDERS: Internal Medicine
DX: I95.9 Hypotension, unspecified (principal); Z87.891 Personal history of nicotine dependence; Z90.49 Acquired absence of other specified parts of digestive tract; Z98.890 Other specified postprocedural states; Z79.82 Long term (current) use of aspirin; Z79.899 Other long term (current) drug therapy; Z88.1 Allergy status to other antibiotic agents; Z88.8 Allergy status to other drugs, medicaments and biological substances

== ENCOUNTER → 2021-06-11 | Outpatient (CLI) | payer OTHER ==
[~2021-06-11] MED LIST changes: +TRULICITY4.5 MG/0.5 SQ
== END ==
LOC: WOUNDCARE 07:02
PROVIDERS: ATTEND Nurse Practitioner
DX: E11.621 Type 2 diabetes mellitus with foot ulcer (principal); L97.512 Non-pressure chronic ulcer of other part of right foot with fat layer exposed; L84 Corns and callosities; S40.821D Blister (nonthermal) of right upper arm, subsequent encounter; E11.51 Type 2 diabetes mellitus with diabetic peripheral angiopathy without gangrene; E11.22 Type 2 diabetes mellitus with diabetic chronic kidney disease; I12.9 Hypertensive chronic kidney disease with stage 1 through stage 4 chronic kidney disease, or unspecified chronic kidney disease; N18.30 Chronic kidney disease, stage 3 unspecified; E78.5 Hyperlipidemia, unspecified; E03.9 Hypothyroidism, unspecified; E11.40 Type 2 diabetes mellitus with diabetic neuropathy, unspecified; J44.9 Chronic obstructive pulmonary disease, unspecified; Z96.641 Presence of right artificial hip joint; Z89.412 Acquired absence of left great toe; Z89.422 Acquired absence of other left toe(s); Z95.5 Presence of coronary angioplasty implant and graft; Z87.891 Personal history of nicotine dependence; Z98.890 Other specified postprocedural states; X58.XXXD Exposure to other specified factors, subsequent encounter

== ENCOUNTER → 2021-06-25 | Outpatient (CLI) | payer OTHER | LOC: WOUNDCARE 01:45 | PROVIDERS: ATTEND Nurse Practitioner | DX: E11.621 Type 2 diabetes mellitus with foot ulcer (principal); L97.512 Non-pressure chronic ulcer of other part of right foot with fat layer exposed; L84 Corns and callosities; S40.821D Blister (nonthermal) of right upper arm, subsequent encounter; E11.51 Type 2 diabetes mellitus with diabetic peripheral angiopathy without gangrene; E11.22 Type 2 diabetes mellitus with diabetic chronic kidney disease; I12.9 Hypertensive chronic kidney disease with stage 1 through stage 4 chronic kidney disease, or unspecified chronic kidney disease; M18.30 Unilateral post-traumatic osteoarthritis of first carpometacarpal joint, unspecified hand; E78.5 Hyperlipidemia, unspecified; E03.9 Hypothyroidism, unspecified; E11.40 Type 2 diabetes mellitus with diabetic neuropathy, unspecified; J44.9 Chronic obstructive pulmonary disease, unspecified; Z96.641 Presence of right artificial hip joint; Z89.412 Acquired absence of left great toe; Z89.422 Acquired absence of other left toe(s); Z95.5 Presence of coronary angioplasty implant and graft; Z87.891 Personal history of nicotine dependence; Z98.890 Other specified postprocedural states; X58.XXXD Exposure to other specified factors, subsequent encounter ==

== ENCOUNTER 2021-07-02 13:13 | Inpatient (IN) | payer OTHER ==
[~2021-07-02] VITALS: Ht 182.8 cm; Wt 112.2 kg
[2021-07-02] VITALS (8 sets, daily range): BP systolic 106–1217; BP diastolic 56–89
[~2021-07-02 13:13] MED LIST changes: -TRULICITY4.5 MG/0.5 SQ
[2021-07-02 14:16] LABS: BASO % 0.3 % (0.0-1.0); EOS # 0.1 10*3/uL (0.0-0.4); EOS % 0.8 % (1.0-4.0); HEMATOCRIT 40.1 % (42.0-52.0); LYMPH # 2.1 10*3/uL (1.3-4.4); LYMPH % 17.4 % (27.0-41.0); MEAN CELL VOLUME 91.3 fl (80.0-94.0); MEAN CORPUSCULAR HGB 30.5 pg (27.0-31.0); MEAN CORPUSCULAR HGB CONC 33.4 g/dl (33.0-37.0); MEAN PLATELET VOLUME 11.9 fl (9.6-12.3); MONO % 8.7 % (3.0-9.0); NEUT # 8.3 10*3/uL (2.3-7.9); NEUT % 70.6 % (47.0-73.0); PLATELET COUNT AUTOMATED 165 10*3/uL (130-400); RED BLOOD COUNT 4.39 10*6/uL (4.50-5.90); RED CELL DISTRI WIDTH 13.7 % (0-14.5); WHITE BLOOD COUNT 11.8 10*3/uL (4.8-10.8)
[2021-07-02 14:31] LABS: ALBUMIN 2.8 gm/dl (3.1-4.5); ALKALINE PHOSPHATASE 81 U/L (45-117); BUN 56 mg/dl (7-24); CHLORIDE 103 mmol/L (98-107); POTASSIUM 4.2 mmol/L (3.5-5.1); SGOT/AST 23 IU/L (3-35); SGPT/ALT 45 U/L (12-78); SODIUM 134 mmol/L (136-145); TOTAL PROTEIN 5.3 gm/dL (6.4-8.2)
[2021-07-02 15:14] LABS: TROPONIN I < 0.015 ng/ml (<0.045)
[2021-07-02] MEDS ORDERED: GLIMEPIRIDE2 MG PO (18:17)
[2021-07-02] MEDS ORDERED: TRULICITY4.5 MG/0.5 SQ (18:17)
== END 2021-07-02 18:31 | disposition left against medical advice (07) | DRG 309 ==
LOC: ED 13:13 → 5E 16:05 → EDHOLD 16:05 → 5E 17:47
PROVIDERS: Emergency Medicine; ADMIT Internal Medicine; ATTEND Internal Medicine
DX: I48.91 Unspecified atrial fibrillation (principal); I50.32 Chronic diastolic (congestive) heart failure; R65.10 Systemic inflammatory response syndrome (SIRS) of non-infectious origin without acute organ dysfunction; E44.0 Moderate protein-calorie malnutrition; F33.9 Major depressive disorder, recurrent, unspecified; I13.0 Hypertensive heart and chronic kidney disease with heart failure and stage 1 through stage 4 chronic kidney disease, or unspecified chronic kidney disease; I25.10 Atherosclerotic heart disease of native coronary artery without angina pectoris; E83.42 Hypomagnesemia; Z96.641 Presence of right artificial hip joint; D64.9 Anemia, unspecified; N40.0 Benign prostatic hyperplasia without lower urinary tract symptoms; M1A.9XX0 Chronic gout, unspecified, without tophus (tophi); M51.37 Other intervertebral disc degeneration, lumbosacral region; F41.1 Generalized anxiety disorder; E11.42 Type 2 diabetes mellitus with diabetic polyneuropathy; N18.32 Chronic kidney disease, stage 3b; E11.22 Type 2 diabetes mellitus with diabetic chronic kidney disease; Z53.29 Procedure and treatment not carried out because of patient's decision for other reasons; E78.5 Hyperlipidemia, unspecified; E66.9 Obesity, unspecified; K21.9 Gastro-esophageal reflux disease without esophagitis; J44.9 Chronic obstructive pulmonary disease, unspecified; G47.33 Obstructive sleep apnea (adult) (pediatric); E11.65 Type 2 diabetes mellitus with hyperglycemia; Z90.49 Acquired absence of other specified parts of digestive tract; Z95.5 Presence of coronary angioplasty implant and graft; Z87.891 Personal history of nicotine dependence; Z80.0 Family history of malignant neoplasm of digestive organs; Z82.49 Family history of ischemic heart disease and other diseases of the circulatory system; Z88.0 Allergy status to penicillin; Z88.1 Allergy status to other antibiotic agents; Z88.8 Allergy status to other drugs, medicaments and biological substances; Z79.82 Long term (current) use of aspirin; Z79.899 Other long term (current) drug therapy; Z79.4 Long term (current) use of insulin; Z68.33 Body mass index [BMI] 33.0-33.9, adult

== ENCOUNTER 2021-07-04 02:54 | Emergency (ER) | payer OTHER ==
[~2021-07-04] VITALS: Ht 172.7 cm; Wt 114.8 kg
[~2021-07-04 02:54] MED LIST changes: +TRULICITY4.5 MG/0.5 SQ
[2021-07-04 02:58] VITALS: BP 151/76
[2021-07-04 09:12] LABS: BASO % 0.1 % (0.0-1.0); EOS # 0.2 10*3/uL (0.0-0.4); EOS % 1.7 % (1.0-4.0); LYMPH # 1.9 10*3/uL (1.3-4.4); MEAN CELL VOLUME 92.6 fl (80.0-94.0); MEAN CORPUSCULAR HGB 30.2 pg (27.0-31.0); MEAN CORPUSCULAR HGB CONC 32.6 g/dl (33.0-37.0); MEAN PLATELET VOLUME 12.1 fl (9.6-12.3); MONO # 0.6 10*3/uL (0.1-1.0); MONO % 7.1 % (3.0-9.0); NEUT # 5.9 10*3/uL (2.3-7.9); NEUT % 67.1 % (47.0-73.0); RED BLOOD COUNT 4.21 10*6/uL (4.50-5.90); RED CELL DISTRI WIDTH 13.9 % (0-14.5); WHITE BLOOD COUNT 8.8 10*3/uL (4.8-10.8)
[2021-07-04 09:27] LABS: ALBUMIN 2.7 gm/dl (3.1-4.5); ALKALINE PHOSPHATASE 82 U/L (45-117); BUN 48 mg/dl (7-24); CHLORIDE 105 mmol/L (98-107); CREATININE 1.93 mg/dL (0.70-1.30); LIPASE 461 U/L (73-393); POTASSIUM 4.2 mmol/L (3.5-5.1); SGOT/AST 19 IU/L (3-35); SGPT/ALT 44 U/L (12-78); SODIUM 137 mmol/L (136-145); TOTAL PROTEIN 5.5 gm/dL (6.4-8.2)
[2021-07-04 09:28] LABS: PLATELET COUNT AUTOMATED 109 10*3/uL (130-400); TROPONIN I < 0.015 ng/ml (<0.045)
== END 2021-07-04 15:07 | disposition left against medical advice (07) ==
LOC: ED 02:54
PROVIDERS: Emergency Medicine
DX: I73.9 Peripheral vascular disease, unspecified (principal); J44.9 Chronic obstructive pulmonary disease, unspecified; I10 Essential (primary) hypertension; E11.9 Type 2 diabetes mellitus without complications; I48.91 Unspecified atrial fibrillation; K21.9 Gastro-esophageal reflux disease without esophagitis; M10.9 Gout, unspecified; I25.10 Atherosclerotic heart disease of native coronary artery without angina pectoris; E78.5 Hyperlipidemia, unspecified; I13.0 Hypertensive heart and chronic kidney disease with heart failure and stage 1 through stage 4 chronic kidney disease, or unspecified chronic kidney disease; E11.22 Type 2 diabetes mellitus with diabetic chronic kidney disease; N18.30 Chronic kidney disease, stage 3 unspecified; I50.30 Unspecified diastolic (congestive) heart failure; Z88.1 Allergy status to other antibiotic agents; Z88.0 Allergy status to penicillin; Z79.899 Other long term (current) drug therapy; Z79.4 Long term (current) use of insulin; Z79.2 Long term (current) use of antibiotics

== ENCOUNTER 2021-07-06 12:33 | Emergency (ER) | payer OTHER ==
[~2021-07-06] VITALS: Ht 182.8 cm; Wt 110.2 kg
[2021-07-06 13:04] LABS: BASO % 0.1 % (0.0-1.0); EOS # 0.1 10*3/uL (0.0-0.4); EOS % 1.5 % (1.0-4.0); HEMATOCRIT 36.6 % (42.0-52.0); LYMPH % 12.9 % (27.0-41.0); MEAN CELL VOLUME 91.3 fl (80.0-94.0); MEAN CORPUSCULAR HGB 30.2 pg (27.0-31.0); MEAN CORPUSCULAR HGB CONC 33.1 g/dl (33.0-37.0); MEAN PLATELET VOLUME 12.2 fl (9.6-12.3); MONO # 0.6 10*3/uL (0.1-1.0); MONO % 7.5 % (3.0-9.0); NEUT # 6.2 10*3/uL (2.3-7.9); NEUT % 77.1 % (47.0-73.0); PLATELET COUNT AUTOMATED 94 10*3/uL (130-400); RED BLOOD COUNT 4.01 10*6/uL (4.50-5.90); RED CELL DISTRI WIDTH 13.8 % (0-14.5)
[2021-07-06 13:13] LABS: BUN 27 mg/dl (7-24); CHLORIDE 104 mmol/L (98-107); CREATININE 1.28 mg/dL (0.70-1.30); POTASSIUM 4.2 mmol/L (3.5-5.1); SODIUM 136 mmol/L (136-145)
[2021-07-07 02:21] VITALS: BP 116/67
== END 2021-07-07 03:05 | disposition short-term general hospital (02) ==
LOC: ED 12:33
PROVIDERS: Emergency Medicine
DX: I73.9 Peripheral vascular disease, unspecified (principal); K21.9 Gastro-esophageal reflux disease without esophagitis; M10.9 Gout, unspecified; E78.5 Hyperlipidemia, unspecified; I13.0 Hypertensive heart and chronic kidney disease with heart failure and stage 1 through stage 4 chronic kidney disease, or unspecified chronic kidney disease; E11.22 Type 2 diabetes mellitus with diabetic chronic kidney disease; N18.30 Chronic kidney disease, stage 3 unspecified; Z88.0 Allergy status to penicillin; Z88.1 Allergy status to other antibiotic agents; Z79.899 Other long term (current) drug therapy; Z79.82 Long term (current) use of aspirin; Z79.4 Long term (current) use of insulin

== ENCOUNTER 2021-07-12 11:36 | Emergency (ER) | payer OTHER ==
[~2021-07-12] VITALS: Ht 154.9 cm; Wt 102.1 kg
[2021-07-12 11:56] LABS: BASO % 0.2 % (0.0-1.0); EOS # 0.1 10*3/uL (0.0-0.4); EOS % 2.4 % (1.0-4.0); HEMATOCRIT 33.5 % (42.0-52.0); LYMPH # 1.2 10*3/uL (1.3-4.4); LYMPH % 21.2 % (27.0-41.0); MEAN CELL VOLUME 94.9 fl (80.0-94.0); MEAN CORPUSCULAR HGB 30.3 pg (27.0-31.0); MEAN CORPUSCULAR HGB CONC 31.9 g/dl (33.0-37.0); MEAN PLATELET VOLUME 11.9 fl (9.6-12.3); MONO # 0.5 10*3/uL (0.1-1.0); MONO % 8.6 % (3.0-9.0); NEUT # 3.7 10*3/uL (2.3-7.9); NEUT % 67.1 % (47.0-73.0); PLATELET COUNT AUTOMATED 94 10*3/uL (130-400); RED BLOOD COUNT 3.53 10*6/uL (4.50-5.90); RED CELL DISTRI WIDTH 14.4 % (0-14.5); WHITE BLOOD COUNT 5.5 10*3/uL (4.8-10.8)
[2021-07-12 12:06] LABS: CREATININE 1.63 mg/dL (0.70-1.30); POTASSIUM 4.7 mmol/L (3.5-5.1)
[2021-07-12 13:19] VITALS: BP 117/65
== END 2021-07-12 15:00 | disposition home or self-care (01) ==
LOC: ED 11:36
PROVIDERS: Emergency Medicine
DX: R60.0 Localized edema (principal); R23.8 Other skin changes; E11.51 Type 2 diabetes mellitus with diabetic peripheral angiopathy without gangrene; E11.22 Type 2 diabetes mellitus with diabetic chronic kidney disease; I13.0 Hypertensive heart and chronic kidney disease with heart failure and stage 1 through stage 4 chronic kidney disease, or unspecified chronic kidney disease; N18.30 Chronic kidney disease, stage 3 unspecified; I50.32 Chronic diastolic (congestive) heart failure; I25.10 Atherosclerotic heart disease of native coronary artery without angina pectoris; I48.91 Unspecified atrial fibrillation; J44.9 Chronic obstructive pulmonary disease, unspecified; F32.9 Major depressive disorder, single episode, unspecified; E11.40 Type 2 diabetes mellitus with diabetic neuropathy, unspecified; K21.9 Gastro-esophageal reflux disease without esophagitis; E78.5 Hyperlipidemia, unspecified; E66.9 Obesity, unspecified; F17.200 Nicotine dependence, unspecified, uncomplicated; Z89.432 Acquired absence of left foot; Z88.1 Allergy status to other antibiotic agents; Z88.0 Allergy status to penicillin; Z79.899 Other long term (current) drug therapy; Z79.2 Long term (current) use of antibiotics; Z79.4 Long term (current) use of insulin; Z79.82 Long term (current) use of aspirin; Z86.73 Personal history of transient ischemic attack (TIA), and cerebral infarction without residual deficits; Z68.30 Body mass index [BMI] 30.0-30.9, adult; Z98.61 Coronary angioplasty status

== ENCOUNTER 2021-07-14 18:04 | Emergency (ER) | payer OTHER ==
[~2021-07-14] VITALS: Ht 182.8 cm; Wt 111.1 kg
[2021-07-14 18:30] VITALS: BP 140/77
== END 2021-07-14 19:32 | disposition home or self-care (01) ==
LOC: ED 18:04
DX: Z48.01 Encounter for change or removal of surgical wound dressing (principal); I73.89 Other specified peripheral vascular diseases; F17.200 Nicotine dependence, unspecified, uncomplicated; Z98.890 Other specified postprocedural states; Z96.641 Presence of right artificial hip joint; Z79.899 Other long term (current) drug therapy; Z79.82 Long term (current) use of aspirin; Z88.0 Allergy status to penicillin; Z88.8 Allergy status to other drugs, medicaments and biological substances

== ENCOUNTER 2021-07-22 01:14 | Emergency (ER) | payer OTHER ==
[~2021-07-22] VITALS: Ht 182.8 cm; Wt 90.7 kg
[2021-07-22 01:31] LABS: BASO % 0.2 % (0.0-1.0); EOS # 0.2 10*3/uL (0.0-0.4); EOS % 5.2 % (1.0-4.0); HEMATOCRIT 31.7 % (42.0-52.0); LYMPH # 1.6 10*3/uL (1.3-4.4); LYMPH % 35.4 % (27.0-41.0); MEAN CELL VOLUME 95.2 fl (80.0-94.0); MEAN CORPUSCULAR HGB CONC 31.5 g/dl (33.0-37.0); MEAN PLATELET VOLUME 10.3 fl (9.6-12.3); MONO # 0.5 10*3/uL (0.1-1.0); MONO % 11.1 % (3.0-9.0); NEUT % 46.1 % (47.0-73.0); PLATELET COUNT AUTOMATED 240 10*3/uL (130-400); RED BLOOD COUNT 3.33 10*6/uL (4.50-5.90); RED CELL DISTRI WIDTH 14.6 % (0-14.5); WHITE BLOOD COUNT 4.4 10*3/uL (4.8-10.8)
[2021-07-22 01:37] VITALS: BP 145/86
[2021-07-22 01:48] LABS: ALBUMIN 2.3 gm/dl (3.1-4.5); ALKALINE PHOSPHATASE 94 U/L (45-117); BUN 26 mg/dl (7-24); CHLORIDE 108 mmol/L (98-107); CREATININE 1.99 mg/dL (0.70-1.30); POTASSIUM 4.8 mmol/L (3.5-5.1); SGOT/AST 20 IU/L (3-35); SGPT/ALT 26 U/L (12-78); SODIUM 140 mmol/L (136-145); TOTAL PROTEIN 5.4 gm/dL (6.4-8.2)
[2021-07-22 01:54] LABS: TROPONIN I < 0.015 ng/ml (<0.045)
== END 2021-07-22 08:00 | disposition home or self-care (01) ==
LOC: ED 01:14
PROVIDERS: Emergency Medicine
DX: I48.91 Unspecified atrial fibrillation (principal); E83.42 Hypomagnesemia; R07.89 Other chest pain; I25.10 Atherosclerotic heart disease of native coronary artery without angina pectoris; J44.9 Chronic obstructive pulmonary disease, unspecified; E11.22 Type 2 diabetes mellitus with diabetic chronic kidney disease; I13.0 Hypertensive heart and chronic kidney disease with heart failure and stage 1 through stage 4 chronic kidney disease, or unspecified chronic kidney disease; N18.9 Chronic kidney disease, unspecified; I50.32 Chronic diastolic (congestive) heart failure; E11.51 Type 2 diabetes mellitus with diabetic peripheral angiopathy without gangrene; F32.9 Major depressive disorder, single episode, unspecified; K21.9 Gastro-esophageal reflux disease without esophagitis; E11.40 Type 2 diabetes mellitus with diabetic neuropathy, unspecified; E66.9 Obesity, unspecified; Z88.1 Allergy status to other antibiotic agents; Z88.0 Allergy status to penicillin; Z88.8 Allergy status to other drugs, medicaments and biological substances; Z79.899 Other long term (current) drug therapy; Z79.4 Long term (current) use of insulin; Z86.73 Personal history of transient ischemic attack (TIA), and cerebral infarction without residual deficits; Z68.30 Body mass index [BMI] 30.0-30.9, adult; Z95.5 Presence of coronary angioplasty implant and graft; Z96.641 Presence of right artificial hip joint; Z98.890 Other specified postprocedural states; Z89.422 Acquired absence of other left toe(s); Z90.49 Acquired absence of other specified parts of digestive tract; Z87.891 Personal history of nicotine dependence

== ENCOUNTER → 2021-07-23 | Outpatient (CLI) | payer OTHER | LOC: WOUNDCARE 03:19 | PROVIDERS: ATTEND Nurse Practitioner | DX: E11.621 Type 2 diabetes mellitus with foot ulcer (principal); L97.512 Non-pressure chronic ulcer of other part of right foot with fat layer exposed; L84 Corns and callosities; S40.821D Blister (nonthermal) of right upper arm, subsequent encounter; E11.51 Type 2 diabetes mellitus with diabetic peripheral angiopathy without gangrene; E11.22 Type 2 diabetes mellitus with diabetic chronic kidney disease; I12.9 Hypertensive chronic kidney disease with stage 1 through stage 4 chronic kidney disease, or unspecified chronic kidney disease; M18.30 Unilateral post-traumatic osteoarthritis of first carpometacarpal joint, unspecified hand; E78.5 Hyperlipidemia, unspecified; E03.9 Hypothyroidism, unspecified; E11.40 Type 2 diabetes mellitus with diabetic neuropathy, unspecified; J44.9 Chronic obstructive pulmonary disease, unspecified; Z96.641 Presence of right artificial hip joint; Z89.412 Acquired absence of left great toe; Z89.422 Acquired absence of other left toe(s) ==

== ENCOUNTER → 2021-08-06 | Outpatient (CLI) | payer OTHER | LOC: WOUNDCARE 00:48 | PROVIDERS: ATTEND Nurse Practitioner | DX: E11.621 Type 2 diabetes mellitus with foot ulcer (principal); L97.512 Non-pressure chronic ulcer of other part of right foot with fat layer exposed; L84 Corns and callosities; S40.821D Blister (nonthermal) of right upper arm, subsequent encounter; E11.51 Type 2 diabetes mellitus with diabetic peripheral angiopathy without gangrene; E11.22 Type 2 diabetes mellitus with diabetic chronic kidney disease; I12.9 Hypertensive chronic kidney disease with stage 1 through stage 4 chronic kidney disease, or unspecified chronic kidney disease; M18.30 Unilateral post-traumatic osteoarthritis of first carpometacarpal joint, unspecified hand; E78.5 Hyperlipidemia, unspecified; E03.9 Hypothyroidism, unspecified; E11.40 Type 2 diabetes mellitus with diabetic neuropathy, unspecified; J44.9 Chronic obstructive pulmonary disease, unspecified; Z96.641 Presence of right artificial hip joint; Z89.412 Acquired absence of left great toe; Z89.422 Acquired absence of other left toe(s); X58.XXXD Exposure to other specified factors, subsequent encounter ==

== ENCOUNTER 2021-08-17 17:57 | Emergency (ER) | payer OTHER ==
[~2021-08-17] VITALS: Ht 182.8 cm; Wt 108.9 kg
[2021-08-17 18:06] VITALS: BP 143/79
[2021-08-17 18:31] LABS: BASO % 0.5 % (0.0-1.0); EOS # 0.4 10*3/uL (0.0-0.4); EOS % 4.9 % (1.0-4.0); HEMATOCRIT 37.7 % (42.0-52.0); LYMPH # 1.9 10*3/uL (1.3-4.4); LYMPH % 23.9 % (27.0-41.0); MEAN CELL VOLUME 97.2 fl (80.0-94.0); MEAN CORPUSCULAR HGB 29.9 pg (27.0-31.0); MEAN CORPUSCULAR HGB CONC 30.8 g/dl (33.0-37.0); MEAN PLATELET VOLUME 11.4 fl (9.6-12.3); MONO # 0.6 10*3/uL (0.1-1.0); MONO % 7.4 % (3.0-9.0); NEUT # 5.1 10*3/uL (2.3-7.9); NEUT % 62.6 % (47.0-73.0); PLATELET COUNT AUTOMATED 199 10*3/uL (130-400); RED BLOOD COUNT 3.88 10*6/uL (4.50-5.90); RED CELL DISTRI WIDTH 16.1 % (0-14.5); WHITE BLOOD COUNT 8.1 10*3/uL (4.8-10.8)
[2021-08-17 18:47] LABS: ALBUMIN 2.9 gm/dl (3.1-4.5); CREATININE 1.42 mg/dL (0.70-1.30); POTASSIUM 3.9 mmol/L (3.5-5.1); TOTAL PROTEIN 6.1 gm/dL (6.4-8.2)
[2021-08-17 19:48] LABS: BILIRUBIN Negative (Negative); BLOOD Negative (Negative); CLARITY Clear (Clear); COLOR Yellow (Yellow); GLUCOSE Negative (Negative); KETONE Trace (Negative); LEUKO ESTERASE Negative (Negative); NITRITE Negative (Negative); SPECIFIC GRAVITY 1.025 (1.001-1.030)
[2021-08-17 19:55] LABS: BACTERIA 1+; EPITHELIAL CELLS 0-2
== END 2021-08-18 03:26 | disposition home or self-care (01) ==
LOC: ED 17:57
PROVIDERS: Student in an Organized Health Care Education/Training Program
DX: K57.92 Diverticulitis of intestine, part unspecified, without perforation or abscess without bleeding (principal); Z88.1 Allergy status to other antibiotic agents; Z79.899 Other long term (current) drug therapy

== ENCOUNTER → 2021-08-20 | Outpatient (CLI) | payer OTHER | LOC: WOUNDCARE 01:04 | PROVIDERS: ATTEND Surgery | DX: E11.621 Type 2 diabetes mellitus with foot ulcer (principal); L97.512 Non-pressure chronic ulcer of other part of right foot with fat layer exposed; L84 Corns and callosities; S40.821D Blister (nonthermal) of right upper arm, subsequent encounter; E11.51 Type 2 diabetes mellitus with diabetic peripheral angiopathy without gangrene; E11.22 Type 2 diabetes mellitus with diabetic chronic kidney disease; N18.30 Chronic kidney disease, stage 3 unspecified; I12.9 Hypertensive chronic kidney disease with stage 1 through stage 4 chronic kidney disease, or unspecified chronic kidney disease; E03.9 Hypothyroidism, unspecified; E11.40 Type 2 diabetes mellitus with diabetic neuropathy, unspecified; J44.9 Chronic obstructive pulmonary disease, unspecified; Z96.641 Presence of right artificial hip joint; Z89.412 Acquired absence of left great toe; Z89.422 Acquired absence of other left toe(s); X58.XXXD Exposure to other specified factors, subsequent encounter ==

== ENCOUNTER → 2021-08-30 | Outpatient (CLI) | payer OTHER ==
[~2021-08-30] MED LIST changes: +CARDIZEM CD120 M2 PO; +CIPROFLOXACIN2.5 M1 OT
== END ==
LOC: WOUNDCARE 00:22
PROVIDERS: ATTEND Nurse Practitioner Family
DX: E11.621 Type 2 diabetes mellitus with foot ulcer (principal); L97.512 Non-pressure chronic ulcer of other part of right foot with fat layer exposed; L84 Corns and callosities; E11.51 Type 2 diabetes mellitus with diabetic peripheral angiopathy without gangrene; E11.22 Type 2 diabetes mellitus with diabetic chronic kidney disease; N18.30 Chronic kidney disease, stage 3 unspecified; I12.9 Hypertensive chronic kidney disease with stage 1 through stage 4 chronic kidney disease, or unspecified chronic kidney disease; E03.9 Hypothyroidism, unspecified; E11.40 Type 2 diabetes mellitus with diabetic neuropathy, unspecified; J44.9 Chronic obstructive pulmonary disease, unspecified; Z96.641 Presence of right artificial hip joint; Z89.412 Acquired absence of left great toe; Z89.422 Acquired absence of other left toe(s); X58.XXXD Exposure to other specified factors, subsequent encounter

== ENCOUNTER 2021-09-03 12:10 | Inpatient (IN) | payer OTHER ==
[2021-09-03] VITALS (10 sets, daily range): BP systolic 100–143; BP diastolic 69–89
[~2021-09-03] VITALS: Ht 182.9 cm; Wt 102.1 kg
[~2021-09-03 12:10] MED LIST changes: -CARDIZEM CD120 M2 PO; -CIPROFLOXACIN2.5 M1 OT
[2021-09-03 12:49] LABS: BASO % 0.4 % (0.0-1.0); EOS # 0.5 10*3/uL (0.0-0.4); EOS % 4.9 % (1.0-4.0); HEMATOCRIT 35.8 % (42.0-52.0); LYMPH # 1.7 10*3/uL (1.3-4.4); LYMPH % 18.2 % (27.0-41.0); MEAN CELL VOLUME 93.5 fl (80.0-94.0); MEAN CORPUSCULAR HGB 29.8 pg (27.0-31.0); MEAN CORPUSCULAR HGB CONC 31.8 g/dl (33.0-37.0); MEAN PLATELET VOLUME 11.2 fl (9.6-12.3); MONO # 0.7 10*3/uL (0.1-1.0); MONO % 8.1 % (3.0-9.0); NEUT # 6.2 10*3/uL (2.3-7.9); NEUT % 67.7 % (47.0-73.0); PLATELET COUNT AUTOMATED 163 10*3/uL (130-400); RED BLOOD COUNT 3.83 10*6/uL (4.50-5.90); RED CELL DISTRI WIDTH 14.8 % (0-14.5); WHITE BLOOD COUNT 9.2 10*3/uL (4.8-10.8)
[2021-09-03 13:01] LABS: ACT PARTIAL THROMBO TIME 38.9 SECONDS (20.0-32.1); INTERNATIONAL NORM RATIO 1.7 (2.0-3.5)
[2021-09-03 13:08] LABS: ALBUMIN 2.7 gm/dl (3.1-4.5); ALKALINE PHOSPHATASE 111 U/L (45-117); BUN 25 mg/dl (7-24); CHLORIDE 108 mmol/L (98-107); CREATININE 1.66 mg/dL (0.70-1.30); SGOT/AST 13 IU/L (3-35); SGPT/ALT 20 U/L (12-78); SODIUM 140 mmol/L (136-145); TOTAL PROTEIN 5.7 gm/dL (6.4-8.2)
[2021-09-03 13:13] LABS: TROPONIN I < 0.015 ng/ml (<0.045)
[2021-09-03] MEDS ORDERED: INSULIN LI100 UNIT/3 SQ (19:18)
[2021-09-03] MEDS ORDERED: ASPIRIN ADULT L81 M2 PO (19:19)
[2021-09-03] MEDS ORDERED: FAMOTIDINE40 MG PO (19:20)
[2021-09-04] VITALS: BP 150/71
[2021-09-04 06:37] LABS: BASO % 0.5 % (0.0-1.0); EOS # 0.4 10*3/uL (0.0-0.4); EOS % 5.7 % (1.0-4.0); HEMATOCRIT 33.7 % (42.0-52.0); LYMPH # 1.2 10*3/uL (1.3-4.4); LYMPH % 18.2 % (27.0-41.0); MEAN CELL VOLUME 93.6 fl (80.0-94.0); MEAN CORPUSCULAR HGB 29.4 pg (27.0-31.0); MEAN CORPUSCULAR HGB CONC 31.5 g/dl (33.0-37.0); MEAN PLATELET VOLUME 11.5 fl (9.6-12.3); MONO # 0.5 10*3/uL (0.1-1.0); MONO % 7.4 % (3.0-9.0); NEUT # 4.4 10*3/uL (2.3-7.9); NEUT % 67.7 % (47.0-73.0); PLATELET COUNT AUTOMATED 157 10*3/uL (130-400); RED CELL DISTRI WIDTH 14.7 % (0-14.5); WHITE BLOOD COUNT 6.5 10*3/uL (4.8-10.8)
[2021-09-04 06:53] LABS: ALBUMIN 2.5 gm/dl (3.1-4.5); ALKALINE PHOSPHATASE 109 U/L (45-117); BUN 22 mg/dl (7-24); CHLORIDE 108 mmol/L (98-107); CHOLESTEROL 107 mg/dL (<200); CREATININE 1.37 mg/dL (0.70-1.30); FREE T4 0.91 ng/dl (0.76-1.46); LDL CHOLESTEROL 26 mg/dL (9-159); POTASSIUM 4.1 mmol/L (3.5-5.1); SGOT/AST 12 IU/L (3-35); SGPT/ALT 18 U/L (12-78); SODIUM 140 mmol/L (136-145); TOTAL PROTEIN 5.7 gm/dL (6.4-8.2); TRIGLYCERIDES 217 mg/dl (<150)
[2021-09-04 06:59] LABS: THYROID STIM HORMONE (HS) 0.965 uIU/ml (0.358-4.75)
[2021-09-04 07:32] LABS: VITAMIN D, 25-HYDROXY 47.5 ng/mL (30-100)
[2021-09-04 08:00] VITALS: BP 142/70
[2021-09-04 12:00] VITALS: BP 128/78
[2021-09-04] MEDS ORDERED: CARDIZEM CD120 M2 PO (13:34)
[2021-09-04] MEDS ORDERED: IMDUR SA30 MG PO (13:34)
[2021-09-04] MEDS ORDERED: CIPROFLOXACIN2.5 M1 OT (13:34)
== END 2021-09-04 14:23 | disposition home or self-care (01) | DRG 303 ==
LOC: ED 12:10 → EDHOLD 13:56 → 5E 13:56 → EDHOLD 15:17 → 4E 18:42 → 5E 20:11
PROVIDERS: Emergency Medicine; Family Medicine; ADMIT Family Medicine; ATTEND Family Medicine
DX: I25.119 Atherosclerotic heart disease of native coronary artery with unspecified angina pectoris (principal); E44.0 Moderate protein-calorie malnutrition; N18.30 Chronic kidney disease, stage 3 unspecified; E83.42 Hypomagnesemia; K57.90 Diverticulosis of intestine, part unspecified, without perforation or abscess without bleeding; D64.9 Anemia, unspecified; E83.51 Hypocalcemia; I48.91 Unspecified atrial fibrillation; E11.22 Type 2 diabetes mellitus with diabetic chronic kidney disease; I12.9 Hypertensive chronic kidney disease with stage 1 through stage 4 chronic kidney disease, or unspecified chronic kidney disease; E87.8 Other disorders of electrolyte and fluid balance, not elsewhere classified; E66.9 Obesity, unspecified; E11.65 Type 2 diabetes mellitus with hyperglycemia; Z88.0 Allergy status to penicillin; Z88.1 Allergy status to other antibiotic agents; Z79.4 Long term (current) use of insulin; Z91.19 Patient's noncompliance with other medical treatment and regimen; Z90.49 Acquired absence of other specified parts of digestive tract; E78.5 Hyperlipidemia, unspecified; Z96.641 Presence of right artificial hip joint; Z95.5 Presence of coronary angioplasty implant and graft; Z82.49 Family history of ischemic heart disease and other diseases of the circulatory system

== ENCOUNTER → 2021-09-06 | Outpatient (CLI) | payer OTHER ==
[~2021-09-06] MED LIST changes: +CARDIZEM CD120 M2 PO; +CIPROFLOXACIN2.5 M1 OT
== END ==
LOC: WOUNDCARE 00:27
PROVIDERS: ATTEND Nurse Practitioner Family
DX: E11.621 Type 2 diabetes mellitus with foot ulcer (principal); L97.512 Non-pressure chronic ulcer of other part of right foot with fat layer exposed; L84 Corns and callosities; E11.51 Type 2 diabetes mellitus with diabetic peripheral angiopathy without gangrene; E11.22 Type 2 diabetes mellitus with diabetic chronic kidney disease; N18.30 Chronic kidney disease, stage 3 unspecified; I12.9 Hypertensive chronic kidney disease with stage 1 through stage 4 chronic kidney disease, or unspecified chronic kidney disease; E11.40 Type 2 diabetes mellitus with diabetic neuropathy, unspecified; E03.9 Hypothyroidism, unspecified; J44.9 Chronic obstructive pulmonary disease, unspecified; Z96.641 Presence of right artificial hip joint; Z89.412 Acquired absence of left great toe

== ENCOUNTER 2021-09-15 10:40 | Inpatient (IN) | payer OTHER ==
[~2021-09-15] VITALS: Ht 182.8 cm; Wt 111.1 kg
[2021-09-15 10:46] VITALS: BP 135/53
[2021-09-15 11:07] LABS: BASO % 0.5 % (0.0-1.0); EOS # 0.4 10*3/uL (0.0-0.4); EOS % 4.9 % (1.0-4.0); HEMATOCRIT 36.6 % (42.0-52.0); LYMPH # 1.6 10*3/uL (1.3-4.4); LYMPH % 19.1 % (27.0-41.0); MEAN CELL VOLUME 93.6 fl (80.0-94.0); MEAN CORPUSCULAR HGB 29.4 pg (27.0-31.0); MEAN CORPUSCULAR HGB CONC 31.4 g/dl (33.0-37.0); MEAN PLATELET VOLUME 10.9 fl (9.6-12.3); MONO # 0.6 10*3/uL (0.1-1.0); MONO % 6.8 % (3.0-9.0); NEUT # 5.5 10*3/uL (2.3-7.9); NEUT % 68.1 % (47.0-73.0); PLATELET COUNT AUTOMATED 202 10*3/uL (130-400); RED BLOOD COUNT 3.91 10*6/uL (4.50-5.90); RED CELL DISTRI WIDTH 14.7 % (0-14.5); WHITE BLOOD COUNT 8.1 10*3/uL (4.8-10.8)
[2021-09-15 11:18] LABS: INTERNATIONAL NORM RATIO 1.7 (2.0-3.5)
[2021-09-15 11:25] LABS: ALBUMIN 2.8 gm/dl (3.1-4.5); ALKALINE PHOSPHATASE 125 U/L (45-117); BUN 17 mg/dl (7-24); CHLORIDE 109 mmol/L (98-107); CREATININE 1.56 mg/dL (0.70-1.30); POTASSIUM 3.8 mmol/L (3.5-5.1); SGOT/AST 16 IU/L (3-35); SGPT/ALT 22 U/L (12-78); SODIUM 141 mmol/L (136-145)
[2021-09-15 11:29] LABS: TROPONIN I < 0.015 ng/ml (<0.045)
[2021-09-15 13:00] VITALS: BP 134/50
[2021-09-15 14:25] VITALS: BP 138/60
[2021-09-15 16:30] VITALS: BP 138/60
[2021-09-15 18:15] VITALS: BP 138/60
[2021-09-15 20:00] VITALS: BP 144/79
[2021-09-16 00:09] VITALS: BP 138/61
[2021-09-16 04:18] VITALS: BP 141/64
[2021-09-16 05:31] LABS: ALBUMIN 2.6 gm/dl (3.1-4.5); CREATININE 1.51 mg/dL (0.70-1.30); POTASSIUM 4.3 mmol/L (3.5-5.1); TOTAL PROTEIN 5.9 gm/dL (6.4-8.2)
[2021-09-16 06:19] LABS: BASO % 0.6 % (0.0-1.0); EOS # 0.5 10*3/uL (0.0-0.4); EOS % 6.7 % (1.0-4.0); HEMATOCRIT 37.2 % (42.0-52.0); LYMPH # 1.6 10*3/uL (1.3-4.4); LYMPH % 22.5 % (27.0-41.0); MEAN CELL VOLUME 95.1 fl (80.0-94.0); MEAN CORPUSCULAR HGB 29.4 pg (27.0-31.0); MEAN CORPUSCULAR HGB CONC 30.9 g/dl (33.0-37.0); MEAN PLATELET VOLUME 11.4 fl (9.6-12.3); MONO # 0.7 10*3/uL (0.1-1.0); NEUT # 4.2 10*3/uL (2.3-7.9); NEUT % 59.8 % (47.0-73.0); PLATELET COUNT AUTOMATED 187 10*3/uL (130-400); RED BLOOD COUNT 3.91 10*6/uL (4.50-5.90); RED CELL DISTRI WIDTH 15.3 % (0-14.5)
[2021-09-16 06:56] VITALS: BP 138/61
[2021-09-16 07:18] VITALS: BP 127/68
== END 2021-09-16 11:56 | disposition home or self-care (01) | DRG 309 ==
LOC: ED 10:40 → EDHOLD 14:54
PROVIDERS: Emergency Medicine; Student in an Organized Health Care Education/Training Program; ADMIT Emergency Medicine; ATTEND Emergency Medicine
DX: R00.2 Palpitations (principal); I13.0 Hypertensive heart and chronic kidney disease with heart failure and stage 1 through stage 4 chronic kidney disease, or unspecified chronic kidney disease; I50.32 Chronic diastolic (congestive) heart failure; E44.0 Moderate protein-calorie malnutrition; E11.22 Type 2 diabetes mellitus with diabetic chronic kidney disease; N18.30 Chronic kidney disease, stage 3 unspecified; Z96.641 Presence of right artificial hip joint; I25.10 Atherosclerotic heart disease of native coronary artery without angina pectoris; E11.41 Type 2 diabetes mellitus with diabetic mononeuropathy; E78.5 Hyperlipidemia, unspecified; K21.9 Gastro-esophageal reflux disease without esophagitis; J44.9 Chronic obstructive pulmonary disease, unspecified; I48.91 Unspecified atrial fibrillation; Z90.49 Acquired absence of other specified parts of digestive tract; Z95.5 Presence of coronary angioplasty implant and graft; Z87.891 Personal history of nicotine dependence; Z80.0 Family history of malignant neoplasm of digestive organs; Z82.49 Family history of ischemic heart disease and other diseases of the circulatory system; Z88.0 Allergy status to penicillin; Z88.1 Allergy status to other antibiotic agents; Z88.8 Allergy status to other drugs, medicaments and biological substances; Z88.2 Allergy status to sulfonamides; Z79.82 Long term (current) use of aspirin; Z79.4 Long term (current) use of insulin; Z79.899 Other long term (current) drug therapy

== ENCOUNTER → 2021-09-17 | Outpatient (CLI) | payer OTHER | LOC: WOUNDCARE 01:26 | PROVIDERS: ATTEND Nurse Practitioner Family | DX: E11.621 Type 2 diabetes mellitus with foot ulcer (principal); L97.512 Non-pressure chronic ulcer of other part of right foot with fat layer exposed; L97.521 Non-pressure chronic ulcer of other part of left foot limited to breakdown of skin; L84 Corns and callosities; E11.51 Type 2 diabetes mellitus with diabetic peripheral angiopathy without gangrene; E11.22 Type 2 diabetes mellitus with diabetic chronic kidney disease; N18.30 Chronic kidney disease, stage 3 unspecified; I12.9 Hypertensive chronic kidney disease with stage 1 through stage 4 chronic kidney disease, or unspecified chronic kidney disease; E11.40 Type 2 diabetes mellitus with diabetic neuropathy, unspecified; E03.9 Hypothyroidism, unspecified; J44.9 Chronic obstructive pulmonary disease, unspecified; Z96.641 Presence of right artificial hip joint; Z89.412 Acquired absence of left great toe ==

== ENCOUNTER → 2021-09-25 | Outpatient (CLI) | payer OTHER | LOC: WOUNDCARE 00:57 | PROVIDERS: ATTEND Nurse Practitioner Family | DX: E11.621 Type 2 diabetes mellitus with foot ulcer (principal); L97.512 Non-pressure chronic ulcer of other part of right foot with fat layer exposed; L97.521 Non-pressure chronic ulcer of other part of left foot limited to breakdown of skin; L84 Corns and callosities; E11.51 Type 2 diabetes mellitus with diabetic peripheral angiopathy without gangrene; E11.22 Type 2 diabetes mellitus with diabetic chronic kidney disease; N18.30 Chronic kidney disease, stage 3 unspecified; I12.9 Hypertensive chronic kidney disease with stage 1 through stage 4 chronic kidney disease, or unspecified chronic kidney disease; E11.40 Type 2 diabetes mellitus with diabetic neuropathy, unspecified; E03.9 Hypothyroidism, unspecified; J44.9 Chronic obstructive pulmonary disease, unspecified; Z96.641 Presence of right artificial hip joint; Z89.412 Acquired absence of left great toe ==

== ENCOUNTER → 2021-09-30 | Outpatient (CLI) | payer OTHER | LOC: WOUNDCARE 02:33 | PROVIDERS: ATTEND Nurse Practitioner Family | DX: E11.621 Type 2 diabetes mellitus with foot ulcer (principal); L97.512 Non-pressure chronic ulcer of other part of right foot with fat layer exposed; L97.521 Non-pressure chronic ulcer of other part of left foot limited to breakdown of skin; L84 Corns and callosities; E11.51 Type 2 diabetes mellitus with diabetic peripheral angiopathy without gangrene; E11.22 Type 2 diabetes mellitus with diabetic chronic kidney disease; N18.30 Chronic kidney disease, stage 3 unspecified; I12.9 Hypertensive chronic kidney disease with stage 1 through stage 4 chronic kidney disease, or unspecified chronic kidney disease; E11.40 Type 2 diabetes mellitus with diabetic neuropathy, unspecified; E11.69 Type 2 diabetes mellitus with other specified complication; M86.9 Osteomyelitis, unspecified; E03.9 Hypothyroidism, unspecified; J44.9 Chronic obstructive pulmonary disease, unspecified; Z96.641 Presence of right artificial hip joint; Z89.412 Acquired absence of left great toe ==

== ENCOUNTER 2021-10-01 13:37 | Observation (INO) | payer OTHER ==
[~2021-10-01] VITALS: Ht 182.8 cm; Wt 102.5 kg
[2021-10-01 13:57] VITALS: BP 143/69
[2021-10-01 14:06] LABS: BASO % 0.4 % (0.0-1.0); EOS # 0.4 10*3/uL (0.0-0.4); EOS % 3.9 % (1.0-4.0); HEMATOCRIT 37.7 % (42.0-52.0); LYMPH # 1.8 10*3/uL (1.3-4.4); LYMPH % 18.6 % (27.0-41.0); MEAN CELL VOLUME 93.3 fl (80.0-94.0); MEAN CORPUSCULAR HGB 29.7 pg (27.0-31.0); MEAN CORPUSCULAR HGB CONC 31.8 g/dl (33.0-37.0); MEAN PLATELET VOLUME 10.2 fl (9.6-12.3); MONO # 0.7 10*3/uL (0.1-1.0); MONO % 6.9 % (3.0-9.0); NEUT # 6.7 10*3/uL (2.3-7.9); NEUT % 69.1 % (47.0-73.0); PLATELET COUNT AUTOMATED 169 10*3/uL (130-400); RED BLOOD COUNT 4.04 10*6/uL (4.50-5.90); RED CELL DISTRI WIDTH 15.5 % (0-14.5); WHITE BLOOD COUNT 9.8 10*3/uL (4.8-10.8)
[2021-10-01 14:22] LABS: ALBUMIN 3.2 gm/dl (3.1-4.5); CREATININE 2.06 mg/dL (0.70-1.30); TOTAL PROTEIN 6.6 gm/dL (6.4-8.2)
[2021-10-01 14:23] LABS: ACT PARTIAL THROMBO TIME 35.3 SECONDS (20.0-32.1); INTERNATIONAL NORM RATIO 1.4 (2.0-3.5)
[2021-10-01 19:12] VITALS: BP 120/72
[2021-10-01 20:37] VITALS: BP 118/71; BP 118/79
[2021-10-02 01:50] VITALS: BP 116/78
[2021-10-02 04:25] VITALS: BP 121/68
[2021-10-02 06:01] LABS: ALBUMIN 2.7 gm/dl (3.1-4.5); CREATININE 1.51 mg/dL (0.70-1.30); POTASSIUM 4.4 mmol/L (3.5-5.1)
[2021-10-02 06:03] LABS: TOTAL PROTEIN 5.8 gm/dL (6.4-8.2)
[2021-10-02 06:13] VITALS: BP 116/76
[2021-10-02 06:22] LABS: BASO % 0.6 % (0.0-1.0); EOS # 0.4 10*3/uL (0.0-0.4); EOS % 6.4 % (1.0-4.0); HEMATOCRIT 35.6 % (42.0-52.0); LYMPH # 1.5 10*3/uL (1.3-4.4); LYMPH % 21.5 % (27.0-41.0); MEAN CELL VOLUME 95.2 fl (80.0-94.0); MEAN CORPUSCULAR HGB 29.1 pg (27.0-31.0); MEAN CORPUSCULAR HGB CONC 30.6 g/dl (33.0-37.0); MEAN PLATELET VOLUME 10.7 fl (9.6-12.3); MONO # 0.6 10*3/uL (0.1-1.0); MONO % 8.6 % (3.0-9.0); NEUT # 4.2 10*3/uL (2.3-7.9); PLATELET COUNT AUTOMATED 145 10*3/uL (130-400); RED BLOOD COUNT 3.74 10*6/uL (4.50-5.90); RED CELL DISTRI WIDTH 15.6 % (0-14.5); WHITE BLOOD COUNT 6.8 10*3/uL (4.8-10.8)
[2021-10-02 06:25] LABS: ACT PARTIAL THROMBO TIME 40.4 SECONDS (20.0-32.1); INTERNATIONAL NORM RATIO 1.4 (2.0-3.5)
[2021-10-02 08:24] VITALS: BP 121/68
== END 2021-10-02 12:31 | disposition left against medical advice (07) ==
LOC: ED 13:37 → EDHOLD 15:31
PROVIDERS: Emergency Medicine; Student in an Organized Health Care Education/Training Program; ADMIT Internal Medicine; ATTEND Internal Medicine
DX: R07.89 Other chest pain (principal); N17.0 Acute kidney failure with tubular necrosis; M10.9 Gout, unspecified; I25.10 Atherosclerotic heart disease of native coronary artery without angina pectoris; K21.9 Gastro-esophageal reflux disease without esophagitis; E11.40 Type 2 diabetes mellitus with diabetic neuropathy, unspecified; I13.0 Hypertensive heart and chronic kidney disease with heart failure and stage 1 through stage 4 chronic kidney disease, or unspecified chronic kidney disease; E11.22 Type 2 diabetes mellitus with diabetic chronic kidney disease; E11.42 Type 2 diabetes mellitus with diabetic polyneuropathy; N18.30 Chronic kidney disease, stage 3 unspecified; E11.65 Type 2 diabetes mellitus with hyperglycemia; N17.9 Acute kidney failure, unspecified; I50.32 Chronic diastolic (congestive) heart failure; E83.42 Hypomagnesemia; I48.91 Unspecified atrial fibrillation; R79.89 Other specified abnormal findings of blood chemistry; D64.9 Anemia, unspecified; D72.810 Lymphocytopenia; R79.82 Elevated C-reactive protein (CRP); N40.0 Benign prostatic hyperplasia without lower urinary tract symptoms; F41.1 Generalized anxiety disorder; F32.9 Major depressive disorder, single episode, unspecified; E78.5 Hyperlipidemia, unspecified; J44.9 Chronic obstructive pulmonary disease, unspecified; R74.8 Abnormal levels of other serum enzymes; Z79.01 Long term (current) use of anticoagulants; Z79.899 Other long term (current) drug therapy; Z86.73 Personal history of transient ischemic attack (TIA), and cerebral infarction without residual deficits

== ENCOUNTER 2021-10-04 14:33 | Emergency (ER) | payer OTHER ==
[2021-10-04 14:45] VITALS: BP 139/56
== END 2021-10-04 18:33 | disposition left against medical advice (07) ==
LOC: ED 14:33
DX: Z53.21 Procedure and treatment not carried out due to patient leaving prior to being seen by health care provider (principal)

== ENCOUNTER 2021-10-05 12:25 | Emergency (ER) | payer OTHER ==
[~2021-10-05] VITALS: Ht 182.8 cm; Wt 111.1 kg
[2021-10-05 12:32] VITALS: BP 152/70
[2021-10-05 13:28] LABS: BUN 29 mg/dl (7-24); CHLORIDE 111 mmol/L (98-107); CREATININE 1.35 mg/dL (0.70-1.30); POTASSIUM 4.4 mmol/L (3.5-5.1); SODIUM 142 mmol/L (136-145)
== END 2021-10-05 15:14 | disposition home or self-care (01) ==
LOC: ED 12:25
PROVIDERS: Emergency Medicine
DX: E83.42 Hypomagnesemia (principal)

== ENCOUNTER → 2021-10-07 | Outpatient (CLI) | payer OTHER | LOC: WOUNDCARE 01:18 | PROVIDERS: ATTEND Nurse Practitioner Family | DX: T81.89XA Other complications of procedures, not elsewhere classified, initial encounter (principal); E11.621 Type 2 diabetes mellitus with foot ulcer; L97.512 Non-pressure chronic ulcer of other part of right foot with fat layer exposed; L84 Corns and callosities; E11.51 Type 2 diabetes mellitus with diabetic peripheral angiopathy without gangrene; E11.22 Type 2 diabetes mellitus with diabetic chronic kidney disease; N18.30 Chronic kidney disease, stage 3 unspecified; E11.40 Type 2 diabetes mellitus with diabetic neuropathy, unspecified; E11.69 Type 2 diabetes mellitus with other specified complication; M86.9 Osteomyelitis, unspecified; E03.9 Hypothyroidism, unspecified; J44.9 Chronic obstructive pulmonary disease, unspecified; Z96.641 Presence of right artificial hip joint; Z89.412 Acquired absence of left great toe; Y83.8 Other surgical procedures as the cause of abnormal reaction of the patient, or of later complication, without mention of misadventure at the time of the procedure; Y92.238 Other place in hospital as the place of occurrence of the external cause ==

== ENCOUNTER 2021-10-12 19:36 | Emergency (ER) | payer OTHER ==
[2021-10-12 20:13] LABS: BASO % 0.4 % (0.0-1.0); EOS # 0.4 10*3/uL (0.0-0.4); EOS % 5.7 % (1.0-4.0); HEMATOCRIT 33.5 % (42.0-52.0); LYMPH # 1.9 10*3/uL (1.3-4.4); LYMPH % 27.4 % (27.0-41.0); MEAN CELL VOLUME 94.4 fl (80.0-94.0); MEAN CORPUSCULAR HGB 29.3 pg (27.0-31.0); MEAN PLATELET VOLUME 10.6 fl (9.6-12.3); MONO # 0.6 10*3/uL (0.1-1.0); MONO % 7.9 % (3.0-9.0); NEUT # 4.1 10*3/uL (2.3-7.9); NEUT % 58.2 % (47.0-73.0); PLATELET COUNT AUTOMATED 191 10*3/uL (130-400); RED BLOOD COUNT 3.55 10*6/uL (4.50-5.90); RED CELL DISTRI WIDTH 15.2 % (0-14.5)
[2021-10-12 20:20] LABS: ALBUMIN 2.6 gm/dl (3.1-4.5); ALKALINE PHOSPHATASE 96 U/L (45-117); BUN 27 mg/dl (7-24); CHLORIDE 108 mmol/L (98-107); CREATININE 1.15 mg/dL (0.70-1.30); LIPASE 207 U/L (73-393); POTASSIUM 3.9 mmol/L (3.5-5.1); SGOT/AST 19 IU/L (3-35); SGPT/ALT 21 U/L (12-78); SODIUM 137 mmol/L (136-145); TOTAL PROTEIN 5.8 gm/dL (6.4-8.2)
[2021-10-13 05:56] VITALS: BP 119/64
== END 2021-10-13 07:10 | disposition home or self-care (01) ==
LOC: ED 19:36
PROVIDERS: Emergency Medicine
DX: S50.11XA Contusion of right forearm, initial encounter (principal); E83.42 Hypomagnesemia; I25.10 Atherosclerotic heart disease of native coronary artery without angina pectoris; J44.9 Chronic obstructive pulmonary disease, unspecified; I13.0 Hypertensive heart and chronic kidney disease with heart failure and stage 1 through stage 4 chronic kidney disease, or unspecified chronic kidney disease; E11.22 Type 2 diabetes mellitus with diabetic chronic kidney disease; N18.30 Chronic kidney disease, stage 3 unspecified; K21.9 Gastro-esophageal reflux disease without esophagitis; E78.5 Hyperlipidemia, unspecified; M19.90 Unspecified osteoarthritis, unspecified site; Z88.0 Allergy status to penicillin; Z88.1 Allergy status to other antibiotic agents; Z79.899 Other long term (current) drug therapy; Z79.82 Long term (current) use of aspirin; Z87.891 Personal history of nicotine dependence; V89.2XXA Person injured in unspecified motor-vehicle accident, traffic, initial encounter; Y93.89 Activity, other specified; Y92.89 Other specified places as the place of occurrence of the external cause; Y99.8 Other external cause status

== ENCOUNTER → 2021-10-16 | Outpatient (CLI) | payer OTHER | LOC: WOUNDCARE 01:07 | PROVIDERS: ATTEND Nurse Practitioner Family | DX: T81.89XD Other complications of procedures, not elsewhere classified, subsequent encounter (principal); E11.621 Type 2 diabetes mellitus with foot ulcer; L97.512 Non-pressure chronic ulcer of other part of right foot with fat layer exposed; L84 Corns and callosities; E11.51 Type 2 diabetes mellitus with diabetic peripheral angiopathy without gangrene; E11.22 Type 2 diabetes mellitus with diabetic chronic kidney disease; N18.30 Chronic kidney disease, stage 3 unspecified; E11.40 Type 2 diabetes mellitus with diabetic neuropathy, unspecified; E11.69 Type 2 diabetes mellitus with other specified complication; M86.9 Osteomyelitis, unspecified; E03.9 Hypothyroidism, unspecified; J44.9 Chronic obstructive pulmonary disease, unspecified; Z96.641 Presence of right artificial hip joint; Z89.412 Acquired absence of left great toe; Y83.8 Other surgical procedures as the cause of abnormal reaction of the patient, or of later complication, without mention of misadventure at the time of the procedure ==

== ENCOUNTER → 2021-10-25 | Outpatient (CLI) | payer OTHER | LOC: WOUNDCARE 10:30 | PROVIDERS: ATTEND Nurse Practitioner Family | DX: T86.828 Other complications of skin graft (allograft) (autograft) (principal); E11.621 Type 2 diabetes mellitus with foot ulcer; L97.512 Non-pressure chronic ulcer of other part of right foot with fat layer exposed; L84 Corns and callosities; E11.51 Type 2 diabetes mellitus with diabetic peripheral angiopathy without gangrene; N18.30 Chronic kidney disease, stage 3 unspecified; E11.69 Type 2 diabetes mellitus with other specified complication; M86.9 Osteomyelitis, unspecified; E03.9 Hypothyroidism, unspecified; J44.9 Chronic obstructive pulmonary disease, unspecified; Z96.641 Presence of right artificial hip joint; Z89.421 Acquired absence of other right toe(s); Y83.2 Surgical operation with anastomosis, bypass or graft as the cause of abnormal reaction of the patient, or of later complication, without mention of misadventure at the time of the procedure; Y92.238 Other place in hospital as the place of occurrence of the external cause ==

== ENCOUNTER 2021-10-27 02:57 | Emergency (ER) | payer OTHER ==
[~2021-10-27] VITALS: Ht 182.8 cm
[2021-10-27 03:06] VITALS: BP 124/74
[2021-10-27 03:15] LABS: BASO % 0.3 % (0.0-1.0); EOS # 0.4 10*3/uL (0.0-0.4); EOS % 5.2 % (1.0-4.0); HEMATOCRIT 36.2 % (42.0-52.0); LYMPH # 1.6 10*3/uL (1.3-4.4); LYMPH % 22.6 % (27.0-41.0); MEAN CELL VOLUME 92.8 fl (80.0-94.0); MEAN CORPUSCULAR HGB 28.5 pg (27.0-31.0); MEAN CORPUSCULAR HGB CONC 30.7 g/dl (33.0-37.0); MEAN PLATELET VOLUME 11.7 fl (9.6-12.3); MONO # 0.6 10*3/uL (0.1-1.0); NEUT # 4.3 10*3/uL (2.3-7.9); NEUT % 62.3 % (47.0-73.0); PLATELET COUNT AUTOMATED 183 10*3/uL (130-400); RED CELL DISTRI WIDTH 14.4 % (0-14.5); WHITE BLOOD COUNT 6.9 10*3/uL (4.8-10.8)
[2021-10-27 03:31] LABS: ALBUMIN 3.1 gm/dl (3.1-4.5); CREATININE 1.67 mg/dL (0.70-1.30); TOTAL PROTEIN 6.4 gm/dL (6.4-8.2)
[2021-10-27 03:40] LABS: ACT PARTIAL THROMBO TIME 29.9 SECONDS (20.0-32.1); INTERNATIONAL NORM RATIO 1.1 (2.0-3.5)
== END 2021-10-27 06:26 | disposition home or self-care (01) ==
LOC: ED 02:57
PROVIDERS: Internal Medicine
DX: R07.9 Chest pain, unspecified (principal); N17.9 Acute kidney failure, unspecified; D64.9 Anemia, unspecified

== ENCOUNTER → 2021-10-31 | Outpatient (CLI) | payer OTHER | LOC: WOUNDCARE 00:44 | PROVIDERS: ATTEND Nurse Practitioner Family | DX: T86.828 Other complications of skin graft (allograft) (autograft) (principal); E11.621 Type 2 diabetes mellitus with foot ulcer; L97.512 Non-pressure chronic ulcer of other part of right foot with fat layer exposed; L84 Corns and callosities; E11.51 Type 2 diabetes mellitus with diabetic peripheral angiopathy without gangrene; N18.30 Chronic kidney disease, stage 3 unspecified; E11.69 Type 2 diabetes mellitus with other specified complication; M86.9 Osteomyelitis, unspecified; E03.9 Hypothyroidism, unspecified; J44.9 Chronic obstructive pulmonary disease, unspecified; Z96.641 Presence of right artificial hip joint; Z89.421 Acquired absence of other right toe(s); Y83.2 Surgical operation with anastomosis, bypass or graft as the cause of abnormal reaction of the patient, or of later complication, without mention of misadventure at the time of the procedure ==

== ENCOUNTER 2021-11-01 09:57 | Emergency (ER) | payer OTHER ==
[~2021-11-01] VITALS: Ht 180.3 cm; Wt 113.4 kg
[2021-11-01 10:22] LABS: BASO % 0.5 % (0.0-1.0); EOS # 0.4 10*3/uL (0.0-0.4); EOS % 4.9 % (1.0-4.0); HEMATOCRIT 36.8 % (42.0-52.0); LYMPH # 1.8 10*3/uL (1.3-4.4); LYMPH % 23.3 % (27.0-41.0); MEAN CELL VOLUME 91.1 fl (80.0-94.0); MEAN CORPUSCULAR HGB 28.5 pg (27.0-31.0); MEAN CORPUSCULAR HGB CONC 31.3 g/dl (33.0-37.0); MEAN PLATELET VOLUME 11.2 fl (9.6-12.3); MONO # 0.7 10*3/uL (0.1-1.0); NEUT # 4.8 10*3/uL (2.3-7.9); NEUT % 61.3 % (47.0-73.0); PLATELET COUNT AUTOMATED 194 10*3/uL (130-400); RED BLOOD COUNT 4.04 10*6/uL (4.50-5.90); RED CELL DISTRI WIDTH 14.2 % (0-14.5); WHITE BLOOD COUNT 7.8 10*3/uL (4.8-10.8)
[2021-11-01 10:36] LABS: ALBUMIN 2.9 gm/dl (3.1-4.5); ALKALINE PHOSPHATASE 109 U/L (45-117); BUN 28 mg/dl (7-24); CHLORIDE 103 mmol/L (98-107); CREATININE 1.25 mg/dL (0.70-1.30); POTASSIUM 4.2 mmol/L (3.5-5.1); SGOT/AST 16 IU/L (3-35); SGPT/ALT 28 U/L (12-78); SODIUM 137 mmol/L (136-145); TOTAL PROTEIN 6.3 gm/dL (6.4-8.2)
[2021-11-01 10:38] LABS: ACT PARTIAL THROMBO TIME 31.5 SECONDS (20.0-32.1); INTERNATIONAL NORM RATIO 1.3 (2.0-3.5)
[2021-11-01 11:21] VITALS: BP 132/88
== END 2021-11-01 16:21 | disposition home or self-care (01) ==
LOC: ED 09:57
PROVIDERS: Emergency Medicine
DX: H57.02 Anisocoria (principal); R07.9 Chest pain, unspecified

== ENCOUNTER → 2021-11-07 | Outpatient (CLI) | payer OTHER | LOC: WOUNDCARE 01:04 | PROVIDERS: ATTEND Nurse Practitioner Family | DX: T86.828 Other complications of skin graft (allograft) (autograft) (principal); E11.621 Type 2 diabetes mellitus with foot ulcer; L97.512 Non-pressure chronic ulcer of other part of right foot with fat layer exposed; L84 Corns and callosities; E11.51 Type 2 diabetes mellitus with diabetic peripheral angiopathy without gangrene; N18.30 Chronic kidney disease, stage 3 unspecified; E11.69 Type 2 diabetes mellitus with other specified complication; M86.9 Osteomyelitis, unspecified; E03.9 Hypothyroidism, unspecified; J44.9 Chronic obstructive pulmonary disease, unspecified; Z96.641 Presence of right artificial hip joint; Z89.421 Acquired absence of other right toe(s); Y83.2 Surgical operation with anastomosis, bypass or graft as the cause of abnormal reaction of the patient, or of later complication, without mention of misadventure at the time of the procedure ==

== ENCOUNTER → 2021-11-13 | Outpatient (CLI) | payer OTHER | LOC: WOUNDCARE 00:48 | PROVIDERS: ATTEND Nurse Practitioner Family | DX: T86.828 Other complications of skin graft (allograft) (autograft) (principal); E11.621 Type 2 diabetes mellitus with foot ulcer; L97.512 Non-pressure chronic ulcer of other part of right foot with fat layer exposed; L84 Corns and callosities; E11.51 Type 2 diabetes mellitus with diabetic peripheral angiopathy without gangrene; N18.30 Chronic kidney disease, stage 3 unspecified; E11.69 Type 2 diabetes mellitus with other specified complication; M86.9 Osteomyelitis, unspecified; E03.9 Hypothyroidism, unspecified; J44.9 Chronic obstructive pulmonary disease, unspecified; Z96.641 Presence of right artificial hip joint; Z89.421 Acquired absence of other right toe(s); Y83.2 Surgical operation with anastomosis, bypass or graft as the cause of abnormal reaction of the patient, or of later complication, without mention of misadventure at the time of the procedure ==

== ENCOUNTER 2021-11-21 10:30 | Emergency (ER) | payer OTHER ==
[~2021-11-21] VITALS: Wt 115.2 kg
[2021-11-21 10:54] VITALS: BP 163/92
== END 2021-11-21 12:19 | disposition left against medical advice (07) ==
LOC: ED 10:30
DX: R06.2 Wheezing (principal); Z53.21 Procedure and treatment not carried out due to patient leaving prior to being seen by health care provider

== ENCOUNTER 2021-11-23 15:26 | Emergency (ER) | payer OTHER ==
[~2021-11-23] VITALS: Ht 182.8 cm; Wt 117.9 kg
[2021-11-23 15:31] VITALS: BP 149/68
[2021-11-23 15:54] LABS: BASO % 0.4 % (0.0-1.0); EOS # 0.2 10*3/uL (0.0-0.4); EOS % 3.9 % (1.0-4.0); HEMATOCRIT 35.4 % (42.0-52.0); LYMPH # 1.2 10*3/uL (1.3-4.4); LYMPH % 21.3 % (27.0-41.0); MEAN CELL VOLUME 90.3 fl (80.0-94.0); MEAN CORPUSCULAR HGB 28.1 pg (27.0-31.0); MEAN CORPUSCULAR HGB CONC 31.1 g/dl (33.0-37.0); MEAN PLATELET VOLUME 11.5 fl (9.6-12.3); MONO # 0.5 10*3/uL (0.1-1.0); MONO % 8.5 % (3.0-9.0); NEUT # 3.7 10*3/uL (2.3-7.9); NEUT % 65.4 % (47.0-73.0); PLATELET COUNT AUTOMATED 165 10*3/uL (130-400); RED BLOOD COUNT 3.92 10*6/uL (4.50-5.90); RED CELL DISTRI WIDTH 15.1 % (0-14.5); WHITE BLOOD COUNT 5.7 10*3/uL (4.8-10.8)
[2021-11-23 16:09] LABS: ALBUMIN 3.1 gm/dl (3.1-4.5); CREATININE 1.58 mg/dL (0.70-1.30); POTASSIUM 4.3 mmol/L (3.5-5.1); TOTAL PROTEIN 6.2 gm/dL (6.4-8.2)
[2021-11-23] MEDS ORDERED: Ipratropium Brom3 ML INH (17:58)
[2021-11-23] MEDS ORDERED: PREDNISONE50 MG PO (17:58)
[2021-11-23] MEDS ORDERED: LEVOFLOXACIN500 MG PO (17:58)
[2021-11-23] MEDS ORDERED: AEROECLIPSE II1 EACH MC (17:58)
== END 2021-11-23 18:48 | disposition home or self-care (01) ==
LOC: ED 15:26
PROVIDERS: Student in an Organized Health Care Education/Training Program
DX: J44.1 Chronic obstructive pulmonary disease with (acute) exacerbation (principal); E11.9 Type 2 diabetes mellitus without complications; I25.2 Old myocardial infarction; I10 Essential (primary) hypertension; M10.9 Gout, unspecified; M86.9 Osteomyelitis, unspecified; I25.10 Atherosclerotic heart disease of native coronary artery without angina pectoris; Z88.0 Allergy status to penicillin; Z88.1 Allergy status to other antibiotic agents; Z79.899 Other long term (current) drug therapy; Z79.82 Long term (current) use of aspirin; Z79.4 Long term (current) use of insulin; Z87.891 Personal history of nicotine dependence; Z86.73 Personal history of transient ischemic attack (TIA), and cerebral infarction without residual deficits

== ENCOUNTER → 2021-11-28 | Outpatient (CLI) | payer OTHER ==
[~2021-11-28] MED LIST changes: +AEROECLIPSE II1 EACH MC; +Ipratropium Brom3 ML INH
== END ==
LOC: WOUNDCARE 00:51
PROVIDERS: ATTEND Nurse Practitioner Family
DX: E11.621 Type 2 diabetes mellitus with foot ulcer (principal); L97.512 Non-pressure chronic ulcer of other part of right foot with fat layer exposed; L84 Corns and callosities; E11.51 Type 2 diabetes mellitus with diabetic peripheral angiopathy without gangrene; E11.69 Type 2 diabetes mellitus with other specified complication; N18.30 Chronic kidney disease, stage 3 unspecified; M86.9 Osteomyelitis, unspecified; E03.9 Hypothyroidism, unspecified; J44.9 Chronic obstructive pulmonary disease, unspecified; Z96.641 Presence of right artificial hip joint; Z89.421 Acquired absence of other right toe(s); Y83.2 Surgical operation with anastomosis, bypass or graft as the cause of abnormal reaction of the patient, or of later complication, without mention of misadventure at the time of the procedure

== ENCOUNTER 2021-12-01 14:10 | Emergency (ER) | payer OTHER ==
[~2021-12-01] VITALS: Ht 182.8 cm; Wt 112.0 kg
[2021-12-01 14:10] VITALS: BP 104/60
[2021-12-01 14:41] LABS: BASO % 0.1 % (0.0-1.0); EOS # 0.4 10*3/uL (0.0-0.4); EOS % 2.8 % (1.0-4.0); HEMATOCRIT 40.7 % (42.0-52.0); LYMPH # 2.2 10*3/uL (1.3-4.4); LYMPH % 16.6 % (27.0-41.0); MEAN CELL VOLUME 87.5 fl (80.0-94.0); MEAN CORPUSCULAR HGB 27.5 pg (27.0-31.0); MEAN CORPUSCULAR HGB CONC 31.4 g/dl (33.0-37.0); MEAN PLATELET VOLUME 10.9 fl (9.6-12.3); MONO # 0.9 10*3/uL (0.1-1.0); MONO % 7.1 % (3.0-9.0); NEUT # 9.6 10*3/uL (2.3-7.9); NEUT % 72.1 % (47.0-73.0); PLATELET COUNT AUTOMATED 248 10*3/uL (130-400); RED BLOOD COUNT 4.65 10*6/uL (4.50-5.90); WHITE BLOOD COUNT 13.2 10*3/uL (4.8-10.8)
[2021-12-01 14:51] LABS: ACT PARTIAL THROMBO TIME 29.7 SECONDS (20.0-32.1); INTERNATIONAL NORM RATIO 1.4 (2.0-3.5)
[2021-12-01 14:56] LABS: CREATININE 1.77 mg/dL (0.70-1.30); POTASSIUM 4.1 mmol/L (3.5-5.1); TOTAL PROTEIN 5.8 gm/dL (6.4-8.2)
== END 2021-12-01 17:00 | disposition home or self-care (01) ==
LOC: ED 14:10
PROVIDERS: Emergency Medicine
DX: I48.91 Unspecified atrial fibrillation (principal); I25.10 Atherosclerotic heart disease of native coronary artery without angina pectoris; J44.9 Chronic obstructive pulmonary disease, unspecified; K21.9 Gastro-esophageal reflux disease without esophagitis; E78.5 Hyperlipidemia, unspecified; M10.9 Gout, unspecified; I12.9 Hypertensive chronic kidney disease with stage 1 through stage 4 chronic kidney disease, or unspecified chronic kidney disease; E11.22 Type 2 diabetes mellitus with diabetic chronic kidney disease; N18.30 Chronic kidney disease, stage 3 unspecified; Z88.1 Allergy status to other antibiotic agents; Z88.0 Allergy status to penicillin; Z79.899 Other long term (current) drug therapy; Z79.82 Long term (current) use of aspirin; Z86.73 Personal history of transient ischemic attack (TIA), and cerebral infarction without residual deficits; Z98.890 Other specified postprocedural states; Z90.49 Acquired absence of other specified parts of digestive tract; Z87.891 Personal history of nicotine dependence

== ENCOUNTER 2021-12-05 11:36 | Emergency (ER) | payer OTHER ==
[2021-12-05 11:55] VITALS: BP 127/74
[2021-12-05 12:02] LABS: BASO % 0.2 % (0.0-1.0); EOS # 0.2 10*3/uL (0.0-0.4); EOS % 2.3 % (1.0-4.0); LYMPH # 1.1 10*3/uL (1.3-4.4); MEAN CELL VOLUME 89.6 fl (80.0-94.0); MEAN CORPUSCULAR HGB 27.8 pg (27.0-31.0); MEAN CORPUSCULAR HGB CONC 31.1 g/dl (33.0-37.0); MONO # 0.8 10*3/uL (0.1-1.0); MONO % 7.7 % (3.0-9.0); NEUT # 7.9 10*3/uL (2.3-7.9); NEUT % 78.1 % (47.0-73.0); PLATELET COUNT AUTOMATED 179 10*3/uL (130-400); RED BLOOD COUNT 4.13 10*6/uL (4.50-5.90); RED CELL DISTRI WIDTH 14.9 % (0-14.5); WHITE BLOOD COUNT 10.2 10*3/uL (4.8-10.8)
[2021-12-05 12:13] LABS: ACT PARTIAL THROMBO TIME 34.7 SECONDS (20.0-32.1); INTERNATIONAL NORM RATIO 1.5 (2.0-3.5)
[2021-12-05 12:18] LABS: ALBUMIN 2.8 gm/dl (3.1-4.5); ALKALINE PHOSPHATASE 117 U/L (45-117); BUN 27 mg/dl (7-24); CHLORIDE 107 mmol/L (98-107); CREATININE 1.38 mg/dL (0.70-1.30); LIPASE 174 U/L (73-393); POTASSIUM 4.6 mmol/L (3.5-5.1); SGOT/AST 22 IU/L (3-35); SGPT/ALT 34 U/L (12-78); SODIUM 139 mmol/L (136-145)
== END 2021-12-05 15:15 | disposition left against medical advice (07) ==
LOC: ED 11:36
PROVIDERS: Emergency Medicine
DX: R07.9 Chest pain, unspecified (principal); Z53.21 Procedure and treatment not carried out due to patient leaving prior to being seen by health care provider

== ENCOUNTER → 2021-12-05 | Outpatient (CLI) | payer OTHER | LOC: WOUNDCARE 01:18 | PROVIDERS: ATTEND Nurse Practitioner Family | DX: T86.828 Other complications of skin graft (allograft) (autograft) (principal); E11.621 Type 2 diabetes mellitus with foot ulcer; L97.512 Non-pressure chronic ulcer of other part of right foot with fat layer exposed; L84 Corns and callosities; E11.51 Type 2 diabetes mellitus with diabetic peripheral angiopathy without gangrene; E11.69 Type 2 diabetes mellitus with other specified complication; N18.30 Chronic kidney disease, stage 3 unspecified; M86.9 Osteomyelitis, unspecified; E03.9 Hypothyroidism, unspecified; J44.9 Chronic obstructive pulmonary disease, unspecified; Z96.641 Presence of right artificial hip joint; Z89.421 Acquired absence of other right toe(s); Y83.2 Surgical operation with anastomosis, bypass or graft as the cause of abnormal reaction of the patient, or of later complication, without mention of misadventure at the time of the procedure ==

== ENCOUNTER → 2021-12-11 | Outpatient (CLI) | payer OTHER | LOC: WOUNDCARE 00:57 | PROVIDERS: ATTEND Nurse Practitioner Family | DX: T86.828 Other complications of skin graft (allograft) (autograft) (principal); E11.621 Type 2 diabetes mellitus with foot ulcer; L97.512 Non-pressure chronic ulcer of other part of right foot with fat layer exposed; L84 Corns and callosities; S40.821D Blister (nonthermal) of right upper arm, subsequent encounter; E11.51 Type 2 diabetes mellitus with diabetic peripheral angiopathy without gangrene; E11.69 Type 2 diabetes mellitus with other specified complication; N18.30 Chronic kidney disease, stage 3 unspecified; M86.9 Osteomyelitis, unspecified; E03.9 Hypothyroidism, unspecified; J44.9 Chronic obstructive pulmonary disease, unspecified; Z96.641 Presence of right artificial hip joint; Z89.421 Acquired absence of other right toe(s); X58.XXXD Exposure to other specified factors, subsequent encounter; Y83.2 Surgical operation with anastomosis, bypass or graft as the cause of abnormal reaction of the patient, or of later complication, without mention of misadventure at the time of the procedure ==

== ENCOUNTER 2021-12-19 10:18 | Emergency (ER) | payer OTHER ==
[~2021-12-19] VITALS: Wt 111.1 kg
[2021-12-19 10:25] VITALS: BP 140/86
[2021-12-19 10:50] LABS: BASO % 0.5 % (0.0-1.0); EOS # 0.3 10*3/uL (0.0-0.4); EOS % 5.1 % (1.0-4.0); HEMATOCRIT 36.7 % (42.0-52.0); LYMPH # 1.6 10*3/uL (1.3-4.4); LYMPH % 27.1 % (27.0-41.0); MEAN CELL VOLUME 88.2 fl (80.0-94.0); MEAN CORPUSCULAR HGB 28.1 pg (27.0-31.0); MEAN CORPUSCULAR HGB CONC 31.9 g/dl (33.0-37.0); MEAN PLATELET VOLUME 11.2 fl (9.6-12.3); MONO # 0.4 10*3/uL (0.1-1.0); MONO % 6.6 % (3.0-9.0); NEUT # 3.6 10*3/uL (2.3-7.9); NEUT % 60.4 % (47.0-73.0); PLATELET COUNT AUTOMATED 172 10*3/uL (130-400); RED BLOOD COUNT 4.16 10*6/uL (4.50-5.90); RED CELL DISTRI WIDTH 16.3 % (0-14.5)
[2021-12-19 11:00] LABS: ACT PARTIAL THROMBO TIME 31.9 SECONDS (20.0-32.1); INTERNATIONAL NORM RATIO 1.2 (2.0-3.5)
[2021-12-19 11:15] LABS: ALBUMIN 2.7 gm/dl (3.1-4.5); CREATININE 1.69 mg/dL (0.70-1.30); POTASSIUM 3.7 mmol/L (3.5-5.1)
== END 2021-12-19 13:50 | disposition home or self-care (01) ==
LOC: ED 10:18
PROVIDERS: Emergency Medicine
DX: J44.1 Chronic obstructive pulmonary disease with (acute) exacerbation (principal); Z88.1 Allergy status to other antibiotic agents; Z88.0 Allergy status to penicillin; Z79.899 Other long term (current) drug therapy; Z79.82 Long term (current) use of aspirin; Z98.890 Other specified postprocedural states; Z87.891 Personal history of nicotine dependence

== ENCOUNTER → 2021-12-19 | Outpatient (CLI) | payer OTHER | LOC: WOUNDCARE 01:42 | PROVIDERS: ATTEND Nurse Practitioner Family | DX: E11.621 Type 2 diabetes mellitus with foot ulcer (principal); L97.512 Non-pressure chronic ulcer of other part of right foot with fat layer exposed; L84 Corns and callosities; S40.821D Blister (nonthermal) of right upper arm, subsequent encounter; E11.51 Type 2 diabetes mellitus with diabetic peripheral angiopathy without gangrene; E11.69 Type 2 diabetes mellitus with other specified complication; N18.30 Chronic kidney disease, stage 3 unspecified; E03.9 Hypothyroidism, unspecified; J44.9 Chronic obstructive pulmonary disease, unspecified; Z96.641 Presence of right artificial hip joint; Z89.421 Acquired absence of other right toe(s); X58.XXXD Exposure to other specified factors, subsequent encounter ==

== ENCOUNTER → 2021-12-23 | Outpatient (CLI) | payer OTHER | LOC: WOUNDCARE 01:41 | PROVIDERS: ATTEND Nurse Practitioner Family | DX: E11.621 Type 2 diabetes mellitus with foot ulcer (principal); L97.512 Non-pressure chronic ulcer of other part of right foot with fat layer exposed; L84 Corns and callosities; S40.821D Blister (nonthermal) of right upper arm, subsequent encounter; E11.51 Type 2 diabetes mellitus with diabetic peripheral angiopathy without gangrene; E11.69 Type 2 diabetes mellitus with other specified complication; M86.9 Osteomyelitis, unspecified; E11.22 Type 2 diabetes mellitus with diabetic chronic kidney disease; I12.9 Hypertensive chronic kidney disease with stage 1 through stage 4 chronic kidney disease, or unspecified chronic kidney disease; N18.30 Chronic kidney disease, stage 3 unspecified; E03.9 Hypothyroidism, unspecified; E78.5 Hyperlipidemia, unspecified; J44.9 Chronic obstructive pulmonary disease, unspecified; Z96.641 Presence of right artificial hip joint; Z89.421 Acquired absence of other right toe(s); X58.XXXD Exposure to other specified factors, subsequent encounter ==

== ENCOUNTER → 2021-12-27 | Outpatient (CLI) | payer OTHER ==
[~2021-12-27] MED LIST changes: +Kenalog 0.5% Oi15 GM T; +QUALITY CHOICE A2 MG PO
== END ==
LOC: WOUNDCARE 01:02
PROVIDERS: ATTEND Nurse Practitioner Family
DX: E11.621 Type 2 diabetes mellitus with foot ulcer (principal); L97.512 Non-pressure chronic ulcer of other part of right foot with fat layer exposed; L84 Corns and callosities; S40.821D Blister (nonthermal) of right upper arm, subsequent encounter; E11.51 Type 2 diabetes mellitus with diabetic peripheral angiopathy without gangrene; E11.69 Type 2 diabetes mellitus with other specified complication; M86.9 Osteomyelitis, unspecified; E11.22 Type 2 diabetes mellitus with diabetic chronic kidney disease; I12.9 Hypertensive chronic kidney disease with stage 1 through stage 4 chronic kidney disease, or unspecified chronic kidney disease; N18.30 Chronic kidney disease, stage 3 unspecified; E03.9 Hypothyroidism, unspecified; E78.5 Hyperlipidemia, unspecified; J44.9 Chronic obstructive pulmonary disease, unspecified; Z96.641 Presence of right artificial hip joint; Z89.421 Acquired absence of other right toe(s); X58.XXXD Exposure to other specified factors, subsequent encounter

== ENCOUNTER 2021-12-28 08:41 | Emergency (ER) | payer OTHER ==
[~2021-12-28] VITALS: Ht 182.8 cm; Wt 113.9 kg
[~2021-12-28 08:41] MED LIST changes: -Kenalog 0.5% Oi15 GM T; -QUALITY CHOICE A2 MG PO
[2021-12-28 08:48] VITALS: BP 138/74
[2021-12-28] MEDS ORDERED: Kenalog 0.5% Oi15 GM T (09:15)
[2021-12-28] MEDS ORDERED: QUALITY CHOICE A2 MG PO (09:15)
[2021-12-28 09:26] LABS: BASO % 0.2 % (0.0-1.0); EOS # 0.2 10*3/uL (0.0-0.4); EOS % 4.5 % (1.0-4.0); HEMATOCRIT 36.8 % (42.0-52.0); LYMPH # 1.2 10*3/uL (1.3-4.4); LYMPH % 23.3 % (27.0-41.0); MEAN CELL VOLUME 88.2 fl (80.0-94.0); MEAN CORPUSCULAR HGB 27.3 pg (27.0-31.0); MEAN PLATELET VOLUME 10.8 fl (9.6-12.3); MONO # 0.3 10*3/uL (0.1-1.0); MONO % 5.3 % (3.0-9.0); NEUT # 3.4 10*3/uL (2.3-7.9); NEUT % 66.3 % (47.0-73.0); PLATELET COUNT AUTOMATED 103 10*3/uL (130-400); RED BLOOD COUNT 4.17 10*6/uL (4.50-5.90); RED CELL DISTRI WIDTH 16.3 % (0-14.5); WHITE BLOOD COUNT 5.1 10*3/uL (4.8-10.8)
[2021-12-28 09:38] LABS: CREATININE 1.59 mg/dL (0.70-1.30); TOTAL PROTEIN 6.2 gm/dL (6.4-8.2)
== END 2021-12-28 10:04 | disposition home or self-care (01) ==
LOC: ED 08:41
PROVIDERS: Emergency Medicine
DX: R19.7 Diarrhea, unspecified (principal); L25.9 Unspecified contact dermatitis, unspecified cause; Z88.0 Allergy status to penicillin; Z88.1 Allergy status to other antibiotic agents; Z79.899 Other long term (current) drug therapy; Z79.82 Long term (current) use of aspirin; Z98.890 Other specified postprocedural states; Z90.49 Acquired absence of other specified parts of digestive tract; Z87.891 Personal history of nicotine dependence

== ENCOUNTER → 2021-12-30 | Day surgery (SDC) | payer OTHER ==
[2021-12-30] VITALS (7 sets, daily range): BP systolic 113–162; BP diastolic 63–84
[~2021-12-30] VITALS: Ht 182.8 cm; Wt 116.1 kg
[~2021-12-30] MED LIST changes: +Kenalog 0.5% Oi15 GM T; +QUALITY CHOICE A2 MG PO
[2021-12-31 14:08] LABS: ACID FAST SPEC PROCESSING Concentration (.)
== END | disposition home or self-care (01) ==
LOC: SDC 12-27 08:00
PROVIDERS: ATTEND Internal Medicine Critical Care Medicine
DX: J40 Bronchitis, not specified as acute or chronic (principal); I25.10 Atherosclerotic heart disease of native coronary artery without angina pectoris; J44.9 Chronic obstructive pulmonary disease, unspecified; I25.2 Old myocardial infarction; M10.9 Gout, unspecified; I12.9 Hypertensive chronic kidney disease with stage 1 through stage 4 chronic kidney disease, or unspecified chronic kidney disease; N18.30 Chronic kidney disease, stage 3 unspecified; E10.22 Type 1 diabetes mellitus with diabetic chronic kidney disease; Z86.73 Personal history of transient ischemic attack (TIA), and cerebral infarction without residual deficits; M86.9 Osteomyelitis, unspecified; F41.9 Anxiety disorder, unspecified; Z88.0 Allergy status to penicillin; K21.9 Gastro-esophageal reflux disease without esophagitis; Z79.899 Other long term (current) drug therapy

== ENCOUNTER → 2022-01-01 | Outpatient (CLI) | payer OTHER | LOC: WOUNDCARE 00:49 | PROVIDERS: ATTEND Nurse Practitioner Family | DX: E11.621 Type 2 diabetes mellitus with foot ulcer (principal); L97.512 Non-pressure chronic ulcer of other part of right foot with fat layer exposed; L84 Corns and callosities; E11.51 Type 2 diabetes mellitus with diabetic peripheral angiopathy without gangrene; E11.69 Type 2 diabetes mellitus with other specified complication; M86.9 Osteomyelitis, unspecified; E11.22 Type 2 diabetes mellitus with diabetic chronic kidney disease; I12.9 Hypertensive chronic kidney disease with stage 1 through stage 4 chronic kidney disease, or unspecified chronic kidney disease; N18.30 Chronic kidney disease, stage 3 unspecified; E03.9 Hypothyroidism, unspecified; E78.5 Hyperlipidemia, unspecified; J44.9 Chronic obstructive pulmonary disease, unspecified; Z96.641 Presence of right artificial hip joint; Z89.421 Acquired absence of other right toe(s) ==

== ENCOUNTER → 2022-01-08 | Outpatient (CLI) | payer MEDICARE, OTHER | LOC: WOUNDCARE 01:54 | PROVIDERS: ATTEND Nurse Practitioner Family | DX: T86.828 Other complications of skin graft (allograft) (autograft) (principal); E11.621 Type 2 diabetes mellitus with foot ulcer; L97.512 Non-pressure chronic ulcer of other part of right foot with fat layer exposed; L84 Corns and callosities; E11.51 Type 2 diabetes mellitus with diabetic peripheral angiopathy without gangrene; E11.69 Type 2 diabetes mellitus with other specified complication; M86.9 Osteomyelitis, unspecified; E11.22 Type 2 diabetes mellitus with diabetic chronic kidney disease; I12.9 Hypertensive chronic kidney disease with stage 1 through stage 4 chronic kidney disease, or unspecified chronic kidney disease; N18.30 Chronic kidney disease, stage 3 unspecified; E03.9 Hypothyroidism, unspecified; E78.5 Hyperlipidemia, unspecified; J44.9 Chronic obstructive pulmonary disease, unspecified; Z96.641 Presence of right artificial hip joint; Z89.421 Acquired absence of other right toe(s); Y83.2 Surgical operation with anastomosis, bypass or graft as the cause of abnormal reaction of the patient, or of later complication, without mention of misadventure at the time of the procedure ==

== ENCOUNTER → 2022-01-15 | Outpatient (CLI) | payer MEDICARE, OTHER | LOC: WOUNDCARE 00:37 | PROVIDERS: ATTEND Nurse Practitioner Family | DX: T86.828 Other complications of skin graft (allograft) (autograft) (principal); E11.621 Type 2 diabetes mellitus with foot ulcer; L97.512 Non-pressure chronic ulcer of other part of right foot with fat layer exposed; L84 Corns and callosities; E11.51 Type 2 diabetes mellitus with diabetic peripheral angiopathy without gangrene; E11.69 Type 2 diabetes mellitus with other specified complication; M86.9 Osteomyelitis, unspecified; E11.22 Type 2 diabetes mellitus with diabetic chronic kidney disease; I12.9 Hypertensive chronic kidney disease with stage 1 through stage 4 chronic kidney disease, or unspecified chronic kidney disease; N18.30 Chronic kidney disease, stage 3 unspecified; E03.9 Hypothyroidism, unspecified; E78.5 Hyperlipidemia, unspecified; J44.9 Chronic obstructive pulmonary disease, unspecified; Z96.641 Presence of right artificial hip joint; Z89.421 Acquired absence of other right toe(s); Y83.2 Surgical operation with anastomosis, bypass or graft as the cause of abnormal reaction of the patient, or of later complication, without mention of misadventure at the time of the procedure ==

== ENCOUNTER → 2022-01-23 | Outpatient (CLI) | payer MEDICARE, OTHER | LOC: WOUNDCARE 01:01 | PROVIDERS: ATTEND Nurse Practitioner Family | DX: E11.621 Type 2 diabetes mellitus with foot ulcer (principal); L97.512 Non-pressure chronic ulcer of other part of right foot with fat layer exposed; E11.622 Type 2 diabetes mellitus with other skin ulcer; L97.811 Non-pressure chronic ulcer of other part of right lower leg limited to breakdown of skin; L84 Corns and callosities; E11.51 Type 2 diabetes mellitus with diabetic peripheral angiopathy without gangrene; E11.69 Type 2 diabetes mellitus with other specified complication; M86.9 Osteomyelitis, unspecified; E11.22 Type 2 diabetes mellitus with diabetic chronic kidney disease; I12.9 Hypertensive chronic kidney disease with stage 1 through stage 4 chronic kidney disease, or unspecified chronic kidney disease; N18.30 Chronic kidney disease, stage 3 unspecified; E03.9 Hypothyroidism, unspecified; E78.5 Hyperlipidemia, unspecified; J44.9 Chronic obstructive pulmonary disease, unspecified; Z96.641 Presence of right artificial hip joint; Z89.421 Acquired absence of other right toe(s) ==

== ENCOUNTER 2022-01-24 16:04 | Emergency (ER) | payer OTHER ==
[2022-01-24 16:10] VITALS: BP 161/111
[2022-01-24 16:49] LABS: CREATININE 1.55 mg/dL (0.70-1.30); POTASSIUM 4.7 mmol/L (3.5-5.1)
== END 2022-01-24 18:06 | disposition home or self-care (01) ==
LOC: ED 16:04
PROVIDERS: Emergency Medicine
DX: E83.42 Hypomagnesemia (principal); I12.9 Hypertensive chronic kidney disease with stage 1 through stage 4 chronic kidney disease, or unspecified chronic kidney disease; E11.22 Type 2 diabetes mellitus with diabetic chronic kidney disease; N18.30 Chronic kidney disease, stage 3 unspecified; Z79.4 Long term (current) use of insulin; Z87.891 Personal history of nicotine dependence; Z90.49 Acquired absence of other specified parts of digestive tract; Z98.890 Other specified postprocedural states; I48.91 Unspecified atrial fibrillation; I25.10 Atherosclerotic heart disease of native coronary artery without angina pectoris; J44.9 Chronic obstructive pulmonary disease, unspecified; K21.9 Gastro-esophageal reflux disease without esophagitis; M10.9 Gout, unspecified; E78.5 Hyperlipidemia, unspecified; Z86.73 Personal history of transient ischemic attack (TIA), and cerebral infarction without residual deficits; Z79.899 Other long term (current) drug therapy; Z79.82 Long term (current) use of aspirin; Z88.1 Allergy status to other antibiotic agents

== ENCOUNTER → 2022-01-30 | Outpatient (CLI) | payer MEDICARE, OTHER | LOC: WOUNDCARE 02:37 | PROVIDERS: ATTEND Nurse Practitioner Family | DX: E11.621 Type 2 diabetes mellitus with foot ulcer (principal); L97.512 Non-pressure chronic ulcer of other part of right foot with fat layer exposed; L97.521 Non-pressure chronic ulcer of other part of left foot limited to breakdown of skin; E11.622 Type 2 diabetes mellitus with other skin ulcer; L97.811 Non-pressure chronic ulcer of other part of right lower leg limited to breakdown of skin; L84 Corns and callosities; E11.51 Type 2 diabetes mellitus with diabetic peripheral angiopathy without gangrene; E11.69 Type 2 diabetes mellitus with other specified complication; M86.9 Osteomyelitis, unspecified; E11.22 Type 2 diabetes mellitus with diabetic chronic kidney disease; I12.9 Hypertensive chronic kidney disease with stage 1 through stage 4 chronic kidney disease, or unspecified chronic kidney disease; N18.30 Chronic kidney disease, stage 3 unspecified; E03.9 Hypothyroidism, unspecified; E78.5 Hyperlipidemia, unspecified; J44.9 Chronic obstructive pulmonary disease, unspecified; Z96.641 Presence of right artificial hip joint; Z89.421 Acquired absence of other right toe(s) ==

== ENCOUNTER 2022-02-03 14:41 | Emergency (ER) | payer MEDICARE, OTHER ==
[2022-02-03 15:25] LABS: BASO % 0.5 % (0.0-1.0); EOS # 0.3 10*3/uL (0.0-0.4); EOS % 5.3 % (1.0-4.0); HEMATOCRIT 36.6 % (42.0-52.0); LYMPH # 1.1 10*3/uL (1.3-4.4); LYMPH % 17.3 % (27.0-41.0); MEAN CORPUSCULAR HGB 29.1 pg (27.0-31.0); MEAN CORPUSCULAR HGB CONC 31.7 g/dl (33.0-37.0); MEAN PLATELET VOLUME 12.3 fl (9.6-12.3); MONO # 0.5 10*3/uL (0.1-1.0); MONO % 7.4 % (3.0-9.0); NEUT # 4.2 10*3/uL (2.3-7.9); NEUT % 69.2 % (47.0-73.0); PLATELET COUNT AUTOMATED 163 10*3/uL (130-400); RED BLOOD COUNT 3.98 10*6/uL (4.50-5.90); RED CELL DISTRI WIDTH 18.9 % (0-14.5); WHITE BLOOD COUNT 6.1 10*3/uL (4.8-10.8)
[2022-02-03 15:37] LABS: ACT PARTIAL THROMBO TIME 27.8 SECONDS (20.0-32.1); INTERNATIONAL NORM RATIO 1.1 (2.0-3.5)
[2022-02-03 15:39] LABS: CREATININE 1.48 mg/dL (0.70-1.30); POTASSIUM 4.2 mmol/L (3.5-5.1)
[2022-02-03 17:54] VITALS: BP 143/81
== END 2022-02-03 18:07 | disposition home or self-care (01) ==
LOC: ED 14:41
PROVIDERS: Emergency Medicine
DX: R07.9 Chest pain, unspecified (principal); Z87.891 Personal history of nicotine dependence; Z90.49 Acquired absence of other specified parts of digestive tract; Z98.890 Other specified postprocedural states; Z79.899 Other long term (current) drug therapy; Z79.82 Long term (current) use of aspirin; Z88.1 Allergy status to other antibiotic agents; Z88.0 Allergy status to penicillin

== ENCOUNTER → 2022-02-06 | Outpatient (CLI) | payer MEDICARE, OTHER | END | disposition home or self-care (01) | LOC: NM 08:42 | PROVIDERS: ATTEND Nurse Practitioner Family | DX: E11.621 Type 2 diabetes mellitus with foot ulcer (principal); L97.512 Non-pressure chronic ulcer of other part of right foot with fat layer exposed ==

== ENCOUNTER → 2022-02-07 | Outpatient (CLI) | payer OTHER | LOC: WOUNDCARE 03:50 | PROVIDERS: ATTEND Nurse Practitioner Family | DX: E11.621 Type 2 diabetes mellitus with foot ulcer (principal); L97.512 Non-pressure chronic ulcer of other part of right foot with fat layer exposed; L97.521 Non-pressure chronic ulcer of other part of left foot limited to breakdown of skin; E11.622 Type 2 diabetes mellitus with other skin ulcer; L97.811 Non-pressure chronic ulcer of other part of right lower leg limited to breakdown of skin; E11.51 Type 2 diabetes mellitus with diabetic peripheral angiopathy without gangrene; L84 Corns and callosities; E11.69 Type 2 diabetes mellitus with other specified complication; M86.9 Osteomyelitis, unspecified; E11.22 Type 2 diabetes mellitus with diabetic chronic kidney disease; I12.9 Hypertensive chronic kidney disease with stage 1 through stage 4 chronic kidney disease, or unspecified chronic kidney disease; N18.30 Chronic kidney disease, stage 3 unspecified; E03.9 Hypothyroidism, unspecified; E78.5 Hyperlipidemia, unspecified; J44.9 Chronic obstructive pulmonary disease, unspecified; Z96.641 Presence of right artificial hip joint; Z89.421 Acquired absence of other right toe(s) ==

== ENCOUNTER → 2022-02-13 | Outpatient (CLI) | payer OTHER | END | disposition home or self-care (01) | LOC: WOUNDCARE 02:24 | PROVIDERS: ATTEND Nurse Practitioner Family | DX: E11.621 Type 2 diabetes mellitus with foot ulcer (principal); L97.512 Non-pressure chronic ulcer of other part of right foot with fat layer exposed; L97.521 Non-pressure chronic ulcer of other part of left foot limited to breakdown of skin; E11.622 Type 2 diabetes mellitus with other skin ulcer; L97.811 Non-pressure chronic ulcer of other part of right lower leg limited to breakdown of skin; S40.821D Blister (nonthermal) of right upper arm, subsequent encounter; L84 Corns and callosities; E11.51 Type 2 diabetes mellitus with diabetic peripheral angiopathy without gangrene; E11.69 Type 2 diabetes mellitus with other specified complication; M86.9 Osteomyelitis, unspecified; E11.40 Type 2 diabetes mellitus with diabetic neuropathy, unspecified; E78.5 Hyperlipidemia, unspecified; E11.22 Type 2 diabetes mellitus with diabetic chronic kidney disease; I12.9 Hypertensive chronic kidney disease with stage 1 through stage 4 chronic kidney disease, or unspecified chronic kidney disease; N18.30 Chronic kidney disease, stage 3 unspecified; E03.9 Hypothyroidism, unspecified; J44.9 Chronic obstructive pulmonary disease, unspecified; Z87.891 Personal history of nicotine dependence; Z95.5 Presence of coronary angioplasty implant and graft; Z90.49 Acquired absence of other specified parts of digestive tract; Z89.412 Acquired absence of left great toe; Z89.422 Acquired absence of other left toe(s); X58.XXXD Exposure to other specified factors, subsequent encounter ==

== ENCOUNTER → 2022-02-20 | Outpatient (CLI) | payer OTHER | END | disposition home or self-care (01) | LOC: WOUNDCARE 01:07 | PROVIDERS: ATTEND Nurse Practitioner Family | DX: E11.621 Type 2 diabetes mellitus with foot ulcer (principal); L97.512 Non-pressure chronic ulcer of other part of right foot with fat layer exposed; L97.521 Non-pressure chronic ulcer of other part of left foot limited to breakdown of skin; E11.622 Type 2 diabetes mellitus with other skin ulcer; L97.811 Non-pressure chronic ulcer of other part of right lower leg limited to breakdown of skin; S40.821D Blister (nonthermal) of right upper arm, subsequent encounter; L84 Corns and callosities; E11.51 Type 2 diabetes mellitus with diabetic peripheral angiopathy without gangrene; E11.69 Type 2 diabetes mellitus with other specified complication; M86.9 Osteomyelitis, unspecified; E11.40 Type 2 diabetes mellitus with diabetic neuropathy, unspecified; E11.22 Type 2 diabetes mellitus with diabetic chronic kidney disease; I12.9 Hypertensive chronic kidney disease with stage 1 through stage 4 chronic kidney disease, or unspecified chronic kidney disease; N18.30 Chronic kidney disease, stage 3 unspecified; E78.5 Hyperlipidemia, unspecified; E03.9 Hypothyroidism, unspecified; J44.9 Chronic obstructive pulmonary disease, unspecified; Z87.891 Personal history of nicotine dependence; Z95.5 Presence of coronary angioplasty implant and graft; Z90.49 Acquired absence of other specified parts of digestive tract; Z89.412 Acquired absence of left great toe; Z89.422 Acquired absence of other left toe(s); X58.XXXD Exposure to other specified factors, subsequent encounter ==

== ENCOUNTER 2022-02-24 12:20 | Emergency (ER) | payer OTHER ==
[~2022-02-24] VITALS: Ht 182.8 cm; Wt 105.2 kg
[2022-02-24 12:46] VITALS: BP 146/93
[2022-02-24 13:12] LABS: BASO % 0.5 % (0.0-1.0); EOS # 0.4 10*3/uL (0.0-0.4); EOS % 4.6 % (1.0-4.0); HEMATOCRIT 43.2 % (42.0-52.0); LYMPH # 1.3 10*3/uL (1.3-4.4); LYMPH % 16.3 % (27.0-41.0); MEAN CELL VOLUME 90.8 fl (80.0-94.0); MEAN CORPUSCULAR HGB 28.4 pg (27.0-31.0); MEAN CORPUSCULAR HGB CONC 31.3 g/dl (33.0-37.0); MEAN PLATELET VOLUME 11.3 fl (9.6-12.3); MONO # 0.6 10*3/uL (0.1-1.0); MONO % 7.1 % (3.0-9.0); NEUT # 5.8 10*3/uL (2.3-7.9); PLATELET COUNT AUTOMATED 187 10*3/uL (130-400); RED BLOOD COUNT 4.76 10*6/uL (4.50-5.90); RED CELL DISTRI WIDTH 17.7 % (0-14.5); WHITE BLOOD COUNT 8.2 10*3/uL (4.8-10.8)
[2022-02-24 13:20] LABS: INTERNATIONAL NORM RATIO 1.1 (2.0-3.5)
[2022-02-24 13:27] LABS: CREATININE 1.51 mg/dL (0.70-1.30); POTASSIUM 3.9 mmol/L (3.5-5.1); TOTAL PROTEIN 7.2 gm/dL (6.4-8.2)
== END 2022-02-24 15:16 | disposition home or self-care (01) ==
LOC: ED 12:20
PROVIDERS: Physician Assistant
DX: R42 Dizziness and giddiness (principal); Z88.1 Allergy status to other antibiotic agents; Z79.899 Other long term (current) drug therapy; Z79.82 Long term (current) use of aspirin; Z98.890 Other specified postprocedural states; Z90.49 Acquired absence of other specified parts of digestive tract; Z87.891 Personal history of nicotine dependence

== ENCOUNTER → 2022-02-24 | Outpatient (CLI) | payer OTHER | END | disposition home or self-care (01) | LOC: WOUNDCARE 01:37 | PROVIDERS: ATTEND Nurse Practitioner Family | DX: E11.621 Type 2 diabetes mellitus with foot ulcer (principal); L97.512 Non-pressure chronic ulcer of other part of right foot with fat layer exposed; L97.521 Non-pressure chronic ulcer of other part of left foot limited to breakdown of skin; E11.622 Type 2 diabetes mellitus with other skin ulcer; L97.811 Non-pressure chronic ulcer of other part of right lower leg limited to breakdown of skin; S40.821D Blister (nonthermal) of right upper arm, subsequent encounter; L84 Corns and callosities; E11.69 Type 2 diabetes mellitus with other specified complication; M86.9 Osteomyelitis, unspecified; E11.51 Type 2 diabetes mellitus with diabetic peripheral angiopathy without gangrene; E11.40 Type 2 diabetes mellitus with diabetic neuropathy, unspecified; E11.22 Type 2 diabetes mellitus with diabetic chronic kidney disease; I12.9 Hypertensive chronic kidney disease with stage 1 through stage 4 chronic kidney disease, or unspecified chronic kidney disease; N18.30 Chronic kidney disease, stage 3 unspecified; E78.5 Hyperlipidemia, unspecified; J44.9 Chronic obstructive pulmonary disease, unspecified; Z87.891 Personal history of nicotine dependence; Z95.5 Presence of coronary angioplasty implant and graft; Z90.49 Acquired absence of other specified parts of digestive tract; Z89.412 Acquired absence of left great toe; Z89.422 Acquired absence of other left toe(s); X58.XXXD Exposure to other specified factors, subsequent encounter ==

== ENCOUNTER 2022-03-01 14:41 | Emergency (ER) | payer OTHER ==
[~2022-03-01] VITALS: Ht 182.8 cm; Wt 103.9 kg
[2022-03-01 14:48] VITALS: BP 159/82
[2022-03-01 15:55] LABS: BASO % 0.3 % (0.0-1.0); EOS # 0.3 10*3/uL (0.0-0.4); EOS % 3.1 % (1.0-4.0); HEMATOCRIT 41.3 % (42.0-52.0); LYMPH % 9.3 % (27.0-41.0); MEAN CORPUSCULAR HGB 28.9 pg (27.0-31.0); MEAN CORPUSCULAR HGB CONC 31.7 g/dl (33.0-37.0); MEAN PLATELET VOLUME 11.8 fl (9.6-12.3); MONO # 0.6 10*3/uL (0.1-1.0); MONO % 6.1 % (3.0-9.0); NEUT # 8.3 10*3/uL (2.3-7.9); NEUT % 80.9 % (47.0-73.0); PLATELET COUNT AUTOMATED 148 10*3/uL (130-400); RED BLOOD COUNT 4.54 10*6/uL (4.50-5.90); RED CELL DISTRI WIDTH 17.2 % (0-14.5); WHITE BLOOD COUNT 10.3 10*3/uL (4.8-10.8)
[2022-03-01 16:11] LABS: CREATININE 1.85 mg/dL (0.70-1.30); POTASSIUM 4.2 mmol/L (3.5-5.1); TOTAL PROTEIN 6.1 gm/dL (6.4-8.2)
[2022-03-01 17:31] LABS: BILIRUBIN Negative (Negative); BLOOD Trace-Lysed (Negative); CLARITY Clear (Clear); COLOR Yellow (Yellow); GLUCOSE Negative (Negative); KETONE Negative (Negative); LEUKO ESTERASE Negative (Negative); NITRITE Negative (Negative); PH 6.5 (4.5-8.0); UROBILINOGEN 0.2 E.U./dl (0.0-1.0)
== END 2022-03-01 19:30 | disposition home or self-care (01) ==
LOC: ED 14:41
PROVIDERS: Physician Assistant
DX: E86.0 Dehydration (principal); R10.32 Left lower quadrant pain; R19.7 Diarrhea, unspecified; Z88.1 Allergy status to other antibiotic agents; Z88.0 Allergy status to penicillin; Z79.899 Other long term (current) drug therapy; Z79.82 Long term (current) use of aspirin; Z98.890 Other specified postprocedural states; Z90.49 Acquired absence of other specified parts of digestive tract; F17.200 Nicotine dependence, unspecified, uncomplicated

== ENCOUNTER 2022-03-03 01:41 | Emergency (ER) | payer OTHER ==
[~2022-03-03] VITALS: Ht 185.4 cm; Wt 108.4 kg
[2022-03-03 02:13] LABS: BASO % 0.4 % (0.0-1.0); EOS # 0.4 10*3/uL (0.0-0.4); HEMATOCRIT 39.3 % (42.0-52.0); LYMPH # 1.1 10*3/uL (1.3-4.4); LYMPH % 14.8 % (27.0-41.0); MEAN CELL VOLUME 90.8 fl (80.0-94.0); MEAN CORPUSCULAR HGB 28.2 pg (27.0-31.0); MEAN PLATELET VOLUME 11.6 fl (9.6-12.3); MONO # 0.6 10*3/uL (0.1-1.0); MONO % 8.3 % (3.0-9.0); NEUT # 5.2 10*3/uL (2.3-7.9); NEUT % 71.2 % (47.0-73.0); PLATELET COUNT AUTOMATED 155 10*3/uL (130-400); RED BLOOD COUNT 4.33 10*6/uL (4.50-5.90); WHITE BLOOD COUNT 7.2 10*3/uL (4.8-10.8)
[2022-03-03 02:28] LABS: CREATININE 1.6 mg/dL (0.70-1.30); TOTAL PROTEIN 6.5 gm/dL (6.4-8.2)
[2022-03-03 02:44] VITALS: BP 132/77
== END 2022-03-03 05:36 | disposition home or self-care (01) ==
LOC: ED 01:41
PROVIDERS: Internal Medicine
DX: R07.9 Chest pain, unspecified (principal); N17.9 Acute kidney failure, unspecified; I48.91 Unspecified atrial fibrillation; Z88.1 Allergy status to other antibiotic agents; Z88.0 Allergy status to penicillin; Z79.899 Other long term (current) drug therapy; Z79.82 Long term (current) use of aspirin; Z98.890 Other specified postprocedural states; Z90.49 Acquired absence of other specified parts of digestive tract; Z87.891 Personal history of nicotine dependence

== ENCOUNTER → 2022-03-03 | Outpatient (CLI) | payer OTHER | END | disposition home or self-care (01) | LOC: WOUNDCARE 00:48 | PROVIDERS: ATTEND Nurse Practitioner Family | DX: E11.621 Type 2 diabetes mellitus with foot ulcer (principal); L97.512 Non-pressure chronic ulcer of other part of right foot with fat layer exposed; L97.521 Non-pressure chronic ulcer of other part of left foot limited to breakdown of skin; S40.821D Blister (nonthermal) of right upper arm, subsequent encounter; E11.622 Type 2 diabetes mellitus with other skin ulcer; L97.811 Non-pressure chronic ulcer of other part of right lower leg limited to breakdown of skin; E11.51 Type 2 diabetes mellitus with diabetic peripheral angiopathy without gangrene; E11.40 Type 2 diabetes mellitus with diabetic neuropathy, unspecified; E78.5 Hyperlipidemia, unspecified; E11.22 Type 2 diabetes mellitus with diabetic chronic kidney disease; I12.9 Hypertensive chronic kidney disease with stage 1 through stage 4 chronic kidney disease, or unspecified chronic kidney disease; N18.30 Chronic kidney disease, stage 3 unspecified; E03.9 Hypothyroidism, unspecified; J44.9 Chronic obstructive pulmonary disease, unspecified; Z95.5 Presence of coronary angioplasty implant and graft; Z96.641 Presence of right artificial hip joint; Z90.49 Acquired absence of other specified parts of digestive tract; Z89.412 Acquired absence of left great toe; Z89.422 Acquired absence of other left toe(s); X58.XXXD Exposure to other specified factors, subsequent encounter ==

== ENCOUNTER → 2022-03-10 | Outpatient (CLI) | payer OTHER | END | disposition home or self-care (01) | LOC: WOUNDCARE 02:52 | PROVIDERS: ATTEND Nurse Practitioner Family | DX: E11.621 Type 2 diabetes mellitus with foot ulcer (principal); L97.512 Non-pressure chronic ulcer of other part of right foot with fat layer exposed; S40.821D Blister (nonthermal) of right upper arm, subsequent encounter; E11.51 Type 2 diabetes mellitus with diabetic peripheral angiopathy without gangrene; L97.521 Non-pressure chronic ulcer of other part of left foot limited to breakdown of skin; E11.622 Type 2 diabetes mellitus with other skin ulcer; L97.811 Non-pressure chronic ulcer of other part of right lower leg limited to breakdown of skin; L84 Corns and callosities; E11.22 Type 2 diabetes mellitus with diabetic chronic kidney disease; I12.9 Hypertensive chronic kidney disease with stage 1 through stage 4 chronic kidney disease, or unspecified chronic kidney disease; N18.30 Chronic kidney disease, stage 3 unspecified; E11.69 Type 2 diabetes mellitus with other specified complication; M86.9 Osteomyelitis, unspecified; E11.40 Type 2 diabetes mellitus with diabetic neuropathy, unspecified; E03.9 Hypothyroidism, unspecified; E78.5 Hyperlipidemia, unspecified; J44.9 Chronic obstructive pulmonary disease, unspecified; Z87.891 Personal history of nicotine dependence; Z95.5 Presence of coronary angioplasty implant and graft; Z96.641 Presence of right artificial hip joint; Z90.49 Acquired absence of other specified parts of digestive tract; Z89.412 Acquired absence of left great toe; Z89.422 Acquired absence of other left toe(s); X58.XXXD Exposure to other specified factors, subsequent encounter ==

== ENCOUNTER → 2022-03-13 | Outpatient (CLI) | payer OTHER | END | disposition home or self-care (01) | LOC: WOUNDCARE 11:08 | PROVIDERS: ATTEND Nurse Practitioner Family | DX: E11.621 Type 2 diabetes mellitus with foot ulcer (principal); L97.512 Non-pressure chronic ulcer of other part of right foot with fat layer exposed; L97.521 Non-pressure chronic ulcer of other part of left foot limited to breakdown of skin; E11.622 Type 2 diabetes mellitus with other skin ulcer; L97.811 Non-pressure chronic ulcer of other part of right lower leg limited to breakdown of skin; L84 Corns and callosities; S40.821D Blister (nonthermal) of right upper arm, subsequent encounter; E11.51 Type 2 diabetes mellitus with diabetic peripheral angiopathy without gangrene; E11.69 Type 2 diabetes mellitus with other specified complication; M86.9 Osteomyelitis, unspecified; E11.40 Type 2 diabetes mellitus with diabetic neuropathy, unspecified; E11.22 Type 2 diabetes mellitus with diabetic chronic kidney disease; I12.9 Hypertensive chronic kidney disease with stage 1 through stage 4 chronic kidney disease, or unspecified chronic kidney disease; N18.30 Chronic kidney disease, stage 3 unspecified; E78.5 Hyperlipidemia, unspecified; E03.9 Hypothyroidism, unspecified; J44.9 Chronic obstructive pulmonary disease, unspecified; Z87.891 Personal history of nicotine dependence; Z95.5 Presence of coronary angioplasty implant and graft; Z90.49 Acquired absence of other specified parts of digestive tract; Z89.412 Acquired absence of left great toe; Z89.422 Acquired absence of other left toe(s); X58.XXXD Exposure to other specified factors, subsequent encounter ==

== ENCOUNTER 2022-03-19 17:58 | Emergency (ER) | payer OTHER ==
[~2022-03-19] VITALS: Ht 185.4 cm; Wt 108.9 kg
[2022-03-19 18:07] VITALS: BP 127/72
== END 2022-03-19 19:42 | disposition home or self-care (01) ==
LOC: ED 17:58
DX: I73.9 Peripheral vascular disease, unspecified (principal); Z88.1 Allergy status to other antibiotic agents; Z88.0 Allergy status to penicillin; Z79.899 Other long term (current) drug therapy; Z79.82 Long term (current) use of aspirin; Z98.890 Other specified postprocedural states; Z87.891 Personal history of nicotine dependence

== ENCOUNTER → 2022-03-20 | Outpatient (CLI) | payer OTHER | END | disposition home or self-care (01) | LOC: WOUNDCARE 01:12 | PROVIDERS: ATTEND Nurse Practitioner Family | DX: E11.621 Type 2 diabetes mellitus with foot ulcer (principal); L97.512 Non-pressure chronic ulcer of other part of right foot with fat layer exposed; L97.521 Non-pressure chronic ulcer of other part of left foot limited to breakdown of skin; S40.821D Blister (nonthermal) of right upper arm, subsequent encounter; E11.622 Type 2 diabetes mellitus with other skin ulcer; L97.811 Non-pressure chronic ulcer of other part of right lower leg limited to breakdown of skin; L84 Corns and callosities; E11.51 Type 2 diabetes mellitus with diabetic peripheral angiopathy without gangrene; E11.69 Type 2 diabetes mellitus with other specified complication; M86.9 Osteomyelitis, unspecified; E11.40 Type 2 diabetes mellitus with diabetic neuropathy, unspecified; E78.5 Hyperlipidemia, unspecified; E11.22 Type 2 diabetes mellitus with diabetic chronic kidney disease; I12.9 Hypertensive chronic kidney disease with stage 1 through stage 4 chronic kidney disease, or unspecified chronic kidney disease; N18.30 Chronic kidney disease, stage 3 unspecified; E03.9 Hypothyroidism, unspecified; J44.9 Chronic obstructive pulmonary disease, unspecified; Z87.891 Personal history of nicotine dependence; Z95.5 Presence of coronary angioplasty implant and graft; Z96.641 Presence of right artificial hip joint; Z90.49 Acquired absence of other specified parts of digestive tract; Z89.412 Acquired absence of left great toe; Z89.422 Acquired absence of other left toe(s); X58.XXXD Exposure to other specified factors, subsequent encounter ==

== ENCOUNTER → 2022-03-27 | Outpatient (CLI) | payer OTHER | LOC: WOUNDCARE 00:24 | PROVIDERS: ATTEND Nurse Practitioner Family | DX: E11.621 Type 2 diabetes mellitus with foot ulcer (principal); L97.512 Non-pressure chronic ulcer of other part of right foot with fat layer exposed; L97.521 Non-pressure chronic ulcer of other part of left foot limited to breakdown of skin ==

== ENCOUNTER → 2022-03-28 | Outpatient (CLI) | payer OTHER | LOC: WOUNDCARE 00:51 | PROVIDERS: ATTEND Nurse Practitioner Family | DX: E11.621 Type 2 diabetes mellitus with foot ulcer (principal); L97.512 Non-pressure chronic ulcer of other part of right foot with fat layer exposed; L97.521 Non-pressure chronic ulcer of other part of left foot limited to breakdown of skin; E11.622 Type 2 diabetes mellitus with other skin ulcer; L97.811 Non-pressure chronic ulcer of other part of right lower leg limited to breakdown of skin; S40.821D Blister (nonthermal) of right upper arm, subsequent encounter; E11.51 Type 2 diabetes mellitus with diabetic peripheral angiopathy without gangrene; E11.69 Type 2 diabetes mellitus with other specified complication; M86.9 Osteomyelitis, unspecified; E11.40 Type 2 diabetes mellitus with diabetic neuropathy, unspecified; E11.22 Type 2 diabetes mellitus with diabetic chronic kidney disease; I12.9 Hypertensive chronic kidney disease with stage 1 through stage 4 chronic kidney disease, or unspecified chronic kidney disease; N18.30 Chronic kidney disease, stage 3 unspecified; E03.9 Hypothyroidism, unspecified; E78.5 Hyperlipidemia, unspecified; J44.9 Chronic obstructive pulmonary disease, unspecified; Z87.891 Personal history of nicotine dependence; Z95.5 Presence of coronary angioplasty implant and graft; Z90.49 Acquired absence of other specified parts of digestive tract; Z89.412 Acquired absence of left great toe; Z89.422 Acquired absence of other left toe(s); X58.XXXD Exposure to other specified factors, subsequent encounter ==

== ENCOUNTER → 2022-04-01 | Day surgery (SDC) | payer OTHER ==
[~2022-04-01] VITALS: Ht 182.8 cm; Wt 113.4 kg
[2022-04-01 07:19] VITALS: BP 136/88
[2022-04-01 07:55] VITALS: BP 119/51
[2022-04-01 08:10] VITALS: BP 125/69
[2022-04-01 08:25] VITALS: BP 129/93
[2022-04-01 08:40] VITALS: BP 165/93
[2022-04-01 08:55] VITALS: BP 168/80
== END | disposition home or self-care (01) ==
LOC: SDC 03-28 13:15
PROVIDERS: ATTEND Specialist
DX: H65.493 Other chronic nonsuppurative otitis media, bilateral (principal); I25.10 Atherosclerotic heart disease of native coronary artery without angina pectoris; J44.9 Chronic obstructive pulmonary disease, unspecified; E10.9 Type 1 diabetes mellitus without complications; M10.9 Gout, unspecified; F41.9 Anxiety disorder, unspecified; I10 Essential (primary) hypertension; Z86.73 Personal history of transient ischemic attack (TIA), and cerebral infarction without residual deficits; Z79.899 Other long term (current) drug therapy

== ENCOUNTER → 2022-04-02 | Outpatient (CLI) | payer OTHER | LOC: WOUNDCARE 02:02 | PROVIDERS: ATTEND Nurse Practitioner Family | DX: E11.621 Type 2 diabetes mellitus with foot ulcer (principal); L97.512 Non-pressure chronic ulcer of other part of right foot with fat layer exposed; L97.521 Non-pressure chronic ulcer of other part of left foot limited to breakdown of skin ==

== ENCOUNTER 2022-04-03 01:31 | Emergency (ER) | payer OTHER ==
[~2022-04-03] VITALS: Wt 112.9 kg
[2022-04-03 02:06] LABS: BASO % 0.6 % (0.0-1.0); EOS # 0.4 10*3/uL (0.0-0.4); EOS % 7.6 % (1.0-4.0); HEMATOCRIT 38.8 % (42.0-52.0); LYMPH # 1.3 10*3/uL (1.3-4.4); MEAN CELL VOLUME 92.2 fl (80.0-94.0); MEAN CORPUSCULAR HGB 28.5 pg (27.0-31.0); MEAN CORPUSCULAR HGB CONC 30.9 g/dl (33.0-37.0); MEAN PLATELET VOLUME 10.9 fl (9.6-12.3); MONO # 0.6 10*3/uL (0.1-1.0); MONO % 10.6 % (3.0-9.0); NEUT # 2.9 10*3/uL (2.3-7.9); NEUT % 55.6 % (47.0-73.0); PLATELET COUNT AUTOMATED 163 10*3/uL (130-400); RED BLOOD COUNT 4.21 10*6/uL (4.50-5.90); RED CELL DISTRI WIDTH 15.2 % (0-14.5); WHITE BLOOD COUNT 5.3 10*3/uL (4.8-10.8)
[2022-04-03 02:27] LABS: CREATININE 1.54 mg/dL (0.70-1.30); POTASSIUM 4.2 mmol/L (3.5-5.1); TOTAL PROTEIN 6.1 gm/dL (6.4-8.2)
[2022-04-03 05:37] VITALS: BP 143/77
== END 2022-04-03 05:50 | disposition home or self-care (01) ==
LOC: ED 01:31
PROVIDERS: Internal Medicine
DX: R07.9 Chest pain, unspecified (principal); I12.9 Hypertensive chronic kidney disease with stage 1 through stage 4 chronic kidney disease, or unspecified chronic kidney disease; E11.22 Type 2 diabetes mellitus with diabetic chronic kidney disease; N18.31 Chronic kidney disease, stage 3a; J44.9 Chronic obstructive pulmonary disease, unspecified; M10.9 Gout, unspecified; I25.2 Old myocardial infarction; Z86.73 Personal history of transient ischemic attack (TIA), and cerebral infarction without residual deficits

== ENCOUNTER → 2022-04-03 | Outpatient (CLI) | payer OTHER | LOC: WOUNDCARE 01:38 | PROVIDERS: ATTEND Nurse Practitioner Family | DX: E11.621 Type 2 diabetes mellitus with foot ulcer (principal); L97.512 Non-pressure chronic ulcer of other part of right foot with fat layer exposed; L97.521 Non-pressure chronic ulcer of other part of left foot limited to breakdown of skin; E11.622 Type 2 diabetes mellitus with other skin ulcer; L97.811 Non-pressure chronic ulcer of other part of right lower leg limited to breakdown of skin; L84 Corns and callosities; S40.821D Blister (nonthermal) of right upper arm, subsequent encounter; E11.51 Type 2 diabetes mellitus with diabetic peripheral angiopathy without gangrene; E11.69 Type 2 diabetes mellitus with other specified complication; M86.9 Osteomyelitis, unspecified; E11.40 Type 2 diabetes mellitus with diabetic neuropathy, unspecified; E11.22 Type 2 diabetes mellitus with diabetic chronic kidney disease; I12.0 Hypertensive chronic kidney disease with stage 5 chronic kidney disease or end stage renal disease; N18.30 Chronic kidney disease, stage 3 unspecified; E03.9 Hypothyroidism, unspecified; E78.5 Hyperlipidemia, unspecified; Z87.891 Personal history of nicotine dependence; Z95.5 Presence of coronary angioplasty implant and graft; Z96.641 Presence of right artificial hip joint; Z90.49 Acquired absence of other specified parts of digestive tract; Z89.412 Acquired absence of left great toe; Z89.422 Acquired absence of other left toe(s) ==

== ENCOUNTER → 2022-04-11 | Outpatient (CLI) | payer OTHER | END | disposition home or self-care (01) | LOC: WOUNDCARE 01:44 | PROVIDERS: ATTEND Nurse Practitioner Family | DX: E11.621 Type 2 diabetes mellitus with foot ulcer (principal); L97.512 Non-pressure chronic ulcer of other part of right foot with fat layer exposed; L97.521 Non-pressure chronic ulcer of other part of left foot limited to breakdown of skin; E11.622 Type 2 diabetes mellitus with other skin ulcer; L97.811 Non-pressure chronic ulcer of other part of right lower leg limited to breakdown of skin; S40.821D Blister (nonthermal) of right upper arm, subsequent encounter; L84 Corns and callosities; E11.40 Type 2 diabetes mellitus with diabetic neuropathy, unspecified; E11.51 Type 2 diabetes mellitus with diabetic peripheral angiopathy without gangrene; E11.69 Type 2 diabetes mellitus with other specified complication; M86.9 Osteomyelitis, unspecified; E11.22 Type 2 diabetes mellitus with diabetic chronic kidney disease; I12.9 Hypertensive chronic kidney disease with stage 1 through stage 4 chronic kidney disease, or unspecified chronic kidney disease; N18.30 Chronic kidney disease, stage 3 unspecified; E03.9 Hypothyroidism, unspecified; E78.5 Hyperlipidemia, unspecified; J44.9 Chronic obstructive pulmonary disease, unspecified; Z87.891 Personal history of nicotine dependence; Z95.5 Presence of coronary angioplasty implant and graft; Z96.641 Presence of right artificial hip joint; Z90.49 Acquired absence of other specified parts of digestive tract; Z89.412 Acquired absence of left great toe; Z89.422 Acquired absence of other left toe(s); X58.XXXD Exposure to other specified factors, subsequent encounter ==

== ENCOUNTER 2022-04-13 11:54 | Emergency (ER) | payer OTHER ==
[~2022-04-13] VITALS: Ht 182.8 cm; Wt 116.1 kg
[2022-04-13 12:02] VITALS: BP 132/69
[2022-04-13 12:46] LABS: BASO % 0.3 % (0.0-1.0); EOS # 0.3 10*3/uL (0.0-0.4); EOS % 4.8 % (1.0-4.0); HEMATOCRIT 36.8 % (42.0-52.0); LYMPH # 1.4 10*3/uL (1.3-4.4); LYMPH % 19.8 % (27.0-41.0); MEAN CELL VOLUME 90.4 fl (80.0-94.0); MEAN CORPUSCULAR HGB CONC 32.1 g/dl (33.0-37.0); MONO # 0.5 10*3/uL (0.1-1.0); MONO % 7.6 % (3.0-9.0); NEUT # 4.6 10*3/uL (2.3-7.9); NEUT % 67.1 % (47.0-73.0); PLATELET COUNT AUTOMATED 166 10*3/uL (130-400); RED BLOOD COUNT 4.07 10*6/uL (4.50-5.90); RED CELL DISTRI WIDTH 14.9 % (0-14.5); WHITE BLOOD COUNT 6.8 10*3/uL (4.8-10.8)
[2022-04-13 12:57] LABS: ACT PARTIAL THROMBO TIME 33.6 SECONDS (20.0-32.1); INTERNATIONAL NORM RATIO 1.3 (2.0-3.5)
[2022-04-13 13:03] LABS: ALKALINE PHOSPHATASE 108 U/L (45-117); BUN 27 mg/dl (7-24); CHLORIDE 110 mmol/L (98-107); CREATININE 1.41 mg/dL (0.70-1.30); SGOT/AST 8 IU/L (3-35); SGPT/ALT 23 U/L (12-78); SODIUM 141 mmol/L (136-145)
== END 2022-04-13 15:55 | disposition home or self-care (01) ==
LOC: ED 11:54
PROVIDERS: Emergency Medicine
DX: R07.9 Chest pain, unspecified (principal); E83.42 Hypomagnesemia; N18.30 Chronic kidney disease, stage 3 unspecified; I25.10 Atherosclerotic heart disease of native coronary artery without angina pectoris; J44.9 Chronic obstructive pulmonary disease, unspecified; I12.9 Hypertensive chronic kidney disease with stage 1 through stage 4 chronic kidney disease, or unspecified chronic kidney disease; E11.22 Type 2 diabetes mellitus with diabetic chronic kidney disease; Z88.0 Allergy status to penicillin; Z88.1 Allergy status to other antibiotic agents; Z98.890 Other specified postprocedural states; Z87.891 Personal history of nicotine dependence

== ENCOUNTER → 2022-04-17 | Outpatient (CLI) | payer OTHER ==
[~2022-04-17] MED LIST changes: +BROMFED DM COU118 M2 PO; +CEFUROXIME AXE250 MG PO
== END | disposition home or self-care (01) ==
LOC: WOUNDCARE 01:51
PROVIDERS: ATTEND Nurse Practitioner Family
DX: E11.621 Type 2 diabetes mellitus with foot ulcer (principal); L97.512 Non-pressure chronic ulcer of other part of right foot with fat layer exposed; L97.521 Non-pressure chronic ulcer of other part of left foot limited to breakdown of skin; E11.622 Type 2 diabetes mellitus with other skin ulcer; L97.811 Non-pressure chronic ulcer of other part of right lower leg limited to breakdown of skin; S40.821D Blister (nonthermal) of right upper arm, subsequent encounter; L84 Corns and callosities; E11.51 Type 2 diabetes mellitus with diabetic peripheral angiopathy without gangrene; E11.69 Type 2 diabetes mellitus with other specified complication; M86.9 Osteomyelitis, unspecified; E11.40 Type 2 diabetes mellitus with diabetic neuropathy, unspecified; E11.22 Type 2 diabetes mellitus with diabetic chronic kidney disease; I12.9 Hypertensive chronic kidney disease with stage 1 through stage 4 chronic kidney disease, or unspecified chronic kidney disease; N18.30 Chronic kidney disease, stage 3 unspecified; E78.5 Hyperlipidemia, unspecified; E03.9 Hypothyroidism, unspecified; J44.9 Chronic obstructive pulmonary disease, unspecified; Z87.891 Personal history of nicotine dependence; Z95.5 Presence of coronary angioplasty implant and graft; Z96.641 Presence of right artificial hip joint; Z90.49 Acquired absence of other specified parts of digestive tract; Z89.412 Acquired absence of left great toe; Z89.422 Acquired absence of other left toe(s); X58.XXXD Exposure to other specified factors, subsequent encounter

== ENCOUNTER 2022-04-19 10:42 | Emergency (ER) | payer OTHER ==
[~2022-04-19 10:42] MED LIST changes: -BROMFED DM COU118 M2 PO; -CEFUROXIME AXE250 MG PO
[2022-04-19 11:01] LABS: BASO % 0.3 % (0.0-1.0); EOS # 0.4 10*3/uL (0.0-0.4); EOS % 5.7 % (1.0-4.0); HEMATOCRIT 36.6 % (42.0-52.0); LYMPH # 1.2 10*3/uL (1.3-4.4); LYMPH % 19.7 % (27.0-41.0); MEAN CELL VOLUME 90.6 fl (80.0-94.0); MEAN CORPUSCULAR HGB 28.2 pg (27.0-31.0); MEAN CORPUSCULAR HGB CONC 31.1 g/dl (33.0-37.0); MEAN PLATELET VOLUME 10.7 fl (9.6-12.3); MONO # 0.5 10*3/uL (0.1-1.0); MONO % 7.8 % (3.0-9.0); NEUT # 4.1 10*3/uL (2.3-7.9); PLATELET COUNT AUTOMATED 195 10*3/uL (130-400); RED BLOOD COUNT 4.04 10*6/uL (4.50-5.90); RED CELL DISTRI WIDTH 14.8 % (0-14.5); WHITE BLOOD COUNT 6.2 10*3/uL (4.8-10.8)
[2022-04-19 11:16] LABS: CREATININE 2.23 mg/dL (0.70-1.30); POTASSIUM 4.4 mmol/L (3.5-5.1)
[2022-04-19 12:30] VITALS: BP 115/75
== END 2022-04-19 14:39 | disposition home or self-care (01) ==
LOC: ED 10:42
PROVIDERS: Internal Medicine
DX: E11.65 Type 2 diabetes mellitus with hyperglycemia (principal); J44.9 Chronic obstructive pulmonary disease, unspecified; Z86.73 Personal history of transient ischemic attack (TIA), and cerebral infarction without residual deficits; I25.2 Old myocardial infarction; I25.10 Atherosclerotic heart disease of native coronary artery without angina pectoris

== ENCOUNTER 2022-04-22 16:45 | Emergency (ER) | payer OTHER ==
[~2022-04-22] VITALS: Wt 108.9 kg
[2022-04-22 16:52] VITALS: BP 141/83
[2022-04-22] MEDS ORDERED: BROMFED DM COU118 M2 PO (18:49)
[2022-04-22] MEDS ORDERED: PROAIR HFA8.5 GM INH (18:49)
[2022-04-22] MEDS ORDERED: CEFUROXIME AXE250 MG PO (18:49)
== END 2022-04-22 19:20 | disposition home or self-care (01) ==
LOC: ED 16:45
DX: J40 Bronchitis, not specified as acute or chronic (principal)

== ENCOUNTER 2022-04-23 10:43 | Emergency (ER) | payer OTHER ==
[~2022-04-23] VITALS: Ht 185.4 cm; Wt 104.3 kg
[2022-04-23 11:12] LABS: BASO % 0.3 % (0.0-1.0); EOS # 0.1 10*3/uL (0.0-0.4); EOS % 1.2 % (1.0-4.0); HEMATOCRIT 33.8 % (42.0-52.0); LYMPH # 0.4 10*3/uL (1.3-4.4); LYMPH % 7.1 % (27.0-41.0); MEAN CELL VOLUME 87.6 fl (80.0-94.0); MEAN CORPUSCULAR HGB 27.7 pg (27.0-31.0); MEAN CORPUSCULAR HGB CONC 31.7 g/dl (33.0-37.0); MEAN PLATELET VOLUME 10.9 fl (9.6-12.3); MONO # 0.4 10*3/uL (0.1-1.0); MONO % 6.7 % (3.0-9.0); NEUT # 4.9 10*3/uL (2.3-7.9); NEUT % 84.4 % (47.0-73.0); PLATELET COUNT AUTOMATED 165 10*3/uL (130-400); RED BLOOD COUNT 3.86 10*6/uL (4.50-5.90); RED CELL DISTRI WIDTH 14.6 % (0-14.5); WHITE BLOOD COUNT 5.8 10*3/uL (4.8-10.8)
[2022-04-23 11:26] LABS: CREATININE 1.65 mg/dL (0.70-1.30); POTASSIUM 4.2 mmol/L (3.5-5.1); TOTAL PROTEIN 5.8 gm/dL (6.4-8.2)
[2022-04-23 15:00] LABS: CREATININE 1.7 mg/dL (0.70-1.30); POTASSIUM 4.6 mmol/L (3.5-5.1); TOTAL PROTEIN 5.8 gm/dL (6.4-8.2)
[2022-04-23 15:05] VITALS: BP 145/85
== END 2022-04-23 16:19 | disposition home or self-care (01) ==
LOC: ED 10:43
PROVIDERS: Physician Assistant
DX: E11.65 Type 2 diabetes mellitus with hyperglycemia (principal); I25.10 Atherosclerotic heart disease of native coronary artery without angina pectoris; J44.9 Chronic obstructive pulmonary disease, unspecified; Z86.73 Personal history of transient ischemic attack (TIA), and cerebral infarction without residual deficits; I10 Essential (primary) hypertension; I25.2 Old myocardial infarction; M10.9 Gout, unspecified

== ENCOUNTER → 2022-04-23 | Outpatient (CLI) | payer OTHER ==
[~2022-04-23] MED LIST changes: +BROMFED DM COU118 M2 PO; +CEFUROXIME AXE250 MG PO
== END ==
LOC: WOUNDCARE 01:33
PROVIDERS: ATTEND Nurse Practitioner Family
DX: E11.621 Type 2 diabetes mellitus with foot ulcer (principal); L97.512 Non-pressure chronic ulcer of other part of right foot with fat layer exposed; L97.521 Non-pressure chronic ulcer of other part of left foot limited to breakdown of skin; E11.622 Type 2 diabetes mellitus with other skin ulcer; L97.811 Non-pressure chronic ulcer of other part of right lower leg limited to breakdown of skin

== ENCOUNTER → 2022-04-25 | Outpatient (CLI) | payer OTHER | END | disposition home or self-care (01) | LOC: WOUNDCARE 02:00 | PROVIDERS: ATTEND Nurse Practitioner Family | DX: E11.621 Type 2 diabetes mellitus with foot ulcer (principal); L97.512 Non-pressure chronic ulcer of other part of right foot with fat layer exposed; L97.521 Non-pressure chronic ulcer of other part of left foot limited to breakdown of skin; E11.622 Type 2 diabetes mellitus with other skin ulcer; L97.811 Non-pressure chronic ulcer of other part of right lower leg limited to breakdown of skin; S40.821D Blister (nonthermal) of right upper arm, subsequent encounter; L84 Corns and callosities; E11.51 Type 2 diabetes mellitus with diabetic peripheral angiopathy without gangrene; E11.69 Type 2 diabetes mellitus with other specified complication; M86.9 Osteomyelitis, unspecified; E11.40 Type 2 diabetes mellitus with diabetic neuropathy, unspecified; E11.22 Type 2 diabetes mellitus with diabetic chronic kidney disease; I12.9 Hypertensive chronic kidney disease with stage 1 through stage 4 chronic kidney disease, or unspecified chronic kidney disease; N18.30 Chronic kidney disease, stage 3 unspecified; E78.5 Hyperlipidemia, unspecified; E03.9 Hypothyroidism, unspecified; J44.9 Chronic obstructive pulmonary disease, unspecified; Z87.891 Personal history of nicotine dependence; Z95.5 Presence of coronary angioplasty implant and graft; Z96.641 Presence of right artificial hip joint; Z90.49 Acquired absence of other specified parts of digestive tract; Z89.412 Acquired absence of left great toe; Z89.422 Acquired absence of other left toe(s); X58.XXXD Exposure to other specified factors, subsequent encounter ==

== ENCOUNTER 2022-05-04 01:05 | Inpatient (IN) | payer OTHER ==
[~2022-05-04] VITALS: Ht 182.8 cm; Wt 115.2 kg
[2022-05-04 01:08] VITALS: BP 134/70
[2022-05-04 01:37] LABS: BASO % 0.3 % (0.0-1.0); EOS # 0.4 10*3/uL (0.0-0.4); HEMATOCRIT 35.7 % (42.0-52.0); LYMPH # 1.6 10*3/uL (1.3-4.4); LYMPH % 25.4 % (27.0-41.0); MEAN CELL VOLUME 89.9 fl (80.0-94.0); MEAN CORPUSCULAR HGB 27.7 pg (27.0-31.0); MEAN CORPUSCULAR HGB CONC 30.8 g/dl (33.0-37.0); MEAN PLATELET VOLUME 10.8 fl (9.6-12.3); MONO # 0.6 10*3/uL (0.1-1.0); MONO % 8.9 % (3.0-9.0); NEUT # 3.7 10*3/uL (2.3-7.9); NEUT % 59.1 % (47.0-73.0); PLATELET COUNT AUTOMATED 145 10*3/uL (130-400); RED BLOOD COUNT 3.97 10*6/uL (4.50-5.90); RED CELL DISTRI WIDTH 15.1 % (0-14.5); WHITE BLOOD COUNT 6.2 10*3/uL (4.8-10.8)
[2022-05-04 01:55] LABS: CREATININE 1.64 mg/dL (0.70-1.30); POTASSIUM 4.1 mmol/L (3.5-5.1); TOTAL PROTEIN 5.9 gm/dL (6.4-8.2)
[2022-05-04 04:25] VITALS: BP 119/73
[2022-05-04] MEDS ORDERED: NEURONTIN600 MG PO (04:54)
[2022-05-04] MEDS ORDERED: NEURONTIN100 MG PO (04:54)
[2022-05-04] MEDS ORDERED: MAGNESIUM OXID250 M2 PO (04:55)
[2022-05-04] MEDS ORDERED: XARE15TA PO (04:57)
[2022-05-04] MEDS ORDERED: GLIMEPIRIDE2 MG PO (04:58)
[2022-05-04] MEDS ORDERED: OMEGA 3 1,0001 EACH PO (05:00)
[2022-05-04] MEDS ORDERED: OMEPRAZOLE MAGN20 MG PO (05:01)
[2022-05-04 08:00] VITALS: BP 150/73
[2022-05-04 12:00] VITALS: BP 151/65
[2022-05-04 16:00] VITALS: BP 148/52
[2022-05-04 20:00] VITALS: BP 148/94
[2022-05-05] VITALS: BP 144/69
[2022-05-05 06:12] LABS: HEMATOCRIT 34.4 % (42.0-52.0); MEAN CELL VOLUME 87.5 fl (80.0-94.0); MEAN CORPUSCULAR HGB 27.7 pg (27.0-31.0); MEAN CORPUSCULAR HGB CONC 31.7 g/dl (33.0-37.0); MEAN PLATELET VOLUME 12.1 fl (9.6-12.3); PLATELET COUNT AUTOMATED 129 10*3/uL (130-400); RED BLOOD COUNT 3.93 10*6/uL (4.50-5.90); RED CELL DISTRI WIDTH 14.8 % (0-14.5); WHITE BLOOD COUNT 7.5 10*3/uL (4.8-10.8)
[2022-05-05 06:33] LABS: CREATININE 1.7 mg/dL (0.70-1.30)
[2022-05-05 06:38] LABS: TOTAL PROTEIN 5.9 gm/dL (6.4-8.2)
[2022-05-05 06:45] LABS: MANUAL DIFF REFLEX YES
[2022-05-05 07:08] LABS: TOTAL CELLS COUNTED 100 #CELLS
[2022-05-05 07:09] LABS: BURR CELLS FEW; OVALOCYTES FEW; PLATELET SUFFICIENCY LOW (NORMAL); POLYCHROMASIA SLIGHT; SCHISTOCYTES FEW
[2022-05-05 07:27] LABS: POTASSIUM 5.1 mmol/L (3.5-5.1)
[2022-05-05 08:00] VITALS: BP 145/79
[2022-05-05 12:00] VITALS: BP 154/97
[2022-05-05 16:00] VITALS: BP 114/72
[2022-05-05 20:00] VITALS: BP 137/65
[2022-05-06] VITALS: BP 148/83
[2022-05-06 04:45] LABS: HEMATOCRIT 34.7 % (42.0-52.0); MEAN CORPUSCULAR HGB 27.7 pg (27.0-31.0); MEAN CORPUSCULAR HGB CONC 30.5 g/dl (33.0-37.0); MEAN PLATELET VOLUME 11.6 fl (9.6-12.3); PLATELET COUNT AUTOMATED 133 10*3/uL (130-400); RED BLOOD COUNT 3.82 10*6/uL (4.50-5.90); RED CELL DISTRI WIDTH 15.3 % (0-14.5); WHITE BLOOD COUNT 10.1 10*3/uL (4.8-10.8)
[2022-05-06 04:54] LABS: MANUAL DIFF REFLEX YES
[2022-05-06 04:55] LABS: MEAN CELL VOLUME 90.8 fl (80.0-94.0)
[2022-05-06 04:58] LABS: CREATININE 1.65 mg/dL (0.70-1.30); POTASSIUM 4.9 mmol/L (3.5-5.1)
[2022-05-06 05:04] LABS: PLATELET SUFFICIENCY LOW (NORMAL); TOTAL CELLS COUNTED 100 #CELLS
[2022-05-06 08:00] VITALS: BP 176/93
[2022-05-06] MEDS ORDERED: PREDNISONE10 MG PO (09:47)
[2022-05-06] MEDS ORDERED: LEVOFLOXACIN500 MG PO (09:47)
[2022-05-06] MEDS ORDERED: MUCINEX ER600 MG PO (09:47)
== END 2022-05-06 11:03 | disposition home health service (06) | DRG 871 ==
LOC: ED 01:05 → 4E 04:07 → EDHOLD 04:07 → 4E 04:45
PROVIDERS: Internal Medicine; Registered Nurse; ADMIT Internal Medicine; ATTEND Internal Medicine
DX: A41.9 Sepsis, unspecified organism (principal); J18.9 Pneumonia, unspecified organism; J44.1 Chronic obstructive pulmonary disease with (acute) exacerbation; E44.0 Moderate protein-calorie malnutrition; I50.32 Chronic diastolic (congestive) heart failure; F33.9 Major depressive disorder, recurrent, unspecified; I48.21 Permanent atrial fibrillation; J44.0 Chronic obstructive pulmonary disease with (acute) lower respiratory infection; I13.0 Hypertensive heart and chronic kidney disease with heart failure and stage 1 through stage 4 chronic kidney disease, or unspecified chronic kidney disease; Z96.641 Presence of right artificial hip joint; E83.42 Hypomagnesemia; D64.9 Anemia, unspecified; N40.0 Benign prostatic hyperplasia without lower urinary tract symptoms; I25.10 Atherosclerotic heart disease of native coronary artery without angina pectoris; E66.9 Obesity, unspecified; N18.31 Chronic kidney disease, stage 3a; E11.51 Type 2 diabetes mellitus with diabetic peripheral angiopathy without gangrene; G47.33 Obstructive sleep apnea (adult) (pediatric); F41.1 Generalized anxiety disorder; K21.9 Gastro-esophageal reflux disease without esophagitis; M1A.30X0 Chronic gout due to renal impairment, unspecified site, without tophus (tophi); M51.37 Other intervertebral disc degeneration, lumbosacral region; E11.42 Type 2 diabetes mellitus with diabetic polyneuropathy; K44.9 Diaphragmatic hernia without obstruction or gangrene; E78.2 Mixed hyperlipidemia; K57.90 Diverticulosis of intestine, part unspecified, without perforation or abscess without bleeding; I48.0 Paroxysmal atrial fibrillation; E11.22 Type 2 diabetes mellitus with diabetic chronic kidney disease; S91.301A Unspecified open wound, right foot, initial encounter; Z80.0 Family history of malignant neoplasm of digestive organs; Z88.4 Allergy status to anesthetic agent; Z79.4 Long term (current) use of insulin; Z88.0 Allergy status to penicillin; Z88.8 Allergy status to other drugs, medicaments and biological substances; Z90.49 Acquired absence of other specified parts of digestive tract; Z89.432 Acquired absence of left foot; Z82.49 Family history of ischemic heart disease and other diseases of the circulatory system; Z86.73 Personal history of transient ischemic attack (TIA), and cerebral infarction without residual deficits; Z87.891 Personal history of nicotine dependence; X58.XXXA Exposure to other specified factors, initial encounter; Y93.89 Activity, other specified; Y92.89 Other specified places as the place of occurrence of the external cause; Y99.8 Other external cause status; Z68.34 Body mass index [BMI] 34.0-34.9, adult

== ENCOUNTER → 2022-05-08 | Outpatient (CLI) | payer OTHER ==
[~2022-05-08] MED LIST changes: +MAGNESIUM OXID250 M2 PO; +OMEGA 3 1,0001 EACH PO; +OMEPRAZOLE MAGN20 MG PO
== END | disposition home or self-care (01) ==
LOC: WOUNDCARE 01:22
PROVIDERS: ATTEND Nurse Practitioner Family
DX: E11.621 Type 2 diabetes mellitus with foot ulcer (principal); L97.512 Non-pressure chronic ulcer of other part of right foot with fat layer exposed; L97.521 Non-pressure chronic ulcer of other part of left foot limited to breakdown of skin; E11.622 Type 2 diabetes mellitus with other skin ulcer; L97.811 Non-pressure chronic ulcer of other part of right lower leg limited to breakdown of skin; S40.821D Blister (nonthermal) of right upper arm, subsequent encounter; L84 Corns and callosities; E11.22 Type 2 diabetes mellitus with diabetic chronic kidney disease; I12.9 Hypertensive chronic kidney disease with stage 1 through stage 4 chronic kidney disease, or unspecified chronic kidney disease; N18.30 Chronic kidney disease, stage 3 unspecified; E11.51 Type 2 diabetes mellitus with diabetic peripheral angiopathy without gangrene; E11.69 Type 2 diabetes mellitus with other specified complication; M86.9 Osteomyelitis, unspecified; E11.40 Type 2 diabetes mellitus with diabetic neuropathy, unspecified; E03.9 Hypothyroidism, unspecified; E78.5 Hyperlipidemia, unspecified; J44.9 Chronic obstructive pulmonary disease, unspecified; Z87.891 Personal history of nicotine dependence; Z95.5 Presence of coronary angioplasty implant and graft; Z96.641 Presence of right artificial hip joint; Z90.49 Acquired absence of other specified parts of digestive tract; Z89.412 Acquired absence of left great toe; Z89.422 Acquired absence of other left toe(s); X58.XXXD Exposure to other specified factors, subsequent encounter

== ENCOUNTER 2022-05-13 16:45 | Emergency (ER) | payer OTHER ==
[~2022-05-13] VITALS: Ht 182 cm; Wt 114.8 kg
[2022-05-13 16:59] VITALS: BP 110/57
[2022-05-13 17:30] LABS: BASO % 0.3 % (0.0-1.0); EOS # 0.3 10*3/uL (0.0-0.4); EOS % 4.5 % (1.0-4.0); HEMATOCRIT 34.4 % (42.0-52.0); LYMPH # 1.6 10*3/uL (1.3-4.4); LYMPH % 22.9 % (27.0-41.0); MEAN CELL VOLUME 89.8 fl (80.0-94.0); MEAN CORPUSCULAR HGB 27.7 pg (27.0-31.0); MEAN CORPUSCULAR HGB CONC 30.8 g/dl (33.0-37.0); MEAN PLATELET VOLUME 11.6 fl (9.6-12.3); MONO # 0.7 10*3/uL (0.1-1.0); MONO % 9.8 % (3.0-9.0); NEUT # 4.3 10*3/uL (2.3-7.9); NEUT % 61.9 % (47.0-73.0); PLATELET COUNT AUTOMATED 139 10*3/uL (130-400); RED BLOOD COUNT 3.83 10*6/uL (4.50-5.90); RED CELL DISTRI WIDTH 15.6 % (0-14.5); WHITE BLOOD COUNT 6.9 10*3/uL (4.8-10.8)
[2022-05-13 17:45] LABS: ACT PARTIAL THROMBO TIME 37.1 SECONDS (20.0-32.1); INTERNATIONAL NORM RATIO 1.6 (2.0-3.5)
[2022-05-13 17:46] LABS: ALKALINE PHOSPHATASE 95 U/L (45-117); BUN 24 mg/dl (7-24); CHLORIDE 117 mmol/L (98-107); CREATININE 1.39 mg/dL (0.70-1.30); LIPASE 172 U/L (73-393); POTASSIUM 3.8 mmol/L (3.5-5.1); SGOT/AST 22 IU/L (3-35); SGPT/ALT 48 U/L (12-78); SODIUM 145 mmol/L (136-145); TOTAL PROTEIN 5.4 gm/dL (6.4-8.2)
== END 2022-05-13 18:45 | disposition left against medical advice (07) ==
LOC: ED 16:45
PROVIDERS: Emergency Medicine
DX: R06.02 Shortness of breath (principal); Z53.21 Procedure and treatment not carried out due to patient leaving prior to being seen by health care provider

== ENCOUNTER 2022-05-15 09:17 | Emergency (ER) | payer OTHER ==
[2022-05-15 09:34] VITALS: BP 151/71
[2022-05-15 09:56] LABS: BASO % 0.3 % (0.0-1.0); EOS # 0.2 10*3/uL (0.0-0.4); EOS % 3.7 % (1.0-4.0); HEMATOCRIT 35.2 % (42.0-52.0); LYMPH # 1.1 10*3/uL (1.3-4.4); MEAN CORPUSCULAR HGB 27.6 pg (27.0-31.0); MEAN CORPUSCULAR HGB CONC 30.7 g/dl (33.0-37.0); MEAN PLATELET VOLUME 11.1 fl (9.6-12.3); MONO # 0.4 10*3/uL (0.1-1.0); MONO % 6.6 % (3.0-9.0); NEUT # 4.4 10*3/uL (2.3-7.9); NEUT % 71.3 % (47.0-73.0); PLATELET COUNT AUTOMATED 134 10*3/uL (130-400); RED BLOOD COUNT 3.91 10*6/uL (4.50-5.90); RED CELL DISTRI WIDTH 15.9 % (0-14.5); WHITE BLOOD COUNT 6.2 10*3/uL (4.8-10.8)
[2022-05-15 10:16] LABS: CREATININE 1.46 mg/dL (0.70-1.30); POTASSIUM 4.1 mmol/L (3.5-5.1); TOTAL PROTEIN 5.8 gm/dL (6.4-8.2)
[2022-05-15] MEDS ORDERED: PREDNISONE10 MG PO (11:27)
[2022-05-15] MEDS ORDERED: LEVOFLOXACIN500 MG PO (11:27)
[2022-05-15] MEDS ORDERED: LASIX40 MG PO (11:27)
== END 2022-05-15 11:54 | disposition home or self-care (01) ==
LOC: ED 09:17 → EDHOLD 11:23 → ED 11:23
PROVIDERS: Family Medicine
DX: I50.9 Heart failure, unspecified (principal); J44.1 Chronic obstructive pulmonary disease with (acute) exacerbation; Z88.0 Allergy status to penicillin; Z88.1 Allergy status to other antibiotic agents; Z79.899 Other long term (current) drug therapy; Z79.82 Long term (current) use of aspirin; Z98.890 Other specified postprocedural states; Z87.891 Personal history of nicotine dependence

== ENCOUNTER 2022-05-15 13:10 | Emergency (ER) | payer OTHER ==
[~2022-05-15] VITALS: Wt 115.2 kg
[2022-05-15 13:20] VITALS: BP 148/88
== END 2022-05-15 14:26 | disposition left against medical advice (07) ==
LOC: ED 13:10
DX: R42 Dizziness and giddiness (principal); Z53.21 Procedure and treatment not carried out due to patient leaving prior to being seen by health care provider

== ENCOUNTER → 2022-05-15 | Outpatient (CLI) | payer OTHER | END | disposition home or self-care (01) | LOC: WOUNDCARE 00:16 | PROVIDERS: ATTEND Nurse Practitioner Family | DX: E11.621 Type 2 diabetes mellitus with foot ulcer (principal); L97.512 Non-pressure chronic ulcer of other part of right foot with fat layer exposed; L97.521 Non-pressure chronic ulcer of other part of left foot limited to breakdown of skin; E11.622 Type 2 diabetes mellitus with other skin ulcer; L97.811 Non-pressure chronic ulcer of other part of right lower leg limited to breakdown of skin; S40.821D Blister (nonthermal) of right upper arm, subsequent encounter; L84 Corns and callosities; E11.51 Type 2 diabetes mellitus with diabetic peripheral angiopathy without gangrene; E11.69 Type 2 diabetes mellitus with other specified complication; M86.9 Osteomyelitis, unspecified; Z87.891 Personal history of nicotine dependence; Z95.5 Presence of coronary angioplasty implant and graft; Z96.641 Presence of right artificial hip joint; Z90.49 Acquired absence of other specified parts of digestive tract; Z89.412 Acquired absence of left great toe; Z89.422 Acquired absence of other left toe(s); X58.XXXD Exposure to other specified factors, subsequent encounter ==

== ENCOUNTER 2022-05-16 08:05 | Emergency (ER) | payer OTHER ==
[2022-05-16 08:15] VITALS: BP 147/48
[2022-05-16 09:05] LABS: MEAN CORPUSCULAR HGB 27.6 pg (27.0-31.0); MEAN CORPUSCULAR HGB CONC 31.9 g/dl (33.0-37.0); MEAN PLATELET VOLUME 11.5 fl (9.6-12.3); PLATELET COUNT AUTOMATED 138 10*3/uL (130-400); RED BLOOD COUNT 3.69 10*6/uL (4.50-5.90); RED CELL DISTRI WIDTH 16.1 % (0-14.5); WHITE BLOOD COUNT 10.8 10*3/uL (4.8-10.8)
[2022-05-16 09:06] LABS: MANUAL DIFF REFLEX YES; MEAN CELL VOLUME 86.7 fl (80.0-94.0)
[2022-05-16 09:17] LABS: CREATININE 2.15 mg/dL (0.70-1.30); POTASSIUM 4.6 mmol/L (3.5-5.1)
[2022-05-16 09:20] LABS: BURR CELLS FEW; OVALOCYTES FEW; PLATELET SUFFICIENCY NORMAL (NORMAL); POLYCHROMASIA SLIGHT; TOTAL CELLS COUNTED 100 #CELLS
== END 2022-05-16 12:25 | disposition home or self-care (01) ==
LOC: ED 08:05
PROVIDERS: Family Medicine
DX: E11.65 Type 2 diabetes mellitus with hyperglycemia (principal); N17.0 Acute kidney failure with tubular necrosis; J44.9 Chronic obstructive pulmonary disease, unspecified; M10.9 Gout, unspecified; I25.2 Old myocardial infarction; I10 Essential (primary) hypertension

== ENCOUNTER → 2022-05-16 | Outpatient (CLI) | payer OTHER | LOC: WOUNDCARE 01:56 | PROVIDERS: ATTEND Nurse Practitioner Family | DX: Z53.21 Procedure and treatment not carried out due to patient leaving prior to being seen by health care provider (principal) ==

== ENCOUNTER 2022-05-19 09:52 | Emergency (ER) | payer OTHER ==
[2022-05-19 10:04] VITALS: BP 119/65
== END 2022-05-19 10:44 | disposition home or self-care (01) ==
LOC: ED 09:52
DX: E11.621 Type 2 diabetes mellitus with foot ulcer (principal); I48.91 Unspecified atrial fibrillation; I25.10 Atherosclerotic heart disease of native coronary artery without angina pectoris; J44.9 Chronic obstructive pulmonary disease, unspecified; I13.0 Hypertensive heart and chronic kidney disease with heart failure and stage 1 through stage 4 chronic kidney disease, or unspecified chronic kidney disease; E11.22 Type 2 diabetes mellitus with diabetic chronic kidney disease; N18.30 Chronic kidney disease, stage 3 unspecified; K21.9 Gastro-esophageal reflux disease without esophagitis; M10.9 Gout, unspecified; Z88.0 Allergy status to penicillin; Z88.1 Allergy status to other antibiotic agents; Z79.899 Other long term (current) drug therapy; Z79.82 Long term (current) use of aspirin; Z87.891 Personal history of nicotine dependence

== ENCOUNTER → 2022-05-21 | Outpatient (CLI) | payer OTHER | END | disposition home or self-care (01) | LOC: WOUNDCARE 13:20 | PROVIDERS: ATTEND Nurse Practitioner Family | DX: E11.621 Type 2 diabetes mellitus with foot ulcer (principal); L97.512 Non-pressure chronic ulcer of other part of right foot with fat layer exposed; L97.521 Non-pressure chronic ulcer of other part of left foot limited to breakdown of skin; E11.622 Type 2 diabetes mellitus with other skin ulcer; L97.811 Non-pressure chronic ulcer of other part of right lower leg limited to breakdown of skin; L84 Corns and callosities; S40.821D Blister (nonthermal) of right upper arm, subsequent encounter; E11.69 Type 2 diabetes mellitus with other specified complication; M86.9 Osteomyelitis, unspecified; E11.51 Type 2 diabetes mellitus with diabetic peripheral angiopathy without gangrene; E11.40 Type 2 diabetes mellitus with diabetic neuropathy, unspecified; E11.22 Type 2 diabetes mellitus with diabetic chronic kidney disease; I12.9 Hypertensive chronic kidney disease with stage 1 through stage 4 chronic kidney disease, or unspecified chronic kidney disease; N18.30 Chronic kidney disease, stage 3 unspecified; E03.9 Hypothyroidism, unspecified; E78.5 Hyperlipidemia, unspecified; J44.9 Chronic obstructive pulmonary disease, unspecified; Z87.891 Personal history of nicotine dependence; Z95.5 Presence of coronary angioplasty implant and graft; Z96.651 Presence of right artificial knee joint; Z90.49 Acquired absence of other specified parts of digestive tract; Z89.412 Acquired absence of left great toe; Z89.422 Acquired absence of other left toe(s); X58.XXXD Exposure to other specified factors, subsequent encounter ==

== ENCOUNTER 2022-05-27 03:43 | Emergency (ER) | payer OTHER ==
[~2022-05-27] VITALS: Ht 187.9 cm; Wt 113.4 kg
[2022-05-27 04:11] VITALS: BP 139/71
[2022-05-27 04:24] LABS: BASO % 0.5 % (0.0-1.0); EOS # 0.2 10*3/uL (0.0-0.4); EOS % 3.7 % (1.0-4.0); HEMATOCRIT 34.5 % (42.0-52.0); LYMPH # 1.8 10*3/uL (1.3-4.4); LYMPH % 27.1 % (27.0-41.0); MEAN CELL VOLUME 89.4 fl (80.0-94.0); MEAN CORPUSCULAR HGB 27.2 pg (27.0-31.0); MEAN CORPUSCULAR HGB CONC 30.4 g/dl (33.0-37.0); MONO # 0.6 10*3/uL (0.1-1.0); MONO % 8.8 % (3.0-9.0); NEUT # 3.8 10*3/uL (2.3-7.9); NEUT % 59.1 % (47.0-73.0); PLATELET COUNT AUTOMATED 197 10*3/uL (130-400); RED BLOOD COUNT 3.86 10*6/uL (4.50-5.90); RED CELL DISTRI WIDTH 16.5 % (0-14.5); WHITE BLOOD COUNT 6.5 10*3/uL (4.8-10.8)
[2022-05-27 04:40] LABS: CREATININE 1.72 mg/dL (0.70-1.30); POTASSIUM 4.7 mmol/L (3.5-5.1); TOTAL PROTEIN 5.7 gm/dL (6.4-8.2)
[2022-05-27] MEDS ORDERED: PREDNISONE10 MG PO (05:00)
== END 2022-05-27 05:29 | disposition home or self-care (01) ==
LOC: ED 03:43
PROVIDERS: Emergency Medicine
DX: J44.1 Chronic obstructive pulmonary disease with (acute) exacerbation (principal); Z88.1 Allergy status to other antibiotic agents; Z88.0 Allergy status to penicillin; Z79.899 Other long term (current) drug therapy; Z79.82 Long term (current) use of aspirin; Z98.890 Other specified postprocedural states; Z90.49 Acquired absence of other specified parts of digestive tract; Z87.891 Personal history of nicotine dependence

== ENCOUNTER 2022-05-27 13:12 | Emergency (ER) | payer OTHER ==
[~2022-05-27] VITALS: Ht 182.8 cm; Wt 113.4 kg
[2022-05-27 13:24] VITALS: BP 162/72
[2022-05-27 14:08] LABS: MEAN CELL VOLUME 89.3 fl (80.0-94.0); MEAN CORPUSCULAR HGB 27.3 pg (27.0-31.0); MEAN CORPUSCULAR HGB CONC 30.6 g/dl (33.0-37.0); MEAN PLATELET VOLUME 11.7 fl (9.6-12.3); PLATELET COUNT AUTOMATED 179 10*3/uL (130-400); RED BLOOD COUNT 4.03 10*6/uL (4.50-5.90); RED CELL DISTRI WIDTH 16.3 % (0-14.5); WHITE BLOOD COUNT 7.8 10*3/uL (4.8-10.8)
[2022-05-27 14:14] LABS: MANUAL DIFF REFLEX YES
[2022-05-27 14:21] LABS: ACT PARTIAL THROMBO TIME 34.4 SECONDS (20.0-32.1); INTERNATIONAL NORM RATIO 1.6 (2.0-3.5)
[2022-05-27 14:27] LABS: CREATININE 2.11 mg/dL (0.70-1.30); POTASSIUM 5.3 mmol/L (3.5-5.1)
[2022-05-27 14:53] LABS: BURR CELLS FEW; PLATELET SUFFICIENCY NORMAL (NORMAL); TOTAL CELLS COUNTED 100 #CELLS
== END 2022-05-27 19:32 | disposition admitted as inpatient to this hospital (09) ==
LOC: ED 13:12 → EDHOLD 15:14 → ED 15:14 → EDHOLD 15:51 → 4E 18:34 → EDHOLD 18:34
PROVIDERS: Emergency Medicine
DX: I13.0 Hypertensive heart and chronic kidney disease with heart failure and stage 1 through stage 4 chronic kidney disease, or unspecified chronic kidney disease (principal); N17.0 Acute kidney failure with tubular necrosis; I50.32 Chronic diastolic (congestive) heart failure; E44.0 Moderate protein-calorie malnutrition; E11.22 Type 2 diabetes mellitus with diabetic chronic kidney disease; E11.65 Type 2 diabetes mellitus with hyperglycemia; J44.9 Chronic obstructive pulmonary disease, unspecified; N18.32 Chronic kidney disease, stage 3b; Z79.4 Long term (current) use of insulin

== ENCOUNTER → 2022-05-28 | Outpatient (CLI) | payer OTHER | END | disposition home or self-care (01) | LOC: WOUNDCARE 02:46 | PROVIDERS: ATTEND Nurse Practitioner Family | DX: E11.621 Type 2 diabetes mellitus with foot ulcer (principal); L97.512 Non-pressure chronic ulcer of other part of right foot with fat layer exposed; L84 Corns and callosities; E11.69 Type 2 diabetes mellitus with other specified complication; M86.9 Osteomyelitis, unspecified; E11.51 Type 2 diabetes mellitus with diabetic peripheral angiopathy without gangrene; E11.40 Type 2 diabetes mellitus with diabetic neuropathy, unspecified; E11.22 Type 2 diabetes mellitus with diabetic chronic kidney disease; I12.9 Hypertensive chronic kidney disease with stage 1 through stage 4 chronic kidney disease, or unspecified chronic kidney disease; N18.30 Chronic kidney disease, stage 3 unspecified; E03.9 Hypothyroidism, unspecified; E78.5 Hyperlipidemia, unspecified; J44.9 Chronic obstructive pulmonary disease, unspecified; Z87.891 Personal history of nicotine dependence; Z95.5 Presence of coronary angioplasty implant and graft; Z96.651 Presence of right artificial knee joint; Z90.49 Acquired absence of other specified parts of digestive tract; Z89.412 Acquired absence of left great toe; Z89.422 Acquired absence of other left toe(s); X58.XXXD Exposure to other specified factors, subsequent encounter ==

== ENCOUNTER 2022-05-29 20:45 | Emergency (ER) | payer OTHER ==
[~2022-05-29] VITALS: Ht 182.8 cm; Wt 113.4 kg
[2022-05-29 21:01] VITALS: BP 143/94
[2022-05-29 21:38] LABS: BASO % 0.1 % (0.0-1.0); EOS # 0.1 10*3/uL (0.0-0.4); EOS % 1.2 % (1.0-4.0); HEMATOCRIT 33.3 % (42.0-52.0); LYMPH # 1.7 10*3/uL (1.3-4.4); LYMPH % 22.9 % (27.0-41.0); MEAN CELL VOLUME 90.2 fl (80.0-94.0); MEAN CORPUSCULAR HGB 27.4 pg (27.0-31.0); MEAN CORPUSCULAR HGB CONC 30.3 g/dl (33.0-37.0); MEAN PLATELET VOLUME 10.9 fl (9.6-12.3); MONO # 0.6 10*3/uL (0.1-1.0); NEUT % 66.9 % (47.0-73.0); PLATELET COUNT AUTOMATED 175 10*3/uL (130-400); RED BLOOD COUNT 3.69 10*6/uL (4.50-5.90); WHITE BLOOD COUNT 7.5 10*3/uL (4.8-10.8)
[2022-05-29 21:55] LABS: CREATININE 1.89 mg/dL (0.70-1.30); POTASSIUM 3.5 mmol/L (3.5-5.1); TOTAL PROTEIN 5.6 gm/dL (6.4-8.2)
== END 2022-05-30 03:58 | disposition home or self-care (01) ==
LOC: ED 20:45
PROVIDERS: Internal Medicine
DX: R07.9 Chest pain, unspecified (principal); Z20.822 Contact with and (suspected) exposure to COVID-19; N17.9 Acute kidney failure, unspecified; E83.42 Hypomagnesemia; E44.0 Moderate protein-calorie malnutrition; D64.9 Anemia, unspecified; R79.89 Other specified abnormal findings of blood chemistry; E11.65 Type 2 diabetes mellitus with hyperglycemia; J44.9 Chronic obstructive pulmonary disease, unspecified; I25.10 Atherosclerotic heart disease of native coronary artery without angina pectoris; M10.9 Gout, unspecified; I25.2 Old myocardial infarction; I10 Essential (primary) hypertension; Z86.73 Personal history of transient ischemic attack (TIA), and cerebral infarction without residual deficits; Z88.1 Allergy status to other antibiotic agents; Z88.0 Allergy status to penicillin; Z79.899 Other long term (current) drug therapy; Z79.82 Long term (current) use of aspirin; Z87.891 Personal history of nicotine dependence; Z90.49 Acquired absence of other specified parts of digestive tract; Z98.890 Other specified postprocedural states

== ENCOUNTER → 2022-06-05 | Outpatient (CLI) | payer OTHER | END | disposition home or self-care (01) | LOC: WOUNDCARE 01:02 | PROVIDERS: ATTEND Nurse Practitioner Family | DX: E11.621 Type 2 diabetes mellitus with foot ulcer (principal); L97.512 Non-pressure chronic ulcer of other part of right foot with fat layer exposed; L97.521 Non-pressure chronic ulcer of other part of left foot limited to breakdown of skin; E11.622 Type 2 diabetes mellitus with other skin ulcer; L97.811 Non-pressure chronic ulcer of other part of right lower leg limited to breakdown of skin; S40.821D Blister (nonthermal) of right upper arm, subsequent encounter; L84 Corns and callosities; E11.51 Type 2 diabetes mellitus with diabetic peripheral angiopathy without gangrene; E11.69 Type 2 diabetes mellitus with other specified complication; M86.9 Osteomyelitis, unspecified; E03.9 Hypothyroidism, unspecified; E11.40 Type 2 diabetes mellitus with diabetic neuropathy, unspecified; E11.22 Type 2 diabetes mellitus with diabetic chronic kidney disease; I12.9 Hypertensive chronic kidney disease with stage 1 through stage 4 chronic kidney disease, or unspecified chronic kidney disease; N18.30 Chronic kidney disease, stage 3 unspecified; E78.5 Hyperlipidemia, unspecified; J44.9 Chronic obstructive pulmonary disease, unspecified; Z87.891 Personal history of nicotine dependence; Z95.5 Presence of coronary angioplasty implant and graft; Z96.41 Presence of insulin pump (external) (internal); Z89.412 Acquired absence of left great toe; Z90.49 Acquired absence of other specified parts of digestive tract; Z96.641 Presence of right artificial hip joint; X58.XXXD Exposure to other specified factors, subsequent encounter ==

== ENCOUNTER → 2022-06-12 | Outpatient (CLI) | payer OTHER | END | disposition home or self-care (01) | LOC: WOUNDCARE 02:23 | PROVIDERS: ATTEND Nurse Practitioner Family | DX: E11.621 Type 2 diabetes mellitus with foot ulcer (principal); L97.512 Non-pressure chronic ulcer of other part of right foot with fat layer exposed; L97.521 Non-pressure chronic ulcer of other part of left foot limited to breakdown of skin; E11.622 Type 2 diabetes mellitus with other skin ulcer; L97.811 Non-pressure chronic ulcer of other part of right lower leg limited to breakdown of skin; S40.821D Blister (nonthermal) of right upper arm, subsequent encounter; L84 Corns and callosities; E11.51 Type 2 diabetes mellitus with diabetic peripheral angiopathy without gangrene; E11.69 Type 2 diabetes mellitus with other specified complication; M86.9 Osteomyelitis, unspecified; E11.40 Type 2 diabetes mellitus with diabetic neuropathy, unspecified; E11.22 Type 2 diabetes mellitus with diabetic chronic kidney disease; I12.9 Hypertensive chronic kidney disease with stage 1 through stage 4 chronic kidney disease, or unspecified chronic kidney disease; N18.30 Chronic kidney disease, stage 3 unspecified; E03.9 Hypothyroidism, unspecified; E78.5 Hyperlipidemia, unspecified; J44.9 Chronic obstructive pulmonary disease, unspecified; Z87.891 Personal history of nicotine dependence; Z95.5 Presence of coronary angioplasty implant and graft; Z96.641 Presence of right artificial hip joint; Z90.49 Acquired absence of other specified parts of digestive tract; Z89.412 Acquired absence of left great toe; Z89.422 Acquired absence of other left toe(s); X58.XXXD Exposure to other specified factors, subsequent encounter ==

== ENCOUNTER 2022-06-18 16:45 | Inpatient (IN) | payer OTHER ==
[~2022-06-18] VITALS: Ht 182.8 cm; Wt 112.3 kg
[2022-06-18 16:54] VITALS: BP 137/65
[2022-06-18 17:45] LABS: BASO % 0.2 % (0.0-1.0); EOS # 0.1 10*3/uL (0.0-0.4); HEMATOCRIT 34.4 % (42.0-52.0); LYMPH # 0.8 10*3/uL (1.3-4.4); MEAN CELL VOLUME 87.8 fl (80.0-94.0); MEAN CORPUSCULAR HGB 28.1 pg (27.0-31.0); MEAN PLATELET VOLUME 10.5 fl (9.6-12.3); MONO % 7.5 % (3.0-9.0); NEUT # 11.1 10*3/uL (2.3-7.9); NEUT % 84.5 % (47.0-73.0); PLATELET COUNT AUTOMATED 197 10*3/uL (130-400); RED BLOOD COUNT 3.92 10*6/uL (4.50-5.90); RED CELL DISTRI WIDTH 17.6 % (0-14.5); WHITE BLOOD COUNT 13.1 10*3/uL (4.8-10.8)
[2022-06-18 17:55] LABS: INTERNATIONAL NORM RATIO 1.5 (2.0-3.5)
[2022-06-18 18:01] LABS: CREATININE 2.24 mg/dL (0.70-1.30); POTASSIUM 4.8 mmol/L (3.5-5.1); TOTAL PROTEIN 6.1 gm/dL (6.4-8.2)
[2022-06-18 18:09] LABS: THYROID STIM HORMONE (HS) 1.08 uIU/ml (0.358-4.75)
[2022-06-18 18:47] VITALS: BP 136/85
[2022-06-18 20:35] VITALS: BP 125/71
[2022-06-18 21:00] VITALS: BP 138/76
[2022-06-18] MEDS ORDERED: INSULIN AS100 UNIT/5 SQ (22:26)
[2022-06-18] MEDS ORDERED: CARDIZEM CD120 M2 PO (22:37)
[2022-06-18] MEDS ORDERED: INSULIN LI100 UNIT/3 SQ (22:41)
[2022-06-18] MEDS ORDERED: HUMALOG 751 UNIT/0.0 SC (22:42)
[2022-06-19] VITALS: BP 125/88
[2022-06-19 02:37] LABS: BILIRUBIN Negative (Negative); BLOOD Negative (Negative); CLARITY Clear (Clear); COLOR Yellow (Yellow); GLUCOSE 3+ (Negative); KETONE Negative (Negative); LEUKO ESTERASE Negative (Negative); NITRITE Negative (Negative); PH 6.5 (4.5-8.0); UROBILINOGEN 0.2 E.U./dl (0.0-1.0)
[2022-06-19 02:54] LABS: BACTERIA 1+; FINE GRANULAR CAST 0-2
[2022-06-19 06:04] LABS: CREATININE 1.83 mg/dL (0.70-1.30); POTASSIUM 3.9 mmol/L (3.5-5.1); TOTAL PROTEIN 5.8 gm/dL (6.4-8.2)
[2022-06-19 06:10] LABS: BASO % 0.2 % (0.0-1.0); EOS # 0.2 10*3/uL (0.0-0.4); EOS % 2.6 % (1.0-4.0); HEMATOCRIT 32.8 % (42.0-52.0); LYMPH # 1.1 10*3/uL (1.3-4.4); MEAN CELL VOLUME 89.4 fl (80.0-94.0); MEAN CORPUSCULAR HGB 27.8 pg (27.0-31.0); MEAN CORPUSCULAR HGB CONC 31.1 g/dl (33.0-37.0); MEAN PLATELET VOLUME 11.5 fl (9.6-12.3); MONO # 0.6 10*3/uL (0.1-1.0); NEUT # 6.2 10*3/uL (2.3-7.9); NEUT % 75.6 % (47.0-73.0); PLATELET COUNT AUTOMATED 178 10*3/uL (130-400); RED BLOOD COUNT 3.67 10*6/uL (4.50-5.90); RED CELL DISTRI WIDTH 17.6 % (0-14.5); WHITE BLOOD COUNT 8.2 10*3/uL (4.8-10.8)
[2022-06-19 08:00] VITALS: BP 104/58
[2022-06-19 12:00] VITALS: BP 129/76
[2022-06-19 16:00] VITALS: BP 146/75
[2022-06-19 20:00] VITALS: BP 150/69
[2022-06-20] VITALS: BP 139/67
[2022-06-20 06:22] LABS: CREATININE 2.02 mg/dL (0.70-1.30)
[2022-06-20 06:23] LABS: BASO % 0.2 % (0.0-1.0); EOS # 0.2 10*3/uL (0.0-0.4); EOS % 1.8 % (1.0-4.0); HEMATOCRIT 33.7 % (42.0-52.0); LYMPH # 1.1 10*3/uL (1.3-4.4); LYMPH % 11.7 % (27.0-41.0); MEAN CELL VOLUME 90.6 fl (80.0-94.0); MEAN CORPUSCULAR HGB CONC 30.9 g/dl (33.0-37.0); MEAN PLATELET VOLUME 11.5 fl (9.6-12.3); MONO # 0.9 10*3/uL (0.1-1.0); MONO % 9.7 % (3.0-9.0); NEUT # 6.9 10*3/uL (2.3-7.9); NEUT % 75.7 % (47.0-73.0); RED BLOOD COUNT 3.72 10*6/uL (4.50-5.90); WHITE BLOOD COUNT 9.1 10*3/uL (4.8-10.8)
[2022-06-20 06:57] LABS: PLATELET COUNT AUTOMATED 236 10*3/uL (130-400)
[2022-06-20 07:06] LABS: POTASSIUM 5.7 mmol/L (3.5-5.1)
[2022-06-20 08:00] VITALS: BP 133/87
[2022-06-20 12:00] VITALS: BP 106/68
[2022-06-20 16:00] VITALS: BP 109/58
[2022-06-20 20:00] VITALS: BP 133/59; BP 143/55
[2022-06-21] VITALS: BP 147/43
[2022-06-21 06:25] LABS: BASO % 0.3 % (0.0-1.0); EOS # 0.2 10*3/uL (0.0-0.4); EOS % 1.6 % (1.0-4.0); HEMATOCRIT 31.6 % (42.0-52.0); LYMPH # 0.7 10*3/uL (1.3-4.4); LYMPH % 7.4 % (27.0-41.0); MEAN CELL VOLUME 92.4 fl (80.0-94.0); MEAN CORPUSCULAR HGB 27.8 pg (27.0-31.0); MEAN CORPUSCULAR HGB CONC 30.1 g/dl (33.0-37.0); MEAN PLATELET VOLUME 10.7 fl (9.6-12.3); MONO # 0.8 10*3/uL (0.1-1.0); NEUT # 7.4 10*3/uL (2.3-7.9); NEUT % 80.9 % (47.0-73.0); PLATELET COUNT AUTOMATED 231 10*3/uL (130-400); RED BLOOD COUNT 3.42 10*6/uL (4.50-5.90); WHITE BLOOD COUNT 9.1 10*3/uL (4.8-10.8)
[2022-06-21 06:30] LABS: CREATININE 2.27 mg/dL (0.70-1.30); POTASSIUM 5.1 mmol/L (3.5-5.1)
[2022-06-21 08:00] VITALS: BP 114/48
[2022-06-21 12:00] VITALS: BP 121/76
[2022-06-21 16:00] VITALS: BP 152/71
[2022-06-21 20:00] VITALS: BP 131/56
[2022-06-22] VITALS: BP 121/57
[2022-06-22 06:53] LABS: BASO % 0.1 % (0.0-1.0); EOS # 0.2 10*3/uL (0.0-0.4); EOS % 1.9 % (1.0-4.0); HEMATOCRIT 27.4 % (42.0-52.0); LYMPH # 0.8 10*3/uL (1.3-4.4); LYMPH % 9.3 % (27.0-41.0); MEAN CELL VOLUME 90.4 fl (80.0-94.0); MEAN CORPUSCULAR HGB 27.7 pg (27.0-31.0); MEAN CORPUSCULAR HGB CONC 30.7 g/dl (33.0-37.0); MEAN PLATELET VOLUME 11.1 fl (9.6-12.3); MONO # 0.7 10*3/uL (0.1-1.0); MONO % 8.6 % (3.0-9.0); NEUT # 6.4 10*3/uL (2.3-7.9); NEUT % 79.6 % (47.0-73.0); PLATELET COUNT AUTOMATED 199 10*3/uL (130-400); RED BLOOD COUNT 3.03 10*6/uL (4.50-5.90); WHITE BLOOD COUNT 8.1 10*3/uL (4.8-10.8)
[2022-06-22 07:12] LABS: POTASSIUM 5.2 mmol/L (3.5-5.1)
[2022-06-22 07:19] LABS: CREATININE 1.94 mg/dL (0.70-1.30)
[2022-06-22 08:00] VITALS: BP 147/90
[2022-06-22 12:00] VITALS: BP 137/61
== END 2022-06-22 16:30 | disposition left against medical advice (07) | DRG 871 ==
LOC: ED 16:45 → EDHOLD 18:45 → 5E 18:45
PROVIDERS: Emergency Medicine; Internal Medicine; ADMIT Internal Medicine; ATTEND Internal Medicine
DX: A41.9 Sepsis, unspecified organism (principal); E43 Unspecified severe protein-calorie malnutrition; N17.0 Acute kidney failure with tubular necrosis; L03.115 Cellulitis of right lower limb; M86.171 Other acute osteomyelitis, right ankle and foot; I13.0 Hypertensive heart and chronic kidney disease with heart failure and stage 1 through stage 4 chronic kidney disease, or unspecified chronic kidney disease; I50.32 Chronic diastolic (congestive) heart failure; R65.20 Severe sepsis without septic shock; L97.519 Non-pressure chronic ulcer of other part of right foot with unspecified severity; E83.42 Hypomagnesemia; E11.51 Type 2 diabetes mellitus with diabetic peripheral angiopathy without gangrene; E87.5 Hyperkalemia; I48.91 Unspecified atrial fibrillation; E66.9 Obesity, unspecified; E11.621 Type 2 diabetes mellitus with foot ulcer; K21.9 Gastro-esophageal reflux disease without esophagitis; E11.69 Type 2 diabetes mellitus with other specified complication; N40.0 Benign prostatic hyperplasia without lower urinary tract symptoms; I25.10 Atherosclerotic heart disease of native coronary artery without angina pectoris; N18.30 Chronic kidney disease, stage 3 unspecified; E11.22 Type 2 diabetes mellitus with diabetic chronic kidney disease; J44.9 Chronic obstructive pulmonary disease, unspecified; Z88.0 Allergy status to penicillin; Z88.1 Allergy status to other antibiotic agents; Z88.8 Allergy status to other drugs, medicaments and biological substances; Z95.5 Presence of coronary angioplasty implant and graft; Z90.49 Acquired absence of other specified parts of digestive tract; Z68.33 Body mass index [BMI] 33.0-33.9, adult

== ENCOUNTER 2022-07-19 13:13 | Emergency (ER) | payer OTHER ==
[~2022-07-19] VITALS: Ht 182.8 cm; Wt 108.9 kg
[~2022-07-19 13:13] MED LIST changes: +CUBICIN RF500 MG IV; +Hydralazine Hyd25 MG PO; +INSULIN AS100 UNIT/5 SC; +INSULIN AS100 UNIT/5 SQ; +JARDIANCE10 MG PO; +MAGNESIUM250 M1 PO; +VITAMIN D350 MC2 PO
[2022-07-19 13:19] VITALS: BP 133/55
== END 2022-07-19 14:40 | disposition left against medical advice (07) ==
LOC: ED 13:13
DX: Z48.00 Encounter for change or removal of nonsurgical wound dressing (principal); Z53.21 Procedure and treatment not carried out due to patient leaving prior to being seen by health care provider

== ENCOUNTER → 2022-07-22 | Outpatient (CLI) | payer OTHER | END | disposition home or self-care (01) | LOC: WOUNDCARE 11:57 | PROVIDERS: ATTEND Nurse Practitioner Family | DX: E11.621 Type 2 diabetes mellitus with foot ulcer (principal); L97.521 Non-pressure chronic ulcer of other part of left foot limited to breakdown of skin; L89.893 Pressure ulcer of other site, stage 3; E11.51 Type 2 diabetes mellitus with diabetic peripheral angiopathy without gangrene; E11.40 Type 2 diabetes mellitus with diabetic neuropathy, unspecified; E03.9 Hypothyroidism, unspecified; E78.5 Hyperlipidemia, unspecified; E11.22 Type 2 diabetes mellitus with diabetic chronic kidney disease; I12.9 Hypertensive chronic kidney disease with stage 1 through stage 4 chronic kidney disease, or unspecified chronic kidney disease; N18.30 Chronic kidney disease, stage 3 unspecified; J44.9 Chronic obstructive pulmonary disease, unspecified; K21.9 Gastro-esophageal reflux disease without esophagitis; F41.9 Anxiety disorder, unspecified; F32.9 Major depressive disorder, single episode, unspecified; Z87.891 Personal history of nicotine dependence; Z95.5 Presence of coronary angioplasty implant and graft; Z96.641 Presence of right artificial hip joint; Z90.49 Acquired absence of other specified parts of digestive tract; Z89.412 Acquired absence of left great toe; Z89.422 Acquired absence of other left toe(s) ==

== ENCOUNTER 2022-07-28 21:52 | Inpatient (IN) | payer OTHER ==
[2022-07-28 21:57] VITALS: BP 119/62
[2022-07-28 22:54] LABS: HEMATOCRIT 23.1 % (42.0-52.0); MEAN CELL VOLUME 92.4 fl (80.0-94.0); MEAN CORPUSCULAR HGB 27.6 pg (27.0-31.0); MEAN CORPUSCULAR HGB CONC 29.9 g/dl (33.0-37.0); MEAN PLATELET VOLUME 11.1 fl (9.6-12.3); PLATELET COUNT AUTOMATED 172 10*3/uL (130-400); RED CELL DISTRI WIDTH 19.1 % (0-14.5); WHITE BLOOD COUNT 9.3 10*3/uL (4.8-10.8)
[2022-07-28 22:59] LABS: MANUAL DIFF REFLEX YES
[2022-07-28 23:10] LABS: CREATININE 2.75 mg/dL (0.70-1.30); POTASSIUM 4.6 mmol/L (3.5-5.1); TOTAL PROTEIN 5.4 gm/dL (6.4-8.2)
[2022-07-28 23:15] LABS: PLATELET SUFFICIENCY NORMAL (NORMAL); TOTAL CELLS COUNTED 100 #CELLS
[2022-07-28 23:16] LABS: MICROCYTOSIS SLIGHT
[2022-07-28 23:51] VITALS: BP 122/65
[2022-07-29] VITALS (14 sets, daily range): BP systolic 109–151; BP diastolic 60–99
[2022-07-29 00:54] LABS: BILIRUBIN Negative (Negative); BLOOD Negative (Negative); CLARITY Clear (Clear); COLOR Yellow (Yellow); GLUCOSE 3+ (Negative); KETONE Negative (Negative); LEUKO ESTERASE Negative (Negative); NITRITE Negative (Negative); PH 6.5 (4.5-8.0); UROBILINOGEN 0.2 E.U./dl (0.0-1.0)
[2022-07-29 01:05] LABS: RBC 0-2 rbc/hpf (0-2); WBC 0-2 wbc/hpf (0-5)
[2022-07-29 07:34] LABS: BASO % 0.1 % (0.0-1.0); HEMATOCRIT 28.4 % (42.0-52.0); LYMPH # 0.9 10*3/uL (1.3-4.4); LYMPH % 8.8 % (27.0-41.0); MEAN CELL VOLUME 91.3 fl (80.0-94.0); MEAN CORPUSCULAR HGB 28.3 pg (27.0-31.0); MEAN PLATELET VOLUME 11.4 fl (9.6-12.3); MONO # 0.4 10*3/uL (0.1-1.0); MONO % 4.2 % (3.0-9.0); NEUT % 85.9 % (47.0-73.0); NUCLEATED RED BLOOD CELL 0.2 % (0.0-0.0); PLATELET COUNT AUTOMATED 166 10*3/uL (130-400); RED BLOOD COUNT 3.11 10*6/uL (4.50-5.90); RED CELL DISTRI WIDTH 18.2 % (0-14.5); WHITE BLOOD COUNT 10.5 10*3/uL (4.8-10.8)
[2022-07-29 07:55] LABS: CREATININE 2.26 mg/dL (0.70-1.30); POTASSIUM 4.4 mmol/L (3.5-5.1); TOTAL PROTEIN 5.6 gm/dL (6.4-8.2)
[2022-07-30] VITALS: BP 115/69
[2022-07-30 06:36] LABS: BASO % 0.1 % (0.0-1.0); EOS # 0.2 10*3/uL (0.0-0.4); EOS % 2.1 % (1.0-4.0); HEMATOCRIT 31.5 % (42.0-52.0); LYMPH # 1.1 10*3/uL (1.3-4.4); LYMPH % 11.3 % (27.0-41.0); MEAN CELL VOLUME 92.6 fl (80.0-94.0); MEAN CORPUSCULAR HGB 28.2 pg (27.0-31.0); MEAN CORPUSCULAR HGB CONC 30.5 g/dl (33.0-37.0); MEAN PLATELET VOLUME 11.2 fl (9.6-12.3); MONO # 0.3 10*3/uL (0.1-1.0); MONO % 3.3 % (3.0-9.0); NEUT # 7.8 10*3/uL (2.3-7.9); NEUT % 82.3 % (47.0-73.0); PLATELET COUNT AUTOMATED 174 10*3/uL (130-400); RED CELL DISTRI WIDTH 18.6 % (0-14.5); WHITE BLOOD COUNT 9.5 10*3/uL (4.8-10.8)
[2022-07-30 06:56] LABS: CREATININE 1.92 mg/dL (0.70-1.30); POTASSIUM 4.4 mmol/L (3.5-5.1); TOTAL PROTEIN 5.5 gm/dL (6.4-8.2)
[2022-07-30 08:00] VITALS: BP 133/84
[2022-07-30 08:39] LABS: VITAMIN D, 25-HYDROXY 50.2 ng/mL (30-100)
[2022-07-30] MEDS ORDERED: NYST SUSP PO ×2 (10:46)
[2022-07-30 12:00] VITALS: BP 118/60; BP 124/107
== END 2022-07-30 13:00 | disposition home health service (06) | DRG 637 ==
LOC: ED 21:52 → EDHOLD 07-29 00:55 → 4E 07-29 00:55
PROVIDERS: Emergency Medicine; Student in an Organized Health Care Education/Training Program; ADMIT Internal Medicine; ATTEND Internal Medicine
PROC: 0DJ08ZZ Inspection of Upper Intestinal Tract, Via Natural or Artificial Opening Endoscopic (ICD-10-PCS; principal; 2022-07-29)
PROC: 30233N1 Transfusion of Nonautologous Red Blood Cells into Peripheral Vein, Percutaneous Approach (ICD-10-PCS; 2022-07-29)
DX: E11.65 Type 2 diabetes mellitus with hyperglycemia (principal); E43 Unspecified severe protein-calorie malnutrition; N17.0 Acute kidney failure with tubular necrosis; I13.0 Hypertensive heart and chronic kidney disease with heart failure and stage 1 through stage 4 chronic kidney disease, or unspecified chronic kidney disease; I50.32 Chronic diastolic (congestive) heart failure; E87.1 Hypo-osmolality and hyponatremia; D64.9 Anemia, unspecified; E11.22 Type 2 diabetes mellitus with diabetic chronic kidney disease; N18.32 Chronic kidney disease, stage 3b; E11.621 Type 2 diabetes mellitus with foot ulcer; L97.519 Non-pressure chronic ulcer of other part of right foot with unspecified severity; I25.10 Atherosclerotic heart disease of native coronary artery without angina pectoris; N40.0 Benign prostatic hyperplasia without lower urinary tract symptoms; E11.40 Type 2 diabetes mellitus with diabetic neuropathy, unspecified; F41.1 Generalized anxiety disorder; K21.9 Gastro-esophageal reflux disease without esophagitis; G47.33 Obstructive sleep apnea (adult) (pediatric); Z96.641 Presence of right artificial hip joint; E66.9 Obesity, unspecified; E87.8 Other disorders of electrolyte and fluid balance, not elsewhere classified; J44.9 Chronic obstructive pulmonary disease, unspecified; F10.10 Alcohol abuse, uncomplicated; E78.5 Hyperlipidemia, unspecified; B37.9 Candidiasis, unspecified; K29.70 Gastritis, unspecified, without bleeding; I87.2 Venous insufficiency (chronic) (peripheral); E11.51 Type 2 diabetes mellitus with diabetic peripheral angiopathy without gangrene; Z88.1 Allergy status to other antibiotic agents; Z88.0 Allergy status to penicillin; Z88.8 Allergy status to other drugs, medicaments and biological substances; Z79.4 Long term (current) use of insulin; Z09 Encounter for follow-up examination after completed treatment for conditions other than malignant neoplasm; Z95.5 Presence of coronary angioplasty implant and graft; Z80.0 Family history of malignant neoplasm of digestive organs; Z82.49 Family history of ischemic heart disease and other diseases of the circulatory system

== ENCOUNTER 2022-07-31 21:42 | Emergency (ER) | payer OTHER ==
[~2022-07-31] VITALS: Ht 182.8 cm; Wt 112.9 kg
[~2022-07-31 21:42] MED LIST changes: +NYST SUSP PO
[2022-07-31 22:07] LABS: BASO % 0.1 % (0.0-1.0); HEMATOCRIT 24.8 % (42.0-52.0); LYMPH % 7.8 % (27.0-41.0); MEAN CELL VOLUME 89.9 fl (80.0-94.0); MEAN CORPUSCULAR HGB 28.6 pg (27.0-31.0); MEAN CORPUSCULAR HGB CONC 31.9 g/dl (33.0-37.0); MEAN PLATELET VOLUME 11.5 fl (9.6-12.3); MONO # 0.4 10*3/uL (0.1-1.0); MONO % 3.3 % (3.0-9.0); NEUT # 11.4 10*3/uL (2.3-7.9); NEUT % 88.2 % (47.0-73.0); PLATELET COUNT AUTOMATED 162 10*3/uL (130-400); RED BLOOD COUNT 2.76 10*6/uL (4.50-5.90); RED CELL DISTRI WIDTH 17.5 % (0-14.5); WHITE BLOOD COUNT 12.9 10*3/uL (4.8-10.8)
[2022-07-31 22:24] LABS: CREATININE 2.46 mg/dL (0.70-1.30); POTASSIUM 3.8 mmol/L (3.5-5.1); TOTAL PROTEIN 5.3 gm/dL (6.4-8.2)
[2022-07-31 22:32] VITALS: BP 107/58
== END 2022-08-01 01:23 | disposition home or self-care (01) ==
LOC: ED 21:42
PROVIDERS: Internal Medicine
DX: L76.22 Postprocedural hemorrhage of skin and subcutaneous tissue following other procedure (principal); N17.9 Acute kidney failure, unspecified; N18.9 Chronic kidney disease, unspecified; E11.65 Type 2 diabetes mellitus with hyperglycemia; D72.829 Elevated white blood cell count, unspecified; E44.0 Moderate protein-calorie malnutrition; D64.9 Anemia, unspecified; E11.621 Type 2 diabetes mellitus with foot ulcer; L97.519 Non-pressure chronic ulcer of other part of right foot with unspecified severity; E66.9 Obesity, unspecified; Z88.1 Allergy status to other antibiotic agents; Z88.0 Allergy status to penicillin; Z88.8 Allergy status to other drugs, medicaments and biological substances; Z79.899 Other long term (current) drug therapy; Z79.82 Long term (current) use of aspirin; Z79.4 Long term (current) use of insulin; Z95.5 Presence of coronary angioplasty implant and graft; Z90.49 Acquired absence of other specified parts of digestive tract; Z96.641 Presence of right artificial hip joint; Z89.412 Acquired absence of left great toe; Z89.422 Acquired absence of other left toe(s); Z89.421 Acquired absence of other right toe(s); Z68.30 Body mass index [BMI] 30.0-30.9, adult; Z48.01 Encounter for change or removal of surgical wound dressing

== ENCOUNTER → 2022-09-15 | Outpatient (CLI) | payer MEDICARE, OTHER ==
[~2022-09-15] MED LIST changes: +ATORVASTATIN CA80 M1 PO; +CARDIZEM CD180 MG PO; +GABAPENTIN600 MG PO; +HUMULIN 70100 UNIT/1 SC; +HYDROCHLOROTHIA25 M1 PO; +Humalog SQ; +MEROPENEM-500 MG/50 IV
== END | disposition home or self-care (01) ==
LOC: WOUNDCARE 12:03
PROVIDERS: ATTEND Podiatrist Foot & Ankle Surgery
DX: T81.89XA Other complications of procedures, not elsewhere classified, initial encounter (principal); L89.893 Pressure ulcer of other site, stage 3; E11.40 Type 2 diabetes mellitus with diabetic neuropathy, unspecified; E11.22 Type 2 diabetes mellitus with diabetic chronic kidney disease; I12.9 Hypertensive chronic kidney disease with stage 1 through stage 4 chronic kidney disease, or unspecified chronic kidney disease; N18.30 Chronic kidney disease, stage 3 unspecified; E11.51 Type 2 diabetes mellitus with diabetic peripheral angiopathy without gangrene; E03.9 Hypothyroidism, unspecified; E78.5 Hyperlipidemia, unspecified; J44.9 Chronic obstructive pulmonary disease, unspecified; K21.9 Gastro-esophageal reflux disease without esophagitis; F41.9 Anxiety disorder, unspecified; F32.A Depression, unspecified; Z87.891 Personal history of nicotine dependence; Z95.5 Presence of coronary angioplasty implant and graft; Z96.641 Presence of right artificial hip joint; Z90.49 Acquired absence of other specified parts of digestive tract; Z89.412 Acquired absence of left great toe; Z89.422 Acquired absence of other left toe(s); Y92.238 Other place in hospital as the place of occurrence of the external cause; Y83.8 Other surgical procedures as the cause of abnormal reaction of the patient, or of later complication, without mention of misadventure at the time of the procedure

== ENCOUNTER → 2022-09-16 | Outpatient (CLI) | payer MEDICARE, OTHER ==
[2022-09-16 11:33] LABS: BASO % 0.3 % (0.0-1.0); EOS # 0.5 10*3/uL (0.0-0.4); EOS % 5.3 % (1.0-4.0); HEMATOCRIT 29.8 % (42.0-52.0); LYMPH # 2.8 10*3/uL (1.3-4.4); LYMPH % 28.1 % (27.0-41.0); MEAN CELL VOLUME 88.2 fl (80.0-94.0); MEAN CORPUSCULAR HGB 26.6 pg (27.0-31.0); MEAN CORPUSCULAR HGB CONC 30.2 g/dl (33.0-37.0); MEAN PLATELET VOLUME 11.4 fl (9.6-12.3); MONO # 0.7 10*3/uL (0.1-1.0); MONO % 6.9 % (3.0-9.0); NEUT # 5.9 10*3/uL (2.3-7.9); NEUT % 58.9 % (47.0-73.0); PLATELET COUNT AUTOMATED 241 10*3/uL (130-400); RED BLOOD COUNT 3.38 10*6/uL (4.50-5.90); RED CELL DISTRI WIDTH 16.7 % (0-14.5)
== END ==
LOC: LAB 10:54
PROVIDERS: ATTEND Podiatrist Foot & Ankle Surgery
DX: I10 Essential (primary) hypertension (principal); Z79.899 Other long term (current) drug therapy

== ENCOUNTER 2022-09-19 10:58 | Inpatient (IN) | payer MEDICARE, OTHER ==
[~2022-09-19] VITALS: Ht 182.8 cm; Wt 97.3 kg
[2022-09-19 11:06] VITALS: BP 92/43
[2022-09-19 11:34] LABS: BASO # 0.1 10*3/uL (0.0-0.1); BASO % 0.5 % (0.0-1.0); EOS # 0.3 10*3/uL (0.0-0.4); EOS % 3.1 % (1.0-4.0); HEMATOCRIT 30.2 % (42.0-52.0); LYMPH # 2.2 10*3/uL (1.3-4.4); LYMPH % 21.2 % (27.0-41.0); MEAN CELL VOLUME 88.6 fl (80.0-94.0); MEAN CORPUSCULAR HGB 26.4 pg (27.0-31.0); MEAN CORPUSCULAR HGB CONC 29.8 g/dl (33.0-37.0); MEAN PLATELET VOLUME 11.3 fl (9.6-12.3); MONO # 0.7 10*3/uL (0.1-1.0); MONO % 6.3 % (3.0-9.0); NEUT # 7.1 10*3/uL (2.3-7.9); NEUT % 68.5 % (47.0-73.0); PLATELET COUNT AUTOMATED 261 10*3/uL (130-400); RED BLOOD COUNT 3.41 10*6/uL (4.50-5.90); RED CELL DISTRI WIDTH 16.8 % (0-14.5); WHITE BLOOD COUNT 10.4 10*3/uL (4.8-10.8)
[2022-09-19 11:48] LABS: ACT PARTIAL THROMBO TIME 35.8 SECONDS (20.0-32.1); INTERNATIONAL NORM RATIO 1.6 (2.0-3.5)
[2022-09-19 11:58] LABS: CREATININE 1.55 mg/dL (0.70-1.30); POTASSIUM 3.5 mmol/L (3.5-5.1); TOTAL PROTEIN 5.8 gm/dL (6.4-8.2)
[2022-09-19 16:00] VITALS: BP 120/58; BP 124/84
[2022-09-19] MEDS ORDERED: VIBRA-TAB100 MG PO (16:40)
[2022-09-19] MEDS ORDERED: BENZONATATE100 M1 PO (16:40)
[2022-09-19] MEDS ORDERED: HYDR25T PO (16:40)
[2022-09-19 20:00] VITALS: BP 121/56
[2022-09-20] VITALS: BP 102/47
[2022-09-20 06:07] LABS: CREATININE 1.63 mg/dL (0.70-1.30); POTASSIUM 3.5 mmol/L (3.5-5.1)
[2022-09-20 06:24] LABS: BASO % 0.2 % (0.0-1.0); EOS # 0.4 10*3/uL (0.0-0.4); EOS % 4.4 % (1.0-4.0); LYMPH % 24.4 % (27.0-41.0); MEAN CELL VOLUME 88.7 fl (80.0-94.0); MEAN CORPUSCULAR HGB 26.6 pg (27.0-31.0); MEAN PLATELET VOLUME 11.4 fl (9.6-12.3); MONO # 0.6 10*3/uL (0.1-1.0); MONO % 7.8 % (3.0-9.0); NEUT # 5.1 10*3/uL (2.3-7.9); NEUT % 62.6 % (47.0-73.0); PLATELET COUNT AUTOMATED 260 10*3/uL (130-400); RED BLOOD COUNT 3.27 10*6/uL (4.50-5.90); RED CELL DISTRI WIDTH 16.6 % (0-14.5); WHITE BLOOD COUNT 8.1 10*3/uL (4.8-10.8)
[2022-09-20 08:00] VITALS: BP 113/57
[2022-09-20 12:00] VITALS: BP 114/63
[2022-09-20 16:00] VITALS: BP 95/56
[2022-09-20 20:00] VITALS: BP 91/54
[2022-09-21] VITALS (7 sets, daily range): BP systolic 88–130; BP diastolic 40–76
[2022-09-21 06:41] LABS: HEMATOCRIT 30.8 % (42.0-52.0); LYMPH # 0.9 10*3/uL (1.3-4.4); MEAN CORPUSCULAR HGB 26.3 pg (27.0-31.0); MEAN CORPUSCULAR HGB CONC 29.9 g/dl (33.0-37.0); MEAN PLATELET VOLUME 11.2 fl (9.6-12.3); MONO # 0.3 10*3/uL (0.1-1.0); NEUT # 7.2 10*3/uL (2.3-7.9); NEUT % 85.3 % (47.0-73.0); PLATELET COUNT AUTOMATED 284 10*3/uL (130-400); RED CELL DISTRI WIDTH 16.1 % (0-14.5); WHITE BLOOD COUNT 8.4 10*3/uL (4.8-10.8)
[2022-09-21 06:49] LABS: CREATININE 2.18 mg/dL (0.70-1.30)
[2022-09-21 07:02] LABS: POTASSIUM 5.2 mmol/L (3.5-5.1)
[2022-09-21 23:18] LABS: CREATININE 2.74 mg/dL (0.70-1.30)
[2022-09-22] VITALS: BP 102/54
[2022-09-22 04:00] VITALS: BP 127/82
[2022-09-22 05:55] LABS: CREATININE 2.56 mg/dL (0.70-1.30)
[2022-09-22 06:21] LABS: BASO % 0.1 % (0.0-1.0); EOS % 0.1 % (1.0-4.0); HEMATOCRIT 27.8 % (42.0-52.0); LYMPH # 1.2 10*3/uL (1.3-4.4); LYMPH % 9.1 % (27.0-41.0); MEAN CELL VOLUME 89.4 fl (80.0-94.0); MEAN CORPUSCULAR HGB 26.4 pg (27.0-31.0); MEAN CORPUSCULAR HGB CONC 29.5 g/dl (33.0-37.0); MEAN PLATELET VOLUME 11.3 fl (9.6-12.3); MONO # 0.9 10*3/uL (0.1-1.0); MONO % 7.2 % (3.0-9.0); NEUT # 10.7 10*3/uL (2.3-7.9); PLATELET COUNT AUTOMATED 320 10*3/uL (130-400); RED BLOOD COUNT 3.11 10*6/uL (4.50-5.90); RED CELL DISTRI WIDTH 16.1 % (0-14.5); WHITE BLOOD COUNT 12.9 10*3/uL (4.8-10.8)
[2022-09-22 08:00] VITALS: BP 105/69
[2022-09-22 12:00] VITALS: BP 132/72
[2022-09-22 15:59] VITALS: BP 102/58
[2022-09-22 20:00] VITALS: BP 127/93
[2022-09-23] VITALS: BP 131/83
[2022-09-23 08:00] VITALS: BP 106/54
[2022-09-23 09:07] LABS: CREATININE 2.16 mg/dL (0.70-1.30); POTASSIUM 4.3 mmol/L (3.5-5.1)
[2022-09-23] MEDS ORDERED: ERTAPENEM1 GM IV ×2 (12:52→13:32)
[2022-09-23 16:00] VITALS: BP 132/56
[2022-09-23 20:00] VITALS: BP 124/69
[2022-09-24] VITALS: BP 113/49
[2022-09-24 08:00] VITALS: BP 106/79
[2022-09-24 08:52] LABS: MEAN CELL VOLUME 87.2 fl (80.0-94.0); MEAN CORPUSCULAR HGB 26.2 pg (27.0-31.0); MEAN PLATELET VOLUME 11.4 fl (9.6-12.3); PLATELET COUNT AUTOMATED 261 10*3/uL (130-400); RED BLOOD COUNT 2.98 10*6/uL (4.50-5.90); RED CELL DISTRI WIDTH 16.3 % (0-14.5); WHITE BLOOD COUNT 11.6 10*3/uL (4.8-10.8)
[2022-09-24 08:54] LABS: ABG BASE EXCESS -7.4 mmol/L (-2.0-2.0); ARTERIAL BLOOD GAS PH 7.323 (7.35-7.45); ARTERIAL BLOOD GAS PO2 110.4 (80-90)
[2022-09-24 08:55] LABS: MANUAL DIFF REFLEX YES
[2022-09-24 09:12] LABS: CREATININE 1.63 mg/dL (0.70-1.30)
[2022-09-24 09:18] LABS: POTASSIUM 5.5 mmol/L (3.5-5.1)
[2022-09-24 09:34] LABS: BURR CELLS FEW; OVALOCYTES FEW; PLATELET SUFFICIENCY NORMAL (NORMAL); POLYCHROMASIA SLIGHT; SCHISTOCYTES FEW; TOTAL CELLS COUNTED 100 #CELLS
[2022-09-24 12:00] VITALS: BP 137/65
[2022-09-24 16:00] VITALS: BP 103/35
[2022-09-24 19:06] LABS: CREATININE 1.92 mg/dL (0.70-1.30); POTASSIUM 4.6 mmol/L (3.5-5.1)
[2022-09-24 20:00] VITALS: BP 127/61
[2022-09-25] VITALS: BP 139/57
[2022-09-25 08:00] VITALS: BP 143/88
[2022-09-25 12:00] VITALS: BP 144/70
[2022-09-25 16:00] VITALS: BP 103/61
[2022-09-25 20:00] VITALS: BP 144/73
[2022-09-26] VITALS: BP 139/72
[2022-09-26 06:27] LABS: BASO % 0.1 % (0.0-1.0); HEMATOCRIT 25.2 % (42.0-52.0); LYMPH # 0.5 10*3/uL (1.3-4.4); LYMPH % 6.7 % (27.0-41.0); MEAN CORPUSCULAR HGB 25.9 pg (27.0-31.0); MEAN CORPUSCULAR HGB CONC 30.2 g/dl (33.0-37.0); MEAN PLATELET VOLUME 11.1 fl (9.6-12.3); MONO # 0.2 10*3/uL (0.1-1.0); MONO % 2.4 % (3.0-9.0); NEUT # 7.1 10*3/uL (2.3-7.9); NEUT % 88.9 % (47.0-73.0); PLATELET COUNT AUTOMATED 323 10*3/uL (130-400); RED BLOOD COUNT 2.93 10*6/uL (4.50-5.90); RED CELL DISTRI WIDTH 16.3 % (0-14.5)
[2022-09-26 06:36] LABS: CREATININE 1.59 mg/dL (0.70-1.30); POTASSIUM 4.4 mmol/L (3.5-5.1)
[2022-09-26 08:00] VITALS: BP 138/86
[2022-09-26 12:00] VITALS: BP 137/49
[2022-09-26 16:00] VITALS: BP 131/71
[2022-09-26 20:00] VITALS: BP 133/94
[2022-09-27] VITALS (8 sets, daily range): BP systolic 114–153; BP diastolic 50–84
[2022-09-27 05:27] LABS: BUN 52 mg/dl (7-24); CHLORIDE 110 mmol/L (98-107); CREATININE 1.41 mg/dL (0.70-1.30); POTASSIUM 4.6 mmol/L (3.5-5.1); SODIUM 144 mmol/L (136-145)
[2022-09-27 06:09] LABS: HEMATOCRIT 23.9 % (42.0-52.0); MEAN CELL VOLUME 86.6 fl (80.0-94.0); MEAN CORPUSCULAR HGB 25.7 pg (27.0-31.0); MEAN CORPUSCULAR HGB CONC 29.7 g/dl (33.0-37.0); MEAN PLATELET VOLUME 11.1 fl (9.6-12.3); NUCLEATED RED BLOOD CELL 0.3 % (0.0-0.0); PLATELET COUNT AUTOMATED 294 10*3/uL (130-400); RED BLOOD COUNT 2.76 10*6/uL (4.50-5.90); RED CELL DISTRI WIDTH 16.2 % (0-14.5); WHITE BLOOD COUNT 6.3 10*3/uL (4.8-10.8)
[2022-09-27 06:23] LABS: MANUAL DIFF REFLEX YES
[2022-09-27 07:01] LABS: MICROCYTOSIS SLIGHT; PLATELET SUFFICIENCY NORMAL (NORMAL); TOTAL CELLS COUNTED 100 #CELLS
[2022-09-27 07:02] LABS: BURR CELLS FEW; OVALOCYTES FEW
[2022-09-27 07:03] LABS: POLYCHROMASIA SLIGHT
[2022-09-27 17:38] LABS: BILIRUBIN Negative (Negative); BLOOD Negative (Negative); CLARITY Turbid (Clear); COLOR Yellow (Yellow); GLUCOSE 2+ (Negative); KETONE Negative (Negative); LEUKO ESTERASE 1+ (Negative); NITRITE Negative (Negative); PH 6.5 (4.5-8.0); UROBILINOGEN 0.2 E.U./dl (0.0-1.0)
[2022-09-27 18:16] LABS: BACTERIA 1+; YEAST 4+
[2022-09-28 05:41] LABS: BUN 44 mg/dl (7-24); CHLORIDE 109 mmol/L (98-107); CREATININE 1.11 mg/dL (0.70-1.30); POTASSIUM 4.4 mmol/L (3.5-5.1); SODIUM 142 mmol/L (136-145)
[2022-09-28 06:20] LABS: HEMATOCRIT 24.5 % (42.0-52.0); MEAN CELL VOLUME 86.9 fl (80.0-94.0); MEAN CORPUSCULAR HGB 25.5 pg (27.0-31.0); MEAN CORPUSCULAR HGB CONC 29.4 g/dl (33.0-37.0); MEAN PLATELET VOLUME 11.4 fl (9.6-12.3); NUCLEATED RED BLOOD CELL 0.4 % (0.0-0.0); PLATELET COUNT AUTOMATED 278 10*3/uL (130-400); RED BLOOD COUNT 2.82 10*6/uL (4.50-5.90); RED CELL DISTRI WIDTH 16.1 % (0-14.5); WHITE BLOOD COUNT 8.9 10*3/uL (4.8-10.8)
[2022-09-28 06:29] LABS: MANUAL DIFF REFLEX YES
[2022-09-28 07:25] LABS: PLATELET SUFFICIENCY NORMAL (NORMAL); POLYCHROMASIA SLIGHT; TOTAL CELLS COUNTED 100 #CELLS
[2022-09-28 07:26] LABS: BURR CELLS FEW; OVALOCYTES FEW; SCHISTOCYTES FEW
[2022-09-28 08:00] VITALS: BP 151/75
[2022-09-28 12:00] VITALS: BP 110/50
[2022-09-28 12:05] LABS: ACID FAST SPEC PROCESSING Tissue Grinding (.)
[2022-09-28 12:05] LABS: ACID FAST SPEC PROCESSING Tissue Grinding (.)
[2022-09-28 16:00] VITALS: BP 121/76
[2022-09-28 20:00] VITALS: BP 116/67
[2022-09-29] VITALS: BP 115/74
[2022-09-29 04:48] LABS: HEMATOCRIT 25.6 % (42.0-52.0); MEAN CELL VOLUME 88.3 fl (80.0-94.0); MEAN CORPUSCULAR HGB 25.9 pg (27.0-31.0); MEAN CORPUSCULAR HGB CONC 29.3 g/dl (33.0-37.0); MEAN PLATELET VOLUME 11.1 fl (9.6-12.3); NUCLEATED RED BLOOD CELL 0.1 10*3/uL (0.0-0.0); NUCLEATED RED BLOOD CELL 0.5 % (0.0-0.0); PLATELET COUNT AUTOMATED 259 10*3/uL (130-400); RED CELL DISTRI WIDTH 16.5 % (0-14.5); WHITE BLOOD COUNT 12.2 10*3/uL (4.8-10.8)
[2022-09-29 04:50] LABS: MANUAL DIFF REFLEX YES
[2022-09-29 05:29] LABS: BUN 41 mg/dl (7-24); CHLORIDE 106 mmol/L (98-107); POTASSIUM 4.8 mmol/L (3.5-5.1); SODIUM 141 mmol/L (136-145)
[2022-09-29 06:23] LABS: BURR CELLS FEW; OVALOCYTES FEW; POLYCHROMASIA SLIGHT; TOTAL CELLS COUNTED 100 #CELLS; TOXIC GRANULATION SLIGHT; VACUOLATION OF NEUTROPHILS SLIGHT
[2022-09-29 06:24] LABS: PLATELET SUFFICIENCY NORMAL (NORMAL); SCHISTOCYTES FEW
[2022-09-29 08:00] VITALS: BP 148/92
[2022-09-29 12:00] VITALS: BP 136/69
[2022-09-29 16:00] VITALS: BP 82/53
[2022-09-29 16:21] VITALS: BP 98/60
[2022-09-29 20:00] VITALS: BP 114/46
[2022-09-29 20:08] LABS: BILIRUBIN Negative (Negative); BLOOD Negative (Negative); CLARITY Clear (Clear); COLOR Yellow (Yellow); GLUCOSE Negative (Negative); KETONE Trace (Negative); LEUKO ESTERASE 2+ (Negative); NITRITE Negative (Negative); PH 6.5 (4.5-8.0); SPECIFIC GRAVITY 1.015 (1.001-1.030)
[2022-09-29 20:18] LABS: YEAST 3+
[2022-09-29 20:19] LABS: EPITHELIAL CELLS 0-2; WBC 31-40 wbc/hpf (0-5)
[2022-09-29 20:20] LABS: BACTERIA TRACE
[2022-09-30] VITALS: BP 122/46
[2022-09-30 06:26] LABS: MEAN CELL VOLUME 87.5 fl (80.0-94.0); MEAN CORPUSCULAR HGB 25.3 pg (27.0-31.0); MEAN CORPUSCULAR HGB CONC 28.8 g/dl (33.0-37.0); MEAN PLATELET VOLUME 11.3 fl (9.6-12.3); PLATELET COUNT AUTOMATED 260 10*3/uL (130-400); RED BLOOD COUNT 2.97 10*6/uL (4.50-5.90); RED CELL DISTRI WIDTH 16.4 % (0-14.5); WHITE BLOOD COUNT 14.8 10*3/uL (4.8-10.8)
[2022-09-30 06:32] LABS: BUN 38 mg/dl (7-24); CHLORIDE 105 mmol/L (98-107); CREATININE 1.08 mg/dL (0.70-1.30); MANUAL DIFF REFLEX YES; POTASSIUM 5.1 mmol/L (3.5-5.1); SGPT/ALT 75 U/L (12-78); SODIUM 138 mmol/L (136-145); TOTAL PROTEIN 4.8 gm/dL (6.4-8.2)
[2022-09-30 06:33] LABS: ALKALINE PHOSPHATASE 97 U/L (45-117); CPK 41 U/L (39-308)
[2022-09-30 07:17] LABS: PLATELET SUFFICIENCY NORMAL (NORMAL); POLYCHROMASIA SLIGHT; TOTAL CELLS COUNTED 100 #CELLS; TOXIC GRANULATION SLIGHT
[2022-09-30 07:18] LABS: OVALOCYTES FEW
[2022-09-30 08:00] VITALS: BP 118/42
[2022-09-30 12:00] VITALS: BP 122/56
[2022-09-30 16:00] VITALS: BP 142/60
[2022-09-30 20:00] VITALS: BP 133/92
[2022-10-01 07:26] LABS: HEMATOCRIT 30.7 % (42.0-52.0); MEAN CELL VOLUME 87.5 fl (80.0-94.0); MEAN CORPUSCULAR HGB 25.4 pg (27.0-31.0); MEAN PLATELET VOLUME 10.9 fl (9.6-12.3); PLATELET COUNT AUTOMATED 258 10*3/uL (130-400); RED BLOOD COUNT 3.51 10*6/uL (4.50-5.90); RED CELL DISTRI WIDTH 16.8 % (0-14.5); WHITE BLOOD COUNT 25.8 10*3/uL (4.8-10.8)
[2022-10-01 07:27] LABS: MANUAL DIFF REFLEX YES
[2022-10-01 07:39] LABS: BUN 31 mg/dl (7-24); CHLORIDE 104 mmol/L (98-107); CREATININE 1.23 mg/dL (0.70-1.30); POTASSIUM 4.8 mmol/L (3.5-5.1); SODIUM 136 mmol/L (136-145)
[2022-10-01 07:50] LABS: BURR CELLS FEW; OVALOCYTES FEW; PLATELET SUFFICIENCY NORMAL (NORMAL); POLYCHROMASIA SLIGHT; SCHISTOCYTES FEW; TOTAL CELLS COUNTED 100 #CELLS; TOXIC GRANULATION MODERATE
[2022-10-01 08:00] VITALS: BP 130/51
[2022-10-01 12:00] VITALS: BP 110/64
[2022-10-01 16:00] VITALS: BP 104/56
[2022-10-01 20:00] VITALS: BP 113/69
[2022-10-02] VITALS: BP 114/52
[2022-10-02 06:15] LABS: CHLORIDE 103 mmol/L (98-107); POTASSIUM 4.3 mmol/L (3.5-5.1); SODIUM 135 mmol/L (136-145)
[2022-10-02 06:18] LABS: BASO % 0.1 % (0.0-1.0); EOS # 0.6 10*3/uL (0.0-0.4); EOS % 3.9 % (1.0-4.0); HEMATOCRIT 24.5 % (42.0-52.0); LYMPH # 1.2 10*3/uL (1.3-4.4); LYMPH % 7.9 % (27.0-41.0); MEAN CELL VOLUME 86.9 fl (80.0-94.0); MEAN CORPUSCULAR HGB 25.2 pg (27.0-31.0); MEAN PLATELET VOLUME 11.7 fl (9.6-12.3); MONO # 1.1 10*3/uL (0.1-1.0); MONO % 7.3 % (3.0-9.0); NEUT # 11.7 10*3/uL (2.3-7.9); NEUT % 79.3 % (47.0-73.0); PLATELET COUNT AUTOMATED 183 10*3/uL (130-400); RED BLOOD COUNT 2.82 10*6/uL (4.50-5.90); RED CELL DISTRI WIDTH 16.4 % (0-14.5); WHITE BLOOD COUNT 14.7 10*3/uL (4.8-10.8)
[2022-10-02 06:19] LABS: BUN 32 mg/dl (7-24); CREATININE 1.16 mg/dL (0.70-1.30)
[2022-10-02 08:00] VITALS: BP 98/50
[2022-10-02 12:00] VITALS: BP 100/58
[2022-10-02 16:00] VITALS: BP 106/57
[2022-10-02 20:00] VITALS: BP 102/83
[2022-10-03] VITALS: BP 137/50
[2022-10-03 06:23] LABS: BUN 30 mg/dl (7-24); CHLORIDE 109 mmol/L (98-107); CREATININE 1.23 mg/dL (0.70-1.30); POTASSIUM 4.5 mmol/L (3.5-5.1); SODIUM 141 mmol/L (136-145)
[2022-10-03 06:25] LABS: BASO % 0.1 % (0.0-1.0); EOS # 0.4 10*3/uL (0.0-0.4); EOS % 4.1 % (1.0-4.0); HEMATOCRIT 23.4 % (42.0-52.0); LYMPH # 1.4 10*3/uL (1.3-4.4); LYMPH % 14.5 % (27.0-41.0); MEAN CELL VOLUME 85.7 fl (80.0-94.0); MEAN CORPUSCULAR HGB CONC 30.3 g/dl (33.0-37.0); MEAN PLATELET VOLUME 11.4 fl (9.6-12.3); MONO # 0.9 10*3/uL (0.1-1.0); MONO % 9.6 % (3.0-9.0); NEUT # 6.6 10*3/uL (2.3-7.9); NEUT % 70.2 % (47.0-73.0); PLATELET COUNT AUTOMATED 193 10*3/uL (130-400); RED BLOOD COUNT 2.73 10*6/uL (4.50-5.90); RED CELL DISTRI WIDTH 16.6 % (0-14.5); WHITE BLOOD COUNT 9.3 10*3/uL (4.8-10.8)
[2022-10-03 08:00] VITALS: BP 106/54
[2022-10-03 12:00] VITALS: BP 106/56
[2022-10-03] MEDS ORDERED: PREMIERPRO RX500 M2 IV (15:59)
[2022-10-03] MEDS ORDERED: FLUCONAZOLE100 MG PO (15:59)
[2022-10-03 16:00] VITALS: BP 80/48
[2022-10-03 16:30] VITALS: BP 82/42
[2022-10-03 17:33] LABS: ABG BASE EXCESS -1.4 mmol/L (-2.0-2.0); ARTERIAL BLOOD GAS PH 7.402 (7.35-7.45); ARTERIAL BLOOD GAS PO2 184.9 (80-90)
[2022-10-03 17:34] LABS: BASO % 0.1 % (0.0-1.0); EOS # 0.5 10*3/uL (0.0-0.4); HEMATOCRIT 25.7 % (42.0-52.0); LYMPH # 1.7 10*3/uL (1.3-4.4); LYMPH % 18.9 % (27.0-41.0); MEAN CELL VOLUME 88.6 fl (80.0-94.0); MEAN CORPUSCULAR HGB 25.9 pg (27.0-31.0); MEAN CORPUSCULAR HGB CONC 29.2 g/dl (33.0-37.0); MEAN PLATELET VOLUME 11.8 fl (9.6-12.3); MONO % 11.1 % (3.0-9.0); NEUT # 5.8 10*3/uL (2.3-7.9); NEUT % 63.5 % (47.0-73.0); PLATELET COUNT AUTOMATED 186 10*3/uL (130-400); RED CELL DISTRI WIDTH 17.1 % (0-14.5); WHITE BLOOD COUNT 9.1 10*3/uL (4.8-10.8)
[2022-10-03 17:58] LABS: CREATININE 1.46 mg/dL (0.70-1.30); POTASSIUM 4.6 mmol/L (3.5-5.1); TOTAL PROTEIN 5.4 gm/dL (6.4-8.2)
[2022-10-03 18:41] LABS: BILIRUBIN Negative (Negative); BLOOD Trace-Lysed (Negative); CLARITY Cloudy (Clear); COLOR Yellow (Yellow); GLUCOSE Negative (Negative); KETONE Trace (Negative); LEUKO ESTERASE 1+ (Negative); NITRITE Negative (Negative); PH 5.5 (4.5-8.0)
[2022-10-03 19:12] LABS: BACTERIA 1+; WBC TNTC wbc/hpf (0-5); YEAST 1+
[2022-10-03 20:00] VITALS: BP 114/63
[2022-10-04] VITALS (10 sets, daily range): BP systolic 103–139; BP diastolic 47–88
[2022-10-04 05:43] LABS: BUN 31 mg/dl (7-24); CHLORIDE 109 mmol/L (98-107); CREATININE 1.36 mg/dL (0.70-1.30); POTASSIUM 5.1 mmol/L (3.5-5.1); SODIUM 138 mmol/L (136-145)
[2022-10-04 06:44] LABS: HEMATOCRIT 21.2 % (42.0-52.0); MEAN CELL VOLUME 87.2 fl (80.0-94.0); MEAN CORPUSCULAR HGB 25.5 pg (27.0-31.0); MEAN CORPUSCULAR HGB CONC 29.2 g/dl (33.0-37.0); MEAN PLATELET VOLUME 11.3 fl (9.6-12.3); PLATELET COUNT AUTOMATED 149 10*3/uL (130-400); RED BLOOD COUNT 2.43 10*6/uL (4.50-5.90); RED CELL DISTRI WIDTH 16.5 % (0-14.5); WHITE BLOOD COUNT 7.5 10*3/uL (4.8-10.8)
[2022-10-04 06:47] LABS: MANUAL DIFF REFLEX YES
[2022-10-04 07:50] LABS: BURR CELLS FEW; OVALOCYTES FEW; TOTAL CELLS COUNTED 100 #CELLS
[2022-10-04 07:51] LABS: PLATELET SUFFICIENCY NORMAL (NORMAL); POLYCHROMASIA SLIGHT; ROULEAUX SLIGHT; SCHISTOCYTES FEW; TOXIC GRANULATION SLIGHT
[2022-10-04 18:07] LABS: BASO % 0.1 % (0.0-1.0); EOS # 0.6 10*3/uL (0.0-0.4); EOS % 6.2 % (1.0-4.0); HEMATOCRIT 26.9 % (42.0-52.0); LYMPH # 1.7 10*3/uL (1.3-4.4); LYMPH % 16.2 % (27.0-41.0); MEAN CELL VOLUME 85.9 fl (80.0-94.0); MEAN CORPUSCULAR HGB 26.2 pg (27.0-31.0); MEAN CORPUSCULAR HGB CONC 30.5 g/dl (33.0-37.0); MONO # 0.8 10*3/uL (0.1-1.0); MONO % 7.3 % (3.0-9.0); NEUT # 7.2 10*3/uL (2.3-7.9); NEUT % 69.4 % (47.0-73.0); PLATELET COUNT AUTOMATED 176 10*3/uL (130-400); RED BLOOD COUNT 3.13 10*6/uL (4.50-5.90); RED CELL DISTRI WIDTH 16.4 % (0-14.5); WHITE BLOOD COUNT 10.4 10*3/uL (4.8-10.8)
[2022-10-05] VITALS: BP 76/30
[2022-10-05 06:38] LABS: BASO % 0.1 % (0.0-1.0); EOS # 0.6 10*3/uL (0.0-0.4); EOS % 8.2 % (1.0-4.0); HEMATOCRIT 24.6 % (42.0-52.0); LYMPH # 1.4 10*3/uL (1.3-4.4); LYMPH % 19.1 % (27.0-41.0); MEAN CELL VOLUME 86.6 fl (80.0-94.0); MEAN CORPUSCULAR HGB 26.1 pg (27.0-31.0); MEAN CORPUSCULAR HGB CONC 30.1 g/dl (33.0-37.0); MEAN PLATELET VOLUME 11.2 fl (9.6-12.3); MONO # 0.8 10*3/uL (0.1-1.0); MONO % 10.2 % (3.0-9.0); NEUT # 4.6 10*3/uL (2.3-7.9); NEUT % 61.7 % (47.0-73.0); PLATELET COUNT AUTOMATED 159 10*3/uL (130-400); RED BLOOD COUNT 2.84 10*6/uL (4.50-5.90); RED CELL DISTRI WIDTH 16.7 % (0-14.5); WHITE BLOOD COUNT 7.5 10*3/uL (4.8-10.8)
[2022-10-05 06:58] LABS: ALKALINE PHOSPHATASE 97 U/L (45-117); BUN 24 mg/dl (7-24); CHLORIDE 110 mmol/L (98-107); CREATININE 1.01 mg/dL (0.70-1.30); POTASSIUM 4.9 mmol/L (3.5-5.1); SGPT/ALT 38 U/L (12-78); SODIUM 140 mmol/L (136-145); TOTAL PROTEIN 4.7 gm/dL (6.4-8.2)
[2022-10-05 08:00] VITALS: BP 124/55
[2022-10-05 12:00] VITALS: BP 128/74
[2022-10-05 16:00] VITALS: BP 128/74
[2022-10-05 20:00] VITALS: BP 135/66
[2022-10-06] VITALS: BP 159/70
[2022-10-06 04:45] VITALS: BP 145/88
[2022-10-06 07:52] LABS: BASO % 0.3 % (0.0-1.0); EOS # 0.9 10*3/uL (0.0-0.4); EOS % 9.9 % (1.0-4.0); LYMPH % 23.6 % (27.0-41.0); MEAN CELL VOLUME 87.1 fl (80.0-94.0); MEAN CORPUSCULAR HGB 26.1 pg (27.0-31.0); MEAN PLATELET VOLUME 10.9 fl (9.6-12.3); MONO # 0.7 10*3/uL (0.1-1.0); MONO % 7.7 % (3.0-9.0); NEUT % 57.8 % (47.0-73.0); PLATELET COUNT AUTOMATED 166 10*3/uL (130-400); RED CELL DISTRI WIDTH 16.8 % (0-14.5); WHITE BLOOD COUNT 8.6 10*3/uL (4.8-10.8)
[2022-10-06 08:00] VITALS: BP 131/46
[2022-10-06 08:14] LABS: BUN 19 mg/dl (7-24); CHLORIDE 107 mmol/L (98-107); CREATININE 0.97 mg/dL (0.70-1.30); POTASSIUM 5.1 mmol/L (3.5-5.1); SODIUM 136 mmol/L (136-145)
[2022-10-06 12:00] VITALS: BP 115/48
[2022-10-06 16:00] VITALS: BP 135/64
[2022-10-07] MEDS ORDERED: TRAMADOL HCL50 MG PO (13:13)
== END 2022-10-06 17:05 | DRG 853 ==
LOC: ED 10:58 → 4E 15:03 → EDHOLD 15:03 → 4E 15:42
PROVIDERS: Emergency Medicine; Family Medicine; Internal Medicine; Internal Medicine Infectious Disease; Podiatrist; Student in an Organized Health Care Education/Training Program; ADMIT Internal Medicine; ATTEND Internal Medicine
PROC: 02HV33Z Insertion of Infusion Device into Superior Vena Cava, Percutaneous Approach (ICD-10-PCS; 2022-09-23)
PROC: 0QBN0ZZ Excision of Right Metatarsal, Open Approach (ICD-10-PCS; principal; 2022-09-27)
PROC: 2W1SX6Z Compression of Right Foot using Pressure Dressing (ICD-10-PCS; 2022-09-27)
PROC: 30233N1 Transfusion of Nonautologous Red Blood Cells into Peripheral Vein, Percutaneous Approach (ICD-10-PCS; 2022-10-04)
DX: A41.9 Sepsis, unspecified organism (principal); E43 Unspecified severe protein-calorie malnutrition; J18.9 Pneumonia, unspecified organism; N17.0 Acute kidney failure with tubular necrosis; M86.8X7 Other osteomyelitis, ankle and foot; J44.1 Chronic obstructive pulmonary disease with (acute) exacerbation; E87.20 Acidosis, unspecified; I50.32 Chronic diastolic (congestive) heart failure; I13.0 Hypertensive heart and chronic kidney disease with heart failure and stage 1 through stage 4 chronic kidney disease, or unspecified chronic kidney disease; J44.0 Chronic obstructive pulmonary disease with (acute) lower respiratory infection; R65.20 Severe sepsis without septic shock; E83.42 Hypomagnesemia; Z96.641 Presence of right artificial hip joint; I48.91 Unspecified atrial fibrillation; F41.1 Generalized anxiety disorder; N40.0 Benign prostatic hyperplasia without lower urinary tract symptoms; I25.10 Atherosclerotic heart disease of native coronary artery without angina pectoris; E11.22 Type 2 diabetes mellitus with diabetic chronic kidney disease; Z20.822 Contact with and (suspected) exposure to COVID-19; E11.51 Type 2 diabetes mellitus with diabetic peripheral angiopathy without gangrene; E66.9 Obesity, unspecified; M10.9 Gout, unspecified; E78.5 Hyperlipidemia, unspecified; K21.9 Gastro-esophageal reflux disease without esophagitis; F32.A Depression, unspecified; D64.9 Anemia, unspecified; S91.301A Unspecified open wound, right foot, initial encounter; X58.XXXA Exposure to other specified factors, initial encounter; E11.42 Type 2 diabetes mellitus with diabetic polyneuropathy; R41.0 Disorientation, unspecified; E83.51 Hypocalcemia; E11.65 Type 2 diabetes mellitus with hyperglycemia; E86.1 Hypovolemia; E11.69 Type 2 diabetes mellitus with other specified complication; Z88.1 Allergy status to other antibiotic agents; Z88.0 Allergy status to penicillin; Z88.8 Allergy status to other drugs, medicaments and biological substances; Z95.5 Presence of coronary angioplasty implant and graft; Z89.432 Acquired absence of left foot; Z80.0 Family history of malignant neoplasm of digestive organs; Z82.49 Family history of ischemic heart disease and other diseases of the circulatory system; Z87.891 Personal history of nicotine dependence; Z79.4 Long term (current) use of insulin; Y93.89 Activity, other specified; Y92.89 Other specified places as the place of occurrence of the external cause; Y99.8 Other external cause status; Z89.421 Acquired absence of other right toe(s); Z89.431 Acquired absence of right foot; N18.32 Chronic kidney disease, stage 3b

== ENCOUNTER → 2022-10-08 | Day surgery (SDC) | payer MEDICARE, OTHER ==
[~2022-10-08] VITALS: Ht 182.8 cm; Wt 113.4 kg
[~2022-10-08] MED LIST changes: +FLUCONAZOLE100 MG PO; +PREMIERPRO RX500 M2 IV; +VIBRA-TAB100 MG PO
[2022-10-08 07:20] VITALS: BP 100/60
[2022-10-08 09:23] VITALS: BP 113/29
[2022-10-08 09:38] VITALS: BP 118/63
[2022-10-08 09:53] VITALS: BP 115/58
[2022-10-08 10:27] VITALS: BP 118/63
[2022-10-09 11:04] LABS: ACID FAST SPEC PROCESSING Tissue Grinding (.)
== END | disposition home or self-care (01) ==
LOC: SDC 10-07 08:45
PROVIDERS: Podiatrist; ATTEND Podiatrist Foot & Ankle Surgery
DX: S91.301A Unspecified open wound, right foot, initial encounter (principal); T87.89 Other complications of amputation stump; I25.10 Atherosclerotic heart disease of native coronary artery without angina pectoris; J44.9 Chronic obstructive pulmonary disease, unspecified; M10.9 Gout, unspecified; Z86.73 Personal history of transient ischemic attack (TIA), and cerebral infarction without residual deficits; F41.9 Anxiety disorder, unspecified; M86.172 Other acute osteomyelitis, left ankle and foot; I13.0 Hypertensive heart and chronic kidney disease with heart failure and stage 1 through stage 4 chronic kidney disease, or unspecified chronic kidney disease; E11.22 Type 2 diabetes mellitus with diabetic chronic kidney disease; I50.9 Heart failure, unspecified; N18.9 Chronic kidney disease, unspecified; F32.A Depression, unspecified; I48.91 Unspecified atrial fibrillation; Z88.0 Allergy status to penicillin; Z88.8 Allergy status to other drugs, medicaments and biological substances; E78.00 Pure hypercholesterolemia, unspecified; Z79.899 Other long term (current) drug therapy; X58.XXXA Exposure to other specified factors, initial encounter; Y93.89 Activity, other specified; Y92.89 Other specified places as the place of occurrence of the external cause; Y99.8 Other external cause status

== ENCOUNTER → 2022-10-13 | Outpatient (CLI) | payer MEDICARE, OTHER | END | disposition home or self-care (01) | LOC: WOUNDCARE 02:12 | PROVIDERS: ATTEND Nurse Practitioner Family | DX: T81.89XD Other complications of procedures, not elsewhere classified, subsequent encounter (principal); E11.621 Type 2 diabetes mellitus with foot ulcer; L97.521 Non-pressure chronic ulcer of other part of left foot limited to breakdown of skin; L97.412 Non-pressure chronic ulcer of right heel and midfoot with fat layer exposed; E11.51 Type 2 diabetes mellitus with diabetic peripheral angiopathy without gangrene; E03.9 Hypothyroidism, unspecified; E11.40 Type 2 diabetes mellitus with diabetic neuropathy, unspecified; E78.5 Hyperlipidemia, unspecified; E11.22 Type 2 diabetes mellitus with diabetic chronic kidney disease; I12.9 Hypertensive chronic kidney disease with stage 1 through stage 4 chronic kidney disease, or unspecified chronic kidney disease; N18.30 Chronic kidney disease, stage 3 unspecified; J44.9 Chronic obstructive pulmonary disease, unspecified; Z87.891 Personal history of nicotine dependence; Z95.5 Presence of coronary angioplasty implant and graft; Z90.49 Acquired absence of other specified parts of digestive tract; Z89.412 Acquired absence of left great toe; Z89.422 Acquired absence of other left toe(s); Y83.8 Other surgical procedures as the cause of abnormal reaction of the patient, or of later complication, without mention of misadventure at the time of the procedure ==

== ENCOUNTER → 2022-10-27 | Outpatient (CLI) | payer MEDICARE, OTHER ==
[~2022-10-27] MED LIST changes: +REGLAN5 MG PO
== END | disposition home or self-care (01) ==
LOC: WOUNDCARE 04:09
PROVIDERS: ATTEND Podiatrist Foot & Ankle Surgery
DX: T86.828 Other complications of skin graft (allograft) (autograft) (principal); E11.621 Type 2 diabetes mellitus with foot ulcer; L97.521 Non-pressure chronic ulcer of other part of left foot limited to breakdown of skin; L97.412 Non-pressure chronic ulcer of right heel and midfoot with fat layer exposed; E11.51 Type 2 diabetes mellitus with diabetic peripheral angiopathy without gangrene; E11.40 Type 2 diabetes mellitus with diabetic neuropathy, unspecified; E78.5 Hyperlipidemia, unspecified; E11.22 Type 2 diabetes mellitus with diabetic chronic kidney disease; I12.9 Hypertensive chronic kidney disease with stage 1 through stage 4 chronic kidney disease, or unspecified chronic kidney disease; N18.30 Chronic kidney disease, stage 3 unspecified; E03.9 Hypothyroidism, unspecified; J44.9 Chronic obstructive pulmonary disease, unspecified; Z87.891 Personal history of nicotine dependence; Z95.5 Presence of coronary angioplasty implant and graft; Z96.641 Presence of right artificial hip joint; Z90.49 Acquired absence of other specified parts of digestive tract; Z89.421 Acquired absence of other right toe(s); Z89.422 Acquired absence of other left toe(s); Y83.2 Surgical operation with anastomosis, bypass or graft as the cause of abnormal reaction of the patient, or of later complication, without mention of misadventure at the time of the procedure

== ENCOUNTER → 2022-11-24 | Outpatient (CLI) | payer MEDICARE, OTHER | END | disposition home or self-care (01) | LOC: WOUNDCARE 01:38 | PROVIDERS: ATTEND Podiatrist Foot & Ankle Surgery | DX: T81.89XD Other complications of procedures, not elsewhere classified, subsequent encounter (principal); E11.621 Type 2 diabetes mellitus with foot ulcer; L97.521 Non-pressure chronic ulcer of other part of left foot limited to breakdown of skin; L97.412 Non-pressure chronic ulcer of right heel and midfoot with fat layer exposed; E11.51 Type 2 diabetes mellitus with diabetic peripheral angiopathy without gangrene; E11.40 Type 2 diabetes mellitus with diabetic neuropathy, unspecified; E11.22 Type 2 diabetes mellitus with diabetic chronic kidney disease; I12.9 Hypertensive chronic kidney disease with stage 1 through stage 4 chronic kidney disease, or unspecified chronic kidney disease; N18.30 Chronic kidney disease, stage 3 unspecified; E03.9 Hypothyroidism, unspecified; E78.5 Hyperlipidemia, unspecified; J44.9 Chronic obstructive pulmonary disease, unspecified; Z87.891 Personal history of nicotine dependence; Z95.5 Presence of coronary angioplasty implant and graft; Z96.641 Presence of right artificial hip joint; Z90.49 Acquired absence of other specified parts of digestive tract; Z89.412 Acquired absence of left great toe; Z89.422 Acquired absence of other left toe(s); Z89.421 Acquired absence of other right toe(s); Y83.8 Other surgical procedures as the cause of abnormal reaction of the patient, or of later complication, without mention of misadventure at the time of the procedure ==

== ENCOUNTER → 2022-12-01 | Outpatient (CLI) | payer OTHER ==
[~2022-12-01] MED LIST changes: +THERA TABLET400 MCG PO; +VITAMIN B-1100 M1 PO
== END ==
LOC: WOUNDCARE 01:56
PROVIDERS: ATTEND Podiatrist Foot & Ankle Surgery
DX: Z53.21 Procedure and treatment not carried out due to patient leaving prior to being seen by health care provider (principal)

== ENCOUNTER 2022-12-21 20:04 | Emergency (ER) | payer OTHER ==
[2022-12-21 20:13] VITALS: BP 133/66
[2022-12-21 20:33] LABS: HEMATOCRIT 29.1 % (42.0-52.0); MEAN CELL VOLUME 81.3 fl (80.0-94.0); MEAN CORPUSCULAR HGB 23.2 pg (27.0-31.0); MEAN CORPUSCULAR HGB CONC 28.5 g/dl (33.0-37.0); MEAN PLATELET VOLUME 11.2 fl (9.6-12.3); PLATELET COUNT AUTOMATED 211 10*3/uL (130-400); RED BLOOD COUNT 3.58 10*6/uL (4.50-5.90); RED CELL DISTRI WIDTH 22.8 % (0-14.5); WHITE BLOOD COUNT 9.1 10*3/uL (4.8-10.8)
[2022-12-21 20:37] LABS: MANUAL DIFF REFLEX YES
[2022-12-21 20:57] LABS: POTASSIUM 4.7 mmol/L (3.4-5.1)
[2022-12-21 20:58] LABS: TOTAL CELLS COUNTED 100 #CELLS
[2022-12-21 20:59] LABS: OVALOCYTES FEW; PLATELET SUFFICIENCY NORMAL (NORMAL)
[2022-12-21 21:00] LABS: ACANTHOCYTES FEW; BURR CELLS MODERATE; POLYCHROMASIA SLIGHT
[2022-12-21 21:01] LABS: MICROCYTOSIS SLIGHT; SCHISTOCYTES FEW
== END 2022-12-21 23:15 | disposition home or self-care (01) ==
LOC: ED 20:04
PROVIDERS: Physician Assistant
DX: E11.65 Type 2 diabetes mellitus with hyperglycemia (principal); J44.9 Chronic obstructive pulmonary disease, unspecified; Z88.0 Allergy status to penicillin; Z88.1 Allergy status to other antibiotic agents; Z88.8 Allergy status to other drugs, medicaments and biological substances; Z98.890 Other specified postprocedural states; Z90.49 Acquired absence of other specified parts of digestive tract; F10.10 Alcohol abuse, uncomplicated; Z87.891 Personal history of nicotine dependence; F14.10 Cocaine abuse, uncomplicated; F11.10 Opioid abuse, uncomplicated; F19.10 Other psychoactive substance abuse, uncomplicated

== ENCOUNTER → 2022-12-23 | Outpatient (CLI) | payer OTHER | END | disposition home or self-care (01) | LOC: WOUNDCARE 02:13 | PROVIDERS: ATTEND Nurse Practitioner Family | DX: T81.89XD Other complications of procedures, not elsewhere classified, subsequent encounter (principal); L89.523 Pressure ulcer of left ankle, stage 3; S61.201A Unspecified open wound of left index finger without damage to nail, initial encounter; E11.621 Type 2 diabetes mellitus with foot ulcer; L97.521 Non-pressure chronic ulcer of other part of left foot limited to breakdown of skin; L97.412 Non-pressure chronic ulcer of right heel and midfoot with fat layer exposed; L84 Corns and callosities; E11.40 Type 2 diabetes mellitus with diabetic neuropathy, unspecified; E11.22 Type 2 diabetes mellitus with diabetic chronic kidney disease; I12.9 Hypertensive chronic kidney disease with stage 1 through stage 4 chronic kidney disease, or unspecified chronic kidney disease; N18.30 Chronic kidney disease, stage 3 unspecified; E11.51 Type 2 diabetes mellitus with diabetic peripheral angiopathy without gangrene; E03.9 Hypothyroidism, unspecified; E78.5 Hyperlipidemia, unspecified; J44.9 Chronic obstructive pulmonary disease, unspecified; F41.9 Anxiety disorder, unspecified; F32.A Depression, unspecified; Z87.891 Personal history of nicotine dependence; Z95.5 Presence of coronary angioplasty implant and graft; Z96.641 Presence of right artificial hip joint; Z90.49 Acquired absence of other specified parts of digestive tract; Z89.412 Acquired absence of left great toe; X58.XXXA Exposure to other specified factors, initial encounter; Y93.89 Activity, other specified; Y92.89 Other specified places as the place of occurrence of the external cause; Y99.8 Other external cause status ==

== ENCOUNTER → 2022-12-30 | Outpatient (CLI) | payer OTHER | END | disposition home or self-care (01) | LOC: WOUNDCARE | PROVIDERS: ATTEND Nurse Practitioner Family | DX: T81.89XD Other complications of procedures, not elsewhere classified, subsequent encounter (principal); L89.523 Pressure ulcer of left ankle, stage 3; S61.201D Unspecified open wound of left index finger without damage to nail, subsequent encounter; E11.621 Type 2 diabetes mellitus with foot ulcer; L97.521 Non-pressure chronic ulcer of other part of left foot limited to breakdown of skin; L97.412 Non-pressure chronic ulcer of right heel and midfoot with fat layer exposed; E11.51 Type 2 diabetes mellitus with diabetic peripheral angiopathy without gangrene; E03.9 Hypothyroidism, unspecified; E11.40 Type 2 diabetes mellitus with diabetic neuropathy, unspecified; E11.22 Type 2 diabetes mellitus with diabetic chronic kidney disease; I12.9 Hypertensive chronic kidney disease with stage 1 through stage 4 chronic kidney disease, or unspecified chronic kidney disease; N18.30 Chronic kidney disease, stage 3 unspecified; E78.5 Hyperlipidemia, unspecified; J44.9 Chronic obstructive pulmonary disease, unspecified; Z87.891 Personal history of nicotine dependence; Z95.5 Presence of coronary angioplasty implant and graft; Z96.641 Presence of right artificial hip joint; Z90.49 Acquired absence of other specified parts of digestive tract; Z89.422 Acquired absence of other left toe(s); Z89.412 Acquired absence of left great toe; X58.XXXD Exposure to other specified factors, subsequent encounter; Y83.8 Other surgical procedures as the cause of abnormal reaction of the patient, or of later complication, without mention of misadventure at the time of the procedure ==

== ENCOUNTER → 2023-01-09 | Outpatient (CLI) | payer OTHER | END | disposition home or self-care (01) | LOC: WOUNDCARE 01:23 | PROVIDERS: ATTEND Nurse Practitioner Family | DX: T87.89 Other complications of amputation stump (principal); L89.523 Pressure ulcer of left ankle, stage 3; E11.621 Type 2 diabetes mellitus with foot ulcer; L97.521 Non-pressure chronic ulcer of other part of left foot limited to breakdown of skin; L97.421 Non-pressure chronic ulcer of left heel and midfoot limited to breakdown of skin; E11.51 Type 2 diabetes mellitus with diabetic peripheral angiopathy without gangrene; E11.40 Type 2 diabetes mellitus with diabetic neuropathy, unspecified; E11.22 Type 2 diabetes mellitus with diabetic chronic kidney disease; I12.9 Hypertensive chronic kidney disease with stage 1 through stage 4 chronic kidney disease, or unspecified chronic kidney disease; N18.30 Chronic kidney disease, stage 3 unspecified; E03.9 Hypothyroidism, unspecified; E78.5 Hyperlipidemia, unspecified; J44.9 Chronic obstructive pulmonary disease, unspecified; Z87.891 Personal history of nicotine dependence; Z96.641 Presence of right artificial hip joint; Z90.49 Acquired absence of other specified parts of digestive tract; Z89.412 Acquired absence of left great toe; Z89.422 Acquired absence of other left toe(s); Z89.421 Acquired absence of other right toe(s); Y83.5 Amputation of limb(s) as the cause of abnormal reaction of the patient, or of later complication, without mention of misadventure at the time of the procedure ==

== ENCOUNTER → 2023-01-16 | Outpatient (CLI) | payer OTHER | END | disposition home or self-care (01) | LOC: WOUNDCARE 01:01 | PROVIDERS: ATTEND Nurse Practitioner Family | DX: T81.89XD Other complications of procedures, not elsewhere classified, subsequent encounter (principal); L89.523 Pressure ulcer of left ankle, stage 3; E11.621 Type 2 diabetes mellitus with foot ulcer; L97.521 Non-pressure chronic ulcer of other part of left foot limited to breakdown of skin; L97.412 Non-pressure chronic ulcer of right heel and midfoot with fat layer exposed; E11.22 Type 2 diabetes mellitus with diabetic chronic kidney disease; I12.9 Hypertensive chronic kidney disease with stage 1 through stage 4 chronic kidney disease, or unspecified chronic kidney disease; N18.30 Chronic kidney disease, stage 3 unspecified; E11.51 Type 2 diabetes mellitus with diabetic peripheral angiopathy without gangrene; E11.40 Type 2 diabetes mellitus with diabetic neuropathy, unspecified; E78.5 Hyperlipidemia, unspecified; E03.9 Hypothyroidism, unspecified; J44.9 Chronic obstructive pulmonary disease, unspecified; Z87.891 Personal history of nicotine dependence; Z95.5 Presence of coronary angioplasty implant and graft; Z96.641 Presence of right artificial hip joint; Z90.49 Acquired absence of other specified parts of digestive tract; Y83.8 Other surgical procedures as the cause of abnormal reaction of the patient, or of later complication, without mention of misadventure at the time of the procedure ==

== ENCOUNTER 2023-01-22 11:09 | Emergency (ER) | payer OTHER ==
[~2023-01-22] VITALS: Wt 92.5 kg
[2023-01-22 11:13] VITALS: BP 98/62
[2023-01-22 12:09] LABS: BASO % 0.3 % (0.0-1.0); EOS # 0.5 10*3/uL (0.0-0.4); EOS % 5.4 % (1.0-4.0); HEMATOCRIT 33.4 % (42.0-52.0); LYMPH # 2.5 10*3/uL (1.3-4.4); LYMPH % 24.8 % (27.0-41.0); MEAN CELL VOLUME 79.7 fl (80.0-94.0); MEAN CORPUSCULAR HGB 23.2 pg (27.0-31.0); MEAN PLATELET VOLUME 11.2 fl (9.6-12.3); MONO # 0.7 10*3/uL (0.1-1.0); MONO % 7.2 % (3.0-9.0); NEUT # 6.2 10*3/uL (2.3-7.9); NEUT % 62.1 % (47.0-73.0); PLATELET COUNT AUTOMATED 295 10*3/uL (130-400); RED BLOOD COUNT 4.19 10*6/uL (4.50-5.90); WHITE BLOOD COUNT 9.9 10*3/uL (4.8-10.8)
[2023-01-22 12:26] LABS: POTASSIUM 3.3 mmol/L (3.4-5.1); TOTAL PROTEIN 6.7 gm/dL (6.0-8.0)
[2023-01-22 13:48] LABS: BILIRUBIN Negative (Negative); BLOOD Negative (Negative); CLARITY Clear (Clear); COLOR Yellow (Yellow); GLUCOSE 1+ (Negative); KETONE Negative (Negative); LEUKO ESTERASE Negative (Negative); NITRITE Negative (Negative); SPECIFIC GRAVITY 1.015 (1.001-1.030); UROBILINOGEN 0.2 E.U./dl (0.0-1.0)
[2023-01-22 14:09] LABS: MUCOUS 1+
== END 2023-01-22 15:06 | disposition home or self-care (01) ==
LOC: ED 11:09
PROVIDERS: Nurse Practitioner Family
DX: R53.83 Other fatigue (principal); B34.9 Viral infection, unspecified; I10 Essential (primary) hypertension; E11.9 Type 2 diabetes mellitus without complications; F41.9 Anxiety disorder, unspecified; Z88.0 Allergy status to penicillin; Z88.1 Allergy status to other antibiotic agents; Z88.8 Allergy status to other drugs, medicaments and biological substances; Z90.49 Acquired absence of other specified parts of digestive tract; Z98.890 Other specified postprocedural states

== ENCOUNTER 2023-01-26 09:46 | Emergency (ER) | payer OTHER ==
[2023-01-26 09:51] VITALS: BP 156/74
[2023-01-26] MEDS ORDERED: MIRALAX17 GM PO (11:54)
== END 2023-01-26 12:07 | disposition home or self-care (01) ==
LOC: ED 09:46
DX: R53.1 Weakness (principal); I25.10 Atherosclerotic heart disease of native coronary artery without angina pectoris; J44.9 Chronic obstructive pulmonary disease, unspecified; E11.9 Type 2 diabetes mellitus without complications; Z86.73 Personal history of transient ischemic attack (TIA), and cerebral infarction without residual deficits; I10 Essential (primary) hypertension; F41.9 Anxiety disorder, unspecified; Z88.0 Allergy status to penicillin; Z88.1 Allergy status to other antibiotic agents; Z98.890 Other specified postprocedural states; Z88.5 Allergy status to narcotic agent; Z88.8 Allergy status to other drugs, medicaments and biological substances; Z90.49 Acquired absence of other specified parts of digestive tract; Z20.822 Contact with and (suspected) exposure to COVID-19

== ENCOUNTER 2023-03-15 23:21 | Emergency (ER) | payer OTHER ==
[~2023-03-15] VITALS: Ht 185.4 cm; Wt 95.3 kg
[2023-03-16 01:43] VITALS: BP 132/64
== END 2023-03-16 02:09 | disposition home or self-care (01) ==
LOC: ED 23:21
DX: E11.65 Type 2 diabetes mellitus with hyperglycemia (principal); I10 Essential (primary) hypertension; I25.2 Old myocardial infarction; M19.90 Unspecified osteoarthritis, unspecified site; M10.9 Gout, unspecified; D64.9 Anemia, unspecified; F41.9 Anxiety disorder, unspecified; I48.91 Unspecified atrial fibrillation; I25.10 Atherosclerotic heart disease of native coronary artery without angina pectoris; J44.9 Chronic obstructive pulmonary disease, unspecified; Z86.73 Personal history of transient ischemic attack (TIA), and cerebral infarction without residual deficits

== ENCOUNTER 2023-03-17 11:32 | Emergency (ER) | payer OTHER ==
[2023-03-17 11:33] VITALS: BP 132/74
[2023-03-17 12:09] LABS: BASO % 0.3 % (0.0-1.0); EOS # 0.3 10*3/uL (0.0-0.4); EOS % 2.7 % (1.0-4.0); HEMATOCRIT 36.5 % (42.0-52.0); LYMPH # 1.6 10*3/uL (1.3-4.4); LYMPH % 17.3 % (27.0-41.0); MEAN CELL VOLUME 77.5 fl (80.0-94.0); MEAN CORPUSCULAR HGB 22.9 pg (27.0-31.0); MEAN CORPUSCULAR HGB CONC 29.6 g/dl (33.0-37.0); MEAN PLATELET VOLUME 10.4 fl (9.6-12.3); MONO # 0.6 10*3/uL (0.1-1.0); MONO % 5.9 % (3.0-9.0); NEUT # 6.9 10*3/uL (2.3-7.9); NEUT % 73.5 % (47.0-73.0); PLATELET COUNT AUTOMATED 202 10*3/uL (130-400); RED BLOOD COUNT 4.71 10*6/uL (4.50-5.90); RED CELL DISTRI WIDTH 18.2 % (0-14.5); WHITE BLOOD COUNT 9.3 10*3/uL (4.8-10.8)
[2023-03-17 12:21] LABS: ACT PARTIAL THROMBO TIME 33.6 SECONDS (20.0-32.1); INTERNATIONAL NORM RATIO 1.3 (2.0-3.5)
[2023-03-17 12:36] LABS: POTASSIUM 3.6 mmol/L (3.4-5.1); TOTAL PROTEIN 7.1 gm/dL (6.0-8.0)
== END 2023-03-17 14:34 | disposition home or self-care (01) ==
LOC: ED 11:32
PROVIDERS: Emergency Medicine
DX: R07.89 Other chest pain (principal); I10 Essential (primary) hypertension; M10.9 Gout, unspecified; I11.0 Hypertensive heart disease with heart failure; I25.10 Atherosclerotic heart disease of native coronary artery without angina pectoris; J44.9 Chronic obstructive pulmonary disease, unspecified; E11.9 Type 2 diabetes mellitus without complications; Z86.73 Personal history of transient ischemic attack (TIA), and cerebral infarction without residual deficits; F41.9 Anxiety disorder, unspecified; Z86.16 Personal history of COVID-19; Z88.0 Allergy status to penicillin; Z88.8 Allergy status to other drugs, medicaments and biological substances; Z88.1 Allergy status to other antibiotic agents; Z98.890 Other specified postprocedural states; Z90.49 Acquired absence of other specified parts of digestive tract; Z95.5 Presence of coronary angioplasty implant and graft; F10.10 Alcohol abuse, uncomplicated; Z87.891 Personal history of nicotine dependence; F19.10 Other psychoactive substance abuse, uncomplicated; F14.10 Cocaine abuse, uncomplicated; F11.10 Opioid abuse, uncomplicated

== ENCOUNTER → 2023-03-18 | Day surgery (SDC) | payer OTHER ==
[~2023-03-18] VITALS: Ht 182.8 cm; Wt 113.4 kg
[2023-03-18 08:54] VITALS: BP 121/67
[2023-03-18 09:30] VITALS: BP 104/48
[2023-03-18 09:45] VITALS: BP 110/53
[2023-03-18 10:00] VITALS: BP 109/50
== END | disposition home or self-care (01) ==
LOC: SDC 03-13 14:45
PROVIDERS: ATTEND Specialist
DX: H65.493 Other chronic nonsuppurative otitis media, bilateral (principal); I25.10 Atherosclerotic heart disease of native coronary artery without angina pectoris; J44.9 Chronic obstructive pulmonary disease, unspecified; M10.9 Gout, unspecified; I10 Essential (primary) hypertension; E10.9 Type 1 diabetes mellitus without complications; Z86.73 Personal history of transient ischemic attack (TIA), and cerebral infarction without residual deficits; F41.9 Anxiety disorder, unspecified; Z96.641 Presence of right artificial hip joint; E78.5 Hyperlipidemia, unspecified

== ENCOUNTER 2023-03-24 12:42 | Emergency (ER) | payer OTHER ==
[~2023-03-24] VITALS: Wt 88.5 kg
[2023-03-24 13:40] LABS: BASO % 0.4 % (0.0-1.0); EOS # 0.2 10*3/uL (0.0-0.4); EOS % 2.6 % (1.0-4.0); HEMATOCRIT 35.6 % (42.0-52.0); LYMPH # 1.5 10*3/uL (1.3-4.4); LYMPH % 16.1 % (27.0-41.0); MEAN CELL VOLUME 78.1 fl (80.0-94.0); MEAN CORPUSCULAR HGB CONC 29.5 g/dl (33.0-37.0); MEAN PLATELET VOLUME 10.3 fl (9.6-12.3); MONO # 0.5 10*3/uL (0.1-1.0); MONO % 5.5 % (3.0-9.0); NEUT % 75.1 % (47.0-73.0); PLATELET COUNT AUTOMATED 287 10*3/uL (130-400); RED BLOOD COUNT 4.56 10*6/uL (4.50-5.90); RED CELL DISTRI WIDTH 18.7 % (0-14.5); WHITE BLOOD COUNT 9.4 10*3/uL (4.8-10.8)
[2023-03-24 13:53] LABS: ACT PARTIAL THROMBO TIME 39.5 SECONDS (20.0-32.1); INTERNATIONAL NORM RATIO 1.5 (2.0-3.5)
[2023-03-24 14:25] LABS: POTASSIUM 3.8 mmol/L (3.4-5.1); TOTAL PROTEIN 6.7 gm/dL (6.0-8.0)
== END 2023-03-24 14:57 | disposition left against medical advice (07) ==
LOC: ED 12:42
PROVIDERS: Emergency Medicine
DX: R07.89 Other chest pain (principal); H92.02 Otalgia, left ear; E11.9 Type 2 diabetes mellitus without complications; Z79.4 Long term (current) use of insulin; E11.22 Type 2 diabetes mellitus with diabetic chronic kidney disease; I12.9 Hypertensive chronic kidney disease with stage 1 through stage 4 chronic kidney disease, or unspecified chronic kidney disease; N18.9 Chronic kidney disease, unspecified; M10.9 Gout, unspecified; E78.5 Hyperlipidemia, unspecified; F41.9 Anxiety disorder, unspecified; I25.10 Atherosclerotic heart disease of native coronary artery without angina pectoris; J44.9 Chronic obstructive pulmonary disease, unspecified; Z88.0 Allergy status to penicillin; Z88.1 Allergy status to other antibiotic agents; Z88.8 Allergy status to other drugs, medicaments and biological substances; Z90.49 Acquired absence of other specified parts of digestive tract; Z98.890 Other specified postprocedural states; F10.10 Alcohol abuse, uncomplicated; Z87.891 Personal history of nicotine dependence; F14.10 Cocaine abuse, uncomplicated; F11.10 Opioid abuse, uncomplicated; Z86.73 Personal history of transient ischemic attack (TIA), and cerebral infarction without residual deficits

== ENCOUNTER 2023-04-02 10:56 | Emergency (ER) | payer OTHER ==
[~2023-04-02] VITALS: Wt 99.8 kg
[2023-04-02 10:56] VITALS: BP 100/52
[2023-04-02 11:20] LABS: BASO % 0.4 % (0.0-1.0); EOS # 0.3 10*3/uL (0.0-0.4); EOS % 3.1 % (1.0-4.0); HEMATOCRIT 35.7 % (42.0-52.0); LYMPH # 1.8 10*3/uL (1.3-4.4); LYMPH % 18.8 % (27.0-41.0); MEAN CELL VOLUME 78.3 fl (80.0-94.0); MEAN CORPUSCULAR HGB CONC 29.4 g/dl (33.0-37.0); MEAN PLATELET VOLUME 10.2 fl (9.6-12.3); MONO # 0.5 10*3/uL (0.1-1.0); MONO % 5.4 % (3.0-9.0); NEUT # 6.8 10*3/uL (2.3-7.9); NEUT % 71.9 % (47.0-73.0); PLATELET COUNT AUTOMATED 238 10*3/uL (130-400); RED BLOOD COUNT 4.56 10*6/uL (4.50-5.90); RED CELL DISTRI WIDTH 18.4 % (0-14.5); WHITE BLOOD COUNT 9.5 10*3/uL (4.8-10.8)
[2023-04-02 11:31] LABS: ACT PARTIAL THROMBO TIME 35.7 SECONDS (20.0-32.1); INTERNATIONAL NORM RATIO 1.4 (2.0-3.5)
[2023-04-02 11:44] LABS: POTASSIUM 3.4 mmol/L (3.4-5.1)
== END 2023-04-02 12:58 | disposition home or self-care (01) ==
LOC: ED 10:56
PROVIDERS: Emergency Medicine
DX: R07.89 Other chest pain (principal); M79.602 Pain in left arm; M10.9 Gout, unspecified; I12.9 Hypertensive chronic kidney disease with stage 1 through stage 4 chronic kidney disease, or unspecified chronic kidney disease; E11.22 Type 2 diabetes mellitus with diabetic chronic kidney disease; N18.9 Chronic kidney disease, unspecified; F41.9 Anxiety disorder, unspecified; E78.5 Hyperlipidemia, unspecified; I48.91 Unspecified atrial fibrillation; I25.10 Atherosclerotic heart disease of native coronary artery without angina pectoris; J44.9 Chronic obstructive pulmonary disease, unspecified; Z79.4 Long term (current) use of insulin; Z86.73 Personal history of transient ischemic attack (TIA), and cerebral infarction without residual deficits; Z88.0 Allergy status to penicillin; Z88.1 Allergy status to other antibiotic agents; Z88.8 Allergy status to other drugs, medicaments and biological substances; Z90.49 Acquired absence of other specified parts of digestive tract; Z98.890 Other specified postprocedural states; Z95.5 Presence of coronary angioplasty implant and graft; F10.10 Alcohol abuse, uncomplicated; Z87.891 Personal history of nicotine dependence

== ENCOUNTER 2023-04-12 10:38 | Emergency (ER) | payer OTHER ==
[2023-04-12 10:43] VITALS: BP 124/73
[2023-04-12 11:24] LABS: BASO % 0.2 % (0.0-1.0); EOS # 0.2 10*3/uL (0.0-0.4); EOS % 2.4 % (1.0-4.0); HEMATOCRIT 35.1 % (42.0-52.0); LYMPH # 1.1 10*3/uL (1.3-4.4); LYMPH % 13.5 % (27.0-41.0); MEAN CELL VOLUME 76.8 fl (80.0-94.0); MEAN CORPUSCULAR HGB CONC 29.9 g/dl (33.0-37.0); MEAN PLATELET VOLUME 10.9 fl (9.6-12.3); MONO # 0.6 10*3/uL (0.1-1.0); MONO % 6.8 % (3.0-9.0); NEUT # 6.3 10*3/uL (2.3-7.9); NEUT % 76.7 % (47.0-73.0); PLATELET COUNT AUTOMATED 159 10*3/uL (130-400); RED BLOOD COUNT 4.57 10*6/uL (4.50-5.90); RED CELL DISTRI WIDTH 18.9 % (0-14.5); WHITE BLOOD COUNT 8.3 10*3/uL (4.8-10.8)
[2023-04-12 11:52] LABS: POTASSIUM 3.1 mmol/L (3.4-5.1); TOTAL PROTEIN 6.6 gm/dL (6.0-8.0)
== END 2023-04-12 13:44 | disposition home or self-care (01) ==
LOC: ED 10:38
PROVIDERS: Internal Medicine
DX: R42 Dizziness and giddiness (principal); I10 Essential (primary) hypertension; M10.9 Gout, unspecified; D64.9 Anemia, unspecified; E78.5 Hyperlipidemia, unspecified; I25.10 Atherosclerotic heart disease of native coronary artery without angina pectoris; J44.9 Chronic obstructive pulmonary disease, unspecified; E11.9 Type 2 diabetes mellitus without complications; Z86.73 Personal history of transient ischemic attack (TIA), and cerebral infarction without residual deficits; Z88.0 Allergy status to penicillin; Z88.1 Allergy status to other antibiotic agents; Z88.8 Allergy status to other drugs, medicaments and biological substances; Z90.49 Acquired absence of other specified parts of digestive tract; Z98.890 Other specified postprocedural states; Z87.891 Personal history of nicotine dependence; F10.10 Alcohol abuse, uncomplicated

== ENCOUNTER → 2023-04-13 | Outpatient (CLI) | payer OTHER | END | disposition home or self-care (01) | LOC: RAD 13:53 | PROVIDERS: ATTEND Specialist | DX: M26.622 Arthralgia of left temporomandibular joint (principal) ==

== ENCOUNTER 2023-04-19 14:46 | Emergency (ER) | payer OTHER ==
[~2023-04-19] VITALS: Ht 182.8 cm; Wt 145.1 kg
[2023-04-19 15:31] LABS: BASO % 0.5 % (0.0-1.0); EOS # 0.4 10*3/uL (0.0-0.4); EOS % 4.6 % (1.0-4.0); HEMATOCRIT 35.4 % (42.0-52.0); LYMPH # 1.6 10*3/uL (1.3-4.4); LYMPH % 19.4 % (27.0-41.0); MEAN CELL VOLUME 78.8 fl (80.0-94.0); MEAN CORPUSCULAR HGB 23.2 pg (27.0-31.0); MEAN CORPUSCULAR HGB CONC 29.4 g/dl (33.0-37.0); MEAN PLATELET VOLUME 11.1 fl (9.6-12.3); MONO # 0.5 10*3/uL (0.1-1.0); MONO % 6.5 % (3.0-9.0); NEUT # 5.5 10*3/uL (2.3-7.9); NEUT % 68.5 % (47.0-73.0); PLATELET COUNT AUTOMATED 189 10*3/uL (130-400); RED BLOOD COUNT 4.49 10*6/uL (4.50-5.90); RED CELL DISTRI WIDTH 19.6 % (0-14.5)
[2023-04-19 16:04] LABS: POTASSIUM 4.1 mmol/L (3.4-5.1); TOTAL PROTEIN 6.5 gm/dL (6.0-8.0)
[2023-04-19 16:21] VITALS: BP 124/67
== END 2023-04-19 18:33 | disposition home or self-care (01) ==
LOC: ED 14:46
PROVIDERS: Nurse Practitioner Family
DX: R07.89 Other chest pain (principal); R42 Dizziness and giddiness; E11.65 Type 2 diabetes mellitus with hyperglycemia; I25.10 Atherosclerotic heart disease of native coronary artery without angina pectoris; Z86.73 Personal history of transient ischemic attack (TIA), and cerebral infarction without residual deficits; I50.9 Heart failure, unspecified; J44.9 Chronic obstructive pulmonary disease, unspecified; I48.91 Unspecified atrial fibrillation; E78.5 Hyperlipidemia, unspecified; Z79.4 Long term (current) use of insulin; M10.9 Gout, unspecified; E11.22 Type 2 diabetes mellitus with diabetic chronic kidney disease; I13.0 Hypertensive heart and chronic kidney disease with heart failure and stage 1 through stage 4 chronic kidney disease, or unspecified chronic kidney disease; N18.9 Chronic kidney disease, unspecified; F41.9 Anxiety disorder, unspecified; Z88.0 Allergy status to penicillin; Z88.1 Allergy status to other antibiotic agents; Z88.8 Allergy status to other drugs, medicaments and biological substances; Z95.5 Presence of coronary angioplasty implant and graft; Z98.890 Other specified postprocedural states; Z90.49 Acquired absence of other specified parts of digestive tract; F10.10 Alcohol abuse, uncomplicated; Z87.891 Personal history of nicotine dependence; F14.10 Cocaine abuse, uncomplicated; F11.10 Opioid abuse, uncomplicated

== ENCOUNTER 2023-04-21 15:50 | Emergency (ER) | payer OTHER | END 2023-04-21 16:25 | disposition left against medical advice (07) | LOC: ED 15:50 | DX: R73.09 Other abnormal glucose (principal); Z53.21 Procedure and treatment not carried out due to patient leaving prior to being seen by health care provider ==

== ENCOUNTER → 2023-05-20 | Day surgery (SDC) | payer OTHER ==
[2023-05-20] VITALS (7 sets, daily range): BP systolic 102–140; BP diastolic 52–75
[~2023-05-20] VITALS: Ht 182.8 cm; Wt 113.4 kg
== END ==
LOC: SDC 05-15 11:00
PROVIDERS: ATTEND Specialist
DX: H65.493 Other chronic nonsuppurative otitis media, bilateral (principal); H10.13 Acute atopic conjunctivitis, bilateral; H66.12 Chronic tubotympanic suppurative otitis media, left ear; H69.93 Unspecified Eustachian tube disorder, bilateral; H92.02 Otalgia, left ear; M26.622 Arthralgia of left temporomandibular joint; E11.39 Type 2 diabetes mellitus with other diabetic ophthalmic complication; H42 Glaucoma in diseases classified elsewhere; I10 Essential (primary) hypertension; I25.10 Atherosclerotic heart disease of native coronary artery without angina pectoris; J44.9 Chronic obstructive pulmonary disease, unspecified; E78.00 Pure hypercholesterolemia, unspecified; M10.9 Gout, unspecified; Z98.890 Other specified postprocedural states

== ENCOUNTER 2023-05-25 05:55 | Emergency (ER) | payer OTHER ==
[~2023-05-25] VITALS: Ht 182.8 cm; Wt 99.8 kg
[2023-05-25 06:32] LABS: BASO % 0.3 % (0.0-1.0); EOS # 0.2 10*3/uL (0.0-0.4); EOS % 2.8 % (1.0-4.0); LYMPH # 1.5 10*3/uL (1.3-4.4); LYMPH % 20.6 % (27.0-41.0); MEAN CELL VOLUME 79.7 fl (80.0-94.0); MEAN CORPUSCULAR HGB 23.5 pg (27.0-31.0); MEAN CORPUSCULAR HGB CONC 29.5 g/dl (33.0-37.0); MEAN PLATELET VOLUME 10.3 fl (9.6-12.3); MONO # 0.4 10*3/uL (0.1-1.0); MONO % 6.2 % (3.0-9.0); NEUT % 69.8 % (47.0-73.0); PLATELET COUNT AUTOMATED 168 10*3/uL (130-400); RED BLOOD COUNT 4.64 10*6/uL (4.50-5.90); RED CELL DISTRI WIDTH 20.4 % (0-14.5); WHITE BLOOD COUNT 7.1 10*3/uL (4.8-10.8)
[2023-05-25 06:47] LABS: ACT PARTIAL THROMBO TIME 30.9 SECONDS (20.0-32.1); INTERNATIONAL NORM RATIO 1.2 (2.0-3.5)
[2023-05-25 07:00] LABS: POTASSIUM 4.5 mmol/L (3.4-5.1)
[2023-05-25 09:17] VITALS: BP 128/70
== END 2023-05-25 09:18 | disposition home or self-care (01) ==
LOC: ED 05:55
PROVIDERS: Emergency Medicine
DX: E11.649 Type 2 diabetes mellitus with hypoglycemia without coma (principal); I25.10 Atherosclerotic heart disease of native coronary artery without angina pectoris; I48.91 Unspecified atrial fibrillation; I50.9 Heart failure, unspecified; E11.22 Type 2 diabetes mellitus with diabetic chronic kidney disease; I13.0 Hypertensive heart and chronic kidney disease with heart failure and stage 1 through stage 4 chronic kidney disease, or unspecified chronic kidney disease; N18.30 Chronic kidney disease, stage 3 unspecified; J44.9 Chronic obstructive pulmonary disease, unspecified; Z79.4 Long term (current) use of insulin; K21.9 Gastro-esophageal reflux disease without esophagitis; E78.5 Hyperlipidemia, unspecified; E83.42 Hypomagnesemia; D64.9 Anemia, unspecified; Z86.73 Personal history of transient ischemic attack (TIA), and cerebral infarction without residual deficits; M10.9 Gout, unspecified; I25.2 Old myocardial infarction; F41.9 Anxiety disorder, unspecified; Z88.8 Allergy status to other drugs, medicaments and biological substances; Z88.0 Allergy status to penicillin; Z88.1 Allergy status to other antibiotic agents; Z98.890 Other specified postprocedural states; Z90.49 Acquired absence of other specified parts of digestive tract; F10.10 Alcohol abuse, uncomplicated; Z87.891 Personal history of nicotine dependence; F14.10 Cocaine abuse, uncomplicated; F11.10 Opioid abuse, uncomplicated

== ENCOUNTER → 2023-06-16 | Outpatient (CLI) | payer OTHER | END | disposition home or self-care (01) | LOC: CT 01:41 | PROVIDERS: ATTEND Specialist | DX: H70.11 Chronic mastoiditis, right ear (principal); H66.3X2 Other chronic suppurative otitis media, left ear; H05.223 Edema of bilateral orbit ==

== ENCOUNTER 2023-06-30 19:54 | Emergency (ER) | payer OTHER ==
[~2023-06-30] VITALS: Ht 182.8 cm; Wt 108.6 kg
[2023-06-30 20:03] VITALS: BP 121/85
[2023-06-30 20:14] LABS: BASO % 0.3 % (0.0-1.0); EOS # 0.2 10*3/uL (0.0-0.4); EOS % 2.1 % (1.0-4.0); HEMATOCRIT 35.8 % (42.0-52.0); LYMPH # 2.1 10*3/uL (1.3-4.4); LYMPH % 28.8 % (27.0-41.0); MEAN CELL VOLUME 82.3 fl (80.0-94.0); MEAN CORPUSCULAR HGB 24.4 pg (27.0-31.0); MEAN CORPUSCULAR HGB CONC 29.6 g/dl (33.0-37.0); MONO # 0.7 10*3/uL (0.1-1.0); MONO % 9.3 % (3.0-9.0); NEUT # 4.2 10*3/uL (2.3-7.9); NEUT % 59.2 % (47.0-73.0); PLATELET COUNT AUTOMATED 164 10*3/uL (130-400); RED BLOOD COUNT 4.35 10*6/uL (4.50-5.90); RED CELL DISTRI WIDTH 20.5 % (0-14.5); WHITE BLOOD COUNT 7.1 10*3/uL (4.8-10.8)
[2023-06-30 20:28] LABS: ACT PARTIAL THROMBO TIME 30.2 SECONDS (20.0-32.1); INTERNATIONAL NORM RATIO 1.3 (2.0-3.5)
[2023-06-30 20:36] LABS: ALKALINE PHOSPHATASE 89 U/L (46-116); BUN 43 mg/dl (9-23); CHLORIDE 109 mmol/L (98-107); LIPASE 95 U/L (12-53); POTASSIUM 4.1 mmol/L (3.4-5.1); SGPT/ALT 29 U/L (10-49); TOTAL PROTEIN 6.2 gm/dL (6.0-8.0)
== END 2023-06-30 22:27 | disposition home or self-care (01) ==
LOC: ED 19:54
PROVIDERS: Internal Medicine
DX: R07.89 Other chest pain (principal); I48.91 Unspecified atrial fibrillation; I25.10 Atherosclerotic heart disease of native coronary artery without angina pectoris; J44.9 Chronic obstructive pulmonary disease, unspecified; E11.9 Type 2 diabetes mellitus without complications; Z79.4 Long term (current) use of insulin; Z86.73 Personal history of transient ischemic attack (TIA), and cerebral infarction without residual deficits; M10.9 Gout, unspecified; I25.2 Old myocardial infarction; D64.9 Anemia, unspecified; Z88.0 Allergy status to penicillin; Z88.1 Allergy status to other antibiotic agents; Z88.8 Allergy status to other drugs, medicaments and biological substances; Z90.49 Acquired absence of other specified parts of digestive tract; Z95.5 Presence of coronary angioplasty implant and graft; Z98.890 Other specified postprocedural states; F10.10 Alcohol abuse, uncomplicated; Z87.891 Personal history of nicotine dependence; F14.10 Cocaine abuse, uncomplicated

== ENCOUNTER → 2023-06-30 | Outpatient (CLI) | payer OTHER ==
[2023-06-30 10:16] LABS: BILIRUBIN Negative (Negative); BLOOD Negative (Negative); CLARITY Clear (Clear); COLOR Yellow (Yellow); GLUCOSE 2+ (Negative); KETONE Negative (Negative); LEUKO ESTERASE Negative (Negative); NITRITE Negative (Negative); PH 7.5 (4.5-8.0); UROBILINOGEN 0.2 E.U./dl (0.0-1.0)
[2023-06-30 10:24] LABS: EPITHELIAL CELLS 0-2
[2023-06-30 10:42] LABS: FREE T4 1.44 ng/dl (0.89-1.76); POTASSIUM 4.3 mmol/L (3.4-5.1); TOTAL PROTEIN 6.4 gm/dL (6.0-8.0)
== END | disposition home or self-care (01) ==
LOC: LAB 08:57
PROVIDERS: ATTEND Internal Medicine
DX: E11.65 Type 2 diabetes mellitus with hyperglycemia (principal); E03.9 Hypothyroidism, unspecified; E55.9 Vitamin D deficiency, unspecified; G62.9 Polyneuropathy, unspecified; E78.2 Mixed hyperlipidemia

== ENCOUNTER → 2023-07-03 | Outpatient (CLI) | payer OTHER | LOC: WOUNDCARE 03:18 → Z2ND 12:24 → WOUNDCARE 12:26 | PROVIDERS: ATTEND Nurse Practitioner Family | DX: Z53.21 Procedure and treatment not carried out due to patient leaving prior to being seen by health care provider (principal) ==

== ENCOUNTER → 2023-07-16 | Outpatient (CLI) | payer OTHER | LOC: WOUNDCARE 11:42 | PROVIDERS: ATTEND Nurse Practitioner Family | DX: E11.621 Type 2 diabetes mellitus with foot ulcer (principal); L97.412 Non-pressure chronic ulcer of right heel and midfoot with fat layer exposed; L97.521 Non-pressure chronic ulcer of other part of left foot limited to breakdown of skin; E11.51 Type 2 diabetes mellitus with diabetic peripheral angiopathy without gangrene; E11.40 Type 2 diabetes mellitus with diabetic neuropathy, unspecified; E11.22 Type 2 diabetes mellitus with diabetic chronic kidney disease; I12.9 Hypertensive chronic kidney disease with stage 1 through stage 4 chronic kidney disease, or unspecified chronic kidney disease; N18.30 Chronic kidney disease, stage 3 unspecified; E03.9 Hypothyroidism, unspecified; E78.5 Hyperlipidemia, unspecified; J44.9 Chronic obstructive pulmonary disease, unspecified; F41.9 Anxiety disorder, unspecified; Z95.5 Presence of coronary angioplasty implant and graft; Z87.891 Personal history of nicotine dependence; Z96.641 Presence of right artificial hip joint; Z90.49 Acquired absence of other specified parts of digestive tract; Z89.412 Acquired absence of left great toe; Z89.421 Acquired absence of other right toe(s) ==

== ENCOUNTER → 2023-07-20 | Outpatient (CLI) | payer OTHER ==
[~2023-07-20] MED LIST changes: +DILTIAZEM HCL120 M2 PO; +LEVOTHYROXINE150 MCG PO; +OMEGA-3-ACID ETH1 GM PO
== END | disposition home or self-care (01) ==
LOC: WOUNDCARE 01:46
PROVIDERS: ATTEND Nurse Practitioner Family
DX: E11.621 Type 2 diabetes mellitus with foot ulcer (principal); L97.412 Non-pressure chronic ulcer of right heel and midfoot with fat layer exposed; L97.521 Non-pressure chronic ulcer of other part of left foot limited to breakdown of skin; S80.811A Abrasion, right lower leg, initial encounter; E11.51 Type 2 diabetes mellitus with diabetic peripheral angiopathy without gangrene; E11.40 Type 2 diabetes mellitus with diabetic neuropathy, unspecified; E11.22 Type 2 diabetes mellitus with diabetic chronic kidney disease; I12.9 Hypertensive chronic kidney disease with stage 1 through stage 4 chronic kidney disease, or unspecified chronic kidney disease; N18.30 Chronic kidney disease, stage 3 unspecified; E78.5 Hyperlipidemia, unspecified; E03.9 Hypothyroidism, unspecified; J44.9 Chronic obstructive pulmonary disease, unspecified; Z87.891 Personal history of nicotine dependence; Z95.5 Presence of coronary angioplasty implant and graft; Z96.641 Presence of right artificial hip joint; Z90.49 Acquired absence of other specified parts of digestive tract; Z89.412 Acquired absence of left great toe; X58.XXXA Exposure to other specified factors, initial encounter; Y93.89 Activity, other specified; Y92.89 Other specified places as the place of occurrence of the external cause; Y99.8 Other external cause status

== ENCOUNTER 2023-07-24 19:22 | Emergency (ER) | payer OTHER ==
[~2023-07-24] VITALS: Ht 172.7 cm; Wt 108.9 kg
[2023-07-24 19:22] VITALS: BP 112/42
[2023-07-24 19:57] LABS: HEMATOCRIT 33.9 % (42.0-52.0); MEAN CELL VOLUME 80.5 fl (80.0-94.0); MEAN CORPUSCULAR HGB 24.9 pg (27.0-31.0); MEAN PLATELET VOLUME 11.8 fl (9.6-12.3); PLATELET COUNT AUTOMATED 149 10*3/uL (130-400); RED BLOOD COUNT 4.21 10*6/uL (4.50-5.90); RED CELL DISTRI WIDTH 19.3 % (0-14.5)
[2023-07-24 19:58] LABS: MANUAL DIFF REFLEX YES
[2023-07-24 20:08] LABS: INTERNATIONAL NORM RATIO 1.2 (2.0-3.5)
[2023-07-24 20:21] LABS: PLATELET SUFFICIENCY NORMAL (NORMAL); TOTAL CELLS COUNTED 100 #CELLS
[2023-07-24 20:22] LABS: BURR CELLS FEW; OVALOCYTES FEW; SCHISTOCYTES FEW
[2023-07-24 20:23] LABS: POLYCHROMASIA SLIGHT
[2023-07-24 20:24] LABS: POTASSIUM 3.9 mmol/L (3.4-5.1)
[2023-07-24] MEDS ORDERED: LEVOFLOXACIN500 MG PO (22:48)
[2023-07-26] MEDS ORDERED: HYDROCODONE-AC1 EACH PO (17:33)
== END 2023-07-24 23:18 | disposition home or self-care (01) ==
LOC: ED 19:22
PROVIDERS: Internal Medicine
DX: R07.89 Other chest pain (principal); E11.65 Type 2 diabetes mellitus with hyperglycemia; I25.10 Atherosclerotic heart disease of native coronary artery without angina pectoris; J44.9 Chronic obstructive pulmonary disease, unspecified; Z79.4 Long term (current) use of insulin; Z86.73 Personal history of transient ischemic attack (TIA), and cerebral infarction without residual deficits; I10 Essential (primary) hypertension; M10.9 Gout, unspecified; I25.2 Old myocardial infarction; I48.91 Unspecified atrial fibrillation; D64.9 Anemia, unspecified; Z88.8 Allergy status to other drugs, medicaments and biological substances; Z88.0 Allergy status to penicillin; Z88.1 Allergy status to other antibiotic agents; Z98.890 Other specified postprocedural states; Z90.49 Acquired absence of other specified parts of digestive tract; Z95.5 Presence of coronary angioplasty implant and graft; F10.10 Alcohol abuse, uncomplicated; F14.10 Cocaine abuse, uncomplicated; Z87.891 Personal history of nicotine dependence; F11.10 Opioid abuse, uncomplicated

== ENCOUNTER 2023-08-18 11:19 | Emergency (ER) | payer OTHER ==
[~2023-08-18] VITALS: Ht 190.5 cm; Wt 107.5 kg
[~2023-08-18 11:19] MED LIST changes: +ACCUNEB 0.1.25 MG/1 INH; +CODEINE-GUAIFE120 M1 PO; +HYDROCODONE-AC1 EACH PO; +Ipratropium Brom3 ML NEB
[2023-08-18 12:15] LABS: BASO % 0.3 % (0.0-1.0); EOS # 0.6 10*3/uL (0.0-0.4); EOS % 7.2 % (1.0-4.0); HEMATOCRIT 35.7 % (42.0-52.0); LYMPH # 1.2 10*3/uL (1.3-4.4); LYMPH % 14.9 % (27.0-41.0); MEAN CELL VOLUME 81.9 fl (80.0-94.0); MEAN CORPUSCULAR HGB CONC 30.5 g/dl (33.0-37.0); MEAN PLATELET VOLUME 10.6 fl (9.6-12.3); MONO # 0.5 10*3/uL (0.1-1.0); NEUT # 5.7 10*3/uL (2.3-7.9); NEUT % 71.1 % (47.0-73.0); PLATELET COUNT AUTOMATED 184 10*3/uL (130-400); RED BLOOD COUNT 4.36 10*6/uL (4.50-5.90); RED CELL DISTRI WIDTH 19.8 % (0-14.5)
[2023-08-18 12:26] LABS: ACT PARTIAL THROMBO TIME 33.9 SECONDS (20.0-32.1); INTERNATIONAL NORM RATIO 1.3 (2.0-3.5)
[2023-08-18 12:36] LABS: POTASSIUM 3.6 mmol/L (3.4-5.1)
[2023-08-18 12:48] VITALS: BP 114/72
[2023-08-18 13:29] LABS: BILIRUBIN Negative (Negative); BLOOD Negative (Negative); CLARITY Clear (Clear); COLOR Yellow (Yellow); GLUCOSE 3+ (Negative); KETONE Negative (Negative); LEUKO ESTERASE Negative (Negative); NITRITE Negative (Negative); UROBILINOGEN 0.2 E.U./dl (0.0-1.0)
[2023-08-18 13:38] LABS: EPITHELIAL CELLS 0-2
== END 2023-08-18 14:30 | disposition home or self-care (01) ==
LOC: ED 11:19
PROVIDERS: Student in an Organized Health Care Education/Training Program
DX: I48.91 Unspecified atrial fibrillation (principal); R07.89 Other chest pain; Z88.1 Allergy status to other antibiotic agents; Z88.8 Allergy status to other drugs, medicaments and biological substances; Z88.0 Allergy status to penicillin; Z79.899 Other long term (current) drug therapy; Z79.4 Long term (current) use of insulin; Z79.82 Long term (current) use of aspirin; Z95.5 Presence of coronary angioplasty implant and graft; Z89.422 Acquired absence of other left toe(s); Z89.412 Acquired absence of left great toe; Z89.431 Acquired absence of right foot; Z96.641 Presence of right artificial hip joint; Z87.891 Personal history of nicotine dependence

== ENCOUNTER → 2023-08-20 | Outpatient (CLI) | payer OTHER | LOC: WOUNDCARE 00:53 | PROVIDERS: ATTEND Nurse Practitioner Family | DX: E11.621 Type 2 diabetes mellitus with foot ulcer (principal); L97.412 Non-pressure chronic ulcer of right heel and midfoot with fat layer exposed; L97.521 Non-pressure chronic ulcer of other part of left foot limited to breakdown of skin; L84 Corns and callosities; S80.811D Abrasion, right lower leg, subsequent encounter; E11.51 Type 2 diabetes mellitus with diabetic peripheral angiopathy without gangrene; E11.22 Type 2 diabetes mellitus with diabetic chronic kidney disease; I12.9 Hypertensive chronic kidney disease with stage 1 through stage 4 chronic kidney disease, or unspecified chronic kidney disease; N18.30 Chronic kidney disease, stage 3 unspecified; E11.40 Type 2 diabetes mellitus with diabetic neuropathy, unspecified; E78.5 Hyperlipidemia, unspecified; E03.9 Hypothyroidism, unspecified; J44.9 Chronic obstructive pulmonary disease, unspecified; Z87.891 Personal history of nicotine dependence; Z95.5 Presence of coronary angioplasty implant and graft; Z96.641 Presence of right artificial hip joint; Z90.49 Acquired absence of other specified parts of digestive tract; Z89.412 Acquired absence of left great toe; Z89.422 Acquired absence of other left toe(s); Z89.421 Acquired absence of other right toe(s); X58.XXXD Exposure to other specified factors, subsequent encounter ==

== ENCOUNTER 2023-08-22 12:47 | Emergency (ER) | payer OTHER ==
[~2023-08-22] VITALS: Ht 182.8 cm; Wt 101.2 kg
[2023-08-22 13:40] LABS: BASO % 0.4 % (0.0-1.0); EOS # 0.6 10*3/uL (0.0-0.4); EOS % 8.3 % (1.0-4.0); LYMPH # 1.2 10*3/uL (1.3-4.4); LYMPH % 16.5 % (27.0-41.0); MEAN CELL VOLUME 82.3 fl (80.0-94.0); MEAN CORPUSCULAR HGB 24.9 pg (27.0-31.0); MEAN CORPUSCULAR HGB CONC 30.3 g/dl (33.0-37.0); MEAN PLATELET VOLUME 10.7 fl (9.6-12.3); MONO # 0.5 10*3/uL (0.1-1.0); MONO % 6.7 % (3.0-9.0); NEUT # 4.8 10*3/uL (2.3-7.9); NEUT % 67.7 % (47.0-73.0); PLATELET COUNT AUTOMATED 181 10*3/uL (130-400); RED BLOOD COUNT 3.89 10*6/uL (4.50-5.90); RED CELL DISTRI WIDTH 19.4 % (0-14.5); WHITE BLOOD COUNT 7.1 10*3/uL (4.8-10.8)
[2023-08-22 13:51] LABS: INTERNATIONAL NORM RATIO 1.4 (2.0-3.5)
[2023-08-22 14:03] LABS: POTASSIUM 4.4 mmol/L (3.4-5.1); TOTAL PROTEIN 5.8 gm/dL (6.0-8.0)
[2023-08-22 14:55] VITALS: BP 128/72
[2023-08-22] MEDS ORDERED: PREDNISONE10 MG PO (16:18)
[2023-08-22] MEDS ORDERED: OMNICEF300 MG PO (16:18)
== END 2023-08-22 17:57 | disposition home or self-care (01) ==
LOC: ED 12:47
PROVIDERS: Family Medicine
DX: J44.1 Chronic obstructive pulmonary disease with (acute) exacerbation (principal); R07.89 Other chest pain; E11.9 Type 2 diabetes mellitus without complications; Z88.1 Allergy status to other antibiotic agents; Z88.0 Allergy status to penicillin; Z79.899 Other long term (current) drug therapy; Z79.4 Long term (current) use of insulin; Z79.2 Long term (current) use of antibiotics; Z79.82 Long term (current) use of aspirin; Z95.5 Presence of coronary angioplasty implant and graft; Z96.641 Presence of right artificial hip joint; Z90.49 Acquired absence of other specified parts of digestive tract; Z89.422 Acquired absence of other left toe(s); Z89.412 Acquired absence of left great toe; Z87.891 Personal history of nicotine dependence

== ENCOUNTER 2023-08-23 09:12 | Emergency (ER) | payer OTHER ==
[~2023-08-23] VITALS: Ht 190.5 cm; Wt 104.3 kg
[2023-08-23 09:25] VITALS: BP 131/51
[2023-08-23 10:08] LABS: HEMATOCRIT 31.7 % (42.0-52.0); MEAN CELL VOLUME 80.9 fl (80.0-94.0); MEAN CORPUSCULAR HGB CONC 30.9 g/dl (33.0-37.0); MEAN PLATELET VOLUME 11.2 fl (9.6-12.3); PLATELET COUNT AUTOMATED 198 10*3/uL (130-400); RED BLOOD COUNT 3.92 10*6/uL (4.50-5.90); WHITE BLOOD COUNT 8.2 10*3/uL (4.8-10.8)
[2023-08-23 10:16] LABS: MANUAL DIFF REFLEX YES
[2023-08-23 10:29] LABS: PLATELET SUFFICIENCY NORMAL (NORMAL); POLYCHROMASIA SLIGHT; TOTAL CELLS COUNTED 100 #CELLS
[2023-08-23 10:30] LABS: ACANTHOCYTES FEW; BURR CELLS FEW
[2023-08-23 10:31] LABS: OVALOCYTES MODERATE
[2023-08-23 10:37] LABS: POTASSIUM 4.5 mmol/L (3.4-5.1)
[2023-08-23 11:06] LABS: BILIRUBIN Negative (Negative); BLOOD Negative (Negative); CLARITY Clear (Clear); COLOR Yellow (Yellow); GLUCOSE 3+ (Negative); KETONE Negative (Negative); LEUKO ESTERASE Negative (Negative); NITRITE Negative (Negative); UROBILINOGEN 0.2 E.U./dl (0.0-1.0)
[2023-08-23 11:23] LABS: EPITHELIAL CELLS 0-2
== END 2023-08-23 14:07 | disposition home or self-care (01) ==
LOC: ED 09:12
PROVIDERS: Internal Medicine
DX: E11.65 Type 2 diabetes mellitus with hyperglycemia (principal); M25.551 Pain in right hip; I25.10 Atherosclerotic heart disease of native coronary artery without angina pectoris; J44.9 Chronic obstructive pulmonary disease, unspecified; Z79.4 Long term (current) use of insulin; Z86.73 Personal history of transient ischemic attack (TIA), and cerebral infarction without residual deficits; I10 Essential (primary) hypertension; M10.9 Gout, unspecified; I25.2 Old myocardial infarction; I48.91 Unspecified atrial fibrillation; D64.9 Anemia, unspecified; Z88.0 Allergy status to penicillin; Z88.8 Allergy status to other drugs, medicaments and biological substances; Z90.49 Acquired absence of other specified parts of digestive tract; Z98.890 Other specified postprocedural states; Z95.5 Presence of coronary angioplasty implant and graft; Z87.891 Personal history of nicotine dependence; F14.10 Cocaine abuse, uncomplicated; F11.10 Opioid abuse, uncomplicated; F10.10 Alcohol abuse, uncomplicated

== ENCOUNTER → 2023-08-27 | Outpatient (CLI) | payer OTHER | END | disposition home or self-care (01) | LOC: WOUNDCARE 00:50 | PROVIDERS: ATTEND Nurse Practitioner Family | DX: E11.621 Type 2 diabetes mellitus with foot ulcer (principal); L97.412 Non-pressure chronic ulcer of right heel and midfoot with fat layer exposed; L97.521 Non-pressure chronic ulcer of other part of left foot limited to breakdown of skin; S60.512D Abrasion of left hand, subsequent encounter; E11.51 Type 2 diabetes mellitus with diabetic peripheral angiopathy without gangrene; E11.40 Type 2 diabetes mellitus with diabetic neuropathy, unspecified; E11.22 Type 2 diabetes mellitus with diabetic chronic kidney disease; I12.9 Hypertensive chronic kidney disease with stage 1 through stage 4 chronic kidney disease, or unspecified chronic kidney disease; N18.30 Chronic kidney disease, stage 3 unspecified; J44.9 Chronic obstructive pulmonary disease, unspecified; E03.9 Hypothyroidism, unspecified; E78.5 Hyperlipidemia, unspecified; Z87.891 Personal history of nicotine dependence; Z95.5 Presence of coronary angioplasty implant and graft; Z96.641 Presence of right artificial hip joint; Z90.49 Acquired absence of other specified parts of digestive tract; Z89.412 Acquired absence of left great toe; Z89.422 Acquired absence of other left toe(s); Z89.421 Acquired absence of other right toe(s); X58.XXXD Exposure to other specified factors, subsequent encounter ==

== ENCOUNTER 2023-09-03 13:07 | Emergency (ER) | payer OTHER ==
[2023-09-03 13:12] VITALS: BP 121/83
[2023-09-03 14:15] LABS: BASO % 0.3 % (0.0-1.0); EOS # 0.4 10*3/uL (0.0-0.4); EOS % 3.4 % (1.0-4.0); HEMATOCRIT 33.7 % (42.0-52.0); LYMPH # 1.3 10*3/uL (1.3-4.4); LYMPH % 12.3 % (27.0-41.0); MEAN CELL VOLUME 81.4 fl (80.0-94.0); MEAN CORPUSCULAR HGB 25.1 pg (27.0-31.0); MEAN CORPUSCULAR HGB CONC 30.9 g/dl (33.0-37.0); MEAN PLATELET VOLUME 10.8 fl (9.6-12.3); MONO # 0.6 10*3/uL (0.1-1.0); MONO % 5.9 % (3.0-9.0); NEUT # 8.2 10*3/uL (2.3-7.9); NEUT % 77.5 % (47.0-73.0); PLATELET COUNT AUTOMATED 202 10*3/uL (130-400); RED BLOOD COUNT 4.14 10*6/uL (4.50-5.90); RED CELL DISTRI WIDTH 18.3 % (0-14.5); WHITE BLOOD COUNT 10.6 10*3/uL (4.8-10.8)
[2023-09-03 14:27] LABS: BILIRUBIN Negative (Negative); BLOOD Negative (Negative); CLARITY Clear (Clear); COLOR Yellow (Yellow); GLUCOSE 3+ (Negative); KETONE Negative (Negative); LEUKO ESTERASE Negative (Negative); NITRITE Negative (Negative); PH 6.5 (4.5-8.0); SPECIFIC GRAVITY 1.015 (1.001-1.030); UROBILINOGEN 0.2 E.U./dl (0.0-1.0)
[2023-09-03 14:29] LABS: ACT PARTIAL THROMBO TIME 27.6 SECONDS (20.0-32.1); INTERNATIONAL NORM RATIO 1.1 (2.0-3.5)
[2023-09-03 15:01] LABS: MUCOUS TRACE; RBC 0-2 rbc/hpf (0-2)
[2023-09-03] MEDS ORDERED: OMNICEF300 MG PO (15:29)
== END 2023-09-03 15:32 | disposition home or self-care (01) ==
LOC: ED 13:07
PROVIDERS: Student in an Organized Health Care Education/Training Program
DX: J20.9 Acute bronchitis, unspecified (principal); E11.65 Type 2 diabetes mellitus with hyperglycemia; Z88.1 Allergy status to other antibiotic agents; Z88.0 Allergy status to penicillin; Z79.899 Other long term (current) drug therapy; Z79.4 Long term (current) use of insulin; Z79.2 Long term (current) use of antibiotics; Z79.82 Long term (current) use of aspirin; Z95.5 Presence of coronary angioplasty implant and graft; Z96.641 Presence of right artificial hip joint; Z90.49 Acquired absence of other specified parts of digestive tract; Z89.422 Acquired absence of other left toe(s); Z89.431 Acquired absence of right foot; Z87.891 Personal history of nicotine dependence

== ENCOUNTER → 2023-09-08 | Day surgery (SDC) | payer OTHER ==
[~2023-09-08] VITALS: Ht 182.8 cm; Wt 104.8 kg
[2023-09-08 06:59] VITALS: BP 135/57
[2023-09-08 09:17] VITALS: BP 121/83
[2023-09-08 09:30] VITALS: BP 118/58
[2023-09-08 09:47] VITALS: BP 117/57
[2023-09-09 14:08] LABS: ACID FAST SPEC PROCESSING Concentration (.)
== END | disposition home or self-care (01) ==
LOC: SDC 09-03 08:45
PROVIDERS: ATTEND Internal Medicine Critical Care Medicine
DX: R05.3 Chronic cough (principal); J44.9 Chronic obstructive pulmonary disease, unspecified; G47.33 Obstructive sleep apnea (adult) (pediatric); I25.2 Old myocardial infarction; I10 Essential (primary) hypertension; I25.10 Atherosclerotic heart disease of native coronary artery without angina pectoris; E11.9 Type 2 diabetes mellitus without complications; M10.9 Gout, unspecified; Z86.73 Personal history of transient ischemic attack (TIA), and cerebral infarction without residual deficits; Z87.891 Personal history of nicotine dependence; Z88.1 Allergy status to other antibiotic agents; Z96.641 Presence of right artificial hip joint; Z79.899 Other long term (current) drug therapy

== ENCOUNTER 2023-09-15 11:24 | Emergency (ER) | payer OTHER ==
[2023-09-15 11:40] VITALS: BP 127/85
[2023-09-15] MEDS ORDERED: SPIRIVA RESPIMAT4 GM INH (13:00)
[2023-09-15 13:03] LABS: POTASSIUM 4.3 mmol/L (3.4-5.1); TOTAL PROTEIN 6.8 gm/dL (6.0-8.0)
[2023-09-15] MEDS ORDERED: HUMALOG 751 UNIT/0.0 SC ×2 (13:07→13:11)
[2023-09-15 13:11] LABS: ACT PARTIAL THROMBO TIME 27.4 SECONDS (20.0-32.1)
[2023-09-15 13:45] LABS: BASO # 0.1 10*3/uL (0.0-0.1); BASO % 0.5 % (0.0-1.0); EOS # 0.5 10*3/uL (0.0-0.4); EOS % 4.8 % (1.0-4.0); HEMATOCRIT 43.6 % (42.0-52.0); LYMPH # 2.4 10*3/uL (1.3-4.4); LYMPH % 24.9 % (27.0-41.0); MEAN CELL VOLUME 81.3 fl (80.0-94.0); MEAN CORPUSCULAR HGB 24.6 pg (27.0-31.0); MEAN CORPUSCULAR HGB CONC 30.3 g/dl (33.0-37.0); MEAN PLATELET VOLUME 10.9 fl (9.6-12.3); MONO # 0.7 10*3/uL (0.1-1.0); MONO % 7.6 % (3.0-9.0); NEUT % 61.8 % (47.0-73.0); PLATELET COUNT AUTOMATED 197 10*3/uL (130-400); RED BLOOD COUNT 5.36 10*6/uL (4.50-5.90); RED CELL DISTRI WIDTH 18.6 % (0-14.5); WHITE BLOOD COUNT 9.7 10*3/uL (4.8-10.8)
[2023-09-15] MEDS ORDERED: CEFDINIR300 MG PO (14:02)
== END 2023-09-15 13:59 | disposition home or self-care (01) ==
LOC: ED 11:24
PROVIDERS: Physician Assistant Medical
DX: J44.1 Chronic obstructive pulmonary disease with (acute) exacerbation (principal); I25.10 Atherosclerotic heart disease of native coronary artery without angina pectoris; I48.91 Unspecified atrial fibrillation; E11.22 Type 2 diabetes mellitus with diabetic chronic kidney disease; Z79.4 Long term (current) use of insulin; M10.9 Gout, unspecified; D64.9 Anemia, unspecified; Z86.73 Personal history of transient ischemic attack (TIA), and cerebral infarction without residual deficits; I12.9 Hypertensive chronic kidney disease with stage 1 through stage 4 chronic kidney disease, or unspecified chronic kidney disease; N18.9 Chronic kidney disease, unspecified; Z88.8 Allergy status to other drugs, medicaments and biological substances; Z88.0 Allergy status to penicillin; Z88.1 Allergy status to other antibiotic agents; Z90.49 Acquired absence of other specified parts of digestive tract; Z98.890 Other specified postprocedural states; Z95.5 Presence of coronary angioplasty implant and graft; F10.10 Alcohol abuse, uncomplicated; Z87.891 Personal history of nicotine dependence

== ENCOUNTER 2023-09-27 17:05 | Inpatient (IN) | payer OTHER ==
[~2023-09-27] VITALS: Ht 185.4 cm; Wt 104.9 kg
[~2023-09-27 17:05] MED LIST changes: +CEFDINIR300 MG PO; +HYDROCODONE-AC1 EAC2 PO; +SPIRIVA RESPIMAT4 GM INH
[2023-09-27 17:22] VITALS: BP 120/65
[2023-09-27 17:32] LABS: BASO % 0.1 % (0.0-1.0); LYMPH # 0.9 10*3/uL (1.3-4.4); LYMPH % 7.6 % (27.0-41.0); MEAN CELL VOLUME 78.6 fl (80.0-94.0); MEAN CORPUSCULAR HGB 24.3 pg (27.0-31.0); MEAN CORPUSCULAR HGB CONC 30.9 g/dl (33.0-37.0); MEAN PLATELET VOLUME 10.9 fl (9.6-12.3); MONO # 0.4 10*3/uL (0.1-1.0); MONO % 3.5 % (3.0-9.0); NEUT # 10.2 10*3/uL (2.3-7.9); NEUT % 86.8 % (47.0-73.0); NUCLEATED RED BLOOD CELL 0.1 10*3/uL (0.0-0.0); NUCLEATED RED BLOOD CELL 0.4 % (0.0-0.0); PLATELET COUNT AUTOMATED 308 10*3/uL (130-400); RED BLOOD COUNT 4.07 10*6/uL (4.50-5.90); RED CELL DISTRI WIDTH 18.6 % (0-14.5); WHITE BLOOD COUNT 11.8 10*3/uL (4.8-10.8)
[2023-09-27 17:53] LABS: POTASSIUM 3.7 mmol/L (3.4-5.1); TOTAL PROTEIN 5.8 gm/dL (6.0-8.0)
[2023-09-27 18:30] VITALS: BP 120/68
[2023-09-27 19:56] VITALS: BP 126/65
[2023-09-27 23:28] VITALS: BP 109/61
[2023-09-28 00:20] VITALS: BP 126/74
[2023-09-28] MEDS ORDERED: MAGNESIUM OXID250 M2 PO (00:43)
[2023-09-28 06:06] LABS: BASO % 0.1 % (0.0-1.0); HEMATOCRIT 31.4 % (42.0-52.0); LYMPH # 0.7 10*3/uL (1.3-4.4); LYMPH % 8.7 % (27.0-41.0); MEAN CELL VOLUME 79.5 fl (80.0-94.0); MEAN CORPUSCULAR HGB 24.3 pg (27.0-31.0); MEAN CORPUSCULAR HGB CONC 30.6 g/dl (33.0-37.0); MEAN PLATELET VOLUME 11.5 fl (9.6-12.3); MONO # 0.2 10*3/uL (0.1-1.0); MONO % 2.2 % (3.0-9.0); NEUT # 7.3 10*3/uL (2.3-7.9); NEUT % 86.2 % (47.0-73.0); NUCLEATED RED BLOOD CELL 0.2 % (0.0-0.0); PLATELET COUNT AUTOMATED 271 10*3/uL (130-400); RED BLOOD COUNT 3.95 10*6/uL (4.50-5.90); RED CELL DISTRI WIDTH 18.4 % (0-14.5); WHITE BLOOD COUNT 8.5 10*3/uL (4.8-10.8)
[2023-09-28 06:20] LABS: POTASSIUM 3.8 mmol/L (3.4-5.1)
[2023-09-28 08:00] VITALS: BP 135/85
[2023-09-28 12:00] VITALS: BP 127/77
== END 2023-09-28 13:12 | disposition home health service (06) | DRG 291 ==
LOC: ED 17:05 → 4E 20:22 → EDHOLD 20:22 → 4E 23:44
PROVIDERS: Nurse Practitioner; Student in an Organized Health Care Education/Training Program; ADMIT Internal Medicine; ATTEND Internal Medicine
DX: I13.0 Hypertensive heart and chronic kidney disease with heart failure and stage 1 through stage 4 chronic kidney disease, or unspecified chronic kidney disease (principal); I50.43 Acute on chronic combined systolic (congestive) and diastolic (congestive) heart failure; N17.0 Acute kidney failure with tubular necrosis; E44.0 Moderate protein-calorie malnutrition; E83.42 Hypomagnesemia; Z96.641 Presence of right artificial hip joint; K44.9 Diaphragmatic hernia without obstruction or gangrene; M10.9 Gout, unspecified; K21.9 Gastro-esophageal reflux disease without esophagitis; I25.10 Atherosclerotic heart disease of native coronary artery without angina pectoris; E11.51 Type 2 diabetes mellitus with diabetic peripheral angiopathy without gangrene; G47.33 Obstructive sleep apnea (adult) (pediatric); E78.5 Hyperlipidemia, unspecified; F41.1 Generalized anxiety disorder; K57.90 Diverticulosis of intestine, part unspecified, without perforation or abscess without bleeding; E11.40 Type 2 diabetes mellitus with diabetic neuropathy, unspecified; F32.A Depression, unspecified; N18.30 Chronic kidney disease, stage 3 unspecified; M43.16 Spondylolisthesis, lumbar region; E11.22 Type 2 diabetes mellitus with diabetic chronic kidney disease; F43.20 Adjustment disorder, unspecified; N40.0 Benign prostatic hyperplasia without lower urinary tract symptoms; J44.9 Chronic obstructive pulmonary disease, unspecified; S80.12XA Contusion of left lower leg, initial encounter; S61.511A Laceration without foreign body of right wrist, initial encounter; S80.11XA Contusion of right lower leg, initial encounter; E87.8 Other disorders of electrolyte and fluid balance, not elsewhere classified; D50.9 Iron deficiency anemia, unspecified; E66.9 Obesity, unspecified; I48.91 Unspecified atrial fibrillation; Z88.1 Allergy status to other antibiotic agents; Z88.0 Allergy status to penicillin; Z79.899 Other long term (current) drug therapy; Z79.82 Long term (current) use of aspirin; Z79.01 Long term (current) use of anticoagulants; Z79.4 Long term (current) use of insulin; Z89.422 Acquired absence of other left toe(s); Z89.421 Acquired absence of other right toe(s); Z90.49 Acquired absence of other specified parts of digestive tract; Z95.5 Presence of coronary angioplasty implant and graft; Z87.891 Personal history of nicotine dependence; Z82.49 Family history of ischemic heart disease and other diseases of the circulatory system; Z82.3 Family history of stroke; Z83.3 Family history of diabetes mellitus; Z80.0 Family history of malignant neoplasm of digestive organs; I69.30 Unspecified sequelae of cerebral infarction; Z68.30 Body mass index [BMI] 30.0-30.9, adult; Y93.89 Activity, other specified; Y92.89 Other specified places as the place of occurrence of the external cause; Y99.8 Other external cause status

== ENCOUNTER 2023-10-03 13:19 | Emergency (ER) | payer OTHER ==
[~2023-10-03] VITALS: Ht 182.8 cm; Wt 106.6 kg
[2023-10-03 13:47] VITALS: BP 109/64
== END 2023-10-03 15:08 | disposition left against medical advice (07) ==
LOC: ED 13:19
DX: M79.602 Pain in left arm (principal); Z88.0 Allergy status to penicillin; Z88.1 Allergy status to other antibiotic agents; Z88.8 Allergy status to other drugs, medicaments and biological substances; Z53.21 Procedure and treatment not carried out due to patient leaving prior to being seen by health care provider

== ENCOUNTER → 2023-10-05 | Outpatient (CLI) | payer OTHER | END | disposition home or self-care (01) | LOC: WOUNDCARE 08:37 | PROVIDERS: ATTEND Nurse Practitioner Family | DX: S60.811A Abrasion of right wrist, initial encounter (principal); L98.9 Disorder of the skin and subcutaneous tissue, unspecified; E11.51 Type 2 diabetes mellitus with diabetic peripheral angiopathy without gangrene; E11.22 Type 2 diabetes mellitus with diabetic chronic kidney disease; I12.9 Hypertensive chronic kidney disease with stage 1 through stage 4 chronic kidney disease, or unspecified chronic kidney disease; N18.30 Chronic kidney disease, stage 3 unspecified; E11.40 Type 2 diabetes mellitus with diabetic neuropathy, unspecified; E78.5 Hyperlipidemia, unspecified; E03.9 Hypothyroidism, unspecified; R26.89 Other abnormalities of gait and mobility; J44.9 Chronic obstructive pulmonary disease, unspecified; Z87.891 Personal history of nicotine dependence; Z95.5 Presence of coronary angioplasty implant and graft; Z96.641 Presence of right artificial hip joint; Z90.49 Acquired absence of other specified parts of digestive tract; Z89.412 Acquired absence of left great toe; Z89.422 Acquired absence of other left toe(s); Z89.421 Acquired absence of other right toe(s); X58.XXXA Exposure to other specified factors, initial encounter; Y93.89 Activity, other specified; Y92.89 Other specified places as the place of occurrence of the external cause; Y99.8 Other external cause status ==

== ENCOUNTER → 2023-10-12 | Outpatient (CLI) | payer OTHER ==
[~2023-10-12] MED LIST changes: +TOBRAMYCIN5 ML OP
== END | disposition home or self-care (01) ==
LOC: WOUNDCARE 01:54
PROVIDERS: ATTEND Nurse Practitioner Family
DX: S60.811D Abrasion of right wrist, subsequent encounter (principal); L98.9 Disorder of the skin and subcutaneous tissue, unspecified; E11.51 Type 2 diabetes mellitus with diabetic peripheral angiopathy without gangrene; E11.22 Type 2 diabetes mellitus with diabetic chronic kidney disease; I12.9 Hypertensive chronic kidney disease with stage 1 through stage 4 chronic kidney disease, or unspecified chronic kidney disease; N18.30 Chronic kidney disease, stage 3 unspecified; E11.40 Type 2 diabetes mellitus with diabetic neuropathy, unspecified; E03.9 Hypothyroidism, unspecified; E78.5 Hyperlipidemia, unspecified; R26.89 Other abnormalities of gait and mobility; J44.9 Chronic obstructive pulmonary disease, unspecified; Z87.891 Personal history of nicotine dependence; Z95.5 Presence of coronary angioplasty implant and graft; Z96.641 Presence of right artificial hip joint; Z90.49 Acquired absence of other specified parts of digestive tract; Z89.412 Acquired absence of left great toe; Z89.422 Acquired absence of other left toe(s); Z89.421 Acquired absence of other right toe(s); X58.XXXD Exposure to other specified factors, subsequent encounter

== ENCOUNTER 2023-10-19 10:43 | Emergency (ER) | payer OTHER ==
[~2023-10-19 10:43] MED LIST changes: +DULCOLAX5 M1 PO
== END 2023-10-19 11:43 | disposition left against medical advice (07) ==
LOC: ED 10:43
DX: R07.89 Other chest pain (principal); Z53.21 Procedure and treatment not carried out due to patient leaving prior to being seen by health care provider

== ENCOUNTER 2023-11-14 13:24 | Emergency (ER) | payer OTHER ==
[~2023-11-14] VITALS: Ht 182.9 cm; Wt 102.5 kg
[2023-11-14 13:30] VITALS: BP 144/78
[2023-11-14 13:47] LABS: BASO % 0.2 % (0.0-1.0); EOS # 0.8 10*3/uL (0.0-0.4); EOS % 5.2 % (1.0-4.0); HEMATOCRIT 40.3 % (42.0-52.0); LYMPH # 2.1 10*3/uL (1.3-4.4); LYMPH % 13.9 % (27.0-41.0); MEAN CELL VOLUME 78.4 fl (80.0-94.0); MEAN CORPUSCULAR HGB 23.7 pg (27.0-31.0); MEAN CORPUSCULAR HGB CONC 30.3 g/dl (33.0-37.0); MEAN PLATELET VOLUME 11.7 fl (9.6-12.3); MONO # 0.8 10*3/uL (0.1-1.0); MONO % 4.9 % (3.0-9.0); NEUT # 11.6 10*3/uL (2.3-7.9); NEUT % 75.3 % (47.0-73.0); PLATELET COUNT AUTOMATED 252 10*3/uL (130-400); RED BLOOD COUNT 5.14 10*6/uL (4.50-5.90); RED CELL DISTRI WIDTH 18.6 % (0-14.5); WHITE BLOOD COUNT 15.4 10*3/uL (4.8-10.8)
[2023-11-14 14:12] LABS: POTASSIUM 3.9 mmol/L (3.4-5.1); TOTAL PROTEIN 6.3 gm/dL (6.0-8.0)
[2023-11-14] MEDS ORDERED: BENZONATATE100 M1 PO (15:40)
[2023-11-14] MEDS ORDERED: LEVOFLOXACIN500 MG PO (15:40)
== END 2023-11-14 15:49 | disposition home or self-care (01) ==
LOC: ED 13:24
PROVIDERS: Emergency Medicine
DX: J44.9 Chronic obstructive pulmonary disease, unspecified (principal); R53.1 Weakness; E11.22 Type 2 diabetes mellitus with diabetic chronic kidney disease; I13.0 Hypertensive heart and chronic kidney disease with heart failure and stage 1 through stage 4 chronic kidney disease, or unspecified chronic kidney disease; N18.9 Chronic kidney disease, unspecified; I25.10 Atherosclerotic heart disease of native coronary artery without angina pectoris; E78.5 Hyperlipidemia, unspecified; Z79.4 Long term (current) use of insulin; M10.9 Gout, unspecified; D64.9 Anemia, unspecified; I48.91 Unspecified atrial fibrillation; Z88.1 Allergy status to other antibiotic agents; Z88.0 Allergy status to penicillin; Z88.8 Allergy status to other drugs, medicaments and biological substances; Z98.890 Other specified postprocedural states; Z95.5 Presence of coronary angioplasty implant and graft; Z90.49 Acquired absence of other specified parts of digestive tract; F10.10 Alcohol abuse, uncomplicated; Z87.891 Personal history of nicotine dependence; F14.10 Cocaine abuse, uncomplicated; F11.10 Opioid abuse, uncomplicated; Z20.822 Contact with and (suspected) exposure to COVID-19

== ENCOUNTER 2023-12-14 11:59 | Emergency (ER) | payer OTHER ==
[~2023-12-14] VITALS: Ht 182.8 cm; Wt 104.3 kg
[2023-12-14 12:24] VITALS: BP 86/54
[2023-12-14 13:29] LABS: BASO % 0.4 % (0.0-1.0); EOS # 0.4 10*3/uL (0.0-0.4); EOS % 4.9 % (1.0-4.0); HEMATOCRIT 33.9 % (42.0-52.0); LYMPH # 1.8 10*3/uL (1.3-4.4); MEAN CELL VOLUME 80.1 fl (80.0-94.0); MEAN CORPUSCULAR HGB 22.9 pg (27.0-31.0); MEAN CORPUSCULAR HGB CONC 28.6 g/dl (33.0-37.0); MEAN PLATELET VOLUME 10.4 fl (9.6-12.3); MONO # 0.7 10*3/uL (0.1-1.0); MONO % 8.5 % (3.0-9.0); NEUT # 5.3 10*3/uL (2.3-7.9); PLATELET COUNT AUTOMATED 251 10*3/uL (130-400); RED BLOOD COUNT 4.23 10*6/uL (4.50-5.90); RED CELL DISTRI WIDTH 18.9 % (0-14.5); WHITE BLOOD COUNT 8.3 10*3/uL (4.8-10.8)
[2023-12-14 13:40] LABS: ACT PARTIAL THROMBO TIME 36.2 SECONDS (20.0-32.1)
[2023-12-14 13:55] LABS: POTASSIUM 3.7 mmol/L (3.4-5.1)
[2023-12-14] MEDS ORDERED: HYDROCODONE-AC1 EAC1 PO (16:42)
[2023-12-14] MEDS ORDERED: LEVOFLOXACIN750 M2 PO (16:42)
== END 2023-12-14 17:14 | disposition home or self-care (01) ==
LOC: ED 11:59
PROVIDERS: Emergency Medicine
DX: H60.92 Unspecified otitis externa, left ear (principal); F10.10 Alcohol abuse, uncomplicated; I25.10 Atherosclerotic heart disease of native coronary artery without angina pectoris; J44.9 Chronic obstructive pulmonary disease, unspecified; E11.9 Type 2 diabetes mellitus without complications; I10 Essential (primary) hypertension; I25.2 Old myocardial infarction; I48.91 Unspecified atrial fibrillation; D64.9 Anemia, unspecified; Z79.4 Long term (current) use of insulin; Z88.0 Allergy status to penicillin; Z88.1 Allergy status to other antibiotic agents; Z88.8 Allergy status to other drugs, medicaments and biological substances; Z90.49 Acquired absence of other specified parts of digestive tract; Z98.890 Other specified postprocedural states; Z87.891 Personal history of nicotine dependence; Z95.5 Presence of coronary angioplasty implant and graft

== ENCOUNTER → 2023-12-14 | Outpatient (CLI) | payer OTHER | END | disposition home or self-care (01) | LOC: WOUNDCARE 02:54 | PROVIDERS: ATTEND Nurse Practitioner Family | DX: S80.811D Abrasion, right lower leg, subsequent encounter (principal); E11.622 Type 2 diabetes mellitus with other skin ulcer; L97.812 Non-pressure chronic ulcer of other part of right lower leg with fat layer exposed; E11.51 Type 2 diabetes mellitus with diabetic peripheral angiopathy without gangrene; R26.89 Other abnormalities of gait and mobility; E03.9 Hypothyroidism, unspecified; E11.40 Type 2 diabetes mellitus with diabetic neuropathy, unspecified; J44.9 Chronic obstructive pulmonary disease, unspecified; I48.92 Unspecified atrial flutter; E11.22 Type 2 diabetes mellitus with diabetic chronic kidney disease; I12.9 Hypertensive chronic kidney disease with stage 1 through stage 4 chronic kidney disease, or unspecified chronic kidney disease; N18.30 Chronic kidney disease, stage 3 unspecified; Z95.818 Presence of other cardiac implants and grafts; Z96.641 Presence of right artificial hip joint; Z90.49 Acquired absence of other specified parts of digestive tract; Z89.412 Acquired absence of left great toe; Z89.431 Acquired absence of right foot; Z89.422 Acquired absence of other left toe(s); Z87.891 Personal history of nicotine dependence; X58.XXXD Exposure to other specified factors, subsequent encounter ==

== ENCOUNTER 2023-12-17 12:41 | Emergency (ER) | payer OTHER ==
[~2023-12-17] VITALS: Ht 182.8 cm; Wt 104.3 kg
[2023-12-17 12:51] VITALS: BP 109/47
[2023-12-17] MEDS ORDERED: Acetaminophen/Hydrocodone HP 10/325 PO ONE (13:05)
[2023-12-17] MEDS ORDERED: Albuterol Sulf/Ipratropium 3 ML VIAL NEB ONE (13:45)
== END 2023-12-17 14:47 | disposition home or self-care (01) ==
LOC: ED 12:41
DX: M25.551 Pain in right hip (principal); Z88.8 Allergy status to other drugs, medicaments and biological substances; Z88.0 Allergy status to penicillin; Z88.1 Allergy status to other antibiotic agents; I48.91 Unspecified atrial fibrillation; I25.10 Atherosclerotic heart disease of native coronary artery without angina pectoris; J44.9 Chronic obstructive pulmonary disease, unspecified; E11.22 Type 2 diabetes mellitus with diabetic chronic kidney disease; I12.9 Hypertensive chronic kidney disease with stage 1 through stage 4 chronic kidney disease, or unspecified chronic kidney disease; N18.30 Chronic kidney disease, stage 3 unspecified; E11.40 Type 2 diabetes mellitus with diabetic neuropathy, unspecified; K21.9 Gastro-esophageal reflux disease without esophagitis; M10.9 Gout, unspecified; E78.5 Hyperlipidemia, unspecified; E11.65 Type 2 diabetes mellitus with hyperglycemia; D64.9 Anemia, unspecified; Z95.5 Presence of coronary angioplasty implant and graft; Z90.49 Acquired absence of other specified parts of digestive tract; Z98.890 Other specified postprocedural states; F10.10 Alcohol abuse, uncomplicated; Z87.891 Personal history of nicotine dependence; Z86.73 Personal history of transient ischemic attack (TIA), and cerebral infarction without residual deficits; I25.2 Old myocardial infarction

== ENCOUNTER 2023-12-20 10:15 | Emergency (ER) | payer OTHER ==
[~2023-12-20] VITALS: Ht 187.9 cm; Wt 105.7 kg
[2023-12-20 10:50] LABS: BASO # 0.1 10*3/uL (0.0-0.1); BASO % 0.5 % (0.0-1.0); EOS # 0.4 10*3/uL (0.0-0.4); EOS % 4.2 % (1.0-4.0); HEMATOCRIT 35.5 % (42.0-52.0); LYMPH # 1.7 10*3/uL (1.3-4.4); LYMPH % 16.3 % (27.0-41.0); MEAN CELL VOLUME 79.2 fl (80.0-94.0); MEAN PLATELET VOLUME 10.6 fl (9.6-12.3); MONO # 0.7 10*3/uL (0.1-1.0); MONO % 6.3 % (3.0-9.0); NEUT # 7.6 10*3/uL (2.3-7.9); NEUT % 72.1 % (47.0-73.0); PLATELET COUNT AUTOMATED 230 10*3/uL (130-400); RED BLOOD COUNT 4.48 10*6/uL (4.50-5.90); RED CELL DISTRI WIDTH 18.5 % (0-14.5); WHITE BLOOD COUNT 10.5 10*3/uL (4.8-10.8)
[2023-12-20 11:12] LABS: ACT PARTIAL THROMBO TIME 35.7 SECONDS (20.0-32.1); POTASSIUM 4.1 mmol/L (3.4-5.1); TOTAL PROTEIN 6.7 gm/dL (6.0-8.0)
[2023-12-20] MEDS ORDERED: Albuterol Sulf/Ipratropium 3 ML VIAL NEB ONE (12:50)
[2023-12-20] MEDS ORDERED: OMNICEF300 MG PO (13:16)
== END 2023-12-20 13:19 | disposition home or self-care (01) ==
LOC: ED 10:15
PROVIDERS: Internal Medicine
DX: H66.90 Otitis media, unspecified, unspecified ear (principal); E11.65 Type 2 diabetes mellitus with hyperglycemia; R06.02 Shortness of breath; R05.9 Cough, unspecified; J44.9 Chronic obstructive pulmonary disease, unspecified; Z88.1 Allergy status to other antibiotic agents; Z88.0 Allergy status to penicillin; Z79.2 Long term (current) use of antibiotics; Z79.899 Other long term (current) drug therapy; Z79.82 Long term (current) use of aspirin; Z79.4 Long term (current) use of insulin; Z95.5 Presence of coronary angioplasty implant and graft; Z98.890 Other specified postprocedural states; Z96.641 Presence of right artificial hip joint; Z90.49 Acquired absence of other specified parts of digestive tract; Z89.431 Acquired absence of right foot; Z89.422 Acquired absence of other left toe(s); Z87.891 Personal history of nicotine dependence

== ENCOUNTER 2023-12-23 11:22 | Emergency (ER) | payer OTHER ==
[~2023-12-23] VITALS: Wt 101.6 kg
[2023-12-23 11:39] VITALS: BP 114/63
== END 2023-12-23 12:35 | disposition home or self-care (01) ==
LOC: ED 11:22
DX: H60.92 Unspecified otitis externa, left ear (principal); I25.10 Atherosclerotic heart disease of native coronary artery without angina pectoris; J44.9 Chronic obstructive pulmonary disease, unspecified; E11.9 Type 2 diabetes mellitus without complications; Z79.4 Long term (current) use of insulin; Z86.73 Personal history of transient ischemic attack (TIA), and cerebral infarction without residual deficits; I10 Essential (primary) hypertension; M10.9 Gout, unspecified; I25.2 Old myocardial infarction; I48.91 Unspecified atrial fibrillation; D64.9 Anemia, unspecified; F10.10 Alcohol abuse, uncomplicated; Z88.8 Allergy status to other drugs, medicaments and biological substances; Z88.0 Allergy status to penicillin; Z88.1 Allergy status to other antibiotic agents; Z98.890 Other specified postprocedural states; Z95.5 Presence of coronary angioplasty implant and graft; Z90.49 Acquired absence of other specified parts of digestive tract; Z87.891 Personal history of nicotine dependence

== ENCOUNTER → 2023-12-23 | Outpatient (CLI) | payer OTHER | LOC: WOUNDCARE 10:50 | PROVIDERS: ATTEND Nurse Practitioner Family | DX: S80.811D Abrasion, right lower leg, subsequent encounter (principal); E11.51 Type 2 diabetes mellitus with diabetic peripheral angiopathy without gangrene; R26.89 Other abnormalities of gait and mobility; E03.9 Hypothyroidism, unspecified; E11.40 Type 2 diabetes mellitus with diabetic neuropathy, unspecified; E78.5 Hyperlipidemia, unspecified; E11.22 Type 2 diabetes mellitus with diabetic chronic kidney disease; I12.9 Hypertensive chronic kidney disease with stage 1 through stage 4 chronic kidney disease, or unspecified chronic kidney disease; N18.30 Chronic kidney disease, stage 3 unspecified; I48.92 Unspecified atrial flutter; J44.9 Chronic obstructive pulmonary disease, unspecified; Z95.818 Presence of other cardiac implants and grafts; Z96.641 Presence of right artificial hip joint; Z90.49 Acquired absence of other specified parts of digestive tract; Z89.412 Acquired absence of left great toe; Z89.422 Acquired absence of other left toe(s); Z89.431 Acquired absence of right foot; Z87.891 Personal history of nicotine dependence; X58.XXXD Exposure to other specified factors, subsequent encounter ==

== ENCOUNTER 2023-12-27 13:52 | Emergency (ER) | payer OTHER ==
[~2023-12-27] VITALS: Ht 182.8 cm; Wt 99.8 kg
[2023-12-27 14:00] VITALS: BP 100/56
[2023-12-27] MEDS ORDERED: MORPHINE Sulfate 2 MG/ML SYR IV ONE (14:15)
[2023-12-27] MEDS ORDERED: Ondansetron Hydrochloride 4 MG/2 ML VIAL IV ONE (14:15)
[2023-12-27 14:24] LABS: BASO % 0.3 % (0.0-1.0); EOS # 0.3 10*3/uL (0.0-0.4); EOS % 3.1 % (1.0-4.0); HEMATOCRIT 32.2 % (42.0-52.0); LYMPH # 1.7 10*3/uL (1.3-4.4); LYMPH % 17.4 % (27.0-41.0); MEAN CELL VOLUME 79.1 fl (80.0-94.0); MEAN CORPUSCULAR HGB 22.4 pg (27.0-31.0); MEAN CORPUSCULAR HGB CONC 28.3 g/dl (33.0-37.0); MONO # 0.6 10*3/uL (0.1-1.0); MONO % 6.6 % (3.0-9.0); NEUT % 72.2 % (47.0-73.0); PLATELET COUNT AUTOMATED 187 10*3/uL (130-400); RED BLOOD COUNT 4.07 10*6/uL (4.50-5.90); RED CELL DISTRI WIDTH 18.3 % (0-14.5); WHITE BLOOD COUNT 9.7 10*3/uL (4.8-10.8)
[2023-12-27 14:36] LABS: ACT PARTIAL THROMBO TIME 29.9 SECONDS (20.0-32.1)
[2023-12-27 14:45] LABS: POTASSIUM 3.9 mmol/L (3.4-5.1); TOTAL PROTEIN 6.2 gm/dL (6.0-8.0)
[2023-12-27] MEDS ORDERED: Albuterol Sulf/Ipratropium 3 ML VIAL NEB ONE (14:50)
[2023-12-27] MEDS ORDERED: TRAMADOL HCL50 MG PO (15:35)
[2023-12-27] MEDS ORDERED: CETRAXAL1 EACH OT (15:35)
== END 2023-12-27 15:44 | disposition home or self-care (01) ==
LOC: ED 13:52
PROVIDERS: Emergency Medicine
DX: R07.89 Other chest pain (principal); M79.671 Pain in right foot; H60.92 Unspecified otitis externa, left ear; I50.9 Heart failure, unspecified; J44.9 Chronic obstructive pulmonary disease, unspecified; I48.91 Unspecified atrial fibrillation; E78.5 Hyperlipidemia, unspecified; E11.22 Type 2 diabetes mellitus with diabetic chronic kidney disease; I13.0 Hypertensive heart and chronic kidney disease with heart failure and stage 1 through stage 4 chronic kidney disease, or unspecified chronic kidney disease; N18.9 Chronic kidney disease, unspecified; Z79.4 Long term (current) use of insulin; Z86.73 Personal history of transient ischemic attack (TIA), and cerebral infarction without residual deficits; M10.9 Gout, unspecified; I25.2 Old myocardial infarction; D64.9 Anemia, unspecified; Z88.8 Allergy status to other drugs, medicaments and biological substances; Z88.0 Allergy status to penicillin; Z88.1 Allergy status to other antibiotic agents; Z90.49 Acquired absence of other specified parts of digestive tract; Z95.5 Presence of coronary angioplasty implant and graft; Z98.890 Other specified postprocedural states; F10.10 Alcohol abuse, uncomplicated

== ENCOUNTER 2024-01-03 15:50 | Inpatient (IN) | payer OTHER ==
[~2024-01-03] VITALS: Ht 182.8 cm; Wt 100.9 kg
[~2024-01-03 15:50] MED LIST changes: +CETRAXAL1 EACH OT
[2024-01-03 16:03] VITALS: BP 129/80
[2024-01-03 16:30] LABS: BASO % 0.2 % (0.0-1.0); EOS # 0.2 10*3/uL (0.0-0.4); EOS % 2.6 % (1.0-4.0); HEMATOCRIT 32.2 % (42.0-52.0); LYMPH # 0.6 10*3/uL (1.3-4.4); LYMPH % 6.6 % (27.0-41.0); MEAN CELL VOLUME 77.4 fl (80.0-94.0); MEAN CORPUSCULAR HGB 21.9 pg (27.0-31.0); MEAN CORPUSCULAR HGB CONC 28.3 g/dl (33.0-37.0); MEAN PLATELET VOLUME 10.4 fl (9.6-12.3); MONO # 0.5 10*3/uL (0.1-1.0); MONO % 5.4 % (3.0-9.0); NEUT # 7.6 10*3/uL (2.3-7.9); NEUT % 84.9 % (47.0-73.0); PLATELET COUNT AUTOMATED 178 10*3/uL (130-400); RED BLOOD COUNT 4.16 10*6/uL (4.50-5.90); RED CELL DISTRI WIDTH 18.2 % (0-14.5)
[2024-01-03 16:41] LABS: ACT PARTIAL THROMBO TIME 33.6 SECONDS (20.0-32.1)
[2024-01-03 16:52] LABS: ALKALINE PHOSPHATASE 103 U/L (46-116); BUN 36 mg/dl (9-23); CHLORIDE 109 mmol/L (98-107); POTASSIUM 3.9 mmol/L (3.4-5.1); SGPT/ALT 19 U/L (5-49); TOTAL PROTEIN 5.9 gm/dL (6.0-8.0)
[2024-01-03] MEDS ORDERED: Glucagon Hydrochloride 1 MG SYR IM ONE ×2 (18:40→19:45)
[2024-01-03] MEDS ORDERED: Glucagon Hydrochloride 1 MG SYR ONE (18:47)
[2024-01-03 19:15] VITALS: BP 115/62
[2024-01-03] MEDS ORDERED: Ondansetron Hydrochloride 4 MG TAB SL ONE (19:20)
[2024-01-03] MEDS ORDERED: DEXTROSE 50% 25 GM/50 ML SYR IV ONE (20:08)
[2024-01-03 22:23] VITALS: BP 122/78
[2024-01-03] MEDS ORDERED: MORPHINE Sulfate 2 MG/ML SYR IV PRN (22:45)
[2024-01-03] MEDS ORDERED: Magnesium Hydroxide 30 ML UDC PO PRN (22:45)
[2024-01-03] MEDS ORDERED: Acetaminophen/Hydrocodone 5 MG/325 MG TABLET PO PRN (22:45)
[2024-01-03] MEDS ORDERED: BISACODYL 10 MG SUPP R PRN (22:45)
[2024-01-03] MEDS ORDERED: Ondansetron Hydrochloride 4 MG/2 ML VIAL IV PRN (22:45)
[2024-01-03] MEDS ORDERED: TEMAZEPAM 15 MG CAP PO PRN (22:45)
[2024-01-03] MEDS ORDERED: ACETAMINOPHEN 325 MG TAB PO PRN (22:45)
[2024-01-03] MEDS ORDERED: BISACODYL 5 MG TAB PO PRN (22:45)
[2024-01-03] MEDS ORDERED: Pantoprazole Sodium 40 MG TAB PO PRN (22:50)
[2024-01-03] MEDS ORDERED: DEXTROSE 10 % IN WATER 250 ML IV PRN (22:55)
[2024-01-03] MEDS ORDERED: Albuterol Sulf/Ipratropium 3 ML VIAL NEB PRN (23:15)
[2024-01-03] MEDS ORDERED: SODIUM CHLORIDE 0.9% 1,000 ML IV ONE (23:15)
[2024-01-04] VITALS (7 sets, daily range): BP systolic 91–127; BP diastolic 41–70
[2024-01-04] MEDS ORDERED: Albuterol Sulf/Ipratropium 3 ML VIAL NEB SCH (05:20)
[2024-01-04 06:43] LABS: BASO % 0.1 % (0.0-1.0); EOS # 0.2 10*3/uL (0.0-0.4); EOS % 2.6 % (1.0-4.0); HEMATOCRIT 32.1 % (42.0-52.0); LYMPH # 0.6 10*3/uL (1.3-4.4); LYMPH % 8.8 % (27.0-41.0); MEAN CELL VOLUME 78.5 fl (80.0-94.0); MEAN CORPUSCULAR HGB 21.8 pg (27.0-31.0); MEAN CORPUSCULAR HGB CONC 27.7 g/dl (33.0-37.0); MEAN PLATELET VOLUME 10.3 fl (9.6-12.3); MONO # 0.4 10*3/uL (0.1-1.0); MONO % 6.3 % (3.0-9.0); NEUT # 5.7 10*3/uL (2.3-7.9); NEUT % 81.8 % (47.0-73.0); PLATELET COUNT AUTOMATED 143 10*3/uL (130-400); RED BLOOD COUNT 4.09 10*6/uL (4.50-5.90); RED CELL DISTRI WIDTH 18.3 % (0-14.5); WHITE BLOOD COUNT 6.9 10*3/uL (4.8-10.8)
[2024-01-04 07:10] LABS: BUN 36 mg/dl (9-23); CHLORIDE 111 mmol/L (98-107); LIPASE 43 U/L (12-53); POTASSIUM 4.3 mmol/L (3.4-5.1)
[2024-01-04] MEDS ORDERED: INSULIN LISPRO 1 UNIT/0.01 ML SQ SCH (07:30)
[2024-01-04] MEDS ORDERED: RIVAROXABAN 15 MG TAB PO SCH (10:00)
[2024-01-04] MEDS ORDERED: methylPREDNISolone sod succ 40 MG VIAL IV SCH ×2 (14:55→22:00)
[2024-01-04] MEDS ORDERED: LEVOFLOXACIN 150 ML IV SCH (15:00)
[2024-01-05] VITALS: BP 115/69
[2024-01-05 06:34] LABS: HEMATOCRIT 30.1 % (42.0-52.0); MEAN CELL VOLUME 78.4 fl (80.0-94.0); MEAN CORPUSCULAR HGB 21.9 pg (27.0-31.0); MEAN CORPUSCULAR HGB CONC 27.9 g/dl (33.0-37.0); MEAN PLATELET VOLUME 10.7 fl (9.6-12.3); PLATELET COUNT AUTOMATED 130 10*3/uL (130-400); RED BLOOD COUNT 3.84 10*6/uL (4.50-5.90); RED CELL DISTRI WIDTH 18.5 % (0-14.5); WHITE BLOOD COUNT 3.9 10*3/uL (4.8-10.8)
[2024-01-05 06:48] LABS: MANUAL DIFF REFLEX YES
[2024-01-05 06:53] LABS: POTASSIUM 4.8 mmol/L (3.4-5.1); TOTAL PROTEIN 5.9 gm/dL (6.0-8.0)
[2024-01-05 07:19] LABS: BURR CELLS MODERATE; PLATELET SUFFICIENCY NORMAL (NORMAL); TOTAL CELLS COUNTED 100 #CELLS
[2024-01-05 07:20] LABS: MICROCYTOSIS SLIGHT; OVALOCYTES FEW; SCHISTOCYTES FEW
[2024-01-05 08:00] VITALS: BP 126/78
[2024-01-05] MEDS ORDERED: NITROGLYCERIN 0.4 MG BOT SL PRN (08:35)
[2024-01-05] MEDS ORDERED: ASPIRIN ENTERIC COATED 81 MG TAB PO SCH (10:00)
[2024-01-05] MEDS ORDERED: Levothyroxine Sodium 150 MCG TAB PO SCH (10:00)
[2024-01-05] MEDS ORDERED: AQUAPHOR OINTMENT Base 50 GM TUBE T SCH (10:00)
[2024-01-05] MEDS ORDERED: GABAPENTIN 600 MG TAB PO SCH (10:00)
[2024-01-05] MEDS ORDERED: OMEPRAZOLE 20 MG CAP PO SCH (10:00)
[2024-01-05] MEDS ORDERED: ISOSORBIDE MONONITRATE 30 MG TAB PO SCH (10:00)
[2024-01-05] MEDS ORDERED: FUROSEMIDE 40 MG TAB PO SCH (10:00)
[2024-01-05 12:00] VITALS: BP 121/83
[2024-01-05] MEDS ORDERED: LEVOFLOXACIN750 M2 PO (12:11)
== END 2024-01-05 13:32 | disposition home or self-care (01) | DRG 638 ==
LOC: ED 15:50 → EDHOLD 21:20 → 4E 01-04 13:29
PROVIDERS: Nurse Practitioner Family; Student in an Organized Health Care Education/Training Program; ADMIT Internal Medicine; ATTEND Internal Medicine
DX: E11.649 Type 2 diabetes mellitus with hypoglycemia without coma (principal); E44.1 Mild protein-calorie malnutrition; J98.11 Atelectasis; R07.9 Chest pain, unspecified; D50.9 Iron deficiency anemia, unspecified; N40.0 Benign prostatic hyperplasia without lower urinary tract symptoms; I25.10 Atherosclerotic heart disease of native coronary artery without angina pectoris; F41.1 Generalized anxiety disorder; F32.A Depression, unspecified; E11.42 Type 2 diabetes mellitus with diabetic polyneuropathy; K21.9 Gastro-esophageal reflux disease without esophagitis; G47.33 Obstructive sleep apnea (adult) (pediatric); N18.30 Chronic kidney disease, stage 3 unspecified; E11.22 Type 2 diabetes mellitus with diabetic chronic kidney disease; Z96.641 Presence of right artificial hip joint; I12.9 Hypertensive chronic kidney disease with stage 1 through stage 4 chronic kidney disease, or unspecified chronic kidney disease; H57.02 Anisocoria; E66.9 Obesity, unspecified; J44.9 Chronic obstructive pulmonary disease, unspecified; I48.91 Unspecified atrial fibrillation; Z79.01 Long term (current) use of anticoagulants; Z90.49 Acquired absence of other specified parts of digestive tract; Z79.4 Long term (current) use of insulin; Z95.5 Presence of coronary angioplasty implant and graft; Z68.31 Body mass index [BMI] 31.0-31.9, adult; Z89.431 Acquired absence of right foot; Z82.49 Family history of ischemic heart disease and other diseases of the circulatory system; Z83.3 Family history of diabetes mellitus; Z80.0 Family history of malignant neoplasm of digestive organs; Z88.0 Allergy status to penicillin; Z88.1 Allergy status to other antibiotic agents; Z88.8 Allergy status to other drugs, medicaments and biological substances; Z79.82 Long term (current) use of aspirin; Z79.899 Other long term (current) drug therapy

== ENCOUNTER 2024-01-12 11:30 | Emergency (ER) | payer OTHER ==
[~2024-01-12] VITALS: Ht 182.8 cm; Wt 102.1 kg
[2024-01-12 11:38] VITALS: BP 104/87
[2024-01-12] MEDS ORDERED: NEO/POLYMYX B SULF/DEXAMETH 200 DRP BOT OT ONE (14:15)
== END 2024-01-12 14:41 | disposition home or self-care (01) ==
LOC: ED 11:30
DX: S60.221A Contusion of right hand, initial encounter (principal); H60.91 Unspecified otitis externa, right ear; I25.10 Atherosclerotic heart disease of native coronary artery without angina pectoris; J44.9 Chronic obstructive pulmonary disease, unspecified; E11.9 Type 2 diabetes mellitus without complications; Z79.4 Long term (current) use of insulin; Z86.73 Personal history of transient ischemic attack (TIA), and cerebral infarction without residual deficits; I10 Essential (primary) hypertension; M10.9 Gout, unspecified; I25.2 Old myocardial infarction; I48.91 Unspecified atrial fibrillation; D64.9 Anemia, unspecified; F10.10 Alcohol abuse, uncomplicated; F14.10 Cocaine abuse, uncomplicated; Z88.0 Allergy status to penicillin; Z88.1 Allergy status to other antibiotic agents; Z88.8 Allergy status to other drugs, medicaments and biological substances; Z98.890 Other specified postprocedural states; Z90.49 Acquired absence of other specified parts of digestive tract; Z95.5 Presence of coronary angioplasty implant and graft; Z87.891 Personal history of nicotine dependence; W22.8XXA Striking against or struck by other objects, initial encounter; Y93.89 Activity, other specified; Y92.89 Other specified places as the place of occurrence of the external cause; Y99.8 Other external cause status

== ENCOUNTER → 2024-01-14 | Outpatient (CLI) | payer OTHER | END | disposition home or self-care (01) | LOC: WOUNDCARE 01:34 | PROVIDERS: ATTEND Nurse Practitioner Family | DX: S81.002D Unspecified open wound, left knee, subsequent encounter (principal); S51.801D Unspecified open wound of right forearm, subsequent encounter; S81.801D Unspecified open wound, right lower leg, subsequent encounter; E11.622 Type 2 diabetes mellitus with other skin ulcer; L98.491 Non-pressure chronic ulcer of skin of other sites limited to breakdown of skin; I13.10 Hypertensive heart and chronic kidney disease without heart failure, with stage 1 through stage 4 chronic kidney disease, or unspecified chronic kidney disease; E11.22 Type 2 diabetes mellitus with diabetic chronic kidney disease; N18.30 Chronic kidney disease, stage 3 unspecified; E11.51 Type 2 diabetes mellitus with diabetic peripheral angiopathy without gangrene; E11.40 Type 2 diabetes mellitus with diabetic neuropathy, unspecified; E78.5 Hyperlipidemia, unspecified; E03.9 Hypothyroidism, unspecified; J44.1 Chronic obstructive pulmonary disease with (acute) exacerbation; R26.89 Other abnormalities of gait and mobility; F19.11 Other psychoactive substance abuse, in remission; Z96.641 Presence of right artificial hip joint; Z90.49 Acquired absence of other specified parts of digestive tract; Z89.412 Acquired absence of left great toe; Z89.422 Acquired absence of other left toe(s); Z89.421 Acquired absence of other right toe(s); Z98.62 Peripheral vascular angioplasty status; Z87.891 Personal history of nicotine dependence; Z79.4 Long term (current) use of insulin; Z79.82 Long term (current) use of aspirin; Z79.899 Other long term (current) drug therapy; X58.XXXD Exposure to other specified factors, subsequent encounter ==

== ENCOUNTER 2024-01-15 11:33 | Emergency (ER) | payer OTHER ==
[2024-01-15 11:36] VITALS: BP 96/58
[2024-01-15] MEDS ORDERED: MAGNESIUM SULFATE 50 ML IV ONE (12:15)
[2024-01-15] MEDS ORDERED: Albuterol Sulfate 2.5 MG/3 ML VIAL NEB ONE (12:15)
[2024-01-15] MEDS ORDERED: methylPREDNISolone sod succ 125 MG VIAL IV ONE (12:15)
[2024-01-15 12:27] LABS: BILIRUBIN Negative (Negative); BLOOD Negative (Negative); CLARITY Clear (Clear); COLOR Yellow (Yellow); GLUCOSE 3+ (Negative); KETONE Negative (Negative); LEUKO ESTERASE Negative (Negative); NITRITE Negative (Negative); PH 6.5 (4.5-8.0); UROBILINOGEN 0.2 E.U./dl (0.0-1.0)
[2024-01-15 12:35] LABS: BASO % 0.3 % (0.0-1.0); EOS # 0.4 10*3/uL (0.0-0.4); EOS % 3.6 % (1.0-4.0); HEMATOCRIT 33.2 % (42.0-52.0); LYMPH # 1.3 10*3/uL (1.3-4.4); LYMPH % 12.7 % (27.0-41.0); MEAN CORPUSCULAR HGB 21.1 pg (27.0-31.0); MEAN CORPUSCULAR HGB CONC 27.7 g/dl (33.0-37.0); MEAN PLATELET VOLUME 10.4 fl (9.6-12.3); MONO # 0.7 10*3/uL (0.1-1.0); MONO % 7.3 % (3.0-9.0); NEUT # 7.5 10*3/uL (2.3-7.9); NEUT % 75.6 % (47.0-73.0); NUCLEATED RED BLOOD CELL 0.2 % (0.0-0.0); PLATELET COUNT AUTOMATED 213 10*3/uL (130-400); RED BLOOD COUNT 4.37 10*6/uL (4.50-5.90); RED CELL DISTRI WIDTH 18.6 % (0-14.5)
[2024-01-15 12:49] LABS: RBC 0-2 rbc/hpf (0-2); WBC 0-2 wbc/hpf (0-5)
[2024-01-15 12:53] LABS: TOTAL PROTEIN 5.9 gm/dL (6.0-8.0)
[2024-01-15] MEDS ORDERED: PREDNISONE20 M1 PO (15:41)
[2024-01-15] MEDS ORDERED: AVPAK AZITHROM250 M1 PO (15:41)
== END 2024-01-15 16:47 | disposition home or self-care (01) ==
LOC: ED 11:33
PROVIDERS: Emergency Medicine
DX: J44.1 Chronic obstructive pulmonary disease with (acute) exacerbation (principal); Z20.822 Contact with and (suspected) exposure to COVID-19; E11.22 Type 2 diabetes mellitus with diabetic chronic kidney disease; I13.0 Hypertensive heart and chronic kidney disease with heart failure and stage 1 through stage 4 chronic kidney disease, or unspecified chronic kidney disease; I50.9 Heart failure, unspecified; N18.9 Chronic kidney disease, unspecified; E78.5 Hyperlipidemia, unspecified; I48.91 Unspecified atrial fibrillation; I25.10 Atherosclerotic heart disease of native coronary artery without angina pectoris; Z86.73 Personal history of transient ischemic attack (TIA), and cerebral infarction without residual deficits; M10.9 Gout, unspecified; I25.2 Old myocardial infarction; D64.9 Anemia, unspecified; Z88.0 Allergy status to penicillin; Z88.1 Allergy status to other antibiotic agents; Z88.8 Allergy status to other drugs, medicaments and biological substances; Z98.890 Other specified postprocedural states; Z90.49 Acquired absence of other specified parts of digestive tract; Z95.5 Presence of coronary angioplasty implant and graft; F10.10 Alcohol abuse, uncomplicated; Z87.891 Personal history of nicotine dependence; F14.10 Cocaine abuse, uncomplicated; F11.10 Opioid abuse, uncomplicated

== ENCOUNTER → 2024-01-19 | Outpatient (CLI) | payer OTHER | END | disposition home or self-care (01) | LOC: WOUNDCARE 01:51 | PROVIDERS: ATTEND Nurse Practitioner Family | DX: S81.002D Unspecified open wound, left knee, subsequent encounter (principal); S81.801D Unspecified open wound, right lower leg, subsequent encounter; S51.801D Unspecified open wound of right forearm, subsequent encounter; R26.89 Other abnormalities of gait and mobility; I12.9 Hypertensive chronic kidney disease with stage 1 through stage 4 chronic kidney disease, or unspecified chronic kidney disease; E11.22 Type 2 diabetes mellitus with diabetic chronic kidney disease; N18.30 Chronic kidney disease, stage 3 unspecified; E03.9 Hypothyroidism, unspecified; E11.40 Type 2 diabetes mellitus with diabetic neuropathy, unspecified; E11.51 Type 2 diabetes mellitus with diabetic peripheral angiopathy without gangrene; E78.5 Hyperlipidemia, unspecified; J44.1 Chronic obstructive pulmonary disease with (acute) exacerbation; Z90.49 Acquired absence of other specified parts of digestive tract; Z96.641 Presence of right artificial hip joint; Z89.412 Acquired absence of left great toe; Z89.422 Acquired absence of other left toe(s); Z89.421 Acquired absence of other right toe(s); Z98.62 Peripheral vascular angioplasty status; Z87.891 Personal history of nicotine dependence; Z79.4 Long term (current) use of insulin; Z79.82 Long term (current) use of aspirin; Z79.899 Other long term (current) drug therapy; X58.XXXD Exposure to other specified factors, subsequent encounter ==

== ENCOUNTER 2024-01-21 13:09 | Emergency (ER) | payer OTHER ==
[~2024-01-21] VITALS: Ht 182.8 cm; Wt 102.1 kg
[2024-01-21 13:43] VITALS: BP 89/46
[2024-01-21] MEDS ORDERED: SODIUM CHLORIDE 0.9% 1,000 ML IV ONE (13:50)
[2024-01-21 14:03] LABS: BASO % 0.2 % (0.0-1.0); EOS # 0.3 10*3/uL (0.0-0.4); EOS % 2.9 % (1.0-4.0); HEMATOCRIT 30.9 % (42.0-52.0); LYMPH # 1.5 10*3/uL (1.3-4.4); LYMPH % 15.4 % (27.0-41.0); MEAN CELL VOLUME 74.1 fl (80.0-94.0); MEAN CORPUSCULAR HGB 20.6 pg (27.0-31.0); MEAN CORPUSCULAR HGB CONC 27.8 g/dl (33.0-37.0); MEAN PLATELET VOLUME 10.1 fl (9.6-12.3); MONO # 0.7 10*3/uL (0.1-1.0); MONO % 7.2 % (3.0-9.0); NEUT # 7.4 10*3/uL (2.3-7.9); NEUT % 73.8 % (47.0-73.0); PLATELET COUNT AUTOMATED 192 10*3/uL (130-400); RED BLOOD COUNT 4.17 10*6/uL (4.50-5.90); RED CELL DISTRI WIDTH 18.4 % (0-14.5)
[2024-01-21 14:24] LABS: POTASSIUM 3.7 mmol/L (3.4-5.1)
[2024-01-21] MEDS ORDERED: ACETAMINOPHEN 325 MG TAB PO ONE (14:30)
== END 2024-01-21 16:14 | disposition home or self-care (01) ==
LOC: ED 13:09
PROVIDERS: Internal Medicine
DX: E86.0 Dehydration (principal); R42 Dizziness and giddiness; I25.10 Atherosclerotic heart disease of native coronary artery without angina pectoris; J44.9 Chronic obstructive pulmonary disease, unspecified; E11.9 Type 2 diabetes mellitus without complications; Z79.4 Long term (current) use of insulin; Z86.73 Personal history of transient ischemic attack (TIA), and cerebral infarction without residual deficits; I10 Essential (primary) hypertension; M10.9 Gout, unspecified; I25.2 Old myocardial infarction; I48.91 Unspecified atrial fibrillation; D64.9 Anemia, unspecified; Z88.0 Allergy status to penicillin; Z88.1 Allergy status to other antibiotic agents; Z98.890 Other specified postprocedural states; Z90.49 Acquired absence of other specified parts of digestive tract; Z95.5 Presence of coronary angioplasty implant and graft; F10.10 Alcohol abuse, uncomplicated; Z87.891 Personal history of nicotine dependence

== ENCOUNTER 2024-01-23 12:36 | Emergency (ER) | payer OTHER ==
[~2024-01-23] VITALS: Ht 182.8 cm; Wt 102.1 kg
[2024-01-23 13:49] LABS: BASO % 0.2 % (0.0-1.0); EOS # 0.1 10*3/uL (0.0-0.4); EOS % 1.3 % (1.0-4.0); HEMATOCRIT 29.3 % (42.0-52.0); LYMPH # 1.8 10*3/uL (1.3-4.4); LYMPH % 16.6 % (27.0-41.0); MEAN CELL VOLUME 74.4 fl (80.0-94.0); MEAN CORPUSCULAR HGB 20.8 pg (27.0-31.0); MEAN PLATELET VOLUME 10.5 fl (9.6-12.3); MONO % 8.7 % (3.0-9.0); NEUT % 72.4 % (47.0-73.0); PLATELET COUNT AUTOMATED 193 10*3/uL (130-400); RED BLOOD COUNT 3.94 10*6/uL (4.50-5.90); RED CELL DISTRI WIDTH 18.5 % (0-14.5)
[2024-01-23 14:03] LABS: ACT PARTIAL THROMBO TIME 29.3 SECONDS (20.0-32.1)
[2024-01-23 14:12] LABS: ALKALINE PHOSPHATASE 83 U/L (46-116); BUN 48 mg/dl (9-23); CHLORIDE 108 mmol/L (98-107); POTASSIUM 3.7 mmol/L (3.4-5.1); SGPT/ALT 19 U/L (5-49); TOTAL PROTEIN 5.6 gm/dL (6.0-8.0)
[2024-01-23 15:58] VITALS: BP 111/54
[2024-01-23] MEDS ORDERED: Albuterol Sulf/Ipratropium 3 ML VIAL NEB ONE (16:15)
== END 2024-01-23 18:35 | disposition home or self-care (01) ==
LOC: ED 12:36
PROVIDERS: Physician Assistant
DX: G89.29 Other chronic pain (principal); R07.89 Other chest pain; I25.10 Atherosclerotic heart disease of native coronary artery without angina pectoris; J44.9 Chronic obstructive pulmonary disease, unspecified; E11.9 Type 2 diabetes mellitus without complications; I10 Essential (primary) hypertension; Z86.73 Personal history of transient ischemic attack (TIA), and cerebral infarction without residual deficits; I25.2 Old myocardial infarction; Z96.641 Presence of right artificial hip joint; I48.91 Unspecified atrial fibrillation; Z88.1 Allergy status to other antibiotic agents; Z88.0 Allergy status to penicillin; Z79.899 Other long term (current) drug therapy; Z79.82 Long term (current) use of aspirin; Z95.5 Presence of coronary angioplasty implant and graft; Z90.49 Acquired absence of other specified parts of digestive tract; Z89.431 Acquired absence of right foot; Z89.421 Acquired absence of other right toe(s); Z89.411 Acquired absence of right great toe; Z89.432 Acquired absence of left foot; Z89.422 Acquired absence of other left toe(s); Z98.890 Other specified postprocedural states; Z87.891 Personal history of nicotine dependence

== ENCOUNTER → 2024-01-26 | Outpatient (CLI) | payer OTHER | END | disposition home or self-care (01) | LOC: WOUNDCARE 01:51 | PROVIDERS: ATTEND Nurse Practitioner Family | DX: S81.002D Unspecified open wound, left knee, subsequent encounter (principal); S51.801D Unspecified open wound of right forearm, subsequent encounter; S81.801D Unspecified open wound, right lower leg, subsequent encounter; R26.89 Other abnormalities of gait and mobility; I12.9 Hypertensive chronic kidney disease with stage 1 through stage 4 chronic kidney disease, or unspecified chronic kidney disease; E11.22 Type 2 diabetes mellitus with diabetic chronic kidney disease; N18.30 Chronic kidney disease, stage 3 unspecified; E03.9 Hypothyroidism, unspecified; E11.40 Type 2 diabetes mellitus with diabetic neuropathy, unspecified; E11.51 Type 2 diabetes mellitus with diabetic peripheral angiopathy without gangrene; E78.5 Hyperlipidemia, unspecified; J44.1 Chronic obstructive pulmonary disease with (acute) exacerbation; Z87.891 Personal history of nicotine dependence; Z90.49 Acquired absence of other specified parts of digestive tract; Z96.641 Presence of right artificial hip joint; Z89.412 Acquired absence of left great toe; Z89.422 Acquired absence of other left toe(s); Z89.421 Acquired absence of other right toe(s); Z98.62 Peripheral vascular angioplasty status; Z79.4 Long term (current) use of insulin; Z79.82 Long term (current) use of aspirin; Z79.899 Other long term (current) drug therapy; X58.XXXD Exposure to other specified factors, subsequent encounter ==

== ENCOUNTER → 2024-02-02 | Outpatient (CLI) | payer OTHER ==
[~2024-02-02] MED LIST changes: +IRON325 M3 PO
== END | disposition home or self-care (01) ==
LOC: WOUNDCARE 01:16
PROVIDERS: ATTEND Nurse Practitioner Family
DX: S81.002D Unspecified open wound, left knee, subsequent encounter (principal); S81.801D Unspecified open wound, right lower leg, subsequent encounter; R26.89 Other abnormalities of gait and mobility; I12.9 Hypertensive chronic kidney disease with stage 1 through stage 4 chronic kidney disease, or unspecified chronic kidney disease; E11.22 Type 2 diabetes mellitus with diabetic chronic kidney disease; N18.30 Chronic kidney disease, stage 3 unspecified; E03.9 Hypothyroidism, unspecified; E11.40 Type 2 diabetes mellitus with diabetic neuropathy, unspecified; E11.51 Type 2 diabetes mellitus with diabetic peripheral angiopathy without gangrene; E78.5 Hyperlipidemia, unspecified; J44.1 Chronic obstructive pulmonary disease with (acute) exacerbation; Z87.891 Personal history of nicotine dependence; Z90.49 Acquired absence of other specified parts of digestive tract; Z96.641 Presence of right artificial hip joint; Z89.412 Acquired absence of left great toe; Z89.422 Acquired absence of other left toe(s); Z89.421 Acquired absence of other right toe(s); Z98.62 Peripheral vascular angioplasty status; Z79.4 Long term (current) use of insulin; Z79.82 Long term (current) use of aspirin; Z79.899 Other long term (current) drug therapy; X58.XXXD Exposure to other specified factors, subsequent encounter

== ENCOUNTER 2024-02-15 09:50 | Inpatient (IN) | payer OTHER ==
[~2024-02-15] VITALS: Ht 182.8 cm; Wt 101.2 kg
[2024-02-15 09:55] VITALS: BP 141/126
[2024-02-15] MEDS ORDERED: Albuterol Sulfate 2.5 MG/3 ML VIAL NEB ONE (10:05)
[2024-02-15] MEDS ORDERED: MAGNESIUM SULFATE 50 ML IV ONE (10:05)
[2024-02-15] MEDS ORDERED: methylPREDNISolone sod succ 125 MG VIAL IV ONE (10:05)
[2024-02-15 10:43] LABS: BASO # 0.1 10*3/uL (0.0-0.1); BASO % 0.4 % (0.0-1.0); EOS # 0.4 10*3/uL (0.0-0.4); EOS % 2.9 % (1.0-4.0); HEMATOCRIT 31.2 % (42.0-52.0); LYMPH # 1.2 10*3/uL (1.3-4.4); LYMPH % 8.6 % (27.0-41.0); MEAN CELL VOLUME 78.6 fl (80.0-94.0); MEAN CORPUSCULAR HGB 21.7 pg (27.0-31.0); MEAN CORPUSCULAR HGB CONC 27.6 g/dl (33.0-37.0); MEAN PLATELET VOLUME 10.5 fl (9.6-12.3); MONO % 7.4 % (3.0-9.0); NEUT # 11.1 10*3/uL (2.3-7.9); NEUT % 79.9 % (47.0-73.0); PLATELET COUNT AUTOMATED 208 10*3/uL (130-400); RED BLOOD COUNT 3.97 10*6/uL (4.50-5.90); RED CELL DISTRI WIDTH 24.2 % (0-14.5); WHITE BLOOD COUNT 13.9 10*3/uL (4.8-10.8)
[2024-02-15 10:52] LABS: ACT PARTIAL THROMBO TIME 43.7 SECONDS (20.0-32.1)
[2024-02-15 11:02] LABS: POTASSIUM 3.8 mmol/L (3.4-5.1)
[2024-02-15] MEDS ORDERED: LEVOFLOXACIN 150 ML IV ONE (11:30)
[2024-02-15] MEDS ORDERED: SODIUM CHLORIDE 0.9% 1,000 ML IV ONE (11:30)
[2024-02-15] MEDS ORDERED: MORPHINE Sulfate 2 MG/ML SYR IV ONE ×2 (13:10→21:35)
[2024-02-15] MEDS ORDERED: Ondansetron Hydrochloride 4 MG/2 ML VIAL IV PRN (13:20)
[2024-02-15] MEDS ORDERED: ACETAMINOPHEN 325 MG TAB PO PRN (13:20)
[2024-02-15] MEDS ORDERED: BISACODYL 5 MG TAB PO PRN (13:20)
[2024-02-15] MEDS ORDERED: Acetaminophen/Hydrocodone 5 MG/325 MG TABLET PO PRN (13:20)
[2024-02-15] MEDS ORDERED: Vancomycin Hydrochloride 1,000 MG in SODIUM CHLORIDE 0.9% 250 ML IV SCH (13:25)
[2024-02-15] MEDS ORDERED: DEXTROSE 10 % IN WATER 250 ML IV PRN (13:25)
[2024-02-15] MEDS ORDERED: Albuterol Sulf/Ipratropium 3 ML VIAL NEB SCH (13:31)
[2024-02-15] MEDS ORDERED: Meropenem 1 GM in SODIUM CHLORIDE 0.9% 100 ML IV SCH (14:00)
[2024-02-15 16:07] VITALS: BP 128/59
[2024-02-15] MEDS ORDERED: INSULIN LISPRO 1 UNIT/0.01 ML SQ SCH (16:30)
[2024-02-15 17:00] VITALS: BP 119/64
[2024-02-15 20:00] VITALS: BP 123/62
[2024-02-15] MEDS ORDERED: methylPREDNISolone sod succ 40 MG VIAL IV SCH (22:00)
[2024-02-16] VITALS: BP 141/63
[2024-02-16] MEDS ORDERED: FERROUS SULFATE 325 MG TAB PO SCH (00:35)
[2024-02-16] MEDS ORDERED: TIOTROPIUM BROMIDE 18 MCG CAPSULES INHALER INH SCH (00:35)
[2024-02-16] MEDS ORDERED: BUDESONIDE 0.5 MG AMP NEB SCH (00:50)
[2024-02-16] MEDS ORDERED: Albuterol Sulf/Ipratropium 3 ML VIAL NEB SCH (00:50)
[2024-02-16] MEDS ORDERED: IPRATROPIUM BROMIDE 0.5 MG/2.5 ML AMP NEB SCH (00:50)
[2024-02-16] MEDS ORDERED: SODIUM CHLORIDE 0.9% 1,000 ML IV ONE (01:45)
[2024-02-16] MEDS ORDERED: SODIUM CHLORIDE 0.9% 500 ML IV SCH (01:45)
[2024-02-16] MEDS ORDERED: Insulin Lispro, Recombinant 1 UNIT/0.01 ML UN SC ONE (01:45)
[2024-02-16] MEDS ORDERED: Levothyroxine Sodium 150 MCG TAB PO SCH (06:00)
[2024-02-16 06:56] LABS: HEMATOCRIT 28.2 % (42.0-52.0); MEAN CELL VOLUME 79.2 fl (80.0-94.0); MEAN CORPUSCULAR HGB 21.3 pg (27.0-31.0); MEAN PLATELET VOLUME 11.1 fl (9.6-12.3); PLATELET COUNT AUTOMATED 210 10*3/uL (130-400); RED BLOOD COUNT 3.56 10*6/uL (4.50-5.90); RED CELL DISTRI WIDTH 23.7 % (0-14.5); WHITE BLOOD COUNT 10.5 10*3/uL (4.8-10.8)
[2024-02-16 07:04] LABS: MANUAL DIFF REFLEX YES
[2024-02-16 07:25] LABS: POTASSIUM 4.1 mmol/L (3.4-5.1)
[2024-02-16] MEDS ORDERED: Insulin Glargine, Recombinan 1 UNIT/0.01 ML SC ONE (07:50)
[2024-02-16 08:00] VITALS: BP 118/80
[2024-02-16 08:08] LABS: PLATELET SUFFICIENCY NORMAL (NORMAL); TOTAL CELLS COUNTED 100 #CELLS
[2024-02-16 08:09] LABS: MICROCYTOSIS SLIGHT; OVALOCYTES FEW; POLYCHROMASIA SLIGHT
[2024-02-16] MEDS ORDERED: LEVOFLOXACIN 150 ML IV SCH (10:00)
[2024-02-16] MEDS ORDERED: Budesonide/Formoterol Fumarate 160/4.5 inhaler INH SCH (10:00)
[2024-02-16] MEDS ORDERED: BISACODYL 5 MG TAB PO SCH (10:00)
[2024-02-16] MEDS ORDERED: TOBRAMYCIN 2.5 ML BOT OPH SCH (10:00)
[2024-02-16] MEDS ORDERED: GABAPENTIN 600 MG TAB PO SCH (10:00)
[2024-02-16] MEDS ORDERED: ASPIRIN ENTERIC COATED 81 MG TAB PO SCH (10:00)
[2024-02-16] MEDS ORDERED: EMPAGLIFLOZIN 10 MG TABLET PO SCH (10:00)
[2024-02-16] MEDS ORDERED: MAGNESIUM 250 MG TAB PO SCH (10:00)
[2024-02-16] MEDS ORDERED: FUROSEMIDE 40 MG TAB PO SCH (10:00)
[2024-02-16] MEDS ORDERED: RIVAROXABAN 15 MG TAB PO SCH (10:00)
[2024-02-16] MEDS ORDERED: ISOSORBIDE MONONITRATE 30 MG TAB PO SCH (10:00)
[2024-02-16 12:00] VITALS: BP 128/56
[2024-02-16 16:00] VITALS: BP 112/53
[2024-02-16 20:00] VITALS: BP 130/62
[2024-02-16] MEDS ORDERED: MORPHINE Sulfate 2 MG/ML SYR IV ONE (20:50)
[2024-02-16] MEDS ORDERED: Insulin Glargine, Recombinan 1 UNIT/0.01 ML SC SCH (22:00)
[2024-02-16] MEDS ORDERED: TEMAZEPAM 15 MG CAP PO PRN (22:00)
[2024-02-17 06:58] LABS: HEMATOCRIT 29.8 % (42.0-52.0); MANUAL DIFF REFLEX YES; MEAN CELL VOLUME 79.3 fl (80.0-94.0); MEAN CORPUSCULAR HGB 21.5 pg (27.0-31.0); MEAN CORPUSCULAR HGB CONC 27.2 g/dl (33.0-37.0); MEAN PLATELET VOLUME 11.5 fl (9.6-12.3); NUCLEATED RED BLOOD CELL 0.2 % (0.0-0.0); PLATELET COUNT AUTOMATED 269 10*3/uL (130-400); RED BLOOD COUNT 3.76 10*6/uL (4.50-5.90); RED CELL DISTRI WIDTH 23.9 % (0-14.5); WHITE BLOOD COUNT 11.2 10*3/uL (4.8-10.8)
[2024-02-17 07:29] LABS: POTASSIUM 5.2 mmol/L (3.4-5.1)
[2024-02-17 07:33] LABS: BURR CELLS FEW; MICROCYTOSIS SLIGHT; OVALOCYTES FEW; PLATELET SUFFICIENCY NORMAL (NORMAL); POLYCHROMASIA SLIGHT; SCHISTOCYTES FEW; TOTAL CELLS COUNTED 100 #CELLS
[2024-02-17] MEDS ORDERED: SODIUM CHLORIDE 0.9% 500 ML IV ONE (07:55)
[2024-02-17 08:00] VITALS: BP 109/59
[2024-02-17] MEDS ORDERED: methylPREDNISolone sod succ 40 MG VIAL IV SCH (10:00)
[2024-02-17 11:55] VITALS: BP 145/67
[2024-02-17] MEDS ORDERED: Lidocaine Hydrochloride 4% 5 ML AMP NEB ONE (11:55)
[2024-02-17] MEDS ORDERED: Albuterol Sulfate 2.5 MG/0.5 ML VIAL NEB ONE ×2 (11:55→12:07)
[2024-02-17] MEDS ORDERED: SODIUM CHLORIDE 0.9% 1,000 ML IV ONE (12:00)
[2024-02-17] MEDS ORDERED: Lidocaine Hydrochloride 4% 5 ML AMP ONE (12:07)
[2024-02-17] MEDS ORDERED: Albuterol Sulf/Ipratropium 3 ML VIAL NEB ONE ×2 (12:50→13:01)
[2024-02-17 13:08] VITALS: BP 152/81
[2024-02-17 13:23] VITALS: BP 159/74; BP 164/74
[2024-02-17 13:38] VITALS: BP 159/74
[2024-02-17] MEDS ORDERED: LEVOFLOXACIN750 M2 PO (14:59)
[2024-02-17] MEDS ORDERED: PREDNISONE10 MG PO (15:00)
[2024-02-17] MEDS ORDERED: Lidocaine Hydrochloride 2% 10 ML AMP IM ONE (20:38)
[2024-02-17] MEDS ORDERED: PROPOFOL 200 MG/20 ML VIAL IV ONE (20:38)
[2024-02-18] MEDS ORDERED: LEVOFLOXACIN 150 ML IV SCH (10:00)
[2024-02-18 15:07] LABS: ACID FAST SPEC PROCESSING Concentration (.)
== END 2024-02-17 16:14 | disposition left against medical advice (07) | DRG 871 ==
LOC: ED 09:50 → EDHOLD 11:43 → 4E 11:43 → EDHOLD 11:44 → 4E 14:27
PROVIDERS: Emergency Medicine; Internal Medicine Critical Care Medicine; Registered Nurse; ADMIT Internal Medicine; ATTEND Internal Medicine
PROC: 0BC18ZZ Extirpation of Matter from Trachea, Via Natural or Artificial Opening Endoscopic (ICD-10-PCS; principal; 2024-02-17)
PROC: 0BC98ZZ Extirpation of Matter from Lingula Bronchus, Via Natural or Artificial Opening Endoscopic (ICD-10-PCS; 2024-02-17)
PROC: 0BC48ZZ Extirpation of Matter from Right Upper Lobe Bronchus, Via Natural or Artificial Opening Endoscopic (ICD-10-PCS; 2024-02-17)
PROC: 0BC88ZZ Extirpation of Matter from Left Upper Lobe Bronchus, Via Natural or Artificial Opening Endoscopic (ICD-10-PCS; 2024-02-17)
PROC: 0BC58ZZ Extirpation of Matter from Right Middle Lobe Bronchus, Via Natural or Artificial Opening Endoscopic (ICD-10-PCS; 2024-02-17)
PROC: 0BC38ZZ Extirpation of Matter from Right Main Bronchus, Via Natural or Artificial Opening Endoscopic (ICD-10-PCS; 2024-02-17)
PROC: 0BC78ZZ Extirpation of Matter from Left Main Bronchus, Via Natural or Artificial Opening Endoscopic (ICD-10-PCS; 2024-02-17)
PROC: 0BC68ZZ Extirpation of Matter from Right Lower Lobe Bronchus, Via Natural or Artificial Opening Endoscopic (ICD-10-PCS; 2024-02-17)
PROC: 0BCB8ZZ Extirpation of Matter from Left Lower Lobe Bronchus, Via Natural or Artificial Opening Endoscopic (ICD-10-PCS; 2024-02-17)
DX: A41.9 Sepsis, unspecified organism (principal); J18.9 Pneumonia, unspecified organism; J44.1 Chronic obstructive pulmonary disease with (acute) exacerbation; J44.0 Chronic obstructive pulmonary disease with (acute) lower respiratory infection; T17.590A Other foreign object in bronchus causing asphyxiation, initial encounter; I50.22 Chronic systolic (congestive) heart failure; I48.19 Other persistent atrial fibrillation; I13.0 Hypertensive heart and chronic kidney disease with heart failure and stage 1 through stage 4 chronic kidney disease, or unspecified chronic kidney disease; E87.20 Acidosis, unspecified; N17.9 Acute kidney failure, unspecified; I25.10 Atherosclerotic heart disease of native coronary artery without angina pectoris; Z79.4 Long term (current) use of insulin; E11.22 Type 2 diabetes mellitus with diabetic chronic kidney disease; N18.32 Chronic kidney disease, stage 3b; E78.01 Familial hypercholesterolemia; E11.51 Type 2 diabetes mellitus with diabetic peripheral angiopathy without gangrene; D50.9 Iron deficiency anemia, unspecified; N40.0 Benign prostatic hyperplasia without lower urinary tract symptoms; W44.F9XA Other object of natural or organic material, entering into or through a natural orifice, initial encounter; M1A.9XX0 Chronic gout, unspecified, without tophus (tophi); K21.9 Gastro-esophageal reflux disease without esophagitis; E11.40 Type 2 diabetes mellitus with diabetic neuropathy, unspecified; S81.801A Unspecified open wound, right lower leg, initial encounter; Z53.29 Procedure and treatment not carried out because of patient's decision for other reasons; F41.1 Generalized anxiety disorder; E87.5 Hyperkalemia; Z96.641 Presence of right artificial hip joint; I25.2 Old myocardial infarction; Y93.89 Activity, other specified; Y92.89 Other specified places as the place of occurrence of the external cause; Y99.8 Other external cause status; Z79.01 Long term (current) use of anticoagulants; Z88.0 Allergy status to penicillin; Z88.1 Allergy status to other antibiotic agents; Z88.8 Allergy status to other drugs, medicaments and biological substances; Z95.5 Presence of coronary angioplasty implant and graft; Z90.49 Acquired absence of other specified parts of digestive tract; Z82.49 Family history of ischemic heart disease and other diseases of the circulatory system; Z83.3 Family history of diabetes mellitus; Z68.31 Body mass index [BMI] 31.0-31.9, adult

== ENCOUNTER → 2024-02-15 | Outpatient (CLI) | payer OTHER | END | disposition home or self-care (01) | LOC: RESCLI 00:15 → WOUNDCARE 00:44 → RESCLI 00:44 | PROVIDERS: ATTEND Internal Medicine | DX: S81.801D Unspecified open wound, right lower leg, subsequent encounter (principal); E11.622 Type 2 diabetes mellitus with other skin ulcer; L98.491 Non-pressure chronic ulcer of skin of other sites limited to breakdown of skin; E11.22 Type 2 diabetes mellitus with diabetic chronic kidney disease; I13.10 Hypertensive heart and chronic kidney disease without heart failure, with stage 1 through stage 4 chronic kidney disease, or unspecified chronic kidney disease; N18.30 Chronic kidney disease, stage 3 unspecified; E11.51 Type 2 diabetes mellitus with diabetic peripheral angiopathy without gangrene; E11.40 Type 2 diabetes mellitus with diabetic neuropathy, unspecified; I48.91 Unspecified atrial fibrillation; I48.92 Unspecified atrial flutter; E78.5 Hyperlipidemia, unspecified; E03.9 Hypothyroidism, unspecified; J44.9 Chronic obstructive pulmonary disease, unspecified; R26.89 Other abnormalities of gait and mobility; Z87.891 Personal history of nicotine dependence; Z96.641 Presence of right artificial hip joint; Z98.62 Peripheral vascular angioplasty status; Z90.49 Acquired absence of other specified parts of digestive tract; Z89.412 Acquired absence of left great toe; Z89.422 Acquired absence of other left toe(s); Z89.431 Acquired absence of right foot; Z79.4 Long term (current) use of insulin; Z79.82 Long term (current) use of aspirin; Z79.899 Other long term (current) drug therapy; X58.XXXD Exposure to other specified factors, subsequent encounter ==

== ENCOUNTER 2024-02-17 17:35 | Emergency (ER) | payer OTHER ==
[~2024-02-17] VITALS: Ht 187.9 cm; Wt 101.2 kg
[2024-02-17 17:52] VITALS: BP 121/82
[2024-02-17 18:03] LABS: HEMATOCRIT 29.7 % (42.0-52.0); MEAN CELL VOLUME 79.8 fl (80.0-94.0); MEAN CORPUSCULAR HGB 21.5 pg (27.0-31.0); MEAN CORPUSCULAR HGB CONC 26.9 g/dl (33.0-37.0); MEAN PLATELET VOLUME 11.1 fl (9.6-12.3); NUCLEATED RED BLOOD CELL 0.1 % (0.0-0.0); PLATELET COUNT AUTOMATED 320 10*3/uL (130-400); RED BLOOD COUNT 3.72 10*6/uL (4.50-5.90); WHITE BLOOD COUNT 14.1 10*3/uL (4.8-10.8)
[2024-02-17 18:05] LABS: MANUAL DIFF REFLEX YES
[2024-02-17 18:23] LABS: PLATELET SUFFICIENCY NORMAL (NORMAL); POLYCHROMASIA SLIGHT; TOTAL CELLS COUNTED 100 #CELLS
[2024-02-17 18:24] LABS: ACANTHOCYTES FEW; BURR CELLS FEW
[2024-02-17 18:30] LABS: POTASSIUM 5.1 mmol/L (3.4-5.1)
[2024-02-17] MEDS ORDERED: INSULIN REGULAR, HUMAN 1 UNIT/0.01 ML IV ONE (18:40)
[2024-02-17] MEDS ORDERED: FUROSEMIDE 40 MG/4 ML VIAL IV ONE (18:40)
== END 2024-02-17 20:10 | disposition home or self-care (01) ==
LOC: ED 17:35
PROVIDERS: Physician Assistant Medical
DX: J18.9 Pneumonia, unspecified organism (principal); J44.9 Chronic obstructive pulmonary disease, unspecified; E11.22 Type 2 diabetes mellitus with diabetic chronic kidney disease; I13.0 Hypertensive heart and chronic kidney disease with heart failure and stage 1 through stage 4 chronic kidney disease, or unspecified chronic kidney disease; I50.9 Heart failure, unspecified; N18.9 Chronic kidney disease, unspecified; I25.10 Atherosclerotic heart disease of native coronary artery without angina pectoris; E78.5 Hyperlipidemia, unspecified; I48.91 Unspecified atrial fibrillation; M10.9 Gout, unspecified; D64.9 Anemia, unspecified; Z88.8 Allergy status to other drugs, medicaments and biological substances; Z88.0 Allergy status to penicillin; Z88.1 Allergy status to other antibiotic agents; Z98.890 Other specified postprocedural states; Z90.49 Acquired absence of other specified parts of digestive tract; Z95.5 Presence of coronary angioplasty implant and graft; F10.10 Alcohol abuse, uncomplicated; Z87.891 Personal history of nicotine dependence

== ENCOUNTER 2024-02-18 18:54 | Emergency (ER) | payer OTHER ==
[~2024-02-18] VITALS: Ht 182.8 cm; Wt 104.3 kg
[2024-02-18 18:57] VITALS: BP 143/56
[2024-02-18 19:12] LABS: HEMATOCRIT 28.9 % (42.0-52.0); LYMPH # 0.8 10*3/uL (1.3-4.4); LYMPH % 7.1 % (27.0-41.0); MEAN CELL VOLUME 76.9 fl (80.0-94.0); MEAN CORPUSCULAR HGB 21.8 pg (27.0-31.0); MEAN CORPUSCULAR HGB CONC 28.4 g/dl (33.0-37.0); MEAN PLATELET VOLUME 10.4 fl (9.6-12.3); MONO # 0.9 10*3/uL (0.1-1.0); MONO % 7.8 % (3.0-9.0); NEUT # 9.1 10*3/uL (2.3-7.9); NEUT % 83.3 % (47.0-73.0); NUCLEATED RED BLOOD CELL 0.1 10*3/uL (0.0-0.0); NUCLEATED RED BLOOD CELL 0.5 % (0.0-0.0); PLATELET COUNT AUTOMATED 306 10*3/uL (130-400); RED BLOOD COUNT 3.76 10*6/uL (4.50-5.90); RED CELL DISTRI WIDTH 23.6 % (0-14.5); WHITE BLOOD COUNT 10.9 10*3/uL (4.8-10.8)
[2024-02-18 19:39] LABS: POTASSIUM 4.7 mmol/L (3.4-5.1)
[2024-02-18 19:41] LABS: BILIRUBIN Negative (Negative); BLOOD Negative (Negative); CLARITY Clear (Clear); COLOR Yellow (Yellow); GLUCOSE 3+ (Negative); KETONE Negative (Negative); LEUKO ESTERASE Negative (Negative); NITRITE Negative (Negative); UROBILINOGEN 0.2 E.U./dl (0.0-1.0)
[2024-02-18] MEDS ORDERED: INSULIN REGULAR, HUMAN 1 UNIT/0.01 ML IV ONE (19:45)
[2024-02-18 19:50] LABS: WBC 0-2 wbc/hpf (0-5)
== END 2024-02-18 20:13 | disposition home or self-care (01) ==
LOC: ED 18:54
PROVIDERS: Internal Medicine
DX: E11.65 Type 2 diabetes mellitus with hyperglycemia (principal); Z79.4 Long term (current) use of insulin; I11.0 Hypertensive heart disease with heart failure; I50.9 Heart failure, unspecified; I25.10 Atherosclerotic heart disease of native coronary artery without angina pectoris; J44.9 Chronic obstructive pulmonary disease, unspecified; Z86.73 Personal history of transient ischemic attack (TIA), and cerebral infarction without residual deficits; M10.9 Gout, unspecified; I48.91 Unspecified atrial fibrillation; D64.9 Anemia, unspecified; Z88.1 Allergy status to other antibiotic agents; Z88.0 Allergy status to penicillin; Z88.8 Allergy status to other drugs, medicaments and biological substances; Z90.49 Acquired absence of other specified parts of digestive tract; Z95.5 Presence of coronary angioplasty implant and graft; Z98.890 Other specified postprocedural states; F10.10 Alcohol abuse, uncomplicated; Z87.891 Personal history of nicotine dependence; F14.10 Cocaine abuse, uncomplicated; F11.10 Opioid abuse, uncomplicated

== ENCOUNTER → 2024-02-22 | Outpatient (CLI) | payer OTHER | END | disposition home or self-care (01) | LOC: WOUNDCARE 03:45 | PROVIDERS: ATTEND Nurse Practitioner Family | DX: S81.801D Unspecified open wound, right lower leg, subsequent encounter (principal); E11.622 Type 2 diabetes mellitus with other skin ulcer; L98.491 Non-pressure chronic ulcer of skin of other sites limited to breakdown of skin; E11.22 Type 2 diabetes mellitus with diabetic chronic kidney disease; I12.9 Hypertensive chronic kidney disease with stage 1 through stage 4 chronic kidney disease, or unspecified chronic kidney disease; N18.30 Chronic kidney disease, stage 3 unspecified; E11.51 Type 2 diabetes mellitus with diabetic peripheral angiopathy without gangrene; E11.40 Type 2 diabetes mellitus with diabetic neuropathy, unspecified; I48.91 Unspecified atrial fibrillation; I48.92 Unspecified atrial flutter; E78.5 Hyperlipidemia, unspecified; E03.9 Hypothyroidism, unspecified; J44.9 Chronic obstructive pulmonary disease, unspecified; R26.89 Other abnormalities of gait and mobility; Z87.891 Personal history of nicotine dependence; Z96.641 Presence of right artificial hip joint; Z90.49 Acquired absence of other specified parts of digestive tract; Z98.62 Peripheral vascular angioplasty status; Z89.412 Acquired absence of left great toe; Z89.431 Acquired absence of right foot; Z79.4 Long term (current) use of insulin; Z79.82 Long term (current) use of aspirin; Z79.899 Other long term (current) drug therapy; X58.XXXD Exposure to other specified factors, subsequent encounter ==

== ENCOUNTER 2024-02-27 12:01 | Emergency (ER) | payer OTHER ==
[~2024-02-27] VITALS: Ht 182.8 cm; Wt 104.3 kg
[2024-02-27 12:17] VITALS: BP 132/52
[2024-02-27] MEDS ORDERED: Ondansetron Hydrochloride 4 MG/2 ML VIAL IV ONE (12:20)
[2024-02-27] MEDS ORDERED: MORPHINE Sulfate 2 MG/ML SYR IV ONE ×2 (12:20→12:45)
[2024-02-27 12:28] LABS: BASO % 0.2 % (0.0-1.0); EOS # 0.3 10*3/uL (0.0-0.4); EOS % 2.7 % (1.0-4.0); HEMATOCRIT 33.2 % (42.0-52.0); LYMPH # 1.9 10*3/uL (1.3-4.4); LYMPH % 15.5 % (27.0-41.0); MEAN CORPUSCULAR HGB 21.9 pg (27.0-31.0); MEAN CORPUSCULAR HGB CONC 27.7 g/dl (33.0-37.0); MEAN PLATELET VOLUME 10.5 fl (9.6-12.3); MONO # 0.9 10*3/uL (0.1-1.0); MONO % 7.6 % (3.0-9.0); NEUT # 9.1 10*3/uL (2.3-7.9); NEUT % 73.3 % (47.0-73.0); PLATELET COUNT AUTOMATED 172 10*3/uL (130-400); RED CELL DISTRI WIDTH 23.6 % (0-14.5); WHITE BLOOD COUNT 12.4 10*3/uL (4.8-10.8)
[2024-02-27 12:37] LABS: ACT PARTIAL THROMBO TIME 39.1 SECONDS (20.0-32.1)
[2024-02-27 12:49] LABS: POTASSIUM 3.8 mmol/L (3.4-5.1); TOTAL PROTEIN 6.2 gm/dL (6.0-8.0)
[2024-02-27] MEDS ORDERED: Albuterol Sulfate 2.5 MG/3 ML VIAL NEB ONE (13:00)
== END 2024-02-27 14:14 | disposition home or self-care (01) ==
LOC: ED 12:01
PROVIDERS: Emergency Medicine
DX: R07.89 Other chest pain (principal); M25.512 Pain in left shoulder; J44.9 Chronic obstructive pulmonary disease, unspecified; I48.91 Unspecified atrial fibrillation; I50.9 Heart failure, unspecified; E78.5 Hyperlipidemia, unspecified; E11.22 Type 2 diabetes mellitus with diabetic chronic kidney disease; I13.0 Hypertensive heart and chronic kidney disease with heart failure and stage 1 through stage 4 chronic kidney disease, or unspecified chronic kidney disease; N18.9 Chronic kidney disease, unspecified; I25.10 Atherosclerotic heart disease of native coronary artery without angina pectoris; Z86.73 Personal history of transient ischemic attack (TIA), and cerebral infarction without residual deficits; M10.9 Gout, unspecified; D64.9 Anemia, unspecified; Z88.8 Allergy status to other drugs, medicaments and biological substances; Z88.0 Allergy status to penicillin; Z88.1 Allergy status to other antibiotic agents; Z98.890 Other specified postprocedural states; Z90.49 Acquired absence of other specified parts of digestive tract; Z95.5 Presence of coronary angioplasty implant and graft; F10.10 Alcohol abuse, uncomplicated; Z87.891 Personal history of nicotine dependence; F14.10 Cocaine abuse, uncomplicated; F11.10 Opioid abuse, uncomplicated

== ENCOUNTER 2024-02-28 15:40 | Emergency (ER) | payer OTHER ==
[~2024-02-28] VITALS: Ht 182.8 cm; Wt 104.3 kg
[2024-02-28 15:47] VITALS: BP 129/58
[2024-02-28] MEDS ORDERED: Albuterol Sulfate 2.5 MG/3 ML VIAL NEB ONE (15:55)
[2024-02-28] MEDS ORDERED: MORPHINE Sulfate 2 MG/ML SYR IV ONE (15:55)
[2024-02-28] MEDS ORDERED: methylPREDNISolone sod succ 125 MG VIAL IV ONE (15:55)
[2024-02-28] MEDS ORDERED: Ondansetron Hydrochloride 4 MG/2 ML VIAL IV ONE (15:55)
[2024-02-28 16:24] LABS: BASO % 0.2 % (0.0-1.0); EOS # 0.3 10*3/uL (0.0-0.4); EOS % 2.8 % (1.0-4.0); HEMATOCRIT 31.8 % (42.0-52.0); LYMPH # 1.3 10*3/uL (1.3-4.4); LYMPH % 11.9 % (27.0-41.0); MEAN CELL VOLUME 80.1 fl (80.0-94.0); MEAN CORPUSCULAR HGB 21.4 pg (27.0-31.0); MEAN CORPUSCULAR HGB CONC 26.7 g/dl (33.0-37.0); MEAN PLATELET VOLUME 10.5 fl (9.6-12.3); MONO # 0.9 10*3/uL (0.1-1.0); MONO % 8.7 % (3.0-9.0); NEUT # 8.2 10*3/uL (2.3-7.9); NEUT % 75.5 % (47.0-73.0); PLATELET COUNT AUTOMATED 150 10*3/uL (130-400); RED BLOOD COUNT 3.97 10*6/uL (4.50-5.90); RED CELL DISTRI WIDTH 23.6 % (0-14.5); WHITE BLOOD COUNT 10.8 10*3/uL (4.8-10.8)
[2024-02-28 16:41] LABS: POTASSIUM 4.1 mmol/L (3.4-5.1); TOTAL PROTEIN 5.6 gm/dL (6.0-8.0)
== END 2024-02-28 18:43 | disposition home or self-care (01) ==
LOC: ED 15:40
PROVIDERS: Emergency Medicine
DX: J44.1 Chronic obstructive pulmonary disease with (acute) exacerbation (principal); R07.89 Other chest pain; R06.02 Shortness of breath; I25.10 Atherosclerotic heart disease of native coronary artery without angina pectoris; Z86.73 Personal history of transient ischemic attack (TIA), and cerebral infarction without residual deficits; M10.9 Gout, unspecified; I48.91 Unspecified atrial fibrillation; I25.2 Old myocardial infarction; D64.9 Anemia, unspecified; E11.22 Type 2 diabetes mellitus with diabetic chronic kidney disease; I12.9 Hypertensive chronic kidney disease with stage 1 through stage 4 chronic kidney disease, or unspecified chronic kidney disease; N18.9 Chronic kidney disease, unspecified; E78.5 Hyperlipidemia, unspecified; Z88.8 Allergy status to other drugs, medicaments and biological substances; Z88.0 Allergy status to penicillin; Z88.1 Allergy status to other antibiotic agents; Z95.5 Presence of coronary angioplasty implant and graft; Z98.890 Other specified postprocedural states; Z90.49 Acquired absence of other specified parts of digestive tract; F10.10 Alcohol abuse, uncomplicated; Z87.891 Personal history of nicotine dependence

== ENCOUNTER → 2024-02-29 | Outpatient (CLI) | payer OTHER ==
[~2024-02-29] MED LIST changes: +LORADAMED10 MG PO
[2024-02-29 10:17] LABS: BILIRUBIN Negative (Negative); BLOOD Negative (Negative); CLARITY Clear (Clear); COLOR Yellow (Yellow); GLUCOSE 3+ (Negative); KETONE Negative (Negative); LEUKO ESTERASE Negative (Negative); NITRITE Negative (Negative); UROBILINOGEN 0.2 E.U./dl (0.0-1.0)
[2024-02-29 10:28] LABS: FREE T4 1.3 ng/dl (0.89-1.76)
[2024-02-29 10:32] LABS: POTASSIUM 5.2 mmol/L (3.4-5.1)
[2024-02-29 10:40] LABS: VITAMIN D, 25-HYDROXY 50.4 ng/mL (30-100)
[2024-02-29 10:41] LABS: RBC 0-2 rbc/hpf (0-2); WBC 0-2 wbc/hpf (0-5)
== END | disposition home or self-care (01) ==
LOC: LAB 02:45 → WOUNDCARE 02:45
PROVIDERS: Internal Medicine; ATTEND Nurse Practitioner Family
DX: S81.801D Unspecified open wound, right lower leg, subsequent encounter (principal); S81.002A Unspecified open wound, left knee, initial encounter; E11.622 Type 2 diabetes mellitus with other skin ulcer; L98.491 Non-pressure chronic ulcer of skin of other sites limited to breakdown of skin; E11.40 Type 2 diabetes mellitus with diabetic neuropathy, unspecified; E11.51 Type 2 diabetes mellitus with diabetic peripheral angiopathy without gangrene; E11.22 Type 2 diabetes mellitus with diabetic chronic kidney disease; I12.9 Hypertensive chronic kidney disease with stage 1 through stage 4 chronic kidney disease, or unspecified chronic kidney disease; N18.30 Chronic kidney disease, stage 3 unspecified; I48.91 Unspecified atrial fibrillation; E78.5 Hyperlipidemia, unspecified; E03.9 Hypothyroidism, unspecified; J44.9 Chronic obstructive pulmonary disease, unspecified; R26.89 Other abnormalities of gait and mobility; Z87.891 Personal history of nicotine dependence; Z96.641 Presence of right artificial hip joint; Z90.49 Acquired absence of other specified parts of digestive tract; Z98.62 Peripheral vascular angioplasty status; Z89.412 Acquired absence of left great toe; Z89.431 Acquired absence of right foot; Z79.4 Long term (current) use of insulin; Z79.82 Long term (current) use of aspirin; Z79.899 Other long term (current) drug therapy; X58.XXXD Exposure to other specified factors, subsequent encounter; X58.XXXA Exposure to other specified factors, initial encounter; Y93.89 Activity, other specified; Y92.89 Other specified places as the place of occurrence of the external cause; Y99.8 Other external cause status

== ENCOUNTER 2024-03-04 07:14 | Emergency (ER) | payer OTHER ==
[~2024-03-04] VITALS: Ht 182.8 cm; Wt 106.6 kg
[~2024-03-04 07:14] MED LIST changes: -LORADAMED10 MG PO
[2024-03-04 07:32] VITALS: BP 136/58
[2024-03-04] MEDS ORDERED: methylPREDNISolone sod succ 125 MG VIAL IV ONE (07:40)
[2024-03-04] MEDS ORDERED: Albuterol Sulf/Ipratropium 3 ML VIAL NEB ONE (07:40)
[2024-03-04 08:00] LABS: BASO % 0.1 % (0.0-1.0); EOS % 0.2 % (1.0-4.0); HEMATOCRIT 30.9 % (42.0-52.0); LYMPH # 0.9 10*3/uL (1.3-4.4); LYMPH % 9.8 % (27.0-41.0); MEAN CELL VOLUME 77.4 fl (80.0-94.0); MEAN CORPUSCULAR HGB 21.8 pg (27.0-31.0); MEAN CORPUSCULAR HGB CONC 28.2 g/dl (33.0-37.0); MEAN PLATELET VOLUME 10.8 fl (9.6-12.3); MONO # 0.2 10*3/uL (0.1-1.0); MONO % 1.9 % (3.0-9.0); NEUT % 87.7 % (47.0-73.0); PLATELET COUNT AUTOMATED 159 10*3/uL (130-400); RED BLOOD COUNT 3.99 10*6/uL (4.50-5.90); RED CELL DISTRI WIDTH 24.1 % (0-14.5); WHITE BLOOD COUNT 9.1 10*3/uL (4.8-10.8)
[2024-03-04] MEDS ORDERED: methylPREDNISolone sod succ 1,000 MG/16 ML VIAL IM ONE (08:10)
[2024-03-04 08:20] LABS: POTASSIUM 4.3 mmol/L (3.4-5.1); TOTAL PROTEIN 5.8 gm/dL (6.0-8.0)
[2024-03-04] MEDS ORDERED: methylPREDNISolone sod succ 125 MG VIAL IM ONE (08:25)
[2024-03-04] MEDS ORDERED: MAGNESIUM OXIDE 400 MG TAB PO ONE (10:40)
[2024-03-04] MEDS ORDERED: LORADAMED10 MG PO (10:43)
== END 2024-03-04 11:12 | disposition home or self-care (01) ==
LOC: ED 07:14
PROVIDERS: Internal Medicine
DX: J30.2 Other seasonal allergic rhinitis (principal); R06.02 Shortness of breath; J44.9 Chronic obstructive pulmonary disease, unspecified; I50.9 Heart failure, unspecified; I11.0 Hypertensive heart disease with heart failure; M10.9 Gout, unspecified; I25.2 Old myocardial infarction; I48.91 Unspecified atrial fibrillation; D64.9 Anemia, unspecified; I25.10 Atherosclerotic heart disease of native coronary artery without angina pectoris; E11.9 Type 2 diabetes mellitus without complications; Z88.8 Allergy status to other drugs, medicaments and biological substances; Z88.0 Allergy status to penicillin; Z88.1 Allergy status to other antibiotic agents; Z90.49 Acquired absence of other specified parts of digestive tract; Z98.890 Other specified postprocedural states; Z95.5 Presence of coronary angioplasty implant and graft; Z87.891 Personal history of nicotine dependence; F10.10 Alcohol abuse, uncomplicated; F14.10 Cocaine abuse, uncomplicated; Z79.4 Long term (current) use of insulin; Z86.73 Personal history of transient ischemic attack (TIA), and cerebral infarction without residual deficits

== ENCOUNTER 2024-03-04 22:35 | Emergency (ER) | payer OTHER ==
[~2024-03-04] VITALS: Wt 107.5 kg
[~2024-03-04 22:35] MED LIST changes: +LORADAMED10 MG PO
[2024-03-04 23:03] LABS: HEMATOCRIT 29.5 % (42.0-52.0); MEAN CELL VOLUME 77.8 fl (80.0-94.0); MEAN CORPUSCULAR HGB 21.4 pg (27.0-31.0); MEAN CORPUSCULAR HGB CONC 27.5 g/dl (33.0-37.0); MEAN PLATELET VOLUME 10.9 fl (9.6-12.3); PLATELET COUNT AUTOMATED 150 10*3/uL (130-400); RED BLOOD COUNT 3.79 10*6/uL (4.50-5.90); RED CELL DISTRI WIDTH 24.2 % (0-14.5); WHITE BLOOD COUNT 5.9 10*3/uL (4.8-10.8)
[2024-03-04 23:04] LABS: MANUAL DIFF REFLEX YES
[2024-03-04 23:28] LABS: PLATELET SUFFICIENCY LOW (NORMAL); TOTAL CELLS COUNTED 100 #CELLS
[2024-03-04 23:29] LABS: MICROCYTOSIS SLIGHT; OVALOCYTES FEW; POLYCHROMASIA SLIGHT
[2024-03-04 23:50] LABS: ETHYL ALCOHOL 51.2 mg/dl (<3); POTASSIUM 3.8 mmol/L (3.4-5.1); TOTAL PROTEIN 5.7 gm/dL (6.0-8.0)
[2024-03-04 23:52] VITALS: BP 98/63
[2024-03-04] MEDS ORDERED: INSULIN REGULAR, HUMAN 1 UNIT/0.01 ML SC ONE ×2 (23:55)
== END 2024-03-05 00:55 | disposition left against medical advice (07) ==
LOC: ED 22:35
PROVIDERS: Internal Medicine
DX: R07.89 Other chest pain (principal); R06.02 Shortness of breath; I25.10 Atherosclerotic heart disease of native coronary artery without angina pectoris; Z53.29 Procedure and treatment not carried out because of patient's decision for other reasons; Z88.8 Allergy status to other drugs, medicaments and biological substances; Z88.0 Allergy status to penicillin; Z88.1 Allergy status to other antibiotic agents; Z98.890 Other specified postprocedural states; Z90.49 Acquired absence of other specified parts of digestive tract; Z95.5 Presence of coronary angioplasty implant and graft; F10.10 Alcohol abuse, uncomplicated; Z87.891 Personal history of nicotine dependence; F14.10 Cocaine abuse, uncomplicated; F11.10 Opioid abuse, uncomplicated

== ENCOUNTER 2024-03-07 14:03 | Emergency (ER) | payer OTHER ==
[~2024-03-07] VITALS: Ht 182.8 cm; Wt 102.1 kg
[2024-03-07 14:42] VITALS: BP 112/53
[2024-03-07 15:10] LABS: BASO % 0.1 % (0.0-1.0); EOS # 0.4 10*3/uL (0.0-0.4); EOS % 3.1 % (1.0-4.0); HEMATOCRIT 32.3 % (42.0-52.0); LYMPH # 1.7 10*3/uL (1.3-4.4); LYMPH % 14.6 % (27.0-41.0); MEAN CELL VOLUME 78.4 fl (80.0-94.0); MEAN CORPUSCULAR HGB 21.8 pg (27.0-31.0); MEAN CORPUSCULAR HGB CONC 27.9 g/dl (33.0-37.0); MEAN PLATELET VOLUME 10.1 fl (9.6-12.3); MONO # 0.9 10*3/uL (0.1-1.0); MONO % 7.5 % (3.0-9.0); NEUT # 8.5 10*3/uL (2.3-7.9); PLATELET COUNT AUTOMATED 189 10*3/uL (130-400); RED BLOOD COUNT 4.12 10*6/uL (4.50-5.90); WHITE BLOOD COUNT 11.5 10*3/uL (4.8-10.8)
[2024-03-07 15:27] LABS: POTASSIUM 4.1 mmol/L (3.4-5.1); TOTAL PROTEIN 5.5 gm/dL (6.0-8.0)
== END 2024-03-07 15:37 | disposition left against medical advice (07) ==
LOC: ED 14:03
PROVIDERS: Internal Medicine
DX: E11.649 Type 2 diabetes mellitus with hypoglycemia without coma (principal); Z53.29 Procedure and treatment not carried out because of patient's decision for other reasons; I25.10 Atherosclerotic heart disease of native coronary artery without angina pectoris; J44.9 Chronic obstructive pulmonary disease, unspecified; Z86.73 Personal history of transient ischemic attack (TIA), and cerebral infarction without residual deficits; I10 Essential (primary) hypertension; M10.9 Gout, unspecified; I25.2 Old myocardial infarction; I48.91 Unspecified atrial fibrillation; D64.9 Anemia, unspecified; Z88.8 Allergy status to other drugs, medicaments and biological substances; Z88.0 Allergy status to penicillin; Z88.1 Allergy status to other antibiotic agents; Z90.49 Acquired absence of other specified parts of digestive tract; Z98.890 Other specified postprocedural states; F10.10 Alcohol abuse, uncomplicated; Z87.891 Personal history of nicotine dependence

== ENCOUNTER → 2024-03-07 | Outpatient (CLI) | payer OTHER | END | disposition home or self-care (01) | LOC: WOUNDCARE 03:59 | PROVIDERS: ATTEND Nurse Practitioner Family | DX: S51.801A Unspecified open wound of right forearm, initial encounter (principal); S81.002D Unspecified open wound, left knee, subsequent encounter; E11.622 Type 2 diabetes mellitus with other skin ulcer; L98.491 Non-pressure chronic ulcer of skin of other sites limited to breakdown of skin; E11.40 Type 2 diabetes mellitus with diabetic neuropathy, unspecified; E11.51 Type 2 diabetes mellitus with diabetic peripheral angiopathy without gangrene; E11.22 Type 2 diabetes mellitus with diabetic chronic kidney disease; I12.9 Hypertensive chronic kidney disease with stage 1 through stage 4 chronic kidney disease, or unspecified chronic kidney disease; N18.30 Chronic kidney disease, stage 3 unspecified; E78.5 Hyperlipidemia, unspecified; E03.9 Hypothyroidism, unspecified; J44.9 Chronic obstructive pulmonary disease, unspecified; R26.89 Other abnormalities of gait and mobility; Z87.891 Personal history of nicotine dependence; Z96.641 Presence of right artificial hip joint; Z90.49 Acquired absence of other specified parts of digestive tract; Z98.62 Peripheral vascular angioplasty status; Z89.412 Acquired absence of left great toe; Z89.422 Acquired absence of other left toe(s); Z89.431 Acquired absence of right foot; Z79.4 Long term (current) use of insulin; Z79.82 Long term (current) use of aspirin; Z79.899 Other long term (current) drug therapy; X58.XXXD Exposure to other specified factors, subsequent encounter; X58.XXXA Exposure to other specified factors, initial encounter; Y93.89 Activity, other specified; Y92.89 Other specified places as the place of occurrence of the external cause; Y99.8 Other external cause status ==

== ENCOUNTER 2024-03-13 11:18 | Emergency (ER) | payer OTHER ==
[~2024-03-13] VITALS: Ht 182.8 cm; Wt 106.6 kg
[2024-03-13 11:29] VITALS: BP 124/62
[2024-03-13 12:01] LABS: BASO % 0.1 % (0.0-1.0); EOS # 0.4 10*3/uL (0.0-0.4); EOS % 4.5 % (1.0-4.0); HEMATOCRIT 29.2 % (42.0-52.0); LYMPH # 1.1 10*3/uL (1.3-4.4); LYMPH % 11.9 % (27.0-41.0); MEAN CELL VOLUME 77.9 fl (80.0-94.0); MEAN CORPUSCULAR HGB 21.3 pg (27.0-31.0); MEAN CORPUSCULAR HGB CONC 27.4 g/dl (33.0-37.0); MEAN PLATELET VOLUME 10.8 fl (9.6-12.3); MONO # 0.8 10*3/uL (0.1-1.0); MONO % 8.8 % (3.0-9.0); PLATELET COUNT AUTOMATED 139 10*3/uL (130-400); RED BLOOD COUNT 3.75 10*6/uL (4.50-5.90); RED CELL DISTRI WIDTH 23.5 % (0-14.5); WHITE BLOOD COUNT 9.4 10*3/uL (4.8-10.8)
[2024-03-13 12:14] LABS: POTASSIUM 4.1 mmol/L (3.4-5.1); TOTAL PROTEIN 5.4 gm/dL (6.0-8.0)
[2024-03-13] MEDS ORDERED: MAGNESIUM OXIDE 400 MG TAB PO ONE (12:25)
[2024-03-14] MEDS ORDERED: SEPTDS PO (20:44)
== END 2024-03-13 12:46 | disposition home or self-care (01) ==
LOC: ED 11:18
PROVIDERS: Internal Medicine
DX: R07.89 Other chest pain (principal); I25.10 Atherosclerotic heart disease of native coronary artery without angina pectoris; J44.9 Chronic obstructive pulmonary disease, unspecified; E11.9 Type 2 diabetes mellitus without complications; Z79.4 Long term (current) use of insulin; Z86.73 Personal history of transient ischemic attack (TIA), and cerebral infarction without residual deficits; I10 Essential (primary) hypertension; M10.9 Gout, unspecified; I25.2 Old myocardial infarction; I48.91 Unspecified atrial fibrillation; D64.9 Anemia, unspecified; Z88.0 Allergy status to penicillin; Z88.1 Allergy status to other antibiotic agents; Z88.8 Allergy status to other drugs, medicaments and biological substances; Z95.5 Presence of coronary angioplasty implant and graft; Z90.49 Acquired absence of other specified parts of digestive tract; Z98.890 Other specified postprocedural states; F10.10 Alcohol abuse, uncomplicated; Z87.891 Personal history of nicotine dependence

== ENCOUNTER 2024-03-14 14:46 | Emergency (ER) | payer OTHER ==
[~2024-03-14] VITALS: Ht 182.8 cm; Wt 106.1 kg
[2024-03-14 15:21] VITALS: BP 113/61
[2024-03-14 15:55] LABS: BASO % 0.1 % (0.0-1.0); EOS # 0.3 10*3/uL (0.0-0.4); EOS % 3.6 % (1.0-4.0); LYMPH # 1.4 10*3/uL (1.3-4.4); LYMPH % 17.2 % (27.0-41.0); MEAN CELL VOLUME 76.9 fl (80.0-94.0); MEAN CORPUSCULAR HGB 21.4 pg (27.0-31.0); MEAN CORPUSCULAR HGB CONC 27.8 g/dl (33.0-37.0); MEAN PLATELET VOLUME 10.8 fl (9.6-12.3); MONO # 0.8 10*3/uL (0.1-1.0); MONO % 9.4 % (3.0-9.0); NEUT # 5.8 10*3/uL (2.3-7.9); NEUT % 69.1 % (47.0-73.0); PLATELET COUNT AUTOMATED 122 10*3/uL (130-400); RED BLOOD COUNT 3.51 10*6/uL (4.50-5.90); RED CELL DISTRI WIDTH 23.2 % (0-14.5); WHITE BLOOD COUNT 8.3 10*3/uL (4.8-10.8)
[2024-03-14 16:14] LABS: POTASSIUM 3.9 mmol/L (3.4-5.1)
[2024-03-14 16:24] LABS: BILIRUBIN Negative (Negative); BLOOD Negative (Negative); CLARITY Clear (Clear); COLOR Yellow (Yellow); GLUCOSE 3+ (Negative); KETONE Negative (Negative); LEUKO ESTERASE Negative (Negative); NITRITE Negative (Negative); PH 6.5 (4.5-8.0); SPECIFIC GRAVITY 1.015 (1.001-1.030); UROBILINOGEN 0.2 E.U./dl (0.0-1.0)
[2024-03-14 16:35] LABS: RBC 0-2 rbc/hpf (0-2); WBC 0-2 wbc/hpf (0-5)
[2024-03-14] MEDS ORDERED: SEPTDS PO (20:44)
== END 2024-03-14 17:01 | disposition left against medical advice (07) ==
LOC: ED 14:46
PROVIDERS: Nurse Practitioner Family
DX: L03.115 Cellulitis of right lower limb (principal); R06.02 Shortness of breath; Z53.29 Procedure and treatment not carried out because of patient's decision for other reasons; R07.89 Other chest pain; J44.9 Chronic obstructive pulmonary disease, unspecified; I48.91 Unspecified atrial fibrillation; I25.10 Atherosclerotic heart disease of native coronary artery without angina pectoris; I10 Essential (primary) hypertension; E11.9 Type 2 diabetes mellitus without complications; E03.9 Hypothyroidism, unspecified; M10.9 Gout, unspecified; I25.2 Old myocardial infarction; D64.9 Anemia, unspecified; Z88.0 Allergy status to penicillin; Z88.1 Allergy status to other antibiotic agents; Z88.8 Allergy status to other drugs, medicaments and biological substances; Z98.890 Other specified postprocedural states; Z90.49 Acquired absence of other specified parts of digestive tract; Z95.5 Presence of coronary angioplasty implant and graft; F10.10 Alcohol abuse, uncomplicated; Z87.891 Personal history of nicotine dependence; F14.10 Cocaine abuse, uncomplicated; F11.10 Opioid abuse, uncomplicated; Z86.73 Personal history of transient ischemic attack (TIA), and cerebral infarction without residual deficits

== ENCOUNTER → 2024-03-14 | Outpatient (CLI) | payer OTHER | END | disposition home or self-care (01) | LOC: WOUNDCARE 01:45 | PROVIDERS: ATTEND Nurse Practitioner Family | DX: S51.801D Unspecified open wound of right forearm, subsequent encounter (principal); S81.002D Unspecified open wound, left knee, subsequent encounter; E11.622 Type 2 diabetes mellitus with other skin ulcer; L98.491 Non-pressure chronic ulcer of skin of other sites limited to breakdown of skin; E11.40 Type 2 diabetes mellitus with diabetic neuropathy, unspecified; E11.51 Type 2 diabetes mellitus with diabetic peripheral angiopathy without gangrene; E11.22 Type 2 diabetes mellitus with diabetic chronic kidney disease; I12.9 Hypertensive chronic kidney disease with stage 1 through stage 4 chronic kidney disease, or unspecified chronic kidney disease; N18.30 Chronic kidney disease, stage 3 unspecified; E78.5 Hyperlipidemia, unspecified; E03.9 Hypothyroidism, unspecified; J44.9 Chronic obstructive pulmonary disease, unspecified; R26.89 Other abnormalities of gait and mobility; Z87.891 Personal history of nicotine dependence; Z96.641 Presence of right artificial hip joint; Z90.49 Acquired absence of other specified parts of digestive tract; Z98.62 Peripheral vascular angioplasty status; Z89.412 Acquired absence of left great toe; Z89.422 Acquired absence of other left toe(s); Z89.431 Acquired absence of right foot; Z79.4 Long term (current) use of insulin; Z79.82 Long term (current) use of aspirin; Z79.899 Other long term (current) drug therapy; X58.XXXD Exposure to other specified factors, subsequent encounter ==

== ENCOUNTER 2024-03-16 16:13 | Emergency (ER) | payer OTHER | END 2024-03-16 16:39 | disposition left against medical advice (07) | LOC: ED 16:13 | DX: M79.662 Pain in left lower leg (principal); Z53.21 Procedure and treatment not carried out due to patient leaving prior to being seen by health care provider ==

== ENCOUNTER → 2024-03-22 | Outpatient (CLI) | payer OTHER | END | disposition home or self-care (01) | LOC: WOUNDCARE 08:47 | PROVIDERS: ATTEND Nurse Practitioner Family | DX: E11.622 Type 2 diabetes mellitus with other skin ulcer (principal); L97.811 Non-pressure chronic ulcer of other part of right lower leg limited to breakdown of skin; E11.40 Type 2 diabetes mellitus with diabetic neuropathy, unspecified; E11.51 Type 2 diabetes mellitus with diabetic peripheral angiopathy without gangrene; E11.22 Type 2 diabetes mellitus with diabetic chronic kidney disease; I12.9 Hypertensive chronic kidney disease with stage 1 through stage 4 chronic kidney disease, or unspecified chronic kidney disease; N18.30 Chronic kidney disease, stage 3 unspecified; E78.5 Hyperlipidemia, unspecified; E03.9 Hypothyroidism, unspecified; J44.9 Chronic obstructive pulmonary disease, unspecified; R26.89 Other abnormalities of gait and mobility; Z96.641 Presence of right artificial hip joint; Z90.49 Acquired absence of other specified parts of digestive tract; Z98.62 Peripheral vascular angioplasty status; Z89.422 Acquired absence of other left toe(s); Z89.431 Acquired absence of right foot; Z87.891 Personal history of nicotine dependence; Z79.4 Long term (current) use of insulin; Z79.82 Long term (current) use of aspirin; Z79.899 Other long term (current) drug therapy ==

== ENCOUNTER → 2024-03-28 | Outpatient (CLI) | payer OTHER | END | disposition home or self-care (01) | LOC: WOUNDCARE 09:37 | PROVIDERS: ATTEND Nurse Practitioner Family | DX: L02.512 Cutaneous abscess of left hand (principal); S51.811A Laceration without foreign body of right forearm, initial encounter; E11.622 Type 2 diabetes mellitus with other skin ulcer; L97.811 Non-pressure chronic ulcer of other part of right lower leg limited to breakdown of skin; E11.51 Type 2 diabetes mellitus with diabetic peripheral angiopathy without gangrene; E11.40 Type 2 diabetes mellitus with diabetic neuropathy, unspecified; E11.22 Type 2 diabetes mellitus with diabetic chronic kidney disease; I12.9 Hypertensive chronic kidney disease with stage 1 through stage 4 chronic kidney disease, or unspecified chronic kidney disease; N18.30 Chronic kidney disease, stage 3 unspecified; E03.9 Hypothyroidism, unspecified; J44.9 Chronic obstructive pulmonary disease, unspecified; E78.5 Hyperlipidemia, unspecified; R26.89 Other abnormalities of gait and mobility; Z87.891 Personal history of nicotine dependence; Z95.818 Presence of other cardiac implants and grafts; Z96.641 Presence of right artificial hip joint; Z89.431 Acquired absence of right foot; Z90.49 Acquired absence of other specified parts of digestive tract; Z98.62 Peripheral vascular angioplasty status; Z79.82 Long term (current) use of aspirin; Z79.899 Other long term (current) drug therapy; X58.XXXA Exposure to other specified factors, initial encounter; Y93.89 Activity, other specified; Y92.89 Other specified places as the place of occurrence of the external cause; Y99.8 Other external cause status ==

== ENCOUNTER 2024-04-03 14:40 | Emergency (ER) | payer OTHER ==
[~2024-04-03] VITALS: Ht 182.9 cm; Wt 106.6 kg
[2024-04-03 14:55] VITALS: BP 102/76
[2024-04-03] MEDS ORDERED: Albuterol Sulf/Ipratropium 3 ML VIAL NEB ONE (15:40)
[2024-04-03] MEDS ORDERED: SYMB160 INH ×2 (17:54→17:55)
[2024-04-03] MEDS ORDERED: SPIRIVA RESPIMAT4 GM INH ×2 (17:54→17:55)
[2024-04-03] MEDS ORDERED: ALBUTEROL 8 GM INHALER INH ONE (18:00)
== END 2024-04-03 19:28 | disposition home or self-care (01) ==
LOC: ED 14:40
DX: J44.1 Chronic obstructive pulmonary disease with (acute) exacerbation (principal); R07.89 Other chest pain; I25.10 Atherosclerotic heart disease of native coronary artery without angina pectoris; E11.9 Type 2 diabetes mellitus without complications; Z79.4 Long term (current) use of insulin; Z86.73 Personal history of transient ischemic attack (TIA), and cerebral infarction without residual deficits; I10 Essential (primary) hypertension; M10.9 Gout, unspecified; I25.2 Old myocardial infarction; I48.91 Unspecified atrial fibrillation; D64.9 Anemia, unspecified; F10.10 Alcohol abuse, uncomplicated; Z87.891 Personal history of nicotine dependence; F14.10 Cocaine abuse, uncomplicated; Z88.8 Allergy status to other drugs, medicaments and biological substances; Z88.0 Allergy status to penicillin; Z88.1 Allergy status to other antibiotic agents; Z98.890 Other specified postprocedural states; Z95.5 Presence of coronary angioplasty implant and graft; Z90.49 Acquired absence of other specified parts of digestive tract

== ENCOUNTER → 2024-04-05 | Outpatient (CLI) | payer OTHER | END | disposition home or self-care (01) | LOC: WOUNDCARE 00:57 | PROVIDERS: ATTEND Nurse Practitioner Family | DX: L02.512 Cutaneous abscess of left hand (principal); S80.812A Abrasion, left lower leg, initial encounter; E11.622 Type 2 diabetes mellitus with other skin ulcer; L97.811 Non-pressure chronic ulcer of other part of right lower leg limited to breakdown of skin; E11.51 Type 2 diabetes mellitus with diabetic peripheral angiopathy without gangrene; E11.40 Type 2 diabetes mellitus with diabetic neuropathy, unspecified; E11.22 Type 2 diabetes mellitus with diabetic chronic kidney disease; I12.9 Hypertensive chronic kidney disease with stage 1 through stage 4 chronic kidney disease, or unspecified chronic kidney disease; N18.30 Chronic kidney disease, stage 3 unspecified; E03.9 Hypothyroidism, unspecified; J44.9 Chronic obstructive pulmonary disease, unspecified; E78.5 Hyperlipidemia, unspecified; R26.89 Other abnormalities of gait and mobility; Z87.891 Personal history of nicotine dependence; Z95.818 Presence of other cardiac implants and grafts; Z96.641 Presence of right artificial hip joint; Z89.431 Acquired absence of right foot; Z90.49 Acquired absence of other specified parts of digestive tract; Z98.62 Peripheral vascular angioplasty status; Z79.82 Long term (current) use of aspirin; Z79.899 Other long term (current) drug therapy; X58.XXXA Exposure to other specified factors, initial encounter; Y93.89 Activity, other specified; Y92.89 Other specified places as the place of occurrence of the external cause; Y99.8 Other external cause status ==

== ENCOUNTER → 2024-04-18 | Outpatient (CLI) | payer OTHER | END | disposition home or self-care (01) | LOC: WOUNDCARE 08:52 | PROVIDERS: ATTEND Nurse Practitioner Family | DX: L02.512 Cutaneous abscess of left hand (principal); S80.812D Abrasion, left lower leg, subsequent encounter; E11.622 Type 2 diabetes mellitus with other skin ulcer; L97.811 Non-pressure chronic ulcer of other part of right lower leg limited to breakdown of skin; E11.51 Type 2 diabetes mellitus with diabetic peripheral angiopathy without gangrene; E11.40 Type 2 diabetes mellitus with diabetic neuropathy, unspecified; E11.22 Type 2 diabetes mellitus with diabetic chronic kidney disease; I12.9 Hypertensive chronic kidney disease with stage 1 through stage 4 chronic kidney disease, or unspecified chronic kidney disease; N18.30 Chronic kidney disease, stage 3 unspecified; E03.9 Hypothyroidism, unspecified; J44.9 Chronic obstructive pulmonary disease, unspecified; E78.5 Hyperlipidemia, unspecified; R26.89 Other abnormalities of gait and mobility; Z87.891 Personal history of nicotine dependence; Z95.818 Presence of other cardiac implants and grafts; Z96.641 Presence of right artificial hip joint; Z89.431 Acquired absence of right foot; Z90.49 Acquired absence of other specified parts of digestive tract; Z98.62 Peripheral vascular angioplasty status; Z79.82 Long term (current) use of aspirin; Z79.899 Other long term (current) drug therapy; X58.XXXD Exposure to other specified factors, subsequent encounter ==

== ENCOUNTER 2024-04-23 16:39 | Emergency (ER) | payer OTHER ==
[~2024-04-23] VITALS: Ht 175.2 cm; Wt 106.1 kg
[2024-04-23 16:59] VITALS: BP 108/48
[2024-04-23] MEDS ORDERED: Albuterol Sulfate 2.5 MG/3 ML VIAL NEB SCH (17:15)
[2024-04-23] MEDS ORDERED: methylPREDNISolone sod succ 125 MG VIAL IV ONE (17:15)
[2024-04-23 17:28] LABS: BASO # 0.1 10*3/uL (0.0-0.1); BASO % 0.4 % (0.0-1.0); EOS # 0.3 10*3/uL (0.0-0.4); EOS % 2.9 % (1.0-4.0); HEMATOCRIT 36.9 % (42.0-52.0); LYMPH # 2.9 10*3/uL (1.3-4.4); LYMPH % 26.2 % (27.0-41.0); MEAN CELL VOLUME 82.7 fl (80.0-94.0); MEAN CORPUSCULAR HGB 23.5 pg (27.0-31.0); MEAN CORPUSCULAR HGB CONC 28.5 g/dl (33.0-37.0); MEAN PLATELET VOLUME 9.9 fl (9.6-12.3); MONO # 0.8 10*3/uL (0.1-1.0); MONO % 6.9 % (3.0-9.0); PLATELET COUNT AUTOMATED 242 10*3/uL (130-400); RED BLOOD COUNT 4.46 10*6/uL (4.50-5.90); RED CELL DISTRI WIDTH 24.1 % (0-14.5); WHITE BLOOD COUNT 11.2 10*3/uL (4.8-10.8)
[2024-04-23 17:38] LABS: ACT PARTIAL THROMBO TIME 30.2 SECONDS (20.0-32.1)
[2024-04-23 17:52] LABS: POTASSIUM 4.3 mmol/L (3.4-5.1); TOTAL PROTEIN 6.2 gm/dL (6.0-8.0)
[2024-04-23] MEDS ORDERED: MAGNESIUM SULFATE 50 ML IV ONE (18:35)
[2024-04-23] MEDS ORDERED: MULTIVITAMIN CONCENTRATE (IV) 10 ML,Thiamine 100 MG,FOLIC ACID 1 MG in SODIUM CHLORIDE ... IV ONE (18:40)
[2024-04-23] MEDS ORDERED: PREDNISONE20 M1 PO (19:04)
== END 2024-04-23 20:04 | disposition home or self-care (01) ==
LOC: ED 16:39
PROVIDERS: Emergency Medicine
DX: J20.9 Acute bronchitis, unspecified (principal); E11.9 Type 2 diabetes mellitus without complications; I25.10 Atherosclerotic heart disease of native coronary artery without angina pectoris; Z95.5 Presence of coronary angioplasty implant and graft; Z88.1 Allergy status to other antibiotic agents; Z88.0 Allergy status to penicillin; Z79.899 Other long term (current) drug therapy; Z79.82 Long term (current) use of aspirin; Z79.4 Long term (current) use of insulin; Z96.641 Presence of right artificial hip joint; Z90.49 Acquired absence of other specified parts of digestive tract; Z89.432 Acquired absence of left foot; Z89.421 Acquired absence of other right toe(s); Z87.891 Personal history of nicotine dependence

== ENCOUNTER → 2024-04-25 | Outpatient (CLI) | payer OTHER | END | disposition home or self-care (01) | LOC: WOUNDCARE 01:33 | PROVIDERS: ATTEND Nurse Practitioner Family | DX: L02.512 Cutaneous abscess of left hand (principal); S80.812D Abrasion, left lower leg, subsequent encounter; E11.622 Type 2 diabetes mellitus with other skin ulcer; L97.811 Non-pressure chronic ulcer of other part of right lower leg limited to breakdown of skin; E11.51 Type 2 diabetes mellitus with diabetic peripheral angiopathy without gangrene; E11.40 Type 2 diabetes mellitus with diabetic neuropathy, unspecified; E11.22 Type 2 diabetes mellitus with diabetic chronic kidney disease; I12.9 Hypertensive chronic kidney disease with stage 1 through stage 4 chronic kidney disease, or unspecified chronic kidney disease; N18.30 Chronic kidney disease, stage 3 unspecified; E03.9 Hypothyroidism, unspecified; J44.9 Chronic obstructive pulmonary disease, unspecified; E78.5 Hyperlipidemia, unspecified; R26.89 Other abnormalities of gait and mobility; Z87.891 Personal history of nicotine dependence; Z95.818 Presence of other cardiac implants and grafts; Z96.641 Presence of right artificial hip joint; Z89.431 Acquired absence of right foot; Z90.49 Acquired absence of other specified parts of digestive tract; Z98.62 Peripheral vascular angioplasty status; Z79.82 Long term (current) use of aspirin; Z79.899 Other long term (current) drug therapy; X58.XXXD Exposure to other specified factors, subsequent encounter ==

== ENCOUNTER 2024-04-30 13:26 | Emergency (ER) | payer OTHER | END 2024-04-30 18:54 | disposition left against medical advice (07) | LOC: ED 13:26 | DX: R06.02 Shortness of breath (principal); I48.91 Unspecified atrial fibrillation; R03.0 Elevated blood-pressure reading, without diagnosis of hypertension; Z88.0 Allergy status to penicillin; Z88.1 Allergy status to other antibiotic agents; Z88.8 Allergy status to other drugs, medicaments and biological substances; Z53.21 Procedure and treatment not carried out due to patient leaving prior to being seen by health care provider ==

== ENCOUNTER 2024-05-12 09:55 | Emergency (ER) | payer MEDICARE, OTHER ==
[~2024-05-12] VITALS: Wt 104.3 kg
[2024-05-12 10:38] LABS: BASO # 0.1 10*3/uL (0.0-0.1); BASO % 0.5 % (0.0-1.0); EOS # 0.4 10*3/uL (0.0-0.4); EOS % 3.3 % (1.0-4.0); HEMATOCRIT 36.5 % (42.0-52.0); LYMPH # 2.7 10*3/uL (1.3-4.4); LYMPH % 22.7 % (27.0-41.0); MEAN CELL VOLUME 80.2 fl (80.0-94.0); MEAN CORPUSCULAR HGB 23.3 pg (27.0-31.0); MONO # 0.7 10*3/uL (0.1-1.0); MONO % 5.9 % (3.0-9.0); NEUT # 7.9 10*3/uL (2.3-7.9); NEUT % 66.9 % (47.0-73.0); PLATELET COUNT AUTOMATED 216 10*3/uL (130-400); RED BLOOD COUNT 4.55 10*6/uL (4.50-5.90); RED CELL DISTRI WIDTH 21.5 % (0-14.5); WHITE BLOOD COUNT 11.8 10*3/uL (4.8-10.8)
[2024-05-12 10:49] LABS: ACT PARTIAL THROMBO TIME 29.9 SECONDS (20.0-32.1)
[2024-05-12 10:53] LABS: ALKALINE PHOSPHATASE 114 U/L (46-116); BUN 38 mg/dl (9-23); CHLORIDE 112 mmol/L (98-107); POTASSIUM 4.4 mmol/L (3.4-5.1); SGPT/ALT 23 U/L (5-49); TOTAL PROTEIN 5.9 gm/dL (6.0-8.0)
[2024-05-12] MEDS ORDERED: MAGNESIUM OXIDE 400 MG TAB PO ONE (12:15)
[2024-05-12] MEDS ORDERED: SODIUM CHLORIDE 0.9% 100 ML BAG IV ONE (13:35)
[2024-05-12] MEDS ORDERED: IOHEXOL 350 MG/ML 100 ML VIAL IV ONE ×2 (13:35→14:14)
[2024-05-12 13:37] LABS: BILIRUBIN Negative (Negative); BLOOD Negative (Negative); CLARITY Clear (Clear); COLOR Yellow (Yellow); GLUCOSE 2+ (Negative); KETONE Trace (Negative); LEUKO ESTERASE Negative (Negative); NITRITE Negative (Negative); PH 5.5 (4.5-8.0); SPECIFIC GRAVITY 1.015 (1.001-1.030); UROBILINOGEN 0.2 E.U./dl (0.0-1.0)
[2024-05-12 13:49] LABS: RBC 0-2 rbc/hpf (0-2)
[2024-05-12 13:50] LABS: BACTERIA TRACE
[2024-05-12] MEDS ORDERED: SODIUM CHLORIDE 0.9% 100 ML IV ONE (14:14)
[2024-05-12 15:12] VITALS: BP 106/57
[2024-05-13] MEDS ORDERED: NOVOLOG FL100 UNIT/2 SC (17:50)
[2024-05-13] MEDS ORDERED: NOVOLOG FL100 UNIT/2 SQ (17:50)
[2024-05-13] MEDS ORDERED: VITAMIN D350 MCG PO (17:51)
[2024-05-13] MEDS ORDERED: LIPITOR80 MG PO (17:51)
[2024-05-13] MEDS ORDERED: TOPROL XL100 MG PO (17:52)
[2024-05-13] MEDS ORDERED: NESINA PO (17:52)
[2024-05-13] MEDS ORDERED: COSOPT PF EYE1 EACH OP (17:53)
[2024-05-13] MEDS ORDERED: REFRESH PLUS1 EACH OP (17:55)
[2024-05-13] MEDS ORDERED: BRILINTA90 M1 PO (17:56)
[2024-05-13] MEDS ORDERED: SENOKOT8.6 MG PO (17:56)
[2024-05-13] MEDS ORDERED: ENTRESTO 24 MG1 EACH PO (17:57)
[2024-05-13] MEDS ORDERED: ALDACTONE25 M1 PO (17:57)
== END 2024-05-12 18:27 | disposition home or self-care (01) ==
LOC: ED 09:55
PROVIDERS: Internal Medicine
DX: R10.31 Right lower quadrant pain (principal); I10 Essential (primary) hypertension; E78.5 Hyperlipidemia, unspecified; I25.10 Atherosclerotic heart disease of native coronary artery without angina pectoris; E11.9 Type 2 diabetes mellitus without complications; J44.9 Chronic obstructive pulmonary disease, unspecified; Z79.4 Long term (current) use of insulin; Z86.73 Personal history of transient ischemic attack (TIA), and cerebral infarction without residual deficits; M10.9 Gout, unspecified; I25.2 Old myocardial infarction; I48.91 Unspecified atrial fibrillation; D64.9 Anemia, unspecified; Z88.0 Allergy status to penicillin; Z88.1 Allergy status to other antibiotic agents; Z88.8 Allergy status to other drugs, medicaments and biological substances; Z95.5 Presence of coronary angioplasty implant and graft; Z90.49 Acquired absence of other specified parts of digestive tract; Z98.890 Other specified postprocedural states; F10.10 Alcohol abuse, uncomplicated; Z87.891 Personal history of nicotine dependence; F14.10 Cocaine abuse, uncomplicated; F11.10 Opioid abuse, uncomplicated

== ENCOUNTER 2024-05-20 09:36 | Emergency (ER) | payer MEDICARE, OTHER ==
[~2024-05-20] VITALS: Ht 182.8 cm; Wt 110.2 kg
[~2024-05-20 09:36] MED LIST changes: +ALDACTONE25 M1 PO; +BRILINTA90 M1 PO; +COSOPT PF EYE1 EACH OP; +ENTRESTO 24 MG1 EACH PO; +NESINA PO; +NOVOLOG FL100 UNIT/2 SC; +NOVOLOG FL100 UNIT/2 SQ; +REFRESH PLUS1 EACH OP; +SENOKOT8.6 MG PO; +TOPROL XL100 MG PO; +VITAMIN D350 MCG PO
[2024-05-20] MEDS ORDERED: Ondansetron Hydrochloride 4 MG/2 ML VIAL IV ONE (09:55)
[2024-05-20] MEDS ORDERED: Pantoprazole Sodium 40 MG in SODIUM CHLORIDE 0.9% 50 ML IV SCH (09:55)
[2024-05-20 10:05] VITALS: BP 109/53
[2024-05-20 10:36] LABS: BASO % 0.1 % (0.0-1.0); EOS % 0.2 % (1.0-4.0); HEMATOCRIT 28.4 % (42.0-52.0); LYMPH # 1.5 10*3/uL (1.3-4.4); LYMPH % 14.4 % (27.0-41.0); MEAN CELL VOLUME 79.1 fl (80.0-94.0); MEAN CORPUSCULAR HGB 23.7 pg (27.0-31.0); MEAN CORPUSCULAR HGB CONC 29.9 g/dl (33.0-37.0); MEAN PLATELET VOLUME 10.8 fl (9.6-12.3); MONO # 0.6 10*3/uL (0.1-1.0); MONO % 5.9 % (3.0-9.0); NEUT # 8.4 10*3/uL (2.3-7.9); NEUT % 78.9 % (47.0-73.0); PLATELET COUNT AUTOMATED 244 10*3/uL (130-400); RED BLOOD COUNT 3.59 10*6/uL (4.50-5.90); RED CELL DISTRI WIDTH 21.6 % (0-14.5); WHITE BLOOD COUNT 10.6 10*3/uL (4.8-10.8)
[2024-05-20 10:45] LABS: ACT PARTIAL THROMBO TIME 33.7 SECONDS (20.0-32.1)
[2024-05-20 10:55] LABS: POTASSIUM 4.8 mmol/L (3.4-5.1); TOTAL PROTEIN 5.8 gm/dL (6.0-8.0)
[2024-05-20] MEDS ORDERED: MAGNESIUM SULFATE 100 ML IV ONE (11:35)
[2024-05-20] MEDS ORDERED: SODIUM CHLORIDE 0.9% 1,000 ML IV ONE (11:35)
== END 2024-05-20 13:38 | disposition home or self-care (01) ==
LOC: ED 09:36
PROVIDERS: Internal Medicine
DX: R07.89 Other chest pain (principal); I50.9 Heart failure, unspecified; I25.10 Atherosclerotic heart disease of native coronary artery without angina pectoris; J44.9 Chronic obstructive pulmonary disease, unspecified; E11.9 Type 2 diabetes mellitus without complications; Z79.4 Long term (current) use of insulin; Z86.73 Personal history of transient ischemic attack (TIA), and cerebral infarction without residual deficits; M10.9 Gout, unspecified; I25.2 Old myocardial infarction; I48.91 Unspecified atrial fibrillation; I11.0 Hypertensive heart disease with heart failure; D64.9 Anemia, unspecified; Z88.8 Allergy status to other drugs, medicaments and biological substances; Z88.0 Allergy status to penicillin; Z88.1 Allergy status to other antibiotic agents; Z90.49 Acquired absence of other specified parts of digestive tract; Z95.5 Presence of coronary angioplasty implant and graft; Z98.890 Other specified postprocedural states; F10.10 Alcohol abuse, uncomplicated; Z87.891 Personal history of nicotine dependence

== ENCOUNTER → 2024-05-24 | Outpatient (CLI) | payer MEDICARE, OTHER | END | disposition home or self-care (01) | LOC: WOUNDCARE 13:05 | PROVIDERS: ATTEND Nurse Practitioner Family | DX: S80.211A Abrasion, right knee, initial encounter (principal); E11.40 Type 2 diabetes mellitus with diabetic neuropathy, unspecified; E11.51 Type 2 diabetes mellitus with diabetic peripheral angiopathy without gangrene; E11.22 Type 2 diabetes mellitus with diabetic chronic kidney disease; I12.9 Hypertensive chronic kidney disease with stage 1 through stage 4 chronic kidney disease, or unspecified chronic kidney disease; N18.30 Chronic kidney disease, stage 3 unspecified; E03.9 Hypothyroidism, unspecified; J44.9 Chronic obstructive pulmonary disease, unspecified; E78.5 Hyperlipidemia, unspecified; R26.89 Other abnormalities of gait and mobility; Z87.891 Personal history of nicotine dependence; Z95.818 Presence of other cardiac implants and grafts; Z96.641 Presence of right artificial hip joint; Z89.431 Acquired absence of right foot; Z90.49 Acquired absence of other specified parts of digestive tract; Z98.62 Peripheral vascular angioplasty status; Z79.82 Long term (current) use of aspirin; Z79.899 Other long term (current) drug therapy; X58.XXXA Exposure to other specified factors, initial encounter; Y93.89 Activity, other specified; Y92.89 Other specified places as the place of occurrence of the external cause; Y99.8 Other external cause status ==

== ENCOUNTER 2024-05-30 09:15 | Emergency (ER) | payer MEDICARE, OTHER ==
[~2024-05-30] VITALS: Ht 182.8 cm; Wt 106.6 kg
[2024-05-30 09:21] VITALS: BP 113/48
[2024-05-30 10:05] LABS: BASO % 0.3 % (0.0-1.0); EOS # 0.4 10*3/uL (0.0-0.4); EOS % 3.4 % (1.0-4.0); HEMATOCRIT 31.3 % (42.0-52.0); LYMPH # 2.5 10*3/uL (1.3-4.4); LYMPH % 23.2 % (27.0-41.0); MEAN CELL VOLUME 82.6 fl (80.0-94.0); MEAN CORPUSCULAR HGB 23.7 pg (27.0-31.0); MEAN CORPUSCULAR HGB CONC 28.8 g/dl (33.0-37.0); MEAN PLATELET VOLUME 10.9 fl (9.6-12.3); MONO # 0.8 10*3/uL (0.1-1.0); MONO % 6.9 % (3.0-9.0); NEUT # 7.1 10*3/uL (2.3-7.9); NEUT % 65.7 % (47.0-73.0); PLATELET COUNT AUTOMATED 163 10*3/uL (130-400); RED BLOOD COUNT 3.79 10*6/uL (4.50-5.90); WHITE BLOOD COUNT 10.8 10*3/uL (4.8-10.8)
[2024-05-30 10:15] LABS: ACT PARTIAL THROMBO TIME 31.6 SECONDS (20.0-32.1)
[2024-05-30 11:04] LABS: ALKALINE PHOSPHATASE 83 U/L (46-116); BUN 49 mg/dl (9-23); CHLORIDE 106 mmol/L (98-107); POTASSIUM 4.3 mmol/L (3.4-5.1); SGPT/ALT 23 U/L (5-49); TOTAL PROTEIN 5.7 gm/dL (6.0-8.0)
[2024-05-30] MEDS ORDERED: MAGNESIUM OXIDE 400 MG TAB PO ONE (11:15)
== END 2024-05-30 11:28 | disposition home or self-care (01) ==
LOC: ED 09:15
PROVIDERS: Internal Medicine
DX: R07.89 Other chest pain (principal); R00.2 Palpitations; E83.42 Hypomagnesemia; I11.0 Hypertensive heart disease with heart failure; I50.9 Heart failure, unspecified; I25.10 Atherosclerotic heart disease of native coronary artery without angina pectoris; J44.9 Chronic obstructive pulmonary disease, unspecified; Z86.73 Personal history of transient ischemic attack (TIA), and cerebral infarction without residual deficits; M10.9 Gout, unspecified; I25.2 Old myocardial infarction; I48.91 Unspecified atrial fibrillation; D64.9 Anemia, unspecified; F10.10 Alcohol abuse, uncomplicated; Z88.8 Allergy status to other drugs, medicaments and biological substances; Z88.0 Allergy status to penicillin; Z88.1 Allergy status to other antibiotic agents; Z90.49 Acquired absence of other specified parts of digestive tract; Z98.890 Other specified postprocedural states; Z95.5 Presence of coronary angioplasty implant and graft; Z87.891 Personal history of nicotine dependence

== ENCOUNTER → 2024-05-30 | Outpatient (CLI) | payer MEDICARE, OTHER | END | disposition home or self-care (01) | LOC: WOUNDCARE 01:15 | PROVIDERS: ATTEND Nurse Practitioner Primary Care | DX: S80.211D Abrasion, right knee, subsequent encounter (principal); S81.811A Laceration without foreign body, right lower leg, initial encounter; E11.40 Type 2 diabetes mellitus with diabetic neuropathy, unspecified; E11.51 Type 2 diabetes mellitus with diabetic peripheral angiopathy without gangrene; E11.22 Type 2 diabetes mellitus with diabetic chronic kidney disease; I12.9 Hypertensive chronic kidney disease with stage 1 through stage 4 chronic kidney disease, or unspecified chronic kidney disease; N18.30 Chronic kidney disease, stage 3 unspecified; E03.9 Hypothyroidism, unspecified; J44.9 Chronic obstructive pulmonary disease, unspecified; E78.5 Hyperlipidemia, unspecified; R26.89 Other abnormalities of gait and mobility; Z87.891 Personal history of nicotine dependence; Z95.818 Presence of other cardiac implants and grafts; Z96.641 Presence of right artificial hip joint; Z89.431 Acquired absence of right foot; Z90.49 Acquired absence of other specified parts of digestive tract; Z98.62 Peripheral vascular angioplasty status; Z79.82 Long term (current) use of aspirin; Z79.899 Other long term (current) drug therapy; X58.XXXD Exposure to other specified factors, subsequent encounter; X58.XXXA Exposure to other specified factors, initial encounter; Y93.89 Activity, other specified; Y92.89 Other specified places as the place of occurrence of the external cause; Y99.8 Other external cause status ==

== ENCOUNTER 2024-06-24 14:16 | Emergency (ER) | payer OTHER ==
[~2024-06-24] VITALS: Ht 182.8 cm; Wt 90.7 kg
[~2024-06-24 14:16] MED LIST changes: +AIRSUPRA 90-810.7 GM INH; +INSULIN LI100 UNIT/3 SC; +LOVAZA PO; +TRULICITY0.75 MG/0. SC; -TRULICITY4.5 MG/0.5 SQ
[2024-06-24] MEDS ORDERED: MORPHINE Sulfate 2 MG/ML SYR IV ONE (14:25)
[2024-06-24] MEDS ORDERED: Ondansetron Hydrochloride 4 MG/2 ML VIAL IV ONE (14:25)
[2024-06-24 14:27] VITALS: BP 116/53
[2024-06-24] MEDS ORDERED: IOHEXOL 300 MG/ML 100 ML VIAL IV ONE (14:35)
[2024-06-24 14:39] LABS: BASO # 0.1 10*3/uL (0.0-0.1); BASO % 0.6 % (0.0-1.0); EOS # 0.3 10*3/uL (0.0-0.4); EOS % 3.9 % (1.0-4.0); HEMATOCRIT 35.6 % (42.0-52.0); LYMPH # 1.8 10*3/uL (1.3-4.4); MEAN CELL VOLUME 77.7 fl (80.0-94.0); MEAN CORPUSCULAR HGB 23.4 pg (27.0-31.0); MEAN CORPUSCULAR HGB CONC 30.1 g/dl (33.0-37.0); MEAN PLATELET VOLUME 10.3 fl (9.6-12.3); MONO # 0.6 10*3/uL (0.1-1.0); NEUT # 5.3 10*3/uL (2.3-7.9); NEUT % 66.1 % (47.0-73.0); PLATELET COUNT AUTOMATED 230 10*3/uL (130-400); RED BLOOD COUNT 4.58 10*6/uL (4.50-5.90); RED CELL DISTRI WIDTH 20.4 % (0-14.5)
[2024-06-24 15:04] LABS: POTASSIUM 4.2 mmol/L (3.4-5.1); TOTAL PROTEIN 6.3 gm/dL (6.0-8.0)
[2024-06-24] MEDS ORDERED: Ondansetron4 MG PO (17:35)
[2024-06-24] MEDS ORDERED: METHOCARBAMOL750 M1 PO (17:35)
== END 2024-06-24 18:04 | disposition home or self-care (01) ==
LOC: ED 14:16
PROVIDERS: Emergency Medicine
DX: R10.31 Right lower quadrant pain (principal); J44.9 Chronic obstructive pulmonary disease, unspecified; E78.5 Hyperlipidemia, unspecified; E11.22 Type 2 diabetes mellitus with diabetic chronic kidney disease; I13.0 Hypertensive heart and chronic kidney disease with heart failure and stage 1 through stage 4 chronic kidney disease, or unspecified chronic kidney disease; N18.9 Chronic kidney disease, unspecified; I50.9 Heart failure, unspecified; I48.91 Unspecified atrial fibrillation; I25.10 Atherosclerotic heart disease of native coronary artery without angina pectoris; Z86.73 Personal history of transient ischemic attack (TIA), and cerebral infarction without residual deficits; M10.9 Gout, unspecified; D64.9 Anemia, unspecified; F10.10 Alcohol abuse, uncomplicated; F14.10 Cocaine abuse, uncomplicated; F11.10 Opioid abuse, uncomplicated; Z88.1 Allergy status to other antibiotic agents; Z88.0 Allergy status to penicillin; Z88.8 Allergy status to other drugs, medicaments and biological substances; Z98.890 Other specified postprocedural states; Z90.49 Acquired absence of other specified parts of digestive tract; Z95.5 Presence of coronary angioplasty implant and graft; Z87.891 Personal history of nicotine dependence

== ENCOUNTER 2024-06-24 21:04 | Emergency (ER) | payer OTHER ==
[~2024-06-24] VITALS: Ht 182.8 cm; Wt 90.7 kg
[~2024-06-24 21:04] MED LIST changes: +METHOCARBAMOL750 M1 PO; +Ondansetron4 MG PO
[2024-06-24 21:17] VITALS: BP 124/88
== END 2024-06-24 22:05 | disposition home or self-care (01) ==
LOC: ED 21:04
DX: Z76.5 Malingerer [conscious simulation] (principal); F10.10 Alcohol abuse, uncomplicated; F14.10 Cocaine abuse, uncomplicated; F11.10 Opioid abuse, uncomplicated; Z88.8 Allergy status to other drugs, medicaments and biological substances; Z88.0 Allergy status to penicillin; Z88.1 Allergy status to other antibiotic agents; Z90.49 Acquired absence of other specified parts of digestive tract; Z95.5 Presence of coronary angioplasty implant and graft; Z98.890 Other specified postprocedural states; Z87.891 Personal history of nicotine dependence

== ENCOUNTER 2024-07-03 12:10 | Emergency (ER) | payer OTHER ==
[~2024-07-03] VITALS: Ht 182.8 cm; Wt 104.3 kg
[~2024-07-03 12:10] MED LIST changes: +DULCOLAX STOOL100 M1 PO
[2024-07-03 12:19] VITALS: BP 105/47
[2024-07-03] MEDS ORDERED: ACETAMINOPHEN 325 MG TAB PO ONE (16:25)
== END 2024-07-03 16:43 | disposition home or self-care (01) ==
LOC: ED 12:10
DX: R04.0 Epistaxis (principal); J44.9 Chronic obstructive pulmonary disease, unspecified; I48.91 Unspecified atrial fibrillation; E11.9 Type 2 diabetes mellitus without complications; N17.9 Acute kidney failure, unspecified; F10.10 Alcohol abuse, uncomplicated; F14.10 Cocaine abuse, uncomplicated; F11.10 Opioid abuse, uncomplicated; Z87.891 Personal history of nicotine dependence; Z88.8 Allergy status to other drugs, medicaments and biological substances; Z88.0 Allergy status to penicillin; Z88.1 Allergy status to other antibiotic agents; Z90.49 Acquired absence of other specified parts of digestive tract; Z95.5 Presence of coronary angioplasty implant and graft; Z98.890 Other specified postprocedural states

== ENCOUNTER 2024-07-08 02:36 | Emergency (ER) | payer OTHER ==
[2024-07-08 02:39] VITALS: BP 116/69
== END 2024-07-08 03:02 | disposition home or self-care (01) ==
LOC: ED 02:36
DX: Z48.01 Encounter for change or removal of surgical wound dressing (principal); I25.10 Atherosclerotic heart disease of native coronary artery without angina pectoris; J44.9 Chronic obstructive pulmonary disease, unspecified; E11.9 Type 2 diabetes mellitus without complications; Z79.4 Long term (current) use of insulin; Z86.73 Personal history of transient ischemic attack (TIA), and cerebral infarction without residual deficits; I10 Essential (primary) hypertension; M10.9 Gout, unspecified; I25.2 Old myocardial infarction; I48.91 Unspecified atrial fibrillation; D64.9 Anemia, unspecified; F10.10 Alcohol abuse, uncomplicated; F14.10 Cocaine abuse, uncomplicated; F11.10 Opioid abuse, uncomplicated; Z88.0 Allergy status to penicillin; Z88.1 Allergy status to other antibiotic agents; Z88.8 Allergy status to other drugs, medicaments and biological substances; Z98.890 Other specified postprocedural states; Z95.5 Presence of coronary angioplasty implant and graft; Z90.49 Acquired absence of other specified parts of digestive tract; Z87.891 Personal history of nicotine dependence

== ENCOUNTER 2024-07-19 03:04 | Emergency (ER) | payer OTHER ==
[~2024-07-19] VITALS: Ht 180.3 cm; Wt 108.9 kg
[2024-07-19 03:09] VITALS: BP 137/81
[2024-07-19 03:28] LABS: BASO % 0.4 % (0.0-1.0); EOS # 0.8 10*3/uL (0.0-0.4); EOS % 9.9 % (1.0-4.0); HEMATOCRIT 26.2 % (42.0-52.0); LYMPH # 1.8 10*3/uL (1.3-4.4); LYMPH % 22.1 % (27.0-41.0); MEAN CELL VOLUME 78.2 fl (80.0-94.0); MEAN CORPUSCULAR HGB CONC 29.4 g/dl (33.0-37.0); MEAN PLATELET VOLUME 10.5 fl (9.6-12.3); MONO # 0.8 10*3/uL (0.1-1.0); MONO % 10.1 % (3.0-9.0); NEUT # 4.6 10*3/uL (2.3-7.9); NEUT % 57.3 % (47.0-73.0); PLATELET COUNT AUTOMATED 286 10*3/uL (130-400); RED BLOOD COUNT 3.35 10*6/uL (4.50-5.90); WHITE BLOOD COUNT 8.1 10*3/uL (4.8-10.8)
[2024-07-19 03:51] LABS: TOTAL PROTEIN 5.9 gm/dL (6.0-8.0)
[2024-07-19] MEDS ORDERED: INSULIN REGULAR, HUMAN 1 UNIT/0.01 ML SC ONE (04:00)
[2024-07-19] MEDS ORDERED: MAGNESIUM OXIDE 400 MG TAB PO ONE (04:00)
[2024-07-21] MEDS ORDERED: OMNICEF300 MG PO (14:08)
== END 2024-07-19 06:02 | disposition home or self-care (01) ==
LOC: ED 03:04
PROVIDERS: Internal Medicine
DX: R07.89 Other chest pain (principal); E83.42 Hypomagnesemia; E44.1 Mild protein-calorie malnutrition; H92.03 Otalgia, bilateral; H57.89 Other specified disorders of eye and adnexa; E11.22 Type 2 diabetes mellitus with diabetic chronic kidney disease; I12.9 Hypertensive chronic kidney disease with stage 1 through stage 4 chronic kidney disease, or unspecified chronic kidney disease; N18.9 Chronic kidney disease, unspecified; N17.9 Acute kidney failure, unspecified; I48.91 Unspecified atrial fibrillation; D63.1 Anemia in chronic kidney disease; I25.2 Old myocardial infarction; Z86.73 Personal history of transient ischemic attack (TIA), and cerebral infarction without residual deficits; J44.9 Chronic obstructive pulmonary disease, unspecified; I25.10 Atherosclerotic heart disease of native coronary artery without angina pectoris; F10.10 Alcohol abuse, uncomplicated; F14.10 Cocaine abuse, uncomplicated; F11.10 Opioid abuse, uncomplicated; Z87.891 Personal history of nicotine dependence; Z68.1 Body mass index [BMI] 19.9 or less, adult; Z88.1 Allergy status to other antibiotic agents; Z88.0 Allergy status to penicillin; Z88.8 Allergy status to other drugs, medicaments and biological substances; Z90.49 Acquired absence of other specified parts of digestive tract; Z98.890 Other specified postprocedural states; Z95.5 Presence of coronary angioplasty implant and graft